=== PATIENT | female | born 1970 | race Caucasian/White ===

== ENCOUNTER → 2017-12-12 14:52 | Outpatient (CLI) | payer OTHER, SELFPAY ==
--- NOTE | 2017-12-12 | CA_ITS ---
PROCEDURE: 2-D M-mode and color Doppler study INDICATIONS FOR THE TEST: Chest pain+ COPD Heart Murmur+ Tobacco Smoking Palpitations+ Fatigue+ Syncope Edema+ Hypertension+Diabetes Mellitus Rheumatic Fever SOB+ALMARAZ Obesity Hyperlipidemia Family History HD+ Additional History PATIENT INFORMATION HEIGHT: 63 WEIGHT: 220 GENDER: Female B/P: 134/81 2-D/M-MODE INTERPRETATION: 2-D MEASUREMENTS OBSERVED VALUES IN CMS Right Ventricular Dimension (RVDd) 2.1 Interventricular Septum (Thickness)(IVsd) 0.8 Left Ventricular Internal Dimensions(LVIDd) 5.0 Left Ventricular Posterior Wall (Thickness)(LVPWd) 0.8 Aortic Root 3.0 Aortic Cusp Separation 2.0 Left Atrial Dimensions (LAD) 2.9 2D 1. Left atrium is mildly enlarged, left ventricle is normal size, there is mild qualitative concentric left ventricular hypertrophy present, visually estimated ejection fraction 55% with no obvious regional wall motion abnormality. 2. The right atrium and right ventricle are normal size and contractility. 3. The aortic valve is minimally thickened and fibrosed. 4. The mitral and tricuspid valvular grossly normal. 5. The pulmonic valve is poorly visualized. 6. No significant pericardial effusion noted. DOPPLER INTERROGATION: Doppler interrogation of the aortic, mitral and tricuspid valvular presence of mild aortic, mild mitral and tricuspid regurgitation, tricuspid and jet velocity insufficient for calculation of the right ventricular systolic pressure, Doppler evidence of impaired LV relaxation seen. CONCLUSION: 1. Mildly enlarged left atrium, normal left ventricular size, mild qualitative concentric left ventricular hypertrophy, visually estimated ejection fraction 55% with no obvious regional wall motion abnormality. Doppler evidence of impaired LV relaxation seen. 2. Mild aortic, mild mitral and tricuspid regurgitation. 3. No significant pericardial effusion noted.
== END ==
PROVIDERS: PCP Nurse Practitioner; Visit Provider Nurse Practitioner
DX: R60.0 Localized edema (principal); R06.02 Shortness of breath
CPT/HCPCS: 93306

== ENCOUNTER 2018-01-04 08:59 | Emergency (ER) | payer OTHER, SELFPAY ==
[2018-01-04 09:03] VITALS: BP 142/83; PULSE 75; RESP 18; TEMP 36.8; O2SAT 98; BMI 38.0
--- NOTE | 2018-01-04 09:09 | HMH.EDGENADL ---
ED Disposition Clinical Impression: Left leg DVT Qualifiers: Affected thrombotic vein of extremity: femoral Chronicity: acute Qualified Code(s): I82.412 - Acute embolism and thrombosis of left femoral vein Acute allergic reaction Qualifiers: Encounter type: initial encounter Qualified Code(s): T78.40XA - Allergy, unspecified, initial encounter Disposition: Home, Self-Care Condition on Discharge: Good Instructions: DI for Deep Vein Thrombosis, DI for General Allergic Reactions Additional Instructions: Go to Dr. Weldon's office now to get prescription and voucher for Xarelto and fill prescription and begin treatment immediately. Follow-up with Dr. Weldon, arrange follow-up appointment when you go to their office today. Additional instructions for ALLERGIC REACTION: See your physician as soon as possible for further evaluation. Return immediately if severe intolerable rash or itching, trouble breathing, or faintness. Prescriptions: Famotidine [Pepcid 20mg Tablet] 20 mg PO BID 5 Days #10 tab hydrOXYzine pamoate [Hydroxyzine Pamoate] 50 mg PO Q6H 5 Days #20 cap predniSONE [Prednisone 20mg Tab] 20 mg PO BID #10 tab Referrals: Mary Merida APRN [Primary Care Provider] - - Critical Care Critical Care Time: No Attestation: On 01/04/18, the high probability of a clinically significant, sudden or life threatening deterioration of the following system(s) required my full and direct attention, intervention and personal management. The time I documented below is in addition to time spent performing reported procedures but includes the following listed in this critical care notation. Medical Decision Making - Loi Inquiry Pt receiving controlled substance: No Vital Signs: 01/04/18 09:03 Temperature 98.3 F Temperature Source Oral Pulse Rate [Right Brachial] 75 Respiratory Rate 18 Blood Pressure [Right Arm] 142/83 Blood Pressure Mean [Right Arm] 102 Blood Pressure Source [Right Arm] Automatic Cuff Blood Pressure Position [Right Arm] Sitting 02 Sat by Pulse Oximetry 98 Oxygen Delivery Method Room Air - Lab Data Lab Results 01/04/18 09:42: WBC 8.3, RBC 4.55, Hgb 12.4, Hct 38.4, MCV 84.5, MCH 27.3, MCHC 32.3, RDW 13.9, Plt Count 411, MPV 7.7, Neut % (Auto) 72.2, Lymph % (Auto) 16.8, [place] % (Auto) 4.6, Eos % (Auto) 5.9, Baso % (Auto) 0.5, Neut # (Auto) 6.0, Lymph # (Auto) 1.4, [place] # (Auto) 0.4, Eos # (Auto) 0.5 H, Baso # (Auto) 0.0 01/04/18 09:42: Sodium 137, Potassium 3.4 L, Chloride 100, Carbon Dioxide 30, Anion Gap 10.4, BUN 13, Creatinine 0.83, Estimated Creat Clear 130, Estimated GFR 74, Est GFR ( Amer) 90, Glucose 105, Calcium 8.8, Total Bilirubin 0.2, AST 19, ALT 29, Alkaline Phosphatase 104, Total Protein 8.0, Albumin 3.2 L, Globulin 4.8 H, Albumin/Globulin Ratio 0.7 L Result diagrams: 01/04/18 09:42 01/04/18 09:42 Orders (Tests/Meds): ED MEDICATIONS Discontinued Medications Generic Name Dose Route Start Last Admin Trade Name Niloq PRN Reason Stop Dose Admin Diphenhydramine HCl 25 mg 01/04/18 09:32 01/04/18 10:01 Benadryl 50mg/1ml Vial IV 01/04/18 09:33 25 mg ONCE ONE Administration Famotidine 20 mg 01/04/18 09:32 01/04/18 10:01 Pepcid 20mg/2ml Vial IV 01/04/18 09:33 20 mg ONCE ONE Administration Methylprednisolone Sodium Succinate 125 mg 01/04/18 09:32 01/04/18 10:01 Solu-Medrol 125mg/2ml Vial IV 01/04/18 09:33 125 mg ONCE ONE Administration - US Data US Images: Lower Extremity Findings Narrative: As per [facility] procedure, ultrasound report received from geology technician: Positive for DVT from superficial femoral down to calf veins, posterior tibial. There is some flow around the clot, appears to be partial obstruction. Medical Decision Narrative: 9:25 AM: Patient now has a similar sensation on the skin of her cheeks bilaterally. Cheeks appear flushed. IV and allergic reaction treatment ordered. 10:40 AM: Discussed with Dr. Wilson
--- NOTE | 2018-01-04 09:29 | NVE_ITS ---
Venous Exam Indications: 729.81 Swelling of limb. IMPRESSIONS 1. There is no evidence of significant Reflux. 2. Deep vein thrombosis involving the left femoral vein, left popliteal vein, Left posterior tib, and Left gastrocnemius Left lower extremity venous duplex evaluation. Doppler flow study including spectral analysis, color and carbajal scale imaging. Location: Emergency department. Patient status: Emergency department. CRITICAL FINDINGS - Reported to: VINCENZO - Read back and verified. - 01/04/18 - 1015 - DVT Tables: Venous flow and imaging: + + + + Location Overall Flow properties + + + + Left common femoral Patent Normal phasicity; spontaneous; normal augmentation; compressible + + + + Left saphenofemoral Patent Compressible junction + + + + Left profunda femoral Patent Compressible + + + + Left femoral Partially occluded Diminished phasicity; diminished spontaneity; diminished augmentation; partially compressible + + + + Left greater saphenous Patent Normal phasicity; spontaneous; normal augmentation; compressible + + + + Left popliteal Partially occluded Diminished phasicity; diminished spontaneity; diminished augmentation; partially compressible + + + + Left posterior tibial Partially occluded Partially compressible + + + + Left peroneal Patent Compressible + + + + Left gastrocnemius Partially occluded Partially compressible + + + + Left soleal Patent Compressible + + + + (Report amended ) Electronically signed by: Luis Antonio Gardner [id number]
[2018-01-04 09:53] LABS: Basophils % 0.5 % (0.1-2.0); Eosinophils # 0.5 K/mm3 (0.0-0.4); Eosinophils % 5.9 % (0.1-12.0); Hematocrit 38.4 % (37.0-47.0); Hemoglobin 12.4 g/dL (12.2-16.2); Lymphocytes # 1.4 K/mm3 (0.7-4.5); Lymphocytes % 16.8 K/mm3 (10-50); Mean Corpuscular HGB Conc 32.3 g/dL (31.8-35.4); Mean Corpuscular Hemoglobin 27.3 pg (27.0-31.2); Mean Corpuscular Volume 84.5 fl (81-99); Mean Platelet Volume 7.7 fl (7.4-10.4); Monocytes # 0.4 K/mm3 (0.1-1.0); Monocytes % 4.6 % (1.7-9.3); Neutrophils % 72.2 % (37.0-80.0); Platelet Count 411 K/mm3 (142-424); Red Blood Count 4.55 M/mm3 (4.20-5.40); Red Cell Distribution Width 13.9 % (11.5-17.5); White Blood Count 8.3 K/mm3 (4.8-10.8)
[2018-01-04 10:05] LABS: Alanine Aminotransferase 29 U/L (12-78); Albumin Level 3.2 gm/dL (3.4-5.0); Anion Gap 10.4 mEq/L (5-15); Aspartate Amino Transferase 19 U/L (15-37); Bilirubin,Total 0.2 mg/dL (0.2-1.0); Blood Urea Nitrogen 13 mg/dL (7-18); Calcium 8.8 mg/dL (8.5-10.1); Carbon Dioxide 30 mmol/L (21.0-32.0); Chloride 100 mmol/L (98-107); Creatinine Clearance Estimated 130 mL/min (0-300); Creatinine,Serum 0.83 mg/dL (0.55-1.02); Estimated Glomerular Filt Rate 74 ml/min (>60); GFR (African American) 90 ML/MIN (>60); Globulin 4.8 gm/dl (1.3-3.2); Glucose 105 mg/dL (74-106); Potassium 3.4 mmoL/L (3.5-5.1); Sodium 137 mmol/L (136-145)
[2018-01-04 10:06] LABS: Albumin/Globulin Ratio 0.7 (1.1-1.8); Alkaline Phosphatase 104 U/L (46-116)
[2018-01-04 11:00] VITALS: BP 142/83; PULSE 75; RESP 16; TEMP 36.8; O2SAT 97
== END 2018-01-04 11:02 | disposition home or self-care (01) ==
PROVIDERS: Emergency Provider Emergency Medicine; PCP Nurse Practitioner
DX: I82.412 Acute embolism and thrombosis of left femoral vein (principal); T78.40XA Allergy, unspecified, initial encounter; Z88.0 Allergy status to penicillin; Z88.2 Allergy status to sulfonamides; Z88.7 Allergy status to serum and vaccine
CPT/HCPCS: 80053; 85025; 93971; 96374; 96375; 99283

== ENCOUNTER → 2018-03-25 14:19 | Outpatient (CLI) | payer OTHER, SELFPAY | PROVIDERS: PCP Nurse Practitioner Family; Visit Provider Nurse Practitioner Family | DX: G47.30 Sleep apnea, unspecified (principal); R06.83 Snoring | CPT/HCPCS: 95806 ==

== ENCOUNTER → 2018-05-21 12:09 | Outpatient (CLI) | payer OTHER, SELFPAY ==
--- NOTE | 2018-05-21 12:10 | XR_ITS ---
XR chest 2V HISTORY: ITS.REASON: SOA ORDERING PHYSICIAN: Jenelle Sue PATIENT AGE: 48 years COMPARISON: None FINDINGS: The cardiomediastinal silhouette and pulmonary vascularity are within normal limits. Patchy density is present in the right perihilar region suspicious for infiltrate in the superior segment of the right lower lobe. The remaining lungs are clear. No acute bony anomalies. IMPRESSION: Right lower lobe pneumonia
== END ==
PROVIDERS: PCP Nurse Practitioner Family; Visit Provider Nurse Practitioner Family
DX: R06.00 Dyspnea, unspecified (principal)
CPT/HCPCS: 71046

== ENCOUNTER 2018-05-22 10:33 | Inpatient (IN) ==
--- NOTE | 2018-05-22 10:54 | Emergency Department Note ---
ED Disposition Clinical Impression: Anemia Qualifiers: Anemia type: unspecified type Qualified Code(s): D64.9 - Anemia, unspecified Disposition: Still a Patient Condition on Discharge: Good Referrals: Jenelle Sue APRN [Primary Care Provider] - - Critical Care Critical Care Time: No Attestation: On , the high probability of a clinically significant, sudden or life threatening deterioration of the following system(s) required my full and direct attention, intervention and personal management. The time I documented below is in addition to time spent performing reported procedures but includes the following listed in this critical care notation. Medical Decision Making - Loi Inquiry Pt receiving controlled substance: No Loi was queried for this patient: Yes Reference #:: [id number] Comment: 8 rxs. last rx gabapentin Vital Signs: 05/22/18 10:33 05/22/18 11:03 05/22/18 11:30 Temperature 98.2 F Temperature Source Oral Pulse Rate [Right Brachial] 69 68 70 Respiratory Rate 18 20 18 Blood Pressure [Right Arm] 111/79 135/69 135/69 Blood Pressure Mean [Right Arm] 89 91 91 Blood Pressure Source [Right Arm] Automatic Cuff Automatic Cuff Automatic Cuff Blood Pressure Position [Right Arm] Supine Sitting Supine 02 Sat by Pulse Oximetry 96 98 100 Oxygen Delivery Method Room Air Room Air Room Air 05/22/18 12:20 Temperature Temperature Source Pulse Rate [Right Brachial] 68 Respiratory Rate 18 Blood Pressure [Right Arm] 136/68 Blood Pressure Mean [Right Arm] 90 Blood Pressure Source [Right Arm] Automatic Cuff Blood Pressure Position [Right Arm] Supine 02 Sat by Pulse Oximetry 100 Oxygen Delivery Method Room Air - Lab Data Lab Results 05/22/18 10:45: WBC 8.8, RBC 3.02 L, Hgb 7.1 L*, Hct 23.5 L*, MCV 77.7 L, MCH 23.3 L, MCHC 30.0 L, RDW 13.9, Plt Count 494 H, MPV 7.4, Neut % (Auto) 61.6, Lymph % (Auto) 30.7, Clark % (Auto) 3.5, Eos % (Auto) 3.4, Baso % (Auto) 0.8, Neut # (Auto) 5.4, Lymph # (Auto) 2.7, Clark # (Auto) 0.3, Eos # (Auto) 0.3, Baso # (Auto) 0.1 05/22/18 10:45: Sodium 138, Potassium 3.3 L, Chloride 102, Carbon Dioxide 29, Anion Gap 10.3, BUN 11, Creatinine 0.96, Estimated Creat Clear 114, Estimated GFR 62, Est GFR ( Amer) 75, Glucose 106, Calcium 8.7, Total Bilirubin 0.2 , AST 18, ALT 38, Alkaline Phosphatase 106, Total Protein 7.7, Albumin 3.5, Globulin 4.2 H, Albumin/Globulin Ratio 0.8 L 05/22/18 10:45: Lactate 0.7 05/22/18 11:35: Stool Occult Blood Negative 05/22/18 11:35: Blood Type A Positive, Antibody Screen Negative Result diagrams: 05/22/18 10:45 05/22/18 10:45 Orders (Tests/Meds): ED MEDICATIONS Discontinued Medications Generic Name Dose Route Start Last Admin Trade Name Freq PRN Reason Stop Dose Admin Iopamidol 75 ml 05/22/18 11:13 05/22/18 11:15 [id number]; 75ml Vial IV 05/22/18 11:14 75 ml ONCE ONE Administration Sodium Chloride 50 ml 05/22/18 11:13 05/22/18 11:15 Rad-Ns 50ml Vial IV 05/22/18 11:14 50 ml ONCE ONE Administration Sodium Chloride 10 ml 05/22/18 11:13 05/22/18 11:15 Rad-Saline Flush 10ml Syringe IV 05/22/18 11:14 10 ml ONCE ONE Administration ORDERS Category Date Time Status Peripheral Smear Review Stat Lab 05/22/18 12:28 Ordered Troponin I Stat Lab 05/22/18 10:45 Received UA [Urinalysis and Microscopic] Stat Lab 05/22/18 12:15 Received Blood Culture Stat Micro 05/22/18 10:45 Received - CT Data CT Scan: Chest Time Received: 11:[address] Reviewed: Yes: I have viewed the radiologist's interpretation Preliminary Findings: Normal/NAD - US Data US Images: Lower Extremity Findings Narrative: As per [facility] procedure, ultrasound report received from preventative maintenance technician: Negative for DVT - ECG Data Tracing #1 EKG interpreted by Freddy Oreilly MD: Rhythm: sinus Rate: [address] [place]: normal Ectopy: none Conduction: normal ST Segment Changes: none T Wave Changes: none Q Waves: none No evidence of acute ischemia or injury Normal electrocardiogram - Physician Consults Physician Consulted: Jenelle Sue NP for Dr. Kruse Time: 12:27 Reason -: Admission Comment/Response: Agrees to admit the patient to the hospital. We discussed the patient's clinical information, including history, exam, laboratory and radiology results and ED course. Per hospital procedure, I will write temporary bridge inpatient orders on the patient. Specific orders requested by the admitting physician: Peripheral blood smear. Transfuse 2 units packed red blood cells. She will order autoimmune testing and anemia testing General Adult HPI - General Chief complaint: Shortness of Breath/Dyspnea Stated complaint: SOA Time Seen by Provider: 05/22/18 11:29 Mode of Arrival: Ambulatory Limitations: No Limitations Description of Symptoms (Recalled from ER Triage Doc. by RN): Pt reports ALMARAZ x3- 4 days. Pt reports if she is sitting still she is not SOA just when up moving around. Pt also reports swelling of LLE x1 week. LLE appears to be larger than RLE in calf area, no pitting edema noted - History of Present Illness HPI narrative: Dyspnea on exertion 3-4 days. Increased left leg swelling for couple of days. History of a DVT in that leg in December. Currently on Xarelto. Saw PCP yesterday for the same and was sent to the emergency room. Left the emergency room without being seen. Had an outpatient chest x-ray yesterday that was read as showing a pneumonia in the left lung. Slight cough due to allergies. No fever. Does not feel like she has a URI. Denies hematemesis, melena, hematochezia. She has had a hysterectomy, does not have menses. - Related Data Home Medications Medication Instructions Recorded Confirmed Esomeprazole Magnesium [Nexium] 40 mg PO DAILY 03/13/18 05/22/18 Gabapentin [Gabapentin 800mg Tab] 800 mg PO HS 03/13/18 05/22/18 Hydrocodone/Acetaminophen [[place] 1 each PO Q8HP PRN 03/13/18 05/22/18 10-325 Tablet] Losartan/Hydrochlorothiazide 1 each PO DAILY 03/13/18 05/22/18 [Hyzaar 100-25 Tablet] PARoxetine HCl [Paxil] 20 mg PO DAILY 03/13/18 05/22/18 Rivaroxaban [Xarelto] 20 mg PO DAILY 03/13/18 05/22/18 Calcium Carbonate/Vitamin D3 1 each PO DAILY 05/22/18 05/22/18 [Calcium 500 + Vit D Caplet] Magnesium Oxide [Magnesium] 400 mg PO DAILY 05/22/18 05/22/18 Allergies Allergy/AdvReac Type Severity Reaction Status Date / Time gum mastic Allergy Unknown Verified 05/21/18 15:43 [From MASTISOL ADHESIVE] measles, mumps, and rubella Allergy Unknown Verified 05/21/18 15:43 vaccine [MEASLES, MUMPS, AND RUBELLA VACCINE] methyl salicylate Allergy Unknown Verified 05/21/18 15:43 [From MASTISOL ADHESIVE] Penicillins [PENICILLINS] Allergy Unknown Verified 05/21/18 15:43 storax Allergy Unknown Verified 05/21/18 15:43 [From MASTISOL ADHESIVE] Sulfa (Sulfonamide Allergy Unknown Verified 05/21/18 15:43 Antibiotics) [SULFA (SULFONAMIDE ANTIBIOTICS)] sumatriptan [From IMITREX] Allergy Unknown Verified 05/21/18 15:43 adhesive AdvReac Mild Rash Verified 05/21/18 15:43 [facility] History I have reviewed the patient's past medical history: Yes Medical History: Reports:: MRSA Denies:: Cancer, Diabetes Mellitus Type 1, Diabetes Mellitus Type 2, Internal Pacemaker Comment: blood clots in L leg Other Surgeries: No: Pacemaker Amputation: No - Social History Smoking Status: Never smoker Alcohol Intake: never Substance Use Type: denies use Occupational Status: employed Housing: house Household Members: spouse - Psychiatric History Expresses thoughts of harming self/others: None Suicide Plan Description: No Plan ROS Obtained: Yes All systems reviewed & no additional complaints - Constitutional Constitutional: Denies fever(s) - ENT Ears, Nose, Mouth, and Throat: Reports nasal discharge - Cardiovascular Cardiovascular: Denies chest pain - Respiratory Respiratory: Yes dyspnea on exertion, No coughing up blood - Gastrointestinal Gastrointestingal: Denies: abdominal pain, vomiting blood, bright red blood in stools, black, tarry stools, vomiting Physical Exam - General General appearance: alert, in no apparent distress - Head Head exam: atraumatic, normocephalic, normal inspection - Eye Eye exam: Present: normal appearance, PERRL, EOMI - ENT ENT exam: Present: mucous membranes moist - Neck Neck exam: Present: normal inspection, full ROM, trachea midline. Absent: meningismus, lymphadenopathy - Chest Chest inspection: Present: normal inspection, symmetric chest wall rise. Absent : tenderness - Respiratory Respiratory exam: Present: normal lung sounds bilaterally. Absent: respiratory distress - Cardiovascular Cardiovascular exam: Present: regular rate, normal rhythm. Absent: JVD - Abdominal Exam Abdominal exam: Present: soft, normal bowel sounds. Absent: distention, tenderness, guarding - Rectal Exam Rectal exam: Present: normal inspection, normal rectal tone. Absent: mass comment: No stool present. Secretions show a slight light brown color, no melena or hematochezia. - Extremities Exam Extremities exam: Present: normal inspection, full ROM, normal capillary refill. Absent: calf tenderness - Neurological Exam Neurological exam: Present: alert, oriented X3 - Psychiatric Psychiatric exam: Present: normal affect, normal mood - Skin Skin exam: Present: warm, dry, intact, pallor
[2018-05-22 11:01] LABS: Basophils # 0.1 K/mm3 (0-0.2); Basophils % 0.8 % (0.1-2.0); Eosinophils # 0.3 K/mm3 (0.0-0.4); Eosinophils % 3.4 % (0.1-12.0); Lymphocytes # 2.7 K/mm3 (0.7-4.5); Lymphocytes % 30.7 K/mm3 (10-50); Mean Corpuscular Hemoglobin 23.3 pg (27.0-31.2); Mean Corpuscular Volume 77.7 fl (81-99); Mean Platelet Volume 7.4 fl (7.4-10.4); Monocytes # 0.3 K/mm3 (0.1-1.0); Monocytes % 3.5 % (1.7-9.3); Neutrophils # 5.4 K/mm3 (1.8-7.8); Neutrophils % 61.6 % (37.0-80.0); Platelet Count 494 K/mm3 (142-424); Red Blood Count 3.02 M/mm3 (4.20-5.40); Red Cell Distribution Width 13.9 % (11.5-17.5); White Blood Count 8.8 K/mm3 (4.8-10.8)
[2018-05-22 11:07] LABS: Hemoglobin 7.1 g/dL (12.2-16.2)
[2018-05-22 11:08] LABS: Hematocrit 23.5 % (37.0-47.0)
[2018-05-22 11:10] LABS: Albumin Level 3.5 gm/dL (3.4-5.0); Albumin/Globulin Ratio 0.8 (1.1-1.8); Anion Gap 10.3 mEq/L (5-15); Bilirubin,Total 0.2 mg/dL (0.2-1.0); Calcium 8.7 mg/dL (8.5-10.1); Globulin 4.2 gm/dl (1.3-3.2); Potassium 3.3 mmoL/L (3.5-5.1); Total Protein,Serum 7.7 gm/dL (6.4-8.2)
--- NOTE | 2018-05-22 12:24 | Non-Invasive Vascular Report ---
"Venous Exam Indications: 729.81 Swelling of limb. Patient has a history of DVT in 02/2018. Patient currently taking Xarelto daily. IMPRESSIONS 1. There is no evidence of significant Reflux. 2. No evidence of deep or superficial vein thrombosis involving the left lower extremity History: Swelling of the left lower extremity. Edema of the left leg. Left lower extremity venous duplex evaluation. Doppler flow study including spectral analysis, color and carbajal scale imaging. Location: Emergency department. Patient status: Emergency department. CRITICAL FINDINGS - Reported to: RUDDY Barker - Read back and verified. - 05/22/18 - 12:15 - LLE negative for DVt or SVT Tables: Venous flow and imaging: + +-------+ + |Location |Overall|Flow properties | + +-------+ + |Left common femoral |Patent |Normal phasicity; spontaneous; | | | |normal augmentation; compressible | + +-------+ + |Left saphenofemoral junction|Patent |Compressible | + +-------+ + |Left profunda femoral |Patent |Compressible | + +-------+ + |Left femoral |Patent |Normal phasicity; spontaneous; | | | |normal augmentation; compressible | + +-------+ + |Left greater saphenous |Patent |Normal phasicity; spontaneous; | | | |normal augmentation; compressible | + +-------+ + |Left popliteal |Patent |Normal phasicity; spontaneous; | | | |normal augmentation; compressible | + +-------+ + |Left posterior tibial |Patent |Compressible | + +-------+ + |Left peroneal |Patent |Compressible | + +-------+ + |Left gastrocnemius |Patent |Compressible | + +-------+ + |Left soleal |Patent |Compressible | + +-------+ + (Report amended ) Electronically signed by: Luis Antonio Gardner [id number]"
[2018-05-22 12:29] LABS: Microscopic, Urine URINE MICROSCOPIC (MICROSCOPIC)
[2018-05-22 12:36] LABS: Appearance,Urine CLEAR (Clear); Bilirubin,Urine Negative (Negative); Blood, Urine Negative (Negative); Color,Urine YELLOW (Yellow); Glucose,Urine (UA) Negative (Negative); Ketones,Urine Negative (Negative); Leukocyte Esterase,Urine Negative (Negative); PH,Urine 7.5 (5.0-8.5); Protein,Urine Negative (Negative); Urobilinogen,Urine 0.2 EU/dl (0.2)
[2018-05-22 12:58] LABS: Bacteria,Urine Trace /lpf
[2018-05-23 02:32] LABS: Hematocrit 25.2 % (37.0-47.0)
[2018-05-23 06:42] LABS: Basophils # 0.1 K/mm3 (0-0.2); Basophils % 0.9 % (0.1-2.0); Eosinophils # 0.3 K/mm3 (0.0-0.4); Eosinophils % 4.3 % (0.1-12.0); Hematocrit 27.7 % (37.0-47.0); Hemoglobin 8.8 g/dL (12.2-16.2); Lymphocytes # 2.5 K/mm3 (0.7-4.5); Lymphocytes % 34.5 K/mm3 (10-50); Mean Corpuscular HGB Conc 31.6 g/dL (31.8-35.4); Mean Corpuscular Hemoglobin 24.5 pg (27.0-31.2); Mean Corpuscular Volume 77.5 fl (81-99); Mean Platelet Volume 7.9 fl (7.4-10.4); Monocytes # 0.3 K/mm3 (0.1-1.0); Monocytes % 4.3 % (1.7-9.3); Neutrophils # 4.1 K/mm3 (1.8-7.8); Neutrophils % 56.1 % (37.0-80.0); Platelet Count 431 K/mm3 (142-424); Red Blood Count 3.57 M/mm3 (4.20-5.40); Red Cell Distribution Width 14.2 % (11.5-17.5); White Blood Count 7.4 K/mm3 (4.8-10.8)
--- NOTE | 2018-05-23 07:38 | Pharmacy Consult Notes ---
[facility] Pharmacy VTE Monitoring - Patient Demographics Admission date: 05/22/18 Report Date: 05/23/18 Time: 07:38 Allergies/Adverse Reactions: Patient Allergies gum mastic [From MASTISOL ADHESIVE] Allergy (Unknown, Verified 05/21/18 15:43) measles, mumps, and rubella vaccine [MEASLES, MUMPS, AND RUBELLA VACCINE] Allergy (Unknown, Verified 05/21/18 15:43) methyl salicylate [From MASTISOL ADHESIVE] Allergy (Unknown, Verified 05/21/18 15:43) Penicillins [PENICILLINS] Allergy (Unknown, Verified 05/21/18 15:43) storax [From MASTISOL ADHESIVE] Allergy (Unknown, Verified 05/21/18 15:43) Sulfa (Sulfonamide Antibiotics) [SULFA (SULFONAMIDE ANTIBIOTICS)] Allergy ( Unknown, Verified 05/21/18 15:43) sumatriptan [From IMITREX] Allergy (Unknown, Verified 05/21/18 15:43) adhesive Adverse Reaction (Mild, Verified 05/21/18 15:43) Rash Height: 1.6 m Weight: 103.901 kg Patient Problems: Current Active Problems Anemia (Acute) - VTE Risk Labs: VTE Related Lab Results Hgb 8.8 g/dL (12.2-16.2) L 05/23/18 06:15 Hct 27.7 % (37.0-47.0) L 05/23/18 06:15 Plt Count 431 K/mm3 (142-424) H 05/23/18 06:15 BUN 11 mg/dL (7-18) 05/22/18 10:45 Creatinine 0.96 mg/dL (0.55-1.02) 05/22/18 10:45 Estimated Creat Clear 114 mL/min (0-300) 05/22/18 10:45 Was VTE Risk Assessment Performed: Yes VTE Score: 2 VTE Risk Level: Low Risk - Prophylaxis VTE Prophylaxis Ordered?: Yes Types of VTE Prophylaxis: TEDS Knee High Location of Applied Device: Bilateral Lower Extremeties Pharmacologic Type: Other (XARELTO ORDERED) - VTE Diagnosis Confirmed Treatment or plan recommended: Continue Current Treatment
--- NOTE | 2018-05-23 13:59 | Consult Report ---
*Admission Date: 05/22/18 *Chief complaint: anemia *History of present illness: 48 yo wf presented to ed yesterday c/o sob for 2-3 days. on admission she was noted to have a hgb of 7.1 with mcv of 77. wbc is normal. plts are slightly elevated. she was admitted and is receiving prbc. she reports she is already feeling better. she has not had iron studies. pt denies si/sx of bleeding, denies melena or brbpr. she is s/p hysterectomy. she has not had issues with anemia in the past. she reports she had a colonoscopy by Dr. Lopez last year showing polyps. she has not had a recent egd. she has an uncle who had colon cancer dx in his 60's. she was dx with unprovoked dvt in her lower ext in december and has been on xarelto. she is tolerating this without problems. I am ask to see regarding anemia. [facility] History Medical History: Reports:: Heart Murmur, Hypertension, MRSA Denies:: Cancer, Diabetes Mellitus Type 1, Diabetes Mellitus Type 2, Internal Pacemaker Other Medical History: Reports: Anemia Other Surgeries: Yes: Appendectomy, Cholecystectomy, , Hysterectomy- Total, Tubal Ligation. No: Pacemaker Amputation: No - *Social History Educational Level: Completed High School Smoking Status: Never smoker Alcohol Intake: current Alcohol Intake Frequency:: a few times a week Substance Use Type: denies use Occupational Status: employed Housing: house Household Members: spouse - Psychiatric History Expresses thoughts of harming self/others: None Suicide Plan Description: No Plan *Family Hx:: No significant family history Review of Systems - Constitutional Reports fatigue, Reports lack of energy - ENT Denies bleeding gums - *Cardiovascular Reports shortness of breath with activity, Denies chest pain, Denies leg swelling - *Respiratory Reports shortness of breath, Denies cough - *Gastrointestinal Denies abdominal pain, Denies change in stools, Denies coffee ground vomit, Denies heartburn, Denies vomiting blood, Denies bright, red blood in stools, Denies black, tarry stools - *Genitourinary Reports absent period - Integumentary/Breasts Denies bleeding lesions - Hematologic/Lymphatic Denies easy bleeding, Denies easy bruising, Denies enlarged lymph nodes Meds Home Medications Medication Instructions Recorded Confirmed Type Esomeprazole Magnesium [Nexium] 40 mg PO DAILY 03/13/18 05/22/18 History Gabapentin [Gabapentin 800mg Tab] 800 mg PO HS 03/13/18 05/22/18 History Hydrocodone/Acetaminophen [[place] 1 each PO Q8HP PRN 03/13/18 05/22/18 History 10-325 Tablet] Losartan/Hydrochlorothiazide 1 each PO DAILY 03/13/18 05/22/18 History [Hyzaar 100-25 Tablet] PARoxetine HCl [Paxil] 20 mg PO DAILY 03/13/18 05/22/18 History Rivaroxaban [Xarelto] 20 mg PO DAILY 03/13/18 05/22/18 History Calcium Carbonate/Vitamin D3 1 each PO DAILY 05/22/18 05/22/18 History [Calcium 500 + Vit D Caplet] Magnesium Oxide [Magnesium] 400 mg PO DAILY 05/22/18 05/22/18 History Furosemide [Furosemide 20mg Tab] 20 mg PO DAILYP PRN 05/23/18 05/23/18 History Ondansetron HCl [Zofran 8mg Tab] 8 mg PO BIDP PRN 05/23/18 05/23/18 History Allergies Allergy/AdvReac Type Severity Reaction Status Date / Time gum mastic Allergy Unknown Verified 05/21/18 15:43 [From MASTISOL ADHESIVE] measles, mumps, and rubella Allergy Unknown Verified 05/21/18 15:43 vaccine [MEASLES, MUMPS, AND RUBELLA VACCINE] methyl salicylate Allergy Unknown Verified 05/21/18 15:43 [From MASTISOL ADHESIVE] Penicillins [PENICILLINS] Allergy Unknown Verified 05/21/18 15:43 storax Allergy Unknown Verified 05/21/18 15:43 [From MASTISOL ADHESIVE] Sulfa (Sulfonamide Allergy Unknown Verified 05/21/18 15:43 Antibiotics) [SULFA (SULFONAMIDE ANTIBIOTICS)] sumatriptan [From IMITREX] Allergy Unknown Verified 05/21/18 15:43 adhesive AdvReac Mild Rash Verified 05/21/18 15:43 Exam Vital signs and Labs for Last 24 Hours: Temp Pulse Resp BP Pulse Ox 98.1 F 71 16 118/66 98 05/23/18 13:45 05/23/18 13:45 05/23/18 13:45 05/23/18 13:45 05/23/18 13:45 Laboratory Results - last 24 hr 05/22/18 11:35: Blood Type A Positive, Antibody Screen Negative, Crossmatch (AHG ) See Detail 05/22/18 15:10: Blood Type Confirm A Positive 05/23/18 02:20: Hgb 8.0 L, Hct 25.2 L 05/23/18 06:15: WBC 7.4, RBC 3.57 L, Hgb 8.8 L, Hct 27.7 L, MCV 77.5 L, MCH 24.5 L, MCHC 31.6 L, RDW 14.2, Plt Count 431 H, MPV 7.9, Neut % (Auto) 56.1, Lymph % (Auto) 34.5, [place] % (Auto) 4.3, Eos % (Auto) 4.3, Baso % (Auto) 0.9, Neut # (Auto) 4.1, Lymph # (Auto) 2.5, [place] # (Auto) 0.3, Eos # (Auto) 0.3, Baso # (Auto) 0.1 I & O for Last 24 hours: Intake & Output 05/21/18 05/22/18 05/23/18 05/24/18 11:59 11:59 11:59 11:59 Intake Total 1741 / 1741 436 / 436 Output Total 450 / 450 Balance 1741 / 1741 -14 / -14 Weight 220 lb 229 lb 1 oz - *Routine HEENT Exam Head: Present: normocephalic, atraumatic ENT: Present: mucous membranes moist - *Routine Neck Exam Present: supple. Absent: lymphadenopathy - Routine Chest/Breast/Axilla Exam Axillae: Absent: lymphadenopathy - *Routine Respiratory Exam Present: CTA bilaterally - *Routine Cardiovascular Exam Present: Normal S1, Normal S2 - *Routine Abdominal Exam Present: soft. Absent: tenderness, distended - *Routine Extremities Exam Absent: edema - *Routine Skin Exam Absent: jaundice - *Routine Neurological Exam Present: alert, oriented X3 - Routine Psychiatric Exam Present: normal affect Internal Medicine - CN: Reslt - Labs CBC & Chem 7: 05/23/18 06:15 05/22/18 10:45 Labs: Short CBC 05/23/18 05/23/18 Range/Units 02:20 06:15 WBC 7.4 (4.8-10.8) K/mm3 Hgb 8.0 L 8.8 L (12.2-16.2) g/dL Hct 25.2 L 27.7 L (37.0-47.0) % Plt Count 431 H (142-424) K/mm3 Assessment and Plan (1) Anemia Current visit: Yes Status: Acute Qualifiers: Anemia type: unspecified type Qualified Code(s): D64.9 - Anemia, unspecified Category: Medical Code(s): D64.9 - Anemia, unspecified - Assessment and plan all Dx Assessment and Plan for all problems:: microcytic anemia with mild thrombocytosis c/w iron deficiency- iron studies have not been drawn and pt is receiving prbc. iron studies at this time would be inaccurate. she will need iron studies in 1-2 weeks for accurate diagnosis. most common reason for iron def is bleeding. she did have colonoscopy last year and denies obvious bleeding however we will ask gi for opinion regarding repeat colonoscopy and egd. she is now on xarelto increasing her risk of occult blood loss. if negative may need to consider capsule endoscopy. less likely but another potential source for microcytic anemia can be hemolysis. we will send screening labs. I will see the pt in the office in 1-2 weeks and check iron studies and if she meets criteria we will plan iron infusions as outpt as she has had a trial of oral iron in the past and did not tolerate. h/o unprovoked dvt- on xarelto +lupus anticoagulant- has f/up scheduled at thank you for referral. please call with questions. Darling Caceres MD
[2018-05-23 15:38] LABS: Hematocrit 33.2 % (37.0-47.0)
[2018-05-23 15:46] LABS: Hemoglobin 10.8 g/dL (12.2-16.2)
--- NOTE | 2018-05-23 17:48 | H&P/Discharge Summary ---
General - General Admission date:: 05/22/18 Discharge date: 05/23/18 *Admission Date: 05/22/18 *History of present illness: 48 yo wf presented to ed yesterday c/o sob for 2-3 days. on admission she was noted to have a hgb of 7.1 with mcv of 77. wbc is normal. plts are slightly elevated. she was admitted and is receiving prbc. she reports she is already feeling better. she has not had iron studies. pt denies si/sx of bleeding, denies melena or brbpr. she is s/p hysterectomy. she has not had issues with anemia in the past. she reports she had a colonoscopy by Dr. Lopez last year showing polyps. she has not had a recent egd. she has an uncle who had colon cancer dx in his 60's. she was dx with unprovoked dvt in her lower ext in december and has been on xarelto. she is tolerating this without problems. I am ask to see regarding anemia. [facility] History I have reviewed the patient's past medical history: Yes Medical History: Reports:: Heart Murmur, Hypertension, MRSA Denies:: Cancer, Diabetes Mellitus Type 1, Diabetes Mellitus Type 2, Internal Pacemaker Other Medical History: Reports: Anemia Other Surgeries: Yes: Appendectomy, Cholecystectomy, , Hysterectomy- Total, Tubal Ligation. No: Pacemaker Amputation: No - *Social History Educational Level: Completed High School Smoking Status: Never smoker Alcohol Intake: current Alcohol Intake Frequency:: a few times a week Substance Use Type: denies use Occupational Status: employed Housing: house Household Members: spouse - Psychiatric History Expresses thoughts of harming self/others: None Suicide Plan Description: No Plan *Family Hx:: No significant family history Review of Systems - Review of Systems Review of systems:: pertinent systems reviewed and negative unless documented below - Constitutional Reports chills, Reports weakness - Eyes Reports blurry vision - ENT Reports dizziness, Denies throat swelling - *Cardiovascular Reports shortness of breath - *Respiratory Reports shortness of breath, Reports shortness of breath with activity - *Gastrointestinal Denies abdominal pain, Denies bright, red blood in stools, Denies black, tarry stools, Denies constant urge to pass stool, Denies vomiting - *Genitourinary Denies urinary incontinence - *Musculoskeletal Denies neck pain - Integumentary/Breasts Denies rash - *Neurologic Reports dizziness, Reports dizziness, Reports weakness - Psychiatric Denies behavioral changes - Endocrine Denies flushing - Hematologic/Lymphatic Denies enlarged lymph nodes Exam Vital signs and Labs for Last 24 Hours: Temp Pulse Resp BP Pulse Ox 98.2 F 69 18 132/63 97 05/23/18 15:26 05/23/18 15:26 05/23/18 15:26 05/23/18 15:26 05/23/18 15:26 Laboratory Results - last 24 hr 05/22/18 11:35: Blood Type A Positive, Antibody Screen Negative, Crossmatch (AHG ) See Detail 05/23/18 02:20: Hgb 8.0 L, Hct 25.2 L 05/23/18 06:14: Lactate Dehydrogenase 204 05/23/18 06:15: WBC 7.4, RBC 3.57 L, Hgb 8.8 L, Hct 27.7 L, MCV 77.5 L, MCH 24.5 L, MCHC 31.6 L, RDW 14.2, Plt Count 431 H, MPV 7.9, Neut % (Auto) 56.1, Lymph % (Auto) 34.5, [place] % (Auto) 4.3, Eos % (Auto) 4.3, Baso % (Auto) 0.9, Neut # (Auto) 4.1, Lymph # (Auto) 2.5, [place] # (Auto) 0.3, Eos # (Auto) 0.3, Baso # (Auto) 0.1 05/23/18 15:31: Hgb 10.8 L D, Hct 33.2 L I & O for Last 24 hours: Intake & Output 05/21/18 05/22/18 05/23/18 05/24/18 11:59 11:59 11:59 11:59 Intake Total 1741 / 1741 942 / 942 Output Total 1250 / 1250 Balance 1741 / 1741 -308 / -308 Weight 220 lb 229 lb 1 oz - Constitutional no acute distress - *Routine HEENT Exam Head: Present: normocephalic Eye: Present: PERRL ENT: Present: mucous membranes moist - *Routine Respiratory Exam Present: CTA bilaterally - *Routine Cardiovascular Exam Present: RRR - *Routine Abdominal Exam Present: soft, normoactive bowel sounds - *Routine Extremities Exam Present: full ROM - *Routine Skin Exam Present: intact - *Routine Neurological Exam Present: alert, oriented X3 - Routine Psychiatric Exam Present: normal affect, normal thought process Hospital Course Hospital Course: Patient received 4 units of packed red cells Consult with hematology see note Today patient states her shortness of breath is better and she feels well and would like to go home. Will follow up with Dr. Caceres as an outpatient for further workup on anemia. Patient is to watch stools for discolorations. Results Labs on day of discharge: Labs from last 24 hours 05/23/18 05/23/18 05/23/18 15:31 06:15 06:14 WBC 7.4 RBC 3.57 L Hgb 10.8 L D 8.8 L Hct 33.2 L 27.7 L MCV 77.5 L MCH 24.5 L MCHC 31.6 L RDW 14.2 Plt Count 431 H MPV 7.9 Neut % (Auto) 56.1 Lymph % (Auto) 34.5 [place] % (Auto) 4.3 Eos % (Auto) 4.3 Baso % (Auto) 0.9 Neut # (Auto) 4.1 Lymph # (Auto) 2.5 [place] # (Auto) 0.3 Eos # (Auto) 0.3 Baso # (Auto) 0.1 Lactate Dehydrogenase 204 Blood Type Antibody Screen Crossmatch ([facility]) 05/23/18 05/22/18 02:20 11:35 WBC RBC Hgb 8.0 L Hct 25.2 L MCV MCH MCHC RDW Plt Count MPV Neut % (Auto) Lymph % (Auto) [place] % (Auto) Eos % (Auto) Baso % (Auto) Neut # (Auto) Lymph # (Auto) [place] # (Auto) Eos # (Auto) Baso # (Auto) Lactate Dehydrogenase Blood Type A Positive Antibody Screen Negative Crossmatch ([facility]) See Detail - Additional Comments Rounded with Dr. Kruse all orders per Uriah DS: Diagnosis - Discharge Diagnosis (1) Anemia Status: Acute Discharge Medications - Medications for Discharge Home Medication List at Discharge: No Action Rivaroxaban [Xarelto] 20 mg PO DAILY Losartan/Hydrochlorothiazide [Hyzaar 100-25 Tablet] 1 each PO DAILY Hydrocodone/Acetaminophen [[place] 10-325 Tablet] 1 each PO Q8HP PRN PRN Reason: pain Gabapentin [Gabapentin 800mg Tab] 800 mg PO HS Esomeprazole Magnesium [Nexium] 40 mg PO DAILY PARoxetine HCl [Paxil] 20 mg PO DAILY Magnesium Oxide [Magnesium] 400 mg PO DAILY Calcium Carbonate/Vitamin D3 [Calcium 500 + Vit D Caplet] 1 each PO DAILY Furosemide [Furosemide 20mg Tab] 20 mg PO DAILYP PRN PRN Reason: SWELLING Ondansetron HCl [Zofran 8mg Tab] 8 mg PO BIDP PRN PRN Reason: Nausea And Vomiting Disposition Disposition: Home, Self-Care
== END 2018-05-23 18:14 | disposition home or self-care (01) ==
LOC: ER 10:33 → 2ND 12:31
PROVIDERS: ADMIT Emergency Medicine; ATTEND Emergency Medicine
DX: D64.9 Anemia, unspecified
CPT/HCPCS: 36415; 71275; 80053; 81001; 82272; 83010; 83605; 83615; 84484; 85014; 85018; 85025; 86850; 87040; 93005; 93971; 99283; G0328; P9016; Q9967

== ENCOUNTER → 2018-05-27 08:10 | Outpatient (CLI) | payer OTHER, SELFPAY ==
[2018-05-27 08:40] LABS: Basophils # 0.1 K/mm3 (0-0.2); Eosinophils # 0.3 K/mm3 (0.0-0.4); Hematocrit 36.9 % (37.0-47.0); Hemoglobin 11.5 g/dL (12.2-16.2); Lymphocytes # 1.6 K/mm3 (0.7-4.5); Lymphocytes % 22.1 K/mm3 (10-50); Mean Corpuscular HGB Conc 31.2 g/dL (31.8-35.4); Mean Corpuscular Hemoglobin 25.2 pg (27.0-31.2); Mean Corpuscular Volume 80.9 fl (81-99); Mean Platelet Volume 7.8 fl (7.4-10.4); Monocytes # 0.3 K/mm3 (0.1-1.0); Monocytes % 4.2 % (1.7-9.3); Neutrophils # 5.1 K/mm3 (1.8-7.8); Neutrophils % 68.7 % (37.0-80.0); Platelet Count 387 K/mm3 (142-424); Red Blood Count 4.56 M/mm3 (4.20-5.40); White Blood Count 7.4 K/mm3 (4.8-10.8)
[2018-05-27 10:18] LABS: Ferritin 10 ng/mL (8-388)
[2018-05-28 08:32] LABS: Iron 54 ug/dL (27-159); UIBC 440 ug/dL (131-425)
[2018-05-28 16:05] LABS: Iron Saturation 11 % (15-55)
== END ==
PROVIDERS: Visit Provider Internal Medicine Medical Oncology
DX: D64.9 Anemia, unspecified (principal)
CPT/HCPCS: 36415; 82728; 83540; 83550; 85025

== ENCOUNTER → 2018-05-31 08:55 | Outpatient (CLI) | payer OTHER, SELFPAY ==
[2018-06-06 11:55] LABS: Occult Blood,Stool Positive (Negative)
== END ==
PROVIDERS: PCP Nurse Practitioner Family; Visit Provider Internal Medicine Gastroenterology
DX: D64.9 Anemia, unspecified (principal)
CPT/HCPCS: 82272; G0328

== ENCOUNTER 2018-06-04 15:32 | Outpatient (CLI) | payer OTHER, SELFPAY ==
[2018-06-04 15:53] VITALS: BP 132/78; PULSE 72; RESP 20; TEMP 36.7; O2SAT 97
[2018-06-04 16:23] VITALS: BP 129/79; PULSE 79; RESP 20; O2SAT 97
[2018-06-04 16:35] VITALS: BP 133/77; PULSE 74; RESP 20; O2SAT 96
== END 2018-06-04 16:40 | disposition home or self-care (01) ==
LOC: INF 15:32
PROVIDERS: PCP Nurse Practitioner Family; Visit Provider Internal Medicine Medical Oncology
DX: D50.9 Iron deficiency anemia, unspecified (principal)
CPT/HCPCS: 96365; J1439

== ENCOUNTER → 2018-06-05 08:52 | Outpatient (CLI) | payer OTHER, SELFPAY ==
[2018-06-06 11:54] LABS: Occult Blood,Stool Positive (Negative)
== END ==
PROVIDERS: PCP Nurse Practitioner Family; Visit Provider Internal Medicine Gastroenterology
DX: D64.9 Anemia, unspecified (principal)
CPT/HCPCS: 82272; G0328

== ENCOUNTER → 2018-06-06 08:41 | Outpatient (CLI) | payer OTHER, SELFPAY ==
[2018-06-06 11:55] LABS: Occult Blood,Stool Positive (Negative)
== END ==
PROVIDERS: PCP Nurse Practitioner Family; Visit Provider Internal Medicine Gastroenterology
DX: D64.9 Anemia, unspecified (principal)
CPT/HCPCS: 82272; G0328

== ENCOUNTER → 2018-06-07 10:21 | Outpatient (CLI) | payer OTHER, SELFPAY ==
[2018-06-07 11:50] LABS: Basophils # 0.1 K/mm3 (0-0.2); Basophils % 1.1 % (0.1-2.0); Eosinophils # 0.2 K/mm3 (0.0-0.4); Eosinophils % 2.5 % (0.1-12.0); Hematocrit 36.6 % (37.0-47.0); Hemoglobin 11.2 g/dL (12.2-16.2); Lymphocytes # 2.4 K/mm3 (0.7-4.5); Lymphocytes % 27.4 K/mm3 (10-50); Mean Corpuscular HGB Conc 30.7 g/dL (31.8-35.4); Mean Corpuscular Hemoglobin 25.4 pg (27.0-31.2); Mean Corpuscular Volume 82.6 fl (81-99); Mean Platelet Volume 7.7 fl (7.4-10.4); Monocytes # 0.4 K/mm3 (0.1-1.0); Monocytes % 4.3 % (1.7-9.3); Neutrophils # 5.7 K/mm3 (1.8-7.8); Neutrophils % 64.7 % (37.0-80.0); Platelet Count 418 K/mm3 (142-424); Red Blood Count 4.43 M/mm3 (4.20-5.40); Red Cell Distribution Width 16.7 % (11.5-17.5); White Blood Count 8.8 K/mm3 (4.8-10.8)
== END ==
PROVIDERS: PCP Emergency Medicine; Visit Provider Nurse Practitioner Family
DX: D64.9 Anemia, unspecified (principal)
CPT/HCPCS: 36415; 85025

== ENCOUNTER 2018-06-12 15:15 | Outpatient (CLI) | payer OTHER, SELFPAY ==
[2018-06-12 16:45] VITALS: BP 121/70; PULSE 67; RESP 20; TEMP 36.6; O2SAT 98
[2018-06-12 17:16] VITALS: BP 137/76; PULSE 69; RESP 20; O2SAT 99
== END 2018-06-12 17:18 | disposition home or self-care (01) ==
LOC: INF 16:53
PROVIDERS: PCP Emergency Medicine; Visit Provider Internal Medicine Medical Oncology
DX: D50.9 Iron deficiency anemia, unspecified (principal)
CPT/HCPCS: 96365; J1439

== ENCOUNTER → 2018-06-14 08:48 | Outpatient (CLI) | payer OTHER, SELFPAY ==
[2018-06-14 09:02] LABS: Hematocrit 39.3 % (37.0-47.0); Hemoglobin 12.2 g/dL (12.2-16.2)
== END ==
PROVIDERS: PCP Emergency Medicine; Visit Provider Internal Medicine Medical Oncology
DX: D50.9 Iron deficiency anemia, unspecified (principal)
CPT/HCPCS: 36415; 85014; 85018

== ENCOUNTER → 2018-06-26 16:16 | Outpatient (CLI) | payer OTHER, SELFPAY ==
[2018-06-26 19:00] LABS: Amphetamine/Metha Screen,Urine Negative ng/mL (<1000); Barbiturates Screen,Urine Negative ng/mL (<200); Benzodiazepines Screen,Urine Negative ng/mL (<200); Cannabinoid Screen,Urine Negative ng/mL (<50); Cocaine Screen,Urine Negative ng/mL (<300); Methadone Screen,Urine Negative ng/mL (<300); Opiate Screen,Urine Positive ng/mL (<300); Phencyclidine Screen,Urine Negative ng/mL (<25)
== END ==
PROVIDERS: Visit Provider Nurse Practitioner Family
DX: Z79.899 Other long term (current) drug therapy (principal)
CPT/HCPCS: 80305

== ENCOUNTER → 2018-07-03 08:17 | Outpatient (CLI) | payer OTHER, SELFPAY ==
[2018-07-03 09:10] LABS: Basophils # 0.1 K/mm3 (0-0.2); Basophils % 1.1 % (0.1-2.0); Eosinophils # 0.2 K/mm3 (0.0-0.4); Hematocrit 40.4 % (37.0-47.0); Hemoglobin 13.1 g/dL (12.2-16.2); Lymphocytes # 2.2 K/mm3 (0.7-4.5); Lymphocytes % 33.4 K/mm3 (10-50); Mean Corpuscular HGB Conc 32.4 g/dL (31.8-35.4); Mean Corpuscular Hemoglobin 27.3 pg (27.0-31.2); Mean Corpuscular Volume 84.3 fl (81-99); Mean Platelet Volume 7.5 fl (7.4-10.4); Monocytes # 0.4 K/mm3 (0.1-1.0); Monocytes % 5.5 % (1.7-9.3); Neutrophils # 3.7 K/mm3 (1.8-7.8); Neutrophils % 56.9 % (37.0-80.0); Platelet Count 301 K/mm3 (142-424); Red Blood Count 4.79 M/mm3 (4.20-5.40); Red Cell Distribution Width 18.1 % (11.5-17.5); White Blood Count 6.4 K/mm3 (4.8-10.8)
[2018-07-03 10:18] LABS: Ferritin 550 ng/mL (8-388)
[2018-07-04 08:31] LABS: Iron 90 ug/dL (27-159); UIBC 200 ug/dL (131-425)
[2018-07-05 18:40] LABS: Iron Saturation 31 % (15-55)
== END ==
PROVIDERS: PCP Nurse Practitioner Family; Visit Provider Internal Medicine Medical Oncology
DX: D50.9 Iron deficiency anemia, unspecified (principal)
CPT/HCPCS: 36415; 82728; 83540; 83550; 85025

== ENCOUNTER → 2018-07-19 15:38 | Outpatient (CLI) | payer OTHER, SELFPAY ==
--- NOTE | 2018-07-19 15:41 | XR_ITS ---
XR wrist LT min 3V HISTORY ITS.REASON: pain ORDERING PHYSICIAN: Genesis Chavez PATIENT AGE: 48 years Comparison: None FINDINGS: No fracture or dislocation. No lytic or blastic change. There is normal mineralization.. The joint spaces are well-preserved. No significant degenerative/arthritic changes. No erosive changes evident.. IMPRESSION: Negative wrist
== END ==
PROVIDERS: PCP Nurse Practitioner Family; Visit Provider Nurse Practitioner Family
DX: M25.532 Pain in left wrist (principal)
CPT/HCPCS: 73110

== ENCOUNTER → 2018-10-21 08:23 | Outpatient (CLI) | payer OTHER, SELFPAY ==
--- NOTE | 2018-10-21 08:25 | XR_ITS ---
XR chest 2V HISTORY: ITS.REASON: cough ORDERING PHYSICIAN: Genesis Chavez PATIENT AGE: 48 years COMPARISON: 05/21/2018 FINDINGS: The cardiomediastinal silhouette and pulmonary vascularity are within normal limits. Increased markings are present in the right lower lung zone suspicious for an area of infiltrate. No effusions. The left lung is clear. No acute bony anomalies. IMPRESSION: Right lower lobe infiltrate
== END ==
PROVIDERS: PCP Nurse Practitioner Family; Visit Provider Nurse Practitioner Family
DX: R05 Cough (principal)
CPT/HCPCS: 71046

== ENCOUNTER → 2018-11-01 11:12 | Outpatient (CLI) | payer OTHER, SELFPAY ==
--- NOTE | 2018-11-01 11:15 | XR_ITS ---
XR chest 2V HISTORY: ITS.REASON: cough ORDERING PHYSICIAN: Jenelle Sue PATIENT AGE: 48 years COMPARISON: PA and lateral chest 10/21/2018 FINDINGS: The cardiomediastinal silhouette and pulmonary vascularity are within normal limits. The subtle ill-defined opacity at the right lung base and infrahilar region is again noted and is basically unchanged. This could represent minimal post inflammatory scarring or atelectasis rather than pneumonic infiltrate. Otherwise the remainder lung landon are clear. Is no pleural fluid. IMPRESSION: Persistent minimal infiltrate right lower lobe versus scarring or atelectasis and I somewhat favor the latter
== END ==
PROVIDERS: PCP Emergency Medicine; Visit Provider Nurse Practitioner Family
DX: R05 Cough (principal)
CPT/HCPCS: 71046

== ENCOUNTER → 2018-11-28 08:20 | Outpatient (CLI) | payer OTHER, SELFPAY ==
[2018-11-28 09:37] LABS: Basophils # 0.1 K/mm3 (0-0.2); Eosinophils # 0.3 K/mm3 (0.0-0.4); Eosinophils % 4.8 % (0.1-12.0); Hematocrit 40.2 % (37.0-47.0); Hemoglobin 13.7 g/dL (12.2-16.2); Lymphocytes # 2.2 K/mm3 (0.7-4.5); Lymphocytes % 30.7 % (10-50); Mean Corpuscular Hemoglobin 30.7 pg (27.0-31.2); Mean Corpuscular Volume 90.1 fl (81-99); Mean Platelet Volume 7.1 fl (7.4-10.4); Monocytes # 0.3 K/mm3 (0.1-1.0); Monocytes % 3.7 % (1.7-9.3); Neutrophils # 4.3 K/mm3 (1.8-7.8); Neutrophils % 59.8 % (37.0-80.0); Platelet Count 373 K/mm3 (142-424); Red Blood Count 4.46 M/mm3 (4.20-5.40); Red Cell Distribution Width 12.7 % (11.5-17.5); White Blood Count 7.3 K/mm3 (4.8-10.8)
[2018-11-28 11:12] LABS: Alanine Aminotransferase 21 U/L (12-78); Albumin Level 3.6 gm/dL (3.4-5.0); Albumin/Globulin Ratio 0.9 (1.1-1.8); Alkaline Phosphatase 86 U/L (46-116); Anion Gap 11.7 mEq/L (5-15); Aspartate Amino Transferase 12 U/L (15-37); Bilirubin,Total 0.3 mg/dL (0.2-1.0); Blood Urea Nitrogen 12 mg/dL (7-18); Calcium 9.1 mg/dL (8.5-10.1); Carbon Dioxide 32 mmol/L (21.0-32.0); Chloride 99 mmol/L (98-107); Creatinine,Serum 0.64 mg/dL (0.55-1.02); Estimated Glomerular Filt Rate 99 ml/min (>60); GFR (African American) 120 ML/MIN (>60); Globulin 3.8 gm/dl (1.3-3.2); Glucose 97 mg/dL (74-106); Potassium 3.7 mmoL/L (3.5-5.1); Sodium 139 mmol/L (136-145); Total Protein,Serum 7.4 gm/dL (6.4-8.2)
== END ==
PROVIDERS: Visit Provider Nurse Practitioner Family
DX: R05 Cough (principal); R25.2 Cramp and spasm
CPT/HCPCS: 36415; 80053; 85025

== ENCOUNTER → 2018-12-17 08:43 | Outpatient (CLI) | payer OTHER, SELFPAY ==
[2018-12-17 08:59] LABS: Basophils # 0.1 K/mm3 (0-0.2); Basophils % 1.1 % (0.1-2.0); Eosinophils # 0.5 K/mm3 (0.0-0.4); Eosinophils % 5.7 % (0.1-12.0); Hematocrit 40.3 % (37.0-47.0); Hemoglobin 13.3 g/dL (12.2-16.2); Lymphocytes # 2.3 K/mm3 (0.7-4.5); Lymphocytes % 26.5 % (10-50); Mean Corpuscular HGB Conc 33.1 g/dL (31.8-35.4); Mean Corpuscular Hemoglobin 29.4 pg (27.0-31.2); Mean Corpuscular Volume 88.7 fl (81-99); Mean Platelet Volume 7.2 fl (7.4-10.4); Monocytes # 0.3 K/mm3 (0.1-1.0); Monocytes % 3.6 % (1.7-9.3); Neutrophils # 5.4 K/mm3 (1.8-7.8); Neutrophils % 63.2 % (37.0-80.0); Platelet Count 364 K/mm3 (142-424); Red Blood Count 4.54 M/mm3 (4.20-5.40); Red Cell Distribution Width 12.9 % (11.5-17.5); White Blood Count 8.6 K/mm3 (4.8-10.8)
[2018-12-17 10:44] LABS: Ferritin 153 ng/mL (8-388)
[2018-12-18 08:28] LABS: Iron 85 ug/dL (27-159); UIBC 202 ug/dL (131-425)
[2018-12-18 14:40] LABS: Iron Saturation 30 % (15-55)
== END ==
PROVIDERS: Visit Provider Internal Medicine Medical Oncology
DX: D64.9 Anemia, unspecified (principal)
CPT/HCPCS: 36415; 82728; 83540; 83550; 85025

== ENCOUNTER → 2019-02-05 15:18 | Outpatient (CLI) | payer OTHER, SELFPAY ==
--- NOTE | 2019-02-05 16:36 | MR_ITS ---
MR head/brain wo con HISTORY: Severe headache with dizziness and blurred vision ITS.REASON: headache ORDERING PHYSICIAN: Rachel Estrada MD PATIENT AGE: 48 years Comparison: None TECHNIQUE: Standard multiplanar multiecho sequences are performed without contrast. FINDINGS: No midline shift, mass effect, intracranial hemorrhage, or hydrocephalus is evident. No evidence of acute infarction. The cerebellopontine angles, cerebellum, and brainstem have an unremarkable appearance. The pituitary, optic chiasm, and craniocervical junction are unremarkable. No large aneurysms are evident. No mastoid effusion or sinus air-fluid level. The temporal gyri are unremarkable in the temporal horns are symmetric. The upper cervical cord is unremarkable. IMPRESSION: Negative MRI of the brain without contrast
--- NOTE | 2019-02-05 16:36 | MR_ITS ---
MR venography head wo con CLINICAL INDICATION: Severe headache ITS.REASON: headache ORDERING PHYSICIAN: Rachel Estrada MD PATIENT AGE: 48 years Comparison: None TECHNIQUE: 2-D [id number] images are obtained with MIP reformats FINDINGS: No evidence of venous sinus thrombosis. The sagittal sinus has an unremarkable appearance. The right transverse sinus is dominant with a flow gap within the medial aspect of the nondominant left transverse sinus and within the torcula heterophile which is felt to be an artifact. This was less apparent on repeat imaging.. IMPRESSION: Probable flow gap artifact in the torcula and nondominant left transverse sinus medially. No definite sinus thrombosis apparent. This could be confirmed with CT angiography/venography if clinically warranted
== END ==
PROVIDERS: PCP Nurse Practitioner Family; Visit Provider Specialist
DX: R51 Headache (principal)
CPT/HCPCS: 70544; 70551

== ENCOUNTER → 2019-02-11 09:44 | Outpatient (POV) | payer OTHER, SELFPAY ==
[2019-02-11 09:51] VITALS: BP 132/78; PULSE 78; RESP 18; O2SAT 98
--- NOTE | 2019-02-11 15:34 | HMH.PMCON ---
Assessment and Plan (1) Degenerative disc disease Current visit: Yes Status: Chronic Qualifiers: Spinal region: lumbar Qualified Code(s): M51.36 - Other intervertebral disc degeneration, lumbar region Category: Medical (2) Lumbar radiculopathy Current visit: Yes Status: Chronic Category: Medical Code(s): M54.16 - Radiculopathy, lumbar region - Assessment and plan all Dx Assessment and Plan for all problems:: We will request notes from Dr. Flanagan's office and pursue a transforaminal epidural injection at the same levels that he performed previously. Patient is gotten up to 80% relief with this injection for several months. Overall has done extremely well with her injections and able to wean herself down to Tylenol. Patient is not on any anticoagulation therapy. She is on anti-inflammatories. I will follow-up with patient after injection reassess her symptoms at that time. Dr. Venegas has reviewed this note and agrees with this plan of care. This note was dictated using voice recognition software and may contain errors or omissions HPI - Data of Consult Consult date: 02/11/19 Requesting Physician: Soheila Blas APRN Primary Care Provider: Jenelle Sue APRN - Consult Narrative Reason for consult: Low back pain History of present illness: Ms. Claudio is a 48 year old female resents today for consultation in regards to her low back pain. Patient has had low back pain for several years. She had his left leg numbness and tingling. She has had multiple epidural injections. Patient is done well with transforaminal injections in the past getting up to 80% relief for several months. Patient has been weaned off of her [place]. Patient overall doing well. She rates her pain a 5 out of 10 today. Patient had a neurostimulator at one time which got infected and was removed. Patient is tried and failed chiropractic therapy, physical therapy. CC: Soheila Blas APRN [facility] History I have reviewed the patient's past medical history: Yes Medical History: Reports:: Deep Vein Thrombosis, Gastroesophageal Reflux Disease(GERD), Gastrointestinal Bleed, Heart Murmur, Hiatal Hernia, Hypertension, Migraine, MRSA Denies:: Cancer, Diabetes Mellitus Type 1, Diabetes Mellitus Type 2, Internal Pacemaker, Lung Disease, Seizures *Have you ever received a pneumonia vaccine?: No *Have you received a flu vaccine this season?: Yes Other Medical History: Reports: Anemia, Other Laterality Cases: Bilateral: Carpal Tunnel Release, Other Other Surgeries: Yes: Appendectomy, Cholecystectomy, , Hysterectomy-Total, Tubal Ligation. No: Pacemaker Amputation: No Fractures: No - *Social History Smoking Status: Never smoker Alcohol Intake: never Alcohol Intake Frequency:: other Substance Use Type: denies use *Occupational Status:: employed Housing: house Household Members: spouse *Travel in the last 8 weeks: None - Psychiatric History Expresses thoughts of harming self/others: None Suicide Plan Description: No Plan Family Hx:: Diabetes, Heart Attack, Hypertension Review of Systems - Review of Systems ROS General: no recent weight change, no fever, no sleep disturbances Respiratory: no cough, no shortness of air, no recurring pulmonary infections Cardiovascular/Peripheral Vascular: No chest pain, No palpitations, no edema, no shortness of breath. Gastrointestinal: no incontinence, normal bowel movements reported Genitourinary: no incontinence Musculoskeletal: Back pain, leg pain Psychiatric: normal mood/ affect Neurological: [denies weakness in extremities], [denies balance issues] Meds Home Medications Medication Instructions Recorded Confirmed Type Esomeprazole Magnesium [Nexium] 40 mg PO DAILY 03/13/18 01/27/19 History Losartan/Hydrochlorothiazide 1 each PO DAILY 03/13/18 01/27/19 History [Hyzaar 100-25 Tablet] Calcium Carbonate/Vitamin D3 1 each PO DAILY 05/22/18 01/27/19 History [Ca
--- NOTE | 2019-02-11 15:37 | P.CONS_ITS ---
Assessment and Plan (1) Degenerative disc disease Current visit: Yes Status: Chronic Qualifiers: Spinal region: lumbar Qualified Code(s): M51.36 - Other intervertebral disc degeneration, lumbar region Category: Medical (2) Lumbar radiculopathy Current visit: Yes Status: Chronic Category: Medical Code(s): M54.16 - Radiculopathy, lumbar region - Assessment and plan all Dx Assessment and Plan for all problems:: We will request notes from Dr. Flanagan's office and pursue a transforaminal epidural injection at the same levels that he performed previously. Patient is gotten up to 80% relief with this injection for several months. Overall has done extremely well with her injections and able to wean herself down to Tylenol. Patient is not on any anticoagulation therapy. She is on anti- inflammatories. I will follow-up with patient after injection reassess her symptoms at that time. Dr. Venegas has reviewed this note and agrees with this plan of care. This note was dictated using voice recognition software and may contain errors or omissions HPI - Data of Consult Consult date: 02/11/19 Requesting Physician: Soheila Blas APRN Primary Care Provider: Jenelle Sue APRN - Consult Narrative Reason for consult: Low back pain History of present illness: Ms. Claudio is a 48 year old female resents today for consultation in regards to her low back pain. Patient has had low back pain for several years. She had his left leg numbness and tingling. She has had multiple epidural injections. Patient is done well with transforaminal injections in the past getting up to 80% relief for several months. Patient has been weaned off of her [place]. Patient overall doing well. She rates her pain a 5 out of 10 today. Patient had a neurostimulator at one time which got infected and was removed. Patient is tried and failed chiropractic therapy, physical therapy. CC: Soheila Blas APRN [facility] History I have reviewed the patient's past medical history: Yes Medical History: Reports:: Deep Vein Thrombosis, Gastroesophageal Reflux Disease(GERD), Gastrointestinal Bleed, Heart Murmur, Hiatal Hernia, Hypertension, Migraine, MRSA Denies:: Cancer, Diabetes Mellitus Type 1, Diabetes Mellitus Type 2, Internal Pacemaker, Lung Disease, Seizures *Have you ever received a pneumonia vaccine?: No *Have you received a flu vaccine this season?: Yes Other Medical History: Reports: Anemia, Other Laterality Cases: Bilateral: Carpal Tunnel Release, Other Other Surgeries: Yes: Appendectomy, Cholecystectomy, , Hysterectomy- Total, Tubal Ligation. No: Pacemaker Amputation: No Fractures: No - *Social History Smoking Status: Never smoker Alcohol Intake: never Alcohol Intake Frequency:: other Substance Use Type: denies use *Occupational Status:: employed Housing: house Household Members: spouse *Travel in the last 8 weeks: None - Psychiatric History Expresses thoughts of harming self/others: None Suicide Plan Description: No Plan Family Hx:: Diabetes, Heart Attack, Hypertension Review of Systems - Review of Systems ROS General: no recent weight change, no fever, no sleep disturbances Respiratory: no cough, no shortness of air, no recurring pulmonary infections Cardiovascular/Peripheral Vascular: No chest pain, No palpitations, no edema, no shortness of breath. Gastrointestinal: no incontinence, normal bowel movements reported Genitourinary: no incontinence Musculoskeletal: Back pain, leg pain Psychiatric: normal mood/ affect
--- NOTE | 2019-03-05 09:18 | PC.NURSE ---
AFTER SPEAKING WITH PT PROVIDER DOMENICO EATON, LETTER FOR APPROVAL TO DISCONTINUE XARELTO 3 DAYS PRIOR TO PROCEDURE WAS FAXED TO [facility] DIANA REGAN APRN. FOLLOWED UP TODAY, ANILA STATED THAT NURSE WILL HAVE PROVIDER SIGN AND FAX TOMORROW WHEN SHE IS BACK IN CLINIC.
== END ==
PROVIDERS: PCP Nurse Practitioner Family; Visit Provider Clinical Nurse Specialist Family Health
DX: M51.16 Intervertebral disc disorders with radiculopathy, lumbar region (principal)
CPT/HCPCS: 99202

== ENCOUNTER → 2019-03-03 11:10 | Outpatient (CLI) | payer OTHER, SELFPAY ==
--- NOTE | 2019-03-03 11:14 | XR_ITS ---
XR chest 2V HISTORY: ITS.REASON: productive cough ORDERING PHYSICIAN: Genesis Chavez APRN PATIENT AGE: 49 years COMPARISON: 11 07 18 FINDINGS: The cardiomediastinal silhouette and pulmonary vascularity are within normal limits. There is chronic increased density in the right lower lung zone which is felt to be due to summation density from overlying vessels not redemonstrated on the lateral view. No lobar consolidation or collapse. Artifact noted over the left hemithorax. No acute bony findings IMPRESSION: No acute finding.
== END ==
PROVIDERS: PCP Nurse Practitioner Family; Visit Provider Nurse Practitioner Family
DX: R05 Cough (principal)
CPT/HCPCS: 71046

== ENCOUNTER → 2019-03-20 09:11 | Outpatient (CLI) | payer OTHER, SELFPAY ==
--- NOTE | 2019-03-20 09:13 | NVE_ITS ---
Venous Exam Indications: 729.5 Pain in limb. 729.81 Swelling of limb. IMPRESSIONS 1. There is no evidence of significant Reflux. 2. No evidence of deep or superficial vein thrombosis involving the left lower extremity History: PMH: Deep vein thrombosis. Pt on Xarelto. Left lower extremity venous duplex evaluation. Doppler flow study including spectral analysis, color and carbajal scale imaging. Location: Vascular laboratory. Patient status: Outpatient. CRITICAL FINDINGS - Reported to: Gwyn Kruse's office - 03/20/2019 - 9:42 am - Neg for DVT Tables: Venous flow and imaging: + +-------+ + Location Overall Flow properties + +-------+ + Left common femoral Patent Normal phasicity; spontaneous; normal augmentation; compressible + +-------+ + Left saphenofemoral junction Patent Compressible + +-------+ + Left profunda femoral Patent Compressible + +-------+ + Left femoral Patent Normal phasicity; spontaneous; normal augmentation; compressible + +-------+ + Left greater saphenous Patent Normal phasicity; spontaneous; normal augmentation; compressible + +-------+ + Left popliteal Patent Normal phasicity; spontaneous; normal augmentation; compressible + +-------+ + Left posterior tibial Patent Compressible + +-------+ + Left peroneal Patent Compressible + +-------+ + Left gastrocnemius Patent Compressible + +-------+ + Left soleal Patent Compressible + +-------+ + (Report amended ) Electronically signed by: Luis Antonio Gardner [id number]
== END ==
PROVIDERS: PCP Emergency Medicine; Visit Provider Nurse Practitioner Family
DX: M79.662 Pain in left lower leg (principal); M79.89 Other specified soft tissue disorders
CPT/HCPCS: 93971

== ENCOUNTER → 2019-04-03 10:49 | Outpatient (CLI) | payer OTHER, SELFPAY ==
[2019-04-08 03:36] LABS: F010-IgE Sesame Seed <0.10 kU/L (Class 0); F017-IgE Hazelnut (Filbert) <0.10 kU/L (Class 0); F018-IgE Brazil Nut <0.10 kU/L (Class 0); F020-IgE Almond <0.10 kU/L (Class 0)
[2019-04-09 17:36] LABS: F202-IgE Cashew Nut 0.13 kU/L (Class 0/I); F256-IgE Walnut <0.10 kU/L (Class 0)
== END ==
PROVIDERS: Visit Provider Nurse Practitioner
DX: T78.1XXA Other adverse food reactions, not elsewhere classified, initial encounter (principal)
CPT/HCPCS: 36415; 86003

== ENCOUNTER → 2019-04-15 11:21 | Outpatient (POV) | payer OTHER, SELFPAY | PROVIDERS: Visit Provider Otolaryngology | DX: Z00.00 Encounter for general adult medical examination without abnormal findings (principal) ==

== ENCOUNTER → 2019-04-21 15:12 | Outpatient (POV) | payer OTHER, SELFPAY ==
[2019-04-21 15:37] VITALS: BP 124/65; PULSE 74; RESP 18; O2SAT 98; BMI 38.9
--- NOTE | 2019-04-22 08:34 | HMH.PAINSOAP ---
[facility] Pain Management SOAP Note Subjective:: Patient is a pleasant 49-year-old white female who presents today for follow-up. Patient has had low back pain for several years. She has left leg numbness and tingling. She has had multiple epidural injections which have been very effective for her. Patient had a neurostimulator at one time however it got infected and was removed. She rates her pain today a 5 out of 10. Patient was up a sheet of Dr. Flanagan that one time where he had her on [place] and gabapentin she was only taking this as needed and completely weaned off recently. However patient is on blood thinners and is unable to come off of it due to a TIA 10 days ago. She would like to move forward with epidurals but at this time we cannot. ROS General: no recent weight change, no fever, no sleep disturbances Respiratory: no cough, no shortness of air, no recurring pulmonary infections Cardiovascular/Peripheral Vascular: No chest pain, No palpitations, no edema, no shortness of breath. Gastrointestinal: no incontinence, normal bowel movements reported Genitourinary: no incontinence Musculoskeletal: Back pain, leg pain Psychiatric: normal mood/ affect Neurological: [denies weakness in extremities], [denies balance issues] Objective:: Physical Exam General: Alert and oriented x3, no acute distress, pleasant and cooperative, [on room air] Lungs: Resps E/U, Symmetrical chest expansion, Eyes: PERRL Musculoskeletal: Flexion and extension of lumbar spine somewhat guarded secondary to pain, deep tendon reflexes normal, strength in upper and lower extremities [5/5], [abnormal gait noted] Neurological: speech clear, grinding wheel inspector equal, no gross sensory deficits Assessment:: Degenerative disc disease lumbar spine with lumbar radiculopathy Plan:: Due to her inability to come off of her anticoagulation therapy and on discussion in regards to her wanting to do interventional treatments. And her continuing to work. After discussion with Dr. Venegas we will give her low-dose [place] 10 mg 1 p.o. 3 times daily as needed. Patient can only take this as needed. We will also refill her gabapentin 400 mg 1 p.o. twice daily. Patient has been prescribed a controlled substance after being counseled on the medication, medication safety, and possible side effects. BEREKET report has been obtained and reviewed prior to prescription and found to be appropriate. Opioid contract was reviewed and signed by the patient, and that they have agreed to all of the terms set forth by our compliance program. Dr. Venegas has reviewed this note and agrees with this plan of care. This note was dictated using voice recognition software and may contain errors or omissions
--- NOTE | 2019-04-22 08:37 | P.CONS_ITS ---
[facility] Pain Management SOAP Note Subjective:: Patient is a pleasant 49-year-old white female who presents today for follow-up. Patient has had low back pain for several years. She has left leg numbness and tingling. She has had multiple epidural injections which have been very effective for her. Patient had a neurostimulator at one time however it got infected and was removed. She rates her pain today a 5 out of 10. Patient was up a sheet of Dr. Flanagan that one time where he had her on [place] and gabapentin she was only taking this as needed and completely weaned off recently. However patient is on blood thinners and is unable to come off of it due to a TIA 10 days ago. She would like to move forward with epidurals but at this time we cannot. ROS General: no recent weight change, no fever, no sleep disturbances Respiratory: no cough, no shortness of air, no recurring pulmonary infections Cardiovascular/Peripheral Vascular: No chest pain, No palpitations, no edema, no shortness of breath. Gastrointestinal: no incontinence, normal bowel movements reported Genitourinary: no incontinence Musculoskeletal: Back pain, leg pain Psychiatric: normal mood/ affect Neurological: [denies weakness in extremities], [denies balance issues] Objective:: Physical Exam General: Alert and oriented x3, no acute distress, pleasant and cooperative, [on room air] Lungs: Resps E/U, Symmetrical chest expansion, Eyes: PERRL Musculoskeletal: Flexion and extension of lumbar spine somewhat guarded second yessi to pain, deep tendon reflexes normal, strength in upper and lower extremities [5/5], [abnormal gait noted] Neurological: speech clear, taker away equal, no gross sensory deficits Assessment:: Degenerative disc disease lumbar spine with lumbar radiculopathy Plan:: Due to her inability to come off of her anticoagulation therapy and on discussio n in regards to her wanting to do interventional treatments. And her continuing to work. After discussion with Dr. Venegas we will give her low-dose [place] 10 mg 1 p.o. 3 times daily as needed. Patient can only take this as needed. We will also refill her gabapentin 400 mg 1 p.o. twice daily. Patient has been prescribed a controlled substance after being counseled on the medication, medication safety, and possible side effects. BEREKET report has been obtained and reviewed prior to prescription and found to be appropriate. Opioid contract was reviewed and signed by the patient, and that they have agreed to all of the terms set forth by our compliance program. Dr. Venegas has reviewed this note and agrees with this plan of care. This note was dictated using voice recognition software and may contain errors or omissions
== END ==
PROVIDERS: PCP Nurse Practitioner Family; Visit Provider Clinical Nurse Specialist Family Health
DX: M51.16 Intervertebral disc disorders with radiculopathy, lumbar region (principal)
CPT/HCPCS: 99212

== ENCOUNTER → 2019-04-23 09:06 | Outpatient (CLI) | payer OTHER, SELFPAY ==
[2019-04-23 10:56] LABS: Amphetamine/Metha Screen,Urine Negative ng/mL (<1000); Barbiturates Screen,Urine Negative ng/mL (<200); Benzodiazepines Screen,Urine Negative ng/mL (<200); Cannabinoid Screen,Urine Negative ng/mL (<50); Cocaine Screen,Urine Negative ng/mL (<300); Methadone Screen,Urine Negative ng/mL (<300); Opiate Screen,Urine Positive ng/mL (<300); Phencyclidine Screen,Urine Negative ng/mL (<25)
[2019-04-28 19:09] LABS: Codeine Negative (Cutoff=100); Hydrocodone Positive (.); Hydromorphone Positive (.); Morphine Negative (Cutoff=100)
[2019-05-02 17:42] LABS: Opiates Positive (.)
== END ==
PROVIDERS: Visit Provider Clinical Nurse Specialist Family Health
DX: Z79.899 Other long term (current) drug therapy (principal)
CPT/HCPCS: 80305; 80361; 80365; G0480

== ENCOUNTER → 2019-04-25 13:32 | Outpatient (CLI) | payer OTHER, SELFPAY ==
--- NOTE | 2019-04-25 13:33 | CI_ITS ---
Cerebrovascular Exam Indications: 435.9 Unspecified transient cerebral ischemia. IMPRESSIONS 1. The bilateral vertebral arteries are patent with normal antegrade flow. 2. Study suggests less than 20% stenosis involving the right internal carotid artery and the left internal carotid artery. History: Risk factors: Hypertension. Carotid duplex study. Complete study and Doppler flow study including spectral analysis, color and carbajal scale imaging. Location: Vascular laboratory. Patient status: Outpatient. Tables: Arterial flow: + +--------+--------+ Location V mike V ed + +--------+--------+ Right CCA - proximal 85.6cm/s 25.9cm/s + +--------+--------+ Right CCA - distal 84.1cm/s 25.1cm/s + +--------+--------+ Right ECA 107cm/s -------- + +--------+--------+ Right ICA - proximal 53.5cm/s 19.9cm/s + +--------+--------+ Right ICA - mid 92.1cm/s 34.2cm/s + +--------+--------+ Right ICA - distal 95.9cm/s 42.5cm/s + +--------+--------+ Right vertebral 45.8cm/s -------- + +--------+--------+ Left CCA - proximal 88.2cm/s 18.7cm/s + +--------+--------+ Left CCA - distal 73.9cm/s 23.7cm/s + +--------+--------+ Left ECA 73.3cm/s -------- + +--------+--------+ Left ICA - proximal 93.7cm/s 27.6cm/s + +--------+--------+ Left ICA - mid 93.3cm/s 32.4cm/s + +--------+--------+ Left ICA - distal 92.9cm/s 33.3cm/s + +--------+--------+ Left vertebral 45.8cm/s -------- + +--------+--------+ Velocity ratios: + + + + + + Right, V sys Right, V ed Left, V sys Left, V ed + + + + + + Max ICA/dist CCA 1.14 1.69 1.27 1.41 + + + + + + (Report amended ) Electronically signed by: Luis Antonio Gardner [id number]
== END ==
PROVIDERS: PCP Emergency Medicine; Visit Provider Nurse Practitioner Family
DX: I99.8 Other disorder of circulatory system (principal)
CPT/HCPCS: 93880

== ENCOUNTER → 2019-05-02 12:53 | Outpatient (CLI) | payer OTHER, SELFPAY ==
--- NOTE | 2019-05-02 13:02 | XR_ITS ---
XR elbow LT min 3V COMPARISON: None HISTORY: Left elbow pain TECHNIQUE: 3 views left elbow FINDINGS: There is no fracture or dislocation of the soft tissues are normal and is no abnormal fat pad sign. IMPRESSION: Negative left elbow
== END ==
PROVIDERS: PCP Nurse Practitioner Family; Visit Provider Nurse Practitioner Family
DX: M25.522 Pain in left elbow (principal)
CPT/HCPCS: 73080

== ENCOUNTER → 2019-05-07 12:06 | Outpatient (CLI) | payer OTHER, SELFPAY ==
[2019-05-07 12:09] LABS: MANUAL DIFFERENTIAL MANUAL DIFFERENTIAL (MANUAL DIFF)
[2019-05-07 12:29] LABS: Basophils # 0.1 K/mm3 (0-0.2); Basophils % 0.9 % (0.1-2.0); Eosinophils # 0.3 K/mm3 (0.0-0.4); Eosinophils % 3.7 % (0.1-12.0); Hematocrit 37.4 % (37.0-47.0); Lymphocytes # 2.7 K/mm3 (0.7-4.5); Lymphocytes % 30.3 % (10-50); Mean Corpuscular HGB Conc 32.2 g/dL (31.8-35.4); Mean Corpuscular Hemoglobin 27.8 pg (27.0-31.2); Mean Corpuscular Volume 86.4 fl (81-99); Monocytes # 0.3 K/mm3 (0.1-1.0); Monocytes % 3.5 % (1.7-9.3); Neutrophils # 5.6 K/mm3 (1.8-7.8); Neutrophils % 61.7 % (37.0-80.0); Platelet Count 382 K/mm3 (142-424); Red Blood Count 4.33 M/mm3 (4.20-5.40); Red Cell Distribution Width 12.7 % (11.5-17.5)
[2019-05-07 15:22] LABS: Eosinophils % 2 % (0-3); Lymphocytes % 27 % (10-50); Monocytes % 3 % (2-9); Neutrophils % 68 % (42-76); Platelet Estimate Normal; RBC Morphology Normal; Total Cells Counted 100
== END ==
PROVIDERS: Visit Provider Emergency Medicine
DX: R58 Hemorrhage, not elsewhere classified (principal); T14.8XXA Other injury of unspecified body region, initial encounter
CPT/HCPCS: 36415; 85007; 85014; 85018; 85048; 85049

== ENCOUNTER → 2019-06-23 13:45 | Outpatient (CLI) | payer OTHER, SELFPAY | PROVIDERS: Visit Provider Nurse Practitioner Family | DX: S61.200A Unspecified open wound of right index finger without damage to nail, initial encounter (principal) | CPT/HCPCS: 87070; 87077; 87186; 87205 ==

== ENCOUNTER → 2019-06-23 15:26 | Outpatient (POV) | payer OTHER, SELFPAY ==
--- NOTE | 2019-06-24 08:31 | HMH.PAINSOAP ---
[facility] Pain Management SOAP Note Subjective:: Patient is a pleasant 49-year-old white female who presents today for follow-up and medication refills. She rates her pain a 7 out of 10 which is increased due to her taking care of her mother at this time. She is currently on a low-dose [place] 10 mg 1 p.o. 3 times daily as needed and gabapentin 400 mg 1 p.o. twice daily. She denies side effects to her medication. Patient's BEREKET #[id number] reviewed and appropriate urine drug screens have been appropriate. Patient would like to move forward with injection therapy however due to recent TIA she is unable to come off of her blood thinners. ROS General: no recent weight change, no fever, no sleep disturbances Respiratory: no cough, no shortness of air, no recurring pulmonary infections Cardiovascular/Peripheral Vascular: No chest pain, No palpitations, no edema, no shortness of breath. Gastrointestinal: no incontinence, normal bowel movements reported Genitourinary: no incontinence Musculoskeletal: Back pain, leg pain Psychiatric: normal mood/ affect Neurological: [denies weakness in extremities], [denies balance issues] Objective:: Physical Exam General: Alert and oriented x3, no acute distress, pleasant and cooperative, [on room air] Lungs: Resps E/U, Symmetrical chest expansion, Eyes: PERRL Musculoskeletal: Flexion and extension of lumbar spine somewhat guarded secondary to pain, deep tendon reflexes normal, strength in upper and lower extremities [5/5], [abnormal gait noted] Neurological: speech clear, ultrasound coordinator equal, no gross sensory deficits Assessment:: Degenerative disc disease lumbar spine with lumbar radiculopathy Plan:: We will continue her [place] 10 mg 1 p.o. 3 times daily and gabapentin she does not need refills at this time she is in contact her office when she does. Bereket and urine drug screens have been appropriate. We will continue to monitor. If it is patient can come off of her anticoagulation therapy she would like to begin injection therapy. Patient has been prescribed a controlled substance after being counseled on the medication, medication safety, and possible side effects. BEREKET report has been obtained and reviewed prior to prescription and found to be appropriate. Opioid contract was reviewed and signed by the patient, and that they have agreed to all of the terms set forth by our compliance program. Dr. Venegas has reviewed this note and agrees with this plan of care. This note was dictated using voice recognition software and may contain errors or omissions Pain Management Hx Components *Have you ever received a pneumonia vaccine?: Yes *Have you received a flu vaccine this season?: No - *Social History *Occupational Status:: employed *Travel in the last 8 weeks: None
--- NOTE | 2019-06-24 08:35 | P.CONS_ITS ---
[facility] Pain Management SOAP Note Subjective:: Patient is a pleasant 49-year-old white female who presents today for follow-up and medication refills. She rates her pain a 7 out of 10 which is increased due to her taking care of her mother at this time. She is currently on a low-dose [place] 10 mg 1 p.o. 3 times daily as needed and gabapentin 400 mg 1 p.o. twice daily. She denies side effects to her medication. Patient's BEREKET #[id number] reviewed and appropriate urine drug screens have been appropriate. Patient would like to move forward with injection therapy however due to recent TIA she is unable to come off of her blood thinners. ROS General: no recent weight change, no fever, no sleep disturbances Respiratory: no cough, no shortness of air, no recurring pulmonary infections Cardiovascular/Peripheral Vascular: No chest pain, No palpitations, no edema, no shortness of breath. Gastrointestinal: no incontinence, normal bowel movements reported Genitourinary: no incontinence Musculoskeletal: Back pain, leg pain Psychiatric: normal mood/ affect Neurological: [denies weakness in extremities], [denies balance issues] Objective:: Physical Exam General: Alert and oriented x3, no acute distress, pleasant and cooperative, [on room air] Lungs: Resps E/U, Symmetrical chest expansion, Eyes: PERRL Musculoskeletal: Flexion and extension of lumbar spine somewhat guarded secondary to pain, deep tendon reflexes normal, strength in upper and lower extremities [5/5], [abnormal gait noted] Neurological: speech clear, sheriff deputy equal, no gross sensory deficits Assessment:: Degenerative disc disease lumbar spine with lumbar radiculopathy Plan:: We will continue her [place] 10 mg 1 p.o. 3 times daily and gabapentin she does not need refills at this time she is in contact her office when she does. Bereket and urine drug screens have been appropriate. We will continue to monitor. If it is patient can come off of her anticoagulation therapy she would like to begin injection therapy. Patient has been prescribed a controlled substance after being counseled on the medication, medication safety, and possible side effects. BEREKET report has been obtained and reviewed prior to prescription and found to be appropriate. Opioid contract was reviewed and signed by the patient, and that they have agreed to all of the terms set forth by our compliance program. Dr. Venegas has reviewed this note and agrees with this plan of care. This note was dictated using voice recognition software and may contain errors or omissions Pain Management Hx Components *Have you ever received a pneumonia vaccine?: Yes *Have you received a flu vaccine this season?: No - *Social History *Occupational Status:: employed *Travel in the last 8 weeks: None
--- NOTE | 2019-07-07 10:40 | PC.NURSE ---
LYRICA 75MG BID WITH 2 REFILLS CALLED INTO CLINIC PHARMACY PER PROVIDER ORDER
== END ==
PROVIDERS: PCP Nurse Practitioner Family; Visit Provider Clinical Nurse Specialist Family Health
DX: M51.16 Intervertebral disc disorders with radiculopathy, lumbar region (principal)
CPT/HCPCS: 99212

== ENCOUNTER → 2019-07-25 14:14 | Outpatient (CLI) | payer OTHER, SELFPAY ==
[2019-07-25 14:18] LABS: Microscopic, Urine URINE MICROSCOPIC (MICROSCOPIC)
[2019-07-25 14:40] LABS: Appearance,Urine CLEAR (Clear); Bilirubin,Urine Negative (Negative); Blood, Urine Negative (Negative); Color,Urine YELLOW (Yellow); Glucose,Urine (UA) Negative (Negative); Ketones,Urine Negative (Negative); Leukocyte Esterase,Urine Negative (Negative); Nitrate,Urine Negative (Negative); PH,Urine 6.5 (5.0-8.5); Protein,Urine Negative (Negative); Specific Gravity, Urine >= 1.030 (1.005-1.030); Urobilinogen,Urine 0.2 EU/dl (0.2)
[2019-07-25 14:46] LABS: Creatinine,Urine Random 144 mg/dL (20-320); Total Protein,Urine Random 30.1 mg/dL (0.0-11.9)
[2019-07-25 15:14] LABS: Bacteria,Urine Trace /lpf
== END ==
PROVIDERS: Visit Provider Nurse Practitioner Family
DX: I73.00 Raynaud's syndrome without gangrene (principal)
CPT/HCPCS: 81001; 82570; 84155

== ENCOUNTER → 2019-08-05 08:35 | Outpatient (POV) | payer OTHER, SELFPAY ==
[2019-08-05 08:36] VITALS: BP 147/82; PULSE 79; RESP 18; O2SAT 98; BMI 40.2
--- NOTE | 2019-08-05 08:58 | HMH.PAINSOAP ---
[facility] Pain Management SOAP Note Subjective:: Patient is a pleasant 49-year-old white female who presents today for follow-up. She is being treated for pain secondary to lupus. Patient says she is having increased pain to her lower extremities. She says this is been ongoing and it has worsened over the last few weeks. Patient is currently managed with [place] 10 mg 1 tablet p.o. 3 times daily and [place] 75 mg 1 tablet p.o. twice daily. She denies any side effects to her medications. Patient says that she is not sure if she is having a lupus flareup or if it is something else going on. She did discuss with Adithya Blas APRN possible spinal cord stimulation, however, the patient is on anticoagulation therapy for TIAs. Patient says that she is unable to come off her anticoagulation therapy at this time. Patient would like to discuss other alternative therapies for control. She is also on Cymbalta 60 mg 1 tablet p.o. really. She does say that Cymbalta has helped her tremendously. She does deny any side effects to her medications. Patient has tried taking diclofenac in the past, but developed a severe GI bleed. As a result, she no longer takes anti-inflammatories orally. Patient also takes tizanidine and says that it does not give her much relief. She is continuing with a home stretching program. Her Loi #[id number] has been reviewed and is appropriate along with previous urine drug screens. Review of Systems General: No recent weight changes, no fever, no sleep disturbances Respiratory: No cough, no shortness of air, no recurring pulmonary infections Cardiovascular/peripheral vascular: No chest pain, no palpitations, no edema, no shortness of breath Gastrointestinal: No new onset incontinence, normal bowel movements reported Genitourinary: No new onset incontinence Musculoskeletal: Back pain, bilateral leg pain Psychiatric: Normal mood/affect Neurological: [Denies weakness in extremities], [denies balance issues] Objective:: Physical exam General: Alert and oriented x3, no acute distress, pleasant and cooperative, [on room air] Lungs: Respirations even and unlabored, symmetrical chest expansion Eyes: PERRL Musculoskeletal: Flexion and extension of lumbar spine somewhat guarded secondary to pain, deep tendon reflexes normal, strength in upper and lower extremities [5/5], normal gait noted Neurological: Speech clear, gravity prospector equal, no gross sensory deficit Assessment:: Pain secondary to lupus, degenerative disc disease lumbar spine with lumbar radiculopathy Plan:: We will increase the patient's [place] 10 mg to 4 times daily. She will continue with her Lyrica 75 mg 1 tablet p.o. twice daily. Patient is also been encouraged to begin taking CBD oil THC free. Patient says that she will discuss this with human resources here at [facility] to see if she is to take the medication. We will see the patient back in the clinic in 2 weeks to reassess her symptoms. She has been instructed to contact the clinic if she has any concerns before next appointment. Dr. Venegas has reviewed this note and agrees with this plan of care. This note was dictated using voice recognition software and make contain errors or omissions. Patient has been prescribed a controlled substance after being counseled on the medication, medication safety, and possible side effects. LOI report has been obtained and reviewed prior to prescription and found to be appropriate. Opioid contract was reviewed and signed by the patient, and that they have agreed to all of the terms set forth by our compliance program. [facility] History Medical History: Reports:: Deep Vein Thrombosis, Diabetes Mellitus Type 1, Diabetes Mellitus Type 2, Gastroesophageal Reflux Disease(GERD), Gastrointestinal Bleed, Heart Murmur, Hiatal Hernia, Hypertension, Lung Disease, Migraine, MRSA, Seizures Denies:: Cancer, Internal Pacemaker *Have you ever received a pneumonia vaccine?: Yes *
--- NOTE | 2019-08-05 09:09 | P.CONS_ITS ---
[facility] Pain Management SOAP Note Subjective:: Patient is a pleasant 49-year-old white female who presents today for follow-up. She is being treated for pain secondary to lupus. Patient says she is having increased pain to her lower extremities. She says this is been ongoing and it has worsened over the last few weeks. Patient is currently managed with [place] 10 mg 1 tablet p.o. 3 times daily and [place] 75 mg 1 tablet p.o. twice daily. She denies any side effects to her medications. Patient says that she is not sure if she is having a lupus flareup or if it is something else going on. She did discuss with Adithya Blas APRN possible spinal cord stimulation, however, the patient is on anticoagulation therapy for TIAs. Patient says that she is unable to come off her anticoagulation therapy at this time. Patient would like to discuss other alternative therapies for control. She is also on Cymbalta 60 mg 1 tablet p.o. really. She does say that Cymbalta has helped her tremendously. She does deny any side effects to her medications. Patient has tried taking diclofenac in the past, but developed a severe GI bleed. As a resu lt, she no longer takes anti-inflammatories orally. Patient also takes tizanidine and says that it does not give her much relief. She is continuing with a home stretching program. Her Loi #[id number] has been reviewed and is appropriate along with previous urine drug screens. Review of Systems General: No recent weight changes, no fever, no sleep disturbances Respiratory: No cough, no shortness of air, no recurring pulmonary infections Cardiovascular/peripheral vascular: No chest pain, no palpitations, no edema, no shortness of breath Gastrointestinal: No new onset incontinence, normal bowel movements reported Genitourinary: No new onset incontinence Musculoskeletal: Back pain, bilateral leg pain Psychiatric: Normal mood/affect Neurological: [Denies weakness in extremities], [denies balance issues] Objective:: Physical exam General: Alert and oriented x3, no acute distress, pleasant and cooperative, [on room air] Lungs: Respirations even and unlabored, symmetrical chest expansion Eyes: PERRL Musculoskeletal: Flexion and extension of lumbar spine somewhat guarded secondary to pain, deep tendon reflexes normal, strength in upper and lower e xtremities [5/5], normal gait noted Neurological: Speech clear, central office installer equal, no gross sensory deficit Assessment:: Pain secondary to lupus, degenerative disc disease lumbar spine with lumbar radiculopathy Plan:: We will increase the patient's [place] 10 mg to 4 times daily. She will continue with her Lyrica 75 mg 1 tablet p.o. twice daily. Patient is also been encouraged to begin taking CBD oil THC free. Patient says that she will discuss this with human resources here at [facility] to see if she is to take the medication. We will see the patient back in the clinic in 2 weeks to reassess her symptoms. She has been instructed to contact the clinic if she has any concerns before next appointment. Dr. Venegas has reviewed this note and agrees with this plan of care. This note was dictated using voice recognition software and make contain errors or omissions. Patient has been prescribed a controlled substance after being counseled on the medication, medication safety, and possible side effects. LOI report has been obtained and reviewed prior to prescription and found to be appropriate. Opioid contract was reviewed and signed by the patient, and that they have agreed to all of the terms set forth by our compliance program. [facility] History Medical History: Reports:: [place]
== END ==
PROVIDERS: PCP Nurse Practitioner Family; Visit Provider Clinical Nurse Specialist Family Health
DX: M32.9 Systemic lupus erythematosus, unspecified (principal); M51.16 Intervertebral disc disorders with radiculopathy, lumbar region; G89.29 Other chronic pain
CPT/HCPCS: 99212

== ENCOUNTER → 2019-08-06 09:53 | Day surgery (SDC) | payer OTHER, SELFPAY ==
--- NOTE | 2019-08-06 12:03 | HMH.TILT ---
Findings:: PROCEDURE: Upright Tilt Table Test REQUESTING PHYSICIAN: Rachel Estrada MD REASON: Recurrent episodes of near syncope/syncope for the past 6 weeks HOME MEDS: Calcium 500 +D daily, Duloxetine 60 mg daily, Estradiol 1 mg daily, Losartan/HCTZ 100-25 mg daily, Nexium 40 mg daily, [place] 10-325 daily, Hydroxychloroquine 200 mg BID, Pregabalin 150 mg QHS, Tizanidine 4 mg QHS, Albuterol MDI Q6H prn, Rivaroxaban 20 mg daily. PRETEST VITAL SIGNS: BP 128/85, HR 67 w/NSR, O2SATS 96% ON RA. PROCEDURE SUMMARY: Patient was tilted upright at 85 degrees for 40 minutes with no syncope or near syncope and no other significant symptoms. She remained in NSR throughout with minimum HR of 70 bpm and maximum of 81 bpm. Minimum blood pressure was 113/88, recorded 30 minutes after being placed upright. Maximum BP was 132/88, recorded after 35 minutes upright. O2SATS remained in the mid to high 90s throughout. COMPLICATIONS: None. CONCLUSION: Unremarkable upright TTT.
== END ==
PROVIDERS: PCP Nurse Practitioner Family; Visit Provider Specialist
DX: R55 Syncope and collapse (principal); G45.1 Carotid artery syndrome (hemispheric); R93.89 Abnormal findings on diagnostic imaging of other specified body structures
CPT/HCPCS: 93660

== ENCOUNTER → 2019-08-07 13:27 | Outpatient (CLI) | payer OTHER, SELFPAY ==
[2019-08-07 15:29] LABS: Anion Gap 11.6 mEq/L (5-15); Blood Urea Nitrogen 13 mg/dL (7-18); Calcium 9.4 mg/dL (8.5-10.1); Carbon Dioxide 32 mmol/L (21.0-32.0); Chloride 99 mmol/L (98-107); Creatinine,Serum 0.77 mg/dL (0.55-1.02); Estimated Glomerular Filt Rate 80 ml/min (>60); GFR (African American) 97 ML/MIN (>60); Glucose 102 mg/dL (74-106); Potassium 3.6 mmoL/L (3.5-5.1); Sodium 139 mmol/L (136-145)
== END ==
PROVIDERS: Visit Provider Specialist
DX: G43.919 Migraine, unspecified, intractable, without status migrainosus (principal); G45.1 Carotid artery syndrome (hemispheric); R55 Syncope and collapse
CPT/HCPCS: 36415; 80048

== ENCOUNTER → 2019-08-08 08:48 | Outpatient (CLI) | payer OTHER, SELFPAY ==
--- NOTE | 2019-08-08 08:50 | CA_ITS ---
[facility] RADIOLOGICAL CONSULTATION Patient Name : Kassi Claudio X-RAY # : [id number] Physician: SAMANTA BENEDICT AGE: 49Y : 1970 00:00:00 ( F ) Exam : CA ECHO DOPPLER COMPLETE ACC # : [id number] Study Date : 08/08/2019 09:14:04 Patient Class : O FINAL REPORT CLINICAL DATA: FINDINGS: TRANSCRIBED REPORT EXAM: Comprehensive 2D, Doppler, and color-flow Echocardiogram Pure Pak Machine Operator: Rhea Farmer CRT Ht: 5 ft 3 in Wt: 222lbs BSA: 2.02 BP: 136/74 mmHg Indications: OSP, LUPUS, GERD, TIA PRESYNCOPE, MIGRAINE 2D Dimensions LVOT 1.80 cm (M/F) 1.5-2.5 M-Mode Dimensions RVDd 1.60 cm (0.9-2.6) LA Diam 3.70 cm (1.9-4.0) LVDd 5.80 cm (3.5-5.7) Ao Diam 3.30 cm (2.0-3.7) LVDs 3.60 cm (3.5-5.7) AV Cusp 2.10 cm (1.5-2.6) IVSd 1.00 cm (0.6-1.1) PWd 0.90 cm (0.6-1.1) EF (Teich) 67.40% FS 37.90% EDV (Teich) 167.00 mL ESV (Teich) 54.40 mL LV Diastology E/A Ratio 0.70 MED E' 6.96 (< 7 cm/sec) E'/MED E' Ratio 10.80 (>14) LAT E' 7.99 (<10 cm/sec) E/LAT E' Ratio 9.40 (>14) Aortic Valve AoV Peak Skyler. 205.00 (50-130 cm/s) AI PHT 422.00 ms AO Peak GR. 17.00 mmHg Mitral Valve MV E Max Skyler. 75.00 (40-130 cm/s) MV A Velocity 106.00 (40-130 cm/s) E/A Ratio 0.70 Pulmonary Valve NV End VMAX 90.30 cm/s PA Accel Time 85.00 (>120 msec) Tricuspid Valve TR P. Velocity 261.00 cm/s RAP Estimate 10.00 mmHg RVSP 37.00 mmHg Electronically signed by : IMPRESSION: Dictated by at Transcribed by at
--- NOTE | 2019-08-08 09:26 | CT_ITS ---
Procedure: CT ANGIO HEAD CLINICAL HISTORY: Severe headache, abnormal M RV nodular fee Abnormal MRV, MRA w/ venography rec by Dr. Gardner COMPARISON: [facility] MR venography head wo con from 02/05/2019 TECHNIQUE: IV Contrast: 100ml Optiray 350 Axial images obtained with sagittal and coronal reformats. All CT scans at the facility use one or more dose reduction, viz: automated exposure control, ma/kV adjustment per patient size (including targeted exams where dose is matched to indication, i.e. head), or iterative reconstruction technique. FINDINGS: No evidence of aneurysm or arteriovenous malformation. No major intracranial occlusive process evident. The [id number] has an unremarkable appearance. No enhancing lesions are evident. There is no evidence of sagittal sinus thrombosis. 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 This however is felt represent an anatomic variant. No definite disruption of the sinus apparent. The cranial venous structures have an unremarkable appearance. IMPRESSION: Negative CT angiography with negative CT venography. No evidence of sinus thrombosis. 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
== END ==
PROVIDERS: PCP Nurse Practitioner Family; Visit Provider Specialist
DX: D68.61 Antiphospholipid syndrome (principal); G43.919 Migraine, unspecified, intractable, without status migrainosus; G45.1 Carotid artery syndrome (hemispheric); R55 Syncope and collapse; R93.89 Abnormal findings on diagnostic imaging of other specified body structures
CPT/HCPCS: 70496; 93306; Q9967

== ENCOUNTER → 2019-08-18 10:16 | Outpatient (CLI) | payer OTHER, SELFPAY | PROVIDERS: Visit Provider Specialist | DX: G43.919 Migraine, unspecified, intractable, without status migrainosus (principal); G47.33 Obstructive sleep apnea (adult) (pediatric); R42 Dizziness and giddiness; R55 Syncope and collapse | CPT/HCPCS: 93225; 93226; 94762 ==

== ENCOUNTER → 2019-08-19 08:31 | Outpatient (POV) | payer OTHER, SELFPAY ==
[2019-08-19 08:33] VITALS: BP 143/84; PULSE 68; RESP 18; O2SAT 98; BMI 38.9
--- NOTE | 2019-08-19 15:45 | HMH.PAINSOAP ---
[facility] Pain Management SOAP Note Subjective:: Patient is a pleasant 49-year-old white female who presents today for follow-up after increase on [place] 10 mg to 4 times a day. She states this is very beneficial. She also states that she is doing well with her current Lyrica dose. 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 Patient's [facility] #[id number] reviewed and appropriate. Patient is on anticoagulation therapy at this time and unable to come off of it. ROS General: no recent weight change, no fever, no sleep disturbances Respiratory: no cough, no shortness of air, no recurring pulmonary infections Cardiovascular/Peripheral Vascular: No chest pain, No palpitations, no edema, no shortness of breath. Gastrointestinal: no new onset incontinence, normal bowel movements reported Genitourinary: no new onset incontinence Musculoskeletal: Back pain Psychiatric: normal mood/ affect Neurological: [denies new onset weakness in extremities], [denies new onset balance issues] Objective:: Physical Exam General: Alert and oriented x3, no acute distress, pleasant and cooperative, [on room air] Lungs: Resps E/U, Symmetrical chest expansion, Eyes: PERRL Musculoskeletal: Flexion and extension of lumbar spine somewhat guarded secondary to pain, deep tendon reflexes normal, strength in upper and lower extremities [5/5], slightly antalgic gait noted Neurological: speech clear, relocation associate equal, no gross sensory deficits Assessment:: 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 4 times a day we will see her back in 3 months reassess her symptoms at that time she is been instructed to call the office if she has any issues prior to her next appointment. Patient has been prescribed a controlled substance after being counseled on the medication, medication safety, and possible side effects. [facility] report has been obtained and reviewed prior to prescription and found to be appropriate. Opioid contract was reviewed and signed by the patient, and that they have agreed to all of the terms set forth by our compliance program. Dr. Venegas has reviewed this note and agrees with this plan of care. This note was dictated using voice recognition software and may contain errors or omissions [facility] History I have reviewed the patient's past medical history: Yes Medical History: Reports:: Deep Vein Thrombosis, Diabetes Mellitus Type 1, Diabetes Mellitus Type 2, Gastroesophageal Reflux Disease(GERD), Gastrointestinal Bleed, Heart Murmur, Hiatal Hernia, Hypertension, Lung Disease, Migraine, MRSA, Seizures Denies:: Cancer, Internal Pacemaker *Have you ever received a pneumonia vaccine?: Yes *Have you received a flu vaccine this season?: Yes Other Medical History: Reports: Anemia, Other Laterality Cases: Other Surgeries: Yes: Appendectomy, Cholecystectomy, , Hysterectomy-Total, Tubal Ligation. No: Pacemaker Amputation: No Fractures: No - *Social History Smoking Status: Never smoker Alcohol Intake: never Alcohol Intake Frequency:: other Substance Use Type: denies use *Occupational Status:: other Housing: house Household Members: spouse *Travel in the last 8 weeks: None Family Hx:: Diabetes, Heart Attack, Hypertension
== END ==
PROVIDERS: PCP Nurse Practitioner Family; Visit Provider Clinical Nurse Specialist Family Health
DX: M51.16 Intervertebral disc disorders with radiculopathy, lumbar region (principal); M32.9 Systemic lupus erythematosus, unspecified
CPT/HCPCS: 99212

== ENCOUNTER → 2019-08-29 10:49 | Outpatient (CLI) | payer OTHER, SELFPAY | PROVIDERS: PCP Nurse Practitioner Family; Visit Provider Urology | DX: R06.02 Shortness of breath (principal); R07.9 Chest pain, unspecified; R42 Dizziness and giddiness | CPT/HCPCS: 93270 ==

== ENCOUNTER → 2019-09-09 12:42 | Outpatient (CLI) | payer OTHER, SELFPAY ==
--- NOTE | 2019-09-09 12:43 | CA_ITS ---
APPROVED REPORT EXAM: Limited 2D Echocardiogram Manager Supply: Gladis Norris RDCS Ht: 5 ft 3 in Wt: 220lbs BSA: 2.01 BP: 123/66 mmHg Indications: BUBBLE STUDY LIMITED EXAM BUBBLE NEGATIVE Left Ventricle Left atrium is mildly enlarged, left ventricle is normal size, visually estimated ejection fraction 55% with no regional wall motion abnormality, diastolic parameters are inconclusive. Right Ventricle Right atrium and right ventricular normal size and contractility. Atria Intra-atrial septum is intact, there is no flow across the atrial septum, agitated saline contrast reveals 25 intracardiac shunt. Aortic Valve Aortic valve is minimally thickened and fibrosed, there is no aortic stenosis, there is mild aortic insufficiency. Mitral Valve Mitral valve is grossly normal, there is mild mitral regurgitation. Tricuspid Valve Tricuspid valve is grossly normal, there is mild tricuspid regurgitation. Pulmonic Valve Pulmonic valve is poorly visualized. Great Vessels Aortic root is normal size. Pericardium No significant pericardial effusion noted. Conclusion 1. Mildly enlarged left atrium, normal left ventricular size, visually estimated ejection fraction 55% with no regional wall motion abnormality, diastolic parameters are inconclusive. 2. Mild mitral and tricuspid regurgitation 3. Agitated saline contrast study fails to identify intracardiac shunt. Electronically signed by : Ted Law, 09/09/2019 22:14:07
--- NOTE | 2019-09-09 12:46 | NM_ITS ---
PROCEDURE: NM PUL VENT AND PERFUSE CLINICAL INDICATION: shortness of breath COMPARISON: CT HEART W CALCIUM SCORE from 09/09/2019 CA ECHO LIMITED from 09/09/2019 TECHNIQUE: 36.1 mCi technetium DTPA inhaled 7.99 mCi technetium MAA IV FINDINGS: There is homogeneous distribution of radiopharmaceutical in both lungs in upper and lower lobes as expected. No segmental defects are evident. Ventilation images are unremarkable. IMPRESSION: Normal pulmonary ventilation perfusion lung scan The Dictated by: Luis Antonio Gardner MD 09/09/2019 20:32 Electronically signed by Luis Antonio Gardner MD in [place] 09/09/2019 20:32
== END ==
PROVIDERS: PCP Nurse Practitioner Family; Visit Provider Urology
DX: R06.02 Shortness of breath (principal); R07.9 Chest pain, unspecified; R42 Dizziness and giddiness
CPT/HCPCS: 78582; 93306; 93308; A9540; A9567

== ENCOUNTER → 2019-09-09 14:41 | Outpatient (CLI) | payer OTHER, SELFPAY ==
--- NOTE | 2019-09-09 14:42 | CT_ITS ---
PROCEDURE: CT HEART W CALCIUM SCORE CLINICAL HISTORY: chest pain COMPARISON: No exams were available for comparison TECHNIQUE: Axial images obtained with sagittal and coronal reformats. All CT scans at the facility use one or more dose reduction, viz: automated exposure control, ma/kV adjustment per patient size (including targeted exams where dose is matched to indication, i.e. head), or iterative reconstruction technique. FINDINGS: The coronary artery calcium score is 7 indicating minimal plaque burden with low cardiovascular disease risk Incidental findings include small hiatal hernia IMPRESSION: Minimal plaque burden with low cardiovascular disease risk Dictated by: Luis Antonio Gardner MD 09/10/2019 13:55 Electronically signed by Luis Antonio Gardner MD in [place] 09/10/2019 13:55
== END ==
PROVIDERS: PCP Nurse Practitioner Family; Visit Provider Urology
DX: Z13.6 Encounter for screening for cardiovascular disorders (principal)
CPT/HCPCS: 75571

== ENCOUNTER → 2019-09-18 08:36 | Outpatient (CLI) | payer OTHER, SELFPAY ==
--- NOTE | 2019-09-18 08:40 | XR_ITS ---
PROCEDURE: XR CHEST 2V CLINICAL HISTORY: SOB, COUGH,LARYNGITIS COMPARISON: [facility]GCHEST CT angio chest from 05/22/2018 CXR2V XR chest 2V from 10/21/2018 CXR2V XR chest 2V from 11/01/2018 CXR2V XR chest 2V from 11/07/2018 FINDINGS: The cardiomediastinal silhouette and pulmonary vascularity are within normal limits. The lungs are clear without infiltrates, suspicious nodules, or pleural effusions. No acute bony abnormalities. IMPRESSION: No acute findings. Dictated by: Luis Antonio Gardner MD 09/18/2019 14:56 Electronically signed by Luis Antonio Gardner MD in [place] 09/18/2019 14:56
== END ==
PROVIDERS: PCP Nurse Practitioner Family; Visit Provider Nurse Practitioner Family
DX: R05 Cough (principal)
CPT/HCPCS: 71046

== ENCOUNTER → 2019-09-29 10:06 | Outpatient (CLI) | payer OTHER, SELFPAY ==
[2019-09-29 10:39] LABS: Amphetamine/Metha Screen,Urine Negative ng/mL (<1000); Barbiturates Screen,Urine Negative ng/mL (<200); Benzodiazepines Screen,Urine Negative ng/mL (<200); Cannabinoid Screen,Urine Negative ng/mL (<50); Cocaine Screen,Urine Negative ng/mL (<300); Methadone Screen,Urine Negative ng/mL (<300); Opiate Screen,Urine Positive ng/mL (<300); Phencyclidine Screen,Urine Negative ng/mL (<25)
[2019-10-04 12:34] LABS: Codeine Negative (Cutoff=100); Hydrocodone Positive (.); Hydromorphone Positive (.); Morphine Negative (Cutoff=100)
[2019-10-04 13:04] LABS: Opiates Positive (.)
== END ==
PROVIDERS: Visit Provider Clinical Nurse Specialist Family Health
DX: Z79.899 Other long term (current) drug therapy (principal)
CPT/HCPCS: 80305; 80361; 80365; G0480

== ENCOUNTER → 2019-10-27 12:44 | Outpatient (POV) | payer OTHER, SELFPAY ==
--- NOTE | 2019-10-27 13:23 | HMH.PAINSOAP ---
[facility] Pain Management SOAP Note Subjective:: Patient is a pleasant 49-year-old white female who presents today to discuss medications. She is currently on [place] and Lyrica. Patient is been unable to tolerate her afternoon Lyrica dose due to sleepiness. Patient is currently on anticoagulation therapy. Patient states that she is hyper sensitive to touch. Patient states she does not know if it is from her fibromyalgia or her lupus. 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 She rates her pain today a 4 out of 10. She denies side effects to her medication. She is currently on [place] 10 mg 1 p.o. 4 times daily and Lyrica 75 mg 1 p.o. twice daily. [facility] #[id number] reviewed patient is also having random times of numbness in her arms. ROS General: no recent weight change, no fever, no sleep disturbances Respiratory: no cough, no shortness of air, no recurring pulmonary infections Cardiovascular/Peripheral Vascular: No chest pain, No palpitations, no edema, no shortness of breath. Gastrointestinal: no new onset incontinence, normal bowel movements reported Genitourinary: no new onset incontinence Musculoskeletal: Back pain, leg pain, arm pain and neck pain Psychiatric: normal mood/ affect Neurological: [denies new onset weakness in extremities], [denies new onset balance issues] Objective:: Physical Exam General: Alert and oriented x3, no acute distress, pleasant and cooperative, [on room air] Lungs: Resps E/U, Symmetrical chest expansion, Eyes: PERRL Musculoskeletal: Flexion and extension of cervical and lumbar spine somewhat guarded secondary to pain, deep tendon reflexes normal, strength in upper and lower extremities [5/5], [abnormal gait noted] Neurological: speech clear, car designer equal, no gross sensory deficits Assessment:: Degenerative disc disease cervical spine with cervical radiculopathy and degenerative disc disease lumbar spine with lumbar radiculopathy postlaminectomy syndrome Plan:: We will refill the patient's [place] 10 mg 1 p.o. 4 times daily and she will take her Lyrica 75 mg 2 p.o. at bedtime I will follow-up with her in 1 week and see if this has improved any. Patient's been instructed call the office if she has any issues prior to her next appointment. Dr. Venegas has reviewed this note and agrees with this plan of care. This note was dictated using voice recognition software and may contain errors or omissions Patient has been prescribed a controlled substance after being counseled on the medication, medication safety, and possible side effects. [facility] report has been obtained and reviewed prior to prescription and found to be appropriate. Opioid contract was reviewed and signed by the patient, and that they have agreed to all of the terms set forth by our compliance program. [facility] History I have reviewed the patient's past medical history: Yes Medical History: Reports:: Asthma, Deep Vein Thrombosis, Diabetes Mellitus Type 1, Diabetes Mellitus Type 2, Gastroesophageal Reflux Disease(GERD), Gastrointestinal Bleed, Heart Murmur, Hiatal Hernia, Hypertension, Lung Disease, Migraine, MRSA, Seizures Denies:: Cancer, Internal Pacemaker *Have you ever received a pneumonia vaccine?: No *Have you received a flu vaccine this season?: Yes Other Medical History: Reports: Anemia, Other Laterality Cases: Bilateral: Carpal Tunnel Release, Other Other Surgeries: Yes: Appendectomy, Cholecystectomy, , Hysterectomy-Total, Tubal Ligation. No: Pacemaker Amputation: No Fractures: No - *Social History Smoking Status: Never smoker Alcohol Intake: never Alcohol Intake Frequency:: other Substance Use Type: denies use *Occupational Status:: other Housing: house Household Members: spouse *Travel in the last 8 weeks: None Family Hx:: Diabetes, Heart Attack, Hypertension
[2019-10-27 13:36] VITALS: BP 123/72; PULSE 75; RESP 18; O2SAT 99; BMI 38.0
== END ==
PROVIDERS: PCP Nurse Practitioner Family; Visit Provider Clinical Nurse Specialist Family Health
DX: M50.10 Cervical disc disorder with radiculopathy, unspecified cervical region (principal); M51.16 Intervertebral disc disorders with radiculopathy, lumbar region; M96.1 Postlaminectomy syndrome, not elsewhere classified; Z79.891 Long term (current) use of opiate analgesic; Z79.899 Other long term (current) drug therapy
CPT/HCPCS: 99212

== ENCOUNTER → 2019-11-03 12:17 | Outpatient (CLI) | payer OTHER, SELFPAY ==
[2019-11-03 12:31] LABS: Basophils # 0.1 K/mm3 (0-0.2); Basophils % 0.9 % (0.1-2.0); Eosinophils # 0.4 K/mm3 (0.0-0.4); Eosinophils % 3.6 % (0.1-12.0); Hematocrit 39.5 % (37.0-47.0); Hemoglobin 12.6 g/dL (12.2-16.2); Lymphocytes # 3.3 K/mm3 (0.7-4.5); Lymphocytes % 29.5 % (10-50); Mean Corpuscular Hemoglobin 27.4 pg (27.0-31.2); Mean Corpuscular Volume 85.5 fl (81-99); Mean Platelet Volume 8.2 fl (7.4-10.4); Monocytes # 0.4 K/mm3 (0.1-1.0); Monocytes % 3.9 % (1.7-9.3); Neutrophils % 62.2 % (37.0-80.0); Platelet Count 399 K/mm3 (142-424); Red Blood Count 4.62 M/mm3 (4.20-5.40); Red Cell Distribution Width 13.6 % (11.5-17.5); White Blood Count 11.2 K/mm3 (4.8-10.8)
[2019-11-03 12:42] LABS: INR 1.27 (0.9-1.1); Prothrombin Time 13.1 seconds (9.4-11.8)
[2019-11-03 12:52] LABS: Alanine Aminotransferase 22 U/L (12-78); Albumin Level 3.6 gm/dL (3.4-5.0); Albumin/Globulin Ratio 0.9 (1.1-1.8); Alkaline Phosphatase 85 U/L (46-116); Anion Gap 12.2 mEq/L (5-15); Aspartate Amino Transferase 17 U/L (15-37); Bilirubin,Total 0.2 mg/dL (0.2-1.0); Blood Urea Nitrogen 13 mg/dL (7-18); Calcium 8.9 mg/dL (8.5-10.1); Carbon Dioxide 29 mmol/L (21.0-32.0); Chloride 98 mmol/L (98-107); Creatinine,Serum 0.78 mg/dL (0.55-1.02); Estimated Glomerular Filt Rate 79 ml/min (>60); GFR (African American) 95 ML/MIN (>60); Globulin 4.2 gm/dl (1.3-3.2); Glucose 100 mg/dL (74-106); Potassium 3.2 mmoL/L (3.5-5.1); Sodium 136 mmol/L (136-145); Total Protein,Serum 7.8 gm/dL (6.4-8.2)
[2019-11-03 14:37] LABS: Alanine Aminotransferase 21 U/L (12-78); Albumin Level 3.7 gm/dL (3.4-5.0); Alkaline Phosphatase 86 U/L (46-116); Aspartate Amino Transferase 13 U/L (15-37); Bilirubin,Direct 0.1 mg/dL (0.0-0.2); Bilirubin,Indirect 0.1 mg/dL (0.0-0.9); Bilirubin,Total 0.2 mg/dL (0.2-1.0); Chol/HDL Ratio 2.9 (1-3.5); Cholesterol 198 mg/dL (140-200); HDL Cholesterol 69 mg/dL (29-89); LDL Cholesterol 100 mg/dL (0-130); Total Protein,Serum 7.4 gm/dL (6.4-8.2); Triglycerides 143 mg/dL (30-200); VLDL Cholesterol 29 mg/dL (0-40)
== END ==
PROVIDERS: Nurse Practitioner Family; Visit Provider Internal Medicine Cardiovascular Disease
DX: D68.61 Antiphospholipid syndrome (principal); E66.9 Obesity, unspecified; I82.402 Acute embolism and thrombosis of unspecified deep veins of left lower extremity; M32.9 Systemic lupus erythematosus, unspecified; M54.16 Radiculopathy, lumbar region; M79.673 Pain in unspecified foot; L84 Corns and callosities
CPT/HCPCS: 80053; 80061; 80076; 85025; 85610

== ENCOUNTER → 2019-11-08 07:52 | Outpatient (CLI) | payer OTHER, SELFPAY ==
[2019-11-08 08:19] LABS: Anion Gap 11.2 mEq/L (5-15); Blood Urea Nitrogen 11 mg/dL (7-18); Calcium 8.9 mg/dL (8.5-10.1); Carbon Dioxide 30 mmol/L (21.0-32.0); Chloride 102 mmol/L (98-107); Creatinine,Serum 0.67 mg/dL (0.55-1.02); Estimated Glomerular Filt Rate 94 ml/min (>60); GFR (African American) 114 ML/MIN (>60); Glucose 114 mg/dL (74-106); Potassium 3.2 mmoL/L (3.5-5.1); Sodium 140 mmol/L (136-145); Strep Scrn Group A (Rapid) Negative (Negative)
[2019-11-08 11:19] LABS: Adenovirus F 40/41, stool Not Detected (NotDetected); Astrovirus Not Detected (NotDetected); Campylobacter Not Detected (NotDetected); Clostridium Difficile A/B, PCR Not Detected (NotDetected); Cryptosporidium Not Detected (NotDetected); Cyclospora Cayetanesis Not Detected (NotDetected); Entamoeba histolytica Not Detected (NotDetected); Enteroaggregative E coli Not Detected (NotDetected); Enteropathogenic E coli Not Detected (NotDetected); Enterotoxigenic E coli Not Detected (NotDetected); Giardia lamblia Not Detected (NotDetected); Norovirus Not Detected (NotDetected); Plesimonas Shigalloides, PCR Not Detected (NotDetected); Rotavirus A Not Detected (NotDetected); Salmonella, PCR Not Detected (NotDetected); Sapovirus Not Detected (NotDetected); Shiga-like toxin E coli Not Detected (NotDetected); Shigella Enterovasive E coli Not Detected (NotDetected); Vibrio Cholerae Not Detected (NotDetected); Vibrio, PCR Not Detected (NotDetected); Yersinia Entercolitica, PCR Not Detected (NotDetected)
== END ==
PROVIDERS: Visit Provider Nurse Practitioner Family
DX: R21 Rash and other nonspecific skin eruption (principal); E87.6 Hypokalemia; R19.7 Diarrhea, unspecified
CPT/HCPCS: 36415; 80048; 87430; 87507

== ENCOUNTER → 2019-11-18 10:24 | Outpatient (POV) | payer OTHER, SELFPAY ==
[2019-11-18 10:59] VITALS: BP 137/46; PULSE 74; RESP 18; O2SAT 98; BMI 38.0
--- NOTE | 2019-11-18 11:30 | PC.NURSE ---
LYRICA 75MG QHS CALLED INTO CLINIC PHARMACY WITH 2 REFILLS PER PROVIDER ORDER
--- NOTE | 2019-11-18 12:06 | HMH.PAINSOAP ---
[facility] Pain Management SOAP Note Subjective:: Patient is a pleasant 49-year-old white female who presents today for follow-up after increasing her Lyrica. Patient was unable to tolerate the increase. She rates her pain a 3 out of 10 right now. She is currently on [place] 10 mg 1 p.o. 4 times daily and Lyrica 75 mg p.o. twice a day. Will just remain at this dose for at this time. Patient is on blood thinners she is to get epidural injections which were beneficial for her we discussed potentially seeing if she can have a Lovenox bridge. ROS General: no recent weight change, no fever, no sleep disturbances Respiratory: no cough, no shortness of air, no recurring pulmonary infections Cardiovascular/Peripheral Vascular: No chest pain, No palpitations, no edema, no shortness of breath. Gastrointestinal: no new onset incontinence, normal bowel movements reported Genitourinary: no new onset incontinence Musculoskeletal: Back pain, leg pain Psychiatric: normal mood/ affect Neurological: [denies new onset weakness in extremities], [denies new onset balance issues] Objective:: Physical Exam General: Alert and oriented x3, no acute distress, pleasant and cooperative, [on room air] Lungs: Resps E/U, Symmetrical chest expansion, Eyes: PERRL Musculoskeletal: Flexion and extension of lumbar spine somewhat guarded secondary to pain, deep tendon reflexes normal, strength in upper and lower extremities [5/5], slightly antalgic gait noted Neurological: speech clear, dog licenser equal, no gross sensory deficits Assessment:: Degenerative disc disease lumbar spine with lumbar radiculopathy postlaminectomy syndrome Plan:: Patient does not need medication today. We will follow-up at her next medication refill. Patient's been instructed to call the office if she has any issues prior to her next appointment. Dr. Venegas has reviewed this note and agrees with this plan of care. This note was dictated using voice recognition software and may contain errors or omissions [facility] History I have reviewed the patient's past medical history: Yes Medical History: Reports:: Asthma, Deep Vein Thrombosis, Diabetes Mellitus Type 1, Diabetes Mellitus Type 2, Gastroesophageal Reflux Disease(GERD), Gastrointestinal Bleed, Heart Murmur, Hiatal Hernia, Hypertension, Lung Disease, Migraine, MRSA, Seizures Denies:: Cancer, Internal Pacemaker *Have you ever received a pneumonia vaccine?: Yes *Have you received a flu vaccine this season?: Yes Other Medical History: Reports: Anemia, Other Laterality Cases: Bilateral: Carpal Tunnel Release, Other Other Surgeries: Yes: Appendectomy, Cholecystectomy, , Hysterectomy-Total, Tubal Ligation. No: Pacemaker Amputation: No Fractures: No - *Social History Smoking Status: Never smoker Alcohol Intake: never Alcohol Intake Frequency:: other Substance Use Type: denies use *Occupational Status:: other Housing: house Household Members: spouse *Travel in the last 8 weeks: None Family Hx:: Diabetes, Heart Attack, Hypertension
== END ==
PROVIDERS: PCP Nurse Practitioner Family; Visit Provider Clinical Nurse Specialist Family Health
DX: M51.16 Intervertebral disc disorders with radiculopathy, lumbar region (principal); M96.1 Postlaminectomy syndrome, not elsewhere classified
CPT/HCPCS: 99212

== ENCOUNTER → 2019-11-25 14:04 | Outpatient (CLI) | payer OTHER, SELFPAY ==
--- NOTE | 2019-11-25 14:05 | CA_ITS ---
APPROVED REPORT Bilateral Lower Extremity Venous Study for Gravel Weigher: YANG Indications Lower Extremity Pain: r/o DVT,PAIN Vein Imaging CFV (L): compressive, spontaneous, phasic, augmentation SFJ (L): compressive, spontaneous, phasic, augmentation FEM (L): compressive, spontaneous, phasic, augmentation POP (L): compressive, spontaneous, phasic, augmentation PTV (L): Compressible GSV (L): Compressible Peroneals (L):Compressible GAS (L): Compressible Findings No evidence of DVT or superficial thrombophlebitis in the veins scanned of the left lower extremity. Dr. Kruse's office notified via Alexandra Conclusion No evidence of DVT or superficial thrombophlebitis in the veins scanned of the left lower extremity. Electronically signed by : Luis Antonio Gardner MD 11/25/2019 17:45:56
== END ==
PROVIDERS: PCP Emergency Medicine; Visit Provider Emergency Medicine
DX: M79.605 Pain in left leg (principal); M79.89 Other specified soft tissue disorders; Z86.718 Personal history of other venous thrombosis and embolism
CPT/HCPCS: 93971

== ENCOUNTER → 2020-02-19 07:40 | Outpatient (CLI) | payer OTHER, SELFPAY ==
[2020-02-19 08:22] LABS: Basophils # 0.1 K/mm3 (0-0.2); Basophils % 1.2 % (0.1-2.0); Eosinophils # 0.2 K/mm3 (0.0-0.4); Eosinophils % 3.2 % (0.1-12.0); Hemoglobin 12.3 g/dL (12.2-16.2); Lymphocytes # 2.8 K/mm3 (0.7-4.5); Lymphocytes % 41.1 % (10-50); Mean Corpuscular HGB Conc 31.6 g/dL (31.8-35.4); Mean Corpuscular Hemoglobin 27.3 pg (27.0-31.2); Mean Corpuscular Volume 86.3 fl (81-99); Mean Platelet Volume 7.9 fl (7.4-10.4); Monocytes # 0.2 K/mm3 (0.1-1.0); Monocytes % 3.4 % (1.7-9.3); Neutrophils # 3.5 K/mm3 (1.8-7.8); Platelet Count 386 K/mm3 (142-424); Red Blood Count 4.52 M/mm3 (4.20-5.40); Red Cell Distribution Width 13.6 % (11.5-17.5); White Blood Count 6.8 K/mm3 (4.8-10.8)
[2020-02-19 09:46] LABS: Alanine Aminotransferase 16 U/L (12-78); Albumin Level 4.5 g/dl (3.5-5.0); Albumin/Globulin Ratio 1.5 (1.1-1.8); Alkaline Phosphatase 79 U/L (38-126); Anion Gap 9.3 mEq/L (5-15); Aspartate Amino Transferase 24 U/L (14-36); Bilirubin,Total 0.1 mg/dl (0.2-1.3); Blood Urea Nitrogen 10 mg/dl (7-17); Calcium 9.1 mg/dl (8.4-10.2); Carbon Dioxide 32 mmol/L (22.0-30.0); Chloride 96 mmol/L (98-107); Chol/HDL Ratio 2.1 (1-3.5); Cholesterol 191 mg/dl (140-200); Estimated Glomerular Filt Rate 132 ml/min (>60); GFR (African American) 159 ML/MIN (>60); Glucose 93 mg/dl (74-100); HDL Cholesterol 91 mg/dl (40-60); Potassium 3.3 mmoL/L (3.5-5.1); Sodium 134 mmol/L (136-145); Total Protein,Serum 7.5 g/dl (6.3-8.2); Triglycerides 142 mg/dl (30-150); VLDL Cholesterol 28 mg/dL (0-40)
[2020-02-19 09:57] LABS: Direct LDL Cholesterol 100.95 mg/dL (100-129)
[2020-02-19 10:02] LABS: T4 (Thyroxine) 9.8 ug/dl (5.53-11.0)
[2020-02-19 10:15] LABS: Thyroid Stimulating Hormone 1.84 uIU/mL (0.465-4.68)
[2020-02-20 11:21] LABS: Vitamin B12 301 pg/mL (232-1245); Vitamin D 25 Hydroxy 36.9 ng/mL (30.0-100.0)
== END ==
PROVIDERS: Visit Provider Nurse Practitioner Family
DX: G61.9 Inflammatory polyneuropathy, unspecified (principal); G62.2 Polyneuropathy due to other toxic agents
CPT/HCPCS: 36415; 80053; 80061; 82607; 82652; 84436; 84443; 85025

== ENCOUNTER → 2020-02-24 08:35 | Outpatient (POV) | payer OTHER, SELFPAY ==
[2020-02-24 08:35] VITALS: BP 157/84; PULSE 74; RESP 20; TEMP 36.8; O2SAT 100; BMI 38.9
--- NOTE | 2020-02-24 09:07 | HMH.PAINSOAP ---
[facility] Pain Management SOAP Note Subjective:: Patient is a pleasant 49-year-old white female who presents today for medication refills. She is rating her pain today a 4 out of 10. 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 Patient currently on [place] 10 mg 1 p.o. 4 times daily. Patient is on Lyrica 75 mg 1 p.o. twice daily. Patient states that this is very beneficial for her. She denies side effects or medication. [facility] #[id number] reviewed and appropriate. Patient is on blood thinners she used to get epidural injections which were beneficial for her so we discussed potential Lovenox bridge in the future. ROS General: no recent weight change, no fever, no sleep disturbances Respiratory: no cough, no shortness of air, no recurring pulmonary infections Cardiovascular/Peripheral Vascular: No chest pain, No palpitations, no edema, no shortness of breath. Gastrointestinal: no new onset incontinence, normal bowel movements reported Genitourinary: no new onset incontinence Musculoskeletal: Back pain, leg pain Psychiatric: normal mood/ affect Neurological: [denies new onset weakness in extremities], [denies new onset balance issues] Objective:: Physical Exam General: Alert and oriented x3, no acute distress, pleasant and cooperative, [on room air] Lungs: Resps E/U, Symmetrical chest expansion, Eyes: PERRL Musculoskeletal: Flexion and extension of lumbar spine somewhat guarded secondary to pain, deep tendon reflexes normal, strength in upper and lower extremities [5/5], slightly antalgic gait noted Neurological: speech clear, wax ball knock out worker equal, no gross sensory deficits Assessment:: Degenerative disc disease lumbar spine with lumbar radiculopathy and postlaminectomy syndrome Plan:: We will continue the patient on her [place] 10 mg 1 p.o. 4 times daily and give her 2 months worth of medication. We will also continue her on her Lyrica 75 mg 1 p.o. twice daily. We will also give her 2 months of this. Patient will be seen in 3 months she can pharmacy picking technician 1 month of her prescriptions in the interim. I will follow-up with her after this reassess her symptoms at that time she has been instructed to call the office if she has any issues prior to her next appointment. Dr. Venegas has reviewed this note and agrees with this plan of care. This note was dictated using voice recognition software and may contain errors or omissions [facility] History I have reviewed the patient's past medical history: Yes Medical History: Reports:: Asthma, Deep Vein Thrombosis, Diabetes Mellitus Type 1, Diabetes Mellitus Type 2, Gastroesophageal Reflux Disease(GERD), Gastrointestinal Bleed, Heart Murmur, Hiatal Hernia, Hypertension, Lung Disease, Migraine, MRSA, Seizures Denies:: Cancer, Internal Pacemaker *Have you ever received a pneumonia vaccine?: No *Have you received a flu vaccine this season?: Yes Other Medical History: Reports: Anemia, Other Laterality Cases: Bilateral: Carpal Tunnel Release, Other Other Surgeries: Yes: Appendectomy, Cholecystectomy, , Hysterectomy-Total, Tubal Ligation. No: Pacemaker Amputation: No Fractures: No - *Social History Smoking Status: Never smoker Alcohol Intake: never Alcohol Intake Frequency:: other Substance Use Type: denies use *Occupational Status:: employed Housing: house Household Members: spouse *Travel in the last 8 weeks: None Family Hx:: Diabetes, Heart Attack, Hypertension
== END ==
PROVIDERS: PCP Nurse Practitioner Family; Visit Provider Clinical Nurse Specialist Family Health
DX: M51.16 Intervertebral disc disorders with radiculopathy, lumbar region (principal); M96.1 Postlaminectomy syndrome, not elsewhere classified
CPT/HCPCS: 99212

== ENCOUNTER → 2020-02-27 10:04 | Outpatient (CLI) | payer OTHER, SELFPAY ==
--- NOTE | 2020-02-27 10:04 | CA_ITS ---
APPROVED REPORT EXAM: Comprehensive 2D, Doppler, and color-flow Echocardiogram Mail Truck Driver: Samreen Medel RT(R) Ht: 5 ft 2 in Wt: 215lbs BSA: 1.97 BP: 122/78 mmHg Indications: Hx of TIA, pulmonary congestion, edema, Hx of DVT, family history of HD 2D Dimensions LVOT 2.10 cm (M/F) 1.5-2.5 M-Mode Dimensions RVDd 2.75 cm (0.9-2.6) LVDd 4.33 cm (3.5-5.7) LVDs 2.83 cm (3.5-5.7) IVSd 0.97 cm (0.6-1.1) PWd 1.00 cm (0.6-1.1) EF (Teich) 64.10% FS 34.60% EDV (Teich) 84.40 mL ESV (Teich) 30.30 mL LV Diastology E/A Ratio 0.87 Mitral Valve MV A Velocity 112.00 (40-130 cm/s) Left Ventricle Left atrium is mildly enlarged, left ventricle is normal size, left ventricle wall thickness is upper limit of the normal, there is preserved left ventricular systolic function, visually estimated ejection fraction 55% with no regional wall motion abnormality, grade 1 diastolic dysfunction seen without tissue Doppler evidence of raise left atrial pressure. Right Ventricle Right atrium and right ventricle are mildly enlarged with normal contractility. Aortic Valve Aortic valve is minimally thickened and fibrosed, there is no aortic stenosis or aortic insufficiency. Mitral Valve Mitral valve is grossly normal, there is mild mitral regurgitation. Tricuspid Valve Tricuspid valve grossly normal, there is mild tricuspid regurgitation, tricuspid regurgitation jet velocity is inadequate for calculation of the right ventricular systolic pressure. Pulmonic Valve Pulmonic valve is poorly visualized. Great Vessels Aortic root is normal size. Pericardium No significant pericardial effusion noted. Conclusion 1. Mild biatrial enlargement, normal left ventricular size, visually estimated ejection fraction 55% with no regional wall motion abnormality, grade 1 diastolic dysfunction seen without tissue Doppler evidence of raise left atrial pressure. 2. Mildly enlarged right ventricle with normal contractility. 3. Mild mitral and tricuspid regurgitation. 4. No significant pericardial effusion noted. Electronically signed by : Ted Law, 02/27/2020 14:10:06
== END ==
PROVIDERS: PCP Nurse Practitioner Family; Visit Provider Nurse Practitioner Family
DX: R60.9 Edema, unspecified (principal)
CPT/HCPCS: 93306

== ENCOUNTER → 2020-03-10 11:46 | Outpatient (CLI) | payer OTHER, SELFPAY ==
[2020-03-10 15:28] LABS: Anion Gap 8.5 mEq/L (5-15); Blood Urea Nitrogen 15 mg/dl (7-17); Calcium 9.4 mg/dl (8.4-10.2); Carbon Dioxide 33 mmol/L (22.0-30.0); Chloride 97 mmol/L (98-107); Estimated Glomerular Filt Rate 106 ml/min (>60); GFR (African American) 129 ML/MIN (>60); Glucose 93 mg/dl (74-100); Potassium 4.5 mmoL/L (3.5-5.1); Sodium 134 mmol/L (136-145)
[2020-03-10 18:03] LABS: Coronavirus 19 IgG Antibody Negative (Negative); Coronavirus 19 IgM Antibody Negative (Negative)
== END ==
PROVIDERS: Visit Provider Nurse Practitioner Family
DX: E87.1 Hypo-osmolality and hyponatremia (principal); E87.6 Hypokalemia; Z03.818 Encounter for observation for suspected exposure to other biological agents ruled out
CPT/HCPCS: 36415; 80048; 86328

== ENCOUNTER 2020-03-15 09:17 | Emergency (ER) | payer OTHER, SELFPAY ==
[2020-03-15 09:25] VITALS: BP 156/78; PULSE 70; RESP 18; TEMP 36.7; O2SAT 99; BMI 38.0
--- NOTE | 2020-03-15 09:39 | XR_ITS ---
PROCEDURE: XR THORACIC SPINE 3V CLINICAL INDICATION: BACK INJURY COMPARISON: No exams were available for comparison FINDINGS: No fracture or dislocation. No lytic or blastic change. There is mild multilevel degenerative disc disease in the midthoracic spine. IMPRESSION: Mild thoracic spondylosis, no acute finding Dictated by: Luis Antonio Gardner MD 03/15/2020 10:36 Electronically signed by Luis Antonio Gardner MD in [place] 03/15/2020 10:36
--- NOTE | 2020-03-15 09:39 | XR_ITS ---
PROCEDURE: XR LUMBAR SPINE MIN 4V CLINICAL INDICATION: BACK INJURY Pain following injury COMPARISON: No exams were available for comparison FINDINGS: There is normal alignment. No fracture or dislocation. No lytic or blastic change. Mild degenerative disc disease is present at L3-L4 and L1-L2 IMPRESSION: Mild degenerative changes, no acute finding Dictated by: Luis Antonio Gardner MD 03/15/2020 15:31 Electronically signed by Luis Antonio Gardner MD in [place] 03/15/2020 15:31
--- NOTE | 2020-03-15 10:10 | HMH.EDBACK ---
ED Disposition Clinical Impression: Lumbar pain Thoracic back pain Qualifiers: Chronicity: acute Back pain laterality: midline Qualified Code(s): M54.6 - Pain in thoracic spine Disposition: Home, Self-Care Condition on Discharge: Good Instructions: DI for Low Back Pain Additional Instructions: ice and see pcp if needed - workman comp completed Referrals: Arley Kruse MD [Primary Care Provider] - - Critical Care Critical Care Time: No Attestation: On 03/15/20, the high probability of a clinically significant, sudden or life threatening deterioration of the following system(s) required my full and direct attention, intervention and personal management. The time I documented below is in addition to time spent performing reported procedures but includes the following listed in this critical care notation. Medical Decision Making - Medical Records Medical records reviewed: Yes: I reviewed the patient's medical records. - Loi Inquiry Pt receiving controlled substance: No Vital Signs: 03/15/20 09:25 Temperature 98.1 F Temperature Source Oral Pulse Rate [Left Radial] 70 Respiratory Rate 18 Blood Pressure [Left Arm] 156/78 H Blood Pressure Mean [Left Arm] 104 Blood Pressure Source [Left Arm] Automatic Cuff Blood Pressure Position [Left Arm] Sitting 02 Sat by Pulse Oximetry 99 Oxygen Delivery Method Room Air Orders (Tests/Meds): ED MEDICATIONS Discontinued Medications Generic Name Dose Route Start Last Admin Trade Name Freq PRN Reason Stop Dose Admin Dexamethasone Sodium Phosphate 8 mg 03/15/20 09:40 03/15/20 09:57 Decadron 4mg/Ml 1ml Vial IM 03/15/20 09:41 8 mg ONCE ONE Administration Ketorolac Tromethamine 60 mg 03/15/20 09:40 03/15/20 09:58 Toradol 60mg/2ml Vial IM 03/15/20 09:41 60 mg ONCE ONE Administration ORDERS Category Date Time Status XR lumbar spine min 4V Stat Exams 03/15/20 09:39 Taken - Radiology Data #1 Image(s): T-Spine, L-Spine Image Reviewed: Yes I reviewed the patient's radiology image Preliminary Findings: No Fracture Seen Back Pain HPI - General Chief Complaint: Back Pain/Injury Stated Complaint: Back Pain Time Seen by Provider: 03/15/20 09:35 Mode of Arrival: Wheelchair Source of Information: Patient, Medical Record Limitations: No Limitations Description of Symptoms (Recalled from ER Triage Doc. by RN): PT BROUGHT TO ED FROM MED/SURG, WHERE SHE WAS WORKING ON SHIFT, VIA W/C C/O BACK PAIN. PT REPORTS THAT WHILE GOING INTO THE SUPPLY ROOM, THE DOOR HIT HER IN THE BACK. PT IS UNSURE IF IT WAS THE CORNER OF THE DOOR OR THE DOOR KNOB. PT REPORTS HX OF MULTIPLE BACK SURGERIES. 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 - has had prev back surg - localized pain MD Complaint: back injury Onset (ago): minute(s) Duration: constant Similar Symptoms Previously: No Location: lumbar spine Severity: moderate Quality: sharp Radiation: none Exacerbating factors: movement Context: other (blunt trauma) Associated symptoms: denies other symptoms Pertinent Issues R/T Back Pain: Back Surgery - Related Data Home Medications Medication Instructions Recorded Confirmed Esomeprazole Magnesium [Nexium] 40 mg PO DAILY 03/13/18 02/24/20 Losartan/Hydrochlorothiazide 1 each PO DAILY 03/13/18 02/24/20 [Hyzaar 100-25 Tablet] Calcium Carbonate/Vitamin D3 1 each PO DAILY 05/22/18 02/24/20 [Calcium 500-Vit D3 125 Caplet] hydroxychloroquine 200 mg tablet 200 mg PO BID tab 07/11/18 02/24/20 duloxetine 60 mg capsule,delayed 60 mg PO DAILY 11/13/18 02/24/20 release tizanidine 4 mg tablet 4 mg PO QHS #90 tab 07/28/19 02/24/20 pregabalin 75 mg capsule 75 mg PO QHS #60 cap 08/29/19 02/24/20 Hydrocodone/Acetaminophen [[place] 1 tab PO QID 02/24/20 02/24/20 10-325 Tablet] Pregabalin [Lyrica 75mg Cap] 75 mg PO DAILY 02/24/20 02/24/20 Previous Rx's Medicatio
--- NOTE | 2020-03-15 10:20 | PC.NURSE ---
Pt with rad.
[2020-03-15 10:46] VITALS: BP 134/87; PULSE 75; RESP 20; TEMP 36.7; O2SAT 98
== END 2020-03-15 10:49 | disposition home or self-care (01) ==
PROVIDERS: Emergency Provider Emergency Medicine; PCP Emergency Medicine
DX: M54.5 Low back pain (principal); M54.6 Pain in thoracic spine; I10 Essential (primary) hypertension; K21.9 Gastro-esophageal reflux disease without esophagitis; Z79.899 Other long term (current) drug therapy; Z88.2 Allergy status to sulfonamides; Z88.7 Allergy status to serum and vaccine; Z90.49 Acquired absence of other specified parts of digestive tract; Z90.79 Acquired absence of other genital organ(s)
CPT/HCPCS: 72072; 72110; 96372; 99282

== ENCOUNTER → 2020-05-07 07:28 | Outpatient (CLI) | payer OTHER, SELFPAY ==
[2020-05-07 07:37] LABS: Microscopic, Urine URINE MICROSCOPIC (MICROSCOPIC)
[2020-05-07 08:23] LABS: Appearance,Urine CLEAR (Clear); Bilirubin,Urine Negative (Negative); Blood, Urine Negative (Negative); Color,Urine YELLOW (Yellow); Glucose,Urine (UA) Negative (Negative); Ketones,Urine Negative (Negative); Leukocyte Esterase,Urine Negative (Negative); Nitrate,Urine Negative (Negative); Protein,Urine Negative (Negative); Specific Gravity, Urine >= 1.030 (1.005-1.030); Urobilinogen,Urine 0.2 EU/dl (0.2)
[2020-05-07 08:26] LABS: Basophils # 0.1 K/mm3 (0-0.2); Basophils % 1.2 % (0.1-2.0); Eosinophils # 0.3 K/mm3 (0.0-0.4); Eosinophils % 3.2 % (0.1-12.0); Hematocrit 35.7 % (37.0-47.0); Hemoglobin 11.9 g/dL (12.2-16.2); Lymphocytes # 4.3 K/mm3 (0.7-4.5); Lymphocytes % 42.9 % (10-50); Mean Corpuscular HGB Conc 33.4 g/dL (31.8-35.4); Mean Corpuscular Hemoglobin 28.6 pg (27.0-31.2); Mean Corpuscular Volume 85.7 fl (81-99); Mean Platelet Volume 7.8 fl (7.4-10.4); Monocytes # 0.4 K/mm3 (0.1-1.0); Monocytes % 4.1 % (1.7-9.3); Neutrophils # 4.9 K/mm3 (1.8-7.8); Neutrophils % 48.6 % (37.0-80.0); Platelet Count 391 K/mm3 (142-424); Red Blood Count 4.17 M/mm3 (4.20-5.40); Red Cell Distribution Width 13.8 % (11.5-17.5)
[2020-05-07 08:36] LABS: Creatinine,Urine Random 221 mg/dL (Not Estab.)
[2020-05-07 08:40] LABS: Bacteria,Urine 1+ /lpf
[2020-05-07 08:52] LABS: Erythrocyte Sedimentation Rate 25 mm/hr (0-20)
[2020-05-07 09:06] LABS: Alanine Aminotransferase 19 U/L (12-78); Albumin Level 4.1 g/dl (3.5-5.0); Albumin/Globulin Ratio 1.2 (1.1-1.8); Alkaline Phosphatase 86 U/L (38-126); Anion Gap 14.2 mEq/L (5-15); Aspartate Amino Transferase 24 U/L (14-36); Bilirubin,Total 0.2 mg/dl (0.2-1.3); Blood Urea Nitrogen 17 mg/dl (7-17); Calcium 9.2 mg/dl (8.4-10.2); Carbon Dioxide 30 mmol/L (22.0-30.0); Chloride 99 mmol/L (98-107); Estimated Glomerular Filt Rate 106 ml/min (>60); GFR (African American) 129 ML/MIN (>60); Globulin 3.3 g/dL (1.3-3.2); Glucose 117 mg/dl (74-100); Potassium 3.2 mmoL/L (3.5-5.1); Sodium 140 mmol/L (136-145); Total Protein,Serum 7.4 g/dl (6.3-8.2); Uric Acid 4.1 mg/dl (2.5-6.2)
[2020-05-07 09:11] LABS: C-Reactive Protein 13.3 mg/L (0-4)
[2020-05-08 12:56] LABS: Complement C3 149 mg/dL (82-167)
[2020-05-11 05:39] LABS: Anti-DNA (DS) Ab Qn <1 IU/mL (0-9)
== END ==
PROVIDERS: Visit Provider Nurse Practitioner Family
DX: I73.00 Raynaud's syndrome without gangrene (principal); Z79.899 Other long term (current) drug therapy
CPT/HCPCS: 36415; 80053; 81001; 82570; 84155; 84550; 85025; 85651; 86140; 86161; 86225

== ENCOUNTER → 2020-05-24 08:06 | Outpatient (POV) | payer OTHER, SELFPAY ==
[2020-05-24 08:32] VITALS: BP 134/76; PULSE 75; RESP 18; O2SAT 98; BMI 38.9
--- NOTE | 2020-05-24 09:04 | P.CONS_ITS ---
[facility] Pain Management SOAP Note Subjective:: Patient is a pleasant 50-year-old white female who presents today for medication refills. She is rating her pain a 5 out of 10. Patient is currently on Lyrica 75 mg 1 p.o. twice daily and [place] 10 mg 1 p.o. 4 times daily. Patient's Bereket #[id number] reviewed and appropriate. Urine drug screens have been appropriate. Patient currently on a blood thinners and unable to do injective therapy. Patient states the medication helps up to 80%. She is continuing to work. ROS General: no recent weight change, no fever, no sleep disturbances Respiratory: no cough, no shortness of air, no recurring pulmonary infections Cardiovascular/Peripheral Vascular: No chest pain, No palpitations, no edema, no shortness of breath. Gastrointestinal: no new onset incontinence, normal bowel movements reported Genitourinary: no new onset incontinence Musculoskeletal: Back pain, leg pain Psychiatric: normal mood/ affect Neurological: [denies new onset weakness in extremities], [denies new onset balance issues] Objective:: Physical Exam General: Alert and oriented x3, no acute distress, pleasant and cooperative, [on room air] Lungs: Resps E/U, Symmetrical chest expansion, Eyes: PERRL Musculoskeletal: Flexion and extension of lumbar spine somewhat guarded seconda ry to pain, deep tendon reflexes normal, strength in upper and lower extremities [5/5], slightly antalgic gait noted Neurological: speech clear, python django developer equal, no gross sensory deficits Assessment:: Degenerative disc disease lumbar spine lumbar radiculopathy with post laminectomy syndrome Plan:: We will continue her [place] 10 mg 1 p.o. 4 times daily and Lyrica 75 mg 1 p.o. twice daily. We will see her back in 3 months reassess her symptoms at that time she has been instructed to call the office if she has any issues prior to her next appointment. Patient has been prescribed a controlled substance after being counseled on the medication, medication safety, and possible side effects. BEREKET report has been obtained and reviewed prior to prescription and found to be appropriate. Opioid contract was reviewed and signed by the patient, and that they have agreed to all of the terms set forth by our compliance program. Dr. Venegas has reviewed this note and agrees with this plan of care. This note was dictated using voice recognition software and may contain errors or omissions [facility] History I have reviewed the patient's past medical history: Yes Medical History: Reports:: Asthma, Deep Vein Thrombosis, Gastroesophageal Reflux Disease(GERD), Gastrointestinal Bleed, Heart Murmur, Hiatal Hernia, Hypertension, Lung Disease, Migraine, MRSA, Seizures Denies:: Cancer, Diabetes Mellitus Type 1, Diabetes Mellitus Type 2, Internal Pacemaker *Have you ever received a pneumonia vaccine?: Yes *Have you received a flu vaccine this season?: Yes Other Medical History: Reports: Anemia, Other Laterality Cases: Bilateral: Carpal Tunnel Release, Other Other Surgeries: Yes: Appendectomy, Cholecystectomy, , Hysterectomy- Total, Tubal Ligation. No: Pacemaker Amputation: No Fractures: No - *Social History Smoking Status: Never smoker Alcohol Intake: never Alcohol Intake Frequency:: other Substance Use Type: denies use *Occupational Status:: other Housing: house Household Members: spouse *Travel in the last 8 weeks: None Family Hx:: Diabetes, Heart Attack, Hypertension
== END ==
PROVIDERS: PCP Nurse Practitioner Family; Visit Provider Clinical Nurse Specialist Family Health
DX: M51.16 Intervertebral disc disorders with radiculopathy, lumbar region (principal); M96.1 Postlaminectomy syndrome, not elsewhere classified
CPT/HCPCS: 99212

== ENCOUNTER → 2020-06-16 14:23 | Outpatient (CLI) | payer OTHER, SELFPAY ==
--- NOTE | 2020-06-16 14:24 | CA_ITS ---
APPROVED REPORT Bilateral Lower Extremity Venous Study for DVT. Car Body Designer: ANETTE ThakkarT Indications Lower Extremity Pain: Left pain and swelling Risk Factors Prior Phlebitis/DVT Pt has a clotting disorder Past History DVT : Medications Pt on Xarelto Vein Imaging CFV (R): compressive, spontaneous, phasic, augmentation FEM (R): compressive, spontaneous, phasic, augmentation POP (R): compressive, spontaneous, phasic, augmentation PTV (R): Compressible GSV (R): Compressible Peroneals (R):Compressible GAS (R): Compressible CFV (L): compressive, spontaneous, phasic, augmentation FEM (L): compressive, spontaneous, phasic, augmentation POP (L): compressive, spontaneous, phasic, augmentation PTV (L): Compressible GSV (L): Compressible Peroneals (L):Compressible GAS (L): Compressible Findings Study suggests no evidence of DVT of the bilateral lower extremities. Study suggests no evidence of SVT of the bilateral lower extremities. Conclusion Study suggests no evidence of DVT of the bilateral lower extremities. Study suggests no evidence of SVT of the bilateral lower extremities. Critical Notification Physician Notified Date: 06/16/2020 Time: 15:27 Physician Name: Luis aDniel Electronically signed by : Luis Antonio Gardner MD 06/17/2020 17:26:47
== END ==
PROVIDERS: PCP Family Medicine; Visit Provider Family Medicine
DX: D68.9 Coagulation defect, unspecified (principal)
CPT/HCPCS: 93970

== ENCOUNTER → 2020-06-23 07:46 | Outpatient (CLI) | payer OTHER, SELFPAY ==
--- NOTE | 2020-06-23 07:46 | CT_ITS ---
Procedure: CT ANGIO NECK CLINICAL HISTORY: vertebrobasilar insufficiency falling alot, hbp, 100ml optiray 350, 40ml saline no prior COMPARISON: No exams were available for comparison TECHNIQUE: IV Contrast: 100ml Optiray 350 Axial images obtained with sagittal and coronal reformats. All CT scans at the facility use one or more dose reduction, viz: automated exposure control, ma/kV adjustment per patient size (including targeted exams where dose is matched to indication, i.e. head), or iterative reconstruction technique. FINDINGS: The aortic arch has an unremarkable appearance. There is some mild tortuosity of the great vessels but no occlusive change evident. Bilateral vertebral arteries are patent. There is some artifact from the thyrocervical trunk on the left obscuring part of the left vertebral artery. The right vertebral artery is dominant. No significant vertebral stenosis or dissection. The basilar artery has an unremarkable appearance. No carotid stenosis evident. There is moderate tortuosity of the internal carotid arteries on both sides but no significant stenosis. There is a nonspecific hypodense nodule in the left lobe of the thyroid gland somewhat obscured by overlying artifact measuring at least 11 mm. IMPRESSION: Negative CTA of the neck. Nonspecific tortuosity of the internal carotid arteries No vertebral stenosis or dissection. Dictated by: Luis Antonio Gardner MD 06/24/2020 11:43 Luis Antonio Gardner MD in [place] 06/24/2020 11:43
== END ==
PROVIDERS: PCP Nurse Practitioner Family; Visit Provider Family Medicine
DX: G45.0 Vertebro-basilar artery syndrome (principal); D68.61 Antiphospholipid syndrome
CPT/HCPCS: 70498; Q9967

== ENCOUNTER → 2020-07-20 11:25 | Outpatient (CLI) | payer OTHER, SELFPAY ==
--- NOTE | 2020-07-20 11:27 | XR_ITS ---
PROCEDURE: XR HIP RT 2-3V W/PELVIS CLINICAL INDICATION: lupus/hip pain COMPARISON: No exams were available for comparison FINDINGS: No fracture or dislocation. No lytic or blastic change. There are minimal osteoarthritic changes of the right hip with slight decrease in the joint space. Small sclerotic foci are present in the ischemia may be due to bone islands or superimposed phleboliths. IMPRESSION: No acute finding. Minimal osteoarthritic change Dictated by: Luis Antonio Gardner MD 07/20/2020 13:01 Luis Antonio Gardner MD in [place] 07/20/2020 13:01
== END ==
PROVIDERS: PCP Family Medicine; Visit Provider Family Medicine
DX: M79.604 Pain in right leg (principal)
CPT/HCPCS: 73502

== ENCOUNTER → 2020-08-23 09:04 | Outpatient (POV) | payer OTHER, SELFPAY ==
--- NOTE | 2020-08-23 09:43 | P.CONS_ITS ---
[facility] Pain Management SOAP Note Subjective:: Patient is a pleasant 50-year-old white female who presents today for medication refills she is rating her pain today a 4 out of 10. Patient is currently on Lyrica 75 mg 1 p.o. twice daily [place] 10 mg 1 p.o. 4 times daily. She states that it helps her pain and makes her able to move forward with work. Patient's Bereket #[id number] reviewed and appropriate. Drug screens have been appropriate. 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 Patient's pain today is mostly in her legs. She is on continual blood thinners and is unable to do injective therapy. ROS General: no recent weight change, no fever, no sleep disturbances Respiratory: no cough, no shortness of air, no recurring pulmonary infections Cardiovascular/Peripheral Vascular: No chest pain, No palpitations, no edema, no shortness of breath. Gastrointestinal: no new onset incontinence, normal bowel movements reported Genitourinary: no new onset incontinence Musculoskeletal: Back pain, leg pain Psychiatric: normal mood/ affect Neurological: [denies new onset weakness in extremities], [denies new onset balance issues] Objective:: Physical Exam General: Alert and oriented x3, no acute distress, pleasant and cooperative, [on room air] Lungs: Resps E/U, Symmetrical chest expansion, Eyes: PERRL Musculoskeletal: Flexion and extension of lumbar spine somewhat guarded secondary to pain, deep tendon reflexes normal, strength in upper and lower extremities [5/5], antalgic gait noted Neurological: speech clear, 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 4 times daily and Lyrica 75 mg 1 p.o. twice daily. We will see her back in 3 months reassess her symptoms at that time. She has been instructed to call the office if she has any issues prior to her next appointment. Patient has been prescribed a controlled substance after being counseled on the medication, medication safety, and possible side effects. BEREKET report has been obtained and reviewed prior to prescription and found to be appropriate. Opioid contract was reviewed and signed by the patient, and that they have agreed to all of the terms set forth by our compliance program. Dr. Venegas has reviewed this note and agrees with this plan of care. This note was dictated using voice recognition software and may contain errors or omissions [facility] History I have reviewed the patient's past medical history: Yes Medical History: Reports:: Asthma, Deep Vein Thrombosis, Gastroesophageal Reflux Disease(GERD), Gastrointestinal Bleed, Heart Murmur, Hiatal Hernia, Hypertension, Lung Disease, Migraine, MRSA, Seizures Denies:: Cancer, Diabetes Mellitus Type 1, Diabetes Mellitus Type 2, Internal Pacemaker *Have you ever received a pneumonia vaccine?: Yes *Have you received a flu vaccine this season?: Yes Other Medical History: Reports: Anemia, Other Laterality Cases: Bilateral: Carpal Tunnel Release, Other Other Surgeries: Yes: Appendectomy, Cholecystectomy, , Hysterectomy- Total, Tubal Ligation. No: Pacemaker Amputation: No Fractures: No - *Social History Smoking Status: Never smoker Alcohol Intake: never Alcohol Intake Frequency:: other Substance Use Type: denies use *Occupational Status:: other Housing: house Household Members: spouse *Travel in the last 8 weeks: None Family Hx:: Diabetes, Heart Attack, Hypertension
[2020-08-23 10:01] VITALS: BP 142/82; PULSE 72; RESP 19; TEMP 36.8; O2SAT 100; BMI 38.9
== END ==
PROVIDERS: PCP Family Medicine; Visit Provider Clinical Nurse Specialist Family Health
DX: M51.16 Intervertebral disc disorders with radiculopathy, lumbar region (principal); M96.1 Postlaminectomy syndrome, not elsewhere classified
CPT/HCPCS: 99212

== ENCOUNTER → 2020-08-31 15:33 | Outpatient (CLI) | payer OTHER, SELFPAY ==
[2020-08-31 16:10] LABS: Basophils # 0.1 K/mm3 (0-0.2); Eosinophils # 0.2 K/mm3 (0.0-0.4); Eosinophils % 2.3 % (0.1-12.0); Hematocrit 37.3 % (37.0-47.0); Hemoglobin 12.7 g/dL (12.2-16.2); Lymphocytes # 2.4 K/mm3 (0.7-4.5); Lymphocytes % 30.6 % (10-50); Mean Corpuscular HGB Conc 34.1 g/dL (31.8-35.4); Mean Corpuscular Hemoglobin 29.3 pg (27.0-31.2); Mean Corpuscular Volume 85.8 fl (81-99); Monocytes # 0.3 K/mm3 (0.1-1.0); Neutrophils # 4.9 K/mm3 (1.8-7.8); Neutrophils % 62.1 % (37.0-80.0); Platelet Count 376 K/mm3 (142-424); Red Blood Count 4.34 M/mm3 (4.20-5.40); Red Cell Distribution Width 13.7 % (11.5-17.5); White Blood Count 7.8 K/mm3 (4.8-10.8)
[2020-08-31 16:38] LABS: Erythrocyte Sedimentation Rate 15 mm/hr (0-20)
[2020-08-31 16:39] LABS: Alanine Aminotransferase 16 U/L (12-78); Albumin Level 4.1 g/dl (3.5-5.0); Albumin/Globulin Ratio 1.2 (1.1-1.8); Alkaline Phosphatase 98 U/L (38-126); Anion Gap 11.1 mEq/L (5-15); Aspartate Amino Transferase 32 U/L (14-36); Bilirubin,Total 0.3 mg/dl (0.2-1.3); Blood Urea Nitrogen 13 mg/dl (7-17); Calcium 9.5 mg/dl (8.4-10.2); Carbon Dioxide 33 mmol/L (22.0-30.0); Chloride 99 mmol/L (98-107); Estimated Glomerular Filt Rate 106 ml/min (>60); GFR (African American) 129 ML/MIN (>60); Globulin 3.4 g/dL (1.3-3.2); Glucose 104 mg/dl (74-100); Potassium 4.1 mmoL/L (3.5-5.1); Sodium 139 mmol/L (136-145); Total Protein,Serum 7.5 g/dl (6.3-8.2)
[2020-08-31 17:11] LABS: Thyroid Stimulating Hormone 1.13 uIU/mL (0.465-4.68)
== END ==
PROVIDERS: Visit Provider Family Medicine
DX: M32.9 Systemic lupus erythematosus, unspecified (principal)
CPT/HCPCS: 80053; 84443; 85025; 85651

== ENCOUNTER → 2020-09-02 09:56 | Outpatient (CLI) | payer OTHER, SELFPAY ==
[2020-09-03 10:47] LABS: Covid-19 Nasal PCR Sendout Lex Not Detected
== END ==
PROVIDERS: PCP Family Medicine; Visit Provider Family Medicine
DX: Z03.818 Encounter for observation for suspected exposure to other biological agents ruled out (principal)
CPT/HCPCS: U0004

== ENCOUNTER → 2020-11-10 10:56 | Outpatient (CLI) | payer OTHER, SELFPAY ==
[2020-11-10 11:00] LABS: MANUAL DIFFERENTIAL MANUAL DIFFERENTIAL (MANUAL DIFF)
[2020-11-10 11:11] LABS: Basophils # 0.1 K/mm3 (0-0.2); Eosinophils # 0.2 K/mm3 (0.0-0.4); Lymphocytes # 2.4 K/mm3 (0.7-4.5); Lymphocytes % 31.3 % (10-50); Mean Corpuscular Volume 82.5 fl (81-99); Monocytes # 0.3 K/mm3 (0.1-1.0); Neutrophils # 4.6 K/mm3 (1.8-7.8); Red Cell Distribution Width 13.8 % (11.5-17.5); White Blood Count 7.5 K/mm3 (4.8-10.8)
[2020-11-10 11:33] LABS: Chloride 97 mmol/L (98-107); Sodium 138 mmol/L (136-145)
[2020-11-10 11:34] LABS: Potassium 3.3 mmoL/L (3.5-5.1)
[2020-11-10 11:36] LABS: Alanine Aminotransferase 22 U/L (12-78); Albumin Level 4.2 g/dl (3.5-5.0); Albumin/Globulin Ratio 1.1 (1.1-1.8); Alkaline Phosphatase 97 U/L (38-126); Anion Gap 11.3 mEq/L (5-15); Aspartate Amino Transferase 23 U/L (14-36); Bilirubin,Total 0.3 mg/dl (0.2-1.3); Blood Urea Nitrogen 9 mg/dl (7-17); Carbon Dioxide 33 mmol/L (22.0-30.0); Estimated Glomerular Filt Rate 106 ml/min (>60); GFR (African American) 129 ML/MIN (>60); Globulin 3.7 g/dL (1.3-3.2); Total Protein,Serum 7.9 g/dl (6.3-8.2)
[2020-11-10 11:37] LABS: Calcium 9.8 mg/dl (8.4-10.2); Glucose 116 mg/dl (74-100)
[2020-11-10 12:44] LABS: Lymphocytes % 38 % (10-50); Monocytes % 2 % (2-9); Neutrophils % 60 % (42-76); Platelet Estimate Normal; RBC Morphology Normal; Total Cells Counted 100
[2020-11-10 12:55] LABS: Eosinophils % 2.8 % (0.1-12.0); Hematocrit 34.9 % (37.0-47.0); Hemoglobin 10.8 g/dL (12.2-16.2); Mean Corpuscular HGB Conc 31.1 g/dL (31.8-35.4); Mean Corpuscular Hemoglobin 25.6 pg (27.0-31.2); Mean Platelet Volume 8.3 fl (7.4-10.4); Platelet Count 396 K/mm3 (142-424); Red Blood Count 4.23 M/mm3 (4.20-5.40)
== END ==
PROVIDERS: Visit Provider Emergency Medicine
DX: R06.02 Shortness of breath (principal); R53.83 Other fatigue
CPT/HCPCS: 36415; 80053; 85007; 85014; 85018; 85048; 85049

== ENCOUNTER 2020-11-21 09:31 | Emergency (ER) | payer OTHER, SELFPAY ==
[2020-11-21 09:35] VITALS: BP 128/63; PULSE 70; RESP 20; TEMP 36.6; O2SAT 100; BMI 38.9
--- NOTE | 2020-11-21 09:52 | HMH.EDUTC ---
[facility] [place] Disposition Clinical Impression: Sinusitis Qualifiers: Sinusitis location: maxillary Chronicity: acute Recurrence: non-recurrent Qualified Code(s): J01.00 - Acute maxillary sinusitis, unspecified Disposition: Home, Self-Care Condition on Discharge: Good Instructions: Sinusitis, Sinus Headache, DI for Sinusitis Additional Instructions: Start antibiotic patient to take as ordered for a full length of time even if you feel better. Sinus infections do not get better overnight. It may take 2-3 days to notice much improvement so be sure to use conservative measures as discussed for symptoms. Flonase 1 spray each nostril daily to help with nasal congestion, sinus and ear pressure/information Increase fluids Humidifier/vaporizer as needed Tylenol and ibuprofen as needed for fever or pain. If symptoms do not improve or get worse return or be seen in the ER Follow-up with primary care this week Prescriptions: Fluticasone Propionate [Flonase 50mcg nasal spray 16gm] 1 spr NS DAILY 14 Days #1 bottle Transmission Status: Pending to [facility] Azithromycin [Zithromax 250mg tab] 250 mg PO DIRECTED #6 tab Transmission Status: Pending to [facility] Referrals: Valentin aDniel MD [Primary Care Provider] - Forms: Work/School Release Time of Disposition: 10:01 Medical Decision Making - Loi Inquiry Pt receiving controlled substance: No Vital Signs: 11/21/20 09:35 Temperature 97.8 F Temperature Source Oral Pulse Rate [Right Brachial] 70 Respiratory Rate 20 Blood Pressure [Right Arm] 128/63 Blood Pressure Mean [Right Arm] 84 Blood Pressure Source [Right Arm] Automatic Cuff Blood Pressure Position [Right Arm] Sitting 02 Sat by Pulse Oximetry 100 Oxygen Delivery Method Room Air [facility] [place] HPI - General Chief complaint: Urgent Treatment Center Stated complaint: possible sinus infection Time Seen by Provider: 11/21/20 09:53 Mode of Arrival: Ambulatory Source of Information: Patient Limitations: No Limitations Description of Symptoms (Recalled from Triage Doc. by RN): PATIENT C/O SINUS CONGESTION AND PRESSURE. SHE ALSO IS REQUESTING A WORK NOTE D/T MISSING WORK AFTER SECOND COVID VACCINE, STATES SHE WAS HAVING BODY ACHES AND FEVER HEENT Symptoms (Recalled from RN notes): Yes Resp Symptoms (Recalled from RN notes): No Skin Symptoms (Recalled from RN notes): No MS Symptoms (Recalled from RN notes): No Functional Status (Recalled from RN notes): WNL - History of Present Illness Provider Complaint: 50 yr old female presents for sinus pressure,and green/yellow thick drainage. pt states symptoms been going on for 2 weeks but over the last 3 days they have gotten worse and color changed. Pt states she received her 2nd covid vaccine and on fri she developed body aches,chills,low grade fever and nausea. pt does have lupus. - Related Data Home Medications Medication Instructions Recorded Confirmed Calcium Carbonate/Vitamin D3 1 each PO DAILY 05/22/18 08/31/20 [Calcium 500-Vit D3 125 Caplet] duloxetine 60 mg capsule,delayed 60 mg PO DAILY 11/13/18 08/31/20 release tizanidine 4 mg tablet 4 mg PO QHS #90 tab 07/28/19 08/31/20 Previous Rx's Medication Instructions Recorded albuterol sulfate 90 mcg/actuation 1 puff INHALATION Q6H PRN #8 g 02/25/19 aerosol inhaler Pregabalin [Lyrica 75mg Cap] 75 mg PO BID #60 cap 07/16/20 hydrochlorothiazide 25 mg tablet 25 mg PO DAILY #90 tab 07/20/20 losartan 50 mg tablet 50 mg PO BID 90 Days #180 tab 08/17/20 Hydrocodone/Acetaminophen [[place] 1 tab PO QID #120 tab 08/20/20 10-325 Tablet] furosemide 20 mg tablet 20 mg PO DAILY PRN #30 tab 08/31/20 levofloxacin 500 mg tablet 500 mg PO DAILY #10 tab 08/31/20 fluconazole 100 mg tablet 100 mg PO ONCE 1 Days #1 tab 09/03/20 Hydrocodone/Acetaminophen [[place] 1 tab PO QID #120 tab 09/16/20 10-325 Tablet] rivaroxaban 20 mg tablet See Rx Instructions .ROUTE 09/20/20 .COMPLEX #90 tab esomeprazole magnesi
[2020-11-21 10:01] VITALS: BP 128/63; PULSE 70; RESP 20; TEMP 36.6; O2SAT 100
== END 2020-11-21 10:06 | disposition home or self-care (01) ==
PROVIDERS: Emergency Provider Nurse Practitioner Family; PCP Family Medicine
DX: J01.00 Acute maxillary sinusitis, unspecified (principal); M32.9 Systemic lupus erythematosus, unspecified; J45.909 Unspecified asthma, uncomplicated; K21.9 Gastro-esophageal reflux disease without esophagitis; Z79.899 Other long term (current) drug therapy; Z88.0 Allergy status to penicillin; Z88.2 Allergy status to sulfonamides; Z88.8 Allergy status to other drugs, medicaments and biological substances
CPT/HCPCS: 99202; G0463

== ENCOUNTER → 2020-12-02 12:39 | Outpatient (POV) | payer OTHER, SELFPAY ==
--- NOTE | 2020-12-02 12:46 | HMH.VVPMSO ---
[facility] PM Virtual Visit SOAP Consent for virtual visit:: With the recent concerns about the COVID-19, we are trying to minimize exposure to you by shifting to telehealth appointments whenever possible. It restricts me from seeing you in person, but the trade off is protecting you during this pandemic. Can you see and hear me okay, and do you consent to this option? If not, I would be happy to see if we can reschedule your appointment in the future, when feasible. Has patient consented to this virtual visit?: Yes Subjective:: Pleasant 50-year-old white female who presents today for medication refills and follow-up. Patient is presenting for via telehealth. She rates her pain a 4 out of 10. Patient's biggest complaint today is bilateral leg pain. Patient has numbness, tingling, burning, and aches and [id number] in her bilateral lower extremities. Patient has had this ever since her back surgery. Patient had an implantable nerve stimulator however it was removed due to infection. At this time she is not a candidate for any additional injective therapies. Patient has tried conservative therapies including medications and physical therapy in the past. Patient and I discussed potentially utilizing IFC device she is interested in pursuing this we will prescribe an IFC device with no replacement. We will also continue her [place] 10 mg 1 p.o. 4 times daily and her Lyrica 75 mg 1 p.o. twice daily. Patient is continuing on her blood thinners. ROS General: no recent weight change, no fever, no sleep disturbances Respiratory: no cough, no shortness of air, no recurring pulmonary infections Cardiovascular/Peripheral Vascular: No chest pain, No palpitations, no edema, no shortness of breath. Gastrointestinal: no new onset incontinence, normal bowel movements reported Genitourinary: no new onset incontinence Musculoskeletal: Back pain, leg pain Psychiatric: normal mood/ affect Neurological: [denies new onset weakness in extremities], [denies new onset balance issues] Objective:: physical exam: Constitutional: Healthy appearing, well-developed, alert, in no acute distress Psychiatric: Judgment and insight intact, Alert and oriented x4 Mood and affect: Mood normal, affect appropriate Head and face: Inspection: Normocephalic atraumatic, extraocular movement intact Respiratory: Breathing nonlabored, nondyspneic Cardiovascular: No cyanosis, clubbing, or edema observed Skin: Head and neck: Skin with no lesions or rash observed Gait: Able to walk without assistive device: Able to heel and toe walk Neurologic: Sensation grossly intact per patient Musculoskeletal: Decreased range of motion noted lumbar spine Assessment:: Degenerative disc disease lumbar spine lumbar radiculopathy, postlaminectomy syndrome, back pain Plan:: We will continue her [place] 10 mg 1 p.o. 4 times daily and Lyrica 75 mg 1 p.o. twice daily. Patient is not due a refill today. We will continue her medications and see her back in 3 months. Patient's been instructed to call the office if she has any issues prior to her next appointment. Loi reviewed through [employer]. This is appropriate as is her drug screens. We will also prescribe an IFC device with no replacement. Dr. Venegas has reviewed this note and agrees with this plan of care. This note was dictated using voice recognition software and may contain errors or omissions this encounter was performed as a telemedicine visit via secure 2 way video and audio to minimize risk and transmission of Covid-19. The patient and we understand the limitations of a telemedicine visit including inability to check reflexes, possibly missing subtle findings on physical exam. Alternative options were presented to the patient and the patient elected to proceed with the visit. We specifically discussed risk factors for Covid-19 including age, heart or lung disease, diabetes, immunosuppression and travel. We also discussed that NSAIDs
== END ==
PROVIDERS: Visit Provider Clinical Nurse Specialist Family Health
DX: M51.16 Intervertebral disc disorders with radiculopathy, lumbar region (principal); M96.1 Postlaminectomy syndrome, not elsewhere classified
CPT/HCPCS: 99212; G0463

== ENCOUNTER → 2020-12-31 11:33 | Outpatient (CLI) | payer OTHER, SELFPAY ==
--- NOTE | 2020-12-31 11:58 | CA_ITS ---
APPROVED REPORT Bilateral Lower Extremity Venous Study for Paid Search Manager: YANG Indications Lower Extremity Pain: Lower Extremity Edema: Left edema PREVIOUS dvt HISTORY Vein Imaging CFV (L): compressive, spontaneous, phasic, augmentation SFJ (L): compressive, spontaneous, phasic, augmentation FEM (L): compressive, spontaneous, phasic, augmentation POP (L): compressive, spontaneous, phasic, augmentation DFV (L): compressive, spontaneous, phasic, augmentation PTV (L): Compressible GSV (L): Compressible Peroneals (L):Compressible GAS (L): Compressible Findings No evidence of DVT or superficial thrombophlebitis in the veins scanned of the left lower extremity. Jenelle Sue notified Conclusion No evidence of DVT or superficial thrombophlebitis in the veins scanned of the left lower extremity. Jenelle Sue notified Electronically signed by : Luis Antonio Gardner MD 12/31/2020 16:43:52
[2020-12-31 12:28] LABS: Basophils # 0.1 K/mm3 (0-0.2); Basophils % 1.9 % (0.1-2.0); Eosinophils # 0.1 K/mm3 (0.0-0.4); Hematocrit 35.6 % (37.0-47.0); Hemoglobin 10.9 g/dL (12.2-16.2); Lymphocytes # 2.1 K/mm3 (0.7-4.5); Lymphocytes % 34.6 % (10-50); Mean Corpuscular HGB Conc 30.6 g/dL (31.8-35.4); Mean Corpuscular Hemoglobin 25.3 pg (27.0-31.2); Mean Corpuscular Volume 82.7 fl (81-99); Mean Platelet Volume 8.3 fl (7.4-10.4); Monocytes # 0.2 K/mm3 (0.1-1.0); Monocytes % 3.8 % (1.7-9.3); Neutrophils # 3.6 K/mm3 (1.8-7.8); Neutrophils % 57.7 % (37.0-80.0); Platelet Count 336 K/mm3 (142-424); Red Blood Count 4.31 M/mm3 (4.20-5.40); Red Cell Distribution Width 14.2 % (11.5-17.5); White Blood Count 6.2 K/mm3 (4.8-10.8)
[2020-12-31 12:42] LABS: Chloride 102 mmol/L (98-107); Sodium 137 mmol/L (136-145)
[2020-12-31 12:45] LABS: Blood Urea Nitrogen 14 mg/dl (7-17); Calcium 9.4 mg/dl (8.4-10.2); Carbon Dioxide 29 mmol/L (22.0-30.0); Chol/HDL Ratio 2.6 (1-3.5); Cholesterol 206 mg/dl (140-200); Estimated Glomerular Filt Rate 131 ml/min (>60); GFR (African American) 159 ML/MIN (>60); Glucose 110 mg/dl (74-100); HDL Cholesterol 80 mg/dl (40-60); Iron 40 ug/dL (37-170); Triglycerides 135 mg/dl (30-150); VLDL Cholesterol 27 mg/dL (0-40)
[2020-12-31 12:55] LABS: Total Iron Binding Capacity 510 ug/dL (265-497)
[2020-12-31 12:56] LABS: Direct LDL Cholesterol 89.16 mg/dL (100-129)
[2020-12-31 13:04] LABS: 25-OH Vitamin D, Total 25.8 ng/mL (30-100)
[2020-12-31 13:17] LABS: Thyroid Stimulating Hormone 1.09 uIU/mL (0.465-4.68)
[2020-12-31 13:21] LABS: Ferritin 5.29 ng/ml (6.24-137)
[2020-12-31 13:27] LABS: Hemoglobin A1C 5.6 % (4.0-6.0)
== END ==
PROVIDERS: PCP Nurse Practitioner Family; Visit Provider Nurse Practitioner Family
DX: D64.9 Anemia, unspecified (principal); E87.6 Hypokalemia; R53.83 Other fatigue; R73.9 Hyperglycemia, unspecified; Z00.00 Encounter for general adult medical examination without abnormal findings; M79.605 Pain in left leg; M79.662 Pain in left lower leg
CPT/HCPCS: 36415; 80048; 80061; 82306; 82728; 83036; 83540; 83550; 84436; 84443; 85025; 93971

== ENCOUNTER → 2021-02-11 11:51 | Outpatient (CLI) | payer BC, OTHER, SELFPAY ==
--- NOTE | 2021-02-11 11:54 | XR_ITS ---
PROCEDURE: XR FOOT WT BEARING LT 3V CLINICAL INDICATION: foot pain COMPARISON: No exams were available for comparison FINDINGS: No fracture or dislocation. No lytic or blastic change. There is normal mineralization. The joint spaces are well-preserved. No significant degenerative/arthritic changes. No erosive changes evident. Other findings:Small calcaneal spur noted IMPRESSION: No acute findings. Dictated by: Luis Antonio Gardner MD 02/11/2021 16:15 Luis Antonio Gardner MD in [place] 02/11/2021 16:15
--- NOTE | 2021-02-11 11:54 | XR_ITS ---
PROCEDURE: XR ANKLE WT BEARING LT MIN 3V CLINICAL INDICATION: ankle pain COMPARISON: No exams were available for comparison FINDINGS: Bones: No fracture or dislocation. No lytic or blastic change. There is normal mineralization. Joints: The joint spaces are well-preserved. No significant degenerative/arthritic changes. No erosive changes evident. Other findings:Small bone island in the medial malleolar region. IMPRESSION: No acute findings. Dictated by: Luis Antonio Gardner MD 02/11/2021 15:23 Luis Antonio Gardner MD in [place] 02/11/2021 15:23
== END ==
PROVIDERS: PCP Family Medicine; Visit Provider Podiatrist
DX: M79.673 Pain in unspecified foot (principal)
CPT/HCPCS: 73610; 73630

== ENCOUNTER → 2021-02-21 11:20 | Outpatient (CLI) | payer BC, OTHER, SELFPAY ==
[2021-02-21 11:41] LABS: Basophils # 0.1 K/mm3 (0-0.2); Basophils % 0.6 % (0.1-2.0); Eosinophils # 0.1 K/mm3 (0.0-0.4); Eosinophils % 0.6 % (0.1-12.0); Hematocrit 32.8 % (37.0-47.0); Hemoglobin 10.5 g/dL (12.2-16.2); Lymphocytes # 1.9 K/mm3 (0.7-4.5); Lymphocytes % 20.7 % (10-50); Mean Corpuscular HGB Conc 31.9 g/dL (31.8-35.4); Mean Corpuscular Hemoglobin 24.8 pg (27.0-31.2); Mean Corpuscular Volume 77.8 fl (81-99); Mean Platelet Volume 8.1 fl (7.4-10.4); Monocytes # 0.3 K/mm3 (0.1-1.0); Monocytes % 3.1 % (1.7-9.3); Neutrophils # 6.8 K/mm3 (1.8-7.8); Neutrophils % 74.9 % (37.0-80.0); Platelet Count 386 K/mm3 (142-424); Red Blood Count 4.22 M/mm3 (4.20-5.40); Red Cell Distribution Width 14.5 % (11.5-17.5); White Blood Count 9.1 K/mm3 (4.8-10.8)
[2021-02-21 12:06] LABS: Iron 31 ug/dL (37-170)
[2021-02-21 12:13] LABS: Total Iron Binding Capacity 553 ug/dL (265-497)
[2021-02-21 12:40] LABS: Ferritin 4.62 ng/ml (6.24-137)
== END ==
PROVIDERS: Visit Provider Family Medicine
DX: D64.9 Anemia, unspecified (principal); R53.83 Other fatigue
CPT/HCPCS: 82728; 83540; 83550; 85025

== ENCOUNTER → 2021-02-28 10:03 | Outpatient (POV) | payer BC, OTHER, SELFPAY ==
[2021-02-28 10:16] VITALS: BP 132/85; PULSE 74; RESP 18; O2SAT 98; BMI 38.9
--- NOTE | 2021-02-28 10:28 | P.CONS_ITS ---
[facility] Pain Management SOAP Note Subjective:: Patient is a pleasant 51-year-old white female who presents today for medication refills and follow-up. Patient's been treated for pain secondary to postlaminectomy syndrome lumbar spine with lumbar radiculopathy. Patient currently rates her pain a 5 out of 10 she is currently managed with [place] 10 mg 1 p.o. 4 times daily and Lyrica 75 mg 1 p.o. twice daily. She is utilizing her IFC device patient is doing well with this stating that it controls her back pain significantly. Patient's not a candidate for additional injective therapies due to anticoagulation therapy. ROS General: no recent weight change, no fever, no sleep disturbances Respiratory: no cough, no shortness of air, no recurring pulmonary infections Cardiovascular/Peripheral Vascular: No chest pain, No palpitations, no edema, no shortness of breath. Gastrointestinal: no new onset incontinence, normal bowel movements reported Genitourinary: no new onset incontinence Musculoskeletal: Back pain Psychiatric: normal mood/ affect Neurological: [denies new onset weakness in extremities], [denies new onset balance issues] Objective:: Physical Exam General: Alert and oriented x3, no acute distress, pleasant and cooperative, [on room air] Lungs: Resps E/U, Symmetrical chest expansion, Eyes: PERRL Musculoskeletal: Flexion and extension of lumbar spine somewhat guarded secondary to pain, deep tendon reflexes normal, strength in upper and lower extremities [5/5], slightly antalgic gait noted Neurological: speech clear, scuba diver equal, no gross sensory deficits Assessment:: Degenerative disc disease lumbar spine lumbar radiculopathy, back pain, postlami nectomy syndrome Plan:: We will continue her Lyrica 75 mg 1 p.o. twice daily and [place] 10 mg 1 p.o. 4 times daily. Her current morphine equivalent is 40. Bereket #[id number] reviewed and appropriate. Patient's been instructed to call the office if she has any issues prior to her next appointment. We will follow up with her in [address] Venegas has reviewed this note and agrees with this plan of care. This note was dictated using voice recognition software and may contain errors or omissions Patient has been prescribed a controlled substance after being counseled on the medication, medication safety, and possible side effects. BEREKET report has been obtained and reviewed prior to prescription and found to be appropriate. Opioid contract was reviewed and signed by the patient, and that they have agreed to all of the terms set forth by our compliance program. [facility] History I have reviewed the patient's past medical history: Yes Medical History: Reports:: Asthma, Deep Vein Thrombosis, Gastroesophageal Reflux Disease(GERD), Gastrointestinal Bleed, Heart Murmur, Hiatal Hernia, Hypertension, Lung Disease, Migraine, MRSA, Seizures Denies:: Cancer, Diabetes Mellitus Type 1, Diabetes Mellitus Type 2, Internal Pacemaker *Have you ever received a pneumonia vaccine?: Yes *Have you received a flu vaccine this season?: Yes Other Medical History: Reports: Anemia, Other Laterality Cases: Bilateral: Carpal Tunnel Release, Other Other Surgeries: Yes: Appendectomy, Cholecystectomy, , Hysterectomy- Total, Tubal Ligation. No: Pacemaker Amputation: No Fractures: No - *Social History Smoking Status: Never smoker Alcohol Intake: never Alcohol Intake Frequency:: other Substance Use Type: denies use *Occupational Status:: other Housing: house Household Members: spouse *Travel in the last 8 weeks: None Family Hx:: Diabetes, Heart Attack,
== END ==
PROVIDERS: Visit Provider Clinical Nurse Specialist Family Health
DX: M51.16 Intervertebral disc disorders with radiculopathy, lumbar region (principal); M96.1 Postlaminectomy syndrome, not elsewhere classified
CPT/HCPCS: 99212; G0463

== ENCOUNTER → 2021-03-01 14:45 | Outpatient (CLI) | payer BC, OTHER, SELFPAY ==
[2021-03-01 14:52] LABS: Basophils # 0.1 K/mm3 (0-0.2); Basophils % 1.2 % (0.1-2.0); Eosinophils # 0.1 K/mm3 (0.0-0.4); Eosinophils % 1.5 % (0.1-12.0); Hemoglobin 10.9 g/dL (12.2-16.2); Lymphocytes # 3.4 K/mm3 (0.7-4.5); Lymphocytes % 34.8 % (10-50); Mean Corpuscular HGB Conc 32.1 g/dL (31.8-35.4); Mean Corpuscular Hemoglobin 24.7 pg (27.0-31.2); Mean Corpuscular Volume 76.7 fl (81-99); Mean Platelet Volume 8.6 fl (7.4-10.4); Monocytes # 0.4 K/mm3 (0.1-1.0); Monocytes % 4.3 % (1.7-9.3); Neutrophils # 5.7 K/mm3 (1.8-7.8); Neutrophils % 58.2 % (37.0-80.0); Platelet Count 456 K/mm3 (142-424); Red Blood Count 4.43 M/mm3 (4.20-5.40); Red Cell Distribution Width 14.5 % (11.5-17.5); White Blood Count 9.9 K/mm3 (4.8-10.8)
[2021-03-01 14:57] LABS: Chloride 97 mmol/L (98-107); Potassium 3.2 mmoL/L (3.5-5.1); Sodium 134 mmol/L (136-145)
[2021-03-01 14:59] LABS: Alanine Aminotransferase 15 U/L (12-78); Blood Urea Nitrogen 15 mg/dl (7-17); Estimated Glomerular Filt Rate 106 ml/min (>60); GFR (African American) 128 ML/MIN (>60)
[2021-03-01 15:00] LABS: Albumin Level 4.2 g/dl (3.5-5.0); Albumin/Globulin Ratio 1.3 (1.1-1.8); Alkaline Phosphatase 91 U/L (38-126); Anion Gap 11.2 mEq/L (5-15); Aspartate Amino Transferase 23 U/L (14-36); Bilirubin,Total 0.3 mg/dl (0.2-1.3); Calcium 9.2 mg/dl (8.4-10.2); Carbon Dioxide 29 mmol/L (22.0-30.0); Globulin 3.3 g/dL (1.3-3.2); Glucose 129 mg/dl (74-100); Total Protein,Serum 7.5 g/dl (6.3-8.2)
[2021-03-01 15:16] LABS: T4 (Thyroxine) 11.9 ug/dl (5.53-11.0)
[2021-03-01 15:29] LABS: Thyroid Stimulating Hormone 3.84 uIU/mL (0.465-4.68)
== END ==
PROVIDERS: Visit Provider Family Medicine
DX: R60.9 Edema, unspecified (principal); Z79.899 Other long term (current) drug therapy
CPT/HCPCS: 80053; 84436; 84443; 85025

== ENCOUNTER 2021-03-03 13:25 | Outpatient (CLI) | payer BC, OTHER, SELFPAY ==
[2021-03-03 13:45] VITALS: BP 137/71; PULSE 75; RESP 18; TEMP 36.8; O2SAT 100
[2021-03-03 14:26] VITALS: BP 148/73; PULSE 71; RESP 18
== END 2021-03-03 14:26 | disposition home or self-care (01) ==
LOC: INF 13:32
PROVIDERS: Visit Provider Internal Medicine Medical Oncology
DX: D50.9 Iron deficiency anemia, unspecified (principal)
CPT/HCPCS: 96365; J1756

== ENCOUNTER 2021-03-09 13:40 | Outpatient (CLI) | payer BC, OTHER, SELFPAY ==
[2021-03-09 14:15] VITALS: BP 148/69; PULSE 78; RESP 18; TEMP 36.8; O2SAT 100
[2021-03-09 14:55] VITALS: BP 127/73; PULSE 76; RESP 16
== END 2021-03-09 15:00 | disposition home or self-care (01) ==
LOC: INF 13:46
PROVIDERS: Visit Provider Internal Medicine Medical Oncology
DX: D50.9 Iron deficiency anemia, unspecified (principal)
CPT/HCPCS: 96365; J1756

== ENCOUNTER → 2021-03-11 15:04 | Outpatient (CLI) | payer BC, OTHER, SELFPAY ==
--- NOTE | 2021-03-11 15:04 | CA_ITS ---
APPROVED REPORT EXAM: Comprehensive 2D, Doppler, and color-flow Echocardiogram Polygraph Technician: Kim Luther RVT Ht: 5 ft 3 in Wt: 230lbs BSA: 2.05 BP: 144/78 mmHg Indications: MURMUR,EDEMA,HX TIA,GERD,LEMUEL,LUPUS 2D Dimensions LVOT 2.13 cm (M/F) 1.5-2.5 M-Mode Dimensions RVDd 2.39 cm (0.9-2.6) LA Diam 3.77 cm (1.9-4.0) LVDd 5.02 cm (3.5-5.7) Ao Diam 3.22 cm (2.0-3.7) LVDs 2.89 cm (3.5-5.7) IVSd 0.99 cm (0.6-1.1) PWd 0.61 cm (0.6-1.1) EF (Teich) 73.30% FS 42.40% EDV (Teich) 119.30 mL TAPSE 2.56 (<1.7) ESV (Teich) 31.90 mL LV Diastology E Decel Time 237.00 (160-240 msec) E/A Ratio 0.9 MED E' 7.70 (< 7 cm/sec) E'/MED E' Ratio 13.83 (>14) LAT E' 11.80 (<10 cm/sec) E/LAT E' Ratio 9.03 (>14) Aortic Valve AO Peak GR. 16.10 mmHg Mitral Valve MV E Max Skyler. 107.00 (40-130 cm/s) MV A Velocity 122.00 (40-130 cm/s) E/A Ratio 0.88 MV Decel. Time 237.00 (160-240 ms) MV PHT 69.00 ms Pulmonary Valve PV Peak Velocity 147.00 (50-150 cm/s) Left Ventricle Left atrium is upper limit of the normal size, left ventricle is normal size, left ventricle wall thickness is normal, there is preserved left ventricular systolic function, visually estimated ejection fraction 55% with no regional wall motion abnormality. Diastolic parameters are inconclusive. Right Ventricle Right atrium and right ventricle are normal size and contractility. Aortic Valve Aortic valve is minimally thickened and fibrosed, there is no aortic stenosis or aortic insufficiency. Mitral Valve Mitral valve is grossly normal, there is trace mitral regurgitation. Tricuspid Valve Tricuspid grossly normal, there is trace tricuspid regurgitation. Pulmonic Valve Pulmonic valve is poorly visualized. Pulmonic outflow velocity is mildly increased does not represent significant pulmonic stenosis Great Vessels Aortic root is normal size. Pericardium No significant pericardial effusion noted. Conclusion 1. Normal left ventricular size, preserved left ventricular systolic function, visually estimated ejection fraction 55% with no regional wall motion abnormality, diastolic parameters are inconclusive. 2. Trace mitral and tricuspid regurgitation. 3. Mildly increased pulmonic outflow velocity does not reveal significant pulmonic stenosis, there is no significant pulmonic insufficiency seen 4. No significant pericardial effusion noted. Electronically signed by : Ted Law, 03/11/2021 19:37:30
--- NOTE | 2021-03-11 15:34 | MM_ITS ---
PROCEDURE INFORMATION: Exam: MG Screening 3D Mammography Exam date and time: 03/11/2021 3:34 PM Age: 51 years old Clinical indication: Encounter for screening mammogram for malignant neoplasm of breast TECHNIQUE: Imaging protocol: Screening tomosynthesis and 2D mammography including computer-aided detection (CAD) when performed. COMPARISON: No relevant prior studies available. FINDINGS: MAMMOGRAPHY: Breast composition: The breast tissue is composed of scattered areas of fibroglandular density. Mass: None. Architectural distortion: None. Calcifications: No suspicious calcifications. Asymmetric density: None. Skin thickening: None. Axillary adenopathy: None. IMPRESSION: No mammographic evidence of malignancy. Annual screening is recommended unless otherwise clinically indicated. ASSESSMENT: BI-RADS Category 1: Negative
== END ==
PROVIDERS: PCP Family Medicine; Visit Provider Family Medicine
DX: R01.1 Cardiac murmur, unspecified (principal); R60.0 Localized edema; Z12.31 Encounter for screening mammogram for malignant neoplasm of breast
CPT/HCPCS: 77063; 77067; 93306

== ENCOUNTER 2021-03-17 10:22 | Outpatient (CLI) | payer BC, OTHER, SELFPAY ==
[2021-03-17 10:53] VITALS: BP 142/77; PULSE 68; RESP 17; TEMP 36.6; O2SAT 98
[2021-03-17 11:51] VITALS: BP 138/83; PULSE 62; RESP 17; TEMP 36.5; O2SAT 97
== END 2021-03-17 11:55 | disposition home or self-care (01) ==
LOC: INF 10:22
PROVIDERS: PCP Family Medicine; Visit Provider Internal Medicine Cardiovascular Disease
DX: D50.9 Iron deficiency anemia, unspecified (principal)
CPT/HCPCS: 96365; J1756

== ENCOUNTER 2021-03-22 11:05 | Outpatient (CLI) | payer BC, OTHER, SELFPAY ==
[2021-03-22 11:50] VITALS: BP 151/83; PULSE 73; RESP 18; TEMP 36.7; O2SAT 100
[2021-03-22 12:50] VITALS: BP 148/81; PULSE 78; RESP 18; O2SAT 99
== END 2021-03-22 12:50 | disposition home or self-care (01) ==
LOC: INF 11:09
PROVIDERS: Visit Provider Internal Medicine Medical Oncology
DX: D64.9 Anemia, unspecified (principal)
CPT/HCPCS: 96374; J1756

== ENCOUNTER 2021-03-23 11:54 | Observation (INO) | payer BC, OTHER, SELFPAY ==
[2021-03-23] VITALS (17 sets, daily range): BP systolic 99–144; BP diastolic 55–80; PULSE 60–87; RESP 16–20; TEMP 36.6–36.9; O2SAT 94–995; BMI 43.9
--- NOTE | 2021-03-23 | IR_ITS ---
APPROVED REPORT Patient Location: Inpatient Program Coordinator: DEEPAK Phillip RT (R) PROCEDURES Left heart catheterization Left ventriculogram Selective coronary angiogram INDICATION Recalcitrant angina pectoris, Unstable angina Informed consent was obtained prior to the procedure. COMPLICATIONS None Estimated Blood Loss: Less than 10 mls TECHNIQUE One percent lidocaine used to anesthetize the right anterior aspect of the wrist. The right radial artery was accessed via the Seldinger technique. A 6 Sinhala sheath was placed in the right radial artery. 2.5 mg of verapamil, 800 mcg of nitroglycerin, 1mg Lidocaine and 5000 U Heparin were given through the arterial sheath. The trap catheter was also used to perform left heart catheterization, left ventriculogram and selective coronary angiogram. At the end of the procedure the sheath was removed good hemostasis was achieved using Traclet band, patient was transferred to the postop holding area in stable condition. ANGIOGRAPHIC RESULTS The left main artery Normal The left anterior descending artery Normal The circumflex artery Normal The right coronary artery Dominant normal The MONGE ventriculogram reveals Hyperdynamic 75% The left ventricular end-diastolic pressure 30 mmHg IMPRESSION Normal coronary arteries Hyperdynamic ventricle consistent with diastolic dysfunction and/or hypertensive heart disease Elevated LVEDP consistent with diastolic dysfunction and/or hypertensive heart disease PLAN 1. Treatment of diastolic dysfunction/hypertensive heart disease Electronically signed by : Angel Vega, 03/23/2021 15:59:39
--- NOTE | 2021-03-23 12:18 | PC.NURSE ---
TO ED FOR DIRECT ADMIT. PT WITH C/O SOB, SWELLING FEET AND ANKLES. PT DENIES FEVER, CHILLS, NAUSEA, VOMITING.
--- NOTE | 2021-03-23 12:54 | ECG_ITS ---
APPROVED REPORT Exam: Resting ECG HR:72 bpm ECG Measurements Heart Rate 72 AXES KS 176 P 46 QRSd 82 QRS 43 QT 424 T 37 QTc 464 Conclusion Normal sinus rhythm Normal ECG Electronically signed by : Genaro Lucia, 03/26/2021 11:07:11
--- NOTE | 2021-03-23 13:08 | XR_ITS ---
PROCEDURE: XR CHEST 2V CLINICAL HISTORY: soa,chf? COMPARISON: CT AGCHEST CT angio chest from 05/22/2018 CR CXR2V XR chest 2V from 11/01/2018 CR CXR2V XR chest 2V from 11/07/2018 CR XR CHEST 2V from 09/18/2019 FINDINGS: The cardiomediastinal silhouette and pulmonary vascularity are within normal limits. No lobar consolidation or collapse is evident. The azygos region is slightly prominent and could be related to prominence of the azygos vein or mildly enlarged azygos lymph node. Consider follow-up confirm stability. The remaining lungs are clear No acute bony abnormalities. IMPRESSION: No acute finding. Mild prominence of the azygos region which could be due to mildly prominent lymph node or enlarged azygos vein from plasma volume overload. Consider follow-up to confirm stability. Dictated by: Luis Antonio Gardner MD 03/23/2021 13:59 Luis Antonio Gardner MD in [place] 03/23/2021 13:59
--- NOTE | 2021-03-23 13:08 | HMH.HP ---
*Admission Date: 03/23/21 *Chief complaint: soa *History of present illness: 51-year-old female who was directly admitted to the hospital from her primary care provider's office for shortness of breath,o2 sat 93% at rest and edema 3+. The patient states that she has been having bilateral lower extremity edema for the last several months and it continues to worsen. Patient states she has gained 9 lbs since sat. She states that her shortness of breath started yesterday, states that it started abruptly and has continued to worsen as the day progressed. She states that she is short of breath at rest and it is worse with exertion. She denies any chest pain or pressure. She states that she does have a significant family history of coronary disease and [place] on both sides of her family. Dr. Vega contacted and Patient admitted to hospital for fluid overload and cardiology consult. [facility] History I have reviewed the patient's past medical history: Yes Medical History: Reports:: Asthma, Deep Vein Thrombosis, Gastroesophageal Reflux Disease(GERD), Gastrointestinal Bleed, Heart Murmur, Hiatal Hernia, Hypertension, Lung Disease, Migraine, MRSA, Seizures Denies:: Cancer, Diabetes Mellitus Type 1, Diabetes Mellitus Type 2, Internal Pacemaker *Have you ever received a pneumonia vaccine?: No *Have you received a flu vaccine this season?: Yes Other Medical History: Reports: Anemia, Arthritis, Fibromyalgia, Other Laterality Cases: Bilateral: Carpal Tunnel Release, Other Other Surgeries: Yes: Appendectomy, Cholecystectomy, , Hysterectomy-Total, Tubal Ligation. No: Pacemaker Amputation: No Fractures: No - *Social History Smoking Status: Never smoker Alcohol Intake: never Alcohol Intake Frequency:: other Substance Use Type: denies use *Occupational Status:: employed Housing: house Household Members: spouse *Travel in the last 8 weeks: None Family Hx:: Diabetes, Heart Attack, Hypertension Review of Systems - Review of Systems Review of systems:: pertinent systems reviewed and negative unless documented below - Constitutional Reports lack of energy, Reports weakness, Reports weight gain, Denies body ache(s), Denies fatigue - Eyes Denies blurry vision - ENT Denies bleeding gums - *Cardiovascular Reports shortness of breath, Reports shortness of breath with activity, Reports generalized swelling, Reports leg swelling, Reports shortness of breath when lying down, Denies chest pain, Denies chest pain with activity - *Respiratory Reports shortness of breath, Reports shortness of breath with activity - *Gastrointestinal Denies belching, Denies nausea, Denies vomiting - *Genitourinary Denies urinary incontinence - *Musculoskeletal Denies decreased muscle mass, Denies limited joint movement - Integumentary/Breasts Denies rash - *Neurologic Denies dizziness - Psychiatric Denies lack of enjoyment - Endocrine Denies excessive sweating - Hematologic/Lymphatic Denies easy bruising - Allergic/Immunologic Denies wheezing Meds Home Medications Medication Instructions Recorded Confirmed Type Calcium Carbonate/Vitamin D3 1 each PO DAILY 05/22/18 03/23/21 History [Calcium 500-Vit D3 125 Caplet] duloxetine 60 mg capsule,delayed 60 mg PO HS 11/13/18 03/23/21 History release tizanidine 4 mg tablet 4 mg PO TIDP PRN #90 tab 07/28/19 03/23/21 History Ergocalciferol (Vitamin D2) 50,000 unit PO WEEKLY 03/09/21 03/23/21 History [Drisdol] Hydrocodone/Acetaminophen 1 each PO QIDP PRN 03/09/21 03/23/21 History [Hydrocodone-Acetamin 10-325 mg] Hydroxychloroquine Sulfate 200 mg PO BID 03/09/21 03/23/21 History [Plaquenil] Potassium Chloride [K-Tab ER 10 10 meq PO DAILY 03/09/21 03/23/21 History mEq] Pregabalin 75 mg PO BID 03/09/21 03/23/21 History Rosuvastatin Calcium 20 mg PO DAILY 03/17/21 03/23/21 History Spironolactone [Spironolactone 25 mg PO DAILY 03/17/21 03/23/21 History 25mg Tablet] esomeprazole m
--- NOTE | 2021-03-23 13:08 | PC.NURSE ---
PT SEEN BY CARDIOLOGY GUILLERMO CHEN APRN
[2021-03-23 13:30] LABS: Basophils # 0.1 K/mm3 (0-0.2); Basophils % 1.2 % (0.1-2.0); Eosinophils # 0.1 K/mm3 (0.0-0.4); Eosinophils % 1.7 % (0.1-12.0); Hematocrit 32.2 % (37.0-47.0); Hemoglobin 10.3 g/dL (12.2-16.2); Lymphocytes # 2.1 K/mm3 (0.7-4.5); Lymphocytes % 31.6 % (10-50); Mean Corpuscular HGB Conc 32.1 g/dL (31.8-35.4); Mean Corpuscular Hemoglobin 25.8 pg (27.0-31.2); Mean Corpuscular Volume 80.4 fl (81-99); Mean Platelet Volume 8.3 fl (7.4-10.4); Monocytes # 0.3 K/mm3 (0.1-1.0); Monocytes % 4.2 % (1.7-9.3); Neutrophils % 61.4 % (37.0-80.0); Platelet Count 356 K/mm3 (142-424); Red Blood Count 4.01 M/mm3 (4.20-5.40); Red Cell Distribution Width 16.8 % (11.5-17.5); White Blood Count 6.6 K/mm3 (4.8-10.8)
[2021-03-23 13:32] LABS: Alanine Aminotransferase 19 U/L (12-78); Albumin Level 3.9 g/dl (3.5-5.0); Albumin/Globulin Ratio 1.2 (1.1-1.8); Alkaline Phosphatase 81 U/L (38-126); Anion Gap 8.6 mEq/L (5-15); Aspartate Amino Transferase 31 U/L (14-36); Bilirubin,Total 0.3 mg/dl (0.2-1.3); Blood Urea Nitrogen 7 mg/dl (7-17); Calcium 8.3 mg/dl (8.4-10.2); Carbon Dioxide 32 mmol/L (22.0-30.0); Chloride 101 mmol/L (98-107); Creatinine Clearance Estimated 89 mL/min (50-200); Estimated Glomerular Filt Rate 106 ml/min (>60); GFR (African American) 128 ML/MIN (>60); Globulin 3.2 g/dL (1.3-3.2); Glucose 98 mg/dl (74-100); Potassium 3.6 mmoL/L (3.5-5.1); Sodium 138 mmol/L (136-145); Total Protein,Serum 7.1 g/dl (6.3-8.2)
--- NOTE | 2021-03-23 13:43 | HMH.CNCARD ---
History of Present Illness Consult date: 03/23/21 Requesting physician: Arley Kruse Consult reason: shortness of breath Chief complaint: SOA History of present illness: This is a 51-year-old white female who was directly admitted to the hospital from her primary care provider's office for shortness of breath and edema. The patient states that she has been having bilateral lower extremity edema for the last several months and it continues to worsen. She states that her shortness of breath started yesterday. She states that it started abruptly and has continued to worsen. She states that she is short of breath at rest and it is worse with exertion. She denies any chest pain or pressure. She denies any fever, chills, nausea, vomiting, diarrhea, PND or orthopnea. The patient has no known history of coronary artery disease or [place]. She states that she does have a significant family history of coronary disease and [place] on both sides of her family. [facility] History I have reviewed the patient's past medical history: Yes Medical History: Reports:: Asthma, Deep Vein Thrombosis, Gastroesophageal Reflux Disease(GERD), Gastrointestinal Bleed, Heart Murmur, Hiatal Hernia, Hypertension, Lung Disease, Migraine, MRSA, Seizures Denies:: Cancer, Diabetes Mellitus Type 1, Diabetes Mellitus Type 2, Internal Pacemaker *Have you ever received a pneumonia vaccine?: No *Have you received a flu vaccine this season?: Yes Other Medical History: Reports: Anemia, Arthritis, Fibromyalgia, Other Laterality Cases: Bilateral: Carpal Tunnel Release, Other Other Surgeries: Yes: Appendectomy, Cholecystectomy, , Hysterectomy-Total, Tubal Ligation. No: Pacemaker Amputation: No Fractures: No - *Social History Smoking Status: Never smoker Alcohol Intake: never Alcohol Intake Frequency:: other Substance Use Type: denies use *Occupational Status:: employed Housing: house Household Members: spouse *Travel in the last 8 weeks: None Family Hx:: Diabetes, Heart Attack, Hypertension Meds Home Medications Medication Instructions Recorded Confirmed Type Calcium Carbonate/Vitamin D3 1 each PO DAILY 05/22/18 03/23/21 History [Calcium 500-Vit D3 125 Caplet] duloxetine 60 mg capsule,delayed 60 mg PO DAILY 11/13/18 03/23/21 History release albuterol sulfate 90 mcg/actuation 1 puff INHALATION Q6H PRN #8 g 02/25/19 03/23/21 Rx aerosol inhaler tizanidine 4 mg tablet 4 mg PO QHS #90 tab 07/28/19 03/23/21 History clobetasol 0.05 % topical cream 1 applic TOPICAL DAILY PRN #45 g 01/20/21 03/23/21 Rx ondansetron HCl 4 mg tablet 4 mg PO Q8H PRN #15 tab 02/03/21 03/23/21 Rx Ergocalciferol (Vitamin D2) 50,000 unit PO QWEEK 03/09/21 03/23/21 History [Drisdol] Hydrocodone/Acetaminophen 1 each PO QID 03/09/21 03/23/21 History [Hydrocodone-Acetamin 10-325 mg] Hydroxychloroquine Sulfate 200 mg PO BID 03/09/21 03/23/21 History [Plaquenil] Potassium Chloride [K-Tab ER 10 10 meq PO DAILY 03/09/21 03/23/21 History mEq] Pregabalin 75 mg PO BID 03/09/21 03/23/21 History Rosuvastatin Calcium 20 mg PO DAILY 03/17/21 03/23/21 History Spironolactone [Spironolactone 25 mg PO DAILY 03/17/21 03/23/21 History 25mg Tablet] esomeprazole magnesium 40 mg 40 mg PO DAILY cap 03/17/21 03/23/21 History capsule,delayed release estradiol 1 mg tablet 1 mg PO DAILY tab 03/17/21 03/23/21 History furosemide 40 mg tablet 40 mg PO DAILY tab 03/17/21 03/23/21 History losartan 50 mg tablet See Rx Instructions .ROUTE 03/18/21 03/23/21 Rx .COMPLEX #180 tablet rivaroxaban 20 mg tablet See Rx Instructions .ROUTE 03/18/21 03/23/21 Rx .COMPLEX #90 tab Allergies Allergy/AdvReac Type Severity Reaction Status Date / Time gum mastic Allergy Unknown Verified 03/23/21 10:20 [From MASTISOL ADHESIVE] measles, mumps, and rubella Allergy Unknown Verified 03/23/21 10:20 vaccine [MEASLES, MUMPS, AND RUBELLA VACCINE] methyl salicylate Allergy Unknown Verified 0
[2021-03-23 13:46] LABS: Troponin I < 0.01 ng/ml (0.00-0.034)
--- NOTE | 2021-03-23 14:16 | HMH.PHAVTE ---
[facility] VTE Monitoring - Patient Demographics Admission date: 03/23/21 Report Date: 03/23/21 Time: 14:16 Allergies/Adverse Reactions: Patient Allergies gum mastic [From MASTISOL ADHESIVE] Allergy (Unknown, Verified 03/23/21 10:20) measles, mumps, and rubella vaccine [MEASLES, MUMPS, AND RUBELLA VACCINE] Allergy (Unknown, Verified 03/23/21 10:20) methyl salicylate [From MASTISOL ADHESIVE] Allergy (Unknown, Verified 03/23/21 10:20) Penicillins [PENICILLINS] Allergy (Unknown, Verified 03/23/21 10:20) storax [From MASTISOL ADHESIVE] Allergy (Unknown, Verified 03/23/21 10:20) Sulfa (Sulfonamide Antibiotics) [SULFA (SULFONAMIDE ANTIBIOTICS)] Allergy (Unknown, Verified 03/23/21 10:20) sumatriptan [From IMITREX] Allergy (Unknown, Verified 03/23/21 10:20) adhesive Adverse Reaction (Mild, Verified 03/23/21 10:20) Rash Height: 1.57 m Weight: 108.862 kg Patient Problems: Current Active Problems SOB (shortness of breath) (Acute) Edema (Acute) Atypical angina (Acute) History of TIA (transient ischemic attack) (Acute) History of DVT (deep vein thrombosis) (Chronic) Obesity (BMI 30-39.9) (Chronic) - VTE Risk Labs: VTE Related Lab Results Hgb 10.3 g/dL (12.2-16.2) L 03/23/21 12:10 Hct 32.2 % (37.0-47.0) L 03/23/21 12:10 Plt Count 356 K/mm3 (142-424) 03/23/21 12:10 BUN 7 mg/dl (7-17) 03/23/21 12:10 Creatinine 0.60 mg/dl (0.52-1.04) 03/23/21 12:10 Estimated Creat Clear 89 mL/min (50-200) 03/23/21 12:10 Clinical Trial Participant: No - Prophylaxis VTE Prophylaxis Ordered?: Yes Types of VTE Prophylaxis: TEDS Knee High
--- NOTE | 2021-03-23 14:27 | HMH.PHAINT ---
home medication list verified with Clinic pharmacy
--- NOTE | 2021-03-23 18:26 | PC.NURSE ---
VSS SINCE ARRIVING TO THE FLOOR, SHE HAS C/O PAINX1 THIS SHIFT, ORDER FOR TYLENOL PRN OBTAINED, TOLERATING RA WELL, NO NEEDS AT THIS TIME.
[2021-03-23 20:18] LABS: Troponin I 0.06 ng/ml (0.00-0.034)
--- NOTE | 2021-03-23 22:00 | PC.NURSE ---
pt arrived to floor via wheelchair at this time, pt is alert and oriented, no complaints of pain or discomfort, no c/o respiratory distress. no needs at this time
--- NOTE | 2021-03-24 04:40 | PC.NURSE ---
pt has rested off and on throughout shift, no complaints of dyspnea or chest pain, lungs remain clear to auscultate, heart rate regular, vss. no needs at this time
[2021-03-24 04:56] VITALS: BP 130/65; PULSE 60; RESP 17; TEMP 36.6; O2SAT 97
[2021-03-24 06:30] VITALS: BP 131/65; PULSE 62; RESP 20; TEMP 36.7; O2SAT 100
[2021-03-24 08:00] VITALS: BP 122/59; PULSE 61; RESP 20; TEMP 36.9; O2SAT 100
--- NOTE | 2021-03-24 09:30 | PC.NURSE ---
pt is up to the shower.
--- NOTE | 2021-03-24 10:14 | HMH.ACPN2 ---
Internal Medicine - PN: Subj *Date: 03/24/21 *Time: 09:00 Interval history: pt laying in bed states she feels about the same. pt states she had lasix but did not get off much fluid. Exam Vital signs and Labs for Last 24 Hours: Temp Pulse Resp BP Pulse Ox 98.4 F 61 20 122/59 L 100 03/24/21 08:00 03/24/21 08:00 03/24/21 08:00 03/24/21 08:00 03/24/21 08:00 Laboratory Results - last 24 hr 03/23/21 12:10: WBC 6.6, RBC 4.01 L, Hgb 10.3 L, Hct 32.2 L, MCV 80.4 L, MCH 25.8 L, MCHC 32.1, RDW 16.8, Plt Count 356, MPV 8.3, Neut % (Auto) 61.4, Lymph % (Auto) 31.6, [place] % (Auto) 4.2, Eos % (Auto) 1.7, Baso % (Auto) 1.2, Neut # (Auto) 4.0, Lymph # (Auto) 2.1, [place] # (Auto) 0.3, Eos # (Auto) 0.1, Baso # (Auto) 0.1 03/23/21 12:10: Sodium 138, Potassium 3.6, Chloride 101, Carbon Dioxide 32 H, Anion Gap 8.6, BUN 7, Creatinine 0.60, Estimated Creat Clear 89, Estimated GFR 106, Est GFR ( Amer) 128, Glucose 98, Calcium 8.3 L, Total Bilirubin 0.3, AST 31, ALT 19, Alkaline Phosphatase 81, Total Protein 7.1, Albumin 3.9, Globulin 3.2, Albumin/Globulin Ratio 1.2 03/23/21 12:10: Troponin I < 0.01 03/23/21 19:43: Troponin I 0.06 H I & O for Last 24 hours: Intake & Output 03/21/21 03/22/21 03/23/21 03/24/21 11:59 11:59 11:59 11:59 Intake Total 480 / 480 Balance 480 / 480 Weight 240 lb Microbiology Reports for the Last 24 Hours: Microbiology 03/23/21 12:10 Nasopharyngeal Coronavirus COVID-19 PCR - Final - Constitutional no acute distress, obese - *Routine HEENT Exam Head: Present: normocephalic Eye: Present: PERRL ENT: Present: mucous membranes moist - *Routine Neck Exam Present: supple. Absent: lymphadenopathy - *Routine Respiratory Exam Present: CTA bilaterally - *Routine Cardiovascular Exam Present: RRR - *Routine Abdominal Exam Present: soft, normoactive bowel sounds. Absent: tenderness - *Routine Extremities Exam Present: edema. Absent: cyanosis, clubbing Comments: 3+ - *Routine Skin Exam Present: warm. Absent: rash - *Routine Neurological Exam Present: alert, oriented X3 - Routine Psychiatric Exam Present: normal affect Assessment and Plan (1) Elevated left ventricular end-diastolic pressure (LVEDP) Status: Acute Category: Medical Code(s): R94.30 - Abnormal result of cardiovascular function study, unspecified (2) Hypertensive heart disease Status: Acute Qualifiers: Heart failure presence: without heart failure Qualified Code(s): I11.9 - Hypertensive heart disease without heart failure Category: Medical Code(s): I11.9 - Hypertensive heart disease without heart failure (3) Atypical angina Status: Acute Category: Medical Code(s): I20.8 - Other forms of angina pectoris (4) Edema Status: Acute Qualifiers: Edema type: localized Qualified Code(s): R60.0 - Localized edema Category: Medical Code(s): R60.9 - Edema, unspecified (5) SOB (shortness of breath) Status: Acute Category: Medical Code(s): R06.02 - Shortness of breath (6) Obesity (BMI 30-39.9) Status: Chronic Category: Medical Code(s): E66.9 - Obesity, unspecified (7) Lupus Status: Chronic Category: Medical Code(s): M32.9 - Systemic lupus erythematosus, unspecified - Assessment and plan all Dx Assessment and Plan for all problems:: rounded with dr noonan all orders per dr shaista proctor follow with cardiology poss dc in am or later today
--- NOTE | 2021-03-24 11:22 | HMH.PNCARD ---
Subjective Date: 03/24/21 Time: 11:22 Principal diagnosis: SOA Interval history: This is a 51-year-old white female who was admitted to the hospital with shortness of breath and edema. The patient underwent left cardiac catheterization and this showed: The left main artery Normal The left anterior descending artery Normal The circumflex artery Normal The right coronary artery Dominant normal The MONGE ventriculogram reveals Hyperdynamic 75% The left ventricular end-diastolic pressure 30 mmHg IMPRESSION Normal coronary arteries Hyperdynamic ventricle consistent with diastolic dysfunction and/or hypertensive heart disease Elevated LVEDP consistent with diastolic dysfunction and/or hypertensive heart disease PLAN 1. Treatment of diastolic dysfunction/hypertensive heart disease Patient has normal coronary arteries and a severely elevated LVEDP. The patient needs diuretics to help lower her LVEDP. She denies any chest pain or pressure. She states that she is still having shortness of breath with exertion. The patient is complaining of lower extremity edema but she has no edema on exam. She denies any fever, chills, nausea, vomiting, diarrhea, PND or orthopnea. Exam Vital signs and Labs for Last 24 Hours: Temp Pulse Resp BP Pulse Ox 98.4 F 61 20 122/59 L 100 03/24/21 08:00 03/24/21 08:00 03/24/21 08:00 03/24/21 08:00 03/24/21 08:00 Laboratory Results - last 24 hr 03/23/21 12:10: WBC 6.6, RBC 4.01 L, Hgb 10.3 L, Hct 32.2 L, MCV 80.4 L, MCH 25.8 L, MCHC 32.1, RDW 16.8, Plt Count 356, MPV 8.3, Neut % (Auto) 61.4, Lymph % (Auto) 31.6, [place] % (Auto) 4.2, Eos % (Auto) 1.7, Baso % (Auto) 1.2, Neut # (Auto) 4.0, Lymph # (Auto) 2.1, [place] # (Auto) 0.3, Eos # (Auto) 0.1, Baso # (Auto) 0.1 03/23/21 12:10: Sodium 138, Potassium 3.6, Chloride 101, Carbon Dioxide 32 H, Anion Gap 8.6, BUN 7, Creatinine 0.60, Estimated Creat Clear 89, Estimated GFR 106, Est GFR ( Amer) 128, Glucose 98, Calcium 8.3 L, Total Bilirubin 0.3, AST 31, ALT 19, Alkaline Phosphatase 81, Total Protein 7.1, Albumin 3.9, Globulin 3.2, Albumin/Globulin Ratio 1.2 03/23/21 12:10: Troponin I < 0.01 03/23/21 19:43: Troponin I 0.06 H I & O for Last 24 hours: Intake & Output 03/21/21 03/22/21 03/23/21 03/24/21 23:59 23:59 23:59 23:59 Intake Total 360 / 480 120 / 120 Balance 360 / 480 120 / 120 Weight 240 lb Microbiology Reports for the Last 24 Hours: Microbiology 03/23/21 12:10 Nasopharyngeal Coronavirus COVID-19 PCR - Final - Constitutional no acute distress, morbidly obese - *Routine HEENT Exam Head: Present: normocephalic, atraumatic Eye: Present: EOMI, PERRL ENT: Present: mucous membranes moist - *Routine Neck Exam Present: supple, full ROM, normal carotid upstroke. Absent: JVD, carotid bruit, lymphadenopathy - *Routine Respiratory Exam Present: CTA bilaterally - *Routine Cardiovascular Exam Present: RRR, Normal S1, Normal S2. Absent: murmur - *Routine Abdominal Exam Present: soft, normoactive bowel sounds. Absent: tenderness, distended - *Routine Extremities Exam Present: full ROM, pulses intact, normal capillary refill. Absent: cyanosis, clubbing, edema - *Routine Skin Exam Present: intact, warm. Absent: erythema, rash - *Routine Neurological Exam Present: alert, oriented X3, CN II-XII intact. Absent: sensory deficit, motor deficit Progress Note: A&P (1) Elevated left ventricular end-diastolic pressure (LVEDP) Status: Acute (2) Hypertensive heart disease Status: Acute (3) SOB (shortness of breath) Status: Acute (4) Obesity (BMI 30-39.9) Status: Chronic (5) Lupus Status: Chronic (6) Normal coronary arteries Status: Acute (7) Diastolic dysfunction Status: Acute Assessment and Plan for All Diagnoses:: Plan: 1. Pt has normal cors. 2. BP is well controlled. 3. LDL goal is < 100. 4. LVEDP is severely elevated. needs diuresis. increase lasix to 80 mg daily and i
[2021-03-24 11:55] LABS: Chloride 97 mmol/L (98-107); Potassium 3.5 mmoL/L (3.5-5.1); Sodium 138 mmol/L (136-145)
[2021-03-24 11:58] LABS: Blood Urea Nitrogen 8 mg/dl (7-17); Creatinine Clearance Estimated 76 mL/min (50-200); Estimated Glomerular Filt Rate 89 ml/min (>60); GFR (African American) 107 ML/MIN (>60)
[2021-03-24 11:59] LABS: Anion Gap 12.5 mEq/L (5-15); Calcium 8.7 mg/dl (8.4-10.2); Carbon Dioxide 32 mmol/L (22.0-30.0); Glucose 100 mg/dl (74-100)
[2021-03-24 12:22] LABS: Microscopic, Urine URINE MICROSCOPIC (MICROSCOPIC)
[2021-03-24 12:23] LABS: Appearance,Urine CLEAR (Clear); Bilirubin,Urine Negative (Negative); Blood, Urine Negative (Negative); Color,Urine YELLOW (Yellow); Glucose,Urine (UA) Negative (Negative); Ketones,Urine TRACE (Negative); Leukocyte Esterase,Urine Negative (Negative); Nitrate,Urine Negative (Negative); Protein,Urine Negative (Negative); Specific Gravity, Urine >= 1.030 (1.005-1.030)
[2021-03-24 15:53] VITALS: BMI 35.7
--- NOTE | 2021-03-24 16:29 | PC.NURSE ---
REASSESSMENT COMPLETED AT THIS TIME. NO CHANGED NOTED. LUNGS REMAIN CTA AND BOWEL SOUNDS ACTIVE X4. PT REPORTS NO PAIN. PT REPORTS THAT HER SOB HAS IMPROVED SINCE LASIX. NO EDEMA NOTED. NO NUMBNESS/TINGLING REPORTED. CAP REFILL <3 SECONDS AND PULSES 2+. NO NEEDS. AWAITING DR. BENOIT TO ROUND AND D/C
--- NOTE | 2021-03-24 19:53 | HMH.DCSUM ---
General - General Admission date:: 03/23/21 Discharge date: 03/24/21 HPI HPI: 51-year-old female who was directly admitted to the hospital from her primary care provider's office for shortness of breath,o2 sat 93% at rest and edema 3+. The patient states that she has been having bilateral lower extremity edema for the last several months and it continues to worsen. Patient states she has gained 9 lbs since sat. She states that her shortness of breath started yesterday, states that it started abruptly and has continued to worsen as the day progressed. She states that she is short of breath at rest and it is worse with exertion. She denies any chest pain or pressure. She states that she does have a significant family history of coronary disease and [place] on both sides of her family. Dr. Vega contacted and Patient admitted to hospital for fluid overload and cardiology consult. Hospital Course Hospital Course: The patient was admitted for increasing edema, volume overload, tightness of breath. He was seen by the cardiology service. She was taken to the [facility] where studies demonstrated normal coronary arteries and severely elevated LVEDP. She was vigorously diuresed with IV Lasix. Good output, good clinical response. She had a resolution of her dyspnea, improvement in her dependent edema. Up titration of her diuretics and sleep study was recommended. Rhogam Administration: Not Indicated Objective Vital signs: Temp Pulse Resp BP Pulse Ox 98.4 F 61 20 122/59 L 100 03/24/21 08:00 03/24/21 08:00 03/24/21 08:00 03/24/21 08:00 03/24/21 08:00 no acute distress, obese - *Routine HEENT Exam Head: Present: normocephalic Eye: Present: EOMI, PERRL ENT: Present: mucous membranes moist - *Routine Neck Exam Present: supple - *Routine Respiratory Exam Present: CTA bilaterally - *Routine Cardiovascular Exam Present: RRR - *Routine Abdominal Exam Present: soft, normoactive bowel sounds. Absent: tenderness - *Routine Extremities Exam Present: edema. Absent: cyanosis, clubbing - *Routine Skin Exam Present: intact, warm. Absent: mottling, jaundice, rash Results Labs on day of discharge: Labs from last 24 hours 03/24/21 03/24/21 03/23/21 11:29 10:00 19:43 Sodium 138 Potassium 3.5 Chloride 97 L Carbon Dioxide 32 H Anion Gap 12.5 BUN 8 Creatinine 0.70 Estimated Creat Clear 76 Estimated GFR 89 Est GFR ( Amer) 107 Glucose 100 Calcium 8.7 Troponin I 0.06 H Urine Color Yellow Urine Appearance Clear Urine pH 6.0 Ur Specific [place] >= 1.030 Urine Protein Negative Urine Glucose (UA) Negative Urine Ketones Trace Urine Blood Negative Urine Nitrate Negative Urine Bilirubin Negative Urine Urobilinogen 1.0 Ur Leukocyte Esterase Negative Urine RBC None Urine WBC 3-5 Ur Squamous Epith Cells 3-5 Urine Bacteria None DS: Diagnosis - Discharge Diagnosis (1) Elevated left ventricular end-diastolic pressure (LVEDP) Status: Acute (2) Hypertensive heart disease Status: Acute (3) SOB (shortness of breath) Status: Acute (4) Obesity (BMI 30-39.9) Status: Chronic (5) Lupus Status: Chronic (6) Normal coronary arteries Status: Acute (7) Diastolic dysfunction Status: Acute Discharge Plan - Patient Discharge Instructions ACTIVITY: Ambulate as tolerated DIET: low salt diet Additional Instructions: INCREASE LASIX TO 80MG DAILY AND ALDACTONE TO 50MG DAILY Patient Instructions: Cardiac Catheterization, DI for Heart Failure, DI for Shortness of Breath - Follow up Plan Follow up with: Ted Law MD [Staff Physician] - 03/31/21 1:30 pm Valentin Daniel MD [Staff Physician] - 03/28/21 Disposition: Home, Self-Care Condition at discharge:: Improved Home Medications: Home Medications Medication Instructions Recorded Confirmed Type Calcium Carbo
== END 2021-03-24 20:15 | disposition home or self-care (01) ==
LOC: 2ND 16:06 → OB 21:47
PROVIDERS: Internal Medicine; Nurse Practitioner Family; Admitting Provider Emergency Medicine; PCP Emergency Medicine; Visit Provider Emergency Medicine
DX: I25.118 Atherosclerotic heart disease of native coronary artery with other forms of angina pectoris (principal); M32.9 Systemic lupus erythematosus, unspecified; I11.9 Hypertensive heart disease without heart failure; Z88.8 Allergy status to other drugs, medicaments and biological substances; Z79.899 Other long term (current) drug therapy
CPT/HCPCS: 36415; 71046; 80048; 80053; 81001; 84484; 85025; 93005; 93458; 99152; C1725; C1769; G0378; J1644; Q9967; U0003

== ENCOUNTER 2021-03-29 11:53 | Outpatient (CLI) | payer BC, OTHER, SELFPAY ==
[2021-03-29 12:05] VITALS: BP 131/88; PULSE 72; RESP 18; TEMP 36.6; O2SAT 98
[2021-03-29 13:05] VITALS: BP 154/79; PULSE 77; RESP 18; O2SAT 98
== END 2021-03-29 13:05 | disposition home or self-care (01) ==
LOC: INF 11:53
PROVIDERS: Visit Provider Internal Medicine Medical Oncology
DX: D50.9 Iron deficiency anemia, unspecified (principal)
CPT/HCPCS: 96365; J1756

== ENCOUNTER → 2021-03-29 13:36 | Outpatient (CLI) | payer BC, OTHER, SELFPAY ==
[2021-03-29 13:51] LABS: Chloride 99 mmol/L (98-107); Sodium 138 mmol/L (136-145)
[2021-03-29 13:53] LABS: Blood Urea Nitrogen 12 mg/dl (7-17); Estimated Glomerular Filt Rate 106 ml/min (>60); GFR (African American) 128 ML/MIN (>60)
[2021-03-29 13:54] LABS: Alanine Aminotransferase 22 U/L (12-78); Albumin Level 4.4 g/dl (3.5-5.0); Albumin/Globulin Ratio 1.3 (1.1-1.8); Alkaline Phosphatase 78 U/L (38-126); Aspartate Amino Transferase 28 U/L (14-36); Bilirubin,Total 0.4 mg/dl (0.2-1.3); Calcium 9.4 mg/dl (8.4-10.2); Carbon Dioxide 28 mmol/L (22.0-30.0); Globulin 3.3 g/dL (1.3-3.2); Glucose 106 mg/dl (74-100); Total Protein,Serum 7.7 g/dl (6.3-8.2)
== END ==
PROVIDERS: Visit Provider Family Medicine
DX: R60.9 Edema, unspecified (principal)
CPT/HCPCS: 80053

== ENCOUNTER → 2021-04-26 13:26 | Outpatient (CLI) | payer BC, SELFPAY ==
[2021-04-26 14:02] LABS: Anion Gap 16.5 mEq/L (5-15); Blood Urea Nitrogen 14 mg/dl (7-17); Calcium 9.4 mg/dl (8.4-10.2); Carbon Dioxide 28 mmol/L (22.0-30.0); Chloride 98 mmol/L (98-107); Estimated Glomerular Filt Rate 106 ml/min (>60); GFR (African American) 128 ML/MIN (>60); Glucose 101 mg/dl (74-100); Potassium 4.5 mmoL/L (3.5-5.1); Sodium 138 mmol/L (136-145)
== END ==
PROVIDERS: Visit Provider Family Medicine
DX: I50.9 Heart failure, unspecified (principal)
CPT/HCPCS: 80048

== ENCOUNTER → 2021-05-03 20:06 | Outpatient (CLI) | payer BC, SELFPAY | PROVIDERS: PCP Family Medicine; Visit Provider Family Medicine | DX: G47.30 Sleep apnea, unspecified (principal); R06.83 Snoring | CPT/HCPCS: 95810 ==

== ENCOUNTER → 2021-05-11 15:26 | Outpatient (CLI) | payer BC, SELFPAY ==
[2021-05-11 16:26] LABS: Basophils # 0.1 K/mm3 (0-0.2); Eosinophils # 0.3 K/mm3 (0.0-0.4); Eosinophils % 2.5 % (0.1-12.0); Hematocrit 39.4 % (37.0-47.0); Hemoglobin 12.7 g/dL (12.2-16.2); Lymphocytes # 3.3 K/mm3 (0.7-4.5); Mean Corpuscular HGB Conc 32.2 g/dL (31.8-35.4); Mean Corpuscular Hemoglobin 26.7 pg (27.0-31.2); Mean Platelet Volume 8.3 fl (7.4-10.4); Monocytes # 0.5 K/mm3 (0.1-1.0); Monocytes % 3.3 % (1.7-9.3); Neutrophils # 9.5 K/mm3 (1.8-7.8); Neutrophils % 69.2 % (37.0-80.0); Platelet Count 424 K/mm3 (142-424); Red Blood Count 4.75 M/mm3 (4.20-5.40); Red Cell Distribution Width 16.6 % (11.5-17.5); White Blood Count 13.7 K/mm3 (4.8-10.8)
[2021-05-11 16:40] LABS: Barbiturates Screen,Urine Negative ng/ml (<200); Benzodiazepines Screen,Urine Negative ng/ml (<200)
[2021-05-11 16:41] LABS: Amphetamine/Metha Screen,Urine Negative ng/ml (<1000)
[2021-05-11 16:42] LABS: Cannabinoid Screen,Urine Negative ng/ml (<50)
[2021-05-11 16:43] LABS: Cocaine Screen,Urine Negative ng/ml (<300); Methadone Screen,Urine Negative ng/ml (<300)
[2021-05-11 16:44] LABS: Opiate Screen,Urine Positive ng/ml (<300); Phencyclidine Screen,Urine Negative ng/ml (<25)
[2021-05-11 17:09] LABS: Alanine Aminotransferase 23 U/L (12-78); Albumin Level 4.5 g/dl (3.5-5.0); Albumin/Globulin Ratio 1.3 (1.1-1.8); Alkaline Phosphatase 79 U/L (38-126); Anion Gap 15.8 mEq/L (5-15); Aspartate Amino Transferase 27 U/L (14-36); Bilirubin,Total 0.4 mg/dl (0.2-1.3); Blood Urea Nitrogen 16 mg/dl (7-17); Calcium 9.1 mg/dl (8.4-10.2); Carbon Dioxide 29 mmol/L (22.0-30.0); Chloride 96 mmol/L (98-107); Estimated Glomerular Filt Rate 89 ml/min (>60); GFR (African American) 107 ML/MIN (>60); Globulin 3.4 g/dL (1.3-3.2); Glucose 99 mg/dl (74-100); Potassium 3.8 mmoL/L (3.5-5.1); Sodium 137 mmol/L (136-145); Total Protein,Serum 7.9 g/dl (6.3-8.2)
[2021-05-11 17:18] LABS: NT Pro Brain Natriuretic Pep. 103 pg/mL (0-125)
[2021-05-11 17:32] LABS: Iron 69 ug/dL (37-170)
[2021-05-11 17:41] LABS: Total Iron Binding Capacity 439 ug/dL (265-497)
[2021-05-11 18:08] LABS: Ferritin 48.4 ng/ml (6.24-137)
[2021-05-19 20:18] LABS: Codeine Negative (Cutoff=100); Hydrocodone Positive (.); Hydromorphone Positive (.); Morphine Negative (Cutoff=100); Opiates Positive (.)
== END ==
PROVIDERS: Internal Medicine Cardiovascular Disease; Visit Provider Internal Medicine Medical Oncology
DX: R42 Dizziness and giddiness (principal); M32.9 Systemic lupus erythematosus, unspecified; M79.605 Pain in left leg; D50.9 Iron deficiency anemia, unspecified
CPT/HCPCS: 36415; 80053; 80305; 80361; 80365; 82728; 83540; 83550; 83880; 85025; G0480

== ENCOUNTER → 2021-05-23 10:56 | Outpatient (POV) | payer BC, SELFPAY ==
--- NOTE | 2021-05-23 11:27 | HMH.PAINSOAP ---
[facility] Pain Management SOAP Note Subjective:: Patient is a 51-year-old white female who presents today for follow-up and for medication refills. She has been treated for degenerative disc disease lumbar spine with lumbar radiculopathy symptoms and postlaminectomy syndrome lumbar spine. Patient is managed in the clinic with [place] 10 mg 1 tablet p.o. 4 times daily and Lyrica 75 mg 1 tablet p.o. twice daily. She denies any side effects to the medication. She does say that she requires a preauthorization of the medication is and has been paying [id number] for the medicine. We will plan to follow-up with her in 3 weeks rather than 4 weeks at her next visit so that we can get a preauthorization of the medication before she runs out of her medicine. Her Bereket #[id number] has been reviewed and is appropriate. Morphine equivalent is 40. She rates her pain a 6 out of 10. She says that she gets about 60% relief with her medication regimen. 6 out of 10 and is her baseline. review of Systems General: No recent weight changes, no fever, no sleep disturbances Respiratory: No cough, no shortness of air, no recurring pulmonary infections Cardiovascular/peripheral vascular: No chest pain, no palpitations, no edema, no shortness of breath Gastrointestinal: No new onset incontinence, normal bowel movements reported Genitourinary: No new onset incontinence Musculoskeletal: chronic low back pain Psychiatric: [Normal mood/affect] Neurological: [Denies weakness in extremities], [denies balance issues] Objective:: Physical exam General: Alert and oriented x3, no acute distress, pleasant and cooperative, [on room air] Lungs: Respirations even and unlabored, symmetrical chest expansion Eyes: PERRL Musculoskeletal: Flexion and extension of lumbar [spine] somewhat guarded secondary to pain, strength in upper and lower extremities [5/5], [antalgic gait noted] Neurological: Speech clear, [reconstructive dentist equal], no gross sensory deficit Assessment:: Degenerative disc disease lumbar spine with lumbar radiculopathy symptoms, postlaminectomy syndrome lumbar spine Plan:: We will refill the patient's [place] 10 mg 1 tablet p.o. 4 times daily and Lyrica 75 mg 1 tablet p.o. twice daily. We will see her back in a month in 3 weeks so that she can undergo preauthorization medication prior to refill of medication. Patient has been instructed to contact the clinic with any concerns before the next appointment. Dr. Venegas has reviewed this note and agrees with this plan of care. This note was dictated using voice recognition software and make contain errors or omissions. Risks and benefits of the medication have been explained in detail to the patient. The patient has been advised to consult with his/her primary care provider and pharmacist regarding drug-drug interaction of medications currently prescribed. Patient has been prescribed a controlled substance after being counseled on the medication, medication safety, and possible side effects. BEREKET report has been obtained and reviewed prior to prescription and found to be appropriate. Opioid contract was reviewed and signed by the patient, and that they have agreed to all of the terms set forth by our compliance program. [facility] History I have reviewed the patient's past medical history: Yes Medical History: Reports:: Asthma, Deep Vein Thrombosis, Gastroesophageal Reflux Disease(GERD), Gastrointestinal Bleed, Heart Murmur, Hiatal Hernia, Hypertension, Internal Pacemaker, Lung Disease, Migraine, MRSA, Seizures Denies:: Cancer, Diabetes Mellitus Type 1, Diabetes Mellitus Type 2 *Have you ever received a pneumonia vaccine?: No *Have you received a flu vaccine this season?: No Other Medical History: Reports: Anemia, Arthritis, Fibromyalgia, Other Laterality Cases: Bilateral: Carpal Tunnel Release, Other Other Surgeries: Yes: Appendectomy, Cholecystectomy, , Hysterectomy-Total, Pacemaker, Tubal Ligation Amputation: No F
== END ==
PROVIDERS: Visit Provider Clinical Nurse Specialist Family Health
DX: M51.16 Intervertebral disc disorders with radiculopathy, lumbar region (principal); M96.1 Postlaminectomy syndrome, not elsewhere classified
CPT/HCPCS: 99212; G0463

== ENCOUNTER → 2021-05-25 14:47 | Outpatient (CLI) | payer BC, SELFPAY ==
--- NOTE | 2021-05-25 15:24 | XR_ITS ---
PROCEDURE: XR CHEST PORTABLE CLINICAL HISTORY: cough Shortness of air COMPARISON: CT AGCHEST CT angio chest from 05/22/2018 CR CXR2V XR chest 2V from 11/07/2018 CR XR CHEST 2V from 09/18/2019 CR XR CHEST 2V from 03/23/2021 FINDINGS: The cardiomediastinal silhouette and pulmonary vascularity are within normal limits. The lungs are clear without infiltrates, suspicious nodules, or pleural effusions. No acute bony abnormalities. IMPRESSION: No acute findings. Dictated by: Luis Antonio Gardner MD 05/25/2021 15:48 Luis Antonio Gardner MD in [place] 05/25/2021 15:48
== END ==
PROVIDERS: PCP Nurse Practitioner Family; Visit Provider Family Medicine
DX: Z20.822 Contact with and (suspected) exposure to COVID-19 (principal)
CPT/HCPCS: 71045; U0003

== ENCOUNTER → 2021-05-30 14:26 | Outpatient (CLI) | payer BC, SELFPAY ==
[2021-05-30 15:46] LABS: Chloride 98 mmol/L (98-107); Sodium 141 mmol/L (136-145)
[2021-05-30 15:47] LABS: Potassium 3.4 mmoL/L (3.5-5.1)
[2021-05-30 15:49] LABS: Alanine Aminotransferase 20 U/L (12-78); Albumin Level 4.5 g/dl (3.5-5.0); Albumin/Globulin Ratio 1.3 (1.1-1.8); Alkaline Phosphatase 84 U/L (38-126); Anion Gap 14.4 mEq/L (5-15); Aspartate Amino Transferase 26 U/L (14-36); Blood Urea Nitrogen 10 mg/dl (7-17); Carbon Dioxide 32 mmol/L (22.0-30.0); Estimated Glomerular Filt Rate 76 ml/min (>60); GFR (African American) 92 ML/MIN (>60); Globulin 3.4 g/dL (1.3-3.2); Total Protein,Serum 7.9 g/dl (6.3-8.2)
[2021-05-30 15:50] LABS: Calcium 9.1 mg/dl (8.4-10.2); Glucose 100 mg/dl (74-100)
[2021-05-30 15:56] LABS: Bilirubin,Total 0.1 mg/dl (0.2-1.3)
== END ==
PROVIDERS: Visit Provider Family Medicine
DX: R42 Dizziness and giddiness (principal)
CPT/HCPCS: 80053

== ENCOUNTER → 2021-06-13 09:00 | Outpatient (POV) | payer BC, SELFPAY ==
[2021-06-13 09:20] VITALS: BP 131/80; PULSE 76; RESP 18; O2SAT 99; BMI 40.7
--- NOTE | 2021-06-13 12:28 | HMH.PAINSOAP ---
[facility] Pain Management SOAP Note Subjective:: Patient is a pleasant 51-year-old white female who presents today for follow-up. She is managed in our clinic with oral medications. Patient is being treated for degenerative disc disease lumbar spine with lumbar radicular symptoms along with postlaminectomy syndrome lumbar spine. She does rate her pain a 4 out of 10. She has managed in the clinic with [place] 10 mg 1 tablet p.o. 4 times daily and Lyrica 75 mg 1 tablet p.o. twice daily. She denies any side effects. Patient says that her pain does go as high as 8 out of 10 and at its lowest is a 2 out of 10. She says that she did undergo physical therapy 5 to 6 years ago which progressively made her pain worse. Patient says that she would like to undergo injective therapy, however, due to her history of strokes and Xarelto use, she is unable to come off her anticoagulation therapy for injective therapy. Review of Systems General: No recent weight changes, no fever, no sleep disturbances Respiratory: No cough, no shortness of air, no recurring pulmonary infections Cardiovascular/peripheral vascular: No chest pain, no palpitations, no edema, no shortness of breath Gastrointestinal: No new onset incontinence, normal bowel movements reported Genitourinary: No new onset incontinence Musculoskeletal: Chronic low back pain Psychiatric: [Normal mood/affect] Neurological: [Denies weakness in extremities], [denies balance issues] Objective:: Physical exam General: Alert and oriented x3, no acute distress, pleasant and cooperative, [on room air] Lungs: Respirations even and unlabored, symmetrical chest expansion Eyes: PERRL Musculoskeletal: Flexion and extension of lumbar [spine] somewhat guarded secondary to pain, strength in upper and lower extremities [5/5], [antalgic gait noted] Neurological: Speech clear, [bag shaker equal], no gross sensory deficit Assessment:: Degenerative disc disease lumbar spine with lumbar radiculopathy symptoms Plan:: We will refill the patient's Lyrica 75 mg 1 tablet p.o. twice daily. We will also refill the patient's [place] 10 mg 1 tablet p.o. 4 times daily. We will see the patient back in a month for reevaluation of symptoms. Patient's Bereket #[id number] has been reviewed and is appropriate. Patient's morphine equivalent is 40. Her drug screen is also appropriate. Risks and benefits of the medication have been explained in detail to the patient. The patient has been advised to consult with his/her primary care provider and pharmacist regarding drug-drug interaction of medications currently prescribed. Patient has been prescribed a controlled substance after being counseled on the medication, medication safety, and possible side effects. BEREKET report has been obtained and reviewed prior to prescription and found to be appropriate. Opioid contract was reviewed and signed by the patient, and that they have agreed to all of the terms set forth by our compliance program. Patient has been instructed to contact the clinic with any concerns before the next appointment. Dr. Venegas has reviewed this note and agrees with this plan of care. This note was dictated using voice recognition software and make contain errors or omissions. [facility] History I have reviewed the patient's past medical history: Yes Medical History: Reports:: Asthma, Deep Vein Thrombosis, Gastroesophageal Reflux Disease(GERD), Gastrointestinal Bleed, Heart Murmur, Hiatal Hernia, Hypertension, Internal Pacemaker, Lung Disease, Migraine, MRSA, Seizures Denies:: Cancer, Diabetes Mellitus Type 1, Diabetes Mellitus Type 2 *Have you ever received a pneumonia vaccine?: Yes *Have you received a flu vaccine this season?: No Other Medical History: Reports: Anemia, Arthritis, Fibromyalgia, Other Laterality Cases: Bilateral: Carpal Tunnel Release, Other Other Surgeries: Yes: Appendectomy, Cholecystectomy, , Hysterectomy-Total, Pacemaker, Tubal Ligation Amputatio
== END ==
PROVIDERS: Visit Provider Clinical Nurse Specialist Family Health
DX: M51.16 Intervertebral disc disorders with radiculopathy, lumbar region (principal)
CPT/HCPCS: 99212; G0463

== ENCOUNTER → 2021-06-24 13:58 | Outpatient (CLI) | payer BC, SELFPAY ==
--- NOTE | 2021-06-24 13:58 | CT_ITS ---
PROCEDURE: CT HEAD/BRAIN WO CON CLINICAL INDICATION: frequent falls The COMPARISON: CT CT ANGIO HEAD from 08/08/2019 TECHNIQUE: Axial images obtained. All CT scans at the facility use one or more dose reduction, viz: automated exposure control, ma/kV adjustment per patient size (including targeted exams where dose is matched to indication, i.e. head), or iterative reconstruction technique. FINDINGS: No midline shift, mass effect, intracranial hemorrhage, hydrocephalus, or extra-axial fluid collection is evident. The calvarium has an unremarkable appearance. No mastoid effusion. No sinus air-fluid level. IMPRESSION: No acute intracranial finding Dictated by: Luis Antonio Gardner MD 06/24/2021 16:58 Luis Antonio Gardner MD in [place] 06/24/2021 16:58
== END ==
PROVIDERS: PCP Family Medicine; Visit Provider Family Medicine
DX: R42 Dizziness and giddiness (principal); R29.6 Repeated falls
CPT/HCPCS: 70450

== ENCOUNTER → 2021-07-05 15:16 | Outpatient (CLI) | payer BC, SELFPAY | PROVIDERS: PCP Family Medicine; Visit Provider Nurse Practitioner | DX: Z20.822 Contact with and (suspected) exposure to COVID-19 (principal) | CPT/HCPCS: C9803; U0003; U0005 ==

== ENCOUNTER → 2021-07-14 08:23 | Outpatient (POV) | payer BC, SELFPAY ==
--- NOTE | 2021-07-14 08:44 | HMH.PAINSOAP ---
[facility] Pain Management SOAP Note Subjective:: Patient is a 51-year-old white female who presents today for medication refills. The patient says that she is having worsening neuropathic pain. She does not want to see a neurologist due to being told in the past that there was nothing that they can do for her neuropathy. She is managed in our clinic with Welch 10 mg 1 tablet p.o. 4 times daily and Lyrica 75 mg 1 tablet p.o. twice daily. Patient does admit that she only takes Lyrica once a day. She and I did discuss increasing this dose to see if it helps with her neuropathic pain. She would like to try this. She is having numbness and tingling in her lower extremities. She does have leg achiness as well. She denies any side effects to the medication. She has had physical therapy and has tried injective therapy with no significant relief. She rates her pain a 6 out of 10. The patient's Loi [id number] has been reviewed and is appropriate. Morphine equivalent is 40. Drug screens have been appropriate. Review of Systems General: No recent weight changes, no fever, no sleep disturbances Respiratory: No cough, no shortness of air, no recurring pulmonary infections Cardiovascular/peripheral vascular: No chest pain, no palpitations, no edema, no shortness of breath Gastrointestinal: No new onset incontinence, normal bowel movements reported Genitourinary: No new onset incontinence Musculoskeletal: Leg pain bilaterally with achiness, numbness and tingling Psychiatric: [Normal mood/affect] Neurological: Weakness in lower extremities Objective:: Physical exam General: Alert and oriented x3, no acute distress, pleasant and cooperative, [on room air] Lungs: Respirations even and unlabored, symmetrical chest expansion Eyes: PERRL Musculoskeletal: Flexion and extension of bilateral lower extremities somewhat guarded secondary to pain, strength in upper and lower extremities [5/5], [antalgic gait noted] Neurological: Speech clear, [advanced practice professional equal], no gross sensory deficit Assessment:: Peripheral neuropathy, degenerative disc disease lumbar spine with lumbar radiculopathy symptoms Plan:: We will refill the patient's Welch 10 mg 1 tablet p.o. 4 times daily. We will change the patient's Lyrica to 100 mg 1 tablet p.o. at bedtime. We will see the patient back in a month for reevaluation of symptoms. She has been instructed to contact clinic if she has any concerns before next appointment. Risks and benefits of the medication have been explained in detail to the patient. If side effects do present with the medication, she has been advised to stop the medication immediately and call the clinic. The patient has been advised to consult with his/her primary care provider and pharmacist regarding drug-drug interaction of medications currently prescribed. [facility] History I have reviewed the patient's past medical history: Yes Medical History: Reports:: Asthma, Deep Vein Thrombosis, Gastroesophageal Reflux Disease(GERD), Gastrointestinal Bleed, Heart Murmur, Hiatal Hernia, Hypertension, Internal Pacemaker, Lung Disease, Migraine, MRSA, Seizures Denies:: Cancer, Diabetes Mellitus Type 1, Diabetes Mellitus Type 2 *Have you ever received a pneumonia vaccine?: No *Have you received a flu vaccine this season?: No Other Medical History: Reports: Anemia, Arthritis, Fibromyalgia, Other Laterality Cases: Bilateral: Carpal Tunnel Release, Other Other Surgeries: Yes: Appendectomy, Cholecystectomy, , Hysterectomy-Total, Pacemaker, Tubal Ligation Amputation: No Fractures: No - *Social History Smoking Status: Never smoker Alcohol Intake: never Alcohol Intake Frequency:: other Substance Use Type: denies use *Occupational Status:: unemployed Housing: house Household Members: spouse *Travel in the last 8 weeks: None Family Hx:: Unable to obtain
[2021-07-14 08:48] VITALS: BP 129/68; PULSE 71; RESP 18; O2SAT 98; BMI 40.7
== END ==
PROVIDERS: Visit Provider Clinical Nurse Specialist Family Health
DX: G62.9 Polyneuropathy, unspecified (principal); M51.16 Intervertebral disc disorders with radiculopathy, lumbar region
CPT/HCPCS: 99212; G0463

== ENCOUNTER → 2021-07-26 14:22 | Outpatient (CLI) | payer BC, SELFPAY ==
[2021-07-26 16:37] LABS: Alanine Aminotransferase 18 U/L (12-78); Albumin Level 4.1 g/dl (3.5-5.0); Albumin/Globulin Ratio 1.1 (1.1-1.8); Alkaline Phosphatase 75 U/L (38-126); Anion Gap 14.3 mEq/L (5-15); Aspartate Amino Transferase 24 U/L (14-36); Bilirubin,Total 0.2 mg/dl (0.2-1.3); Blood Urea Nitrogen 14 mg/dl (7-17); Calcium 9.7 mg/dl (8.4-10.2); Carbon Dioxide 29 mmol/L (22.0-30.0); Chloride 99 mmol/L (98-107); Estimated Glomerular Filt Rate 131 ml/min (>60); GFR (African American) 158 ML/MIN (>60); Globulin 3.6 g/dL (1.3-3.2); Glucose 94 mg/dl (74-100); Potassium 3.3 mmoL/L (3.5-5.1); Sodium 139 mmol/L (136-145); Total Protein,Serum 7.7 g/dl (6.3-8.2)
== END ==
PROVIDERS: Visit Provider Family Medicine
DX: R60.9 Edema, unspecified (principal)
CPT/HCPCS: 80053

== ENCOUNTER → 2021-08-04 18:48 | Outpatient (CLI) | payer BC, SELFPAY ==
[2021-08-04 18:50] LABS: Adenovirus,PCR Not Detected (NotDetected); Bordetella Pertussis Not Detected (NotDetected); Chlamydophila Pneumoniae, PCR Not Detected (NotDetected); Coronavirus 19, PCR Not Detected (NotDetected); Coronavirus 229E Not Detected (NotDetected); Coronavirus NL63 Not Detected (NotDetected); Coronavirus OC43 Not Detected (NotDetected); Coronovirus HKU1,PCR Not Detected (NotDetected); Human Metapneumovirus Not Detected (NotDetected); Influenza A, PCR Not Detected (NotDetected); Influenza AH1, 2009 Not Detected (NotDetected); Influenza AH1, PCR Not Detected (NotDetected); Influenza AH3,PCR Not Detected (NotDetected); Influenza B, PCR Not Detected (NotDetected); Mycoplasma Pneumoniae, PCR Not Detected (NotDetected); Parainfluenza 1, PCR Not Detected (NotDetected); Parainfluenza 2, PCR Not Detected (NotDetected); Parainfluenza 3, PCR Not Detected (NotDetected); Parainfluenza 4, PCR Not Detected (NotDetected); Respiratory Syncytial Virus Not Detected (NotDetected); Rhinovirus/Enterovirus Not Detected (NotDetected)
== END ==
PROVIDERS: Visit Provider Family Medicine
DX: Z20.822 Contact with and (suspected) exposure to COVID-19 (principal)
CPT/HCPCS: 87581; 87632; 87798; C9803; U0003; U0005

== ENCOUNTER → 2021-08-25 09:11 | Outpatient (POV) | payer BC, SELFPAY ==
--- NOTE | 2021-08-25 09:28 | HMH.PAINSOAP ---
[facility] Pain Management SOAP Note Subjective:: Patient is a 51-year-old white female who presents today for medication refills. Patient did have an appointment this previous week, but was unable to make the appointment. She is here today for follow-up. Patient is managed with oral medications. She is here today with complaints of worsening neuropathic pain. She is having weakness and heaviness in her lower extremities as well as difficulty grasping objects with her bilateral upper extremities. Patient says that the neuropathic pain has progressively worsened over the last few months. She is managed with Lyrica 75 mg 1 tablet p.o. twice daily as well as Fairview 10 mg 1 tablet p.o. 4 times daily. She does not take Lyrica twice daily all the time due to side effects. She says it does make her drowsy. She is having numbness and tingling in bilateral upper and lower extremities. She also reports to be having blackout periods . She says that she will develop severe throbbing pain from her neck to her lumbar spine causing her to blackout . She says that this is not a daily occurrence but generally monthly to every 2 months. She is having frequent falls. She says that she now feels as though she is wearing sleeves to her bilateral forearms at all times due to worsening neuropathic pain. We have performed injective therapy to the patient in the past with minimal relief. The patient has had physical therapy for more than 6 weeks and does continue with home stretching. She denies any cardiac history or carotid stenosis in the past. She has seen Dr. Estrada in the past for sleep study. She has established care with her in the past. She has not had any recent imaging. The patient says medications do give her relief, rating her pain a 5 out of 10, however she does report that the medication is not helping with new onset symptoms. Back pain is well controlled with Fairview. Patient does also report that her legs are giving out . She is having balance issues. She also reports to be having dizziness. Review of Systems General: No recent weight changes, no fever, no sleep disturbances Respiratory: No cough, no shortness of air, no recurring pulmonary infections Cardiovascular/peripheral vascular: No chest pain, no palpitations, no edema, no shortness of breath Gastrointestinal: No new onset incontinence, normal bowel movements reported Genitourinary: No new onset incontinence Musculoskeletal: Bilateral upper extremity pain with numbness and tingling, chronic neck pain, chronic low back pain managed with oral medications, bilateral lower extremity pain with numbness and tingling Psychiatric: [Normal mood/affect] Neurological: Weakness bilateral upper and lower extremities Objective:: Physical exam General: Alert and oriented x3, no acute distress, pleasant and cooperative Lungs: Respirations even and unlabored, symmetrical chest expansion Eyes: PERRL Musculoskeletal: Flexion and extension of cervical and lumbar spine somewhat guarded secondary to pain, [antalgic gait noted] Neurological: Speech clear, no gross sensory deficit Assessment:: Degenerative disc disease cervical spine with cervical radiculopathy symptoms, degenerative disc disease lumbar spine with lumbar radiculopathy symptoms, worsening neuropathic pain Plan:: Patient I did discuss seeing Dr. Estrada. She would like to get imaging of her cervical spine for referring to Dr. Estrada neurology. She is having dizziness along with worsening numbness and tingling in upper extremities. She is reporting a sensation of feeling as though she has sleeves attached to her forearms. She is also complaining of frequent falls with balance issues. She does say that she does not feel this is medication related. The symptoms have been ongoing for some time though she is forgotten to tell the clinic. Patient was continued on her medication Fairview 10 mg 1 tablet p.o. 4 times daily and Lyrica 75
[2021-08-25 09:32] VITALS: BP 179/88; PULSE 85; RESP 18; O2SAT 100; BMI 40.7
[2021-08-25 15:01] LABS: Amphetamine/Metha Screen,Urine Negative ng/ml (<1000)
[2021-08-25 15:03] LABS: Barbiturates Screen,Urine Negative ng/ml (<200); Cannabinoid Screen,Urine Negative ng/ml (<50)
[2021-08-25 15:04] LABS: Benzodiazepines Screen,Urine Negative ng/ml (<200)
[2021-08-25 15:05] LABS: Cocaine Screen,Urine Negative ng/ml (<300); Methadone Screen,Urine Negative ng/ml (<300)
[2021-08-25 15:06] LABS: Opiate Screen,Urine Positive ng/ml (<300); Phencyclidine Screen,Urine Negative ng/ml (<25)
== END ==
PROVIDERS: Visit Provider Clinical Nurse Specialist Family Health
DX: M50.10 Cervical disc disorder with radiculopathy, unspecified cervical region (principal); M51.16 Intervertebral disc disorders with radiculopathy, lumbar region; G62.9 Polyneuropathy, unspecified
CPT/HCPCS: 80305; 99212; G0463

== ENCOUNTER → 2021-09-16 13:20 | Outpatient (CLI) | payer BC, SELFPAY | PROVIDERS: Visit Provider Family Medicine | DX: Z20.822 Contact with and (suspected) exposure to COVID-19 (principal) | CPT/HCPCS: C9803; U0003; U0005 ==

== ENCOUNTER → 2021-09-27 13:48 | Outpatient (CLI) | payer BC, SELFPAY ==
--- NOTE | 2021-09-27 14:01 | MR_ITS ---
PROCEDURE: MR CERVICAL SPINE WO CON CLINICAL INDICATION: NECK PAIN COMPARISON: No exams were available for comparison TECHNIQUE: Standard multiplanar multiecho sequences are performed without contrast. 3-D MIP and myelographic images are also rendered and reviewed FINDINGS: There is normal alignment. There is slight reversal of the cervical lordosis. There is congenital fusion of C2-C3/Klippel-Feil deformity as a normal variant. Craniocervical junction has an unremarkable appearance. C3-C4: Mild left-sided uncovertebral hypertrophy with mild left-sided foraminal narrowing. Mild left lateral recess narrowing. C4-C5: Mild right-sided foraminal narrowing from uncovertebral hypertrophy. C5-C6: There is a small left paracentral disc protrusion which abuts the anterior aspect of the cord with minimal contour deformity of the cord anteriorly on the left. Mild bilateral foraminal narrowing. Canal stenosis at 10 mm C6-C7: Degenerative disc disease with small central disc protrusion with canal stenosis at 10 mm. The disc protrusion abuts the anterior aspect of the cord but no contour deformity anteriorly. Left foraminal narrowing. C7-T1: Unremarkable. No fracture or dislocation. No extruded herniated disc. IMPRESSION: 1. C3-C4: Mild left-sided uncovertebral hypertrophy with mild left-sided foraminal narrowing. Mild left lateral recess narrowing. 2. C4-C5: Mild right-sided foraminal narrowing from uncovertebral hypertrophy. 3. C5-C6: There is a small left paracentral disc protrusion which abuts the anterior aspect of the cord with minimal contour deformity of the cord anteriorly on the left. Mild bilateral foraminal narrowing. Canal stenosis at 10 mm 4. C6-C7: Degenerative disc disease with small central disc protrusion with canal stenosis at 10 mm. The disc protrusion abuts the anterior aspect of the cord but no contour deformity anteriorly. Left foraminal narrowing. Dictated by: Luis Antonio Gardner MD 09/28/2021 10:17 Luis Antonio Gardner MD in [place] 09/28/2021 10:17
== END ==
PROVIDERS: PCP Family Medicine; Visit Provider Clinical Nurse Specialist Family Health
DX: M54.2 Cervicalgia (principal)
CPT/HCPCS: 72141; 76376

== ENCOUNTER → 2021-10-04 08:52 | Outpatient (POV) | payer BC, SELFPAY ==
[2021-10-04 09:00] VITALS: BP 151/81; PULSE 84; RESP 18; O2SAT 100; BMI 50.5
--- NOTE | 2021-10-04 10:23 | HMH.PAINSOAP ---
[facility] Pain Management SOAP Note Subjective:: Patient is a pleasant 51-year-old female who comes in here today for follow-up after an MRI. Patient is currently being treated for degenerative disc disease of the cervical and lumbar spine with cervical lumbar radiculopathy symptoms. Patient is currently being managed with Ebro 10 mg 4 times a day, pregabalin 75 mg twice a day. Patient denies any side effects from these medications. When we last saw this patient, patient says that she has been having some balancing issue and has fallen a lot more this year especially during the summer. Patient does not think she was being oversedated. She denies any syncope and dizziness. From her MRI, patient has some disc protrusion, foraminal narrowing, canal stenosis, degenerative disc disease however it does not explicitly explain what is causing her new onset imbalances. Patient does say she has some radiating pain and numbness to bilateral upper extremities but not all the time. We referred the patient to Dr. Estrada and she's going to follow-up with him. She rates her pain today as 4/10. Her Loi is [id number] with a morphine equivalent of 40. Review of Systems General: No recent weight changes, no fever, no sleep disturbances Respiratory: No cough, no shortness of air, no recurring pulmonary infections Cardiovascular/peripheral vascular: No chest pain, no palpitations, no edema, no shortness of breath Gastrointestinal: No new onset incontinence, normal bowel movements reported Genitourinary: No new onset incontinence Musculoskeletal: Low back Psychiatric: [Normal mood/affect] Neurological: [Denies weakness in extremities], imbalance Objective:: Physical exam General: Alert and oriented x3, no acute distress, pleasant and cooperative Lungs: Respirations even and unlabored, symmetrical chest expansion Eyes: PERRL Musculoskeletal: Flexion and extension of lumbar [spine] somewhat guarded secondary to pain, [antalgic gait noted] Neurological: Speech clear, no gross sensory deficit Assessment:: Degenerative disc disease of the cervical lumbar spine with cervical lumbar radiculopathy symptoms Neuropathic pain Plan:: Patient is going to be following up with Dr. Estrada. Patient says that she was tried on pregabalin 100mg QD and said that it worked well for her. She was wondering if she could be adjusted to pregabalin 100mg BID. We will follow up with the patient in 2 weeks for medication refills and will adjust her pregabalin prescription then. Patient has been instructed to contact the clinic with any concerns before the next appointment. Dr. Venegas has reviewed this note and agrees with this plan of care. This note was dictated using voice recognition software and make contain errors or omissions. [facility] History Medical History: Reports:: Asthma, Deep Vein Thrombosis, Gastroesophageal Reflux Disease(GERD), Gastrointestinal Bleed, Heart Murmur, Hiatal Hernia, Hypertension, Internal Pacemaker, Lung Disease, Migraine, MRSA, Seizures Denies:: Cancer, Diabetes Mellitus Type 1, Diabetes Mellitus Type 2 *Have you ever received a pneumonia vaccine?: Yes *Have you received a flu vaccine this season?: Yes Other Medical History: Reports: Anemia, Arthritis, Fibromyalgia, Other Laterality Cases: Bilateral: Carpal Tunnel Release, Other Other Surgeries: Yes: Appendectomy, Cholecystectomy, , Hysterectomy-Total, Pacemaker, Tubal Ligation Amputation: No Fractures: No - *Social History Smoking Status: Never smoker Alcohol Intake: never Alcohol Intake Frequency:: other Substance Use Type: denies use *Occupational Status:: unemployed Housing: house Household Members: spouse *Travel in the last 8 weeks: None Family Hx:: Unable to obtain
== END ==
PROVIDERS: Visit Provider Clinical Nurse Specialist Family Health
DX: M50.10 Cervical disc disorder with radiculopathy, unspecified cervical region (principal)
CPT/HCPCS: 99212; G0463

== ENCOUNTER → 2021-10-10 09:56 | Outpatient (CLI) | payer BC, SELFPAY | PROVIDERS: PCP Family Medicine; Visit Provider Nurse Practitioner | DX: Z20.822 Contact with and (suspected) exposure to COVID-19 (principal) | CPT/HCPCS: C9803; U0003; U0005 ==

== ENCOUNTER 2021-10-11 10:16 | Emergency (ER) | payer BC, SELFPAY ==
[2021-10-11 10:54] VITALS: BP 156/74; PULSE 78; RESP 18; TEMP 36.6; O2SAT 97; BMI 40.7
[2021-10-11 10:59] VITALS: BP 156/74; PULSE 78; RESP 18; TEMP 36.6
[2021-10-11 10:59] LABS: UTC Strep Screen (Rapid) Negative (Negative)
--- NOTE | 2021-10-11 11:14 | HMH.EDUTC ---
[facility] [place] Clinical Impression: Close exposure to COVID-19 virus, Bronchitis, COVID-19 Disposition: Home, Self-Care Condition on Discharge: Good Instructions: DI for Acute Bronchitis, DI for COVID-19 (Suspected or Confirmed ), Preventing the Spread of Coronavirus Discharge Instructions Additional Instructions: Drink plenty of fluids. Take tylenol or ibuprofen for pain or fever. Take the medications as directed. Follow up with your regular doctor. GO TO THE ER FOR ANY WORSENING SYMPTOMS Quarantine until you know the results of your covid-19 test. If it is positive, the health department should call you and give you further instructions about your length of Quarantine and other things. Notify your school or workplace of your results and follow their instructions regarding return to work/school. The cough medication (promethazine dm) will make you drowsy, so don't drive or operate heavy machinery after taking it. Prescriptions: Promethazine/Dextromethorphan [Promethazine-Dm Syrup] 5 ml PO Q6HP PRN #240 ml PRN Reason: Cough Transmission Status: Received by [employer] methylPREDNISolone [Medrol] 4 mg PO DIRECTED 6 Days #21 packet Transmission Status: Received by [employer] guaiFENesin [Mucinex 600mg tablet] 1 - 2 tab PO BIDP PRN #30 tab PRN Reason: Congestion Transmission Status: Received by [employer] Azithromycin [Z-Salazar 250mg Tab*] 250 mg PO UD DOSE PK #6 tab Transmission Status: Received by [employer] Referrals: Valentin Daniel MD [Primary Care Provider] - Forms: Work/School Release Time of Disposition: 12:10 Medical Decision Making - Medical Records Medical records reviewed: No: I reviewed the patient's medical records. - Loi Inquiry Pt receiving controlled substance: No Vital Signs: 10/11/21 10:54 10/11/21 10:59 Temperature 97.9 F 97.9 F Temperature Source Oral Pulse Rate 78 Pulse Rate [Left] 78 Respiratory Rate 18 18 Blood Pressure 156/74 H Blood Pressure [Right Arm] 156/74 H Blood Pressure Mean [Right Arm] 101 02 Sat by Pulse Oximetry 97 - Lab Data Lab results reviewed: Yes: I reviewed the patient's lab results. Lab Results 10/11/21 10:53: Strep Scn Rapid Clinic Negative Orders (Tests/Meds): ORDERS Category Date Time Status Strep Screen Confirmation Routine Micro 10/11/21 10:53 Received - Radiology Data #1 Image(s): Chest Image Reviewed: Yes I reviewed the patient's radiology image, Yes I have reviewed radiologist's interpretation Preliminary Findings: Normal/NAD, No Infiltrates Seen PROCEDURE: XR CHEST 2V CLINICAL HISTORY: cough, congestion COMPARISON: CR XR CHEST 2V from 03/23/2021 CR XR CHEST PORTABLE from 05/25/2021 FINDINGS: The cardiomediastinal silhouette and pulmonary vascularity are within normal limits. The lungs are clear without infiltrates, suspicious nodules, or pleural effusions. Subchondral cystic changes involve the distal clavicle on the left unchanged.. IMPRESSION: No acute findings. Dictated by: Luis Antonio Gardner MD 10/11/2021 11:42 Luis Antonio Gardner MD in [place] 10/11/2021 11:42 [facility] [place] - General Stated complaint: covid exposure/symptoms Time Seen by Provider: 10/11/21 11:14 Mode of Arrival: Ambulatory Source of Information: Patient Limitations: No Limitations Description of Symptoms (Recalled from Triage Doc. by RN): pt c/o a cough, nasal drainage, sore throat, fever and nausea. pts tested positive for covid yesterday, 10/10. HEENT Symptoms (Recalled from RN notes): Yes (sore throat and nasal drainage) Resp Symptoms (Recalled from RN notes): Yes (cough) Skin Symptoms (Recalled from RN notes): No MS Symptoms (Recalled from RN notes): No Functional Status (Recalled from RN notes): wnl - History of Present Illness Provider Complaint: She states that for the past 2 days she has felt bad, had body aches, chilling, fever up to 100.8, sinus conge
--- NOTE | 2021-10-11 11:22 | XR_ITS ---
PROCEDURE: XR CHEST 2V CLINICAL HISTORY: cough, congestion COMPARISON: CR XR CHEST 2V from 03/23/2021 CR XR CHEST PORTABLE from 05/25/2021 FINDINGS: The cardiomediastinal silhouette and pulmonary vascularity are within normal limits. The lungs are clear without infiltrates, suspicious nodules, or pleural effusions. Subchondral cystic changes involve the distal clavicle on the left unchanged.. IMPRESSION: No acute findings. Dictated by: Luis Antonio Gardner MD 10/11/2021 11:42 Luis Antonio Gardner MD in [place] 10/11/2021 11:42
== END 2021-10-11 12:19 | disposition home or self-care (01) ==
PROVIDERS: Emergency Provider Nurse Practitioner Family; PCP Family Medicine
DX: U07.1 COVID-19 (principal); J20.9 Acute bronchitis, unspecified; I10 Essential (primary) hypertension; K21.9 Gastro-esophageal reflux disease without esophagitis; R01.1 Cardiac murmur, unspecified; Z88.0 Allergy status to penicillin; Z88.7 Allergy status to serum and vaccine; Z88.2 Allergy status to sulfonamides
CPT/HCPCS: 71046; 87880; 99202; C9803; G0463; U0003; U0005

== ENCOUNTER → 2021-10-15 09:46 | Outpatient (CLI) | payer BC, SELFPAY ==
[2021-10-15] VITALS (11 sets, daily range): BP systolic 112–128; BP diastolic 57–70; PULSE 67–69; RESP 16–18; TEMP 36.6; O2SAT 98–100; BMI 40.2
== END ==
PROVIDERS: PCP Family Medicine; Visit Provider Family Medicine
DX: U07.1 COVID-19 (principal); Z23 Encounter for immunization
CPT/HCPCS: 96365; J0696

== ENCOUNTER → 2021-10-18 08:45 | Outpatient (POV) | payer BC, SELFPAY ==
--- NOTE | 2021-10-18 09:09 | HMH.PAINSOAP ---
[facility] Pain Management SOAP Note Subjective:: Patient is a pleasant 51-year-old female who presents today as a telehealth visit for follow-up and medication refill. Patient currently has COVID and cannot come to the clinic. Patient is currently being treated for degenerative disease of the cervical and lumbar spine with cervical and lumbar radiculopathy symptoms. Patient is currently being managed with Lincoln 10 mg 4 times a day and Lyrica 75 mg twice a day. She denies any side effects from these medications. Last time we saw this patient, she said that she was tried on Lyrica 100 mg daily which worked a lot better for her than the Lyrica 75 mg. Since she still had a lot of the Lyrica 75 mg when we saw her, we decided to hold off on changing her prescription then. Today, we will change her Lyrica dose to 75mg in the morning and 100mg in the evening. We will continue her Lincoln 10mg 4 times a day. She rates her pain as 5 out of 10. Her Bereket is [id number] with an active morphine equivalent of 40. Review of Systems General: No recent weight changes, no fever, no sleep disturbances Respiratory: No cough, no shortness of air, no recurring pulmonary infections Cardiovascular/peripheral vascular: No chest pain, no palpitations, no edema, no shortness of breath Gastrointestinal: No new onset incontinence, normal bowel movements reported Genitourinary: No new onset incontinence Musculoskeletal: Low back pain Psychiatric: [Normal mood/affect] Neurological: [Denies weakness in extremities], [denies balance issues] Objective:: Physical exam General: Alert and oriented x3, no acute distress, pleasant and cooperative Lungs: Respirations even and unlabored, symmetrical chest expansion Eyes: PERRL Musculoskeletal: Flexion and extension of lumbar cervical [spine] somewhat guarded secondary to pain, [antalgic gait noted] Neurological: Speech clear, no gross sensory deficit Assessment:: Degenerative disease of the cervical and lumbar spine with cervical and lumbar radiculopathy symptoms Neuropathic Pain Plan:: We will continue the patient's Lincoln 10 mg 4 times a day. We will change her Lyrica to 75mg in the morning and 100mg in the evening. We will provide the patient with 1 month of refills. We would like to see the patient back in 1 month for follow-up. Risks and benefits of the medication have been explained in detail to the patient. The patient does understand the risk of dependence on the medication when given over a prolonged period. Patient has been advised of risks of oversedation with the prescribed medication. Narcan has been offered to the paitent in the event of oversedation. Patient has been advised that a family member should also be educated regarding administration of Narcan. The patient has been advised to consult with his/her primary care provider and pharmacist regarding drug-drug interaction of medications currently prescribed. Patient has been prescribed a controlled substance after being counseled on the medication, medication safety, and possible side effects. BEREKET report has been obtained and reviewed prior to prescription and found to be appropriate. Opioid contract was reviewed and signed by the patient, and that they have agreed to all of the terms set forth by our compliance program. Patient has been instructed to contact the clinic with any concerns before the next appointment. Dr. Venegas has reviewed this note and agrees with this plan of care. This note was dictated using voice recognition software and make contain errors or omissions. [facility] History Medical History: Reports:: Asthma, Deep Vein Thrombosis, Gastroesophageal Reflux Disease(GERD), Gastrointestinal Bleed, Heart Murmur, Hiatal Hernia, Hypertension, Internal Pacemaker, Lung Disease, Migraine, MRSA, Seizures Denies:: Cancer, Diabetes Mellitus Type 1, Diabetes Mellitus Type 2 *Have you ever received a pneumonia vaccine?: Yes *Have you re
== END ==
PROVIDERS: Visit Provider Clinical Nurse Specialist Family Health
DX: M50.10 Cervical disc disorder with radiculopathy, unspecified cervical region (principal); M54.16 Radiculopathy, lumbar region
CPT/HCPCS: 99212; G0463

== ENCOUNTER → 2021-11-15 08:23 | Outpatient (CLI) | payer BC, SELFPAY ==
[2021-11-15 18:36] LABS: Basophils # 0.3 K/mm3 (0-0.2); Basophils % 3.2 % (0.1-2.0); Eosinophils # 0.2 K/mm3 (0.0-0.4); Eosinophils % 2.4 % (0.1-12.0); Hematocrit 39.6 % (37.0-47.0); Hemoglobin 12.4 g/dL (12.2-16.2); Lymphocytes # 3.6 K/mm3 (0.7-4.5); Lymphocytes % 39.3 % (10-50); Mean Corpuscular HGB Conc 31.2 g/dL (31.8-35.4); Mean Corpuscular Hemoglobin 27.2 pg (27.0-31.2); Mean Corpuscular Volume 87.2 fl (81-99); Monocytes # 0.4 K/mm3 (0.1-1.0); Monocytes % 4.3 % (1.7-9.3); Neutrophils # 4.7 K/mm3 (1.8-7.8); Neutrophils % 50.8 % (37.0-80.0); Platelet Count 419 K/mm3 (142-424); Red Blood Count 4.54 M/mm3 (4.20-5.40); White Blood Count 9.2 K/mm3 (4.8-10.8)
== END ==
PROVIDERS: PCP Family Medicine; Visit Provider Family Medicine
DX: R06.02 Shortness of breath (principal); R42 Dizziness and giddiness; D64.9 Anemia, unspecified; R53.83 Other fatigue
CPT/HCPCS: 36415; 85025

== ENCOUNTER → 2021-11-15 08:42 | Outpatient (POV) | payer BC, SELFPAY ==
[2021-11-15 08:58] VITALS: BP 158/57; PULSE 84; RESP 18; O2SAT 95; BMI 42.1
--- NOTE | 2021-11-15 09:40 | HMH.PAINSOAP ---
[facility] Pain Management SOAP Note Subjective:: Patient is a 51-year-old white female who presents today for follow-up. She did work last night and is having significant pain today. She works 12-hour shifts at nighttime. She is on Lyrica 75 mg 1 tablet p.o. daily as well as [place] 10 mg 1 tablet p.o. 4 times daily. She is bent forward today with significant pain in her bilateral low back area and into the buttock. She is on Xarelto. The patient's providers will not allow her to hold her Xarelto for interventional injections. She is interested in injections, however. She is tender to palpation bilateral SI joints today. She does get about 60% relief with her oral medications. Today, she rates her pain a 7 out of 10. Review of Systems General: No recent weight changes, no fever, no sleep disturbances Respiratory: No cough, no shortness of air, no recurring pulmonary infections Cardiovascular/peripheral vascular: No chest pain, no palpitations, no edema, no shortness of breath Gastrointestinal: No new onset incontinence, normal bowel movements reported Genitourinary: No new onset incontinence Musculoskeletal: Low back pain with radiation into bilateral buttock and hips Psychiatric: [Normal mood/affect] Neurological: [Denies weakness in extremities], [denies balance issues] Objective:: Physical exam General: Alert and oriented x3, no acute distress, pleasant and cooperative Lungs: Respirations even and unlabored, symmetrical chest expansion Eyes: PERRL Musculoskeletal: Flexion and extension of lumbar [spine] somewhat guarded secondary to pain, [antalgic gait noted], positive Meng's test, positive Jorge Luis's test, positive compression test, positive distraction test, positive Gaenslen test Neurological: Speech clear, no gross sensory deficit Assessment:: Degenerative disc disease lumbar and cervical spine with lumbar and cervical radiculopathy symptoms, neuropathic pain, sacroiliitis bilateral Plan:: We will schedule patient for bilateral SI joint injections. She is positive for Jorge Luis's, Meng's, distraction, Gaenslen's test today. She also has positive compression test. We will increase patient's Lyrica to 100 mg 1 tablet p.o. twice daily. We will give patient [place] 10 mg 1 tablet p.o. 5 times daily. She will get a month medication. We will see her back in clinic in 1 month for medication refills and she will undergo injective therapy bilateral SI joints. Possible side effects of corticosteroids have been discussed with the patient. Risks and benefits of the procedure have been explained to the patient. Patient would like to proceed with the procedure. Patient has been instructed to contact the clinic with any concerns before the next appointment. Risks and benefits of the medication have been explained in detail to the patient. The patient does understand the risk of dependence on the medication when given over a prolonged period. Patient has been advised of risks of oversedation with the prescribed medication. Narcan has been offered to the paitent in the event of oversedation. Patient has been advised that a family member should also be educated regarding administration of Narcan. The patient has been advised to consult with his/her primary care provider and pharmacist regarding drug-drug interaction of medications currently prescribed. Patient has been prescribed a controlled substance after being counseled on the medication, medication safety, and possible side effects. BEREKET report has been obtained and reviewed prior to prescription and found to be appropriate. Opioid contract was reviewed and signed by the patient, and that they have agreed to all of the terms set forth by our compliance program. Patient has been instructed to contact the clinic with any concerns before the next appointment. Dr. Venegas has reviewed this note and agrees with this plan of care. This note was dictated using voice recogn
== END ==
PROVIDERS: Visit Provider Clinical Nurse Specialist Family Health
DX: M50.10 Cervical disc disorder with radiculopathy, unspecified cervical region (principal); G62.9 Polyneuropathy, unspecified; M46.1 Sacroiliitis, not elsewhere classified
CPT/HCPCS: 99212; G0463

== ENCOUNTER 2021-12-09 09:36 | Day surgery (SDC) | payer BC, SELFPAY ==
[2021-12-09 10:12] VITALS: BP 177/92; PULSE 76; RESP 18; TEMP 36.5; O2SAT 99; BMI 40.7
[2021-12-09 10:51] VITALS: BP 165/80; PULSE 79; RESP 18; O2SAT 98
--- NOTE | 2021-12-09 10:52 | P.PCN_ITS ---
- Procedure Date: 12/09/21 Time: 10:52 Anesthesiologist:: Bee Rosales MD Complications:: None Pre-procedure Diagnosis:: Bilateral sacroiliitis, bilateral hip pain, chronic low back pain Post-procedure Diagnosis:: Same Indications for Procedure:: Patient is a very pleasant 51-year-old white female who presents today with chronic low back pain and bilateral hip pain related to the above diagnosis. She has tried and failed conservative treatment getting oral pain medications and home stretching program for greater than 6 weeks. She states that she works 12-hour shifts at nighttime due to her job. She is currently prescribed Lyrica 75 mg 1 tablet p.o. daily as well as [place] 10 mg 1 tablet 4 times a day. She is also on Xarelto and unfortunately she is not able to hold Xarelto for her interventional injections. Today the plan is for the patient to undergo bilateral SI joint injections under fluoroscopy. Procedure Details:: B/L SI joint injection under fluoroscopy Informed consent was obtained and the risks and benefits of the procedure was explained to the patient. The patient was taken to the procedure room and placed prone on the procedure table. The patient was prepped using ChloraPrep. The skin and subcutaneous tissues overlying the SI joints were anesthetized using lidocaine. I placed a 22-gauge needle first in the left SI joint and second in the right SI joint. Needle placement was confirmed with dye. After this we injected 5 mL bupivacaine 0.25% and Depo-Medrol 40 mg into each SI joint. Patient tolerated the procedure well with no complication. Plan and Disposition:: We will follow-up with this patient in 2 weeks. Will reevaluate pain symptoms at that time.
[2021-12-09 10:53] VITALS: BP 160/80; PULSE 78; RESP 20; O2SAT 98
[2021-12-09 11:02] VITALS: BP 151/87; PULSE 76; RESP 20; O2SAT 98
== END 2021-12-09 11:03 | disposition home or self-care (01) ==
LOC: SC.PAINP 09:36
PROVIDERS: PCP Family Medicine; Visit Provider Anesthesiology Pain Medicine
DX: M46.1 Sacroiliitis, not elsewhere classified (principal); M25.551 Pain in right hip; M25.552 Pain in left hip; M54.50 Low back pain, unspecified; G89.29 Other chronic pain; E78.5 Hyperlipidemia, unspecified; I10 Essential (primary) hypertension; E03.9 Hypothyroidism, unspecified; Z72.0 Tobacco use
CPT/HCPCS: 27096; G0260; J1040; Q9966

== ENCOUNTER → 2022-01-02 14:37 | Outpatient (POV) | payer BC, SELFPAY ==
[2022-01-02 15:15] VITALS: BP 149/89; PULSE 86; RESP 18; O2SAT 98
--- NOTE | 2022-01-02 15:44 | P.CONS_ITS ---
[facility] Pain Management SOAP Note Subjective:: Patient is a pleasant 51-year-old female who presents today for follow-up after a bilateral SI injection. Patient is currently being treated for bilateral sacroiliitis, chronic low back pain. Patient had a spinal cord stimulator about 5 years ago that got infected so they had to explant the stimulator. Patient did say that she had significant relief of her symptoms with the stimulator. Currently, we are managing this patient's pain with Lyrica 100 mg daily and [place] 10 mg 5 times a day. Patient denies any side effects from these medications. Patient is wanting refills on these medications. Rates her pain today as 4 out of 10. [facility] #[id number] with an active morphine equivalent of 50 has been reviewed and appropriate. General: No recent weight changes, no fever, no sleep disturbances Respiratory: No cough, no shortness of air, no recurring pulmonary infections Cardiovascular/peripheral vascular: No chest pain, no palpitations, no edema, no shortness of breath Gastrointestinal: No new onset incontinence, normal bowel movements reported Genitourinary: No new onset incontinence Musculoskeletal: Low back pain Psychiatric: [Normal mood/affect] Neurological: [Denies weakness in extremities], [denies balance issues] Objective:: General: Alert and oriented x3, no acute distress, pleasant and cooperative, [on room air] Lungs: Respirations even and unlabored, symmetrical chest expansion Eyes: PERRL Musculoskeletal: Flexion and extension of lumbar [spine] somewhat guarded secondary to pain, bilateral hips have limited range of motion secondary to pain Neurological: Speech clear, no gross sensory deficit Assessment:: Chronic low back pain, bilateral sacroiliitis, bilateral hip pain Plan:: Patient had bilateral SI injection recently that provided 0 relief. She is also taking Xarelto and cannot stop this medication so we are limited on our options for pain management. At the moment, we will continue the patient's [place] 10 mg 5 times a day and Lyrica 100 mg daily. We will provide the patient with 1 month worth of refill. Would like to see the patient back in 1 month. Patient has been instructed to contact the clinic with any concerns before the next appointment. Dr. Venegas has reviewed this note and agrees with this plan of care. This note was dictated using voice recognition software and make contain errors or omissions. [facility] History Medical History: Reports:: Asthma, Congestive Heart Failure, Deep Vein Thrombosis, Gastroesophageal Reflux Disease(GERD), Gastrointestinal Bleed, Heart Murmur, Hiatal Hernia, Hyperlipidemia, Hypertension, Internal Pacemaker, Lung Disease, Migraine, MRSA, Seizures Denies:: Cancer, Diabetes Mellitus Type 1, Diabetes Mellitus Type 2 *Have you ever received a pneumonia vaccine?: Yes *Have you received a flu vaccine this season?: Yes Other Medical History: Reports: Anemia, Arthritis, Fibromyalgia, Other Laterality Cases: Bilateral: Carpal Tunnel Release, Other Other Surgeries: Yes: Appendectomy, Cardiac Catheterization, Cholecystectomy, C- section, Hysterectomy-Total, Pacemaker, Tubal Ligation Amputation: No Fractures: No - *Social History Smoking Status: Never smoker Alcohol Intake: never Alcohol Intake Frequency:: other Substance Use Type: denies use *Occupational Status:: employed Housing: house Household Members: spouse *Travel in the last 8 weeks: None Family Hx:: No significant family history
== END ==
PROVIDERS: Visit Provider Student in an Organized Health Care Education/Training Program
DX: M54.50 Low back pain, unspecified (principal); G89.29 Other chronic pain; M46.1 Sacroiliitis, not elsewhere classified; M25.551 Pain in right hip; M25.552 Pain in left hip
CPT/HCPCS: 99212; G0463

== ENCOUNTER → 2022-01-03 09:54 | Outpatient (CLI) | payer BC, SELFPAY ==
[2022-01-03 12:06] LABS: Barbiturates Screen,Urine Negative ng/ml (<200); Benzodiazepines Screen,Urine Negative ng/ml (<200)
[2022-01-03 12:07] LABS: Amphetamine/Metha Screen,Urine Negative ng/ml (<1000)
[2022-01-03 12:08] LABS: Methadone Screen,Urine Negative ng/ml (<300)
[2022-01-03 12:09] LABS: Cannabinoid Screen,Urine Negative ng/ml (<50); Cocaine Screen,Urine Negative ng/ml (<300)
[2022-01-03 12:10] LABS: Opiate Screen,Urine Positive ng/ml (<300)
[2022-01-03 12:11] LABS: Phencyclidine Screen,Urine Negative ng/ml (<25)
[2022-01-10 22:11] LABS: Codeine Negative (Cutoff=100); Hydrocodone Positive (.); Hydromorphone Positive (.); Morphine Negative (Cutoff=100); Opiates Positive (.)
== END ==
PROVIDERS: Anesthesiology Pain Medicine; Visit Provider Anesthesiology
DX: Z79.891 Long term (current) use of opiate analgesic (principal)
CPT/HCPCS: 80305; 80361; 80365; G0480

== ENCOUNTER → 2022-02-02 12:49 | Outpatient (POV) | payer BC, SELFPAY ==
[2022-02-02 13:02] VITALS: BP 140/80; PULSE 74; RESP 18; TEMP 36.1; O2SAT 95; BMI 41.6
--- NOTE | 2022-02-02 14:35 | P.CONS_ITS ---
[facility] Pain Management SOAP Note Subjective:: Patient is a pleasant 51-year-old female who is here for medication refill and follow-up. Patient is currently being treated for bilateral sacroiliitis, chronic low back pain. Patient had a spinal cord stimulator about 5 years ago that got infected and had to be explanted. She did have significant relief when she had her stimulator. Patient is being managed with Lyrica 100 mg daily and [place] 10 mg 5 times a day. Patient denies any side effects from the medications. Patient denies any changes to the location and type of pain. Patient states that this is adequately helping manage their pain. Rates pain as 3 out of 10. [facility] number [id number] with an active morphine equivalent 50. Drug screens have been reviewed and appropriate. Review of Systems: General: No recent weight changes, no fever, no sleep disturbances Respiratory: No cough, no shortness of air, no recurring pulmonary infections Cardiovascular/peripheral vascular: No chest pain, no palpitations, no edema, no shortness of breath Gastrointestinal: No new onset incontinence, normal bowel movements reported Genitourinary: No new onset incontinence Musculoskeletal: Low back pain Psychiatric: [Normal mood/affect] Neurological: [Denies weakness in extremities], [denies balance issues] Objective:: Physical Exam: General: Alert and oriented x3, no acute distress, pleasant and cooperative, [on room air] Lungs: Respirations even and unlabored, symmetrical chest expansion Eyes: PERRL Musculoskeletal: Flexion and extension of lumbar [spine] somewhat guarded secondary to pain, [antalgic gait noted] Neurological: Speech clear, no gross sensory deficit Assessment:: Degenerative disease of lumbar spine with a medical for the symptoms Bilateral sacroiliitis Plan:: We will continue the patient's [place] 10 mg 5 times a day and Lyrica 100 mg daily. We will provide the patient with 1 month of refills. We would like to see the patient back in 1 month for follow-up and reevaluation of chronic pain syndrome. Patient has been advised of risks of oversedation with the prescribed medication. Narcan has been offered to the patient in the event of oversedation. Patient has been advised that a family member should also be educated regarding administration of Narcan. Patient has been instructed to contact the clinic with any concerns before the next appointment. Dr. Venegas has reviewed this note and agrees with this plan of care. This note was dictated using voice recognition software and make contain errors or omissions. [facility] History Medical History: Reports:: Asthma, Congestive Heart Failure, Deep Vein Thrombosis, Gastroesophageal Reflux Disease(GERD), Gastrointestinal Bleed, Heart Murmur, Hiatal Hernia, Hyperlipidemia, Hypertension, Internal Pacemaker, Lung Disease, Migraine, MRSA, Seizures Denies:: Cancer, Diabetes Mellitus Type 1, Diabetes Mellitus Type 2 *Have you ever received a pneumonia vaccine?: Yes *Have you received a flu vaccine this season?: Yes Other Medical History: Reports: Anemia, Arthritis, Fibromyalgia, Other Laterality Cases: Bilateral: Carpal Tunnel Release, Other Other Surgeries: Yes: Appendectomy, Cardiac Catheterization, Cholecystectomy, C- section, Hysterectomy-Total, Pacemaker, Tubal Ligation Amputation: No Fractures: No - *Social History Smoking Status: Never smoker Alcohol Intake: never Alcohol Intake Frequency:: other Substance Use Type: denies use *Occupational Status:: employed Housing: house Household Members: spouse *Travel in the last 8 weeks: None Family Hx:: No significant fami
== END ==
PROVIDERS: Visit Provider Student in an Organized Health Care Education/Training Program
DX: M51.36 Other intervertebral disc degeneration, lumbar region (principal); M46.1 Sacroiliitis, not elsewhere classified
CPT/HCPCS: 99212; G0463

== ENCOUNTER → 2022-03-02 13:24 | Outpatient (POV) | payer BC, SELFPAY ==
[2022-03-02 13:52] VITALS: BP 148/79; PULSE 83; RESP 18; TEMP 36.2; O2SAT 94; BMI 42.5
--- NOTE | 2022-03-02 15:21 | P.CONS_ITS ---
[facility] Pain Management SOAP Note Subjective:: Patient is a pleasant 52-year-old female who is here for medication refill and follow-up. Patient is currently being treated for chronic low back pain, bilateral sacroiliitis. Patient had a spinal cord stimulator about 5 years ago that got infected and had to be explanted. She was having significant relief with the stimulator. We are now managing this patient with oral medications. Patient is being managed with Lyrica 100 mg daily and [place] 10 mg 5 times a day. Patient denies any side effects from the medications. Patient denies any changes to the location and type of pain. Patient states that this is adequately helping manage their pain. Rates pain as 6 out of 10. [facility] number [phone] with an active morphine equivalent 50. Drug screens have been reviewed and appropriate. Review of Systems: General: No recent weight changes, no fever, no sleep disturbances Respiratory: No cough, no shortness of air, no recurring pulmonary infections Cardiovascular/peripheral vascular: No chest pain, no palpitations, no edema, no shortness of breath Gastrointestinal: No new onset incontinence, normal bowel movements reported Genitourinary: No new onset incontinence Musculoskeletal: Low back pain Psychiatric: [Normal mood/affect] Neurological: [Denies weakness in extremities], [denies balance issues] Objective:: Physical Exam: General: Alert and oriented x3, no acute distress, pleasant and cooperative Lungs: Respirations even and unlabored, symmetrical chest expansion Eyes: PERRL Musculoskeletal: Flexion and extension of lumbar [spine] somewhat guarded secondary to pain, [antalgic gait noted] Neurological: Speech clear, no gross sensory deficit Assessment:: Bilateral sacroiliitis, chronic low back pain Plan:: We will continue the patient's [place] 10 mg 5 times a day and Lyrica 100 mg daily. We will provide the patient with a month of refills. We would like to see the patient back in 1 month for follow-up and reevaluation of chronic pain syndrome. Patient has been advised of risks of oversedation with the prescribed medication. Narcan has been offered to the patient in the event of oversedation. Patient has been advised that a family member should also be educated regarding administration of Narcan. Patient has been instructed to contact the clinic with any concerns before the next appointment. Dr. Venegas has reviewed this note and agrees with this plan of care. This note was dictated using voice recognition software and make contain errors or omissions. [facility] History Medical History: Reports:: Asthma, Congestive Heart Failure, Deep Vein T hrombosis, Gastroesophageal Reflux Disease(GERD), Gastrointestinal Bleed, Heart Murmur, Hiatal Hernia, Hyperlipidemia, Hypertension, Internal Pacemaker, Lung Disease, Migraine, MRSA, Seizures Denies:: Cancer, Diabetes Mellitus Type 1, Diabetes Mellitus Type 2 *Have you ever received a pneumonia vaccine?: Yes *Have you received a flu vaccine this season?: Yes Other Medical History: Reports: Anemia, Arthritis, Fibromyalgia, Other Laterality Cases: Bilateral: Carpal Tunnel Release, Other Other Surgeries: Yes: Appendectomy, Cardiac Catheterization, Cholecystectomy, C- section, Hysterectomy-Total, Pacemaker, Tubal Ligation Amputation: No Fractures: No - *Social History Smoking Status: Never smoker Alcohol Intake: never Alcohol Intake Frequency:: other Substance Use Type: denies use *Occupational Status:: employed Housing: house Household Members: spouse *Travel in the last 8 weeks: None Family Hx:: No significant family history
== END ==
PROVIDERS: Visit Provider Student in an Organized Health Care Education/Training Program
DX: M46.1 Sacroiliitis, not elsewhere classified (principal); M54.50 Low back pain, unspecified; G89.29 Other chronic pain
CPT/HCPCS: 99212; G0463

== ENCOUNTER → 2022-03-20 13:50 | Outpatient (CLI) | payer BC, SELFPAY ==
--- NOTE | 2022-03-20 13:53 | XR_ITS ---
FINAL REPORT CLINICAL HISTORY: cough COMPARISON: October 11, 2021 FINDINGS: Two views of the chest were obtained. The heart size and pulmonary vascularity are within normal limits. The mediastinum is normal. No acute pulmonary abnormality is identified. There is no pneumothorax. The bony thorax is intact. IMPRESSION: No active cardiopulmonary disease. Reviewed, Interpreted and Dictated by Mundo Horowitz III, MD Transcribed by Aruna Bazzi Authenticated and . [facility]
[2022-03-20 16:45] LABS: Adenovirus,PCR Not Detected (NotDetected); Bordetella Pertussis Not Detected (NotDetected); Chlamydophila Pneumoniae, PCR Not Detected (NotDetected); Coronavirus 19, PCR Not Detected (NotDetected); Coronavirus 229E Not Detected (NotDetected); Coronavirus NL63 Not Detected (NotDetected); Coronavirus OC43 Not Detected (NotDetected); Coronovirus HKU1,PCR Not Detected (NotDetected); Human Metapneumovirus Not Detected (NotDetected); Influenza A, PCR Not Detected (NotDetected); Influenza AH1, 2009 Not Detected (NotDetected); Influenza AH1, PCR Not Detected (NotDetected); Influenza AH3,PCR Not Detected (NotDetected); Influenza B, PCR Not Detected (NotDetected); Mycoplasma Pneumoniae, PCR Not Detected (NotDetected); Parainfluenza 1, PCR Not Detected (NotDetected); Parainfluenza 2, PCR Not Detected (NotDetected); Parainfluenza 3, PCR Not Detected (NotDetected); Parainfluenza 4, PCR Not Detected (NotDetected); Respiratory Syncytial Virus Not Detected (NotDetected); Rhinovirus/Enterovirus Not Detected (NotDetected)
== END ==
LOC: LAB 13:50 → LAB.DROPOF 03-21 07:02
PROVIDERS: PCP Nurse Practitioner Family; Visit Provider Nurse Practitioner Family
DX: Z20.822 Contact with and (suspected) exposure to COVID-19 (principal); R05.9 Cough, unspecified; R06.02 Shortness of breath; J02.9 Acute pharyngitis, unspecified
CPT/HCPCS: 71046; 87581; 87632; 87798; C9803; U0003; U0005

== ENCOUNTER → 2022-03-28 13:46 | Outpatient (POV) | payer BC, SELFPAY ==
[2022-03-28 14:02] VITALS: BP 141/77; PULSE 83; RESP 17; TEMP 36.6; O2SAT 98; BMI 41.8
--- NOTE | 2022-03-28 14:10 | P.CONS_ITS ---
[facility] Pain Management SOAP Note Subjective:: This patient is a pleasant 52-year-old female who comes our clinic today for medication refill. Patient is currently being treated for chronic low back pain, bilateral sacroiliitis. Chronic lupus symptoms. We are medically managing her with Lyrica 100 mg 1 p.o. daily. Also [place] 10 mg 5 times daily. I am reviewing her Loi #[id number] and it is appropriate. Patient describes her low back pain as constant, dull, aching. 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 Objective:: Patient is awake alert [place] x3. In no acute distress. Flexion-extension lumbar spine very guarded secondary to pain. Deep tendon reflexes upper and lower extremities normal. Motor strength upper and lower extremities normal. There is no gross sensory deficit. Gait is normal. Assessment:: Degenerative disc disease lumbar spine multilevels. Lumbar back pain. Lumbar radiculopathy symptoms. Plan:: We will refill her medication. [place] 10 mg 1 p.o. 5 times daily. Lyrica 100 mg daily. She will follow-up with us in a month. [facility] History Medical History: Reports:: Asthma, Congestive Heart Failure, Deep Vein Thrombosis, Gastroesophageal Reflux Disease(GERD), Gastrointestinal Bleed, Heart Murmur, Hiatal Hernia, Hyperlipidemia, Hypertension, Internal Pacemaker, Lung Disease, Migraine, MRSA, Seizures Denies:: Cancer, Diabetes Mellitus Type 1, Diabetes Mellitus Type 2 *Have you ever received a pneumonia vaccine?: Yes *Have you received a flu vaccine this season?: Yes Other Medical History: Reports: Anemia, Arthritis, Fibromyalgia, Other Laterality Cases: Bilateral: Carpal Tunnel Release, Other Other Surgeries: Yes: Appendectomy, Cardiac Catheterization, Cholecystectomy, C- section, Hysterectomy-Total, Pacemaker, Tubal Ligation Amputation: No Fractures: No - *Social History Smoking Status: Never smoker Alcohol Intake: never Alcohol Intake Frequency:: other Substance Use Type: denies use *Occupational Status:: other Housing: house Household Members: spouse *Travel in the last 8 weeks: None Family Hx:: No significant family history
== END ==
PROVIDERS: PCP Family Medicine; Visit Provider Nurse Anesthetist, Certified Registered
DX: M51.16 Intervertebral disc disorders with radiculopathy, lumbar region (principal); M46.1 Sacroiliitis, not elsewhere classified
CPT/HCPCS: 99212; G0463

== ENCOUNTER 2022-03-29 14:12 | Emergency (ER) | payer BC, SELFPAY ==
[2022-03-29 14:50] VITALS: BP 141/71; PULSE 73; RESP 19; TEMP 36.9; O2SAT 98; BMI 41.8
[2022-03-29 15:07] LABS: Adenovirus,PCR Not Detected (NotDetected); Bordetella Pertussis Not Detected (NotDetected); Chlamydophila Pneumoniae, PCR Not Detected (NotDetected); Coronavirus 19, PCR Not Detected (NotDetected); Coronavirus 229E Not Detected (NotDetected); Coronavirus NL63 Not Detected (NotDetected); Coronavirus OC43 Not Detected (NotDetected); Coronovirus HKU1,PCR Not Detected (NotDetected); Human Metapneumovirus Not Detected (NotDetected); Influenza A, PCR Not Detected (NotDetected); Influenza AH1, 2009 Not Detected (NotDetected); Influenza AH1, PCR Not Detected (NotDetected); Influenza AH3,PCR Not Detected (NotDetected); Influenza B, PCR Not Detected (NotDetected); Mycoplasma Pneumoniae, PCR Not Detected (NotDetected); Parainfluenza 1, PCR Not Detected (NotDetected); Parainfluenza 2, PCR Not Detected (NotDetected); Parainfluenza 3, PCR Not Detected (NotDetected); Parainfluenza 4, PCR Not Detected (NotDetected); Respiratory Syncytial Virus Not Detected (NotDetected); Rhinovirus/Enterovirus Not Detected (NotDetected)
--- NOTE | 2022-03-29 15:10 | HMH.EDUTC ---
[facility] [place] Clinical Impression: Sinusitis Qualifiers: Sinusitis location: unspecified location Chronicity: unspecified Qualified Code(s): J32.9 - Chronic sinusitis, unspecified Disposition: Home, Self-Care Condition on Discharge: Good Instructions: Vertigo, Sinusitis, DI for Sinusitis, DI for Vertigo, Meclizine Additional Instructions: *Monitor Temp, Over the counter Motrin or Tylenol as directed/as needed Tylenol every 4 hours and Motrin every 6 hours (as long as your family doctor has told you that you can take it) for fever or pain. and straight to ER if unable to lower temp less than 101.0 after medication given *Warm salt water gargles may help to soothe the throat *Throat Lozenges *Warm fluids like tea with honey may help to soothe the throat *Sleep elevated *Humidifier/Vaporizer Follow up IMMEDIATELY for new or worsening symptoms or no Noticeable improvement over the next 48-72 hours. 911 for difficulty breathing or swallowing You were tested for today for COVID19 your test result should be back in the next 24-48 hours, you may check your results on the [facility] [employer] [facility] Portal Make sure to take your Vitamins Vit. C Vit D and Zinc if you can take them Prescriptions: Meclizine HCl 12.5 mg PO Q8HP PRN #10 tab PRN Reason: Dizziness Transmission Status: Pending to [facility] Azithromycin [Z-Salazar 250mg Tab] 250 mg PO DIRECTED #6 tab Transmission Status: Pending to [facility] Referrals: Valentin Daniel MD [Primary Care Provider] - As needed Forms: Work/School Release Medical Decision Making - Loi Inquiry Pt receiving controlled substance: No Loi was queried for this patient: No Vital Signs: 03/29/22 14:50 Temperature 98.4 F Temperature Source Oral Pulse Rate [Right Brachial] 73 Respiratory Rate 19 Blood Pressure [Right Arm] 141/71 H Blood Pressure Mean [Right Arm] 94 Blood Pressure Source [Right Arm] Automatic Cuff Blood Pressure Position [Right Arm] Sitting 02 Sat by Pulse Oximetry 98 Oxygen Delivery Method Room Air Orders (Tests/Meds): ORDERS Category Date Time Status Full Resp Panel w/COVID ([facility]) Routine Lab 03/29/22 14:50 Received Medical Decision Narrative: Medication discussed with pharmacy patient states that she has taken azithromycin in the past without complications or reactions [facility] [place] - General Stated complaint: soa, body aches Time Seen by Provider: 03/29/22 15:10 Mode of Arrival: Ambulatory Source of Information: Patient Limitations: No Limitations Description of Symptoms (Recalled from Triage Doc. by RN): PATIENT C/O BODY ACHES, FATIGUE, SOA AND DIZZINESS SINCE YESTERDAY HEENT Symptoms (Recalled from RN notes): No Resp Symptoms (Recalled from RN notes): Yes Skin Symptoms (Recalled from RN notes): No MS Symptoms (Recalled from RN notes): No Functional Status (Recalled from RN notes): WNL - History of Present Illness Provider Complaint: Patient states that she has been having body aches, chills, sinus congestion, headache and dizzy States that she has continued to feel worse over the last few days and today when she would bend over or move quickly she would feel dizzy States that pressure behind her eyes has continued to feel worse so she came in - Related Data Home Medications Medication Instructions Recorded Confirmed tizanidine 4 mg tablet 4 mg PO TIDP PRN #90 tab 07/28/19 03/28/22 Albuterol Sulfate [Albuterol See Rx Instructions .ROUTE .COMPLEX 12/09/21 03/28/22 Sulfate Hfa] Esomeprazole Magnesium 40 mg PO BID 12/09/21 03/28/22 Losartan Potassium [Cozaar 50mg See Rx Instructions .ROUTE .COMPLEX 12/09/21 03/28/22 Tablets] Rivaroxaban [Xarelto] See Rx Instructions .ROUTE .COMPLEX 12/09/21 03/28/22 Spironolactone See Rx Instructions .ROUTE .COMPLEX 12/09/21 03/28/22 carvediloL [Carvedilol 6.25mg Tab] See Rx Instructions .ROUTE .COMPLEX 12/09/21 03/28/22 estradioL [Estradiol] See Rx Instructions .ROUTE .COMPLEX 12/09/21
[2022-03-29 15:27] VITALS: BP 141/71; PULSE 73; RESP 19; TEMP 36.9; O2SAT 98
== END 2022-03-29 15:30 | disposition home or self-care (01) ==
PROVIDERS: Emergency Provider Nurse Practitioner; PCP Family Medicine
DX: J32.9 Chronic sinusitis, unspecified (principal)
CPT/HCPCS: 87581; 87632; 87798; 99212; C9803; G0463; U0003; U0005

== ENCOUNTER → 2022-04-27 10:02 | Outpatient (POV) | payer SELFPAY ==
[2022-04-27 11:06] VITALS: BP 138/64; PULSE 85; RESP 18; TEMP 36.8; O2SAT 94; BMI 41.6
--- NOTE | 2022-04-27 12:26 | HMH.PAINSOAP ---
[facility] Pain Management SOAP Note Subjective:: Patient is a pleasant 52-year-old female who comes to our clinic today for medication refill. We are currently treating her for chronic low back pain, bilateral sacroiliitis, chronic lupus symptoms, degenerative disc disease of lumbar spine multilevels with lumbar radiculopathy symptoms. We are currently managing her pain with Lyrica 100 mg daily and hydrocodone 10 mg 5 times a day. States these medications are helping manage her pain. Patient denies any change to the location or type of pain she has. She rates her pain a 5 out of 10. She states her pain is in her legs and describes it as a severe aching sensation. She said activity makes her legs better however when she increases her activity her back becomes worse. She has done physical therapy in the past and states it just made her pain worse. She is also had injective therapy with minimal relief. She did also have a spinal cord stimulator in her history that was unfortunately removed due to becoming infected. Patient has not tried topical medication in the past. 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 She would like refills at today's visit. Her Loi is [id number]. It has been reviewed and is appropriate. Review of Systems: General: No recent weight changes, no fever, no sleep disturbances Respiratory: No cough, no shortness of air, no recurring pulmonary infections Cardiovascular/peripheral vascular: No chest pain, no palpitations, no edema, no shortness of breath Gastrointestinal: No new onset incontinence, normal bowel movements reported Genitourinary: No new onset incontinence Musculoskeletal: Low back pain, bilateral leg pain Psychiatric: [Normal mood/affect] Neurological: [Denies weakness in extremities], [denies balance issues] Objective:: Physical Exam: General: Alert and oriented x3, no acute distress, pleasant and cooperative Lungs: Respirations even and unlabored, symmetrical chest expansion Eyes: PERRL Musculoskeletal: Flexion and extension of bilateral legs, lumbar [spine] somewhat guarded secondary to pain, [antalgic gait noted] Neurological: Speech clear, no gross sensory deficit Assessment:: Chronic low back pain, bilateral sacroiliitis, chronic lupus symptoms, bilateral leg pain, degenerative disc disease of lumbar spine multilevel with lumbar radiculopathy Plan:: We will continue the patient's Lyrica and [place]. We will provide the patient with 1 month of refills. I will prescribe the patient compounding cream at today's visit. Patient will return to clinic in 1 month for follow-up and medication refill. Patient has been advised of risks of oversedation with the prescribed medication. Narcan has been offered to the patient in the event of oversedation. Patient has been advised that a family member should also be educated regarding administration of Narcan. Patient has been instructed to contact the clinic with any concerns before the next appointment. Dr. Venegas has reviewed this note and agrees with this plan of care. This note was dictated using voice recognition software and make contain errors or omissions. [facility] History I have reviewed the patient's past medical history: Yes Medical History: Reports:: Asthma, Congestive Heart Failure, Deep Vein Thrombosis, Gastroesophageal Reflux Disease(GERD), Gastrointestinal Bleed, Heart Murmur, Hiatal Hernia, Hyperlipidemia, Hypertension, Internal Pacemaker, Lung Disease, Migraine, MRSA, Seizures Denies:: Cancer, Diabetes Mellitus Type 1, Diabetes Mellitus Type 2 *Have you ever received a pneumonia vaccine?: Yes *Have you received a flu vaccine this season?: Yes Other Medical History: Reports: Anemia, Arthritis, Fibromyalgia, Other Laterality Cases: Bilateral: Carpal Tunnel Release, Other Other Surgeries: Yes: Appendectomy, Cardiac Catheterization, Cholecystectomy, , Hysterectomy-Total, Pacemaker, Tubal Ligation Amputation: No Fractures: No - *Social History S
== END ==
PROVIDERS: Visit Provider Student in an Organized Health Care Education/Training Program
DX: M51.16 Intervertebral disc disorders with radiculopathy, lumbar region (principal); M46.1 Sacroiliitis, not elsewhere classified; M32.9 Systemic lupus erythematosus, unspecified; M19.90 Unspecified osteoarthritis, unspecified site
CPT/HCPCS: 99212; G0463

== ENCOUNTER → 2022-05-22 08:18 | Outpatient (POV) | payer SELFPAY ==
[2022-05-22 08:30] VITALS: BP 156/82; PULSE 71; RESP 20; O2SAT 100; BMI 41.6
--- NOTE | 2022-05-22 08:45 | HMH.PAINSOAP ---
[facility] Pain Management SOAP Note Subjective:: Patient is a pleasant 52-year-old female who is here for medication refill and follow-up. Patient is currently being treated for chronic low back pain, bilateral sacroiliitis, chronic lupus symptoms, degenerative disc disease of lumbar spine with lumbar radiculopathy symptoms. Patient is being managed with Lyrica 100 mg daily and [place] 10 mg 5 times a day. Patient denies any side effects from the medications. Patient denies any changes to the location and type of pain. Patient states that this is adequately helping manage their pain. Rates pain as 5 out of 10. [facility] number [id number] with an active morphine equivalent 50. 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 She states that her insurance is not going to kick in until the beginning of June, we will get her drug screen then. Review of Systems: General: No recent weight changes, no fever, no sleep disturbances Respiratory: No cough, no shortness of air, no recurring pulmonary infections Cardiovascular/peripheral vascular: No chest pain, no palpitations, no edema, no shortness of breath Gastrointestinal: No new onset incontinence, normal bowel movements reported Genitourinary: No new onset incontinence Musculoskeletal: Low back pain Psychiatric: [Normal mood/affect] Neurological: [Denies weakness in extremities], [denies balance issues] Objective:: Physical Exam: General: Alert and oriented x3, no acute distress, pleasant and cooperative Lungs: Respirations even and unlabored, symmetrical chest expansion Eyes: PERRL Musculoskeletal: Flexion and extension of lumbar [spine] somewhat guarded secondary to pain, [antalgic gait noted] Neurological: Speech clear, no gross sensory deficit Assessment:: Degenerative disc disease of the lumbar spine with lumbar radiculopathy symptoms, chronic low back pain, lupus syndrome Plan:: We will continue the patient's Lyrica 100 mg daily and [place] 10 mg 5 times a day. We will provide the patient with 1 month of refills. We would like to see the patient back in 1 month for follow-up and reevaluation of chronic pain syndrome. Patient has been advised of risks of oversedation with the prescribed medication. Narcan has been offered to the patient in the event of oversedation. Patient has been advised that a family member should also be educated regarding administration of Narcan. Patient has been instructed to contact the clinic with any concerns before the next appointment. Dr. Venegas has reviewed this note and agrees with this plan of care. This note was dictated using voice recognition software and make contain errors or omissions. [facility] History Medical History: Reports:: Asthma, Congestive Heart Failure, Deep Vein Thrombosis, Gastroesophageal Reflux Disease(GERD), Gastrointestinal Bleed, Heart Murmur, Hiatal Hernia, Hyperlipidemia, Hypertension, Internal Pacemaker, Lung Disease, Migraine, MRSA, Seizures Denies:: Cancer, Diabetes Mellitus Type 1, Diabetes Mellitus Type 2 *Have you ever received a pneumonia vaccine?: Yes *Have you received a flu vaccine this season?: Yes Other Medical History: Reports: Anemia, Arthritis, Fibromyalgia, Other Laterality Cases: Bilateral: Carpal Tunnel Release, Other Other Surgeries: Yes: Appendectomy, Cardiac Catheterization, Cholecystectomy, , Hysterectomy-Total, Pacemaker, Tubal Ligation Amputation: No Fractures: No - *Social History Smoking Status: Never smoker Alcohol Intake: never Alcohol Intake Frequency:: other Substance Use Type: denies use *Occupational Status:: unemployed Housing: house Household Members: spouse *Travel in the last 8 weeks: None Family Hx:: No significant family history
== END ==
PROVIDERS: Visit Provider Nurse Practitioner Family
DX: M51.16 Intervertebral disc disorders with radiculopathy, lumbar region (principal); M46.1 Sacroiliitis, not elsewhere classified
CPT/HCPCS: 99212; G0463

== ENCOUNTER → 2022-06-22 08:30 | Outpatient (POV) | payer OTHER, SELFPAY ==
--- NOTE | 2022-06-22 08:52 | A.OFFVIS_ITS ---
[facility] Pain Management SOAP Note Subjective:: Patient is a pleasant 52-year-old female who presents today for follow-up and medication refill. We are currently treating the patient for chronic low back pain, bilateral sacroiliitis, chronic lupus syndromes, degenerative disc disease of lumbar spine with lumbar radiculopathy symptoms. Today the patient rates her pain a 4 out of 10 and states it is all in her low back and bilateral legs. She describes this as a achy sensation that is worse at night. She states she often has trouble sleeping and has to get up and move around due to the pain. Patient denies any new trauma or injury to the site. Patient denies any change to the location or type of pain she experiences. She is currently managed with Lyrica 100 mg daily and [place] 10 mg 5 times a day. Patient denies any side effects from these medications. She states these medications are adequately helping manage her pain. Her Loi is [id number] with a morphine equivalent of 50. It has been reviewed and appropriate. Review of Systems: General: No recent weight changes, no fever, no sleep disturbances Respiratory: No cough, no shortness of air, no recurring pulmonary infections Cardiovascular/peripheral vascular: No chest pain, no palpitations, no edema, no shortness of breath Gastrointestinal: No new onset incontinence, normal bowel movements reported Genitourinary: No new onset incontinence Musculoskeletal: Low back pain, bilateral leg pain Psychiatric: [Normal mood/affect] Neurological: [Denies weakness in extremities], [denies balance issues] Objective:: Physical Exam: General: Alert and oriented x3, no acute distress, pleasant and cooperative Lungs: Respirations even and unlabored, symmetrical chest expansion Eyes: PERRL Musculoskeletal: Flexion and extension of lumbar [spine] somewhat guarded secondary to pain, [antalgic gait noted] Neurological: Speech clear, no gross sensory deficit Assessment:: Degenerative disc disease of lumbar spine with lumbar radiculopathy symptoms, chronic low back pain, bilateral sacroiliitis, chronic lupus syndrome Plan:: Patient continues to have significant pain in her low back that radiates into her bilateral lower extremities. I have discussed with the patient regarding starting her on ropinirole 1 mg with a 14-day supply of this medication. I will also refill the patient's Lyrica 100 mg daily and [place] 10 mg 5 times a day and provide a 1 month supply of this medication. Patient will follow-up in 2 weeks. Patient will return to clinic for reevaluation of symptoms and possible medication refill if indicated. Patient has been advised of risks of oversedation with the prescribed medication. Narcan has been offered to the patient in the event of oversedation. Patient has been advised that a family member should also be educated regarding administration of Narcan. Patient has been instructed to contact the clinic with any concerns before the next appointment. Dr. Venegas has reviewed this note and agrees with this plan of care. This note was dictated using voice recognition software and make contain errors or omissions. [facility] Medical History (Updated 03/29/22 @ 15:25 by Edith Guzman APRN) Dizziness Edema History of DVT (deep vein thrombosis) History of TIA (transient ischemic attack) Social History Smoking Status: Never smoker second hand exposure: No alcohol intake: never substance use type: denies use current occupational status: unemployed Travel in the last 8 weeks: None household members: spouse housing: house caffeine: Yes
[2022-06-22 09:01] VITALS: BP 147/62; PULSE 72; RESP 18; TEMP 37.3; O2SAT 99; BMI 41.6
== END | disposition home or self-care (01) ==
PROVIDERS: Visit Provider Nurse Practitioner Family
DX: M51.16 Intervertebral disc disorders with radiculopathy, lumbar region (principal); M46.1 Sacroiliitis, not elsewhere classified
CPT/HCPCS: 99212; G0463

== ENCOUNTER → 2022-07-17 08:19 | Outpatient (POV) | payer OTHER, SELFPAY ==
[2022-07-17 08:54] VITALS: BP 143/66; PULSE 73; RESP 18; TEMP 36.7; O2SAT 98; BMI 42.5
--- NOTE | 2022-07-17 09:12 | EXP.PAIN.SOA ---
[facility] Pain Management SOAP Note Subjective:: Patient is a pleasant 52-year-old female who presents today for medication refill and follow-up. We are currently treating the patient for degenerative disc disease of lumbar spine with lumbar radiculopathy symptoms, chronic low back pain, bilateral sacroiliitis, chronic lupus syndrome. Today she rates her pain a 7 out of 10. She states it is all in her low back and bilateral legs. Patient denies any new trauma or injury. She states that she overdid it yesterday working and feels like she is pain for today. Patient states she has had better pain coverage with the addition of the ropinirole. She is requesting a refill at today's visit. She is also managed with Lyrica 100 mg daily and [place] 10 mg 5 times a day. Patient denies any side effects from this medications. She states she does take medication on a regular basis for constipation. Patient states these medications do adequately help manage her pain. Patient previously had a spinal cord stimulator around 2015 2016 however due to a MRSA infection it had to be removed. Patient states for the 1 month she did have this that it helped her pain symptoms significantly. She still currently uses a TENS unit as needed. Patient also takes tizanidine at night to help relieve some of her symptoms. Her Loi is [phone]. It has been reviewed and appropriate. Review of Systems: General: No recent weight changes, no fever, no sleep disturbances Respiratory: No cough, no shortness of air, no recurring pulmonary infections Cardiovascular/peripheral vascular: No chest pain, no palpitations, no edema, no shortness of breath Gastrointestinal: No new onset incontinence, normal bowel movements reported Genitourinary: No new onset incontinence Musculoskeletal: Low back pain, bilateral leg pain Psychiatric: [Normal mood/affect] Neurological: [Denies weakness in extremities], [denies balance issues] Objective:: Physical Exam: General: Alert and oriented x3, no acute distress, pleasant and cooperative Lungs: Respirations even and unlabored, symmetrical chest expansion Eyes: PERRL Musculoskeletal: Flexion and extension of lumbar [spine] somewhat guarded secondary to pain, [antalgic gait noted] Neurological: Speech clear, no gross sensory deficit Assessment:: Degenerative disc disease of lumbar spine with lumbar radiculopathy symptoms, chronic low back pain, bilateral sacroiliitis, chronic lupus syndrome Plan:: Patient continues to have significant pain in her low back with radicular symptoms. Patient had limited range of motion of her lumbar spine during today's visit. I will refill the patient's [place] 10 mg 5 times a day and pregabalin 100 mg once a day and provide a 1 month supply of this medication. I will also refill the patient's Requip and provide a 3-month supply of this medication. I have discussed with the patient possible pain pump trial and given educational handouts at today's visit. Risk and benefits have been discussed with the patient. Patient will let me know if she would like to proceed forward with this option in the future. Patient will return to clinic in 1 month for reevaluation of symptoms, medication refill and follow-up. Patient has been advised of risks of oversedation with the prescribed medication. Narcan has been offered to the patient in the event of oversedation. Patient has been advised that a family member should also be educated regarding administration of Narcan. Patient has been instructed to contact the clinic with any concerns before the next appointment. Dr. Venegas has reviewed this note and agrees with this plan of care. This note was dictated using voice recognition software and make contain errors or omissions. [facility] Medical History (Updated 03/29/22 @ 15:25 by Edith Guzman APRN) Dizziness Edema History of DVT (deep vein thrombosis) History of TIA (transient ischemic attack) Social History Smoking Status: Never
== END | disposition home or self-care (01) ==
PROVIDERS: PCP Family Medicine; Visit Provider Nurse Practitioner Family
DX: M51.16 Intervertebral disc disorders with radiculopathy, lumbar region (principal); M46.1 Sacroiliitis, not elsewhere classified; Z79.899 Other long term (current) drug therapy
CPT/HCPCS: 99212; G0463

== ENCOUNTER → 2022-07-18 07:40 | Outpatient (CLI) | payer OTHER, SELFPAY ==
[2022-07-18 10:12] LABS: Amphetamine/Metha Screen,Urine Negative ng/ml (<1000)
[2022-07-18 10:13] LABS: Phencyclidine Screen,Urine Negative ng/ml (<25)
[2022-07-18 10:15] LABS: Benzodiazepines Screen,Urine Negative ng/ml (<200)
[2022-07-18 10:16] LABS: Barbiturates Screen,Urine Negative ng/ml (<200)
[2022-07-18 10:18] LABS: Cannabinoid Screen,Urine Negative ng/ml (<50); Cocaine Screen,Urine Negative ng/ml (<300)
[2022-07-18 10:19] LABS: Methadone Screen,Urine Negative ng/ml (<300)
[2022-07-18 10:20] LABS: Opiate Screen,Urine Positive ng/ml (<300)
[2022-07-27 16:12] LABS: Codeine Negative (Cutoff=100); Hydrocodone Positive (.); Hydromorphone Positive (.); Morphine Comment: (.); Opiates Comment: (.)
[2022-08-10 12:35] LABS: Pregabalin, Urine 149.2
== END ==
PROVIDERS: Nurse Practitioner Family; PCP Family Medicine; Visit Provider Orthopaedic Surgery
DX: Z79.891 Long term (current) use of opiate analgesic (principal)
CPT/HCPCS: 80305; 80361; 80365; G0480

== ENCOUNTER → 2022-08-21 08:21 | Outpatient (POV) | payer OTHER, SELFPAY ==
[2022-08-21 08:42] VITALS: BP 133/69; PULSE 71; RESP 18; O2SAT 97; BMI 41.6
--- NOTE | 2022-08-21 09:13 | EXP.PAIN.SOA ---
[facility] Pain Management SOAP Note Subjective:: Patient is a pleasant 52-year-old female who presents today for follow-up and medication refill. We are currently treating the patient for degenerative disc disease of lumbar spine with lumbar radiculopathy symptoms, chronic low back pain, bilateral sacroiliitis, chronic lupus syndrome. Today the patient rates her pain a 3 out of 10. Patient denies any new trauma or injury. Patient denies any change location or type of pain she experiences. Patient does states that she feels that her neuropathy in her bilateral lower extremities has worsened over time. Patient states the numbness and tingling is frequently from her bilateral knees down to her feet. She states the cold makes it worse and often uses a heating blankets at night to help provide temporary relief. Patient previously had a spinal cord stimulator around however due to a MRSA infection and significant complications with that it had to be removed. Patient states that this was very traumatic and that they had actually discussed even a skin graft. Patient is open to the possibility of future implant such as a patient is a pleasant and or stimulator however she states at that time the neurosurgeon who put the original spinal cord stimulator and stated it would have to be done by neurosurgery due to her complex history. Patient is currently managed with ropinirole and tizanidine. She is also managed with Lyrica 100 mg daily and [place] 10 mg 5 times a day. Patient denies any side effects from this medication. Patient does state that she does take medication on a regular basis to help with any constipation issues she may have. Patient did state that she is having to take her pregabalin occasionally twice a day due to her worsening neuropathy symptoms. She is requesting a refill of this medication along with a increase. Patient does continue to use a TENS unit at home as needed. Her Loi is [id number]. It has been reviewed and appropriate. Review of Systems: General: No recent weight changes, no fever, no sleep disturbances Respiratory: No cough, no shortness of air, no recurring pulmonary infections Cardiovascular/peripheral vascular: No chest pain, no palpitations, no edema, no shortness of breath Gastrointestinal: No new onset incontinence, normal bowel movements reported Genitourinary: No new onset incontinence Musculoskeletal: Low back pain, bilateral leg pain Psychiatric: [Normal mood/affect] Neurological: [Denies weakness in extremities], [denies balance issues] Objective:: Physical Exam: General: Alert and oriented x3, no acute distress, pleasant and cooperative Lungs: Respirations even and unlabored, symmetrical chest expansion Eyes: PERRL Musculoskeletal: Flexion and extension of lumbar [spine] somewhat guarded secondary to pain, [antalgic gait noted] Neurological: Speech clear, no gross sensory deficit Assessment:: Degenerative disc disease of lumbar spine with lumbar radiculopathy symptoms, chronic low back pain, bilateral sacroiliitis, chronic lupus syndrome Plan:: Patient is experiencing worsening pain/numbness in her bilateral lower extremities as well as low back pain. Patient did have limited range of motion of the lumbar spine during today's visit. I have discussed with the patient regarding possible implants such as the pain pump or spinal cord stimulator providing better relief of her symptoms. Risk and benefits were discussed with the patient. We will discuss the possibility of proceeding forward with this plan of care in the future at a later date. I will refill the patient's ropinirole and tizanidine as well as her [place] 10 mg 5 times a day and pregabalin 100 mg twice daily and provide a 1 month supply of this medication. I will also order the patient a compounding cream at today's visit. We will follow-up with the patient in 1 month. Patient return to clinic in 1 month for reevaluation of symptoms, medication refill and
[2022-08-21 14:47] LABS: Basophils # 0.1 K/mm3 (0-0.2); Basophils % 1.3 % (0.1-2.0); Eosinophils # 0.2 K/mm3 (0.0-0.4); Eosinophils % 3.4 % (0.1-12.0); Hematocrit 32.8 % (37.0-47.0); Hemoglobin 10.6 g/dL (12.2-16.2); Lymphocytes # 2.6 K/mm3 (0.7-4.5); Lymphocytes % 37.3 % (10-50); Mean Corpuscular HGB Conc 32.2 g/dL (31.8-35.4); Mean Corpuscular Hemoglobin 26.1 pg (27.0-31.2); Mean Corpuscular Volume 81.2 fl (81-99); Mean Platelet Volume 9.1 fl (7.4-10.4); Monocytes # 0.3 K/mm3 (0.1-1.0); Monocytes % 4.6 % (1.7-9.3); Neutrophils # 3.7 K/mm3 (1.8-7.8); Neutrophils % 53.3 % (37.0-80.0); Platelet Count 368 K/mm3 (142-424); Red Blood Count 4.04 M/mm3 (4.20-5.40); White Blood Count 6.9 K/mm3 (4.8-10.8)
[2022-08-21 15:00] LABS: Chloride 97 mmol/L (98-107)
[2022-08-21 15:01] LABS: Potassium 3.5 mmoL/L (3.5-5.1); Sodium 141 mmol/L (136-145)
[2022-08-21 15:03] LABS: Alanine Aminotransferase 18 U/L (12-78); Alkaline Phosphatase 100 U/L (38-126); Anion Gap 13.5 mEq/L (5-15); Aspartate Amino Transferase 27 U/L (14-36); Blood Urea Nitrogen 9 mg/dl (7-17); Carbon Dioxide 34 mmol/L (22.0-30.0); Creatinine Clearance Estimated 61 mL/min (50-200); Estimated Glomerular Filt Rate 66 ml/min (>60); GFR (African American) 80 ML/MIN (>60)
[2022-08-21 15:04] LABS: Albumin Level 3.7 g/dl (3.5-5.0); Albumin/Globulin Ratio 1.2 (1.1-1.8); Calcium 8.7 mg/dl (8.4-10.2); Chol/HDL Ratio 3.1 (1-3.5); Cholesterol 189 mg/dl (140-200); Glucose 106 mg/dl (74-100); HDL Cholesterol 61 mg/dl (40-60); Iron 34 ug/dL (37-170); Total Protein,Serum 6.7 g/dl (6.3-8.2); Triglycerides 116 mg/dl (30-150); VLDL Cholesterol 23 mg/dL (0-40)
[2022-08-21 15:08] LABS: Bilirubin,Total 0.1 mg/dl (0.2-1.3)
[2022-08-21 15:33] LABS: Direct LDL Cholesterol 101.65 mg/dL (100-129)
[2022-08-21 15:35] LABS: Thyroid Stimulating Hormone 2.52 uIU/mL (0.465-4.68)
[2022-08-21 15:38] LABS: Total Iron Binding Capacity 487 ug/dL (265-497)
== END | disposition home or self-care (01) ==
PROVIDERS: PCP Family Medicine; Visit Provider Nurse Practitioner Family
DX: M51.16 Intervertebral disc disorders with radiculopathy, lumbar region (principal); M46.1 Sacroiliitis, not elsewhere classified; G89.29 Other chronic pain; Z79.899 Other long term (current) drug therapy
CPT/HCPCS: 80053; 80061; 83540; 83550; 84443; 85025; 99212; G0463

== ENCOUNTER → 2022-08-21 14:40 | Outpatient (CLI) | payer OTHER, SELFPAY | PROVIDERS: PCP Family Medicine; Visit Provider Family Medicine | DX: R42 Dizziness and giddiness (principal) ==

== ENCOUNTER 2022-09-18 14:00 | Observation (INO) | payer OTHER, SELFPAY ==
[2022-09-18] VITALS (7 sets, daily range): BP systolic 109–156; BP diastolic 59–93; PULSE 61–80; RESP 16–18; TEMP 36.6–36.8; O2SAT 98–100; BMI 37.2; BMI 40.8
--- NOTE | 2022-09-18 13:58 | ECG_ITS ---
APPROVED REPORT Exam: Resting ECG HR:64 bpm ECG Measurements Heart Rate 64 AXES NE 188 P 54 QRSd 97 QRS 46 QT 417 T 54 QTc 426 Conclusion SINUS RHYTHM LOW QRS VOLTAGE IN PRECORDIAL LEADS [QRS DEFLECTION < 1.0 mV IN CHEST LEADS] BORDERLINE ECG UNCONFIRMED REPORT Electronically signed by : Genaro Lucia MD 09/18/2022 19:57:10
--- NOTE | 2022-09-18 14:01 | PC.NURSE ---
DR. MORALES AT BEDSIDE
--- NOTE | 2022-09-18 14:04 | PC.NURSE ---
RADIOLOGY NOTIFIED OF STROKE ALERT FOR CT SCAN
--- NOTE | 2022-09-18 14:04 | CT_ITS ---
FINAL REPORT CLINICAL HISTORY: stroke alert-- stroke protocol - off balance and wobbly when walks COMPARISON: June 2021 FINDINGS: Axial images of the head were obtained without contrast. Coronal reformatted images were also obtained.This study was performed with techniques to keep radiation doses as low as reasonably achievable (ALARA). Individualized dose reduction techniques using automated exposure control or adjustment of mA and/or kV according to the patient''s size were employed. There is no evidence of intracranial hemorrhage or mass. The ventricular size is within normal limits. There is no evidence of shift of the midline structures. No abnormal extra axial fluid collection is identified. No skull abnormality is seen on the bone window images. IMPRESSION: No acute intracranial abnormality. Reviewed, Interpreted and Dictated by Mundo Horowitz III, MD Transcribed by Ron Coats Authenticated and [facility]
--- NOTE | 2022-09-18 14:05 | PC.NURSE ---
FSBS 80
--- NOTE | 2022-09-18 14:05 | PC.NURSE ---
fsbs 80
--- NOTE | 2022-09-18 14:06 | PC.NURSE ---
PT TO CT AT THIS TIME
[2022-09-18 14:14] LABS: Basophils # 0.1 K/mm3 (0-0.2); Basophils % 1.3 % (0.1-2.0); Eosinophils # 0.2 K/mm3 (0.0-0.4); Eosinophils % 2.3 % (0.1-12.0); Hematocrit 38.6 % (37.0-47.0); Hemoglobin 12.4 g/dL (12.2-16.2); Lymphocytes % 31.2 % (10-50); Mean Corpuscular HGB Conc 32.1 g/dL (31.8-35.4); Mean Corpuscular Hemoglobin 26.2 pg (27.0-31.2); Mean Corpuscular Volume 81.7 fl (81-99); Mean Platelet Volume 8.6 fl (7.4-10.4); Monocytes # 0.4 K/mm3 (0.1-1.0); Monocytes % 3.7 % (1.7-9.3); Neutrophils # 5.8 K/mm3 (1.8-7.8); Neutrophils % 61.5 % (37.0-80.0); Platelet Count 456 K/mm3 (142-424); Red Blood Count 4.72 M/mm3 (4.20-5.40); Red Cell Distribution Width 14.9 % (11.5-17.5); White Blood Count 9.5 K/mm3 (4.8-10.8)
[2022-09-18 14:23] LABS: Chloride 98 mmol/L (98-107); Potassium 3.2 mmoL/L (3.5-5.1); Sodium 134 mmol/L (136-145)
[2022-09-18 14:25] LABS: Blood Urea Nitrogen 12 mg/dl (7-17); Creatinine Clearance Estimated 125 mL/min (50-200); Estimated Glomerular Filt Rate 76 ml/min (>60); GFR (African American) 92 ML/MIN (>60)
[2022-09-18 14:26] LABS: Alanine Aminotransferase 26 U/L (12-78); Albumin Level 4.5 g/dl (3.5-5.0); Albumin/Globulin Ratio 1.3 (1.1-1.8); Alkaline Phosphatase 99 U/L (38-126); Anion Gap 8.2 mEq/L (5-15); Aspartate Amino Transferase 29 U/L (14-36); Calcium 9.5 mg/dl (8.4-10.2); Carbon Dioxide 31 mmol/L (22.0-30.0); Globulin 3.5 g/dL (1.3-3.2); Glucose 98 mg/dl (74-100)
[2022-09-18 14:27] LABS: Bilirubin,Total < 0.1 mg/dl (0.2-1.3)
--- NOTE | 2022-09-18 14:39 | CT_ITS ---
FINAL REPORT TECHNIQUE: Multiple axial CT angiography images were performed from the foramen magnum to the vertex before and during IV contrast administration. This study was performed with techniques to keep radiation doses as low as reasonably achievable (ALARA). Individualized dose reduction techniques using automated exposure control or adjustment of mA and/or kV according to the patient's size were employed. CLINICAL HISTORY: facial droop FINDINGS: No acute intracranial hemorrhage or large acute cortical infarct. The brain volume is normal for the patient's age. Ventricles are of bracket normal in size and configuration. No midline shift. The basal cisterns are patent. CTA HEAD: The major intracranial arterial system is patent without hemodynamically significant stenosis or major vessel occlusion.No aneurysm is identified. IMPRESSION: No acute intracranial hemorrhage or large acute cortical infarct. No evidence of vascular injury, aneurysm, hemodynamically significant stenosis or major vessel occlusion of the intracranial arterial system. Reviewed, Interpreted and Dictated by Mundo Horowitz III, MD Transcribed by Ron Coats Authenticated and [facility]
--- NOTE | 2022-09-18 14:39 | CT_ITS ---
FINAL REPORT CLINICAL HISTORY: facial droop FINDINGS: Thin section axial CT with IV contrast supplemented with multiplanar reconstruction under CT angiogram protocol. This study was performed with techniques to keep radiation doses as low as reasonably achievable (ALARA). Individualized dose reduction techniques using automated exposure control or adjustment of mA and/or kV according to the patient''s size were employed. NASCET criteria was utilized during interpretation. Aortic arch: Arch shows no significant narrowing. Great vessel origins are widely patent. Right carotid: No significant stenosis is seen of the cervical common or internal carotid artery. Left carotid: No significant stenosis is seen of the cervical common or internal carotid artery. Vertebral: Right vertebral artery is dominant. No significant stenosis is present. IMPRESSION: No significant stenosis. Reviewed, Interpreted and Dictated by Mundo Horowitz III, MD Transcribed by Ron Coats Authenticated and [facility]
[2022-09-18 14:43] LABS: Troponin I < 0.01 ng/ml (0.00-0.034)
--- NOTE | 2022-09-18 14:45 | PC.NURSE ---
PT TO CT AT THIS TIME
--- NOTE | 2022-09-18 15:07 | PC.NURSE ---
PT REQUESTING SOMETHING FOR HEADACHE, NOTIFIED
--- NOTE | 2022-09-18 15:12 | HMH.EDGENADL ---
Discharge Plan Disposition Patient Disposition: Admitted As Inpatient Clinical Impressions Clinical Impression: Acute CVA (cerebrovascular accident) Discharge ED Provider: Denisa Daniels Adult HPI General Chief complaint: Weakness Stated complaint: STROKE LIKE SYMPTOMS Time Seen by Provider: 09/18/22 14:00 Mode of Arrival: Ambulatory Limitations: No Limitations Description of Symptoms (Recalled from ER Triage Doc. by RN): PT REPORTS STROKE LIKE SYMPTOMS ABOUT 1300 NOTED TO HAVE LEFT SIDED FACIAL NUMBNESS, SLURRED SPEECH WHICH SHE SAYS HAS RESOLVED AND STATES SHE CANT THINK STRAIGHT History of Present Illness HPI narrative: Mrs. Claudio is a 52-year-old female with past medical history for TIAs, HTN, lupus, DVTs on Xarelto presenting to the emergency department with left-sided facial numbness and slurred speech. Last known normal 1:05 PM. On arrival symptoms have improved patient reports she now only feels numb along her mouth. Speech has resolved. NIH scale on arrival 1. Patient denies any headache. No cough, fevers or other infectious symptoms. Denies any other focal neurological deficits. Reports being compliant on her blood thinner. MD complaint: Left facial numbness and slurred speech Onset (ago): hour(s) Location: face Related Data Home Medications Medication Instructions Recorded Confirmed tizanidine 4 mg tablet 4 mg PO TID muscle spasms 08/21/22 09/19/22 baclofen 10 mg tablet 5 mg PO TIDP PRN muscle spasms 09/19/22 09/19/22 carvedilol 6.25 mg tablet 6.25 mg PO BID High blood pressure 09/19/22 09/19/22 estradiol 1 mg tablet 1 mg PO DAILY hormone replacement 09/19/22 09/19/22 therapy losartan 50 mg tablet 50 mg PO BID High blood pressure 09/19/22 09/19/22 pregabalin 100 mg capsule 100 mg PO BID neuropathic pain 09/19/22 09/19/22 rivaroxaban 20 mg tablet 20 mg PO DAILY Blood thinner/HX of 09/19/22 09/19/22 DVT spironolactone 50 mg tablet 50 mg PO DAILY High blood pressure 09/19/22 09/19/22 Previous Rx's Medication Instructions Recorded albuterol sulfate 90 mcg/actuation See Rx Instructions .Route 06/16/22 aerosol inhaler .COMPLEX Asthma #8.5 grams duloxetine 60 mg capsule,delayed 60 mg PO HS dorsalgias #90 caps 10/24/22 release (Cymbalta) esomeprazole magnesium 40 mg 40 mg PO BID GERD #180 caps 08/07/22 capsule,delayed release hydroxychloroquine 200 mg tablet 200 mg PO BID LUPUS #180 tabs 08/14/22 torsemide 20 mg tablet 20 mg PO BID PRN edema #180 tabs 08/14/22 hydrocodone 10 mg-acetaminophen 1 tab PO 5XDAY Pain #150 tabs 08/21/22 325 mg tablet ropinirole 1 mg tablet 1 mg PO HS LEGS #90 tabs 08/21/22 Allergies Allergy/AdvReac Type Severity Reaction Status Date / Time gum mastic Allergy Unknown Verified 08/21/22 10:20 [From MASTISOL ADHESIVE] measles, mumps, and rubella Allergy Unknown Verified 08/21/22 10:20 vaccine [MEASLES, MUMPS, AND RUBELLA VACCINE] methyl salicylate Allergy Unknown Verified 08/21/22 10:20 [From MASTISOL ADHESIVE] Penicillins [PENICILLINS] Allergy Unknown Verified 08/21/22 10:20 storax Allergy Unknown Verified 08/21/22 10:20 [From MASTISOL ADHESIVE] Sulfa (Sulfonamide Allergy Unknown Verified 08/21/22 10:20 Antibiotics) [SULFA (SULFONAMIDE ANTIBIOTICS)] sumatriptan [From IMITREX] Allergy Unknown Verified 08/21/22 10:20 adhesive AdvReac Mild Rash Verified 08/21/22 10:20 [facility] Disclaimer: The information contained in this section may have been updated after the patient was seen, as this information can be updated by other users. Medical History Asthma Dizziness Edema History of DVT (deep vein thrombosis) History of gastroesophageal reflux (GERD) History of TIA (transient ischemic attack) Hypertension Surgical History History of appendectomy History of section History of cholecystectomy
--- NOTE | 2022-09-18 15:34 | PC.NURSE ---
Contacting [facility] regarding possible transfer
--- NOTE | 2022-09-18 15:41 | PC.NURSE ---
ECHO AT BEDSIDE
--- NOTE | 2022-09-18 16:00 | EXP.HP ---
History of Present Illness *Admission Date: 09/18/22 *Reason for visit:: Left-sided facial weakness *History of present illness: Ms. Claudio is a pleasant 52-year-old female with history of antiphospholipid syndrome who presented with onset of left-sided facial weakness and confusion/not being able to think straight that began at approximately 1 PM this afternoon. On arrival to the ER she had persistent left facial weakness and droop. Imaging negative for arterial occlusion or acute stroke on head CT. Consults made to [facility] and , not meeting criteria for transfer or tPA. Patient is on Xarelto and aspirin at baseline, has had previous episodes before. Given TIA/CVA symptoms, medicine consulted for admission and observation. She denies chest pain, shortness of breath, nausea, vomiting, changes in vision. By the time of my evaluation in the ER after decision to admit, patient's deficits more or less resolved. No appreciable left-sided weakness or droop. Speech back to normal. Alert and oriented x3. at bedside states he sees significant improvement as well. Agree with admission overnight for observation, medication adjustment, and speech/PT/OT eval. [facility] Disclaimer: The information contained in this section may have been updated after the patient was seen, as this information can be updated by other users. Medical History Asthma Dizziness Edema History of DVT (deep vein thrombosis) History of gastroesophageal reflux (GERD) History of TIA (transient ischemic attack) Hypertension Surgical History History of appendectomy History of section History of cholecystectomy History of hysterectomy Family History No significant family history Social History Smoking Status: Never smoker second hand exposure: No alcohol intake: never substance use type: denies use current occupational status: employed Travel in the last 8 weeks: None household members: spouse housing: house caffeine: Yes Review of Systems Review of Systems Review of systems (narrative): 14 point review of systems performed, pertinent positives and negatives as per HPI Meds Home Medications and Allergies Home Medications Medication Instructions Recorded Confirmed Type albuterol sulfate 90 mcg/actuation See Rx Instructions .Route 06/16/22 09/18/22 Rx aerosol inhaler .COMPLEX Asthma #8.5 grams carvedilol 6.25 mg tablet See Rx Instructions .Route 08/07/22 09/18/22 Rx .COMPLEX High blood pressure #180 tabs duloxetine 60 mg capsule,delayed 60 mg PO HS dorsalgias #90 caps 08/07/22 09/18/22 Rx release (Cymbalta) esomeprazole magnesium 40 mg 40 mg PO BID GERD #180 caps 08/07/22 09/18/22 Rx capsule,delayed release losartan 50 mg tablet See Rx Instructions .Route 08/07/22 09/18/22 Rx .COMPLEX High blood pressure #180 tabs rivaroxaban 20 mg tablet See Rx Instructions .Route 08/07/22 09/18/22 Rx .COMPLEX Blood thinner #90 tabs spironolactone 50 mg tablet See Rx Instructions .Route 08/07/22 09/18/22 Rx .COMPLEX High blood pressure #90 tabs estradiol 1 mg tablet See Rx Instructions .Route 08/14/22 09/18/22 Rx .COMPLEX Supplement #90 tabs hydroxychloroquine 200 mg tablet 200 mg PO BID LUPUS #180 tabs 08/14/22 09/18/22 Rx torsemide 20 mg tablet 20 mg PO BID PRN edema #180 tabs 08/14/22 09/18/22 Rx hydrocodone 10 mg-acetaminophen 1 tab PO 5XDAY Pain #150 tabs 08/21/22 09/18/22 Rx 325 mg tablet pregabalin 100 mg capsule 100 mg PO BID . #60 caps 08/21/22 09/18/22 Rx ropinirole 1 mg tablet 1 mg PO HS LEGS #90 tabs 08/21/22 09/18/22 Rx tizanidine 4 mg tablet See Rx Instructions .Route 08/21/22 09/18/22 History .COMPLEX MUSCLES New Prescriptions to Start Prescriptions: Allerg
[2022-09-18 16:19] LABS: INR 1.18 (0.9-1.1); Prothrombin Time 12.6 seconds (10.1-12.5)
--- NOTE | 2022-09-18 16:22 | PC.NURSE ---
DR. CABRERA AT BEDSIDE
--- NOTE | 2022-09-18 16:22 | PC.NURSE ---
SPEECH THERAPY AT BEDSIDE
--- NOTE | 2022-09-18 16:23 | PC.NURSE ---
Dr. Crowley at along with the speech therapist
[2022-09-18 16:52] LABS: Hemoglobin A1C 5.8 % (4.0-6.0)
--- NOTE | 2022-09-18 16:55 | HMH.SLDYSPHA ---
Speech & Language Evaluation Speech/Language Dysphagia Evaluation Start: 09/18/22 16:45 Freq: Status: Active Protocol: Document 09/18/22 16:46 SYTHOMAS (Rec: 09/18/22 16:55 CWTHOMAS [id number]) Dysphagia Assess/Goals/Plan Assessment Date of Evaluation: 09/18/22 Evaluation Type Initial Certification Assessment/Problems TIA per MD order Does Patient Qualify for Service No Qualify/Failure Comment Given the results of the clinical swallow evaluation, pt does not require further skilled speech therapy services at this time. Recommendations PHYSICIAN CERTIFICATION: The specified therapy services are required, authorized, and reviewed every 30 days. Diet Recommendations Normal Liquid Type Recommendations Normal/Thin SL Swallow Guidelines Standard Aspiration Prec. Dysphagia Swallow Precautions/Strategies Sitting Upright (90 deg),Small Bites and Sips,Alternate Liquids/Solids Place Food on Either side of Mouth Plan Pt/Guardian verbally ack understanding Yes of dx/prognosis/goals Pt/Guardian verbally ack understanding Yes of/consent to tx prog G -code Required No Education Instructions provided CSE results and recommendations discussed with pt, family, and MD who expressed understanding. Pt/Caregiver able to recall information Able to recall/restate Speech & Language HPI History Present Illness Description of Patient Problem Ms. Claudio is a 52 y.o. female presenting to [facility] ED for stroke-like symptoms. Pt reports she was off-balance with slurred speech and L facial numbness. She reports it is resolving at this time. Head CT is showing no acute infarcts. PMH is significant for antiphospholipid syndrome, DVT, and previous TIA. She reports no difficulty swallowng. Rehab Services Assessed Speech therapy General Information General Current Food Consistancy NPO Dentition Good Dentition Oxygen Status Room Air Facial Symmetry Symmetrical Patient Orientation Person,Place,Time,Situation Ability to Follow Directions Excellent Communication Ability No Impairment Dysphagia:Food Presentation Evaluation Food Type
--- NOTE | 2022-09-18 16:59 | PC.NURSE ---
HOUSE NOTIFIED FOR ADMISSION
[2022-09-18 17:13] LABS: Coronavirus 19, PCR Not Detected (NotDetected); Influenza A, PCR Not Detected (NotDetected); Influenza B, PCR Not Detected (NotDetected)
--- NOTE | 2022-09-18 18:17 | PC.NURSE ---
REPORT GIVEN TO Pablo SONG RN
--- NOTE | 2022-09-18 18:32 | PC.NURSE ---
Patient to floor via wc with ROLANDO Calix
--- NOTE | 2022-09-18 18:34 | PC.NURSE ---
Pt arrived to the floor at this time
[2022-09-19] VITALS: BP 129/66; PULSE 64; RESP 18; TEMP 36.7; O2SAT 98
[2022-09-19 04:00] VITALS: BP 115/56; PULSE 64; RESP 16; TEMP 36.5; O2SAT 95
[2022-09-19 05:02] VITALS: BMI 40.8
--- NOTE | 2022-09-19 06:32 | PC.NURSE ---
Pt slept well during the night. Medicated per DEC for back pain. Pt states she is feeling fine and back to my baseline .
[2022-09-19 07:12] LABS: Chloride 101 mmol/L (98-107)
[2022-09-19 07:13] LABS: Basophils # 0.1 K/mm3 (0-0.2); Eosinophils # 0.2 K/mm3 (0.0-0.4); Lymphocytes # 2.8 K/mm3 (0.7-4.5); Monocytes # 0.3 K/mm3 (0.1-1.0); Monocytes % 4.3 % (1.7-9.3); Sodium 134 mmol/L (136-145)
[2022-09-19 07:15] LABS: Alanine Aminotransferase 21 U/L (12-78); Alkaline Phosphatase 85 U/L (38-126); Aspartate Amino Transferase 22 U/L (14-36); Blood Urea Nitrogen 12 mg/dl (7-17); Carbon Dioxide 31 mmol/L (22.0-30.0); Creatinine Clearance Estimated 88 mL/min (50-200); Estimated Glomerular Filt Rate 105 ml/min (>60); GFR (African American) 128 ML/MIN (>60)
[2022-09-19 07:16] LABS: Albumin Level 3.7 g/dl (3.5-5.0); Albumin/Globulin Ratio 1.2 (1.1-1.8); Calcium 8.9 mg/dl (8.4-10.2); Glucose 92 mg/dl (74-100); Magnesium 2.1 mg/dl (1.6-2.3); Total Protein,Serum 6.7 g/dl (6.3-8.2)
[2022-09-19 07:17] LABS: Bilirubin,Total 0.1 mg/dl (0.2-1.3)
--- NOTE | 2022-09-19 07:18 | PC.NURSE ---
Critical K+ reports to Jayne
[2022-09-19 07:27] LABS: Basophils % 1.5 % (0.1-2.0); Eosinophils % 3.1 % (0.1-12.0); Hematocrit 34.4 % (37.0-47.0); Lymphocytes % 42.5 % (10-50); Mean Corpuscular HGB Conc 31.9 g/dL (31.8-35.4); Mean Corpuscular Hemoglobin 26.1 pg (27.0-31.2); Mean Corpuscular Volume 81.9 fl (81-99); Mean Platelet Volume 8.8 fl (7.4-10.4); Neutrophils # 3.2 K/mm3 (1.8-7.8); Neutrophils % 48.6 % (37.0-80.0); Platelet Count 378 K/mm3 (142-424); Red Blood Count 4.19 M/mm3 (4.20-5.40); Red Cell Distribution Width 14.8 % (11.5-17.5); White Blood Count 6.5 K/mm3 (4.8-10.8)
[2022-09-19 08:00] VITALS: BP 141/80; PULSE 68; RESP 16; TEMP 36.9; O2SAT 100
[2022-09-19 08:19] LABS: Hemoglobin 10.9 g/dL (12.2-16.2)
--- NOTE | 2022-09-19 09:12 | HMH.PTEV ---
Physical Therapy Evaluation Rehab PT IP Evaluation Start: 09/18/22 14:05 Freq: ONCE Status: Active Protocol: Document 09/19/22 09:09 ОЛЬГА (Rec: 09/19/22 09:12 PHOELEAZAR [id number]) Subjective/History History History 52 yowf adm to [facility] with TIA, symptoms all now resolved. She reports hx of TIA in the past . She reports she lives with spouse, 6 steps to enter the home and she is generally independent with all mobility. Subjective Subjective No c/o this am. Rehab PT IP Eval Objective Appearance Patient Behavior Appropriate Patient Orientation Person,Place,Time Difficulty following instructions none Speech Pattern Clear Ambulation Patient Able to Ambulate Yes Ambulation Observation IP General Gait Pattern Observation No Deviations/Normal Ambulation Distance (feet) 100 Ambulation Assistive Device None Ambulation Ability Independent Balance Ability to Arise Able, w/o using arms Sitting Balance Steady, safe Standing Balance Narrow stance w/o support Dynamic Sitting Balance Ability Normal Dynamic Standing Balance Ability Normal Transfers Bed Transfer Ability Independent Chair Transfer Ability Independent Sit to Stand Bed Transfer Ability Independent Sit to Stand Chair Transfer Ability Independent ROM All Extremities PT ROM Status WFL MMT All Extremities PT MMT WFL Rehab PT IP prob,goals,plan Problems Date of Evaluation: 09/19/22 Discharge Plan PT Discharge Plan Pt is presently at baseline for all mobility, no current inpatient therapy needs. She is appropriate to return home once medically stable. G -code Required No Eval Complexity Eval Charge Codes 14977 - Moderate Complexity PHYSICIAN CERTIFICATION: I certify the specified therapy services for Kassi Claudio are required, authorized, and reviewed every 30 days.
--- NOTE | 2022-09-19 12:59 | EXP.DC.SUM ---
General Admission date:: 09/18/22 HPI HPI HPI: Ms. Claudio is a pleasant 52-year-old female with history of antiphospholipid syndrome who presented with onset of left-sided facial weakness and confusion/not being able to think straight that began at approximately 1 PM this afternoon. On arrival to the ER she had persistent left facial weakness and droop. Imaging negative for arterial occlusion or acute stroke on head CT. Consults made to [facility] and , not meeting criteria for transfer or tPA. Patient is on Xarelto and aspirin at baseline, has had previous episodes before. Given TIA/CVA symptoms, medicine consulted for admission and observation. She denies chest pain, shortness of breath, nausea, vomiting, changes in vision. By the time of my evaluation in the ER after decision to admit, patient's deficits more or less resolved. No appreciable left-sided weakness or droop. Speech back to normal. Alert and oriented x3. at bedside states he sees significant improvement as well. Agree with admission overnight for observation, medication adjustment, and speech/PT/OT eval. Hospital Course Hospital Course Hospital Course: Patient was admitted for observation of TIA in the setting of antiphospholipid syndrome. Symptoms have resolved on admission and CT imaging for stroke was negative. PT OT speech eval performed. Patient was started on dual antiplatelet with aspirin and Plavix discussed findings and necessity for follow-up with press cutter for antiphospholipid syndrome. TTE pending. At this point given her new TIA on Xarelto I discussed the potential for this being a Xarelto failure. Discussed she may require Coumadin for her antiphospholipid syndrome. Patient will follow up and discuss with her press cutter. Would also consider termination of her hormone therapy given recurrent thrombosis. Exam Data for Last 24 hours Vital signs and Labs for Last 24 Hours: Temp Pulse Resp BP Pulse Ox 98.5 F 68 16 141/80 H 100 09/19/22 08:00 09/19/22 08:00 09/19/22 08:00 09/19/22 08:00 09/19/22 08:00 Laboratory Results - last 24 hr 09/18/22 14:00: WBC 9.5, RBC 4.72, Hgb 12.4, Hct 38.6, MCV 81.7, MCH 26.2 L, MCHC 32.1, RDW 14.9, Plt Count 456 H, MPV 8.6, Neut % (Auto) 61.5, Lymph % (Auto) 31.2, [place] % (Auto) 3.7, Eos % (Auto) 2.3, Baso % (Auto) 1.3, Neut # (Auto) 5.8, Lymph # (Auto) 3.0, [place] # (Auto) 0.4, Eos # (Auto) 0.2, Baso # (Auto) 0.1 09/18/22 14:00: Sodium 134 L, Potassium 3.2 L, Chloride 98, Carbon Dioxide 31 H, Anion Gap 8.2, BUN 12, Creatinine 0.80, Estimated Creat Clear 125, Estimated GFR 76, Est GFR ( Amer) 92, Glucose 98, Calcium 9.5, Total Bilirubin < 0.1 L, AST 29, ALT 26, Alkaline Phosphatase 99, Troponin I < 0.01, Total Protein 8.0, Albumin 4.5, Globulin 3.5 H, Albumin/Globulin Ratio 1.3 09/18/22 14:00: Hemoglobin A1c 5.8 09/18/22 14:00: PT 12.6 H, INR 1.18 H 09/18/22 16:55: SARS-CoV-2 (PCR) Not detected, Influenza A Untype (PCR) Not detected, Influenza Type B (PCR) Not detected 09/19/22 06:45: WBC 6.5 D, RBC 4.19 L, Hgb 10.9 L D, Hct 34.4 L, MCV 81.9, MCH 26.1 L, MCHC 31.9, RDW 14.8, Plt Count 378, MPV 8.8, Neut % (Auto) 48.6, Lymph % (Auto) 42.5, [place] % (Auto) 4.3, Eos % (Auto) 3.1, Baso % (Auto) 1.5, Neut # (Auto) 3.2, Lymph # (Auto) 2.8, [place] # (Auto) 0.3, Eos # (Auto) 0.2, Baso # (Auto) 0.1 09/19/22 06:45: Sodium 134 L, Potassium 3.0 L, Chloride 101, Carbon Dioxide 31 H, Anion Gap 5.0, BUN 12, Creatinine 0.60 D, Estimated Creat Clear 88, Estimated GFR 105, Est GFR ( Amer) 128 D, Glucose 92, Calcium 8.9, Magnesium 2.1, Total Bilirubin 0.1 L, AST 22, ALT 21, Alkaline Phosphatase 85, Total Protein 6.7, Albumin 3.7 D, Globulin 3.0, Albumin/Globulin Ratio 1.2 I & O for Last 24 hours: Intake & Output 09/16/22 09/17/22 09/18/22 09/19/22 23:59 23:59 23:59 23:59 Intake Total 480 / 480 Balance 480 / 480 Weight 104.553 kg 104.553 kg Constitutional Constitutional: no acute distr
== END 2022-09-19 14:28 | disposition home or self-care (01) ==
LOC: ER 14:34 → 2ND 18:30
PROVIDERS: Admitting Provider Internal Medicine Adolescent Medicine; Emergency Provider Student in an Organized Health Care Education/Training Program; PCP Family Medicine; Visit Provider Student in an Organized Health Care Education/Training Program
DX: I63.9 Cerebral infarction, unspecified (principal); Z86.73 Personal history of transient ischemic attack (TIA), and cerebral infarction without residual deficits; E87.6 Hypokalemia; I10 Essential (primary) hypertension; Z68.41 Body mass index [BMI] 40.0-44.9, adult; Z79.01 Long term (current) use of anticoagulants; Z79.899 Other long term (current) drug therapy; D68.61 Antiphospholipid syndrome; E66.01 Morbid (severe) obesity due to excess calories
CPT/HCPCS: 70450; 70496; 70498; 80053; 83036; 83735; 84484; 85025; 85610; 93005; 93306; 97162; 99285; C9803; G0378; Q9967; U0003; U0005

== ENCOUNTER → 2022-09-26 08:23 | Outpatient (POV) | payer OTHER, SELFPAY ==
[2022-09-26 08:32] VITALS: BMI 40.1
--- NOTE | 2022-09-26 08:47 | EXP.PAIN.SOA ---
[facility] Pain Management SOAP Note Subjective:: Patient is a pleasant 52-year-old female who presents today for follow-up of medication refill. We are currently treating the patient for degenerative disc disease of lumbar spine with lumbar radiculopathy symptoms, chronic low back pain, bilateral sacroiliitis, chronic lupus syndrome. Today she rates her pain a 3 out of 10. Patient states the pain is all in her low back with radiating symptoms into her legs. Patient states that last week she was hospitalized for a TIA. Patient states that she has no residual effects from this event and states that they believe that she just threw clot. Patient does have a history of a clotting disorder and is on blood thinner. Patient states they did add Plavix onto her daily regimen. 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 Patient is currently managed with ropinirole 1 mg at bedtime and baclofen 5 mg 3 times daily as well as Lyrica 100 mg BID and [place] 10 mg 5 times a day. Patient denies any side effects from these medications. Patient does state that occasionally she does have constipation issues however she uses [id number] medication to help with this. Patient does state that these medications help her pain symptoms. She is requesting refills at today's visit. Patient does continue to use a heating pad and TENS unit at home. Her Loi is [phone]. It has been reviewed and appropriate. Review of Systems: General: No recent weight changes, no fever, no sleep disturbances Respiratory: No cough, no shortness of air, no recurring pulmonary infections Cardiovascular/peripheral vascular: No chest pain, no palpitations, no edema, no shortness of breath Gastrointestinal: No new onset incontinence, normal bowel movements reported Genitourinary: No new onset incontinence Musculoskeletal: Low back pain Psychiatric: [Normal mood/affect] Neurological: [Denies weakness in extremities], [denies balance issues] Objective:: Physical Exam: General: Alert and oriented x3, no acute distress, pleasant and cooperative Lungs: Respirations even and unlabored, symmetrical chest expansion Eyes: PERRL Musculoskeletal: Flexion and extension of lumbar [spine] somewhat guarded secondary to pain, [antalgic gait noted] Neurological: Speech clear, no gross sensory deficit Assessment:: Degenerative disc disease of lumbar spine with lumbar radiculopathy symptoms, chronic low back pain, bilateral sacroiliitis, chronic lupus syndrome Plan:: Patient continues to experience significant pain in her low back with radiating symptoms into her legs. I will refill the patient's ropinirole 1 mg at bedtime, baclofen 5 mg 3 times daily, 3 Lyrica 100 mg twice daily, and [place] 10 mg 5 times a day and provide a 1 month supply of these medications. Patient will return to clinic in 1 month for reevaluation, medication refill and follow-up. Patient has been advised of risks of oversedation with the prescribed medication. Narcan has been offered to the patient in the event of oversedation. Patient has been advised that a family member should also be educated regarding administration of Narcan. Patient has been instructed to contact the clinic with any concerns before the next appointment. Dr. Venegas has reviewed this note and agrees with this plan of care. This note was dictated using voice recognition software and make contain errors or omissions. [facility] Disclaimer: The information contained in this section may have been updated after the patient was seen, as this information can be updated by other users. Medical History Asthma Dizziness Edema History of DVT (deep vein thrombosis) History of gastroesophageal reflux (GERD) History of TIA (transient ischemic attack) Hypertension Surgical History H
== END | disposition home or self-care (01) ==
PROVIDERS: PCP Family Medicine; Visit Provider Nurse Practitioner Family
DX: M51.16 Intervertebral disc disorders with radiculopathy, lumbar region (principal); M46.1 Sacroiliitis, not elsewhere classified; G89.29 Other chronic pain
CPT/HCPCS: 99212; G0463

== ENCOUNTER 2022-09-29 07:43 | Outpatient (CLI) | payer OTHER, SELFPAY ==
[2022-09-29 08:54] LABS: INR 2.76 (0.9-1.1); Prothrombin Time 28.1 seconds (10.1-12.5)
[2022-09-29 09:49] LABS: PHA INR Fingerstick 2.8 (0.9-1.1)
== END 2022-09-29 09:50 ==
LOC: ACC 07:44
PROVIDERS: PCP Family Medicine; Visit Provider Family Medicine
DX: Z51.81 Encounter for therapeutic drug level monitoring (principal); Z79.01 Long term (current) use of anticoagulants; G45.8 Other transient cerebral ischemic attacks and related syndromes
CPT/HCPCS: 36415; 85610; G0463

== ENCOUNTER 2022-10-04 08:03 | Outpatient (CLI) | payer OTHER, SELFPAY ==
[2022-10-04 09:46] LABS: Prothrombin Time 83.2 seconds (10.1-12.5)
== END 2022-10-04 16:20 ==
LOC: ACC 08:04
PROVIDERS: PCP Family Medicine; Visit Provider Orthopaedic Surgery
DX: Z51.81 Encounter for therapeutic drug level monitoring (principal); Z79.01 Long term (current) use of anticoagulants; G45.9 Transient cerebral ischemic attack, unspecified
CPT/HCPCS: 36415; 85610; 99211; G0463

== ENCOUNTER 2022-10-09 10:21 | Outpatient (CLI) | payer OTHER, SELFPAY ==
[2022-10-09 10:49] LABS: PHA INR Fingerstick 3.4 (0.9-1.1)
== END 2022-10-09 10:51 ==
LOC: ACC 10:22
PROVIDERS: PCP Family Medicine; Visit Provider Family Medicine
DX: Z51.81 Encounter for therapeutic drug level monitoring (principal); Z79.01 Long term (current) use of anticoagulants; G45.9 Transient cerebral ischemic attack, unspecified
CPT/HCPCS: 85610; 99211; G0463

== ENCOUNTER 2022-10-13 07:52 | Outpatient (CLI) | payer OTHER, SELFPAY ==
[2022-10-13 08:52] LABS: INR 4.07 (0.9-1.1); Prothrombin Time 40.6 seconds (10.1-12.5)
[2022-10-13 16:06] LABS: PHA INR Fingerstick 4.2 (0.9-1.1)
== END 2022-10-13 16:34 ==
PROVIDERS: PCP Family Medicine; Visit Provider Family Medicine
DX: Z51.81 Encounter for therapeutic drug level monitoring (principal); Z79.01 Long term (current) use of anticoagulants; G45.9 Transient cerebral ischemic attack, unspecified
CPT/HCPCS: 36415; 85610; 99211; G0463

== ENCOUNTER → 2022-10-16 12:35 | Outpatient (CLI) | payer OTHER, SELFPAY ==
--- NOTE | 2022-10-16 12:41 | XR_ITS ---
FINAL REPORT CLINICAL HISTORY: cough COMPARISON: 03/20/2022 FINDINGS: Two views of the chest show lungs to be clear. Pulmonary vascularity is normal. Heart and mediastinum are unremarkable. No pleural effusion is present. IMPRESSION: No active disease. Reviewed, Interpreted and Dictated by Mina Wright MD Transcribed by Jenna Hammonds Authenticated and [facility]
== END ==
PROVIDERS: PCP Family Medicine; Visit Provider Family Medicine
DX: R05.9 Cough, unspecified (principal)
CPT/HCPCS: 71046

== ENCOUNTER 2022-10-20 07:54 | Outpatient (CLI) | payer OTHER, SELFPAY ==
[2022-10-20 08:48] LABS: PHA INR Fingerstick 1.9 (0.9-1.1)
== END 2022-10-20 08:49 ==
LOC: ACC 07:55
PROVIDERS: PCP Family Medicine; Visit Provider Family Medicine
DX: Z51.81 Encounter for therapeutic drug level monitoring (principal); Z79.01 Long term (current) use of anticoagulants
CPT/HCPCS: 85610; 99211; G0463

== ENCOUNTER → 2022-10-24 07:42 | Outpatient (POV) | payer OTHER, SELFPAY ==
[2022-10-24 08:22] VITALS: BP 135/44; PULSE 67; RESP 20; TEMP 36.8; O2SAT 100; BMI 42.0
--- NOTE | 2022-10-24 08:47 | A.OFFVIS_ITS ---
[facility] Pain Management SOAP Note Subjective:: Patient is a pleasant 52-year-old female comes our clinic today for medication refills. We have been treating her medically for quite some time. Patient currently being managed with ropinirole 1 mg nightly. Baclofen 5 mg 1 p.o. 3 times daily. Lyrica 100 mg twice daily and [place] 10 mg 5 times daily. Patient states she is not having any issues with the current medical management plan. She reports this medical management allows her to continue working full-time. She does not report any complications. Patient is status post multiple lumbar surgeries. Continues having severe low back pain she describes as constant, dull, aching. Also bilateral hip and leg radicular symptoms. Objective:: Patient is awake alert [place] x3. No acute distress. Flexion-extension lumbar spine somewhat guarded secondary to pain. Deep tendon reflexes upper lower extremities normal. Motor strength upper and lower extremities normal. There is no gross sensory deficit. Gait is normal. Assessment:: Degenerative disc disease lumbar spine multilevels. Lumbar radiculopathy. Lumbar postlaminectomy syndrome. Plan:: We will refill the patient's hydrocodone 10 mg 1 p.o. 5 times daily. Lyrica 100 mg 1 p.o. twice daily. Patient's Loi #[id number] has been reviewed and appropriate. Her UDS is been appropriate in the past. [facility] Disclaimer: The information contained in this section may have been updated after the patient was seen, as this information can be updated by other users. Medical History Asthma Dizziness Edema History of DVT (deep vein thrombosis) History of gastroesophageal reflux (GERD) History of TIA (transient ischemic attack) Hypertension Surgical History History of appendectomy History of section History of cholecystectomy History of hysterectomy Family History Other No significant family history Social History Smoking Status: Never smoker second hand exposure: No alcohol intake: never substance use type: denies use current occupational status: employed Travel in the last 8 weeks: None household members: spouse housing: house caffeine: Yes
== END | disposition home or self-care (01) ==
PROVIDERS: PCP Family Medicine; Visit Provider Nurse Anesthetist, Certified Registered
DX: M51.16 Intervertebral disc disorders with radiculopathy, lumbar region (principal); M96.1 Postlaminectomy syndrome, not elsewhere classified
CPT/HCPCS: 99212; G0463

== ENCOUNTER 2022-10-27 07:40 | Outpatient (CLI) | payer OTHER, SELFPAY ==
[2022-10-27 14:12] LABS: PHA INR Fingerstick 2.3 (0.9-1.1)
== END 2022-10-27 14:45 ==
LOC: ACC 07:40
PROVIDERS: PCP Family Medicine; Visit Provider Family Medicine
DX: Z51.81 Encounter for therapeutic drug level monitoring (principal); Z79.01 Long term (current) use of anticoagulants
CPT/HCPCS: 85610; 99211; G0463

== ENCOUNTER 2022-11-10 07:43 | Outpatient (CLI) | payer OTHER, SELFPAY ==
[2022-11-10 11:44] LABS: PHA INR Fingerstick 2.3 (0.9-1.1)
== END 2022-11-10 15:23 ==
LOC: ACC 07:44
PROVIDERS: PCP Family Medicine; Visit Provider Family Medicine
DX: Z51.81 Encounter for therapeutic drug level monitoring (principal); Z79.01 Long term (current) use of anticoagulants; G45.9 Transient cerebral ischemic attack, unspecified
CPT/HCPCS: 85610; 99211; G0463

== ENCOUNTER → 2022-11-23 08:14 | Outpatient (POV) | payer OTHER, SELFPAY ==
[2022-11-23 08:33] VITALS: BP 139/69; PULSE 75; RESP 18; O2SAT 98; BMI 40.0
--- NOTE | 2022-11-23 08:40 | EXP.PAIN.SOA ---
[facility] Pain Management SOAP Note Subjective:: Patient is a pleasant 52-year-old female who presents today for medication refill and follow-up. We are currently treating the patient for degenerative disc disease of lumbar spine with lumbar radiculopathy symptoms, chronic low back pain, bilateral sacroiliitis, chronic lupus syndrome. Today she rates her pain a 7 out of 10. Patient denies any new injury or trauma. Patient denies any change to location or type of pain she experiences. Patient does states she is having worsening pain in her legs today. Patient states this is a constant achy sensation from her knee down to her feet. Patient has tried her compounding cream however she states it does not provide additional improvement. Patient does state that typically it will get better the more active she becomes. Patient is currently managed with ropinirole 1 mg nightly, baclofen 5 mg 3 times a day, Lyrica 100 mg twice a day and [place] 10 mg 5 times a day. Patient denies any side effects from these medications. She is requesting refills at today's visit. Her Loi has been reviewed and appropriate. It is [id number]. Review of Systems: General: No recent weight changes, no fever, no sleep disturbances Respiratory: No cough, no shortness of air, no recurring pulmonary infections Cardiovascular/peripheral vascular: No chest pain, no palpitations, no edema, no shortness of breath Gastrointestinal: No new onset incontinence, normal bowel movements reported Genitourinary: No new onset incontinence Musculoskeletal: Leg pain Psychiatric: [Normal mood/affect] Neurological: [Denies weakness in extremities], [denies balance issues] Objective:: Physical Exam: General: Alert and oriented x3, no acute distress, pleasant and cooperative Lungs: Respirations even and unlabored, symmetrical chest expansion Eyes: PERRL Musculoskeletal: Flexion and extension of bilateral knees somewhat guarded secondary to pain, [antalgic gait noted] Neurological: Speech clear, no gross sensory deficit ORT score updated with low risk Assessment:: degenerative disc disease of lumbar spine with lumbar radiculopathy symptoms, chronic low back pain, bilateral sacroiliitis, chronic lupus syndrome Plan:: Patient continues to have significant pain in her low back and legs however she does do well with her current medication regimen. I will refill the patient's ropinirole 1 mg nightly, baclofen 5 mg 3 times a day, Lyrica 100 mg twice a day and [place] 10 mg 5 times a day. Patient will be given a 1 month supply of these medications. She will return to clinic in 1 month for reevaluation of symptoms, medication refill and follow-up. Patient has been advised of risks of oversedation with the prescribed medication. Narcan has been offered to the patient in the event of oversedation. Patient has been advised that a family member should also be educated regarding administration of Narcan. Patient has been instructed to contact the clinic with any concerns before the next appointment. Dr. Venegas has reviewed this note and agrees with this plan of care. This note was dictated using voice recognition software and make contain errors or omissions. [facility] Disclaimer: The information contained in this section may have been updated after the patient was seen, as this information can be updated by other users. Medical History Asthma Dizziness Edema History of DVT (deep vein thrombosis) History of gastroesophageal reflux (GERD) History of TIA (transient ischemic attack) Hypertension Surgical History History of appendectomy History of section History of cholecystectomy History of hysterectomy Family History Other No significant family history Social History Smoking Status: Never
== END | disposition home or self-care (01) ==
PROVIDERS: PCP Family Medicine; Visit Provider Nurse Practitioner Family
DX: M51.16 Intervertebral disc disorders with radiculopathy, lumbar region (principal); M46.1 Sacroiliitis, not elsewhere classified; M54.50 Low back pain, unspecified; G89.29 Other chronic pain
CPT/HCPCS: 99212; G0463

== ENCOUNTER → 2022-11-24 10:02 | Outpatient (CLI) | payer OTHER, SELFPAY ==
[2022-11-24 10:51] LABS: Amphetamine/Metha Screen,Urine Negative ng/ml (<1000); Barbiturates Screen,Urine Negative ng/ml (<200); Benzodiazepines Screen,Urine Negative ng/ml (<200); Cannabinoid Screen,Urine Negative ng/ml (<50); Cocaine Screen,Urine Negative ng/ml (<300); Methadone Screen,Urine Negative ng/ml (<300); Opiate Screen,Urine Positive ng/ml (<300); Phencyclidine Screen,Urine Negative ng/ml (<25)
[2022-12-11 17:09] LABS: Codeine Negative (Cutoff=100); Hydrocodone Positive (.); Hydromorphone Positive (.); Morphine Negative (Cutoff=100); Opiates Positive (.)
== END ==
PROVIDERS: PCP Family Medicine; Visit Provider Nurse Practitioner Family
DX: M54.16 Radiculopathy, lumbar region (principal)
CPT/HCPCS: 80305; 80361; 80365; G0480

== ENCOUNTER 2022-12-08 07:42 | Outpatient (CLI) | payer OTHER, SELFPAY ==
[2022-12-08 11:20] LABS: PHA INR Fingerstick 2.1 (0.9-1.1)
== END 2022-12-08 11:26 ==
LOC: ACC 07:42
PROVIDERS: PCP Family Medicine; Visit Provider Family Medicine
DX: Z51.81 Encounter for therapeutic drug level monitoring (principal); Z79.01 Long term (current) use of anticoagulants; G45.9 Transient cerebral ischemic attack, unspecified
CPT/HCPCS: 85610; 99211; G0463

== ENCOUNTER → 2022-12-21 09:07 | Outpatient (POV) | payer OTHER, SELFPAY ==
[2022-12-21 09:17] VITALS: BP 134/68; PULSE 71; RESP 20; BMI 41.5
--- NOTE | 2022-12-21 09:20 | EXP.PAIN.SOA ---
[facility] Pain Management SOAP Note Subjective:: Patient is a pleasant 52-year-old female who presents today for medication refill and follow-up. We are currently treating the patient for degenerative disc disease of lumbar spine with lumbar radiculopathy symptoms, chronic low back pain, bilateral sacroiliitis, chronic lupus. Today she rates her pain a 3 out of 10. Patient denies any new trauma or injury. Patient denies any change location or type of pain she experiences. She is currently managed with ropinirole 1 mg nightly, baclofen 5 mg 3 times a day, Lyrica 100 mg twice a day and [place] 10 mg 5 times a day. Patient denies any side effects from these medications her Loi is [id number]. Its been reviewed and appropriate. Review of Systems: General: No recent weight changes, no fever, no sleep disturbances Respiratory: No cough, no shortness of air, no recurring pulmonary infections Cardiovascular/peripheral vascular: No chest pain, no palpitations, no edema, no shortness of breath Gastrointestinal: No new onset incontinence, normal bowel movements reported Genitourinary: No new onset incontinence Musculoskeletal: Low back pain Psychiatric: [Normal mood/affect] Neurological: [Denies weakness in extremities], [denies balance issues] Objective:: Physical Exam: General: Alert and oriented x3, no acute distress, pleasant and cooperative Lungs: Respirations even and unlabored, symmetrical chest expansion Eyes: PERRL Musculoskeletal: Flexion and extension of lumbar [spine] somewhat guarded secondary to pain, [antalgic gait noted] Neurological: Speech clear, no gross sensory deficit Assessment:: Degenerative disc disease of lumbar spine with lumbar radiculopathy symptoms, chronic low back pain, bilateral sacroiliitis, chronic lupus Plan:: Patient is doing well with her current medication regimen. I will refill her baclofen 5 mg 3 times a day, ropinirole 1 mg nightly, Lyrica 100 mg twice a day and [place] 10 mg 5 times a day and provide a 1 month supply of these medications. Patient will return to clinic in 1 month for reevaluation of symptoms and medication refill. Patient has been advised of risks of oversedation with the prescribed medication. Narcan has been offered to the patient in the event of oversedation. Patient has been advised that a family member should also be educated regarding administration of Narcan. Patient has been instructed to contact the clinic with any concerns before the next appointment. Dr. Venegas has reviewed this note and agrees with this plan of care. This note was dictated using voice recognition software and make contain errors or omissions. [facility] Disclaimer: The information contained in this section may have been updated after the patient was seen, as this information can be updated by other users. Medical History Asthma Dizziness Edema History of DVT (deep vein thrombosis) History of gastroesophageal reflux (GERD) History of TIA (transient ischemic attack) Hypertension Surgical History History of appendectomy History of section History of cholecystectomy History of hysterectomy Family History Other No significant family history Social History Smoking Status: Never smoker second hand exposure: No alcohol intake: never substance use type: denies use current occupational status: employed Travel in the last 8 weeks: None household members: spouse housing: house caffeine: Yes
== END | disposition home or self-care (01) ==
PROVIDERS: Visit Provider Nurse Practitioner Family
DX: M51.16 Intervertebral disc disorders with radiculopathy, lumbar region (principal); M46.1 Sacroiliitis, not elsewhere classified; G89.29 Other chronic pain
CPT/HCPCS: 99212; G0463

== ENCOUNTER 2022-12-24 13:44 | Emergency (ER) | payer OTHER, SELFPAY ==
--- NOTE | 2022-12-24 14:09 | CA_ITS ---
FINAL REPORT TECHNIQUE: Color Doppler, duplex Doppler and compression sonography of the left lower extremity deep venous systems was performed. CLINICAL HISTORY: left leg pain, history of dvt,pt on plavix and coumadin,nki FINDINGS: There is no evidence of deep venous thrombosis from the level of the groin to the calf. The veins are patent and compressible. IMPRESSION: No evidence of deep venous thrombosis left lower extremity. Authenticated and ERN
[2022-12-24 15:10] VITALS: BP 148/72; PULSE 65; RESP 20; TEMP 36.7; O2SAT 100; BMI 43.0
--- NOTE | 2022-12-24 15:39 | EXP.UTC ---
Discharge Plan Disposition Patient Disposition: Home, Self-Care Condition: Good Prescriptions Prescriptions: New cyclobenzaprine 10 mg Tablet 10 mg PO BID PRN (Reason: Muscle Spasm) Qty: 20 0RF methylprednisolone 4 mg Tablets,Dose Pack 4 mg PO DIRECTED Qty: 21 0RF No Action albuterol sulfate 90 mcg/actuation HFA aerosol inhaler See Rx Instructions .Route .COMPLEX Qty: 8.5 12RF Rx Instructions: INHALE 1 PUFF BY MOUTH EVERY 6 HOURS NEEDED FOR SHORTNESS OF BREATH OR WHEEZING duloxetine [Cymbalta] 60 mg capsule,delayed release(DR/EC) 60 mg PO HS Qty: 90 3RF torsemide 20 mg tablet 20 mg PO BID PRN (Reason: edema) Qty: 180 3RF hydroxychloroquine 200 mg tablet 200 mg PO BID Qty: 180 3RF clopidogrel 75 mg tablet 75 mg PO DAILY Qty: 90 3RF carvedilol 6.25 mg tablet 6.25 mg PO BID losartan 50 mg tablet 50 mg PO BID spironolactone 50 mg tablet 50 mg PO DAILY baclofen 5 mg tablet 5 mg PO TID warfarin 5 mg tablet 5 mg PO DAILY ropinirole 1 mg tablet 1 mg PO HS Qty: 30 0RF Rx Instructions: administer 1-3 hours before bedtime hydrocodone-acetaminophen 10-325 mg tablet 1 tab PO 5XDAY Qty: 150 0RF pregabalin 100 mg capsule 100 mg PO BID Qty: 60 0RF Referrals Follow up/Referrals: Valentin Daniel MD [Primary Care Provider] - See instructions Activity Restrictions/Add. Instructions Additional Instructions/Restrictions: Go home and rest. It would be best if you rested tomorrow too. No heavy lifting. No twisting. Take the oral medications as directed. The muscle relaxer (cyclobenzaprine--Flexeril) will make you drowsy, so don't drive or operate heavy machinery after taking it. If you are prescribed other muscle relaxers, please don't take both of them. Don't start the oral steroids (medrol dose pack) until tomorrow, since you had the shots in here today. Follow up with your regular doctor. GO TO THE ER FOR ANY WORSENING SYMPTOMS OR CONCERN, ESPECIALLY BOWEL OR BLADDER ISSUES, SADDLE AREA NUMBNESS, FEVER, ETC Clinical Impressions Clinical Impression: Sciatica Instructions Patient Instructions: DI for Sciatica Discharge ED Provider: Richard Rhodes [facility] General Stated complaint: left leg pain, no known accident Time Seen by Provider: 12/24/22 15:38 History of Present Illness Provider Complaint: She c/o pain in the back of her left thigh that radiates to her calf. She does have a history dvt. She is currently anticoagulated with coumadin Related Data Home Medications Medication Instructions Recorded Confirmed carvedilol 6.25 mg tablet 6.25 mg PO BID High blood pressure 09/19/22 12/24/22 losartan 50 mg tablet 50 mg PO BID High blood pressure 09/19/22 12/24/22 spironolactone 50 mg tablet 50 mg PO DAILY High blood pressure 09/19/22 12/24/22 warfarin 5 mg tablet 5 mg PO DAILY Blood thinner 10/24/22 12/24/22 baclofen 5 mg tablet 5 mg PO TID . 12/24/22 12/24/22 Previous Rx's Medication Instructions Recorded albuterol sulfate 90 mcg/actuation See Rx Instructions .Route 06/16/22 aerosol inhaler .COMPLEX Asthma #8.5 grams duloxetine 60 mg capsule,delayed 60 mg PO HS dorsalgias #90 caps 08/07/22 release (Cymbalta) hydroxychloroquine 200 mg tablet 200 mg PO BID LUPUS #180 tabs 08/14/22 torsemide 20 mg tablet 20 mg PO BID PRN edema #180 tabs 08/14/22 clopidogrel 75 mg tablet 75 mg PO DAILY . #90 tabs 11/27/22 hydrocodone 10 mg-acetaminophen 1 tab PO 5XDAY Pain #150 tabs 12/21/22 325 mg tablet pregabalin 100 mg capsule 100 mg PO BID neuropathic pain #60 12/21/22 caps ropinirole 1 mg tablet 1 mg PO HS LEGS #30 tabs 12/21/22 cyclobenzaprine 10 mg tablet 10 mg PO BID PRN Muscle Spasm #20 12/24/22 tabs methylprednisolone 4 mg tablets in 4 mg PO DIRECTED #21 tabs 12/24/22 a dose pack Allergies Allergy/AdvReac Type Severity Reaction Status Date / Time gum mastic Allergy Unknown Verifie
[2022-12-24 16:38] VITALS: BP 148/72; PULSE 65; RESP 20; TEMP 36.7; O2SAT 100
== END 2022-12-24 16:37 | disposition home or self-care (01) ==
PROVIDERS: Emergency Provider Nurse Practitioner Family; PCP Family Medicine
DX: M54.32 Sciatica, left side (principal); M79.605 Pain in left leg; Z79.01 Long term (current) use of anticoagulants; Z86.718 Personal history of other venous thrombosis and embolism
CPT/HCPCS: 96372; 93971; 99212; 99214; G0463

== ENCOUNTER → 2022-12-26 11:08 | Outpatient (POV) | payer OTHER, SELFPAY ==
[2022-12-26 11:27] VITALS: BP 130/65; PULSE 69; RESP 20; O2SAT 99; BMI 43.0
--- NOTE | 2022-12-26 12:32 | A.OFFVIS_ITS ---
[facility] Pain Management SOAP Note Subjective:: This patient is a pleasant 52-year-old female that comes our clinic today for follow-up visit. Patient states on 12/23/2022 she was caring for her invalid mother. Helping her from the side bed commode to the chair she felt something pop in her low left lumbar area and a shooting pain down the posterior left leg to the ankle. Patient states the pain was excruciating. She rates the pain today 8/10. Patient went to the [facility] the following day. She was administered Toradol injection. Steroid injection. And on 12/25/2022 she began Medrol Dosepak. She presents to the clinic today in a wheelchair. She has difficulty with ambulation. Patient is on chronic blood thinners. We do currently manage her medically with [place] 10 mg 5 times daily. Lyrica 100 mg twice daily. Baclofen 5 mg 3 times daily. However, the [facility] prescribe her Flexeril which she is currently taking in place of baclofen. I discussed in detail with the patient regarding treatment options. She is on an injection candidate. However, I recommended lumbar MRI to help us discern pathology. She agrees with this. Objective:: Patient is awake alert [place] x3. In some distress with low back left hip and leg radicular symptoms. She presents in a wheelchair. Motor strength upper extremities normal. There is no gross sensory deficit. Gait is not evaluated due to patient in wheelchair Assessment:: Degenerative disc disease lumbar spine. Lumbar back pain. Left leg radicular pain. Chronic lupus. Bilateral sacroiliitis. Chronic blood thinner. Plan:: We will schedule patient for lumbar MRI to further discern pathology. We will see her back for follow-up. [facility] Disclaimer: The information contained in this section may have been updated after the patient was seen, as this information can be updated by other users. Medical History Asthma Dizziness Edema History of DVT (deep vein thrombosis) History of gastroesophageal reflux (GERD) History of TIA (transient ischemic attack) Hypertension Surgical History History of appendectomy History of section History of cholecystectomy History of hysterectomy Family History Other No significant family history Social History Smoking Status: Never smoker second hand exposure: No alcohol intake: never substance use type: denies use current occupational status: employed Travel in the last 8 weeks: None household members: spouse housing: house caffeine: Yes
== END | disposition home or self-care (01) ==
PROVIDERS: PCP Family Medicine; Visit Provider Nurse Anesthetist, Certified Registered
DX: M51.36 Other intervertebral disc degeneration, lumbar region (principal); M46.1 Sacroiliitis, not elsewhere classified; M79.605 Pain in left leg
CPT/HCPCS: 99212; G0463

== ENCOUNTER → 2023-01-08 13:56 | Outpatient (CLI) | payer OTHER, SELFPAY ==
[2023-01-08 13:55] LABS: Adenovirus,PCR Not Detected (NotDetected); Bordetella Pertussis Not Detected (NotDetected); Chlamydophila Pneumoniae, PCR Not Detected (NotDetected); Coronavirus 19, PCR Not Detected (NotDetected); Coronavirus 229E Not Detected (NotDetected); Coronavirus NL63 Not Detected (NotDetected); Coronavirus OC43 Not Detected (NotDetected); Coronovirus HKU1,PCR Not Detected (NotDetected); Human Metapneumovirus Not Detected (NotDetected); Influenza A, PCR Not Detected (NotDetected); Influenza AH1, 2009 Not Detected (NotDetected); Influenza AH1, PCR Not Detected (NotDetected); Influenza AH3,PCR Not Detected (NotDetected); Influenza B, PCR Not Detected (NotDetected); Mycoplasma Pneumoniae, PCR Not Detected (NotDetected); Parainfluenza 1, PCR Not Detected (NotDetected); Parainfluenza 2, PCR Not Detected (NotDetected); Parainfluenza 3, PCR Not Detected (NotDetected); Parainfluenza 4, PCR Not Detected (NotDetected); Respiratory Syncytial Virus Not Detected (NotDetected)
[2023-01-08 16:11] LABS: Rhinovirus/Enterovirus Detected (NotDetected)
== END ==
PROVIDERS: PCP Family Medicine; Visit Provider Family Medicine
DX: R50.9 Fever, unspecified (principal); R05.9 Cough, unspecified; B34.1 Enterovirus infection, unspecified
CPT/HCPCS: 87581; 87632; 87798; C9803; U0003; U0005

== ENCOUNTER 2023-01-12 08:01 | Outpatient (CLI) | payer OTHER, SELFPAY ==
[2023-01-12 08:55] LABS: Prothrombin Time 82.9 seconds (10.1-12.5)
[2023-01-12 14:14] LABS: PHA INR Fingerstick 7.1 (0.9-1.1)
== END 2023-01-12 15:37 ==
PROVIDERS: PCP Family Medicine; Visit Provider Family Medicine
DX: G45.9 Transient cerebral ischemic attack, unspecified (principal); Z51.81 Encounter for therapeutic drug level monitoring; Z79.01 Long term (current) use of anticoagulants
CPT/HCPCS: 36415; 85610; 99211; G0463

== ENCOUNTER 2023-01-16 07:55 | Outpatient (CLI) | payer OTHER, SELFPAY ==
[2023-01-16 14:03] LABS: PHA INR Fingerstick 3.9 (0.9-1.1)
== END 2023-01-16 14:40 ==
LOC: ACC 07:56
PROVIDERS: PCP Family Medicine; Visit Provider Family Medicine
DX: Z51.81 Encounter for therapeutic drug level monitoring (principal); Z79.01 Long term (current) use of anticoagulants; G45.9 Transient cerebral ischemic attack, unspecified
CPT/HCPCS: 85610; 99211; G0463

== ENCOUNTER → 2023-01-22 08:16 | Outpatient (POV) | payer OTHER, SELFPAY ==
[2023-01-22 08:27] VITALS: BP 127/48; PULSE 72; RESP 18; O2SAT 97; BMI 43.0
--- NOTE | 2023-01-22 08:58 | EXP.PAIN.SOA ---
[facility] Pain Management SOAP Note Subjective:: Patient is a pleasant 52-year-old female who presents today for medication refill and follow-up. We are currently treating the patient for degenerative disc disease of lumbar spine with lumbar radiculopathy symptoms, chronic low back pain, bilateral sacroiliitis, chronic lupus. Today she rates her pain an 8 out of 10. Patient states that yesterday as she was getting out of her car she felt something in her back give way and ever since she has had increased pain. She does describe this as a constant debilitating pain that is in her low back with radiating symptoms into her left leg. Patient is currently unable to lift her left foot upward due to worsening pain symptoms. She does state it is interfering with her ability to perform any activities of daily living and even walking is difficult. Patient states she has not been able to cook or clean due to her constant pain. Patient is currently managed with ropinirole 1 mg nightly, baclofen 5 mg 3 times a day, Lyrica 100 mg twice a day and [place] 10 mg 5 times a day. Patient denies any side effects from these medications. Her Loi is [id number]. Its been reviewed and appropriate. Review of Systems: General: No recent weight changes, no fever, no sleep disturbances Respiratory: No cough, no shortness of air, no recurring pulmonary infections Cardiovascular/peripheral vascular: No chest pain, no palpitations, no edema, no shortness of breath Gastrointestinal: No new onset incontinence, normal bowel movements reported Genitourinary: No new onset incontinence Musculoskeletal: Low back pain, left leg pain Psychiatric: [Normal mood/affect] Neurological: [Denies weakness in extremities], [denies balance issues] Objective:: Physical Exam: General: Alert and oriented x3, no acute distress, pleasant and cooperative Lungs: Respirations even and unlabored, symmetrical chest expansion Eyes: PERRL Musculoskeletal: Flexion and extension of lumbar [spine] somewhat guarded secondary to pain, [antalgic gait noted] Neurological: Speech clear, no gross sensory deficit Assessment:: Degenerative disc disease of lumbar spine with lumbar radiculopathy symptoms, chronic low back pain, bilateral sacroiliitis, chronic lupus Plan:: Patient is currently experiencing significant pain in her low back along the left side with radiating symptoms into her left leg. Patient had limited range of motion of her lumbar spine during today's visit. I will refill her ropinirole 1 mg nightly, baclofen 5 mg 3 times a day, Lyrica 100 mg twice a day and [place] 10 mg 5 times a day and provide a 1 month supply of this medication. I will also send in a prednisone 20 mg twice daily with a 5-day dose. I will order x-ray imaging of her lumbar spine that she is going to get immediately following this visit. I will also order a CT without contrast of her lumbar spine due to patient being unable to tolerate the prolonged positioning related to a MRI. Patient will return to clinic following this imaging for reevaluation of symptoms and plan of care. Patient has been instructed to contact the clinic with any concerns before the next appointment. Dr. Venegas has reviewed this note and agrees with this plan of care. This note was dictated using voice recognition software and make contain errors or omissions. [facility] Disclaimer: The information contained in this section may have been updated after the patient was seen, as this information can be updated by other users. Medical History Asthma Dizziness Edema History of DVT (deep vein thrombosis) History of gastroesophageal reflux (GERD) History of TIA (transient ischemic attack) Hypertension Surgical History History of appendectomy History of section History of cholecystectomy History of hysterectomy Family History (Reviewed 01/08/23 @ 11:02 by
== END | disposition home or self-care (01) ==
PROVIDERS: Visit Provider Nurse Practitioner Family
DX: M51.16 Intervertebral disc disorders with radiculopathy, lumbar region (principal); M46.1 Sacroiliitis, not elsewhere classified
CPT/HCPCS: 99212; G0463

== ENCOUNTER → 2023-01-22 08:43 | Outpatient (CLI) | payer OTHER, SELFPAY ==
--- NOTE | 2023-01-22 08:55 | XR_ITS ---
FINAL REPORT CLINICAL HISTORY: LOW BACK PAIN, states she hurt it getting out of the car FINDINGS: LUMBAR SPINE 5 views of the lumbar spine were obtained. There is no evidence of fracture or dislocation. The vertebral alignment is normal. Are mild degenerative changes with osteophytes. There is mild facet arthropathy at multiple levels. No paraspinous soft tissue abnormalities identified. IMPRESSION: Mild degenerative changes with mild facet arthropathy at multiple levels. No acute bony abnormality. Reviewed, Interpreted and Dictated by Mundo Horowitz III, MD Transcribed by Federica Tellez Authenticated and . [facility]
== END ==
PROVIDERS: PCP Family Medicine; Visit Provider Nurse Practitioner Family
DX: M54.50 Low back pain, unspecified (principal)
CPT/HCPCS: 72110

== ENCOUNTER 2023-01-24 11:28 | Outpatient (CLI) | payer OTHER, SELFPAY ==
[2023-01-24 15:31] LABS: PHA INR Fingerstick 2.5 (0.9-1.1)
== END 2023-01-24 15:34 ==
LOC: ACC 11:29
PROVIDERS: PCP Family Medicine; Visit Provider Family Medicine
DX: Z51.81 Encounter for therapeutic drug level monitoring (principal); Z79.01 Long term (current) use of anticoagulants; G45.9 Transient cerebral ischemic attack, unspecified
CPT/HCPCS: 85610; 99211; G0463

== ENCOUNTER 2023-02-02 08:02 | Outpatient (CLI) | payer OTHER, SELFPAY | END 2023-02-02 08:39 | LOC: ACC 08:03 | PROVIDERS: PCP Family Medicine; Visit Provider Family Medicine | DX: Z51.81 Encounter for therapeutic drug level monitoring (principal); Z79.01 Long term (current) use of anticoagulants; G45.9 Transient cerebral ischemic attack, unspecified | CPT/HCPCS: 85610; 99211; G0463 ==

== ENCOUNTER → 2023-02-12 12:25 | Outpatient (CLI) | payer OTHER, SELFPAY ==
--- NOTE | 2023-02-12 12:28 | XR_ITS ---
FINAL REPORT CLINICAL HISTORY: Left ankle pain FINDINGS: LEFT ANKLE Three views demonstrate no acute fracture or dislocation. The mortise is intact. No acute soft tissue abnormality is seen. IMPRESSION: No acute process. Reviewed, Interpreted and Dictated by David Bee MD Transcribed by Negra Terrazas Authenticated and [facility]
--- NOTE | 2023-02-12 12:28 | XR_ITS ---
FINAL REPORT CLINICAL HISTORY: Left foot pain FINDINGS: LEFT FOOT Three views demonstrate no acute fracture or dislocation. There is a small plantar spur. The joint spaces appear normal. No acute soft tissue abnormality is seen. IMPRESSION: No acute process. Reviewed, Interpreted and Dictated by David Bee MD Transcribed by Negra Terrazas Authenticated and [facility]
--- NOTE | 2023-02-12 12:28 | XR_ITS ---
FINAL REPORT CLINICAL HISTORY: left calf pain FINDINGS: LEFT TIBIA/FIBULA 2 views were obtained. There is no acute fracture or dislocation. The joint spaces are intact. There is no soft tissue abnormality. IMPRESSION: No acute bony abnormality. Reviewed, Interpreted and Dictated by David Bee MD Transcribed by Negra Terrazas Authenticated and [facility]
== END ==
PROVIDERS: PCP Family Medicine; Visit Provider Podiatrist
DX: M25.572 Pain in left ankle and joints of left foot (principal); M79.662 Pain in left lower leg; M79.672 Pain in left foot
CPT/HCPCS: 73590; 73610; 73630

== ENCOUNTER 2023-02-20 08:10 | Outpatient (CLI) | payer OTHER, SELFPAY | END 2023-02-20 09:26 | PROVIDERS: PCP Family Medicine; Visit Provider Family Medicine | DX: G45.9 Transient cerebral ischemic attack, unspecified (principal); Z51.81 Encounter for therapeutic drug level monitoring; Z79.01 Long term (current) use of anticoagulants | CPT/HCPCS: 85610; 99211; G0463 ==

== ENCOUNTER → 2023-02-22 13:48 | Outpatient (POV) | payer OTHER, SELFPAY ==
[2023-02-22 13:55] VITALS: BP 112/36; PULSE 68; RESP 18; O2SAT 97; BMI 40.7
--- NOTE | 2023-02-22 14:31 | EXP.PAIN.SOA ---
[facility] Pain Management SOAP Note Subjective:: Patient is a pleasant 52-year-old female who presents today for CT denial. We are currently treating the patient for degenerative disc disease of lumbar spine with lumbar radiculopathy symptoms, bilateral sacroiliitis, left leg radicular pains, chronic lupus. Today she rates her pain a 2 out of 10. Patient denies any new trauma or injury from her last visit in December. Patient states that she has had a rough start this year. Back in October she did have a TIA and then later ended up with a total foot drop. Patient is currently seeing Dr. Coreas's office for this and does have a temporary brace and is in the process of getting a customized 1 ordered. Patient states that she has seen rheumatology as of last week and they did order as needed prednisone in times of worsening pain. Patient is currently managed with [place] 10 mg 5 times a day, Lyrica 100 mg twice a day and baclofen 5 mg 3 times daily. Patient denies any side effects from this medication. She states that she does not need any refills on her baclofen at this time. Her Loi is [id number]. Its been reviewed and appropriate. Review of Systems: General: No recent weight changes, no fever, no sleep disturbances Respiratory: No cough, no shortness of air, no recurring pulmonary infections Cardiovascular/peripheral vascular: No chest pain, no palpitations, no edema, no shortness of breath Gastrointestinal: No new onset incontinence, normal bowel movements reported Genitourinary: No new onset incontinence Musculoskeletal: Low back pain, left foot pain Psychiatric: [Normal mood/affect] Neurological: [Denies weakness in extremities], [denies balance issues] Objective:: Physical Exam: General: Alert and oriented x3, no acute distress, pleasant and cooperative Lungs: Respirations even and unlabored, symmetrical chest expansion Eyes: PERRL Musculoskeletal: Flexion and extension of lumbar [spine] somewhat guarded secondary to pain, [antalgic gait noted] Neurological: Speech clear, no gross sensory deficit Assessment:: Degenerative disc disease of lumbar spine with lumbar radiculopathy symptoms, bilateral sacroiliac, left leg radicular pains, chronic lupus, left foot drop Plan:: I will order the patient physical therapy for her low back pain today. I will also refill the patient's pregabalin 100 mg twice a day and [place] 10 mg 5 times a day and provide a 1 month supply of this medication. Patient will return to clinic in 1 month for reevaluation of symptoms, medication refill and follow-up. Patient has been advised of risks of oversedation with the prescribed medication. Narcan has been offered to the patient in the event of oversedation. Patient has been advised that a family member should also be educated regarding administration of Narcan. Patient has been instructed to contact the clinic with any concerns before the next appointment. Dr. Venegas has reviewed this note and agrees with this plan of care. This note was dictated using voice recognition software and make contain errors or omissions. [facility] Disclaimer: The information contained in this section may have been updated after the patient was seen, as this information can be updated by other users. Medical History Asthma Dizziness Edema History of DVT (deep vein thrombosis) History of gastroesophageal reflux (GERD) History of TIA (transient ischemic attack) Hypertension Surgical History History of appendectomy History of section History of cholecystectomy History of hysterectomy Family History Other No significant family history Social History Smoking Status: Never smoker second hand exposure: No alcohol intake: never substance use type: denies use current
== END | disposition home or self-care (01) ==
PROVIDERS: PCP Family Medicine; Visit Provider Nurse Practitioner Family
DX: M51.16 Intervertebral disc disorders with radiculopathy, lumbar region (principal); M46.1 Sacroiliitis, not elsewhere classified
CPT/HCPCS: 99212; G0463

== ENCOUNTER → 2023-02-23 08:04 | Outpatient (CLI) | payer OTHER, SELFPAY ==
[2023-02-23 08:53] LABS: Barbiturates Screen,Urine Negative ng/ml (<200)
[2023-02-23 08:54] LABS: Benzodiazepines Screen,Urine Negative ng/ml (<200)
[2023-02-23 08:55] LABS: Amphetamine/Metha Screen,Urine Negative ng/ml (<1000); Methadone Screen,Urine Negative ng/ml (<300)
[2023-02-23 08:56] LABS: Cannabinoid Screen,Urine Negative ng/ml (<50)
[2023-02-23 08:57] LABS: Cocaine Screen,Urine Negative ng/ml (<300); Opiate Screen,Urine Positive ng/ml (<300)
[2023-02-23 08:58] LABS: Phencyclidine Screen,Urine Negative ng/ml (<25)
[2023-03-02 11:05] LABS: Codeine Negative (Cutoff=100); Hydrocodone Positive (.); Hydromorphone Negative (Cutoff=100); Morphine Negative (Cutoff=100); Opiates Positive (.)
== END ==
PROVIDERS: Nurse Practitioner Family; PCP Family Medicine; Visit Provider Anesthesiology
DX: Z79.891 Long term (current) use of opiate analgesic (principal)
CPT/HCPCS: 80305; 80361; 80365; G0480

== ENCOUNTER 2023-03-08 15:00 | Outpatient (RCR) | payer OTHER, SELFPAY ==
--- NOTE | 2023-03-01 17:05 | HMH.PTOPEV ---
PT Outpatient Evaluation Rehab PT Outpatient Evaluation Start: 03/01/23 16:46 Freq: Status: Active Protocol: Document 03/01/23 16:47 SCARLETT (Rec: 03/01/23 17:04 SCARLETT [id number]) E-signed By Vish Durán, PT Outpatient Therapy Subjective History Subjective History Patient is a 53 year old female presenting to outpatient PT with reports of chronic LBP of insidious onset starting approx 10 years ago. Patient has under went 4 surgical procedures, with the most recent including spinal stimulator placement that ended up having MRSA. Previous procedures include hx of discectomies and laminectomies. Since most recent procedure, patient has been dealing with L foot drop. Comorbidities include hx of fibromyalgia and lupus. Chief Complaint Pain,Spasms,Stiff,Paresthesia Symptom Type Ache,Sharp,Stabbing Symptoms Relieved By Rest/Positioning,Heat, Prescription Meds,Activity Symptoms Aggravated By Sitting,Standing,Bending/ Stooping,Physical Activity, Walking,Lifting Prior Functional Limitations None Current Functional Limitations Lifting,Housework,Standing, Walking,Bending/Stooping Symptom Description Constant but Variable Level of pain today (0-10) 4 Pain scale - at its best (0-10) 2 Pain scale - at its worst (0-10) 9 Lumbopelvic Eval Posture Thoracic Spine Posture Standing Position Increased Kyphosis Lumbar Spine Posture Standing Position Increased Lordosis Palapation tenderness right lumbar spinal tenderness Yes: L3-S1 3/4 paraspinal tenderness Yes Lumbar/Sacral Palpation Findings Tenderness Lumbar/Sacral Palpation Overall Comment PSIS 2/4 Accessory Movement L3 bilateral L4 bilateral L5 bilateral S1 bilateral Range of Motion Lumbar Spine Active Flexion Range of 78 Motion (degrees) Lumbar Spine Active Extension Range of 25 Motion (degrees) Left Lumbar Spine Lateral Flexion Active 26 Range of Motion (degrees) Right Lumbar Spine Lateral Flexion 23 Active Range of Motion (degrees) Lumbar Spine ROM Limitations Soft Tissue Tightness,Bony R
== END 2023-03-08 15:05 | disposition home or self-care (01) ==
LOC: PT 15:00
PROVIDERS: PCP Family Medicine; Visit Provider Nurse Practitioner Family
DX: M54.50 Low back pain, unspecified (principal)
CPT/HCPCS: 97010; 97014; 97110; 97163; G0283

== ENCOUNTER 2023-03-21 07:58 | Outpatient (CLI) | payer OTHER, SELFPAY ==
[2023-03-21 09:47] LABS: PHA INR Fingerstick 2.6 (0.9-1.1)
== END 2023-03-21 09:51 ==
PROVIDERS: PCP Family Medicine; Visit Provider Family Medicine
DX: Z51.81 Encounter for therapeutic drug level monitoring (principal); Z79.01 Long term (current) use of anticoagulants; G45.9 Transient cerebral ischemic attack, unspecified
CPT/HCPCS: 85610; 99211; G0463

== ENCOUNTER → 2023-03-21 08:32 | Outpatient (POV) | payer OTHER, SELFPAY ==
[2023-03-21 08:53] VITALS: BP 153/78; PULSE 72; RESP 18; O2SAT 97; BMI 40.7
--- NOTE | 2023-03-21 09:49 | EXP.PAIN.SOA ---
[facility] Pain Management SOAP Note Subjective:: Patient is a pleasant 53-year-old female who presents today for medication refill and follow-up. We are currently treating the patient for degenerative disc disease of lumbar spine with lumbar radiculopathy symptoms, bilateral sacroiliitis, left leg radicular pains, chronic lupus. Today she rates her pain a 7 out of 10. Patient denies any new trauma or injury. She states that she is having worsening pain in her right hip and does believe it is related to arthritis. She does describe this as an aching, throbbing sensation that is worse with increased activity. She does do dance exercise 3 times a week and states this is when she notices the pain more frequently. She also states that it does interfere with her ability to perform activities of daily living such as cooking and cleaning. Patient is currently managed with [place] 10 mg 5 times a day, Lyrica 100 mg twice a day and baclofen 5 mg 3 times a day. She denies any side effects to these medications. She does state that she still think she has enough on her baclofen and does not need any refills. Her Loi is [phone]. Its been reviewed and appropriate. Review of Systems: General: No recent weight changes, no fever, no sleep disturbances Respiratory: No cough, no shortness of air, no recurring pulmonary infections Cardiovascular/peripheral vascular: No chest pain, no palpitations, no edema, no shortness of breath Gastrointestinal: No new onset incontinence, normal bowel movements reported Genitourinary: No new onset incontinence Musculoskeletal: Right hip pain Psychiatric: [Normal mood/affect] Neurological: [Denies weakness in extremities], [denies balance issues] Objective:: Physical Exam: General: Alert and oriented x3, no acute distress, pleasant and cooperative Lungs: Respirations even and unlabored, symmetrical chest expansion Eyes: PERRL Musculoskeletal: Flexion and extension of right hip somewhat guarded secondary to pain, [antalgic gait noted] Neurological: Speech clear, no gross sensory deficit Assessment:: Degenerative disc disease of lumbar spine with lumbar radiculopathy symptoms, bilateral sacroiliitis, left leg radicular pains, chronic lupus, right hip pain Plan:: Patient is experiencing significant pain in her right hip with limited range of motion. I have discussed with the patient that she may benefit from a right hip intra-articular injection. Risk and benefits were discussed with the patient and she would like to proceed forward with this plan of care. I have also counseled the patient that we can do x-ray imaging if this continues to worsen. At this time the patient would like to wait on imaging and try the injection first. I will refill the patient's [place] 10 mg 5 times a day and pregabalin 100 mg twice a day and provide a 1 month supply of these medications. Patient will return to clinic in 1 month for her medication refill. She will be scheduled for a right intra-articular hip injection. Patient has been advised of risks of oversedation with the prescribed medication. Narcan has been offered to the patient in the event of oversedation. Patient has been advised that a family member should also be educated regarding administration of Narcan. Patient has been instructed to contact the clinic with any concerns before the next appointment. Dr. Venegas has reviewed this note and agrees with this plan of care. This note was dictated using voice recognition software and make contain errors or omissions. [facility] Disclaimer: The information contained in this section may have been updated after the patient was seen, as this information can be updated by other users. Medical History Asthma Dizziness Edema History of DVT (deep vein thrombosis) History of gastroesophageal reflux (GERD) History of TIA (transient ischemic attack) Hypertension Surgical History (Reviewed
== END | disposition home or self-care (01) ==
PROVIDERS: PCP Family Medicine; Visit Provider Nurse Practitioner Family
DX: M51.16 Intervertebral disc disorders with radiculopathy, lumbar region (principal); M46.1 Sacroiliitis, not elsewhere classified; M25.551 Pain in right hip
CPT/HCPCS: 99212; G0463

== ENCOUNTER 2023-03-23 20:48 | Emergency (ER) | payer OTHER, SELFPAY ==
[2023-03-23 20:50] VITALS: BP 141/79; PULSE 72; RESP 16; TEMP 36.8; O2SAT 100; BMI 42.0
--- NOTE | 2023-03-23 21:00 | XR_ITS ---
PROCEDURE INFORMATION: Exam: XR Left Knee Exam date and time: 03/23/2023 9:00 PM Age: 53 years old Clinical indication: Injury or trauma; Fall; Swelling (edema); Knee; Left; Additional info: Fall with disformity TECHNIQUE: Imaging protocol: Radiologic exam of the left knee. Views: 3 views. Total images: 3 COMPARISON: CA VENOUS DOPPLER LE LT 12/24/2022 1:37 PM FINDINGS: Bones/joints: No acute fracture, joint dislocation, or joint effusion. No significant degenerative arthropathy. Joint spaces are appropriate for age. No concerning bone lesions or calcifications. Soft tissues: Unremarkable soft tissues. IMPRESSION: Negative left knee.
--- NOTE | 2023-03-23 21:11 | HMH.EDLOEX ---
Discharge Plan Disposition Patient Disposition: Home, Self-Care Chief Complaint: Extremity Injury, Lower Prescriptions Prescriptions: No Action albuterol sulfate 90 mcg/actuation HFA aerosol inhaler See Rx Instructions .Route .COMPLEX Qty: 8.5 12RF Rx Instructions: INHALE 1 PUFF BY MOUTH EVERY 6 HOURS NEEDED FOR SHORTNESS OF BREATH OR WHEEZING duloxetine [Cymbalta] 60 mg capsule,delayed release(DR/EC) 60 mg PO HS Qty: 90 3RF torsemide 20 mg tablet 20 mg PO BID PRN (Reason: edema) Qty: 180 3RF hydroxychloroquine 200 mg tablet 200 mg PO BID Qty: 180 3RF clopidogrel 75 mg tablet 75 mg PO DAILY Qty: 90 3RF losartan 50 mg tablet 50 mg PO BID Qty: 180 0RF carvedilol 6.25 mg tablet 6.25 mg PO BID spironolactone 50 mg tablet 50 mg PO DAILY ropinirole 1 mg tablet 1 mg PO HS Qty: 30 0RF Rx Instructions: administer 1-3 hours before bedtime baclofen 5 mg tablet 5 mg PO TID Qty: 90 0RF cyclobenzaprine 10 mg Tablet 10 mg PO BID PRN (Reason: Muscle Spasm) Qty: 20 0RF warfarin 5 mg tablet 5 mg PO DAILY prednisone 20 mg tablet 20 mg PO BID hydrocodone-acetaminophen 10-325 mg tablet 1 tab PO 5XDAY Qty: 150 0RF pregabalin 100 mg capsule 100 mg PO BID Qty: 60 0RF Referrals Follow up/Referrals: Valentin Daniel MD [Primary Care Provider] - See instructions German Billingsley DO [Staff Physician] - See instructions Clinical Impressions Clinical Impression: Injury of knee, left Instructions Patient Instructions: DI for Knee Pain Discharge ED Provider: Uriah (ED)Arley Lower Extremity Injury HPI General Chief Complaint: Extremity Injury, Lower Stated Complaint: AO 03/23/23 20:00, injury to left knee Time Seen by Provider: 03/23/23 21:00 Mode of Arrival: Wheelchair Source of Information: Patient, Spouse and Medical Record Limitations: No Limitations Description of Symptoms (Recalled from ER Triage Doc. by RN): pt to ED with left knee pain and disformity after her shoe got caught on the sidewalk and she fell forward. pt denies any hip or other pain and reports she is on coumadin and plavix History of Present Illness HPI Narrative: trip injury and hit lt knee with swelling and dec rom - no hip pain - pt on coumadin complaint: knee injury Onset (ago): hour(s) Injury: Left: knee Type of Injury: blunt Place: street/outdoors Severity: moderate Exacerbating factors: weight bearing and movement Context: fall and walking Associated symptoms: swelling and able to partially bear weight Other symptoms: none Related Data Home Medications Medication Instructions Recorded Confirmed carvedilol 6.25 mg tablet 6.25 mg PO BID High blood pressure 09/19/22 03/21/23 spironolactone 50 mg tablet 50 mg PO DAILY High blood pressure 09/19/22 03/21/23 warfarin 5 mg tablet 5 mg PO DAILY Blood thinner 10/24/22 03/21/23 prednisone 20 mg tablet 20 mg PO BID . 02/22/23 03/21/23 Previous Rx's Medication Instructions Recorded albuterol sulfate 90 mcg/actuation See Rx Instructions .Route 06/16/22 aerosol inhaler .COMPLEX Asthma #8.5 grams duloxetine 60 mg capsule,delayed 60 mg PO HS dorsalgias #90 caps 08/07/22 release (Cymbalta) hydroxychloroquine 200 mg tablet 200 mg PO BID LUPUS #180 tabs 08/14/22 torsemide 20 mg tablet 20 mg PO BID PRN edema #180 tabs 08/14/22 clopidogrel 75 mg tablet 75 mg PO DAILY . #90 tabs 11/27/22 cyclobenzaprine 10 mg tablet 10 mg PO BID PRN Muscle Spasm #20 12/24/22 tabs baclofen 5 mg tablet 5 mg PO TID . #90 tabs 01/22/23 ropinirole 1 mg tablet 1 mg PO HS LEGS #30 tabs 01/22/23 hydrocodone 10 mg-acetaminophen 1 tab PO 5XDAY Pain #150 tabs 03/21/23 325 mg tablet pregabalin 100 mg capsule 100 mg PO BID neuropathic pain #60 03/21/23 caps losartan 50 mg tablet 50 mg PO BID High blood pressure 03/22/23 #180 tabs Allergies Allergy/AdvReac Type Severity Reaction Status Date / Time gum mastic Allergy Unkn
[2023-03-23 21:24] LABS: INR 2.24 (0.9-1.1); Prothrombin Time 23.1 seconds (10.1-12.5)
[2023-03-23 21:54] VITALS: BP 139/81; PULSE 76; RESP 16; TEMP 36.8; O2SAT 98
== END 2023-03-23 21:56 | disposition home or self-care (01) ==
PROVIDERS: Emergency Provider Emergency Medicine; PCP Family Medicine
DX: M25.562 Pain in left knee (principal); R22.42 Localized swelling, mass and lump, left lower limb; W01.0XXA Fall on same level from slipping, tripping and stumbling without subsequent striking against object, initial encounter; Z79.01 Long term (current) use of anticoagulants; J45.909 Unspecified asthma, uncomplicated; I10 Essential (primary) hypertension
CPT/HCPCS: 73562; 85610; 99283

== ENCOUNTER → 2023-04-23 08:30 | Outpatient (POV) | payer OTHER, SELFPAY ==
[2023-04-23 08:47] VITALS: BP 135/63; PULSE 67; RESP 18; O2SAT 98; BMI 40.6
--- NOTE | 2023-04-23 08:57 | EXP.PAIN.SOA ---
[facility] Pain Management SOAP Note Subjective:: Patient is a pleasant 53-year-old female who presents today for medication refill and follow-up. We are currently treating the patient for degenerative disc disease of lumbar spine with lumbar radiculopathy symptoms, bilateral sacroiliitis, left leg radicular pains, chronic lupus. Today she rates her pain a 9 out of 10. She states that previously last week she was on her lunch break and was walking when she felt as if her spine had and her legs gave out and she fell. Patient states that she had difficulty getting back up and that even at home her has had to help get her out of bed due to the worsening pain in her low back and weakness in her legs. Patient denies any previous injury or trauma. She does describe this as a sharp shooting pain that radiates down her bilateral legs. Patient does state it interferes with her ability perform activities of daily living such as cooking and cleaning. She states that the pain is debilitating and has been going nonstop since last week. She does take her [place] 10 mg 5 times a day, Lyrica 100 mg twice a day and baclofen 5 mg 3 times a day and she states that with this combination it does cause her to fall asleep and that is the only time she has gotten relief. Patient denies any side effects from these medications. She is on Coumadin therapy and in the past has wanted a epidural injection however she has been unable to come off of her blood thinner in order to do this. Patient did recently have updated x-ray imaging of her lumbar spine back in February. Her Loi is [phone]. Its been reviewed and appropriate. Review of Systems: General: No recent weight changes, no fever, no sleep disturbances Respiratory: No cough, no shortness of air, no recurring pulmonary infections Cardiovascular/peripheral vascular: No chest pain, no palpitations, no edema, no shortness of breath Gastrointestinal: No new onset incontinence, normal bowel movements reported Genitourinary: No new onset incontinence Musculoskeletal: Low back pain, bilateral leg weakness/ pain Psychiatric: [Normal mood/affect] Neurological: [Denies weakness in extremities], [denies balance issues] Objective:: Physical Exam: General: Alert and oriented x3, no acute distress, pleasant and cooperative Lungs: Respirations even and unlabored, symmetrical chest expansion Eyes: PERRL Musculoskeletal: Flexion and extension of lumbar [spine] somewhat guarded secondary to pain, [antalgic gait noted] Neurological: Speech clear, no gross sensory deficit FINAL REPORT CLINICAL HISTORY: Left ankle pain FINDINGS: LEFT ANKLE Three views demonstrate no acute fracture or dislocation. The mortise is intact. No acute soft tissue abnormality is seen. IMPRESSION: No acute process. Reviewed, Interpreted and Dictated by David Bee MD Transcribed by Negra Terrazas Authenticated and [facility] Assessment:: Degenerative disc disease of lumbar spine with lumbar radiculopathy symptoms, bilateral sacroiliitis, left leg radicular pains, chronic lupus Plan:: Patient is experiencing significant pain in her low back with radiating symptoms to her lower extremities. I have counseled the patient that we do need to order updated imaging. Patient is unable to tolerate MRI imaging due to the prolonged positioning and her worsening pain in her legs and spasms. I will order a CT without contrast of her lumbar spine at today's visit. I will also send in a prescription of prednisone 20 mg twice daily for 5 days along with refills on her [place] 10 mg 5 times a day, pregabalin 100 mg twice a day and baclofen 5 mg 3 times a day and provide a 1 month supply of these medications. We will contact the patient once we have insurance approval of her CT without contrast. Patient will follow-up in 2 weeks for reevaluation of symptoms, CT follow-up and andrew
== END | disposition home or self-care (01) ==
PROVIDERS: Visit Provider Nurse Practitioner Family
DX: M51.16 Intervertebral disc disorders with radiculopathy, lumbar region (principal); M46.1 Sacroiliitis, not elsewhere classified; M32.9 Systemic lupus erythematosus, unspecified
CPT/HCPCS: 99212; G0463

== ENCOUNTER → 2023-05-01 06:46 | Outpatient (CLI) | payer OTHER, SELFPAY ==
--- NOTE | 2023-05-01 06:53 | CT_ITS ---
FINAL REPORT TECHNIQUE: Thin section axial images were obtained through the lumbar spine without contrast. Sagittal and coronal reconstruction images were obtained from the axial data. Exam was performed using dose reduction techniques. CLINICAL HISTORY: WORSENING LBP, pain sometimes radiating down legs COMPARISON: None FINDINGS: There is no acute fracture or acute malalignment of the lumbar spine. Vertebral body height is preserved. There is mild multilevel degenerative disease with disc space narrowing and osteophyte formation. L1-2: Annular bulge is present with no canal or neural foraminal narrowing. L2-3: Annular bulge is present with no canal or neural foraminal narrowing. L3-4: Annular bulge is present with mild canal narrowing and moderate bilateral neural foraminal narrowing. L4-5: Annular bulge is present with mild canal narrowing and mild right, moderate left neural foraminal narrowing. The L5-S1 level is unremarkable. Paraspinal soft tissues are within normal limits. There is no paraspinal mass or fluid collection. IMPRESSION: No acute abnormality of the lumbar spine. Mild multilevel degenerative disease. Reviewed, Interpreted and Dictated by Michaela Carlson MD Transcribed by Kelly Masters Authenticated and [facility]
== END ==
PROVIDERS: PCP Family Medicine; Referring Provider Nurse Practitioner Family; Visit Provider Nurse Practitioner Family
DX: M54.50 Low back pain, unspecified (principal)
CPT/HCPCS: 72131

== ENCOUNTER 2023-05-09 07:54 | Outpatient (CLI) | payer OTHER, SELFPAY ==
[2023-05-09 09:26] LABS: PHA INR Fingerstick 3.1 (0.9-1.1)
== END 2023-05-09 09:30 ==
LOC: ACC 07:55
PROVIDERS: PCP Family Medicine; Visit Provider Family Medicine
DX: Z51.81 Encounter for therapeutic drug level monitoring (principal); Z79.01 Long term (current) use of anticoagulants; G45.8 Other transient cerebral ischemic attacks and related syndromes
CPT/HCPCS: 85610; 99211; G0463

== ENCOUNTER → 2023-05-29 14:28 | Outpatient (CLI) | payer OTHER, SELFPAY ==
[2023-05-29 17:07] LABS: Thyroid Stimulating Hormone 0.21 uIU/mL (0.465-4.68)
== END ==
PROVIDERS: PCP Family Medicine; Visit Provider Family Medicine
DX: E66.01 Morbid (severe) obesity due to excess calories (principal); Z68.41 Body mass index [BMI] 40.0-44.9, adult
CPT/HCPCS: 36415; 84443

== ENCOUNTER → 2023-05-31 08:12 | Outpatient (POV) | payer OTHER, SELFPAY ==
[2023-05-31 08:22] VITALS: BP 133/77; PULSE 70; RESP 18; O2SAT 100; BMI 42.5
--- NOTE | 2023-05-31 08:45 | EXP.PAIN.SOA ---
[facility] Pain Management SOAP Note Subjective:: Patient is a pleasant 53-year-old female who presents today for CT follow-up. We are currently treating the patient for degenerative disc disease of lumbar spine with lumbar radiculopathy symptoms, bilateral sacroiliitis, left leg radicular pains, chronic lupus. Today she rates her pain a 5 out of 10. Patient denies any new trauma or injury. She does state that she is back to her regular baseline pain. Patient has done injections in the past that did provide significant relief however she is now on Coumadin and is unable to come off of this medication for these injections. She does state that at this time nothing is changed and that they are worried if she comes off this medication she is at increased risk for stroke. Patient is currently managed with [place] 10 mg 5 times a day, Lyrica 100 mg twice a day and baclofen 5 mg 3 times a day. Patient denies any side effects from these medications. She does state that she typically only takes the baclofen at bedtime due to increased drowsiness. She does state today that she is planning on proceeding forward with a gastric sleeve coming up in October when she has her PTO built up. Patient does believe that the increased weight loss will help take some strain off her back and provide some improvement of her pain. Her Loi is [phone]. Its been reviewed and appropriate. Review of Systems: General: No recent weight changes, no fever, no sleep disturbances Respiratory: No cough, no shortness of air, no recurring pulmonary infections Cardiovascular/peripheral vascular: No chest pain, no palpitations, no edema, no shortness of breath Gastrointestinal: No new onset incontinence, normal bowel movements reported Genitourinary: No new onset incontinence Musculoskeletal: Low back pain, bilateral leg pain Psychiatric: [Normal mood/affect] Neurological: [Denies weakness in extremities], [denies balance issues] Objective:: Physical Exam: General: Alert and oriented x3, no acute distress, pleasant and cooperative Lungs: Respirations even and unlabored, symmetrical chest expansion Eyes: PERRL Musculoskeletal: Flexion and extension of lumbar [spine] somewhat guarded secondary to pain, [antalgic gait noted] Neurological: Speech clear, no gross sensory deficit TECHNIQUE: Thin section axial images were obtained through the lumbar spine without contrast. Sagittal and coronal reconstruction images were obtained from the axial data. Exam was performed using dose reduction techniques. CLINICAL HISTORY: WORSENING LBP, pain sometimes radiating down legs COMPARISON: None FINDINGS: There is no acute fracture or acute malalignment of the lumbar spine. Vertebral body height is preserved. There is mild multilevel degenerative disease with disc space narrowing and osteophyte formation. L1-2: Annular bulge is present with no canal or neural foraminal narrowing. L2-3: Annular bulge is present with no canal or neural foraminal narrowing. L3-4: Annular bulge is present with mild canal narrowing and moderate bilateral neural foraminal narrowing. L4-5: Annular bulge is present with mild canal narrowing and mild right, moderate left neural foraminal narrowing. The L5-S1 level is unremarkable. Paraspinal soft tissues are within normal limits. There is no paraspinal mass or fluid collection. IMPRESSION: No acute abnormality of the lumbar spine. Mild multilevel degenerative disease. Reviewed, Interpreted and Dictated by Michaela Carlson MD Transcribed by Kelly Masters Authenticated and [facility] Assessment:: Degenerative disc disease of lumbar spine with lumbar radiculopathy symptoms, bilateral sacroiliitis, left leg radicular pains, chronic lupus Plan:: Patient continues to experience significant pain in her low back and legs with limited range of motion. I have discussed with her to let us know if a
== END | disposition home or self-care (01) ==
PROVIDERS: PCP Family Medicine; Visit Provider Nurse Practitioner Family
DX: M51.16 Intervertebral disc disorders with radiculopathy, lumbar region (principal); M46.1 Sacroiliitis, not elsewhere classified; M32.9 Systemic lupus erythematosus, unspecified
CPT/HCPCS: 99212; G0463

== ENCOUNTER 2023-06-20 08:00 | Outpatient (CLI) | payer OTHER, SELFPAY ==
[2023-06-20 09:00] LABS: PHA INR Fingerstick 3.4 (0.9-1.1)
== END 2023-06-20 10:43 ==
LOC: ACC 08:00
PROVIDERS: PCP Family Medicine; Visit Provider Family Medicine
DX: Z51.81 Encounter for therapeutic drug level monitoring (principal); Z79.01 Long term (current) use of anticoagulants; G45.8 Other transient cerebral ischemic attacks and related syndromes
CPT/HCPCS: 85610; 99211; G0463

== ENCOUNTER → 2023-06-25 08:21 | Outpatient (POV) | payer OTHER, SELFPAY ==
--- NOTE | 2023-06-25 08:58 | EXP.PAIN.SOA ---
[facility] Pain Management SOAP Note Subjective:: Patient is a pleasant 53-year-old female who presents today for 1 month follow-up and medication refill. We are currently treating the patient for degenerative disc disease of lumbar spine with lumbar radiculopathy symptoms, bilateral sacroiliitis, left leg radicular pains, chronic lupus, neck pain. Today she rates her pain a 3 out of 10. Patient denies any new trauma or injury. Patient states she continues to have significant neck pain as well as low back. Patient is currently on blood thinners and cannot come off of this medication for injective therapy due to risk of stroke. Patient is currently managed with [place] 10 mg 5 times a day, Lyrica 100 mg three times a day and baclofen 5 mg 3 times a day. Patient denies any side effects from this medication she does state that she is still planning on having gastric bypass surgery come 15 October. Her Loi is [phone]. Its been reviewed and appropriate. Review of Systems: General: No recent weight changes, no fever, no sleep disturbances Respiratory: No cough, no shortness of air, no recurring pulmonary infections Cardiovascular/peripheral vascular: No chest pain, no palpitations, no edema, no shortness of breath Gastrointestinal: No new onset incontinence, normal bowel movements reported Genitourinary: No new onset incontinence Musculoskeletal: Low back pain, neck pain Psychiatric: [Normal mood/affect] Neurological: [Denies weakness in extremities], [denies balance issues] Objective:: Physical Exam: General: Alert and oriented x3, no acute distress, pleasant and cooperative Lungs: Respirations even and unlabored, symmetrical chest expansion Eyes: PERRL Musculoskeletal: Flexion and extension of lumbar [spine] somewhat guarded secondary to pain, [antalgic gait noted] Neurological: Speech clear, no gross sensory deficit Assessment:: Degenerative disc disease of lumbar spine with lumbar radiculopathy symptoms, bilateral sacroiliitis, left leg radicular pains, chronic lupus, neck pain Plan:: I will refill the patient's [place] 10 mg 5 times a day, pregabalin 100 mg three times a day and baclofen 5 mg 3 times a day and provide a 1 month supply of this medication. Patient will return to clinic in 1 month for reevaluation of symptoms and plan of care. Patient has been advised of risks of oversedation with the prescribed medication. Narcan has been offered to the patient in the event of oversedation. Patient has been advised that a family member should also be educated regarding administration of Narcan. Patient has been instructed to contact the clinic with any concerns before the next appointment. Dr. Venegas has reviewed this note and agrees with this plan of care. This note was dictated using voice recognition software and make contain errors or omissions. [facility] Disclaimer: The information contained in this section may have been updated after the patient was seen, as this information can be updated by other users. Medical History Asthma Dizziness Edema History of DVT (deep vein thrombosis) History of gastroesophageal reflux (GERD) History of TIA (transient ischemic attack) Hypertension Surgical History History of appendectomy History of section History of cholecystectomy History of hysterectomy Family History Other No significant family history Social History Smoking Status: Never smoker second hand exposure: No alcohol intake: never substance use type: denies use current occupational status: employed Travel in the last 8 weeks: None household members: spouse housing: house caffeine: Yes
[2023-06-25 09:08] VITALS: BP 164/71; PULSE 63; RESP 18; O2SAT 100; BMI 42.2
== END | disposition home or self-care (01) ==
PROVIDERS: PCP Family Medicine; Visit Provider Nurse Practitioner Family
DX: M51.16 Intervertebral disc disorders with radiculopathy, lumbar region (principal); M46.1 Sacroiliitis, not elsewhere classified; M32.9 Systemic lupus erythematosus, unspecified; M54.2 Cervicalgia
CPT/HCPCS: 99212; G0463

== ENCOUNTER 2023-07-09 10:39 | Emergency (ER) | payer OTHER, SELFPAY ==
[2023-07-09 11:05] VITALS: BP 138/78; PULSE 84; RESP 19; TEMP 37; O2SAT 97; BMI 41.8
[2023-07-09 11:26] VITALS: BP 138/78; PULSE 84; RESP 19; TEMP 37; O2SAT 97
--- NOTE | 2023-07-09 11:37 | EXP.UTC ---
Discharge Plan Disposition Patient Disposition: Home, Self-Care Condition: Good Prescriptions Prescriptions: New azithromycin [Zithromax Z-Salazar] 250 mg tablet See Rx Instructions .ROUTE .COMPLEX 5 Days Qty: 6 0RF Rx Instructions: For 250 mg dose pack: take 500 mg today (day 1), then 250 mg for 4 days (days 2-5) guaifenesin [Mucinex] 600 mg tablet extended release 12hr 600 mg PO BID PRN (Reason: cough) Qty: 20 0RF No Action albuterol sulfate 90 mcg/actuation HFA aerosol inhaler See Rx Instructions .Route .COMPLEX Qty: 8.5 12RF Rx Instructions: INHALE 1 PUFF BY MOUTH EVERY 6 HOURS NEEDED FOR SHORTNESS OF BREATH OR WHEEZING duloxetine [Cymbalta] 60 mg capsule,delayed release(DR/EC) 60 mg PO HS Qty: 90 3RF torsemide 20 mg tablet 20 mg PO BID PRN (Reason: edema) Qty: 180 3RF hydroxychloroquine 200 mg tablet 200 mg PO BID Qty: 180 3RF clopidogrel 75 mg tablet 75 mg PO DAILY Qty: 90 3RF carvedilol 6.25 mg tablet 6.25 mg PO BID spironolactone 50 mg tablet 50 mg PO DAILY ropinirole 1 mg tablet 1 mg PO HS Qty: 30 0RF Rx Instructions: administer 1-3 hours before bedtime cyclobenzaprine 10 mg Tablet 10 mg PO BID PRN (Reason: Muscle Spasm) Qty: 20 0RF losartan 50 mg tablet See Rx Instructions .ROUTE .COMPLEX Rx Instructions: TAKE 1 TABLET TWICE A DAY FOR HIGH BLOOD PRESSURE pregabalin 100 mg capsule 100 mg PO TID Qty: 90 0RF baclofen 5 mg tablet 5 mg PO TID Qty: 90 0RF hydrocodone-acetaminophen 7.5-325 mg tablet 1 tab PO .6x Qty: 180 0RF warfarin 5 mg tablet 5 mg PO DAILY Referrals Follow up/Referrals: Valentin Daniel MD [Primary Care Provider] - See instructions Activity Restrictions/Add. Instructions Additional Instructions/Restrictions: Start antibiotic today. Be sure to complete entire prescription even if feeling better Monitor temp. Tylenol every 4 hours as needed and / or ibuprofen every 6 hours as needed ( As long as your primary care physician has told you that it ok to take both. For fever/aches/pains ER if no less than 101 despite Tylenol or Motrin Humidifier/vaporizer or hot steamy shower Inhaler every 4-6 hours as needed like we discussed. If unsure how to use it, ask pharmacist to demonstrate how. Should help open airways and improve cough, wheezing, and shortness of breath Mucinex during the day for your cough and cough suppressant only at night. Be sure to drink lots of water. Insurance may not cover a prescriptions for mucinex. Might be cheaper to get 400mg tablets and take 2 tablet in the morning, mid-day and evening with lots of water. *Promethazine DM cough syrup will cause drowsiness. Use only at night. No driving, operating machinery or caring for small children after taking it *Tessalon Perles will not cause drowsiness but use at bedtime to help stop cough so that you may get some rest. *Start steroid today. Helps with inflammation therefore, cough and wheezing. Follow directions on the package. Reviewed side effects. Patient reports taking them before. Follow up IMMEDIATELY for new or worsening of symptoms OR no noticeable improvement over the next 48-72 hours. 911 immediately for any life threatening symptoms such as chest pain or difficulty breathing Clinical Impressions Clinical Impression: Bronchitis Stand Alone Forms Stand Alone Forms: Work/School Release Instructions Patient Instructions: Acute Bronchitis, DI for Sinusitis Discharge ED Provider: Edith Guzman [facility] General Stated complaint: lung pain, cough Mode of Arrival: Ambulatory Source of Information: Patient Limitations: No Limitations Time Seen by Provider: 07/09/23 11:43 Description of Symptoms (Recalled from Triage Doc. by RN): PATIENT C/O COUGH, MALAISE, AND BURNING PAIN WITH BREATHING SINCE SUNDAY HERAMOS
== END 2023-07-09 12:15 | disposition home or self-care (01) ==
PROVIDERS: Emergency Provider Nurse Practitioner; PCP Family Medicine
DX: J20.9 Acute bronchitis, unspecified (principal); I10 Essential (primary) hypertension; J45.909 Unspecified asthma, uncomplicated
CPT/HCPCS: 96372; 99212; 99214; G0463

== ENCOUNTER 2023-07-16 11:18 | Outpatient (CLI) | payer OTHER, SELFPAY | END 2023-07-16 16:24 | LOC: ACC 11:18 | PROVIDERS: PCP Family Medicine; Visit Provider Family Medicine | DX: Z51.81 Encounter for therapeutic drug level monitoring (principal); Z79.01 Long term (current) use of anticoagulants; G45.9 Transient cerebral ischemic attack, unspecified | CPT/HCPCS: 85610; 99211; G0463 ==

== ENCOUNTER 2023-07-17 12:59 | Emergency (ER) | payer OTHER, SELFPAY ==
[2023-07-17] VITALS (10 sets, daily range): BP systolic 128–160; BP diastolic 54–100; PULSE 72–721; RESP 14–25; TEMP 37.3; O2SAT 90–100; BMI 41.6
--- NOTE | 2023-07-17 13:41 | CT_ITS ---
FINAL REPORT CLINICAL HISTORY: cape-like numbness and weakness COMPARISON: September 2022 FINDINGS: CT CERVICAL SPINE Axial CT images were performed through the cervical spine. Coronal and sagittal reformats were submitted and reviewed. This study was performed with techniques to keep radiation doses as low as reasonably achievable (ALARA). Individualized dose reduction techniques using automated exposure control or adjustment of mA and/or kV according to the patient's size were employed. 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 There is no acute fracture or subluxation. The vertebral alignment is normal. The prevertebral soft tissues are unremarkable. No significant spinal or neural foraminal canal stenosis is seen. There are moderate degenerative changes with multilevel osteophytes. Facet arthropathy is greatest on the left at C3-C4.. The facets are normally aligned. Limited images of the lung apices are unremarkable. There is stable enlargement of the left lobe of the thyroid. IMPRESSION: No acute fracture. Reviewed, Interpreted and Dictated by Mundo Horowitz III, MD Transcribed by Ron Coats Authenticated and [facility]
--- NOTE | 2023-07-17 13:41 | CT_ITS ---
FINAL REPORT CLINICAL HISTORY: L sided numbness, patchy, on warfarin COMPARISON: September 2022 FINDINGS: Axial images of the head were obtained without contrast. Coronal reformatted images were also obtained.This study was performed with techniques to keep radiation doses as low as reasonably achievable (ALARA). Individualized dose reduction techniques using automated exposure control or adjustment of mA and/or kV according to the patient''s size were employed. There is no evidence of intracranial hemorrhage or mass. The ventricular size is within normal limits. There is no evidence of shift of the midline structures. No abnormal extra axial fluid collection is identified. No skull abnormality is seen on the bone window images. IMPRESSION: No acute intracranial abnormality. Reviewed, Interpreted and Dictated by Mundo Horowitz III, MD Transcribed by Ron Coats Authenticated and [facility]
--- NOTE | 2023-07-17 13:41 | XR_ITS ---
FINAL REPORT CLINICAL HISTORY: cehst pressure FINDINGS: The heart size is normal. The mediastinum is within normal limits. There is no acute cardiopulmonary process. There is no pleural effusion. There is no pneumothorax. The bony thorax is intact. IMPRESSION: No acute cardiopulmonary process. Reviewed, Interpreted and Dictated by Mundo Horowitz III, MD Transcribed by Ron Coats Authenticated and . [facility]
--- NOTE | 2023-07-17 13:45 | HMH.EDGENADL ---
Discharge Plan Disposition Patient Disposition: Home, Self-Care Condition: Good Prescriptions Prescriptions: No Action duloxetine [Cymbalta] 60 mg capsule,delayed release(DR/EC) 60 mg PO HS Qty: 90 3RF carvedilol 6.25 mg tablet 6.25 mg PO BID spironolactone 50 mg tablet 50 mg PO DAILY losartan 50 mg tablet 50 mg PO DAILY Rx Instructions: TAKE 1 TABLET TWICE A DAY FOR HIGH BLOOD PRESSURE albuterol sulfate 90 mcg/actuation HFA aerosol inhaler 1 puff inhalation Q6HP PRN (Reason: Shortness Of Breath) Rx Instructions: INHALE 1 PUFF BY MOUTH EVERY 6 HOURS NEEDED FOR SHORTNESS OF BREATH OR WHEEZING baclofen 5 mg tablet 5 mg PO TID hydrocodone-acetaminophen 7.5-325 mg tablet 1 tab PO Q4HP PRN (Reason: Pain) pregabalin 100 mg capsule 100 mg PO TID guaifenesin [Mucinex] 600 mg tablet extended release 12hr 600 mg PO BIDP PRN (Reason: cough) warfarin 2 mg Tablet 2 mg PO FR torsemide 20 mg tablet 20 mg PO BIDP PRN (Reason: edema) hydroxychloroquine 200 mg tablet 200 mg PO BID clopidogrel 75 mg tablet 75 mg PO DAILY warfarin 5 mg tablet 2.5 mg PO SUMOTUWETHSA Referrals Follow up/Referrals: Rachel Estrada MD [Staff Physician] - See instructions Valentin Daniel MD [Primary Care Provider] - See instructions Activity Restrictions/Add. Instructions Additional Instructions/Restrictions: Please return to the emergency department if you experience any new or worsening symptoms. I have placed a referral for you to follow-up with a neurologist. Please follow-up with your curam developer as well. Clinical Impressions Clinical Impression: Acute hypokalemia, Paresthesias Discharge ED Provider: Francois Hassan General Adult HPI <Pratik Patel MD - Last Filed: 07/17/23 15:51> General Chief complaint: Neuro Symptoms/Deficit Stated complaint: body numbness waist up Time Seen by Provider: 07/17/23 13:09 Mode of Arrival: Ambulatory Source of Information: Patient Limitations: No Limitations Description of Symptoms (Recalled from ER Triage Doc. by RN): Presents to Ed with c/o numbness and tingling from the waist up. Patient reports this began at 1030 that started in her neck and shoulders and progress down her arms to her waist. Denies bowel or bladder incontinence. Denies vision problems. History of Present Illness HPI narrative: 53-year-old female with history of hypertension, SLE, APLS currently on warfarin with goal INR 2.5-3.5 presenting with numbness to her chest and arms. Patient states that earlier this morning, she started having numbness in a collar like distribution around her neck. Has since spread to both arms, down her back, up into her scalp and face. Denies any like this in the past. Denies any head or neck trauma. No lower extremity symptoms. No overt chest pain, but has had chest pressure. Denies shortness of breath, dyspnea, diaphoresis, nausea or vomiting, fevers or chills, or any other concerns. Arms are not weak, just heavy and states that it is taking more effort to do the things she needs to do. Last INR was taken at PCPs office 1 day prior to arrival and was 3.0. Related Data Home Medications Medication Instructions Recorded Confirmed carvedilol 6.25 mg tablet 6.25 mg PO BID High blood pressure 09/19/22 07/16/23 spironolactone 50 mg tablet 50 mg PO DAILY High blood pressure 09/19/22 07/16/23 warfarin 5 mg tablet 2.5 mg PO SUMOTUWETHSA Blood 10/24/22 07/16/23 thinner losartan 50 mg tablet 50 mg PO DAILY Hypertension 05/31/23 07/16/23 albuterol sulfate 90 mcg/actuation 1 puff inhalation Q6HP PRN 07/16/23 07/16/23 aerosol inhaler Shortness Of Breath baclofen 5 mg tablet 5 mg PO TID MUSCLE SPASMS 07/16/23 07/16/23 clopidogrel 75 mg tablet 75 mg PO DAILY Blood Thinner 07/16/23 07/16/23 guaifenesin 600 mg tablet, 600 mg PO BIDP PRN cough 07/16/23 07/16/23 extended release 12 hr (Mucinex) hydrocodone 7.5 mg-ac
--- NOTE | 2023-07-17 13:48 | ECG_ITS ---
APPROVED REPORT Exam: Resting ECG HR:75 bpm ECG Measurements Heart Rate 75 AXES AZ 170 P 43 QRSd 92 QRS 63 QT 397 T 44 QTc 426 Conclusion SINUS RHYTHM NORMAL ECG UNCONFIRMED REPORT Electronically signed by : Genaro Lucia MD 07/18/2023 08:48:30
--- NOTE | 2023-07-17 13:48 | PC.NURSE ---
Pillow provided to patient and lights dimmed.Call light within reach of patient
--- NOTE | 2023-07-17 14:10 | PC.NURSE ---
PT TO CT
[2023-07-17 14:11] LABS: Basophils # 0.1 K/mm3 (0-0.2); Basophils % 0.7 % (0.1-2.0); Eosinophils # 0.2 K/mm3 (0.0-0.4); Eosinophils % 2.2 % (0.1-12.0); Hematocrit 35.7 % (37.0-47.0); Hemoglobin 11.2 g/dL (12.2-16.2); Lymphocytes # 3.1 K/mm3 (0.7-4.5); Lymphocytes % 29.5 % (10-50); Mean Corpuscular HGB Conc 31.3 g/dL (31.8-35.4); Mean Corpuscular Hemoglobin 23.8 pg (27.0-31.2); Mean Platelet Volume 8.7 fl (7.4-10.4); Monocytes # 0.6 K/mm3 (0.1-1.0); Monocytes % 5.2 % (1.7-9.3); Neutrophils # 6.6 K/mm3 (1.8-7.8); Neutrophils % 62.4 % (37.0-80.0); Platelet Count 527 K/mm3 (142-424); Red Cell Distribution Width 15.9 % (11.5-17.5); White Blood Count 10.5 K/mm3 (4.8-10.8)
--- NOTE | 2023-07-17 14:23 | PC.NURSE ---
PT RETURNED FROM XR
[2023-07-17 14:32] LABS: Alanine Aminotransferase 34 U/L (12-78); Albumin Level 4.1 g/dl (3.5-5.0); Albumin/Globulin Ratio 1.2 (1.1-1.8); Alkaline Phosphatase 73 U/L (38-126); Aspartate Amino Transferase 35 U/L (14-36); Bilirubin,Total 0.2 mg/dl (0.2-1.3); Blood Urea Nitrogen 10 mg/dl (7-17); Calcium 8.3 mg/dl (8.4-10.2); Carbon Dioxide 37 mmol/L (22.0-30.0); Chloride 96 mmol/L (98-107); Creatinine Clearance Estimated 78 mL/min (50-200); Estimated Glomerular Filt Rate 88 ml/min (>60); GFR (African American) 106 ML/MIN (>60); Globulin 3.5 g/dL (1.3-3.2); Glucose 102 mg/dl (74-100); INR 3.36 (0.9-1.1); Lipase 89 U/L (23-300); Prothrombin Time 33.5 seconds (10.1-12.5); Sodium 141 mmol/L (136-145); Total Protein,Serum 7.6 g/dl (6.3-8.2)
--- NOTE | 2023-07-17 14:36 | PC.NURSE ---
Zeb from lab called critical on patient. Potassium 3.0, repeated and confirmed
[2023-07-17 14:37] LABS: Erythrocyte Sedimentation Rate 25 mm/hr (0-30)
[2023-07-17 14:47] LABS: Troponin I < 0.01 ng/ml (0.00-0.034)
[2023-07-17 14:49] LABS: Procalcitonin 0.038 ng/mL (0.0-2.0)
--- NOTE | 2023-07-17 14:55 | PC.NURSE ---
Rounded on patient; nothing needed a this time. Call light within reach of patient
--- NOTE | 2023-07-17 16:00 | PC.NURSE ---
PT UPDATED AT THIS TIME AND MEAL PROVIDED PER MD ORDER. CALL LIGHT WITHIN REACH
--- NOTE | 2023-07-17 16:55 | PC.NURSE ---
DR PADILLA AT BEDSIDE
== END 2023-07-17 17:03 | disposition home or self-care (01) ==
PROVIDERS: Emergency Medicine; Emergency Provider Emergency Medicine; PCP Family Medicine
DX: E87.6 Hypokalemia (principal); R20.2 Paresthesia of skin; I10 Essential (primary) hypertension; M32.9 Systemic lupus erythematosus, unspecified; D68.61 Antiphospholipid syndrome; K21.9 Gastro-esophageal reflux disease without esophagitis; Z86.73 Personal history of transient ischemic attack (TIA), and cerebral infarction without residual deficits
CPT/HCPCS: 70450; 71045; 72125; 80053; 83690; 84145; 84484; 85025; 85610; 85651; 93005; 99285

== ENCOUNTER → 2023-07-27 08:09 | Outpatient (POV) | payer OTHER, SELFPAY ==
[2023-07-27 08:19] VITALS: BP 157/68; PULSE 89; RESP 20; BMI 42.5
--- NOTE | 2023-08-24 12:17 | A.OFFVIS_ITS ---
[facility] Pain Management SOAP Note Subjective:: This patient is a very pleasant 53-year-old female comes our clinic today for medication refills and evaluation. Were currently treating the patient for degenerative disc disease lumbar spine multilevels. Lumbar radiculopathy. Bilateral sacroiliitis. Chronic lupus. Cervical neck pain. She rates her pain today 4/10. Patient is currently being managed with [place] 7.5 mg 1 p.o. 5 times daily. Lyrica 100 mg 1 p.o. 3 times daily. Baclofen 5 mg 1 p.o. 3 times daily. Patient reports medication is helping significantly in terms of her overall pain level. Patient reports pain medicine helps with overall activities and completing ADLs. Patient does not report any side effects from the pain medication. Patient's main complaint is low back pain as well as bilateral hip and leg radicular symptoms at times. Chronic lupus pain. Assessment:: Degenerative disc sees lumbar spine multilevels. Lumbar radiculopathy. Chronic cervical neck pain. Bilateral sacroiliitis. Chronic lupus pain. Plan:: I will refill the patient's pain medication [place] 7.5 mg 1 p.o. 5 times daily. Lyrica 100 mg 1 p.o. 3 times daily. Baclofen 5 mg 1 p.o. 3 times daily. Patient will return to see us in 30 days. Patient's Loi and UDS have been appropriate. [facility] Disclaimer: The information contained in this section may have been updated after the patient was seen, as this information can be updated by other users. Medical History (Updated 08/15/23 @ 15:15 by ROLANDO [place]) Asthma Dizziness Edema Encounter for pre-operative cardiovascular clearance History of DVT (deep vein thrombosis) History of gastroesophageal reflux (GERD) History of TIA (transient ischemic attack) Hypertension Lesion of nose Surgical History History of appendectomy History of section History of cholecystectomy History of hysterectomy Family History Other No significant family history Social History Smoking Status: Never smoker second hand exposure: No alcohol intake: never substance use type: denies use current occupational status: employed Travel in the last 8 weeks: None household members: spouse housing: house caffeine: Yes
== END | disposition home or self-care (01) ==
PROVIDERS: PCP Physician Assistant; Visit Provider Nurse Practitioner Family
DX: M51.16 Intervertebral disc disorders with radiculopathy, lumbar region (principal); M54.2 Cervicalgia; G89.29 Other chronic pain; M46.1 Sacroiliitis, not elsewhere classified; M32.9 Systemic lupus erythematosus, unspecified
CPT/HCPCS: 99212; G0463

== ENCOUNTER → 2023-07-27 10:54 | Outpatient (CLI) | payer OTHER, SELFPAY ==
[2023-07-27 12:11] LABS: Amphetamine/Metha Screen,Urine Negative ng/ml (<1000); Barbiturates Screen,Urine Negative ng/ml (<200)
[2023-07-27 12:12] LABS: Benzodiazepines Screen,Urine Negative ng/ml (<200)
[2023-07-27 12:13] LABS: Cannabinoid Screen,Urine Negative ng/ml (<50)
[2023-07-27 12:14] LABS: Cocaine Screen,Urine Negative ng/ml (<300)
[2023-07-27 12:15] LABS: Methadone Screen,Urine Negative ng/ml (<300)
[2023-07-27 12:16] LABS: Opiate Screen,Urine Positive ng/ml (<300); Phencyclidine Screen,Urine Negative ng/ml (<25)
[2023-08-01 15:33] LABS: Codeine Negative (Cutoff=100); Hydrocodone Positive (.); Hydromorphone Positive (.); Morphine Negative (Cutoff=100); Opiates Positive (.)
== END ==
LOC: LAB 10:54
PROVIDERS: PCP Physician Assistant; Visit Provider Nurse Practitioner Family
DX: Z79.891 Long term (current) use of opiate analgesic (principal); Z79.899 Other long term (current) drug therapy
CPT/HCPCS: 80305; 80361; 80365; G0480

== ENCOUNTER → 2023-08-24 08:30 | Outpatient (POV) | payer OTHER, SELFPAY ==
[2023-08-24 09:51] VITALS: BP 147/73; PULSE 76; RESP 18; O2SAT 99
--- NOTE | 2023-08-24 10:26 | A.OFFVIS_ITS ---
[facility] Pain Management SOAP Note Subjective:: This patient is a very pleasant 53-year-old female comes our clinic today for 1 month follow-up regarding medication refills. Patient currently being managed with oral medications for chronic low back pain as well as bilateral hip and leg pain secondary to degenerative disc disease lumbar spine multilevels. Lumbar radiculopathy. Chronic lupus. Chronic cervical neck pain. Patient is on chronic coagulopathy. We currently manage the patient with [place] 10 mg 1 p.o. 5 times daily. Lyrica 100 mg 1 p.o. twice daily. Baclofen 5 mg 1 p.o. 3 times daily. Patient reports the medications decrease her pain by 50 to 75%. She does not report any side effects from the pain medication. Patient's Loi #[id number] has been reviewed and appropriate. Patient reports the majority of her pain is low back hip and leg bilaterally. Objective:: Patient is awake alert [place] x3. In no acute distress. Flexion-extension cervical lumbar spine guarded secondary to pain. Deep tendon reflexes upper and lower extremities normal. Motor strength upper lower extremities normal. There is no gross sensory deficit. Gait is normal. Assessment:: Degenerative disc lumbar spine multilevels. Lumbar radiculopathy. Chronic lupus. Chronic cervical neck pain. Plan:: I will refill the patient's [place] 10 mg 1 p.o. 5 times daily. Lyrica 100 mg 1 p.o. 3 times daily. Baclofen 5 mg 1 p.o. 3 times daily. She will return to see us in [address] [facility] Disclaimer: The information contained in this section may have been updated after the patient was seen, as this information can be updated by other users. Medical History (Updated 08/15/23 @ 15:15 by ROLANDO [place]) Asthma Dizziness Edema Encounter for pre-operative cardiovascular clearance History of DVT (deep vein thrombosis) History of gastroesophageal reflux (GERD) History of TIA (transient ischemic attack) Hypertension Lesion of nose Surgical History History of appendectomy History of section History of cholecystectomy History of hysterectomy Family History Other No significant family history Social History Smoking Status: Never smoker second hand exposure: No alcohol intake: never substance use type: denies use current occupational status: employed Travel in the last 8 weeks: None household members: spouse housing: house caffeine: Yes
== END | disposition home or self-care (01) ==
PROVIDERS: PCP Physician Assistant; Visit Provider Nurse Anesthetist, Certified Registered
DX: M51.16 Intervertebral disc disorders with radiculopathy, lumbar region (principal); M32.9 Systemic lupus erythematosus, unspecified; M54.2 Cervicalgia; G89.29 Other chronic pain
CPT/HCPCS: 99212; G0463

== ENCOUNTER 2023-08-27 08:01 | Outpatient (CLI) | payer OTHER, SELFPAY ==
[2023-08-27 09:06] LABS: PHA INR Fingerstick 2.7 (0.9-1.1)
== END 2023-08-27 09:07 ==
LOC: ACC 08:02
PROVIDERS: PCP Physician Assistant; Visit Provider Family Medicine
DX: Z51.81 Encounter for therapeutic drug level monitoring (principal); Z79.01 Long term (current) use of anticoagulants; G45.8 Other transient cerebral ischemic attacks and related syndromes
CPT/HCPCS: 85610; 99211; G0463

== ENCOUNTER 2023-09-17 08:02 | Outpatient (CLI) | payer OTHER, SELFPAY ==
[2023-09-17 12:18] LABS: PHA INR Fingerstick 1.4 (0.9-1.1)
== END 2023-09-17 12:48 ==
LOC: ACC 08:03
PROVIDERS: PCP Physician Assistant; Visit Provider Family Medicine
DX: Z51.81 Encounter for therapeutic drug level monitoring (principal); Z79.01 Long term (current) use of anticoagulants; G45.9 Transient cerebral ischemic attack, unspecified
CPT/HCPCS: 85610; 99211; G0463

== ENCOUNTER → 2023-09-20 08:03 | Outpatient (CLI) | payer OTHER, SELFPAY ==
--- NOTE | 2023-09-20 08:33 | XR_ITS ---
FINAL REPORT CLINICAL HISTORY: pna right base COMPARISON: 07/17/2023 FINDINGS: Two views of the chest were obtained. The heart size and pulmonary vascularity are within normal limits. The mediastinum is normal. There is a persistent right base opacity, when compared to the prior exam, atelectasis or pneumonia. There is no pneumothorax. The bony thorax is intact. IMPRESSION: Persistent right base opacity, atelectasis or pneumonia. Reviewed, Interpreted and Dictated by Mundo Horowitz III, MD Transcribed by Kelly Masters Authenticated and [facility]
[2023-09-20 08:47] LABS: Basophils # 0.1 K/mm3 (0-0.2); Basophils % 0.8 % (0.1-2.0); Eosinophils # 0.3 K/mm3 (0.0-0.4); Eosinophils % 3.9 % (0.1-12.0); Hematocrit 32.9 % (37.0-47.0); Hemoglobin 10.4 g/dL (12.2-16.2); Lymphocytes # 2.6 K/mm3 (0.7-4.5); Lymphocytes % 36.4 % (10-50); Mean Corpuscular HGB Conc 31.6 g/dL (31.8-35.4); Mean Corpuscular Hemoglobin 24.8 pg (27.0-31.2); Mean Corpuscular Volume 78.6 fl (81-99); Mean Platelet Volume 7.5 fl (7.4-10.4); Monocytes # 0.2 K/mm3 (0.1-1.0); Monocytes % 2.9 % (1.7-9.3); Neutrophils # 4.1 K/mm3 (1.8-7.8); Platelet Count 377 K/mm3 (142-424); Red Blood Count 4.18 M/mm3 (4.20-5.40); Red Cell Distribution Width 15.7 % (11.5-17.5); White Blood Count 7.2 K/mm3 (4.8-10.8)
[2023-09-20 08:56] LABS: Activated Partial Thrombo Time 28.2 seconds (22.8-30.6); Prothrombin Time 23.5 seconds (10.1-12.5)
[2023-09-20 09:28] LABS: Chloride 96 mmol/L (98-107)
[2023-09-20 09:29] LABS: Sodium 137 mmol/L (136-145)
[2023-09-20 09:31] LABS: Alanine Aminotransferase 34 U/L (12-78); Alkaline Phosphatase 91 U/L (38-126); Aspartate Amino Transferase 32 U/L (14-36); Bilirubin,Total 0.3 mg/dl (0.2-1.3); Blood Urea Nitrogen 9 mg/dl (7-17); Estimated Glomerular Filt Rate 105 ml/min (>60); GFR (African American) 127 ML/MIN (>60)
[2023-09-20 09:32] LABS: Albumin Level 4.3 g/dl (3.5-5.0); Albumin/Globulin Ratio 1.5 (1.1-1.8); Calcium 8.6 mg/dl (8.4-10.2); Carbon Dioxide 32 mmol/L (22.0-30.0); Globulin 2.9 g/dL (1.3-3.2); Glucose 94 mg/dl (74-100); Total Protein,Serum 7.2 g/dl (6.3-8.2)
[2023-09-20 09:33] LABS: Iron 34 ug/dL (37-170)
[2023-09-20 10:08] LABS: Ferritin 9.64 ng/ml (11.1-264)
[2023-09-20 11:24] LABS: Total Iron Binding Capacity 508 ug/dL (265-497)
[2023-10-02 23:43] LABS: Nicotine <1.0
[2023-10-02 23:44] LABS: Cotinine <1.0
== END ==
PROVIDERS: Internal Medicine Medical Oncology; PCP Physician Assistant; Visit Provider Surgery
DX: J18.9 Pneumonia, unspecified organism (principal); E66.01 Morbid (severe) obesity due to excess calories; K21.9 Gastro-esophageal reflux disease without esophagitis; K44.9 Diaphragmatic hernia without obstruction or gangrene; Z01.818 Encounter for other preprocedural examination; D50.9 Iron deficiency anemia, unspecified; Z79.899 Other long term (current) drug therapy; Z68.39 Body mass index [BMI] 39.0-39.9, adult
CPT/HCPCS: 36415; 71046; 80053; 80323; 82728; 83540; 83550; 85025; 85610; 85730

== ENCOUNTER → 2023-09-20 08:46 | Outpatient (POV) | payer OTHER, SELFPAY ==
[2023-09-20 09:15] VITALS: BP 135/69; PULSE 69; RESP 18; O2SAT 98; BMI 42.5
--- NOTE | 2023-09-20 09:28 | EXP.PAIN.SOA ---
[facility] Pain Management SOAP Note Subjective:: Patient is a pleasant 53-year-old female who presents today for 1 month follow-up and medication refill. We are currently treating the patient for degenerative disc disease of lumbar spine with lumbar radiculopathy symptoms, bilateral sacroiliitis, chronic lupus, restless leg syndrome. Today she rates her pain a 4 out of 10. Patient denies any new trauma or injury. She does state over the last week or so she has had worse pain and does believe it is possibly related to the cold and damp weather. Patient is currently managed with [place] 7.5 mg 6 times a day, Lyrica 100 mg 3 times a day baclofen 5 mg 3 times a day and ropinirole 1 mg at bedtime. Patient denies any side effects from these medications. She states she does not need any refills on her baclofen. Patient was previously on Dup[place] 10 mg 5 times a day however due to shortages at pharmacies she was unable to get the 10 mg and was changed to the 7.5 mg. patient does state that she has noticed more leg cramps at night. Patient does also have compounding cream that helps some with her pain. Her Loi has been reviewed and is appropriate. Review of Systems: General: No recent weight changes, no fever, no sleep disturbances Respiratory: No cough, no shortness of air, no recurring pulmonary infections Cardiovascular/peripheral vascular: No chest pain, no palpitations, no edema, no shortness of breath Gastrointestinal: No new onset incontinence, normal bowel movements reported Genitourinary: No new onset incontinence Musculoskeletal: Low back pain Psychiatric: [Normal mood/affect] Neurological: [Denies weakness in extremities], [denies balance issues] Objective:: Physical Exam: General: Alert and oriented x3, no acute distress, pleasant and cooperative Lungs: Respirations even and unlabored, symmetrical chest expansion Eyes: PERRL Musculoskeletal: Flexion and extension of lumbar [spine] somewhat guarded secondary to pain, [antalgic gait noted] Neurological: Speech clear, no gross sensory deficit Assessment:: Degenerative disc disease of lumbar spine with lumbar radiculopathy symptoms, bilateral sacroiliitis, chronic lupus, cervical neck pain, restless leg syndrome Plan:: I will refill the patient's [place] 7.5 mg 5 times a day and Lyrica 100 mg 3 times a day and provide a 1 month supply of this medication. I will also increase her ropinirole to 2 mg at bedtime and provide a 1 month supply of this medication. Patient will return to clinic in 1 month for reevaluation of symptoms and plan of care. Patient has been advised of risks of oversedation with the prescribed medication. Narcan has been offered to the patient in the event of oversedation. Patient has been advised that a family member should also be educated regarding administration of Narcan. Patient has been instructed to contact the clinic with any concerns before the next appointment. Dr. Venegas has reviewed this note and agrees with this plan of care. This note was dictated using voice recognition software and make contain errors or omissions. [facility] Disclaimer: The information contained in this section may have been updated after the patient was seen, as this information can be updated by other users. Medical History Asthma Dizziness Edema Encounter for pre-operative cardiovascular clearance History of DVT (deep vein thrombosis) History of gastroesophageal reflux (GERD) History of TIA (transient ischemic attack) Hypertension Lesion of nose Surgical History History of appendectomy History of section History of cholecystectomy History of hysterectomy Family History Other No significant family history Social History Smoking Status: Never smoker [place]
== END ==
LOC: SC.PAIN 08:46
PROVIDERS: PCP Physician Assistant; Visit Provider Nurse Practitioner Family
DX: M51.16 Intervertebral disc disorders with radiculopathy, lumbar region (principal); M46.1 Sacroiliitis, not elsewhere classified; M32.9 Systemic lupus erythematosus, unspecified; M54.2 Cervicalgia; G25.81 Restless legs syndrome
CPT/HCPCS: 99212; G0463

== ENCOUNTER 2023-09-24 13:20 | Outpatient (CLI) | payer OTHER, SELFPAY ==
--- NOTE | 2023-09-24 13:36 | PC.NURSE ---
1336-COLLECTED LABS VIA VENIPUNCTURE STICK WITH BUTTERFLY NEEDLE IN RIGHT AC;PT D/C HOME
== END 2023-09-24 13:36 | disposition home or self-care (01) ==
LOC: INF 13:21
PROVIDERS: PCP Physician Assistant; Visit Provider Internal Medicine Medical Oncology
DX: D50.9 Iron deficiency anemia, unspecified (principal); Z51.81 Encounter for therapeutic drug level monitoring; Z79.01 Long term (current) use of anticoagulants
CPT/HCPCS: 36415

== ENCOUNTER 2023-10-01 15:12 | Outpatient (CLI) | payer OTHER, SELFPAY ==
[2023-10-01 15:34] VITALS: BP 139/70; PULSE 73; RESP 18; O2SAT 100
[2023-10-01 16:12] VITALS: BP 140/59; PULSE 71; RESP 18; O2SAT 100
== END 2023-10-01 16:12 | disposition home or self-care (01) ==
LOC: INF 15:13
PROVIDERS: PCP Physician Assistant; Visit Provider Internal Medicine Medical Oncology
DX: D50.8 Other iron deficiency anemias (principal); T45.4X5A Adverse effect of iron and its compounds, initial encounter
CPT/HCPCS: 96365; J1756

== ENCOUNTER 2023-10-04 15:08 | Outpatient (CLI) | payer OTHER, SELFPAY ==
[2023-10-04] MEDS: SODIUM CHLORIDE 0.9% 50ML BAG 50 ML IV (15:24)
[2023-10-04] MEDS: IRON SUCROSE COMPLEX 200 MG in 0.9 % SODIUM CHLORIDE 100 ML 220 MG IV (15:24)
[2023-10-04 15:25] VITALS: BP 128/73; PULSE 71; RESP 18; TEMP 36.5; O2SAT 100
[2023-10-04] MEDS: SODIUM CHLORIDE 0.9% 10ML FLUSH SYRINGE 10 ML IV (15:25)
--- NOTE | 2023-10-04 15:45 | PC.NURSE ---
Alex Willson-Pharm D with pt performing scheduled coumadin clinic visit and checking pt/inr level.
[2023-10-04 16:16] VITALS: BP 136/69; PULSE 71; RESP 18; O2SAT 100
[2023-10-04 16:27] LABS: PHA INR Fingerstick 3.6 (0.9-1.1)
== END 2023-10-04 16:22 | disposition home or self-care (01) ==
PROVIDERS: PCP Physician Assistant; Visit Provider Internal Medicine Medical Oncology
DX: D50.9 Iron deficiency anemia, unspecified (principal); Z51.81 Encounter for therapeutic drug level monitoring; Z79.01 Long term (current) use of anticoagulants
CPT/HCPCS: 85610; 96365; 99211; G0463; J1756

== ENCOUNTER 2023-10-09 12:15 | Outpatient (CLI) | payer OTHER, SELFPAY ==
--- NOTE | 2023-10-09 12:30 | PC.NURSE ---
1230-collected labs via venipuncture stick with butterfly needle in left hand.took specimens to lab and handed them to garrett ortega.
--- NOTE | 2023-10-09 12:32 | XR_ITS ---
FINAL REPORT TECHNIQUE: Chest PA & Lateral CLINICAL HISTORY: pneumonia COMPARISON: 09/20/2023 FINDINGS: 2 views of the chest were performed. The heart size is normal. The mediastinum is within normal limits. There is no acute cardiopulmonary process. Previously noted right base opacity is likely crowding of vascular markings in the infrahilar regions. There are no pleural effusions. There is no pneumothorax. The bony thorax appears intact. IMPRESSION: No acute cardiopulmonary process. Reviewed, Interpreted and Dictated by David Bee MD Transcribed by Aruna Bazzi Authenticated and [facility]
[2023-10-11 09:50] LABS: Miscellaneous Test SCANNED IMAGE
== END 2023-10-09 12:32 | disposition home or self-care (01) ==
LOC: LAB 12:16 → RAD 12:17
PROVIDERS: Internal Medicine Medical Oncology; PCP Family Medicine; Visit Provider Family Medicine
DX: J18.9 Pneumonia, unspecified organism (principal)
CPT/HCPCS: 36415; 71046

== ENCOUNTER 2023-10-11 14:51 | Outpatient (CLI) | payer OTHER, SELFPAY ==
[2023-10-11] MEDS: IRON SUCROSE COMPLEX 200 MG in 0.9 % SODIUM CHLORIDE 100 ML 220 MG IV (15:07)
[2023-10-11] MEDS: SODIUM CHLORIDE 0.9% 50ML BAG 50 ML IV (15:07)
[2023-10-11 15:13] VITALS: BP 126/66; PULSE 71; RESP 16; O2SAT 98
[2023-10-11 15:45] VITALS: BP 103/52; PULSE 74; RESP 16; O2SAT 97
== END 2023-10-11 15:55 | disposition home or self-care (01) ==
LOC: INF 14:51
PROVIDERS: PCP Physician Assistant; Visit Provider Internal Medicine Medical Oncology
DX: D50.8 Other iron deficiency anemias (principal); T45.4X5A Adverse effect of iron and its compounds, initial encounter; D68.61 Antiphospholipid syndrome
CPT/HCPCS: 96365; J1756

== ENCOUNTER 2023-10-16 15:11 | Outpatient (CLI) | payer OTHER, SELFPAY ==
[2023-10-16 13:35] VITALS: BP 117/62; PULSE 72; RESP 18; O2SAT 98
[2023-10-16] MEDS: 0.9 % SODIUM CHLORIDE 50 ML 100 ML IV (15:35)
[2023-10-16] MEDS: IRON SUCROSE COMPLEX 200 MG in 0.9 % SODIUM CHLORIDE 100 ML 220 MG IV (15:35)
[2023-10-16 16:25] VITALS: BP 133/73; PULSE 73; RESP 18; O2SAT 99
== END 2023-10-16 23:59 | disposition home or self-care (01) ==
PROVIDERS: PCP Physician Assistant; Visit Provider Internal Medicine Medical Oncology
DX: D68.61 Antiphospholipid syndrome (principal); Z51.81 Encounter for therapeutic drug level monitoring; Z79.01 Long term (current) use of anticoagulants; D50.9 Iron deficiency anemia, unspecified
CPT/HCPCS: 96365; J1756

== ENCOUNTER 2023-10-25 10:53 | Outpatient (CLI) | payer OTHER, SELFPAY ==
[2023-10-25 13:48] LABS: PHA INR Fingerstick 1.4 (0.9-1.1)
== END 2023-10-25 14:00 ==
LOC: ACC 10:54
PROVIDERS: PCP Physician Assistant; Visit Provider Family Medicine
DX: Z51.81 Encounter for therapeutic drug level monitoring (principal); Z79.01 Long term (current) use of anticoagulants
CPT/HCPCS: 85610; 99211; G0463

== ENCOUNTER → 2023-10-25 11:29 | Outpatient (POV) | payer OTHER, SELFPAY ==
--- NOTE | 2023-10-25 11:57 | EXP.PAIN.SOA ---
[facility] Pain Management SOAP Note Subjective:: Patient is a pleasant 53-year-old female who presents today for 1 month follow-up. We are currently treating the patient for degenerative disc disease of lumbar spine with lumbar radiculopathy symptoms, bilateral sacroiliitis, chronic lupus, restless leg syndrome. Today she rates her pain a 5 out of 10. Patient does state that she did end up undergoing her bariatric surgery that was done in [place]. Patient states this was on the fourth. She states she is doing well however is having standard aches and pains related to this procedure. She does state that she is already lost 20 pounds and has had to adjust with changing her diet. Patient does state that she frequently gets nauseated easily and has been trying to come off any extra medications that she does not have to take. Patient states that she has dropped down her Cymbalta because it typically cause the worst stomach GI upset. She states that she has gone down to her Lyrica to 100 mg at night and her ropinirole to 1 mg at night. She states that she finished all her surgery postop meds yesterday and that she is back to using her regular pain medication which was [place] 10 mg 5 times a day. Patient states that she does not need refills at this time. Patient does also still use her baclofen 5 mg 3 times a day however she states that she does not need any refills at today's visit. Her Loi has been reviewed and is appropriate. Review of Systems: General: No recent weight changes, no fever, no sleep disturbances Respiratory: No cough, no shortness of air, no recurring pulmonary infections Cardiovascular/peripheral vascular: No chest pain, no palpitations, no edema, no shortness of breath Gastrointestinal: No new onset incontinence, normal bowel movements reported Genitourinary: No new onset incontinence Musculoskeletal: Abdominal pain Psychiatric: [Normal mood/affect] Neurological: [Denies weakness in extremities], [denies balance issues] Objective:: Physical Exam: General: Alert and oriented x3, no acute distress, pleasant and cooperative Lungs: Respirations even and unlabored, symmetrical chest expansion Eyes: PERRL Musculoskeletal: Flexion and extension of lumbar [spine] somewhat guarded secondary to pain, [antalgic gait noted] Neurological: Speech clear, no gross sensory deficit Assessment:: Degenerative disc disease of lumbar spine with lumbar radiculopathy symptoms, bilateral sacroiliitis, chronic lupus, restless leg syndrome, status post bariatric surgery Plan:: Patient is doing well following her bariatric surgery. Patient does not need any medication refills at this time. Patient will return to clinic in 1 month for reevaluation of symptoms and medication refill. Patient has been advised of risks of oversedation with the prescribed medication. Narcan has been offered to the patient in the event of oversedation. Patient has been advised that a family member should also be educated regarding administration of Narcan. Patient has been instructed to contact the clinic with any concerns before the next appointment. Dr. Venegas has reviewed this note and agrees with this plan of care. This note was dictated using voice recognition software and make contain errors or omissions. [facility] Disclaimer: The information contained in this section may have been updated after the patient was seen, as this information can be updated by other users. Medical History Asthma Dizziness Edema Encounter for pre-operative cardiovascular clearance History of DVT (deep vein thrombosis) History of gastroesophageal reflux (GERD) History of TIA (transient ischemic attack) Hypertension Lesion of nose Surgical History History of appendectomy History of section History of cholecystectomy History of hysterectomy Family History Other No significant family history Social History (Updated 10/16/23 @ 16:00 by Talisha Fong RN) Smoking Status: Never smoker second hand exposure: No alcohol intake: never substance use type: denies use current occupational status: employed Travel in the last 8 weeks: None household members: spouse housing: house caffeine: Yes
[2023-10-25 12:09] VITALS: BP 142/81; PULSE 73; RESP 18; O2SAT 94; BMI 39.1
== END ==
LOC: SC.PAIN 11:29
PROVIDERS: PCP Physician Assistant; Visit Provider Nurse Practitioner Family
DX: M51.16 Intervertebral disc disorders with radiculopathy, lumbar region (principal); M46.1 Sacroiliitis, not elsewhere classified; M32.9 Systemic lupus erythematosus, unspecified; G25.81 Restless legs syndrome; Z98.84 Bariatric surgery status
CPT/HCPCS: 99212; G0463

== ENCOUNTER 2023-10-26 14:06 | Outpatient (CLI) | payer OTHER, SELFPAY ==
[2023-10-26 14:11] VITALS: BP 114/69; PULSE 68; RESP 18; TEMP 36.8; O2SAT 96; BMI 38.9
[2023-10-26] MEDS: IRON SUCROSE COMPLEX 200 MG in 0.9 % SODIUM CHLORIDE 100 ML 220 MG IV (14:50)
[2023-10-26] MEDS: SODIUM CHLORIDE 0.9% 50ML BAG 50 ML IV (14:50)
[2023-10-26 14:53] LABS: Activated Partial Thrombo Time 37.3 seconds (22.8-30.6); INR 1.61 (0.9-1.1); Prothrombin Time 16.9 seconds (10.1-12.5)
[2023-10-26 14:54] LABS: Basophils # 0.1 K/mm3 (0-0.2); Eosinophils # 0.6 K/mm3 (0.0-0.4); Eosinophils % 8.6 % (0.1-12.0); Hematocrit 36.5 % (37.0-47.0); Lymphocytes # 2.7 K/mm3 (0.7-4.5); Lymphocytes % 37.2 % (10-50); Mean Corpuscular HGB Conc 32.8 g/dL (31.8-35.4); Mean Corpuscular Hemoglobin 26.6 pg (27.0-31.2); Mean Corpuscular Volume 81.1 fl (81-99); Mean Platelet Volume 9.4 fl (7.4-10.4); Monocytes # 0.3 K/mm3 (0.1-1.0); Monocytes % 4.3 % (1.7-9.3); Neutrophils # 3.5 K/mm3 (1.8-7.8); Neutrophils % 48.8 % (37.0-80.0); Platelet Count 383 K/mm3 (142-424); Red Cell Distribution Width 19.2 % (11.5-17.5); White Blood Count 7.1 K/mm3 (4.8-10.8)
[2023-10-26] MEDS: SODIUM CHLORIDE 0.9% 10ML FLUSH SYRINGE 10 ML IV (15:22)
[2023-10-26 15:27] VITALS: BP 128/70; PULSE 65; RESP 18
== END 2023-10-26 15:28 | disposition home or self-care (01) ==
LOC: INF 14:07
PROVIDERS: PCP Physician Assistant; Referring Provider Surgery; Visit Provider Internal Medicine Medical Oncology
DX: D68.61 Antiphospholipid syndrome (principal); D50.8 Other iron deficiency anemias; Z51.81 Encounter for therapeutic drug level monitoring; Z79.01 Long term (current) use of anticoagulants
CPT/HCPCS: 85025; 85610; 85730; 96365; J1756

== ENCOUNTER 2023-10-30 10:53 | Outpatient (CLI) | payer OTHER, SELFPAY ==
[2023-10-30 11:09] LABS: PHA INR Fingerstick 2.1 (0.9-1.1)
== END 2023-10-30 11:11 ==
LOC: ACC 10:54
PROVIDERS: PCP Physician Assistant; Visit Provider Physician Assistant
DX: Z51.81 Encounter for therapeutic drug level monitoring (principal); Z79.01 Long term (current) use of anticoagulants; G45.8 Other transient cerebral ischemic attacks and related syndromes
CPT/HCPCS: 85610; 99211; G0463

== ENCOUNTER 2023-11-05 10:39 | Outpatient (CLI) | payer OTHER, SELFPAY ==
[2023-11-05 14:06] LABS: PHA INR Fingerstick 2.6 (0.9-1.1)
== END 2023-11-05 14:13 ==
LOC: ACC 10:39
PROVIDERS: PCP Physician Assistant; Visit Provider Physician Assistant
DX: Z51.81 Encounter for therapeutic drug level monitoring (principal); Z79.01 Long term (current) use of anticoagulants; G45.8 Other transient cerebral ischemic attacks and related syndromes
CPT/HCPCS: 85610; 99211; G0463

== ENCOUNTER 2023-11-06 20:29 | Outpatient (CLI) | payer OTHER, SELFPAY ==
[2023-11-06 18:57] LABS: Chloride 106 mmol/L (98-107); Potassium 3.9 mmoL/L (3.5-5.1); Sodium 139 mmol/L (136-145)
[2023-11-06 18:58] LABS: Basophils # 0.1 K/mm3 (0-0.2); Basophils % 0.7 % (0.1-2.0); Eosinophils # 0.4 K/mm3 (0.0-0.4); Hematocrit 37.2 % (37.0-47.0); Hemoglobin 12.9 g/dL (12.2-16.2); Lymphocytes # 3.3 K/mm3 (0.7-4.5); Lymphocytes % 42.8 % (10-50); Mean Corpuscular HGB Conc 34.7 g/dL (31.8-35.4); Mean Corpuscular Hemoglobin 28.9 pg (27.0-31.2); Mean Corpuscular Volume 83.3 fl (81-99); Mean Platelet Volume 10.6 fl (7.4-10.4); Monocytes # 0.4 K/mm3 (0.1-1.0); Monocytes % 4.7 % (1.7-9.3); Neutrophils # 3.6 K/mm3 (1.8-7.8); Neutrophils % 46.7 % (37.0-80.0); Platelet Count 340 K/mm3 (142-424); Red Blood Count 4.47 M/mm3 (4.20-5.40); Red Cell Distribution Width 19.4 % (11.5-17.5); White Blood Count 7.7 K/mm3 (4.8-10.8)
[2023-11-06 19:00] LABS: Alanine Aminotransferase 38 U/L (12-78); Albumin Level 4.1 g/dl (3.5-5.0); Albumin/Globulin Ratio 1.4 (1.1-1.8); Alkaline Phosphatase 122 U/L (38-126); Anion Gap 10.9 mEq/L (5-15); Aspartate Amino Transferase 38 U/L (14-36); Bilirubin,Total 0.5 mg/dl (0.2-1.3); Blood Urea Nitrogen 10 mg/dl (7-17); Carbon Dioxide 26 mmol/L (22.0-30.0); Cholesterol 151 mg/dl (140-200); Estimated Glomerular Filt Rate 130 ml/min (>60); GFR (African American) 157 ML/MIN (>60); Globulin 2.9 g/dL (1.3-3.2); Triglycerides 112 mg/dl (30-150); VLDL Cholesterol 22 mg/dL (0-40)
[2023-11-06 19:01] LABS: Calcium 8.8 mg/dl (8.4-10.2); Chol/HDL Ratio 2.6 (1-3.5); Glucose 92 mg/dl (74-100); HDL Cholesterol 58 mg/dl (40-60)
[2023-11-06 19:13] LABS: Direct LDL Cholesterol 66.17 mg/dL (100-129)
[2023-11-06 19:17] LABS: 25-OH Vitamin D, Total 28.8 ng/mL (30-100)
[2023-11-06 19:37] LABS: Ferritin 110 ng/ml (11.1-264)
[2023-11-06 19:52] LABS: Vitamin B12 649 pg/mL (239-931)
== END 2023-11-06 23:59 ==
LOC: LAB.DROPOF 20:29
PROVIDERS: PCP Internal Medicine; Visit Provider Internal Medicine
DX: Z79.899 Other long term (current) drug therapy (principal); I10 Essential (primary) hypertension; E87.6 Hypokalemia; E55.9 Vitamin D deficiency, unspecified; D68.61 Antiphospholipid syndrome; E66.01 Morbid (severe) obesity due to excess calories; Z68.39 Body mass index [BMI] 39.0-39.9, adult; Z98.84 Bariatric surgery status
CPT/HCPCS: 80053; 80061; 82306; 82607; 82728; 85025

== ENCOUNTER 2023-11-19 07:54 | Outpatient (CLI) | payer OTHER, SELFPAY ==
[2023-11-19 14:12] LABS: PHA INR Fingerstick 1.8 (0.9-1.1)
== END 2023-11-19 14:19 ==
LOC: ACC 07:54
PROVIDERS: PCP Internal Medicine; Visit Provider Physician Assistant
DX: Z51.81 Encounter for therapeutic drug level monitoring (principal); Z79.01 Long term (current) use of anticoagulants
CPT/HCPCS: 85610; 99211; G0463

== ENCOUNTER → 2023-11-26 07:59 | Outpatient (POV) | payer OTHER, SELFPAY ==
[2023-11-26 08:19] VITALS: BP 130/70; PULSE 76; RESP 18; O2SAT 97; BMI 37.9
--- NOTE | 2023-11-26 08:36 | A.OFFVIS_ITS ---
[facility] Pain Management SOAP Note Subjective:: Patient is a pleasant 53-year-old female who presents today for medication refill. We are currently treating the patient for degenerative disc disease of lumbar spine with lumbar radiculopathy symptoms, bilateral sacroiliitis, chronic lupus, restless leg syndrome. Today she rates her pain a 6 out of 10. Patient denies any new trauma or injury. She does state that the weather going back cold has aggravated her overall pain symptoms. Patient did recently have a gastric bypass surgery out of [place] and states she continues to do well with this. Patient states that she has not been released from her overall restrictions but she does have her follow-up tomorrow. Patient is currently on Lyrica 1 to 2 tablets of 100 mg at bedtime, ropinirole 1 mg at bedtime and [place] 10 mg 5 times a day. She denies any side effects from these medications. We do also prescribed baclofen 5 mg 3 times a day however she only uses as needed. She states that she only needs refills on her [place] and that she has not even been having to take this 5 times a day. Her Loi has been reviewed and is appropriate. Review of Systems: General: No recent weight changes, no fever, no sleep disturbances Respiratory: No cough, no shortness of air, no recurring pulmonary infections Cardiovascular/peripheral vascular: No chest pain, no palpitations, no edema, no shortness of breath Gastrointestinal: No new onset incontinence, normal bowel movements reported Genitourinary: No new onset incontinence Musculoskeletal: Low back pain Psychiatric: [Normal mood/affect] Neurological: [Denies weakness in extremities], [denies balance issues] Objective:: Physical Exam: General: Alert and oriented x3, no acute distress, pleasant and cooperative Lungs: Respirations even and unlabored, symmetrical chest expansion Eyes: PERRL Musculoskeletal: Flexion and extension of lumbar [spine] somewhat guarded secondary to pain, [antalgic gait noted] Neurological: Speech clear, no gross sensory deficit Assessment:: Degenerative disc disease of lumbar spine with lumbar radiculopathy symptoms, bilateral sacroiliitis, chronic lupus, restless leg syndrome Plan:: I will refill the patient's [place] 10 mg and decrease it to 4 times a day. Patient will be given a 1 month supply of this medication. Patient will return to clinic in 1 month for reevaluation of symptoms and plan of care. Risks and benefits of the medication have been explained in detail to the patient. The patient does understand the risk of dependence on the medication when given over a prolonged period. Patient has been advised of risks of oversedation with the prescribed medication. Narcan has been offered to the paitent in the event of oversedation. Patient has been advised that a family member should also be educated regarding administration of Narcan. The patient has been advised to consult with his/her primary care provider and pharmacist regarding drug-drug interaction of medications currently prescribed. Patient has been prescribed a controlled substance after being counseled on the medication, medication safety, and possible side effects. Opioid contract was reviewed and signed by the patient, and that they have agreed to all of the terms set forth by our compliance program. Patient has been instructed to contact the clinic with any concerns before the next appointment. Dr. Venegas has reviewed this note and agrees with this plan of care. This note was dictated using voice recognition software and make contain errors or omissions. [facility] Disclaimer: The information contained in this section may have been updated after the patient was seen, as this information can be updated by other users. Medical History Asthma Dizziness Edema Encounter for pre-operative cardiovascular clearance History of DVT (deep vein thrombosis) History of gastroesophageal reflux (GERD) History of TIA (transient ischemic attack) Hypertension Lesion of nose Surgical History History of appendectomy History of section History of cholecystectomy History of hysterectomy Family History Other No significant family history Social History Smoking Status: Never smoker second hand exposure: No alcohol intake: never substance use type: denies use current occupational status: employed Travel in the last 8 weeks: None household members: spouse housing: house caffeine: Yes
== END | disposition home or self-care (01) ==
PROVIDERS: PCP Internal Medicine; Visit Provider Nurse Practitioner Family
DX: M51.16 Intervertebral disc disorders with radiculopathy, lumbar region (principal); M46.1 Sacroiliitis, not elsewhere classified; M32.9 Systemic lupus erythematosus, unspecified; G25.81 Restless legs syndrome
CPT/HCPCS: 99212; G0463

== ENCOUNTER 2023-12-04 12:50 | Outpatient (CLI) | payer OTHER, SELFPAY ==
[2023-12-04 14:18] LABS: Thyroid Stimulating Hormone 1.73 uIU/mL (0.465-4.68)
== END 2023-12-04 23:59 ==
LOC: LAB.DROPOF 12:50
PROVIDERS: PCP Internal Medicine; Visit Provider Internal Medicine
DX: E05.90 Thyrotoxicosis, unspecified without thyrotoxic crisis or storm (principal)
CPT/HCPCS: 84443

== ENCOUNTER 2023-12-05 07:10 | Outpatient (CLI) | payer OTHER, SELFPAY ==
--- NOTE | 2023-12-05 07:12 | XR_ITS ---
FINAL REPORT CLINICAL HISTORY: pain in left shoulder COMPARISON: None FINDINGS: RIGHT SHOULDER: 3 views of the right shoulder were obtained. There is no acute fracture or dislocation. The joint spaces are intact. There is no soft tissue abnormality. IMPRESSION: No acute fracture Reviewed, Interpreted and Dictated by David Bee MD Transcribed by Kelly Masters Authenticated and [facility]
== END 2023-12-05 23:59 ==
LOC: RAD 07:10
PROVIDERS: PCP Internal Medicine; Visit Provider Internal Medicine
DX: M25.512 Pain in left shoulder (principal)
CPT/HCPCS: 73030

== ENCOUNTER 2023-12-10 08:08 | Outpatient (CLI) | payer OTHER, SELFPAY ==
[2023-12-10 11:10] LABS: PHA INR Fingerstick 1.4 (0.9-1.1)
== END 2023-12-10 11:15 ==
LOC: ACC 08:09
PROVIDERS: PCP Internal Medicine; Visit Provider Physician Assistant
DX: Z51.81 Encounter for therapeutic drug level monitoring (principal); Z79.01 Long term (current) use of anticoagulants; G45.8 Other transient cerebral ischemic attacks and related syndromes
CPT/HCPCS: 85610; 99211; G0463

== ENCOUNTER 2023-12-20 15:03 | Outpatient (CLI) | payer OTHER, SELFPAY ==
[2023-12-20 15:40] LABS: Basophils # 0.1 K/mm3 (0-0.2); Basophils % 1.4 % (0.1-2.0); Eosinophils # 0.4 K/mm3 (0.0-0.4); Eosinophils % 4.6 % (0.1-12.0); Hematocrit 43.7 % (37.0-47.0); Lymphocytes # 3.4 K/mm3 (0.7-4.5); Lymphocytes % 39.8 % (10-50); Mean Corpuscular HGB Conc 31.9 g/dL (31.8-35.4); Mean Corpuscular Volume 87.8 fl (81-99); Monocytes # 0.4 K/mm3 (0.1-1.0); Monocytes % 4.8 % (1.7-9.3); Neutrophils # 4.3 K/mm3 (1.8-7.8); Neutrophils % 49.3 % (37.0-80.0); Platelet Count 322 K/mm3 (142-424); Red Blood Count 4.98 M/mm3 (4.20-5.40); Red Cell Distribution Width 17.3 % (11.5-17.5); White Blood Count 8.6 K/mm3 (4.8-10.8)
[2023-12-20 16:08] LABS: Iron 59 ug/dL (37-170)
[2023-12-20 16:18] LABS: Total Iron Binding Capacity 367 ug/dL (265-497)
[2023-12-20 16:44] LABS: Ferritin 36.4 ng/ml (11.1-264)
== END 2023-12-20 23:59 ==
LOC: LAB 15:03
PROVIDERS: PCP Internal Medicine; Visit Provider Internal Medicine Medical Oncology
DX: D64.9 Anemia, unspecified (principal)
CPT/HCPCS: 36415; 82728; 83540; 83550; 85025

== ENCOUNTER 2023-12-24 08:15 | Outpatient (POV) | payer OTHER, SELFPAY ==
--- NOTE | 2023-12-24 08:36 | A.OFFVIS_ITS ---
[facility] Pain Management SOAP Note Subjective:: Patient is a pleasant 53-year-old female who presents today for medication refill. We are currently treating the patient for degenerative disc disease of lumbar spine with lumbar radiculopathy symptoms, bilateral sacroiliitis, chronic lupus, restless leg syndrome. Today she rates her pain a 1 out of 10. Patient does state that last night she had a rough night. She states that she had a lot of muscle tension in her lower legs which did make it harder to sleep. Patient states she is continue to do well following her Loi bypass surgery and has now lost approximately 40 pounds. Patient is stating however that she is experiencing more fatigue and a little bit of hair loss related to these changes. Patient was previously prescribed on Lyrica 1 to 2 tablets at bedtime 100 mg however she states that Dr. Thao recently changed this medication to amitriptyline. Patient was also prescribed from our office ropinirole 1 mg at bedtime and [place] 10 mg 4 times a day. Patient states she is still continuing to decrease her pain medication and has been able to go down to 2 to 3 tablets /day. Patient also states that her baclofen 5 mg 3 times a day that she has still not needed to use this and does not need refills. Her Loi has been reviewed and is appropriate. Review of Systems: General: No recent weight changes, no fever, no sleep disturbances Respiratory: No cough, no shortness of air, no recurring pulmonary infections Cardiovascular/peripheral vascular: No chest pain, no palpitations, no edema, no shortness of breath Gastrointestinal: No new onset incontinence, normal bowel movements reported Genitourinary: No new onset incontinence Musculoskeletal: Low back pain Psychiatric: [Normal mood/affect] Neurological: [Denies weakness in extremities], [denies balance issues] Objective:: Physical Exam: General: Alert and oriented x3, no acute distress, pleasant and cooperative Lungs: Respirations even and unlabored, symmetrical chest expansion Eyes: PERRL Musculoskeletal: Flexion and extension of lumbar [spine] somewhat guarded secondary to pain, [antalgic gait noted] Neurological: Speech clear, no gross sensory deficit Assessment:: Degenerative disc disease of lumbar spine with lumbar radiculopathy symptoms, bilateral sacroiliitis, chronic leukocytosis leg syndrome Plan:: 10 mg 3 times a day and provide a 1 month supply of this medication. Patient will return to clinic in 1 month for reevaluation of symptoms and plan of care. Patient is requesting if she can do her urine drug screen later today or first thing in the morning due to needing to get to work. I have counseled the patient that this is fine. Risks and benefits of the medication have been explained in detail to the patient. The patient does understand the risk of dependence on the medication when given over a prolonged period. Patient has been advised of risks of oversedation with the prescribed medication. Narcan has been offered to the paitent in the event of oversedation. Patient has been advised that a family member should also be educated regarding administration of Narcan. The patient has been advised to consult with his/her primary care provider and pharmacist regarding drug-drug interaction of medications currently prescribed. Patient has been prescribed a controlled substance after being counseled on the medication, medication safety, and possible side effects. Opioid contract was reviewed and signed by the patient, and that they have agreed to all of the terms set forth by our compliance program. Patient has been instructed to contact the clinic with any concerns before the next appointment. Dr. Venegas has reviewed this note and agrees with this plan of care. This note was dictated using voice recognition software and make contain errors or omissions. [facility] Disclaimer: The information contained in this section may have been updated after the patient was seen, as this information can be updated by other users. Medical History Lesion of nose Encounter for pre-operative cardiovascular clearance Asthma History of gastroesophageal reflux (GERD) Hypertension Dizziness Edema History of TIA (transient ischemic attack) History of DVT (deep vein thrombosis) Surgical History History of hysterectomy History of section History of appendectomy History of cholecystectomy Family History Other No significant family history Social History Smoking Status: Never smoker second hand exposure: No alcohol intake: never substance use type: denies use current occupational status: employed Travel in the last 8 weeks: None household members: spouse housing: house caffeine: Yes
[2023-12-24 08:37] VITALS: BP 152/92; PULSE 74; RESP 18; O2SAT 100; BMI 35.7
== END 2023-12-24 23:59 | disposition home or self-care (01) ==
PROVIDERS: PCP Internal Medicine; Visit Provider Nurse Practitioner Family
DX: M51.16 Intervertebral disc disorders with radiculopathy, lumbar region (principal); M46.1 Sacroiliitis, not elsewhere classified; D72.829 Elevated white blood cell count, unspecified
CPT/HCPCS: 99212; G0463

== ENCOUNTER 2023-12-25 07:40 | Outpatient (CLI) | payer OTHER, SELFPAY ==
[2023-12-25 10:37] LABS: Benzodiazepines Screen,Urine Negative ng/ml (<200)
[2023-12-25 10:38] LABS: Amphetamine/Metha Screen,Urine Negative ng/ml (<1000); Barbiturates Screen,Urine Negative ng/ml (<200)
[2023-12-25 10:39] LABS: Cannabinoid Screen,Urine Negative ng/ml (<50); Cocaine Screen,Urine Negative ng/ml (<300)
[2023-12-25 10:40] LABS: Methadone Screen,Urine Negative ng/ml (<300)
[2023-12-25 10:41] LABS: Opiate Screen,Urine Positive ng/ml (<300); Phencyclidine Screen,Urine Negative ng/ml (<25)
[2023-12-30 12:17] LABS: Codeine Negative (Cutoff=100); Hydrocodone Positive (.); Hydromorphone Positive (.); Morphine Negative (Cutoff=100); Opiates Positive (.)
== END 2023-12-25 23:59 ==
LOC: LAB 07:40
PROVIDERS: PCP Internal Medicine; Visit Provider Nurse Practitioner Family
DX: Z79.891 Long term (current) use of opiate analgesic (principal)
CPT/HCPCS: 80307; 80361; 80365; G0480

== ENCOUNTER 2023-12-27 09:21 | Outpatient (CLI) | payer OTHER, SELFPAY ==
--- NOTE | 2023-12-27 09:21 | XR_ITS ---
FINAL REPORT TECHNIQUE: Bone mineral density was calculated of the lumbar spine and hip. CLINICAL HISTORY: osteoporosis COMPARISON: None FINDINGS: Using L1-4, the bone mineral density of the spine is 1.074 g/cm2, corresponding to T-score of 0.2. Using the left hip, the bone mineral density of the femoral neck is 0.914 g/cm2, corresponding to a T-score of -0.2. Using the right hip, the bone mineral density of the femoral neck is 0.7 g/cm?, corresponding to a T-score of -1.3. NOTE: T-score: Standard deviation compared with peak bone mass of young adult mean. *Following the recommendations of the International Society of Bone densitometry, classification of hip BMD is based on the lower of two T-scores; total hip or femoral neck. IMPRESSION: Diminished bone mineral density of the right hip consistent with low bone density. Normal bone mineral density of the left hip and lumbar spine. Reviewed, Interpreted and Dictated by Mundo Horowitz III, MD Transcribed by Kelly Masters Authenticated and . [facility]
== END 2023-12-27 23:59 ==
LOC: RAD 09:21
PROVIDERS: PCP Internal Medicine; Visit Provider Internal Medicine
DX: M81.0 Age-related osteoporosis without current pathological fracture (principal)
CPT/HCPCS: 77080

== ENCOUNTER 2023-12-28 07:42 | Outpatient (CLI) | payer OTHER, SELFPAY ==
[2023-12-28 08:16] LABS: PHA INR Fingerstick 2.9 (0.9-1.1)
== END 2023-12-28 08:17 ==
LOC: ACC 07:42
PROVIDERS: PCP Internal Medicine; Visit Provider Physician Assistant
DX: Z79.01 Long term (current) use of anticoagulants (principal); Z51.81 Encounter for therapeutic drug level monitoring; G45.9 Transient cerebral ischemic attack, unspecified
CPT/HCPCS: 85610; 99211; G0463

== ENCOUNTER 2024-01-11 08:01 | Outpatient (CLI) | payer OTHER, SELFPAY ==
[2024-01-11 09:40] LABS: Prothrombin Time 48.7 seconds (10.1-12.5)
[2024-01-11 09:41] LABS: INR 5.01 (0.9-1.1)
[2024-01-11 10:03] LABS: PHA INR Fingerstick 4.4 (0.9-1.1)
== END 2024-01-11 10:59 ==
PROVIDERS: PCP Internal Medicine; Visit Provider Physician Assistant
DX: Z51.81 Encounter for therapeutic drug level monitoring (principal); Z79.01 Long term (current) use of anticoagulants
CPT/HCPCS: 36415; 85610; 99211; G0463

== ENCOUNTER 2024-01-24 08:11 | Outpatient (POV) | payer OTHER, SELFPAY ==
[2024-01-24 08:13] VITALS: BP 127/79; PULSE 97; RESP 16; O2SAT 100; BMI 35.2
--- NOTE | 2024-01-24 08:47 | A.OFFVIS_ITS ---
[facility] Pain Management SOAP Note Subjective:: Patient is a pleasant 53-year-old female who presents today for medication refill and follow-up. Today she rates her pain a 3 out of 10. She denies any new trauma or injury. She does state that she continues to do well following her gastric surgery. Patient states she is no longer taking the ropinirole at night and is only doing her [place] 10 mg 3 times a day with some days not even needing all 3 tablets. Patient is prescribed amitriptyline from her primary care provider. Her Loi has been reviewed and is appropriate. Review of Systems: General: No recent weight changes, no fever, no sleep disturbances Respiratory: No cough, no shortness of air, no recurring pulmonary infections Cardiovascular/peripheral vascular: No chest pain, no palpitations, no edema, no shortness of breath Gastrointestinal: No new onset incontinence, normal bowel movements reported Genitourinary: No new onset incontinence Musculoskeletal: Low back pain Psychiatric: [Normal mood/affect] Neurological: [Denies weakness in extremities], [denies balance issues] Objective:: Physical Exam: General: Alert and oriented x3, no acute distress, pleasant and cooperative Lungs: Respirations even and unlabored, symmetrical chest expansion Eyes: PERRL Musculoskeletal: Flexion and extension of lumbar [spine] somewhat guarded secondary to pain, [antalgic gait noted] Neurological: Speech clear, no gross sensory deficit Assessment:: Degenerative disc disease of lumbar spine with lumbar radiculopathy symptoms, bilateral sacroiliitis, chronic lupus, RLS Plan:: Will refill the patient's [place] 10 mg 3 times a day and provide a 1 month supply of this medication. Patient will return to clinic in 1 month for reevaluation of symptoms and plan of care. Risks and benefits of the medication have been explained in detail to the patient. The patient does understand the risk of dependence on the medication when given over a prolonged period. Patient has been advised of risks of oversedation with the prescribed medication. Narcan has been offered to the paitent in the event of oversedation. Patient has been advised that a family member should also be ed ucated regarding administration of Narcan. The patient has been advised to consult with his/her primary care provider and pharmacist regarding drug-drug interaction of medications currently prescribed. Patient has been prescribed a controlled substance after being counseled on the medication, medication safety, and possible side effects. Opioid contract was reviewed and signed by the patient, and that they have agreed to all of the terms set forth by our compliance program. Patient has been instructed to contact the clinic with any concerns before the next appointment. Dr. Venegas has reviewed this note and agrees with this plan of care. This note was dictated using voice recognition software and make contain errors or omissions. [facility] Disclaimer: The information contained in this section may have been updated after the patient was seen, as this information can be updated by other users. Medical History Vasomotor symptoms due to menopause Stroke Lupus Asthma History of gastroesophageal reflux (GERD) Hypertension Dizziness Edema History of TIA (transient ischemic attack) History of DVT (deep vein thrombosis) Surgical History History of hysterectomy History of section History of appendectomy History of cholecystectomy Family History Other Coronary artery disease Social History Smoking Status: Never smoker second hand exposure: No alcohol intake: never substance use type: denies use current occupational status: other Travel in the last 8 weeks: None household members: spouse housing: house caffeine: Yes
== END 2024-01-24 23:59 | disposition home or self-care (01) ==
PROVIDERS: PCP Internal Medicine; Visit Provider Nurse Practitioner Family
DX: M51.16 Intervertebral disc disorders with radiculopathy, lumbar region (principal); M46.1 Sacroiliitis, not elsewhere classified; M32.9 Systemic lupus erythematosus, unspecified; G25.81 Restless legs syndrome
CPT/HCPCS: 99212; G0463

== ENCOUNTER 2024-01-25 07:49 | Outpatient (CLI) | payer OTHER, SELFPAY ==
[2024-01-25 09:00] LABS: PHA INR Fingerstick 3.4 (0.9-1.1)
== END 2024-01-25 09:06 ==
LOC: ACC 07:49
PROVIDERS: PCP Physician Assistant; Visit Provider Physician Assistant
DX: Z51.81 Encounter for therapeutic drug level monitoring (principal); Z79.01 Long term (current) use of anticoagulants
CPT/HCPCS: 85610; 99211; G0463

== ENCOUNTER 2024-02-22 08:03 | Outpatient (CLI) | payer OTHER, SELFPAY | END 2024-02-22 13:45 | LOC: ACC 08:04 | PROVIDERS: PCP Physician Assistant; Visit Provider Physician Assistant | DX: Z51.81 Encounter for therapeutic drug level monitoring (principal); Z79.01 Long term (current) use of anticoagulants | CPT/HCPCS: 85610; 99211; G0463 ==

== ENCOUNTER 2024-02-25 08:08 | Outpatient (POV) | payer OTHER, SELFPAY ==
[2024-02-25 08:31] VITALS: BP 137/87; PULSE 74; RESP 18; O2SAT 98; BMI 34.3
--- NOTE | 2024-02-25 08:39 | A.OFFVIS_ITS ---
[facility] Pain Management SOAP Note Subjective:: Patient is a pleasant 54-year-old female who presents today for medication refill and follow-up. Today she rates her pain an 8 out of 10. Patient denies any new falls or injuries however she states that she woke up this morning with intense low back pain that has yet to resolve. She states it is a sharp shooting pain all across her low back around her prior lumbar surgery scar. Patient states that it is constant and does not seem to get better with any certain positioning. Patient has tried [id number] medication along with her pain medicine of [place] 10 mg 3 times a day. Patient states the pain is interfering with her ability perform activities of daily living. Patient is on blood thinner and cannot have any lumbar epidurals due to not being able to come off this therapy. Her Loi has been reviewed and is appropriate. Review of Systems: General: No recent weight changes, no fever, no sleep disturbances Respiratory: No cough, no shortness of air, no recurring pulmonary infections Cardiovascular/peripheral vascular: No chest pain, no palpitations, no edema, no shortness of breath Gastrointestinal: No new onset incontinence, normal bowel movements reported Genitourinary: No new onset incontinence Musculoskeletal: Low back pain Psychiatric: [Normal mood/affect] Neurological: [Denies weakness in extremities], [denies balance issues] Objective:: Physical Exam: General: Alert and oriented x3, no acute distress, pleasant and cooperative Lungs: Respirations even and unlabored, symmetrical chest expansion Eyes: PERRL Musculoskeletal: Flexion and extension of lumbar [spine] somewhat guarded secondary to pain, [antalgic gait noted] point tenderness along bilateral lumbar paraspinous muscles Neurological: Speech clear, no gross sensory deficit Assessment:: Degenerative disc disease of lumbar spine with lumbar radiculopathy symptoms, bilateral sacroiliitis, chronic lupus, restless leg syndrome, myofascial pain Plan:: Patient is experiencing significant sharp shooting pain across her low back with limited range of motion of her lumbar spine and point tenderness at her bilateral lumbar paraspinous muscles. I have discussed with patient that she may benefit from trigger point injections along the sites of tenderness. Risk and benefits were discussed with patient and she would like to proceed forward with this plan of care. I will also send in her refills on her [place] and also send in a 7-day dose of prednisone 20 mg twice daily. Patient will be scheduled for trigger point injections of her bilateral lumbar paraspinous muscles. These injections will be done without ultrasound or fluoroscopy. Risks and benefits of the medication have been explained in detail to the patient. The patient does understand the risk of dependence on the medication when given over a prolonged period. Patient has been advised of risks of oversedation with the prescribed medication. Narcan has been offered to the paitent in the event of oversedation. Patient has been advised that a family member should also be educated regarding administration of Narcan. The patient has been advised to consult with his/her primary care provider and pharmacist regarding drug-drug interaction of medications currently prescribed. Patient has been prescribed a controlled substance after being counseled on the medication, medication safety, and possible side effects. Opioid contract was reviewed and signed by the patient, and that they have agreed to all of the terms set forth by our compliance program. Patient has been instructed to contact the clinic with any concerns before the next appointment. Dr. Venegas has reviewed this note and agrees with this plan of care. This note was dictated using voice recognition software and make contain errors or omissions. [facility] Disclaimer: The information contained in this section may have been updated after the patient was seen, as this information can be updated by other users. Medical History Vasomotor symptoms due to menopause Stroke Lupus Asthma History of gastroesophageal reflux (GERD) Hypertension Dizziness Edema History of TIA (transient ischemic attack) History of DVT (deep vein thrombosis) Surgical History History of hysterectomy History of section History of appendectomy History of cholecystectomy Family History Other Coronary artery disease Social History Smoking Status: Never smoker second hand exposure: No alcohol intake: never substance use type: denies use current occupational status: other Travel in the last 8 weeks: None household members: spouse housing: house caffeine: Yes
== END 2024-02-25 23:59 | disposition home or self-care (01) ==
PROVIDERS: PCP Internal Medicine; Visit Provider Nurse Practitioner Family
DX: M51.16 Intervertebral disc disorders with radiculopathy, lumbar region (principal); M46.1 Sacroiliitis, not elsewhere classified; M32.9 Systemic lupus erythematosus, unspecified; G25.81 Restless legs syndrome; M79.10 Myalgia, unspecified site
CPT/HCPCS: 99212; G0463

== ENCOUNTER 2024-02-26 08:08 | Day surgery (SDC) | payer OTHER, SELFPAY ==
--- NOTE | 2024-02-26 08:15 | XR_ITS ---
FINAL REPORT CLINICAL HISTORY: BILATERAL HIP PAIN COMPARISON: None FINDINGS: RIGHT HIP Two views of the right hip with an AP view of the pelvis demonstrate no acute fracture or dislocation. There is minimal degenerative change. The visualized bony structures are well aligned. No soft tissue abnormality is seen. IMPRESSION: Minimal degenerative change without acute bony abnormality. Reviewed, Interpreted and Dictated by Mundo Horowitz III, MD Transcribed by Aruna Bazzi Authenticated and [facility]
--- NOTE | 2024-02-26 08:15 | XR_ITS ---
FINAL REPORT CLINICAL HISTORY: BILATERAL HIP PAIN COMPARISON: None FINDINGS: LEFT HIP: Two views of the left hip demonstrate no acute fracture or dislocation. There is minimal degenerative change. The visualized bony structures are well aligned. No soft tissue abnormality is seen. IMPRESSION: Minimal degenerative change without acute bony abnormality. Reviewed, Interpreted and Dictated by Mundo Horowitz III, MD Transcribed by Aruna Bazzi Authenticated and [facility]
--- NOTE | 2024-02-26 08:16 | XR_ITS ---
FINAL REPORT CLINICAL HISTORY: EVALUATION OF IMFALMMATORY CHANGES, left elbow COMPARISON: None FINDINGS: LEFT ELBOW 3 views were obtained. There is no acute fracture or dislocation. There is no joint effusion. Mild degenerative change is noted. There is a chronic calcification adjacent to the lateral humeral epicondyle. There is no soft tissue abnormality. IMPRESSION: Chronic changes without acute bony abnormality. Reviewed, Interpreted and Dictated by Mundo Horowitz III, MD Transcribed by Aruna Bazzi Authenticated and [facility]
--- NOTE | 2024-02-26 08:16 | XR_ITS ---
FINAL REPORT CLINICAL HISTORY: Right elbow pain COMPARISON: None FINDINGS: RIGHT ELBOW 3 views were obtained. There is no acute fracture or dislocation. There is no joint effusion. The joint spaces are intact. There is no soft tissue abnormality. IMPRESSION: No acute bony abnormality. Reviewed, Interpreted and Dictated by Mundo Horowitz III, MD Transcribed by Aruna Bazzi Authenticated and [facility]
--- NOTE | 2024-02-26 08:19 | XR_ITS ---
FINAL REPORT CLINICAL HISTORY: EVALUATION OF IMMFLAMMATORY CHANGES COMPARISON: None FINDINGS: SACROILIAC JOINTS SERIES Three views were obtained. There is no acute fracture or dislocation. Mild degenerative changes noted, left greater than right. The visualized bony structures are well aligned. No soft tissue abnormality is seen. IMPRESSION: Mild degenerative changes without acute bony abnormality. Reviewed, Interpreted and Dictated by Mundo Horowitz III, MD Transcribed by Aruna Bazzi Authenticated and [facility]
[2024-02-26 09:16] VITALS: BP 155/91; PULSE 76; RESP 18; O2SAT 100; BMI 34.3
[2024-02-26] MEDS: LIDOCAINE 1% 5ML PF VIAL 5 ML (09:28)
[2024-02-26] MEDS: methylPREDNISolone ACETATE 80MG/ML VIAL 80 MG (09:28)
[2024-02-26] MEDS: BUPIVACAINE 0.25% 10ML INJ 25 MG IJ (09:28)
[2024-02-26 09:29] VITALS: BP 167/85; PULSE 71; RESP 18; O2SAT 97
[2024-02-26 09:30] VITALS: BP 167/85; PULSE 71; RESP 18; O2SAT 97
[2024-02-26 09:31] VITALS: BP 163/82; PULSE 64; RESP 18; O2SAT 100
--- NOTE | 2024-02-26 09:36 | EXP.PAIN.PRO ---
Procedure Date: 02/26/24 Time: 09:30 Anesthesiologist:: Anand Pedro CRNA Complications:: None Pre-procedure Diagnosis:: Myofascial pain right lumbar paraspinous muscle. Post-procedure Diagnosis:: Same. Indications for Procedure:: Patient is a very pleasant 54-year-old female comes our clinic today for trigger point injections of lidocaine/Marcaine and cortisone into the right lumbar paraspinous muscle. She reports tightness and pain on the right side only. She rates her pain 8/10. Patient is having difficulty with flexion, extension, left and right rotation due to the pain in the right lumbar spine. Procedure Details:: Details of the procedure explained to the patient. The patient taken procedure room placed in sitting position. The area over the right lumbar spine was cleaned using chlorhexidine's cleansing solution. Multiple injections with a 25-gauge inch and half needle in the right lumbar spine from L1 to the sacrum. Each injection was 3 cc of 1% lidocaine and 20 mg of Depo-Medrol. Patient tolerated procedure without difficulty. No complications. Plan and Disposition:: Patient was discharged without incident.
== END 2024-02-26 09:31 | disposition home or self-care (01) ==
PROVIDERS: PCP Internal Medicine; Visit Provider Nurse Anesthetist, Certified Registered
DX: M79.18 Myalgia, other site (principal); R76.8 Other specified abnormal immunological findings in serum; M25.551 Pain in right hip; M25.552 Pain in left hip; M25.521 Pain in right elbow; M25.522 Pain in left elbow; M53.3 Sacrococcygeal disorders, not elsewhere classified
CPT/HCPCS: 20552; 72202; 73080; 73502; J1010

== ENCOUNTER 2024-03-11 08:04 | Emergency (ER) | payer OTHER, SELFPAY ==
[2024-03-11 08:10] VITALS: PULSE 76; RESP 18; TEMP 36.7; O2SAT 100; BMI 34.5
[2024-03-11 08:29] LABS: UTC Strep Screen (Rapid) Negative (Negative)
--- NOTE | 2024-03-11 08:48 | ED_ITS ---
Discharge Plan Disposition Patient Disposition: Home, Self-Care Condition: Good Prescriptions Prescriptions: New azithromycin [Zithromax] 250 mg tablet 250 mg PO UD DOSE PK Qty: 6 0RF Rx Instructions: Take two (2) tablets today, then one (1) tablet days #2 thru #5 benzonatate 100 mg capsule 100 mg PO TIDP PRN (Reason: Cough) Qty: 30 0RF methylprednisolone 4 mg Tablets,Dose Pack 4 mg PO DIRECTED 6 Days Qty: 21 0RF Rx Instructions: Take 1 pack as directed for 6 days No Action omeprazole 20 mg capsule,delayed release(DR/EC) 20 mg PO DAILY Patient Comments: TAKE 1 CAPSULE BY MOUTH EVERY DAY aspirin 81 mg tablet,delayed release (DR/EC) 81 mg PO DAILY cyanocobalamin (vitamin B-12) 1,000 mcg/mL solution 1,000 mcg SQ WEEKLY Patient Comments: INJECT 1 ML SUBCUTANEOUSLY ONCE A WEEK ondansetron 4 mg tablet,disintegrating 4 mg PO DAILY PRN (Reason: .) Patient Comments: TAKE 1 TABLET BY MOUTH TWICE A DAY NEEDED Veozah 45 mg tablet 45 mg PO DAILY Qty: 90 3RF promethazine 12.5 mg tablet 12.5 mg PO TID PRN (Reason: nausea and vomiting) Qty: 20 0RF hydroxychloroquine 200 mg tablet 200 mg PO BID 90 Days Qty: 180 0RF nystatin 100,000 unit/gram powder 1 applic topical BID Qty: 30 0RF alendronate 10 mg tablet 10 mg PO DAILY 90 Days Qty: 90 2RF amitriptyline 25 mg tablet See Rx Instructions .ROUTE .COMPLEX Qty: 60 0RF Dose Instruction: TAKE 1 TO 2 TABLETS BY MOUTH AT BEDTIME Rx Instructions: TAKE 1 TO 2 TABLETS BY MOUTH AT BEDTIME albuterol sulfate 90 mcg/actuation HFA aerosol inhaler 1 puff inhalation Q6HP PRN (Reason: Shortness Of Breath) Rx Instructions: INHALE 1 PUFF BY MOUTH EVERY 6 HOURS NEEDED FOR SHORTNESS OF BREATH OR WHEEZING warfarin 2 mg Tablet 2 mg PO FR baclofen 5 mg tablet 5 mg PO TID Qty: 90 0RF warfarin 5 mg tablet 2.5 mg PO SUMOTUWETHSA prednisone 20 mg tablet 20 mg PO BID Qty: 14 0RF hydrocodone-acetaminophen 10-325 mg tablet 1 tab PO TID PRN (Reason: pain given by Pain Management) Qty: 90 0RF Referrals Follow up/Referrals: Vern Abreu DO [Primary Care Provider] - See instructions Activity Restrictions/Add. Instructions Additional Instructions/Restrictions: Drink plenty of fluids. Take tylenol or ibuprofen for pain or fever. Take the medications as directed. Follow up with your regular doctor. GO TO THE ER FOR ANY WORSENING SYMPTOMS Clinical Impressions Clinical Impression: Viral syndrome Sinusitis Qualifiers: Sinusitis location: unspecified location Chronicity: unspecified Qualified Code(s): J32.9 - Chronic sinusitis, unspecified Stand Alone Forms Stand Alone Forms: Work/School Release Instructions Patient Instructions: DI for Sinusitis, DI for Viral Syndrome Discharge ED Provider: Richard Rhodes [facility] General Stated complaint: congestion, sore throat, bodyaches Mode of Arrival: Ambulatory Source of Information: Patient Limitations: No Limitations Time Seen by Provider: 03/11/24 08:43 Description of Symptoms (Recalled from Triage Doc. by RN): Pt's symptoms are sore throat, cough, body aches, and fever. HEENT Symptoms (Recalled from RN notes): Yes Resp Symptoms (Recalled from RN notes): No Skin Symptoms (Recalled from RN notes): No MS Symptoms (Recalled from RN notes): No Functional Status (Recalled from RN notes): n/a Related Data Home Medications Medication Instructions Recorded Confirmed warfarin 5 mg tablet 2.5 mg PO SUMOTUWETHSA Blood 10/24/22 03/11/24 thinner albuterol sulfate 90 mcg/actuation 1 puff inhalation Q6HP PRN 07/16/23 03/11/24 aerosol inhaler Shortness Of Breath warfarin 2 mg tablet 2 mg PO FR Blood Thinner 07/16/23 03/11/24 omeprazole 20 mg capsule,delayed 20 mg PO DAILY GERD 11/06/23 03/11/24 release aspirin 81 mg tablet,delayed 81 mg PO DAILY 12/04/23 03/11/24 release cyanocobalamin (vitamin B-12) 1,000 mcg SQ WEEKLY 01/01/24 03/11/24 1,000 mcg/mL injection solution ondansetron 4 mg disintegrating 4 mg PO DAILY PRN . 01/01/24 03/11/24 tablet Previous Rx's Medication Instructions Recorded baclofen 5 mg tablet 5 mg PO TID MUSCLE SPASMS #90 tabs 11/10/23 promethazine 12.5 mg tablet 12.5 mg PO TID PRN nausea and 11/15/23 vomiting #20 tabs fezolinetant 45 mg tablet (Veozah) 45 mg PO DAILY #90 tabs 01/01/24 hydroxychloroquine 200 mg tablet 200 mg PO BID Lupus 90 days #180 01/18/24 tabs nystatin 100,000 unit/gram topical 1 applic topical BID yeast rash 02/01/24 powder #30 grams alendronate 10 mg tablet 10 mg PO DAILY 90 days #90 tabs 02/05/24 amitriptyline 25 mg tablet See Rx Instructions .Route 02/21/24 .COMPLEX #60 tabs hydrocodone 10 mg-acetaminophen 1 tab PO TID PRN pain given by 02/25/24 325 mg tablet Pain Management #90 tabs prednisone 20 mg tablet 20 mg PO BID #14 tabs 02/25/24 azithromycin 250 mg tablet 250 mg PO UD DOSE PK #6 tabs 03/11/24 (Zithromax) benzonatate 100 mg capsule 100 mg PO TIDP PRN Cough #30 caps 03/11/24 methylprednisolone 4 mg tablets in 4 mg PO DIRECTED 6 days #21 tabs 03/11/24 a dose pack Allergies Allergy/AdvReac Type Severity Reaction Status Date / Time gum mastic Allergy Unknown Verified 03/11/24 08:27 [From MASTISOL ADHESIVE] measles, mumps, and rubella Allergy Unknown Verified 03/11/24 08:27 vaccine [MEASLES, MUMPS, AND RUBELLA VACCINE] methyl salicylate Allergy Unknown Verified 03/11/24 08:27 [From MASTISOL ADHESIVE] Penicillins [PENICILLINS] Allergy Unknown Verified 03/11/24 08:27 storax Allergy Unknown Verified 03/11/24 08:27 [From MASTISOL ADHESIVE] Sulfa (Sulfonamide Allergy Unknown Verified 03/11/24 08:27 Antibiotics) [SULFA (SULFONAMIDE ANTIBIOTICS)] sumatriptan [From IMITREX] Allergy Unknown Verified 03/11/24 08:27 adhesive AdvReac Mild Rash Verified 03/11/24 08:27 Worker's Comp Is this a Worker's Comp case?: No [facility] Disclaimer: The information contained in this section may have been updated after the patient was seen, as this information can be updated by other users. Medical History Vasomotor symptoms due to menopause Stroke Lupus Asthma History of gastroesophageal reflux (GERD) Hypertension Dizziness Edema History of TIA (transient ischemic attack) History of DVT (deep vein thrombosis) Surgical History History of hysterectomy History of section History of appendectomy History of cholecystectomy Family History Other Coronary artery disease Social History Smoking Status: Never smoker second hand exposure: No alcohol intake: never substance use type: denies use current occupational status: other Travel in the last 8 weeks: None household members: spouse housing: house caffeine: Yes ROS Obtained: Yes All systems reviewed & no additional complaints except as documented Constitutional Constitutional: Reports chills and Reports fever(s) Eyes Eyes: Denies eye discharge ENT Ears, Nose, Mouth, and Throat: Reports as per HPI Cardiovascular Cardiovascular: Denies chest pain Respiratory Respiratory: Denies chest congestion and Reports cough Gastrointestinal Gastrointestingal: Reports nausea; Denies abdominal pain, constipation, cramping, diarrhea or vomiting Musculoskeletal Musculoskeletal: Denies arthralgias Integumentary/Breasts Skin/Breast: Denies rash Neurologic Neurologic: Denies paresthesias Physical Exam General General appearance: alert and in no apparent distress Head Head exam: atraumatic, normocephalic and normal inspection Eye Eye exam: Present normal appearance, PERRL and EOMI ENT ENT exam: Present mucous membranes moist and normal external ear exam Expanded ENT Exam TM/Canal exam: Bilateral TM: erythema and bulging Nose exam: Absent sinus tenderness Mouth exam: Present normal external inspection; Absent drooling Teeth exam: Present normal inspection Throat exam: Present tonsillar erythema, tonsillomegaly and tonsillar exudate Neck Neck exam: Present normal inspection, full ROM and trachea midline; Absent tenderness, meningismus or lymphadenopathy Chest Chest inspection: Present normal inspection and symmetric chest wall rise; Absent tenderness Respiratory Respiratory exam: Present normal lung sounds bilaterally; Absent respiratory distress, wheezes or stridor Cardiovascular Cardiovascular exam: Present regular rate and normal rhythm; Absent systolic murmur or diastolic murmur Abdominal Exam Abdominal exam: Present soft and normal bowel sounds; Absent distention, tenderness, guarding, rebound or rigidity Extremities Exam Extremities exam: Present normal inspection and normal capillary refill; Absent calf tenderness Back Exam Back exam: Present normal inspection and full ROM; Absent tenderness, CVA tenderness (R) or CVA tenderness (L) Neurological Exam Neurological exam: Present alert, oriented X3 and CN II-XII intact Psychiatric Psychiatric exam: Present normal affect and normal mood Skin Skin exam: Present warm, dry, intact and normal color Medical Decision Making Medical Records Medical records reviewed: No I reviewed the patient's medical records. Loi Inquiry Pt receiving controlled substance: No Vital Signs: 03/11/24 08:10 Temperature 98.0 F Temperature Source Oral Pulse Rate [Right Radial] 76 Respiratory Rate 18 02 Sat by Pulse Oximetry 100 Oxygen Delivery Method Room Air Lab Data Lab results reviewed: Yes I reviewed the patient's lab results. Lab Results 03/11/24 08:21: Strep Scn Rapid Clinic Negative Orders (Tests/Meds): ORDERS Category Date Time Status Strep Screen Confirmation Stat Micro 03/11/24 08:21 Received
--- NOTE | 2024-03-11 09:16 | PC.NURSE ---
Sent a rapid to lab via tube system
[2024-03-11 09:18] VITALS: BP 0/0; PULSE 76; RESP 18; TEMP 36.7; O2SAT 100
[2024-03-11 09:21] LABS: Influenza A, PCR Not Detected (NotDetected); Influenza B, PCR Not Detected (NotDetected)
[2024-03-11 10:15] LABS: Coronavirus 19, PCR Detected (NotDetected)
== END 2024-03-11 09:18 | disposition home or self-care (01) ==
PROVIDERS: Emergency Provider Nurse Practitioner Family; PCP Internal Medicine
DX: U07.1 COVID-19 (principal); J01.90 Acute sinusitis, unspecified; R07.0 Pain in throat; R05.9 Cough, unspecified; R50.9 Fever, unspecified
CPT/HCPCS: 87636; 87880; 99212; 99214; G0463

== ENCOUNTER 2024-03-14 08:57 | Outpatient (POV) | payer OTHER, SELFPAY ==
--- NOTE | 2024-03-14 09:11 | EXP.PAIN.SOA ---
[facility] Pain Management SOAP Note Subjective:: Patient is a pleasant 54-year-old female that comes our clinic today for follow-up visit after receiving low lumbar trigger point injections of the right paraspinous muscle. Patient reports 80% improvement terms of her overall low lumbar right-sided pain. Patient rates her pain today 3/10. Patient also receives [place] 10 mg 1 p.o. 3 times daily from our office. However, she is not due any medication refills today. Objective:: Patient is awake alert [place] x 3. No acute distress. Flexion-extension lumbar spine normal. Deep tendon reflexes upper lower extremities normal. There is no gross sensory deficit. Gait is normal. Assessment:: Myofascial pain lumbar back. Plan:: Patient will return to the clinic next month for medication refills. Otherwise, regarding any further injections she will let us know. [facility] Disclaimer: The information contained in this section may have been updated after the patient was seen, as this information can be updated by other users. Medical History Vasomotor symptoms due to menopause Stroke Lupus Asthma History of gastroesophageal reflux (GERD) Hypertension Dizziness Edema History of TIA (transient ischemic attack) History of DVT (deep vein thrombosis) Surgical History History of hysterectomy History of section History of appendectomy History of cholecystectomy Family History Other Coronary artery disease Social History Smoking Status: Never smoker second hand exposure: No alcohol intake: never substance use type: denies use current occupational status: other Travel in the last 8 weeks: None household members: spouse housing: house caffeine: Yes
[2024-03-14 10:14] VITALS: BP 156/78; PULSE 71; RESP 18; O2SAT 100; BMI 35.5
== END 2024-03-14 23:59 | disposition home or self-care (01) ==
LOC: SC.PAIN 08:57
PROVIDERS: PCP Internal Medicine; Visit Provider Nurse Anesthetist, Certified Registered
DX: M79.18 Myalgia, other site (principal); M54.50 Low back pain, unspecified
CPT/HCPCS: 99212; G0463

== ENCOUNTER 2024-03-26 13:21 | Outpatient (CLI) | payer OTHER, SELFPAY ==
[2024-03-26 14:22] LABS: PHA INR Fingerstick 4.1 (0.9-1.1)
== END 2024-03-26 14:26 ==
PROVIDERS: PCP Internal Medicine; Visit Provider Physician Assistant
DX: G45.9 Transient cerebral ischemic attack, unspecified (principal); Z79.01 Long term (current) use of anticoagulants
CPT/HCPCS: 85610; 99211; G0463

== ENCOUNTER 2024-03-26 13:42 | Emergency (ER) | payer OTHER, SELFPAY ==
[2024-03-26 13:43] VITALS: BP 130/92; PULSE 73; RESP 16; TEMP 36.6; O2SAT 99; BMI 33.6
[2024-03-26 13:44] VITALS: BMI 33.6
--- NOTE | 2024-03-26 13:44 | CT_ITS ---
FINAL REPORT CLINICAL HISTORY: stroke like symptoms COMPARISON: 07/17/2023 FINDINGS: CT HEAD Axial images of the head were obtained without contrast. Coronal reformatted images were also obtained. This study was performed with techniques to keep radiation doses as low as reasonably achievable (ALARA). Individualized dose reduction techniques using automated exposure control or adjustment of mA and/or kV according to the patient's size were employed. There is generalized age appropriate atrophy. There is no evidence of intracranial hemorrhage or mass. The ventricular size is within normal limits. There is no evidence of shift of the midline structures. No skull abnormality is seen on the bone window images. IMPRESSION: No acute intracranial abnormality. CTA HEAD Thin section axial CT with IV contrast supplemented with multiplanar reconstruction under CT angiogram protocol. 3-D reconstructions were performed. This study was performed with techniques to keep radiation doses as low as reasonably achievable (ALARA). Individualized dose reduction techniques using automated exposure control or adjustment of mA and/or kV according to the patient's size were employed. The distal vertebral, basilar and distal internal carotid arteries have an unremarkable appearance. No aneurysm is seen. Major intracranial vessels are patent without significant stenosis. IMPRESSION: There is no evidence of major branch occlusion or significant stenosis. Reviewed, Interpreted and Dictated by Mundo Horowitz III, MD Transcribed by Aruna Bazzi Authenticated and [facility]
--- NOTE | 2024-03-26 13:46 | XR_ITS ---
FINAL REPORT CLINICAL HISTORY: Stroke work up COMPARISON: 10/09/2023 FINDINGS: Two views of the chest were obtained. The heart size and pulmonary vascularity are within normal limits. The mediastinum is normal. No acute pulmonary abnormality is identified. There is no pneumothorax. The bony thorax is intact. IMPRESSION: No active cardiopulmonary disease. Reviewed, Interpreted and Dictated by Mundo Horowitz III, MD Transcribed by Aruna Bazzi Authenticated and . [facility]
--- NOTE | 2024-03-26 13:50 | CT_ITS ---
FINAL REPORT TECHNIQUE: Thin section axial CT with IV contrast supplemented with multiplanar reconstruction under CT angiogram protocol. This study was performed with techniques to keep radiation doses as low as reasonably achievable (ALARA). Individualized dose reduction techniques using automated exposure control or adjustment of mA and/or kV according to the patient''s size were employed. NASCET criteria was utilized during interpretation. CLINICAL HISTORY: Stroke like symptoms COMPARISON: 09/18/2022 FINDINGS: Aortic arch: Arch shows no significant narrowing. Great vessel origins are widely patent. Right carotid: No significant stenosis is seen of the cervical common or internal carotid artery. Left carotid: No significant stenosis is seen of the cervical common or internal carotid artery. Vertebral: The vertebral arteries are codominant. No significant stenosis is present. Left thyroid lobe nodule is stable from 09/2022. IMPRESSION: No evidence of major branch occlusion or significant stenosis. Reviewed, Interpreted and Dictated by Mundo Horowitz III, MD Transcribed by Aruna Bazzi Authenticated and [facility]
--- NOTE | 2024-03-26 13:51 | ED_ITS ---
Discharge Plan Disposition Patient Disposition: Home, Self-Care Prescriptions Prescriptions: No Action omeprazole 20 mg capsule,delayed release(DR/EC) 20 mg PO DAILY Patient Comments: TAKE 1 CAPSULE BY MOUTH EVERY DAY aspirin 81 mg tablet,delayed release (DR/EC) 81 mg PO DAILY cyanocobalamin (vitamin B-12) 1,000 mcg/mL solution 1,000 mcg SQ WEEKLY Patient Comments: INJECT 1 ML SUBCUTANEOUSLY ONCE A WEEK ondansetron 4 mg tablet,disintegrating 4 mg PO DAILY PRN (Reason: .) Patient Comments: TAKE 1 TABLET BY MOUTH TWICE A DAY NEEDED [place] 45 mg tablet 45 mg PO DAILY Qty: 90 3RF promethazine 12.5 mg tablet 12.5 mg PO TID PRN (Reason: nausea and vomiting) Qty: 20 0RF hydroxychloroquine 200 mg tablet 200 mg PO BID 90 Days Qty: 180 0RF nystatin 100,000 unit/gram powder 1 applic topical BID Qty: 30 0RF alendronate 10 mg tablet 10 mg PO DAILY 90 Days Qty: 90 2RF amitriptyline 25 mg tablet See Rx Instructions .ROUTE .COMPLEX Qty: 60 0RF Dose Instruction: TAKE 1 TO 2 TABLETS BY MOUTH AT BEDTIME Rx Instructions: TAKE 1 TO 2 TABLETS BY MOUTH AT BEDTIME albuterol sulfate 90 mcg/actuation HFA aerosol inhaler 1 puff inhalation Q6HP PRN (Reason: Shortness Of Breath) Rx Instructions: INHALE 1 PUFF BY MOUTH EVERY 6 HOURS NEEDED FOR SHORTNESS OF BREATH OR WHEEZING warfarin 2 mg Tablet 2 mg PO FR baclofen 5 mg tablet 5 mg PO TID Qty: 90 0RF azithromycin [Zithromax] 250 mg tablet 250 mg PO UD DOSE PK Qty: 6 0RF Rx Instructions: Take two (2) tablets today, then one (1) tablet days #2 thru #5 benzonatate 100 mg capsule 100 mg PO TIDP PRN (Reason: Cough) Qty: 30 0RF methylprednisolone 4 mg Tablets,Dose Pack 4 mg PO DIRECTED 6 Days Qty: 21 0RF Rx Instructions: Take 1 pack as directed for 6 days warfarin 5 mg tablet 2.5 mg PO SUMOTUWETHSA prednisone 20 mg tablet 20 mg PO BID Qty: 14 0RF hydrocodone-acetaminophen 10-325 mg tablet 1 tab PO TID PRN (Reason: pain given by Pain Management) Qty: 90 0RF Referrals Follow up/Referrals: Provider,Referral, MD [Referring] - See instructions Activity Restrictions/Add. Instructions Additional Instructions/Restrictions: No definitive evidence of a stroke or TIA. You do have a supratherapeutic INR please hold your Coumadin 1 dose as discussed and reinitiate as discussed. Come back with any worsening neurologic symptoms. Clinical Impressions Clinical Impression: Antiphospholipid antibody syndrome, Facial paresthesia, Supratherapeutic INR Discharge ED Provider: Marla Qureshi General Adult HPI General Chief complaint: Neuro Symptoms/Deficit Stated complaint: Stroke symptoms Time Seen by Provider: 03/26/24 13:45 History of Present Illness HPI narrative: Patient is a 54-year-old with a history of antiphospholipid syndrome chronically on Coumadin most recent with an INR 4.1 today presents today with concerns for strokelike symptoms. States about 35 minutes prior to arrival she started feeling like she was being pulled to the left and had some facial paresthesias. The pulling sensation has since resolved and her facial paresthesias persist. No weakness in her face no changes in coordination or vision no numbness weakness tingling in the arms or legs. She actually went to her pharmacist to monitor Coumadin clinic and he asked her to come to the emergency department. Related Data Home Medications Medication Instructions Recorded Confirmed warfarin 5 mg tablet 2.5 mg PO SUMOTUWETHSA Blood 10/24/22 03/14/24 thinner albuterol sulfate 90 mcg/actuation 1 puff inhalation Q6HP PRN 07/16/23 03/14/24 aerosol inhaler Shortness Of Breath warfarin 2 mg tablet 2 mg PO FR Blood Thinner 07/16/23 03/14/24 omeprazole 20 mg capsule,delayed 20 mg PO DAILY GERD 11/06/23 03/14/24 release aspirin 81 mg tablet,delayed 81 mg PO DAILY 12/04/23 03/14/24 release cyanocobalamin (vitamin B-12) 1,000 mcg SQ WEEKLY 01/01/24 03/14/24 1,000 mcg/mL injection solution ondansetron 4 mg disintegrating 4 mg PO DAILY PRN . 01/01/24 03/14/24 tablet Previous Rx's Medication Instructions Recorded baclofen 5 mg tablet 5 mg PO TID MUSCLE SPASMS #90 tabs 08/24/23 promethazine 12.5 mg tablet 12.5 mg PO TID PRN nausea and 11/15/23 vomiting #20 tabs fezolinetant 45 mg tablet ([place]) 45 mg PO DAILY #90 tabs 01/01/24 hydroxychloroquine 200 mg tablet 200 mg PO BID Lupus 90 days #180 01/18/24 tabs nystatin 100,000 unit/gram topical 1 applic topical BID yeast rash 02/01/24 powder #30 grams alendronate 10 mg tablet 10 mg PO DAILY 90 days #90 tabs 02/05/24 amitriptyline 25 mg tablet See Rx Instructions .Route 02/21/24 .COMPLEX #60 tabs hydrocodone 10 mg-acetaminophen 1 tab PO TID PRN pain given by 02/25/24 325 mg tablet Pain Management #90 tabs prednisone 20 mg tablet 20 mg PO BID #14 tabs 02/25/24 azithromycin 250 mg tablet 250 mg PO UD DOSE PK #6 tabs 03/11/24 (Zithromax) benzonatate 100 mg capsule 100 mg PO TIDP PRN Cough #30 caps 03/11/24 methylprednisolone 4 mg tablets in 4 mg PO DIRECTED 6 days #21 tabs 03/11/24 a dose pack Allergies Allergy/AdvReac Type Severity Reaction Status Date / Time gum mastic Allergy Unknown Verified 03/11/24 08:27 [From MASTISOL ADHESIVE] measles, mumps, and rubella Allergy Unknown Verified 03/11/24 08:27 vaccine [MEASLES, MUMPS, AND RUBELLA VACCINE] methyl salicylate Allergy Unknown Verified 03/11/24 08:27 [From MASTISOL ADHESIVE] Penicillins [PENICILLINS] Allergy Unknown Verified 03/11/24 08:27 storax Allergy Unknown Verified 03/11/24 08:27 [From MASTISOL ADHESIVE] Sulfa (Sulfonamide Allergy Unknown Verified 03/11/24 08:27 Antibiotics) [SULFA (SULFONAMIDE ANTIBIOTICS)] sumatriptan [From IMITREX] Allergy Unknown Verified 03/11/24 08:27 adhesive AdvReac Mild Rash Verified 03/11/24 08:27 [facility] Disclaimer: The information contained in this section may have been updated after the patient was seen, as this information can be updated by other users. Medical History Vasomotor symptoms due to menopause Stroke Lupus Asthma History of gastroesophageal reflux (GERD) Hypertension Dizziness Edema History of TIA (transient ischemic attack) History of DVT (deep vein thrombosis) Surgical History History of hysterectomy History of section History of appendectomy History of cholecystectomy Family History Other Coronary artery disease Social History Smoking Status: Unknown if ever smoked second hand exposure: No alcohol intake: never substance use type: denies use current occupational status: employed Travel in the last 8 weeks: None household members: spouse housing: house caffeine: Yes ROS Obtained: Yes All systems reviewed & no additional complaints except as documented Physical Exam General General appearance: alert Respiratory Respiratory exam: Present normal lung sounds bilaterally Cardiovascular Cardiovascular exam: Present regular rate Neurological Exam Neurological exam: Present alert, oriented X3, CN II-XII intact (Aside from left-sided facial paresthesias and diminished sensation to light touch) and normal gait; Absent motor sensory deficit Medical Decision Making Loi Inquiry Pt receiving controlled substance: No Vital Signs: 03/26/24 13:43 03/26/24 14:30 Temperature 97.9 F Temperature Source Oral Pulse Rate 70 Pulse Rate [Right Radial] 73 Respiratory Rate 16 Blood Pressure 151/87 H Blood Pressure [Right Arm] 130/92 H Blood Pressure Mean [Right Arm] 104 Blood Pressure Source [Right Arm] Automatic Cuff Blood Pressure Position [Right Arm] Sitting 02 Sat by Pulse Oximetry 99 100 Oxygen Delivery Method Room Air Lab Data Lab results reviewed: Yes I reviewed the patient's lab results. Lab Results 03/26/24 13:50: WBC 7.9, RBC 4.77, Hgb 13.8, Hct 43.2, MCV 90.6, MCH 29.0, MCHC 32.0, RDW 14.4, Plt Count 342, MPV 8.1, Neut % (Auto) 55.5, Lymph % (Auto) 33.1, Schuyler % (Auto) 5.8, Eos % (Auto) 4.3, Baso % (Auto) 1.2, Neut # (Auto) 4.4, Lymph # (Auto) 2.6, Schuyler # (Auto) 0.5, Eos # (Auto) 0.3, Baso # (Auto) 0.1, PT 42.3 H, INR 4.31 H, Sodium 141, Potassium 3.2 L, Chloride 101, Carbon Dioxide 30, Anion Gap 13.2, BUN 8, Creatinine 0.60, Estimated Creat Clear 148, Estimated GFR 105, Est GFR ( Amer) 127, Glucose 99, Calcium 9.1, Total Bilirubin 0.4, AST 45 H, ALT 49, Alkaline Phosphatase 96, Troponin I < 0.01, Total Protein 8.0, Albumin 4.3, Globulin 3.7 H, Albumin/Globulin Ratio 1.2 03/26/24 13:50 03/26/24 13:50 Orders (Tests/Meds): ED MEDICATIONS Discontinued Medications Generic Name Dose Route Start Last Admin Trade Name Freq PRN Reason Stop Dose Admin Iopamidol 100 ml 03/26/24 14:02 03/26/24 14:04 Iopamidol-370 (76%);100ml Bottle IV 03/26/24 14:03 100 ml ONCE ONE Administration Sodium Chloride 50 ml 03/26/24 14:02 03/26/24 14:04 0.9 % Sodium Chloride 50 Ml Vial IV 03/26/24 14:03 50 ml ONCE ONE Administration Sodium Chloride 10 ml 03/26/24 14:02 03/26/24 14:04 Sodium Chloride 0.9% 10ml Syr (Rad Only) IV 03/26/24 14:03 10 ml ONCE ONE Administration ORDERS Category Date Time Status CT angio neck Stat Cat Scan 03/26/24 13:[address] angio head with & w/o Stat Exams 03/26/24 13:44 Completed Chest XR 2 view (NOT portable) [XR chest 2V] Stat Exams 03/26/24 13:46 Completed Complete Blood Count Auto Diff Stat Lab 03/26/24 13:50 Completed Comprehensive Metabolic Panel Stat Lab 03/26/24 13:50 Completed Prothrombin Time INR Stat Lab 03/26/24 13:50 Completed Troponin I Q3H Lab 03/26/24 17:00 Ordered Troponin I Q3H Lab 03/26/24 20:00 Ordered Troponin I Stat Lab 03/26/24 13:50 Completed Medical Decision Narrative: 54-year-old presents today with left-sided facial paresthesias and concern for possible stroke. She is on Coumadin and has an INR of 4.1 possible she has an intracranial hemorrhage ischemic stroke would be less likely even in the setting of a hypercoagulable state. Her exam is objectively normal to me aside from some subjective facial paresthesias. Will get CT head noncontrasted and CTA head and neck and will reassess. CTAs performed to person interpreted shows no focal stenosis or hemorrhaging. Noncontrast is still pending. Serial neurologic exams patient is normal objectively she is already medically optimized she has been on statins in the past she is on Coumadin has failed Xarelto in the past also takes antiplatelet agents is very aware of restratification associated with TIAs/strokes. I am not objectively diagnosing her with a TIA right now her symptoms have been nonspecific. She is supratherapeutic on her INR we will hold a single dose and reinitiate after that. She will return to the emergency department with any further worsening of her symptoms. She is agreeable that there is no further benefit of coming in the hospital and I will closely follow the primary care doctor. Critical Care Critical Care Time Critical Care Time: No
[2024-03-26 14:03] LABS: Basophils # 0.1 K/mm3 (0-0.2); Basophils % 1.2 % (0.1-2.0); Eosinophils # 0.3 K/mm3 (0.0-0.4); Eosinophils % 4.3 % (0.1-12.0); Hematocrit 43.2 % (37.0-47.0); Hemoglobin 13.8 g/dL (12.2-16.2); Lymphocytes # 2.6 K/mm3 (0.7-4.5); Lymphocytes % 33.1 % (10-50); Mean Corpuscular Volume 90.6 fl (81-99); Mean Platelet Volume 8.1 fl (7.4-10.4); Monocytes # 0.5 K/mm3 (0.1-1.0); Monocytes % 5.8 % (1.7-9.3); Neutrophils # 4.4 K/mm3 (1.8-7.8); Neutrophils % 55.5 % (37.0-80.0); Platelet Count 342 K/mm3 (142-424); Red Blood Count 4.77 M/mm3 (4.20-5.40); Red Cell Distribution Width 14.4 % (11.5-17.5); White Blood Count 7.9 K/mm3 (4.8-10.8)
[2024-03-26] MEDS: 0.9 % SODIUM CHLORIDE 50 ML VIAL IV (14:04)
[2024-03-26] MEDS: IOPAMIDOL-370 (76%);100ML BOTTLE 100 ML IV (14:04)
[2024-03-26] MEDS: SODIUM CHLORIDE 0.9% 10ML SYR (RAD ONLY) 10 ML IV (14:04)
[2024-03-26 14:12] LABS: Alanine Aminotransferase 49 U/L (12-78); Albumin Level 4.3 g/dl (3.5-5.0); Albumin/Globulin Ratio 1.2 (1.1-1.8); Alkaline Phosphatase 96 U/L (38-126); Anion Gap 13.2 mEq/L (5-15); Aspartate Amino Transferase 45 U/L (14-36); Bilirubin,Total 0.4 mg/dl (0.2-1.3); Blood Urea Nitrogen 8 mg/dl (7-17); Calcium 9.1 mg/dl (8.4-10.2); Carbon Dioxide 30 mmol/L (22.0-30.0); Chloride 101 mmol/L (98-107); Creatinine Clearance Estimated 148 mL/min (50-200); Estimated Glomerular Filt Rate 105 ml/min (>60); GFR (African American) 127 ML/MIN (>60); Globulin 3.7 g/dL (1.3-3.2); Glucose 99 mg/dl (74-100); Potassium 3.2 mmoL/L (3.5-5.1); Sodium 141 mmol/L (136-145)
[2024-03-26 14:13] LABS: INR 4.31 (0.9-1.1); Prothrombin Time 42.3 seconds (10.1-12.5)
[2024-03-26 14:29] LABS: Troponin I < 0.01 ng/ml (0.00-0.034)
[2024-03-26 14:30] VITALS: BP 151/87; PULSE 70; O2SAT 100
[2024-03-26 15:35] VITALS: BP 139/83; PULSE 67; RESP 18; TEMP 36.6; O2SAT 98
== END 2024-03-26 15:38 | disposition home or self-care (01) ==
PROVIDERS: Emergency Provider Student in an Organized Health Care Education/Training Program; PCP Internal Medicine
DX: R20.2 Paresthesia of skin; D68.61 Antiphospholipid syndrome; E87.6 Hypokalemia; M32.9 Systemic lupus erythematosus, unspecified; I10 Essential (primary) hypertension; K21.9 Gastro-esophageal reflux disease without esophagitis; Z86.73 Personal history of transient ischemic attack (TIA), and cerebral infarction without residual deficits; Z86.718 Personal history of other venous thrombosis and embolism; Z79.01 Long term (current) use of anticoagulants
CPT/HCPCS: 70496; 70498; 71046; 80053; 84484; 85025; 85610; 99285; Q9967

== ENCOUNTER 2024-04-02 08:04 | Outpatient (POV) | payer OTHER, SELFPAY ==
[2024-04-02 08:43] VITALS: BP 135/75; PULSE 67; RESP 18; O2SAT 100; BMI 73.7
--- NOTE | 2024-04-02 08:53 | EXP.PAIN.SOA ---
[facility] Pain Management SOAP Note Subjective:: Patient is a pleasant 54-year-old female who presents today for medication refill and follow-up. Today she rates her pain a 6 out of 10. Patient does state that she is little bit more sore in her back and legs because she has been painting spindles at her home. Patient is currently managed with [place] 10 mg 3 times a day. Patient was previously on pregabalin however switched over to the amitriptyline and feels like that this just is not doing as well. Patient is requesting if we can go back to the [facility]. Her Loi has been reviewed and is appropriate. Review of Systems: General: No recent weight changes, no fever, no sleep disturbances Respiratory: No cough, no shortness of air, no recurring pulmonary infections Cardiovascular/peripheral vascular: No chest pain, no palpitations, no edema, no shortness of breath Gastrointestinal: No new onset incontinence, normal bowel movements reported Genitourinary: No new onset incontinence Musculoskeletal: Low back pain Psychiatric: [Normal mood/affect] Neurological: [Denies weakness in extremities], [denies balance issues] Objective:: Physical Exam: General: Alert and oriented x3, no acute distress, pleasant and cooperative Lungs: Respirations even and unlabored, symmetrical chest expansion Eyes: PERRL Musculoskeletal: Flexion and extension of lumbar [spine] somewhat guarded secondary to pain, [antalgic gait noted] Neurological: Speech clear, no gross sensory deficit Assessment:: Degenerative disc disease of lumbar spine with lumbar radiculopathy symptoms, myofascial pain Plan:: I will refill the patient's [place] and provide a 1 month supply of this medication as well as send in a prescription for 100 mg at bedtime. Patient will return to clinic in 1 month for reevaluation of symptoms and plan of care. Patient was discussed if she feels like her back pain continues to worsen we can look at doing an epidural. We will follow-up with this at her next visit. Risks and benefits of the medication have been explained in detail to the patient. The patient does understand the risk of dependence on the medication when given over a prolonged period. Patient has been advised of risks of oversedation with the prescribed medication. Narcan has been offered to the paitent in the event of oversedation. Patient has been advised that a family member should also be educated regarding administration of Narcan. The patient has been advised to consult with his/her primary care provider and pharmacist regarding drug-drug interaction of medications currently prescribed. Patient has been prescribed a controlled substance after being counseled on the medication, medication safety, and possible side effects. Opioid contract was reviewed and signed by the patient, and that they have agreed to all of the terms set forth by our compliance program. Patient has been instructed to contact the clinic with any concerns before the next appointment. Dr. Venegas has reviewed this note and agrees with this plan of care. This note was dictated using voice recognition software and make contain errors or omissions. [facility] Disclaimer: The information contained in this section may have been updated after the patient was seen, as this information can be updated by other users. Medical History Vasomotor symptoms due to menopause Stroke Lupus Asthma History of gastroesophageal reflux (GERD) Hypertension Dizziness Edema History of TIA (transient ischemic attack) History of DVT (deep vein thrombosis) Surgical History History of hysterectomy History of section History of appendectomy History of cholecystectomy Family History Other Coronary artery disease Social History Smoking Status: Unknown if ever smoked second hand exposure: No alcohol intake: never substance use type: denies use current occupational status: employed Travel in the last 8 weeks: None household members: spouse housing: house caffeine: Yes
== END 2024-04-02 23:59 | disposition home or self-care (01) ==
PROVIDERS: PCP Internal Medicine; Visit Provider Nurse Practitioner Family
DX: M51.16 Intervertebral disc disorders with radiculopathy, lumbar region (principal); M79.10 Myalgia, unspecified site
CPT/HCPCS: 99212; G0463

== ENCOUNTER 2024-04-04 07:59 | Outpatient (CLI) | payer OTHER, SELFPAY ==
[2024-04-04 11:42] LABS: PHA INR Fingerstick 2.4 (0.9-1.1)
== END 2024-04-04 11:48 ==
LOC: ACC 08:00
PROVIDERS: PCP Internal Medicine; Visit Provider Physician Assistant
DX: G45.8 Other transient cerebral ischemic attacks and related syndromes (principal); Z79.01 Long term (current) use of anticoagulants
CPT/HCPCS: 85610; 99211; G0463

== ENCOUNTER 2024-04-23 07:41 | Outpatient (CLI) | payer OTHER, SELFPAY ==
[2024-04-23 08:13] LABS: Basophils # 0.2 K/mm3 (0-0.2); Basophils % 2.2 % (0.1-2.0); Eosinophils # 0.3 K/mm3 (0.0-0.4); Eosinophils % 4.8 % (0.1-12.0); Hematocrit 41.1 % (37.0-47.0); Hemoglobin 13.6 g/dL (12.2-16.2); Lymphocytes # 2.5 K/mm3 (0.7-4.5); Lymphocytes % 36.9 % (10-50); Mean Corpuscular HGB Conc 33.1 g/dL (31.8-35.4); Mean Corpuscular Hemoglobin 29.9 pg (27.0-31.2); Mean Corpuscular Volume 90.1 fl (81-99); Mean Platelet Volume 8.4 fl (7.4-10.4); Monocytes # 0.3 K/mm3 (0.1-1.0); Monocytes % 4.1 % (1.7-9.3); Neutrophils # 3.6 K/mm3 (1.8-7.8); Platelet Count 332 K/mm3 (142-424); Red Blood Count 4.56 M/mm3 (4.20-5.40); Red Cell Distribution Width 14.4 % (11.5-17.5); White Blood Count 6.9 K/mm3 (4.8-10.8)
[2024-04-23 09:34] LABS: Alanine Aminotransferase 27 U/L (12-78); Albumin Level 3.8 g/dl (3.5-5.0); Alkaline Phosphatase 87 U/L (38-126); Aspartate Amino Transferase 32 U/L (14-36); Bilirubin,Indirect 0.4 mg/dL (0.0-0.9); Bilirubin,Total 0.4 mg/dl (0.2-1.3); Bilirubin,Unconjugated 0.5 mg/dL (0.0-1.1); Estimated Glomerular Filt Rate 129 ml/min (>60); GFR (African American) 156 ML/MIN (>60); Total Protein,Serum 6.6 g/dl (6.3-8.2)
[2024-04-23 09:39] LABS: C-Reactive Protein 5.5 mg/L (0-4)
[2024-04-23 09:47] LABS: Creatinine,Urine Random 155 mg/dL (Not Estab.)
[2024-04-23 12:50] LABS: Erythrocyte Sedimentation Rate 39 mm/hr (0-30)
[2024-04-24 08:19] LABS: Complement C3 158 mg/dL (82-167)
[2024-04-24 10:33] LABS: Anti-DNA (DS) Ab Qn <1 IU/mL (0-9)
[2024-04-24 19:15] LABS: Anti-Cardio Antibody IgM 36 MPL U/mL (0-12); Anti-Cardiolipin Antibody IgG <9 GPL U/mL (0-14); Anticardiolipin Ab,IgA,Qn <9 APL U/mL (0-11)
[2024-04-28 16:12] LABS: Beta-2 Glycoprotein I Ab, IgA <9 (0-25); Beta-2 Glycoprotein I Ab, IgG <9 (0-20); Beta-2 Glycoprotein I Ab, IgM <9 (0-32)
[2024-05-03 15:10] LABS: APTT 44.9 sec (.); Anti-Cardiolipin Antibody IgG <10 GPL (.); Anti-Cardiolipin Antibody IgM 32 MPL (.); Beta-2 Glycoprotein I Ab, IgA <10 SAU (.); Beta-2 Glycoprotein I Ab, IgG <10 SGU (.); Beta-2 Glycoprotein I Ab, IgM <10 SMU (.); Hexagonal Phase Phospholipid 8 sec (.); INR 3.6 ratio (.); Prothrombin Time 33.8 sec (.); Thrombin Time 17.6 sec (.)
== END 2024-04-23 23:59 | disposition home or self-care (01) ==
LOC: LAB 07:42
PROVIDERS: PCP Internal Medicine; Visit Provider Nurse Practitioner
DX: R76.8 Other specified abnormal immunological findings in serum (principal)
CPT/HCPCS: 36415; 80076; 82565; 82570; 84156; 85025; 85597; 85598; 85610; 85613; 85651; 85670; 85730; 86140; 86146; 86147; 86161; 86225

== ENCOUNTER 2024-04-30 08:25 | Outpatient (POV) | payer OTHER, SELFPAY ==
--- NOTE | 2024-04-30 08:45 | A.OFFVIS_ITS ---
[facility] Disclaimer: The information contained in this section may have been updated after the patient was seen, as this information can be updated by other users. Medical History Vasomotor symptoms due to menopause Stroke Lupus Asthma History of gastroesophageal reflux (GERD) Hypertension Dizziness Edema History of TIA (transient ischemic attack) History of DVT (deep vein thrombosis) Surgical History History of hysterectomy History of section History of appendectomy History of cholecystectomy Family History Other Coronary artery disease Social History Smoking Status: Unknown if ever smoked second hand exposure: No alcohol intake: never substance use type: denies use current occupational status: employed Travel in the last 8 weeks: None household members: spouse housing: house caffeine: Yes PM Subjective & Objective Subjective Subjective:: Patient is a pleasant 54-year-old female who presents today for medication refill and follow-up. Today she rates her pain an 8 out of 10. She denies any new trauma or injury however states that she has been having severe pain in her low back that does shoot sharp pains down her left leg. Patient states that sometimes it goes to her knee and then other times it goes all the way down to her foot. Patient states she has not had any falls. Patient is currently managed with [place] 10 mg 3 times a day and pregabalin 100 mg at bedtime. Patient states due to the worsening pain she has had to take a little bit more of her medication and is requesting if we can increase her pregabalin. Patient is also requesting if we can start her back on her prior muscle relaxer of baclofen . Her Loi has been reviewed and is appropriate. Review of Systems: General: No recent weight changes, no fever, no sleep disturbances Respiratory: No cough, no shortness of air, no recurring pulmonary infections Cardiovascular/peripheral vascular: No chest pain, no palpitations, no edema, no shortness of breath Gastrointestinal: No new onset incontinence, normal bowel movements reported Genitourinary: No new onset incontinence Musculoskeletal: Low back pain, left leg pain Psychiatric: [Normal mood/affect] Neurological: [Denies weakness in extremities], [denies balance issues] Pain at rest (0-10 scale): 8 Objective Objective:: Physical Exam: General: Alert and oriented x3, no acute distress, pleasant and cooperative Lungs: Respirations even and unlabored, symmetrical chest expansion Eyes: PERRL Musculoskeletal: Flexion and extension of lumbar [spine] somewhat guarded secondary to pain, [antalgic gait noted] extreme point tenderness along left mid lumbar area Neurological: Speech clear, no gross sensory deficit Has patient had previous pain injection?: No Conservative treatment options previously tried: Home exercise plan Length of treatment: Longer than 6 weeks and Prescription medications Length of treatment: Longer than 6 weeks Meds Home Medications and Allergies Home Medications Medication Instructions Recorded Confirmed Type warfarin 5 mg tablet 2.5 mg PO SUMOTUWETHSA Blood 10/24/22 04/22/24 History thinner albuterol sulfate 90 mcg/actuation 1 puff inhalation Q6HP PRN 07/16/23 04/22/24 History aerosol inhaler Shortness Of Breath warfarin 2 mg tablet 2 mg PO FR Blood Thinner 07/16/23 04/22/24 History baclofen 5 mg tablet 5 mg PO TID MUSCLE SPASMS #90 tabs 08/24/23 04/22/24 Rx aspirin 81 mg tablet,delayed 81 mg PO DAILY 12/04/23 04/22/24 History release cyanocobalamin (vitamin B-12) 1,000 mcg SQ WEEKLY 01/01/24 04/22/24 History 1,000 mcg/mL injection solution hydroxychloroquine 200 mg tablet 200 mg PO BID Lupus 90 days #180 01/18/24 04/22/24 Rx tabs alendronate 10 mg tablet 10 mg PO DAILY 90 days #90 tabs 02/05/24 04/22/24 Rx fezolinetant 45 mg tablet (Veozah) 45 mg PO DAILY #90 tabs 04/02/24 04/22/24 Rx hydrocodone 10 mg-acetaminophen 1 tab PO TID PRN pain given by 04/02/24 04/22/24 Rx 325 mg tablet Pain Management #90 tabs pregabalin 100 mg capsule 100 mg PO HS #30 caps 04/02/24 04/22/24 Rx New Prescriptions to Start Prescriptions: Allergies Allergy/AdvReac Type Severity Reaction Status Date / Time gum mastic Allergy Unknown Verified 04/22/24 09:14 [From MASTISOL ADHESIVE] measles, mumps, and rubella Allergy Unknown Verified 04/22/24 09:14 vaccine [MEASLES, MUMPS, AND RUBELLA VACCINE] methyl salicylate Allergy Unknown Verified 04/22/24 09:14 [From MASTISOL ADHESIVE] Penicillins [PENICILLINS] Allergy Unknown Verified 04/22/24 09:14 storax Allergy Unknown Verified 04/22/24 09:14 [From MASTISOL ADHESIVE] Sulfa (Sulfonamide Allergy Unknown Verified 04/22/24 09:14 Antibiotics) [SULFA (SULFONAMIDE ANTIBIOTICS)] sumatriptan [From IMITREX] Allergy Unknown Verified 04/22/24 09:14 adhesive AdvReac Mild Rash Verified 04/22/24 09:14 Assessment and Plan *Assessment and plan (1) Lumbar radiculopathy: Status: Chronic Category: Medical Code(s): M54.16 - Radiculopathy, lumbar region (2) Degenerative disc disease: Status: Chronic Qualifiers: Spinal region: lumbar Qualified Code(s): M51.36 - Other intervertebral disc degeneration, lumbar region Category: Medical Plan Due to the patient's worsening pain with increased spasms I have counseled the patient I would like to order updated imaging. I will order x-ray and CT without contrast of her lumbar spine. I will refill the patient's [place] and send also in prescriptions on her baclofen 5 mg 3 times daily and pregabalin 100 mg twice a day and provide a 1 month supply of this medication. I will also send in a 5 day dose of prednisone 20 mg twice daily. Patient will return to clinic in 2 weeks for reevaluation of symptoms and plan of care. Risks and benefits of the medication have been explained in detail to the patient. The patient does understand the risk of dependence on the medication when given over a prolonged period. Patient has been advised of risks of oversedation with the prescribed medication. Narcan has been offered to the paitent in the event of oversedation. Patient has been advised that a family member should also be educated regarding administration of Narcan. The patient has been advised to consult with his/her primary care provider and pharmacist regarding drug-drug interaction of medications currently prescribed. Patient has been prescribed a controlled substance after being counseled on the medication, medication safety, and possible side effects. Opioid contract was reviewed and signed by the patient, and that they have agreed to all of the terms set forth by our compliance program. Patient has been instructed to contact the clinic with any concerns before the next appointment. Dr. Venegas has reviewed this note and agrees with this plan of care. This note was dictated using voice recognition software and make contain errors or omissions.
[2024-04-30 08:50] VITALS: BP 154/85; PULSE 66; RESP 18; O2SAT 99; BMI 33.5
== END 2024-04-30 23:59 | disposition home or self-care (01) ==
PROVIDERS: Visit Provider Nurse Practitioner Family
DX: M51.16 Intervertebral disc disorders with radiculopathy, lumbar region (principal); Z79.899 Other long term (current) drug therapy
CPT/HCPCS: 99212; G0463

== ENCOUNTER 2024-04-30 08:50 | Outpatient (CLI) | payer OTHER, SELFPAY ==
--- NOTE | 2024-04-30 09:05 | XR_ITS ---
FINAL REPORT CLINICAL HISTORY: LBP..no trauma COMPARISON: 01/22/2023 FINDINGS: AP, lateral, and oblique views of the lumbar spine were obtained. There is no acute fracture or acute malalignment. Vertebral body height is preserved. . No acute paraspinal abnormality is identified. Mild degenerative change is present, stable since the prior films of January 2023. IMPRESSION: No acute osseous abnormalities lumbar spine. Mild degenerative change. Reviewed, Interpreted and Dictated by Michaela Carlson MD Transcribed by Kelly Masters Authenticated and [facility]
== END 2024-04-30 23:59 | disposition home or self-care (01) ==
LOC: RAD 08:51
PROVIDERS: PCP Internal Medicine; Visit Provider Nurse Practitioner Family
DX: M54.50 Low back pain, unspecified (principal)
CPT/HCPCS: 72110

== ENCOUNTER 2024-05-02 07:54 | Outpatient (CLI) | payer OTHER, SELFPAY ==
[2024-05-02 08:11] LABS: PHA INR Fingerstick 3.3 (0.9-1.1)
== END 2024-05-02 08:13 ==
LOC: ACC 07:55
PROVIDERS: PCP Physician Assistant; Visit Provider Physician Assistant
DX: G45.9 Transient cerebral ischemic attack, unspecified (principal); Z79.01 Long term (current) use of anticoagulants
CPT/HCPCS: 85610; 99211; G0463

== ENCOUNTER 2024-05-06 12:20 | Outpatient (CLI) | payer OTHER, SELFPAY | END 2024-05-06 23:59 | disposition home or self-care (01) | LOC: LAB.DROPOF 05-07 12:21 | PROVIDERS: PCP Nurse Practitioner Family; Visit Provider Nurse Practitioner Family | DX: N39.0 Urinary tract infection, site not specified (principal) | CPT/HCPCS: 87086 ==

== ENCOUNTER 2024-05-07 07:08 | Outpatient (CLI) | payer OTHER, SELFPAY ==
--- NOTE | 2024-05-07 07:37 | CT_ITS ---
FINAL REPORT TECHNIQUE: Thin section noncontrast axial CT with sagittal reconstructions. CLINICAL HISTORY: LOW BACK PAIN COMPARISON: 05/01/2023 FINDINGS: CT LUMBAR SPINE No fracture is present. Alignment is normal. T12-L1: No significant disc disease is present. There is no canal stenosis. L1-L2: Minimal annular disc bulge. L2-L3: Mild annular disc bulge. L3-L4: [id number] bulge asymmetric to the left. Left lateral recess stenosis with probable mass effect on the left L4 nerve root. L4-L5: Mild annular disc bulge, asymmetric to the left. L5-S1: No significant disc disease is present. There is no canal stenosis. IMPRESSION: Disc abnormalities, most pronounced at L3-4 and L4-5. Consider MR follow-up. This study was performed using automated techniques to achieve radiation exposure as low as reasonably achievable Reviewed, Interpreted and Dictated by Mina Wright MD Transcribed by Jenna Hammonds Authenticated and [facility]
== END 2024-05-07 23:59 | disposition home or self-care (01) ==
LOC: RAD 07:09
PROVIDERS: Visit Provider Nurse Practitioner Family
DX: M54.50 Low back pain, unspecified (principal)
CPT/HCPCS: 72131

== ENCOUNTER 2024-05-14 08:02 | Outpatient (POV) | payer OTHER, SELFPAY ==
[2024-05-14 09:00] VITALS: BP 149/88; PULSE 67; RESP 18; O2SAT 99; BMI 33.2
--- NOTE | 2024-05-14 09:00 | EXP.PAIN.SOA ---
[facility] Disclaimer: The information contained in this section may have been updated after the patient was seen, as this information can be updated by other users. Medical History Vasomotor symptoms due to menopause Stroke Lupus Asthma History of gastroesophageal reflux (GERD) Hypertension Dizziness Edema History of TIA (transient ischemic attack) History of DVT (deep vein thrombosis) Surgical History History of hysterectomy History of section History of appendectomy History of cholecystectomy Family History Other Coronary artery disease Social History Smoking Status: Unknown if ever smoked second hand exposure: No alcohol intake: never substance use type: denies use current occupational status: employed Travel in the last 8 weeks: None household members: spouse housing: house caffeine: Yes PM Subjective & Objective Subjective Subjective:: Patient is a pleasant 54-year-old female who presents today for follow-up of lumbar CT. Today she rates her pain a 8 out of 10. Patient does state that she did have a bad fall last week due to her left leg giving out. She states that she continues to have this severe pain that is all in her low back and radiates down the left extremity. She states the pain does interfere with her ability perform activities of daily living such as cooking or cleaning or even simple ambulation. She states she has continued weakness and feels like she drags her leg a lot. Patient was given oral steroids from our office and then ended up getting a second dose of oral steroids from her primary care after her fall and still none of that was making any difference. Patient is currently managed with [place] 10 mg 3 times a day, pregabalin 100 mg at bedtime and baclofen 5 mg 3 times daily. Patient does state due to the worsening pain she has been having to take her medicines a little bit more frequently and is asking if we can go up on these. She does state that our referral to neurosurgery has her going in next week on the seventh. Her Loi has been reviewed and is appropriate. Review of Systems: General: No recent weight changes, no fever, no sleep disturbances Respiratory: No cough, no shortness of air, no recurring pulmonary infections Cardiovascular/peripheral vascular: No chest pain, no palpitations, no edema, no shortness of breath Gastrointestinal: No new onset incontinence, normal bowel movements reported Genitourinary: No new onset incontinence Musculoskeletal: Low back pain, left leg pain Psychiatric: [Normal mood/affect] Neurological: [Denies weakness in extremities], [denies balance issues] Pain at rest (0-10 scale): 8 Objective Objective:: Physical Exam: General: Alert and oriented x3, no acute distress, pleasant and cooperative Lungs: Respirations even and unlabored, symmetrical chest expansion Eyes: PERRL Musculoskeletal: Flexion and extension of lumbar [spine] somewhat guarded secondary to pain, [antalgic gait noted] positive left leg raise with decreased sensation to light touch and decreased reflexes Neurological: Speech clear, no gross sensory deficit FINDINGS: CT LUMBAR SPINE No fracture is present. Alignment is normal. T12-L1: No significant disc disease is present. There is no canal stenosis. L1-L2: Minimal annular disc bulge. L2-L3: Mild annular disc bulge. L3-L4: Wrbg-sg-sdodoxwl bulge asymmetric to the left. Left lateral recess stenosis with probable mass effect on the left L4 nerve root. L4-L5: Mild annular disc bulge, asymmetric to the left. L5-S1: No significant disc disease is present. There is no canal stenosis. IMPRESSION: Disc abnormalities, most pronounced at L3-4 and L4-5. Consider MR follow-up. This study was performed using automated techniques to achieve radiation exposure as low as reasonably achievable Reviewed, Interpreted and Dictated by Mina Wright MD Transcribed by Jenna Hammonds Authenticated and [facility] Has patient had previous pain injection?: No Conservative treatment options previously tried: Home exercise plan Length of treatment: Longer than 6 weeks and Prescription medications Length of treatment: Longer than 6 weeks Meds Home Medications and Allergies Home Medications ?Medication ?Instructions ?Recorded ?Confirmed ?Type warfarin 5 mg tablet 2.5 mg PO SUMOTUWETHSA Blood 10/24/22 05/06/24 History thinner albuterol sulfate 90 mcg/actuation 1 puff inhalation Q6HP PRN 07/16/23 05/06/24 History aerosol inhaler Shortness Of Breath warfarin 2 mg tablet 2 mg PO FR Blood Thinner 07/16/23 05/06/24 History aspirin 81 mg tablet,delayed 81 mg PO DAILY 12/04/23 05/06/24 History release cyanocobalamin (vitamin B-12) 1,000 mcg SQ WEEKLY 01/01/24 05/06/24 History 1,000 mcg/mL injection solution hydroxychloroquine 200 mg tablet 200 mg PO BID Lupus 90 days #180 01/18/24 05/06/24 Rx tabs alendronate 10 mg tablet 10 mg PO DAILY 90 days #90 tabs 02/05/24 05/06/24 Rx fezolinetant 45 mg tablet (Veozah) 45 mg PO DAILY #90 tabs 04/02/24 05/06/24 Rx baclofen 5 mg tablet 5 mg PO TID MUSCLE SPASMS #90 tabs 04/30/24 05/06/24 Rx hydrocodone 10 mg-acetaminophen 1 tab PO TID PRN pain given by 04/30/24 05/06/24 Rx 325 mg tablet Pain Management #90 tabs pregabalin 100 mg capsule 100 mg PO BID #60 caps 04/30/24 05/06/24 Rx prednisone 20 mg tablet 20 mg PO BID 5 days #10 tabs 05/06/24 05/06/24 Rx New Prescriptions to Start Prescriptions: Allergies Allergy/AdvReac Type Severity Reaction Status Date / Time gum mastic Allergy Unknown Verified 05/06/24 11:01 [From MASTISOL ADHESIVE] measles, mumps, and rubella Allergy Unknown Verified 05/06/24 11:01 vaccine [MEASLES, MUMPS, AND RUBELLA VACCINE] methyl salicylate Allergy Unknown Verified 05/06/24 11:01 [From MASTISOL ADHESIVE] Penicillins [PENICILLINS] Allergy Unknown Verified 05/06/24 11:01 storax Allergy Unknown Verified 05/06/24 11:01 [From MASTISOL ADHESIVE] Sulfa (Sulfonamide Allergy Unknown Verified 05/06/24 11:01 Antibiotics) [SULFA (SULFONAMIDE ANTIBIOTICS)] sumatriptan [From IMITREX] Allergy Unknown Verified 05/06/24 11:01 adhesive AdvReac Mild Rash Verified 05/06/24 11:01 Assessment and Plan *Assessment and plan (1) Lumbar nerve root impingement: Status: Acute Category: Medical Code(s): M54.16 - Radiculopathy, lumbar region (2) Degenerative disc disease: Status: Chronic Qualifiers: Spinal region: lumbar Qualified Code(s): M51.36 - Other intervertebral disc degeneration, lumbar region Category: Medical (3) Lumbar radiculopathy: Status: Chronic Category: Medical Code(s): M54.16 - Radiculopathy, lumbar region Plan Patient is experiencing significant pain throughout her low back with radiating symptoms down her entire left extremity. Patient did have limited range of motion of her lumbar spine with a positive left leg raise and decreased sensation light touch. I did discuss with the patient that I do believe she would benefit from a lumbar epidural steroid injection. Risk and benefits were discussed with patient and she would like to proceed forward with this plan of care. Patient is currently on blood thinner that is written by Dr. Thao's office however it was originally started by Dr. Dyer. I have discussed with the patient that we will reach out to their offices to confirm she can stop this medication. I did also discuss with the patient that with her neurosurgery consult next week to call us and let us know if they would like us to proceed forward with this injection or if they want to hold off on any additional steroids in order to do surgery. Patient acknowledges understanding. Patient will be sent refills on her medications with changes to some. I will refill her [place] 10 mg and make it 4 times a day, pregabalin 100 mg to 3 times a day and baclofen 10 mg to 4 times a day. Patient will be scheduled for a lumbar epidural steroid injection L3-L4 under fluoroscopy Risks and benefits of the medication have been explained in detail to the patient. The patient does understand the risk of dependence on the medication when given over a prolonged period. Patient has been advised of risks of oversedation with the prescribed medication. Narcan has been offered to the paitent in the event of oversedation. Patient has been advised that a family member should also be educated regarding administration of Narcan. The patient has been advised to consult with his/her primary care provider and pharmacist regarding drug-drug interaction of medications currently prescribed. Patient has been prescribed a controlled substance after being counseled on the medication, medication safety, and possible side effects. Opioid contract was reviewed and signed by the patient, and that they have agreed to all of the terms set forth by our compliance program. Patient has been instructed to contact the clinic with any concerns before the next appointment. Dr. Venegas has reviewed this note and agrees with this plan of care. This note was dictated using voice recognition software and make contain errors or omissions.
--- NOTE | 2024-05-22 10:06 | PC.NURSE ---
Pt called asking about dosing of Lovenox for bridge dose r/t her PM procedure next week. Pt reports when on Lovenox previously she did not tolerate a normal dosage of lovenox and had to be decreased. Pt stated to review Dr. Dyer's notes it should be in there. Looked at Dr. Dyer's notes, it was charted that pt dose had to be decreased from 1mg/kg to 60 mg r/t bruising, bleeding at inj site. contacted Dr. Dyer's off spoke with his nurse Ivonne. Ivonne then called back at [address] Dyer who states to decrease previous order dosage given to Lovenox 60mg BID. RUDDY Boogie had contacted [facility] to change prescription order and contacted the pt to update her on change in dosing.
== END 2024-05-14 23:59 | disposition home or self-care (01) ==
PROVIDERS: PCP Internal Medicine; Visit Provider Nurse Practitioner Family
DX: M51.16 Intervertebral disc disorders with radiculopathy, lumbar region (principal); Z73.89 Other problems related to life management difficulty; Z79.01 Long term (current) use of anticoagulants
CPT/HCPCS: 99212; G0463

== ENCOUNTER 2024-05-20 07:52 | Outpatient (CLI) | payer OTHER, SELFPAY ==
[2024-05-20 08:39] LABS: Basophils # 0.1 K/mm3 (0-0.2); Basophils % 1.4 % (0.1-2.0); Eosinophils # 0.3 K/mm3 (0.0-0.4); Hemoglobin 13.4 g/dL (12.2-16.2); Lymphocytes # 2.8 K/mm3 (0.7-4.5); Lymphocytes % 44.5 % (10-50); Mean Corpuscular HGB Conc 31.9 g/dL (31.8-35.4); Mean Corpuscular Hemoglobin 29.6 pg (27.0-31.2); Mean Corpuscular Volume 92.5 fl (81-99); Mean Platelet Volume 8.6 fl (7.4-10.4); Monocytes # 0.4 K/mm3 (0.1-1.0); Monocytes % 5.8 % (1.7-9.3); Neutrophils # 2.8 K/mm3 (1.8-7.8); Neutrophils % 44.3 % (37.0-80.0); Platelet Count 286 K/mm3 (142-424); Red Blood Count 4.54 M/mm3 (4.20-5.40); Red Cell Distribution Width 13.8 % (11.5-17.5); White Blood Count 6.3 K/mm3 (4.8-10.8)
[2024-05-20 08:55] LABS: Albumin Level 3.7 g/dl (3.5-5.0); Chloride 108 mmol/L (98-107); Potassium 4.2 mmoL/L (3.5-5.1); Sodium 141 mmol/L (136-145)
[2024-05-20 08:58] LABS: Alanine Aminotransferase 41 U/L (12-78); Albumin/Globulin Ratio 1.4 (1.1-1.8); Alkaline Phosphatase 78 U/L (38-126); Anion Gap 6.2 mEq/L (5-15); Aspartate Amino Transferase 58 U/L (14-36); Bilirubin,Total 0.5 mg/dl (0.2-1.3); Blood Urea Nitrogen 9 mg/dl (7-17); Calcium 8.4 mg/dl (8.4-10.2); Carbon Dioxide 31 mmol/L (22.0-30.0); Estimated Glomerular Filt Rate 129 ml/min (>60); GFR (African American) 156 ML/MIN (>60); Globulin 2.6 g/dL (1.3-3.2); Glucose 92 mg/dl (74-100); Iron 66 ug/dL (37-170); Total Protein,Serum 6.3 g/dl (6.3-8.2)
[2024-05-20 09:07] LABS: Total Iron Binding Capacity 356 ug/dL (265-497)
[2024-05-20 09:16] LABS: 25-OH Vitamin D, Total 33.6 ng/mL (30-100)
[2024-05-20 09:33] LABS: Ferritin 19.6 ng/ml (11.1-264)
[2024-05-20 12:48] LABS: Intact Parathyroid Hormone 90.1 pg/mL (7.5-53.5)
[2024-05-20 13:29] LABS: Vitamin B12 > 1000 pg/mL (239-931)
[2024-05-23 17:43] LABS: Vitamin B1 157.4 nmol/L (66.5-200.0)
== END 2024-05-20 23:59 | disposition home or self-care (01) ==
LOC: LAB 07:53
PROVIDERS: PCP Internal Medicine; Visit Provider Surgery
DX: K91.2 Postsurgical malabsorption, not elsewhere classified (principal)
CPT/HCPCS: 36415; 80053; 82306; 82607; 82728; 83540; 83550; 83970; 84425; 85025

== ENCOUNTER 2024-05-27 08:43 | Day surgery (SDC) | payer OTHER, SELFPAY ==
[2024-05-27 08:58] VITALS: BP 159/71; PULSE 58; RESP 18; TEMP 36.4; O2SAT 100; BMI 33.6
[2024-05-27] MEDS: methylPREDNISolone ACETATE 80MG/ML VIAL 80 MG (09:17)
[2024-05-27 09:18] VITALS: BP 138/67; PULSE 62; RESP 18; O2SAT 97
--- NOTE | 2024-05-27 09:23 | P.PCN_ITS ---
Procedure Date: 05/27/24 Time: 09:15 Anesthesiologist:: Anand Pedro CRNA Complications:: None Pre-procedure Diagnosis:: Degenerative disc lumbar spine multilevels. Lumbar radiculopathy. Lumbar postlaminectomy syndrome. Post-procedure Diagnosis:: Same. Indications for Procedure:: Patient is a pleasant 54-year-old female comes our clinic today for a lumbar epidural steroid injection at L3-4 level. Patient describes low back pain as constant, dull, aching. Patient also reports bilateral hip and leg radicular symptoms. She rates her pain 7/10. Procedure Details:: Procedure: Lumbar epidural steroid injection under fluoroscopy Informed consent was obtained and the risks and benefits of the procedure were explained to the patient. The patient was taken to the procedure room and noninvasive monitors placed, including noninvasive blood pressure cuff and pulse oximeter. The back was viewed using C-arm Fluoroscopy and prepped using Chloraprep as a cleansing solution and the L3-4 interspace was palpated. Skin and subcutaneous tissues were anesthetized using lidocaine 1.5% and a 25-gauge needle. After this, an 18-gauge Touhy epidural needle was placed into the L3-4 interspace and advanced using fluoroscopic guidance and loss of resistance to air until the epidural space was encountered. After confirmation of needle placement in the epidural space, with dye, a solution containing normal saline, 3 mL and Depo-Medrol 80 mg were incrementally injected into the lumbar epidural space. The patient tolerated the procedure well with no complications. The patient was observed in the Pain Clinic and then discharged home neurologic ally intact. Plan and Disposition:: Patient was discharged without incident.
[2024-05-27 09:25] VITALS: BP 139/68; PULSE 56; RESP 18; O2SAT 100
[2024-05-27 09:41] VITALS: BP 138/67; PULSE 62; RESP 18; O2SAT 96
== END 2024-05-27 09:25 | disposition home or self-care (01) ==
PROVIDERS: PCP Internal Medicine; Visit Provider Nurse Anesthetist, Certified Registered
DX: M51.16 Intervertebral disc disorders with radiculopathy, lumbar region (principal); M96.1 Postlaminectomy syndrome, not elsewhere classified
CPT/HCPCS: 62323; J1010

== ENCOUNTER 2024-05-30 07:28 | Outpatient (CLI) | payer OTHER, SELFPAY ==
[2024-05-30 13:48] LABS: PHA INR Fingerstick 1.1 (0.9-1.1)
== END 2024-05-30 14:00 ==
LOC: LAB 07:29 → ACC 11:59
PROVIDERS: PCP Family Medicine; Visit Provider Family Medicine
DX: R79.89 Other specified abnormal findings of blood chemistry (principal); Z79.01 Long term (current) use of anticoagulants
CPT/HCPCS: 36415; 82330; 85610; 99211; G0463

== ENCOUNTER 2024-06-02 07:43 | Outpatient (CLI) | payer OTHER, SELFPAY ==
[2024-06-02 09:34] LABS: PHA INR Fingerstick 1.7 (0.9-1.1)
== END 2024-06-02 09:35 ==
LOC: ACC 07:44
PROVIDERS: PCP Internal Medicine; Visit Provider Physician Assistant
DX: Z79.01 Long term (current) use of anticoagulants (principal); G45.9 Transient cerebral ischemic attack, unspecified
CPT/HCPCS: 85610; 99211; G0463

== ENCOUNTER 2024-06-02 11:39 | Emergency (ER) | payer OTHER, SELFPAY ==
[2024-06-02 11:39] VITALS: BP 168/88; PULSE 71; RESP 22; TEMP 36.7; O2SAT 100; BMI 33.6
--- NOTE | 2024-06-02 11:53 | CT_ITS ---
FINAL REPORT TECHNIQUE: Axial images through the abdomen and pelvis were performed without contrast. This study was performed with techniques to keep radiation doses as low as reasonably achievable, (ALARA). Individualized dose reduction techniques using automated exposure control or adjustment of mA and/or kV according to the patient's size were employed. CLINICAL HISTORY: right flank pain rad right groin COMPARISON: None FINDINGS: Abdomen: The lung bases are clear. The liver parenchyma is homogeneous. The gallbladder is absent. and kidneys are unremarkable. There is a 2 mm obstructing stone in the distal right ureter adjacent to the right UVJ best seen on image 4 of series 3. There is mild right hydronephrosis and hydroureter. Pelvis: The urinary bladder is decompressed. Surgical clips are noted in the right lower quadrant and the appendix is not visualized. There is no pelvic mass or inflammation. IMPRESSION: 2 mm obstructing stone distal right ureter with mild right hydronephrosis and hydroureter. Reviewed, Interpreted and Dictated by David Bee MD Transcribed by Aruna Bazzi Authenticated and [facility]
--- NOTE | 2024-06-02 11:55 | ED_ITS ---
Discharge Plan Disposition Patient Disposition: Home, Self-Care Prescriptions Prescriptions: New hydrocodone-acetaminophen 5-325 mg tablet 1 tab PO Q6H PRN (Reason: pain) 3 Days Qty: 12 0RF tamsulosin [Flomax] 0.4 mg capsule 0.4 mg PO DAILY 7 Days Qty: 7 0RF ondansetron 4 mg tablet,disintegrating 4 mg PO Q6H PRN (Reason: nausea and vomiting) 5 Days Qty: 20 0RF No Action aspirin 81 mg tablet,delayed release (DR/EC) 81 mg PO DAILY cyanocobalamin (vitamin B-12) 1,000 mcg/mL solution 1,000 mcg SQ WEEKLY Patient Comments: INJECT 1 ML SUBCUTANEOUSLY ONCE A WEEK prednisone 20 mg tablet 20 mg PO BID 5 Days Qty: 10 0RF cyclobenzaprine 10 mg tablet PO enoxaparin 60 mg/0.6 mL syringe SQ hydroxychloroquine 200 mg tablet 200 mg PO BID 90 Days Qty: 180 0RF alendronate 10 mg tablet 10 mg PO DAILY 90 Days Qty: 90 2RF Veozah 45 mg tablet 45 mg PO DAILY Qty: 90 3RF albuterol sulfate 90 mcg/actuation HFA aerosol inhaler 1 puff inhalation Q6HP PRN (Reason: Shortness Of Breath) Rx Instructions: INHALE 1 PUFF BY MOUTH EVERY 6 HOURS NEEDED FOR SHORTNESS OF BREATH OR WHEEZING warfarin 2 mg Tablet 2 mg PO FR baclofen 5 mg tablet 5 mg PO TID Qty: 90 0RF warfarin 5 mg tablet 2.5 mg PO SUMOTUWETHSA baclofen 10 mg tablet 10 mg PO QID Qty: 120 0RF hydrocodone-acetaminophen 10-325 mg tablet 1 tab PO QID Qty: 120 0RF pregabalin 100 mg capsule 100 mg PO TID Qty: 90 0RF Referrals Follow up/Referrals: Vern Ortiz MD [Staff Physician] - See instructions Valentin Daniel MD [Primary Care Provider] - See instructions Activity Restrictions/Add. Instructions Additional Instructions/Restrictions: You have a 2 mm distal ureteral obstructing kidney stone with associated hydronephrosis. As discussed this almost certainly will pass on its own. You been given symptomatic medications please follow-up with urology if not improving. Return with any refractory pain nausea and vomiting high fevers or other concerns. Clinical Impressions Clinical Impression: Hydronephrosis concurrent with and due to calculi of kidney and ureter Print Language Print Language: Sinhala Discharge ED Provider: Marla Qureshi General Adult HPI General Chief complaint: PAIN Stated complaint: pain in lower right side and back Time Seen by Provider: 06/02/24 11:46 History of Present Illness HPI narrative: Patient is a 54-year-old female presents today with right flank pain intermittently radiating into her right groin. Pain has been colicky in nature. Not constant severe at times. Has had some urinary symptoms associate with this such as frequency urgency. Denies any fevers or chills. Has had a kidney stone years past. Denies any significant anterior abdominal discomfort. Also has nausea associated with the pain. No definitive hematuria that she has noticed. She does have a history of antiphospholipid syndrome and is on chronic anticoagulation with Coumadin. Related Data Home Medications ?Medication ?Instructions ?Recorded ?Confirmed warfarin 5 mg tablet 2.5 mg PO SUMOTUWETHSA Blood 10/24/22 05/28/24 thinner albuterol sulfate 90 mcg/actuation 1 puff inhalation Q6HP PRN 07/16/23 05/28/24 aerosol inhaler Shortness Of Breath warfarin 2 mg tablet 2 mg PO FR Blood Thinner 07/16/23 05/28/24 aspirin 81 mg tablet,delayed 81 mg PO DAILY 12/04/23 05/28/24 release cyanocobalamin (vitamin B-12) 1,000 mcg SQ WEEKLY 01/01/24 05/28/24 1,000 mcg/mL injection solution cyclobenzaprine 10 mg tablet mg PO 05/28/24 05/28/24 enoxaparin 60 mg/0.6 mL mg SQ 05/28/24 05/28/24 subcutaneous syringe Previous Rx's ?Medication ?Instructions ?Recorded hydroxychloroquine 200 mg tablet 200 mg PO BID Lupus 90 days #180 01/18/24 tabs alendronate 10 mg tablet 10 mg PO DAILY 90 days #90 tabs 02/05/24 fezolinetant 45 mg tablet (Veozah) 45 mg PO DAILY #90 tabs 04/02/24 baclofen 5 mg tablet 5 mg PO TID MUSCLE SPASMS #90 tabs 04/30/24 prednisone 20 mg tablet 20 mg PO BID 5 days #10 tabs 05/06/24 baclofen 10 mg tablet 10 mg PO QID #120 tabs 05/14/24 hydrocodone 10 mg-acetaminophen 1 tab PO QID #120 tabs 05/14/24 325 mg tablet pregabalin 100 mg capsule 100 mg PO TID #90 caps 05/14/24 hydrocodone 5 mg-acetaminophen 325 1 tab PO Q6H PRN pain 3 days #12 06/02/24 mg tablet tabs ondansetron 4 mg disintegrating 4 mg PO Q6H PRN nausea and 06/02/24 tablet vomiting 5 days #20 tabs tamsulosin 0.4 mg capsule (Flomax) 0.4 mg PO DAILY 7 days #7 caps 06/02/24 Allergies Allergy/AdvReac Type Severity Reaction Status Date / Time gum mastic Allergy Unknown Verified 05/28/24 14:09 [From MASTISOL ADHESIVE] measles, mumps, and rubella Allergy Unknown Verified 05/28/24 14:09 vaccine [MEASLES, MUMPS, AND RUBELLA VACCINE] methyl salicylate Allergy Unknown Verified 05/28/24 14:09 [From MASTISOL ADHESIVE] Penicillins [PENICILLINS] Allergy Unknown Verified 05/28/24 14:09 storax Allergy Unknown Verified 05/28/24 14:09 [From MASTISOL ADHESIVE] Sulfa (Sulfonamide Allergy Unknown Verified 05/28/24 14:09 Antibiotics) [SULFA (SULFONAMIDE ANTIBIOTICS)] sumatriptan [From IMITREX] Allergy Unknown Verified 05/28/24 14:09 adhesive AdvReac Mild Rash Verified 05/28/24 14:09 PFSH PFSH Disclaimer: The information contained in this section may have been updated after the patient was seen, as this information can be updated by other users. Medical History (Updated 06/02/24 @ 13:19 by Marla Qureshi MD) Vasomotor symptoms due to menopause Stroke Lupus Asthma History of gastroesophageal reflux (GERD) Hypertension Dizziness Edema History of TIA (transient ischemic attack) History of DVT (deep vein thrombosis) Surgical History (Updated 05/28/24 @ 14:56 by Valentin Daniel MD) H/O gastric bypass History of hysterectomy History of section History of appendectomy History of cholecystectomy Family History (Updated 05/28/24 @ 14:16 by Lata Huang MA) Other Coronary artery disease Diabetes Social History Smoking Status: Never smoker second hand exposure: No alcohol intake: never substance use type: denies use current occupational status: employed Travel in the last 8 weeks: None household members: spouse housing: house caffeine: Yes ROS Obtained: Yes All systems reviewed & no additional complaints except as documented Physical Exam General General appearance: alert and in no apparent distress Respiratory Respiratory exam: Present normal lung sounds bilaterally Cardiovascular Cardiovascular exam: Present regular rate and normal rhythm Abdominal Exam Abdominal exam: Present soft and distention; Absent tenderness Back Exam Back exam: Absent CVA tenderness (R) or CVA tenderness (L) Neurological Exam Neurological exam: Present alert and oriented X3 Medical Decision Making Loi Inquiry Pt receiving controlled substance: No Vital Signs: 06/02/24 11:39 06/02/24 12:30 06/02/24 13:00 Temperature 98.0 F Temperature Source Oral Pulse Rate 63 63 Pulse Rate [Right] 71 Respiratory Rate 22 Blood Pressure 175/90 H 168/88 H Blood Pressure [Right Arm] 168/88 H Blood Pressure Mean [Right Arm] 114 02 Sat by Pulse Oximetry 100 100 100 Oxygen Delivery Method Room Air Room Air Room Air Lab Data Lab results reviewed: Yes I reviewed the patient's lab results. Lab Results 06/02/24 11:47: WBC 8.6, RBC 4.63, Hgb 13.3, Hct 43.6, MCV 94.2, MCH 28.7, MCHC 30.5 L, RDW 13.8, Plt Count 352, MPV 9.0, Neut % (Auto) 54.2, Lymph % (Auto) 35.7, [place] % (Auto) 5.5, Eos % (Auto) 2.9, Baso % (Auto) 1.7, Neut # (Auto) 4.6, Lymph # (Auto) 3.1, [place] # (Auto) 0.5, Eos # (Auto) 0.3, Baso # (Auto) 0.2, Sodium 140, Potassium 4.0, Chloride 105, Carbon Dioxide 32 H, Anion Gap 7.0, BUN 9, Creatinine 0.50 L, Estimated Creat Clear 177, Estimated GFR 129, Est GFR ( Amer) 156, Glucose 85, Calcium 8.9, Total Bilirubin 0.3, AST 42 H, ALT 40, Alkaline Phosphatase 88, Total Protein 7.4, Albumin 4.1, Globulin 3.3 H, Albumin/Globulin Ratio 1.2, Lipase 113 06/02/24 12:15: Urine Color Yellow, Urine Appearance Sl cloudy, Urine pH 6.0, Ur Specific Perkins >= 1.030, Urine Protein Trace, Urine Glucose (UA) Negative, Urine Ketones Negative, Urine Blood 3+, Urine Nitrate Negative, Urine Bilirubin Negative, Urine Urobilinogen 1.0, Ur Leukocyte Esterase Negative, Urine RBC 10- 20, Urine WBC None, Ur Squamous Epith Cells Occasional, Calcium Oxalate Crystal Trace, Urine Bacteria Trace 06/02/24 11:47 06/02/24 11:47 Orders (Tests/Meds): ED MEDICATIONS Discontinued Medications Generic Name Dose Route Start Last Admin Trade Name Freq PRN Reason Stop Dose Admin Acetaminophen 1,000 mg 06/02/24 11:53 06/02/24 12:05 Acetaminophen 1,000mg/100ml Vial IV 06/02/24 11:54 1,000 mg ONCE ONE Administration Hydromorphone HCl 0.5 mg 06/02/24 13:01 06/02/24 13:07 Hydromorphone 2mg/Ml Syringe IV 06/02/24 13:02 0.5 mg ONCE ONE Administration Lactated Ringer's 1,000 mls @ 999 mls/hr 06/02/24 12:00 06/02/24 12:05 Lactated Ringer's 1000 Ml Bag IV 06/02/24 13:00 999 mls/hr .Q1H1M JOAN Administration Morphine Sulfate 4 mg 06/02/24 11:53 06/02/24 12:05 Morphine 4mg/Ml Syringe IV 06/02/24 11:54 4 mg ONCE ONE Administration Ondansetron HCl 4 mg 06/02/24 11:53 06/02/24 12:05 Ondansetron 4mg/2ml Vial IV 06/02/24 11:54 4 mg ONCE ONE Administration ORDERS Category Date Time Status CT abdomen pelvis wo con Stat Cat Scan 06/02/24 11:53 Taken CBC w/Auto Diff [Complete Blood Count Auto Diff] Stat Lab 06/02/24 11:47 Completed CMP [Comprehensive Metabolic Panel] Stat Lab 06/02/24 11:47 Completed Lipase Stat Lab 06/02/24 11:47 Completed UA [Urinalysis and Microscopic] Stat Lab 06/02/24 12:15 Completed Medical Decision Narrative: 54-year-old female presents today with right flank pain intermittent that has been radiating to the right groin most consistent with a kidney stone. Will get a noncontrasted CT scan for further evaluation and management. Also could be pyelonephritis other causes of colicky pain such as gas etc. Unlikely to be vascular in nature. She is on chronic anticoagulation NSAIDs were not administered Tylenol Zofran and morphine have been administered will reassess. Reassessment 120 patient feeling somewhat better still having some pain. CT scan performed I personally interpreted which shows hydronephrosis and an associated 2 mm distal ureteral stone that is obstructing. No alternative diagnoses found on radiology read as well. Labs unremarkable specifically no evidence of urinary tract infection or renal insufficiency. This is almost certain to pass on its own I discussed with the patient she is on Coumadin and cannot use NSAIDs but she has been prescribed Flomax Castaner and Zofran. She is also been given referral to Dr. Ortiz and given return precautions were guarding refractory pain refractory nausea vomiting or high fevers. She was discharged in stable condition. Critical Care Critical Care Time Critical Care Time: No
[2024-06-02] MEDS: ONDANSETRON 4MG/2ML VIAL 4 MG IV (12:05)
[2024-06-02] MEDS: MORPHINE 4MG/ML SYRINGE 4 MG IV (12:05)
[2024-06-02] MEDS: LACTATED RINGERS 1000ML 1,000 ML 999 ML IV (12:05)
[2024-06-02] MEDS: ACETAMINOPHEN 1,000MG/100ML VIAL 1000 MG IV (12:05)
[2024-06-02 12:07] LABS: Alanine Aminotransferase 40 U/L (12-78); Albumin Level 4.1 g/dl (3.5-5.0); Albumin/Globulin Ratio 1.2 (1.1-1.8); Alkaline Phosphatase 88 U/L (38-126); Aspartate Amino Transferase 42 U/L (14-36); Basophils # 0.2 K/mm3 (0-0.2); Basophils % 1.7 % (0.1-2.0); Bilirubin,Total 0.3 mg/dl (0.2-1.3); Blood Urea Nitrogen 9 mg/dl (7-17); Calcium 8.9 mg/dl (8.4-10.2); Carbon Dioxide 32 mmol/L (22.0-30.0); Chloride 105 mmol/L (98-107); Creatinine Clearance Estimated 177 mL/min (50-200); Eosinophils # 0.3 K/mm3 (0.0-0.4); Eosinophils % 2.9 % (0.1-12.0); Estimated Glomerular Filt Rate 129 ml/min (>60); GFR (African American) 156 ML/MIN (>60); Globulin 3.3 g/dL (1.3-3.2); Glucose 85 mg/dl (74-100); Hematocrit 43.6 % (37.0-47.0); Hemoglobin 13.3 g/dL (12.2-16.2); Lipase 113 U/L (23-300); Lymphocytes # 3.1 K/mm3 (0.7-4.5); Lymphocytes % 35.7 % (10-50); Mean Corpuscular HGB Conc 30.5 g/dL (31.8-35.4); Mean Corpuscular Hemoglobin 28.7 pg (27.0-31.2); Mean Corpuscular Volume 94.2 fl (81-99); Monocytes # 0.5 K/mm3 (0.1-1.0); Monocytes % 5.5 % (1.7-9.3); Neutrophils # 4.6 K/mm3 (1.8-7.8); Neutrophils % 54.2 % (37.0-80.0); Platelet Count 352 K/mm3 (142-424); Red Blood Count 4.63 M/mm3 (4.20-5.40); Red Cell Distribution Width 13.8 % (11.5-17.5); Sodium 140 mmol/L (136-145); Total Protein,Serum 7.4 g/dl (6.3-8.2); White Blood Count 8.6 K/mm3 (4.8-10.8)
--- NOTE | 2024-06-02 12:07 | PC.NURSE ---
pt to ct scan via wheelchair
--- NOTE | 2024-06-02 12:14 | PC.NURSE ---
pt back from ct scan. She will attempt to provide urine sample
[2024-06-02 12:19] LABS: Microscopic, Urine URINE MICROSCOPIC (MICROSCOPIC)
--- NOTE | 2024-06-02 12:22 | PC.NURSE ---
urine sample collected and submitted to lab. Pt provided with a warm blanket for comfort
[2024-06-02 12:24] LABS: Appearance,Urine SL CLOUDY (Clear); Bilirubin,Urine Negative (Negative); Blood, Urine 3+ (Negative); Color,Urine YELLOW (Yellow); Glucose,Urine (UA) Negative (Negative); Ketones,Urine Negative (Negative); Leukocyte Esterase,Urine Negative (Negative); Nitrate,Urine Negative (Negative); Protein,Urine TRACE (Negative); Specific Gravity, Urine >= 1.030 (1.005-1.030)
[2024-06-02 12:30] VITALS: BP 175/90; PULSE 63; O2SAT 100
[2024-06-02 12:34] LABS: Bacteria,Urine Trace /lpf; Calcium Oxalate Crystals,Urine Trace /lpf; Squamous Epithelial Cell,Urine Occasional #/hpf (0-5)
[2024-06-02 13:00] VITALS: BP 168/88; PULSE 63; O2SAT 100
[2024-06-02] MEDS: HYDROMORPHONE 2MG/ML SYRINGE 0.5 MG IV (13:07)
[2024-06-02 13:23] VITALS: BP 197/98; PULSE 64; RESP 20; TEMP 36.7; O2SAT 97
== END 2024-06-02 13:29 | disposition home or self-care (01) ==
PROVIDERS: Emergency Provider Student in an Organized Health Care Education/Training Program; PCP Family Medicine
DX: N13.2 Hydronephrosis with renal and ureteral calculous obstruction (principal); R10.31 Right lower quadrant pain; M54.59 Other low back pain; R11.0 Nausea; R35.0 Frequency of micturition
CPT/HCPCS: 74176; 80053; 81001; 83690; 85025; 96361; 96374; 96375; 99285; J0131; J1170; J2270; J2405; J7120

== ENCOUNTER 2024-06-05 01:53 | Emergency (ER) | payer OTHER, SELFPAY ==
[2024-06-05 02:02] VITALS: BP 193/80; PULSE 78; RESP 16; TEMP 36.5; O2SAT 98; BMI 33.6
[2024-06-05 02:22] LABS: Basophils # 0.1 K/mm3 (0-0.2); Basophils % 0.8 % (0.1-2.0); Eosinophils # 0.2 K/mm3 (0.0-0.4); Eosinophils % 3.1 % (0.1-12.0); Hematocrit 41.7 % (37.0-47.0); Hemoglobin 12.9 g/dL (12.2-16.2); Lymphocytes # 1.8 K/mm3 (0.7-4.5); Lymphocytes % 23.1 % (10-50); Mean Corpuscular Volume 93.5 fl (81-99); Mean Platelet Volume 8.7 fl (7.4-10.4); Monocytes # 0.5 K/mm3 (0.1-1.0); Monocytes % 6.1 % (1.7-9.3); Neutrophils # 5.3 K/mm3 (1.8-7.8); Platelet Count 350 K/mm3 (142-424); Red Blood Count 4.45 M/mm3 (4.20-5.40); Red Cell Distribution Width 13.7 % (11.5-17.5); White Blood Count 7.9 K/mm3 (4.8-10.8)
[2024-06-05] MEDS: HYDROMORPHONE 2MG/ML SYRINGE 1 MG IV (02:22)
[2024-06-05] MEDS: ONDANSETRON 4MG/2ML VIAL 4 MG IV (02:23)
[2024-06-05] MEDS: KETOROLAC 30MG/ML VIAL 30 MG IV (02:25)
[2024-06-05] MEDS: ACETAMINOPHEN 500MG TAB 500 MG PO (02:25)
--- NOTE | 2024-06-05 02:34 | HMH.EDGENADL ---
Discharge Plan Disposition Patient Disposition: Home, Self-Care Condition: Good Prescriptions Prescriptions: New cefdinir 300 mg capsule 300 mg PO BID 10 Days Qty: 20 0RF ketorolac 10 mg tablet 10 mg PO .every 12 PRN (Reason: breakthrough pain, severe) 5 Days Qty: 10 0RF tamsulosin 0.4 mg capsule 0.4 mg PO HS Qty: 20 0RF Discontinued tamsulosin [Flomax] 0.4 mg capsule 0.4 mg PO DAILY 7 Days Qty: 7 0RF No Action aspirin 81 mg tablet,delayed release (DR/EC) 81 mg PO DAILY cyanocobalamin (vitamin B-12) 1,000 mcg/mL solution 1,000 mcg SQ WEEKLY Patient Comments: INJECT 1 ML SUBCUTANEOUSLY ONCE A WEEK prednisone 20 mg tablet 20 mg PO BID 5 Days Qty: 10 0RF cyclobenzaprine 10 mg tablet PO enoxaparin 60 mg/0.6 mL syringe SQ hydroxychloroquine 200 mg tablet 200 mg PO BID 90 Days Qty: 180 0RF alendronate 10 mg tablet 10 mg PO DAILY 90 Days Qty: 90 2RF Veozah 45 mg tablet 45 mg PO DAILY Qty: 90 3RF albuterol sulfate 90 mcg/actuation HFA aerosol inhaler 1 puff inhalation Q6HP PRN (Reason: Shortness Of Breath) Rx Instructions: INHALE 1 PUFF BY MOUTH EVERY 6 HOURS NEEDED FOR SHORTNESS OF BREATH OR WHEEZING warfarin 2 mg Tablet 2 mg PO FR baclofen 5 mg tablet 5 mg PO TID Qty: 90 0RF hydrocodone-acetaminophen 5-325 mg tablet 1 tab PO Q6H PRN (Reason: pain) 3 Days Qty: 12 0RF ondansetron 4 mg tablet,disintegrating 4 mg PO Q6H PRN (Reason: nausea and vomiting) 5 Days Qty: 20 0RF warfarin 5 mg tablet 2.5 mg PO SUMOTUWETHSA baclofen 10 mg tablet 10 mg PO QID Qty: 120 0RF hydrocodone-acetaminophen 10-325 mg tablet 1 tab PO QID Qty: 120 0RF pregabalin 100 mg capsule 100 mg PO TID Qty: 90 0RF Referrals Follow up/Referrals: Valentin Daniel MD [Primary Care Provider] - See instructions Activity Restrictions/Add. Instructions Additional Instructions/Restrictions: As we discussed, your catheterized urine specimen shows significantly less concern for infection, with occasional white blood cells per our power field as well as trace bacteria per high-powered field. This, in combination with no fevers, no elevated white blood cell count, and creatinine within normal limits points to a lower likelihood of infection of your urine. After our discussion, including risks versus benefits of discharge with antibiotics and return precautions versus pursuing transfer to a different medical facility with urology, he will be discharged from the emergency department at this time. I have prescribed a course of antibiotics in the same class of antibiotics as the ceftriaxone you received in the emergency department. You are listed as having an allergy to penicillins, this medication you received was a cephalosporin which you tolerated well in the emergency department, and the prescription I have written is for another cephalosporin. Additionally, as we discussed, I have prescribed 10 tablets of ketorolac to use as needed for breakthrough pain. We discussed that you use other blood thinning medications including aspirin 81 mg daily, after discussion of the risks and benefits of using as needed for a very short course of time and additional NSAID, I believe the benefits at this time outweigh the risks. Please return with any new or worsening symptoms. Clinical Impressions Clinical Impression: Calculus of ureterovesical junction (UVJ), COVID, COVID-19 Stand Alone Forms Stand Alone Forms: Work/School Release Instructions Patient Instructions: DI for Acute Abdominal Pain Print Language Print Language: Kosovan Discharge ED Provider: Ric Willis General Adult HPI <Ric Willis MD - Last Filed: 06/05/24 07:14> General Chief complaint: Abdominal Pain Stated complaint: back pain, congestion, cough, sore throat Time Seen by Provider: 06/05/24 01:55 Mode of Arrival: Family Vehicle Source of Information: Patient Limitations: No Limitations Description of Symptoms (Recalled from ER Triage Doc. by RN): 54 yo female presents 6 hours post onset of right flank pain with radiation to groin/right labia ; recent ct showed obstructive renal calculi that she thought she had passed but identifies this pain as similar to before. nauseated. additionally presents with sinus congestion, nausea from what she believes to be is contraction of covid at a high school reunion this past week. has taken dayquil otc x 2 doses and azo as well. History of Present Illness HPI narrative: 54-year-old female with extensive past medical history presents for worsening right flank pain. She was seen here a few days ago and was diagnosed with a kidney stone and discharged with medication for her symptoms. No evidence of infection at that time. She returns tonight because her pain has gotten severe and worse. Radiating down to the groin. Continues to deny fever at home. She reports that she thinks she got COVID because she has been having some nasal congestion and upper respiratory symptoms as well. Related Data Home Medications ?Medication ?Instructions ?Recorded ?Confirmed warfarin 5 mg tablet 2.5 mg PO SUMOTUWETHSA Blood 10/24/22 05/28/24 thinner albuterol sulfate 90 mcg/actuation 1 puff inhalation Q6HP PRN 07/16/23 05/28/24 aerosol inhaler Shortness Of Breath warfarin 2 mg tablet 2 mg PO FR Blood Thinner 07/16/23 05/28/24 aspirin 81 mg tablet,delayed 81 mg PO DAILY 12/04/23 05/28/24 release cyanocobalamin (vitamin B-12) 1,000 mcg SQ WEEKLY 01/01/24 05/28/24 1,000 mcg/mL injection solution cyclobenzaprine 10 mg tablet mg PO 05/28/24 05/28/24 enoxaparin 60 mg/0.6 mL mg SQ 05/28/24 05/28/24 subcutaneous syringe Previous Rx's ?Medication ?Instructions ?Recorded hydroxychloroquine 200 mg tablet 200 mg PO BID Lupus 90 days #180 01/18/24 tabs alendronate 10 mg tablet 10 mg PO DAILY 90 days #90 tabs 02/05/24 fezolinetant 45 mg tablet (Veozah) 45 mg PO DAILY #90 tabs 04/02/24 baclofen 5 mg tablet 5 mg PO TID MUSCLE SPASMS #90 tabs 04/30/24 prednisone 20 mg tablet 20 mg PO BID 5 days #10 tabs 05/06/24 baclofen 10 mg tablet 10 mg PO QID #120 tabs 05/14/24 hydrocodone 10 mg-acetaminophen 1 tab PO QID #120 tabs 05/14/24 325 mg tablet pregabalin 100 mg capsule 100 mg PO TID #90 caps 05/14/24 hydrocodone 5 mg-acetaminophen 325 1 tab PO Q6H PRN pain 3 days #12 06/02/24 mg tablet tabs ondansetron 4 mg disintegrating 4 mg PO Q6H PRN nausea and 06/02/24 tablet vomiting 5 days #20 tabs cefdinir 300 mg capsule 300 mg PO BID 10 days #20 caps 06/05/24 ketorolac 10 mg tablet 10 mg PO .every 12 PRN 06/05/24 breakthrough pain, severe 5 days #10 tabs tamsulosin 0.4 mg capsule 0.4 mg PO HS #20 caps 06/05/24 Allergies Allergy/AdvReac Type Severity Reaction Status Date / Time gum mastic Allergy Unknown Verified 05/28/24 14:09 [From MASTISOL ADHESIVE] measles, mumps, and rubella Allergy Unknown Verified 05/28/24 14:09 vaccine [MEASLES, MUMPS, AND RUBELLA VACCINE] methyl salicylate Allergy Unknown Verified 05/28/24 14:09 [From MASTISOL ADHESIVE] Penicillins [PENICILLINS] Allergy Unknown Verified 05/28/24 14:09 storax Allergy Unknown Verified 05/28/24 14:09 [From MASTISOL ADHESIVE] Sulfa (Sulfonamide Allergy Unknown Verified 05/28/24 14:09 Antibiotics) [SULFA (SULFONAMIDE ANTIBIOTICS)] sumatriptan [From IMITREX] Allergy Unknown Verified 05/28/24 14:09 adhesive AdvReac Mild Rash Verified 05/28/24 14:09 REPLACED BY [facility] <Ric Willis MD - Last Filed: 06/05/24 07:14> REPLACED BY [facility] Disclaimer: The information contained in this section may have been updated after the patient was seen, as this information can be updated by other users. Medical History (Updated 06/05/24 @ 06:47 by Ric Willis MD) Vasomotor symptoms due to menopause Stroke Lupus Asthma History of gastroesophageal reflux (GERD) Hypertension Dizziness Edema History of TIA (transient ischemic attack) History of DVT (deep vein thrombosis) Surgical History (Updated 05/28/24 @ 14:56 by Valentin Daniel MD) H/O gastric bypass History of hysterectomy History of section History of appendectomy History of cholecystectomy Family History (Updated 05/28/24 @ 14:16 by Lata Huang MA) Other Coronary artery disease Diabetes Social History Smoking Status: Unknown if ever smoked second hand exposure: No alcohol intake: never substance use type: denies use current occupational status: employed Travel in the last 8 weeks: None household members: spouse housing: house caffeine: Yes <Ric Willis MD - Last Filed: 06/05/24 07:14> ROS Obtained: Yes All systems reviewed & no additional complaints except as documented Physical Exam <Ric Willis MD - Last Filed: 06/05/24 07:14> General General appearance: alert Comment: Uncomfortable appearing Head Head exam: atraumatic and normocephalic Eye Eye exam: Present normal appearance, PERRL and EOMI ENT ENT exam: Present normal oropharynx and normal external ear exam Neck Neck exam: Present normal inspection and full ROM Chest Chest inspection: Present normal inspection and symmetric chest wall rise; Absent tenderness Respiratory Respiratory exam: Present normal lung sounds bilaterally; Absent respiratory distress Cardiovascular Cardiovascular exam: Present regular rate and normal rhythm Abdominal Exam Abdominal exam: Present soft; Absent distention, tenderness or guarding Extremities Exam Extremities exam: Present normal inspection; Absent edema or joint swelling Back Exam Back exam: Present normal inspection, tenderness and CVA tenderness (R) Neurological Exam Neurological exam: Present alert and oriented X3; Absent motor sensory deficit Psychiatric Psychiatric exam: Present normal affect and normal mood Skin Skin exam: Present warm, dry and normal color Lymphatic Lymphatic Findings: no adenopathy Medical Decision Making <Ric Willis MD - Last Filed: 06/05/24 07:14> Medical Records Medical records reviewed: Yes I reviewed the patient's medical records. Loi Inquiry Pt receiving controlled substance: No Loi was queried for this patient: No Vital Signs: 06/05/24 02:02 06/05/24 07:30 06/05/24 08:01 Temperature 97.7 F Temperature Source Oral Pulse Rate 67 64 Pulse Rate [Right Brachial] 78 Respiratory Rate 16 Blood Pressure 130/76 162/88 H Blood Pressure [Right Arm] 193/80 H Blood Pressure Mean [Right Arm] 117 Blood Pressure Source [Right Arm] Automatic Cuff Blood Pressure Position [Right Arm] Sitting 02 Sat by Pulse Oximetry 98 96 99 Oxygen Delivery Method Room Air Room Air Room Air 06/05/24 08:25 Temperature 97.9 F Temperature Source Pulse Rate 63 Pulse Rate [Right Brachial] Respiratory Rate 16 Blood Pressure 162/88 H Blood Pressure [Right Arm] Blood Pressure Mean [Right Arm] Blood Pressure Source [Right Arm] Blood Pressure Position [Right Arm] 02 Sat by Pulse Oximetry Oxygen Delivery Method Lab Data Lab results reviewed: Yes I reviewed the patient's lab results. Lab Results 06/05/24 02:07: WBC 7.9, RBC 4.45, Hgb 12.9, Hct 41.7, MCV 93.5, MCH 29.0, MCHC 31.0 L, RDW 13.7, Plt Count 350, MPV 8.7, Neut % (Auto) 67.0, Lymph % (Auto) 23.1, [place] % (Auto) 6.1, Eos % (Auto) 3.1, Baso % (Auto) 0.8, Neut # (Auto) 5.3, Lymph # (Auto) 1.8, [place] # (Auto) 0.5, Eos # (Auto) 0.2, Baso # (Auto) 0.1, Sodium 141, Potassium 3.6, Chloride 106, Carbon Dioxide 30, Anion Gap 8.6, BUN 10, Creatinine 0.70 D, Estimated Creat Clear 126, Estimated GFR 88, Est GFR ( Amer) 106 D, Glucose 101 H, Calcium 8.9, Total Bilirubin 0.4, AST 35, ALT 36, Alkaline Phosphatase 80, Total Protein 6.9, Albumin 3.8, Globulin 3.1, Albumin/Globulin Ratio 1.2, SARS-CoV-2 (PCR) Detected A, Influenza A Untype (PCR) Not detected, Influenza Type B (PCR) Not detected 06/05/24 02:18: Urine Color [place], Urine Appearance Cloudy, Urine pH 5.0, Ur Specific [place] >= 1.030, Urine Protein 2+, Urine Glucose (UA) Trace, Urine Ketones Trace, Urine Blood 3+, Urine Nitrate Positive, Urine Bilirubin Negative, Urine Urobilinogen 4.0, Ur Leukocyte Esterase Trace, Urine RBC 50-100, Urine WBC 5-10, Ur Squamous Epith Cells 10-20, Calcium Oxalate Crystal 3+, Urine Bacteria 2+ 06/05/24 04:51: Urine Color [place], Urine Appearance Clear, Urine pH 5.0, Ur Specific [place] >= 1.030, Urine Protein 2+, Urine Glucose (UA) 1+, Urine Ketones 1+, Urine Blood 2+, Urine Nitrate Positive, Urine Bilirubin Negative, Urine Urobilinogen >=8.0, Ur Leukocyte Esterase 1+ A, Urine RBC 50-100, Urine WBC 5-10, Ur Squamous Epith Cells 3-5, Urine Bacteria 1+ 06/05/24 06:30: Urine Color [place], Urine Appearance Clear, Urine pH 5.0, Ur Specific [place] >= 1.030, Urine Protein 2+, Urine Glucose (UA) 2+, Urine Ketones Trace, Urine Blood 2+, Urine Nitrate Positive, Urine Bilirubin Negative, Urine Urobilinogen >=8.0, Ur Leukocyte Esterase Trace, Urine RBC 10-20, Urine WBC Occasional, Ur Squamous Epith Cells Occasional, Urine Bacteria Trace 06/05/24 02:07 06/05/24 02:07 Orders (Tests/Meds): ED MEDICATIONS Discontinued Medications Generic Name Dose Route Start Last Admin Trade Name Niloq PRN Reason Stop Dose Admin Acetaminophen 500 mg 06/05/24 02:09 06/05/24 02:25 Acetaminophen 500mg Tab PO 06/05/24 02:10 500 mg ONCE ONE Administration Hydromorphone HCl 1 mg 06/05/24 02:09 06/05/24 02:22 Hydromorphone 2mg/Ml Syringe IV 06/05/24 02:10 1 mg ONCE ONE Administration Hydromorphone HCl 0.5 mg 06/05/24 05:41 06/05/24 05:56 Hydromorphone 2mg/Ml Syringe IV 06/05/24 05:42 0.5 mg ONCE ONE Administration Ceftriaxone Sodium 1 gm/ 50 mls @ 100 mls/hr 06/05/24 05:41 06/05/24 05:56 Sodium Chloride IV 06/05/24 06:10 100 mls/hr ONCE ONE Administration Sodium Chloride 1,000 mls @ 999 mls/hr 06/05/24 06:00 06/05/24 05:56 Sod Chlor 0.9% 1000ml Bag IV 06/05/24 07:00 999 mls/hr .Q1H1M JOAN Administration Ketorolac Tromethamine 30 mg 06/05/24 02:09 06/05/24 02:25 Ketorolac 30mg/Ml Vial IV 06/05/24 02:10 30 mg ONCE ONE Administration Ondansetron HCl 4 mg 06/05/24 02:09 06/05/24 02:23 Ondansetron 4mg/2ml Vial IV 06/05/24 02:10 4 mg ONCE ONE Administration ORDERS Category Date Time Status CT abdomen pelvis wo con Stat Cat Scan 06/05/24 03:11 Completed CBC [Complete Blood Count Auto Diff] Stat Lab 06/05/24 02:07 Completed CMP [Comprehensive Metabolic Panel] Stat Lab 06/05/24 02:07 Completed Rapid PCR Covid and Flu A/B Stat Lab 06/05/24 02:07 Completed UA [Urinalysis and Microscopic] Stat Lab 06/05/24 02:18 Completed UA [Urinalysis and Microscopic] Stat Lab 06/05/24 04:51 Completed UA [Urinalysis and Microscopic] Stat Lab 06/05/24 06:30 Completed Urine Culture Stat Micro 06/05/24 02:18 Received Medical Decision Narrative: 54-year-old female with extensive past medical history presents for recurrent right flank pain, seen here a couple days ago and diagnosed with obstructing kidney stone.. History was obtained via interactive discussion with patient, chart review. On arrival, patient is [afebrile, hemodynamically stable, satting appropriately, alert, oriented x4, GCS 15], moving all extremities spontaneously. Full physical exam performed and significant for right flank pain, patient uncomfortable secondary to pain. Differential includes but is not limited to obstructing kidney stone, kidney stone in transit, pyelonephritis concurrent with stone, COVID. Patient was given 1 mg of Dilaudid, 30 mg Toradol, 1 g p.o. Tylenol, 4 of Zofran, for symptomatic management and correction of underlying abnormalities. Workup initiated including CBC CMP urinalysis.. On re-evaluation, patient [remains afebrile, HD stable.] Reports symptomatic improvement. Laboratory workup independently interpreted by me and significant for no worsening of renal function. Urinalysis however is difficult to interpret. Has 10-20 squames which suggest contamination. However, it is positive for nitrates (may be confounded by presence of blood in the urine), 50-100 RBCs, 5-10 WBCs, 2+ bacteria. Given the possibility of a urinary infection, we will repeat the CT scan to see if the stone remains in the same position and is obstructing. Imaging independently interpreted by me and significant for CT abdomen pelvis without contrast shows persistent hydronephrosis and hydroureter with obstructing 2 mm stone at the UVJ. See radiology read for full review of final results. The urinalysis was repeated given 10-20 squames on the initial specimen. On repeat it has 3-5 squames, continues to have 5-10 WBCs and 1+ bacteria. Given this, patient was initiated on ceftriaxone for treatment of possible septic stone. I called the transfer center and spoke with Dr. Nair regarding transfer. He reports that the urologists there will not accept a noncath specimen that has any squamous cells. Given this, a cath specimen was ordered. At this time care handed off to oncoming physician pending repeat cath specimen and potential transfer for urologic intervention. <Francois Hassan MD - Last Filed: 06/05/24 11:02> Vital Signs: 06/05/24 02:02 06/05/24 07:30 06/05/24 08:01 Temperature 97.7 F Temperature Source Oral Pulse Rate 67 64 Pulse Rate [Right Brachial] 78 Respiratory Rate 16 Blood Pressure 130/76 162/88 H Blood Pressure [Right Arm] 193/80 H Blood Pressure Mean [Right Arm] 117 Blood Pressure Source [Right Arm] Automatic Cuff Blood Pressure Position [Right Arm] Sitting 02 Sat by Pulse Oximetry 98 96 99 Oxygen Delivery Method Room Air Room Air Room Air 06/05/24 08:25 Temperature 97.9 F Temperature Source Pulse Rate 63 Pulse Rate [Right Brachial] Respiratory Rate 16 Blood Pressure 162/88 H Blood Pressure [Right Arm] Blood Pressure Mean [Right Arm] Blood Pressure Source [Right Arm] Blood Pressure Position [Right Arm] 02 Sat by Pulse Oximetry Oxygen Delivery Method Lab Data Lab Results 06/05/24 02:07: WBC 7.9, RBC 4.45, Hgb 12.9, Hct 41.7, MCV 93.5, MCH 29.0, MCHC 31.0 L, RDW 13.7, Plt Count 350, MPV 8.7, Neut % (Auto) 67.0, Lymph % (Auto) 23.1, [place] % (Auto) 6.1, Eos % (Auto) 3.1, Baso % (Auto) 0.8, Neut # (Auto) 5.3, Lymph # (Auto) 1.8, [place] # (Auto) 0.5, Eos # (Auto) 0.2, Baso # (Auto) 0.1, Sodium 141, Potassium 3.6, Chloride 106, Carbon Dioxide 30, Anion Gap 8.6, BUN 10, Creatinine 0.70 D, Estimated Creat Clear 126, Estimated GFR 88, Est GFR ( Amer) 106 D, Glucose 101 H, Calcium 8.9, Total Bilirubin 0.4, AST 35, ALT 36, Alkaline Phosphatase 80, Total Protein 6.9, Albumin 3.8, Globulin 3.1, Albumin/Globulin Ratio 1.2, SARS-CoV-2 (PCR) Detected A, Influenza A Untype (PCR) Not detected, Influenza Type B (PCR) Not detected 06/05/24 02:18: Urine Color [place], Urine Appearance Cloudy, Urine pH 5.0, Ur Specific [place] >= 1.030, Urine Protein 2+, Urine Glucose (UA) Trace, Urine Ketones Trace, Urine Blood 3+, Urine Nitrate Positive, Urine Bilirubin Negative, Urine Urobilinogen 4.0, Ur Leukocyte Esterase Trace, Urine RBC 50-100, Urine WBC 5-10, Ur Squamous Epith Cells 10-20, Calcium Oxalate Crystal 3+, Urine Bacteria 2+ 06/05/24 04:51: Urine Color [place], Urine Appearance Clear, Urine pH 5.0, Ur Specific [place] >= 1.030, Urine Protein 2+, Urine Glucose (UA) 1+, Urine Ketones 1+, Urine Blood 2+, Urine Nitrate Positive, Urine Bilirubin Negative, Urine Urobilinogen >=8.0, Ur Leukocyte Esterase 1+ A, Urine RBC 50-100, Urine WBC 5-10, Ur Squamous Epith Cells 3-5, Urine Bacteria 1+ 06/05/24 06:30: Urine Color [place], Urine Appearance Clear, Urine pH 5.0, Ur Specific [place] >= 1.030, Urine Protein 2+, Urine Glucose (UA) 2+, Urine Ketones Trace, Urine Blood 2+, Urine Nitrate Positive, Urine Bilirubin Negative, Urine Urobilinogen >=8.0, Ur Leukocyte Esterase Trace, Urine RBC 10-20, Urine WBC Occasional, Ur Squamous Epith Cells Occasional, Urine Bacteria Trace Orders (Tests/Meds): ED MEDICATIONS Discontinued Medications Generic Name Dose Route Start Last Admin Trade Name Freq PRN Reason Stop Dose Admin Acetaminophen 500 mg 06/05/24 02:09 06/05/24 02:25 Acetaminophen 500mg Tab PO 06/05/24 02:10 500 mg ONCE ONE Administration Hydromorphone HCl 1 mg 06/05/24 02:09 06/05/24 02:22 Hydromorphone 2mg/Ml Syringe IV 06/05/24 02:10 1 mg ONCE ONE Administration Hydromorphone HCl 0.5 mg 06/05/24 05:41 06/05/24 05:56 Hydromorphone 2mg/Ml Syringe IV 06/05/24 05:42 0.5 mg ONCE ONE Administration Ceftriaxone Sodium 1 gm/ 50 mls @ 100 mls/hr 06/05/24 05:41 06/05/24 05:56 Sodium Chloride IV 06/05/24 06:10 100 mls/hr ONCE ONE Administration Sodium Chloride 1,000 mls @ 999 mls/hr 06/05/24 06:00 06/05/24 05:56 Sod Chlor 0.9% 1000ml Bag IV 06/05/24 07:00 999 mls/hr .Q1H1M JOAN Administration Ketorolac Tromethamine 30 mg 06/05/24 02:09 06/05/24 02:25 Ketorolac 30mg/Ml Vial IV 06/05/24 02:10 30 mg ONCE ONE Administration Ondansetron HCl 4 mg 06/05/24 02:09 06/05/24 02:23 Ondansetron 4mg/2ml Vial IV 06/05/24 02:10 4 mg ONCE ONE Administration ORDERS Category Date Time Status CT abdomen pelvis wo con Stat Cat Scan 06/05/24 03:11 Completed CBC [Complete Blood Count Auto Diff] Stat Lab 06/05/24 02:07 Completed CMP [Comprehensive Metabolic Panel] Stat Lab 06/05/24 02:07 Completed Rapid PCR Covid and Flu A/B Stat Lab 06/05/24 02:07 Completed UA [Urinalysis and Microscopic] Stat Lab 06/05/24 02:18 Completed UA [Urinalysis and Microscopic] Stat Lab 06/05/24 04:51 Completed UA [Urinalysis and Microscopic] Stat Lab 06/05/24 06:30 Completed Urine Culture Stat Micro 06/05/24 02:18 Received Medical Decision Narrative: 54-year-old female with extensive past medical history presents for recurrent right flank pain, seen here a couple days ago and diagnosed with obstructing kidney stone.. History was obtained via interactive discussion with patient, chart review. On arrival, patient is [afebrile, hemodynamically stable, satting appropriately, alert, oriented x4, GCS 15], moving all extremities spontaneously. Full physical exam performed and significant for right flank pain, patient uncomfortable secondary to pain. Differential includes but is not limited to obstructing kidney stone, kidney stone in transit, pyelonephritis concurrent with stone, COVID. Patient was given 1 mg of Dilaudid, 30 mg Toradol, 1 g p.o. Tylenol, 4 of Zofran, for symptomatic management and correction of underlying abnormalities. Workup initiated including CBC CMP urinalysis.. On re-evaluation, patient [remains afebrile, HD stable.] Reports symptomatic improvement. Laboratory workup independently interpreted by me and significant for no worsening of renal function. Urinalysis however is difficult to interpret. Has 10-20 squames which suggest contamination. However, it is positive for nitrates (may be confounded by presence of blood in the urine), 50-100 RBCs, 5-10 WBCs, 2+ bacteria. Given the possibility of a urinary infection, we will repeat the CT scan to see if the stone remains in the same position and is obstructing. Imaging independently interpreted by me and significant for CT abdomen pelvis without contrast shows persistent hydronephrosis and hydroureter with obstructing 2 mm stone at the UVJ. See radiology read for full review of final results. The urinalysis was repeated given 10-20 squames on the initial specimen. On repeat it has 3-5 squames, continues to have 5-10 WBCs and 1+ bacteria. Given this, patient was initiated on ceftriaxone for treatment of possible septic stone. I called the transfer center and spoke with Dr. Nair regarding transfer. He reports that the urologists there will not accept a noncath specimen that has any squamous cells. Given this, a cath specimen was ordered. At this time care handed off to oncoming physician pending repeat cath specimen and potential transfer for urologic intervention. Francois Hassan MD: I assumed care of this patient from the previous emergency medicine physician. Urinalysis recollected from catheterized specimen reveals redemonstrated nitrate positive, 2+ blood, occasional white blood cells per high-power field, occasional squamous cells per high-power field, trace bacteria per high-power field. Per my review of previous labs, this is home office representative of significantly diminished evidence of urinary tract infection in the setting of urolithiasis and hydronephrosis. I reassessed the patient and discussed these findings with her as well as the entirety of her workup thus far. She reports improvement of symptoms upon repeat evaluation. Overall, laboratory analysis reveals no leukocytosis, creatinine within normal limits, in addition to no reported fevers, chills, hypotension, or other overt systemic symptoms. I offered the patient further consultation with outside hospital for evaluation for transfer and urology consultation. Alternatives discussed included discharge with course of by mouth antibiotics and strict return precautions. She additionally, was given one-time dose of ketorolac IV in the emergency department. She does take blood thinning agent as well as antiplatelet of aspirin 81 mg daily. 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 After shared decision making, she elects to be discharged from the emergency department at this time. We will continue course of cephalosporin in addition to the one-time dose of ceftriaxone she received today. After discussion of risks and benefits, I believe that it is reasonable to prescribe short course of as needed ketorolac to aid in multimodal pain control for urolithiasis. She will return with any new or worsening symptoms. Procedures <Ric Willis MD - Last Filed: 06/05/24 07:14> Risk/Benefits of Procedure(s) Were Explained: Yes Critical Care <Ric Willis MD - Last Filed: 06/05/24 07:14> Critical Care Time Critical Care Time: No
[2024-06-05 02:43] LABS: Alanine Aminotransferase 36 U/L (12-78); Albumin Level 3.8 g/dl (3.5-5.0); Albumin/Globulin Ratio 1.2 (1.1-1.8); Alkaline Phosphatase 80 U/L (38-126); Anion Gap 8.6 mEq/L (5-15); Aspartate Amino Transferase 35 U/L (14-36); Bilirubin,Total 0.4 mg/dl (0.2-1.3); Blood Urea Nitrogen 10 mg/dl (7-17); Calcium 8.9 mg/dl (8.4-10.2); Carbon Dioxide 30 mmol/L (22.0-30.0); Chloride 106 mmol/L (98-107); Creatinine Clearance Estimated 126 mL/min (50-200); Estimated Glomerular Filt Rate 88 ml/min (>60); GFR (African American) 106 ML/MIN (>60); Globulin 3.1 g/dL (1.3-3.2); Glucose 101 mg/dl (74-100); Potassium 3.6 mmoL/L (3.5-5.1); Sodium 141 mmol/L (136-145); Total Protein,Serum 6.9 g/dl (6.3-8.2)
[2024-06-05 02:44] LABS: Microscopic, Urine URINE MICROSCOPIC (MICROSCOPIC)
[2024-06-05 02:45] LABS: Blood, Urine 3+ (Negative); Glucose,Urine (UA) TRACE (Negative); Ketones,Urine TRACE (Negative); Leukocyte Esterase,Urine TRACE (Negative); Nitrate,Urine POSITIVE (Negative); Protein,Urine 2+ (Negative); Specific Gravity, Urine >= 1.030 (1.005-1.030)
[2024-06-05 02:48] LABS: Appearance,Urine Cloudy (Clear); Bilirubin,Urine Negative (Negative); Color,Urine Orange (Yellow)
[2024-06-05 03:00] LABS: RBC,Urine 50-100 #/hpf (0-3)
[2024-06-05 03:01] LABS: Bacteria,Urine 2+ /lpf; Calcium Oxalate Crystals,Urine 3+ /lpf
[2024-06-05 03:04] LABS: Influenza A, PCR Not Detected (NotDetected); Influenza B, PCR Not Detected (NotDetected)
--- NOTE | 2024-06-05 03:11 | CT_ITS ---
PROCEDURE INFORMATION: Exam: CT Abdomen And Pelvis Without Contrast Exam date and time: 06/05/2024 3:24 AM Age: 54 years old Clinical indication: Abdominal pain; Flank; Right; Additional info: Right flank pain TECHNIQUE: Imaging protocol: Computed tomography of the abdomen and pelvis without contrast. Radiation optimization: All CT scans at this facility use at least one of these dose optimization techniques: automated exposure control; mA and/or kV adjustment per patient size (includes targeted exams where dose is matched to clinical indication); or iterative reconstruction. COMPARISON: CT ABDOMEN PELVIS WO CON 06/02/2024 12:08 PM FINDINGS: Liver: Normal. No mass. Gallbladder and biliary ducts: Cholecystectomy. Pancreas: Normal. No ductal dilation. Spleen: Normal. No splenomegaly. Adrenal glands: Normal. No mass. Kidneys and ureters: There is a 2 mm stone at the right UVJ with moderate right-sided hydronephrosis and hydroureter. Stomach and bowel: Unremarkable. No obstruction. No mucosal thickening. Appendix: No evidence of appendicitis. Intraperitoneal space: Unremarkable. No free air. No significant fluid collection. Vasculature: Unremarkable. No abdominal aortic aneurysm. Lymph nodes: Unremarkable. No enlarged lymph nodes. Urinary bladder: Unremarkable as visualized. Reproductive: Unremarkable as visualized. Bones/joints: Unremarkable. No acute fracture. Soft tissues: Unremarkable. IMPRESSION: 1. 2 mm stone at the right UVJ with moderate right-sided hydronephrosis and hydroureter. 2. Cholecystectomy.
[2024-06-05 03:52] LABS: Coronavirus 19, PCR Detected (NotDetected)
[2024-06-05 05:06] LABS: Microscopic, Urine URINE MICROSCOPIC (MICROSCOPIC)
[2024-06-05 05:07] LABS: Appearance,Urine CLEAR (Clear); Bilirubin,Urine Negative (Negative); Blood, Urine 2+ (Negative); Color,Urine AMBER (Yellow); Glucose,Urine (UA) 1+ (Negative); Ketones,Urine 1+ (Negative); Leukocyte Esterase,Urine 1+ (Negative); Nitrate,Urine POSITIVE (Negative); Protein,Urine 2+ (Negative); Specific Gravity, Urine >= 1.030 (1.005-1.030); Urobilinogen,Urine >=8.0 EU/dl (0.2)
[2024-06-05 05:19] LABS: RBC,Urine 50-100 #/hpf (0-3)
[2024-06-05 05:20] LABS: Bacteria,Urine 1+ /lpf
--- NOTE | 2024-06-05 05:44 | PC.NURSE ---
CALL PLACED TO [facility] FOR POSSIBLE TRANSFER FOR UROLOGY SECONDARY TO SEPTIC RENAL CALCULI. IMAGES SENT OVER BY RAD, CALL MADE BY MARY BETH
--- NOTE | 2024-06-05 05:53 | PC.NURSE ---
SPOKE WITH [facility], WHO STATED TO OBTAIN A STRAIGHT CATH URINE. PATIENT JUST VOIDED AGAIN IN BATHROOM, SO PLAN IS TO ADMINISTER 0.9% NS X 1L AND CATH HER AT THAT POINT
[2024-06-05] MEDS: CEFTRIAXONE 1 GM 1 GM in 0.9 % SODIUM CHLORIDE 50 ML IV (05:56)
[2024-06-05] MEDS: 0.9 % SODIUM CHLORIDE 1000ML 1,000 ML 999 ML IV (05:56)
[2024-06-05] MEDS: HYDROMORPHONE 2MG/ML SYRINGE 0.5 MG IV (05:56)
--- NOTE | 2024-06-05 06:03 | PC.NURSE ---
Patient asked about breakfast, explained that I would ask the MD.MD reports that she cannot have breakfast. Reported to the patient that she is not able to eat at this time.
--- NOTE | 2024-06-05 06:37 | PC.NURSE ---
straight cath collected with sterile technique and send to lab
[2024-06-05 06:40] LABS: Microscopic, Urine URINE MICROSCOPIC (MICROSCOPIC)
[2024-06-05 06:49] LABS: Appearance,Urine CLEAR (Clear); Bilirubin,Urine Negative (Negative); Blood, Urine 2+ (Negative); Color,Urine ORANGE (Yellow); Glucose,Urine (UA) 2+ (Negative); Ketones,Urine TRACE (Negative); Leukocyte Esterase,Urine TRACE (Negative); Nitrate,Urine POSITIVE (Negative); Protein,Urine 2+ (Negative); Specific Gravity, Urine >= 1.030 (1.005-1.030); Urobilinogen,Urine >=8.0 EU/dl (0.2)
[2024-06-05 07:12] LABS: WBC,Urine Occasional #/hpf (0-3)
[2024-06-05 07:13] LABS: Bacteria,Urine Trace /lpf; Squamous Epithelial Cell,Urine Occasional #/hpf (0-5)
[2024-06-05 07:30] VITALS: BP 130/76; PULSE 67; O2SAT 96
--- NOTE | 2024-06-05 07:50 | PC.NURSE ---
at bs speaking with pt
[2024-06-05 08:01] VITALS: BP 162/88; PULSE 64; O2SAT 99
[2024-06-05 08:25] VITALS: BP 162/88; PULSE 63; RESP 16; TEMP 36.6; O2SAT 99
== END 2024-06-05 08:26 | disposition home or self-care (01) ==
PROVIDERS: Emergency Provider Emergency Medicine; PCP Family Medicine
DX: U07.1 COVID-19 (principal); N13.0 Hydronephrosis with ureteropelvic junction obstruction; N13.4 Hydroureter; B96.89 Other specified bacterial agents as the cause of diseases classified elsewhere
CPT/HCPCS: 74176; 80053; 81001; 85025; 87086; 87636; 96361; 96365; 96375; 96376; 99285; J0696; J1170; J1885; J2405; J7030

== ENCOUNTER 2024-06-11 16:16 | Outpatient (CLI) | payer OTHER, SELFPAY ==
--- NOTE | 2024-06-11 | MR_ITS ---
PROCEDURE INFORMATION: Exam: MR Lumbar Spine Without and With Contrast Exam date and time: 06/11/2024 4:52 PM Age: 54 years old Clinical indication: Low back pain; Additional info: Lbp TECHNIQUE: Imaging protocol: Magnetic resonance imaging of the lumbar spine without and with contrast. Contrast material: PROHANCE; Contrast volume: 17 ml; Contrast route: IV; COMPARISON: CT LUMBAR SPINE WO CON 05/07/2024 7:29 AM FINDINGS: Bones/joints: Modic 2 changes involving the anterior inferior endplate of L1. Moderate loss of T2 disc signal and height from L2 through L5. Spinal cord: Visualized cord, conus medullaris and cauda equina are unremarkable without compression. L1-L2: L1-L2 small disc protrusion results in mild bilateral neural foraminal stenosis. L2-L3: No significant disc bulge or herniation. No severe spinal canal stenosis. No significant neural foraminal narrowing. L3-L4: L3-L4 small broad-based posterior disc protrusion results in mild bilateral neural foraminal stenosis. L4-L5: L4-L5 moderate broad-base posterior disc protrusion results in mild bilateral neural foraminal stenosis. L5-S1: No significant disc bulge or herniation. No severe spinal canal stenosis. No significant neural foraminal narrowing. Soft tissues: Unremarkable. IMPRESSION: Mild multilevel discogenic degenerative changes greatest from L3 through L5 with neural foraminal stenosis as discussed above.
[2024-06-11] MEDS: GADOTERIDOL INJ 20ML SYRINGE 17 ML IV (17:23)
[2024-06-11] MEDS: SODIUM CHLORIDE 0.9% 10ML SYR (RAD ONLY) 10 ML IV (17:23)
== END 2024-06-11 23:59 | disposition home or self-care (01) ==
LOC: RAD 16:17
PROVIDERS: PCP Family Medicine; Visit Provider Neurological Surgery
DX: M54.50 Low back pain, unspecified (principal)
CPT/HCPCS: 72158; A9576

== ENCOUNTER 2024-06-12 08:11 | Outpatient (POV) | payer OTHER, SELFPAY ==
[2024-06-12 08:31] VITALS: BP 144/78; PULSE 70; RESP 16; O2SAT 99; BMI 33.1
--- NOTE | 2024-06-12 08:51 | EXP.PAIN.SOA ---
[facility] Disclaimer: The information contained in this section may have been updated after the patient was seen, as this information can be updated by other users. Medical History (Updated 06/05/24 @ 06:47 by Ric Willis MD) Vasomotor symptoms due to menopause Stroke Lupus Asthma History of gastroesophageal reflux (GERD) Hypertension Dizziness Edema History of TIA (transient ischemic attack) History of DVT (deep vein thrombosis) Surgical History (Updated 05/28/24 @ 14:56 by Valentin Daniel MD) H/O gastric bypass History of hysterectomy History of section History of appendectomy History of cholecystectomy Family History (Updated 05/28/24 @ 14:16 by Lata Huang MA) Other Coronary artery disease Diabetes Social History Smoking Status: Unknown if ever smoked second hand exposure: No alcohol intake: never substance use type: denies use current occupational status: employed Travel in the last 8 weeks: None household members: spouse housing: house caffeine: Yes PM Subjective & Objective Subjective Subjective:: Patient is a pleasant 54-year-old female who presents today for follow-up of lumbar epidural steroid injection L3-L4 on 05/27/2024. Today she rates her pain a 3 out of 10. Patient states that she had at least 75% improvement following this injection. Patient states that her pain has been much more manageable since. Patient states she has been able to increase her activity with decreased pain and improved function. Patient does state that it did take a few days to really kick in. Patient does states she has an appointment with neurosurgeon Dr. Walker on 02 July. Patient is currently managed with [place] 10 mg 4 times a day, pregabalin 100 mg 3 times a day and baclofen 10 mg 4 times a day. She denies any side effects from this medication. Her Loi has been reviewed and is appropriate. Review of Systems: General: No recent weight changes, no fever, no sleep disturbances Respiratory: No cough, no shortness of air, no recurring pulmonary infections Cardiovascular/peripheral vascular: No chest pain, no palpitations, no edema, no shortness of breath Gastrointestinal: No new onset incontinence, normal bowel movements reported Genitourinary: No new onset incontinence Musculoskeletal: Low back pain Psychiatric: [Normal mood/affect] Neurological: [Denies weakness in extremities], [denies balance issues] Pain at rest (0-10 scale): 3 Objective Objective:: Physical Exam: General: Alert and oriented x3, no acute distress, pleasant and cooperative Lungs: Respirations even and unlabored, symmetrical chest expansion Eyes: PERRL Musculoskeletal: Flexion and extension of lumbar [spine] somewhat guarded secondary to pain, [antalgic gait noted] Neurological: Speech clear, no gross sensory deficit Has patient had previous pain injection?: Yes Percent improvement in pain since last injection: 75% Conservative treatment options previously tried: Home exercise plan Length of treatment: Longer than 6 weeks Meds Home Medications and Allergies Home Medications ?Medication ?Instructions ?Recorded ?Confirmed ?Type warfarin 5 mg tablet 2.5 mg PO SUMOTUWETHSA Blood 10/24/22 06/12/24 History thinner albuterol sulfate 90 mcg/actuation 1 puff inhalation Q6HP PRN 07/16/23 06/12/24 History aerosol inhaler Shortness Of Breath warfarin 2 mg tablet 2 mg PO FR Blood Thinner 07/16/23 06/12/24 History aspirin 81 mg tablet,delayed 81 mg PO DAILY 12/04/23 06/12/24 History release cyanocobalamin (vitamin B-12) 1,000 mcg SQ WEEKLY 01/01/24 06/12/24 History 1,000 mcg/mL injection solution hydroxychloroquine 200 mg tablet 200 mg PO BID Lupus 90 days #180 01/18/24 06/12/24 Rx tabs alendronate 10 mg tablet 10 mg PO DAILY 90 days #90 tabs 02/05/24 06/12/24 Rx fezolinetant 45 mg tablet (Veozah) 45 mg PO DAILY #90 tabs 04/02/24 06/12/24 Rx baclofen 5 mg tablet 5 mg PO TID MUSCLE SPASMS #90 tabs 04/30/24 06/12/24 Rx prednisone 20 mg tablet 20 mg PO BID 5 days #10 tabs 05/06/24 06/12/24 Rx baclofen 10 mg tablet 10 mg PO QID #120 tabs 05/14/24 06/12/24 Rx hydrocodone 10 mg-acetaminophen 1 tab PO QID #120 tabs 05/14/24 06/12/24 Rx 325 mg tablet pregabalin 100 mg capsule 100 mg PO TID #90 caps 05/14/24 06/12/24 Rx cyclobenzaprine 10 mg tablet 10 mg PO DIRECTED 05/28/24 06/12/24 History enoxaparin 60 mg/0.6 mL 60 mg SQ DIRECTED 05/28/24 06/12/24 History subcutaneous syringe hydrocodone 5 mg-acetaminophen 325 1 tab PO Q6H PRN pain 3 days #12 06/02/24 06/12/24 Rx mg tablet tabs ondansetron 4 mg disintegrating 4 mg PO Q6H PRN nausea and 06/02/24 06/12/24 Rx tablet vomiting 5 days #20 tabs cefdinir 300 mg capsule 300 mg PO BID 10 days #20 caps 06/05/24 06/12/24 Rx ketorolac 10 mg tablet 10 mg PO .every 12 PRN 06/05/24 06/12/24 Rx breakthrough pain, severe 5 days #10 tabs tamsulosin 0.4 mg capsule 0.4 mg PO HS #20 caps 06/05/24 06/12/24 Rx New Prescriptions to Start Prescriptions: Allergies Allergy/AdvReac Type Severity Reaction Status Date / Time gum mastic Allergy Unknown Verified 05/28/24 14:09 [From MASTISOL ADHESIVE] measles, mumps, and rubella Allergy Unknown Verified 05/28/24 14:09 vaccine [MEASLES, MUMPS, AND RUBELLA VACCINE] methyl salicylate Allergy Unknown Verified 05/28/24 14:09 [From MASTISOL ADHESIVE] Penicillins [PENICILLINS] Allergy Unknown Verified 05/28/24 14:09 storax Allergy Unknown Verified 05/28/24 14:09 [From MASTISOL ADHESIVE] Sulfa (Sulfonamide Allergy Unknown Verified 05/28/24 14:09 Antibiotics) [SULFA (SULFONAMIDE ANTIBIOTICS)] sumatriptan [From IMITREX] Allergy Unknown Verified 05/28/24 14:09 adhesive AdvReac Mild Rash Verified 05/28/24 14:09 Assessment and Plan *Assessment and plan (1) Lumbar radiculopathy: Status: Chronic Category: Medical Code(s): M54.16 - Radiculopathy, lumbar region (2) Degenerative disc disease: Status: Chronic Qualifiers: Spinal region: lumbar Qualified Code(s): M51.36 - Other intervertebral disc degeneration, lumbar region Category: Medical Plan Patient has had significant improvement following her lumbar epidural and does not require any additional injection therapy at this time. Patient will be refilled on her [place], pregabalin and baclofen. Patient will return to clinic in 1 month for reevaluation of symptoms and plan of care. Risks and benefits of the medication have been explained in detail to the patient. The patient does understand the risk of dependence on the medication when given over a prolonged period. Patient has been advised of risks of oversedation with the prescribed medication. Narcan has been offered to the paitent in the event of oversedation. Patient has been advised that a family member should also be educated regarding administration of Narcan. The patient has been advised to consult with his/her primary care provider and pharmacist regarding drug-drug interaction of medications currently prescribed. Patient has been prescribed a controlled substance after being counseled on the medication, medication safety, and possible side effects. Opioid contract was reviewed and signed by the patient, and that they have agreed to all of the terms set forth by our compliance program. Patient has been instructed to contact the clinic with any concerns before the next appointment. Dr. Venegas has reviewed this note and agrees with this plan of care. This note was dictated using voice recognition software and make contain errors or omissions.
== END 2024-06-12 23:59 | disposition home or self-care (01) ==
PROVIDERS: PCP Family Medicine; Visit Provider Nurse Practitioner Family
DX: M51.16 Intervertebral disc disorders with radiculopathy, lumbar region (principal); Z86.73 Personal history of transient ischemic attack (TIA), and cerebral infarction without residual deficits; Z79.01 Long term (current) use of anticoagulants; Z79.899 Other long term (current) drug therapy
CPT/HCPCS: 99212; G0463

== ENCOUNTER 2024-06-13 07:55 | Outpatient (CLI) | payer OTHER, SELFPAY ==
[2024-06-13 10:18] LABS: PHA INR Fingerstick 2.1 (0.9-1.1)
== END 2024-06-13 10:19 ==
LOC: ACC 07:55
PROVIDERS: PCP Family Medicine; Visit Provider Physician Assistant
DX: Z79.01 Long term (current) use of anticoagulants (principal); G45.9 Transient cerebral ischemic attack, unspecified
CPT/HCPCS: 85610; 99211; G0463

== ENCOUNTER 2024-06-25 10:57 | Emergency (ER) | payer OTHER, SELFPAY ==
[2024-06-25 11:30] VITALS: BP 142/77; PULSE 66; RESP 16; TEMP 36.8; O2SAT 99; BMI 32.8
[2024-06-25 11:34] LABS: Apearance,Urine Clear (Clear); Bilirubin,Urine Negative (Negative); Blood, Urine Negative (Negative); Color,Urine Dark Yellow (Yellow); Glucose,Urine (UA) Negative (Negative); Ketones,Urine Negative (Negative); PH,Urine 5.5 (5.0-8.5); Protein,Urine Trace (Negative); Specific Gravity, Urine >= 1.030 (1.005-1.030); UTC Leukocyte Esterase,Urine Negative (Negative); UTC Nitrate,Urine Negative (Negative); Urobilinogen,Urine 0.2 EU/dl (0.2)
--- NOTE | 2024-06-25 11:46 | ED_ITS ---
Discharge Plan Disposition Patient Disposition: Home, Self-Care Condition: Good Prescriptions Prescriptions: No Action aspirin 81 mg tablet,delayed release (DR/EC) 81 mg PO DAILY cyanocobalamin (vitamin B-12) 1,000 mcg/mL solution 1,000 mcg SQ WEEKLY Patient Comments: INJECT 1 ML SUBCUTANEOUSLY ONCE A WEEK alendronate 10 mg tablet 10 mg PO DAILY 90 Days Qty: 90 2RF Veoz[place] 45 mg tablet 45 mg PO DAILY Qty: 90 3RF albuterol sulfate 90 mcg/actuation HFA aerosol inhaler 1 puff inhalation Q6HP PRN (Reason: Shortness Of Breath) Rx Instructions: INHALE 1 PUFF BY MOUTH EVERY 6 HOURS NEEDED FOR SHORTNESS OF BREATH OR WHEEZING oxycodone 5 mg tablet 5 mg PO Q6H PRN (Reason: pain) Qty: 60 0RF hydrocodone-acetaminophen 10-325 mg tablet 1 tab PO Q6HP PRN (Reason: MILD TO MODERATE PAIN) baclofen 10 mg tablet 10 mg PO QID pregabalin 100 mg capsule 200 mg PO HS Patient Comments: 100 mg orally three times a day hydroxychloroquine 200 mg tablet 200 mg PO BID warfarin 5 mg tablet 2.5 mg PO SUTUTHSA oxycodone 5 mg Tablet 10 mg PO Q6HP PRN (Reason: Severe Pain (7-10)) 3 Days Qty: 12 0RF pantoprazole 40 mg tablet,delayed release (DR/EC) 40 mg PO DAILY Qty: 30 0RF cefdinir 300 mg capsule 300 mg PO Q12H 5 Days Qty: 10 0RF warfarin 5 mg tablet 5 mg PO MOWEFR Referrals Follow up/Referrals: Valentin Daniel MD [Primary Care Provider] - See instructions Activity Restrictions/Add. Instructions Additional Instructions/Restrictions: Drink plenty of fluids. Take tylenol or ibuprofen for pain or fever. Take the medications as directed. Follow up with your regular doctor. GO TO THE ER FOR ANY WORSENING SYMPTOMS The pyridium will make your urine turn orange, this is an expected side effect. It will stain your clothes if it comes into contact with them. We will culture the urine. That will tell what bacteria is causing your infection and which antibiotics will treat it best. Clinical Impressions Clinical Impression: Dysuria Instructions Patient Instructions: Urine Culture, DI for Urinary Tract Infection (UTI), Phenazopyridine Print Language Print Language: Samoan Discharge ED Provider: Richard Rhodes [facility] [place], [place] HPI General Stated complaint: Pain and frequent urination Mode of Arrival: Ambulatory Source of Information: Patient Time Seen by Provider: 06/25/24 11:45 Description of Symptoms (Recalled from Triage Doc. by RN): URETHRAL DISCOMFORT WITH FREQ. HEENT Symptoms (Recalled from RN notes): No Resp Symptoms (Recalled from RN notes): No Skin Symptoms (Recalled from RN notes): No MS Symptoms (Recalled from RN notes): No Functional Status (Recalled from RN notes): WLN Related Data Home Medications ?Medication ?Instructions ?Recorded ?Confirmed warfarin 5 mg tablet 5 mg PO MOWEFR 10/24/22 06/30/24 albuterol sulfate 90 mcg/actuation 1 puff inhalation Q6HP PRN 07/16/23 07/01/24 aerosol inhaler Shortness Of Breath aspirin 81 mg tablet,delayed 81 mg PO DAILY 12/04/23 06/30/24 release cyanocobalamin (vitamin B-12) 1,000 mcg SQ WEEKLY 01/01/24 06/30/24 1,000 mcg/mL injection solution baclofen 10 mg tablet 10 mg PO QID 06/30/24 06/30/24 hydrocodone 10 mg-acetaminophen 1 tab PO Q6HP PRN MILD TO MODERATE 06/30/24 06/30/24 325 mg tablet PAIN hydroxychloroquine 200 mg tablet 200 mg PO BID 06/30/24 06/30/24 pregabalin 100 mg capsule 200 mg PO HS 06/30/24 06/30/24 warfarin 5 mg tablet 2.5 mg PO SUTUTHSA 06/30/24 06/30/24 Previous Rx's ?Medication ?Instructions ?Recorded alendronate 10 mg tablet 10 mg PO DAILY 90 days #90 tabs 02/05/24 fezolinetant 45 mg tablet (Veozah) 45 mg PO DAILY #90 tabs 04/02/24 cefdinir 300 mg capsule 300 mg PO Q12H 5 days #10 caps 07/01/24 oxycodone 5 mg tablet 10 mg (2 x 5 mg) PO Q6HP PRN 07/01/24 Severe Pain (7-10) 3 days #12 tabs pantoprazole 40 mg tablet,delayed 40 mg PO DAILY #30 tabs 09/17/24 release oxycodone 5 mg tablet 5 mg PO Q6H PRN pain #60 tabs 07/02/24 Allergies Allergy/AdvReac Type Severity Reaction Status Date / Time gum mastic Allergy Unknown Verified 05/28/24 14:09 [From MASTISOL ADHESIVE] measles, mumps, and rubella Allergy Unknown Verified 05/28/24 14:09 vaccine [MEASLES, MUMPS, AND RUBELLA VACCINE] methyl salicylate Allergy Unknown Verified 05/28/24 14:09 [From MASTISOL ADHESIVE] Penicillins [PENICILLINS] Allergy Unknown Verified 05/28/24 14:09 storax Allergy Unknown Verified 05/28/24 14:09 [From MASTISOL ADHESIVE] Sulfa (Sulfonamide Allergy Unknown Verified 05/28/24 14:09 Antibiotics) [SULFA (SULFONAMIDE ANTIBIOTICS)] sumatriptan [From IMITREX] Allergy Unknown Verified 05/28/24 14:09 adhesive AdvReac Mild Rash Verified 05/28/24 14:09 Worker's Comp Is this a Worker's Comp case?: No [facility] Disclaimer: The information contained in this section may have been updated after the patient was seen, as this information can be updated by other users. Medical History Vasomotor symptoms due to menopause Stroke Lupus Asthma History of gastroesophageal reflux (GERD) Hypertension Dizziness Edema History of TIA (transient ischemic attack) History of DVT (deep vein thrombosis) Surgical History H/O gastric bypass History of hysterectomy History of section History of appendectomy History of cholecystectomy Family History Other Coronary artery disease Diabetes Social History Smoking Status: Unknown if ever smoked second hand exposure: No alcohol intake: never substance use type: denies use current occupational status: employed Travel in the last 8 weeks: None household members: spouse housing: house caffeine: Yes ROS Obtained: Yes All systems reviewed & no additional complaints except as documented Constitutional Constitutional: Denies chills and Denies fever(s) Eyes Eyes: Denies eye discharge ENT Ears, Nose, Mouth, and Throat: Denies dizziness, Denies otalgia and Denies sore throat Cardiovascular Cardiovascular: Denies chest pain Respiratory Respiratory: Denies shortness of breath, Denies chest congestion, Denies cough, Denies stridor and Denies wheezing Gastrointestinal Gastrointestingal: Denies nausea or vomiting Musculoskeletal Musculoskeletal: Reports system reviewed and no additional complaints, except as documented and Denies arthralgias Integumentary/Breasts Skin/Breast: Denies rash Neurologic Neurologic: Denies dizziness and Denies paresthesias Allergic/Immunologic Allergic/Immunologic: Denies wheezing Physical Exam General General appearance: alert and in no apparent distress Head Head exam: atraumatic, normocephalic and normal inspection Eye Eye exam: Present normal appearance, PERRL and EOMI ENT ENT exam: Present normal exam, normal oropharynx, mucous membranes moist, TM's normal bilaterally and normal external ear exam Neck Neck exam: Present normal inspection, full ROM and trachea midline; Absent meningismus or lymphadenopathy Chest Chest inspection: Present normal inspection and symmetric chest wall rise; Absent tenderness Respiratory Respiratory exam: Present normal lung sounds bilaterally; Absent respiratory distress Cardiovascular Cardiovascular exam: Present regular rate and normal rhythm; Absent JVD Abdominal Exam Abdominal exam: Present soft and normal bowel sounds; Absent distention, tenderness or guarding Extremities Exam Extremities exam: Present normal inspection, full ROM and normal capillary refill; Absent calf tenderness Back Exam Back exam: Present normal inspection; Absent tenderness Neurological Exam Neurological exam: Present alert and oriented X3 Psychiatric Psychiatric exam: Present normal affect and normal mood Skin Skin exam: Present warm, dry, intact and normal color Lymphatic Lymphatic Findings: no adenopathy Medical Decision Making Medical Records Medical records reviewed: No I reviewed the patient's medical records. Loi Inquiry Pt receiving controlled substance: No Vital Signs: 06/25/24 11:30 Temperature 98.3 F Temperature Source Oral Pulse Rate [Left Brachial] 66 Respiratory Rate 16 Blood Pressure [Left Arm] 142/77 H Blood Pressure Mean [Left Arm] 98 02 Sat by Pulse Oximetry 99 Lab Data Lab results reviewed: Yes I reviewed the patient's lab results. Lab Results 06/25/24 11:33: Urine Color Dark yellow, Urine Appearance Clear, Urine pH 5.5, Ur Specific [place] >= 1.030, Urine Protein Trace, Urine Glucose (UA) Negative, Urine Ketones Negative, Urine Blood Negative, Urine Nitrate Negative, Urine Bilirubin Negative, Urine Urobilinogen 0.2, Ur Leukocyte Esterase Negative Orders (Tests/Meds): ORDERS Category Date Time Status Urine Culture Stat Micro 06/25/24 11:26 Received
[2024-06-25 12:25] VITALS: BP 142/77; PULSE 66; RESP 16; TEMP 36.8; O2SAT 99
== END 2024-06-25 12:27 | disposition home or self-care (01) ==
PROVIDERS: Emergency Provider Nurse Practitioner Family; PCP Family Medicine
DX: R30.0 Dysuria (principal); R35.0 Frequency of micturition; B96.89 Other specified bacterial agents as the cause of diseases classified elsewhere
CPT/HCPCS: 81003; 87086; 99212; 99214; G0463

== ENCOUNTER 2024-06-25 17:00 | Outpatient (RCR) | payer OTHER, SELFPAY | END 2024-06-25 17:05 | disposition home or self-care (01) | LOC: PT 17:00 | PROVIDERS: Visit Provider Neurological Surgery | DX: M54.50 Low back pain, unspecified (principal) | CPT/HCPCS: 97110; 97140; 97163; 97164; 97530 ==

== ENCOUNTER 2024-06-30 09:50 | Observation (INO) | payer OTHER, SELFPAY ==
[2024-06-30] VITALS (15 sets, daily range): BP systolic 106–178; BP diastolic 55–100; PULSE 61–88; RESP 16–20; TEMP 36.6–36.8; O2SAT 93–99; BMI 32.8
--- NOTE | 2024-06-30 10:27 | HMH.EDGENADL ---
Discharge Plan Disposition Patient Disposition: Admitted Condition: Good Clinical Impressions Clinical Impression: Back pain, Tylenol ingestion, Lupus, UTI (urinary tract infection) Discharge ED Provider: Zoë Ruelas General Adult HPI General Chief complaint: Back Pain/Injury Stated complaint: Lower back pain, lupus Time Seen by Provider: 06/30/24 09:57 Mode of Arrival: Ambulatory Source of Information: Patient Limitations: No Limitations Description of Symptoms (Recalled from ER Triage Doc. by RN): Patient reports lower back pain, Lupus flare up, joint pain, and rash to bilateral lower extremities. History of Present Illness HPI narrative: This patient is a 54-year-old female with a history of lupus on Plaquenil, GERD, hypertension, antiphospholipid antibody syndrome on Coumadin, prior CVA, and asthma presenting to the emergency department for evaluation with concern for low back pain and lupus flareup. Patient states that she is currently being worked up for degenerative disc disease and low back pain on an outpatient basis and is awaiting an appointment with a surgeon this coming week. She states that her pain had initially been well managed, however starting Sunday it started to become unbearable and she is taken multiple medications at home without good improvement. She denies any saddle anesthesia, incontinence, or sensations of urinary retention but she states that she has had urinary urgency and has dribbled a little bit on her way to the bathroom, though not fully incontinent. She also states that she feels very weak, hot, and is having joint aches all over. She states she developed a lupus rash on her lower extremities over the weekend as well and is concerned that she is in a full-fledged lupus flare. No fevers noted at home. Related Data Home Medications ?Medication ?Instructions ?Recorded ?Confirmed warfarin 5 mg tablet 5 mg PO MOWEFR 10/24/22 06/30/24 albuterol sulfate 90 mcg/actuation 1 puff inhalation Q6HP PRN 07/16/23 06/25/24 aerosol inhaler Shortness Of Breath aspirin 81 mg tablet,delayed 81 mg PO DAILY 12/04/23 06/25/24 release cyanocobalamin (vitamin B-12) 1,000 mcg SQ WEEKLY 01/01/24 06/30/24 1,000 mcg/mL injection solution baclofen 10 mg tablet 10 mg PO QID 06/30/24 06/30/24 hydrocodone 10 mg-acetaminophen 1 tab PO Q6HP PRN MILD TO MODERATE 06/30/24 06/30/24 325 mg tablet PAIN hydroxychloroquine 200 mg tablet 200 mg PO BID 06/30/24 06/30/24 pregabalin 100 mg capsule 100 mg PO TID 06/30/24 warfarin 5 mg tablet 2.5 mg PO SUTUTHSA 06/30/24 06/30/24 Previous Rx's ?Medication ?Instructions ?Recorded alendronate 10 mg tablet 10 mg PO DAILY 90 days #90 tabs 02/05/24 fezolinetant 45 mg tablet ([place]) 45 mg PO DAILY #90 tabs 04/02/24 Allergies Allergy/AdvReac Type Severity Reaction Status Date / Time gum mastic Allergy Unknown Verified 05/28/24 14:09 [From MASTISOL ADHESIVE] measles, mumps, and rubella Allergy Unknown Verified 05/28/24 14:09 vaccine [MEASLES, MUMPS, AND RUBELLA VACCINE] methyl salicylate Allergy Unknown Verified 05/28/24 14:09 [From MASTISOL ADHESIVE] Penicillins [PENICILLINS] Allergy Unknown Verified 05/28/24 14:09 storax Allergy Unknown Verified 05/28/24 14:09 [From MASTISOL ADHESIVE] Sulfa (Sulfonamide Allergy Unknown Verified 05/28/24 14:09 Antibiotics) [SULFA (SULFONAMIDE ANTIBIOTICS)] sumatriptan [From IMITREX] Allergy Unknown Verified 05/28/24 14:09 adhesive AdvReac Mild Rash Verified 05/28/24 14:09 [facility] Disclaimer: The information contained in this section may have been updated after the patient was seen, as this information can be updated by other users. Medical History Vasomotor symptoms due to menopause Stroke Lupus Asthma History of gastroesophageal reflux (GERD) Hypertension Dizziness Edema History of TIA (transient ischemic attack) History of DVT (deep vein thrombosis) Surgical History H/O gastric bypass History of hysterectomy History of section History of appendectomy History of cholecystectomy Family History Other Coronary artery disease Diabetes Social History (Reviewed 06/30/24 @ 10:29 by VICKY Fields Smoking Status: Unknown if ever smoked second hand exposure: No alcohol intake: never substance use type: denies use current occupational status: employed Travel in the last 8 weeks: None household members: spouse housing: house caffeine: Yes ROS Obtained: Yes All systems reviewed & no additional complaints except as documented Physical Exam General General appearance: alert and in no apparent distress Head Head exam: atraumatic and normocephalic Eye Eye exam: Present normal appearance, PERRL and EOMI ENT ENT exam: Present normal exam, normal oropharynx, mucous membranes moist and normal external ear exam Neck Neck exam: Present normal inspection, full ROM and trachea midline; Absent tenderness Chest Chest inspection: Present normal inspection and symmetric chest wall rise; Absent tenderness Respiratory Respiratory exam: Present normal lung sounds bilaterally; Absent respiratory distress, wheezes, stridor or accessory muscle use Cardiovascular Cardiovascular exam: Present regular rate and normal rhythm Abdominal Exam Abdominal exam: Present soft; Absent distention, tenderness or guarding Extremities Exam Extremities exam: Present normal inspection, full ROM and normal capillary refill; Absent tenderness or edema Back Exam Back exam: Present full ROM and tenderness Neurological Exam Neurological exam: Present alert, oriented X3, CN II-XII intact and normal gait; Absent motor sensory deficit Psychiatric Psychiatric exam: Present normal affect and normal mood Skin Skin exam: Present warm, dry and rash (Erythematous blanching maculopapular rash to the bilateral lower extremities with no sloughing, bullae, negative Nikolsky sign) Medical Decision Making Medical Records Medical records reviewed: Yes I reviewed the patient's medical records. Loi Inquiry Pt receiving controlled substance: No Vital Signs: 06/30/24 09:50 06/30/24 10:00 06/30/24 10:30 Temperature 98.3 F Temperature Source Oral Pulse Rate 84 76 Pulse Rate [Radial] 80 Respiratory Rate 16 Blood Pressure 133/85 147/85 H Blood Pressure [Right Arm] 138/80 Blood Pressure Mean 91 Blood Pressure Mean [Right Arm] 99 Blood Pressure Source [Right Arm] Automatic Cuff Blood Pressure Position [Right Arm] Sitting 02 Sat by Pulse Oximetry 97 95 95 Oxygen Delivery Method Room Air Room Air 06/30/24 10:46 06/30/24 11:00 06/30/24 11:50 Temperature Temperature Source Pulse Rate 68 67 67 Pulse Rate [Radial] Respiratory Rate Blood Pressure 125/90 144/92 H 112/73 Blood Pressure [Right Arm] Blood Pressure Mean 99 109 86 Blood Pressure Mean [Right Arm] Blood Pressure Source [Right Arm] Blood Pressure Position [Right Arm] 02 Sat by Pulse Oximetry 94 L 93 L 93 L Oxygen Delivery Method Room Air Room Air Room Air 06/30/24 12:00 06/30/24 12:31 06/30/24 13:00 Temperature Temperature Source Pulse Rate 65 71 65 Pulse Rate [Radial] Respiratory Rate Blood Pressure 115/77 126/87 135/85 Blood Pressure [Right Arm] Blood Pressure Mean 87 100 98 Blood Pressure Mean [Right Arm] Blood Pressure Source [Right Arm] Blood Pressure Position [Right Arm] 02 Sat by Pulse Oximetry 95 97 96 Oxygen Delivery Method Room Air Room Air Room Air 06/30/24 13:32 06/30/24 14:30 06/30/24 15:00 Temperature Temperature Source Pulse Rate 64 88 76 Pulse Rate [Radial] Respiratory Rate Blood Pressure 168/99 H 130/88 178/100 H Blood Pressure [Right Arm] Blood Pressure Mean 120 97 Blood Pressure Mean [Right Arm] Blood Pressure Source [Right Arm] Blood Pressure Position [Right Arm] 02 Sat by Pulse Oximetry 94 L 94 L 94 L Oxygen Delivery Method Room Air Room Air Room Air 06/30/24 15:50 Temperature 98.0 F Temperature Source Pulse Rate 67 Pulse Rate [Radial] Respiratory Rate 20 Blood Pressure 130/88 Blood Pressure [Right Arm] Blood Pressure Mean Blood Pressure Mean [Right Arm] Blood Pressure Source [Right Arm] Blood Pressure Position [Right Arm] 02 Sat by Pulse Oximetry Oxygen Delivery Method Room Air Lab Data Lab results reviewed: Yes I reviewed the patient's lab results. Lab Results 06/30/24 10:27: WBC 6.8, RBC 4.63, Hgb 13.3, Hct 42.2, MCV 91.0, MCH 28.7, MCHC 31.5 L, RDW 13.9, Plt Count 279, MPV 8.9, Neut % (Auto) 66.2, Lymph % (Auto) 16.9, [place] % (Auto) 7.2, Eos % (Auto) 9.0, Baso % (Auto) 0.7, Neut # (Auto) 4.5, Lymph # (Auto) 1.1, [place] # (Auto) 0.5, Eos # (Auto) 0.6 H, Baso # (Auto) 0.0, PT 18.2 H, INR 1.71 H, Sodium 134 L, Potassium 3.3 L, Chloride 101, Carbon Dioxide 30, Anion Gap 6.3, BUN 7, Creatinine 0.50 L, Estimated Creat Clear 172, Estimated GFR 129, Est GFR ( Amer) 156, Glucose 121 H, Calcium 8.5, Total Bilirubin 1.0, AST 115 H, ALT 159 H, Alkaline Phosphatase 427 H, Total Protein 6.8, Albumin 3.6, Globulin 3.2, Albumin/Globulin Ratio 1.1, Acetaminophen < 10 L 06/30/24 10:29: Urine Color [place], Urine Appearance Clear, Urine pH 6.0, Ur Specific [place] >= 1.030, Urine Protein 1+ A, Urine Glucose (UA) Negative, Urine Ketones Trace, Urine Blood Negative, Urine Nitrate Positive, Urine Bilirubin 2+ A, Urine Urobilinogen 4.0, Ur Leukocyte Esterase Trace, Urine RBC Occasional, Urine WBC Occasional, Ur Squamous Epith Cells 3-5, Urine Bacteria 2+ 06/30/24 10:27 06/30/24 10:27 Orders (Tests/Meds): ED MEDICATIONS Generic Name Dose Route Start Last Admin Trade Name Freq PRN Reason Stop Dose Admin Acetylcysteine 6,000 mg 06/30/24 16:00 06/30/24 16:01 Acetylcysteine 20% 30ml Bottle PO 07/03/24 08:01 6,000 mg Q4H JOAN Administration Ceftriaxone Sodium 2 gm/ 100 mls @ 200 mls/hr 06/30/24 12:45 06/30/24 12:47 Sodium Chloride IV 07/10/24 12:44 200 mls/hr Q24H JOAN Administration Oxycodone HCl 10 mg 06/30/24 13:25 Oxycodone 5mg Immediate Release Tablet PO 07/30/24 13:24 Q6HP PRN Severe Pain (7-10) Discontinued Medications Generic Name Dose Route Start Last Admin Trade Name Freq PRN Reason Stop Dose Admin Acetylcysteine 12,000 mg 06/30/24 12:00 06/30/24 12:01 Acetylcysteine 20% 30ml Bottle PO 06/30/24 12:01 12,000 mg ONCE ONE Administration Belladonna Alkaloids 60 ml 06/30/24 10:18 06/30/24 10:36 Belladonna Alkaloids 60 Ml Ml PO 06/30/24 10:19 60 ml ONCE ONE Administration Ketorolac Tromethamine 15 mg 06/30/24 11:12 06/30/24 12:02 Ketorolac 30mg/Ml Vial IV 06/30/24 11:13 15 mg ONCE ONE Administration Lidocaine 1 each 06/30/24 10:18 06/30/24 10:36 Lidocaine 5% Transdermal Patch TP 06/30/24 10:19 1 each ONCE ONE Administration Ondansetron HCl 4 mg 06/30/24 14:36 06/30/24 14:41 Ondansetron 4mg/2ml Vial IV 06/30/24 14:37 4 mg ONCE ONE Administration Oxycodone HCl 10 mg 06/30/24 12:56 06/30/24 13:00 Oxycodone 5mg Immediate Release Tablet PO 06/30/24 12:57 10 mg ONCE ONE Administration ORDERS Category Date Time Status CT abdomen pelvis wo con Stat Cat Scan 06/30/24 11:01 Completed US RUQ [US abdomen limited] Stat Exams 06/30/24 11:01 Completed Acetaminophen Stat Lab 06/30/24 10:27 Completed CBC w/Auto Diff [Complete Blood Count Auto Diff] Stat Lab 06/30/24 10:27 Completed CMP [Comprehensive Metabolic Panel] Stat Lab 06/30/24 10:27 Completed Complete Blood Count Auto Diff AMLAB Lab 07/01/24 06:00 Ordered Comprehensive Metabolic Panel AMLAB Lab 07/01/24 06:00 Ordered INR [Prothrombin Time INR] Stat Lab 06/30/24 10:27 Completed Magnesium AML[facility] Lab 07/01/24 06:00 Ordered Prothrombin Time INR AMLAB Lab 07/01/24 06:00 Ordered UA [Urinalysis and Microscopic] Stat Lab 06/30/24 10:29 Completed Urine Culture Stat Micro 06/30/24 10:29 Received Medical Decision Narrative: In summary, this patient is a 54-year-old female presenting to the Emergency Department for evaluation of flare of low back pain as well as concerns for lupus flare with rash and bodyaches. Differential diagnoses considered include but are not limited to lupus flare, acute on chronic back pain, cauda equina syndrome, spinal cord compression, urinary tract infection. Ruling out the most morbid conditions drove assessment. It should be noted patient's history includes obesity, lupus, antiphospholipid antibody syndrome which may or may not be at goal therapy. This complicates all aspects of care by increasing patient's risk for morbidity. I reviewed patient's past medical records and noted recent MRI 06/11/2024 which showed degenerative changes without spinal cord compression. On exam, the patient is sitting upright in bed in no acute distress. She has had complaints of some urinary dribbling but no true incontinence, saddle anesthesia, or other concerns that suggest spinal cord compression/cauda equina syndrome. No fevers noted. She does have an erythematous blanching maculopapular rash to the bilateral lower extremities which she states is lupus rash. Workup included CBC, CMP, urinalysis. Postvoid bladder scan was obtained to ensure that the patient does not have any significant urinary retention that would point towards spinal cord compression/cauda equina syndrome. She was given a GI cocktail for GERD as well as a topical Lidoderm patch for symptomatic improvement of back pain. Please see their read for final interpretation. Labs were obtained that demonstrated elevated INR in the setting of Coumadin use. Patient was found to have mild hyponatremia with a sodium of 134 as well as mild hypokalemia with potassium of 3.3. She also has transaminitis. I had further discussion with the patient and she noted that she is been taking [place] in addition to maximum extra strength Tylenol [id number] over the weekend and into today, so I was concerned for possible subacute ingestion causing Tylenol toxicity. Acetaminophen level was obtained and was negative. Urine was also concerning for infection, so I gave the patient IV Rocephin. Given her urinary symptoms, back pain, and her transaminitis, right upper quadrant ultrasound and CT abdomen pelvis without IV contrast were obtained. Patient has no retention on postvoid residual and is neurologically intact on exam so I do not feel that cauda equina syndrome or spinal cord pathology is likely. On reassessment, patient had some improvement after administration of Toradol and Lidoderm patch. She still has continued pain so she was given oral oxycodone. I had an interactive discussion with poison control who advised that given that her Tylenol level is negative, she would benefit from 21-hour NAC therapy given her transaminitis in the setting of excessive acetaminophen use over the last several days. CT and ultrasound are reassuring not demonstrate any acute pathology at this time I had an interactive discussion with the hospitalist who then admitted the patient for further evaluation and management. Critical Care Critical Care Time Critical Care Time: No
[2024-06-30 10:33] LABS: Microscopic, Urine URINE MICROSCOPIC (MICROSCOPIC)
[2024-06-30] MEDS: LIDOCAINE 5% TRANSDERMAL PATCH 1 EACH TP (10:36)
[2024-06-30] MEDS: BELLADONNA ALKALOIDS 60 ML ML PO (10:36)
[2024-06-30 10:37] LABS: Basophils % 0.7 % (0.1-2.0); Eosinophils # 0.6 K/mm3 (0.0-0.4); Hematocrit 42.2 % (37.0-47.0); Hemoglobin 13.3 g/dL (12.2-16.2); Lymphocytes # 1.1 K/mm3 (0.7-4.5); Lymphocytes % 16.9 % (10-50); Mean Corpuscular HGB Conc 31.5 g/dL (31.8-35.4); Mean Corpuscular Hemoglobin 28.7 pg (27.0-31.2); Mean Platelet Volume 8.9 fl (7.4-10.4); Monocytes # 0.5 K/mm3 (0.1-1.0); Monocytes % 7.2 % (1.7-9.3); Neutrophils # 4.5 K/mm3 (1.8-7.8); Neutrophils % 66.2 % (37.0-80.0); Platelet Count 279 K/mm3 (142-424); Red Blood Count 4.63 M/mm3 (4.20-5.40); Red Cell Distribution Width 13.9 % (11.5-17.5); White Blood Count 6.8 K/mm3 (4.8-10.8)
[2024-06-30 10:43] LABS: Appearance,Urine CLEAR (Clear); Blood, Urine Negative (Negative); Color,Urine ORANGE (Yellow); Glucose,Urine (UA) Negative (Negative); Ketones,Urine TRACE (Negative); Leukocyte Esterase,Urine TRACE (Negative); Nitrate,Urine POSITIVE (Negative); Protein,Urine 1+ (Negative); Specific Gravity, Urine >= 1.030 (1.005-1.030)
[2024-06-30 10:44] LABS: INR 1.71 (0.9-1.1); Prothrombin Time 18.2 seconds (10.1-12.5)
[2024-06-30 10:47] LABS: Albumin Level 3.6 g/dl (3.5-5.0); Chloride 101 mmol/L (98-107); Potassium 3.3 mmoL/L (3.5-5.1); Sodium 134 mmol/L (136-145)
[2024-06-30 10:50] LABS: Alanine Aminotransferase 159 U/L (12-78); Albumin/Globulin Ratio 1.1 (1.1-1.8); Alkaline Phosphatase 427 U/L (38-126); Anion Gap 6.3 mEq/L (5-15); Aspartate Amino Transferase 115 U/L (14-36); Blood Urea Nitrogen 7 mg/dl (7-17); Carbon Dioxide 30 mmol/L (22.0-30.0); Creatinine Clearance Estimated 172 mL/min (50-200); Estimated Glomerular Filt Rate 129 ml/min (>60); GFR (African American) 156 ML/MIN (>60); Globulin 3.2 g/dL (1.3-3.2); Total Protein,Serum 6.8 g/dl (6.3-8.2)
[2024-06-30 10:51] LABS: Calcium 8.5 mg/dl (8.4-10.2); Glucose 121 mg/dl (74-100)
[2024-06-30 10:55] LABS: Bilirubin,Urine 2+ (Negative)
--- NOTE | 2024-06-30 11:01 | US_ITS ---
FINAL REPORT CLINICAL HISTORY: transaminits, R sided pain FINDINGS: Sonographic images of the right upper quadrant were obtained. The pancreas is partially obscured. Head of the pancreas is normal. Liver is homogeneous. Portal vein is patent with normal directional flow. Gallbladder is absent. The common duct measures 4mm. Right kidney measures 12.1 cm and is unremarkable. IMPRESSION: Postoperative change of cholecystectomy. Otherwise, unremarkable exam. Reviewed, Interpreted and Dictated by Michaela Carlson MD Transcribed by Nicole Petty Authenticated and . [facility]
--- NOTE | 2024-06-30 11:01 | CT_ITS ---
FINAL REPORT TECHNIQUE: Thin section axial images were obtained from the lung bases to the pubic symphysis without IV contrast. Coronal reconstruction images were obtained from the axial data. Exam was performed using dose reduction technique. CLINICAL HISTORY: R flank pain COMPARISON: 06/05/2024 FINDINGS: Lung bases demonstrate a 5 mm left lower lobe nodule which is unchanged from prior exam. There is a questionable, tiny nonobstructing left renal stone. No obstructing renal or ureteral stones are identified. There is no hydronephrosis. Previously seen obstructing the right UVJ stone is no longer present. The gallbladder is absent. The remaining unenhanced solid abdominal organs are unremarkable. There are changes of gastric bypass. There is no evidence of small bowel obstruction. The appendix and uterus are absent. GI tract is without acute abnormality. There is no lymphadenopathy or ascites. No acute osseous abnormality is identified. IMPRESSION: No obstructing renal or ureteral stones. No hydronephrosis. Reviewed, Interpreted and Dictated by Michaela Carlson MD Transcribed by Nicole Petty Authenticated and [facility]
[2024-06-30 11:17] LABS: Bacteria,Urine 2+ /lpf; RBC,Urine Occasional #/hpf (0-3); WBC,Urine Occasional #/hpf (0-3)
[2024-06-30 11:33] LABS: Acetaminophen < 10 ug/ml (10-30)
[2024-06-30] MEDS: ACETYLCYSTEINE 20% 30ML BOTTLE 12000 MG PO (12:01)
[2024-06-30] MEDS: KETOROLAC 30MG/ML VIAL 15 MG IV (12:02)
[2024-06-30] MEDS: CEFTRIAXONE SODIUM 2 GM in 0.9 % SODIUM CHLORIDE 100 ML IV (12:47)
[2024-06-30] MEDS: OXYCODONE 5MG IMMEDIATE RELEASE TABLET 10 MG PO ×2 (13:00→19:08)
[2024-06-30] MEDS: ONDANSETRON 4MG/2ML VIAL 4 MG IV (14:41)
--- NOTE | 2024-06-30 15:38 | PC.NURSE ---
Report called to Laith Zhu RN on Med Surg.
[2024-06-30] MEDS: ACETYLCYSTEINE 20% 30ML BOTTLE 6000 MG PO ×2 (16:01→20:36)
--- NOTE | 2024-06-30 17:16 | P.HP_ITS ---
History of Present Illness *Admission Date: 06/30/24 *Reason for visit:: Back pain, nausea and vomiting *History of present illness: Ms. Claudio is a 54-year-old female with history of lupus, iron anemia, gastric past surgery, CHF, class I obese, antiphospholipid syndrome, CAD are with compl aint of worsening back pain, joint pains, rash on her legs along with nausea. She has a history of lupus for which she takes Plaquenil and Coumadin for antiphospholipid syndrome. She has been having worsening back pain for which she is supposed to see a neurosurgeon later this week. Due to severity of her pain, she has been taking doses of [place] along with extra Tylenol for the past several days to week. Taking 6+ grams a day. She denies any cauda equina syndromes or incontinence. States that she feels very weak, feverish, and is having joint aches all over. On workup in the ER, found to have elevated liver enzymes. Concern for chronic versus acute Tylenol toxicity. Tylenol level undetectable. Poison control contacted however and recommended admission for NAC therapy. Medicine consulted for further management. On arrival to the floor, patient's back pain is little better after receiving oxycodone. Tolerating NAC however she complains of it tasting poorly. Rash showing improvement on her legs. Denies any chest pain or shortness of breath. [facility] Disclaimer: The information contained in this section may have been updated after the patient was seen, as this information can be updated by other users. Medical History Vasomotor symptoms due to menopause Stroke Lupus Asthma History of gastroesophageal reflux (GERD) Hypertension Dizziness Edema History of TIA (transient ischemic attack) History of DVT (deep vein thrombosis) Surgical History H/O gastric bypass History of hysterectomy History of section History of appendectomy History of cholecystectomy Family History Other Coronary artery disease Diabetes Social History Smoking Status: Unknown if ever smoked second hand exposure: No alcohol intake: never substance use type: denies use current occupational status: employed Travel in the last 8 weeks: None household members: spouse housing: house caffeine: Yes Review of Systems Review of Systems Review of systems (narrative): 14 point review of systems performed, pertinent positives and negatives as per HPI Meds Home Medications and Allergies Home Medications ?Medication ?Instructions ?Recorded ?Confirmed ?Type warfarin 5 mg tablet 5 mg PO MOWEFR 10/24/22 06/30/24 History albuterol sulfate 90 mcg/actuation 1 puff inhalation NEEDED PRN 07/16/23 06/30/24 History aerosol inhaler Shortness Of Breath aspirin 81 mg tablet,delayed 81 mg PO DAILY 12/04/23 06/30/24 History release cyanocobalamin (vitamin B-12) 1,000 mcg SQ WEEKLY 01/01/24 06/30/24 History 1,000 mcg/mL injection solution alendronate 10 mg tablet 10 mg PO DAILY 90 days #90 tabs 02/05/24 06/30/24 Rx fezolinetant 45 mg tablet ([place]oz[place]) 45 mg PO DAILY #90 tabs 04/02/24 06/30/24 Rx baclofen 10 mg tablet 10 mg PO QID 06/30/24 06/30/24 History hydrocodone 10 mg-acetaminophen 1 tab PO Q6HP PRN MILD TO MODERATE 06/30/24 06/30/24 History 325 mg tablet PAIN hydroxychloroquine 200 mg tablet 200 mg PO BID 06/30/24 06/30/24 History pregabalin 100 mg capsule 200 mg PO HS 06/30/24 06/30/24 History warfarin 5 mg tablet 2.5 mg PO SUTUTHSA 06/30/24 06/30/24 History New Prescriptions to Start Prescriptions: Allergies Allergy/AdvReac Type Severity Reaction Status Date / Time gum mastic Allergy Unknown Verified 05/28/24 14:09 [From MASTISOL ADHESIVE] measles, mumps, and rubella Allergy Unknown Verified 05/28/24 14:09 vaccine [MEASLES, MUMPS, AND RUBELLA VACCINE] methyl salicylate Allergy Unknown Verified 05/28/24 14:09 [From MASTISOL ADHESIVE] Penicillins [PENICILLINS] Allergy Unknown Verified 05/28/24 14:09 storax Allergy Unknown Verified 05/28/24 14:09 [From MASTISOL ADHESIVE] Sulfa (Sulfonamide Allergy Unknown Verified 05/28/24 14:09 Antibiotics) [SULFA (SULFONAMIDE ANTIBIOTICS)] sumatriptan [From IMITREX] Allergy Unknown Verified 05/28/24 14:09 adhesive AdvReac Mild Rash Verified 05/28/24 14:09 Exam Data for Last 24 hours Vital signs and Labs for Last 24 Hours: Temp Pulse Resp BP Pulse Ox O2 Del Method 98.0 F 67 20 130/88 94 L Room Air 06/30/24 15:50 06/30/24 15:50 06/30/24 15:50 06/30/24 15:50 06/30/24 15:00 06/30/24 15:50 Laboratory Results - last 24 hr 06/30/24 10:27: WBC 6.8, RBC 4.63, Hgb 13.3, Hct 42.2, MCV 91.0, MCH 28.7, MCHC 31.5 L, RDW 13.9, Plt Count 279, MPV 8.9, Neut % (Auto) 66.2, Lymph % (Auto) 16.9, [place] % (Auto) 7.2, Eos % (Auto) 9.0, Baso % (Auto) 0.7, Neut # (Auto) 4.5, Lymph # (Auto) 1.1, [place] # (Auto) 0.5, Eos # (Auto) 0.6 H, Baso # (Auto) 0.0, PT 18.2 H, INR 1.71 H, Sodium 134 L, Potassium 3.3 L, Chloride 101, Carbon Dioxide 30, Anion Gap 6.3, BUN 7, Creatinine 0.50 L, Estimated Creat Clear 172, Estimated GFR 129, Est GFR ( Amer) 156, Glucose 121 H, Calcium 8.5, Total Bilirubin 1.0, AST 115 H, ALT 159 H, Alkaline Phosphatase 427 H, Total Protein 6.8, Albumin 3.6, Globulin 3.2, Albumin/Globulin Ratio 1.1, Acetaminophen < 10 L 06/30/24 10:29: Urine Color [place], Urine Appearance Clear, Urine pH 6.0, Ur Specific [place] >= 1.030, Urine Protein 1+ A, Urine Glucose (UA) Negative, Urine Ketones Trace, Urine Blood Negative, Urine Nitrate Positive, Urine Bilirubin 2+ A, Urine Urobilinogen 4.0, Ur Leukocyte Esterase Trace, Urine RBC Occasional, Urine WBC Occasional, Ur Squamous Epith Cells 3-5, Urine Bacteria 2+ I & O for Last 24 hours: Intake & Output 06/27/24 06/28/24 06/29/24 06/30/24 23:59 23:59 23:59 23:59 Intake Total 120 / 120 Balance 120 / 120 Weight 83.915 kg Constitutional Constitutional: no acute distress, obese, chronically ill appearing and cooperative *Routine HEENT Exam Head: Present normocephalic and atraumatic Eye: Present EOMI and PERRL ENT: Present mucous membranes moist *Routine Neck Exam Neck: Present supple; Absent lymphadenopathy *Routine Respiratory Exam Respiratory: Present CTA bilaterally; Absent accessory muscle use, rhonchi, wheezes or crackles *Routine Cardiovascular Exam Cardiovascular: Present RRR *Routine Abdominal Exam Abdominal: Present soft and normoactive bowel sounds; Absent tenderness *Routine Rectal Exam Rectal:: deferred *Routine Genitalia Exam Genitalia:: deferred *Routine Extremities Exam Extremities: Absent cyanosis, clubbing or edema Routine Back/Spine/Pelvis Exam Comments: Mild tenderness over lower back *Routine Skin Exam Skin: Present intact, warm and rash (Bilateral lower extremities from knees down); Absent cyanosis *Routine Neurological Exam Neurological: Present alert, oriented X3, CN II-XII intact and normal speech; Absent altered mental status Assessment and Plan *Assessment and plan (1) Tylenol ingestion: Status: Acute Category: Medical Code(s): T39.1X1A - Poisoning by 4-Aminophenol derivatives, accidental (unintentional), initial encounter (2) UTI (urinary tract infection): Status: Acute Category: Medical Code(s): N39.0 - Urinary tract infection, site not specified (3) Antiphospholipid antibody syndrome: Status: Chronic Category: Medical Code(s): D68.61 - Antiphospholipid syndrome (4) History of TIA (transient ischemic attack): Status: Acute Category: Medical Code(s): Z86.73 - Personal history of transient ischemic attack (TIA), and cerebral infarction without residual deficits (5) Hypokalemia: Problem Comment: This has been repleted and was a postsurgical issue. Status: Acute Category: Medical Code(s): E87.6 - Hypokalemia (6) Essential hypertension: Status: Chronic Category: Medical Code(s): I10 - Essential (primary) hypertension (7) Lupus: Status: Acute Category: Medical Code(s): M32.9 - Systemic lupus erythematosus, unspecified (8) Class 1 obesity: Status: Chronic Category: Medical Code(s): E66.9 - Obesity, unspecified Plan Ms. Claudio is a 54-year-old female with history of antiphospholipid syndrome, lupus, TIA, worsening back pain. Presented with worsening pain and rash. Found to have elevated Tylenol ingestion causing liver injury. ER consulted medicine for admission. Discussed case and request admission for treatment with NAC as far as further pain management. Acted UTI on workup in the ER as well. Medicine agreed to admit for further management. Will monitor overnight. Repeat labs ordered for this evening. Problems addressed as follows: UTI - concern for UTI with abnormal urine. Has positive nitrate, leuk esterase, 2+ bacteria -Continue ceftriaxone 2 g daily. Urine culture pending Tylenol ingestion Transaminitis -Tylenol level less than 10. Poison control recommends treatment with N- acetylcysteine. Started on 21-hour regimen. Monitor liver enzymes. AST, ALT and alkaline phosphatase elevated in the 1-200 range. Repeat levels every 12 hours monitoring improvement. -INR subtherapeutic 1.7 based on patient's warfarin dose. Will monitor for changes. Bilirubin 1.0, normal. -Repeat CBC, CMP, magnesium ordered for the morning, CMP ordered for this evening. Antiphospholipid syndrome Lupus -Resume hydroxychloroquine 200 mg 2xdaily -Continue warfarin per home regimen. INR ordered for the morning. Hypertension -Resume home meds for blood pressure Chronic pain Restless leg -Resume home pain regimen and muscle relaxers. -Will administer oxycodone 15 mg as needed every 4-6 hours. DNR Regular diet
[2024-06-30] MEDS: WARFARIN 5MG TABLET 5 MG PO (18:19)
[2024-06-30 20:19] LABS: Albumin Level 3.3 g/dl (3.5-5.0); Chloride 101 mmol/L (98-107); Potassium 3.5 mmoL/L (3.5-5.1); Sodium 136 mmol/L (136-145)
[2024-06-30 20:22] LABS: Alanine Aminotransferase 133 U/L (12-78); Albumin/Globulin Ratio 1.1 (1.1-1.8); Alkaline Phosphatase 344 U/L (38-126); Anion Gap 7.5 mEq/L (5-15); Aspartate Amino Transferase 65 U/L (14-36); Bilirubin,Total 0.4 mg/dl (0.2-1.3); Blood Urea Nitrogen 13 mg/dl (7-17); Calcium 8.3 mg/dl (8.4-10.2); Carbon Dioxide 31 mmol/L (22.0-30.0); Creatinine Clearance Estimated 144 mL/min (50-200); Estimated Glomerular Filt Rate 105 ml/min (>60); GFR (African American) 127 ML/MIN (>60); Glucose 111 mg/dl (74-100); Total Protein,Serum 6.3 g/dl (6.3-8.2)
[2024-06-30] MEDS: BACLOFEN 10MG TABLET 10 MG PO (20:36)
[2024-06-30] MEDS: PREGABALIN 100MG CAPSULE 200 MG PO (20:37)
--- NOTE | 2024-07-01 00:50 | PC.NURSE ---
Pt c/o heart burn, ANGELITO Fernandez notified, new orders obtained.
[2024-07-01] MEDS: ACETYLCYSTEINE 20% 30ML BOTTLE 6000 MG PO ×3 (00:53→08:39)
[2024-07-01] MEDS: CALCIUM CARBONATE 500MG CHEWTAB 500 MG PO (01:09)
[2024-07-01] MEDS: FAMOTIDINE 20MG TABLET 40 MG PO (01:09)
[2024-07-01] MEDS: OXYCODONE 5MG IMMEDIATE RELEASE TABLET 10 MG PO ×2 (01:48→07:44)
[2024-07-01 04:00] VITALS: BP 113/72; PULSE 70; RESP 16; TEMP 37.1; O2SAT 99; BMI 32.6
--- NOTE | 2024-07-01 05:39 | PC.NURSE ---
Pt is A&Ox4, and currently tolerating RA well. Pt has c/o pain and heart burn this shift and has been treated per MAR. Pt has tolerated Acetylcysteine doses well this shift. Pt has had no other acute changes to note. Pt denies pain and needs at this time.
[2024-07-01 07:17] LABS: Basophils # 0.1 K/mm3 (0-0.2); Basophils % 0.8 % (0.1-2.0); Eosinophils # 0.6 K/mm3 (0.0-0.4); Eosinophils % 8.6 % (0.1-12.0); Hematocrit 36.3 % (37.0-47.0); Lymphocytes # 1.9 K/mm3 (0.7-4.5); Lymphocytes % 26.9 % (10-50); Mean Corpuscular HGB Conc 32.9 g/dL (31.8-35.4); Mean Corpuscular Volume 91.2 fl (81-99); Mean Platelet Volume 8.3 fl (7.4-10.4); Monocytes # 0.4 K/mm3 (0.1-1.0); Neutrophils # 4.2 K/mm3 (1.8-7.8); Neutrophils % 58.7 % (37.0-80.0); Platelet Count 219 K/mm3 (142-424); Red Blood Count 3.98 M/mm3 (4.20-5.40); Red Cell Distribution Width 13.6 % (11.5-17.5); White Blood Count 7.2 K/mm3 (4.8-10.8)
--- NOTE | 2024-07-01 07:35 | P.DS_ITS ---
General Admission date:: 06/30/24 Discharge date: 07/01/24 HPI HPI HPI: Ms. Claudio is a 54-year-old female with history of lupus, iron anemia, gastric past surgery, CHF, class I obese, antiphospholipid syndrome, CAD are with complaint of worsening back pain, joint pains, rash on her legs along with nausea. She has a history of lupus for which she takes Plaquenil and Coumadin for antiphospholipid syndrome. She has been having worsening back pain for which she is supposed to see a neurosurgeon later this week. Due to severity of her pain, she has been taking doses of [place] along with extra Tylenol for the past several days to week. Taking 6+ grams a day. She denies any cauda equina syndromes or incontinence. States that she feels very weak, feverish, and is having joint aches all over. On workup in the ER, found to have elevated liver enzymes. Concern for chronic versus acute Tylenol toxicity. Tylenol level undetectable. Poison control contacted however and recommended admission for NAC therapy. Medicine consulted for further management. On arrival to the floor, patient's back pain is little better after receiving oxycodone. Tolerating NAC however she complains of it tasting poorly. Rash showing improvement on her legs. Denies any chest pain or shortness of breath. Hospital Course Hospital Course Hospital Course: Ms. Claudio is a 54-year-old female with history of antiphospholipid syndrome, lupus, TIA, worsening back pain. Presented with worsening pain and rash. Found to have elevated Tylenol ingestion causing liver injury. ER consulted medicine for admission. Discussed case and request admission for treatment with NAC as far as further pain management. UTI on workup in the ER as well. Medicine agreed to admit for further management. Responded well to neck therapy. No fevers overnight. No abdominal pain. Nausea and vomiting resolved. Improvement in liver enzymes by morning. Stable to discharge home. Close follow-up as an outpatient. Problems addressed as follows: UTI - concern for UTI with abnormal urine. Has positive nitrate, leuk esterase, 2+ bacteria. Culture still pending. Treated with ceftriaxone during admission. De-escalate to cefdinir to complete empiric course of therapy. Tylenol ingestion Transaminitis -Tylenol level less than 10. Poison control recommends treatment with N- acetylcysteine. Treated with 21-hour regimen. Liver enzymes showed improvement. BUN 0.8, AST 50, ALT 102, alk phos 269 on day of discharge. Significant improvement from admission. Decreased by at least half. INR improving at 1.8, is on Coumadin for antiphospholipid syndrome. Pharmacy assisting with adjustment as she follows with Coumadin clinic. Recommend close follow-up as an outpatient Antiphospholipid syndrome Lupus -Resume hydroxychloroquine 200 mg 2xdaily -Continue warfarin per home regimen. INR 1.8 5 in the morning. Pharmacy to follow-up closely with Coumadin clinic for further adjustment Hypertension: Continue home regimen Chronic pain Restless leg -Resume home pain regimen and muscle relaxers. Initiated on oxycodone. Will be discharged with 3-day course of opiates without Tylenol. Encouraged to keep appointment with spine surgeon. Exam Data for Last 24 hours Vital signs and Labs for Last 24 Hours: Temp Pulse Resp BP Pulse Ox O2 Del Method 98.7 F 70 16 113/72 99 Room Air 07/01/24 04:00 07/01/24 04:00 07/01/24 04:00 07/01/24 04:00 07/01/24 04:00 07/01/24 06:31 Laboratory Results - last 24 hr 06/30/24 10:27: WBC 6.8, RBC 4.63, Hgb 13.3, Hct 42.2, MCV 91.0, MCH 28.7, MCHC 31.5 L, RDW 13.9, Plt Count 279, MPV 8.9, Neut % (Auto) 66.2, Lymph % (Auto) 16.9, [place] % (Auto) 7.2, Eos % (Auto) 9.0, Baso % (Auto) 0.7, Neut # (Auto) 4.5, Lymph # (Auto) 1.1, [place] # (Auto) 0.5, Eos # (Auto) 0.6 H, Baso # (Auto) 0.0, PT 18.2 H, INR 1.71 H, Sodium 134 L, Potassium 3.3 L, Chloride 101, Carbon Dioxide 30, Anion Gap 6.3, BUN 7, Creatinine 0.50 L, Estimated Creat Clear 172, Estimated GFR 129, Est GFR ( Amer) 156, Glucose 121 H, Calcium 8.5, Total Bilirubin 1.0, AST 115 H, ALT 159 H, Alkaline Phosphatase 427 H, Total Protein 6.8, Albumin 3.6, Globulin 3.2, Albumin/Globulin Ratio 1.1, Acetaminophen < 10 L 06/30/24 10:29: Urine Color [place], Urine Appearance Clear, Urine pH 6.0, Ur Specific [place] >= 1.030, Urine Protein 1+ A, Urine Glucose (UA) Negative, Urine Ketones Trace, Urine Blood Negative, Urine Nitrate Positive, Urine Bilirubin 2+ A, Urine Urobilinogen 4.0, Ur Leukocyte Esterase Trace, Urine RBC Occasional, Urine WBC Occasional, Ur Squamous Epith Cells 3-5, Urine Bacteria 2+ 06/30/24 19:59: Sodium 136, Potassium 3.5, Chloride 101, Carbon Dioxide 31 H, Anion Gap 7.5, BUN 13 D, Creatinine 0.60, Estimated Creat Clear 144, Estimated GFR 105, Est GFR ( Amer) 127, Glucose 111 H, Calcium 8.3 L, Total Bilirubin 0.4, AST 65 H D, ALT 133 H, Alkaline Phosphatase 344 H, Total Protein 6.3, Albumin 3.3 L, Globulin 3.0, Albumin/Globulin Ratio 1.1 07/01/24 06:19: WBC 7.2, RBC 3.98 L, Hct 36.3 L, MCV 91.2, MCH 30.0, MCHC 32.9, RDW 13.6, Plt Count 219, MPV 8.3, Neut % (Auto) 58.7, Lymph % (Auto) 26.9, [place] % (Auto) 5.0, Eos % (Auto) 8.6, Baso % (Auto) 0.8, Neut # (Auto) 4.2, Lymph # (Auto) 1.9, [place] # (Auto) 0.4, Eos # (Auto) 0.6 H, Baso # (Auto) 0.1 I & O for Last 24 hours: Intake & Output 06/28/24 06/29/24 06/30/24 07/01/24 23:59 23:59 23:59 23:59 Intake Total 120 / 480 360 / 360 Output Total 0 / 0 Balance 120 / 480 360 / 360 Weight 83.915 kg 83.546 kg Constitutional Constitutional: no acute distress, obese, chronically ill appearing and cooperative *Routine HEENT Exam Head: Present normocephalic Eye: Present EOMI and PERRL ENT: Present mucous membranes moist *Routine Neck Exam Neck: Present supple; Absent lymphadenopathy *Routine Respiratory Exam Respiratory: Present CTA bilaterally *Routine Cardiovascular Exam Cardiovascular: Present RRR *Routine Abdominal Exam Abdominal: Present soft and normoactive bowel sounds; Absent tenderness *Routine Rectal Exam Patient deferred: visual exam *Routine Exam Patient deferred: external exam *Routine Extremities Exam Extremities: Absent cyanosis, clubbing or edema *Routine Skin Exam Skin: Present intact, warm and rash (Bilateral lower extremities, maculopapular) *Routine Neurological Exam Neurological: Present alert, oriented X3 and moving all extremities; Absent altered mental status Results Data Completed and Pending Labs on day of discharge: Labs from last 24 hours 07/01/24 06/30/24 06/30/24 06:19 19:59 10:29 WBC 7.2 RBC 3.98 L Hgb Hct 36.3 L MCV 91.2 MCH 30.0 MCHC 32.9 RDW 13.6 Plt Count 219 MPV 8.3 Neut % (Auto) 58.7 Lymph % (Auto) 26.9 [place] % (Auto) 5.0 Eos % (Auto) 8.6 Baso % (Auto) 0.8 Neut # (Auto) 4.2 Lymph # (Auto) 1.9 [place] # (Auto) 0.4 Eos # (Auto) 0.6 H Baso # (Auto) 0.1 PT INR Sodium 136 Potassium 3.5 Chloride 101 Carbon Dioxide 31 H Anion Gap 7.5 BUN 13 D Creatinine 0.60 Estimated Creat Clear 144 Estimated GFR 105 Est GFR ( Amer) 127 Glucose 111 H Calcium 8.3 L Total Bilirubin 0.4 AST 65 H D ALT 133 H Alkaline Phosphatase 344 H Total Protein 6.3 Albumin 3.3 L Globulin 3.0 Albumin/Globulin Ratio 1.1 Urine Color [place] Urine Appearance Clear Urine pH 6.0 Ur Specific [place] >= 1.030 Urine Protein 1+ A Urine Glucose (UA) Negative Urine Ketones Trace Urine Blood Negative Urine Nitrate Positive Urine Bilirubin 2+ A Urine Urobilinogen 4.0 Ur Leukocyte Esterase Trace Urine RBC Occasional Urine WBC Occasional Ur Squamous Epith Cells 3-5 Urine Bacteria 2+ Acetaminophen 06/30/24 10:27 WBC 6.8 RBC 4.63 Hgb 13.3 Hct 42.2 MCV 91.0 MCH 28.7 MCHC 31.5 L RDW 13.9 Plt Count 279 MPV 8.9 Neut % (Auto) 66.2 Lymph % (Auto) 16.9 [place] % (Auto) 7.2 Eos % (Auto) 9.0 Baso % (Auto) 0.7 Neut # (Auto) 4.5 Lymph # (Auto) 1.1 [place] # (Auto) 0.5 Eos # (Auto) 0.6 H Baso # (Auto) 0.0 PT 18.2 H INR 1.71 H Sodium 134 L Potassium 3.3 L Chloride 101 Carbon Dioxide 30 Anion Gap 6.3 BUN 7 Creatinine 0.50 L Estimated Creat Clear 172 Estimated GFR 129 Est GFR ( Amer) 156 Glucose 121 H Calcium 8.5 Total Bilirubin 1.0 AST 115 H ALT 159 H Alkaline Phosphatase 427 H Total Protein 6.8 Albumin 3.6 Globulin 3.2 Albumin/Globulin Ratio 1.1 Urine Color Urine Appearance Urine pH Ur Specific [place] Urine Protein Urine Glucose (UA) Urine Ketones Urine Blood Urine Nitrate Urine Bilirubin Urine Urobilinogen Ur Leukocyte Esterase Urine RBC Urine WBC Ur Squamous Epith Cells Urine Bacteria Acetaminophen < 10 L DS: Diagnosis Discharge Diagnosis (1) Tylenol ingestion: Status: Acute Code(s): T39.1X1A - Poisoning by 4-Aminophenol derivatives, accidental (unintentional), initial encounter (2) UTI (urinary tract infection): Status: Acute Code(s): N39.0 - Urinary tract infection, site not specified (3) Antiphospholipid antibody syndrome: Status: Chronic Code(s): D68.61 - Antiphospholipid syndrome (4) History of TIA (transient ischemic attack): Status: Acute Code(s): Z86.73 - Personal history of transient ischemic attack (TIA), and cerebral infarction without residual deficits (5) Hypokalemia: Status: Acute Code(s): E87.6 - Hypokalemia Problem details: This has been repleted and was a postsurgical issue. (6) Essential hypertension: Status: Chronic Code(s): I10 - Essential (primary) hypertension (7) Lupus: Status: Acute Code(s): M32.9 - Systemic lupus erythematosus, unspecified (8) Class 1 obesity: Status: Chronic Code(s): E66.9 - Obesity, unspecified Meds Home Medications and Allergies Home Medications ?Medication ?Instructions ?Recorded ?Confirmed ?Type warfarin 5 mg tablet 5 mg PO MOWEFR 10/24/22 06/30/24 History albuterol sulfate 90 mcg/actuation 1 puff inhalation Q6HP PRN 07/16/23 07/01/24 History aerosol inhaler Shortness Of Breath aspirin 81 mg tablet,delayed 81 mg PO DAILY 12/04/23 06/30/24 History release cyanocobalamin (vitamin B-12) 1,000 mcg SQ WEEKLY 01/01/24 06/30/24 History 1,000 mcg/mL injection solution alendronate 10 mg tablet 10 mg PO DAILY 90 days #90 tabs 02/05/24 06/30/24 Rx fezolinetant 45 mg tablet ([place]) 45 mg PO DAILY #90 tabs 04/02/24 06/30/24 Rx baclofen 10 mg tablet 10 mg PO QID 06/30/24 06/30/24 History hydrocodone 10 mg-acetaminophen 1 tab PO Q6HP PRN MILD TO MODERATE 06/30/24 06/30/24 History 325 mg tablet PAIN hydroxychloroquine 200 mg tablet 200 mg PO BID 06/30/24 06/30/24 History pregabalin 100 mg capsule 200 mg PO HS 06/30/24 06/30/24 History warfarin 5 mg tablet 2.5 mg PO SUTUTHSA 06/30/24 06/30/24 History cefdinir 300 mg capsule 300 mg PO Q12H 5 days #10 caps 07/01/24 Rx oxycodone 5 mg tablet 10 mg (2 x 5 mg) PO Q6HP PRN 07/01/24 Rx Severe Pain (7-10) 3 days #12 tabs pantoprazole 40 mg tablet,delayed 40 mg PO DAILY #30 tabs 07/01/24 Rx release New Prescriptions to Start Prescriptions: cefdinir Richard Crowley oxycodone Richard Crowley pantoprazole Richard Crowley Allergies Allergy/AdvReac Type Severity Reaction Status Date / Time gum mastic Allergy Unknown Verified 05/28/24 14:09 [From MASTISOL ADHESIVE] measles, mumps, and rubella Allergy Unknown Verified 05/28/24 14:09 vaccine [MEASLES, MUMPS, AND RUBELLA VACCINE] methyl salicylate Allergy Unknown Verified 05/28/24 14:09 [From MASTISOL ADHESIVE] Penicillins [PENICILLINS] Allergy Unknown Verified 05/28/24 14:09 storax Allergy Unknown Verified 05/28/24 14:09 [From MASTISOL ADHESIVE] Sulfa (Sulfonamide Allergy Unknown Verified 05/28/24 14:09 Antibiotics) [SULFA (SULFONAMIDE ANTIBIOTICS)] sumatriptan [From IMITREX] Allergy Unknown Verified 05/28/24 14:09 adhesive AdvReac Mild Rash Verified 05/28/24 14:09 Discharge Plan Disposition Patient Disposition: Home, Self-Care Condition: Good Follow up Plan Follow up with: Valentin Daniel MD [Primary Care Provider] - 07/10/24 8:30 am Prescriptions/Medication Reconciliation: New oxycodone 5 mg Tablet 10 mg PO Q6HP PRN (Reason: Severe Pain (7-10)) 3 Days Qty: 12 0RF pantoprazole 40 mg tablet,delayed release (DR/EC) 40 mg PO DAILY Qty: 30 0RF cefdinir 300 mg capsule 300 mg PO Q12H 5 Days Qty: 10 0RF Continued aspirin 81 mg tablet,delayed release (DR/EC) 81 mg PO DAILY cyanocobalamin (vitamin B-12) 1,000 mcg/mL solution 1,000 mcg SQ WEEKLY Patient Comments: INJECT 1 ML SUBCUTANEOUSLY ONCE A WEEK alendronate 10 mg tablet 10 mg PO DAILY 90 Days Qty: 90 2RF [place] 45 mg tablet 45 mg PO DAILY Qty: 90 3RF albuterol sulfate 90 mcg/actuation HFA aerosol inhaler 1 puff inhalation Q6HP PRN (Reason: Shortness Of Breath) Rx Instructions: INHALE 1 PUFF BY MOUTH EVERY 6 HOURS NEEDED FOR SHORTNESS OF BREATH OR WHEEZING baclofen 10 mg tablet 10 mg PO QID pregabalin 100 mg capsule 200 mg PO HS Patient Comments: 100 mg orally three times a day hydroxychloroquine 200 mg tablet 200 mg PO BID warfarin 5 mg tablet 2.5 mg PO SUTUTHSA warfarin 5 mg tablet 5 mg PO MOWEFR [place] hydrocodone-acetaminophen 10-325 mg tablet 1 tab PO Q6HP PRN (Reason: MILD TO MODERATE PAIN) Hold Instructions: pending normalization of liver function Problem Reconciliation Problems Reviewed?: Yes Patient Discharge Instructions ACTIVITY: Continue current activity DIET: continue same diet Patient Instructions: Acetaminophen Poisoning Print Language: [place] Providers Primary Care Provider: Valentin Daniel Admit Provider: Richard Crowley Attending Provider: Richard Crowley
[2024-07-01 07:41] LABS: Potassium 3.1 mmoL/L (3.5-5.1)
[2024-07-01 07:42] LABS: INR 1.85 (0.9-1.1); Prothrombin Time 19.5 seconds (10.1-12.5)
[2024-07-01 07:43] LABS: Alanine Aminotransferase 102 U/L (12-78); Albumin/Globulin Ratio 1.1 (1.1-1.8); Alkaline Phosphatase 269 U/L (38-126); Anion Gap 8.1 mEq/L (5-15); Aspartate Amino Transferase 50 U/L (14-36); Bilirubin,Total 0.4 mg/dl (0.2-1.3); Blood Urea Nitrogen 10 mg/dl (7-17); Carbon Dioxide 28 mmol/L (22.0-30.0); Chloride 103 mmol/L (98-107); Creatinine Clearance Estimated 143 mL/min (50-200); Estimated Glomerular Filt Rate 105 ml/min (>60); GFR (African American) 127 ML/MIN (>60); Globulin 2.7 g/dL (1.3-3.2); Glucose 89 mg/dl (74-100); Magnesium 1.8 mg/dl (1.6-2.3); Sodium 136 mmol/L (136-145); Total Protein,Serum 5.7 g/dl (6.3-8.2)
[2024-07-01 08:00] VITALS: BP 130/72; PULSE 85; RESP 18; TEMP 36.8; O2SAT 98
[2024-07-01 08:21] LABS: Hemoglobin 12.5 g/dL (12.2-16.2)
[2024-07-01] MEDS: POTASSIUM CHLORIDE 20MEQ TAB 40 MEQ PO (08:37)
[2024-07-01] MEDS: HYDROXYCHLOROQUINE SULFATE 200MG TABLET 200 MG PO (08:38)
[2024-07-01] MEDS: BACLOFEN 10MG TABLET 10 MG PO (08:38)
[2024-07-01] MEDS: ASPIRIN EC 81MG TABLET 81 MG PO (08:38)
[2024-07-01] MEDS: MAGNESIUM SULFATE IN WATER 2 GM/50 ML PIGGYBACK IV (08:38)
[2024-07-01] MEDS: HYDROCORTISONE 1% CREAM 30GM TUBE TP ×2 (08:38→08:40)
--- NOTE | 2024-07-02 15:15 | CARE MANAGER ---
Contacted patient related to hospital discharge. Patient states she does not feel well. She is aware of follow up appointment, but is trying to reach pain management as she wanted to talk to them about her pain medication. I was unable to reach anyone either, but they may be out of the office. I emailed the nurse in pain management to let them know the patient would like to talk to them. RUDDY Martin
== END 2024-07-01 10:30 | disposition home or self-care (01) ==
LOC: ER 13:12 → 2ND 13:37
PROVIDERS: Admitting Provider Internal Medicine Adolescent Medicine; Emergency Provider Emergency Medicine; PCP Family Medicine; Visit Provider Internal Medicine Adolescent Medicine
DX: T39.1X1A Poisoning by 4-Aminophenol derivatives, accidental (unintentional), initial encounter (principal); M32.9 Systemic lupus erythematosus, unspecified; D68.61 Antiphospholipid syndrome; K21.9 Gastro-esophageal reflux disease without esophagitis; Z86.73 Personal history of transient ischemic attack (TIA), and cerebral infarction without residual deficits; J45.909 Unspecified asthma, uncomplicated; E87.1 Hypo-osmolality and hyponatremia; E87.6 Hypokalemia; R74.01 Elevation of levels of liver transaminase levels; N39.0 Urinary tract infection, site not specified; D50.9 Iron deficiency anemia, unspecified; I25.10 Atherosclerotic heart disease of native coronary artery without angina pectoris; I11.0 Hypertensive heart disease with heart failure; I50.9 Heart failure, unspecified; Z79.899 Other long term (current) drug therapy; E66.9 Obesity, unspecified; Z68.32 Body mass index [BMI] 32.0-32.9, adult
CPT/HCPCS: 36415; 74176; 76705; 80053; 80329; 81001; 83735; 85025; 85610; 87086; 99285; G0378; J0696; J1885; J2405; J3475

== ENCOUNTER 2024-07-02 13:52 | Outpatient (CLI) | payer OTHER, SELFPAY ==
--- NOTE | 2024-07-02 13:56 | XR_ITS ---
FINAL REPORT CLINICAL HISTORY: LOWER BACK PAIN COMPARISON: 04/30/2024 FINDINGS: LUMBOSACRAL SPINE SERIES Five views of the lumbosacral spine were obtained. There is no fracture present. There is no malalignment. There are no significant degenerative changes. IMPRESSION: No acute process. Reviewed, Interpreted and Dictated by David Bee MD Transcribed by Ludy Mejias Authenticated and [facility]
== END 2024-07-02 23:59 | disposition home or self-care (01) ==
LOC: RAD 13:53
PROVIDERS: PCP Family Medicine; Visit Provider Family Medicine
DX: M54.50 Low back pain, unspecified (principal)
CPT/HCPCS: 72110

== ENCOUNTER 2024-07-08 07:57 | Outpatient (CLI) | payer OTHER, SELFPAY ==
[2024-07-08 11:07] LABS: PHA INR Fingerstick 2.7 (0.9-1.1)
== END 2024-07-08 11:10 ==
LOC: ACC 07:58
PROVIDERS: PCP Family Medicine; Visit Provider Physician Assistant
DX: Z79.01 Long term (current) use of anticoagulants (principal); G45.9 Transient cerebral ischemic attack, unspecified
CPT/HCPCS: 85610; 99211; G0463

== ENCOUNTER 2024-07-10 10:04 | Outpatient (CLI) | payer OTHER, SELFPAY ==
[2024-07-10 19:12] LABS: Erythrocyte Sedimentation Rate 48 mm/hr (0-30)
[2024-07-10 19:35] LABS: Alanine Aminotransferase 37 U/L (12-78); Alkaline Phosphatase 180 U/L (38-126); Aspartate Amino Transferase 45 U/L (14-36); Bilirubin,Total 0.4 mg/dl (0.2-1.3); Blood Urea Nitrogen 9 mg/dl (7-17); Calcium 8.9 mg/dl (8.4-10.2); Chloride 103 mmol/L (98-107); Estimated Glomerular Filt Rate 129 ml/min (>60); GFR (African American) 156 ML/MIN (>60); Glucose 63 mg/dl (74-100); Sodium 139 mmol/L (136-145); Total Protein,Serum 6.4 g/dl (6.3-8.2)
[2024-07-10 19:38] LABS: Albumin Level 3.6 g/dl (3.5-5.0); Albumin/Globulin Ratio 1.3 (1.1-1.8); Anion Gap 5.5 mEq/L (5-15); Carbon Dioxide 35 mmol/L (22.0-30.0); Globulin 2.8 g/dL (1.3-3.2); Potassium 4.5 mmoL/L (3.5-5.1)
[2024-07-10 19:42] LABS: C-Reactive Protein 4.2 mg/L (0-4)
== END 2024-07-10 23:59 | disposition home or self-care (01) ==
LOC: LAB.DROPOF 07-11 14:59
PROVIDERS: PCP Family Medicine; Visit Provider Family Medicine
DX: M32.9 Systemic lupus erythematosus, unspecified (principal)
CPT/HCPCS: 80053; 85651; 86140

== ENCOUNTER 2024-07-17 08:30 | Outpatient (POV) | payer OTHER, SELFPAY ==
[2024-07-17 08:45] VITALS: BP 113/71; PULSE 80; RESP 16; O2SAT 97; BMI 31.8
--- NOTE | 2024-07-17 08:53 | A.OFFVIS_ITS ---
[facility] Disclaimer: The information contained in this section may have been updated after the patient was seen, as this information can be updated by other users. Medical History Calculus of ureterovesical junction (UVJ) Facial paresthesia Morbid obesity with body mass index (BMI) of 40.0 to 49.9 TIA (transient ischemic attack) Acute CVA (cerebrovascular accident) Left leg DVT Vasomotor symptoms due to menopause Stroke Lupus Asthma History of gastroesophageal reflux (GERD) Hypertension Dizziness Edema History of TIA (transient ischemic attack) History of DVT (deep vein thrombosis) Surgical History H/O gastric bypass History of hysterectomy History of section History of appendectomy History of cholecystectomy Family History Other Coronary artery disease Diabetes Social History Smoking Status: Unknown if ever smoked second hand exposure: No alcohol intake: never substance use type: denies use current occupational status: other Travel in the last 8 weeks: None household members: spouse housing: house caffeine: Yes PM Subjective & Objective Subjective Subjective:: Patient is a pleasant 54-year-old female who presents today for medication refill and follow-up. Today she rates her pain a 4 out of 10. Patient denies any new issues. Patient did recently contact our office between visits due to having to be hospitalized due to acetaminophen toxicity. Patient states that she had only taken 6 tablets of acetaminophen within 2 days however it ended up causing elevated liver enzymes. She states she has recently had updated labs and 1 is still elevated but it is trending downward. Patient does state that she saw a rheumatology yesterday and they are also doing additional labs in general for her lupus. Patient does also state that she is scheduled to see neurology due to frequent falls. Patient did end up meeting with the neurosurgeon who wanted additional x-rays and she is scheduled to follow-up with them at the end of July. Patient is currently managed with oxycodone 5 mg 2 times a day, pregabalin 100 mg 3 times a day and baclofen 10 mg 4 times a day. She does state that since her pain has decreased she is now just doing the pregabalin 200 mg at night and the baclofen about twice a day. She denies any side effects from this medication. Patient did have to be switched from her [place] 10 mg 4 times a day due to the elevated liver enzymes. Her Loi has been reviewed and is appropriate. Review of Systems: General: No recent weight changes, no fever, no sleep disturbances Respiratory: No cough, no shortness of air, no recurring pulmonary infections Cardiovascular/peripheral vascular: No chest pain, no palpitations, no edema, no shortness of breath Gastrointestinal: No new onset incontinence, normal bowel movements reported Genitourinary: No new onset incontinence Musculoskeletal: Low back pain Psychiatric: [Normal mood/affect] Neurological: [Denies weakness in extremities], [denies balance issues] Pain at rest (0-10 scale): 4 Objective Objective:: Physical Exam: General: Alert and oriented x3, no acute distress, pleasant and cooperative Lungs: Respirations even and unlabored, symmetrical chest expansion Eyes: PERRL Musculoskeletal: Flexion and extension of lumbar [spine] somewhat guarded secondary to pain, [antalgic gait noted] Neurological: Speech clear, no gross sensory deficit Has patient had previous pain injection?: No Conservative treatment options previously tried: Home exercise plan Length of treatment: Longer than 12 weeks Meds Home Medications and Allergies Home Medications ?Medication ?Instructions ?Recorded ?Confirmed ?Type warfarin 5 mg tablet 5 mg PO MOWEFR 10/24/22 07/17/24 History albuterol sulfate 90 mcg/actuation 1 puff inhalation Q6HP PRN 07/16/23 07/17/24 History aerosol inhaler Shortness Of Breath aspirin 81 mg tablet,delayed 81 mg PO DAILY 12/04/23 07/17/24 History release cyanocobalamin (vitamin B-12) 1,000 mcg SQ WEEKLY 01/01/24 07/17/24 History 1,000 mcg/mL injection solution alendronate 10 mg tablet 10 mg PO DAILY 90 days #90 tabs 02/05/24 07/17/24 Rx fezolinetant 45 mg tablet (Veozah) 45 mg PO DAILY #90 tabs 04/02/24 07/17/24 Rx baclofen 10 mg tablet 10 mg PO QID 06/30/24 07/17/24 History hydrocodone 10 mg-acetaminophen 1 tab PO Q6HP PRN MILD TO MODERATE 06/30/24 07/17/24 History 325 mg tablet PAIN hydroxychloroquine 200 mg tablet 200 mg PO BID 06/30/24 07/17/24 History pregabalin 100 mg capsule 200 mg PO HS 06/30/24 07/17/24 History warfarin 5 mg tablet 2.5 mg PO SUTUTHSA 06/30/24 07/17/24 History oxycodone 5 mg tablet 10 mg (2 x 5 mg) PO Q6HP PRN 07/01/24 07/17/24 Rx Severe Pain (7-10) 3 days #12 tabs pantoprazole 40 mg tablet,delayed 40 mg PO DAILY #30 tabs 07/01/24 07/17/24 Rx release oxycodone 5 mg tablet 5 mg PO Q6H PRN pain #60 tabs 07/02/24 07/17/24 Rx bupropion HCl 150 mg 24 hr tablet, 150 mg PO DAILY #90 tabs 07/10/24 07/17/24 Rx extended release (Wellbutrin XL) furosemide 20 mg tablet (Lasix) 20 mg PO DAILY #90 tabs 07/10/24 07/17/24 Rx New Prescriptions to Start Prescriptions: Allergies Allergy/AdvReac Type Severity Reaction Status Date / Time gum mastic Allergy Unknown Verified 07/10/24 08:56 [From MASTISOL ADHESIVE] measles, mumps, and rubella Allergy Unknown Verified 07/10/24 08:56 vaccine [MEASLES, MUMPS, AND RUBELLA VACCINE] methyl salicylate Allergy Unknown Verified 07/10/24 08:56 [From MASTISOL ADHESIVE] Penicillins [PENICILLINS] Allergy Unknown Verified 07/10/24 08:56 storax Allergy Unknown Verified 07/10/24 08:56 [From MASTISOL ADHESIVE] Sulfa (Sulfonamide Allergy Unknown Verified 07/10/24 08:56 Antibiotics) [SULFA (SULFONAMIDE ANTIBIOTICS)] sumatriptan [From IMITREX] Allergy Unknown Verified 07/10/24 08:56 adhesive AdvReac Mild Rash Verified 07/10/24 08:56 Assessment and Plan *Assessment and plan (1) Lumbar nerve root impingement: Status: Acute Category: Medical Code(s): M54.16 - Radiculopathy, lumbar region (2) Degenerative disc disease: Status: Chronic Qualifiers: Spinal region: lumbar Qualified Code(s): M51.36 - Other intervertebral disc degeneration, lumbar region Category: Medical Plan I will refill the patient's oxycodone, pregabalin and baclofen and provide a 1 month supply of these medications. Patient will return to clinic in 1 month for reevaluation of symptoms and plan of care. Patient did mention that she has been experiencing worsening headaches due to not being able to take acetaminophen. Patient is also on blood thinners and cannot do NSAIDs. I did discuss with the patient that she could try more conservative options such as peppermint oil to her temples, ice packs or low lighting. Patient acknowledges understanding agrees with plan of care. Risks and benefits of the medication have been explained in detail to the patient. The patient does understand the risk of dependence on the medication when given over a prolonged period. Patient has been advised of risks of oversedation with the prescribed medication. Narcan has been offered to the paitent in the event of oversedation. Patient has been advised that a family member should also be educated regarding administration of Narcan. The patient has been advised to consult with his/her primary care provider and pharmacist regarding drug-drug interaction of medications currently prescribed. Patient has been prescribed a controlled substance after being counseled on the medication, medication safety, and possible side effects. Opioid contract was reviewed and signed by the patient, and that they have agreed to all of the terms set forth by our compliance program. Patient has been instructed to contact the clinic with any concerns before the next appointment. Dr. Venegas has reviewed this note and agrees with this plan of care. This note was dictated using voice recognition software and make contain errors or omissions.
== END 2024-07-17 23:59 | disposition home or self-care (01) ==
PROVIDERS: PCP Family Medicine; Visit Provider Nurse Practitioner Family
DX: M51.16 Intervertebral disc disorders with radiculopathy, lumbar region (principal); Z79.01 Long term (current) use of anticoagulants
CPT/HCPCS: 99212; G0463

== ENCOUNTER 2024-07-18 07:25 | Outpatient (CLI) | payer OTHER, SELFPAY ==
[2024-07-18 08:26] LABS: Iron 70 ug/dL (37-170)
[2024-07-18 08:35] LABS: Total Iron Binding Capacity 363 ug/dL (265-497)
[2024-07-18 09:03] LABS: Ferritin 19.4 ng/ml (11.1-264)
== END 2024-07-18 23:59 | disposition home or self-care (01) ==
LOC: LAB 07:28
PROVIDERS: PCP Family Medicine; Visit Provider Internal Medicine Medical Oncology
DX: D50.9 Iron deficiency anemia, unspecified (principal)
CPT/HCPCS: 36415; 82728; 83540; 83550

== ENCOUNTER 2024-08-08 07:24 | Outpatient (CLI) | payer OTHER, SELFPAY ==
[2024-08-08 08:13] LABS: PHA INR Fingerstick 1.6 (0.9-1.1)
[2024-08-08 10:54] LABS: Alanine Aminotransferase 25 U/L (12-78); Albumin Level 3.7 g/dl (3.5-5.0); Alkaline Phosphatase 79 U/L (38-126); Aspartate Amino Transferase 34 U/L (14-36); Bilirubin,Direct 0.3 mg/dl (0.0-0.4); Bilirubin,Indirect 0.1 mg/dL (0.0-0.9); Bilirubin,Total 0.4 mg/dl (0.2-1.3); Bilirubin,Unconjugated 0.1 mg/dL (0.0-1.1); Total Protein,Serum 6.1 g/dl (6.3-8.2)
== END 2024-08-08 08:16 ==
LOC: ACC 07:25 → LAB 07:27 → ACC 07:33
PROVIDERS: Nurse Practitioner Family; PCP Family Medicine; Visit Provider Family Medicine
DX: G45.9 Transient cerebral ischemic attack, unspecified (principal); Z79.01 Long term (current) use of anticoagulants
CPT/HCPCS: 36415; 80076; 85610; 99211; G0463

== ENCOUNTER 2024-08-11 08:19 | Outpatient (POV) | payer OTHER, SELFPAY ==
--- NOTE | 2024-08-11 08:45 | EXP.PAIN.SOA ---
[facility] Disclaimer: The information contained in this section may have been updated after the patient was seen, as this information can be updated by other users. Medical History Calculus of ureterovesical junction (UVJ) Facial paresthesia Morbid obesity with body mass index (BMI) of 40.0 to 49.9 TIA (transient ischemic attack) Acute CVA (cerebrovascular accident) Left leg DVT Vasomotor symptoms due to menopause Stroke Lupus Asthma History of gastroesophageal reflux (GERD) Hypertension Dizziness Edema History of TIA (transient ischemic attack) History of DVT (deep vein thrombosis) Surgical History H/O gastric bypass History of hysterectomy History of section History of appendectomy History of cholecystectomy Family History Other Coronary artery disease Diabetes Social History Smoking Status: Unknown if ever smoked second hand exposure: No alcohol intake: never substance use type: denies use current occupational status: other Travel in the last 8 weeks: None household members: spouse housing: house caffeine: Yes PM Subjective & Objective Subjective Subjective:: Patient is a pleasant 54-year-old female who presents today for medication refill and follow-up. Today she rates her pain a 7 out of 10. Patient states that she had been doing better but then on Sunday she was at [employer] and went to lift something out of her buggy and felt something move in her back causing severe pain. Patient denies any other changes. Patient does state that the oxycodone just does not work as well as what her prior medication was. Patient is currently on oxycodone 5 mg twice a day, pregabalin 100 mg 3 times a day and baclofen 10 mg 4 times a day. She denies any side effects from this medication. Patient did have to be switched from her [place] 10 mg 4 times a day due to elevated liver enzymes. Her Loi has been reviewed and is appropriate. Review of Systems: General: No recent weight changes, no fever, no sleep disturbances Respiratory: No cough, no shortness of air, no recurring pulmonary infections Cardiovascular/peripheral vascular: No chest pain, no palpitations, no edema, no shortness of breath Gastrointestinal: No new onset incontinence, normal bowel movements reported Genitourinary: No new onset incontinence Musculoskeletal: Low back pain Psychiatric: [Normal mood/affect] Neurological: [Denies weakness in extremities], [denies balance issues] Pain at rest (0-10 scale): 7 Objective Objective:: Physical Exam: General: Alert and oriented x3, no acute distress, pleasant and cooperative Lungs: Respirations even and unlabored, symmetrical chest expansion Eyes: PERRL Musculoskeletal: Flexion and extension of lumbar [spine] somewhat guarded secondary to pain, [antalgic gait noted] Neurological: Speech clear, no gross sensory deficit Has patient had previous pain injection?: No Conservative treatment options previously tried: Home exercise plan Length of treatment: Longer than 6 weeks Meds Home Medications and Allergies Home Medications ?Medication ?Instructions ?Recorded ?Confirmed ?Type warfarin 5 mg tablet 5 mg PO MOWEFR 10/24/22 07/30/24 History albuterol sulfate 90 mcg/actuation 1 puff inhalation Q6HP PRN 07/16/23 07/30/24 History aerosol inhaler Shortness Of Breath aspirin 81 mg tablet,delayed 81 mg PO DAILY 12/04/23 07/30/24 History release cyanocobalamin (vitamin B-12) 1,000 mcg SQ WEEKLY 01/01/24 07/30/24 History 1,000 mcg/mL injection solution alendronate 10 mg tablet 10 mg PO DAILY 90 days #90 tabs 02/05/24 07/30/24 Rx fezolinetant 45 mg tablet (Veozah) 45 mg PO DAILY #90 tabs 04/02/24 07/30/24 Rx hydrocodone 10 mg-acetaminophen 1 tab PO Q6HP PRN MILD TO MODERATE 06/30/24 07/30/24 History 325 mg tablet PAIN hydroxychloroquine 200 mg tablet 200 mg PO BID 06/30/24 07/30/24 History warfarin 5 mg tablet 2.5 mg PO SUTUTHSA 06/30/24 07/30/24 History oxycodone 5 mg tablet 10 mg (2 x 5 mg) PO Q6HP PRN 07/01/24 07/30/24 Rx Severe Pain (7-10) 3 days #12 tabs pantoprazole 40 mg tablet,delayed 40 mg PO DAILY #30 tabs 07/01/24 07/30/24 Rx release furosemide 20 mg tablet (Lasix) 20 mg PO DAILY #90 tabs 07/10/24 07/30/24 Rx baclofen 10 mg tablet 10 mg PO TID #90 tabs 07/17/24 07/30/24 Rx oxycodone 5 mg tablet 5 mg PO BID #60 tabs 07/17/24 07/30/24 Rx pregabalin 100 mg capsule 100 mg PO TID #90 caps 07/17/24 07/30/24 Rx clobetasol 0.05 % topical cream 1 applic topical BID #60 grams 07/30/24 07/30/24 Rx desvenlafaxine succinate 50 mg 50 mg PO DAILY #90 tabs 07/30/24 07/30/24 Rx tablet,extended release 24 hr (Pristiq) New Prescriptions to Start Prescriptions: Allergies Allergy/AdvReac Type Severity Reaction Status Date / Time gum mastic Allergy Unknown Verified 07/30/24 13:18 [From MASTISOL ADHESIVE] measles, mumps, and rubella Allergy Unknown Verified 07/30/24 13:18 vaccine [MEASLES, MUMPS, AND RUBELLA VACCINE] methyl salicylate Allergy Unknown Verified 07/30/24 13:18 [From MASTISOL ADHESIVE] Penicillins [PENICILLINS] Allergy Unknown Verified 07/30/24 13:18 storax Allergy Unknown Verified 07/30/24 13:18 [From MASTISOL ADHESIVE] Sulfa (Sulfonamide Allergy Unknown Verified 07/30/24 13:18 Antibiotics) [SULFA (SULFONAMIDE ANTIBIOTICS)] sumatriptan [From IMITREX] Allergy Unknown Verified 07/30/24 13:18 adhesive AdvReac Mild Rash Verified 07/30/24 13:18 Assessment and Plan *Assessment and plan (1) Lumbar nerve root impingement: Status: Acute Category: Medical Code(s): M54.16 - Radiculopathy, lumbar region (2) Lumbar radiculopathy: Status: Chronic Category: Medical Code(s): M54.16 - Radiculopathy, lumbar region (3) Degenerative disc disease: Status: Chronic Qualifiers: Spinal region: lumbar Qualified Code(s): M51.36 - Other intervertebral disc degeneration, lumbar region Category: Medical Plan I did order the patient updated labs to check her liver enzymes and they are all within normal limits. I did personal counselor the patient that we can switch her back to the [place] 10 mg if she would prefer. Patient states yes she would like this prescription over the oxycodone. Will also send in a refill of pregabalin and baclofen. Patient is scheduled to see her neurosurgeon on September 02. We will follow-up with her after this visit on what the recommendations are for possible surgical intervention. Patient will return to clinic in 1 month for reevaluation of symptoms and plan of care. Patient has been instructed to contact the clinic with any concerns before the next appointment. Dr. Venegas has reviewed this note and agrees with this plan of care. This note was dictated using voice recognition software and make contain errors or omissions. All injections are used with Lidocaine or Bupivacaine and Depo Medrol.
[2024-08-11 09:23] VITALS: BP 130/69; PULSE 65; RESP 16; O2SAT 97; BMI 31.8
== END 2024-08-11 23:59 | disposition home or self-care (01) ==
PROVIDERS: PCP Family Medicine; Visit Provider Nurse Practitioner Family
DX: M51.16 Intervertebral disc disorders with radiculopathy, lumbar region (principal); Z79.01 Long term (current) use of anticoagulants
CPT/HCPCS: 99212; G0463

== ENCOUNTER 2024-08-13 07:40 | Outpatient (CLI) | payer OTHER, SELFPAY ==
[2024-08-13 08:01] LABS: PHA INR Fingerstick 3.4 (0.9-1.1)
== END 2024-08-13 08:03 ==
LOC: ACC 07:40
PROVIDERS: PCP Family Medicine; Visit Provider Family Medicine
DX: G45.9 Transient cerebral ischemic attack, unspecified (principal); Z79.01 Long term (current) use of anticoagulants
CPT/HCPCS: 85610; 99211; G0463

== ENCOUNTER 2024-08-15 15:52 | Outpatient (CLI) | payer OTHER, SELFPAY ==
[2024-08-15 16:18] LABS: PHA INR Fingerstick 1.9 (0.9-1.1)
== END 2024-08-15 16:19 ==
PROVIDERS: PCP Family Medicine; Visit Provider Family Medicine
DX: Z79.01 Long term (current) use of anticoagulants (principal)
CPT/HCPCS: 85610; 99211; G0463

== ENCOUNTER 2024-08-17 15:09 | Emergency (ER) | payer OTHER, SELFPAY ==
[2024-08-17 15:20] VITALS: BP 136/78; PULSE 65; RESP 18; TEMP 36.9; O2SAT 97; BMI 31.8
[2024-08-17 15:26] LABS: Apearance,Urine Clear (Clear); Color,Urine Yellow (Yellow)
[2024-08-17 15:27] LABS: Bilirubin,Urine Negative (Negative); Blood, Urine 3+ (Negative); Glucose,Urine (UA) Negative (Negative); Ketones,Urine TRACE (Negative); PH,Urine 5.5 (5.0-8.5); Protein,Urine 3+ (Negative); UTC Leukocyte Esterase,Urine Negative (Negative); UTC Nitrate,Urine Negative (Negative); Urobilinogen,Urine 1 EU/dl (0.2)
--- NOTE | 2024-08-17 15:42 | ED_ITS ---
Discharge Plan Disposition Patient Disposition: Home, Self-Care Condition: Good Prescriptions Prescriptions: New levofloxacin 500 mg tablet 500 mg PO DAILY 3 Days Qty: 3 0RF No Action aspirin 81 mg tablet,delayed release (DR/EC) 81 mg PO DAILY cyanocobalamin (vitamin B-12) 1,000 mcg/mL solution 1,000 mcg SQ WEEKLY Patient Comments: INJECT 1 ML SUBCUTANEOUSLY ONCE A WEEK clobetasol 0.05 % cream 1 applic topical BID Qty: 60 5RF desvenlafaxine succinate [Pristiq] 50 mg tablet extended release 24 hr 50 mg PO DAILY Qty: 90 3RF alendronate 10 mg tablet 10 mg PO DAILY 90 Days Qty: 90 2RF Veozah 45 mg tablet 45 mg PO DAILY Qty: 90 3RF albuterol sulfate 90 mcg/actuation HFA aerosol inhaler 1 puff inhalation Q6HP PRN (Reason: Shortness Of Breath) Rx Instructions: INHALE 1 PUFF BY MOUTH EVERY 6 HOURS NEEDED FOR SHORTNESS OF BREATH OR WHEEZING hydroxychloroquine 200 mg tablet 200 mg PO BID warfarin 5 mg tablet 2.5 mg PO SUTUTHSA warfarin 5 mg tablet 5 mg PO MOWEFR hydrocodone-acetaminophen 10-325 mg tablet 1 tab PO Q6HP PRN (Reason: MILD TO MODERATE PAIN) Qty: 120 0RF baclofen 10 mg tablet 10 mg PO TID Qty: 90 0RF pregabalin 100 mg capsule 100 mg PO TID Qty: 90 0RF Referrals Follow up/Referrals: Valentin Daniel MD [Primary Care Provider] - See instructions Activity Restrictions/Add. Instructions Additional Instructions/Restrictions: Drink plenty of fluids. Take tylenol or ibuprofen for pain or fever. Take the medications as directed. Follow up with your regular doctor. GO TO THE ER FOR ANY WORSENING SYMPTOMS The pyridium will make your urine turn orange, this is an expected side effect. It will stain your clothes if it comes into contact with them. We will culture the urine. That will tell what bacteria is causing your infection and which antibiotics will treat it best.This test takes 3 days to complete. Clinical Impressions Clinical Impression: UTI (urinary tract infection), Hematuria Instructions Patient Instructions: Urinary Tract Infection, Urine Culture, DI for Urinary Tract Infection (UTI) Print Language Print Language: Urdu Discharge ED Provider: Richard Rhodes [facility] HPI General Stated complaint: possible UTI Mode of Arrival: Ambulatory Source of Information: Patient Time Seen by Provider: 08/17/24 15:42 Description of Symptoms (Recalled from Triage Doc. by RN): UTI S/S BURNING AND FREQUENCY WANTS MEDS TO GO TO [place] HEENT Symptoms (Recalled from RN notes): No Resp Symptoms (Recalled from RN notes): No Skin Symptoms (Recalled from RN notes): No MS Symptoms (Recalled from RN notes): No Functional Status (Recalled from RN notes): WNL History of Present Illness Provider Complaint: She states that for the past 2 days she has had urinary frequency, dysuria, and hematuria. Related Data Home Medications ?Medication ?Instructions ?Recorded ?Confirmed warfarin 5 mg tablet 5 mg PO MOWEFR 10/24/22 08/17/24 albuterol sulfate 90 mcg/actuation 1 puff inhalation Q6HP PRN 07/16/23 08/11/24 aerosol inhaler Shortness Of Breath aspirin 81 mg tablet,delayed 81 mg PO DAILY 12/04/23 08/17/24 release cyanocobalamin (vitamin B-12) 1,000 mcg SQ WEEKLY 01/01/24 08/17/24 1,000 mcg/mL injection solution hydroxychloroquine 200 mg tablet 200 mg PO BID 06/30/24 08/17/24 warfarin 5 mg tablet 2.5 mg PO SUTUTHSA 06/30/24 08/11/24 Previous Rx's ?Medication ?Instructions ?Recorded alendronate 10 mg tablet 10 mg PO DAILY 90 days #90 tabs 02/05/24 fezolinetant 45 mg tablet (Veozah) 45 mg PO DAILY #90 tabs 04/02/24 clobetasol 0.05 % topical cream 1 applic topical BID #60 grams 07/30/24 desvenlafaxine succinate 50 mg 50 mg PO DAILY #90 tabs 07/30/24 tablet,extended release 24 hr (Pristiq) baclofen 10 mg tablet 10 mg PO TID #90 tabs 08/11/24 hydrocodone 10 mg-acetaminophen 1 tab PO Q6HP PRN MILD TO MODERATE 08/11/24 325 mg tablet PAIN #120 tabs pregabalin 100 mg capsule 100 mg PO TID #90 caps 08/11/24 levofloxacin 500 mg tablet 500 mg PO DAILY 3 days #3 tabs 08/17/24 Allergies Allergy/AdvReac Type Severity Reaction Status Date / Time gum mastic Allergy Unknown Verified 07/30/24 13:18 [From MASTISOL ADHESIVE] measles, mumps, and rubella Allergy Unknown Verified 07/30/24 13:18 vaccine [MEASLES, MUMPS, AND RUBELLA VACCINE] methyl salicylate Allergy Unknown Verified 07/30/24 13:18 [From MASTISOL ADHESIVE] Penicillins [PENICILLINS] Allergy Unknown Verified 07/30/24 13:18 storax Allergy Unknown Verified 07/30/24 13:18 [From MASTISOL ADHESIVE] Sulfa (Sulfonamide Allergy Unknown Verified 07/30/24 13:18 Antibiotics) [SULFA (SULFONAMIDE ANTIBIOTICS)] sumatriptan [From IMITREX] Allergy Unknown Verified 07/30/24 13:18 adhesive AdvReac Mild Rash Verified 07/30/24 13:18 Worker's Comp Is this a Worker's Comp case?: No [facility] Disclaimer: The information contained in this section may have been updated after the patient was seen, as this information can be updated by other users. Medical History Calculus of ureterovesical junction (UVJ) Facial paresthesia Morbid obesity with body mass index (BMI) of 40.0 to 49.9 TIA (transient ischemic attack) Acute CVA (cerebrovascular accident) Left leg DVT Vasomotor symptoms due to menopause Stroke Lupus Asthma History of gastroesophageal reflux (GERD) Hypertension Dizziness Edema History of TIA (transient ischemic attack) History of DVT (deep vein thrombosis) Surgical History H/O gastric bypass History of hysterectomy History of section History of appendectomy History of cholecystectomy Family History Other Coronary artery disease Diabetes Social History Smoking Status: Unknown if ever smoked second hand exposure: No alcohol intake: never substance use type: denies use current occupational status: other Travel in the last 8 weeks: None household members: spouse housing: house caffeine: Yes ROS Obtained: Yes All systems reviewed & no additional complaints except as documented Constitutional Constitutional: Reports system reviewed and no additional complaints, except as documented, Denies chills and Denies fever(s) Eyes Eyes: Denies eye discharge ENT Ears, Nose, Mouth, and Throat: Denies dysphagia, Denies sore throat and Denies throat swelling Cardiovascular Cardiovascular: Denies chest pain and Denies dyspnea Respiratory Respiratory: Denies chest congestion, Denies cough and Denies dyspnea Gastrointestinal Gastrointestingal: Denies abdominal pain, constipation, diarrhea, dysphagia, nausea or vomiting Genitourinary Female Genitourinary: Reports as per HPI, Reports dysuria, Reports urinary frequency, Denies urinary incontinence, Reports urinary hesitancy and Reports urinary urgency Musculoskeletal Musculoskeletal: Denies arthralgias and Reports back pain Integumentary/Breasts Skin/Breast: Denies rash Neurologic Neurologic: Denies paresthesias Allergic/Immunologic Allergic/Immunologic: Denies throat swelling Physical Exam General General appearance: alert and in no apparent distress Head Head exam: atraumatic and normocephalic Eye Eye exam: Present normal appearance, PERRL and EOMI ENT ENT exam: Present normal exam, mucous membranes moist, TM's normal bilaterally and normal external ear exam Neck Neck exam: Present normal inspection, full ROM and trachea midline; Absent tenderness, meningismus or lymphadenopathy Chest Chest inspection: Present normal inspection and symmetric chest wall rise; Absent tenderness Respiratory Respiratory exam: Present normal lung sounds bilaterally; Absent respiratory distress, wheezes or stridor Cardiovascular Cardiovascular exam: Present regular rate, normal rhythm and normal heart sounds Abdominal Exam Abdominal exam: Present soft and normal bowel sounds; Absent distention, tenderness, guarding, rebound, rigidity, incision, psoas sign, obturator sign, heel tap sign, Miles's sign, Rovsing's sign or tenderness at McBurney's Point Extremities Exam Extremities exam: Present normal inspection, full ROM and normal capillary refill; Absent tenderness, edema, joint swelling, calf tenderness or cyanosis Back Exam Back exam: Present normal inspection and full ROM; Absent tenderness, CVA tenderness (R) or CVA tenderness (L) Neurological Exam Neurological exam: Present alert, oriented X3 and normal gait Psychiatric Psychiatric exam: Present normal affect and normal mood Skin Skin exam: Present warm, dry, intact and normal color Lymphatic Lymphatic Findings: no adenopathy Medical Decision Making Medical Records Medical records reviewed: No I reviewed the patient's medical records. Screening: Per USPSTF and CDC recommendations, given the prevalence of disease in our region, it is our hospital?s policy to screen for HIV and viral Hepatitis for all patients aged 18 and over and those with ongoing risk factors. Loi Inquiry Pt receiving controlled substance: No Vital Signs: 08/17/24 15:20 Temperature 98.4 F Temperature Source Oral Pulse Rate [Left Radial] 65 Respiratory Rate 18 Blood Pressure [Left Arm] 136/78 Blood Pressure Mean [Left Arm] 97 02 Sat by Pulse Oximetry 97 Lab Data Lab results reviewed: Yes I reviewed the patient's lab results. Lab Results 08/17/24 15:26: Urine Color Yellow, Urine Appearance Clear, Urine pH 5.5, Ur Specific [place] 1.030, Urine Protein 3+, Urine Glucose (UA) Negative, Urine Ketones Trace, Urine Blood 3+, Urine Nitrate Negative, Urine Bilirubin Negative, Urine Urobilinogen 1, Ur Leukocyte Esterase Negative Orders (Tests/Meds): ORDERS Category Date Time Status Urine Culture Stat Micro 08/17/24 15:17 Received
[2024-08-17] MEDS: levoFLOXacin 500MG TAB 500 MG PO (16:19)
[2024-08-17 16:23] VITALS: BP 136/78; PULSE 65; RESP 18; TEMP 36.9
== END 2024-08-17 16:26 | disposition home or self-care (01) ==
PROVIDERS: Emergency Provider Nurse Practitioner Family; PCP Family Medicine
DX: N39.0 Urinary tract infection, site not specified (principal); R31.9 Hematuria, unspecified; R30.0 Dysuria; R35.0 Frequency of micturition
CPT/HCPCS: 81003; 87086; 99212; G0381

== ENCOUNTER 2024-08-19 12:34 | Outpatient (CLI) | payer OTHER, SELFPAY ==
--- NOTE | 2024-08-19 12:35 | MR_ITS ---
PROCEDURE INFORMATION: Exam: MR Head Without and With Contrast Exam date and time: 08/19/2024 1:04 PM Age: 54 years old Clinical indication: Other: Dizziness; Additional info: Evaluate for multiple sclerosis, frequent falls TECHNIQUE: Imaging protocol: Magnetic resonance imaging of the head without and with contrast. Contrast material: PROHANCE; Contrast volume: 17 ml; Contrast route: IV; COMPARISON: No relevant prior studies available. FINDINGS: Brain: Brain parenchyma demonstrates normal signal intensity and enhancement without an intra- or extra-axial mass or abnormality. No mass effect or midline shift. No evidence of restricted diffusion in the supra-or infratentorial brain. Cerebral ventricles: Ventricles and sulci are normal without evidence of hydrocephalus. Bones: Unremarkable. Paranasal sinuses: No significant mucoperiosteal thickening in the visualized paranasal sinuses. Mastoid air cells: No mastoid effusion. Orbital cavities: NA Soft tissues: Midline brain structures including the corpus callosum, pituitary gland, pineal region, and craniovertebral junction are unremarkable. Intracranial vessels demonstrate a normal flow-void. IMPRESSION: 1. Normal study without acute hemorrhagic or ischemic infarct. 2. No evidence of supra-, infratentorial mass or abnormality.
--- NOTE | 2024-08-19 12:35 | MR_ITS ---
PROCEDURE INFORMATION: Exam: MR Cervical Spine Without and With Contrast Exam date and time: 08/19/2024 1:04 PM Age: 54 years old Clinical indication: Other: Dizziness; Additional info: Evaluate for multiple sclerosis, frequent falls TECHNIQUE: Imaging protocol: Magnetic resonance imaging of the cervical spine without and with contrast. Contrast material: PROHANCE; Contrast volume: 17 ml; Contrast route: IV; COMPARISON: CT CERVICAL SPINE WO CON 07/17/2023 2:17 PM FINDINGS: Bones/joints: The vertebral body heights are maintained. There is grade 1 anterolisthesis of C5 on C6. Otherwise alignment is maintained. There is mild multilevel degenerative disc disease. Spinal cord: Normal signal. No cord compression. C2-C3: There is mild diffuse disc bulging without significant spinal canal stenosis. The right neural foramen appears patent. There is mild to moderate left neural foraminal stenosis. C3-C4: There is mild diffuse disc bulging without significant spinal canal or neural foraminal stenosis. C4-C5: There is a moderate-sized central disc protrusion with inferior migration which effaces the anterior thecal sac and causes minimal anterior cord impingement. There is no significant spinal canal stenosis. The neural foramina appear patent. C5-C6: There is a small broad-based central disc protrusion which effaces the anterior thecal sac. There is no significant spinal canal stenosis. The left neural foramen appears patent. There is mild right neural foraminal stenosis secondary to foraminal disc bulging. C6-C7: No significant disc bulge or herniation. No severe spinal canal stenosis. No significant neural foraminal narrowing. C7-T1: No significant disc bulge or herniation. No severe spinal canal stenosis. No significant neural foraminal narrowing. Soft tissues: Unremarkable. Vasculature: Expected flow voids in the vertebral arteries. IMPRESSION: 1. No evidence of demyelinating disease in the cervical cord. 2. Degenerative changes as described. Moderate-sized disc protrusion at C4-C5 which causes minimal anterior cord impingement. Please see above for specific findings at each level.
[2024-08-19] MEDS: GADOTERIDOL INJ 20ML SYRINGE 17 ML IV (14:29)
[2024-08-19] MEDS: SODIUM CHLORIDE 0.9% 10ML SYR (RAD ONLY) 10 ML IV (14:29)
== END 2024-08-19 23:59 | disposition home or self-care (01) ==
LOC: RAD 12:35
PROVIDERS: PCP Family Medicine; Visit Provider Family Medicine
DX: R29.6 Repeated falls (principal)
CPT/HCPCS: 70553; 72156; A9576

== ENCOUNTER 2024-08-27 07:59 | Outpatient (CLI) | payer OTHER, SELFPAY ==
[2024-08-27 12:12] LABS: PHA INR Fingerstick 2.7 (0.9-1.1)
== END 2024-08-27 12:14 ==
LOC: ACC 07:59
PROVIDERS: PCP Family Medicine; Visit Provider Family Medicine
DX: Z79.01 Long term (current) use of anticoagulants (principal)
CPT/HCPCS: 85610; 99211; G0463

== ENCOUNTER 2024-09-15 08:24 | Outpatient (POV) | payer OTHER, SELFPAY ==
--- NOTE | 2024-09-15 09:03 | EXP.PAIN.SOA ---
[facility] Disclaimer: The information contained in this section may have been updated after the patient was seen, as this information can be updated by other users. Medical History Calculus of ureterovesical junction (UVJ) Facial paresthesia Morbid obesity with body mass index (BMI) of 40.0 to 49.9 TIA (transient ischemic attack) Acute CVA (cerebrovascular accident) Left leg DVT Vasomotor symptoms due to menopause Stroke Lupus Asthma History of gastroesophageal reflux (GERD) Hypertension Dizziness Edema History of TIA (transient ischemic attack) History of DVT (deep vein thrombosis) Surgical History H/O gastric bypass History of hysterectomy History of section History of appendectomy History of cholecystectomy Family History Other Coronary artery disease Diabetes Social History Smoking Status: Unknown if ever smoked second hand exposure: No alcohol intake: never substance use type: denies use current occupational status: other household members: spouse housing: house caffeine: Yes PM Subjective & Objective Subjective Subjective:: Patient is a pleasant 54-year-old female who presents today for medication refill and follow-up. She does rate her pain today a 4 out of 10. She denies any new trauma or injury. Patient does state that overall her low back has been much better than what it had been. She does state that she has been still experiencing worsening neck pain with radicular symptoms into her left upper extremity primarily. Patient does state that her primary care did order imaging. Patient states that she frequently drops things in her hands and that she does states she does continually have issues with falling. She states that randomly her legs will give out. Patient was scheduled to see the neurosurgeon last month however states that it got rescheduled to October. Patient is currently managed with [place] 10 mg 4 times a day, pregabalin 100 mg 3 times a day and baclofen 10 mg 4 times a day. She denies any side effects from this. She denies any changes with her liver enzyme labs and states overall it is doing well. 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 Patient is asking whether or not in future if this is something we can go back to to see if it does help additionally in her radicular symptoms. Patient does also make mention that she did get a $600 bill from a urine drug screen. Her Loi has been reviewed and is appropriate. Review of Systems: General: No recent weight changes, no fever, no sleep disturbances Respiratory: No cough, no shortness of air, no recurring pulmonary infections Cardiovascular/peripheral vascular: No chest pain, no palpitations, no edema, no shortness of breath Gastrointestinal: No new onset incontinence, normal bowel movements reported Genitourinary: No new onset incontinence Musculoskeletal: Low back pain, neck pain Psychiatric: [Normal mood/affect] Neurological: [Denies weakness in extremities], [denies balance issues] Pain at rest (0-10 scale): 4 Objective Objective:: Physical Exam: General: Alert and oriented x3, no acute distress, pleasant and cooperative Lungs: Respirations even and unlabored, symmetrical chest expansion Eyes: PERRL Musculoskeletal: Flexion and extension of cervical [spine] somewhat guarded secondary to pain, [antalgic gait noted] Neurological: Speech clear, no gross sensory deficit Has patient had previous pain injection?: No Conservative treatment options previously tried: Home exercise plan Length of treatment: Longer than 12 weeks Meds Home Medications and Allergies Home Medications ?Medication ?Instructions ?Recorded ?Confirmed ?Type warfarin 5 mg tablet 5 mg PO MOWEFR 10/24/22 08/17/24 History albuterol sulfate 90 mcg/actuation 1 puff inhalation Q6HP PRN 07/16/23 08/11/24 History aerosol inhaler Shortness Of Breath aspirin 81 mg tablet,delayed 81 mg PO DAILY 12/04/23 08/17/24 History release cyanocobalamin (vitamin B-12) 1,000 mcg SQ WEEKLY 01/01/24 08/17/24 History 1,000 mcg/mL injection solution alendronate 10 mg tablet 10 mg PO DAILY 90 days #90 tabs 02/05/24 08/11/24 Rx fezolinetant 45 mg tablet (Veozah) 45 mg PO DAILY #90 tabs 04/02/24 08/17/24 Rx hydroxychloroquine 200 mg tablet 200 mg PO BID 06/30/24 08/17/24 History warfarin 5 mg tablet 2.5 mg PO SUTUTHSA 06/30/24 08/11/24 History clobetasol 0.05 % topical cream 1 applic topical BID #60 grams 07/30/24 08/11/24 Rx desvenlafaxine succinate 50 mg 50 mg PO DAILY #90 tabs 07/30/24 08/17/24 Rx tablet,extended release 24 hr (Pristiq) baclofen 10 mg tablet 10 mg PO TID #90 tabs 08/11/24 08/17/24 Rx hydrocodone 10 mg-acetaminophen 1 tab PO Q6HP PRN MILD TO MODERATE 08/11/24 08/17/24 Rx 325 mg tablet PAIN #120 tabs pregabalin 100 mg capsule 100 mg PO TID #90 caps 08/11/24 08/17/24 Rx levofloxacin 500 mg tablet 500 mg PO DAILY 3 days #3 tabs 08/17/24 Rx New Prescriptions to Start Prescriptions: Allergies Allergy/AdvReac Type Severity Reaction Status Date / Time gum mastic (From MASTISOL Allergy Unknown Verified 07/30/24 13:18 ADHESIVE) measles, mumps, and rubella Allergy Unknown Verified 07/30/24 13:18 vaccine (MEASLES, MUMPS, AND RUBELLA VACCINE) methyl salicylate (From Allergy Unknown Verified 07/30/24 13:18 MASTISOL ADHESIVE) Penicillins (PENICILLINS) Allergy Unknown Verified 07/30/24 13:18 storax (From MASTISOL Allergy Unknown Verified 07/30/24 13:18 ADHESIVE) Sulfa (Sulfonamide Allergy Unknown Verified 07/30/24 13:18 Antibiotics) (SULFA (SULFONAMIDE ANTIBIOTICS)) sumatriptan (From IMITREX) Allergy Unknown Verified 07/30/24 13:18 adhesive AdvReac Mild Rash Verified 07/30/24 13:18 Assessment and Plan *Assessment and plan (1) Degenerative disc disease, cervical: Status: Acute Category: Medical Code(s): M50.30 - Other cervical disc degeneration, unspecified cervical region (2) Cervical radiculopathy: Status: Acute Category: Medical Code(s): M54.12 - Radiculopathy, cervical region (3) Degenerative disc disease: Status: Chronic Qualifiers: Spinal region: lumbar Qualified Code(s): M51.36 - Other intervertebral disc degeneration, lumbar region Category: Medical (4) Lumbar radiculopathy: Status: Chronic Category: Medical Code(s): M54.16 - Radiculopathy, lumbar region Plan I will refill the patient's [place], pregabalin and baclofen and provide a 1 month supply of this medication. Patient will return to clinic in 1 month for reevaluation of symptoms and plan of care. I did also discuss with the patient that we will look into the lab bill and she was given the [email or web address] work number for additional questions. Patient was counseled that in future we can try cervical epidurals and that we can always discuss trying a stimulator again in future. We will follow-up with this in future visits. Risks and benefits of the medication have been explained in detail to the patient. The patient does understand the risk of dependence on the medication when given over a prolonged period. Patient has been advised of risks of oversedation with the prescribed medication. Narcan has been offered to the paitent in the event of oversedation. Patient has been advised that a family member should also be educated regarding administration of Narcan. The patient has been advised to consult with his/her primary care provider and pharmacist regarding drug-drug interaction of medications currently prescribed. Patient has been prescribed a controlled substance after being counseled on the medication, medication safety, and possible side effects. Opioid contract was reviewed and signed by the patient, and that they have agreed to all of the terms set forth by our compliance program. Patient has been instructed to contact the clinic with any concerns before the next appointment. Dr. Venegas has reviewed this note and agrees with this plan of care. This note was dictated using voice recognition software and make contain errors or omissions.
[2024-09-15 09:48] VITALS: BP 133/78; PULSE 77; RESP 16; O2SAT 100; BMI 31.8
== END 2024-09-15 23:59 | disposition home or self-care (01) ==
PROVIDERS: PCP Family Medicine; Visit Provider Nurse Practitioner Family
DX: M50.10 Cervical disc disorder with radiculopathy, unspecified cervical region (principal); M51.16 Intervertebral disc disorders with radiculopathy, lumbar region; Z86.73 Personal history of transient ischemic attack (TIA), and cerebral infarction without residual deficits; Z79.01 Long term (current) use of anticoagulants
CPT/HCPCS: 99212; G0463

== ENCOUNTER 2024-09-17 07:51 | Outpatient (CLI) | payer OTHER, SELFPAY ==
[2024-09-17 08:49] LABS: INR 4.82 (0.9-1.1)
[2024-09-17 08:52] LABS: Prothrombin Time 46.2 seconds (10.1-12.5)
[2024-09-17 10:48] LABS: PHA INR Fingerstick 4.6 (0.9-1.1)
== END 2024-09-17 11:29 ==
PROVIDERS: PCP Family Medicine; Visit Provider Family Medicine
DX: Z79.01 Long term (current) use of anticoagulants (principal)
CPT/HCPCS: 36415; 85610; 99211; G0463

== ENCOUNTER 2024-10-02 08:02 | Outpatient (CLI) | payer OTHER, SELFPAY ==
[2024-10-02 11:22] LABS: PHA INR Fingerstick 2.3 (0.9-1.1)
== END 2024-10-02 11:50 ==
LOC: ACC 08:03
PROVIDERS: PCP Family Medicine; Visit Provider Family Medicine
DX: G45.9 Transient cerebral ischemic attack, unspecified (principal); Z79.01 Long term (current) use of anticoagulants
CPT/HCPCS: 85610; 99211; G0463

== ENCOUNTER 2024-10-16 09:27 | Outpatient (POV) | payer OTHER, SELFPAY ==
[2024-10-16 09:45] VITALS: BP 141/82; PULSE 74; RESP 16; O2SAT 96; BMI 31.8
--- NOTE | 2024-10-16 09:52 | EXP.PAIN.SOA ---
[facility] Disclaimer: The information contained in this section may have been updated after the patient was seen, as this information can be updated by other users. Medical History Calculus of ureterovesical junction (UVJ) Facial paresthesia Morbid obesity with body mass index (BMI) of 40.0 to 49.9 TIA (transient ischemic attack) Acute CVA (cerebrovascular accident) Left leg DVT Vasomotor symptoms due to menopause Stroke Lupus Asthma History of gastroesophageal reflux (GERD) Hypertension Dizziness Edema History of TIA (transient ischemic attack) History of DVT (deep vein thrombosis) Surgical History H/O gastric bypass History of hysterectomy History of section History of appendectomy History of cholecystectomy Family History Other Coronary artery disease Diabetes Social History Smoking Status: Unknown if ever smoked second hand exposure: No alcohol intake: never substance use type: denies use current occupational status: other Travel in the last 8 weeks: None household members: spouse housing: house caffeine: Yes PM Subjective & Objective Subjective Subjective:: Patient is a pleasant 54-year-old female who presents today for medication refill and follow-up. Today she rates her pain at 3 out of 10. She denies any new trauma or injury. She does state that overall she has not had any additional flareups of her back pain and is doing well with her medications. Patient does still have her neurosurgery appointment coming up later this month. She is managed with [place] 10 mg 4 times a day, pregabalin 100 mg 3 times a day and baclofen 10 mg 4 times a day. She denies any side effects from this medication. She states she does not need refills on her baclofen and that she has been only taking her pregabalin about 2 times per day. Her Loi has been reviewed and is appropriate. Review of Systems: General: No recent weight changes, no fever, no sleep disturbances Respiratory: No cough, no shortness of air, no recurring pulmonary infections Cardiovascular/peripheral vascular: No chest pain, no palpitations, no edema, no shortness of breath Gastrointestinal: No new onset incontinence, normal bowel movements reported Genitourinary: No new onset incontinence Musculoskeletal: Low back pain Psychiatric: [Normal mood/affect] Neurological: [Denies weakness in extremities], [denies balance issues] Pain at rest (0-10 scale): 3 Objective Objective:: Physical Exam: General: Alert and oriented x3, no acute distress, pleasant and cooperative Lungs: Respirations even and unlabored, symmetrical chest expansion Eyes: PERRL Musculoskeletal: Flexion and extension of lumbar [spine] somewhat guarded secondary to pain, [antalgic gait noted] Neurological: Speech clear, no gross sensory deficit Has patient had previous pain injection?: No Conservative treatment options previously tried: Home exercise plan Length of treatment: Longer than 12 weeks Meds Home Medications and Allergies Home Medications ?Medication ?Instructions ?Recorded ?Confirmed ?Type warfarin 5 mg tablet 5 mg PO MOWEFR 10/24/22 10/16/24 History albuterol sulfate 90 mcg/actuation 1 puff inhalation Q6HP PRN 07/16/23 10/16/24 History aerosol inhaler Shortness Of Breath aspirin 81 mg tablet,delayed 81 mg PO DAILY 12/04/23 10/16/24 History release cyanocobalamin (vitamin B-12) 1,000 mcg SQ WEEKLY 01/01/24 10/16/24 History 1,000 mcg/mL injection solution alendronate 10 mg tablet 10 mg PO DAILY 90 days #90 tabs 02/05/24 10/16/24 Rx fezolinetant 45 mg tablet (Veozah) 45 mg PO DAILY #90 tabs 04/02/24 10/16/24 Rx hydroxychloroquine 200 mg tablet 200 mg PO BID 06/30/24 10/16/24 History warfarin 5 mg tablet 2.5 mg PO SUTUTHSA 06/30/24 10/16/24 History clobetasol 0.05 % topical cream 1 applic topical BID #60 grams 07/30/24 10/16/24 Rx levofloxacin 500 mg tablet 500 mg PO DAILY 3 days #3 tabs 08/17/24 10/16/24 Rx baclofen 10 mg tablet 10 mg PO TID #90 tabs 09/15/24 10/16/24 Rx hydrocodone 10 mg-acetaminophen 1 tab PO Q6HP PRN MILD TO MODERATE 09/15/24 10/16/24 Rx 325 mg tablet PAIN #120 tabs pregabalin 100 mg capsule 100 mg PO TID #90 caps 09/15/24 10/16/24 Rx prochlorperazine maleate 10 mg 10 mg PO Q8H PRN nausea and 09/18/24 10/16/24 Rx tablet (Compazine) vomiting #30 tabs desvenlafaxine succinate 50 mg 50 mg PO DAILY #90 tabs 09/19/24 10/16/24 Rx tablet,extended release 24 hr (Pristiq) gabapentin 400 mg capsule 400 mg PO BID 10/16/24 10/16/24 History ondansetron 4 mg disintegrating 4 mg PO BID PRN nausea and vomiting 10/16/24 10/16/24 History tablet New Prescriptions to Start Prescriptions: Allergies Allergy/AdvReac Type Severity Reaction Status Date / Time gum mastic (From MASTISOL Allergy Unknown Verified 10/16/24 08:56 ADHESIVE) measles, mumps, and rubella Allergy Unknown Verified 10/16/24 08:56 vaccine (MEASLES, MUMPS, AND RUBELLA VACCINE) methyl salicylate (From Allergy Unknown Verified 10/16/24 08:56 MASTISOL ADHESIVE) Penicillins (PENICILLINS) Allergy Unknown Verified 10/16/24 08:56 storax (From MASTISOL Allergy Unknown Verified 10/16/24 08:56 ADHESIVE) Sulfa (Sulfonamide Allergy Unknown Verified 10/16/24 08:56 Antibiotics) (SULFA (SULFONAMIDE ANTIBIOTICS)) sumatriptan (From IMITREX) Allergy Unknown Verified 10/16/24 08:56 adhesive AdvReac Mild Rash Verified 10/16/24 08:56 Assessment and Plan *Assessment and plan (1) Degenerative disc disease, cervical: Status: Acute Category: Medical Code(s): M50.30 - Other cervical disc degeneration, unspecified cervical region (2) Cervical radiculopathy: Status: Acute Category: Medical Code(s): M54.12 - Radiculopathy, cervical region (3) Lumbar nerve root impingement: Status: Acute Category: Medical Code(s): M54.16 - Radiculopathy, lumbar region (4) Back pain: Status: Acute Category: Medical Code(s): M54.9 - Dorsalgia, unspecified Plan We will refill the patient's U[place] and pregabalin and provide a 1 month supply of this medication. I did discuss with her if she is still only using her pregabalin twice a day next month and we will decrease that dosage down. Patient agrees with this plan of care. Patient will return to clinic in 1 month. Risks and benefits of the medication have been explained in detail to the patient. The patient does understand the risk of dependence on the medication when given over a prolonged period. Patient has been advised of risks of oversedation with the prescribed medication. Narcan has been offered to the paitent in the event of oversedation. Patient has been advised that a family member should also be educated regarding administration of Narcan. The patient has been advised to consult with his/her primary care provider and pharmacist regarding drug-drug interaction of medications currently prescribed. Patient has been prescribed a controlled substance after being counseled on the medication, medication safety, and possible side effects. Opioid contract was reviewed and signed by the patient, and that they have agreed to all of the terms set forth by our compliance program. A UDS is needed to verify patient's compliance with our office pain contract. This is ordered based off specific treatments related to chronic pain with the potential to abuse certain medications. Patient has been instructed to contact the clinic with any concerns before the next appointment. Dr. Venegas has reviewed this note and agrees with this plan of care. This note was dictated using voice recognition software and make contain errors or omissions.
== END 2024-10-16 23:59 | disposition home or self-care (01) ==
PROVIDERS: PCP Family Medicine; Visit Provider Nurse Practitioner Family
DX: M50.10 Cervical disc disorder with radiculopathy, unspecified cervical region (principal); M54.16 Radiculopathy, lumbar region; M54.9 Dorsalgia, unspecified
CPT/HCPCS: 99212; G0463

== ENCOUNTER 2024-10-16 17:06 | Outpatient (CLI) | payer OTHER, SELFPAY ==
[2024-10-16 17:24] LABS: Basophils # 0.1 K/mm3 (0-0.2); Basophils % 1.4 % (0.1-2.0); Eosinophils # 0.3 K/mm3 (0.0-0.4); Eosinophils % 3.7 % (0.1-12.0); Hematocrit 40.9 % (37.0-47.0); Hemoglobin 13.3 g/dL (12.2-16.2); Lymphocytes # 3.4 K/mm3 (0.7-4.5); Lymphocytes % 42.2 % (10-50); Mean Corpuscular HGB Conc 32.5 g/dL (31.8-35.4); Mean Corpuscular Hemoglobin 28.1 pg (27.0-31.2); Mean Corpuscular Volume 86.3 fl (81-99); Mean Platelet Volume 10.7 fl (7.4-10.4); Monocytes # 0.5 K/mm3 (0.1-1.0); Monocytes % 5.6 % (1.7-9.3); Neutrophils # 3.8 K/mm3 (1.8-7.8); Platelet Count 370 K/mm3 (142-424); Red Blood Count 4.74 M/mm3 (4.20-5.40)
[2024-10-16 17:53] LABS: Iron 55 ug/dL (37-170)
[2024-10-16 18:05] LABS: Total Iron Binding Capacity 417 ug/dL (265-497)
[2024-10-16 18:30] LABS: Ferritin 8.66 ng/ml (11.1-264)
[2024-10-17 12:41] LABS: Calcium, Ionized 4.8 mg/dL (4.5-5.6)
== END 2024-10-16 23:59 | disposition home or self-care (01) ==
LOC: LAB 17:06
PROVIDERS: PCP Family Medicine; Visit Provider Internal Medicine Medical Oncology
DX: D64.9 Anemia, unspecified (principal); R20.2 Paresthesia of skin
CPT/HCPCS: 82330; 82728; 83540; 83550; 85025

== ENCOUNTER 2024-10-29 07:48 | Outpatient (CLI) | payer OTHER, SELFPAY ==
[2024-10-29 10:08] LABS: PHA INR Fingerstick 2.5 (0.9-1.1)
== END 2024-10-29 10:19 ==
LOC: ACC 07:49
PROVIDERS: PCP Family Medicine; Visit Provider Family Medicine
DX: G45.9 Transient cerebral ischemic attack, unspecified (principal); Z79.01 Long term (current) use of anticoagulants
CPT/HCPCS: 85610; 99211; G0463

== ENCOUNTER 2024-11-12 07:50 | Outpatient (CLI) | payer OTHER, SELFPAY ==
[2024-11-12 09:26] LABS: Iron 32 ug/dL (37-170)
[2024-11-12 09:38] LABS: Total Iron Binding Capacity 391 ug/dL (265-497)
[2024-11-12 09:54] LABS: Basophils # 0.1 K/mm3 (0-0.2); Basophils % 1.5 % (0.1-2.0); Eosinophils # 0.3 K/mm3 (0.0-0.4); Eosinophils % 4.5 % (0.1-12.0); Hematocrit 37.4 % (37.0-47.0); Hemoglobin 12.3 g/dL (12.2-16.2); Lymphocytes # 3.3 K/mm3 (0.7-4.5); Lymphocytes % 44.9 % (10-50); Mean Corpuscular HGB Conc 32.9 g/dL (31.8-35.4); Mean Corpuscular Hemoglobin 28.7 pg (27.0-31.2); Mean Corpuscular Volume 87.2 fl (81-99); Mean Platelet Volume 11.5 fl (7.4-10.4); Monocytes # 0.4 K/mm3 (0.1-1.0); Monocytes % 5.3 % (1.7-9.3); Neutrophils # 3.2 K/mm3 (1.8-7.8); Neutrophils % 43.5 % (37.0-80.0); Platelet Count 321 K/mm3 (142-424); Red Blood Count 4.29 M/mm3 (4.20-5.40); Red Cell Distribution Width 13.7 % (11.5-17.5); White Blood Count 7.3 K/mm3 (4.8-10.8)
[2024-11-12 10:01] LABS: Ferritin 7.61 ng/ml (11.1-264)
== END 2024-11-12 23:59 | disposition home or self-care (01) ==
LOC: LAB 07:51
PROVIDERS: Internal Medicine Medical Oncology; PCP Family Medicine; Visit Provider Surgery
DX: D64.9 Anemia, unspecified (principal); D50.0 Iron deficiency anemia secondary to blood loss (chronic)
CPT/HCPCS: 36415; 82728; 83540; 83550; 85025

== ENCOUNTER 2024-11-17 07:52 | Outpatient (POV) | payer OTHER, SELFPAY ==
[2024-11-17 08:56] LABS: Alanine Aminotransferase 30 U/L (12-78); Albumin Level 3.9 g/dl (3.5-5.0); Albumin/Globulin Ratio 1.6 (1.1-1.8); Alkaline Phosphatase 93 U/L (38-126); Anion Gap 11.8 mEq/L (5-15); Aspartate Amino Transferase 37 U/L (14-36); Blood Urea Nitrogen 9 mg/dl (7-17); Calcium 8.7 mg/dl (8.4-10.2); Carbon Dioxide 31 mmol/L (22.0-30.0); Chloride 102 mmol/L (98-107); Estimated Glomerular Filt Rate 105 ml/min (>60); GFR (African American) 127 ML/MIN (>60); Globulin 2.4 g/dL (1.3-3.2); Glucose 105 mg/dl (74-100); Potassium 3.8 mmoL/L (3.5-5.1); Sodium 141 mmol/L (136-145); Total Protein,Serum 6.3 g/dl (6.3-8.2)
[2024-11-17 08:57] LABS: Bilirubin,Total 0.1 mg/dl (0.2-1.3)
[2024-11-17 09:09] VITALS: BP 147/75; PULSE 61; RESP 14; O2SAT 98; BMI 31.8
[2024-11-17 09:13] LABS: 25-OH Vitamin D, Total 69.1 ng/mL (30-100)
--- NOTE | 2024-11-17 09:18 | EXP.PAIN.SOA ---
[facility] Disclaimer: The information contained in this section may have been updated after the patient was seen, as this information can be updated by other users. Medical History Calculus of ureterovesical junction (UVJ) Facial paresthesia Morbid obesity with body mass index (BMI) of 40.0 to 49.9 TIA (transient ischemic attack) Acute CVA (cerebrovascular accident) Left leg DVT Vasomotor symptoms due to menopause Stroke Lupus Asthma History of gastroesophageal reflux (GERD) Hypertension Dizziness Edema History of TIA (transient ischemic attack) History of DVT (deep vein thrombosis) Surgical History H/O gastric bypass History of hysterectomy History of section History of appendectomy History of cholecystectomy Family History Other Coronary artery disease Diabetes Social History Smoking Status: Unknown if ever smoked second hand exposure: No alcohol intake: never substance use type: denies use current occupational status: other Travel in the last 8 weeks: None household members: spouse housing: house caffeine: Yes PM Subjective & Objective Subjective Subjective:: She states the pain is interfering with her ability perform activities of daily living such as cooking and cleaning. Patient is a pleasant 54-year-old female who presents today for medication refill and follow-up. Today she rates her pain a 7 out of 10. She denies any new trauma or injury. She does state that she is having a lot more leg pain that is constant and even is affecting her sleep. Patient states that it wakes her up. She states that it is a severe achy sensation with tingling into both legs. She does state that prolonged sitting or laying does seem to really aggravate her leg symptoms. She states that when she gets up and walks it does help ease them down some. Patient did previously have a lumbar epidural back in May that did provide 75% relief. Patient is currently managed with Toluca 10 mg 4 times a day, pregabalin 100 mg 3 times a day and baclofen 10 mg 4 times a day. She denies any side effects from this medication. She states that she does not need refills on the baclofen. Her Loi has been reviewed and is appropriate. Review of Systems: General: No recent weight changes, no fever, no sleep disturbances Respiratory: No cough, no shortness of air, no recurring pulmonary infections Cardiovascular/peripheral vascular: No chest pain, no palpitations, no edema, no shortness of breath Gastrointestinal: No new onset incontinence, normal bowel movements reported Genitourinary: No new onset incontinence Musculoskeletal: Chronic low back pain, bilateral leg pain Psychiatric: [Normal mood/affect] Neurological: [Denies weakness in extremities], [denies balance issues] Pain at rest (0-10 scale): 7 Objective Objective:: Physical Exam: General: Alert and oriented x3, no acute distress, pleasant and cooperative Lungs: Respirations even and unlabored, symmetrical chest expansion Eyes: PERRL Musculoskeletal: Flexion and extension of lumbar [spine] somewhat guarded secondary to pain, [antalgic gait noted] positive leg raise Neurological: Speech clear, no gross sensory deficit Has patient had previous pain injection?: No Conservative treatment options previously tried: Home exercise plan Length of treatment: Longer than 12 weeks and Prescription medications Length of treatment: Longer than 12 weeks Meds Home Medications and Allergies Home Medications ?Medication ?Instructions ?Recorded ?Confirmed ?Type warfarin 5 mg tablet 5 mg PO MOWEFR 10/24/22 11/17/24 History cyanocobalamin (vitamin B-12) 1,000 mcg SQ WEEKLY 01/01/24 11/17/24 History 1,000 mcg/mL injection solution alendronate 10 mg tablet 10 mg PO DAILY 90 days #90 tabs 02/05/24 11/17/24 Rx fezolinetant 45 mg tablet ([place]) 45 mg PO DAILY #90 tabs 04/02/24 11/17/24 Rx hydroxychloroquine 200 mg tablet 200 mg PO BID 06/30/24 11/17/24 History warfarin 5 mg tablet 2.5 mg PO SUTUTHSA 06/30/24 11/17/24 History clobetasol 0.05 % topical cream 1 applic topical BID #60 grams 07/30/24 11/17/24 Rx baclofen 10 mg tablet 10 mg PO TID #90 tabs 09/15/24 11/17/24 Rx prochlorperazine maleate 10 mg 10 mg PO Q8H PRN nausea and 09/18/24 11/17/24 Rx tablet (Compazine) vomiting #30 tabs desvenlafaxine succinate 50 mg 50 mg PO DAILY #90 tabs 09/19/24 11/17/24 Rx tablet,extended release 24 hr (Pristiq) hydrocodone 10 mg-acetaminophen 1 tab PO Q6HP PRN MILD TO MODERATE 10/16/24 11/17/24 Rx 325 mg tablet PAIN #120 tabs ondansetron 4 mg disintegrating 4 mg PO BID PRN nausea and vomiting 10/16/24 11/17/24 History tablet pregabalin 100 mg capsule 100 mg PO TID #90 caps 10/16/24 11/17/24 Rx albuterol sulfate 90 mcg/actuation 1 puff inhalation Q6HP PRN 11/10/24 11/17/24 Rx aerosol inhaler Shortness Of Breath #8.5 grams albuterol sulfate 90 mcg/actuation 2 puff inhalation QID PRN 11/10/24 11/17/24 Rx aerosol inhaler shortness of breath or wheezing #8.5 grams aspirin 81 mg tablet,delayed 162 mg PO DAILY 11/10/24 11/17/24 History release azithromycin 500 mg tablet 500 mg PO DAILY 3 days #3 tabs 11/10/24 11/17/24 Rx dapagliflozin propanediol 10 mg 10 mg PO DAILY #90 tabs 11/10/24 11/17/24 Rx tablet (Farxiga) New Prescriptions to Start Prescriptions: Allergies Allergy/AdvReac Type Severity Reaction Status Date / Time gum mastic (From MASTISOL Allergy Unknown Verified 11/10/24 08:26 ADHESIVE) measles, mumps, and rubella Allergy Unknown Verified 11/10/24 08:26 vaccine (MEASLES, MUMPS, AND RUBELLA VACCINE) methyl salicylate (From Allergy Unknown Verified 11/10/24 08:26 MASTISOL ADHESIVE) Penicillins (PENICILLINS) Allergy Unknown Verified 11/10/24 08:26 storax (From MASTISOL Allergy Unknown Verified 11/10/24 08:26 ADHESIVE) Sulfa (Sulfonamide Allergy Unknown Verified 11/10/24 08:26 Antibiotics) (SULFA (SULFONAMIDE ANTIBIOTICS)) sumatriptan (From IMITREX) Allergy Unknown Verified 11/10/24 08:26 adhesive AdvReac Mild Rash Verified 11/10/24 08:26 Assessment and Plan *Assessment and plan (1) Degenerative disc disease: Status: Chronic Qualifiers: Spinal region: lumbar Qualified Code(s): M51.36 - Other intervertebral disc degeneration, lumbar region Category: Medical (2) Lumbar radiculopathy: Status: Chronic Category: Medical Code(s): M54.16 - Radiculopathy, lumbar region Plan Patient is experiencing worsening pain in her low back that does radiate down into her bilateral lower extremities with aching, tingling sensations. Patient did have limited range of motion of her lumbar spine with a positive leg raise. I did discuss with the patient that I do believe she would benefit from a repeat lumbar epidural. Risk and benefits were discussed with patient and she would like to proceed forward with this plan of care. Patient had 1 back in May of L3-L4 that did provide 75% improvement and lasted longer than 3 months. Patient is currently on blood thinner that is written by Dr. Dyer. We will reach out to his office to confirm she can stop this medication prior to this injection. Patient has continued to do conservative treatment including at home stretching exercise for longer than 12 weeks in between injections with no additional changes. I will also refill her Toluca and pregabalin. Patient will be scheduled for a LESI L3-L4 under fluoroscopy. Risks and benefits of the medication have been explained in detail to the patient. The patient does understand the risk of dependence on the medication when given over a prolonged period. Patient has been advised of risks of oversedation with the prescribed medication. Narcan has been offered to the paitent in the event of oversedation. Patient has been advised that a family member should also be educated regarding administration of Narcan. The patient has been advised to consult with his/her primary care provider and pharmacist regarding drug-drug interaction of medications currently prescribed. Patient has been prescribed a controlled substance after being counseled on the medication, medication safety, and possible side effects. Opioid contract was reviewed and signed by the patient, and that they have agreed to all of the terms set forth by our compliance program. A UDS is needed to verify patient's compliance with our office pain contract. This is ordered based off specific treatments related to chronic pain with the potential to abuse certain medications. Patient has been instructed to contact the clinic with any concerns before the next appointment. Dr. Venegas has reviewed this note and agrees with this plan of care. This note was dictated using voice recognition software and make contain errors or omissions.
[2024-11-17 09:46] LABS: Vitamin B12 > 1000 pg/mL (239-931)
[2024-11-17 09:50] LABS: Intact Parathyroid Hormone 70.8 pg/mL (7.5-53.5)
== END 2024-11-17 23:59 | disposition home or self-care (01) ==
PROVIDERS: Surgery; PCP Family Medicine; Visit Provider Nurse Practitioner Family
DX: M51.16 Intervertebral disc disorders with radiculopathy, lumbar region (principal); Z73.89 Other problems related to life management difficulty; Z79.899 Other long term (current) drug therapy; K91.2 Postsurgical malabsorption, not elsewhere classified
CPT/HCPCS: 36415; 80053; 82306; 82607; 83970; 84425; 99212; G0463

== ENCOUNTER 2024-12-09 10:05 | Emergency (ER) | payer OTHER, SELFPAY ==
[2024-12-09] VITALS (7 sets, daily range): BP systolic 113–170; BP diastolic 73–96; PULSE 69–77; RESP 12–17; TEMP 36.4–36.6; O2SAT 96–100; BMI 31.3
--- NOTE | 2024-12-09 10:07 | ECG_ITS ---
APPROVED REPORT Exam: Resting ECG HR:73 bpm ECG Measurements Heart Rate 73 AXES HI 138 P 66 QRSd 88 QRS 82 QT 367 T 51 QTc 393 Conclusion SINUS RHYTHM LOW QRS VOLTAGE IN PRECORDIAL LEADS [QRS DEFLECTION < 1.0 mV IN CHEST LEADS] BORDERLINE ECG No STEMI Electronically signed by : BLANCA SAGASTUME, 12/10/2024 06:32:31
--- NOTE | 2024-12-09 10:24 | HMH.EDGENADL ---
Discharge Plan Disposition Chief Complaint: Chest Pain Prescriptions Prescriptions: New promethazine 12.5 mg tablet 12.5 mg PO TID PRN (Reason: nausea and vomiting) Qty: 12 0RF Rx Instructions: 3 doses during day; last dose no later than 4 hr before bedtime No Action aspirin 81 mg tablet,delayed release (DR/EC) 162 mg PO DAILY cyanocobalamin (vitamin B-12) 1,000 mcg/mL solution 1,000 mcg SQ WEEKLY Patient Comments: INJECT 1 ML SUBCUTANEOUSLY ONCE A WEEK ondansetron 4 mg tablet,disintegrating 4 mg PO BID PRN (Reason: nausea and vomiting) Patient Comments: TAKE 1 TABLET BY MOUTH TWICE A DAY NEEDED clobetasol 0.05 % cream 1 applic topical BID Qty: 60 5RF dapagliflozin propanediol [Farxiga] 10 mg tablet 10 mg PO DAILY Qty: 90 3RF azithromycin 500 mg tablet 500 mg PO DAILY 3 Days Qty: 3 0RF albuterol sulfate 90 mcg/actuation HFA aerosol inhaler 1 puff inhalation Q6HP PRN (Reason: Shortness Of Breath) Qty: 8.5 10RF Rx Instructions: INHALE 1 PUFF BY MOUTH EVERY 6 HOURS NEEDED FOR SHORTNESS OF BREATH OR WHEEZING Veozah 45 mg tablet 45 mg PO DAILY Qty: 90 3RF prochlorperazine maleate [Compazine] 10 mg tablet 10 mg PO Q8H PRN (Reason: nausea and vomiting) Qty: 30 0RF desvenlafaxine succinate [Pristiq] 50 mg tablet extended release 24 hr 50 mg PO DAILY Qty: 90 3RF albuterol sulfate 90 mcg/actuation HFA aerosol inhaler 2 puff inhalation QID PRN (Reason: shortness of breath or wheezing) Qty: 8.5 10RF alendronate 10 mg tablet 10 mg PO DAILY 90 Days Qty: 90 2RF hydroxychloroquine 200 mg tablet 200 mg PO BID warfarin 5 mg tablet 2.5 mg PO SUTUTHSA warfarin 5 mg tablet 5 mg PO MOWEFR baclofen 10 mg tablet 10 mg PO TID Qty: 90 0RF hydrocodone-acetaminophen 10-325 mg tablet 1 tab PO Q6HP PRN (Reason: MILD TO MODERATE PAIN) Qty: 120 0RF pregabalin 100 mg capsule 100 mg PO TID Qty: 90 0RF Referrals Follow up/Referrals: Neus,Valentin, MD [Primary Care Provider] - See instructions Activity Restrictions/Add. Instructions Additional Instructions/Restrictions: Follow-up with your primary care physician if symptoms do not improve. You are being prescribed Phenergan to take at home for nausea and vomiting. Take this as prescribed. Phenergan will make you drowsy, so avoid driving or operating heavy machinery or swimming if taking. If you develop any new or worsening symptoms, or if you become concerned for your health for any reason, return to the emergency department for evaluation Clinical Impressions Clinical Impression: Nausea & vomiting, Thyroid nodule, Shortness of breath Print Language Print Language: Nigerian Discharge ED Provider: Farrukh Delgado Adult HPI General Chief complaint: Chest Pain Stated complaint: CP Time Seen by Provider: 12/09/24 10:24 Mode of Arrival: Ambulatory Source of Information: Patient Limitations: No Limitations Description of Symptoms (Recalled from ER Triage Doc. by RN): pt states she started having L sided chest pain about an hour [employer]. pt reports the pain has since radiated to her mid chest as well. pt states the pain is 4/10 and feels like pressure. pt reports SOA but states she is getting over a viral infection and that her SOA and cough have improved. History of Present Illness HPI narrative: Kassi Claudio is a 54F with a past medical history of lupus, DVT, antiphospholipid syndrome, TIA, asthma, hypertension, cholecystectomy, appendectomy, total abdominal hysterectomy and oophorectomies who presents to the emergency department for complaints of nausea and vomiting as well as shortness of breath. Patient states that she is recovering from what she thought was a viral illness that has been present for about a week with associated cough. Starting yesterday, she had worsening cough and shortness of breath and then began to have 3 episodes of none bloody vomiting today. She reports taking Zofran prior to arrival and that seemed to help some, however her nausea has returned. She denies any abdominal pain or fever. She denies any diarrhea or dysuria. She denies any chest pain but does report some shortness of breath worsened with exertion. She notes that she is on warfarin for her antiphospholipid syndrome. Related Data Home Medications ?Medication ?Instructions ?Recorded ?Confirmed warfarin 5 mg tablet 5 mg PO MOWEFR 10/24/22 12/09/24 cyanocobalamin (vitamin B-12) 1,000 mcg SQ WEEKLY 01/01/24 12/09/24 1,000 mcg/mL injection solution hydroxychloroquine 200 mg tablet 200 mg PO BID 06/30/24 12/09/24 warfarin 5 mg tablet 2.5 mg PO SUTUTHSA 06/30/24 12/09/24 ondansetron 4 mg disintegrating 4 mg PO BID PRN nausea and vomiting 10/16/24 12/09/24 tablet aspirin 81 mg tablet,delayed 162 mg PO DAILY 11/10/24 12/09/24 release Previous Rx's ?Medication ?Instructions ?Recorded fezolinetant 45 mg tablet (Veozah) 45 mg PO DAILY #90 tabs 04/02/24 clobetasol 0.05 % topical cream 1 applic topical BID #60 grams 07/30/24 baclofen 10 mg tablet 10 mg PO TID #90 tabs 09/15/24 prochlorperazine maleate 10 mg 10 mg PO Q8H PRN nausea and 09/18/24 tablet (Compazine) vomiting #30 tabs desvenlafaxine succinate 50 mg 50 mg PO DAILY #90 tabs 09/19/24 tablet,extended release 24 hr (Pristiq) albuterol sulfate 90 mcg/actuation 1 puff inhalation Q6HP PRN 11/10/24 aerosol inhaler Shortness Of Breath #8.5 grams albuterol sulfate 90 mcg/actuation 2 puff inhalation QID PRN 11/10/24 aerosol inhaler shortness of breath or wheezing #8.5 grams azithromycin 500 mg tablet 500 mg PO DAILY 3 days #3 tabs 11/10/24 dapagliflozin propanediol 10 mg 10 mg PO DAILY #90 tabs 11/10/24 tablet (Farxiga) hydrocodone 10 mg-acetaminophen 1 tab PO Q6HP PRN MILD TO MODERATE 11/17/24 325 mg tablet PAIN #120 tabs pregabalin 100 mg capsule 100 mg PO TID #90 caps 11/17/24 alendronate 10 mg tablet 10 mg PO DAILY 90 days #90 tabs 11/26/24 promethazine 12.5 mg tablet 12.5 mg PO TID PRN nausea and 12/09/24 vomiting #12 tabs Allergies Allergy/AdvReac Type Severity Reaction Status Date / Time gum mastic (From MASTISOL Allergy Unknown Unknown Verified 12/09/24 10:19 ADHESIVE) allergy reaction measles, mumps, and rubella Allergy Unknown Unknown Verified 12/09/24 10:19 vaccine (MEASLES, MUMPS, AND allergy RUBELLA VACCINE) reaction methyl salicylate (From Allergy Unknown Unknown Verified 12/09/24 10:19 MASTISOL ADHESIVE) allergy reaction Penicillins (PENICILLINS) Allergy Unknown Hives Verified 12/09/24 10:19 storax (From MASTISOL Allergy Unknown Unknown Verified 12/09/24 10:19 ADHESIVE) allergy reaction Sulfa (Sulfonamide Allergy Unknown Hives Verified 12/09/24 10:19 Antibiotics) (SULFA (SULFONAMIDE ANTIBIOTICS)) sumatriptan (From IMITREX) Allergy Unknown Anaphylaxis Verified 12/09/24 10:19 adhesive AdvReac Mild Rash Verified 11/10/24 08:26 [facility] Disclaimer: The information contained in this section may have been updated after the patient was seen, as this information can be updated by other users. Medical History Calculus of ureterovesical junction (UVJ) Facial paresthesia Morbid obesity with body mass index (BMI) of 40.0 to 49.9 TIA (transient ischemic attack) Acute CVA (cerebrovascular accident) Left leg DVT Vasomotor symptoms due to menopause Stroke Lupus Asthma History of gastroesophageal reflux (GERD) Hypertension Dizziness Edema History of TIA (transient ischemic attack) History of DVT (deep vein thrombosis) Surgical History H/O gastric bypass History of hysterectomy History of section History of appendectomy History of cholecystectomy Family History Other Coronary artery disease Diabetes Social History Smoking Status: Never smoker second hand exposure: No alcohol intake: never substance use type: denies use current occupational status: other Travel in the last 8 weeks: None household members: spouse housing: house caffeine: Yes Have you lived/traveled outside [place] in past 30 days?: No Contact w/someone who lives/traveled outside US past 30 days?: No Exposure to someone with infectious disease in past 14 days?: No Do you have a fever (greater than 100.4 F or 38 C)?: No Have you tested positive for COVID-19: No Exposed to someone with COVID-19 in past 14 days?: No Do you have a sore throat?: No Do you have a cough?: No Do you have any weakness?: No Do you have any diarrhea?: No Are you experiencing any unusual bleeding?: No Do you have any muscle aches/pain?: No Do you have any abdominal pain?: No Are you experiencing loss of taste or smell?: No Other Medical History Have you received the Flu Vaccine for this season: Yes Have you received the Pneumonia Vaccine: Yes ROS Obtained: Yes Systems reviewed as appropriate & no additional complaints except as documented Physical Exam General General appearance: alert and in no apparent distress Head Head exam: atraumatic Eye Eye exam: Present normal appearance ENT ENT exam: Present normal external ear exam Neck Neck exam: Present full ROM Chest Chest inspection: Present symmetric chest wall rise Respiratory Respiratory exam: Present normal lung sounds bilaterally; Absent respiratory distress Cardiovascular Cardiovascular exam: Present regular rate and normal rhythm Abdominal Exam Abdominal exam: Present soft; Absent tenderness or guarding Extremities Exam Extremities exam: Present normal inspection Back Exam Back exam: Present normal inspection Neurological Exam Neurological exam: Present alert and oriented X3 Psychiatric Psychiatric exam: Present normal affect Skin Skin exam: Present warm and dry Medical Decision Making Medical Records Screening: Per USPSTF and CDC recommendations, given the prevalence of disease in our region, it is our hospital?s policy to screen for HIV and viral Hepatitis for all patients aged 18 and over and those with ongoing risk factors. Loi Inquiry Pt receiving controlled substance: No Vital Signs: 12/09/24 10:14 12/09/24 10:23 12/09/24 10:30 Temperature 97.6 F Temperature Source Oral Pulse Rate 73 74 Pulse Rate [Left] 76 Respiratory Rate 17 14 17 Blood Pressure 140/83 117/89 Blood Pressure [Right Arm] 170/96 H Blood Pressure Mean Blood Pressure Mean [Right Arm] 120 Blood Pressure Source [Right Arm] Automatic Cuff Blood Pressure Position [Right Arm] Sitting 02 Sat by Pulse Oximetry 100 96 98 Oxygen Delivery Method Room Air Room Air Room Air 12/09/24 11:30 12/09/24 12:00 12/09/24 12:30 Temperature Temperature Source Pulse Rate 69 77 75 Pulse Rate [Left] Respiratory Rate 14 17 16 Blood Pressure 135/78 123/73 113/83 Blood Pressure [Right Arm] Blood Pressure Mean 91 Blood Pressure Mean [Right Arm] Blood Pressure Source [Right Arm] Blood Pressure Position [Right Arm] 02 Sat by Pulse Oximetry 100 96 100 Oxygen Delivery Method Room Air Room Air Room Air Lab Data Lab Results 12/09/24 10:15: WBC 7.8, RBC 5.09, Hgb 14.3, Hct 44.4, MCV 87.2, MCH 28.1, MCHC 32.2, RDW 13.6, Plt Count 436 H, MPV 10.6 H, Neut % (Auto) 53.8, Lymph % (Auto) 33.1, [place] % (Auto) 6.9, Eos % (Auto) 4.3, Baso % (Auto) 1.8, Neut # (Auto) 4.2, Lymph # (Auto) 2.6, [place] # (Auto) 0.5, Eos # (Auto) 0.3, Baso # (Auto) 0.1, PT 26.0 H, INR 2.59 H, Sodium 142, Potassium 3.5, Chloride 103, Carbon Dioxide 32 H, Anion Gap 10.5, BUN 11, Creatinine 0.70, Estimated Creat Clear 118, Estimated GFR 88, Est GFR ( Amer) 106, Glucose 52 L, Calcium 9.2, Total Bilirubin 0.3, AST 66 H, ALT 62, Alkaline Phosphatase 108, Troponin I < 0.01, NT-Pro-B Natriuret Pep 49.5, Total Protein 7.9 D, Albumin 4.5, Globulin 3.4 H, Albumin/Globulin Ratio 1.3, Lipase 96, HCV Ab JUVENCIO w/Rflx PCR Qn Negative, HIV Ag/Ab Combo Qual Negative 12/09/24 10:15 12/09/24 10:15 Orders (Tests/Meds): ED MEDICATIONS Discontinued Medications Generic Name Dose Route Start Last Admin Trade Name Freq PRN Reason Stop Dose Admin Lactated Ringer's 1,000 mls @ 999 mls/hr 12/09/24 10:31 12/09/24 10:50 Lactated Ringer's 1000 Ml Bag IV 12/09/24 11:31 999 mls/hr .Q1H1M ONE Administration Iopamidol 70 ml 12/09/24 10:54 12/09/24 10:55 Iopamidol-370 (76%);100ml Bottle IV 12/09/24 10:55 70 ml ONCE ONE Administration Promethazine HCl 25 mg 12/09/24 10:31 12/09/24 10:50 Promethazine Hcl 25mg/Ml 1ml Vial IV 12/09/24 10:32 25 mg ONCE ONE Administration Sodium Chloride 25 ml 12/09/24 10:31 12/09/24 10:50 Sodium Chloride 0.9% 25ml Bag IV 12/09/24 10:32 25 ml ONCE ONE Administration Sodium Chloride 50 ml 12/09/24 10:54 12/09/24 10:55 0.9 % Sodium Chloride 50 Ml Vial IV 12/09/24 10:55 50 ml ONCE ONE Administration Sodium Chloride 10 ml 12/09/24 10:54 12/09/24 10:55 Sodium Chloride 0.9% 10ml Syr (Rad Only) IV 12/09/24 10:55 10 ml ONCE ONE Administration ORDERS Category Date Time Status CT angio chest PE protocol Stat Cat Scan 12/09/24 10:31 Completed BNP [NT Pro Brain Natriuretic Pep.] Stat Lab 12/09/24 10:15 Completed CBC w/Auto Diff [Complete Blood Count Auto Diff] Stat Lab 12/09/24 10:15 Completed CMP [Comprehensive Metabolic Panel] Stat Lab 12/09/24 10:15 Completed HIV Combo Stat Lab 12/09/24 10:15 Completed Hepatitis C Ab Qual. W/ RFX Stat Lab 12/09/24 10:15 Completed Lipase Stat Lab 12/09/24 10:15 Completed PT INR [Prothrombin Time INR] Stat Lab 12/09/24 10:15 Completed Troponin I Q3H Lab 12/09/24 13:45 Ordered Troponin I Q3H Lab 12/09/24 16:45 Ordered Troponin I Stat Lab 12/09/24 10:15 Completed ECG Data Tracing #1: I reviewed this ECG and interpreted as documented below: Normal sinus rhythm. No ST elevation or depression. No T wave inversions. QTc normal at 393, ID interval normal at 138 Medical Decision Narrative: Kassi Claudio is a 54F with a past medical history of lupus, DVT, antiphospholipid syndrome, TIA, asthma, hypertension, cholecystectomy, appendectomy, total abdominal hysterectomy and oophorectomies who presents to the emergency department for complaints of nausea and vomiting as well as shortness of breath. Patient states that she is recovering from what she thought was a viral illness that has been present for about a week with associated cough. Starting yesterday, she had worsening cough and shortness of breath and then began to have 3 episodes of none bloody vomiting today. She reports taking Zofran prior to arrival and that seemed to help some, however her nausea has returned. She denies any abdominal pain or fever. She denies any diarrhea or dysuria. She denies any chest pain but does report some shortness of breath worsened with exertion. She notes that she is on warfarin for her antiphospholipid syndrome. On arrival, patient is initially hypertensive but has improved without intervention. Heart rate within normal limits, breathing comfortably on room air with appropriate oxygen saturation. Physical exam, as stated above, revealed an ill but nontoxic appearing female in no acute respiratory distress. She is holding an emesis bag but is not actively vomiting or dry heaving. Abdomen is soft, nontender nondistended. Cardiopulmonary exam without murmurs, wheezing rales or rhonchi. Mucous membranes are slightly dry. Differential diagnosis includes, but is not limited to: Viral gastritis, pulmonary embolism, ACS, pneumonia, peptic ulcer disease, acute pancreatitis, electrolyte derangement, dehydration, among others. Patient's workup in the emergency department included: CT PE, CMP, CBC, troponin, BNP, lipase. Will give 25 mg of Phenergan for nausea and vomiting IV and 1L of LR. Patient's labs and imaging interpreted by me personally. No leukocytosis, no anemia, INR elevated 2.59 but seems to be at therapeutic levels with patient is on Coumadin. CMP without electrolyte derangement except for mildly low glucose of 52. Patient amenable to eating and drinking at this time. Mildly elevated AST of 66 but otherwise liver enzymes unremarkable nonactionable. Initial troponin of 0.01, BNP normal at 49.5. Lipase normal at 96. CT imaging interpreted by me personally. No pulmonary embolism. No pneumonias. There is an incidental left thyroid mass of 10 mm and is recommended that she have outpatient thyroid ultrasound follow-up. Patient did not have any recurrence of her vomiting here in the emergency department. There is no acute pathology found on her workup today. She was encouraged to follow-up with her primary care physician for the incidental left thyroid nodule. She is being sent home with a prescription for Phenergan and was instructed to avoid taking Zofran while taking this and to avoid driving cars or heavy machinery or swimming due to it causing significant drowsiness. Return precautions were given. All questions were answered. She was then discharged from the emergency department in stable condition and was amenable to this plan Critical Care Critical Care Time Critical Care Time: No
--- NOTE | 2024-12-09 10:31 | CT_ITS ---
FINAL REPORT TECHNIQUE: Thin section axial CT with contrast with multiplanar reconstruction This study was performed with techniques to keep radiation doses as low as reasonably achievable, (ALARA). Individualized dose reduction techniques using automated exposure control or adjustment of mA and/or kV according to the patient's size were employed. CLINICAL HISTORY: Chest pain, shortness of breath COMPARISON: None FINDINGS: Pulmonary vessels enhance in normal fashion without evidence of embolism. Thoracic aorta shows no dissection or aneurysm. No pulmonary mass or infiltrate is present. There is no significant pleural effusion. There is no significant pericardial effusion. No mediastinal or hilar adenopathy is present. There is a left thyroid mass, measuring 10 mm in size. Postoperative changes of a gastric bypass are present as well. IMPRESSION: No evidence of pulmonary embolism, thoracic aortic aneurysm or thoracic aortic dissection. Incidental left thyroid mass 10 mm in size, recommend outpatient thyroid ultrasound follow-up for further evaluation. Reviewed, Interpreted and Dictated by Mina Wright MD Transcribed by Kelly Masters Authenticated and [facility]
[2024-12-09 10:38] LABS: Basophils # 0.1 K/mm3 (0-0.2); Basophils % 1.8 % (0.1-2.0); Eosinophils # 0.3 K/mm3 (0.0-0.4); Eosinophils % 4.3 % (0.1-12.0); Hematocrit 44.4 % (37.0-47.0); Hemoglobin 14.3 g/dL (12.2-16.2); Lymphocytes # 2.6 K/mm3 (0.7-4.5); Lymphocytes % 33.1 % (10-50); Mean Corpuscular HGB Conc 32.2 g/dL (31.8-35.4); Mean Corpuscular Hemoglobin 28.1 pg (27.0-31.2); Mean Corpuscular Volume 87.2 fl (81-99); Mean Platelet Volume 10.6 fl (7.4-10.4); Monocytes # 0.5 K/mm3 (0.1-1.0); Monocytes % 6.9 % (1.7-9.3); Neutrophils # 4.2 K/mm3 (1.8-7.8); Neutrophils % 53.8 % (37.0-80.0); Platelet Count 436 K/mm3 (142-424); Red Blood Count 5.09 M/mm3 (4.20-5.40); Red Cell Distribution Width 13.6 % (11.5-17.5); White Blood Count 7.8 K/mm3 (4.8-10.8)
[2024-12-09 10:42] LABS: Albumin Level 4.5 g/dl (3.5-5.0); Chloride 103 mmol/L (98-107); Sodium 142 mmol/L (136-145)
[2024-12-09 10:43] LABS: Potassium 3.5 mmoL/L (3.5-5.1)
[2024-12-09 10:44] LABS: INR 2.59 (0.9-1.1)
[2024-12-09 10:45] LABS: Alanine Aminotransferase 62 U/L (12-78); Albumin/Globulin Ratio 1.3 (1.1-1.8); Alkaline Phosphatase 108 U/L (38-126); Anion Gap 10.5 mEq/L (5-15); Aspartate Amino Transferase 66 U/L (14-36); Bilirubin,Total 0.3 mg/dl (0.2-1.3); Blood Urea Nitrogen 11 mg/dl (7-17); Carbon Dioxide 32 mmol/L (22.0-30.0); Creatinine Clearance Estimated 118 mL/min (50-200); Estimated Glomerular Filt Rate 88 ml/min (>60); GFR (African American) 106 ML/MIN (>60); Globulin 3.4 g/dL (1.3-3.2); Lipase 96 U/L (23-300); Total Protein,Serum 7.9 g/dl (6.3-8.2)
[2024-12-09 10:46] LABS: Calcium 9.2 mg/dl (8.4-10.2); Glucose 52 mg/dl (74-100)
[2024-12-09] MEDS: PROMETHAZINE HCL 25MG/ML 1ML VIAL 25 MG IV (10:50)
[2024-12-09] MEDS: LACTATED RINGERS 1000ML 1,000 ML 999 ML IV (10:50)
[2024-12-09] MEDS: SODIUM CHLORIDE 0.9% 25ML BAG 25 ML IV (10:50)
[2024-12-09 10:55] LABS: NT Pro Brain Natriuretic Pep. 49.5 pg/mL (0-125)
[2024-12-09] MEDS: IOPAMIDOL-370 (76%);100ML BOTTLE 70 ML IV (10:55)
[2024-12-09] MEDS: 0.9 % SODIUM CHLORIDE 50 ML VIAL IV (10:55)
[2024-12-09] MEDS: SODIUM CHLORIDE 0.9% 10ML SYR (RAD ONLY) 10 ML IV (10:55)
[2024-12-09 10:59] LABS: Troponin I < 0.01 ng/ml (0.00-0.034)
--- NOTE | 2024-12-09 11:10 | PC.NURSE ---
I rounded on the pt. I brought her a grain bar, bag of chips and pepsi. I also took the pts a snack and drink. I told her that her BSFS was 52. pt has no new complaints. no needs voiced. call cao in reach.
[2024-12-09 11:27] LABS: HIV Combo NEGATIVE (Negative)
[2024-12-09 11:35] LABS: Hepatitis C Ab Qual. W/ RFX NEGATIVE (Negative)
--- NOTE | 2024-12-09 11:42 | PC.NURSE ---
repeat blood glucose was 146; aware.
--- NOTE | 2024-12-09 12:35 | PC.NURSE ---
MD at BS for update on POC; spouse at BS
--- NOTE | 2024-12-09 13:49 | HMH.PHAINT1 ---
Pharmacy Intervention Comments: 12/09/24--PATIENT SEEN IN ER TODAY WITH CP. INR WAS 2.59 IN ER. CALLED PATIENT AND RESCHEDULED HER ACC FOLLOW UP FOR 6 WEEKS OUT. CONTINUE WITH WARFAIRN 2.5 MG ON SUN/SUN/SUN; 5 MG ON SUN/SUN/SUN/SUN.
== END 2024-12-09 12:48 | disposition home or self-care (01) ==
PROVIDERS: Emergency Provider Student in an Organized Health Care Education/Training Program; PCP Family Medicine
DX: R07.9 Chest pain, unspecified (principal); R06.02 Shortness of breath; R05.9 Cough, unspecified; R11.2 Nausea with vomiting, unspecified; E04.1 Nontoxic single thyroid nodule; Z79.01 Long term (current) use of anticoagulants
CPT/HCPCS: 71275; 80053; 83690; 83880; 84484; 85025; 85610; 86803; 87389; 93005; 96361; 96374; 99285; J2550; J7120; Q9967

== ENCOUNTER 2024-12-15 08:08 | Outpatient (POV) | payer OTHER, SELFPAY ==
[2024-12-15 08:39] VITALS: BP 123/64; PULSE 72; RESP 18; O2SAT 100; BMI 31.3
--- NOTE | 2024-12-15 09:09 | A.OFFVIS_ITS ---
[facility] Disclaimer: The information contained in this section may have been updated after the patient was seen, as this information can be updated by other users. Medical History Calculus of ureterovesical junction (UVJ) Facial paresthesia Morbid obesity with body mass index (BMI) of 40.0 to 49.9 TIA (transient ischemic attack) Acute CVA (cerebrovascular accident) Left leg DVT Vasomotor symptoms due to menopause Stroke Lupus Asthma History of gastroesophageal reflux (GERD) Hypertension Dizziness Edema History of TIA (transient ischemic attack) History of DVT (deep vein thrombosis) Surgical History H/O gastric bypass History of hysterectomy History of section History of appendectomy History of cholecystectomy Family History Other Coronary artery disease Diabetes Social History Smoking Status: Never smoker second hand exposure: No alcohol intake: never substance use type: denies use current occupational status: employed Travel in the last 8 weeks: None household members: spouse housing: house caffeine: Yes PM Subjective & Objective Subjective Subjective:: Patient is a pleasant 54-year-old female who presents today for medication refill. Today she rates her pain a 6 out of 10. Patient denies any new falls or injuries however does states that overall her pain is just more bothersome with pain from her low back radiating down her legs. Patient was at her last visit trying to get scheduled for an epidural of L3-L4 however her insurance is still pending on this injection. Patient states that she feels like the cold weather is definitely aggravating her symptoms. She states the pain has just been much worse over the last couple of months and does affect her ability perform activities of daily living such as cooking and cleaning. Patient does have numbness into her lower extremities. Patient is currently managed with [facility] 10 mg 4 times a day, pregabalin 100 mg 3 times a day and baclofen 10 mg 4 times a day. She denies any side effects. Her Loi has been reviewed and is appropriate. Review of Systems: General: No recent weight changes, no fever, no sleep disturbances Respiratory: No cough, no shortness of air, no recurring pulmonary infections Cardiovascular/peripheral vascular: No chest pain, no palpitations, no edema, no shortness of breath Gastrointestinal: No new onset incontinence, normal bowel movements reported Genitourinary: No new onset incontinence Musculoskeletal: Low back pain, leg pain Psychiatric: [Normal mood/affect] Neurological: [Denies weakness in extremities], [denies balance issues] Pain at rest (0-10 scale): 6 Objective Objective:: Physical Exam: General: Alert and oriented x3, no acute distress, pleasant and cooperative Lungs: Respirations even and unlabored, symmetrical chest expansion Eyes: PERRL Musculoskeletal: Flexion and extension of lumbar [spine] somewhat guarded secondary to pain, [antalgic gait noted] positive leg raise Neurological: Speech clear, no gross sensory deficit Has patient had previous pain injection?: No Conservative treatment options previously tried: Home exercise plan Length of treatment: Longer than 12 weeks Meds Home Medications and Allergies Home Medications ?Medication ?Instructions ?Recorded ?Confirmed ?Type warfarin 5 mg tablet 5 mg PO MOWEFR 10/24/22 12/15/24 History cyanocobalamin (vitamin B-12) 1,000 mcg SQ WEEKLY 01/01/24 12/15/24 History 1,000 mcg/mL injection solution fezolinetant 45 mg tablet ([place]) 45 mg PO DAILY #90 tabs 04/02/24 12/15/24 Rx hydroxychloroquine 200 mg tablet 200 mg PO BID 06/30/24 12/15/24 History warfarin 5 mg tablet 2.5 mg PO SUTUTHSA 06/30/24 12/15/24 History clobetasol 0.05 % topical cream 1 applic topical BID #60 grams 07/30/24 12/15/24 Rx baclofen 10 mg tablet 10 mg PO TID #90 tabs 09/15/24 12/15/24 Rx prochlorperazine maleate 10 mg 10 mg PO Q8H PRN nausea and 09/18/24 12/15/24 Rx tablet (Compazine) vomiting #30 tabs desvenlafaxine succinate 50 mg 50 mg PO DAILY #90 tabs 09/19/24 12/15/24 Rx tablet,extended release 24 hr (Pristiq) ondansetron 4 mg disintegrating 4 mg PO BID PRN nausea and vomiting 10/16/24 12/15/24 History tablet albuterol sulfate 90 mcg/actuation 1 puff inhalation Q6HP PRN 11/10/24 12/15/24 Rx aerosol inhaler Shortness Of Breath #8.5 grams albuterol sulfate 90 mcg/actuation 2 puff inhalation QID PRN 11/10/24 12/15/24 Rx aerosol inhaler shortness of breath or wheezing #8.5 grams aspirin 81 mg tablet,delayed 162 mg PO DAILY 11/10/24 12/15/24 History release azithromycin 500 mg tablet 500 mg PO DAILY 3 days #3 tabs 11/10/24 12/15/24 Rx dapagliflozin propanediol 10 mg 10 mg PO DAILY #90 tabs 11/10/24 12/15/24 Rx tablet (Farxiga) hydrocodone 10 mg-acetaminophen 1 tab PO Q6HP PRN MILD TO MODERATE 11/17/24 12/15/24 Rx 325 mg tablet PAIN #120 tabs pregabalin 100 mg capsule 100 mg PO TID #90 caps 11/17/24 12/15/24 Rx alendronate 10 mg tablet 10 mg PO DAILY 90 days #90 tabs 11/26/24 12/15/24 Rx promethazine 12.5 mg tablet 12.5 mg PO TID PRN nausea and 12/09/24 12/15/24 Rx vomiting #12 tabs New Prescriptions to Start Prescriptions: Allergies Allergy/AdvReac Type Severity Reaction Status Date / Time gum mastic (From MASTISOL Allergy Unknown Unknown Verified 12/09/24 10:19 ADHESIVE) allergy reaction measles, mumps, and rubella Allergy Unknown Unknown Verified 12/09/24 10:19 vaccine (MEASLES, MUMPS, AND allergy RUBELLA VACCINE) reaction methyl salicylate (From Allergy Unknown Unknown Verified 12/09/24 10:19 MASTISOL ADHESIVE) allergy reaction Penicillins (PENICILLINS) Allergy Unknown Hives Verified 12/09/24 10:19 storax (From MASTISOL Allergy Unknown Unknown Verified 12/09/24 10:19 ADHESIVE) allergy reaction Sulfa (Sulfonamide Allergy Unknown Hives Verified 12/09/24 10:19 Antibiotics) (SULFA (SULFONAMIDE ANTIBIOTICS)) sumatriptan (From IMITREX) Allergy Unknown Anaphylaxis Verified 12/09/24 10:19 adhesive AdvReac Mild Rash Verified 11/10/24 08:26 Assessment and Plan *Assessment and plan (1) Lumbar nerve root impingement: Status: Acute Category: Medical Code(s): M54.16 - Radiculopathy, lumbar region (2) Lumbar radiculopathy: Status: Chronic Category: Medical Code(s): M54.16 - Radiculopathy, lumbar region (3) Degenerative disc disease: Status: Chronic Qualifiers: Spinal region: lumbar Qualified Code(s): M51.36 - Other intervertebral disc degeneration, lumbar region Category: Medical Plan I will refill her [facility], pregabalin and provide a 1 month supply of this medication. Patient will return to clinic in 1 month. We will contact her once we hear more on the epidural approval. Patient did have her last lumbar epidural in May of L3-L4 that did provide 75% improvement and did last over 3 months. Patient has been seen by neurosurgery and was recommended to do conservative treatment such as the injections. Patient did have improved function with overall decreased pain following that epidural injection. We will make sure that we resubmit to insurance if there is an issue. Patient has tried and failed conservative therapy including oral medications, heat and ice, topicals, at home stretching exercise for longer than 12 weeks in between injections. Patient has been consistently on her medication for longer than a year and is maintaining however will have worsening symptoms from time to time. Patient will be scheduled for an LESI L3-L4 under fluoroscopy. Risks and benefits of the medication have been explained in detail to the patient. The patient does understand the risk of dependence on the medication when given over a prolonged period. Patient has been advised of risks of oversedation with the prescribed medication. Narcan has been offered to the paitent in the event of oversedation. Patient has been advised that a family member should also be educated regarding administration of Narcan. The patient has been advised to consult with his/her primary care provider and pharmacist regarding drug-drug interaction of medications currently prescribed. Patient has been prescribed a controlled substance after being counseled on the medication, medication safety, and possible side effects. Opioid contract was reviewed and signed by the patient, and that they have agreed to all of the terms set forth by our compliance program. A UDS is needed to verify patient's compliance with our office pain contract. This is ordered based off specific treatments related to chronic pain with the potential to abuse certain medications. Patient has been instructed to contact the clinic with any concerns before the next appointment. Dr. Venegas has reviewed this note and agrees with this plan of care. This note was dictated using voice recognition software and make contain errors or omissions.
== END 2024-12-15 23:59 | disposition home or self-care (01) ==
PROVIDERS: PCP Family Medicine; Visit Provider Nurse Practitioner Family
DX: M51.16 Intervertebral disc disorders with radiculopathy, lumbar region (principal); Z73.89 Other problems related to life management difficulty; Z79.899 Other long term (current) drug therapy
CPT/HCPCS: 99212; G0463

== ENCOUNTER 2024-12-19 09:47 | Emergency (ER) | payer OTHER, SELFPAY ==
[2024-12-19 09:54] VITALS: PULSE 74; O2SAT 98
[2024-12-19 09:58] VITALS: BP 163/106; PULSE 74; RESP 18; TEMP 36.6; O2SAT 98; BMI 31.5
[2024-12-19 10:00] VITALS: BP 177/103; PULSE 70; O2SAT 100
--- NOTE | 2024-12-19 10:08 | PC.NURSE ---
er at bedside
--- NOTE | 2024-12-19 10:12 | CT_ITS ---
FINAL REPORT TECHNIQUE: Thin section axial CT with sagittal reconstruction without contrast This study was performed with techniques to keep radiation doses as low as reasonably achievable, (ALARA). Individualized dose reduction techniques using automated exposure control or adjustment of mA and/or kV according to the patient's size were employed. CLINICAL HISTORY: fall, pain COMPARISON: 07/17/2023 FINDINGS: CT CERVICAL SPINE: No fracture is seen. Alignment is normal. No obvious bony spinal canal stenosis is present. Degenerative changes are noted in the mid and lower cervical spine. IMPRESSION: No fracture or malalignment Reviewed, Interpreted and Dictated by Mina Wright MD Transcribed by Kelly Masters Authenticated and [facility]
--- NOTE | 2024-12-19 10:12 | CT_ITS ---
FINAL REPORT TECHNIQUE: Noncontrast exam This study was performed with techniques to keep radiation doses as low as reasonably achievable, (ALARA). Individualized dose reduction techniques using automated exposure control or adjustment of mA and/or kV according to the patient's size were employed. CLINICAL HISTORY: fall, BT hit head COMPARISON: CTA head 03/26/2024 FINDINGS: CT HEAD: No abnormal density is seen. Ventricles are normal. There is no hemorrhage. No mass effect is seen. Bone windows show no evidence of fracture. IMPRESSION: No acute findings Reviewed, Interpreted and Dictated by Mina Wright MD Transcribed by Kelly Masters Authenticated and [facility]
--- NOTE | 2024-12-19 10:12 | CT_ITS ---
FINAL REPORT CLINICAL HISTORY: fall, pain COMPARISON: None FINDINGS: CT THORACIC SPINE TECHNIQUE: Thin section axial CT with sagittal and coronal reconstructions This study was performed with techniques to keep radiation doses as low as reasonably achievable, (ALARA). Individualized dose reduction techniques using automated exposure control or adjustment of mA and/or kV according to the patient's size were employed. FINDINGS: No fracture is present. Alignment is normal. No bony canal stenosis is seen. Mild diffuse degenerative disc disease is noted. IMPRESSION: Negative CT evaluation of the thoracic spine for acute bony injury. Reviewed, Interpreted and Dictated by Mina Wright MD Transcribed by Kelly Masters Authenticated and [facility]
--- NOTE | 2024-12-19 10:12 | XR_ITS ---
FINAL REPORT CLINICAL HISTORY: fall, pain COMPARISON: None FINDINGS: Three views of the left foot show a transverse fracture of the base of the 5th metatarsal with minimal displacement. There are mild scattered degenerative changes. There is no evidence of dislocation or subluxation. IMPRESSION: 5th metatarsal base fracture. Reviewed, Interpreted and Dictated by Mina Wright MD Transcribed by Aruna Bazzi Authenticated and [facility]
--- NOTE | 2024-12-19 10:12 | XR_ITS ---
FINAL REPORT CLINICAL HISTORY: fall, pain COMPARISON: None FINDINGS: Three views of the left ankle show no evidence of acute displaced fracture or dislocation of the visualized bony architecture. The joint spaces appear normal. IMPRESSION: Unremarkable exam. Reviewed, Interpreted and Dictated by Mina Wright MD Transcribed by Aruna Bazzi Authenticated and [facility]
--- NOTE | 2024-12-19 10:12 | CT_ITS ---
FINAL REPORT CLINICAL HISTORY: fall, pain COMPARISON: 05/02/2023 FINDINGS: CT LUMBAR SPINE TECHNIQUE: Thin section axial CT with sagittal and coronal reconstructions This study was performed with techniques to keep radiation doses as low as reasonably achievable, (ALARA). Individualized dose reduction techniques using automated exposure control or adjustment of mA and/or kV according to the patient's size were employed. FINDINGS: No fracture is present. Alignment is normal. No bony canal stenosis is seen. Mild diffuse degenerative changes are identified. IMPRESSION: Negative CT evaluation of the lumbar spine for acute bony injury. This study was performed using automated techniques to achieve radiation exposure as low as reasonably achievable Reviewed, Interpreted and Dictated by Mina Wright MD Transcribed by Kelly Masters Authenticated and [facility]
--- NOTE | 2024-12-19 10:14 | ED_ITS ---
Discharge Plan Disposition Patient Disposition: Home, Self-Care Condition: Good Prescriptions Prescriptions: No Action aspirin 81 mg tablet,delayed release (DR/EC) 162 mg PO DAILY cyanocobalamin (vitamin B-12) 1,000 mcg/mL solution 1,000 mcg SQ WEEKLY Patient Comments: INJECT 1 ML SUBCUTANEOUSLY ONCE A WEEK ondansetron 4 mg tablet,disintegrating 4 mg PO BID PRN (Reason: nausea and vomiting) Patient Comments: TAKE 1 TABLET BY MOUTH TWICE A DAY NEEDED clobetasol 0.05 % cream 1 applic topical BID Qty: 60 5RF dapagliflozin propanediol [Farxiga] 10 mg tablet 10 mg PO DAILY Qty: 90 3RF azithromycin 500 mg tablet 500 mg PO DAILY 3 Days Qty: 3 0RF albuterol sulfate 90 mcg/actuation HFA aerosol inhaler 1 puff inhalation Q6HP PRN (Reason: Shortness Of Breath) Qty: 8.5 10RF Rx Instructions: INHALE 1 PUFF BY MOUTH EVERY 6 HOURS NEEDED FOR SHORTNESS OF BREATH OR WHEEZING Veozah 45 mg tablet 45 mg PO DAILY Qty: 90 3RF prochlorperazine maleate [Compazine] 10 mg tablet 10 mg PO Q8H PRN (Reason: nausea and vomiting) Qty: 30 0RF desvenlafaxine succinate [Pristiq] 50 mg tablet extended release 24 hr 50 mg PO DAILY Qty: 90 3RF albuterol sulfate 90 mcg/actuation HFA aerosol inhaler 2 puff inhalation QID PRN (Reason: shortness of breath or wheezing) Qty: 8.5 10RF alendronate 10 mg tablet 10 mg PO DAILY 90 Days Qty: 90 2RF hydroxychloroquine 200 mg tablet 200 mg PO BID warfarin 5 mg tablet 2.5 mg PO SUTUTHSA warfarin 5 mg tablet 5 mg PO MOWEFR baclofen 10 mg tablet 10 mg PO TID Qty: 90 0RF hydrocodone-acetaminophen 10-325 mg tablet 1 tab PO Q6HP PRN (Reason: MILD TO MODERATE PAIN) Qty: 120 0RF pregabalin 100 mg capsule 100 mg PO TID Qty: 90 0RF promethazine 12.5 mg tablet 12.5 mg PO TID PRN (Reason: nausea and vomiting) Qty: 12 0RF Rx Instructions: 3 doses during day; last dose no later than 4 hr before bedtime Referrals Follow up/Referrals: Valentin Daniel MD [Primary Care Provider] - See instructions Raina Coreas DPM [Staff Physician] - See instructions Activity Restrictions/Add. Instructions Additional Instructions/Restrictions: Wear orthopedic shoe when ambulating. Follow-up with podiatry. Return to the emergency department for new or worsening symptoms. Clinical Impressions Clinical Impression: Metatarsal fracture Print Language Print Language: Croatian Discharge ED Provider: Emilia Underwood General Adult HPI General Chief complaint: Fall Stated complaint: AO-12/20-1700hrs- fall, pain and swelling L foot Time Seen by Provider: 12/19/24 10:07 Mode of Arrival: Ambulatory Source of Information: Patient Description of Symptoms (Recalled from ER Triage Doc. by RN): pt presents to the er for a fall that occurred last night, states she has drop foot from a stroke she had 2 years ago, she didn't have her brace on, states sometimes she has to pick her foot up and last night she got tripped up on her foot falling down 4 steps, didn't hit her head, denies loc, states she fell backwards anbd landed on her back, reports pain in top of l foot radiaiting down pinky toe rating it 7/10 when she applies pressure to her foot, states it is sharp and shooting, with no movement or weight on foot pain is tolerable, took prescribed loratab prior to arrival with no relief in pain History of Present Illness HPI narrative: Patient is a 54-year-old past medical history for antiphospholipid syndrome on Coumadin and aspirin presents to the emergency department with foot pain and back pain after a fall. Patient has a history of prior CVA secondary to her hypercoagulable state and has residual deficits of left foot drop. She believes her left foot missed the step when she was walking upstairs and fell down 4 stairs landing on her back. This happened yesterday however today she noted worsening pain of her left foot. Patient has chronic back pain and did not think much of her back pain. Pain is 4 out of 10 without improvement of home dose of Lortab. Patient did not lose consciousness after fall Related Data Home Medications ?Medication ?Instructions ?Recorded ?Confirmed warfarin 5 mg tablet 5 mg PO MOWEFR 10/24/22 12/19/24 cyanocobalamin (vitamin B-12) 1,000 mcg SQ WEEKLY 01/01/24 12/19/24 1,000 mcg/mL injection solution hydroxychloroquine 200 mg tablet 200 mg PO BID 06/30/24 12/19/24 warfarin 5 mg tablet 2.5 mg PO SUTUTHSA 06/30/24 12/19/24 ondansetron 4 mg disintegrating 4 mg PO BID PRN nausea and vomiting 10/16/24 12/19/24 tablet aspirin 81 mg tablet,delayed 162 mg PO DAILY 11/10/24 12/19/24 release Previous Rx's ?Medication ?Instructions ?Recorded fezolinetant 45 mg tablet (Veozah) 45 mg PO DAILY #90 tabs 04/02/24 clobetasol 0.05 % topical cream 1 applic topical BID #60 grams 07/30/24 baclofen 10 mg tablet 10 mg PO TID #90 tabs 09/15/24 prochlorperazine maleate 10 mg 10 mg PO Q8H PRN nausea and 09/18/24 tablet (Compazine) vomiting #30 tabs desvenlafaxine succinate 50 mg 50 mg PO DAILY #90 tabs 09/19/24 tablet,extended release 24 hr (Pristiq) albuterol sulfate 90 mcg/actuation 1 puff inhalation Q6HP PRN 11/10/24 aerosol inhaler Shortness Of Breath #8.5 grams albuterol sulfate 90 mcg/actuation 2 puff inhalation QID PRN 11/10/24 aerosol inhaler shortness of breath or wheezing #8.5 grams azithromycin 500 mg tablet 500 mg PO DAILY 3 days #3 tabs 11/10/24 dapagliflozin propanediol 10 mg 10 mg PO DAILY #90 tabs 11/10/24 tablet (Farxiga) alendronate 10 mg tablet 10 mg PO DAILY 90 days #90 tabs 11/26/24 promethazine 12.5 mg tablet 12.5 mg PO TID PRN nausea and 12/09/24 vomiting #12 tabs hydrocodone 10 mg-acetaminophen 1 tab PO Q6HP PRN MILD TO MODERATE 12/15/24 325 mg tablet PAIN #120 tabs pregabalin 100 mg capsule 100 mg PO TID #90 caps 12/15/24 Allergies Allergy/AdvReac Type Severity Reaction Status Date / Time gum mastic (From MASTISOL Allergy Unknown Unknown Verified 12/09/24 10:19 ADHESIVE) allergy reaction measles, mumps, and rubella Allergy Unknown Unknown Verified 12/09/24 10:19 vaccine (MEASLES, MUMPS, AND allergy RUBELLA VACCINE) reaction methyl salicylate (From Allergy Unknown Unknown Verified 12/09/24 10:19 MASTISOL ADHESIVE) allergy reaction Penicillins (PENICILLINS) Allergy Unknown Hives Verified 12/09/24 10:19 storax (From MASTISOL Allergy Unknown Unknown Verified 12/09/24 10:19 ADHESIVE) allergy reaction Sulfa (Sulfonamide Allergy Unknown Hives Verified 12/09/24 10:19 Antibiotics) (SULFA (SULFONAMIDE ANTIBIOTICS)) sumatriptan (From IMITREX) Allergy Unknown Anaphylaxis Verified 12/09/24 10:19 sulfamethoxazole (From Allergy Unknown Verified 12/19/24 10:06 Bactrim) allergy reaction trimethoprim (From Bactrim) Allergy Unknown Verified 12/19/24 10:06 allergy reaction adhesive AdvReac Mild Rash Verified 11/10/24 08:26 [facility] Disclaimer: The information contained in this section may have been updated after the patient was seen, as this information can be updated by other users. Medical History Calculus of ureterovesical junction (UVJ) Facial paresthesia Morbid obesity with body mass index (BMI) of 40.0 to 49.9 TIA (transient ischemic attack) Acute CVA (cerebrovascular accident) Left leg DVT Vasomotor symptoms due to menopause Stroke Lupus Asthma History of gastroesophageal reflux (GERD) Hypertension Dizziness Edema History of TIA (transient ischemic attack) History of DVT (deep vein thrombosis) Surgical History H/O gastric bypass History of hysterectomy History of section History of appendectomy History of cholecystectomy Family History Other Coronary artery disease Diabetes Social History Smoking Status: Never smoker second hand exposure: No alcohol intake: never substance use type: denies use current occupational status: employed Travel in the last 8 weeks: None household members: spouse housing: house caffeine: Yes Have you lived/traveled outside US in past 30 days?: No Contact w/someone who lives/traveled outside US past 30 days?: No Exposure to someone with infectious disease in past 14 days?: No Do you have a fever (greater than 100.4 F or 38 C)?: No Have you tested positive for COVID-19: No Exposed to someone with COVID-19 in past 14 days?: No Do you have a sore throat?: No Do you have a cough?: No Do you have any weakness?: No Do you have any diarrhea?: No Are you experiencing any unusual bleeding?: No Do you have any muscle aches/pain?: No Do you have any abdominal pain?: No Are you experiencing loss of taste or smell?: No Other Medical History Have you received the Flu Vaccine for this season: Yes Have you received the Pneumonia Vaccine: Yes ROS Obtained: Yes All systems reviewed & no additional complaints except as documented Physical Exam General General appearance: alert and in no apparent distress Head Head exam: atraumatic and normocephalic Eye Eye exam: Present PERRL and EOMI ENT ENT exam: Present normal exam and normal oropharynx Neck Neck exam: Present normal inspection; Absent tenderness Chest Chest inspection: Present normal inspection; Absent tenderness Respiratory Respiratory exam: Absent respiratory distress Cardiovascular Cardiovascular exam: Present regular rate and normal rhythm Abdominal Exam Abdominal exam: Present soft; Absent distention or tenderness Extremities Exam Extremities exam: Present tenderness (Base of fifth left metatarsal) and normal capillary refill Back Exam Back exam: Present tenderness (T and L-spine midline tenderness) Neurological Exam Neurological exam: Present alert and other (Left foot drop, intact sensation distal to left foot injury) Medical Decision Making Medical Records Screening: Per USPSTF and CDC recommendations, given the prevalence of disease in our region, it is our hospital?s policy to screen for HIV and viral Hepatitis for all patients aged 18 and over and those with ongoing risk factors. Loi Inquiry Pt receiving controlled substance: No Vital Signs: 12/19/24 09:54 12/19/24 09:58 12/19/24 10:00 Temperature 97.9 F Temperature Source Oral Pulse Rate 74 70 Pulse Rate [Left Radial] 74 Respiratory Rate 18 Blood Pressure 177/103 H Blood Pressure [Right Arm] 163/106 H Blood Pressure Mean Blood Pressure Mean [Right Arm] 125 Blood Pressure Source Blood Pressure Source [Right Arm] Automatic Cuff Blood Pressure Position Blood Pressure Position [Right Arm] Sitting 02 Sat by Pulse Oximetry 98 98 100 Oxygen Delivery Method Room Air 12/19/24 11:00 12/19/24 11:30 12/19/24 11:41 Temperature 97.8 F Temperature Source Oral Pulse Rate 64 69 70 Pulse Rate [Left Radial] Respiratory Rate 18 18 18 Blood Pressure 181/96 H 170/102 H 167/85 H Blood Pressure [Right Arm] Blood Pressure Mean 124 124 Blood Pressure Mean [Right Arm] Blood Pressure Source Automatic Cuff Blood Pressure Source [Right Arm] Blood Pressure Position Sitting Blood Pressure Position [Right Arm] 02 Sat by Pulse Oximetry 96 98 Oxygen Delivery Method Room Air Orders (Tests/Meds): ED MEDICATIONS Discontinued Medications Generic Name Dose Route Start Last Admin Trade Name Freq PRN Reason Stop Dose Admin Morphine Sulfate 4 mg 12/19/24 10:12 12/19/24 10:16 Morphine 2mg/Ml Syringe IM 12/19/24 10:13 4 mg ONCE ONE Administration Morphine Sulfate 4 mg 12/19/24 10:30 12/19/24 10:19 Morphine 4mg/Ml Syringe IM 12/19/24 10:31 Not Given ONCE ONE ORDERS Category Date Time Status CT cervical spine wo con Stat Cat Scan 12/19/24 10:[address] head/brain wo con Stat Cat Scan 12/19/24 10:[address] lumbar spine wo con Stat Cat Scan 12/19/24 10:[address] thoracic spine wo con Stat Cat Scan 12/19/24 10:12 Completed XR ankle LT min 3V Stat Exams 12/19/24 10:12 Completed XR foot LT min 3V Stat Exams 12/19/24 10:12 Completed Medical Decision Narrative: In summary, this is a 54-year-old female presents to the emergency department today with back and foot pain after a fall. On initial evaluation patient is hemodynamically stable saturating properly on room air afebrile no acute. Differential diagnosis includes but is not limited to compression fracture, ligamentous or tendon injury, extremity fracture intracranial hemorrhage. Based on these concerns, I ordered CT head and CT L-spine left ankle and left foot radiographs. Patient received IM morphine for treatment. XR personally interpreted demonstrates fracture of the base of fifth metatarsal. Patient placed in a orthopedic shoe and instructed WBAT with outpt follow up with podiatry. CT imaging personally interpreted demonstrate no intracranial hemorrhage and no acute spine fracture On repeat evaluation patient ambulatory with orthopedic shoe with improvement of symptoms. Critical Care Critical Care Time Critical Care Time: No
[2024-12-19] MEDS: MORPHINE 2MG/ML SYRINGE 4 MG IM (10:16)
[2024-12-19 11:00] VITALS: BP 181/96; PULSE 64; RESP 18; O2SAT 96
--- NOTE | 2024-12-19 11:23 | PC.NURSE ---
er at bedside
--- NOTE | 2024-12-19 11:25 | PC.NURSE ---
DR CH AT BEDSIDE TO UPDATE PT
--- NOTE | 2024-12-19 11:29 | PC.NURSE ---
ortho shoe applied to pt per er md request. provided pt with pepsi after ok from er md
[2024-12-19 11:30] VITALS: BP 170/102; PULSE 69; RESP 18; O2SAT 98
[2024-12-19 11:41] VITALS: BP 167/85; PULSE 70; RESP 18; TEMP 36.6; O2SAT 99
== END 2024-12-19 11:42 | disposition home or self-care (01) ==
PROVIDERS: Emergency Provider Student in an Organized Health Care Education/Training Program; PCP Family Medicine
DX: S92.302A Fracture of unspecified metatarsal bone(s), left foot, initial encounter for closed fracture (principal); W19.XXXA Unspecified fall, initial encounter
CPT/HCPCS: 70450; 72125; 72128; 72131; 73610; 73630; 96372; 99285; J2270

== ENCOUNTER 2024-12-22 15:00 | Outpatient (CLI) | payer OTHER, SELFPAY | END 2024-12-22 23:59 | disposition home or self-care (01) | LOC: LAB.DROPOF 12-23 12:19 | PROVIDERS: PCP Family Medicine; Visit Provider Family Medicine | DX: R31.9 Hematuria, unspecified (principal) | CPT/HCPCS: 87086 ==

== ENCOUNTER 2024-12-29 07:52 | Outpatient (CLI) | payer OTHER, SELFPAY ==
[2024-12-29 10:14] LABS: PHA INR Fingerstick 2.2 (0.9-1.1)
== END 2024-12-29 10:22 ==
LOC: ACC 07:53
PROVIDERS: PCP Family Medicine; Visit Provider Family Medicine
DX: G45.9 Transient cerebral ischemic attack, unspecified (principal); Z79.01 Long term (current) use of anticoagulants
CPT/HCPCS: 85610; 99211; G0463

== ENCOUNTER 2025-01-01 09:50 | Outpatient (CLI) | payer OTHER, SELFPAY ==
--- NOTE | 2025-01-01 09:54 | CT_ITS ---
FINAL REPORT TECHNIQUE: Axial CT of the abdomen and pelvis, without and with IV contrast. Oral contrast was also administered. This study was performed with techniques to keep radiation doses as low as reasonably achievable, (ALARA). Individualized dose reduction techniques using automated exposure control or adjustment of mA and/or kV according to the patient''s size were employed. CLINICAL HISTORY: HEMATURIA, STONE PROTOCOL COMPARISON: 06/30/2024 FINDINGS: Abdomen: Lung bases are clear. Liver has an unremarkable CT appearance. The spleen, pancreas and adrenal glands are unremarkable. Precontrast imaging shows new tiny 1-2 mm nonobstructing left renal stones within the calyceal. There is no right renal stone disease. No hydronephrosis or ureteral stone. Postcontrast imaging of the kidneys shows no mass or obstruction. No bowel obstruction or fluid collection is seen. There are postoperative changes from gastric bypass. Pelvis: There are presumed surgical changes from appendectomy. Status post hysterectomy. No distal ureteral stone identified. Pelvic bowel loops are unremarkable. No fluid collection or adenopathy is seen. IMPRESSION: Interval development of tiny nonobstructing left calyceal stones. No active obstructive stone disease. Reviewed, Interpreted and Dictated by Mina Wright MD Transcribed by Aruna Bazzi Authenticated and [facility]
== END 2025-01-01 23:59 | disposition home or self-care (01) ==
LOC: RAD 09:51
PROVIDERS: PCP Family Medicine; Visit Provider Family Medicine
DX: R31.9 Hematuria, unspecified (principal)
CPT/HCPCS: 74176

== ENCOUNTER 2025-01-09 13:24 | Outpatient (CLI) | payer OTHER, SELFPAY ==
[2025-01-09 13:36] LABS: Basophils # 0.2 K/mm3 (0-0.2); Basophils % 1.7 % (0.1-2.0); Eosinophils # 0.6 K/mm3 (0.0-0.4); Eosinophils % 6.7 % (0.1-12.0); Hematocrit 41.7 % (37.0-47.0); Hemoglobin 13.7 g/dL (12.2-16.2); Lymphocytes # 3.2 K/mm3 (0.7-4.5); Lymphocytes % 34.7 % (10-50); Mean Corpuscular HGB Conc 32.9 g/dL (31.8-35.4); Mean Corpuscular Hemoglobin 28.7 pg (27.0-31.2); Mean Corpuscular Volume 87.4 fl (81-99); Mean Platelet Volume 10.5 fl (7.4-10.4); Monocytes # 0.5 K/mm3 (0.1-1.0); Monocytes % 5.4 % (1.7-9.3); Neutrophils # 4.8 K/mm3 (1.8-7.8); Neutrophils % 51.3 % (37.0-80.0); Platelet Count 339 K/mm3 (142-424); Red Blood Count 4.77 M/mm3 (4.20-5.40); Red Cell Distribution Width 13.2 % (11.5-17.5); White Blood Count 9.3 K/mm3 (4.8-10.8)
[2025-01-09 14:10] LABS: Iron 73 ug/dL (37-170)
[2025-01-09 14:19] LABS: Total Iron Binding Capacity 446 ug/dL (265-497)
[2025-01-09 14:47] LABS: Ferritin 8.96 ng/ml (11.1-264)
== END 2025-01-09 23:59 | disposition home or self-care (01) ==
LOC: LAB 13:24
PROVIDERS: PCP Family Medicine; Visit Provider Internal Medicine Medical Oncology
DX: D64.9 Anemia, unspecified (principal)
CPT/HCPCS: 36415; 82728; 83540; 83550; 85025

== ENCOUNTER 2025-01-12 07:51 | Outpatient (CLI) | payer OTHER, SELFPAY | END 2025-01-12 23:59 | disposition home or self-care (01) | LOC: ACC 07:51 | PROVIDERS: PCP Family Medicine; Visit Provider Family Medicine | DX: Z79.01 Long term (current) use of anticoagulants (principal); G45.9 Transient cerebral ischemic attack, unspecified | CPT/HCPCS: 85610; 99211; G0463 ==

== ENCOUNTER 2025-01-19 07:47 | Outpatient (POV) | payer OTHER, SELFPAY ==
--- NOTE | 2025-01-19 07:52 | XR_ITS ---
FINAL REPORT TECHNIQUE: Left foot 3 views CLINICAL HISTORY: 5th Met FX x few weeks ago COMPARISON: 12/19/2024 FINDINGS: LEFT FOOT: 3 images of the left foot were obtained. There is a fracture fragment at the posterior base of the fifth metatarsal measuring 5 mm in size, stable in appearance since the prior exam of 12/19/2024. The fracture line is still visualized, and no definite callus formation is identified. The joint spaces are intact. There is no soft tissue abnormality identified. IMPRESSION: Fracture fragment posterior base of the fifth metatarsal is stable in appearance, without definite callus formation identified. Reviewed, Interpreted and Dictated by David Bee MD Transcribed by Kelly Masters Authenticated and [facility]
--- NOTE | 2025-01-19 08:58 | A.OFFVIS_ITS ---
[facility] Disclaimer: The information contained in this section may have been updated after the patient was seen, as this information can be updated by other users. Medical History Chronic anticoagulation Calculus of ureterovesical junction (UVJ) Facial paresthesia Morbid obesity with body mass index (BMI) of 40.0 to 49.9 TIA (transient ischemic attack) Acute CVA (cerebrovascular accident) Left leg DVT Vasomotor symptoms due to menopause Stroke Lupus Asthma History of gastroesophageal reflux (GERD) Hypertension Dizziness Edema History of TIA (transient ischemic attack) History of DVT (deep vein thrombosis) Surgical History H/O gastric bypass History of hysterectomy History of section History of appendectomy History of cholecystectomy Family History Other Coronary artery disease Diabetes Social History Smoking Status: Never smoker second hand exposure: No alcohol intake: never substance use type: denies use current occupational status: employed Travel in the last 8 weeks: None household members: spouse housing: house caffeine: Yes Have you lived/traveled outside US in past 30 days?: No Contact w/someone who lives/traveled outside US past 30 days?: No Exposure to someone with infectious disease in past 14 days?: No Do you have a fever (greater than 100.4 F or 38 C)?: No Have you tested positive for COVID-19: No Exposed to someone with COVID-19 in past 14 days?: No Do you have a sore throat?: No Do you have a cough?: No Do you have any weakness?: No Do you have any diarrhea?: No Are you experiencing any unusual bleeding?: No Do you have any muscle aches/pain?: No Do you have any abdominal pain?: No Are you experiencing loss of taste or smell?: No PM Subjective & Objective Subjective Subjective:: Patient is a pleasant 54-year-old female who presents today for medication refill and follow-up. Today she rates her pain a 5 out of 10. Patient does state that she had a pretty significant fall yesterday where she ended up landing on her left shoulder. Patient states the pain has been severe stance and that she can barely move this joint. She states that she did have to get her to help her get dressed. Patient is asking whether we can do some additional imaging. Patient is currently managed with [place] 10 mg 4 times a day, pregabalin 100 mg 3 times a day and baclofen 10 mg 4 times a day. She denies any side effects. Patient does state that she did finally get approval for her lumbar epidural of L3-L4 and does have that scheduled coming up with our office. Her Loi has been reviewed and is appropriate. Review of Systems: General: No recent weight changes, no fever, no sleep disturbances Respiratory: No cough, no shortness of air, no recurring pulmonary infections Cardiovascular/peripheral vascular: No chest pain, no palpitations, no edema, no shortness of breath Gastrointestinal: No new onset incontinence, normal bowel movements reported Genitourinary: No new onset incontinence Musculoskeletal: Low back pain, leg pain, left shoulder pain Psychiatric: [Normal mood/affect] Neurological: [Denies weakness in extremities], [denies balance issues] Pain at rest (0-10 scale): 5 Objective Objective:: Physical Exam: General: Alert and oriented x3, no acute distress, pleasant and cooperative Lungs: Respirations even and unlabored, symmetrical chest expansion Eyes: PERRL Musculoskeletal: Flexion and extension of lumbar [spine] somewhat guarded secondary to pain, [antalgic gait noted] Neurological: Speech clear, no gross sensory deficit Has patient had previous pain injection?: No Conservative treatment options previously tried: Home exercise plan Length of treatment: Longer than 12 weeks and Prescription medications Length of treatment: Longer than 12-week Meds Home Medications and Allergies Home Medications ?Medication ?Instructions ?Recorded ?Confirmed ?Type cyanocobalamin (vitamin B-12) 1,000 mcg SQ WEEKLY 01/01/24 12/24/24 History 1,000 mcg/mL injection solution fezolinetant 45 mg tablet (Veozah) 45 mg PO DAILY #90 tabs 04/02/24 12/24/24 Rx hydroxychloroquine 200 mg tablet 200 mg PO BID 06/30/24 12/24/24 History clobetasol 0.05 % topical cream 1 applic topical BID #60 grams 07/30/24 12/24/24 Rx prochlorperazine maleate 10 mg 10 mg PO Q8H PRN nausea and 09/18/24 12/24/24 Rx tablet (Compazine) vomiting #30 tabs ondansetron 4 mg disintegrating 4 mg PO BID PRN nausea and vomiting 10/16/24 12/24/24 History tablet albuterol sulfate 90 mcg/actuation 2 puff inhalation QID PRN 11/10/24 12/24/24 Rx aerosol inhaler shortness of breath or wheezing #8.5 grams aspirin 81 mg tablet,delayed 162 mg PO DAILY 11/10/24 12/24/24 History release dapagliflozin propanediol 10 mg 10 mg PO DAILY #90 tabs 11/10/24 12/24/24 Rx tablet (Farxiga) alendronate 10 mg tablet 10 mg PO DAILY 90 days #90 tabs 11/26/24 12/24/24 Rx promethazine 12.5 mg tablet 12.5 mg PO TID PRN nausea and 12/09/24 12/24/24 Rx vomiting #12 tabs warfarin 5 mg tablet 2.5 mg PO MOWEFR 12/22/24 12/24/24 History warfarin 5 mg tablet 5 mg PO SUTUTHSA 12/22/24 12/24/24 History levofloxacin 500 mg tablet 500 mg PO DAILY #10 tabs 12/25/24 Rx desvenlafaxine succinate 50 mg 50 mg PO DAILY #90 tabs 12/29/24 Rx tablet,extended release 24 hr (Pristiq) promethazine 25 mg tablet 25 mg PO Q6H PRN nausea and 01/07/25 Rx vomiting #90 tabs baclofen 10 mg tablet 10 mg PO TID #90 tabs 01/19/25 Rx hydrocodone 10 mg-acetaminophen 1 tab PO Q6HP PRN MILD TO MODERATE 01/19/25 Rx 325 mg tablet PAIN #120 tabs pregabalin 100 mg capsule 100 mg PO TID #90 caps 01/19/25 Rx New Prescriptions to Start Prescriptions: hydrocodone-acetaminophen Jose Cruz,Zoë A baclofen Billingsley,Zoë A pregabalin Billingsley,Zoë A Allergies Allergy/AdvReac Type Severity Reaction Status Date / Time gum mastic (From MASTISOL Allergy Unknown Unknown Verified 12/24/24 11:09 ADHESIVE) allergy reaction measles, mumps, and rubella Allergy Unknown Unknown Verified 12/24/24 11:09 vaccine (MEASLES, MUMPS, AND allergy RUBELLA VACCINE) reaction methyl salicylate (From Allergy Unknown Unknown Verified 12/24/24 11:09 MASTISOL ADHESIVE) allergy reaction Penicillins (PENICILLINS) Allergy Unknown Hives Verified 12/24/24 11:09 storax (From MASTISOL Allergy Unknown Unknown Verified 12/24/24 11:09 ADHESIVE) allergy reaction Sulfa (Sulfonamide Allergy Unknown Hives Verified 12/24/24 11:09 Antibiotics) (SULFA (SULFONAMIDE ANTIBIOTICS)) sumatriptan (From IMITREX) Allergy Unknown Anaphylaxis Verified 12/24/24 11:09 sulfamethoxazole (From Allergy Unknown Verified 12/24/24 11:09 Bactrim) allergy reaction trimethoprim (From Bactrim) Allergy Unknown Verified 12/24/24 11:09 allergy reaction adhesive AdvReac Mild Rash Verified 12/24/24 11:09 Assessment and Plan *Assessment and plan (1) Left shoulder pain: Status: Acute Category: Medical Code(s): M25.512 - Pain in left shoulder (2) Degenerative disc disease: Status: Chronic Qualifiers: Spinal region: lumbar Qualified Code(s): M51.36 - Other intervertebral disc degeneration, lumbar region Category: Medical (3) Lumbar radiculopathy: Status: Chronic Category: Medical Code(s): M54.16 - Radiculopathy, lumbar region Plan I will order x-ray imaging of her left shoulder and we did discuss if the pain continues to be bothersome that we will reevaluate and order advanced imaging. Patient was counseled that the hope is that she is just very sore since the fall was yesterday. I will refill the patient's [place], pregabalin and baclofen. Patient will be in the clinic for an upcoming lumbar epidural so I will not give her at an additional appointment today. Patient will follow-up in clinic at her lumbar epidural appointment. Risks and benefits of the medication have been explained in detail to the patient. The patient does understand the risk of dependence on the medication when given over a prolonged period. Patient has been advised of risks of oversedation with the prescribed medication. Narcan has been offered to the paitent in the event of oversedation. Patient has been advised that a family member should also be educated regarding administration of Narcan. The patient has been advised to consult with his/her primary care provider and pharmacist regarding drug-drug interaction of medications currently prescribed. Patient has been prescribed a controlled substance after being counseled on the medication, medication safety, and possible side effects. Opioid contract was reviewed and signed by the patient, and that they have agreed to all of the terms set forth by our compliance program. A UDS is needed to verify patient's compliance with our office pain contract. This is ordered based off specific treatments related to chronic pain with the potential to abuse certain medications. Patient has been instructed to contact the clinic with any concerns before the next appointment. Dr. Venegas has reviewed this note and agrees with this plan of care. This note was dictated using voice recognition software and make contain errors or omissions.
--- NOTE | 2025-01-19 09:03 | XR_ITS ---
FINAL REPORT CLINICAL HISTORY: Lt anterior shoulder pain post fall yesterday FINDINGS: LEFT SHOULDER 3 views of the left shoulder were obtained. There is no acute fracture or dislocation. Visualized joint spaces are normally aligned. Soft tissues are unremarkable. IMPRESSION: No acute bony abnormality. Reviewed, Interpreted and Dictated by David Bee MD Transcribed by Negra Terrazas Authenticated and [facility]
[2025-01-19 09:20] VITALS: BP 116/80; PULSE 66; RESP 18; O2SAT 100; BMI 31.8
--- OUTSIDE RECORDS SUMMARY | 2025-01-22 20:04 | XMS_ITS | Data Portability ---
Author Organization [facility] SHASHI Rossi [place] [employer] Address [address] [place] [address] Care Team Providers Care Frame Feeder Name Role Phone SANGEETA BENOIT Primary Care Provider Assessment Encounter Date Assessment Date Assessment LastModified by Organization Details LastModified Time 05/21/2024 05/21/2024 Kassi Claudio is a 54-year-old female presenting to the clinic with complaints of chronic back pain that has gotten worse over the past 2.[address] images reviewed by myself and the radiologist report was read. This reveals no central canal stenosis. There are disc abnormalities at L3-4 and L4-5. Examination with the CT is quite limited. I have placed orders for a lumbar MRI with and without contrast, lumbar AP/lateral/flexion /extension x-rays. I have also referred the patient to physical therapy. She states that she often experiences lower extremity cramping when attempting to have an MRI performed. I will send her Flexeril to take prior to her MRI. She should follow-up in the clinic in 6 weeks once imaging has been completed. [email or web address] Not available 05/21/2024 11:00:40 07/02/2024 07/02/2024 Kassi Claudio is a 54-year-old female presenting to the clinic for a follow-up regarding her chronic back pain that has gotten worse over the past 3-4 months. The patient failed to obtain a disc with her lumbar MRI images for today's appointment. I instructed that further steps could not be discussed until MRI images could be reviewed. I instructed the patient to obtain a disc from [facility] and bring the disc to us. Once we have the disc, I will have Dr. Walker review the imaging and contact the patient. I have scheduled her for a follow-up appointment in 6 weeks as well. 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 Venegas at who presents with several months of headaches. I studied her MRI brain and C-spine from 08/19/2024. There is no significant spinal cord compression. The brain appears largely normal. I thoroughly discussed her image findings with her. Given the lack of a surgical target or radiographic etiology, no surgery is indicated. I explained this to her and answered all of her questions. If she continues to have debilitating headaches, consider further evaluation by headache specialist. [email or web address] Not available 10/17/2024 12:21:54 Plan of Treatment Reminders Order Date Submit Date Provider Last Modified By Organization Details Last Modified Time Details Appointments None recorded. Lab None recorded. Referral None recorded. Procedures None recorded. Surgeries None recorded. Imaging None recorded. Medication Orders cyclobenzap rine 10 mg tablet 2023 024 [facility], [address] [place] [address], [id number], 11:01:23 Patient TargetsNo targets recorded. Patient InstructionsNo instructions recorded. Reason for Referral None Reported. Results Created Date Observation Date Name Description Value Unit Range Abnormal Flag Note LastModifiedBy Organization Detail LastModifiedTime 06/12/2006/11/2024 MRI, lumba r spine , w/wo contr ast No observ ation record ed. [email or web address] Not Available 2023 11:20:48 08/22/20 24 08/19/2024 MRI, cervi claribel spine , w/wo contr ast No observ ation record ed. [email or web address] Not Available 09/12 14:51:14 Result Notes None recorded. Procedures Surgical History Date Name Laterality Status Provider Name and Address Organization Details Recorded Time Back Surgery completed [facility] 05/21/2024 10:17:19 section completed [facility] 05/21/2024 10:17:33 Appendectomy completed [facility] 05/21/2024 10:17:40 Cholecystectomy completed [facility] 05/21/2024 10:17:48 hysterectomy completed [facility] 05/21/2024 10:17:58 Gastric bypass for obesity completed [facility] 05/21/2024 10:18:08 Imaging Results Imaging Date Name Status LastModified by Organiz ation Details LastModified Time 06/11/2024 MRI, lumbar spine, w/wo contrast completed [email or web address] Information not available 06/12/2024 11:20:48 08/19/2024 MRI, cervical spine, w/wo contrast active [email or web address] Information not available 09/12/2024 14:51:14 Procedure Notes None recorded. Medical Equipment None Reported. Medications Name Sig Start Date Stop Date Status Note LastModified by Organization Details LastModified Time losartan 50 mg tablet 05/21 completed Not Available Not Available Not Available celecoxib 200 mg capsule TAKE 1 CAPSULE BY MOUTH TWICE A DAY NEEDED FOR PAIN active Not Available Not Available No t Available cyclobenzap rine 10 mg tablet Take 1 tablet 3 times a day by oral route. active Not Available Not Available No t Available alendronate 10 mg tablet TAKE 1 TABLET BY MOUTH EVERY DAY active Not Available Not Available No t Available carvedilol 6.25 mg tablet active Not Available Not Available Not Available ropinirole 1 mg tablet TAKE TWO TABLETS BY MOUTH EVERY DAY 1 TO 3 hours BEFORE bedtime 05/21 completed Not Available Not Available Not Available torsemide 20 mg tablet TAKE 1 TABLET BY MOUTH TWICE A DAY NEEDED FOR EDEMA 05/21 completed Not Available Not Available Not Available azithromyci n 250 mg tablet TAKE 2 TABLETS BY MOUTH ON DAY 1, THEN TAKE 1 TABLET DAILY ON DAYS 2-5 05/21 completed Not Available Not Available Not Available fluconazole 150 mg tablet TAKE ONE TABLET BY MOUTH ONCE DAILY FOR 7 DAYS -- FINISH ALL MEDICINE -- active Not Available Not Available No t Available hydrocodone 5 mg-acetamin ophen 325 mg tablet TAKE ONE TABLET BY MOUTH SIX TIMES DAILY MAY CAUSE DROWSINES S 05/21 completed Not Available Not Available Not Available Nystop 100,000 unit/gram topical powder active Not Available Not Available Not Available promethazin e 12.5 mg tablet 05/21 completed Not Available Not Available Not Available phenazopyri dine 200 mg tablet active Not Available Not Available Not Available prednisone 20 mg tablet active Not Available Not Available Not Available gabapentin 400 mg capsule active Not Available Not Available Not Available clobetasol 0.05 % topical cream active Not Available Not Available Not Available clopidogrel 75 mg tablet active Not Available Not Available Not Available prochlorper azine maleate 10 mg tablet active Not Available Not Available No t Available hydrocodone 10 mg-acetamin ophen 325 mg tablet TAKE ONE TABLET BY MOUTH FOUR TIMES DAILY MAY CAUSE DROWSINES S active Not Available Not Available No t Available ketorolac 10 mg tablet active Not Available Not Available Not Available nystatin-tr iamcinolone 100,000 unit/gram-0 .1 % topical ointment APPLY TOPICALLY TO THE AFFECTED AREA(S) TWICE DAILY FOR 5 DAYS -- FOR EXTERNAL USE ONLY-- active Not Available Not Available No t Available hydromorpho ne 2 mg tablet TAKE 1 TABLET BY MOUTH EVERY 4 HOURS NEEDED FOR PAIN active Not Available Not Available No t Available potassium chloride ER 20 mEq tablet,exte nded release(par t/cryst) TAKE ONE TABLET BY MOUTH EVERY DAY FOR low potassium active Not Available Not Available No t Available amitriptyli ne 25 mg tablet active Not Available Not Available Not Available tamsulosin 0.4 mg capsule active Not Available Not Available Not Available baclofen 10 mg tablet active Not Available Not Available No t Available benzonatate 100 mg capsule active Not Available Not Available Not Available hydrocodone 7.5 mg-acetamin ophen 325 mg tablet TAKE ONE TABLET BY MOUTH EVERY 4 HOURS NEEDED FOR PAIN MAY CAUSE DROWSINES S 05/21 completed Not Available Not Available Not Available pantoprazol e 40 mg tablet,patricia yed release active Not Available Not Available Not Available cyanocobala min (vit B-12) 1,000 mcg/mL injection solution INJECT 1 ML SUBCUTANE OUSLY ONCE A WEEK active Not Available Not Available No t Available ferrous sulfate 325 mg (65 mg iron) tablet PLEASE SEE ATTACHED FOR DETAILED DIRECTION S active Not Available Not Available No t Available esomeprazol e magnesium 40 mg capsule,del ayed release TAKE 1 CAPSULE BY MOUTH EVERY DAY FOR GERD active Not Available Not Available No t Available warfarin 2 mg tablet TAKE ONE TABLET BY MOUTH EVERY DAY OR DIRECTED active Not Available Not Available No t Available promethazin e 25 mg tablet TAKE 1 TABLET BY MOUTH EVERY 4 HOURS NEEDED FOR NAUSEA AND VOMITING 05/21 completed Not Available Not Available Not Available warfarin 5 mg tablet TAKE ONE TABLET BY MOUTH EVERY DAY OR as otherwise directed active Not Available Not Available No t Available omeprazole 20 mg capsule,del ayed release TAKE 1 CAPSULE BY MOUTH EVERY DAY active Not Available Not Available No t Available furosemide 20 mg tablet active Not Available Not Available Not Available hydroxychlo roquine 200 mg tablet TAKE 1 TABLET BY MOUTH 2 TIMES A DAY active Not Available Not Available No t Available levofloxaci n 500 mg tablet TAKE ONE TABLET BY MOUTH ONCE DAILY FOR 10 DAYS -- FINISH ALL MEDICINE -- active Not Available Not Available No t Available methylpredn isolone 4 mg tablets in a dose pack active Not Available Not Available Not Available ondansetron 4 mg disintegrat ing tablet TAKE 1 TABLET BY MOUTH TWICE A DAY NEEDED active Not Available Not Available No t Available cefdinir 300 mg capsule active Not Available Not Available Not Available spironolact one 50 mg tablet 05/21 completed Not Available Not Available Not Available oxycodone 5 mg tablet active Not Available Not Available No t Available enoxaparin 60 mg/0.6 mL subcutaneou s syringe INJECT 60 MG (0.6 ML) SUBCUTANE OUSLY EVERY 12 HOURS FOR HYPERCOAG ULOPATHY active Not Available Not Available No t Available enoxaparin 120 mg/0.8 mL subcutaneou s syringe INJECT 108 MG (0.72 ML) SUBCUTANE OUSLY EVERY TWELVE HOURS FOR FOURTEEN DAYS STARTING DAY 5 prior TO surgery no injection 12 hours prior TO surgery active Not Available Not Available No t Available bupropion HCl XL 150 mg 24 hr tablet, extended release active Not Available Not Available Not Available nitrofurant oin monohydrate /macrocryst als 100 mg capsule active Not Available Not Available Not Available duloxetine 60 mg capsule,del ayed release TAKE 1 CAPSULE BY MOUTH AT BEDTIME NIGHTLY FOR DORSALGIA S 05/21 completed Not Available Not Available Not Available pregabalin 100 mg capsule TAKE ONE CAPSULE BY MOUTH THREE TIMES DAILY FOR neuropath y MAY CAUSE DROWSINES S active Not Available Not Available No t Available desvenlafax ine succinate ER 50 mg tablet,exte nded release 24 hr TAKE 1 TABLET BY MOUTH EVERY DAY active Not Available Not Available No t Available guaifenesin ER 600 mg tablet, extended release 12 hr TAKE ONE TABLET BY MOUTH TWICE DAILY NEEDED FOR cough 05/21 completed Not Available Not Available Not Available baclofen 5 mg tablet TAKE ONE TABLET BY MOUTH THREE TIMES DAILY FOR MUSCLE SPASMS active Not Available Not Available No t Available Veozah 45 mg tablet TAKE 1 TABLET BY MOUTH EVERY DAY active Not Available Not Available No t Available Vitals Date Recorded Body height Body mass index (BMI) Body weight Systolic blood pressure Diastolic blood pressure Provider Name and Address Organization Details Last Updated DateTime 05/21/2024 160.02 cm 33.7 kg/m2 07113.55 g 130 mm[Hg] 82 mm[Hg] [facility] 4 10:25:23 Date Recorded Body height Body mass index (BMI) Body weight Systolic blood pressure Diastolic blood pressure Provider Name and Address Organization Details Last Updated DateTime 07/02/2024 160.02 cm 33.7 kg/m2 35440.55 g 126 mm[Hg] 82 mm[Hg] [facility] 4 11:21:39 Date Recorded Body height Body mass index (BMI) Body weight Systolic blood pressure Diastolic blood pressure Provider Name and Address Organization Details Last Updated DateTime 10/17/2024 160.02 cm 33.7 kg/m2 32851.55 g 122 mm[Hg] 82 mm[Hg] [facility] 5 09:17:07 Social History None recorded. Functional Status None recorded. Mental Status None recorded. Family History Relationship Description Onset Age of this Age Resolved Age Notes LastModified by Organization Details LastModified Time Unspecified Relation Diabetes mellitus [email or web address] Not available 05/21 10:16:42 Unspecified Relation Hypertensive disorder [email or web address] Not available 05/21 10:16:53 Medical History No medical history recorded. Gynecological HistoryNo gynecological history recorded. Obstetrics History GPAL:G 0 P 0 0 0 0 Past Encounters Encounter ID Performer Location Encounter Start Date Encounter Closed Date Diagnosis/Indication Diagnosis SNOMED-CT Code Diagnosis ICD10 Code Diagnosis Note [id number] SKIP KAUFMAN PA-C [facility] [address] [place] [address] 05/21/2024 09:59:46 05/23/2024 14:19:21 Lumbar radiculopathy 140912818 M54.16 [id number] SKIP KAUFMAN PA-C [facility] [address] [place] [address] 07/02/2024 10:12:30 07/07/2024 10:32:51 Lumbar radiculopathy 497937096 M54.16 Low back pain [id number] M54.50 [id number] VÍCTOR WALKER MD NEUROSURG [facility] [address] [place] [address] 10/17/2024 09:09:50 10/18/2024 05:47:25 Headache 88625395 R51.9 Health Concerns Section Related Observation LastModified by Organization Detai ls LastModified Time None Recorded Concern Status LastModified by Organization Details LastModified Time None Recorded Advance Directives Directive None Recorded Payers Encounter Date Sequence Insurance Name Policy Number Policy Junior Covered Member ID Junior Member ID Guarantor Name 05/21/2024 1 [employer] (EPO) [id number] Kassi Claudio [id number] Kassi Claudio 07/02/2024 1 [employer] (E[employer]) [id number] Kassi Claudio [id number] Kassi White 10/17/2024 1 [employer] (EPO) [id number] Kassi Claudio [id number] Kassi Claudio Notes Date Note Type Note Provider Name and Address Organization Details Recorded Time text/html Kassi Claudio is a 54-year-old female presenting to the clinic with complaints of chronic back pain that has gotten worse over the past 2.5 months. She states that over the past 2.5 months, the pain became diffuse in her lower back. Most of her pain is isolated to the left side of her lower back. She also complains of pain in her left leg extending from the knee down she complains of a deep aching pain in her posterior calf on the left side. She also complains of numbness from the knee down, in a nondermatomal pattern. She does not have any symptoms in her right lower extremity. She has had previous laminectomies, discectomies, and foraminotomies in 2012 at . She advises that she has had left lower extremity weakness prior to her surgery in 2011 which never resolved. 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 She states that she has had left foot drop since having a stroke in 2021 as well. She wears a brace for her foot drop. She has not had any physical therapy for her back pain. She does see pain management but has not had any injections due to being on warfarin. SKIP KAUFMAN PA-C [address] [place], [address], [facility] 05/21/2024 11:01:32 4 text/html Kassi Claudio is a 54-year-old female presenting to the clinic for a follow-up regarding her chronic back pain that has gotten worse over the past 3-4 months. She reports previously having surgery [place] [address] Venegas at . She is unsure what kind of spine surgery she had but advises that it was L3-5. She advises that she has had baseline left lower extremity since 2012 as well. At her last visit, she was complaining of pain in the posterior aspect of her left lower extremity extending from the knee down that she described as a deep ache. She was referred for physical therapy and an MRI was ordered. She went to physical therapy and states that she has not had any relief of her lower back pain. She also received an AMIRAH which provided relief for 2-3 weeks. She does advise that the pain in her left lower extremity has resolved. She had her MRI completed at [facility] on 06/11/2024 but did not obtain a disc with the MRI images to bring to her appointment today. 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 Venegas at who presents with several months of headaches. She has daily occipital headaches that radiate down her entire spine. The pain does not appear to radiate up her occiput but predominantly travels down the center of her back. No myelopathic or radicular symptoms. No nausea, photophobia, or phonophobia associated with the headaches. For the last several minutes to hours. No vision changes. Excedrin helps some. Neck massager seems to help. VÍCTOR WALKER MD [address] [place] [address], [phone], [facility] 10/17/2024 12:23:13 OBGyn Episode No OBEpisode recorded.
--- OUTSIDE RECORDS SUMMARY | 2025-01-22 20:04 | XMS_ITS ---
Author Organization Unknown Medications Medication Instructions Effective Dates (start - stop) Status estradiol 1 MG Oral Tablet 06-16T00:00:00.000+00 :00 - Completed estradiol 1 MG Oral Tablet 07-14T:00:00.000+00 :00 - Completed estradiol 1 MG Oral Tablet :00:00.000+00 :00 - Completed estradiol 1 MG Oral Tablet :00:00.000+00 :00 - Completed pregabalin 100 MG Oral Capsule 2 921-34-51P15:00:00.000+00 :00 - Completed pregabalin 100 MG Oral Capsule 2 778-28-84Z33:00:00.000+00 :00 - Completed pregabalin 100 MG Oral Capsule 2 841-27-77F22:00:00.000+00 :00 - Completed baclofen 5 MG Oral Tablet 3-0 3-T:00:00.000+00 :00 - Completed baclofen 5 MG Oral Tablet 3-0 -T00:00:00.000+00 :00 - Completed pregabalin 100 MG Oral Capsule 2 315-43-80I84:00:00.000+00 :00 - Completed baclofen 5 MG Oral Tablet 3-0 -T:00:00.000+00 :00 - Completed baclofen 10 MG Oral Tablet 11-14T:00:00.000+00 :00 - Completed pregabalin 100 MG Oral Capsule 2 629-99-57W95:00:00.000+00 :00 - Completed baclofen 10 MG Oral Tablet 09-26T00:00:00.000+00 :00 - Completed pregabalin 100 MG Oral Capsule 2 596-38-20A94:00:00.000+00 :00 - Completed pregabalin 100 MG Oral Capsule 2 713-28-30C44:00:00.000+00 :00 - Completed pregabalin 100 MG Oral Capsule 2 679-32-52Q57:00:00.000+00 :00 - Completed baclofen 5 MG Oral Tablet :00:00.000+00 :00 - Completed pregabalin 100 MG Oral Capsule 2 863-95-17I53:00:00.000+00 :00 - Completed pregabalin 100 MG Oral Capsule 2 841-94-47P03:00:00.000+00 :00 - Completed carvedilol 6.25 MG Oral Tablet 2 153-23-24F07:00:00.000+00 :00 - Completed baclofen 10 MG Oral Tablet :00:00.000+00 :00 - Completed pregabalin 100 MG Oral Capsule 2 952-63-39N64:00:00.000+00 :00 - Completed tizanidine 4 MG Oral Tablet 2021:00:00.000+00 :00 - Completed carvedilol 6.25 MG Oral Tablet 2 515-05-34Q94:00:00.000+00 :00 - Completed ropinirole 1 MG Oral Tablet 2022:00:00.000+00 :00 - Completed ropinirole 1 MG Oral Tablet 2021:00:00.000+00 :00 - Completed fluconazole 100 MG Oral Tablet 086-13-80S76:00:00.000+00 :00 - Completed warfarin sodium 5 MG Oral Tablet 2928-43-57O11:00:00.000+00 :00 - Completed warfarin sodium 5 MG Oral Tablet 5251-01-35S16:00:00.000+00 :00 - Completed clopidogrel 75 MG Oral Tablet 05-10-06:00:00.000+00 :00 - Completed fluconazole 200 MG Oral Tablet 310-93-66X74:00:00.000+00 :00 - Completed ropinirole 1 MG Oral Tablet 2022:00:00.000+00 :00 - Completed warfarin sodium 2 MG Oral Tablet 6905-90-74Q85:00:00.000+00 :00 - Completed losartan potassium 50 MG Oral Tablet 5240-11-37D44:00:00.000+00 :00 - Completed duloxetine 60 MG Delayed Rel ease Oral Capsule 4490-36-14F36:00:00.000+00 :00 - Completed carvedilol 6.25 MG Oral Tablet 2 833-53-34E72:00:00.000+00 :00 - Completed prednisone 20 MG Oral Tablet 12-19-22:00:00.000+00 :00 - Completed clopidogrel 75 MG Oral Tablet 07-12-12:00:00.000+00 :00 - Completed esomeprazole 40 MG Delayed R elease Oral Capsule 4644-87-27E21:00:00.000+00 :00 - Completed warfarin sodium 2 MG Oral Tablet 1086-82-17E06:00:00.000+00 :00 - Completed warfarin sodium 5 MG Oral Tablet 0574-45-37D47:00:00.000+00 :00 - Completed clopidogrel 75 MG Oral Tablet 06-03-01:00:00.000+00 :00 - Completed carvedilol 6.25 MG Oral Tablet 2 841-33-07X96:00:00.000+00 :00 - Completed warfarin sodium 5 MG Oral Tablet 7473-61-11T07:00:00.000+00 :00 - Completed {6 (azithromycin 250 MG Oral Tablet) } Pack 4621-19-41A60:00:00.000+00 :00 - Completed cefdinir 300 MG Oral Capsule 12-15-26:00:00.000+00 :00 - Completed tizanidine 4 MG Oral Tablet 2021:00:00.000+00 :00 - Completed prednisone 5 MG Oral Tablet 2022:00:00.000+00 :00 - Completed fluconazole 200 MG Oral Tablet 2 001-99-58S21:00:00.000+00 :00 - Completed prednisone 5 MG Oral Tablet 2022:00:00.000+00 :00 - Completed prednisone 20 MG Oral Tablet 12-15-16:00:00.000+00 :00 - Completed rivaroxaban 20 MG Oral Table t [Xarelto] 5164-55-09A90:00:00.000+00 :00 - Completed {21 (methylprednisolone 4 MG Oral Tablet) } Pack 7810-43-81R19:00:00.000+00 :00 - Completed spironolactone 50 MG Oral Tablet 6969-53-59Z31:00:00.000+00 :00 - Completed spironolactone 50 MG Oral Tablet 5893-30-63R83:00:00.000+00 :00 - Completed spironolactone 50 MG Oral Tablet 1056-42-64T84:00:00.000+00 :00 - Completed duloxetine 60 MG Delayed Rel ease Oral Capsule 5802-78-02W92:00:00.000+00 :00 - Completed prednisone 20 MG Oral Tablet 12-19-18:00:00.000+00 :00 - Completed azithromycin 500 MG Oral Tablet 9512-81-68S97:00:00.000+00 :00 - Completed spironolactone 50 MG Oral Tablet 1340-30-25D43:00:00.000+00 :00 - Completed prednisone 20 MG Oral Tablet 202 12-16-09:00:00.000+00 :00 - Completed prednisone 20 MG Oral Tablet 12-19-10:00:00.000+00 :00 - Completed clopidogrel 75 MG Oral Tablet 06-11-09:00:00.000+00 :00 - Completed duloxetine 60 MG Delayed Rel ease Oral Capsule 8138-27-81G76:00:00.000+00 :00 - Completed tizanidine 4 MG Oral Tablet 2021:00:00.000+00 :00 - Completed duloxetine 60 MG Delayed Rel ease Oral Capsule 1897-64-57M92:00:00.000+00 :00 - Completed rivaroxaban 20 MG Oral Table t [Xarelto] 3261-36-02T27:00:00.000+00 :00 - Completed hydroxychloroquine sulfate 2 00 MG Oral Tablet 3004-51-73W96:00:00.000+00 :00 - Completed ropinirole 1 MG Oral Tablet 2021:00:00.000+00 :00 - Completed esomeprazole 40 MG Delayed R elease Oral Capsule 0961-75-08O57:00:00.000+00 :00 - Completed torsemide 20 MG Oral Tablet 2022:00:00.000+00 :00 - Completed cyclobenzaprine hydrochlorid e 10 MG Oral Tablet 1008-32-29N17:00:00.000+00 :00 - Completed torsemide 20 MG Oral Tablet 2022:00:00.000+00 :00 - Completed gabapentin 400 MG Oral Capsule 2 459-73-66N26:00:00.000+00 :00 - Completed hydroxychloroquine sulfate 2 00 MG Oral Tablet 2568-68-09N38:00:00.000+00 :00 - Completed losartan potassium 50 MG Oral Tablet 7048-78-94A12:00:00.000+00 :00 - Completed torsemide 20 MG Oral Tablet 2021:00:00.000+00 :00 - Completed torsemide 20 MG Oral Tablet 2021:00:00.000+00 :00 - Completed hydroxychloroquine sulfate 2 00 MG Oral Tablet 1946-05-39F56:00:00.000+00 :00 - Completed esomeprazole 40 MG Delayed R elease Oral Capsule 8113-44-55Y90:00:00.000+00 :00 - Completed rivaroxaban 20 MG Oral Table t [Xarelto] 9921-08-01S52:00:00.000+00 :00 - Completed gabapentin 400 MG Oral Capsule 2 376-05-43O67:00:00.000+00 :00 - Completed rivaroxaban 20 MG Oral Table t [Xarelto] 6887-63-11Z30:00:00.000+00 :00 - Completed losartan potassium 50 MG Oral Tablet 6001-58-54R16:00:00.000+00 :00 - Completed hydroxychloroquine sulfate 2 00 MG Oral Tablet 9345-21-13A01:00:00.000+00 :00 - Completed esomeprazole 40 MG Delayed R elease Oral Capsule 7513-24-12Y58:00:00.000+00 :00 - Completed hydroxychloroquine sulfate 2 00 MG Oral Tablet 9559-25-72S72:00:00.000+00 :00 - Completed ropinirole 1 MG Oral Tablet 2021:00:00.000+00 :00 - Completed ropinirole 1 MG Oral Tablet 2021:00:00.000+00 :00 - Completed losartan potassium 50 MG Oral Tablet 0487-44-74I91:00:00.000+00 :00 - Completed acetaminophen 325 MG / hydro codone bitartrate 10 MG Oral Tablet 5879-65-28S87:00:00.000+0 0 :00 - Completed acetaminophen 325 MG / hydro codone bitartrate 10 MG Oral Tablet 1412-07-95Z27:00:00.000+0 0 :00 - Completed acetaminophen 325 MG / hydro codone bitartrate 10 MG Oral Tablet 0671-52-87J70:00:00.000+0 0 :00 - Completed acetaminophen 325 MG / hydro codone bitartrate 10 MG Oral Tablet 5374-78-00V71:00:00.000+0 0 :00 - Completed acetaminophen 325 MG / hydro codone bitartrate 10 MG Oral Tablet 7405-54-79Y50:00:00.000+0 0 :00 - Completed acetaminophen 325 MG / hydro codone bitartrate 10 MG Oral Tablet 0576-30-06B80:00:00.000+0 0 :00 - Completed acetaminophen 325 MG / hydro codone bitartrate 10 MG Oral Tablet 2053-63-80E95:00:00.000+0 0 :00 - Completed acetaminophen 325 MG / hydro codone bitartrate 10 MG Oral Tablet 1468-16-51Q81:00:00.000+0 0 :00 - Completed acetaminophen 325 MG / hydro codone bitartrate 10 MG Oral Tablet 2530-12-90X59:00:00.000+0 0 :00 - Completed acetaminophen 325 MG / hydro codone bitartrate 10 MG Oral Tablet 6296-84-83N51:00:00.000+0 0 :00 - Completed Patient Care team information Name Category Status Period Participants - - Proposed period not known -
== END 2025-01-19 23:59 | disposition home or self-care (01) ==
PROVIDERS: PCP Family Medicine; Visit Provider Nurse Practitioner Family
DX: M79.672 Pain in left foot (principal); M25.512 Pain in left shoulder; M54.16 Radiculopathy, lumbar region; M51.361 Other intervertebral disc degeneration, lumbar region with lower extremity pain only; Z86.718 Personal history of other venous thrombosis and embolism; Z79.01 Long term (current) use of anticoagulants
CPT/HCPCS: 73030; 73630; 99212; G0463

== ENCOUNTER 2025-01-27 07:55 | Day surgery (SDC) | payer OTHER, SELFPAY ==
[2025-01-27 08:34] LABS: INR 0.91 (0.9-1.1); Prothrombin Time 10.3 seconds (10.1-12.5)
[2025-01-27 09:13] VITALS: BP 111/82; PULSE 75; RESP 16; TEMP 36.4; O2SAT 97; BMI 31.8
[2025-01-27 09:28] VITALS: BP 129/77; PULSE 72; RESP 16; O2SAT 98
--- NOTE | 2025-01-27 09:33 | EXP.PAIN.PRO ---
Procedure Date: 01/27/25 Time: 09:00 Anesthesiologist:: Anand Pedro CRNA Complications:: None Pre-procedure Diagnosis:: Degenerative disc lumbar spine multilevels. Lumbar radiculopathy. Lumbar spondylosis Post-procedure Diagnosis:: Same. Indications for Procedure:: Patient is a very pleasant 54-year-old female who comes our clinic today for lumbar epidural steroid injection at L3-4 level. Patient describes low lumbar back pain as constant, dull, aching. Patient also reports bilateral hip and leg radicular symptoms at times. She rates her pain 7/10. Procedure Details:: Procedure: Lumbar epidural steroid injection under fluoroscopy Informed consent was obtained and the risks and benefits of the procedure were explained to the patient. The patient was taken to the procedure room and noninvasive monitors placed, including noninvasive blood pressure cuff and pulse oximeter. The back was viewed using C-arm Fluoroscopy and prepped using Chloraprep as a cleansing solution and the L3-4 interspace was palpated. Skin and subcutaneous tissues were anesthetized using lidocaine 1.5% and a 25-gauge needle. After this, an 18-gauge Touhy epidural needle was placed into the L3-4 interspace and advanced using fluoroscopic guidance and loss of resistance to air until the epidural space was encountered. After confirmation of needle placement in the epidural space, with dye, a solution containing normal saline, 3 mL and Depo-Medrol 80 mg were incrementally injected into the lumbar epidural space. The patient tolerated the procedure well with no complications. The patient was observed in the Pain Clinic and then discharged home neurologically intact. Plan and Disposition:: Patient was discharged without incident.
[2025-01-27] MEDS: methylPREDNISolone ACETATE 80MG/ML VIAL 80 MG (09:38)
[2025-01-27 09:39] VITALS: BP 111/82; PULSE 75; RESP 18; O2SAT 97
[2025-01-27 09:47] VITALS: BP 111/82; PULSE 75; RESP 18; O2SAT 97
== END 2025-01-27 09:28 | disposition home or self-care (01) ==
PROVIDERS: PCP Family Medicine; Visit Provider Nurse Anesthetist, Certified Registered
DX: M51.16 Intervertebral disc disorders with radiculopathy, lumbar region (principal); M47.26 Other spondylosis with radiculopathy, lumbar region; Z01.812 Encounter for preprocedural laboratory examination
CPT/HCPCS: 36415; 62323; 85610; J1010

== ENCOUNTER 2025-02-03 07:20 | Outpatient (CLI) | payer OTHER, SELFPAY ==
--- OUTSIDE RECORDS SUMMARY | 2025-02-03 07:22 | XMS_ITS ---
Author Organization Unknown Medications Medication Instructions Effective Dates (start - stop) Status estradiol 1 MG Oral Tablet 06-16T00:00:00.000+00 :00 - Completed estradiol 1 MG Oral Tablet 07-14T:00:00.000+00 :00 - Completed estradiol 1 MG Oral Tablet :00:00.000+00 :00 - Completed estradiol 1 MG Oral Tablet :00:00.000+00 :00 - Completed pregabalin 100 MG Oral Capsule 2 724-82-02D30:00:00.000+00 :00 - Completed pregabalin 100 MG Oral Capsule 2 974-77-31P80:00:00.000+00 :00 - Completed pregabalin 100 MG Oral Capsule 2 750-32-65W56:00:00.000+00 :00 - Completed baclofen 5 MG Oral Tablet 3-0 3-T:00:00.000+00 :00 - Completed baclofen 5 MG Oral Tablet 3-0 -T00:00:00.000+00 :00 - Completed pregabalin 100 MG Oral Capsule 2 170-22-77A97:00:00.000+00 :00 - Completed baclofen 5 MG Oral Tablet 3-0 -T:00:00.000+00 :00 - Completed baclofen 10 MG Oral Tablet 11-14T:00:00.000+00 :00 - Completed pregabalin 100 MG Oral Capsule 2 239-59-35N15:00:00.000+00 :00 - Completed baclofen 10 MG Oral Tablet 09-26T00:00:00.000+00 :00 - Completed pregabalin 100 MG Oral Capsule 2 007-28-51I41:00:00.000+00 :00 - Completed pregabalin 100 MG Oral Capsule 2 493-77-62O88:00:00.000+00 :00 - Completed pregabalin 100 MG Oral Capsule 2 820-00-53P91:00:00.000+00 :00 - Completed baclofen 5 MG Oral Tablet :00:00.000+00 :00 - Completed pregabalin 100 MG Oral Capsule 2 691-03-76W18:00:00.000+00 :00 - Completed pregabalin 100 MG Oral Capsule 2 924-10-81O80:00:00.000+00 :00 - Completed carvedilol 6.25 MG Oral Tablet 2 307-61-40U12:00:00.000+00 :00 - Completed baclofen 10 MG Oral Tablet :00:00.000+00 :00 - Completed pregabalin 100 MG Oral Capsule 2 986-48-56H72:00:00.000+00 :00 - Completed tizanidine 4 MG Oral Tablet 2021:00:00.000+00 :00 - Completed carvedilol 6.25 MG Oral Tablet 2 854-69-40O06:00:00.000+00 :00 - Completed ropinirole 1 MG Oral Tablet 2022:00:00.000+00 :00 - Completed ropinirole 1 MG Oral Tablet 2021:00:00.000+00 :00 - Completed fluconazole 100 MG Oral Tablet 508-86-71B13:00:00.000+00 :00 - Completed warfarin sodium 5 MG Oral Tablet 0997-12-70V10:00:00.000+00 :00 - Completed warfarin sodium 5 MG Oral Tablet 3086-59-49I97:00:00.000+00 :00 - Completed clopidogrel 75 MG Oral Tablet 05-10-06:00:00.000+00 :00 - Completed fluconazole 200 MG Oral Tablet 596-14-02F47:00:00.000+00 :00 - Completed ropinirole 1 MG Oral Tablet 2022:00:00.000+00 :00 - Completed warfarin sodium 2 MG Oral Tablet 8492-65-98L28:00:00.000+00 :00 - Completed losartan potassium 50 MG Oral Tablet 5675-99-73X03:00:00.000+00 :00 - Completed duloxetine 60 MG Delayed Rel ease Oral Capsule 3668-87-74E48:00:00.000+00 :00 - Completed carvedilol 6.25 MG Oral Tablet 2 038-72-71I22:00:00.000+00 :00 - Completed prednisone 20 MG Oral Tablet 12-19-22:00:00.000+00 :00 - Completed clopidogrel 75 MG Oral Tablet 07-12-12:00:00.000+00 :00 - Completed esomeprazole 40 MG Delayed R elease Oral Capsule 4009-86-18N21:00:00.000+00 :00 - Completed warfarin sodium 2 MG Oral Tablet 3178-35-09G61:00:00.000+00 :00 - Completed warfarin sodium 5 MG Oral Tablet 4658-69-55E69:00:00.000+00 :00 - Completed clopidogrel 75 MG Oral Tablet 06-03-01:00:00.000+00 :00 - Completed carvedilol 6.25 MG Oral Tablet 2 686-99-33O08:00:00.000+00 :00 - Completed warfarin sodium 5 MG Oral Tablet 9085-06-27V75:00:00.000+00 :00 - Completed {6 (azithromycin 250 MG Oral Tablet) } Pack 1631-93-80L92:00:00.000+00 :00 - Completed cefdinir 300 MG Oral Capsule 12-15-26:00:00.000+00 :00 - Completed tizanidine 4 MG Oral Tablet 2021:00:00.000+00 :00 - Completed prednisone 5 MG Oral Tablet 2022:00:00.000+00 :00 - Completed fluconazole 200 MG Oral Tablet 2 860-02-14D88:00:00.000+00 :00 - Completed prednisone 5 MG Oral Tablet 2022:00:00.000+00 :00 - Completed prednisone 20 MG Oral Tablet 12-15-16:00:00.000+00 :00 - Completed rivaroxaban 20 MG Oral Table t [Xarelto] 1632-85-53B86:00:00.000+00 :00 - Completed {21 (methylprednisolone 4 MG Oral Tablet) } Pack 7371-88-91O20:00:00.000+00 :00 - Completed spironolactone 50 MG Oral Tablet 9640-15-53T54:00:00.000+00 :00 - Completed spironolactone 50 MG Oral Tablet 1460-29-40E05:00:00.000+00 :00 - Completed spironolactone 50 MG Oral Tablet 7610-84-57T48:00:00.000+00 :00 - Completed duloxetine 60 MG Delayed Rel ease Oral Capsule 4275-76-22U39:00:00.000+00 :00 - Completed prednisone 20 MG Oral Tablet 12-19-18:00:00.000+00 :00 - Completed azithromycin 500 MG Oral Tablet 9502-64-08B33:00:00.000+00 :00 - Completed spironolactone 50 MG Oral Tablet 2784-83-42X61:00:00.000+00 :00 - Completed prednisone 20 MG Oral Tablet 202 12-16-09:00:00.000+00 :00 - Completed prednisone 20 MG Oral Tablet 12-19-10:00:00.000+00 :00 - Completed clopidogrel 75 MG Oral Tablet 06-11-09:00:00.000+00 :00 - Completed duloxetine 60 MG Delayed Rel ease Oral Capsule 2952-98-03P57:00:00.000+00 :00 - Completed tizanidine 4 MG Oral Tablet 2021:00:00.000+00 :00 - Completed duloxetine 60 MG Delayed Rel ease Oral Capsule 3920-48-77Y12:00:00.000+00 :00 - Completed rivaroxaban 20 MG Oral Table t [Xarelto] 5141-93-61N48:00:00.000+00 :00 - Completed hydroxychloroquine sulfate 2 00 MG Oral Tablet 1262-63-18O41:00:00.000+00 :00 - Completed ropinirole 1 MG Oral Tablet 2021:00:00.000+00 :00 - Completed esomeprazole 40 MG Delayed R elease Oral Capsule 4942-34-32D05:00:00.000+00 :00 - Completed torsemide 20 MG Oral Tablet 2022:00:00.000+00 :00 - Completed cyclobenzaprine hydrochlorid e 10 MG Oral Tablet 2902-64-54P76:00:00.000+00 :00 - Completed torsemide 20 MG Oral Tablet 2022:00:00.000+00 :00 - Completed gabapentin 400 MG Oral Capsule 2 728-14-33R23:00:00.000+00 :00 - Completed hydroxychloroquine sulfate 2 00 MG Oral Tablet 2143-68-47X46:00:00.000+00 :00 - Completed losartan potassium 50 MG Oral Tablet 9712-44-18O63:00:00.000+00 :00 - Completed torsemide 20 MG Oral Tablet 2021:00:00.000+00 :00 - Completed torsemide 20 MG Oral Tablet 2021:00:00.000+00 :00 - Completed hydroxychloroquine sulfate 2 00 MG Oral Tablet 9731-75-85H00:00:00.000+00 :00 - Completed esomeprazole 40 MG Delayed R elease Oral Capsule 1833-91-43A24:00:00.000+00 :00 - Completed rivaroxaban 20 MG Oral Table t [Xarelto] 2160-66-92H60:00:00.000+00 :00 - Completed gabapentin 400 MG Oral Capsule 2 311-12-76Z71:00:00.000+00 :00 - Completed rivaroxaban 20 MG Oral Table t [Xarelto] 4674-83-98H12:00:00.000+00 :00 - Completed losartan potassium 50 MG Oral Tablet 7166-60-87H87:00:00.000+00 :00 - Completed hydroxychloroquine sulfate 2 00 MG Oral Tablet 7851-48-04U49:00:00.000+00 :00 - Completed esomeprazole 40 MG Delayed R elease Oral Capsule 5917-58-36G13:00:00.000+00 :00 - Completed hydroxychloroquine sulfate 2 00 MG Oral Tablet 5119-27-60L28:00:00.000+00 :00 - Completed ropinirole 1 MG Oral Tablet 2021:00:00.000+00 :00 - Completed ropinirole 1 MG Oral Tablet 2021:00:00.000+00 :00 - Completed losartan potassium 50 MG Oral Tablet 6099-46-56N93:00:00.000+00 :00 - Completed acetaminophen 325 MG / hydro codone bitartrate 10 MG Oral Tablet 2481-32-23D70:00:00.000+0 0 :00 - Completed acetaminophen 325 MG / hydro codone bitartrate 10 MG Oral Tablet 8892-35-62W80:00:00.000+0 0 :00 - Completed acetaminophen 325 MG / hydro codone bitartrate 10 MG Oral Tablet 1892-42-56K02:00:00.000+0 0 :00 - Completed acetaminophen 325 MG / hydro codone bitartrate 10 MG Oral Tablet 0262-21-29F20:00:00.000+0 0 :00 - Completed acetaminophen 325 MG / hydro codone bitartrate 10 MG Oral Tablet 7457-89-71Q30:00:00.000+0 0 :00 - Completed acetaminophen 325 MG / hydro codone bitartrate 10 MG Oral Tablet 2790-99-04G96:00:00.000+0 0 :00 - Completed acetaminophen 325 MG / hydro codone bitartrate 10 MG Oral Tablet 3925-91-53K17:00:00.000+0 0 :00 - Completed acetaminophen 325 MG / hydro codone bitartrate 10 MG Oral Tablet 1140-84-57J52:00:00.000+0 0 :00 - Completed acetaminophen 325 MG / hydro codone bitartrate 10 MG Oral Tablet 3646-83-03T13:00:00.000+0 0 :00 - Completed acetaminophen 325 MG / hydro codone bitartrate 10 MG Oral Tablet 7834-75-84I37:00:00.000+0 0 :00 - Completed Patient Care team information Name Category Status Period Participants - - Proposed period not known -
--- NOTE | 2025-02-03 07:30 | MR_ITS ---
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 FELL 8 WEEKS AGO. LATERAL SIDED FOOT PAIN. COMPARISON: None FINDINGS: Multiplanar MR imaging of the left foot was performed without contrast. The bony structures are intact without evidence of fracture, bone bruise or marrow edema. There is a tiny focus of increased signal involving the insertion of the distal peroneus brevis tendon. The remainder of the flexor and extensor tendons are unremarkable. The musculature is intact. The plantar aponeurosis is intact. No soft tissue mass or cyst is identified. IMPRESSION: Tiny focus of increased signal involving the insertion of the distal peroneus brevis tendon that may represent a small partial tear. Reviewed, Interpreted and Dictated by David Bee MD Transcribed by Kelly Masters Authenticated and [facility]
[2025-02-03 08:55] LABS: Basophils # 0.1 K/mm3 (0-0.2); Basophils % 1.4 % (0.1-2.0); Eosinophils # 0.6 Kmm3 (0.0-0.4); Eosinophils % 7.5 % (0.1-12.0); Hematocrit 39.7 % (37.0-47.0); Hemoglobin 12.8 g/dL (12.2-16.2); Lymphocytes # 2.4 K/mm3 (0.7-4.5); Mean Corpuscular HGB Conc 32.2 g/dL (31.8-35.4); Mean Corpuscular Hemoglobin 28.8 pg (27.0-31.2); Mean Corpuscular Volume 89.2 fl (81-99); Mean Platelet Volume 10.8 fl (7.4-10.4); Monocytes # 0.5 K/mm3 (0.1-1.0); Monocytes % 6.6 % (1.7-9.3); Neutrophils # 4.1 K/mm3 (1.8-7.8); Neutrophils % 53.2 % (37.0-80.0); Nucleated Red Blood Cells # 0 10^3/uL; Nucleated Red Blood Cells % 0 %; Platelet Count 315 K/mm3 (142-424); Red Blood Count 4.45 M/mm3 (4.20-5.40); Red Cell Distribution Width 13.1 % (11.5-17.5); Red Cell Distribution Width-SD 42.9 fL; White Blood Count 7.8 K/mm3 (4.8-10.8)
[2025-02-03 09:10] LABS: INR 1.67 (0.9-1.1); Prothrombin Time 17.8 seconds (10.1-12.5)
[2025-02-03 09:15] LABS: Chloride 104 mmol/L (98-107); Potassium 4.1 mmoL/L (3.5-5.1); Sodium 140 mmol/L (136-145)
[2025-02-03 09:18] LABS: Alanine Aminotransferase 51 U/L (12-78); Albumin/Globulin Ratio 1.3 (1.1-1.8); Alkaline Phosphatase 98 U/L (38-126); Anion Gap 8.1 mEq/L (5-15); Aspartate Amino Transferase 55 U/L (14-36); Bilirubin,Total 0.3 mg/dl (0.2-1.3); Blood Urea Nitrogen 9 mg/dl (7-17); Calcium 8.6 mg/dl (8.4-10.2); Carbon Dioxide 32 mmol/L (22.0-30.0); Estimated Glomerular Filt Rate 129 ml/min (>60); GFR (African American) 156 ML/MIN (>60); Globulin 3.1 g/dL (1.3-3.2); Glucose 91 mg/dl (74-100); Total Protein,Serum 7.1 g/dl (6.3-8.2)
== END 2025-02-03 23:59 | disposition home or self-care (01) ==
LOC: RAD 07:21
PROVIDERS: Obstetrics & Gynecology; PCP Family Medicine; Visit Provider Podiatrist
DX: M79.672 Pain in left foot (principal); S86.312A Strain of muscle(s) and tendon(s) of peroneal muscle group at lower leg level, left leg, initial encounter; S92.302G Fracture of unspecified metatarsal bone(s), left foot, subsequent encounter for fracture with delayed healing; N95.1 Menopausal and female climacteric states; Z79.890 Hormone replacement therapy
CPT/HCPCS: 36415; 73718; 80053; 85025; 85610

== ENCOUNTER 2025-02-09 09:45 | Outpatient (POV) | payer OTHER, SELFPAY ==
[2025-02-09 10:07] VITALS: BP 115/71; PULSE 71; RESP 18; O2SAT 100; BMI 31.8
--- NOTE | 2025-02-09 10:09 | A.OFFVIS_ITS ---
[facility] Disclaimer: The information contained in this section may have been updated after the patient was seen, as this information can be updated by other users. Medical History Chronic anticoagulation Calculus of ureterovesical junction (UVJ) Facial paresthesia Morbid obesity with body mass index (BMI) of 40.0 to 49.9 TIA (transient ischemic attack) Acute CVA (cerebrovascular accident) Left leg DVT Vasomotor symptoms due to menopause Stroke Lupus Asthma History of gastroesophageal reflux (GERD) Hypertension Dizziness Edema History of TIA (transient ischemic attack) History of DVT (deep vein thrombosis) Surgical History H/O gastric bypass History of hysterectomy History of section History of appendectomy History of cholecystectomy Family History Other Coronary artery disease Diabetes Social History Smoking Status: Never smoker second hand exposure: No alcohol intake: never substance use type: denies use current occupational status: employed Travel in the last 8 weeks: None household members: spouse housing: house caffeine: Yes PM Subjective & Objective Subjective Subjective:: Patient is a pleasant 54-year-old female who presents today for medication refill and follow-up. Today she rates her pain a 7 out of 10. Patient did just recently had the lumbar epidural steroid injection L3-L4 on 415 however felt like it really did not seem to make much difference. Patient states from her last appointment that she is still having falls that she just feels like on random occasions that her legs go to [employer] . Patient states she notices that it is worse going up stairs but that she is continuing to feel like her overall legs are progressively worsening. Patient does state that she ended up seeing orthopedics and that they do have concerns for a torn rotator cuff. Patient states that she failed all of her range of motion movements during that visit and that she is scheduled for a MRI of that shoulder on the sixth. She does present today with the sling on that arm. Patient does also state that she ended up continuing to have a worsening limp and feels like she is causing pain in other areas but ended up having some imaging of that foot and it did show a tear. Patient states that she is scheduled to see podiatry back on the fifth to see if there is anything that can be done for the tear. Patient does state that her primary care is trying to get her into see neurosurgery at . Patient is currently managed with [place] 10 mg 4 times a day, pregabalin 100 mg 3 times a day and baclofen 10 mg 4 times a day from our office. She denies any side effects but does state that the pain currently is just so much worse that she does not have enough medicine to give improvement throughout the day. Her Loi has been reviewed and is appropriate. Review of Systems: General: No recent weight changes, no fever, no sleep disturbances Respiratory: No cough, no shortness of air, no recurring pulmonary infections Cardiovascular/peripheral vascular: No chest pain, no palpitations, no edema, no shortness of breath Gastrointestinal: No new onset incontinence, normal bowel movements reported Genitourinary: No new onset incontinence Musculoskeletal: Left shoulder pain, chronic low back and leg pain, foot pain Psychiatric: [Normal mood/affect] Neurological: [Denies weakness in extremities], [denies balance issues] Pain at rest (0-10 scale): 7 Objective Objective:: Physical Exam: General: Alert and oriented x3, no acute distress, pleasant and cooperative Lungs: Respirations even and unlabored, symmetrical chest expansion Eyes: PERRL Musculoskeletal: Flexion and extension of lumbar [spine] somewhat guarded secondary to pain, [antalgic gait noted] Neurological: Speech clear, no gross sensory deficit Has patient had previous pain injection?: Yes Percent improvement in pain since last injection: Minimal Conservative treatment options previously tried: Home exercise plan Length of treatment: Longer than 12 weeks Meds Home Medications and Allergies Home Medications ?Medication ?Instructions ?Recorded ?Confirmed ?Type cyanocobalamin (vitamin B-12) 1,000 mcg SQ WEEKLY 01/01/24 02/04/25 History 1,000 mcg/mL injection solution hydroxychloroquine 200 mg tablet 200 mg PO BID 06/30/24 02/04/25 History clobetasol 0.05 % topical cream 1 applic topical BID #60 grams 07/30/24 02/04/25 Rx prochlorperazine maleate 10 mg 10 mg PO Q8H PRN nausea and 09/18/24 02/04/25 Rx tablet (Compazine) vomiting #30 tabs ondansetron 4 mg disintegrating 4 mg PO BID PRN nausea and vomiting 10/16/24 02/04/25 History tablet albuterol sulfate 90 mcg/actuation 2 puff inhalation QID PRN 11/10/24 02/04/25 Rx aerosol inhaler shortness of breath or wheezing #8.5 grams aspirin 81 mg tablet,delayed 162 mg PO DAILY 11/10/24 02/04/25 History release dapagliflozin propanediol 10 mg 10 mg PO DAILY #90 tabs 11/10/24 02/04/25 Rx tablet (Farxiga) alendronate 10 mg tablet 10 mg PO DAILY 90 days #90 tabs 11/26/24 02/04/25 Rx promethazine 12.5 mg tablet 12.5 mg PO TID PRN nausea and 12/09/24 02/04/25 Rx vomiting #12 tabs warfarin 5 mg tablet 2.5 mg PO MOWEFR 12/22/24 02/04/25 History warfarin 5 mg tablet 5 mg PO SUTUTHSA 12/22/24 02/04/25 History levofloxacin 500 mg tablet 500 mg PO DAILY #10 tabs 12/25/24 02/04/25 Rx desvenlafaxine succinate 50 mg 50 mg PO DAILY #90 tabs 12/29/24 02/04/25 Rx tablet,extended release 24 hr (Pristiq) promethazine 25 mg tablet 25 mg PO Q6H PRN nausea and 01/07/25 02/04/25 Rx vomiting #90 tabs baclofen 10 mg tablet 10 mg PO TID #90 tabs 01/19/25 02/04/25 Rx hydrocodone 10 mg-acetaminophen 1 tab PO Q6HP PRN MILD TO MODERATE 01/19/25 02/04/25 Rx 325 mg tablet PAIN #120 tabs pregabalin 100 mg capsule 100 mg PO TID #90 caps 01/19/25 02/04/25 Rx estradiol 0.01% (0.1 mg/gram) 1 appful vaginal DAILY 30 days 01/26/25 02/04/25 Rx vaginal cream (Estrace) #42.5 grams fezolinetant 45 mg tablet (Veozah) 45 mg PO DAILY #30 tabs 02/02/25 02/04/25 Rx promethazine 25 mg tablet 25 mg PO Q6H PRN nausea and 02/04/25 02/04/25 Rx vomiting #60 tabs New Prescriptions to Start Prescriptions: Allergies Allergy/AdvReac Type Severity Reaction Status Date / Time gum mastic (From MASTISOL Allergy Unknown Unknown Verified 02/04/25 14:58 ADHESIVE) allergy reaction measles, mumps, and rubella Allergy Unknown Unknown Verified 02/04/25 14:58 vaccine (MEASLES, MUMPS, AND allergy RUBELLA VACCINE) reaction methyl salicylate (From Allergy Unknown Unknown Verified 02/04/25 14:58 MASTISOL ADHESIVE) allergy reaction Penicillins (PENICILLINS) Allergy Unknown Hives Verified 02/04/25 14:58 storax (From MASTISOL Allergy Unknown Unknown Verified 02/04/25 14:58 ADHESIVE) allergy reaction Sulfa (Sulfonamide Allergy Unknown Hives Verified 02/04/25 14:58 Antibiotics) (SULFA (SULFONAMIDE ANTIBIOTICS)) sumatriptan (From IMITREX) Allergy Unknown Anaphylaxis Verified 02/04/25 14:58 sulfamethoxazole (From Allergy Unknown Verified 02/04/25 14:58 Bactrim) allergy reaction trimethoprim (From Bactrim) Allergy Unknown Verified 02/04/25 14:58 allergy reaction adhesive AdvReac Mild Rash Verified 02/04/25 14:58 Assessment and Plan *Assessment and plan (1) Left foot pain: Status: Acute Category: Medical Code(s): M79.672 - Pain in left foot (2) Left shoulder pain: Status: Acute Category: Medical Code(s): M25.512 - Pain in left shoulder (3) Degenerative disc disease: Status: Chronic Qualifiers: Spinal region: lumbar Qualified Code(s): M51.36 - Other intervertebral disc degeneration, lumbar region Category: Medical (4) Lumbar radiculopathy: Status: Chronic Category: Medical Code(s): M54.16 - Radiculopathy, lumbar region Plan I did discuss with the patient due to her worsening symptoms and multiple areas of tears including her left shoulder and left foot that I will increase her Nor co to 5 times a day and pregabalin to 4 times a day and provide a 1 month supply of this medication. I will make sure she has refills on her baclofen. I did discuss with patient if she is unable to get in for referral to [facility] that she is more than welcome to call our office and we will try and send a referral to another neurosurgeon. Patient has seen neurosurgery at [place] and was told she was not a surgical candidate. Patient will return to clinic in 1 month for reevaluation of symptoms and plan of care. Risks and benefits of the medication have been explained in detail to the patient. The patient does understand the risk of dependence on the medication when given over a prolonged period. Patient has been advised of risks of oversedation with the prescribed medica tion. Narcan has been offered to the paitent in the event of oversedation. Patient has been advised that a family member should also be educated regarding administration of Narcan. The patient has been advised to consult with his/her primary care provider and pharmacist regarding drug-drug interaction of medications currently prescribed. Patient has been prescribed a controlled substance after being counseled on the medication, medication safety, and possible side effects. Opioid contract was reviewed and signed by the patient, and that they have agreed to all of the terms set forth by our compliance program. A UDS is needed to verify patient's compliance with our office pain contract. This is ordered based off specific treatments related to chronic pain with the potential to abuse certain medications. Patient has been instructed to contact the clinic with any concerns before the next appointment. Dr. Venegas has reviewed this note and agrees with this plan of care. This note was dictated using voice recognition software and make contain errors or omissions.
== END 2025-02-09 23:59 | disposition home or self-care (01) ==
PROVIDERS: PCP Family Medicine; Visit Provider Nurse Practitioner Family
DX: M79.672 Pain in left foot (principal); M25.512 Pain in left shoulder; M51.16 Intervertebral disc disorders with radiculopathy, lumbar region; Z79.899 Other long term (current) drug therapy
CPT/HCPCS: 36415; 99212; G0463

== ENCOUNTER 2025-02-11 07:39 | Outpatient (CLI) | payer OTHER, SELFPAY ==
--- OUTSIDE RECORDS SUMMARY | 2025-02-11 07:41 | XMS_ITS | Data Portability ---
Author Organization [facility] SHASHI Rossi [place] Address [address] [place] [address] Care Team Providers Care Irrigation Service Technician Name Role Phone SANGEETA BENOIT Primary Care [...] 6 weeks once imaging has been completed. [email or web address] Not available 05/21/2024 11:00:40 07/02/2024 07/02/2024 Kassi [...] the patient to obtain a disc from [facility] and bring the disc to us. Once we have the disc, I will have Dr. Walker review the imaging and contact the patient. I have scheduled her for a follow-up appointment in 6 weeks as well. [email or web address] Not available 07/02/2024 11:48:35 10/17/2024 10/17/2024 Kassi [...] headaches, consider further evaluation by headache specialist. Not available 10/17/2024 12:21:54 Plan of Treatment Reminders Order Date Submit Date Provider Last Modified By Organization Details Last Modified Time Details Appointments None recorded. Lab None recorded. Referral None recorded. Procedures None recorded. Surgeries None recorded. Imaging None recorded. Medication Orders cyclobenzap rine 10 mg tablet 2023 024 [facility], [address] [place] [address], [phone], 11:01:23 Patient TargetsNo targets recorded. Patient InstructionsNo instructions recorded. Reason for Referral None Reported. Results Created Date Observation Date Name Description Value Unit Range Abnormal Flag Note LastModifiedBy Organization Detail LastModifiedTime 06/12/2006/11/2024 MRI, lumba r spine , w/wo contr ast No observ ation record ed. [email or web address] Not Available 2023 11:20:48 08/22/20 24 08/19/2024 MRI, cervi claribel spine , w/wo contr ast No observ ation record ed. Not Available 2024 16:06:42 Result Notes None recorded. Procedures Surgical History Date Name Laterality Status Provider Name and Address Organization Details Recorded Time Back Surgery completed [facility] 05/21/2024 10:17:19 section completed [facility] 05/21/2024 10:17:33 Appendectomy completed [facility] 05/21/2024 10:17:40 Cholecystectomy completed [facility] 05/21/2024 10:17:48 hysterectomy completed [facility] 05/21/2024 10:17:58 Gastric bypass for obesity completed [facility] 05/21/2024 10:18:08 Imaging Results Imaging Date Name Status LastModified by Organiz ation Details LastModified Time 06/11/2024 MRI, lumbar spine, w/wo contrast completed [email or web address] Information not available 06/12/2024 11:20:48 08/19/2024 MRI, cervical spine, w/wo contrast completed [email or web address] Information not available 01/27/2025 16:06:42 Procedure Notes None recorded. Medical Equipment None [...] Updated DateTime 05/21/2024 160.02 cm 33.7 kg/m2 23048.55 g 130 mm[Hg] 82 mm[Hg] [facility] 4 10:25:23 Date Recorded Body height Body mass index (BMI) Body weight Systolic blood pressure Diastolic blood pressure Provider Name and Address Organization Details Last Updated DateTime 07/02/2024 160.02 cm 33.7 kg/m2 97856.55 g 126 mm[Hg] 82 mm[Hg] [facility] 4 11:21:39 Date Recorded Body height Body mass index (BMI) Body weight Systolic blood pressure Diastolic blood pressure Provider Name and Address Organization Details Last Updated DateTime 10/17/2024 160.02 cm 33.7 kg/m2 75784.55 g 122 mm[Hg] 82 mm[Hg] [facility] 5 09:17:07 Social History None recorded. Functional [...] SNOMED-CT Code Diagnosis ICD10 Code Diagnosis Note [id number] SKIP KAUFMAN PA-C NEUROSURG [facility] [address] [place] [address] 05/21/2024 09:59:46 05/23/2024 14:19:21 Lumbar radiculopathy [id number] M54.16 [id number] SKIP KAUFMAN PA-C NEUROSURG [facility] [address] [place] [address] 07/02/2024 10:12:30 07/07/2024 10:32:51 Lumbar radiculopathy [id number] M54.16 Low back pain [id number] M54.50 [id number] VÍCTOR WALKER MD NEUROSURG [facility] [address] [place] [address] 10/17/2024 09:09:50 10/18/2024 05:47:25 Headache [id number] R51.9 Health Concerns Section Related Observation LastModified by Organization Detai ls LastModified Time None Recorded Concern Status LastModified by Organization Details LastModified Time None Recorded Advance Directives Directive None Recorded Payers Encounter Date Sequence Insurance Name Policy Number Policy Junior Covered Member ID Junior Member ID Guarantor Name 05/21/2024 1 [employer] (EPO) [id number] Kassi Claudio [id number] Kassi Claudio 07/02/2024 1 [employer] (EPO) [id number] Kassi Claudio [id number] Kassi White 10/17/2024 1 [employer] (EPO) [id number] Kassi Claudio [id number] Kassi Claudio Notes Date Note Type [...] on warfarin. SKIP KAUFMAN PA-C [address] [place], [address], [facility] 05/21/2024 11:01:32 4 text/html Kassi Claudio [...] resolved. She had her MRI completed at [facility] on 06/11/2024 but did not obtain a disc with the MRI images to bring to her appointment today. SKIP KAUFMAN PA-C [address] [place], [address], [facility] 07/02/2024 11:49:01 5 text/html Kassi Claudio [...] massager seems to help. VÍCTOR WALKER MD [address] [place] [address], [phone], [facility] 10/17/2024 12:23:13 OBGyn Episode No OBEpisode recorded.
--- OUTSIDE RECORDS SUMMARY | 2025-02-11 07:41 | XMS_ITS ---
Author Organization Unknown Medications Medication Instructions Effective Dates (start - stop) Status estradiol 1 MG Oral Tablet 06-16T00:00:00.000+00 :00 - Completed estradiol 1 MG Oral Tablet 07-14T:00:00.000+00 :00 - Completed estradiol 1 MG Oral Tablet 08-07T:00:00.000+00 :00 - Completed estradiol 1 MG Oral Tablet :00:00.000+00 :00 - Completed pregabalin 100 MG Oral Capsule 2 962-81-94E85:00:00.000+00 :00 - Completed pregabalin 100 MG Oral Capsule 2 185-36-31X25:00:00.000+00 :00 - Completed pregabalin 100 MG Oral Capsule 2 286-37-76O69:00:00.000+00 :00 - Completed baclofen 5 MG Oral Tablet 3-0 3-T:00:00.000+00 :00 - Completed baclofen 5 MG Oral Tablet 3-0 -T00:00:00.000+00 :00 - Completed pregabalin 100 MG Oral Capsule 2 368-80-52J55:00:00.000+00 :00 - Completed baclofen 5 MG Oral Tablet 3-0 -T:00:00.000+00 :00 - Completed baclofen 10 MG Oral Tablet 11-14T:00:00.000+00 :00 - Completed pregabalin 100 MG Oral Capsule 2 217-53-52C90:00:00.000+00 :00 - Completed baclofen 10 MG Oral Tablet 09-26T00:00:00.000+00 :00 - Completed pregabalin 100 MG Oral Capsule 2 076-38-79K72:00:00.000+00 :00 - Completed pregabalin 100 MG Oral Capsule 2 590-21-27Z96:00:00.000+00 :00 - Completed pregabalin 100 MG Oral Capsule 2 752-78-81R83:00:00.000+00 :00 - Completed baclofen 5 MG Oral Tablet :00:00.000+00 :00 - Completed pregabalin 100 MG Oral Capsule 2 928-92-51J81:00:00.000+00 :00 - Completed pregabalin 100 MG Oral Capsule 2 040-36-75K26:00:00.000+00 :00 - Completed carvedilol 6.25 MG Oral Tablet 2 936-88-97V72:00:00.000+00 :00 - Completed baclofen 10 MG Oral Tablet :00:00.000+00 :00 - Completed pregabalin 100 MG Oral Capsule 2 167-74-57I32:00:00.000+00 :00 - Completed tizanidine 4 MG Oral Tablet 2021:00:00.000+00 :00 - Completed carvedilol 6.25 MG Oral Tablet 2 805-46-44V48:00:00.000+00 :00 - Completed ropinirole 1 MG Oral Tablet 2022:00:00.000+00 :00 - Completed ropinirole 1 MG Oral Tablet 2021:00:00.000+00 :00 - Completed fluconazole 100 MG Oral Tablet 416-14-58E13:00:00.000+00 :00 - Completed warfarin sodium 5 MG Oral Tablet 8705-82-75Q83:00:00.000+00 :00 - Completed warfarin sodium 5 MG Oral Tablet 9536-10-98T85:00:00.000+00 :00 - Completed clopidogrel 75 MG Oral Tablet 05-10-06:00:00.000+00 :00 - Completed fluconazole 200 MG Oral Tablet 383-51-46G29:00:00.000+00 :00 - Completed ropinirole 1 MG Oral Tablet 2022:00:00.000+00 :00 - Completed warfarin sodium 2 MG Oral Tablet 8597-55-91K73:00:00.000+00 :00 - Completed losartan potassium 50 MG Oral Tablet 7704-38-36B09:00:00.000+00 :00 - Completed duloxetine 60 MG Delayed Rel ease Oral Capsule 1617-42-07O18:00:00.000+00 :00 - Completed carvedilol 6.25 MG Oral Tablet 2 633-36-54U05:00:00.000+00 :00 - Completed prednisone 20 MG Oral Tablet 12-19-22:00:00.000+00 :00 - Completed clopidogrel 75 MG Oral Tablet 07-12-12:00:00.000+00 :00 - Completed esomeprazole 40 MG Delayed R elease Oral Capsule 1749-93-64M08:00:00.000+00 :00 - Completed warfarin sodium 2 MG Oral Tablet 6812-89-51V48:00:00.000+00 :00 - Completed warfarin sodium 5 MG Oral Tablet 7489-19-47Q17:00:00.000+00 :00 - Completed clopidogrel 75 MG Oral Tablet 06-03-01:00:00.000+00 :00 - Completed carvedilol 6.25 MG Oral Tablet 2 798-68-62Z86:00:00.000+00 :00 - Completed warfarin sodium 5 MG Oral Tablet 0665-94-16H85:00:00.000+00 :00 - Completed {6 (azithromycin 250 MG Oral Tablet) } Pack 1783-97-80R22:00:00.000+00 :00 - Completed cefdinir 300 MG Oral Capsule 12-15-26:00:00.000+00 :00 - Completed tizanidine 4 MG Oral Tablet 2021:00:00.000+00 :00 - Completed prednisone 5 MG Oral Tablet 2022:00:00.000+00 :00 - Completed fluconazole 200 MG Oral Tablet 2 529-42-22L63:00:00.000+00 :00 - Completed prednisone 5 MG Oral Tablet 2022:00:00.000+00 :00 - Completed prednisone 20 MG Oral Tablet 12-15-16:00:00.000+00 :00 - Completed rivaroxaban 20 MG Oral Table t [Xarelto] 0013-35-11E34:00:00.000+00 :00 - Completed {21 (methylprednisolone 4 MG Oral Tablet) } Pack 6187-61-36Z66:00:00.000+00 :00 - Completed spironolactone 50 MG Oral Tablet 7164-78-42E42:00:00.000+00 :00 - Completed spironolactone 50 MG Oral Tablet 2495-88-91I36:00:00.000+00 :00 - Completed spironolactone 50 MG Oral Tablet 9995-93-86K38:00:00.000+00 :00 - Completed duloxetine 60 MG Delayed Rel ease Oral Capsule 9682-82-56L02:00:00.000+00 :00 - Completed prednisone 20 MG Oral Tablet 12-19-18:00:00.000+00 :00 - Completed azithromycin 500 MG Oral Tablet 8452-54-70X72:00:00.000+00 :00 - Completed spironolactone 50 MG Oral Tablet 5707-20-98N76:00:00.000+00 :00 - Completed prednisone 20 MG Oral Tablet 202 12-16-09:00:00.000+00 :00 - Completed prednisone 20 MG Oral Tablet 12-19-10:00:00.000+00 :00 - Completed clopidogrel 75 MG Oral Tablet 06-11-09:00:00.000+00 :00 - Completed duloxetine 60 MG Delayed Rel ease Oral Capsule 0860-56-24D06:00:00.000+00 :00 - Completed tizanidine 4 MG Oral Tablet 2021:00:00.000+00 :00 - Completed duloxetine 60 MG Delayed Rel ease Oral Capsule 6168-79-83N58:00:00.000+00 :00 - Completed rivaroxaban 20 MG Oral Table t [Xarelto] 5948-56-48F29:00:00.000+00 :00 - Completed hydroxychloroquine sulfate 2 00 MG Oral Tablet 8608-61-41R28:00:00.000+00 :00 - Completed ropinirole 1 MG Oral Tablet 2021:00:00.000+00 :00 - Completed esomeprazole 40 MG Delayed R elease Oral Capsule 8459-38-92W85:00:00.000+00 :00 - Completed torsemide 20 MG Oral Tablet 2022:00:00.000+00 :00 - Completed cyclobenzaprine hydrochlorid e 10 MG Oral Tablet 2183-49-28G77:00:00.000+00 :00 - Completed torsemide 20 MG Oral Tablet 2022:00:00.000+00 :00 - Completed gabapentin 400 MG Oral Capsule 2 892-45-31O80:00:00.000+00 :00 - Completed hydroxychloroquine sulfate 2 00 MG Oral Tablet 9401-40-68R71:00:00.000+00 :00 - Completed losartan potassium 50 MG Oral Tablet 9508-02-28O78:00:00.000+00 :00 - Completed torsemide 20 MG Oral Tablet 2021:00:00.000+00 :00 - Completed torsemide 20 MG Oral Tablet 2021:00:00.000+00 :00 - Completed hydroxychloroquine sulfate 2 00 MG Oral Tablet 6996-28-03L42:00:00.000+00 :00 - Completed esomeprazole 40 MG Delayed R elease Oral Capsule 5779-08-41E37:00:00.000+00 :00 - Completed rivaroxaban 20 MG Oral Table t [Xarelto] 7749-43-00J47:00:00.000+00 :00 - Completed gabapentin 400 MG Oral Capsule 2 695-63-01B18:00:00.000+00 :00 - Completed rivaroxaban 20 MG Oral Table t [Xarelto] 9066-67-91V59:00:00.000+00 :00 - Completed losartan potassium 50 MG Oral Tablet 1887-56-07L75:00:00.000+00 :00 - Completed hydroxychloroquine sulfate 2 00 MG Oral Tablet 0006-84-12S82:00:00.000+00 :00 - Completed esomeprazole 40 MG Delayed R elease Oral Capsule 3400-43-36G08:00:00.000+00 :00 - Completed hydroxychloroquine sulfate 2 00 MG Oral Tablet 8680-23-85A88:00:00.000+00 :00 - Completed ropinirole 1 MG Oral Tablet 2021:00:00.000+00 :00 - Completed ropinirole 1 MG Oral Tablet 2021:00:00.000+00 :00 - Completed losartan potassium 50 MG Oral Tablet 1466-01-23J58:00:00.000+00 :00 - Completed acetaminophen 325 MG / hydro codone bitartrate 10 MG Oral Tablet 6609-19-62P81:00:00.000+0 0 :00 - Completed acetaminophen 325 MG / hydro codone bitartrate 10 MG Oral Tablet 8730-85-26W22:00:00.000+0 0 :00 - Completed acetaminophen 325 MG / hydro codone bitartrate 10 MG Oral Tablet 3610-35-08K64:00:00.000+0 0 :00 - Completed acetaminophen 325 MG / hydro codone bitartrate 10 MG Oral Tablet 3905-70-79S31:00:00.000+0 0 :00 - Completed acetaminophen 325 MG / hydro codone bitartrate 10 MG Oral Tablet 2479-07-70F15:00:00.000+0 0 :00 - Completed acetaminophen 325 MG / hydro codone bitartrate 10 MG Oral Tablet 3506-08-04R99:00:00.000+0 0 :00 - Completed acetaminophen 325 MG / hydro codone bitartrate 10 MG Oral Tablet 3677-43-17Q77:00:00.000+0 0 :00 - Completed acetaminophen 325 MG / hydro codone bitartrate 10 MG Oral Tablet 6908-61-06C42:00:00.000+0 0 :00 - Completed acetaminophen 325 MG / hydro codone bitartrate 10 MG Oral Tablet 4675-83-91K93:00:00.000+0 0 :00 - Completed acetaminophen 325 MG / hydro codone bitartrate 10 MG Oral Tablet 7590-60-07Y70:00:00.000+0 0 :00 - Completed Patient Care team information Name Category Status Period Participants - - Proposed period not known -
--- NOTE | 2025-02-11 08:00 | CT_ITS ---
FINAL REPORT CLINICAL HISTORY: Hemturia COMPARISON: 01/01/2025 FINDINGS: On the preinfusion images, there are tiny nonobstructing stones in the renal collecting systems bilaterally measuring about 2 mm. Postoperative changes are noted in the stomach and proximal small bowel. The liver is unremarkable. The gallbladder is absent. The spleen, pancreas, adrenal glands, and kidneys are unremarkable. There are are multiple subcutaneous nodules in the anterior pelvic wall measuring up to 1.6 cm which are new since the previous study and may be injection sites. The appendix is not seen. The uterus is absent. IMPRESSION: Tiny nonobstructing stones. Prior gastric bypass. New nodules in subcutaneous soft tissues may be due to injection sites. Reviewed, Interpreted and Dictated by David Bee MD Transcribed by Aruna Bazzi Authenticated and . [facility]
[2025-02-11] MEDS: SODIUM CHLORIDE 0.9% 10ML SYR (RAD ONLY) 10 ML IV (08:23)
[2025-02-11] MEDS: IOPAMIDOL-370 (76%);100ML BOTTLE 75 ML IV (08:23)
== END 2025-02-11 09:00 ==
LOC: RAD 07:40
PROVIDERS: PCP Family Medicine; Visit Provider Urology
DX: R31.9 Hematuria, unspecified (principal); G45.9 Transient cerebral ischemic attack, unspecified; Z79.01 Long term (current) use of anticoagulants
CPT/HCPCS: 74178; 85610; 99211; G0463; Q9967

== ENCOUNTER 2025-02-17 07:12 | Outpatient (CLI) | payer OTHER, SELFPAY ==
--- OUTSIDE RECORDS SUMMARY | 2025-02-17 07:13 | XMS_ITS ---
Author Organization Unknown Medications Medication Instructions Effective Dates (start - stop) Status estradiol 1 MG Oral Tablet 06-16T00:00:00.000+00 :00 - Completed estradiol 1 MG Oral Tablet 07-14T:00:00.000+00 :00 - Completed estradiol 1 MG Oral Tablet :00:00.000+00 :00 - Completed estradiol 1 MG Oral Tablet :00:00.000+00 :00 - Completed pregabalin 100 MG Oral Capsule 2 204-96-35Q87:00:00.000+00 :00 - Completed pregabalin 100 MG Oral Capsule 2 997-68-82T18:00:00.000+00 :00 - Completed pregabalin 100 MG Oral Capsule 2 046-82-43J27:00:00.000+00 :00 - Completed baclofen 5 MG Oral Tablet 3-0 3-T:00:00.000+00 :00 - Completed baclofen 5 MG Oral Tablet 3-0 -T00:00:00.000+00 :00 - Completed pregabalin 100 MG Oral Capsule 2 812-11-96X20:00:00.000+00 :00 - Completed baclofen 5 MG Oral Tablet 3-0 -T:00:00.000+00 :00 - Completed baclofen 10 MG Oral Tablet 11-14T:00:00.000+00 :00 - Completed pregabalin 100 MG Oral Capsule 2 740-94-32G19:00:00.000+00 :00 - Completed baclofen 10 MG Oral Tablet 09-26T00:00:00.000+00 :00 - Completed pregabalin 100 MG Oral Capsule 2 650-05-95M20:00:00.000+00 :00 - Completed pregabalin 100 MG Oral Capsule 2 282-46-75C23:00:00.000+00 :00 - Completed pregabalin 100 MG Oral Capsule 2 880-73-98K31:00:00.000+00 :00 - Completed baclofen 5 MG Oral Tablet :00:00.000+00 :00 - Completed pregabalin 100 MG Oral Capsule 2 622-11-57R15:00:00.000+00 :00 - Completed pregabalin 100 MG Oral Capsule 2 530-30-07H15:00:00.000+00 :00 - Completed carvedilol 6.25 MG Oral Tablet 2 480-35-55Q47:00:00.000+00 :00 - Completed baclofen 10 MG Oral Tablet :00:00.000+00 :00 - Completed pregabalin 100 MG Oral Capsule 2 844-62-15M40:00:00.000+00 :00 - Completed tizanidine 4 MG Oral Tablet 2021:00:00.000+00 :00 - Completed carvedilol 6.25 MG Oral Tablet 2 142-87-69V34:00:00.000+00 :00 - Completed ropinirole 1 MG Oral Tablet 2022:00:00.000+00 :00 - Completed ropinirole 1 MG Oral Tablet 2021:00:00.000+00 :00 - Completed fluconazole 100 MG Oral Tablet 428-34-59Q37:00:00.000+00 :00 - Completed warfarin sodium 5 MG Oral Tablet 9475-22-32P55:00:00.000+00 :00 - Completed warfarin sodium 5 MG Oral Tablet 7201-18-72E84:00:00.000+00 :00 - Completed clopidogrel 75 MG Oral Tablet 05-10-06:00:00.000+00 :00 - Completed fluconazole 200 MG Oral Tablet 005-66-85Q77:00:00.000+00 :00 - Completed ropinirole 1 MG Oral Tablet 2022:00:00.000+00 :00 - Completed warfarin sodium 2 MG Oral Tablet 4698-95-57N28:00:00.000+00 :00 - Completed losartan potassium 50 MG Oral Tablet 2817-04-34Z36:00:00.000+00 :00 - Completed duloxetine 60 MG Delayed Rel ease Oral Capsule 0660-53-45V57:00:00.000+00 :00 - Completed carvedilol 6.25 MG Oral Tablet 2 905-65-82E46:00:00.000+00 :00 - Completed prednisone 20 MG Oral Tablet 12-19-22:00:00.000+00 :00 - Completed clopidogrel 75 MG Oral Tablet 07-12-12:00:00.000+00 :00 - Completed esomeprazole 40 MG Delayed R elease Oral Capsule 8384-70-35Y88:00:00.000+00 :00 - Completed warfarin sodium 2 MG Oral Tablet 2101-40-44P14:00:00.000+00 :00 - Completed warfarin sodium 5 MG Oral Tablet 2590-76-68W22:00:00.000+00 :00 - Completed clopidogrel 75 MG Oral Tablet 06-03-01:00:00.000+00 :00 - Completed carvedilol 6.25 MG Oral Tablet 2 573-12-78A95:00:00.000+00 :00 - Completed warfarin sodium 5 MG Oral Tablet 4372-76-66M48:00:00.000+00 :00 - Completed {6 (azithromycin 250 MG Oral Tablet) } Pack 7326-18-13G32:00:00.000+00 :00 - Completed cefdinir 300 MG Oral Capsule 12-15-26:00:00.000+00 :00 - Completed tizanidine 4 MG Oral Tablet 2021:00:00.000+00 :00 - Completed prednisone 5 MG Oral Tablet 2022:00:00.000+00 :00 - Completed fluconazole 200 MG Oral Tablet 2 667-81-20H73:00:00.000+00 :00 - Completed prednisone 5 MG Oral Tablet 2022:00:00.000+00 :00 - Completed prednisone 20 MG Oral Tablet 12-15-16:00:00.000+00 :00 - Completed rivaroxaban 20 MG Oral Table t [Xarelto] 3138-62-04W59:00:00.000+00 :00 - Completed {21 (methylprednisolone 4 MG Oral Tablet) } Pack 6786-00-93U38:00:00.000+00 :00 - Completed spironolactone 50 MG Oral Tablet 5826-65-30L09:00:00.000+00 :00 - Completed spironolactone 50 MG Oral Tablet 9508-54-62K33:00:00.000+00 :00 - Completed spironolactone 50 MG Oral Tablet 6285-16-98X69:00:00.000+00 :00 - Completed duloxetine 60 MG Delayed Rel ease Oral Capsule 3932-93-20N81:00:00.000+00 :00 - Completed prednisone 20 MG Oral Tablet 12-19-18:00:00.000+00 :00 - Completed azithromycin 500 MG Oral Tablet 7846-30-84S72:00:00.000+00 :00 - Completed spironolactone 50 MG Oral Tablet 4845-22-32H69:00:00.000+00 :00 - Completed prednisone 20 MG Oral Tablet 202 12-16-09:00:00.000+00 :00 - Completed prednisone 20 MG Oral Tablet 12-19-10:00:00.000+00 :00 - Completed clopidogrel 75 MG Oral Tablet 06-11-09:00:00.000+00 :00 - Completed duloxetine 60 MG Delayed Rel ease Oral Capsule 0972-69-20E76:00:00.000+00 :00 - Completed tizanidine 4 MG Oral Tablet 2021:00:00.000+00 :00 - Completed duloxetine 60 MG Delayed Rel ease Oral Capsule 9263-12-98J79:00:00.000+00 :00 - Completed rivaroxaban 20 MG Oral Table t [Xarelto] 2037-21-63M30:00:00.000+00 :00 - Completed hydroxychloroquine sulfate 2 00 MG Oral Tablet 8089-33-43G77:00:00.000+00 :00 - Completed ropinirole 1 MG Oral Tablet 2021:00:00.000+00 :00 - Completed esomeprazole 40 MG Delayed R elease Oral Capsule 4678-27-92C48:00:00.000+00 :00 - Completed torsemide 20 MG Oral Tablet 2022:00:00.000+00 :00 - Completed cyclobenzaprine hydrochlorid e 10 MG Oral Tablet 3977-20-88S59:00:00.000+00 :00 - Completed torsemide 20 MG Oral Tablet 2022:00:00.000+00 :00 - Completed gabapentin 400 MG Oral Capsule 2 952-10-25T08:00:00.000+00 :00 - Completed hydroxychloroquine sulfate 2 00 MG Oral Tablet 2464-37-06N89:00:00.000+00 :00 - Completed losartan potassium 50 MG Oral Tablet 8021-33-72X39:00:00.000+00 :00 - Completed torsemide 20 MG Oral Tablet 2021:00:00.000+00 :00 - Completed torsemide 20 MG Oral Tablet 2021:00:00.000+00 :00 - Completed hydroxychloroquine sulfate 2 00 MG Oral Tablet 0860-79-97K93:00:00.000+00 :00 - Completed esomeprazole 40 MG Delayed R elease Oral Capsule 7137-71-71V27:00:00.000+00 :00 - Completed rivaroxaban 20 MG Oral Table t [Xarelto] 8345-36-09I17:00:00.000+00 :00 - Completed gabapentin 400 MG Oral Capsule 2 368-32-31U22:00:00.000+00 :00 - Completed rivaroxaban 20 MG Oral Table t [Xarelto] 7765-88-21T18:00:00.000+00 :00 - Completed losartan potassium 50 MG Oral Tablet 8756-92-73T09:00:00.000+00 :00 - Completed hydroxychloroquine sulfate 2 00 MG Oral Tablet 0669-71-37I19:00:00.000+00 :00 - Completed esomeprazole 40 MG Delayed R elease Oral Capsule 5548-79-07O44:00:00.000+00 :00 - Completed hydroxychloroquine sulfate 2 00 MG Oral Tablet 7624-20-22B05:00:00.000+00 :00 - Completed ropinirole 1 MG Oral Tablet 2021:00:00.000+00 :00 - Completed ropinirole 1 MG Oral Tablet 2021:00:00.000+00 :00 - Completed losartan potassium 50 MG Oral Tablet 6737-30-85K62:00:00.000+00 :00 - Completed acetaminophen 325 MG / hydro codone bitartrate 10 MG Oral Tablet 1073-15-21R72:00:00.000+0 0 :00 - Completed acetaminophen 325 MG / hydro codone bitartrate 10 MG Oral Tablet 7721-78-20J61:00:00.000+0 0 :00 - Completed acetaminophen 325 MG / hydro codone bitartrate 10 MG Oral Tablet 0661-62-88M63:00:00.000+0 0 :00 - Completed acetaminophen 325 MG / hydro codone bitartrate 10 MG Oral Tablet 9015-53-46L01:00:00.000+0 0 :00 - Completed acetaminophen 325 MG / hydro codone bitartrate 10 MG Oral Tablet 5541-87-32Y17:00:00.000+0 0 :00 - Completed acetaminophen 325 MG / hydro codone bitartrate 10 MG Oral Tablet 5731-06-84C28:00:00.000+0 0 :00 - Completed acetaminophen 325 MG / hydro codone bitartrate 10 MG Oral Tablet 1575-93-52C83:00:00.000+0 0 :00 - Completed acetaminophen 325 MG / hydro codone bitartrate 10 MG Oral Tablet 7117-93-79D17:00:00.000+0 0 :00 - Completed acetaminophen 325 MG / hydro codone bitartrate 10 MG Oral Tablet 9197-40-13Q08:00:00.000+0 0 :00 - Completed acetaminophen 325 MG / hydro codone bitartrate 10 MG Oral Tablet 9228-81-18S89:00:00.000+0 0 :00 - Completed Patient Care team information Name Category Status Period Participants - - Proposed period not known -
--- OUTSIDE RECORDS SUMMARY | 2025-02-17 07:13 | XMS_ITS | Data Portability ---
Author Organization [facility] SHASHI Rossi [place] [facility] Address [address] [place] [address] Care Team Providers Care Veterans Employment Representative Name Role Phone SANGEETA BENOIT Primary Care [...] 6 weeks once imaging has been completed. [email or web address] Not available 05/21/2024 11:00:40 07/02/2024 07/02/2024 Kassi [...] the patient to obtain a disc from [facility] and bring the disc to us. Once we have the disc, I will have Dr. Walker review the imaging and contact the patient. I have scheduled her for a follow-up appointment in 6 weeks as well. [email or web address] Not available 07/02/2024 11:48:35 10/17/2024 10/17/2024 Kassi [...] headaches, consider further evaluation by headache specialist. [email or web address] Not available 10/17/2024 12:21:54 Plan of Treatment Reminders Order Date Submit Date Provider Last Modified By Organization Details Last Modified Time Details Appointments None recorded. Lab None recorded. Referral None recorded. Procedures None recorded. Surgeries None recorded. Imaging None recorded. Medication Orders cyclobenzap rine 10 mg tablet 2023 024 [facility], [address] [place] [address], [phone], 11:01:23 Patient TargetsNo targets recorded. Patient InstructionsNo instructions recorded. Reason for Referral None Reported. Results Created Date Observation Date Name Description Value Unit Range Abnormal Flag Note LastModifiedBy Organization Detail LastModifiedTime 06/12/2006/11/2024 MRI, lumba r spine , w/wo contr ast No observ ation record ed. [email or web address] Not Available 2023 11:20:48 08/22/20 24 08/19/2024 MRI, cervi claribel spine , w/wo contr ast No observ ation record ed. [email or web address] Not Available 2024 16:06:42 Result Notes None recorded. Procedures Surgical History Date Name Laterality Status Provider Name and Address Organization Details Recorded Time Back Surgery completed [facility] 05/21/2024 10:17:19 section completed [facility] 05/21/2024 10:17:33 Appendectomy completed [facility] 05/21/2024 10:17:40 Cholecystectomy completed [facility] 05/21/2024 10:17:48 hysterectomy completed [facility] 05/21/2024 10:17:58 Gastric bypass for obesity completed [facility] 05/21/2024 10:18:08 Imaging Results Imaging Date Name Status LastModified by Organiz ation Details LastModified Time 06/11/2024 MRI, lumbar spine, w/wo contrast completed [email or web address] Information not available 06/12/2024 11:20:48 08/19/2024 MRI, cervical spine, w/wo contrast completed Information not available 01/27/2025 16:06:42 Procedure Notes [...] Updated DateTime 05/21/2024 160.02 cm 33.7 kg/m2 89717.55 g 130 mm[Hg] 82 mm[Hg] [facility] 4 10:25:23 Date Recorded Body height Body mass index (BMI) Body weight Systolic blood pressure Diastolic blood pressure Provider Name and Address Organization Details Last Updated DateTime 07/02/2024 160.02 cm 33.7 kg/m2 00660.55 g 126 mm[Hg] 82 mm[Hg] [facility] 4 11:21:39 Date Recorded Body height Body mass index (BMI) Body weight Systolic blood pressure Diastolic blood pressure Provider Name and Address Organization Details Last Updated DateTime 10/17/2024 160.02 cm 33.7 kg/m2 68411.55 g 122 mm[Hg] 82 mm[Hg] [facility] 5 09:17:07 Social History None recorded. [...] SNOMED-CT Code Diagnosis ICD10 Code Diagnosis Note [id number] SKIP KAUFMAN PA-C NEUROSURG [facility] [address] [place] [address] 05/21/2024 09:59:46 05/23/2024 14:19:21 Lumbar radiculopathy 243699126 M54.16 [id number] SKIP KAUFMAN PA-C [facility]OS[facility] [address] [place] [address] 07/02/2024 10:12:30 07/07/2024 10:32:51 Lumbar radiculopathy 141083290 M54.16 Low back pain 084914083 M54.50 [id number] VÍCTOR WALKER MD NE[facility]OSURG [facility] [address] [place] [address] 10/17/2024 09:09:50 10/18/2024 05:47:25 Headache [id number] R51.9 Health Concerns Section Related Observation LastModified by Organization Detai ls LastModified Time None Recorded Concern Status LastModified by Organization Details LastModified Time None Recorded Advance Directives Directive None Recorded Payers Encounter Date Sequence Insurance Name Policy Number Policy Junior Covered Member ID Junior Member ID Guarantor Name 05/21/2024 1 [employer] (EPO) [id number] Kassi Claudio [id number] Kassi Claudio 07/02/2024 1 [employer] (EPO) [id number] Kassi Claudio [id number] Kassi White 10/17/2024 1 [employer] (EPO) [id number] Kassi Claudio [id number] Kassi Claudio Notes Date Note Type [...] on warfarin. SKIP KAUFMAN PA-C [address] [place], [address], [facility] 05/21/2024 11:01:32 4 text/html Kassi Claudio is [...] resolved. She had her MRI completed at [facility] on 06/11/2024 but did not obtain a disc with the MRI images to bring to her appointment today. SKIP KAUFMAN PA-C [address] [place], [address], [facility] 07/02/2024 11:49:01 5 text/html Kassi Claudio is [...] massager seems to help. VÍCTOR WALKER MD [address] [place] [address], [phone], [facility] 10/17/2024 12:23:13 OBGyn Episode No OBEpisode recorded.
--- NOTE | 2025-02-17 07:30 | MR_ITS ---
FINAL REPORT TECHNIQUE: Multiplanar and multisequence imaging of the shoulder was obtained without contrast. CLINICAL HISTORY: lt shoulder pain after a fall 1 month ago COMPARISON: None FINDINGS: There is degradation of overall image quality secondary to motion artifact. Bones/Joint: Bone marrow signal intensity is normal. There is no fracture, edema, or pathologic marrow replacement. The AC joint is intact. Rotator Cuff: No full-thickness rotator cuff tear is seen. There is tendinopathy present in the rotator cuff tendons. There is no fatty atrophy of the rotator cuff musculature. Labrum: No labral tear is identified. The biceps labral complex is intact. The glenohumeral ligaments are intact. Other: The more distal biceps tendon is located within the bicipital groove. There is a small joint effusion. A small amount of fluid is present in the subdeltoid bursa. Remaining soft tissues are within normal limits. IMPRESSION: Tendinopathy of the rotator cuff tendons without full-thickness tear. Small joint effusion and small amount of fluid in the subdeltoid bursa. Reviewed, Interpreted and Dictated by Michaela Carlson MD Transcribed by Kelly Masters Authenticated and [facility]
== END 2025-02-17 23:59 | disposition home or self-care (01) ==
LOC: RAD 07:12
PROVIDERS: Visit Provider Physician Assistant
DX: M25.512 Pain in left shoulder (principal); M67.912 Unspecified disorder of synovium and tendon, left shoulder
CPT/HCPCS: 73221

== ENCOUNTER 2025-02-24 07:40 | Outpatient (CLI) | payer OTHER, SELFPAY ==
--- OUTSIDE RECORDS SUMMARY | 2025-02-24 07:42 | XMS_ITS | Data Portability ---
Author Organization [facility] SHASHI Rossi [place] [facility] Address [address] [place] [address] Care Team Providers Care Watch Train Assembler Name Role Phone SANGEETA BENOIT Primary Care Provider [phone] Assessment Encounter Date Assessment Date Assessment LastModified [...] 6 weeks once imaging has been completed. [email or web address] Not available 05/21/2024 11:00:40 07/02/2024 07/02/2024 Kassi [...] follow-up appointment in 6 weeks as well. [email or web address] Not available 07/02/2024 11:48:35 10/17/2024 10/17/2024 Kassi [...] headaches, consider further evaluation by headache specialist. [email or web address] Not available 10/17/2024 12:21:54 Plan of Treatment Reminders Order Date Submit Date Provider Last Modified By Organization Details Last Modified Time Details Appointments None recorded. Lab None recorded. Referral None recorded. Procedures None recorded. Surgeries None recorded. Imaging None recorded. Medication Orders cyclobenzap rine 10 mg tablet 2023 024 [facility], [address] [place] [address], [id number], 11:01:23 Patient TargetsNo targets recorded. Patient InstructionsNo instructions recorded. Reason for Referral None Reported. Results Created Date Observation Date Name Description Value Unit Range Abnormal Flag Note LastModifiedBy Organization Detail LastModifiedTime 06/12/2006/11/2024 MRI, lumba r spine , w/wo contr ast No observ ation record ed. [email or web address] Not Available 2023 11:20:48 08/22/20 24 08/19/2024 MRI, cervi claribel spine , w/wo contr ast No observ ation record ed. [email or web address] Not Available 2024 16:06:42 Result Notes None recorded. Procedures Surgical History Date Name Laterality Status Provider Name and Address Organization Details Recorded Time Back Surgery completed [facility] 05/21/2024 10:17:19 section completed [facility] 05/21/2024 10:17:33 Appendectomy completed [facility] 05/21/2024 10:17:40 Cholecystectomy completed [facility] 05/21/2024 10:17:48 hysterectomy completed [facility] 05/21/2024 10:17:58 Gastric bypass for obesity completed [facility] 05/21/2024 10:18:08 Imaging Results Imaging Date Name Status LastModified by Organiz ation Details LastModified Time 06/11/2024 MRI, lumbar spine, w/wo contrast completed [email or web address] Information not available 06/12/2024 11:20:48 08/19/2024 MRI, cervical spine, w/wo contrast completed [email or web address] Information not available 01/27/2025 16:06:42 Procedure Notes [...] Updated DateTime 05/21/2024 160.02 cm 33.7 kg/m2 30234.55 g 130 mm[Hg] 82 mm[Hg] [facility] 4 10:25:23 Date Recorded Body height Body mass index (BMI) Body weight Systolic blood pressure Diastolic blood pressure Provider Name and Address Organization Details Last Updated DateTime 07/02/2024 160.02 cm 33.7 kg/m2 46613.55 g 126 mm[Hg] 82 mm[Hg] [facility] 4 11:21:39 Date Recorded Body height Body mass index (BMI) Body weight Systolic blood pressure Diastolic blood pressure Provider Name and Address Organization Details Last Updated DateTime 10/17/2024 160.02 cm 33.7 kg/m2 20112.55 g 122 mm[Hg] 82 mm[Hg] [facility] 5 09:17:07 Social History None recorded. Functional [...] SNOMED-CT Code Diagnosis ICD10 Code Diagnosis Note [id number] SKIP KAUFMAN PA-C NEUROSURG [facility] [address] [place] [address] 05/21/2024 09:59:46 05/23/2024 14:19:21 Lumbar radiculopathy 119040857 M54.16 [id number] SKIP KAUFMAN [facility] [address] [place] [address] 07/02/2024 10:12:30 07/07/2024 10:32:51 Lumbar radiculopathy [id number] M54.16 Low back pain 630176776 M54.50 [id number] VÍCTOR WALKER MD NEUROSURG [facility] [address] [place] [address] 10/17/2024 09:09:50 10/18/2024 05:47:25 Headache [id number] R51.9 Health Concerns Section Related Observation LastModified by Organization Detai ls LastModified Time None Recorded Concern Status LastModified by Organization Details LastModified Time None Recorded Advance Directives Directive None Recorded Payers Insurance Date Sequence Insurance Name Policy Number Policy Junior Covered Member ID Junior Member ID Guarantor Name 10/15/2024 1 [employer] (EPO) [id number] Kassi Claudio [id number] Kassi Claudio Notes Date Note Type Note Provider Name and Address Organization Details Recorded Time 4 text/html Kassi Claudio is a 54-year-old [...] on warfarin. SKIP KAUFMAN PA-C [address] [place], [address], [facility] 05/21/2024 11:01:32 4 text/html Kassi Claudio is [...] has had baseline left lower extremity since 2011 as well. At her last visit, she [...] to her appointment today. SKIP KAUFMAN PA-C [address] [place], [address], [facility] 07/02/2024 11:49:01 5 text/html Kassi Claudio is [...] massager seems to help. VÍCTOR WALKER MD [address] [place] [address], [phone], [facility] 10/17/2024 12:23:13 OBGyn Episode No OBEpisode recorded.
--- OUTSIDE RECORDS SUMMARY | 2025-02-24 07:42 | XMS_ITS ---
Author Organization Unknown Medications Medication Instructions Effective Dates (start - stop) Status estradiol 1 MG Oral Tablet 06-16T00:00:00.000+00 :00 - Completed estradiol 1 MG Oral Tablet 07-14T:00:00.000+00 :00 - Completed estradiol 1 MG Oral Tablet :00:00.000+00 :00 - Completed estradiol 1 MG Oral Tablet :00:00.000+00 :00 - Completed pregabalin 100 MG Oral Capsule 2 158-50-44C38:00:00.000+00 :00 - Completed pregabalin 100 MG Oral Capsule 2 128-14-01E99:00:00.000+00 :00 - Completed pregabalin 100 MG Oral Capsule 2 336-85-30Z16:00:00.000+00 :00 - Completed baclofen 5 MG Oral Tablet 3-0 3-T:00:00.000+00 :00 - Completed baclofen 5 MG Oral Tablet 3-0 -T00:00:00.000+00 :00 - Completed pregabalin 100 MG Oral Capsule 2 046-25-62C15:00:00.000+00 :00 - Completed baclofen 5 MG Oral Tablet 3-0 -T:00:00.000+00 :00 - Completed baclofen 10 MG Oral Tablet 11-14T:00:00.000+00 :00 - Completed pregabalin 100 MG Oral Capsule 2 541-68-76M76:00:00.000+00 :00 - Completed baclofen 10 MG Oral Tablet 09-26T00:00:00.000+00 :00 - Completed pregabalin 100 MG Oral Capsule 2 211-08-37L43:00:00.000+00 :00 - Completed pregabalin 100 MG Oral Capsule 2 196-48-26T51:00:00.000+00 :00 - Completed pregabalin 100 MG Oral Capsule 2 644-40-93H58:00:00.000+00 :00 - Completed baclofen 5 MG Oral Tablet :00:00.000+00 :00 - Completed pregabalin 100 MG Oral Capsule 2 634-36-75H65:00:00.000+00 :00 - Completed pregabalin 100 MG Oral Capsule 2 623-35-03J29:00:00.000+00 :00 - Completed carvedilol 6.25 MG Oral Tablet 2 610-50-97C83:00:00.000+00 :00 - Completed baclofen 10 MG Oral Tablet :00:00.000+00 :00 - Completed pregabalin 100 MG Oral Capsule 2 812-33-56U28:00:00.000+00 :00 - Completed tizanidine 4 MG Oral Tablet 2021:00:00.000+00 :00 - Completed carvedilol 6.25 MG Oral Tablet 2 347-66-82N77:00:00.000+00 :00 - Completed ropinirole 1 MG Oral Tablet 2022:00:00.000+00 :00 - Completed ropinirole 1 MG Oral Tablet 2021:00:00.000+00 :00 - Completed fluconazole 100 MG Oral Tablet 710-91-15O61:00:00.000+00 :00 - Completed warfarin sodium 5 MG Oral Tablet 1621-56-72P09:00:00.000+00 :00 - Completed warfarin sodium 5 MG Oral Tablet 1760-02-03J30:00:00.000+00 :00 - Completed clopidogrel 75 MG Oral Tablet 05-10-06:00:00.000+00 :00 - Completed fluconazole 200 MG Oral Tablet 906-34-53H09:00:00.000+00 :00 - Completed ropinirole 1 MG Oral Tablet 2022:00:00.000+00 :00 - Completed warfarin sodium 2 MG Oral Tablet 2432-86-74C67:00:00.000+00 :00 - Completed losartan potassium 50 MG Oral Tablet 1260-63-06Z29:00:00.000+00 :00 - Completed duloxetine 60 MG Delayed Rel ease Oral Capsule 2258-31-43Z51:00:00.000+00 :00 - Completed carvedilol 6.25 MG Oral Tablet 2 389-61-98Z37:00:00.000+00 :00 - Completed prednisone 20 MG Oral Tablet 12-19-22:00:00.000+00 :00 - Completed clopidogrel 75 MG Oral Tablet 07-12-12:00:00.000+00 :00 - Completed esomeprazole 40 MG Delayed R elease Oral Capsule 3048-19-96B86:00:00.000+00 :00 - Completed warfarin sodium 2 MG Oral Tablet 0971-85-62D13:00:00.000+00 :00 - Completed warfarin sodium 5 MG Oral Tablet 1190-09-90J37:00:00.000+00 :00 - Completed clopidogrel 75 MG Oral Tablet 06-03-01:00:00.000+00 :00 - Completed carvedilol 6.25 MG Oral Tablet 2 820-48-89M77:00:00.000+00 :00 - Completed warfarin sodium 5 MG Oral Tablet 0312-86-38B58:00:00.000+00 :00 - Completed {6 (azithromycin 250 MG Oral Tablet) } Pack 3142-58-07F86:00:00.000+00 :00 - Completed cefdinir 300 MG Oral Capsule 12-15-26:00:00.000+00 :00 - Completed tizanidine 4 MG Oral Tablet 2021:00:00.000+00 :00 - Completed prednisone 5 MG Oral Tablet 2022:00:00.000+00 :00 - Completed fluconazole 200 MG Oral Tablet 2 052-29-13E53:00:00.000+00 :00 - Completed prednisone 5 MG Oral Tablet 2022:00:00.000+00 :00 - Completed prednisone 20 MG Oral Tablet 12-15-16:00:00.000+00 :00 - Completed rivaroxaban 20 MG Oral Table t [Xarelto] 2381-75-71I69:00:00.000+00 :00 - Completed {21 (methylprednisolone 4 MG Oral Tablet) } Pack 7577-73-96X41:00:00.000+00 :00 - Completed spironolactone 50 MG Oral Tablet 2319-07-98I47:00:00.000+00 :00 - Completed spironolactone 50 MG Oral Tablet 9230-24-12O52:00:00.000+00 :00 - Completed spironolactone 50 MG Oral Tablet 7203-05-76T50:00:00.000+00 :00 - Completed duloxetine 60 MG Delayed Rel ease Oral Capsule 4990-42-62I99:00:00.000+00 :00 - Completed prednisone 20 MG Oral Tablet 12-19-18:00:00.000+00 :00 - Completed azithromycin 500 MG Oral Tablet 6952-78-62I08:00:00.000+00 :00 - Completed spironolactone 50 MG Oral Tablet 5088-12-34U99:00:00.000+00 :00 - Completed prednisone 20 MG Oral Tablet 202 12-16-09:00:00.000+00 :00 - Completed prednisone 20 MG Oral Tablet 12-19-10:00:00.000+00 :00 - Completed clopidogrel 75 MG Oral Tablet 06-11-09:00:00.000+00 :00 - Completed duloxetine 60 MG Delayed Rel ease Oral Capsule 3558-45-54M08:00:00.000+00 :00 - Completed tizanidine 4 MG Oral Tablet 2021:00:00.000+00 :00 - Completed duloxetine 60 MG Delayed Rel ease Oral Capsule 2915-84-73D74:00:00.000+00 :00 - Completed rivaroxaban 20 MG Oral Table t [Xarelto] 4973-97-89P35:00:00.000+00 :00 - Completed hydroxychloroquine sulfate 2 00 MG Oral Tablet 3038-67-47J52:00:00.000+00 :00 - Completed ropinirole 1 MG Oral Tablet 2021:00:00.000+00 :00 - Completed esomeprazole 40 MG Delayed R elease Oral Capsule 0734-07-65O19:00:00.000+00 :00 - Completed torsemide 20 MG Oral Tablet 2022:00:00.000+00 :00 - Completed cyclobenzaprine hydrochlorid e 10 MG Oral Tablet 1648-38-97P90:00:00.000+00 :00 - Completed torsemide 20 MG Oral Tablet 2022:00:00.000+00 :00 - Completed gabapentin 400 MG Oral Capsule 2 808-83-63V41:00:00.000+00 :00 - Completed hydroxychloroquine sulfate 2 00 MG Oral Tablet 1260-01-58K29:00:00.000+00 :00 - Completed losartan potassium 50 MG Oral Tablet 7485-52-94P56:00:00.000+00 :00 - Completed torsemide 20 MG Oral Tablet 2021:00:00.000+00 :00 - Completed torsemide 20 MG Oral Tablet 2021:00:00.000+00 :00 - Completed hydroxychloroquine sulfate 2 00 MG Oral Tablet 9218-76-86W38:00:00.000+00 :00 - Completed esomeprazole 40 MG Delayed R elease Oral Capsule 3847-81-24E87:00:00.000+00 :00 - Completed rivaroxaban 20 MG Oral Table t [Xarelto] 0965-31-31B90:00:00.000+00 :00 - Completed gabapentin 400 MG Oral Capsule 2 554-28-56S08:00:00.000+00 :00 - Completed rivaroxaban 20 MG Oral Table t [Xarelto] 8561-61-58W38:00:00.000+00 :00 - Completed losartan potassium 50 MG Oral Tablet 7604-98-22D04:00:00.000+00 :00 - Completed hydroxychloroquine sulfate 2 00 MG Oral Tablet 0580-05-32G97:00:00.000+00 :00 - Completed esomeprazole 40 MG Delayed R elease Oral Capsule 3557-40-53W02:00:00.000+00 :00 - Completed hydroxychloroquine sulfate 2 00 MG Oral Tablet 1117-01-16I08:00:00.000+00 :00 - Completed ropinirole 1 MG Oral Tablet 2021:00:00.000+00 :00 - Completed ropinirole 1 MG Oral Tablet 2021:00:00.000+00 :00 - Completed losartan potassium 50 MG Oral Tablet 2237-69-47Z28:00:00.000+00 :00 - Completed acetaminophen 325 MG / hydro codone bitartrate 10 MG Oral Tablet 1261-57-94U85:00:00.000+0 0 :00 - Completed acetaminophen 325 MG / hydro codone bitartrate 10 MG Oral Tablet 9781-21-05F65:00:00.000+0 0 :00 - Completed acetaminophen 325 MG / hydro codone bitartrate 10 MG Oral Tablet 1990-59-58J22:00:00.000+0 0 :00 - Completed acetaminophen 325 MG / hydro codone bitartrate 10 MG Oral Tablet 1772-85-68T82:00:00.000+0 0 :00 - Completed acetaminophen 325 MG / hydro codone bitartrate 10 MG Oral Tablet 5052-79-09Q31:00:00.000+0 0 :00 - Completed acetaminophen 325 MG / hydro codone bitartrate 10 MG Oral Tablet 9917-85-44N77:00:00.000+0 0 :00 - Completed acetaminophen 325 MG / hydro codone bitartrate 10 MG Oral Tablet 4740-66-03E63:00:00.000+0 0 :00 - Completed acetaminophen 325 MG / hydro codone bitartrate 10 MG Oral Tablet 8242-13-49Y85:00:00.000+0 0 :00 - Completed acetaminophen 325 MG / hydro codone bitartrate 10 MG Oral Tablet 2907-37-66E58:00:00.000+0 0 :00 - Completed acetaminophen 325 MG / hydro codone bitartrate 10 MG Oral Tablet 4691-12-74A90:00:00.000+0 0 :00 - Completed Patient Care team information Name Category Status Period Participants - - Proposed period not known -
--- NOTE | 2025-02-24 08:00 | MM_ITS ---
PROCEDURE INFORMATION: Exam: MG Bilateral Screening 3D Mammography Exam date and time: 02/24/2025 7:44 AM Age: 55 years old Clinical indication: Screening exam. TECHNIQUE: Imaging protocol: Bilateral Screening tomosynthesis and 2D mammography including computer-aided detection (CAD) when performed. COMPARISON: MG MM DIG SCREENING MAMM BI W/CAD 03/11/2021 3:33 PM FINDINGS: MAMMOGRAPHY: Breast composition: There are scattered areas of fibroglandular density. Mass: No suspicious masses. Architectural distortion: None. Calcifications: No suspicious calcifications. Asymmetric density: None. Skin thickening: None. Axillary adenopathy: None. IMPRESSION: No mammographic evidence of malignancy. Annual screening is recommended unless otherwise clinically indicated. ASSESSMENT: BI-RADS Category 1: Negative.
== END 2025-02-24 23:59 | disposition home or self-care (01) ==
LOC: RAD 07:40
PROVIDERS: PCP Family Medicine; Visit Provider Family Medicine
DX: Z12.31 Encounter for screening mammogram for malignant neoplasm of breast (principal); R92.313 Mammographic fatty tissue density, bilateral breasts
CPT/HCPCS: 77063; 77067

== ENCOUNTER 2025-02-27 07:47 | Day surgery (SDC) | payer OTHER, SELFPAY ==
[2025-02-24 17:27] VITALS: BMI 32.2
[2025-02-27 08:00] VITALS: BP 148/79; PULSE 59; RESP 16; TEMP 36.4; O2SAT 100
[2025-02-27] MEDS: 0.9 % SODIUM CHLORIDE 500 ML 25 ML IV (08:37)
[2025-02-27 08:40] VITALS: BP 143/88; PULSE 63; RESP 16; TEMP 36.1; O2SAT 100
--- NOTE | 2025-02-27 08:42 | P.PCN_ITS ---
[facility] Procedure Note Date: 02/27/25 Time: 08:43 Procedure Note:: Chart review: Patient has intermittent bouts of gross hematuria for the past 6 months. She has been using Estrace vaginal cream. Her CT scan with and without infusion on 02/06 shows bilateral 2 mm stones. The patient is on Coumadin. Pre-Op diagnosis: Hematuria Postop diagnosis: Hematuria; ureteritis Operative note: The patient was brought to the cystoscopy suite. She is prepped and draped in the sterile fashion and underwent catheterization for culture and sensitivity. The patient then underwent flexible cystoscopy. She has moderate ureteritis and this may account for some of the hematuria. She is also on COVID and so wants to bleeding began as it could be made worse due to the Coumadin. The patient's bladder is [place] pink in color throughout without evidence of bladder stone tumor hemorrhage or infection. Her ureteral orifice ease bilaterally are normal with clear E flux of urine. The patient tolerated the procedure well.
[2025-02-27 12:26] LABS: Microscopic,Cath URINE MICROSCOPIC (MICROSCOPIC)
[2025-02-27 12:49] LABS: Appearance,Urine/Cath SL CLOUDY (Clear); Bilirubin,Cath Negative (Negative); Blood, Urine/Cath 3+ (Negative); Color,Urine/Cath YELLOW (Yellow); Glucose,Urine/Cath (UA) 1+ (Negative); Ketones,Urine/Cath TRACE (Negative); Leukocyte Esterase,Cath Negative (Negative); Nitrate,Cath Negative (Negative); Protein,Urine/Cath 1+ (Negative); Specific Gravity, Urine/Cath >= 1.030 (1.005-1.030); Urobilinogen,Cath 0.2 EU/dl (0.2)
[2025-02-27 13:08] LABS: Amorphous Sediment,Ur/Cath 2+ /lpf; Bacteria,Urine/Cath TRACE /lpf; Squamous Epithelial Ur./Cath Occasional #/hpf (0-5); WBC,Urine/Cath Occasional #/hpf (0-3)
[2025-02-27 13:09] LABS: CA Oxalate Crystals,Ur/Cath Trace /lpf
== END 2025-02-27 08:49 | disposition home or self-care (01) ==
PROVIDERS: PCP Family Medicine; Visit Provider Urology
PROC: 0TJB8ZZ Inspection of Bladder, Via Natural or Artificial Opening Endoscopic (ICD-10-PCS; CPT 52000; principal; 2025-02-27 09:00)
DX: R31.9 Hematuria, unspecified (principal); N28.89 Other specified disorders of kidney and ureter
CPT/HCPCS: 52000; 81001

== ENCOUNTER 2025-03-02 09:50 | Outpatient (CLI) | payer OTHER, SELFPAY ==
[2025-03-02 20:35] LABS: Cholesterol 192 mg/dl (140-200); Iron 71 ug/dL (37-170); Triglycerides 108 mg/dl (30-150); VLDL Cholesterol 22 mg/dL (0-40)
[2025-03-02 20:36] LABS: Chol/HDL Ratio 2.5 (1-3.5); HDL Cholesterol 76 mg/dl (40-60)
[2025-03-02 20:46] LABS: Direct LDL Cholesterol 89.17 mg/dL (100-129)
--- OUTSIDE RECORDS SUMMARY | 2025-03-02 20:47 | XMS_ITS ---
Author Organization Unknown Medications Medication Instructions Effective Dates (start - stop) Status estradiol 1 MG Oral Tablet 06-16T00:00:00.000+00 :00 - Completed estradiol 1 MG Oral Tablet 07-14T:00:00.000+00 :00 - Completed estradiol 1 MG Oral Tablet :00:00.000+00 :00 - Completed estradiol 1 MG Oral Tablet :00:00.000+00 :00 - Completed pregabalin 100 MG Oral Capsule 2 467-59-27Z92:00:00.000+00 :00 - Completed pregabalin 100 MG Oral Capsule 2 912-70-69U54:00:00.000+00 :00 - Completed pregabalin 100 MG Oral Capsule 2 357-32-48C11:00:00.000+00 :00 - Completed baclofen 5 MG Oral Tablet 3-0 3-T:00:00.000+00 :00 - Completed baclofen 5 MG Oral Tablet 3-0 -T00:00:00.000+00 :00 - Completed pregabalin 100 MG Oral Capsule 2 405-40-66G49:00:00.000+00 :00 - Completed baclofen 5 MG Oral Tablet 3-0 -T:00:00.000+00 :00 - Completed baclofen 10 MG Oral Tablet 11-14T:00:00.000+00 :00 - Completed pregabalin 100 MG Oral Capsule 2 178-45-42S15:00:00.000+00 :00 - Completed baclofen 10 MG Oral Tablet 09-26T00:00:00.000+00 :00 - Completed pregabalin 100 MG Oral Capsule 2 739-76-30N50:00:00.000+00 :00 - Completed pregabalin 100 MG Oral Capsule 2 516-71-75L44:00:00.000+00 :00 - Completed pregabalin 100 MG Oral Capsule 2 721-75-10M53:00:00.000+00 :00 - Completed baclofen 5 MG Oral Tablet :00:00.000+00 :00 - Completed pregabalin 100 MG Oral Capsule 2 444-77-69D26:00:00.000+00 :00 - Completed pregabalin 100 MG Oral Capsule 2 566-69-20T05:00:00.000+00 :00 - Completed carvedilol 6.25 MG Oral Tablet 2 388-96-67D29:00:00.000+00 :00 - Completed baclofen 10 MG Oral Tablet :00:00.000+00 :00 - Completed pregabalin 100 MG Oral Capsule 2 506-59-48I11:00:00.000+00 :00 - Completed tizanidine 4 MG Oral Tablet 2021:00:00.000+00 :00 - Completed carvedilol 6.25 MG Oral Tablet 2 728-03-94D91:00:00.000+00 :00 - Completed ropinirole 1 MG Oral Tablet 2022:00:00.000+00 :00 - Completed ropinirole 1 MG Oral Tablet 2021:00:00.000+00 :00 - Completed fluconazole 100 MG Oral Tablet 751-18-78K98:00:00.000+00 :00 - Completed warfarin sodium 5 MG Oral Tablet 4857-35-18Y49:00:00.000+00 :00 - Completed warfarin sodium 5 MG Oral Tablet 8352-44-61S30:00:00.000+00 :00 - Completed clopidogrel 75 MG Oral Tablet 05-10-06:00:00.000+00 :00 - Completed fluconazole 200 MG Oral Tablet 825-92-75G93:00:00.000+00 :00 - Completed ropinirole 1 MG Oral Tablet 2022:00:00.000+00 :00 - Completed warfarin sodium 2 MG Oral Tablet 4828-57-19L53:00:00.000+00 :00 - Completed losartan potassium 50 MG Oral Tablet 8605-29-34Z78:00:00.000+00 :00 - Completed duloxetine 60 MG Delayed Rel ease Oral Capsule 0961-89-13T09:00:00.000+00 :00 - Completed carvedilol 6.25 MG Oral Tablet 2 468-35-61S46:00:00.000+00 :00 - Completed prednisone 20 MG Oral Tablet 12-19-22:00:00.000+00 :00 - Completed clopidogrel 75 MG Oral Tablet 07-12-12:00:00.000+00 :00 - Completed esomeprazole 40 MG Delayed R elease Oral Capsule 0639-72-57H03:00:00.000+00 :00 - Completed warfarin sodium 2 MG Oral Tablet 6601-36-85F96:00:00.000+00 :00 - Completed warfarin sodium 5 MG Oral Tablet 7914-19-08Z10:00:00.000+00 :00 - Completed clopidogrel 75 MG Oral Tablet 06-03-01:00:00.000+00 :00 - Completed carvedilol 6.25 MG Oral Tablet 2 831-32-61F52:00:00.000+00 :00 - Completed warfarin sodium 5 MG Oral Tablet 3868-44-90P91:00:00.000+00 :00 - Completed {6 (azithromycin 250 MG Oral Tablet) } Pack 2431-53-84X02:00:00.000+00 :00 - Completed cefdinir 300 MG Oral Capsule 12-15-26:00:00.000+00 :00 - Completed tizanidine 4 MG Oral Tablet 2021:00:00.000+00 :00 - Completed prednisone 5 MG Oral Tablet 2022:00:00.000+00 :00 - Completed fluconazole 200 MG Oral Tablet 2 344-31-00Q08:00:00.000+00 :00 - Completed prednisone 5 MG Oral Tablet 2022:00:00.000+00 :00 - Completed prednisone 20 MG Oral Tablet 12-15-16:00:00.000+00 :00 - Completed rivaroxaban 20 MG Oral Table t [Xarelto] 7445-22-38Z32:00:00.000+00 :00 - Completed {21 (methylprednisolone 4 MG Oral Tablet) } Pack 1880-61-66D16:00:00.000+00 :00 - Completed spironolactone 50 MG Oral Tablet 8578-83-35J29:00:00.000+00 :00 - Completed spironolactone 50 MG Oral Tablet 7623-47-69G55:00:00.000+00 :00 - Completed spironolactone 50 MG Oral Tablet 8737-18-34X56:00:00.000+00 :00 - Completed duloxetine 60 MG Delayed Rel ease Oral Capsule 3235-20-83G83:00:00.000+00 :00 - Completed prednisone 20 MG Oral Tablet 12-19-18:00:00.000+00 :00 - Completed azithromycin 500 MG Oral Tablet 8273-41-46Y60:00:00.000+00 :00 - Completed spironolactone 50 MG Oral Tablet 9729-70-30U84:00:00.000+00 :00 - Completed prednisone 20 MG Oral Tablet 202 12-16-09:00:00.000+00 :00 - Completed prednisone 20 MG Oral Tablet 12-19-10:00:00.000+00 :00 - Completed clopidogrel 75 MG Oral Tablet 06-11-09:00:00.000+00 :00 - Completed duloxetine 60 MG Delayed Rel ease Oral Capsule 2510-59-35B02:00:00.000+00 :00 - Completed tizanidine 4 MG Oral Tablet 2021:00:00.000+00 :00 - Completed duloxetine 60 MG Delayed Rel ease Oral Capsule 2578-73-84S39:00:00.000+00 :00 - Completed rivaroxaban 20 MG Oral Table t [Xarelto] 0456-24-97L52:00:00.000+00 :00 - Completed hydroxychloroquine sulfate 2 00 MG Oral Tablet 0256-70-96F16:00:00.000+00 :00 - Completed ropinirole 1 MG Oral Tablet 2021:00:00.000+00 :00 - Completed esomeprazole 40 MG Delayed R elease Oral Capsule 6376-44-40H08:00:00.000+00 :00 - Completed torsemide 20 MG Oral Tablet 2022:00:00.000+00 :00 - Completed cyclobenzaprine hydrochlorid e 10 MG Oral Tablet 9974-41-37O43:00:00.000+00 :00 - Completed torsemide 20 MG Oral Tablet 2022:00:00.000+00 :00 - Completed gabapentin 400 MG Oral Capsule 2 452-53-05F90:00:00.000+00 :00 - Completed hydroxychloroquine sulfate 2 00 MG Oral Tablet 3431-97-60A00:00:00.000+00 :00 - Completed losartan potassium 50 MG Oral Tablet 1354-65-41J02:00:00.000+00 :00 - Completed torsemide 20 MG Oral Tablet 2021:00:00.000+00 :00 - Completed torsemide 20 MG Oral Tablet 2021:00:00.000+00 :00 - Completed hydroxychloroquine sulfate 2 00 MG Oral Tablet 7224-24-39C96:00:00.000+00 :00 - Completed esomeprazole 40 MG Delayed R elease Oral Capsule 5265-76-50D30:00:00.000+00 :00 - Completed rivaroxaban 20 MG Oral Table t [Xarelto] 7629-03-75G11:00:00.000+00 :00 - Completed gabapentin 400 MG Oral Capsule 2 278-85-23S92:00:00.000+00 :00 - Completed rivaroxaban 20 MG Oral Table t [Xarelto] 7964-71-28V71:00:00.000+00 :00 - Completed losartan potassium 50 MG Oral Tablet 8774-73-49P38:00:00.000+00 :00 - Completed hydroxychloroquine sulfate 2 00 MG Oral Tablet 2209-48-47Y09:00:00.000+00 :00 - Completed esomeprazole 40 MG Delayed R elease Oral Capsule 5618-38-88S22:00:00.000+00 :00 - Completed hydroxychloroquine sulfate 2 00 MG Oral Tablet 9448-53-78X71:00:00.000+00 :00 - Completed ropinirole 1 MG Oral Tablet 2021:00:00.000+00 :00 - Completed ropinirole 1 MG Oral Tablet 2021:00:00.000+00 :00 - Completed losartan potassium 50 MG Oral Tablet 9745-72-80Z27:00:00.000+00 :00 - Completed acetaminophen 325 MG / hydro codone bitartrate 10 MG Oral Tablet 3069-62-51E15:00:00.000+0 0 :00 - Completed acetaminophen 325 MG / hydro codone bitartrate 10 MG Oral Tablet 0591-39-92S72:00:00.000+0 0 :00 - Completed acetaminophen 325 MG / hydro codone bitartrate 10 MG Oral Tablet 8109-79-50H85:00:00.000+0 0 :00 - Completed acetaminophen 325 MG / hydro codone bitartrate 10 MG Oral Tablet 8715-77-02Y83:00:00.000+0 0 :00 - Completed acetaminophen 325 MG / hydro codone bitartrate 10 MG Oral Tablet 7261-82-66Z48:00:00.000+0 0 :00 - Completed acetaminophen 325 MG / hydro codone bitartrate 10 MG Oral Tablet 8876-81-88H12:00:00.000+0 0 :00 - Completed acetaminophen 325 MG / hydro codone bitartrate 10 MG Oral Tablet 9438-68-66B98:00:00.000+0 0 :00 - Completed acetaminophen 325 MG / hydro codone bitartrate 10 MG Oral Tablet 7897-64-62Z48:00:00.000+0 0 :00 - Completed acetaminophen 325 MG / hydro codone bitartrate 10 MG Oral Tablet 8920-72-28B52:00:00.000+0 0 :00 - Completed acetaminophen 325 MG / hydro codone bitartrate 10 MG Oral Tablet 1124-78-70R94:00:00.000+0 0 :00 - Completed Patient Care team information Name Category Status Period Participants - - Proposed period not known -
--- OUTSIDE RECORDS SUMMARY | 2025-03-02 20:47 | XMS_ITS | Data Portability ---
Author Organization [facility] SHASHI Rossi RUMNEY CLOSED Address [address] [place] [address] Care Team Providers Care Supervisor Telephone Answering Service Name Role Phone SANGEETA BENOIT Primary Care [...] 6 weeks once imaging has been completed. Not available 05/21/2024 11:00:40 07/02/2024 07/02/2024 Kassi [...] the patient to obtain a disc from [facility] and bring the disc to us. Once we have the disc, I will have Dr. Walker review the imaging and contact the patient. I have scheduled her for a follow-up appointment in 6 weeks as well. [email or web address] Not available 07/02/2024 11:48:35 10/17/2024 10/17/2024 Kassi [...] headaches, consider further evaluation by headache specialist. [email or web address] Not available 10/17/2024 12:21:54 Plan of Treatment Reminders Order Date Submit Date Provider Last Modified By Organization Details Last Modified Time Details Appointments None recorded. Lab None recorded. Referral None recorded. Procedures None recorded. Surgeries None recorded. Imaging None recorded. Medication Orders cyclobenzap rine 10 mg tablet 2023 024 [facility], [address] [place] [address], [id number], 11:01:23 Patient TargetsNo targets recorded. Patient InstructionsNo instructions recorded. Reason for Referral None Reported. Results Created Date Observation Date Name Description Value Unit Range Abnormal Flag Note LastModifiedBy Organization Detail LastModifiedTime 06/12/2006/11/2024 MRI, lumba r spine , w/wo contr ast No observ ation record ed. Not Available 2023 11:20:48 08/22/20 24 08/19/2024 MRI, cervi claribel spine , w/wo contr ast No observ ation record ed. [email or web address] Not Available 2024 16:06:42 Result Notes None recorded. Procedures Surgical History Date Name Laterality Status Provider Name and Address Organization Details Recorded Time Back Surgery completed [facility] 05/21/2024 10:17:19 section completed [facility] 05/21/2024 10:17:33 Appendectomy completed [facility] 05/21/2024 10:17:40 Cholecystectomy completed [facility] 05/21/2024 10:17:48 hysterectomy completed [facility] 05/21/2024 10:17:58 Gastric bypass for obesity completed [facility] 05/21/2024 10:18:08 Imaging Results Imaging Date Name Status LastModified by Organiz ation Details LastModified Time 06/11/2024 MRI, lumbar spine, w/wo contrast completed [email or web address] Information not available 06/12/2024 11:20:48 08/19/2024 MRI, cervical spine, w/wo contrast completed [email or web address] Information not available 01/27/2025 16:06:42 Procedure Notes [...] Updated DateTime 05/21/2024 160.02 cm 33.7 kg/m2 96305.55 g 130 mm[Hg] 82 mm[Hg] [facility] 4 10:25:23 Date Recorded Body height Body mass index (BMI) Body weight Systolic blood pressure Diastolic blood pressure Provider Name and Address Organization Details Last Updated DateTime 07/02/2024 160.02 cm 33.7 kg/m2 60814.55 g 126 mm[Hg] 82 mm[Hg] [facility] 4 11:21:39 Date Recorded Body height Body mass index (BMI) Body weight Systolic blood pressure Diastolic blood pressure Provider Name and Address Organization Details Last Updated DateTime 10/17/2024 160.02 cm 33.7 kg/m2 23413.55 g 122 mm[Hg] 82 mm[Hg] [facility] 5 09:17:07 Social History None recorded. [...] SNOMED-CT Code Diagnosis ICD10 Code Diagnosis Note [id number] SKIP KAUFMAN PA-C NEUROSURG [facility] [address] [place] [address] 05/21/2024 09:59:46 05/23/2024 14:19:21 Lumbar radiculopathy [id number] M54.16 [id number] SKIP KAUFMAN [facility] [address] [place] [address] 07/02/2024 10:12:30 07/07/2024 10:32:51 Lumbar radiculopathy [id number] M54.16 Low back pain [id number] M54.50 [id number] VÍCTOR WALKER MD NEUROSURG [facility] [address] [place] [address] 10/17/2024 09:09:50 10/18/2024 05:47:25 Headache [id number] R51.9 Health Concerns Section Related Observation LastModified by Organization Detai ls LastModified Time None Recorded Concern Status LastModified by Organization Details LastModified Time None Recorded Advance Directives Directive None Recorded Payers Insurance Date Sequence Insurance Name Policy Number Policy Junior Covered Member ID Junior Member ID Guarantor Name 10/15/2024 1 [employer] (EPO) [id number] Kassi Claudio [id number] Kassi Claudio Notes Date Note Type [...] on warfarin. SKIP KAUFMAN PA-C [address] [place], [address], [facility] 05/21/2024 11:01:32 4 text/html Kassi Claudio [...] resolved. She had her MRI completed at [facility] on 06/11/2024 but did not obtain a disc with the MRI images to bring to her appointment today. SKIP KAUFMAN PA-C [address] [place], [address], [facility] 07/02/2024 11:49:01 5 text/html Kassi Claudio [...] massager seems to help. VÍCTOR WALKER MD [address] [place] [address], [id number], [facility] 10/17/2024 12:23:13 OBGyn Episode No OBEpisode recorded.
[2025-03-02 20:57] LABS: Total Iron Binding Capacity 452 ug/dL (265-497)
[2025-03-02 22:25] LABS: Vitamin B12 > 1000 pg/mL (239-931)
== END 2025-03-02 23:59 | disposition home or self-care (01) ==
LOC: LAB.DROPOF 20:45
PROVIDERS: PCP Family Medicine; Visit Provider Family Medicine
DX: K21.00 Gastro-esophageal reflux disease with esophagitis, without bleeding (principal); I10 Essential (primary) hypertension; Z68.32 Body mass index [BMI] 32.0-32.9, adult; E66.9 Obesity, unspecified
CPT/HCPCS: 80061; 82607; 83540; 83550

== ENCOUNTER 2025-03-13 17:45 | Outpatient (CLI) | payer OTHER, SELFPAY ==
--- NOTE | 2025-03-13 17:48 | XR_ITS ---
PROCEDURE INFORMATION: Exam: XR Thoracic Spine Exam date and time: 03/13/2025 5:55 PM Age: 55 years old Clinical indication: Pain in thoracic spine; Additional info: Back pain TECHNIQUE: Imaging protocol: Radiologic exam of the thoracic spine. Views: 3 views. Total images: 4 COMPARISON: CT THORACIC SPINE WO CON 12/19/2024 10:30 AM FINDINGS: Bones/joints: The thoracic spine demonstrates mild degenerative changes at multiple levels. Disc space narrowing noted at multiple levels. No evidence of acute fracture. Soft tissues: Unremarkable. IMPRESSION: 1. The thoracic spine demonstrates mild degenerative changes at multiple levels. 2. Disc space narrowing noted at multiple levels. 3. No evidence of acute fracture.
--- NOTE | 2025-03-13 17:48 | XR_ITS ---
PROCEDURE INFORMATION: Exam: XR Left Shoulder Exam date and time: 03/13/2025 5:55 PM Age: 55 years old Clinical indication: Other: Pain under left clavicle; Additional info: L upper back pain TECHNIQUE: Imaging protocol: Radiologic exam of the left shoulder. Views: 2 or more views. Total images: 3 COMPARISON: MR SHOULDER LT WO CON 02/17/2025 7:20 AM FINDINGS: Bones/joints: No evidence of acute fracture or dislocation. Soft tissues: Soft tissues are within normal limits. IMPRESSION: No evidence of acute fracture or dislocation.
--- OUTSIDE RECORDS SUMMARY | 2025-03-13 17:49 | XMS_ITS ---
Author Organization Unknown Medications Medication Instructions Effective Dates (start - stop) Status estradiol 1 MG Oral Tablet 06-16T00:00:00.000+00 :00 - Completed estradiol 1 MG Oral Tablet 07-14T:00:00.000+00 :00 - Completed estradiol 1 MG Oral Tablet 08-07T:00:00.000+00 :00 - Completed estradiol 1 MG Oral Tablet :00:00.000+00 :00 - Completed pregabalin 100 MG Oral Capsule 2 755-67-76D84:00:00.000+00 :00 - Completed pregabalin 100 MG Oral Capsule 2 545-85-93X72:00:00.000+00 :00 - Completed pregabalin 100 MG Oral Capsule 2 500-57-71G14:00:00.000+00 :00 - Completed baclofen 5 MG Oral Tablet 3-0 3-T:00:00.000+00 :00 - Completed baclofen 5 MG Oral Tablet 3-0 -T00:00:00.000+00 :00 - Completed pregabalin 100 MG Oral Capsule 2 111-76-16X61:00:00.000+00 :00 - Completed baclofen 5 MG Oral Tablet 3-0 -T:00:00.000+00 :00 - Completed baclofen 10 MG Oral Tablet 11-14T:00:00.000+00 :00 - Completed pregabalin 100 MG Oral Capsule 2 110-54-30S63:00:00.000+00 :00 - Completed baclofen 10 MG Oral Tablet 09-26T00:00:00.000+00 :00 - Completed pregabalin 100 MG Oral Capsule 2 825-50-59Q48:00:00.000+00 :00 - Completed pregabalin 100 MG Oral Capsule 2 160-99-40R07:00:00.000+00 :00 - Completed pregabalin 100 MG Oral Capsule 2 844-39-93Y27:00:00.000+00 :00 - Completed baclofen 5 MG Oral Tablet :00:00.000+00 :00 - Completed pregabalin 100 MG Oral Capsule 2 187-58-30D15:00:00.000+00 :00 - Completed pregabalin 100 MG Oral Capsule 2 163-09-75C83:00:00.000+00 :00 - Completed carvedilol 6.25 MG Oral Tablet 2 712-50-26M46:00:00.000+00 :00 - Completed baclofen 10 MG Oral Tablet :00:00.000+00 :00 - Completed pregabalin 100 MG Oral Capsule 2 131-81-50B45:00:00.000+00 :00 - Completed tizanidine 4 MG Oral Tablet 2021:00:00.000+00 :00 - Completed carvedilol 6.25 MG Oral Tablet 2 084-39-01O73:00:00.000+00 :00 - Completed ropinirole 1 MG Oral Tablet 2022:00:00.000+00 :00 - Completed ropinirole 1 MG Oral Tablet 2021:00:00.000+00 :00 - Completed fluconazole 100 MG Oral Tablet 424-16-01O41:00:00.000+00 :00 - Completed warfarin sodium 5 MG Oral Tablet 6386-23-87Q78:00:00.000+00 :00 - Completed warfarin sodium 5 MG Oral Tablet 9715-68-65B64:00:00.000+00 :00 - Completed clopidogrel 75 MG Oral Tablet 05-10-06:00:00.000+00 :00 - Completed fluconazole 200 MG Oral Tablet 690-49-76R24:00:00.000+00 :00 - Completed ropinirole 1 MG Oral Tablet 2022:00:00.000+00 :00 - Completed warfarin sodium 2 MG Oral Tablet 3387-99-52B62:00:00.000+00 :00 - Completed losartan potassium 50 MG Oral Tablet 4491-27-96P35:00:00.000+00 :00 - Completed duloxetine 60 MG Delayed Rel ease Oral Capsule 7049-98-73V85:00:00.000+00 :00 - Completed carvedilol 6.25 MG Oral Tablet 2 895-79-63N01:00:00.000+00 :00 - Completed prednisone 20 MG Oral Tablet 12-19-22:00:00.000+00 :00 - Completed clopidogrel 75 MG Oral Tablet 07-12-12:00:00.000+00 :00 - Completed esomeprazole 40 MG Delayed R elease Oral Capsule 0320-57-32S36:00:00.000+00 :00 - Completed warfarin sodium 2 MG Oral Tablet 8447-98-68G76:00:00.000+00 :00 - Completed warfarin sodium 5 MG Oral Tablet 1793-98-84E50:00:00.000+00 :00 - Completed clopidogrel 75 MG Oral Tablet 06-03-01:00:00.000+00 :00 - Completed carvedilol 6.25 MG Oral Tablet 2 471-81-78V68:00:00.000+00 :00 - Completed warfarin sodium 5 MG Oral Tablet 0019-97-57X03:00:00.000+00 :00 - Completed {6 (azithromycin 250 MG Oral Tablet) } Pack 4825-56-02F60:00:00.000+00 :00 - Completed cefdinir 300 MG Oral Capsule 12-15-26:00:00.000+00 :00 - Completed tizanidine 4 MG Oral Tablet 2021:00:00.000+00 :00 - Completed prednisone 5 MG Oral Tablet 2022:00:00.000+00 :00 - Completed fluconazole 200 MG Oral Tablet 2 121-64-12W49:00:00.000+00 :00 - Completed prednisone 5 MG Oral Tablet 2022:00:00.000+00 :00 - Completed prednisone 20 MG Oral Tablet 12-15-16:00:00.000+00 :00 - Completed rivaroxaban 20 MG Oral Table t [Xarelto] 2336-10-39L22:00:00.000+00 :00 - Completed {21 (methylprednisolone 4 MG Oral Tablet) } Pack 0500-20-35W41:00:00.000+00 :00 - Completed spironolactone 50 MG Oral Tablet 8184-04-54K38:00:00.000+00 :00 - Completed spironolactone 50 MG Oral Tablet 2007-45-52U21:00:00.000+00 :00 - Completed spironolactone 50 MG Oral Tablet 2732-15-17H84:00:00.000+00 :00 - Completed duloxetine 60 MG Delayed Rel ease Oral Capsule 3875-43-49Q02:00:00.000+00 :00 - Completed prednisone 20 MG Oral Tablet 12-19-18:00:00.000+00 :00 - Completed azithromycin 500 MG Oral Tablet 1148-69-59D03:00:00.000+00 :00 - Completed spironolactone 50 MG Oral Tablet 4353-91-30H01:00:00.000+00 :00 - Completed prednisone 20 MG Oral Tablet 202 12-16-09:00:00.000+00 :00 - Completed prednisone 20 MG Oral Tablet 12-19-10:00:00.000+00 :00 - Completed clopidogrel 75 MG Oral Tablet 06-11-09:00:00.000+00 :00 - Completed duloxetine 60 MG Delayed Rel ease Oral Capsule 0163-48-24Z13:00:00.000+00 :00 - Completed tizanidine 4 MG Oral Tablet 2021:00:00.000+00 :00 - Completed duloxetine 60 MG Delayed Rel ease Oral Capsule 3660-96-20H36:00:00.000+00 :00 - Completed rivaroxaban 20 MG Oral Table t [Xarelto] 4186-24-01H88:00:00.000+00 :00 - Completed hydroxychloroquine sulfate 2 00 MG Oral Tablet 1951-25-90P10:00:00.000+00 :00 - Completed ropinirole 1 MG Oral Tablet 2021:00:00.000+00 :00 - Completed esomeprazole 40 MG Delayed R elease Oral Capsule 4785-52-78H83:00:00.000+00 :00 - Completed torsemide 20 MG Oral Tablet 2022:00:00.000+00 :00 - Completed cyclobenzaprine hydrochlorid e 10 MG Oral Tablet 3837-57-88Q28:00:00.000+00 :00 - Completed torsemide 20 MG Oral Tablet 2022:00:00.000+00 :00 - Completed gabapentin 400 MG Oral Capsule 2 588-63-20C72:00:00.000+00 :00 - Completed hydroxychloroquine sulfate 2 00 MG Oral Tablet 7458-20-46V51:00:00.000+00 :00 - Completed losartan potassium 50 MG Oral Tablet 7974-59-40S56:00:00.000+00 :00 - Completed torsemide 20 MG Oral Tablet 2021:00:00.000+00 :00 - Completed torsemide 20 MG Oral Tablet 2021:00:00.000+00 :00 - Completed hydroxychloroquine sulfate 2 00 MG Oral Tablet 2411-55-56W58:00:00.000+00 :00 - Completed esomeprazole 40 MG Delayed R elease Oral Capsule 2076-16-24B76:00:00.000+00 :00 - Completed rivaroxaban 20 MG Oral Table t [Xarelto] 9916-35-77I57:00:00.000+00 :00 - Completed gabapentin 400 MG Oral Capsule 2 880-95-05O36:00:00.000+00 :00 - Completed rivaroxaban 20 MG Oral Table t [Xarelto] 2688-53-44S22:00:00.000+00 :00 - Completed losartan potassium 50 MG Oral Tablet 4745-57-42J65:00:00.000+00 :00 - Completed hydroxychloroquine sulfate 2 00 MG Oral Tablet 5191-25-82O31:00:00.000+00 :00 - Completed esomeprazole 40 MG Delayed R elease Oral Capsule 5615-61-00X59:00:00.000+00 :00 - Completed hydroxychloroquine sulfate 2 00 MG Oral Tablet 6538-93-23I16:00:00.000+00 :00 - Completed ropinirole 1 MG Oral Tablet 2021:00:00.000+00 :00 - Completed ropinirole 1 MG Oral Tablet 2021:00:00.000+00 :00 - Completed losartan potassium 50 MG Oral Tablet 8765-89-09V32:00:00.000+00 :00 - Completed acetaminophen 325 MG / hydro codone bitartrate 10 MG Oral Tablet 3047-79-78H91:00:00.000+0 0 :00 - Completed acetaminophen 325 MG / hydro codone bitartrate 10 MG Oral Tablet 5762-39-57S41:00:00.000+0 0 :00 - Completed acetaminophen 325 MG / hydro codone bitartrate 10 MG Oral Tablet 3322-54-98L37:00:00.000+0 0 :00 - Completed acetaminophen 325 MG / hydro codone bitartrate 10 MG Oral Tablet 6011-98-21Z90:00:00.000+0 0 :00 - Completed acetaminophen 325 MG / hydro codone bitartrate 10 MG Oral Tablet 2614-98-69L75:00:00.000+0 0 :00 - Completed acetaminophen 325 MG / hydro codone bitartrate 10 MG Oral Tablet 0243-81-74P72:00:00.000+0 0 :00 - Completed acetaminophen 325 MG / hydro codone bitartrate 10 MG Oral Tablet 3657-05-60U76:00:00.000+0 0 :00 - Completed acetaminophen 325 MG / hydro codone bitartrate 10 MG Oral Tablet 2934-31-36C58:00:00.000+0 0 :00 - Completed acetaminophen 325 MG / hydro codone bitartrate 10 MG Oral Tablet 0432-77-70C53:00:00.000+0 0 :00 - Completed acetaminophen 325 MG / hydro codone bitartrate 10 MG Oral Tablet 6299-81-76Y07:00:00.000+0 0 :00 - Completed Patient Care team information Name Category Status Period Participants - - Proposed period not known -
== END 2025-03-13 23:59 | disposition home or self-care (01) ==
LOC: RAD 17:48
PROVIDERS: PCP Family Medicine; Visit Provider Student in an Organized Health Care Education/Training Program
DX: M47.814 Spondylosis without myelopathy or radiculopathy, thoracic region (principal); M48.04 Spinal stenosis, thoracic region
CPT/HCPCS: 72072; 73030

== ENCOUNTER 2025-03-16 10:28 | Outpatient (POV) | payer OTHER, SELFPAY ==
--- OUTSIDE RECORDS SUMMARY | 2025-03-16 10:30 | XMS_ITS | Data Portability ---
Author Organization [facility] SH[facility] Ross[facility] [place] [facility] Address [address] [place] [address] Care Team Providers Care District Court Administrator Name Role Phone SANGEETA BENOIT Primary Care Provider [phone] Assessment Encounter Date Assessment Date Assessment LastModified [...] 6 weeks once imaging has been completed. [email or web address] Not available 05/21/2024 11:00:40 07/02/2024 07/02/2024 Kassi [...] follow-up appointment in 6 weeks as well. [email or web address] Not available 07/02/2024 11:48:35 10/17/2024 10/17/2024 Kassi [...] headaches, consider further evaluation by headache specialist. [email or web address] Not available 10/17/2024 12:21:54 Plan of Treatment Reminders Order Date Submit Date Provider Last Modified By Organization Details Last Modified Time Details Appointments None recorded. Lab None recorded. Referral None recorded. Procedures None recorded. Surgeries None recorded. Imaging None recorded. Medication Orders cyclobenzap rine 10 mg tablet 2023 024 [facility], [address] [place] [address], [id number], 11:01:23 Patient TargetsNo targets recorded. Patient InstructionsNo instructions recorded. Reason for Referral None Reported. Results Created Date Observation Date Name Description Value Unit Range Abnormal Flag Note LastModifiedBy Organization Detail LastModifiedTime 06/12/2006/11/2024 MRI, lumba r spine , w/wo contr ast No observ ation record ed. [email or web address] Not Available 2023 11:20:48 08/22/20 24 08/19/2024 MRI, cervi claribel spine , w/wo contr ast No observ ation record ed. [email or web address] Not Available 2024 16:06:42 Result Notes None recorded. Procedures Surgical History Date Name Laterality Status Provider Name and Address Organization Details Recorded Time Back Surgery completed [facility] 05/21/2024 10:17:19 section completed [facility] 05/21/2024 10:17:33 Appendectomy completed [facility] 05/21/2024 10:17:40 Cholecystectomy completed [facility] 05/21/2024 10:17:48 hysterectomy completed [facility] 05/21/2024 10:17:58 Gastric bypass for obesity completed [facility] 05/21/2024 10:18:08 Imaging Results None recorded. Procedure Notes None recorded. Medical Equipment None [...] Updated DateTime 10/17/2024 160.02 cm 33.7 kg/m2 17235.55 g 122 mm[Hg] 82 mm[Hg] [facility] 5 09:17:07 Date Recorded Body height Body mass index (BMI) Body weight Systolic blood pressure Diastolic blood pressure Provider Name and Address Organization Details Last Updated DateTime 05/21/2024 160.02 cm 33.7 kg/m2 73796.55 g 130 mm[Hg] 82 mm[Hg] [facility] 4 10:25:23 Date Recorded Body height Body mass index (BMI) Body weight Systolic blood pressure Diastolic blood pressure Provider Name and Address Organization Details Last Updated DateTime 07/02/2024 160.02 cm 33.7 kg/m2 83661.55 g 126 mm[Hg] 82 mm[Hg] [facility] 4 11:21:39 Social History None recorded. Functional Status None [...] SNOMED-CT Code Diagnosis ICD10 Code Diagnosis Note [id number] SKIP KAUFMAN PA-C [facility] [address] [place] [address] 05/21/2024 09:59:46 05/23/2024 14:19:21 Lumbar radiculopathy [id number] M54.16 [id number] SKIP KAUFMAN PA-C [facility] [address] [place] [address] 07/02/2024 10:12:30 07/07/2024 10:32:51 Lumbar radiculopathy [id number] M54.16 Low back pain [id number] M54.50 [id number] VÍCTOR WALKER MD NEUROSURG [facility] [address] [place] [address] 10/17/2024 09:09:50 10/18/2024 05:47:25 Headache [id number] R51.9 Health Concerns Section Related Observation LastModified by Organization Detai ls LastModified Time None Recorded Concern Status LastModified by Organization Details LastModified Time None Recorded Advance Directives Directive None Recorded Payers Insurance Date Sequence Insurance Name Policy Number Policy Junior Covered Member ID Junior Member ID Guarantor Name 10/15/2024 1 [employer] (EPO) [id number] Kassi Claudio [id number] Kassi Claudio Notes Date Note Type [...] being on warfarin. SKIP KAUFMAN PA-C [address] [place], [address], [facility] 05/21/2024 11:01:32 4 text/html Kassi Claudio is [...] her appointment today. SKIP KAUFMAN PA-C [address] [place], [address], [facility] 07/02/2024 11:49:01 5 text/html Kassi Claudio is [...] massager seems to help. VÍCTOR WALKER MD [address] [place], [address], [facility] 10/17/2024 12:23:13 OBGyn Episode No OBEpisode recorded.
--- NOTE | 2025-03-16 11:01 | EXP.PAIN.SOA ---
[facility] Disclaimer: The information contained in this section may have been updated after the patient was seen, as this information can be updated by other users. Medical History (Updated 03/16/25 @ 11:05 by Zoë Billingsley APRN) Upper back pain Epidermal inclusion cyst Chronic anticoagulation Calculus of ureterovesical junction (UVJ) Facial paresthesia Morbid obesity with body mass index (BMI) of 40.0 to 49.9 TIA (transient ischemic attack) Acute CVA (cerebrovascular accident) Left leg DVT Vasomotor symptoms due to menopause Stroke Lupus Asthma History of gastroesophageal reflux (GERD) Hypertension Dizziness Edema History of TIA (transient ischemic attack) History of DVT (deep vein thrombosis) Surgical History H/O gastric bypass History of hysterectomy History of section History of appendectomy History of cholecystectomy Family History Other Coronary artery disease Diabetes Social History Smoking Status: Never smoker second hand exposure: No alcohol intake: never substance use type: denies use current occupational status: employed Travel in the last 8 weeks?: None household members: spouse housing: house caffeine: Yes PM Subjective & Objective Subjective Subjective:: Patient is a pleasant 55-year-old female who presents today for worsening left scapular pain. Today she rates her pain a 7 out of 10. Patient from our last visit had seen orthopedics for her left shoulder however they have decided that it is not a rotator cuff tear and that our thinking time it should improve. Patient states that she is still having the chronic pain in this joint however on Sunday it just went to much more severe and is in the left scapular area to her mid back. Patient states it is constant and is interfering with everything including activities of daily living such as cooking and cleaning and even laying down. Patient is currently managed with Mason 10 mg 4 times a day, pregabalin 100 mg 3 times a day and baclofen 10 mg 4 times a day from our office along with compounded cream. She does state that she needs refills including the cream. Her Loi has been reviewed and is appropriate. Review of Systems: General: No recent weight changes, no fever, no sleep disturbances Respiratory: No cough, no shortness of air, no recurring pulmonary infections Cardiovascular/peripheral vascular: No chest pain, no palpitations, no edema, no shortness of breath Gastrointestinal: No new onset incontinence, normal bowel movements reported Genitourinary: No new onset incontinence Musculoskeletal: Left scapular/mid back pain Psychiatric: [Normal mood/affect] Neurological: [Denies weakness in extremities], [denies balance issues] Pain at rest (0-10 scale): 7 Objective Objective:: Physical Exam: General: Alert and oriented x3, no acute distress, pleasant and cooperative Lungs: Respirations even and unlabored, symmetrical chest expansion Eyes: PERRL Musculoskeletal: Flexion and extension of thoracic [spine] somewhat guarded secondary to pain, [antalgic gait noted] extreme point tenderness along left rhomboid and left thoracic latissimus/paraspinous muscles Neurological: Speech clear, no gross sensory deficit Has patient had previous pain injection?: No Conservative treatment options previously tried: Home exercise plan Length of treatment: Longer than 12 weeks and Prescription medications Length of treatment: Longer than 12 weeks Meds Home Medications and Allergies Home Medications ?Medication ?Instructions ?Recorded ?Confirmed ?Type cyanocobalamin (vitamin B-12) 1,000 mcg SQ WEEKLY 01/01/24 03/13/25 History 1,000 mcg/mL injection solution hydroxychloroquine 200 mg tablet 200 mg PO BID 06/30/24 03/13/25 History ondansetron 4 mg disintegrating 4 mg PO BID PRN nausea and vomiting 10/16/24 03/13/25 History tablet albuterol sulfate 90 mcg/actuation 2 puff inhalation QID PRN 11/10/24 03/13/25 Rx aerosol inhaler shortness of breath or wheezing #8.5 grams aspirin 81 mg tablet,delayed 162 mg PO DAILY 11/10/24 03/13/25 History release dapagliflozin propanediol 10 mg 10 mg PO DAILY #90 tabs 11/10/24 03/13/25 Rx tablet (Farxiga) alendronate 10 mg tablet 10 mg PO DAILY 90 days #90 tabs 11/26/24 03/13/25 Rx warfarin 5 mg tablet 5 mg PO SUTUTHSA 12/22/24 03/13/25 History desvenlafaxine succinate 50 mg 50 mg PO DAILY #90 tabs 12/29/24 03/13/25 Rx tablet,extended release 24 hr (Pristiq) estradiol 0.01% (0.1 mg/gram) 1 appful vaginal DAILY 30 days 01/26/25 03/13/25 Rx vaginal cream (Estrace) #42.5 grams fezolinetant 45 mg tablet (Veozah) 45 mg PO DAILY #30 tabs 02/02/25 03/13/25 Rx promethazine 25 mg tablet 25 mg PO Q6H PRN nausea and 02/04/25 03/13/25 Rx vomiting #60 tabs baclofen 10 mg tablet 10 mg PO TID #90 tabs 02/09/25 03/13/25 Rx hydrocodone 10 mg-acetaminophen 1 tab PO 5XDAY #150 tabs 02/09/25 03/13/25 Rx 325 mg tablet pregabalin 100 mg capsule 100 mg PO QID #120 caps 02/09/25 03/13/25 Rx furosemide 20 mg tablet 20 mg PO DAILY 02/16/25 03/13/25 History omeprazole 20 mg capsule,delayed 20 mg PO DAILY 02/16/25 03/13/25 History release trazodone 100 mg tablet 100 mg PO DAILY PRN sleep #90 tabs 03/02/25 03/13/25 Rx methylprednisolone 4 mg tablets in See Rx Instructions PO PER PKG DIR 03/13/25 03/13/25 Rx a dose pack #21 tabs New Prescriptions to Start Prescriptions: Allergies Allergy/AdvReac Type Severity Reaction Status Date / Time gum mastic (From MASTISOL Allergy Unknown Unknown Verified 03/13/25 17:15 ADHESIVE) allergy reaction measles, mumps, and rubella Allergy Unknown Unknown Verified 03/13/25 17:15 vaccine (MEASLES, MUMPS, AND allergy RUBELLA VACCINE) reaction methyl salicylate (From Allergy Unknown Unknown Verified 03/13/25 17:15 MASTISOL ADHESIVE) allergy reaction Penicillins (PENICILLINS) Allergy Unknown Hives Verified 03/13/25 17:15 storax (From MASTISOL Allergy Unknown Unknown Verified 03/13/25 17:15 ADHESIVE) allergy reaction Sulfa (Sulfonamide Allergy Unknown Hives Verified 03/13/25 17:15 Antibiotics) (SULFA (SULFONAMIDE ANTIBIOTICS)) sumatriptan (From IMITREX) Allergy Unknown Anaphylaxis Verified 03/13/25 17:15 sulfamethoxazole (From Allergy Unknown Verified 03/13/25 17:15 Bactrim) allergy reaction trimethoprim (From Bactrim) Allergy Unknown Verified 03/13/25 17:15 allergy reaction adhesive AdvReac Mild Rash Verified 03/13/25 17:15 Assessment and Plan *Assessment and plan (1) Left shoulder pain: Status: Acute Category: Medical Code(s): M25.512 - Pain in left shoulder (2) Myofascial pain on left side: Status: Acute Category: Medical Code(s): M79.18 - Myalgia, other site Plan Patient is experiencing extreme pain in and around her left shoulder with point tenderness at the left rhomboid, left thoracic latissimus/paraspinous muscles. I did discuss with the patient that I do believe she would benefit from trigger point injections at this location. Patient has had shoulder pain for longer than 3 months. Patient has also tried oral medications, heat and ice, topicals, at home stretching exercise for longer than 12 weeks. Patient has even been seen by the [facility] for this pain and had imaging with no acute findings. I will refill the patient's Mason, pregabalin and baclofen and provide a 1 month supply of this medication. Patient will be scheduled for trigger point injections of her left rhomboid, left thoracic latissimus/paraspinous muscles. These will be done without fluoroscopic guidance or ultrasound. Risks and benefits of the medication have been explained in detail to the patient. The patient does understand the risk of dependence on the medication when given over a prolonged period. Patient has been advised of risks of oversedation with the prescribed medication. Narcan has been offered to the paitent in the event of oversedation. Patient has been advised that a family member should also be educated regarding administration of Narcan. The patient has been advised to consult with his/her primary care provider and pharmacist regarding drug-drug interaction of medications currently prescribed. Patient has been prescribed a controlled substance after being counseled on the medication, medication safety, and possible side effects. Opioid contract was reviewed and signed by the patient, and that they have agreed to all of the terms set forth by our compliance program. A UDS is needed to verify patient's compliance with our office pain contract. This is ordered based off specific treatments related to chronic pain with the potential to abuse certain medications. Patient has been instructed to contact the clinic with any concerns before the next appointment. Dr. Venegas has reviewed this note and agrees with this plan of care. This note was dictated using voice recognition software and make contain errors or omissions.
[2025-03-16 11:26] VITALS: BP 137/77; PULSE 57; RESP 14; O2SAT 100; BMI 10.1
== END 2025-03-16 23:59 | disposition home or self-care (01) ==
PROVIDERS: PCP Family Medicine; Visit Provider Nurse Practitioner Family
DX: M25.512 Pain in left shoulder (principal); M79.18 Myalgia, other site
CPT/HCPCS: 99212; G0463

== ENCOUNTER 2025-03-17 07:26 | Outpatient (CLI) | payer OTHER, SELFPAY ==
--- NOTE | 2025-03-17 07:29 | XR_ITS ---
FINAL REPORT CLINICAL HISTORY: left 5th met fracture in December 2024 COMPARISON: 12/19/2024, 01/19/2025 FINDINGS: AP, oblique and lateral views of the left foot were obtained. There is no change in appearance of the fracture at the base of the fifth metatarsal, and no evidence of union. There is a small calcification adjacent to the head of the fifth metatarsal which is also unchanged, and may represent a small avulsion fracture. Mild degenerative changes are noted in the left foot. Soft tissues are otherwise unremarkable. IMPRESSION: No change in the appearance of the fracture of the base of the fifth metatarsal, with no definite callus formation identified. Reviewed, Interpreted and Dictated by Michaela Carlson MD Transcribed by Kelly Masters Authenticated and [facility]
--- OUTSIDE RECORDS SUMMARY | 2025-03-17 07:29 | XMS_ITS ---
Author Organization Unknown Medications Medication Instructions Effective Dates (start - stop) Status estradiol 1 MG Oral Tablet 06-16T00:00:00.000+00 :00 - Completed estradiol 1 MG Oral Tablet 07-14T:00:00.000+00 :00 - Completed estradiol 1 MG Oral Tablet :00:00.000+00 :00 - Completed estradiol 1 MG Oral Tablet :00:00.000+00 :00 - Completed pregabalin 100 MG Oral Capsule 2 918-06-13V06:00:00.000+00 :00 - Completed pregabalin 100 MG Oral Capsule 2 289-79-30G97:00:00.000+00 :00 - Completed pregabalin 100 MG Oral Capsule 2 828-35-47X86:00:00.000+00 :00 - Completed baclofen 5 MG Oral Tablet 3-0 3-T:00:00.000+00 :00 - Completed baclofen 5 MG Oral Tablet 3-0 -T00:00:00.000+00 :00 - Completed pregabalin 100 MG Oral Capsule 2 970-33-26B72:00:00.000+00 :00 - Completed baclofen 5 MG Oral Tablet 3-0 -T:00:00.000+00 :00 - Completed baclofen 10 MG Oral Tablet 11-14T:00:00.000+00 :00 - Completed pregabalin 100 MG Oral Capsule 2 941-23-84B92:00:00.000+00 :00 - Completed baclofen 10 MG Oral Tablet 09-26T00:00:00.000+00 :00 - Completed pregabalin 100 MG Oral Capsule 2 650-57-82N03:00:00.000+00 :00 - Completed pregabalin 100 MG Oral Capsule 2 463-09-05H69:00:00.000+00 :00 - Completed pregabalin 100 MG Oral Capsule 2 117-42-54R67:00:00.000+00 :00 - Completed baclofen 5 MG Oral Tablet :00:00.000+00 :00 - Completed pregabalin 100 MG Oral Capsule 2 422-12-36D71:00:00.000+00 :00 - Completed pregabalin 100 MG Oral Capsule 2 030-03-67W69:00:00.000+00 :00 - Completed carvedilol 6.25 MG Oral Tablet 2 071-99-14L41:00:00.000+00 :00 - Completed baclofen 10 MG Oral Tablet :00:00.000+00 :00 - Completed pregabalin 100 MG Oral Capsule 2 102-49-37P31:00:00.000+00 :00 - Completed tizanidine 4 MG Oral Tablet 2021:00:00.000+00 :00 - Completed carvedilol 6.25 MG Oral Tablet 2 643-13-58K42:00:00.000+00 :00 - Completed ropinirole 1 MG Oral Tablet 2022:00:00.000+00 :00 - Completed ropinirole 1 MG Oral Tablet 2021:00:00.000+00 :00 - Completed fluconazole 100 MG Oral Tablet 458-00-81Y08:00:00.000+00 :00 - Completed warfarin sodium 5 MG Oral Tablet 6341-10-08X61:00:00.000+00 :00 - Completed warfarin sodium 5 MG Oral Tablet 8704-74-00D60:00:00.000+00 :00 - Completed clopidogrel 75 MG Oral Tablet 05-10-06:00:00.000+00 :00 - Completed fluconazole 200 MG Oral Tablet 851-01-56R75:00:00.000+00 :00 - Completed ropinirole 1 MG Oral Tablet 2022:00:00.000+00 :00 - Completed warfarin sodium 2 MG Oral Tablet 3650-18-03Y54:00:00.000+00 :00 - Completed losartan potassium 50 MG Oral Tablet 9208-26-99X22:00:00.000+00 :00 - Completed duloxetine 60 MG Delayed Rel ease Oral Capsule 6829-17-36C36:00:00.000+00 :00 - Completed carvedilol 6.25 MG Oral Tablet 2 241-56-06T80:00:00.000+00 :00 - Completed prednisone 20 MG Oral Tablet 12-19-22:00:00.000+00 :00 - Completed clopidogrel 75 MG Oral Tablet 07-12-12:00:00.000+00 :00 - Completed esomeprazole 40 MG Delayed R elease Oral Capsule 8602-27-53N20:00:00.000+00 :00 - Completed warfarin sodium 2 MG Oral Tablet 2280-58-64N07:00:00.000+00 :00 - Completed warfarin sodium 5 MG Oral Tablet 8584-64-07S68:00:00.000+00 :00 - Completed clopidogrel 75 MG Oral Tablet 06-03-01:00:00.000+00 :00 - Completed carvedilol 6.25 MG Oral Tablet 2 084-75-84T09:00:00.000+00 :00 - Completed warfarin sodium 5 MG Oral Tablet 4639-80-83S42:00:00.000+00 :00 - Completed {6 (azithromycin 250 MG Oral Tablet) } Pack 8515-58-54Q33:00:00.000+00 :00 - Completed cefdinir 300 MG Oral Capsule 12-15-26:00:00.000+00 :00 - Completed tizanidine 4 MG Oral Tablet 2021:00:00.000+00 :00 - Completed prednisone 5 MG Oral Tablet 2022:00:00.000+00 :00 - Completed fluconazole 200 MG Oral Tablet 2 301-88-97H33:00:00.000+00 :00 - Completed prednisone 5 MG Oral Tablet 2022:00:00.000+00 :00 - Completed prednisone 20 MG Oral Tablet 12-15-16:00:00.000+00 :00 - Completed rivaroxaban 20 MG Oral Table t [Xarelto] 2272-42-07S06:00:00.000+00 :00 - Completed {21 (methylprednisolone 4 MG Oral Tablet) } Pack 6810-60-22P19:00:00.000+00 :00 - Completed spironolactone 50 MG Oral Tablet 3995-90-19R82:00:00.000+00 :00 - Completed spironolactone 50 MG Oral Tablet 6974-48-60S03:00:00.000+00 :00 - Completed spironolactone 50 MG Oral Tablet 3964-32-19T96:00:00.000+00 :00 - Completed duloxetine 60 MG Delayed Rel ease Oral Capsule 6306-11-25N32:00:00.000+00 :00 - Completed prednisone 20 MG Oral Tablet 12-19-18:00:00.000+00 :00 - Completed azithromycin 500 MG Oral Tablet 7580-45-18I44:00:00.000+00 :00 - Completed spironolactone 50 MG Oral Tablet 4672-25-46B06:00:00.000+00 :00 - Completed prednisone 20 MG Oral Tablet 202 12-16-09:00:00.000+00 :00 - Completed prednisone 20 MG Oral Tablet 12-19-10:00:00.000+00 :00 - Completed clopidogrel 75 MG Oral Tablet 06-11-09:00:00.000+00 :00 - Completed duloxetine 60 MG Delayed Rel ease Oral Capsule 9418-74-34G26:00:00.000+00 :00 - Completed tizanidine 4 MG Oral Tablet 2021:00:00.000+00 :00 - Completed duloxetine 60 MG Delayed Rel ease Oral Capsule 9111-26-19S80:00:00.000+00 :00 - Completed rivaroxaban 20 MG Oral Table t [Xarelto] 1950-37-01M27:00:00.000+00 :00 - Completed hydroxychloroquine sulfate 2 00 MG Oral Tablet 9213-02-05S39:00:00.000+00 :00 - Completed ropinirole 1 MG Oral Tablet 2021:00:00.000+00 :00 - Completed esomeprazole 40 MG Delayed R elease Oral Capsule 0568-83-64K91:00:00.000+00 :00 - Completed torsemide 20 MG Oral Tablet 2022:00:00.000+00 :00 - Completed cyclobenzaprine hydrochlorid e 10 MG Oral Tablet 0268-96-10C68:00:00.000+00 :00 - Completed torsemide 20 MG Oral Tablet 2022:00:00.000+00 :00 - Completed gabapentin 400 MG Oral Capsule 2 932-95-79J49:00:00.000+00 :00 - Completed hydroxychloroquine sulfate 2 00 MG Oral Tablet 4234-04-06W81:00:00.000+00 :00 - Completed losartan potassium 50 MG Oral Tablet 4471-31-47G91:00:00.000+00 :00 - Completed torsemide 20 MG Oral Tablet 2021:00:00.000+00 :00 - Completed torsemide 20 MG Oral Tablet 2021:00:00.000+00 :00 - Completed hydroxychloroquine sulfate 2 00 MG Oral Tablet 4500-61-50U00:00:00.000+00 :00 - Completed esomeprazole 40 MG Delayed R elease Oral Capsule 7426-93-61J96:00:00.000+00 :00 - Completed rivaroxaban 20 MG Oral Table t [Xarelto] 9448-20-94T62:00:00.000+00 :00 - Completed gabapentin 400 MG Oral Capsule 2 767-97-33P34:00:00.000+00 :00 - Completed rivaroxaban 20 MG Oral Table t [Xarelto] 1488-71-84O26:00:00.000+00 :00 - Completed losartan potassium 50 MG Oral Tablet 2485-03-99H90:00:00.000+00 :00 - Completed hydroxychloroquine sulfate 2 00 MG Oral Tablet 0579-16-39P29:00:00.000+00 :00 - Completed esomeprazole 40 MG Delayed R elease Oral Capsule 7491-90-61N19:00:00.000+00 :00 - Completed hydroxychloroquine sulfate 2 00 MG Oral Tablet 4892-09-42D52:00:00.000+00 :00 - Completed ropinirole 1 MG Oral Tablet 2021:00:00.000+00 :00 - Completed ropinirole 1 MG Oral Tablet 2021:00:00.000+00 :00 - Completed losartan potassium 50 MG Oral Tablet 0237-42-62G96:00:00.000+00 :00 - Completed acetaminophen 325 MG / hydro codone bitartrate 10 MG Oral Tablet 2113-91-00X09:00:00.000+0 0 :00 - Completed acetaminophen 325 MG / hydro codone bitartrate 10 MG Oral Tablet 2298-28-36W55:00:00.000+0 0 :00 - Completed acetaminophen 325 MG / hydro codone bitartrate 10 MG Oral Tablet 9083-90-11I33:00:00.000+0 0 :00 - Completed acetaminophen 325 MG / hydro codone bitartrate 10 MG Oral Tablet 3287-30-29B74:00:00.000+0 0 :00 - Completed acetaminophen 325 MG / hydro codone bitartrate 10 MG Oral Tablet 4136-47-11Q59:00:00.000+0 0 :00 - Completed acetaminophen 325 MG / hydro codone bitartrate 10 MG Oral Tablet 0032-14-88K35:00:00.000+0 0 :00 - Completed acetaminophen 325 MG / hydro codone bitartrate 10 MG Oral Tablet 5505-26-76N10:00:00.000+0 0 :00 - Completed acetaminophen 325 MG / hydro codone bitartrate 10 MG Oral Tablet 7050-13-64X40:00:00.000+0 0 :00 - Completed acetaminophen 325 MG / hydro codone bitartrate 10 MG Oral Tablet 4733-28-85G06:00:00.000+0 0 :00 - Completed acetaminophen 325 MG / hydro codone bitartrate 10 MG Oral Tablet 6465-84-75M20:00:00.000+0 0 :00 - Completed Patient Care team information Name Category Status Period Participants - - Proposed period not known -
== END 2025-03-17 23:59 | disposition home or self-care (01) ==
LOC: RAD 07:27
PROVIDERS: PCP Family Medicine; Visit Provider Podiatrist
DX: S92.352A Displaced fracture of fifth metatarsal bone, left foot, initial encounter for closed fracture
CPT/HCPCS: 73630

== ENCOUNTER 2025-03-25 07:23 | Outpatient (CLI) | payer OTHER, SELFPAY ==
--- OUTSIDE RECORDS SUMMARY | 2025-03-25 07:27 | XMS_ITS | Encounter Summary ---
Author Organization [employer] [facility] Address [address] [place] [address] Care Team Providers Care Spool Carrier Name Role Phone Unavailable Primary Care Provider Unavailabl e Encounter Details Date Type Department Care Team (Late st Contact Info) Description 06/21/2021 Transcribed Document [facility] [place] [address] [place] [address] ProviderRikki MD [address] [place], [place] [id number] Social History Tobacco Use Types Packs/Day Years Used Date Smoking Tobacco: Never Assessed Comments Unknown Sex and Gender Information Value Date Recorded Sex Assigned at Female 04/11/2022 6:48 PM CDT Legal Sex Female 6:48 PM CDT Gender Identity Female 04/11/2022 6:48 PM CDT Sexual Orientation Not on file documented as of this encounter Miscellaneous Notes * Cerner Conversion Note - Historical ProviderMD - 06/21/2021 9:55 PM CDT Broset Violence Assessment Entered On: 06/21/2021 22:29 EDT Performed On: 06/21/2021 22:27 EDT by Aruna Garcia Broset Violence Assessment Broset Violence Checklist of Symptoms : None Broset Violence Symptoms Subtotal : 0 Broset Violence Symptoms Indicator : Low risk (0) Aruna Garcia - 06/21/2021 22:27 EDT Electronically signed by Giacomo Azar Conversion Woodworking Machine Operator Cerrandi at 01/28/2023 11:14 PM CDT documented in this encounter Plan of Treatment Not on file documented as of this encounter Visit Diagnoses Not on filedocumented in this encounter
--- OUTSIDE RECORDS SUMMARY | 2025-03-25 07:27 | XMS_ITS | Encounter Summary ---
Author Organization [employer] [facility] Address [address] [place] [address] Care Team Providers Care Square Cutter Name Role Phone Unavailable Primary Care Provider Unavailabl e Encounter Details Date Type Department Care Team (Late st Contact Info) Description 06/03/2019 Transcribed Document [facility] [place] [address] [place] [address] ProviderRikki MD [address] [place], [place] [id number] Social History Tobacco Use Types Packs/Day Years Used Date Smoking Tobacco: Never Assessed Comments Unknown Sex and Gender Information Value Date Recorded Sex Assigned at Female 04/11/2022 6:48 PM CDT Legal Sex Female 6:48 PM CDT Gender Identity Female 04/11/2022 6:48 PM CDT Sexual Orientation Not on file documented as of this encounter Miscellaneous Notes * Cerner Conversion Note - Rikki ProviderMD - 06/03/2019 10:46 AM CDT ED Triage Entered On: 06/03/2019 10:56 EDT Performed On: 06/03/2019 10:53 EDT by MARC GREENWOOD RN ED Triage Across the Room Triage Date/Time : 06/03/2019 10:53 EDT Chief Complaint : pt has knot on top of hand , noticed it last night, + PMS + ROM CR < 3 sec MARC GREENWOOD RN - 06/03/2019 10:53 EDT MARC GREENWOOD RN - 06/03/2019 10:53 EDT DCP GENERIC CODE Tracking Group : [facility] ED MARC GREENWOOD RN - 06/03/2019 10:53 EDT Tracking Acuity : 3 - Urgent MARC GREENWOOD RN - 06/03/2019 12:13 EDT Mode of Arrival : Ambulatory Transported to ED by : Private vehicle To Room Via : Ambulate Accompanied By : Unaccompanied ED Vital Signs : Document Height & Weight : Document ED Allergies : Document ED Reason for Visit : Document Tried to Harm Yourself in the Past? : No Thoughts of Harming/Killing Yourself : No Recent Thoughts of Harming/Killing Others : No Offline Editor Needed : No MARC GREENWOOD RN - 06/03/2019 10:53 EDT Infectious Disease History Infectious Disease History : None Fever/Chills Last 48 Hours : No Travel To Regions with Travel Advisories : No Travel Outside [place] Within Last 30 Days : No Contact With Traveler to Advisory Region : No Tuberculosis Symptoms : None MARC GREENWOOD RN - 06/03/2019 10:53 EDT Vital Signs ED Temperature Source : Oral Temperature Mode : Fahrenheit Temperature, Fahrenheit : 98.2 Deg F ED Pain : Yes Clinical Temperature, C : 36.8 Deg C Oxygen Therapy Mode : Room air Peripheral Pulse Rate : 82 bpm Respiratory Rate : 16 Breaths/Min Systolic Blood Pressure : 128 mmHg Diastolic Blood Pressure : 80 mmHg Oxygen Saturation : 98 % MARC GREENWOOD RN - 06/03/2019 10:53 EDT Allergy (As Of: 06/03/2019 10:56:21 EDT) Allergies (Active) penicillin Estimated Onset Date: Unspecified ; Reactions: hives, hives ; Created By: KAVEH POLO; Reaction Status: Active ; Category: Drug ; Substance: penicillin ; Type: Allergy ; Updated By: KAVEH POLO; Reviewed Date: 06/03/2019 10:55 EDT sulfamethoxazole-trimethoprim Estimated Onset Date: Unspecified ; Reactions: hives, hives ; Created By: KAVEH POLO; Reaction Status: Active ; Category: Drug ; Substance: sulfamethoxazole-trimethoprim ; Type: Allergy ; Updated By: KAVEH POLO; Reviewed Date: 06/03/2019 10:55 EDT SUMAtriptan Estimated Onset Date: Unspecified ; Reactions: Other Anaphylactic Shock, Other Anaphylactic Shock ; Created By: KAVEH POLO; Reaction Status: Active ; Category: Drug ; Substance: SUMAtriptan ; Type: Allergy ; Updated By: CONTRIBUTOR_SYSTEM, HIST_KEAGAN; Reviewed Date: 06/03/2019 10:55 EDT Diagnosis Control ED (As Of: 06/03/2019 10:56:21 EDT) Diagnoses(Active) Hand pain-swelling Date: 06/03/2019 ; Diagnosis Type: Reason For Visit ; Confirmation: Complaint of ; Clinical Dx: Hand pain-swelling ; Classification: Medical ; Clinical Service: Emergency medicine ; Code: PNED ; Probability: 0 ; Diagnosis Code: [id number] ED Height and Weight Height Source : Stated Height Entry Format : [place] Height, Feet : 5 ft(Converted to: 152 cm, 60 Inch) Height, Inches : 3 Inch(Converted to: 0 ft 3 Inch, 7.62 cm) Clinical Height : 160.02 cm Weight Source, ED : Critical estimated dosing weight Weight Entry Format : [place] Weight, Pounds : 220 lb Clinical Dosing Weight : 100 kg Body Surface Area (BSA) : 2.02 m2 Body Mass Index : 39.1 kg/m2 (HI) [place] Body Weight (IBW) : 52.02 kg MARC GREENWOOD RN - 06/03/2019 10:53 EDT Pain Assessment Pain Assessment : Initial assessment Pain Scale Used : 0-10 Scale Location : Hand, right MARC GREENWOOD RN - 06/03/2019 10:53 EDT Pain Scale Intensity : 5 MARC GREENWOOD RN - 06/03/2019 10:53 EDT Image 4 - Images currently included in the form version of this document have not been included in the text rendition version of the form. documented in this encounter Plan of Treatment Not on file documented as of this encounter Visit Diagnoses Not on filedocumented in this encounter
--- OUTSIDE RECORDS SUMMARY | 2025-03-25 07:27 | XMS_ITS | Referral Summary ---
Author Organization [employer] Address [address] [place] [address] Care Team Providers Care Spring Coiler Name Role Phone Unavailable Primary Care Provider Unavailabl e Social History Tobacco Use Types Packs/Day Years Used Date Smoking Tobacco: Never Assessed Comments Unknown Sex and Gender Information Value Date Recorded Sex Assigned at Female 04/11/2022 6:48 PM CDT Legal Sex Female 6:48 PM CDT Gender Identity Female 04/11/2022 6:48 PM CDT Sexual Orientation Not on file Plan of Treatment Not on file
--- OUTSIDE RECORDS SUMMARY | 2025-03-25 07:27 | XMS_ITS | Encounter Summary ---
Author Organization [employer] Address [address] [place] [address] Care Team Providers Care Process Tank Tender Name Role Phone Unavailable Primary Care Provider Unavailabl e Encounter Details Date Type Department Care Team (Late st Contact Info) Description 06/03/2019 Transcribed Document [facility] [place] [address] [place] [address] ProviderRikki MD [address], [place] [id number] Social History Tobacco Use Types Packs/Day Years Used Date Smoking Tobacco: Never Assessed Comments Unknown Sex and Gender Information Value Date Recorded Sex Assigned at Female 04/11/2022 6:48 PM CDT Legal Sex Female 6:48 PM CDT Gender Identity Female 04/11/2022 6:48 PM CDT Sexual Orientation Not on file documented as of this encounter Miscellaneous Notes * Cerner Conversion Note - Historical ProviderMD - 06/03/2019 6:37 PM CDT CR Hand Min 3 Vws RT Ordered: 06/03/2019 Auth (Verified) Reason for Exam: pain 06/03/2019 12:01 06/03/2019 18:37 (CHRISTEL CASILLAS, APR) Reviewed by Provider, No further action required x1 documented in this encounter Plan of Treatment Not on file documented as of this encounter Visit Diagnoses Not on filedocumented in this encounter
--- OUTSIDE RECORDS SUMMARY | 2025-03-25 07:27 | XMS_ITS | Encounter Summary ---
Author Organization [employer] [facility] Address [address] [place] [address] Care Team Providers Care Real Estate Agent Name Role Phone Unavailable Primary Care Provider Unavailabl e Encounter Details Date Type Department Care Team (Late st Contact Info) Description 06/03/2019 Transcribed Document [facility] [place] [facility] [address] ProviderRikki MD [facility] [place] [id number] Social History Tobacco Use Types Packs/Day Years Used Date Smoking Tobacco: Never Assessed Comments Unknown Sex and Gender Information Value Date Recorded Sex Assigned at Female 04/11/2022 6:48 PM CDT Legal Sex Female 6:48 PM CDT Gender Identity Female 04/11/2022 6:48 PM CDT Sexual Orientation Not on file documented as of this encounter Miscellaneous Notes * Cerner Conversion Note - Rikki Montoya MD - 06/03/2019 3:02 PM CDT ED Discharge Entered On: 06/03/2019 15:02 EDT Performed On: 06/03/2019 15:02 EDT by NEVILLE CHOE RN Discharge Process Patient Disposition : Discharge Personal Belongings With Patient : Yes Patient Education Completed : Yes Teaching Evaluation : Verbalizes understanding IV Discontinued : Yes Nursing Documentation Completed : Yes NEVILLE CHOE RN - 06/03/2019 15:02 EDT ED Discharge Discharge To : Home with ambulatory/outpatient follow-up Mode Of Departure : Private vehicle Accompanied By : Significant other Discharge Instructions Reviewed With, Opportunity For Questions Given : Patient Prescriptions Given to Patient : No NEVILLE CHOE RN - 06/03/2019 15:02 EDT documented in this encounter Plan of Treatment Not on file documented as of this encounter Visit Diagnoses Not on filedocumented in this encounter
--- OUTSIDE RECORDS SUMMARY | 2025-03-25 07:27 | XMS_ITS | Data Portability ---
Author Organization [facility] SHASHI Rossi [employer] Address [address] [place] [address] Care Team Providers Care Keyboard Action Assembler Name Role Phone SANGEETA BENOIT Primary [...] 6 weeks once imaging has been completed. [email or web address] Not available 05/21/2024 11:00:40 07/02/2024 07/02/2024 Kassi [...] the patient to obtain a disc from [facility] and bring the disc to us. Once we have the disc, I will have Dr. Walker review the imaging and contact the patient. I have scheduled her for a follow-up appointment in 6 weeks as well. [email or web address] Not available 07/02/2024 11:48:35 10/17/2024 10/17/2024 Kassi [...] headaches, consider further evaluation by headache specialist. [email or web address] Not available 10/17/2024 12:21:54 Plan of Treatment Reminders Order Date Submit Date Provider Last Modified By Organization Details Last Modified Time Details Appointments None recorded. Lab None recorded. Referral None recorded. Procedures None recorded. Surgeries None recorded. Imaging None recorded. Medication Orders cyclobenzap rine 10 mg tablet 2023 024 [facility], [address] [place] [address], [id number], 11:01:23 Patient TargetsNo targets recorded. Patient InstructionsNo [...] contr ast No observ ation record ed. [email or web address] Not Available 2024 16:06:42 Result Notes None [...] Updated DateTime 10/17/2024 160.02 cm 33.7 kg/m2 88380.55 g 122 mm[Hg] 82 mm[Hg] [facility] 5 09:17:07 Date Recorded Body height Body mass index (BMI) Body weight Systolic blood pressure Diastolic blood pressure Provider Name and Address Organization Details Last Updated DateTime 05/21/2024 160.02 cm 33.7 kg/m2 17454.55 g 130 mm[Hg] 82 mm[Hg] [facility] 4 10:25:23 Date Recorded Body height Body mass index (BMI) Body weight Systolic blood pressure Diastolic blood pressure Provider Name and Address Organization Details Last Updated DateTime 07/02/2024 160.02 cm 33.7 kg/m2 11064.55 g 126 mm[Hg] 82 mm[Hg] [facility] [...] SNOMED-CT Code Diagnosis ICD10 Code Diagnosis Note [id number] SKIP KAUFMAN PA-C [facility] [address] [place] [address] 05/21/2024 09:59:46 05/23/2024 14:19:21 Lumbar radiculopathy [id number] M54.16 [id number] SKIP KAUFMAN PA-C [facility] [address] [place] [address] 07/02/2024 10:12:30 07/07/2024 10:32:51 Lumbar radiculopathy [id number] M54.16 Low back pain [id number] M54.50 [id number] VÍCTOR WALKER MD [facility] [address] [place] [address] 10/17/2024 09:09:50 10/18/2024 05:47:25 Headache [id number] R51.9 Health Concerns Section Related Observation LastModified by Organization Detai ls LastModified Time None Recorded Concern Status LastModified by Organization Details LastModified Time None Recorded Advance Directives Directive None Recorded Payers Insurance Date Sequence Insurance Name Policy Number Policy Junior Covered Member ID Junior Member ID Guarantor Name 10/15/2024 1 [employer] (EPO) [id number] Kassi Claudio [id number] Kassi Claudio Notes Date Note Type [...] being on warfarin. SKIP KAUFMAN PA-C [address] [place], [address], [facility] 05/21/2024 11:01:32 4 text/html Kassi Claudio is [...] resolved. She had her MRI completed at [facility] on 06/11/2024 but did not obtain a disc with the MRI images to bring to her appointment today. SKIP KAUFMAN PA-C [address] [place], [address], [facility] 07/02/2024 11:49:01 5 text/html Kassi Claudio is [...] seems to help. VÍCTOR WALKER MD [address] [place], [address], [facility] 10/17/2024 12:23:13 OBGyn Episode No OBEpisode recorded.
--- OUTSIDE RECORDS SUMMARY | 2025-03-25 07:27 | XMS_ITS | Encounter Summary ---
Author Organization [employer] Address [address] [place] [address] Care Team Providers Care Tank Processor Name Role Phone Unavailable Primary Care Provider Unavailabl e Encounter Details Date Type Department Care Team (Late st Contact Info) Description 06/21/2021 Transcribed Document [facility] [place] Family Medicine [facility] [place] [address] ProviderRikki MD [address] [place] [phone] Social History Tobacco Use Types Packs/Day Years Used Date Smoking Tobacco: Never Assessed Comments Unknown Sex and Gender Information Value Date Recorded Sex Assigned at Female 04/11/2022 6:48 PM CDT Legal Sex Female 6:48 PM CDT Gender Identity Female 04/11/2022 6:48 PM CDT Sexual Orientation Not on file documented as of this encounter Miscellaneous Notes * Cerner Conversion Note - Rikki ProviderMD - 06/21/2021 9:55 PM CDT ED Triage Entered On: 06/21/2021 22:12 EDT Performed On: 06/21/2021 22:09 EDT by Jasmina Rao RN ED Triage Across the Room Chief Complaint : pt c/o chest pain X 15 minutes. pt states standing up makes pain worse. pt had heart cath done in February and has hx of heart failure. Triage Date/Time : 06/21/2021 22:09 EDT Jasmina Rao RN - 06/21/2021 22:09 EDT DCP GENERIC CODE Tracking Acuity : 2 - Emergent Tracking Group : [facility] ED Jasmina Rao RN - 06/21/2021 22:09 EDT Mode of Arrival : Ambulatory Transported to ED by : Private vehicle To Room Via : Wheelchair Accompanied By : Unaccompanied Height & Weight : Document ED Allergies : Document ED Reason for Visit : Document Jasmina Rao RN - 06/21/2021 22:09 EDT Infectious Disease History Does patient have symptoms of COVID-19? : No Has the Patient Been Tested for COVID-19 in the last 14 days? : No, Patient stated Does the Patient state known exposure to a COVID-19 positive case in the last 14 days? : No Patient Vaccinated for COVID-19 : Fully vaccinated Jasmina Rao RN - 06/21/2021 22:09 EDT Infectious Disease Risk Screening Grid Cough < 2 wks of unknown origin : NO Cough > 2 weeks : NO Blood in Sputum : NO Fever or self-reported Fever : NO Rash of unknown origin : NO Headache : NO Stiff neck : NO Night Sweats : NO Unexplained Weight Loss : NO Diarrhea (3 episode per day) : NO Jasmina Rao RN - 06/21/2021 22:09 EDT Physical contact outside [place] in the last 30 days : No Hospitalized in Foreign Country : No Infectious Disease History : None INF Disease TB Screening Calc : 0 INF Disease Recent Travel Calc : 0 Jasmina Rao RN - 06/21/2021 22:09 EDT Allergy (As Of: 06/21/2021 22:12:36 EDT) Allergies (Active) penicillin Estimated Onset Date: Unspecified ; Reactions: hives, hives ; Created By: KAVEH Tirado; Reaction Status: Active ; Category: Drug ; Substance: penicillin ; Type: Allergy ; Updated By: KAVEH Tirado; Reviewed Date: 06/21/2021 22:11 EDT sulfamethoxazole-trimethoprim Estimated Onset Date: Unspecified ; Reactions: hives, hives ; Created By: KAVEH Tirado; Reaction Status: Active ; Category: Drug ; Substance: sulfamethoxazole-trimethoprim ; Type: Allergy ; Updated By: KAVEH Tirado; Reviewed Date: 06/21/2021 22:11 EDT SUMAtriptan Estimated Onset Date: Unspecified ; Reactions: Other Anaphylactic Shock, Other Anaphylactic Shock ; Created By: Contributor_system, HIST_CERNER; Reaction Status: Active ; Category: Drug ; Substance: SUMAtriptan ; Type: Allergy ; Updated By: Contributor_system, HIST_CERPETE; Reviewed Date: 06/21/2021 22:11 EDT Diagnosis Control ED (As Of: 06/21/2021 22:12:36 EDT) Diagnoses(Active) Chest pain Date: 06/21/2021 ; Diagnosis Type: Reason For Visit ; Confirmation: Complaint of ; Clinical Dx: Chest pain ; Classification: Medical ; Clinical Service: Non-Specified ; Code: PNED ; Probability: 0 ; Diagnosis Code: [id number] ED Height and Weight Height Source : Stated Height Entry Format : [place] Height, Feet : 5 ft(Converted to: 152 cm, 60 Inch) Height, Inches : 3 Inch(Converted to: 0 ft 3 Inch, 7.62 cm) Clinical Height : 160.02 cm Weight Source, ED : Critical estimated dosing weight Weight Entry Format : [place] Weight, Pounds : 220 lb Clinical Dosing Weight : 100 kg Body Surface Area (BSA) : 2.02 m2 Body Mass Index : 39.1 kg/m2 (HI) [place] Body Weight (IBW) : 52.02 kg Jasmina Rao RN - 06/21/2021 22:09 EDT documented in this encounter Plan of Treatment Not on file documented as of this encounter Visit Diagnoses Not on filedocumented in this encounter
--- OUTSIDE RECORDS SUMMARY | 2025-03-25 07:27 | XMS_ITS ---
Author Organization Unknown Medications Medication Instructions Effective Dates (start - stop) Status estradiol 1 MG Oral Tablet 06-16T00:00:00.000+00 :00 - Completed estradiol 1 MG Oral Tablet 07-14T:00:00.000+00 :00 - Completed estradiol 1 MG Oral Tablet :00:00.000+00 :00 - Completed estradiol 1 MG Oral Tablet :00:00.000+00 :00 - Completed pregabalin 100 MG Oral Capsule 2 998-40-51A93:00:00.000+00 :00 - Completed pregabalin 100 MG Oral Capsule 2 918-80-43I19:00:00.000+00 :00 - Completed pregabalin 100 MG Oral Capsule 2 814-80-95S82:00:00.000+00 :00 - Completed baclofen 5 MG Oral Tablet 3-0 3-T:00:00.000+00 :00 - Completed baclofen 5 MG Oral Tablet 3-0 -T00:00:00.000+00 :00 - Completed pregabalin 100 MG Oral Capsule 2 258-96-21W12:00:00.000+00 :00 - Completed baclofen 5 MG Oral Tablet 3-0 -T:00:00.000+00 :00 - Completed baclofen 10 MG Oral Tablet 11-14T:00:00.000+00 :00 - Completed pregabalin 100 MG Oral Capsule 2 208-65-52D75:00:00.000+00 :00 - Completed baclofen 10 MG Oral Tablet 09-26T00:00:00.000+00 :00 - Completed pregabalin 100 MG Oral Capsule 2 934-28-48F13:00:00.000+00 :00 - Completed pregabalin 100 MG Oral Capsule 2 564-94-40C75:00:00.000+00 :00 - Completed pregabalin 100 MG Oral Capsule 2 577-76-26G06:00:00.000+00 :00 - Completed baclofen 5 MG Oral Tablet :00:00.000+00 :00 - Completed pregabalin 100 MG Oral Capsule 2 699-55-19T32:00:00.000+00 :00 - Completed pregabalin 100 MG Oral Capsule 2 774-15-18G49:00:00.000+00 :00 - Completed carvedilol 6.25 MG Oral Tablet 2 996-23-77D15:00:00.000+00 :00 - Completed baclofen 10 MG Oral Tablet :00:00.000+00 :00 - Completed pregabalin 100 MG Oral Capsule 2 673-57-12P95:00:00.000+00 :00 - Completed tizanidine 4 MG Oral Tablet 2021:00:00.000+00 :00 - Completed carvedilol 6.25 MG Oral Tablet 2 437-58-67H04:00:00.000+00 :00 - Completed ropinirole 1 MG Oral Tablet 2022:00:00.000+00 :00 - Completed ropinirole 1 MG Oral Tablet 2021:00:00.000+00 :00 - Completed fluconazole 100 MG Oral Tablet 472-72-55N14:00:00.000+00 :00 - Completed warfarin sodium 5 MG Oral Tablet 9912-49-04D86:00:00.000+00 :00 - Completed warfarin sodium 5 MG Oral Tablet 7111-62-80U06:00:00.000+00 :00 - Completed clopidogrel 75 MG Oral Tablet 05-10-06:00:00.000+00 :00 - Completed fluconazole 200 MG Oral Tablet 639-03-16U89:00:00.000+00 :00 - Completed ropinirole 1 MG Oral Tablet 2022:00:00.000+00 :00 - Completed warfarin sodium 2 MG Oral Tablet 0335-74-75H11:00:00.000+00 :00 - Completed losartan potassium 50 MG Oral Tablet 8177-71-13D14:00:00.000+00 :00 - Completed duloxetine 60 MG Delayed Rel ease Oral Capsule 0937-03-69Z89:00:00.000+00 :00 - Completed carvedilol 6.25 MG Oral Tablet 2 104-19-68J23:00:00.000+00 :00 - Completed prednisone 20 MG Oral Tablet 12-19-22:00:00.000+00 :00 - Completed clopidogrel 75 MG Oral Tablet 07-12-12:00:00.000+00 :00 - Completed esomeprazole 40 MG Delayed R elease Oral Capsule 2830-77-88P33:00:00.000+00 :00 - Completed warfarin sodium 2 MG Oral Tablet 8147-82-86U84:00:00.000+00 :00 - Completed warfarin sodium 5 MG Oral Tablet 7621-40-60W93:00:00.000+00 :00 - Completed clopidogrel 75 MG Oral Tablet 06-03-01:00:00.000+00 :00 - Completed carvedilol 6.25 MG Oral Tablet 2 129-35-77K26:00:00.000+00 :00 - Completed warfarin sodium 5 MG Oral Tablet 6682-16-21Q20:00:00.000+00 :00 - Completed {6 (azithromycin 250 MG Oral Tablet) } Pack 4311-94-73P14:00:00.000+00 :00 - Completed cefdinir 300 MG Oral Capsule 12-15-26:00:00.000+00 :00 - Completed tizanidine 4 MG Oral Tablet 2021:00:00.000+00 :00 - Completed prednisone 5 MG Oral Tablet 2022:00:00.000+00 :00 - Completed fluconazole 200 MG Oral Tablet 2 736-18-04K63:00:00.000+00 :00 - Completed prednisone 5 MG Oral Tablet 2022:00:00.000+00 :00 - Completed prednisone 20 MG Oral Tablet 12-15-16:00:00.000+00 :00 - Completed rivaroxaban 20 MG Oral Table t [Xarelto] 8416-79-00U62:00:00.000+00 :00 - Completed {21 (methylprednisolone 4 MG Oral Tablet) } Pack 5509-68-40U46:00:00.000+00 :00 - Completed spironolactone 50 MG Oral Tablet 3638-29-54D91:00:00.000+00 :00 - Completed spironolactone 50 MG Oral Tablet 5336-24-12F88:00:00.000+00 :00 - Completed spironolactone 50 MG Oral Tablet 1371-11-22D58:00:00.000+00 :00 - Completed duloxetine 60 MG Delayed Rel ease Oral Capsule 2498-50-10L63:00:00.000+00 :00 - Completed prednisone 20 MG Oral Tablet 12-19-18:00:00.000+00 :00 - Completed azithromycin 500 MG Oral Tablet 8547-80-34P53:00:00.000+00 :00 - Completed spironolactone 50 MG Oral Tablet 5070-58-80P87:00:00.000+00 :00 - Completed prednisone 20 MG Oral Tablet 202 12-16-09:00:00.000+00 :00 - Completed prednisone 20 MG Oral Tablet 12-19-10:00:00.000+00 :00 - Completed clopidogrel 75 MG Oral Tablet 06-11-09:00:00.000+00 :00 - Completed duloxetine 60 MG Delayed Rel ease Oral Capsule 3869-75-90M42:00:00.000+00 :00 - Completed tizanidine 4 MG Oral Tablet 2021:00:00.000+00 :00 - Completed duloxetine 60 MG Delayed Rel ease Oral Capsule 5558-61-99U69:00:00.000+00 :00 - Completed rivaroxaban 20 MG Oral Table t [Xarelto] 7805-14-05L91:00:00.000+00 :00 - Completed hydroxychloroquine sulfate 2 00 MG Oral Tablet 9355-80-29G51:00:00.000+00 :00 - Completed ropinirole 1 MG Oral Tablet 2021:00:00.000+00 :00 - Completed esomeprazole 40 MG Delayed R elease Oral Capsule 8309-86-95X34:00:00.000+00 :00 - Completed torsemide 20 MG Oral Tablet 2022:00:00.000+00 :00 - Completed cyclobenzaprine hydrochlorid e 10 MG Oral Tablet 8489-83-96O84:00:00.000+00 :00 - Completed torsemide 20 MG Oral Tablet 2022:00:00.000+00 :00 - Completed gabapentin 400 MG Oral Capsule 2 718-71-89U90:00:00.000+00 :00 - Completed hydroxychloroquine sulfate 2 00 MG Oral Tablet 1166-22-15Z92:00:00.000+00 :00 - Completed losartan potassium 50 MG Oral Tablet 7473-71-18H84:00:00.000+00 :00 - Completed torsemide 20 MG Oral Tablet 2021:00:00.000+00 :00 - Completed torsemide 20 MG Oral Tablet 2021:00:00.000+00 :00 - Completed hydroxychloroquine sulfate 2 00 MG Oral Tablet 4051-40-45A19:00:00.000+00 :00 - Completed esomeprazole 40 MG Delayed R elease Oral Capsule 0766-93-89S24:00:00.000+00 :00 - Completed rivaroxaban 20 MG Oral Table t [Xarelto] 3568-39-63D36:00:00.000+00 :00 - Completed gabapentin 400 MG Oral Capsule 2 232-54-78N09:00:00.000+00 :00 - Completed rivaroxaban 20 MG Oral Table t [Xarelto] 6605-34-11E14:00:00.000+00 :00 - Completed losartan potassium 50 MG Oral Tablet 4350-85-68Z92:00:00.000+00 :00 - Completed hydroxychloroquine sulfate 2 00 MG Oral Tablet 7575-15-83Y15:00:00.000+00 :00 - Completed esomeprazole 40 MG Delayed R elease Oral Capsule 2107-85-79L89:00:00.000+00 :00 - Completed hydroxychloroquine sulfate 2 00 MG Oral Tablet 0013-68-11S05:00:00.000+00 :00 - Completed ropinirole 1 MG Oral Tablet 2021:00:00.000+00 :00 - Completed ropinirole 1 MG Oral Tablet 2021:00:00.000+00 :00 - Completed losartan potassium 50 MG Oral Tablet 2106-33-03X03:00:00.000+00 :00 - Completed acetaminophen 325 MG / hydro codone bitartrate 10 MG Oral Tablet 7498-55-65L23:00:00.000+0 0 :00 - Completed acetaminophen 325 MG / hydro codone bitartrate 10 MG Oral Tablet 9169-71-44Q88:00:00.000+0 0 :00 - Completed acetaminophen 325 MG / hydro codone bitartrate 10 MG Oral Tablet 4737-85-55L26:00:00.000+0 0 :00 - Completed acetaminophen 325 MG / hydro codone bitartrate 10 MG Oral Tablet 6280-10-71S43:00:00.000+0 0 :00 - Completed acetaminophen 325 MG / hydro codone bitartrate 10 MG Oral Tablet 7393-35-13S84:00:00.000+0 0 :00 - Completed acetaminophen 325 MG / hydro codone bitartrate 10 MG Oral Tablet 3303-61-94Y10:00:00.000+0 0 :00 - Completed acetaminophen 325 MG / hydro codone bitartrate 10 MG Oral Tablet 9039-03-36N08:00:00.000+0 0 :00 - Completed acetaminophen 325 MG / hydro codone bitartrate 10 MG Oral Tablet 1604-35-89M53:00:00.000+0 0 :00 - Completed acetaminophen 325 MG / hydro codone bitartrate 10 MG Oral Tablet 3646-43-58Q21:00:00.000+0 0 :00 - Completed acetaminophen 325 MG / hydro codone bitartrate 10 MG Oral Tablet 5090-71-96U14:00:00.000+0 0 :00 - Completed Patient Care team information Name Category Status Period Participants - - Proposed period not known -
--- OUTSIDE RECORDS SUMMARY | 2025-03-25 07:27 | XMS_ITS | Encounter Summary ---
Author Organization [employer] Address [address] [place] [address] Care Team Providers Care Plastic Surgery Assistant Name Role Phone Unavailable Primary Care Provider Unavailabl e Encounter Details Date Type Department Care Team (Late st Contact Info) Description 06/22/2021 Transcribed Document [facility] [place] Medicine Replaced by [facility] [place] [address] ProviderRikki MD [facility] [place] [facility] [place], [place] [id number] Social History Tobacco Use Types Packs/Day Years Used Date Smoking Tobacco: Never Assessed Comments Unknown Sex and Gender Information Value Date Recorded Sex Assigned at Female 04/11/2022 6:48 PM CDT Legal Sex Female 6:48 PM CDT Gender Identity Female 04/11/2022 6:48 PM CDT Sexual Orientation Not on file documented as of this encounter Miscellaneous Notes * Cerner Conversion Note - Historical ProviderMD - 06/22/2021 2:09 AM CDT ED Discharge Entered On: 06/22/2021 2:09 EDT Performed On: 06/22/2021 2:09 EDT by Aruna Garcia Discharge Process Patient Disposition : Discharge Teaching Evaluation : Verbalizes understanding IV Discontinued : Yes Nursing Documentation Completed : Yes Aruna Garcia - 06/22/2021 2:09 EDT ED Discharge Discharge To : Home with ambulatory/outpatient follow-up Mode Of Departure : Ambulatory Accompanied By : Unaccompanied Discharge Instructions Reviewed With, Opportunity For Questions Given : Patient Prescriptions Given to Patient : No Aruna Garcia - 06/22/2021 2:09 EDT Electronically signed by Giacomo Azar Conversion Photographic Laboratory Supervisor Cerner at 01/28/2023 11:09 PM CDT documented in this encounter Plan of Treatment Not on file documented as of this encounter Visit Diagnoses Not on filedocumented in this encounter
--- OUTSIDE RECORDS SUMMARY | 2025-03-25 07:27 | XMS_ITS | Encounter Summary ---
Author Organization [email or web address] Address [address] [place] [address] Care Team Providers Care Composite Science Teacher Name Role Phone Unavailable Primary Care Provider Unavailabl e Encounter Details Date Type Department Care Team (Late st Contact Info) Description 06/22/2021 Transcribed Document [facility] [place] Family Medicine [facility] [place] [address] ProviderRikki MD [facility] [place] [id number] Social History Tobacco Use Types Packs/Day Years [...] Conversion Note - Historical ProviderMD - 06/22/2021 9:24 AM CDT CR Chest 1 Vw Portable Ordered: 06/21/2021 Modified Reason for Exam: Chest Pain 06/22/2021 01:41 06/22/2021 09:24 (CHRISTEL CASILLAS APRN) Reviewed by Provider, No further action required x1 documented in this encounter Plan of Treatment Not on file documented as of this encounter Visit Diagnoses Not on filedocumented in this encounter
--- OUTSIDE RECORDS SUMMARY | 2025-03-25 07:27 | XMS_ITS | Encounter Summary ---
Author Organization [employer] Address [address] [place] [address] Care Team Providers Care Local Government Legislator Name Role Phone Unavailable Primary Care Provider Unavailabl e Encounter Details Date Type Department Care Team (Late st Contact Info) Description 06/22/2021 Transcribed Document [facility] [place] Family Medicine [place] [address] ProviderRikki MD [facility] [place], [place] [id number] Social History Tobacco Use Types Packs/Day Years [...] Conversion Note - Historical ProviderMD - 06/22/2021 2:00 AM CDT documented in this encounter Plan of Treatment Not on file documented as of this encounter Visit Diagnoses Not on filedocumented in this encounter
--- OUTSIDE RECORDS SUMMARY | 2025-03-25 07:27 | XMS_ITS | Encounter Summary ---
Author Organization [employer] Address [address] [place] [address] Care Team Providers Care Eddy Current Inspector Name Role Phone Unavailable Primary Care Provider Unavailabl e Encounter Details Date Type Department Care Team (Late st Contact Info) Description 06/03/2019 Transcribed Document [facility] [address] [place] [address] ProviderRikki MD [facility] [place] [address] Social History Tobacco Use Types Packs/Day Years [...] Note - Rikki Montoya MD - 06/03/2019 2:51 PM CDT [facility] [address] KASSI KONG :1970 Visit Time:06/03/2019 Your Visit Summary Your Care Team Admitting Physician - DRE POWER MARK, MD Attending Physician - MARIEL MCCRAY MD Primary Care Physician - ALVARADO STILES (REF), -[facility] Referring Physician - MARIEL MCCRAY MD Your Diagnosis Hand contusion Hand pain-swelling Head injury Medical Information You may obtain a copy of your Emergency Department visit from Medical Records by calling the hospital phone number listed above and asking to be directed to the Medical Records Department. If you had special tests, such as EKG???s or X-rays, the interpretation of your tests given to you by the Emergency Department Physician is a preliminary report. Some fractures and illnesses fail to show up on preliminary tests. These will be reviewed again and we will call you if there are any new suggestions. If your symptoms continue notify your physician. After you leave, you should follow the instructions provided. What to do next Follow-Up Appointments Follow Up with Return to Emergency Department When Within As needed Follow Up with Follow up with primary care provider When Within 1 to 2 days Follow Up with ALVARADO STILES (REF)MD-[facility] When Within 2 to 3 days Comments Patient states Dr. Stiles is their Primary Care Provider. Please contact the Patient Resource Center at if you need assistance scheduling a Specialist or Primary Care Provider in the future. Where: [place] [place] [address]- Allergies SUMAtriptan (Other Anaphylactic Shock, Other Anaphylactic Shock) penicillin (hives, hives) sulfamethoxazole-trimethoprim (hives, hives) Immunizations This Visit No Immunizations Found Medications The home medications listed are only as accurate as the information you provided. Please continue taking all of your medications prescribed by your Primary Care Provider unless specifically told to change or discontinue the medication. Please direct any questions regarding your home medications to your Primary Care Provider. Take your medications faithfully. Do NOT skip medication. Do NOT stop taking medications without the direction of a physician. Carry a list of your medications with you at all times, and take this medication list with you to your first follow up visit. Report any side effects. Avoid herbal remedies unless discussed with your physician. As part of your treatment plan, your physician may have prescribed a limited course of a controlled substance. This medication may be given to help people with moderate or severe pain or for other medical conditions, but there are risks involved with treatment. Common side effects may include nausea, constipation, drowsiness, sweating, itching, dry mouth, and rash. More serious side effects may include cognitive and motor impairment, like problems with thinking, concentrating, alertness, and movement (e.g. slowed reflexes), and driving and operating heavy machinery can be dangerous. It is important for you to talk to your physician if you have these side effects or questions. These controlled substances can produce physical dependence and be habit-forming if taken for an extended period of time, which means that the body has gotten used to them and may experience withdrawal symptoms if they are abruptly stopped. Withdrawal symptoms can include runny nose, sweating, goose bumps, diarrhea, abdominal cramping, rapid heartbeat, difficulty sleeping, and nervousness. Please dispose of unused and medications per pharmacy guidance. Test Results Laboratory or Other Results This Visit (last charted value for your 06/03/2019 visit) Hematology 06/03/19 12:09:00 WBC: 8.4 K/uL -- Normal range between ( 4.5 and 10.5 ) RBC: 4.28 Million/uL -- Normal range between ( 3.93 and 5.22 ) Hct: 37.9 % -- Normal range between ( 34.1 and 44.9 ) Hgb: 12.5 g/dL -- Normal range between ( 11.2 and 15.7 ) Platelet Count: 392 K/uL -- Normal range between ( 163 and 369 ) MCH: 29.2 pg -- Normal range between ( 25.6 and 32.2 ) MCHC: 33.0 Gram/dL -- Normal range between ( 32.2 and 36.5 ) MCV: 88.6 fL -- Normal range between ( 79.0 and 94.8 ) Slide Review: No Eos %: 3.3 % -- Normal range between ( 0.0 and 7.0 ) [place] #: 0.44 K/uL -- Normal range between ( 0.16 and 1.00 ) Eos #: 0.28 x10(3)/uL -- Normal range between ( 0.00 and 0.80 ) [place] %: 5.2 % -- Normal range between ( 3.0 and 9.0 ) Baso %: 1.0 % -- Normal range between ( 0.0 and 1.5 ) Baso #: 0.08 x10(3)/uL -- Normal range between ( 0.00 and 0.20 ) RDW: 12.2 % -- Normal range between ( 11.7 and 14.9 ) Neut %: 59.9 % -- Normal range between ( 34.0 and 71.0 ) Neut #: 5.03 K/uL -- Normal range between ( 1.56 and 6.13 ) Lymph %: 30.2 % -- Normal range between ( 19.3 and 53.1 ) Lymph #: 2.54 x10(3)/uL -- Normal range between ( 1.00 and 3.90 ) MPV: 10.9 fL -- Normal range between ( 9.4 and 12.4 ) IG#: 0.03 x10(3)/uL -- Normal range between ( 0.00 and 0.05 ) IG%: 0.40 % -- Normal range between ( 0.00 and 0.60 ) Urinalysis 06/03/19 12:53:00 Ur RBC: 0-2 /HPF Urine Nitrite: Negative Urine Leukocyte Esterase: Negative Urine Appearance: Clear Urine Glucose Dipstick: Negative Urine Blood Dipstick: Negative Urine Type: U CleanCatch Urine Urobilinogen Dipstick: 1.0 EU/dL Urine Protein Dipstick: Negative Ur Bacteria: Trace Ur Squamous Epithelial Cells: 5-10 /HPF Urine Color: Yellow Ur WBC: 0-2 /HPF Urine Ketones Dipstick: Negative Urine pH Dipstick: 7.5 -- Normal range between ( 6.0 and 8.0 ) Urine Bilirubin Dipstick: Negative Urine Specific [place]: 1.021 -- Normal range between ( 1.005 and 1.030 ) General Chemistry 06/03/19 12:09:00 Creatinine Level: 0.60 mg/dL -- Normal range between ( 0.55 and 1.02 ) Sodium Level: 135 mmol/L -- Normal range between ( 136 and 146 ) Potassium Level: 3.3 mmol/L -- Normal range between ( 3.5 and 5.1 ) Chloride Level: 98 mmol/L -- Normal range between ( 102 and 112 ) Carbon Dioxide Level: 30 mmol/L -- Normal range between ( 21 and 32 ) Anion Gap: 10 -- Normal range between ( 9 and 20 ) Bilirubin Total: 0.3 mg/dL -- Normal range between ( 0.2 and 1.2 ) A/G Ratio: 0.8 -- Normal range between ( 1.1 and 2.5 ) ALT: 22 Units/Liter -- Normal range between ( 13 and 56 ) AST: 17 Units/Liter -- Normal range between ( 5 and 37 ) Globulin: 4.3 Gram/dL -- Normal range between ( 1.5 and 4.5 ) Alk Phos: 93 Units/Liter -- Normal range between ( 27 and 136 ) Bun/Creatinine: 15.0 -- Normal range between ( 8.0 and 20.0 ) Calcium Level: 8.9 mg/dL -- Normal range between ( 8.4 and 10.1 ) eGFR : >60 mL/min/1.73m2 eGFR NonAfrican: >60 mL/min/1.73m2 Glucose Level: 110 mg/dL -- Normal range between ( 74 and 106 ) Blood Urea Nitrogen: 9 mg/dL -- Normal range between ( 7 and 22 ) Protein Total: 7.9 Gram/dL -- Normal range between ( 6.4 and 8.2 ) Albumin Level: 3.6 Gram/dL -- Normal range between ( 3.4 and 5.0 ) Cardiac Specific Markers 06/03/19 12:09:00 Troponin I Ultra: <0.015 ng/mL -- Normal range between ( 0.015 and 0.045 ) Computed Tomography 06/03/19 12:36:05 CT Head WO: CT Head WO Diagnostic Radiology 06/03/19 11:13:00 CR Hand Min 3 Vws RT: CR Hand Min 3 Vws RT Education Materials Syncope Syncope is when you temporarily lose consciousness. Syncope may also be called fainting or passing out. It is caused by a sudden decrease in blood flow to the brain. Even though most causes of syncope are not dangerous, syncope can be a sign of a serious medical problem. Signs that you may be about to faint include: ??? Feeling dizzy or light-headed. ??? Feeling nauseous. ??? Seeing all white or all black in your field of vision. ??? Having cold, clammy skin. If you fainted, get medical help right away.Call your local emergency services (911 in the [place] Do not drive yourself to the hospital. Follow these instructions at home: Pay attention to any changes in your symptoms. Take these actions to help with your condition: ??? Have someone stay with you until you feel stable. ??? Do not drive, use machinery, or play sports until your health care provider says it is okay. ??? Keep all follow-up visits as told by your health care provider. This is important. ??? If you start to feel like you might faint, lie down right away and raise (elevate) your feet above the level of your heart. Breathe deeply and steadily. Wait until all of the symptoms have passed. ??? Drink enough fluid to keep your urine clear or pale yellow. ??? If you are taking blood pressure or heart medicine, get up slowly and take several minutes to sit and then stand. This can reduce dizziness. ??? Take xrle-gky-dwgudrj and prescription medicines only as told by your health care provider. Get help right away if: ??? You have a severe headache. ??? You have unusual pain in your chest, abdomen, or back. ??? You are bleeding from your mouth or rectum, or you have black or tarry stool. ??? You have a very fast or irregular heartbeat (palpitations). ??? You have pain with breathing. ??? You faint once or repeatedly. ??? You have a seizure. ??? You are confused. ??? You have trouble walking. ??? You have severe weakness. ??? You have vision problems. These symptoms may represent a serious problem that is an emergency. Do not wait to see if your symptoms will go away. Get medical help right away. Call your local emergency services (911 in the [place] Do not drive yourself to the hospital. This information is not intended to replace advice given to you by your health care provider. Make sure you discuss any questions you have with your health care provider. Document Released: 10/01/2006 Document Revised: 03/08/2017 Document Reviewed: 06/14/2016 [employer] Patient Education ?? 2018 [employer] Head Injury, Adult There are many types of head injuries. Head injuries can be as minor as a bump, or they can be more severe. More severe head injuries include: ??? A jarring injury to the brain (concussion). ??? A bruise of the brain (contusion). This means there is bleeding in the brain that can cause swelling. ??? A cracked skull (skull fracture). ??? Bleeding in the brain that collects, clots, and forms a bump (hematoma). After a head injury, you may need to be observed for a while in the emergency department or urgent care. Sometimes admission to the hospital is needed. After a head injury has happened, most problems occur within the first 24 hours, but side effects may occur up to 7???10 days after the injury. It is important to watch your condition for any changes. What are the causes? There are many possible causes of a head injury. A serious head injury may happen to someone who is in a car accident (motor vehicle collision). Other causes of major head injuries include bicycle or motorcycle accidents, sports injuries, and falls. Risk factors This condition is more likely to occur in people who: ??? Drink a lot of alcohol or use drugs. ??? Are over the age of 65. ??? Are at risk for falls. What are the symptoms? There are many possible symptoms of a head injury. Visible symptoms of a head injury include a bruise, bump, or bleeding at the site of the injury. Other non-visible symptoms include: ??? Feeling sleepy or not being able to stay awake. ??? Passing out. ??? Headache. ??? Seizures. ??? Dizziness. ??? Confusion. ??? Memory problems. ??? Nausea or vomiting. Other possible symptoms that may develop after the head injury include: ??? Poor attention and concentration. ??? Fatigue or tiring easily. ??? Irritability. ??? Being uncomfortable around bright lights or loud noises. ??? Anxiety or depression. ??? Disturbed sleep. How is this diagnosed? This condition can usually be diagnosed based on your symptoms, a description of the injury, and a physical exam. You may also have imaging tests done, such as a CT scan or MRI. You will also be closely watched. How is this treated? Treatment for this condition depends on the severity and type of injury you have. The main goal of treatment is to prevent complications and allow the brain time to heal. For mild head injury, you may be sent home and treatment may include: ??? Observation. A responsible adult should stay with you for 24 hours after your injury and check on you often. ??? Physical rest. ??? Brain rest. ??? Pain medicines. For severe brain injury, treatment may include: ??? Close observation. This includes hospitalization with frequent physical exams. You may need to go to a hospital that specializes in head injury. ??? Pain medicines. ??? Breathing support. This may include using a ventilator. ??? Managing the pressure inside the brain (intracranial pressure, or ICP). This may include: ? Monitoring the ICP. ? Giving medicines to decrease the ICP. ? Positioning you to decrease the ICP. ??? Medicine to prevent seizures. ??? Surgery to stop bleeding or to remove blood clots (craniotomy). ??? Surgery to remove part of the skull (decompressive craniectomy). This allows room for the brain to swell. Follow these instructions at home: Activity ??? Rest as much as possible and avoid activities that are physically hard or tiring. ??? Make sure you get enough sleep. ??? Limit activities that require a lot of thought or attention, such as: ? Watching TV. ? Playing memory games and puzzles. ? Job-related work or homework. ? Working on the computer, social media, and texting. ??? Avoid activities that could cause another head injury, such as playing sports, until your health care provider approves. Having another head injury, especially before the first one has healed, can be dangerous. ??? Ask your health care provider when it is safe for you to return to your regular activities, including work or school. Ask your health care provider for a pfqt-fs-hpwt plan for gradually returning to activities. ??? Ask your health care provider when you can drive, ride a bicycle, or use heavy machinery. Your ability to react may be slower after a brain injury. Never do these activities if you are dizzy. Lifestyle ??? Do not drink alcohol until your health care provider approves, and avoid drug use. Alcohol and certain drugs may slow your recovery and can put you at risk of further injury. ??? If it is harder than usual to remember things, write them down. ??? If you are easily distracted, try to do one thing at a time. ??? Talk with family members or close friends when making important decisions. ??? Tell your friends, family, a trusted colleague, and woodworking machine offbearer about your injury, symptoms, and restrictions. Have them watch for any new or worsening problems. General instructions ??? Take zilv-tmk-tmvlapn and prescription medicines only as told by your health care provider. ??? Have someone stay with you for 24 hours after your head injury. This person should watch you for any changes in your symptoms and be ready to seek medical help, as needed. ??? Keep all follow-up visits as told by your health care provider. This is important. How is this prevented? Work on improving your balance and strength to avoid falls. ??? Wear a seatbelt when you are in a moving vehicle. ??? Wear a helmet when riding a bicycle, skiing, or doing any other sport or activity that has a risk of injury. ??? Drink alcohol only in moderation. ??? Take safety measures in your home, such as: ? Removing clutter and tripping hazards from floors and stairways. ? Using grab bars in bathrooms and handrails by stairs. ? Placing non-slip mats on floors and in bathtubs. ? Improving lighting in dim areas. Get help right away if: ??? You have: ? A severe headache that is not helped by medicine. ? Trouble walking, have weakness in your arms and legs, or lose your balance. ? Clear or bloody fluid coming from your nose or ears. ? Changes in your vision. ? A seizure. ??? You vomit. ??? Your symptoms get worse. ??? Your speech is slurred. ??? You pass out. ??? You are sleepier and have trouble staying awake. ??? Your pupils change size. These symptoms may represent a serious problem that is an emergency. Do not wait to see if the symptoms will go away. Get medical help right away. Call your local emergency services (911 in the [place] Do not drive yourself to the hospital. This information is not intended to replace advice given to you by your health care provider. Make sure you discuss any questions you have with your health care provider. Document Released: 10/01/2006 Document Revised: 01/25/2018 Document Reviewed: 04/10/2017 [employer] Interactive Patient Education ?? 2019 [employer] Contusion A contusion is a deep bruise. Contusions are the result of a blunt injury to tissues and muscle fibers under the skin. The injury causes bleeding under the skin. The skin overlying the contusion may turn blue, purple, or yellow. Minor injuries will give you a painless contusion, but more severe contusions may stay painful and swollen for a few weeks. What are the causes? This condition is usually caused by a blow, trauma, or direct force to an area of the body. What are the signs or symptoms? Symptoms of this condition include: ??? Swelling of the injured area. ??? Pain and tenderness in the injured area. ??? Discoloration. The area may have redness and then turn blue, purple, or yellow. How is this diagnosed? This condition is diagnosed based on a physical exam and medical history. An X-ray, CT scan, or MRI may be needed to determine if there are any associated injuries, such as broken bones (fractures). How is this treated? Specific treatment for this condition depends on what area of the body was injured. In general, the best treatment for a contusion is resting, icing, applying pressure to (compression), and elevating the injured area. This is often called the RICE strategy. Fbto-bhu-xxwzraj anti-inflammatory medicines may also be recommended for pain control. Follow these instructions at home: ??? Rest the injured area. ??? If directed, apply ice to the injured area: ? Put ice in a plastic bag. ? Place a towel between your skin and the bag. ? Leave the ice on for 20 minutes, 2???3 times per day. ??? If directed, apply light compression to the injured area using an elastic bandage. Make sure the bandage is not wrapped too tightly. Remove and reapply the bandage as directed by your health care provider. ??? If possible, raise (elevate) the injured area above the level of your heart while you are sitting or lying down. ??? Take uuox-agm-kycrcid and prescription medicines only as told by your health care provider. Contact a health care provider if: ??? Your symptoms do not improve after several days of treatment. ??? Your symptoms get worse. ??? You have difficulty moving the injured area. Get help right away if: ??? You have severe pain. ??? You have numbness in a hand or foot. ??? Your hand or foot turns pale or cold. This information is not intended to replace advice given to you by your health care provider. Make sure you discuss any questions you have with your health care provider. Document Released: 07/11/2006 Document Revised: 02/08/2017 Document Reviewed: 02/16/2016 [employer] Patient Education ?? 2019 [employer] Concussion, Adult A concussion is a brain injury from a direct hit (blow) to the head or body. This blow causes the brain to shake quickly back and forth inside the skull. This can damage brain cells and cause chemical changes in the brain. A concussion may also be known as a mild traumatic brain injury (TBI). Concussions are usually not life-threatening, but the effects of a concussion can be serious. If you have a concussion, you are more likely to experience concussion-like symptoms after a direct blow to the head in the future. What are the causes? This condition is caused by: ??? A direct blow to the head, such as from running into another player during a game, being hit in a fight, or hitting your head on a hard surface. ??? A jolt of the head or neck that causes the brain to move back and forth inside the skull, such as in a car crash. What are the signs or symptoms? The signs of a concussion can be hard to notice. Early on, they may be missed by you, family members, and health care providers. You may look fine but act or feel differently. Symptoms are usually temporary, but they may last for days, weeks, or even longer. Some symptoms may appear right away but other symptoms may not show up for hours or days. Every head injury is different. Symptoms may include: ??? Headaches. This can include a feeling of pressure in the head. ??? Memory problems. ??? Trouble concentrating, organizing, or making decisions. ??? Slowness in thinking, acting or reacting, speaking, or reading. ??? Confusion. ??? Fatigue. ??? Changes in eating or sleeping patterns. ??? Problems with coordination or balance. ??? Nausea or vomiting. ??? Numbness or tingling. ??? Sensitivity to light or noise. ??? Vision or hearing problems. ??? Reduced sense of smell. ??? Irritability or mood changes. ??? Dizziness. ??? Lack of motivation. ??? Seeing or hearing things that other people do not see or hear (hallucinations). How is this diagnosed? This condition is diagnosed based on: ??? Your symptoms. ??? A description of your injury. You may also have tests, including: ??? Imaging tests, such as a CT scan or MRI. These are done to look for signs of brain injury. ??? Neuropsychological tests. These measure your thinking, understanding, learning, and remembering abilities. How is this treated? This condition is treated with physical and mental rest and careful observation, usually at home. If the concussion is severe, you may need to stay home from work for a while. You may be referred to a concussion clinic or to other health care providers for management. It is important that you tell your health care provider if: ??? You are taking any medicines, including prescription medicines, hgjd-zga-dflvqgp medicines, and natural remedies. Some medicines, such as blood thinners (anticoagulants) and aspirin, may increase the chance of complications, such as bleeding. ??? You are taking or have taken alcohol or illegal drugs. Alcohol and certain other drugs may slow your recovery and can put you at risk of further injury. How fast you will recover from a concussion depends on many factors, such as how severe your concussion is, what part of your brain was injured, how old you are, and how healthy you were before the concussion. Recovery can take time. It is important to wait to return to activity until a health care provider says it is safe to do that and your symptoms are completely gone. Follow these instructions at home: Activity ??? Limit activities that require a lot of thought or concentration. These may include: ? Doing homework or job-related work. ? Watching TV. ? Working on the computer. ? Playing memory games and puzzles. ??? Rest. Rest helps the brain to heal. Make sure you: ? Get plenty of sleep at night. Avoid staying up late at night. ? Keep the same bedtime hours on weekends and weekdays. ? Rest during the day. Take naps or rest breaks when you feel tired. ??? Having another concussion before the first one has healed can be dangerous. Do not do high-risk activities that could cause a second concussion, such as riding a bicycle or playing sports. ??? Ask your health care provider when you can return to your normal activities, such as school, work, athletics, driving, riding a bicycle, or using heavy machinery. Your ability to react may be slower after a brain injury. Never do these activities if you are dizzy. Your health care provider will likely give you a plan for gradually returning to activities. General instructions ??? Take rjam-dpa-lujacon and prescription medicines only as told by your health care provider. ??? Do not drink alcohol until your health care provider says you can. ??? If it is harder than usual to remember things, write them down. ??? If you are easily distracted, try to do one thing at a time. For example, do not try to watch TV while fixing dinner. ??? Talk with family members or close friends when making important decisions. ??? Watch your symptoms and tell others to do the same. Complications sometimes occur after a concussion. Older adults with a brain injury may have a higher risk of serious complications, such as a blood clot in the brain. ??? Tell your teachers, school nurse, school counselor, riding coach, clinical trainer, or woodworking machine offbearer about your injury, symptoms, and restrictions. Tell them about what you can or cannot do. They should watch for: ? Increased problems with attention or concentration. ? Increased difficulty remembering or learning new information. ? Increased time needed to complete tasks or assignments. ? Increased irritability or decreased ability to cope with stress. ? Increased symptoms. ??? Keep all follow-up visits as told by your health care provider. This is important. How is this prevented? It is very important to avoid another brain injury, especially as you recover. In rare cases, another injury can lead to permanent brain damage, brain swelling, or . The risk of this is greatest during the first 7???10 days after a head injury. Avoid injuries by: ??? Wearing a seat belt when riding in a car. ??? Wearing a helmet when biking, skiing, skateboarding, skating, or doing similar activities. ??? Avoiding activities that could lead to a second concussion, such as contact or recreational sports, until your health care provider says it is okay. ??? Taking safety measures in your home, such as: ? Removing clutter and tripping hazards from floors and stairways. ? Using grab bars in bathrooms and handrails by stairs. ? Placing non-slip mats on floors and in bathtubs. ? Improving lighting in dim areas. Contact a health care provider if: ??? Your symptoms get worse. ??? You have new symptoms. ??? You continue to have symptoms for more than 2 weeks. Get help right away if: ??? You have severe or worsening headaches. ??? You have weakness or numbness in any part of your body. ??? Your coordination gets worse. ??? You vomit repeatedly. ??? You are sleepier. ??? The pupil of one eye is larger than the other. ??? You have convulsions or a seizure. ??? Your speech is slurred. ??? Your fatigue, confusion, or irritability gets worse. ??? You cannot recognize people or places. ??? You have neck pain. ??? It is difficult to wake you up. ??? You have unusual behavior changes. ??? You lose consciousness. Summary ??? A concussion is a brain injury from a direct hit (blow) to the head or body. ??? A concussion may also be called a mild traumatic brain injury (TBI). ??? You may have imaging tests and neuropsychological tests to diagnose a concussion. ??? This condition is treated with physical and mental rest and careful observation. ??? Ask your health care provider when you can return to your normal activities, such as school, work, athletics, driving, riding a bicycle, or using heavy machinery. Follow safety instructions as told by your health care provider. This information is not intended to replace advice given to you by your health care provider. Make sure you discuss any questions you have with your health care provider. Document Released: 12/21/2004 Document Revised: 09/11/2017 Document Reviewed: 09/11/2017 [employer] Patient Education ?? 2019 [employer] Emergency Awareness and Preventative Care STROKE is an EMERGENCY Every Minute Counts Act FAST and Check for these signs: FACE Does the face look uneven? ARM Does one arm drift down? SPEECH Does their speech sound strange? TIME Call at any sign of stroke Stroke Risk Factors Atrial Fibrillation (irregular heartbeat) Diabetes Family history of stroke Heart Disease Heavy alcohol use High Blood Pressure High Cholesterol Physical inactivity and obesity Smoking Cigarette Smoking The facts are clear, cigarette smoking will shorten your life. Smoking can cause many illnesses along the way. As a healthcare provider, we recommend that you stop smoking. Assistance with quitting is available by contacting 1-817-LQAH-NOW. This is a free resource providing counseling, support, and referral. Or you may contact your personal physician. National Suicide Prevention Lifeline: The National Suicide Prevention Lifeline is a national network of local crisis centers that provides free and confidential emotional support to people in suicidal crisis or emotional distress 24 hours a day, 7 days a week. Don't Wait! Stop a Heart Attack Before it Starts What is a heart attack? A heart attack is damage or to a part of the heart from severely decreased or lack of blood flow to the heart. Over time, arteries can become narrow from the buildup of fat and cholesterol, which is called plaque. The plaque can rupture causing a blood clot to form. When the blood clot forms, the artery can become severely narrowed or completely blocked, causing a heart attack. Heart attack is the leading cause of in the [place]. 85% of muscle damage occurs within the first 2 hours. Delay in the recognition of heart attack symptoms increases the chances of . Know the early symptoms of a heart attack: Nausea Feeling of fullness in chest Jaw Pain Pain that travels down one or both arms Fatigue/being tired Anxiety Back Pain Chest pressure, squeezing, or discomfort Shortness of breath Sweating, or a cold sweat Feeling of impending doom There are unusual signs of a heart attack, too! Women, the elderly, and diabetics may present with atypical symptoms: Fainting/dizziness Weakness Confusion Risk Factors for a Heart Attack Some heart disease risk factors, such as age and family history, cannot be changed. Others, like smoking and lack of exercise, can be changed. Smoking High Cholesterol High Blood Pressure Family History Obesity Age Gender (Males are at higher risk) Lack of Exercise Diabetes Diet Stress Excessive Alcohol Intake If you or someone you know is experiencing the signs and symptoms of a heart attack, DON???T DELAY. Call immediately and seek help. If someone collapses, perform CPR! Do not attempt to drive if you are having symptoms of heart attack. Hands-Only CPR Why Hands-Only CPR? Hands-Only CPR has been shown to be as effective as conventional CPR for cardiac arrests that occur outside of a hospital. Survival depends on immediately receiving CPR from someone nearby. How do you perform Hands-Only CPR? There are two easy steps: Call if you see a teen or adult collapse Push hard and fast in the center of the chest at a beat of 100 beats per minute. Save a life! 4 WAYS TO GET AHEAD OF SEPSIS SEPSIS is a MEDICAL EMERGENCY. Time matters! Infections put you and your family at risk for a life-threatening condition called sepsis. Sepsis is the body's extreme response to an infection. It is life-threatening, and without timely treatment, sepsis can rapidly lead to tissue damage, organ failure, and . Sepsis happens when an infection you already have-in your skin, lungs, urinary tract or somewhere else-triggers a chain reaction throughout your body. 1 PREVENT INFECTIONS Take good care of chronic conditions. Talk to your doctor about getting the recommended vaccines. 2 PRACTICE GOOD HYGIENE Wash your hands frequently. Keep cuts or open sores clean and covered until they are healed. 3 KNOW THE SYMPTOMS Confusion or disorientation Shortness of breath High heart rate Fever, shivering, or feeling very cold Extreme pain or discomfort Clammy or sweaty skin 4 ACT FAST Get medical care IMMEDIATELY if you suspect sepsis or if you have an infection that is not getting better or is getting worse. To learn more about sepsis and how to prevent infections, visit www.cdc.gov/sepsis. The examination and treatment you have received in the Emergency Department has been done to provide an appropriate evaluation and stabilizing treatment on an emergency basis only. Given the limited resources, it is not meant to be a substitute for complete medical care. The follow-up doctor you named will receive a copy of your records and all test reports. IT IS IMPORTANT THAT YOU SCHEDULE A FOLLOW-UP APPOINTMENT AND ARE RE-EVALUATED. You should report any new complaints, symptoms, or remaining problems at that time. IT IS IMPOSSIBLE FOR THE EMERGENCY DEPARTMENT TO RECOGNIZE AND TREAT ALL ELEMENTS OF INJURY OR ILLNESS IN A SINGLE VISIT. If you have been referred to a specialist physician, it means that we believe you may have a condition that requires the expertise of a specialist. These physicians work in partnership with the hospital and have agreed to see referred patients in their office for further evaluation. KEEP IN MIND THAT THE SPECIALIST HAS HIS/HER OWN OFFICE POLICIES WHICH MAY REQUIRE PROPER INSURANCE OR PAYMENT UP FRONT BEFORE THE SPECIALIST WILL SEE YOU. It is your responsibility to call the specialist physician to make an appointment. We do not have the ability to refer patients to specialists/physicians that work with specific insurance companies. Please be advised that all financial charges or billing practices are determined by that practice, not the hospital. If your insurance company requires that you see a specialist from their approved list, it is your responsibility to contact your insurance company to make those arrangements. It is also your responsibility to follow any other requirements of your insurance company necessary to obtain coverage for claims submitted. We will bill your insurance; however, you are responsible today for any co-pay amounts. You will receive a separate bill for any services you may have received including: emergency, radiology, or pathology physicians. Patient Name:KASSI KONG I have received this information and was given the opportunity to ask questions. Patient/Drilling Foreman Name: Patient/Drilling Foreman Signature: Relationship to Patient: Clinician/Hospital Drilling Foreman Signature: Please Provide a Telephone Number Where You Can Be Reached: Is it Permissible To Leave a Message? Date: documented in this encounter Plan of Treatment Not on file documented as of this encounter Visit Diagnoses Not on filedocumented in this encounter
--- OUTSIDE RECORDS SUMMARY | 2025-03-25 07:27 | XMS_ITS | Encounter Summary ---
Author Organization [employer] Address [address] [place] [address] Care Team Providers Care Legal Director Name Role Phone Unavailable Primary Care Provider Unavailabl e Encounter Details Date Type Department Care Team (Late st Contact Info) Description 06/21/2021 Transcribed Document [facility] [place] Family [place] [facility] [place] [address] ProviderRikki MD [facility] [place] [id number] Social History Tobacco Use Types Packs/Day Years [...] ProviderMD - 06/21/2021 9:55 PM CDT ED Assessment Entered On: 06/21/2021 22:29 EDT Performed On: 06/21/2021 22:27 EDT by rAuna Garcia ED Quick Look Assessment Level of Consciousness : Alert, Awake Affect/Behavior : Appropriate, Cooperative Orientation : Oriented x 4 Skin Temperature : Warm Skin Description : Normal for ethnicity Aruna Garcia - 06/21/2021 22:27 EDT ED General-Functional Assess Information Obtained From : Patient Preferred Communication Mode : Verbal Communication Barrier : None Primary Language : Moldovan Any Spiritual/Cultural Needs or Requests : No Currently in Unsafe Situation : No Aruna Garcia 06/21/2021 22:27 EDT Social Habits Smoking Status : Never (less than 100 in lifetime; none in last 30 days) Smokeless Tobacco Status : Never Desires Tobacco Cessation Calc : 0 Aruna Garcia 06/21/2021 22:27 EDT Social History (As Of: 06/21/2021 22:29:30 EDT) Cardiovascular ASMT, ED Cardiovascular Assessment WDL : REID with exceptions Cardiovascular Symptoms : Chest pain with activity Heart Rhythm : Regular Chest Pain : Yes Aruna Garcia 06/21/2021 22:27 EDT Respiratory Respiratory Assessment WDL : Aruna Fleming 06/21/2021 22:27 EDT Gastrointestinal ED Gastrointestinal Assessment WDL : Aruna Fleming 06/21/2021 22:27 EDT Genitourinary Assessment, ED Genitourinary Assessment WDL : Aruna Fleming 06/21/2021 22:27 EDT Musculoskeletal Musculoskeletal Assessment WDL : Aruna Fleming 06/21/2021 22:27 EDT Integumentary Assessment Integumentary Assessment WDL : Aruna Fleming 06/21/2021 22:27 EDT Electronically signed by Giacomo Azar [employer] [facility] Risk Control Consultant Cerner at 01/28/2023 10:52 PM CDT documented in this encounter Plan of Treatment Not on file documented as of this encounter Visit Diagnoses Not on filedocumented in this encounter
--- OUTSIDE RECORDS SUMMARY | 2025-03-25 07:27 | XMS_ITS | Encounter Summary ---
Author Organization [employer] Address [address] [place] [address] Care Team Providers Care Wind Farm Operations Manager Name Role Phone Unavailable Primary Care Provider Unavailabl e Encounter Details Date Type Department Care Team (Late st Contact Info) Description 06/22/2021 Transcribed Document [facility] [place] Family [place] [facility] [place] [address] ProviderRikki MD [address] [place] [id number] Social History Tobacco Use Types Packs/Day Years Used Date Smoking Tobacco: Never Assessed Comments Unknown Sex and Gender Information Value Date Recorded Sex Assigned at Female 04/11/2022 6:48 PM CDT Legal Sex Female 6:48 PM CDT Gender Identity Female 04/11/2022 6:48 PM CDT Sexual Orientation Not on file documented as of this encounter Miscellaneous Notes * Cerner Conversion Note - Rikki ProviderMD - 06/22/2021 12:18 AM CDT Patient: KASSI KONG Age: 51 years Sex: Female : 1970 Associated Diagnoses: Chest wall pain Author: COBY ALVARENGA PA-C Basic Information Additional information: Chief Complaint from Nursing Triage Note : Chief Complaint 06/21/2021 22:09 EDT Chief Complaint pt c/o chest pain X 15 minutes. pt states standing up makes pain worse. pt had heart cath done in February and has hx of heart failure. . 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 Patient states that she had some shortness of breath with standing but otherwise no shortness of breath nausea diaphoresis. Patient states she had a heart cath done by her vocational training director in [place] in February, she did not have any coronary artery disease but was advised that she had heart failure. She denies fever chills headache dizziness blurred vision cough congestion abdominal pain nausea vomiting diarrhea dysuria hematuria numbness increased lower extremity edema rash. Review of Systems Additional review of systems information: All other systems reviewed and otherwise negative. Health Status Allergies: Allergic Reactions (Selected) Severity Not Documented Penicillin- Hives and hives. Sulfamethoxazole-trimethoprim- Hives and hives. SUMAtriptan- Other anaphylactic shock and other anaphylactic shock.. Medications: (Selected) . Immunizations: Per nurse's notes. Past Medical/ Family/ Social History Medical history Reviewed as documented in chart. Surgical history: No active procedure history items have been selected or recorded., Reviewed as documented in chart. Family history: No family history items have been selected or recorded., Reviewed as documented in chart. Social history: Social & Psychosocial Habits No Data Available . Problem list: No qualifying data available , per nurse's notes. Physical Examination Vital Signs Vital Signs/Vital Measures 06/21/2021 22:27 EDT Systolic Blood Pressure 137 mmHg Diastolic Blood Pressure 76 mmHg Temperature Source Oral Temperature Mode Fahrenheit Temperature, Fahrenheit 97.9 Deg F Heart Rate, Apical 71 bpm Respiratory Rate 18 Breaths/Min Oxygen Saturation 100 % Oxygen Therapy Mode Room air . Measurements 06/21/2021 22:09 EDT Height Source Stated Height Entry Format [place] Height/Length, TAJIK (ft) 5 ft Height/Length TAJIK 3 Inch CLINICALHEIGHT 160.02 cm [place] Body Weight 52.02 kg Weight Source, ED Critical estimated dosing weight Weight Entry Format [place] Weight [place] lb 220 lb CLINICALWEIGHT 100 kg Body Surface Area (BSA) 2.02 m2 Body Mass Index 39.1 kg/m2 HI . Oxygen Saturation 06/21/2021 22:27 EDT Oxygen Saturation 100 % . General: Alert, no acute distress. Skin: Warm, dry, pink, intact. Head: Normocephalic, atraumatic. Neck: Supple, trachea midline. Eye: Normal conjunctiva. Ears, nose, mouth and throat: Oral mucosa moist. Cardiovascular: Regular rate and rhythm, Normal peripheral perfusion, Mild lower extremity edema bilaterally minimal pitting. Respiratory: Lungs are clear to auscultation, respirations are non-labored. Gastrointestinal: Soft, Nontender, Non distended, Normal bowel sounds. Back: Nontender, Normal range of motion. Musculoskeletal: Normal ROM, normal strength. Neurological: Alert and oriented to person, place, time, and situation, No focal neurological deficit observed. Psychiatric: Cooperative, appropriate mood & affect. Medical Decision Making Differential Diagnosis: Unstable angina, angina, anxiety, atypical chest pain, pneumonia, gastroesophageal reflux disease, costochondritis, pleurisy, chest wall pain, congestive heart failure. Documents reviewed: Emergency department nurses' notes. 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 Electrocardiogram: Initial EKG shows normal sinus rhythm at a rate of 69 bpm reviewed by EDMD. Results review: Lab results : Lab Results 06/22/2021 1:17 EDT Troponin I Ultra <0.015 ng/mL 06/21/2021 22:26 EDT Sodium Level 138 mmol/L Potassium Level 3.5 mmol/L Chloride Level 103 mmol/L Carbon Dioxide Level 31 mmol/L Anion Gap 8 LOW Glucose Level 118 mg/dL HI Blood Urea Nitrogen 8 mg/dL Creatinine Level 0.70 mg/dL eGFR >60 mL/min/1.73m2 eGFR NonAfrican >60 mL/min/1.73m2 Bun/Creatinine 11.4 Calcium Level 8.6 mg/dL Protein Total 7.8 Gram/dL Albumin Level 3.4 Gram/dL Globulin 4.4 Gram/dL A/G Ratio 0.8 LOW Bilirubin Total 0.2 mg/dL Alk Phos 75 Units/Liter AST 26 Units/Liter ALT 26 Units/Liter Troponin I Ultra <0.015 ng/mL ProBNP 132 pg/mL HI WBC 9.8 K/uL RBC 4.35 Million/uL Hgb 11.8 g/dL Hct 36.9 % MCV 84.8 fL MCH 27.1 pg MCHC 32.0 Gram/dL LOW Platelet Count 357 K/uL MPV 10.5 fL RDW 14.4 % Neut % 60.2 % Neut # 5.91 K/uL Lymph % 30.8 % Lymph # 3.02 x10(3)/uL Perry % 5.3 % Perry # 0.52 K/uL Eos % 2.4 % Eos # 0.24 x10(3)/uL Baso % 0.9 % Baso # 0.09 x10(3)/uL Slide Review No IG# 0.04 x10(3)/uL IG% 0.40 % Radiology results: Chest x-ray shows no acute cardiopulmonary disease reviewed by EDMD. Reexamination/ Reevaluation Time: 06/22/2021 01:59:00 . Notes: On reevaluation, patient is feeling much better. Pain-free. Troponins are negative. No significant EKG changes. Patient is to follow-up with PCP in 48 hours. Given strict return precautions. Verbalized understanding.. Impression and Plan Diagnosis Chest wall pain - Discharge, Medical Plan Condition: Improved. Disposition: Discharged Admit/Transfer/Discharge: Discharge (Order): Start: 06/22/2021 1:59 EDT, Discharge to: Home , Patient care transitioned to: Time: 06/22/2021 01:00:00, TAMEKA QUIROGA MD. Patient was given the following educational materials: Nonspecific Chest Pain, Adult. Follow up with: ALVARADO STILES Within 2 to 3 days. Counseled: Patient, Regarding diagnosis, Regarding diagnostic results, Regarding treatment plan, Patient indicated understanding of instructions. documented in this encounter Plan of Treatment Not on file documented as of this encounter Visit Diagnoses Not on filedocumented in this encounter
--- OUTSIDE RECORDS SUMMARY | 2025-03-25 07:27 | XMS_ITS | Encounter Summary ---
Author Organization [employer] Address [address] [place] [address] Care Team Providers Care Drafter Civil Name Role Phone Unavailable Primary Care Provider Unavailabl e Encounter Details Date Type Department Care Team (Late st Contact Info) Description 06/03/2019 Transcribed Document [facility] [place] Family Medicine [address] [place] [address] ProviderRikki MD [facility] [place] [address] Social History Tobacco Use Types [...] Montoya MD - 06/03/2019 2:51 PM CDT [facility] [place] [address] KASSI KONG :1970 Visit Time:06/03/2019 Your Visit Summary Your Care Team Admitting Physician - DRE POWER MARK, MD Attending Physician - MARIEL MCCRAY MD Primary Care Physician - ALVARADO STILES (REF), -[facility] Referring Physician - MARIEL MCCRAY MD Your [...] 2 days Follow Up with ALVARADO STILES (REF)MD-[facility] When Within 2 to 3 [address] Stiles is their Primary Care Provider. Please contact the Patient Resource Center at if you need assistance scheduling a Specialist or Primary Care Provider in the future. Where: [place] [address] [place] [address]- Allergies SUMAtriptan (Other Anaphylactic Shock, Other Anaphylactic [...] range between ( 0.0 and 7.0 ) [place] #: 0.44 K/uL -- Normal range between ( 0.16 and 1.00 ) Eos #: 0.28 x10(3)/uL -- Normal range between ( 0.00 and 0.80 ) [place] %: 5.2 % -- Normal range between [...] ) Urine Bilirubin Dipstick: Negative Urine Specific [place]: 1.021 -- Normal range between ( 1.005 [...] stand. This can reduce dizziness. ??? Take uckc-gvx-lwhtdst and prescription medicines only as told by [...] 10/01/2006 Document Revised: 03/08/2017 Document Reviewed: 06/14/2016 [email or web address] Interactive Patient Education ?? 2018 [employer] Head Injury, Adult There are many [...] Ask your health care provider for a xokj-uz-ehmj plan for gradually returning to activities. ??? [...] your friends, family, a trusted colleague, and woodworker helper about your injury, symptoms, and restrictions. Have them watch for any new or worsening problems. General instructions ??? Take lrzx-tbu-tbyyzfp and prescription medicines only as told by [...] This is often called the RICE strategy. Jtfp-zmw-rbzobke anti-inflammatory medicines may also be recommended for [...] are sitting or lying down. ??? Take gkqe-dvj-rhhjuws and prescription medicines only as told by [...] 07/11/2006 Document Revised: 02/08/2017 Document Reviewed: 02/16/2016 [employer] Interactive Patient Education ?? 2019 [employer] Concussion, Adult A concussion is a [...] are taking any medicines, including prescription medicines, pddr-bdm-flhlnoq medicines, and natural remedies. Some medicines, such [...] returning to activities. General instructions ??? Take hekt-kkj-enbcyqx and prescription medicines only as told by [...] Tell your teachers, school nurse, school counselor, project coach, strainer mill operator, or woodworker helper about your injury, symptoms, and restrictions. Tell [...] 12/21/2004 Document Revised: 09/11/2017 Document Reviewed: 09/11/2017 [employer] Interactive Patient Education ?? 2019 [employer] Emergency Awareness and Preventative Care STROKE [...] Assistance with quitting is available by contacting 4-644-LSZW-NOW. This is a free resource providing counseling, [...] was given the opportunity to ask questions. Patient/Physiologist Name: Patient/Physiologist Signature: Relationship to Patient: Clinician/Hospital Physiologist Signature: Please Provide a Telephone Number Where You Can Be Reached: Is it Permissible To Leave a Message? Date: Electronically signed by Doe, [facility] Conversion Washtub Worker Helper Cerner at 01/28/2023 11:08 PM CDT documented in this encounter Plan of Treatment Not on file documented as of this encounter Visit Diagnoses Not on filedocumented in this encounter
--- OUTSIDE RECORDS SUMMARY | 2025-03-25 07:27 | XMS_ITS | Encounter Summary ---
Author Organization [employer] Address [address] [place] [address] Care Team Providers Care Heating Systems Installer Name Role Phone Unavailable Primary Care Provider Unavailabl e Encounter Details Date Type Department Care Team (Late st Contact Info) Description 06/22/2021 Transcribed Document [facility] [place] Family Medicine [facility] [place] [address] ProviderRikki MD [address] [place] [id number] Social History Tobacco Use Types Packs/Day [...] Conversion Note - Rikki Montoya MD - 06/22/2021 2:03 AM CDT [facility] [address] KASSI KONG :1970 Visit Time:06/21/2021 Your Visit Summary Your Care Team Primary Provider: TAMEKA QUIROGA Secondary Provider: Your Diagnosis Chest pain, Chest pain Chest wall pain Medical Information You may obtain a copy [...] do next Follow-Up Appointments Follow Up with ALVARADO STILES When Within 2 to 3 days Where: [place] [address]- [facility] (1) Allergies SUMAtriptan (Other Anaphylactic Shock, Other Anaphylactic [...] This Visit (last charted value for your 06/21/2021 visit) Hematology 06/21/2021 10:26 PM WBC: 9.8 K/uL -- Normal range between ( 4.5 and 10.5 ) RBC: 4.35 Million/uL -- Normal range between ( 3.93 and 5.22 ) Hct: 36.9 % -- Normal range between ( 34.1 and 44.9 ) Hgb: 11.8 g/dL -- Normal range between ( 11.2 and 15.7 ) Platelet Count: 357 K/uL -- Normal range between ( 163 and 369 ) MCH: 27.1 pg -- Normal range between ( 25.6 and 32.2 ) MCHC: 32.0 Gram/dL -- Normal range between ( 32.2 and 36.5 ) MCV: 84.8 fL -- Normal range between ( 79.0 and 94.8 ) Slide Review: No Eos %: 2.4 % -- Normal range between ( 0.0 and 7.0 ) [place] #: 0.52 K/uL -- Normal range between ( 0.16 and 1.00 ) Eos #: 0.24 x10(3)/uL -- Normal range between ( 0.00 and 0.80 ) [place] %: 5.3 % -- Normal range between ( 3.0 and 9.0 ) Baso %: 0.9 % -- Normal range between ( 0.0 and 1.5 ) Baso #: 0.09 x10(3)/uL -- Normal range between ( 0.00 and 0.20 ) RDW: 14.4 % -- Normal range between ( 11.7 and 14.9 ) Neut %: 60.2 % -- Normal range between ( 34.0 and 71.0 ) Neut #: 5.91 K/uL -- Normal range between ( 1.56 and 6.13 ) Lymph %: 30.8 % -- Normal range between ( 19.3 and 53.1 ) Lymph #: 3.02 x10(3)/uL -- Normal range between ( 1.00 and 3.90 ) MPV: 10.5 fL -- Normal range between ( 9.4 and 12.4 ) IG#: 0.04 x10(3)/uL -- Normal range between ( 0.00 and 0.05 ) IG%: 0.40 % -- Normal range between ( 0.00 and 0.60 ) General Chemistry 06/21/2021 10:26 PM Creatinine Level: 0.70 mg/dL -- Normal range between ( 0.55 and 1.02 ) Sodium Level: 138 mmol/L -- Normal range between ( 136 and 146 ) Potassium Level: 3.5 mmol/L -- Normal range between ( 3.5 and 5.1 ) Chloride Level: 103 mmol/L -- Normal range between ( 102 and 112 ) Carbon Dioxide Level: 31 mmol/L -- Normal range between ( 21 and 32 ) Anion Gap: 8 -- Normal range between ( 9 and 20 ) Bilirubin Total: 0.2 mg/dL -- Normal range between ( 0.2 and 1.2 ) A/G Ratio: 0.8 -- Normal range between ( 1.1 and 2.5 ) ALT: 26 Units/Liter -- Normal range between ( 13 and 56 ) AST: 26 Units/Liter -- Normal range between ( 5 and 37 ) Globulin: 4.4 Gram/dL -- Normal range between ( 1.5 and 4.5 ) Alk Phos: 75 Units/Liter -- Normal range between ( 27 and 136 ) Bun/Creatinine: 11.4 -- Normal range between ( 8.0 and 20.0 ) Calcium Level: 8.6 mg/dL -- Normal range between ( 8.4 and 10.1 ) eGFR : >60 mL/min/1.73m2 eGFR NonAfrican: >60 mL/min/1.73m2 Glucose Level: 118 mg/dL -- Normal range between ( 74 and 106 ) Blood Urea Nitrogen: 8 mg/dL -- Normal range between ( 7 and 22 ) Protein Total: 7.8 Gram/dL -- Normal range between ( 6.4 and 8.2 ) Albumin Level: 3.4 Gram/dL -- Normal range between ( 3.4 and 5.0 ) Cardiac Specific Markers 06/22/2021 1:17 AM Troponin I Ultra: <0.015 ng/mL -- Normal range between ( 0.015 and 0.045 ) 06/21/2021 10:26 PM ProBNP: 132 pg/mL -- Normal range between ( 0 and 125 ) Diagnostic Radiology 06/21/2021 10:18 PM CR Chest 1 Vw Portable: CR Chest 1 Vw Portable Education [employer] Nonspecific Chest Pain, Adult Chest pain can be caused by many different conditions. It can be caused by a condition that is life-threatening and requires treatment right away. It can also be caused by something that is not life-threatening. If you have chest pain, it can be hard to know the difference, so it is important to get help right away to make sure that you do not have a serious condition. Some life-threatening causes of chest pain include: ??? Heart attack. ??? A tear in the body's main blood vessel (aortic dissection). ??? Inflammation around your heart (pericarditis). ??? A problem in the lungs, such as a blood clot (pulmonary embolism) or a collapsed lung (pneumothorax). Some non life-threatening causes of chest pain include: ??? Heartburn. ??? Anxiety or stress. ??? Damage to the bones, muscles, and cartilage that make up your chest wall. ??? Pneumonia or bronchitis. ??? Shingles infection (varicella-zoster virus). Chest pain can feel like: ??? Pain or discomfort on the surface of your chest or deep in your chest. ??? Crushing, pressure, aching, or squeezing pain. ??? Burning or tingling. ??? Dull or sharp pain that is worse when you move, cough, or take a deep breath. ??? Pain or discomfort that is also felt in your back, neck, jaw, shoulder, or arm, or pain that spreads to any of these areas. Your chest pain may come and go. It may also be constant. Your health care provider will do lab tests and other studies to find the cause of your pain. Treatment will depend on the cause of your chest pain. Follow these instructions at home: Medicines ??? Take jwgf-qux-zotpawr and prescription medicines only as told by your health care provider. ??? If you were prescribed an antibiotic, take it as told by your health care provider. Do not stop taking the antibiotic even if you start to feel better. Lifestyle ??? Rest as directed by your health care provider. ??? Do not use any products that contain nicotine or tobacco, such as cigarettes and e-cigarettes. If you need help quitting, ask your health care provider. ??? Do not drink alcohol. ??? Make healthy lifestyle choices as recommended. These may include: ? Getting regular exercise. Ask your health care provider to suggest some activities that are safe for you. ? Eating a heart-healthy diet. This includes plenty of fresh fruits and vegetables, whole grains, low-fat (lean) protein, and low-fat dairy products. A dietitian can help you find healthy eating options. ? Maintaining a healthy weight. ? Managing any other health conditions you have, such as high blood pressure (hypertension) or diabetes. ? Reducing stress, such as with yoga or relaxation techniques. General instructions ??? Pay attention to any changes in your symptoms. Tell your health care provider about them or any new symptoms. ??? Avoid any activities that cause chest pain. ??? Keep all follow-up visits as told by your health care provider. This is important. This includes visits for any further testing if your chest pain does not go away. Contact a health care provider if: ??? Your chest pain does not go away. ??? You feel depressed. ??? You have a fever. Get help right away if: ??? Your chest pain gets worse. ??? You have a cough that gets worse, or you cough up blood. ??? You have severe pain in your abdomen. ??? You faint. ??? You have sudden, unexplained chest discomfort. ??? You have sudden, unexplained discomfort in your arms, back, neck, or jaw. ??? You have shortness of breath at any time. ??? You suddenly start to sweat, or your skin gets clammy. ??? You feel nausea or you vomit. ??? You suddenly feel lightheaded or dizzy. ??? You have severe weakness, or unexplained weakness or fatigue. ??? Your heart begins to beat quickly, or it feels like it is skipping beats. These symptoms may represent a serious problem that is an emergency. Do not wait to see if the symptoms will go away. Get medical help right away. Call your local emergency services (911 in the [place] Do not drive yourself to the hospital. Summary ??? Chest pain can be caused by a condition that is serious and requires urgent treatment. It may also be caused by something that is not life-threatening. ??? If you have chest pain, it is very important to see your health care provider. Your health care provider may do lab tests and other studies to find the cause of your pain. ??? Follow your health care provider's instructions on taking medicines, making lifestyle changes, and getting emergency treatment if symptoms become worse. ??? Keep all follow-up visits as told by your health care provider. This includes visits for any further testing if your chest pain does not go away. This information is not intended to replace advice given to you by your health care provider. Make sure you discuss any questions you have with your health care provider. Document Revised: 04/03/2019 Document Reviewed: 04/03/2019 [employer] Patient Education ?? 2020 [employer] ([employer] Emergency Awareness and Preventative Care STROKE is [...] Assistance with quitting is available by contacting 4-728-RZBG-NOW. This is a free resource providing counseling, [...] was given the opportunity to ask questions. Patient/Public Works Inspector Name: Patient/Public Works Inspector Signature: Relationship to Patient: Clinician/Hospital Public Works Inspector Signature: Please Provide a Telephone Number Where You Can Be Reached: Is it Permissible To Leave a Message? Date: documented in this encounter Plan of Treatment Not on file documented as of this encounter Visit Diagnoses Not on filedocumented in this encounter
--- OUTSIDE RECORDS SUMMARY | 2025-03-25 07:27 | XMS_ITS | Encounter Summary ---
Author Organization [employer] Address [address] [place] [address] Care Team Providers Care Umbrella Finisher Name Role Phone Unavailable Primary Care Provider Unavailabl e Encounter Details Date Type Department Care Team (Late st Contact Info) Description 06/11/2019 Transcribed Document [facility] [place] [address] [place] [address] ProviderRikki MD [address], [place] [id number] Social History Tobacco Use Types Packs/Day Years Used Date Smoking Tobacco: Never Assessed Comments Unknown Sex and Gender Information Value Date Recorded Sex Assigned at Female 04/11/2022 6:48 PM CDT Legal Sex Female 6:48 PM CDT Gender Identity Female 04/11/2022 6:48 PM CDT Sexual Orientation Not on file documented as of this encounter Miscellaneous Notes * Cerner Conversion Note - Historical MD Lindsay - 06/11/2019 9:55 AM CDT Event Note Entered On: 06/11/2019 9:56 EDT Performed On: 06/11/2019 9:55 EDT by Lucero Torrez RN Event Note Description of Event : Chart review s/p fall. Lucero Torrez RN - 06/11/2019 9:55 EDT documented in this encounter Plan of Treatment Not on file documented as of this encounter Visit Diagnoses Not on filedocumented in this encounter
--- OUTSIDE RECORDS SUMMARY | 2025-03-25 07:27 | XMS_ITS | Encounter Summary ---
Author Organization [facility] Address [address] [place] [address] Care Team Providers Care Implant Polisher Name Role Phone Unavailable Primary Care Provider Unavailabl e Encounter Details Date Type Department Care Team (Late st Contact Info) Description 06/03/2019 Transcribed Document [facility] [place] [address] ProviderRikki MD [facility], [place] [id number] Social History Tobacco Use Types Packs/Day Years [...] Conversion Note - Historical ProviderMD - 06/03/2019 2:43 PM CDT Patient: KASSI CLAUDIO Age: 49 years Sex: Female : 1970 Associated Diagnoses: Hand contusion; Head injury Author: CHRISTEL CASILLAS, GAGANDEEP Basic Information Time seen: Immediately upon arrival. History source: Patient. Arrival mode: Private vehicle. History limitation: None. Additional information: Chief Complaint from Nursing Triage Note : Chief Complaint 06/03/2019 10:53 EDT Chief Complaint pt has knot on top of hand , noticed it last night, + PMS + ROM CR < 3 sec . History of Present Illness Patient states that she noticed a bruise to the top of her right hand this morning. She states that it happened sometime last night. Patient has recently started taking Xarelto. End of motion. There is mild swelling and bruising to the top of the hand. There is palpable pulses. Patient is alert and in no acute distress. Review of Systems Constitutional symptoms: Negative except as documented in HPI. Respiratory symptoms: Negative except as documented in HPI. Cardiovascular symptoms: Negative except as documented in HPI. Musculoskeletal symptoms: Reports: Right, neck, pain, swelling, no decreased range of motion, no trauma. Neurologic symptoms: Negative except as documented in HPI. Hematologic/Lymphatic symptoms: Bleeding tendency, bruising tendency. Health Status Allergies: Allergic Reactions (Selected) Severity Not Documented Penicillin- Hives and hives. Sulfamethoxazole-trimethoprim- Hives and hives. SUMAtriptan- Other anaphylactic shock and other anaphylactic shock.. Medications: Per nurse's notes. Immunizations: Up to date. Past Medical/ Family/ Social History Surgical history: No active procedure history items have been selected or recorded., Reviewed as documented in chart. Family history: No family history items have been selected or recorded., Reviewed as documented in chart. Social history: Social & Psychosocial Habits No Data Available , Reviewed as documented in chart. Problem list: No qualifying data available , per nurse's notes. Physical Examination Vital Signs Vital Signs/Vital Measures 06/03/2019 13:00 EDT Systolic Blood Pressure 118 mmHg Diastolic Blood Pressure 65 mmHg Mean Arterial Pressure (MAP)-BMDI 87 Heart Rate Monitored 74 bpm Respiratory Rate 15 Breaths/Min Oxygen Saturation 98 % Oxygen Therapy Mode Room air 06/03/2019 12:30 EDT Systolic Blood Pressure 113 mmHg Diastolic Blood Pressure 65 mmHg Mean Arterial Pressure (MAP)-BMDI 84 Heart Rate Monitored 74 bpm Respiratory Rate 21 Breaths/Min HI Oxygen Saturation 97 % 06/03/2019 10:53 EDT Systolic Blood Pressure 128 mmHg Diastolic Blood Pressure 80 mmHg Temperature Source Oral Temperature Mode Fahrenheit Temperature, Fahrenheit 98.2 Deg F Clinical Temperature, C 36.8 Deg C Peripheral Pulse Rate 82 bpm Respiratory Rate 16 Breaths/Min Oxygen Saturation 98 % Oxygen Therapy Mode Room air . Measurements 06/03/2019 10:53 EDT Height Source Stated Height Entry Format [place] Height/Length, BOTSWANAN (ft) 5 ft Height/Length B[place] 3 Inch CLINICALHEIGHT 160.02 cm [place] Body Weight 52.02 kg Weight Source, ED Critical estimated dosing weight Weight Entry Format [place] Weight [place] lb 220 lb CLINICALWEIGHT 100 kg Body Surface Area (BSA) 2.02 m2 Body Mass Index 39.1 kg/m2 HI . Oxygen Saturation 06/03/2019 13:00 EDT Oxygen Saturation 98 % 06/03/2019 12:30 EDT Oxygen Saturation 97 % 06/03/2019 10:53 EDT Oxygen Saturation 98 % . General: Alert, no acute distress. Skin: Warm, pink, intact. Cardiovascular: Regular rate and rhythm. Respiratory: Lungs are clear to auscultation, respirations are non-labored, breath sounds are equal. Musculoskeletal: Hand: Right, tenderness, swelling, ecchymosis, range of motion normal, no deformity. Neurological: Alert and oriented to person, place, time, and situation. Lymphatics: No lymphadenopathy. Psychiatric: Cooperative. Medical Decision Making Differential Diagnosis: Hand pain, wrist pain, fracture, sprain, contusion, ID, head injury, concussion,. Orders Include Previous Orders (Selected) Inpatient Orders Ordered EKG: Completed .Automated Differential: .Urinalysis Microscopic: CBC w/ Auto Diff: CMP Comprehensive Metabolic Panel: CR Hand Min 3 Vws RT: CT Head WO: Cardiac Monitoring: ED Adult Fall Risk Assessment: ED Adult Triage: ED Clinical Reconciliation: ED school occupational therapist: Normal Saline Flush: 10 mL, IV Push, 1-Time Saline Lock Insert: Troponin I Ultra: Urinalysis w Microscopic: . Results review: All Results 06/03/2019 12:[address] Head WO REPORT 06/03/2019 11:13 EDT CR Hand Min 3 Vws RT REPORT 06/03/2019 11:10 EDT ED Nursing Record 06/03/2019 10:53 EDT ED Nursing Record (Modified) 06/03/2019 10:46 EDT Consent Forms Consent Forms 06/03/2019 13:08 EDT EKG Completed by NEVILLE CHOE, RUDDY EKG Time Completed 06/03/2019 12:15 EKG Communicated to Provider MARIEL MCCRAY MD EKG Time Communicated to Provider 06/03/2019 12:17 06/03/2019 13:06 EDT Telemetry Status Applied 06/03/2019 13:00 EDT Systolic Blood Pressure 118 mmHg Diastolic Blood Pressure 65 mmHg Mean Arterial Pressure (MAP)-BMDI 87 Heart Rate Monitored 74 bpm Respiratory Rate 15 Breaths/Min Oxygen Saturation 98 % Oxygen Therapy Mode Room air 06/03/2019 13:06 Over the needle Forearm Right 18 gauge Peripheral Catheter/Needle Length: 1 ?? Inch Peripheral IV Activity: Blood drawn with insertion, Start Peripheral IV Inserted by: NEVILLE CHOE RN Peripheral IV Number of Attempts: 1 Peripheral IV Skin Preparation: Chlorhexadine Peripheral IV Site Assessment: IV site WDL Peripheral IV Infiltration Score: 0 Peripheral IV Phlebitis Score: 0 IV Site/Line Care: Secured with tape IV Dressing Activity: Applied Peripheral IV Dressing: Occlusive Peripheral IV Dressing Condition: Dry, Intact 06/03/2019 12:53 EDT Urine Type U CleanCatch Urine Color Yellow Urine Appearance Clear Urine Specific [place] 1.021 Urine pH Dipstick 7.5 Urine Leukocyte Esterase Negative Urine Nitrite Negative Urine Protein Dipstick Negative Urine Glucose Dipstick Negative Urine Ketones Dipstick Negative Urine Urobilinogen Dipstick 1.0 EU/dL Urine Bilirubin Dipstick Negative Urine Blood Dipstick Negative Ur RBC 0-2 /HPF Ur WBC 0-2 /HPF Ur Bacteria Trace Ur Squamous Epithelial Cells 5-10 /HPF 06/03/2019 12:30 EDT Systolic Blood Pressure 113 mmHg Diastolic Blood Pressure 65 mmHg Mean Arterial Pressure (MAP)-BMDI 84 Heart Rate Monitored 74 bpm Respiratory Rate 21 Breaths/Min HI Oxygen Saturation 97 % 06/03/2019 12:09 EDT Sodium Level 135 mmol/L LOW Potassium Level 3.3 mmol/L LOW Chloride Level 98 mmol/L LOW Carbon Dioxide Level 30 mmol/L Anion Gap 10 Glucose Level 110 mg/dL HI Blood Urea Nitrogen 9 mg/dL Creatinine Level 0.60 mg/dL eGFR >60 mL/min/1.73m2 eGFR NonAfrican >60 mL/min/1.73m2 Bun/Creatinine 15.0 Calcium Level 8.9 mg/dL Protein Total 7.9 Gram/dL Albumin Level 3.6 Gram/dL Globulin 4.3 Gram/dL A/G Ratio 0.8 LOW Bilirubin Total 0.3 mg/dL Alk Phos 93 Units/Liter AST 17 Units/Liter ALT 22 Units/Liter Troponin I Ultra <0.015 ng/mL WBC 8.4 K/uL RBC 4.28 Million/uL Hgb 12.5 g/dL Hct 37.9 % MCV 88.6 fL MCH 29.2 pg MCHC 33.0 Gram/dL Platelet Count 392 K/uL HI MPV 10.9 fL RDW 12.2 % Neut % 59.9 % Neut # 5.03 K/uL Lymph % 30.2 % Lymph # 2.54 x10(3)/uL [place] % 5.2 % [place] # 0.44 K/uL Eos % 3.3 % Eos # 0.28 x10(3)/uL Baso % 1.0 % Baso # 0.08 x10(3)/uL Slide Review No IG# 0.03 x10(3)/uL IG% 0.40 % 06/03/2019 12:08 EDT sodium chloride Not Done: Not Appropriate at this Time (Not Done) 06/03/2019 11:38 EDT Nurse Collect Order Detail 3.00 06/03/2019 11:38 EDT Nurse Collect Order Detail 3.00 06/03/2019 11:28 EDT Nurse Collect Order Detail 3.00 06/03/2019 11:28 EDT Nurse Collect Order Detail 3.00 06/03/2019 11:10 EDT Level of Consciousness Alert, Awake Orientation Oriented x 4 Affect/Behavior Appropriate, Calm, Cooperative Musculoskeletal Assessment WDL WDL with patient specific variances Musculoskeletal Assessment Comment knot on R hand Skin Description Dry Skin Temperature Warm ABCs Fall Injury Risk Identification None JAMES Hx Falls Immediate/Within 3 Months No James Secondary Diagnosis No JAMES Ambulatory Aid None James IV Therapy or IV Access No James Gait/Transferring Normal, bedrest, immobile JAMES Mental Status Oriented to own ability James Fall Risk Score 0 James Fall Scale Risk Level 0-24 Low Risk [place] Fall Interventions Adequate lighting, Bed in low position, Call device within reach, Hourly comfort/safety rounds, Non-Slip footwear, Personal items within reach, Reinforced to call for assistance before getting out of bed, Room free of clutter/spills, Upper side-rails up, Wheels locked, Wires/Cords secured Fall Moderate to High Risk Interventions Patient room close to nurses station Communication Barrier None Primary Language [place] Information Obtained From Patient Smoking Status Refused tobacco status screen Smokeless Tobacco Status Never Any Spiritual/Cultural Needs or Requests No Currently in Unsafe Situation No 06/03/2019 10:56 EDT Estimated Creatinine Clearance 94.85 mL/Min 06/03/2019 10:53 EDT Systolic Blood Pressure 128 mmHg Diastolic Blood Pressure 80 mmHg Temperature Source Oral Temperature Mode Fahrenheit Temperature, Fahrenheit 98.2 Deg F Clinical Temperature, C 36.8 Deg C Peripheral Pulse Rate 82 bpm Respiratory Rate 16 Breaths/Min Oxygen Saturation 98 % Oxygen Therapy Mode Room air Height Source Stated Height Entry Format [place] Height/Length, B[place] (ft) 5 ft Height/Length [place] 3 Inch CLINICALHEIGHT 160.02 cm [place] Body Weight 52.02 kg Weight Source, ED Critical estimated dosing weight Weight Entry Format [place] Weight [place] lb 220 lb CLINICALWEIGHT 100 kg Body Surface Area (BSA) 2.02 m2 Body Mass Index 39.1 kg/m2 HI Pain Assessment Initial assessment Pain Scale Used 0-10 Scale Pain Intensity 5 Pain Location Hand, right Tried to Harm Yourself in the Past? No Thoughts of Harming/Killing Yourself No Tuberculosis Symptoms None Infectious Disease History None Fever/Chills Last 48 Hours No Travel To Regions with Travel Advisories No Travel Outside [place] Within Last 30 Days No Contact With Traveler to Advisory Region No Chief Complaint pt has knot on top of hand , noticed it last night, + PMS + ROM CR < 3 sec Transported to ED by Private vehicle To Room Via Ambulate Tracking Acuity 3 - Urgent (Modified) Instrumentation And Controls Designer Needed No Accompanied by Unaccompanied Mode of Arrival Ambulatory 06/03/2019 10:46 EDT Nurse Collect Order Detail 3.00 Nurse Collect Order Detail 3.00 . Radiology results: Radiology Results (Last 48 hours) [id number] -- 06/03/2019 10:45 CR Hand Min 3 Vws RT (06/03/2019 11:13) Result: RIGHT HAND SERIESHISTORY: Palpable knot.COMPARISON: None.FINDINGS: A three view exam demonstrates no acute fracture ordislocation. The joint spaces appear unremarkable. No soft tissueabnormality is seen. IMPRESSION: No acute process. Images reviewed, interpreted, and dictated by Dr. Ranjit Anne.Transcribed by Monse Addison (R).I have personally viewed, interpreted and dictated the examination. Ihave read and agree with the above final transcribed report. CT Head WO (06/03/2019 12:36) Result: HEAD CT 06/03/2019 12:08 PM HISTORY: Headache.COMPARISON: None.TECHNIQUE: Multiple axial CT images were performed from the foramenmagnum to the vertex. This study was performed with techniques to keepradiation doses as low as reasonably achievable, (ALARA). Individualizeddose reduction techniques using automated exposure control or adjustmentof mA and/or kV according to the patient size were employed.FINDINGS: The ventricles are normal in size. There is no evidence ofhemorrhage. No masses are identified. No extra-axial fluid is seen. Thesinuses are normal. IMPRESSION: No acute intracranial process. . Reexamination/ Reevaluation Time: 06/03/2019 12:00:00 . Assessment: Patient states that she went to stand up to use her phone when she had a syncopal episode. She states that she had the same symptoms last week. There is no head injury. There is no neck injury or tenderness. There is been no chest pain or shortness of breath. Patient is alert and in no acute distress. Patient did have labs drawn after this event. Troponin is reported as negative. EKG is normal sinus with no ST changes. CT head was reported as negative. Patient will be discharged and instructed to follow-up with her primary care.. 1215- EKG is normal sinus rhythm. Rate of 69. No abnormalities noted. No ST elevation. Impression and Plan Diagnosis Hand contusion - Discharge, Emergency medicine, Medical Head injury - Discharge, Emergency medicine, Medical Plan Condition: Stable. Disposition: Discharged Admit/Transfer/Discharge: Discharge (Order): Start: 06/03/2019 14:48 EDT, Discharge to: Home. Patient was given the following educational materials: Concussion, Adult, Contusion, Head Injury, Adult, Syncope. Follow up with: ALVARADO STILES (REF)[facility] Within 2 to 3 days Patient states??Dr. Stiles??is their Primary Care Provider. Please contact the Patient Resource Center at if you need assistance scheduling a Specialist or Primary Care Provider in the future.; Follow up with primary care provider Within 1 to 2 days; Return to Emergency Department Within As needed. Counseled: Patient, Regarding diagnosis, Regarding diagnostic results, Regarding treatment plan, Regarding prescription, Patient indicated understanding of instructions. documented in this encounter Plan of Treatment Not on file documented as of this encounter Visit Diagnoses Not on filedocumented in this encounter
--- OUTSIDE RECORDS SUMMARY | 2025-03-25 07:27 | XMS_ITS | Clinical Summary ---
Author Organization [employer] Address [address] [place] [address] Care Team Providers Care Climate Change Analyst Name Role Phone Unavailable Primary Care Provider [...]
--- OUTSIDE RECORDS SUMMARY | 2025-03-25 07:27 | XMS_ITS | Encounter Summary ---
Author Organization [employer] Address [address] [place] [address] Care Team Providers Care Chief Inspector Name Role Phone Unavailable Primary Care Provider Unavailabl e Encounter Details Date Type Department Care Team (Late st Contact Info) Description 06/21/2021 Transcribed Document [facility] [place] [address] [place] [address] ProviderRikki MD [address], [place] [address] Social History Tobacco Use Types Packs/Day Years [...] Historical ProviderMD - 06/21/2021 9:55 PM CDT [place] Suicide Severity Rating Scale (C-SSRS) Entered On: 06/21/2021 22:29 EDT Performed On: 06/21/2021 22:27 EDT by Aruna Garcia [place] Suicide Severity Rating Scale (C-SSRS) CSSRS Past Month Wish to be : No CSSRS Past Month Suicidal Thoughts : No CSSRS Lifetime Suicide Behavior : No Suicide Severity Rating Score : 0 Suicide Severity Rating : No Additional Care Required at this time Aruna Garcia - 06/21/2021 22:27 EDT Electronically signed by Giacomo Azar Conversion Application Security Consultant Cerner at 01/28/2023 10:57 PM CDT documented in this encounter Plan of Treatment Not on file documented as of this encounter Visit Diagnoses Not on filedocumented in this encounter
--- OUTSIDE RECORDS SUMMARY | 2025-03-25 07:27 | XMS_ITS | Encounter Summary ---
Author Organization [employer] Address [address] [place] [address] Care Team Providers Care Warehouse Production Worker Name Role Phone Unavailable Primary Care Provider Unavailabl e Encounter Details Date Type Department Care Team (Late st Contact Info) Description 06/03/2019 Transcribed Document [facility] [place] [facility] [place] [address] ProviderRikki MD [address], [place] [id number] Social History Tobacco Use Types Packs/Day Years [...] Conversion Note - Historical ProviderMD - 06/03/2019 2:48 PM CDT documented in this encounter Plan of Treatment Not on file documented as of this encounter Visit Diagnoses Not on filedocumented in this encounter
--- OUTSIDE RECORDS SUMMARY | 2025-03-25 07:28 | XMS_ITS | Encounter Summary ---
Author Organization [facility] Address [address] [place] [address] Care Team Providers Care Avionics Installer Name Role Phone Valentin Daniel MD Primary Care Provider [phone] Reason for Referral * Consultation (Routine) - Authorized Specialty Diagnoses / Procedures Referred By Giovani rose Referred To Contact Neurology Diagnoses Left foot drop Mechanical problems with limbs Polyneuropathy Valentin Daniel MD [address] [place] [address] Phone: tel: fax: Referral ID Status Reason Start Date Expiration Date Visits Requested Visits Authorized [id number] Authorized Specialty Services Required 02/16/2025 08/18/2026 1 1 Encounter Details Date Type Department Care Team (Late st Contact Info) Description 02/16/2025 [facility] [address] [place] [address] Valentin Daniel MD [address] [place] [address] Left foot drop (Primary Dx); Mechanical problems with limbs; Polyneuropathy Social History Tobacco Use Types Packs/Day Years Used Date Smoking Tobacco: Never Smokeless Tobacco: Never Alcohol Use Standard Drinks/Week Comments No 0 (1 standard drink = 0.6 oz pure alcohol) Alcoholic Drinks/day: Never Drank Alcohol PHQ-2 Answer Date Recorded Patient Health Questionnaire-2 Score 2 07/16/2024 PHQ-2A Answer Date Recorded Patient Health Questionnaire-2 Score 0 02/13/2023 Comments Unknown Sex and Gender Information Value Date Recorded Sex Assigned at Not on file Legal Sex Female 8:26 PM EDT Gender Identity Not on file Sexual Orientation Not on file documented as of this encounter Plan of Treatment Upcoming Encounters Date Type Department Care Team (Late st Contact Info) Description 05/06/2025 1:20 PM EDT Office Visit [facility] Medicine Specialties [address] [place] [address] Angela Todd APRN [address] [place] [address] 10/30/2025 8:00 AM EST Consult [facility] [address] [place] [address] Sim Tillman MD [address] [place] [address] Scheduled Referrals Name Type Priority Associated Diagnoses Order Schedule Ambulatory referral to Neurology Outpatient Referral Routine Left foot drop Mechanical problems with limbs Polyneuropathy Expected: 02/16/2025 (Approximate), Expires: 08/19/2026 documented as of this encounter Visit Diagnoses Diagnosis Left foot drop- Primary Other acquired deformity of ankle and foot Mechanical problems with limbs Polyneuropathy Unspecified hereditary and idiopathic peripheral neuropathy documented in this encounter Additional Health Concerns Infection Onset Date Last Indicated Resolved Time 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
--- OUTSIDE RECORDS SUMMARY | 2025-03-25 07:28 | XMS_ITS | Encounter Summary ---
Author Organization [employer] Address [address] [place] [address] Care Team Providers Care Condenser Cleaner Name Role Phone Unavailable Primary Care Provider Unavailabl e Encounter Details Date Type Department Care Team (Late st Contact Info) Description 06/03/2019 Transcribed Document [facility] [place] Family Medicine [address] [place] [address] ProviderRikki MD [address] [id number] Social History Tobacco Use Types Packs/Day Years [...] ProviderMD - 06/03/2019 10:46 AM CDT ED Assessment Entered On: 06/03/2019 11:11 EDT Performed On: 06/03/2019 11:10 EDT by NEVILLE CHOE RN ED Quick Look Assessment Level of Consciousness : Alert, Awake Affect/Behavior : Appropriate, Calm, Cooperative Orientation : Oriented x 4 Skin Temperature : Warm Skin Description : Dry NEVILLE CHOE RN - 06/03/2019 11:10 EDT ED General-Functional Assess Information Obtained From : Patient Preferred Communication Mode : Verbal Communication Barrier : None Primary Language : Eritrean Any Spiritual/Cultural Needs or Requests : No Currently in Unsafe Situation : No NEVILLE CHOE RN - 06/03/2019 11:10 EDT Social Habits Smoking Status : Refused tobacco status screen Smokeless Tobacco Status : Never Desires Tobacco Cessation Calc : 0 NEVILLE CHOE RN - 06/03/2019 11:20 EDT Social History (As Of: 06/03/2019 11:20:31 EDT) Musculoskeletal Musculoskeletal Assessment WDL : WDL with patient specific variances Musculoskeletal Assessment Comment : knot on R hand NEVILLE CHOE RN - 06/03/2019 11:10 EDT Electronically signed by [facility] Conversion Deck Cadet Cerner at 01/28/2023 10:51 PM CDT documented in this encounter Plan of Treatment Not on file documented as of this encounter Visit Diagnoses Not on filedocumented in this encounter
--- OUTSIDE RECORDS SUMMARY | 2025-03-25 07:28 | XMS_ITS | Encounter Summary ---
Author Organization [facility] Address [address] [place] [address] Care Team Providers Care Hull And Deck Remover Name Role Phone Valentin Daniel MD Primary Care Provider Encounter Details Date Type Department Care Team (Latest Contact Info) Description 02/05/2025 [facility] [address] [place] [address] Valentin Daniel MD [address] [place] [address] Polyneuropathy (Primary Dx); Foot drop, left foot Social History Tobacco Use Types Packs/Day Years [...] Upcoming Encounters Date Type Department Care Team ( st Contact Info) Description 05/06/2025 1:20 PM EDT Office Visit [facility] [address] [place] [address] Angela Todd, ASPHALT SMOOTHER [address] [place] [address] 10/30/2025 8:00 AM EST Consult [facility] [address] [place] [address] Sim Tillman MD [address] [place] [address] documented as of this encounter Visit Diagnoses Diagnosis Polyneuropathy- Primary Unspecified hereditary and idiopathic peripheral neuropathy Foot drop, left foot documented in this encounter Additional Health Concerns Infection Onset Date Last Indicated Resolved Time 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
--- OUTSIDE RECORDS SUMMARY | 2025-03-25 07:28 | XMS_ITS | Clinical Summary ---
Author Organization [facility] Address [address] [place] [address] Care Team Providers Care Sharepoint Designer Developer Name Role Phone Valentin Daniel MD Primary Care Provider [phone] Allergies Active Allergy Reactions Criticality Noted Date Comments Methyl Salicylate Other - please document in the comment field Low 05/28/2024 Other Unknown - Patient states they do not know rxn details Low 09/30/2012 Penicillins Hives Medium 10/24/2011 Protective Adhesive Powder Itching,Rash Medium 02/13/2023 Storax Other - please document in the comment field Low 05/28/2024 steri-strips Sulfacetamide Hives Medium 10/24/2011 Sumatriptan Anaphylaxis High 10/24/2011 Medications * This document contains information received from the source organization and may not represent a complete record from that organization. clobetasol (Temovate) 0.05 % cream 01/21/20 21 Active ergocalciferol 1.25 MG (68362 UT) capsule TAKE ONE CAPSULE BY MOUTH EVERY WEEK DIRECTED 03/01/20 21 Active HYDROcodone-acetam inophen ([place]) 10-325 MG tablet TAKE ONE TABLET BY MOUTH FOUR TIMES DAILY MAY CAUSE DROWSINESS 07/20/20 21 Active spironolactone (Aldactone) 50 MG tablet Take 50 mg by mouth 1 (one) time each day. 07/04/20 21 Active tiZANidine (Zanaflex) 4 MG tablet TAKE ONE TABLET BY MOUTH THREE TIMES DAILY NEEDED MAY CAUSE DROWSINESS 03/18/20 21 Active torsemide (Demadex) 20 MG tablet TAKE ONE TABLET BY MOUTH TWICE DAILY NEEDED FOR EDEMA 06/28/20 21 Active warfarin (Coumadin) 5 MG tablet TAKE ONE TABLET BY MOUTH EVERY DAY OR as otherwise directed 02/03/20 23 Active Ca Phosphate-Cholecal ciferol (Calcium/Vitamin D3 Gummies) 200-5 MG-MCG chewable tablet 2 tab(s) orally once a day Active albuterol 108 (90 Base) MCG/ACT inhaler 1 puff. 07/16/20 23 Active alendronate (Fosamax) 10 MG tablet 01/21/20 24 Active amitriptyline (Elavil) 25 MG tablet 02/01/20 24 Active cyanocobalamin (Vitamin B-12) 1000 MCG/ML injection INJECT 1 ML SUBCUTANEOUSLY ONCE A WEEK 01/21/20 24 Active ferrous sulfate 325 (65 Fe) MG tablet PLEASE SEE ATTACHED FOR DETAILED DIRECTIONS 11/15/19 24 Active Veozah 45 MG tablet 01/28/20 24 Active nystatin (Mycostatin) 711909 UNIT/GM powder 02/01/20 24 Active omeprazole (PriLOSEC) [address] capsule Take by mouth 1 (one) time each day. 12/19/19 24 Active ondansetron ODT (Zofran ODT) 8 MG disintegrating tablet Take 1 tablet (8 mg) by mouth 2 (two) times a day. 05/01/20 18 Active aspirin 81 MG EC tablet Take 1 tablet (81 mg) by mouth 1 (one) time each day. Active baclofen (Lioresal) 10 MG tablet 06/12/20 24 Active furosemide (Lasix) 20 MG tablet if needed. 07/10/20 24 Active pregabalin (Lyrica) 100 MG capsule 06/12/20 24 Active Multiple Vitamin (multivitamin) tablet Take 1 tablet by mouth 1 (one) time each day. Active hydroxychloroquine (Plaquenil) 200 MG tablet TAKE 1 TABLET BY MOUTH 2 TIMES A DAY 180 tablet 1 01/16/20 25 Active Resolved Problems Problem Noted Date Diagnosed Date Resolved Date Abnormal chest xray 07/16/2024 07/16/20 24 Acromioclavicular arthrosis 07/16/2024 07/16/2024 Overview (07/16/2024): Procedure note: Left acromioclavicular joint injection Potential complications of procedure were discussed with the patient. These include bleeding, and joint infection. The patient is on anticoagulation so I stressed the fact that bleeding could be a possibility. The patient understands the potential complications and agreed to the procedure. The area over the left AC joint was localized. The point of maximal tenderness was localized. This area was cleansed using Betadine solution. Using a sterile technique a 5 cc syringe containing 3 cc of 0.5% bupivacaine preservative-free and 0.5 cc of dexamethasone was mixed. Using a 27-gauge needle on the syringe the needle was advanced into the AC joint. Approximately 1/2 to 1 cc of solution was injected. Upon beginning injection the patient indicated that this was indeed the area of maximal tenderness. The needle was withdrawn, good hemostasis was obtained, the area was cleansed. The patient tolerated procedure well a Band-Aid was placed and the patient was discharged home. Acute allergic reaction 07/16/202411/2023 Acute hypokalemia 07/16/2024 07/16/2024 Overview (07/16/2024): This has been repleted and was a postsurgical issue. Anemia 07/16/2024 07/16/2024 Atypical angina 07/16/2024 07/16/2024 Bronchitis 07/16/2024 07/16/2024 CAD (coronary artery disease) 07/16/2024 07/16/2024 Calcaneal spur, left 07/16/2024 024 Calculus of ureterovesical junction (UVJ) 07/16/2024 07/16/2024 Callus of foot 07/16/2024 07/16/2024 Cardiac murmur 07/16/2024 07/16/2024 CHF (congestive heart failure) 07/16/2024 07/16/2024 Morbid obesity with body mas s index (BMI) of 40.0 to 49.9 07/16/2024 07/16/2024 Close exposure to COVID-19 virus 07/16/2024 07/16/2024 Cough 07/16/2024 07/16/2024 COVID-19 07/16/2024 07/16/2024 Dizziness 07/16/2024 07/16/2024 Diastolic dysfunction 07/16/20242023 Dropfoot 07/16/2024 07/16/2024 Dysuria 07/16/2024 07/16/2024 Edema 07/16/2024 07/16/2024 Environmental and seasonal allergies 07/16/2024 07/16/2024 Facial paresthesia 07/16/2024 Fall 07/16/2024 07/16/2024 Falling 07/16/2024 07/16/2024 GERD with esophagitis 07/16/20242023 Hyperparathyroidism 07/16/2024 07/16/20 24 Hypertensive heart disease 07/16/2024 1 Injury of knee, left 07/16/2024 024 Insomnia 07/16/2024 07/16/2024 Overview (07/16/2024): Will start amitriptyline 50 mg at at bedtime. Patient asked about whether or not this medication would help with her postmenopausal vasomotor symptomatology. Looking at the literature this is not included is a medication that has significant support however it may be of some benefit and I told her this. EKG was last done in July, and I reviewed this, and was normal. Iron deficiency anemia due t o chronic blood loss 07/16/2024 07/16/2024 Keratosis 07/16/2024 07/16/2024 Left ankle instability 07/16/202407/16 Left leg weakness 07/16/2024 07/16/2024 Lesion of nose 07/16/2024 07/16/2024 Migraine 07/16/2024 07/16/2024 Pain of left calf 07/16/2024 07/16/2024 Left leg DVT 07/16/2024 07/16/2024 Pneumonia 07/16/2024 07/16/2024 Post menopausal problems 07/16/202411/2023 Overview (07/16/2024): Did not want to add a lot more medications. She states she will try and see what the amitriptyline does if it helps with her sleep and possibly with her postmenopausal symptoms. However if not we can consider SSRIs, complementary therapies could be another option. Sinusitis 07/16/2024 07/16/2024 SOB (shortness of breath) 07/16/2024 Supratherapeutic INR 07/16/2024 024 Thrombophilia 07/16/2024 07/16/2024 Acute CVA (cerebrovascular accident) 07/16/2024 07/16/2024 Tylenol ingestion 07/16/2024 07/16/2024 Uncontrolled pain 07/16/2024 07/16/2024 Unsteady gait 07/16/2024 07/16/2024 UTI (urinary tract infection) 07/16/2024 07/16/2024 Vasomotor symptoms due to menopause 07/16/2024 07/16/2024 Yeast infection of the skin 07/16/2024 07/16/2024 Fibromyalgia 11/08/2019 07/16/2024 Antiphospholipid antibody syndrome 10/28/2018 07/16/2024 Anti-cardiolipin antibody positive 07/25/2018 07/16/2024 Myalgia 06/27/2018 07/16/2024 Raynaud disease 06/27/2018 07/16/2024 Postmenopausal atrophic vaginitis 11/23/2016 07/16/2024 Urinary incontinence, mixed 11/23/2016 07/16/2024 Urinary dribbling 09/28/2016 07/16/2024 Retrocalcaneal bursitis (back of heel), right 04/28/20 16 07/16/2024 DVT (deep venous thrombosis) 04/04/2016 07/16/2024 Soft tissue infection 03/01/20162023 Surgical wound infection 03/01/201611/2023 Suspected soft tissue infection 02/15/2016 07/16/2024 Essential hypertension 11/03/201507/16 Anxiety 08/18/2015 07/16/2024 Lumbosacral neuritis 04/28/2015 024 Lumbar nerve root impingement 06/30/2014 07/16/2024 Sciatica 07/14/2013 07/16/2024 Back pain 06/25/2013 07/16/2024 Gastro-esophageal reflux dis ease without esophagitis 06/25/2013 07/16/2024 Encounters Date Type Department Care Team Description 02/16/2025 [facility] [address] [place] [address] Valentin Daniel MD Left foot drop (Primary Dx); Mechanical problems with limbs; Polyneuropathy 02/05/2025 [facility] [address] [place] [address] Valentin Daniel MD Polyneuropathy (Primary Dx); Foot drop, left foot 01/15/2025 Refill [facility] [address] [place] [address] Angela Todd APRN from Last 3 Months Immunizations Immunization Administration Dates Next Due Influenza, Unspecified 08/01/2016,2014,07/28/2014,2012,07/30/2012,08/04/2011 Influenza, injectable, MDCK, preservative free, quadrivalent 07/07/2021 Influenza, injectable, quadr ivalent, preservative free 08/06/2023,08/10/2022 Influenza, seasonal, injectable 07/15/2018 PPD Skin Test (TB Skin Test) 2014,03/19/20 12 Pneumococcal Conjugate PCV 13 07/29/2019 Tdap 06/20/2011 Zoster, Recombinant 01/16/2022,07/27/2021 Family History Medical History Relation Name Comments Stroke Brother Conversions - Other Daughter Other Sp ecified Family Circumstances Lupus Father's Sister Diabetes Other 1 Hyperlipidemia Other 2 Hypertension Other 3 Relation Name Status Comments Brother Daughter Father's Sister Other 1 Other 2 Other 3 Social History Tobacco Use Types Packs/Day Years [...] on file Sexual Orientation Not on file Last Filed Vital Signs Vital Sign Reading Time Taken Comments Blood Pressure 130/83 07/16/2024 2:03 PM EDT Pulse 65 07/16/2024 2:03 PM EDT Temperature 36.8 C (98.2 F) 07/16/2024 2:03 PM EDT Respiratory Rate 16 02/14/2024 1:39 PM EDT Oxygen Saturation 98% 07/16/2024 2:03 PM EDT Inhaled Oxygen Concentration - - Weight 85.1 kg (187 lb 9.8 oz) 07/16/2024 2:03 P M EDT Height 160 cm (5' 3 ) 07/16/2024 2:03 PM EDT Body Mass Index 33.23 07/16/2024 2:03 PM EDT Plan of Treatment Upcoming Encounters Date Type Department Care Team (Late st Contact Info) Description 05/06/2025 1:20 PM EDT Office Visit [facility] [address] [place] [address] Angela Todd APRN [address] [place] [address] 10/30/2025 8:00 AM EST Consult [facility] [address] [place] [address] Sim Tillman MD [address] [place] [address] Health Maintenance Due Date Last Done Comments Dental Oral Exam 1971 Dental Prophylaxis 1971 Dental X-Ray: Bitewings 1971 Dental X-Ray: Full Mouth 1971 [facility]-HIV Screening 1971 [facility]-Hepatitis C Screening 1971 [facility]-/Child/Adol SDOH Screenings 1971 [facility]- SDOH Screenings 1989 [facility]-Adult SDOH Screenings 1989 [facility]-Hepatitis B Vaccines (1 of 3 - 19+ 3-dose series) 1990 CT Colonography 02/25/2016 Colonoscopy 02/25/2016 FIT-DNA 02/25/2016 FIT 02/25/2016 FOBT 02/25/2016 Sigmoidoscopy 02/25/2016 [facility]-Colorectal Cancer Screening 02/25/2016 [facility]-Breast Cancer Screening 2021 [facility]-Pneumococcal Vaccine: 50+ Years (2 of 2 - PPSV23) 2021 07/29/2019 [facility]-DTaP,Tdap,and Td Vaccines (2 - Td or Tdap) 06/20/2021 06/20/2011 [id number] Vaccine (4 - season) 2024 07/14/2021, 11/17/2020, 10/28/2020 [facility]-Depression Screening 07/16/2025 07/16/2024, 01/13 [facility]-Zoster Vaccines Completed 01/16/2022, [facility]-Obesity Intervention Completed 024, 02/14/2024, 02/13/2023 [facility]-Influenza Vaccine Completed 08/25/2024 , 08/06/2023, 08/10/2022, Additional history exists HPV Vaccines Aged Out No longer eligi ble based on patient's age to complete this topic [facility]-HIB Vaccines Aged Out No longer e ligible based on patient's age to complete this topic [facility]-Hepatitis A Vaccines Aged Out No longer eligible based on patient's age to complete this topic [facility]-IPV Vaccines Aged Out No longer e ligible based on patient's age to complete this topic [facility]-Rotavirus Vaccines Aged Out No lo nger eligible based on patient's age to complete this topic Additional Health Concerns Infection Onset Date Last Indicated MRSA 04/20/2021 04/20/2021 Insurance [employer] Care Teams Sharepoint Designer Developer Relationship Specialty Start Date End Date Valentin Daniel MD PCP - General 09/18/22
--- NOTE | 2025-03-25 07:50 | XR_ITS ---
FINAL REPORT CLINICAL HISTORY: left fifth met fracture healing COMPARISON: 03/17/2025 FINDINGS: LEFT FOOT Three views of the left foot demonstrate a well corticated ossific density adjacent to the base of the 5th metatarsal. There is no evidence of bony union. Findings are probably related to ununited fracture fragment, unchanged in appearance from the prior exam. There is a small plantar spur. The visualized joint spaces are normally aligned. The soft tissues are unremarkable. IMPRESSION: Stable appearance of ununited fracture fragment 5th metatarsal. Reviewed, Interpreted and Dictated by David Bee MD Transcribed by Aruna Bazzi Authenticated and [facility]
[2025-03-25 11:02] LABS: PHA INR Fingerstick 2.7 (0.9-1.1)
== END 2025-03-25 11:16 ==
LOC: RAD 07:25
PROVIDERS: PCP Family Medicine; Visit Provider Podiatrist
DX: S92.352K Displaced fracture of fifth metatarsal bone, left foot, subsequent encounter for fracture with nonunion (principal); G45.9 Transient cerebral ischemic attack, unspecified
CPT/HCPCS: 73630; 85610; 99211; G0463

== ENCOUNTER 2025-04-02 14:57 | Outpatient (RCR) | payer OTHER, SELFPAY ==
--- NOTE | 2025-04-03 10:31 | HMH.PTOPEV ---
PT Outpatient Evaluation Rehab PT Outpatient Evaluation Start: 04/02/25 15:05 Freq: Status: Active Protocol: Document 04/02/25 15:05 AYO (Rec: 04/03/25 08:19 AYO [id number]) E-signed By Juana Ferraro, PT Outpatient Therapy Subjective History Subjective History This is an initial PT evaluation for 55 y/o female, Kassi White, who presents with PT referral for falls and LLE weakness. Pt with hx of stroke and LB surgeries that left her with LLE weakness. Pt with foot drop and impaired LLE sensation. Pt reports she has had LE weakness since 2011 but has not had issues with bearing weight and LE buckling until about a year ago. Pt reports progressive LLE weakness. Pt reports frequent falls (at least 6 in past 2 months). Pt reports mechanism of falling is balance issues when ambulating, stepping over objects, or just when standing on uneven surface on LLE. Pt reports she loves to walk but with difficulty navigating uneven surfaces. Pt reports she falls often in the grass. Pt?s goal is to be steadier on her LLE. PMH: stroke, back surgeries, lupus, TIA, antiphospholipid syndrome. Chief Complaint Gives out/Unstable,Weakness Symptoms Aggravated Standing,Physical Activity,Walking By Symptom Description Constant and Continuous Hip/Knee Eval Gait Observation General Gait Pattern Wide Based Gait Observation Assistive Device Assistive Devices None / NA MMT left Hip Flexion Strength 2+ Poor+ Grade Hip Abduction 3 Fair Strength Grade Hip Adduction 3 Fair Strength Grade Hip Extension 3 Fair Strength Grade Knee Extension 3 Fair Strength Grade Knee Flexion 3 Fair Strength Grade Sensation LE Dermatome Level L2,L5,S1 Comment Diminished to light touch Balance Eval Hx of Falls Hx Falls Yes Timed Up and Go Test 1. Is the Timed Up no and Go test result > or = to 12 seconds? 3. Is the Timed Up yes and Go Test result < 12 seconds? [place] Feet Together/Eyes pass open/Stable Surface Feet Together/Eyes pass Closed/Stable Surface Feet Together/Eyes pass open/Unstable Surface Feet Together/Eyes fail Closed/Unstable Surface Dynamic Gait Index Test Protocol Gait Level Surface Mild Impairment Query Text: Instructions: Walk at your normal speed from here to the next stacia (20'). Grading: Stacia the lowest category that applies. Change in Gait Speed Mild Impairment Query Text: Instructions: Begin walking at your normal pace (for 5') , when I tell you go , walk as fast as you can (for 5'). When I tell you slow , walk as slowly as you can ( for 5'). Grading: Stacia the lowest category that applies. Gait with Horizontal Mild Impairment Head Turns Query Text: Instructions: Begin walking at your normal pace. When I tell you to look right , keep walking straight, but turn you head to the right. Keep looking to the right unit I tell you look left , then keep walking straight and turn your head to the left. Keep your head to the left until I tell you look straight , then keep walking straight, but return you head to the center. Grading: Stacia the lowest category that applies. Gait with Vertical Moderate Impairment Head Turns Query Text: Instructions: Begin walking at your normal pace. When I tell you to look up , keep walking staight, but tip your head up. Keep looking up until I tell you to look down , then keep walking straight and tip your head down. Keep your head down until I tell you look straight , then keep walking straight, but return your head to the center. Grading: Stacia the lowest category that applies. Gait and Pivot Turn Mild Impairment Query Text: Instructions: Begin walking at your normal pace. When I tell you turn and stop , turn as quickly as you can to face the opposite direction and stop. Grading: Stacia the lowest category that applies. Step Over Obstacle Mild Impairment Query Text: Instructions: Begin walking at your normal speed. When you come to the shoebox, step over it, not around it and keep walking. Grading: Stacia the lowest category that applies. Step Around Mild Impairment Obstacles Query Text: Instructions: Begin walking at normal speed. When you come to the first cone (about 6' away) , walk around the right side of it. When you come to the second cone (6' past first cone), walk around it to the left. Grading: Stacia the lowest category that applies. Steps Moderate Impairment Query Text: Instructions: Walk up these stairs as you would at home. At the top, turn around and walk down . Grading: Stacia the lowest category that applies. Scoring Dynamic Gait Index 14 Score Lower Extremity Functional Index Activities Today, do you or would you have any difficulty at all with: a.Any of your usual A little bit of difficulty work, housework or school activities b. Your usual Moderate difficulty hobbies, recreational or sporting activities c. Getting into or A little bit of difficulty out of the bath d. Walking between A little bit of difficulty rooms e. Putting on your No difficulty shoes or socks f. Squatting No difficulty g. Lifting an object No difficulty , like a bag of groceries from the floor h. Performing light No difficulty activities around your home i. Performing heavy A little bit of difficulty activities around your home j. Getting into or No difficulty out of a car k. Walking 2 blocks Quite a bit of difficulty l. Walking a mile Quite a bit of difficulty m. Going up or down Moderate difficulty 10 stairs (about 1 flight of stairs) n. Standing for 1 No difficulty hour o. Sitting for 1 No difficulty hour p. Running on even Extreme difficulty or unable to perform activity ground q. Running on uneven Extreme difficulty or unable to perform activity ground r. Making sharp Extreme difficulty or unable to perform activity turns while running fast s. Hopping Extreme difficulty or unable to perform activity t. Rolling over in No difficulty bed LEFI Score Lower Extremity 50 Functional Index Score Miscellaneous Dx PT Eval Objective Objective TU seconds DGI: 14 (high fall risk) Miscellaneous Goals Short Term Goals In 4 weeks, pt will: 1) Improve LEFS to 55/80 to improve LE functioning. 2) Step over 6 floor object when walking without LOB 5 /6 trials to improve DGI score by 1 point. 3) Ambulate 10' on uneven surface without LOB 3/4 trials 4) Stand tandem stance for 20 seconds bilaterally without UE use 5) Verbalize IND with HEP 6) Report feeling at least 40% improved since IE 7) Improve LLE hip flexion strength to 3+/5 [facility] Goals In 8 weeks, pt will: 1) Improve LEFS to 60/80 to improve LE functioning. 2) Improve DGI to score of 18 to improve safety with ambulation. 3) Improve LLE strength to at least 4/5 globally ( except DF) 4) Stand tandem stance on uneven surface for 20 seconds bilaterally without UE use 5) Verbalize IND with HEP 6) Report feeling at least 80% improved since IE Outpatient Therapy Assessment Impairments Problems/ Impaired Strength,Impaired Transfers,Impaired Gait Impairmments Pattern,Impaired Walking,Impaired Standing,Impaired Stepping on Uneven Surface,Impaired Recreational Activities,Impaired Balance,Impaired DGI Score Prognosis Rehab Potential Good Comment Pt presents with LLE weakness, impaired gait, and impaired balance. Pt with multiple LOB during session when weight was placed onto LLE during functional gait assessment and balance tests. Pt would benefit from skilled OP PT to address deficits and improve safety. Clinical Impression Consistent with Yes Diagnosis Outpatient Therapy Plan of Care Treatment Plan May Include Therapeutic Exercise Yes Including Home Exercise Program Manual Therapy Yes Techniques Neuromuscular Re- Yes education Therapeutic Yes Activities to Return to Previous Functional/Work Level Gait Training Yes ADL/Self Care Yes Education Eval/Re-Eval Yes Aquatic Therapy Yes Frequency Times per week 2-3 times Duration Number of Weeks 8-10 weeks Addendums This patient is a No candidate for social or vocational rehab ? Patient/Guardian Yes verbally acknowledges understanding of treatment program and consents to further treatment? Patient/Guardian Yes verbally acknowledges understanding of diagnosis, prognosis and goals for treatment? Eval Complexity PT Charges 47330 - Moderate Complexity Shoulder/Elbow Eval Shoulder Objective Measurements Elbow Objective Measurements PHYSICIAN CERTIFICATION: I certify the specified therapy services for Kassi Claudio are required, authorized, and reviewed every 30 days.
== END 2025-04-02 23:59 | disposition home or self-care (01) ==
LOC: PT 14:57
PROVIDERS: PCP Family Medicine; Visit Provider Family Medicine
DX: R29.898 Other symptoms and signs involving the musculoskeletal system (principal); R29.6 Repeated falls
CPT/HCPCS: 97110; 97162

== ENCOUNTER 2025-04-03 08:35 | Day surgery (SDC) | payer OTHER, SELFPAY ==
[2025-04-03 08:40] VITALS: BP 128/71; PULSE 64; RESP 16; TEMP 36.6; O2SAT 100; BMI 31.8
--- NOTE | 2025-04-03 08:42 | EXP.PM.HP ---
History of Present Illness *Admission Date: 04/03/25 *Reason for visit:: Trigger points; myofascial pain *History of present illness: Same [facility] Disclaimer: The information contained in this section may have been updated after the patient was seen, as this information can be updated by other users. Medical History Upper back pain Epidermal inclusion cyst vulva Chronic anticoagulation Calculus of ureterovesical junction (UVJ) Facial paresthesia Morbid obesity with body mass index (BMI) of 40.0 to 49.9 TIA (transient ischemic attack) Acute CVA (cerebrovascular accident) Left leg DVT Vasomotor symptoms due to menopause Stroke Lupus Asthma History of gastroesophageal reflux (GERD) Hypertension Dizziness Edema History of TIA (transient ischemic attack) History of DVT (deep vein thrombosis) Surgical History H/O gastric bypass History of hysterectomy History of section History of appendectomy History of cholecystectomy Family History Other Coronary artery disease Diabetes Social History Smoking Status: Never smoker second hand exposure: No alcohol intake: never substance use type: denies use current occupational status: other Travel in the last 8 weeks?: None household members: spouse housing: house caffeine: Yes Have you lived/traveled outside US in past 30 days?: No Contact w/someone who lives/traveled outside US past 30 days?: No Exposure to someone with infectious disease in past 14 days?: No Do you have a fever (greater than 100.4 F or 38 C)?: No Have you tested positive for COVID-19?: No Exposed to someone with COVID-19 in past 14 days?: No Do you have a sore throat?: No Do you have a cough?: No Do you have any weakness?: No Do you have any diarrhea?: No Are you experiencing any unusual bleeding?: No Do you have any muscle aches/pain?: No Do you have any abdominal pain?: No Are you experiencing loss of taste or smell?: No Other Medical History Have you received the Flu Vaccine for this season: Yes Have you received the Pneumonia Vaccine: Yes Review of Systems Review of Systems Review of systems:: pertinent systems reviewed and negative unless documented below Review of systems (narrative): Review of Systems: General: No recent weight changes, no fever, no sleep disturbances Respiratory: No cough, no shortness of air, no recurring pulmonary infections Cardiovascular/peripheral vascular: No chest pain, no palpitations, no edema, no shortness of breath Gastrointestinal: No new onset incontinence, normal bowel movements reported Genitourinary: No new onset incontinence Musculoskeletal: Left shoulder pain, muscle pain Psychiatric: [Normal mood/affect] Neurological: [Denies weakness in extremities], [denies balance issues] Meds Home Medications and Allergies Home Medications ?Medication ?Instructions ?Recorded ?Confirmed ?Type cyanocobalamin (vitamin B-12) 1,000 mcg SQ WEEKLY 01/01/24 03/17/25 History 1,000 mcg/mL injection solution hydroxychloroquine 200 mg tablet 200 mg PO BID 06/30/24 03/17/25 History ondansetron 4 mg disintegrating 4 mg PO BID PRN nausea and vomiting 10/16/24 03/17/25 History tablet albuterol sulfate 90 mcg/actuation 2 puff inhalation QID PRN 11/10/24 03/17/25 Rx aerosol inhaler shortness of breath or wheezing #8.5 grams aspirin 81 mg tablet,delayed 162 mg PO DAILY 11/10/24 03/17/25 History release dapagliflozin propanediol 10 mg 10 mg PO DAILY #90 tabs 11/10/24 03/17/25 Rx tablet (Farxiga) alendronate 10 mg tablet 10 mg PO DAILY 90 days #90 tabs 11/26/24 03/17/25 Rx warfarin 5 mg tablet 5 mg PO SUTUTHSA 12/22/24 03/17/25 History desvenlafaxine succinate 50 mg 50 mg PO DAILY #90 tabs 12/29/24 03/17/25 Rx tablet,extended release 24 hr (Pristiq) estradiol 0.01% (0.1 mg/gram) 1 appful vaginal DAILY 30 days 01/26/25 03/17/25 Rx vaginal cream (Estrace) #42.5 grams fezolinetant 45 mg tablet (Veozah) 45 mg PO DAILY #30 tabs 02/02/25 03/17/25 Rx furosemide 20 mg tablet 20 mg PO DAILY 02/16/25 03/17/25 History omeprazole 20 mg capsule,delayed 20 mg PO DAILY 02/16/25 03/17/25 History release trazodone 100 mg tablet 100 mg PO DAILY PRN sleep #90 tabs 03/02/25 03/17/25 Rx methylprednisolone 4 mg tablets in See Rx Instructions PO PER PKG DIR 03/13/25 03/17/25 Rx a dose pack #21 tabs baclofen 10 mg tablet 10 mg PO TID #90 tabs 03/16/25 03/17/25 Rx hydrocodone 10 mg-acetaminophen 1 tab PO 5XDAY #150 tabs 03/16/25 03/17/25 Rx 325 mg tablet pregabalin 100 mg capsule 100 mg PO QID #120 caps 03/16/25 03/17/25 Rx promethazine 25 mg tablet 25 mg PO Q6H PRN nausea and 03/30/25 Rx vomiting #60 tabs New Prescriptions to Start Prescriptions: Allergies Allergy/AdvReac Type Severity Reaction Status Date / Time gum mastic (From MASTISOL Allergy Unknown Unknown Verified 03/17/25 08:32 ADHESIVE) allergy reaction measles, mumps, and rubella Allergy Unknown Unknown Verified 03/17/25 08:32 vaccine (MEASLES, MUMPS, AND allergy RUBELLA VACCINE) reaction methyl salicylate (From Allergy Unknown Unknown Verified 03/17/25 08:32 MASTISOL ADHESIVE) allergy reaction Penicillins (PENICILLINS) Allergy Unknown Hives Verified 03/17/25 08:32 storax (From MASTISOL Allergy Unknown Unknown Verified 03/17/25 08:32 ADHESIVE) allergy reaction Sulfa (Sulfonamide Allergy Unknown Hives Verified 03/17/25 08:32 Antibiotics) (SULFA (SULFONAMIDE ANTIBIOTICS)) sumatriptan (From IMITREX) Allergy Unknown Anaphylaxis Verified 03/17/25 08:32 sulfamethoxazole (From Allergy Unknown Verified 03/17/25 08:32 Bactrim) allergy reaction trimethoprim (From Bactrim) Allergy Unknown Verified 03/17/25 08:32 allergy reaction adhesive AdvReac Mild Rash Verified 03/17/25 08:32 Exam Constitutional Constitutional: no acute distress *Routine HEENT Exam Head: Present normocephalic and atraumatic Eye: Present PERRL ENT: Present mucous membranes moist *Routine Neck Exam Neck: Present supple *Routine Respiratory Exam Respiratory: Present CTA bilaterally *Routine Cardiovascular Exam Cardiovascular: Present RRR *Routine Abdominal Exam Abdominal: Present soft *Routine Rectal Exam Rectal:: deferred *Routine Genitalia Exam Genitalia:: deferred Routine Back/Spine/Pelvis Exam Back/Spine: Present pain with flexion *Routine Skin Exam Skin: Present intact, dry and warm *Routine Neurological Exam Neurological: Present alert and oriented X3 Routine Psychiatric Exam Psychiatric: Present normal affect and normal thought process Assessment and Plan *Assessment and plan (1) Myofascial pain on left side: Status: Acute Category: Medical Code(s): M79.18 - Myalgia, other site (2) Upper back pain: Status: Acute Category: Medical Code(s): M54.9 - Dorsalgia, unspecified Plan Patient has been instructed to contact the clinic with any concerns before the next appointment. Dr. Venegas has reviewed this note and agrees with this plan of care. This note was dictated using voice recognition software and make contain errors or omissions. All injections are used with Lidocaine, Bupivacaine and dexamethasone. Occasionally urine drug screen is needed to verify patient's compliance with our office pain contract. This is ordered based off specific treatments related to chronic pain with the potential to abuse certain medications.
--- NOTE | 2025-04-03 08:44 | EXP.PAIN.PRO ---
Procedure Date: 04/03/25 Time: 08:58 Anesthesiologist:: Zoë Billingsley APRN Complications:: None Pre-procedure Diagnosis:: Myofascial pain, upper back/shoulder pain, degenerative disc disease of lumbar spine with lumbar radiculopathy symptoms Post-procedure Diagnosis:: Same Indications for Procedure:: Patient is a pleasant 55-year-old female who presents today for trigger point injections of her left trapezius and rhomboid muscles. Today she rates her pain a 6 out of 10. She denies any new trauma or injury. She does state that she still continues to have severe pain in and around her left shoulder to mid back. Patient states the only real improvement she gets is when she lies flat with pressure against this location. Patient is currently managed with [place] 10 mg 4 times a day, pregabalin 100 mg 3 times a day baclofen 10 mg 4 times a day and compounded cream. She denies any side effects. Her Loi has been reviewed and is appropriate. Physical Exam: General: Alert and oriented x3, no acute distress, pleasant and cooperative Lungs: Respirations even and unlabored, symmetrical chest expansion Eyes: PERRL Musculoskeletal: Flexion and extension of cervical [spine] somewhat guarded secondary to pain, [antalgic gait noted] Neurological: Speech clear, no gross sensory deficit Procedure Details:: Patient did have noninvasive blood pressure cuff applied and pulse oximeter. Patient was placed in a sitting position and palpated along her left trapezius and rhomboid and thoracic latissimus muscles. Areas of point tenderness were marked and using a sterile 25-gauge needle approximately 10 mL of 0.25% bupivacaine, 1% lidocaine and 10 mg dexamethasone were incrementally injected into her left trapezius and rhomboid and thoracic latissimus muscles. Needle was removed and sterile bandages applied. Patient tolerated the procedure well with no complications and was discharged neurologically intact. Plan and Disposition:: Patient tolerated the procedure well with no complications and was discharged neurologically intact. Patient will return to clinic in 2 weeks for reevaluation of symptoms and plan of care. Patient has been instructed to contact the clinic with any concerns before the next appointment. Dr. Venegas has reviewed this note and agrees with this plan of care. This note was dictated using voice recognition software and make contain errors or omissions. All injections are used with Lidocaine, Bupivacaine and dexamethasone. Occasionally urine drug screen is needed to verify patient's compliance with our office pain contract. This is ordered based off specific treatments related to chronic pain with the potential to abuse certain medications.
[2025-04-03 08:49] VITALS: BP 115/78; PULSE 61; RESP 18; O2SAT 99
[2025-04-03] MEDS: BUPIVACAINE 0.25% 10ML INJ 25 MG IJ (08:51)
[2025-04-03] MEDS: DEXAMETHASONE 10MG/ML 1ML VIAL 10 MG (08:51)
[2025-04-03] MEDS: LIDOCAINE 1% 5ML PF VIAL 5 ML (08:51)
[2025-04-03 08:59] VITALS: BP 140/72; PULSE 59; RESP 18; O2SAT 99
== END 2025-04-03 08:59 | disposition home or self-care (01) ==
PROVIDERS: PCP Family Medicine; Visit Provider Nurse Practitioner Family
DX: M51.16 Intervertebral disc disorders with radiculopathy, lumbar region (principal); M79.18 Myalgia, other site; M54.89 Other dorsalgia; M25.519 Pain in unspecified shoulder; J45.909 Unspecified asthma, uncomplicated; Z86.73 Personal history of transient ischemic attack (TIA), and cerebral infarction without residual deficits; I10 Essential (primary) hypertension; E66.01 Morbid (severe) obesity due to excess calories; Z68.31 Body mass index [BMI] 31.0-31.9, adult; Z88.0 Allergy status to penicillin; Z88.2 Allergy status to sulfonamides; Z88.8 Allergy status to other drugs, medicaments and biological substances; Z79.899 Other long term (current) drug therapy
CPT/HCPCS: 20553; J0665; J1100; J2003

== ENCOUNTER 2025-04-05 10:09 | Emergency (ER) | payer OTHER, SELFPAY ==
--- NOTE | 2025-04-05 10:16 | HMH.EDGENADL ---
Discharge Plan Disposition Patient Disposition: Home, Self-Care Condition: Good Prescriptions Prescriptions: New oxycodone 5 mg tablet 5 mg PO Q8H PRN (Reason: pain) Qty: 10 0RF No Action aspirin 81 mg tablet,delayed release (DR/EC) 162 mg PO DAILY estradiol [Estrace] 0.01 % (0.1 mg/gram) cream 1 appful vaginal DAILY 30 Days Qty: 42.5 2RF Rx Instructions: Daily x 2 weeks and 3 x weekly thereafter methylprednisolone 4 mg tablets,dose pack See Rx Instructions PO PER PKG DIR Qty: 21 0RF Rx Instructions: PO PER PKG DIR cyanocobalamin (vitamin B-12) 1,000 mcg/mL solution 1,000 mcg SQ WEEKLY Patient Comments: INJECT 1 ML SUBCUTANEOUSLY ONCE A WEEK ondansetron 4 mg tablet,disintegrating 4 mg PO BID PRN (Reason: nausea and vomiting) Patient Comments: TAKE 1 TABLET BY MOUTH TWICE A DAY NEEDED dapagliflozin propanediol [Farxiga] 10 mg tablet 10 mg PO DAILY Qty: 90 3RF omeprazole 20 mg capsule,delayed release(DR/EC) 20 mg PO DAILY furosemide 20 mg tablet 20 mg PO DAILY Patient Comments: TAKE ONE TABLET BY MOUTH ONCE A DAY trazodone 100 mg tablet 100 mg PO DAILY PRN (Reason: sleep) Qty: 90 3RF albuterol sulfate 90 mcg/actuation HFA aerosol inhaler 2 puff inhalation QID PRN (Reason: shortness of breath or wheezing) Qty: 8.5 10RF alendronate 10 mg tablet 10 mg PO DAILY 90 Days Qty: 90 2RF desvenlafaxine succinate [Pristiq] 50 mg tablet extended release 24 hr 50 mg PO DAILY Qty: 90 3RF Veozah 45 mg tablet 45 mg PO DAILY Qty: 30 1RF promethazine 25 mg tablet 25 mg PO Q6H PRN (Reason: nausea and vomiting) Qty: 60 1RF hydroxychloroquine 200 mg tablet 200 mg PO BID warfarin 5 mg tablet 5 mg PO SUTUTHSA hydrocodone-acetaminophen 10-325 mg tablet 1 tab PO 5XDAY Qty: 150 0RF baclofen 10 mg tablet 10 mg PO TID Qty: 90 0RF pregabalin 100 mg capsule 100 mg PO QID Qty: 120 0RF Referrals Follow up/Referrals: German Billingsley DO [Staff Physician, Orthopedics] - See instructions Valentin Daniel MD [Primary Care Provider, Family Practice] - See instructions Activity Restrictions/Add. Instructions Additional Instructions/Restrictions: Do not bear weight on your left foot. If splint gets wet return to the emergency department. Return to the emergency department if you lose all feeling or you have severe pain of your left foot. Call Dr. Billingsley's office on Sunday to schedule an appointment as soon as possible. Have INR checked tomorrow and hold dose of Coumadin as you are INR is supratherapeutic. Clinical Impressions Clinical Impression: Ankle fracture Print Language Print Language: Cymraes Discharge ED Provider: Emilia Underwood General Adult HPI General Chief complaint: Extremity Injury, Lower Stated complaint: AO 04/05/25. L ankle pain Time Seen by Provider: 04/05/25 10:16 History of Present Illness HPI narrative: Patient is a 55-year-old with past medical history significant for antiphospholipid syndrome lupus on Coumadin history of multiple blood clots with prior CVA with residual left foot drop and decreased sensation of the left foot presents to the emergency department after a fall. Patient was doing yard work outside when she's took a step off 1 step and her left ankle twisted. Did not hit head did not lose consciousness. Patient is complaining of severe left ankle pain. Related Data Home Medications ?Medication ?Instructions ?Recorded ?Confirmed cyanocobalamin (vitamin B-12) 1,000 mcg SQ WEEKLY 01/01/24 04/03/25 1,000 mcg/mL injection solution hydroxychloroquine 200 mg tablet 200 mg PO BID 06/30/24 04/03/25 ondansetron 4 mg disintegrating 4 mg PO BID PRN nausea and vomiting 10/16/24 04/03/25 tablet aspirin 81 mg tablet,delayed 162 mg PO DAILY 11/10/24 04/03/25 release warfarin 5 mg tablet 5 mg PO SUTUTHSA 12/22/24 04/03/25 furosemide 20 mg tablet 20 mg PO DAILY 02/16/25 04/03/25 omeprazole 20 mg capsule,delayed 20 mg PO DAILY 02/16/25 04/03/25 release Previous Rx's ?Medication ?Instructions ?Recorded albuterol sulfate 90 mcg/actuation 2 puff inhalation QID PRN 11/10/24 aerosol inhaler shortness of breath or wheezing #8.5 grams dapagliflozin propanediol 10 mg 10 mg PO DAILY #90 tabs 11/10/24 tablet (Farxiga) alendronate 10 mg tablet 10 mg PO DAILY 90 days #90 tabs 11/26/24 desvenlafaxine succinate 50 mg 50 mg PO DAILY #90 tabs 12/29/24 tablet,extended release 24 hr (Pristiq) estradiol 0.01% (0.1 mg/gram) 1 appful vaginal DAILY 30 days 01/26/25 vaginal cream (Estrace) #42.5 grams fezolinetant 45 mg tablet (Veozah) 45 mg PO DAILY #30 tabs 02/02/25 trazodone 100 mg tablet 100 mg PO DAILY PRN sleep #90 tabs 03/02/25 methylprednisolone 4 mg tablets in See Rx Instructions PO PER PKG DIR 03/13/25 a dose pack #21 tabs baclofen 10 mg tablet 10 mg PO TID #90 tabs 03/16/25 hydrocodone 10 mg-acetaminophen 1 tab PO 5XDAY #150 tabs 03/16/25 325 mg tablet pregabalin 100 mg capsule 100 mg PO QID #120 caps 03/16/25 promethazine 25 mg tablet 25 mg PO Q6H PRN nausea and 03/30/25 vomiting #60 tabs oxycodone 5 mg tablet 5 mg PO Q8H PRN pain #10 tabs 04/05/25 Allergies Allergy/AdvReac Type Severity Reaction Status Date / Time gum mastic (From MASTISOL Allergy Unknown Unknown Verified 03/17/25 08:32 ADHESIVE) allergy reaction measles, mumps, and rubella Allergy Unknown Unknown Verified 03/17/25 08:32 vaccine (MEASLES, MUMPS, AND allergy RUBELLA VACCINE) reaction methyl salicylate (From Allergy Unknown Unknown Verified 03/17/25 08:32 MASTISOL ADHESIVE) allergy reaction Penicillins (PENICILLINS) Allergy Unknown Hives Verified 03/17/25 08:32 storax (From MASTISOL Allergy Unknown Unknown Verified 03/17/25 08:32 ADHESIVE) allergy reaction Sulfa (Sulfonamide Allergy Unknown Hives Verified 03/17/25 08:32 Antibiotics) (SULFA (SULFONAMIDE ANTIBIOTICS)) sumatriptan (From IMITREX) Allergy Unknown Anaphylaxis Verified 03/17/25 08:32 sulfamethoxazole (From Allergy Unknown Verified 03/17/25 08:32 Bactrim) allergy reaction trimethoprim (From Bactrim) Allergy Unknown Verified 03/17/25 08:32 allergy reaction adhesive AdvReac Mild Rash Verified 03/17/25 08:32 [facility] Disclaimer: The information contained in this section may have been updated after the patient was seen, as this information can be updated by other users. Medical History Upper back pain Epidermal inclusion cyst vulva Chronic anticoagulation Calculus of ureterovesical junction (UVJ) Facial paresthesia Morbid obesity with body mass index (BMI) of 40.0 to 49.9 TIA (transient ischemic attack) Acute CVA (cerebrovascular accident) Left leg DVT Vasomotor symptoms due to menopause Stroke Lupus Asthma History of gastroesophageal reflux (GERD) Hypertension Dizziness Edema History of TIA (transient ischemic attack) History of DVT (deep vein thrombosis) Surgical History H/O gastric bypass History of hysterectomy History of section History of appendectomy History of cholecystectomy Family History Other Coronary artery disease Diabetes Social History Smoking Status: Never smoker second hand exposure: No alcohol intake: never substance use type: denies use current occupational status: other Travel in the last 8 weeks?: None household members: spouse housing: house caffeine: Yes Have you lived/traveled outside [place] in past 30 days?: No Contact w/someone who lives/traveled outside US past 30 days?: No Exposure to someone with infectious disease in past 14 days?: No Do you have a fever (greater than 100.4 F or 38 C)?: No Have you tested positive for COVID-19?: No Exposed to someone with COVID-19 in past 14 days?: No Do you have a sore throat?: No Do you have a cough?: No Do you have any weakness?: No Do you have any diarrhea?: No Are you experiencing any unusual bleeding?: No Do you have any muscle aches/pain?: No Do you have any abdominal pain?: No Are you experiencing loss of taste or smell?: No Other Medical History Have you received the Flu Vaccine for this season: Yes Have you received the Pneumonia Vaccine: Yes ROS Obtained: Yes All systems reviewed & no additional complaints except as documented Physical Exam General General appearance: alert and in no apparent distress Head Head exam: atraumatic and normocephalic Eye Eye exam: Present PERRL Neck Neck exam: Present normal inspection; Absent tenderness Respiratory Respiratory exam: Present normal lung sounds bilaterally; Absent respiratory distress Cardiovascular Cardiovascular exam: Present regular rate and normal rhythm Abdominal Exam Abdominal exam: Present soft; Absent tenderness Extremities Exam Extremities exam: Present tenderness (Left ankle), joint swelling (Left ankle) and other (Neurovascularly intact distal to left lower extremity injury, injury closed) Back Exam Back exam: Present normal inspection; Absent tenderness Neurological Exam Neurological exam: Present alert and oriented X3; Absent motor sensory deficit Skin Skin exam: Present warm, dry and intact Medical Decision Making Medical Records Screening: Per USPSTF and CDC recommendations, given the prevalence of disease in our region, it is our hospital?s policy to screen for HIV and viral Hepatitis for all patients aged 18 and over and those with ongoing risk factors. Loi Inquiry Pt receiving controlled substance: No Vital Signs: 04/05/25 10:29 04/05/25 10:37 04/05/25 11:07 Temperature 98.5 F 98.5 F Temperature Source Oral Oral Pulse Rate 62 60 Pulse Rate [Right] 62 Respiratory Rate 20 20 18 Blood Pressure 133/78 181/90 H Blood Pressure [Right Arm] 133/78 Blood Pressure Mean 120 Blood Pressure Mean [Right Arm] 96 Blood Pressure Source Automatic Cuff Blood Pressure Source [Right Arm] Automatic Cuff Blood Pressure Position Supine Blood Pressure Position [Right Arm] Supine 02 Sat by Pulse Oximetry 99 99 99 Oxygen Delivery Method Room Air Room Air 04/05/25 12:00 04/05/25 12:34 04/05/25 12:54 Temperature 98.4 F Temperature Source Pulse Rate 64 60 Pulse Rate [Right] Respiratory Rate 18 Blood Pressure 108/66 L 108/66 L Blood Pressure [Right Arm] Blood Pressure Mean Blood Pressure Mean [Right Arm] Blood Pressure Source Blood Pressure Source [Right Arm] Blood Pressure Position Blood Pressure Position [Right Arm] 02 Sat by Pulse Oximetry 94 L 94 L Oxygen Delivery Method Lab Data Lab Results 04/05/25 10:33: WBC 7.8, RBC 4.71, Hgb 13.2, Hct 40.8, MCV 86.6, MCH 28.0, MCHC 32.4, RDW 13.2, Plt Count 371, MPV 10.1, Neut % (Auto) 38.0, Lymph % (Auto) 51.9 H, Wood % (Auto) 6.5, Eos % (Auto) 2.2, Baso % (Auto) 1.3, Neut # (Auto) 3.0, Lymph # (Auto) 4.1, Wood # (Auto) 0.5, Eos # (Auto) 0.2, Baso # (Auto) 0.1, PT 46.5 H, INR 4.70 H, Sodium 139, Potassium 3.7, Chloride 101, Carbon Dioxide 29, Anion Gap 12.7, BUN 9, Creatinine 0.70, Estimated Creat Clear 118, Estimated GFR 87, Est GFR ( Amer) 106, Glucose 89, Calcium 8.8, Total Bilirubin 0.3, AST 57 H, ALT 60, Alkaline Phosphatase 83, Total Protein 7.5, Albumin 4.1, Globulin 3.4 H, Albumin/Globulin Ratio 1.2 04/05/25 10:33 04/05/25 10:33 Orders (Tests/Meds): ED MEDICATIONS Discontinued Medications Generic Name Dose Route Start Last Admin Trade Name Niloq PRN Reason Stop Dose Admin Hydromorphone HCl 1 mg 04/05/25 11:42 04/05/25 11:44 Hydromorphone 2mg/Ml Syringe IV 04/05/25 11:43 1 mg ONCE ONE Administration Morphine Sulfate 8 mg 04/05/25 10:45 04/05/25 10:51 Morphine 8mg/Ml Syringe IV 04/05/25 10:46 8 mg ONCE ONE Administration Ondansetron HCl 4 mg 04/05/25 10:22 04/05/25 10:50 Ondansetron 4mg/2ml Vial IV 04/05/25 10:23 4 mg ONCE ONE Administration ORDERS Category Date Time Status Ankle XR - Left minimum 3 Views [XR ankle LT min 3V] Exams 04/05/25 10:22 Completed Stat Fibula/tibia XR left 2 views [XR tibia fibula LT 2V] Exams 04/05/25 10:22 Completed Stat Foot XR left minimum 3 views [XR foot LT min 3V] Stat Exams 04/05/25 10:22 Completed Knee XR left 3 views [XR knee LT 3V] Stat Exams 04/05/25 10:22 Completed CMP [Comprehensive Metabolic Panel] Stat Lab 04/05/25 10:33 Completed Complete Blood Count Auto Diff Stat Lab 04/05/25 10:33 Completed Prothrombin Time INR Stat Lab 04/05/25 10:33 Completed Medical Decision Narrative: In summary, this 55-year-old female presents to the emergency department today with ankle pain. On initial evaluation patient is hemodynamically stable saturating appropriately on room air afebrile no acute distress. Differential diagnosis includes but is not limited to acute fracture dislocation ligamentous injury hemarthrosis with supratherapeutic INR. Based on these concerns, I ordered CBC CMP PT/INR radiographs left lower extremity from knee tib-fib ankle and foot. Patient received morphine and Dilaudid for treatment. Labs personally reviewed demonstrate supratherapeutic INR XR personally interpreted demonstrates left lateral malleolus fracture I did interactive conversation with Dr. Billingsley on orthopedic surgery with recommendations to place patient in posterior slab splint with nonweightbearing left lower extremity and follow up outpatient. Splint placed per procedure note. Patient given pain control prescription and crutches for follow-up with Dr. Billingsley. Procedures Orthopedic Splinting/Casting Injury #1: Side: left Lower Extremity Injury Location: lower leg Lower Extremity Immobilizer: posterior splint Other Orthopedic Equipment: crutches Post Cast/Splinting Neuro Status: intact Post Cast/Splinting Vasc Status: intact Critical Care Critical Care Time Critical Care Time: No
--- NOTE | 2025-04-05 10:22 | XR_ITS ---
PROCEDURE INFORMATION: Exam: XR Left Ankle Exam date and time: 04/05/2025 10:36 AM Age: 55 years old Clinical indication: Injury or trauma; Fall; Blunt trauma; Ankle; Left; Additional info: Fall, pain TECHNIQUE: Imaging protocol: Radiologic exam of the left ankle. Views: 3 or more views. COMPARISON: CR XR ANKLE LT MIN 3V 12/19/2024 10:35 AM FINDINGS: Bones/joints: Comminuted and minimally displaced fracture lateral malleolus. Soft tissues: Prominent lateral soft tissue edema. IMPRESSION: 1. Comminuted and minimally displaced fracture lateral malleolus. 2. Prominent lateral soft tissue edema.
--- NOTE | 2025-04-05 10:22 | XR_ITS ---
PROCEDURE INFORMATION: Exam: XR Left Tibia and Fibula Exam date and time: 04/05/2025 10:36 AM Age: 55 years old Clinical indication: Injury or trauma; Fall; Blunt trauma; Lower leg; Left; Additional info: Fall, pain TECHNIQUE: Imaging protocol: Radiologic exam of the left tibia and fibula. Views: 2 views. COMPARISON: CR XR FOOT WT BEARING LT 3V 03/25/2025 7:51 AM FINDINGS: Bones/joints: Fracture lateral malleolus again noted. No additional proximal fracture. Soft tissues: Soft tissue edema adjacent to the lateral malleolus. IMPRESSION: Fracture lateral malleolus again noted. No additional proximal fracture.
--- NOTE | 2025-04-05 10:22 | XR_ITS ---
PROCEDURE INFORMATION: Exam: XR Left Foot Exam date and time: 04/05/2025 10:36 AM Age: 55 years old Clinical indication: Injury or trauma; Fall; Blunt trauma; Foot; Left; Additional info: Fall, pain TECHNIQUE: Imaging protocol: Radiologic exam of the left foot. Views: 3 or more views. COMPARISON: CR XR FOOT WT BEARING LT 3V 03/25/2025 7:51 AM FINDINGS: Bones/joints: Fifth metatarsal base fracture again noted, without significant callus formation or interval healing. Punctate calcification stable along the 5th metatarsal head. Soft tissues: Normal. IMPRESSION: Fifth metatarsal base fracture again noted, without significant callus formation or interval healing.
--- NOTE | 2025-04-05 10:22 | XR_ITS ---
PROCEDURE INFORMATION: Exam: XR Left Knee Exam date and time: 04/05/2025 10:36 AM Age: 55 years old Clinical indication: Injury or trauma; Fall; Blunt trauma; Knee; Left; Additional info: Fall, pain TECHNIQUE: Imaging protocol: Radiologic exam of the left knee. Views: 3 views. COMPARISON: CR XR FOOT WT BEARING LT 3V 03/25/2025 7:51 AM FINDINGS: Bones/joints: Normal. Soft tissues: Normal. IMPRESSION: No acute findings.
[2025-04-05 10:29] VITALS: BP 133/78; PULSE 62; RESP 20; TEMP 36.9; O2SAT 99; BMI 31.6
--- OUTSIDE RECORDS SUMMARY | 2025-04-05 10:29 | XMS_ITS | Encounter Summary ---
Author Organization [employer] Address [address] [place] [address] Care Team Providers Care Forging Roll Operator Name Role Phone Unavailable Primary Care Provider Unavailabl e Encounter Details Date Type Department Care Team (Late st Contact Info) Description 06/03/2019 Transcribed Document [facility] [place] [facility] [place] [address] ProviderRikki MD [facility] [place], [place] [id number] Social History Tobacco Use Types Packs/Day Years [...] EDT Height Source Stated Height Entry Format [facility] Height/Length, ITALIAN (ft) 5 ft Height/Length ITALIAN 3 Inch CLINICALHEIGHT 160.02 cm [place] Body Weight 52.02 kg Weight Source, ED Critical estimated dosing weight Weight Entry Format [facility] Weight Bhutanese lb 220 lb CLINICALWEIGHT 100 kg Body [...] Hand pain, wrist pain, fracture, sprain, contusion, CA, head injury, concussion,. Orders Include Previous Orders (Selected) Inpatient Orders Ordered EKG: Completed .Automated Differential: .Urinalysis Microscopic: CBC w/ Auto Diff: CMP Comprehensive Metabolic Panel: CR Hand Min 3 Vws RT: CT Head WO: Cardiac Monitoring: ED Adult Fall Risk Assessment: ED Adult Triage: ED Clinical Reconciliation: ED charcoal unloader: Normal Saline Flush: 10 mL, IV Push, [...] Color Yellow Urine Appearance Clear Urine Specific [place] 1.021 Urine pH Dipstick 7.5 Urine Leukocyte [...] % 30.2 % Lymph # 2.54 x10(3)/uL [place] % 5.2 % [place] # 0.44 K/uL Eos % 3.3 % [...] Fall Scale Risk Level 0-24 Low Risk [place] Fall Interventions Adequate lighting, Bed in low position, Call device within reach, Hourly comfort/safety rounds, Non-Slip footwear, Personal items within reach, Reinforced to call for assistance before getting out of bed, Room free of clutter/spills, Upper side-rails up, Wheels locked, Wires/Cords secured Fall Moderate to High Risk Interventions Patient room close to nurses station Communication Barrier None Primary Language Bhutanese Information Obtained From Patient Smoking Status Refused [...] air Height Source Stated Height Entry Format [facility] Height/Length, ITALIAN (ft) 5 ft Height/Length ITALIAN 3 Inch CLINICALHEIGHT 160.02 cm [place] Body Weight 52.02 kg Weight Source, ED Critical estimated dosing weight Weight Entry Format [facility] Weight [place] lb 220 lb CLINICALWEIGHT 100 kg Body [...] Ambulate Tracking Acuity 3 - Urgent (Modified) Food Prep Worker Needed No Accompanied by Unaccompanied Mode of Arrival Ambulatory 06/03/2019 10:46 EDT Nurse Collect Order Detail 3.00 Nurse Collect Order Detail 3.00 . Radiology results: Radiology Results (Last 48 hours) [id number] -- 06/03/2019 10:45 CR Hand Min 3 [...] Adult, Syncope. Follow up with: ALVARADO STILES (REF)[facility] Within 2 to 3 days Patient states??Dr. [...]
--- OUTSIDE RECORDS SUMMARY | 2025-04-05 10:29 | XMS_ITS | Encounter Summary ---
Author Organization [employer] Address [address] [place] [address] Care Team Providers Care Rigging Up Worker Name Role Phone Unavailable Primary Care Provider Unavailabl e Encounter Details Date Type Department Care Team (Late st Contact Info) Description 06/03/2019 Transcribed Document [facility] [place] [address] [place] [address] ProviderRikki MD [address], [place] [id number] Social History Tobacco Use Types Packs/Day Years [...]
--- OUTSIDE RECORDS SUMMARY | 2025-04-05 10:29 | XMS_ITS | Data Portability ---
Author Organization [facility] SHASHI Rossi MABIE CLOSED Address [address] [facility] [facility] [address] [place] [address] Care Team Providers Care Corporate Real Estate Specialist Name Role Phone SANGEETA BENOIT Primary Care [...] the patient to obtain a disc from [facility] and bring the disc to us. Once we have the disc, I will have Dr. Walker review the imaging and contact the patient. I have scheduled her for a follow-up appointment in 6 weeks as well. [email or web address] Not available 07/02/2024 11:48:35 10/17/2024 10/17/2024 Kassi [...] headaches, consider further evaluation by headache specialist. [email or web address] Not available 10/17/2024 12:21:54 Plan of Treatment Reminders Order Date Submit Date Provider Last Modified By Organization Details Last Modified Time Details Appointments None recorded. Lab None recorded. Referral None recorded. Procedures None recorded. Surgeries None recorded. Imaging None recorded. Medication Orders cyclobenzap rine 10 mg tablet 2023 024 [facility], [address] [place] [address], [id number], 11:01:23 Patient TargetsNo targets recorded. Patient InstructionsNo instructions recorded. Reason for Referral None Reported. Results Created Date Observation Date Name Description Value Unit Range Abnormal Flag Note LastModifiedBy Organization Detail LastModifiedTime 06/12/2006/11/2024 MRI, lumba r spine , w/wo contr ast No observ ation record ed. [email or web address] Not Available 2023 11:20:48 08/22/20 24 08/19/2024 MRI, cervi claribel spine , w/wo contr ast No observ ation record ed. Not Available 2024 16:06:42 Result Notes None recorded. Procedures Surgical History Date Name Laterality Status Provider Name and Address Organization Details Recorded Time Back Surgery completed [facility] 05/21/2024 10:17:19 section completed [facility] 05/21/2024 10:17:33 Appendectomy completed [facility] 05/21/2024 10:17:40 Cholecystectomy completed [facility] 05/21/2024 10:17:48 hysterectomy completed [facility] 05/21/2024 10:17:58 Gastric bypass for obesity completed [facility] 05/21/2024 10:18:08 Imaging Results None recorded. Procedure [...] Updated DateTime 10/17/2024 160.02 cm 33.7 kg/m2 10513.55 g 122 mm[Hg] 82 mm[Hg] [facility] 5 09:17:07 Date Recorded Body height Body mass index (BMI) Body weight Systolic blood pressure Diastolic blood pressure Provider Name and Address Organization Details Last Updated DateTime 05/21/2024 160.02 cm 33.7 kg/m2 22013.55 g 130 mm[Hg] 82 mm[Hg] [facility] 4 10:25:23 Date Recorded Body height Body mass index (BMI) Body weight Systolic blood pressure Diastolic blood pressure Provider Name and Address Organization Details Last Updated DateTime 07/02/2024 160.02 cm 33.7 kg/m2 58948.55 g 126 mm[Hg] 82 mm[Hg] [facility] 4 11:21:39 Social History None recorded. Functional [...] SNOMED-CT Code Diagnosis ICD10 Code Diagnosis Note [id number] SKIP KAUFMAN PA-C [facility] [address] [place] [address] 05/21/2024 09:59:46 05/23/2024 14:19:21 Lumbar radiculopathy [id number] M54.16 [id number] SKIP KAUFMAN PA-C [facility] [address] [place] [address] 07/02/2024 10:12:30 07/07/2024 10:32:51 Lumbar radiculopathy [id number] M54.16 Low back pain [id number] M54.50 [id number] VÍCTOR WALKER MD [facility] [address] [place] [address] 10/17/2024 09:09:50 10/18/2024 05:47:25 Headache [id number] R51.9 Health Concerns Section Related Observation LastModified by Organization Detai ls LastModified Time None Recorded Concern Status LastModified by Organization Details LastModified Time None Recorded Advance Directives Directive None Recorded Payers Insurance Date Sequence Insurance Name Policy Number Policy Junior Covered Member ID Junior Member ID Guarantor Name 10/15/2024 1 [employer] (EPO) [id number] Kassi Claudio [id number] Kassi Claudio Notes Date Note Type [...] being on warfarin. SKIP KAUFMAN PA-C [address] [place], [address], [facility] 05/21/2024 11:01:32 4 text/html Kassi [...] resolved. She had her MRI completed at [facility] on 06/11/2024 but did not obtain a disc with the MRI images to bring to her appointment today. SKIP KAUFMAN PA-C [address] [place], [address], [facility] 07/02/2024 11:49:01 5 text/html Kassi [...] seems to help. VÍCTOR WALKER MD [address] [place], [address], [facility] 10/17/2024 12:23:13 OBGyn Episode No OBEpisode recorded.
--- OUTSIDE RECORDS SUMMARY | 2025-04-05 10:29 | XMS_ITS | Encounter Summary ---
Author Organization [employer] Address [address] [place] [address] Care Team Providers Care Line Runner Name Role Phone Unavailable Primary Care Provider Unavailabl e Encounter Details Date Type Department Care Team (Late st Contact Info) Description 06/03/2019 Transcribed Document [facility] [place] Family Medicine [address] [place] [address] ProviderRikki MD [facility] [place] [address] Social History Tobacco Use Types [...] Montoya MD - 06/03/2019 2:51 PM CDT [facility] [place] [address] KASSI KONG :1970 Visit Time:06/03/2019 Your Visit Summary Your Care Team Admitting Physician - DRE POWER MARK, MD Attending Physician - MARIEL MCCRAY MD Primary Care Physician - ALVARADO STILES (REF), -[facility] Referring Physician - MARIEL MCCRAY MD [...] 2 days Follow Up with ALVARADO STILES (REF)[facility] When Within 2 to [address] Stiles is their Primary Care Provider. Please contact the Patient Resource Center at if you need assistance scheduling a Specialist or Primary Care Provider in the future. Where: [place] [place] [address]- Allergies SUMAtriptan (Other Anaphylactic Shock, Other Anaphylactic [...] range between ( 0.0 and 7.0 ) [place] #: 0.44 K/uL -- Normal range between ( 0.16 and 1.00 ) Eos #: 0.28 x10(3)/uL -- Normal range between ( 0.00 and 0.80 ) [place] %: 5.2 % -- Normal range between [...] ) Urine Bilirubin Dipstick: Negative Urine Specific [place]: 1.021 -- Normal range between ( 1.005 [...] stand. This can reduce dizziness. ??? Take gcok-dzt-bytxius and prescription medicines only as told by [...] 10/01/2006 Document Revised: 03/08/2017 Document Reviewed: 06/14/2016 [employer] Interactive Patient Education ?? 2018 [employer] Head Injury, Adult There are many [...] Ask your health care provider for a nhhq-am-jlrr plan for gradually returning to activities. ??? [...] your friends, family, a trusted colleague, and material requirements worker about your injury, symptoms, and restrictions. Have them watch for any new or worsening problems. General instructions ??? Take bwtz-lsd-axsnyjl and prescription medicines only as told by [...] This is often called the RICE strategy. Cuuc-xsw-evjnhrc anti-inflammatory medicines may also be recommended for [...] are sitting or lying down. ??? Take twou-ygx-zjbisnr and prescription medicines only as told by [...] 07/11/2006 Document Revised: 02/08/2017 Document Reviewed: 02/16/2016 [employer] Interactive Patient Education ?? 2019 [employer] Concussion, Adult A concussion is a [...] are taking any medicines, including prescription medicines, glen-seu-lrhyvyu medicines, and natural remedies. Some medicines, such [...] returning to activities. General instructions ??? Take ilyc-wsk-pmxsvhy and prescription medicines only as told by [...] Tell your teachers, school nurse, school counselor, public speaking coach, director of athletics, or material requirements worker about your injury, symptoms, and restrictions. Tell [...] 12/21/2004 Document Revised: 09/11/2017 Document Reviewed: 09/11/2017 [employer] Interactive Patient Education ?? 2019 [employer] Emergency Awareness and Preventative Care STROKE [...] Assistance with quitting is available by contacting 5-258-KOQV-NOW. This is a free resource providing counseling, [...] was given the opportunity to ask questions. Patient/Mine Geologist Name: Patient/Mine Geologist Signature: Relationship to Patient: Clinician/Hospital Mine Geologist Signature: Please Provide a Telephone Number Where You Can Be Reached: Is it Permissible To Leave a Message? Date: Electronically signed by Doe, [facility] Conversion Assembler Fitter Cerner at 01/28/2023 11:06 PM CDT documented in this encounter Plan of Treatment Not on file documented as of this encounter Visit Diagnoses Not on filedocumented in this encounter
--- OUTSIDE RECORDS SUMMARY | 2025-04-05 10:29 | XMS_ITS | Encounter Summary ---
Author Organization [facility] Address [address] [place] [address] Care Team Providers Care Horticultural Worker Name Role Phone Valentin Daniel MD Primary Care Provider [phone] Reason for Referral * Consultation (Routine) - Authorized Specialty Diagnoses / Procedures Referred By Giovani rose Referred To Contact Neurology Diagnoses Left foot drop Mechanical problems with limbs Polyneuropathy Valentin Daniel MD [address] [place] [address] Phone: tel: fax: Referral ID Status Reason Start Date Expiration Date Visits Requested Visits Authorized [id number] Authorized Specialty Services Required 02/16/2025 08/18/2026 1 1 Encounter Details Date Type Department Care Team (Late st Contact Info) Description 02/16/2025 Community [facility] Community Practice [address] [place] [address] Valentin Daniel MD [address] [place] [address] Left foot drop (Primary Dx); Mechanical problems [...] Description 05/06/2025 1:20 PM EDT Office Visit [facility] Medicine Specialties [address] [place] [address] Angela Todd APRN [address] [place] [address] 10/30/2025 8:00 AM EST Consult [facility] [address] [place] [address] Sim Tillman MD [address] [place] [address] Scheduled Referrals Name Type Priority [...] documented as of this encounter Care Teams Horticultural Worker Relationship Specialty Start Date End Date Valentin Daniel MD PCP - General 09/18/22 documented as of this encounter
--- OUTSIDE RECORDS SUMMARY | 2025-04-05 10:29 | XMS_ITS ---
Author Organization Unknown Medications Medication Instructions Effective Dates (start - stop) Status estradiol 1 MG Oral Tablet 06-16T00:00:00.000+00 :00 - Completed estradiol 1 MG Oral Tablet 07-14T:00:00.000+00 :00 - Completed estradiol 1 MG Oral Tablet :00:00.000+00 :00 - Completed estradiol 1 MG Oral Tablet :00:00.000+00 :00 - Completed pregabalin 100 MG Oral Capsule 2 044-73-10W59:00:00.000+00 :00 - Completed pregabalin 100 MG Oral Capsule 2 033-12-40D32:00:00.000+00 :00 - Completed pregabalin 100 MG Oral Capsule 2 189-80-73U41:00:00.000+00 :00 - Completed baclofen 5 MG Oral Tablet 3-0 3-T:00:00.000+00 :00 - Completed baclofen 5 MG Oral Tablet 3-0 -T00:00:00.000+00 :00 - Completed pregabalin 100 MG Oral Capsule 2 221-26-28O88:00:00.000+00 :00 - Completed baclofen 5 MG Oral Tablet 3-0 -T:00:00.000+00 :00 - Completed baclofen 10 MG Oral Tablet 11-14T:00:00.000+00 :00 - Completed pregabalin 100 MG Oral Capsule 2 770-21-26A24:00:00.000+00 :00 - Completed baclofen 10 MG Oral Tablet 09-26T00:00:00.000+00 :00 - Completed pregabalin 100 MG Oral Capsule 2 158-13-66G50:00:00.000+00 :00 - Completed pregabalin 100 MG Oral Capsule 2 938-30-33U32:00:00.000+00 :00 - Completed pregabalin 100 MG Oral Capsule 2 777-31-06M17:00:00.000+00 :00 - Completed baclofen 5 MG Oral Tablet :00:00.000+00 :00 - Completed pregabalin 100 MG Oral Capsule 2 669-87-66Z15:00:00.000+00 :00 - Completed pregabalin 100 MG Oral Capsule 2 357-50-72O62:00:00.000+00 :00 - Completed carvedilol 6.25 MG Oral Tablet 2 759-29-24H89:00:00.000+00 :00 - Completed baclofen 10 MG Oral Tablet :00:00.000+00 :00 - Completed pregabalin 100 MG Oral Capsule 2 501-07-07N44:00:00.000+00 :00 - Completed tizanidine 4 MG Oral Tablet 2021:00:00.000+00 :00 - Completed carvedilol 6.25 MG Oral Tablet 2 257-24-97T93:00:00.000+00 :00 - Completed ropinirole 1 MG Oral Tablet 2022:00:00.000+00 :00 - Completed ropinirole 1 MG Oral Tablet 2021:00:00.000+00 :00 - Completed fluconazole 100 MG Oral Tablet 635-95-54Q27:00:00.000+00 :00 - Completed warfarin sodium 5 MG Oral Tablet 3171-54-97Y21:00:00.000+00 :00 - Completed warfarin sodium 5 MG Oral Tablet 1696-90-82T84:00:00.000+00 :00 - Completed clopidogrel 75 MG Oral Tablet 05-10-06:00:00.000+00 :00 - Completed fluconazole 200 MG Oral Tablet 810-11-93T93:00:00.000+00 :00 - Completed ropinirole 1 MG Oral Tablet 2022:00:00.000+00 :00 - Completed warfarin sodium 2 MG Oral Tablet 8169-39-11F60:00:00.000+00 :00 - Completed losartan potassium 50 MG Oral Tablet 5064-97-16E88:00:00.000+00 :00 - Completed duloxetine 60 MG Delayed Rel ease Oral Capsule 1671-73-70X99:00:00.000+00 :00 - Completed carvedilol 6.25 MG Oral Tablet 2 414-36-44G17:00:00.000+00 :00 - Completed prednisone 20 MG Oral Tablet 12-19-22:00:00.000+00 :00 - Completed clopidogrel 75 MG Oral Tablet 07-12-12:00:00.000+00 :00 - Completed esomeprazole 40 MG Delayed R elease Oral Capsule 9668-42-77S66:00:00.000+00 :00 - Completed warfarin sodium 2 MG Oral Tablet 8824-66-29V03:00:00.000+00 :00 - Completed warfarin sodium 5 MG Oral Tablet 0355-04-37P82:00:00.000+00 :00 - Completed clopidogrel 75 MG Oral Tablet 06-03-01:00:00.000+00 :00 - Completed carvedilol 6.25 MG Oral Tablet 2 441-07-25N07:00:00.000+00 :00 - Completed warfarin sodium 5 MG Oral Tablet 0864-90-45F99:00:00.000+00 :00 - Completed {6 (azithromycin 250 MG Oral Tablet) } Pack 4193-54-22E60:00:00.000+00 :00 - Completed cefdinir 300 MG Oral Capsule 12-15-26:00:00.000+00 :00 - Completed tizanidine 4 MG Oral Tablet 2021:00:00.000+00 :00 - Completed prednisone 5 MG Oral Tablet 2022:00:00.000+00 :00 - Completed fluconazole 200 MG Oral Tablet 2 836-73-73Q92:00:00.000+00 :00 - Completed prednisone 5 MG Oral Tablet 2022:00:00.000+00 :00 - Completed prednisone 20 MG Oral Tablet 12-15-16:00:00.000+00 :00 - Completed rivaroxaban 20 MG Oral Table t [Xarelto] 3097-62-76M91:00:00.000+00 :00 - Completed {21 (methylprednisolone 4 MG Oral Tablet) } Pack 9556-57-20F28:00:00.000+00 :00 - Completed spironolactone 50 MG Oral Tablet 1105-33-82M25:00:00.000+00 :00 - Completed spironolactone 50 MG Oral Tablet 1038-87-56W92:00:00.000+00 :00 - Completed spironolactone 50 MG Oral Tablet 4582-11-02X16:00:00.000+00 :00 - Completed duloxetine 60 MG Delayed Rel ease Oral Capsule 5076-43-14I72:00:00.000+00 :00 - Completed prednisone 20 MG Oral Tablet 12-19-18:00:00.000+00 :00 - Completed azithromycin 500 MG Oral Tablet 3942-12-52W35:00:00.000+00 :00 - Completed spironolactone 50 MG Oral Tablet 0962-39-20U93:00:00.000+00 :00 - Completed prednisone 20 MG Oral Tablet 202 12-16-09:00:00.000+00 :00 - Completed prednisone 20 MG Oral Tablet 12-19-10:00:00.000+00 :00 - Completed clopidogrel 75 MG Oral Tablet 06-11-09:00:00.000+00 :00 - Completed duloxetine 60 MG Delayed Rel ease Oral Capsule 4690-91-00X93:00:00.000+00 :00 - Completed tizanidine 4 MG Oral Tablet 2021:00:00.000+00 :00 - Completed duloxetine 60 MG Delayed Rel ease Oral Capsule 1858-88-21D22:00:00.000+00 :00 - Completed rivaroxaban 20 MG Oral Table t [Xarelto] 2791-74-30B39:00:00.000+00 :00 - Completed hydroxychloroquine sulfate 2 00 MG Oral Tablet 9903-26-39F84:00:00.000+00 :00 - Completed ropinirole 1 MG Oral Tablet 2021:00:00.000+00 :00 - Completed esomeprazole 40 MG Delayed R elease Oral Capsule 1069-97-32V03:00:00.000+00 :00 - Completed torsemide 20 MG Oral Tablet 2022:00:00.000+00 :00 - Completed cyclobenzaprine hydrochlorid e 10 MG Oral Tablet 9694-13-14X67:00:00.000+00 :00 - Completed torsemide 20 MG Oral Tablet 2022:00:00.000+00 :00 - Completed gabapentin 400 MG Oral Capsule 2 783-37-52E08:00:00.000+00 :00 - Completed hydroxychloroquine sulfate 2 00 MG Oral Tablet 3020-54-35J38:00:00.000+00 :00 - Completed losartan potassium 50 MG Oral Tablet 6421-33-31T15:00:00.000+00 :00 - Completed torsemide 20 MG Oral Tablet 2021:00:00.000+00 :00 - Completed torsemide 20 MG Oral Tablet 2021:00:00.000+00 :00 - Completed hydroxychloroquine sulfate 2 00 MG Oral Tablet 2115-22-67W75:00:00.000+00 :00 - Completed esomeprazole 40 MG Delayed R elease Oral Capsule 8209-36-81V56:00:00.000+00 :00 - Completed rivaroxaban 20 MG Oral Table t [Xarelto] 1535-57-73R71:00:00.000+00 :00 - Completed gabapentin 400 MG Oral Capsule 2 061-29-82J71:00:00.000+00 :00 - Completed rivaroxaban 20 MG Oral Table t [Xarelto] 7110-37-87I10:00:00.000+00 :00 - Completed losartan potassium 50 MG Oral Tablet 9538-76-11D58:00:00.000+00 :00 - Completed hydroxychloroquine sulfate 2 00 MG Oral Tablet 2618-25-77Z09:00:00.000+00 :00 - Completed esomeprazole 40 MG Delayed R elease Oral Capsule 1036-05-15P22:00:00.000+00 :00 - Completed hydroxychloroquine sulfate 2 00 MG Oral Tablet 3253-24-26N66:00:00.000+00 :00 - Completed ropinirole 1 MG Oral Tablet 2021:00:00.000+00 :00 - Completed ropinirole 1 MG Oral Tablet 2021:00:00.000+00 :00 - Completed losartan potassium 50 MG Oral Tablet 0732-61-20M27:00:00.000+00 :00 - Completed acetaminophen 325 MG / hydro codone bitartrate 10 MG Oral Tablet 3582-74-81E98:00:00.000+0 0 :00 - Completed acetaminophen 325 MG / hydro codone bitartrate 10 MG Oral Tablet 4940-62-60W37:00:00.000+0 0 :00 - Completed acetaminophen 325 MG / hydro codone bitartrate 10 MG Oral Tablet 2832-94-08W84:00:00.000+0 0 :00 - Completed acetaminophen 325 MG / hydro codone bitartrate 10 MG Oral Tablet 7348-08-40H99:00:00.000+0 0 :00 - Completed acetaminophen 325 MG / hydro codone bitartrate 10 MG Oral Tablet 2180-19-12W43:00:00.000+0 0 :00 - Completed acetaminophen 325 MG / hydro codone bitartrate 10 MG Oral Tablet 6154-10-84J03:00:00.000+0 0 :00 - Completed acetaminophen 325 MG / hydro codone bitartrate 10 MG Oral Tablet 4754-43-39K36:00:00.000+0 0 :00 - Completed acetaminophen 325 MG / hydro codone bitartrate 10 MG Oral Tablet 4488-57-65K37:00:00.000+0 0 :00 - Completed acetaminophen 325 MG / hydro codone bitartrate 10 MG Oral Tablet 0345-45-35K28:00:00.000+0 0 :00 - Completed acetaminophen 325 MG / hydro codone bitartrate 10 MG Oral Tablet 6697-16-27N84:00:00.000+0 0 :00 - Completed Patient Care team information Name Category Status Period Participants - - Proposed period not known -
--- OUTSIDE RECORDS SUMMARY | 2025-04-05 10:29 | XMS_ITS | Encounter Summary ---
Author Organization [employer] Address [address] [place] [address] Care Team Providers Care Warehouser Name Role Phone Unavailable Primary Care Provider Unavailabl e Encounter Details Date Type Department Care Team (Late st Contact Info) Description 06/03/2019 Transcribed Document [facility] [place] Family Medicine [address] [place] [address] ProviderRikki MD [address], [place] [id number] Social History Tobacco Use Types Packs/Day Years [...] Communication Barrier : None Primary Language : Ugandan Any Spiritual/Cultural Needs or Requests : No [...] - 06/03/2019 11:10 EDT Electronically signed by [facility], [facility] Conversion Vmware Systems Administrator Cerner at 01/28/2023 10:51 PM CDT documented in this encounter Plan of Treatment Not on file documented as of this encounter Visit Diagnoses Not on filedocumented in this encounter
--- OUTSIDE RECORDS SUMMARY | 2025-04-05 10:29 | XMS_ITS | Encounter Summary ---
Author Organization [employer] Address [address] [place] [address] Care Team Providers Care Instructional Design Specialist Name Role Phone Unavailable Primary Care Provider Unavailabl e Encounter Details Date Type Department Care Team (Late st Contact Info) Description 06/22/2021 Transcribed Document [facility] [place] Family Medicine [facility] [place] [address] ProviderRikki MD [facility] [place], [place] [id number] Social History Tobacco Use Types Packs/Day Years [...] No Aruna Garcia - 06/22/2021 2:09 EDT documented in this encounter Plan of Treatment Not on file documented as of this encounter Visit Diagnoses Not on filedocumented in this encounter
--- OUTSIDE RECORDS SUMMARY | 2025-04-05 10:29 | XMS_ITS | Encounter Summary ---
Author Organization [employer] Address [address] [place] [address] Care Team Providers Care Controller Coal Or Ore Name Role Phone Unavailable Primary Care Provider Unavailabl e Encounter Details Date Type Department Care Team (Late st Contact Info) Description 06/22/2021 Transcribed Document [facility] [place] [facility] [place] [address] ProviderRikki MD [address] [place] [address] Social History Tobacco Use Types Packs/Day [...] Montoya MD - 06/22/2021 2:03 AM CDT [facility] [place] [address] KASSI KONG :1970 Visit Time:06/21/2021 Your [...] Within 2 to 3 days Where: [place] [address]- [facility] (1) Allergies SUMAtriptan (Other Anaphylactic Shock, Other [...] range between ( 0.0 and 7.0 ) [place] #: 0.52 K/uL -- Normal range between ( 0.16 and 1.00 ) Eos #: 0.24 x10(3)/uL -- Normal range between ( 0.00 and 0.80 ) [place] %: 5.3 % -- Normal range between [...] these instructions at home: Medicines ??? Take fnyc-bhg-zshrtoo and prescription medicines only as told by [...] provider. Document Revised: 04/03/2019 Document Reviewed: 04/03/2019 [employer] Patient Education ?? 2020 [employer]. Emergency Awareness and Preventative Care STROKE is [...] Assistance with quitting is available by contacting 1-193-JOOI-NOW. This is a free resource providing counseling, [...] was given the opportunity to ask questions. Patient/Mail Order Biller Name: Patient/Mail Order Biller Signature: Relationship to Patient: Clinician/Hospital Mail Order Biller Signature: Please Provide a Telephone Number Where You Can Be Reached: Is it Permissible To Leave a Message? Date: documented in this encounter Plan of Treatment Not on file documented as of this encounter Visit Diagnoses Not on filedocumented in this encounter
--- OUTSIDE RECORDS SUMMARY | 2025-04-05 10:29 | XMS_ITS | Encounter Summary ---
Author Organization [employer] Address [address] [place] [address] Care Team Providers Care Line Therapist Name Role Phone Unavailable Primary Care Provider Unavailabl e Encounter Details Date Type Department Care Team (Late st Contact Info) Description 06/21/2021 Transcribed Document [facility] Family Medicine [address] [place] [address] ProviderRikki MD [address] [place], [place] [id number] Social History Tobacco Use Types Packs/Day Years [...] Historical ProviderMD - 06/21/2021 9:55 PM CDT [place] Suicide Severity Rating Scale (C-SSRS) Entered On: 06/21/2021 22:29 EDT Performed On: 06/21/2021 22:27 EDT by Aruna Garcia [place] Suicide Severity Rating Scale (C-SSRS) CSSRS Past Month Wish to be : No CSSRS Past Month Suicidal Thoughts : No CSSRS Lifetime Suicide Behavior : No Suicide Severity Rating Score : 0 Suicide Severity Rating : No Additional Care Required at this time Aruna Garcia - 06/21/2021 22:27 EDT documented in this encounter Plan of Treatment Not on file documented as of this encounter Visit Diagnoses Not on filedocumented in this encounter
--- OUTSIDE RECORDS SUMMARY | 2025-04-05 10:29 | XMS_ITS | Encounter Summary ---
Author Organization [employer] Address [address] [place] [address] Care Team Providers Care Php Mysql Developer Name Role Phone Unavailable Primary Care Provider Unavailabl e Encounter Details Date Type Department Care Team (Late st Contact Info) Description 06/22/2021 Transcribed Document [place] [facility] [place] [address] ProviderRikki MD [facility] [place], [place] [id number] Social History Tobacco Use Types Packs/Day Years [...]
--- OUTSIDE RECORDS SUMMARY | 2025-04-05 10:29 | XMS_ITS | Encounter Summary ---
Author Organization [employer] Address [address] [place] [address] Care Team Providers Care Video Editing Intern Name Role Phone Unavailable Primary Care Provider Unavailabl e Encounter Details Date Type Department Care Team (Late st Contact Info) Description 06/11/2019 Transcribed Document [facility] Family Medicine [address] [place] [address] ProviderRikki MD [address] [place], [place] [id number] Social History Tobacco Use Types Packs/Day Years [...] Lucero Torrez RN - 06/11/2019 9:55 EDT Electronically signed by Giacomo Azar Conversion Commercial Property Administrator Cerner at 01/28/2023 10:55 PM CDT documented in this encounter Plan of Treatment Not on file documented as of this encounter Visit Diagnoses Not on filedocumented in this encounter
--- OUTSIDE RECORDS SUMMARY | 2025-04-05 10:29 | XMS_ITS | Encounter Summary ---
Author Organization [employer] Address [address] [place] [address] Care Team Providers Care Charter Bus Driver Name Role Phone Unavailable Primary Care Provider Unavailabl e Encounter Details Date Type Department Care Team (Late st Contact Info) Description 06/21/2021 Transcribed Document [facility] [place] Medicine [address] [place] [address] ProviderRikki MD [address] [place], [place] [id number] Social History Tobacco Use Types Packs/Day Years [...] (0) Aruna Garcia - 06/21/2021 22:27 EDT documented in this encounter Plan of Treatment Not on file documented as of this encounter Visit Diagnoses Not on filedocumented in this encounter
--- OUTSIDE RECORDS SUMMARY | 2025-04-05 10:29 | XMS_ITS | Encounter Summary ---
Author Organization [employer] Address [address] [place] [address] Care Team Providers Care Data Deliverables Manager Name Role Phone Unavailable Primary Care Provider Unavailabl e Encounter Details Date Type Department Care Team (Late st Contact Info) Description 06/21/2021 Transcribed Document [facility] [place] Counts include 234 beds at the [facility] [place] [address] ProviderRikki MD [address] [place] [id number] Social History Tobacco Use Types Packs/Day Years [...] : 2 - Emergent Tracking Group : [facility] ED Jasmina Rao RN - 06/21/2021 [...] PNED ; Probability: 0 ; Diagnosis Code: [id number] ED Height and Weight Height Source : Stated Height Entry Format : [place] Height, Feet : 5 ft(Converted to: 152 cm, 60 Inch) Height, Inches : 3 Inch(Converted to: 0 ft 3 Inch, 7.62 cm) Clinical Height : 160.02 cm Weight Source, ED : Critical estimated dosing weight Weight Entry Format : [place] Weight, Pounds : 220 lb Clinical Dosing Weight : 100 kg Body Surface Area (BSA) : 2.02 m2 Body Mass Index : 39.1 kg/m2 (HI) [place] Body Weight (IBW) : 52.02 kg Jasmina Rao RN - 06/21/2021 22:09 EDT Electronically signed by Giacomo Azar Conversion Industrial Maintenance Repairer Cerner at 01/28/2023 10:48 PM CDT documented in this encounter Plan of Treatment Not on file documented as of this encounter Visit Diagnoses Not on filedocumented in this encounter
--- OUTSIDE RECORDS SUMMARY | 2025-04-05 10:29 | XMS_ITS | Encounter Summary ---
Author Organization [employer] Address [address] [place] [address] Care Team Providers Care Information Coder Name Role Phone Unavailable Primary Care Provider Unavailabl e Encounter Details Date Type Department Care Team (Late st Contact Info) Description 06/03/[address] [facility] [place] Family Medicine [address] [place] [address] ProviderRikki MD [facility] [place] [address] Social History Tobacco Use Types [...] Montoya MD - 06/03/2019 2:51 PM CDT [facility] [place] [address] KASSI KONG :1970 Visit Time:06/03/2019 Your Visit Summary Your Care Team Admitting Physician - DRE POWER MARK, MD Attending Physician - MARIEL MCCRAY MD Primary Care Physician - ALVARADO STILES (REF), -[facility] Referring Physician - MARIEL MCCRAY MD [...] 2 days Follow Up with ALVARADO STILES (REF)MD-[facility] When Within 2 to [address] Stiles is their Primary Care Provider. Please contact the Patient Resource Center at if you need assistance scheduling a Specialist or Primary Care Provider in the future. Where: [place] [address] [place] [address]- Allergies SUMAtriptan (Other Anaphylactic Shock, Other Anaphylactic [...] range between ( 0.0 and 7.0 ) [place] #: 0.44 K/uL -- Normal range between ( 0.16 and 1.00 ) Eos #: 0.28 x10(3)/uL -- Normal range between ( 0.00 and 0.80 ) [place] %: 5.2 % -- Normal range between [...] ) Urine Bilirubin Dipstick: Negative Urine Specific [place]: 1.021 -- Normal range between ( 1.005 [...] stand. This can reduce dizziness. ??? Take ejfd-giq-zbdgyqg and prescription medicines only as told by [...] 10/01/2006 Document Revised: 03/08/2017 Document Reviewed: 06/14/2016 [employer] Patient Education ?? 2018 [employer] Head Injury, Adult There are many [...] Ask your health care provider for a aafd-ef-wgdc plan for gradually returning to activities. ??? [...] your friends, family, a trusted colleague, and computer networker about your injury, symptoms, and restrictions. Have them watch for any new or worsening problems. General instructions ??? Take lnqt-aor-bpdkats and prescription medicines only as told by [...] This is often called the RICE strategy. Sxrp-wql-lgmfowl anti-inflammatory medicines may also be recommended for [...] are sitting or lying down. ??? Take gjvf-xey-rbzjoar and prescription medicines only as told by [...] 07/11/2006 Document Revised: 02/08/2017 Document Reviewed: 02/16/2016 [employer] Patient Education ?? 2019 [employer] Concussion, Adult A concussion is a [...] are taking any medicines, including prescription medicines, dzzj-xed-jnjlcna medicines, and natural remedies. Some medicines, such [...] returning to activities. General instructions ??? Take xlga-ftb-yixnsuv and prescription medicines only as told by [...] Tell your teachers, school nurse, school counselor, baseball coach, clinical provider trainer, or computer networker about your injury, symptoms, and restrictions. Tell [...] 12/21/2004 Document Revised: 09/11/2017 Document Reviewed: 09/11/2017 [employer] Patient Education ?? 2019 [employer] Emergency Awareness and Preventative Care STROKE [...] Assistance with quitting is available by contacting 7-501-APXE-NOW. This is a free resource providing counseling, [...] was given the opportunity to ask questions. Patient/Drum Sander Name: Patient/Drum Sander Signature: Relationship to Patient: Clinician/Hospital Drum Sander Signature: Please Provide a Telephone Number Where You Can Be Reached: Is it Permissible To Leave a Message? Date: Electronically signed by Doe, [facility] Conversion Secondary School Teacher Cerner at 01/28/2023 11:08 PM CDT documented in this encounter Plan of Treatment Not on file documented as of this encounter Visit Diagnoses Not on filedocumented in this encounter
--- OUTSIDE RECORDS SUMMARY | 2025-04-05 10:29 | XMS_ITS | Referral Summary ---
Author Organization [employer] Address [address] [place] [address] Care Team Providers Care Barn Boss Name Role Phone Unavailable Primary Care Provider [...]
--- OUTSIDE RECORDS SUMMARY | 2025-04-05 10:29 | XMS_ITS | Encounter Summary ---
Author Organization [employer] Address [address] [place] [address] Care Team Providers Care Data Management Consultant Name Role Phone Unavailable Primary Care Provider Unavailabl e Encounter Details Date Type Department Care Team (Late st Contact Info) Description 06/22/2021 Transcribed Document [facility] [place] [facility] [place] [address] ProviderRikki MD [address] [place] [phone] Social History Tobacco Use Types Packs/Day Years [...] had a heart cath done by her weigh machine operator in [place] in February, she did not have any [...] EDT Height Source Stated Height Entry Format [place] Height/Length, YORUBA (ft) 5 ft Height/Length YORUBA 3 Inch CLINICALHEIGHT 160.02 cm [place] Body Weight 52.02 kg Weight Source, ED Critical estimated dosing weight Weight Entry Format [place] Weight Salvadorean lb 220 lb CLINICALWEIGHT 100 kg Body [...] Triage: ED C-SSRS: ED Clinical Reconciliation: ED configuration manager: EKG: Normal Saline Flush: 10 mL, IV [...] % 30.8 % Lymph # 3.02 x10(3)/uL [place] % 5.3 % [place] # 0.52 K/uL Eos % 2.4 % [...]
--- OUTSIDE RECORDS SUMMARY | 2025-04-05 10:29 | XMS_ITS | Clinical Summary ---
Author Organization [employer] Address [address] [place] [address] Care Team Providers Care Product Tester Name Role Phone Unavailable Primary Care Provider [...]
--- OUTSIDE RECORDS SUMMARY | 2025-04-05 10:29 | XMS_ITS | Encounter Summary ---
Author Organization [employer] Address [address] [place] [address] Care Team Providers Care Resource Conservationist Name Role Phone Unavailable Primary Care Provider Unavailabl e Encounter Details Date Type Department Care Team (Late st Contact Info) Description 06/22/2021 Transcribed Document [facility] [place] [facility] [place] [address] ProviderRikki MD [facility] [place], [place] [phone] Social History Tobacco Use Types Packs/Day Years [...]
--- OUTSIDE RECORDS SUMMARY | 2025-04-05 10:29 | XMS_ITS | Encounter Summary ---
Author Organization [employer] Address [address] [place] [address] Care Team Providers Care Health Information Tech Name Role Phone Unavailable Primary Care Provider Unavailabl e Encounter Details Date Type Department Care Team (Late st Contact Info) Description 06/03/2019 Transcribed Document [facility] [place] [facility] [place] [address] ProviderRikki MD [address] [place], [place] [address] Social History Tobacco Use Types Packs/Day Years [...]
--- OUTSIDE RECORDS SUMMARY | 2025-04-05 10:29 | XMS_ITS | Encounter Summary ---
Author Organization [facility] Address [address] [place] [address] Care Team Providers Care Truck Shop Mechanic Name Role Phone Valentin Daniel MD Primary Care Provider [phone] Encounter Details Date Type Department Care Team (Latest Contact Info) Description 02/05/2025 [facility] [address] [place] [address] Valentin Daniel MD [address] [place] [address] Polyneuropathy (Primary Dx); Foot drop, left foot [...] Description 05/06/2025 1:20 PM EDT Office Visit [facility] [address] [place] [address] Angela Todd, ELECTRONIC BENCH TECHNICIAN [address] [place] [address] 10/30/2025 8:00 AM EST Consult [facility] [address] [place] [address] Sim Tillman MD [address] [place] [address] documented as of this encounter [...] documented as of this encounter Care Teams Truck Shop Mechanic Relationship Specialty Start Date End Date Valentin Daniel MD PCP - General 09/18/22 documented as of this encounter
--- OUTSIDE RECORDS SUMMARY | 2025-04-05 10:29 | XMS_ITS | Encounter Summary ---
Author Organization [employer] Address [address] [place] [address] Care Team Providers Care Transformer Inspector Name Role Phone Unavailable Primary Care Provider Unavailabl e Encounter Details Date Type Department Care Team (Late st Contact Info) Description 06/03/2019 Transcribed Document [facility] [place] Medicine [address] [place] [address] ProviderRikki MD [address] [place], [place] [id number] Social History Tobacco Use Types Packs/Day Years [...] EDT DCP GENERIC CODE Tracking Group : [facility] ED MARC GREENWOOD RN - 06/03/2019 [...] Recent Thoughts of Harming/Killing Others : No Organic Chemistry Professor Needed : No MARC GREENWOOD RN - [...] PNED ; Probability: 0 ; Diagnosis Code: [id number] ED Height and Weight Height Source : Stated Height Entry Format : [place] Height, Feet : 5 ft(Converted to: 152 cm, 60 Inch) Height, Inches : 3 Inch(Converted to: 0 ft 3 Inch, 7.62 cm) Clinical Height : 160.02 cm Weight Source, ED : Critical estimated dosing weight Weight Entry Format : [place] Weight, Pounds : 220 lb Clinical Dosing Weight : 100 kg Body Surface Area (BSA) : 2.02 m2 Body Mass Index : 39.1 kg/m2 (HI) [place] Body Weight (IBW) : 52.02 kg MARC [...]
--- OUTSIDE RECORDS SUMMARY | 2025-04-05 10:29 | XMS_ITS | Encounter Summary ---
Author Organization [employer] Address [address] [place] [address] Care Team Providers Care Medical/Surgery Registered Nurse Name Role Phone Unavailable Primary Care Provider Unavailabl e Encounter Details Date Type Department Care Team (Late st Contact Info) Description 06/03/2019 Transcribed Document [facility] [place] [facility] [place] [address] ProviderRikki MD [facility] [place], [place] [phone] Social History Tobacco Use Types Packs/Day Years [...]
--- OUTSIDE RECORDS SUMMARY | 2025-04-05 10:29 | XMS_ITS | Encounter Summary ---
Author Organization [employer] Address [address] [place] [address] Care Team Providers Care Wood Boat Builder Supervisor Name Role Phone Unavailable Primary Care Provider Unavailabl e Encounter Details Date Type Department Care Team (Late st Contact Info) Description 06/21/2021 Transcribed Document [facility] [place] [facility] [place] [address] ProviderRikki MD [facility] [place], [place] [phone] Social History Tobacco Use Types Packs/Day Years [...] On: 06/21/2021 22:27 EDT by Aruna Garcia ED Quick Look Assessment Level of Consciousness : Alert, Awake Affect/Behavior : Appropriate, Cooperative Orientation : Oriented x 4 Skin Temperature : Warm Skin Description : Normal for ethnicity Aruna Garcia - 06/21/2021 22:27 EDT ED General-Functional Assess Information Obtained From : Patient Preferred Communication Mode : Verbal Communication Barrier : None Primary Language : Haitian Any Spiritual/Cultural Needs or Requests : No [...] WDL : Aruna Fleming 06/21/2021 22:27 EDT documented in this encounter Plan of Treatment Not on file documented as of this encounter Visit Diagnoses Not on filedocumented in this encounter
--- OUTSIDE RECORDS SUMMARY | 2025-04-05 10:30 | XMS_ITS | Clinical Summary ---
Author Organization [facility] Address [address] [place] [address] Care Team Providers Care Lock Corner Machine Operator Name Role Phone Valentin Daniel MD Primary Care Provider [phone] Allergies Active Allergy Reactions Criticality Noted Date [...] cream 01/21/20 21 Active ergocalciferol 1.25 MG (47220 UT) capsule TAKE ONE CAPSULE BY MOUTH EVERY WEEK DIRECTED 03/01/20 21 Active HYDROcodone-acetam inophen (Phillips) 10-325 MG tablet TAKE ONE TABLET BY [...] MG tablet 01/28/20 24 Active nystatin (Mycostatin) 129247 UNIT/GM powder 02/01/20 24 Active omeprazole (PriLOSEC) [...] Date Type Department Care Team Description 02/16/2025 [facility] [address] [place] [address] Valentin Daniel MD Left foot drop (Primary Dx); Mechanical problems with limbs; Polyneuropathy 02/05/2025 [facility] [address] [place] [address] Valentin aDniel MD Polyneuropathy (Primary Dx); Foot drop, left foot 01/15/2025 Refill [facility] Specialties [address] [place] [address] Angela Todd APRN from Last [...] [facility] [place] [facility] [address] [place] [address] Angela Todd APRN [address] [place] [address] 10/30/2025 8:00 AM EST Consult [facility] [address] [place] [address] Sim Tillman MD [address] [place] [address] Health Maintenance Due Date Last Done Comments [...] (2 - Td or Tdap) 06/20/2021 06/20/2011 [id number] Vaccine (4 - season) 2024 07/14/2021, 11/17/2020, [...] MRSA 04/20/2021 04/20/2021 Insurance [employer] Care Teams Lock Corner Machine Operator Relationship Specialty Start Date End Date Valentin Daniel MD PCP - General 09/18/22
[2025-04-05 10:37] VITALS: BP 133/78; PULSE 62; RESP 20; TEMP 36.9; O2SAT 99
[2025-04-05 10:42] LABS: Basophils # 0.1 K/mm3 (0-0.2); Basophils % 1.3 % (0.1-2.0); Eosinophils # 0.2 Kmm3 (0.0-0.4); Eosinophils % 2.2 % (0.1-12.0); Hematocrit 40.8 % (37.0-47.0); Hemoglobin 13.2 g/dL (12.2-16.2); Immature Granulocytes # 0.01 10^3uL; Immature Granulocytes % 0.1 %; Lymphocytes # 4.1 K/mm3 (0.7-4.5); Lymphocytes % 51.9 % (10-50); Mean Corpuscular HGB Conc 32.4 g/dL (31.8-35.4); Mean Corpuscular Volume 86.6 fl (81-99); Mean Platelet Volume 10.1 fl (7.4-10.4); Monocytes # 0.5 K/mm3 (0.1-1.0); Monocytes % 6.5 % (1.7-9.3); Nucleated Red Blood Cells # 0 10^3/uL; Nucleated Red Blood Cells % 0 %; Platelet Count 371 K/mm3 (142-424); Red Blood Count 4.71 M/mm3 (4.20-5.40); Red Cell Distribution Width 13.2 % (11.5-17.5); Red Cell Distribution Width-SD 41.2 fL; White Blood Count 7.8 K/mm3 (4.8-10.8)
[2025-04-05 10:48] LABS: Albumin Level 4.1 g/dl (3.5-5.0); Chloride 101 mmol/L (98-107); Potassium 3.7 mmoL/L (3.5-5.1); Sodium 139 mmol/L (136-145)
[2025-04-05 10:50] LABS: Blood Urea Nitrogen 9 mg/dl (7-17); Creatinine Clearance Estimated 118 mL/min (50-200); Estimated Glomerular Filt Rate 87 ml/min (>60); GFR (African American) 106 ML/MIN (>60)
[2025-04-05] MEDS: ONDANSETRON 4MG/2ML VIAL 4 MG IV (10:50)
[2025-04-05 10:51] LABS: Alanine Aminotransferase 60 U/L (12-78); Albumin/Globulin Ratio 1.2 (1.1-1.8); Alkaline Phosphatase 83 U/L (38-126); Anion Gap 12.7 mEq/L (5-15); Aspartate Amino Transferase 57 U/L (14-36); Bilirubin,Total 0.3 mg/dl (0.2-1.3); Calcium 8.8 mg/dl (8.4-10.2); Carbon Dioxide 29 mmol/L (22.0-30.0); Globulin 3.4 g/dL (1.3-3.2); Glucose 89 mg/dl (74-100); Total Protein,Serum 7.5 g/dl (6.3-8.2)
[2025-04-05] MEDS: MORPHINE 8MG/ML SYRINGE 8 MG IV (10:51)
[2025-04-05 11:07] VITALS: BP 181/90; PULSE 60; RESP 18; O2SAT 99
[2025-04-05 11:15] LABS: Prothrombin Time 46.5 seconds (10.1-12.5)
[2025-04-05] MEDS: HYDROMORPHONE 2MG/ML SYRINGE 1 MG IV (11:44)
[2025-04-05 12:00] VITALS: PULSE 64; O2SAT 94
[2025-04-05 12:34] VITALS: BP 108/66; O2SAT 94
[2025-04-05 12:54] VITALS: BP 108/66; PULSE 60; RESP 18; TEMP 36.9; O2SAT 96
== END 2025-04-05 12:55 | disposition home or self-care (01) ==
PROVIDERS: Emergency Provider Student in an Organized Health Care Education/Training Program; PCP Family Medicine
DX: S82.62XA Displaced fracture of lateral malleolus of left fibula, initial encounter for closed fracture (principal); X50.1XXA Overexertion from prolonged static or awkward postures, initial encounter
CPT/HCPCS: 29515; 73562; 73590; 73610; 73630; 80053; 85025; 85610; 96374; 96375; 99285; J1171; J2270; J2405

== ENCOUNTER 2025-04-14 11:17 | Outpatient (CLI) | payer OTHER, SELFPAY ==
--- OUTSIDE RECORDS SUMMARY | 2025-04-14 11:20 | XMS_ITS | Encounter Summary ---
Author Organization [employer] ([place], [place], [place] Address [address] [place] [address] Care Team Providers Care Php Wordpress Developer Name Role Phone Unavailable Primary Care Provider Unavailabl e Encounter Details Date Type Department Care Team (Late st Contact Info) Description 06/03/2019 Transcribed Document [facility] [place] [facility] [place] [address] ProviderRikki MD [address] [place] [id number] Social History Tobacco Use Types Packs/Day Years [...]
--- OUTSIDE RECORDS SUMMARY | 2025-04-14 11:20 | XMS_ITS | Encounter Summary ---
Author Organization [employer] ([place], [place], [place], [place]) Address [address] [place] [address] Care Team Providers Care Curriculum Developer Name Role Phone Unavailable Primary Care Provider Unavailabl e Encounter Details Date Type Department Care Team (Late st Contact Info) Description 06/22/2021 Transcribed Document [facility] [place] [place] [facility] [place] [address] ProviderRikki MD [address] [place] [id number] Social History Tobacco Use Types Packs/Day Years [...]
--- OUTSIDE RECORDS SUMMARY | 2025-04-14 11:20 | XMS_ITS | Encounter Summary ---
Author Organization [employer] ([place], [place], [place], [place]) Address [address] [place] [address] Care Team Providers Care Shearing Shed Worker Name Role Phone Unavailable Primary Care Provider Unavailabl e Encounter Details Date Type Department Care Team (Late st Contact Info) Description 06/03/2019 Transcribed Document [facility] [place] [facility] [place] [address] ProviderRikki MD [address] [place] [address] Social History Tobacco Use Types Packs/Day [...] Montoya MD - 06/03/2019 2:51 [place] [address] KASSI KONG :1970 Visit Time:06/03/2019 Your Visit Summary Your Care Team Admitting Physician - DRE POWER MARK, MD Attending Physician - MARIEL MCCRAY MD Primary Care Physician - ALVARADO STILES (REF), -[facility] Referring Physician - MARIEL MCCRAY MD [...] 2 days Follow Up with ALVARADO STILES (REF)ADA When Within 2 to 3 [address] Stiles is their Primary Care Provider. Please contact the Patient Resource Center at if you need assistance scheduling a Specialist or Primary Care Provider in the future. Where: [place] [address] [place] [address]- Allergies SUMAtriptan (Other Anaphylactic Shock, Other Anaphylactic [...] range between ( 0.0 and 7.0 ) [place] #: 0.44 K/uL -- Normal range between ( 0.16 and 1.00 ) Eos #: 0.28 x10(3)/uL -- Normal range between ( 0.00 and 0.80 ) [place] %: 5.2 % -- Normal range between [...] ) Urine Bilirubin Dipstick: Negative Urine Specific [place]: 1.021 -- Normal range between ( 1.005 [...] stand. This can reduce dizziness. ??? Take wicj-avr-fdcwmwr and prescription medicines only as told by [...] 10/01/2006 Document Revised: 03/08/2017 Document Reviewed: 06/14/2016 Neovacs Interactive Patient Education ?? 2018 Neovacs Inc. Head Injury, Adult There are many [...] Ask your health care provider for a vcdl-fo-rcnw plan for gradually returning to activities. ??? [...] your friends, family, a trusted colleague, and test worker about your injury, symptoms, and restrictions. Have them watch for any new or worsening problems. General instructions ??? Take yzkz-lch-dcstekd and prescription medicines only as told by [...] 04/10/2017 Elsevier Interactive Patient Education ?? 2019 [employer] Contusion A contusion is a deep [...] This is often called the RICE strategy. Knsj-dfl-lvuzhej anti-inflammatory medicines may also be recommended for [...] are sitting or lying down. ??? Take kzob-zdk-yoiycti and prescription medicines only as told by [...] 07/11/2006 Document Revised: 02/08/2017 Document Reviewed: 02/16/2016 Neovacs Interactive Patient Education ?? 2019 Ne[employer] Inc. Concussion, Adult A concussion is a [...] are taking any medicines, including prescription medicines, qebb-uem-dggnskd medicines, and natural remedies. Some medicines, such [...] returning to activities. General instructions ??? Take oxfd-lky-vlmusvs and prescription medicines only as told by [...] Tell your teachers, school nurse, school counselor, health coach, diabetes trainer, or test worker about your injury, symptoms, and restrictions. [...] 12/21/2004 Document Revised: 09/11/2017 Document Reviewed: 09/11/2017 Neovacs Interactive Patient Education ?? 2019 Neovacs Inc. Emergency Awareness and Preventative Care STROKE [...] Assistance with quitting is available by contacting 7-205-WKMZ-NOW. This is a free resource providing counseling, [...] was given the opportunity to ask questions. Patient/Washtub Worker Name: Patient/Washtub Worker Signature: Relationship to Patient: Clinician/Hospital Washtub Worker Signature: Please Provide a Telephone Number Where You Can Be Reached: Is it Permissible To Leave a Message? Date: documented in this encounter Plan of Treatment Not on file documented as of this encounter Visit Diagnoses Not on filedocumented in this encounter
--- OUTSIDE RECORDS SUMMARY | 2025-04-14 11:20 | XMS_ITS | Encounter Summary ---
Author Organization [employer] ([place], [place], [place], [place]) Address [address] [place] [address] Care Team Providers Care Triage Rn Name Role Phone Unavailable Primary Care Provider Unavailabl e Encounter Details Date Type Department Care Team (Late st Contact Info) Description 06/03/2019 Transcribed Document [facility] [place] Family Medicine [address] [place] [address] ProviderRikki MD [address] [place], [place] [id number] Social History Tobacco Use Types Packs/Day Years [...] Conversion Note - Historical ProviderMD - 06/03/2019 10:46 AM CDT ED [...] EDT DCP GENERIC CODE Tracking Group : [facility] ED MARC GREENWOOD RN - 06/03/2019 [...] Recent Thoughts of Harming/Killing Others : No Transportation Manager Needed : No MARC GREENWOOD RN - [...] PNED ; Probability: 0 ; Diagnosis Code: [id number] ED Height and Weight Height Source : Stated Height Entry Format : [place] Height, Feet : 5 ft(Converted to: 152 cm, 60 Inch) Height, Inches : 3 Inch(Converted to: 0 ft 3 Inch, 7.62 cm) Clinical Height : 160.02 cm Weight Source, ED : Critical estimated dosing weight Weight Entry Format : [place] Weight, Pounds : 220 lb Clinical Dosing Weight : 100 kg Body Surface Area (BSA) : 2.02 m2 Body Mass Index : 39.1 kg/m2 (HI) Emma Body Weight (IBW) : 52.02 kg MARC [...]
--- OUTSIDE RECORDS SUMMARY | 2025-04-14 11:20 | XMS_ITS | Encounter Summary ---
Author Organization [employer] ([place], [place], [place], [place]) Address [address] [place] [address] Care Team Providers Care Automation Driver Name Role Phone Unavailable Primary Care Provider Unavailabl e Encounter Details Date Type Department Care Team (Late st Contact Info) Description 06/03/2019 Transcribed Document [facility] [place] [address] [place] [address] ProviderRikki MD [address] [place] [id number] Social History Tobacco Use Types Packs/Day Years [...] Communication Barrier : None Primary Language : Bahamian Any Spiritual/Cultural Needs or Requests : No [...] - 06/03/2019 11:10 EDT Electronically signed by [facility] Conversion Missile Pad Mechanic Cerner at 01/28/2023 10:51 PM CDT documented in this encounter Plan of Treatment Not on file documented as of this encounter Visit Diagnoses Not on filedocumented in this encounter
--- OUTSIDE RECORDS SUMMARY | 2025-04-14 11:20 | XMS_ITS | Encounter Summary ---
Author Organization [employer] ([place], [place], [place], [place]) Address [address] [place] [address] Care Team Providers Care Odd Shoe Examiner Name Role Phone Unavailable Primary Care Provider Unavailabl e Encounter Details Date Type Department Care Team (Late st Contact Info) Description 06/11/2019 Transcribed Document [facility] [place] [address] [place] [address] ProviderRikki MD [address] [place], [place] [address] Social History Tobacco Use Types Packs/Day Years Used Date Smoking Tobacco: Never Assessed Comments Unknown Sex and Gender Information Value Date Recorded Sex Assigned at Female 04/11/2022 6:48 PM CDT Legal Sex Female 6:48 PM CDT Gender Identity Female 04/11/2022 6:48 PM CDT Sexual Orientation Not on file documented as of this encounter Miscellaneous Notes * Cerner Conversion Note - Historical ProviderMD - 06/11/2019 9:55 AM CDT Event Note [...]
--- OUTSIDE RECORDS SUMMARY | 2025-04-14 11:20 | XMS_ITS | Encounter Summary ---
Author Organization [facility] Address [address] [place] [address] Care Team Providers Care Aluminum Molding Machine Operator Name Role Phone Valentin Danile MD Primary Care Provider [phone] Reason for Referral * Consultation (Routine) - Authorized Specialty Diagnoses / Procedures Referred By Giovani rose Referred To Contact Neurology Diagnoses Left foot drop Mechanical problems with limbs Polyneuropathy Valentin Daniel MD [address] [place] [address] Phone: tel: fax: Referral ID Status Reason Start Date Expiration Date Visits Requested Visits Authorized [id number] Authorized Specialty Services Required 02/16/2025 08/18/2026 1 1 Encounter Details Date Type Department Care Team (Late st Contact Info) Description 02/16/2025 [facility] [address] [place] [address] Valentin Daniel MD [address] [place] [address] Left foot drop (Primary Dx); Mechanical problems [...] Description 05/06/2025 1:20 PM EDT Office Visit [facility] Medicine Specialties [address] [place] [address] Angela Todd APRN [address] [place] [address] 10/30/2025 8:00 AM EST Consult [facility] [address] [place] [address] Sim Tillman MD [address] [place] [address] Scheduled Referrals Name Type Priority [...] documented as of this encounter Care Teams Aluminum Molding Machine Operator Relationship Specialty Start Date End Date Valentin Daniel MD PCP - General 09/18/22 documented as of this encounter
--- OUTSIDE RECORDS SUMMARY | 2025-04-14 11:20 | XMS_ITS | Encounter Summary ---
Author Organization [employer] ([place], [place], [place], [place]) Address [address] [place] [address] Care Team Providers Care Internal Control Consultant Name Role Phone Unavailable Primary Care Provider Unavailabl e Encounter Details Date Type Department Care Team (Late st Contact Info) Description 06/22/2021 Transcribed Document [facility] [place] [facility] [place] [address] ProviderRikki MD [address] [place] [address] Social History Tobacco Use Types Packs/Day [...] Montoya MD - 06/22/2021 2:03 AM CDT [facility] [place] [address] KASSI KONG :1970 Visit Time:06/21/2021 Your [...] Within 2 to 3 days Where: [place] [address]- [facility] (1) Allergies SUMAtriptan (Other Anaphylactic Shock, Other [...] range between ( 0.0 and 7.0 ) [place] #: 0.52 K/uL -- Normal range between ( 0.16 and 1.00 ) Eos #: 0.24 x10(3)/uL -- Normal range between ( 0.00 and 0.80 ) [place] %: 5.3 % -- Normal range between [...] these instructions at home: Medicines ??? Take bbjb-qfm-azzraft and prescription medicines only as told by [...] provider. Document Revised: 04/03/2019 Document Reviewed: 04/03/2019 Glowbl Patient Education ?? 2020 [employer]. Emergency Awareness and Preventative Care STROKE is [...] Assistance with quitting is available by contacting 5-198-OGCC-NOW. This is a free resource providing counseling, [...] was given the opportunity to ask questions. Patient/Manager Medical Writing Name: Patient/Manager Medical Writing Signature: Relationship to Patient: Clinician/Hospital Manager Medical Writing Signature: Please Provide a Telephone Number Where You Can Be Reached: Is it Permissible To Leave a Message? Date: documented in this encounter Plan of Treatment Not on file documented as of this encounter Visit Diagnoses Not on filedocumented in this encounter
--- OUTSIDE RECORDS SUMMARY | 2025-04-14 11:20 | XMS_ITS | Encounter Summary ---
Author Organization [employer] ([place], [place], [place], [place]) Address [address] [place] [address] Care Team Providers Care Requirements Analyst Name Role Phone Unavailable Primary Care Provider Unavailabl e Encounter Details Date Type Department Care Team (Late st Contact Info) Description 06/21/2021 Transcribed Document [facility] [place] [address] ProviderRikki MD [address] [place] [phone] Social History Tobacco Use Types Packs/Day Years [...] Historical ProviderMD - 06/21/2021 9:55 PM CDT ED [...] : 2 - Emergent Tracking Group : [facility] ED Jasmina Rao RN - 06/21/2021 22:09 [...] PNED ; Probability: 0 ; Diagnosis Code: [id number] ED Height and Weight Height Source : Stated Height Entry Format : [place] Height, Feet : 5 ft(Converted to: 152 cm, 60 Inch) Height, Inches : 3 Inch(Converted to: 0 ft 3 Inch, 7.62 cm) Clinical Height : 160.02 cm Weight Source, ED : Critical estimated dosing weight Weight Entry Format : [place] Weight, Pounds : 220 lb Clinical Dosing Weight : 100 kg Body Surface Area (BSA) : 2.02 m2 Body Mass Index : 39.1 kg/m2 (HI) [place] Body Weight (IBW) : 52.02 kg Jasmina Rao RN - 06/21/2021 22:09 EDT documented in this encounter Plan of Treatment Not on file documented as of this encounter Visit Diagnoses Not on filedocumented in this encounter
--- OUTSIDE RECORDS SUMMARY | 2025-04-14 11:20 | XMS_ITS | Clinical Summary ---
Author Organization [employer] ([place], [place], [place], [place]) Address [address] [place] [address] Care Team Providers Care Linter Operator Name Role Phone Unavailable Primary Care [...]
--- OUTSIDE RECORDS SUMMARY | 2025-04-14 11:20 | XMS_ITS | Encounter Summary ---
Author Organization [employer] ([place], [place], [place], [place]) Address [address] [place] [address] Care Team Providers Care Singe Machine Operator Name Role Phone Unavailable Primary Care Provider Unavailabl e Encounter Details Date Type Department Care Team (Late st Contact Info) Description 06/21/2021 Transcribed Document [facility] [place] [address] [place] [address] ProviderRikki MD [address] [place], [place] [id number] Social History Tobacco Use Types Packs/Day Years [...]
--- OUTSIDE RECORDS SUMMARY | 2025-04-14 11:20 | XMS_ITS | Encounter Summary ---
Author Organization [employer] ([place], [place], [place], [place]) Address [address] [place] [address] Care Team Providers Care Welt Treater Name Role Phone Unavailable Primary Care Provider Unavailabl e Encounter Details Date Type Department Care Team (Late st Contact Info) Description 06/03/2019 Transcribed Document [facility] [place] [facility] [place] [address] ProviderRikki MD [address] [place] [address] Social History Tobacco Use Types Packs/Day [...] Montoya MD - 06/03/2019 2:51 PM CDT [facility] [address] KASSI KONG :1970 Visit Time:06/03/2019 Your Visit Summary Your Care Team Admitting Physician - DRE POWER MARK, MD Attending Physician - MARIEL MCCRAY MD Primary Care Physician - ALVARADO STILES (REF), -[facility] Referring Physician - MARIEL MCCRAY MD [...] in the future. Where: [place] [address] [place] [address]- Allergies SUMAtriptan (Other Anaphylactic Shock, Other Anaphylactic [...] range between ( 0.0 and 7.0 ) [place] #: 0.44 K/uL -- Normal range between ( 0.16 and 1.00 ) Eos #: 0.28 x10(3)/uL -- Normal range between ( 0.00 and 0.80 ) [place] %: 5.2 % -- Normal range between [...] ) Urine Bilirubin Dipstick: Negative Urine Specific [place]: 1.021 -- Normal range between ( 1.005 [...] stand. This can reduce dizziness. ??? Take ytrr-svb-qxaoomi and prescription medicines only as told by [...] 10/01/2006 Document Revised: 03/08/2017 Document Reviewed: 06/14/2016 Wanamaker Interactive Patient Education ?? 2018 [employer] Inc. Head Injury, Adult There are many [...] Ask your health care provider for a shvw-vs-vhdr plan for gradually returning to activities. ??? [...] your friends, family, a trusted colleague, and voice network administrator about your injury, symptoms, and restrictions. Have them watch for any new or worsening problems. General instructions ??? Take zgod-yqo-cdwdulj and prescription medicines only as told by [...] 04/10/2017 Elsevier Interactive Patient Education ?? 2019 ElseNano [employer]ision [employer] Inc. Contusion A contusion is a deep [...] This is often called the RICE strategy. Fzjk-sof-wypudlu anti-inflammatory medicines may also be recommended for [...] are sitting or lying down. ??? Take xmld-slg-iodsmer and prescription medicines only as told by [...] 07/11/2006 Document Revised: 02/08/2017 Document Reviewed: 02/16/2016 Wanamaker Interactive Patient Education ?? 2019 [employer] Inc. Concussion, Adult A concussion is a [...] are taking any medicines, including prescription medicines, hwgl-ine-xlljhgm medicines, and natural remedies. Some medicines, such [...] returning to activities. General instructions ??? Take vnyt-kcu-rohjcdf and prescription medicines only as told by [...] Tell your teachers, school nurse, school counselor, instructional coach, head athletic trainer, or voice network administrator about your injury, symptoms, and restrictions. Tell [...] 12/21/2004 Document Revised: 09/11/2017 Document Reviewed: 09/11/2017 Wanamaker Interactive Patient Education ?? 2019 [employer] Inc. Emergency Awareness and Preventative Care STROKE [...] Assistance with quitting is available by contacting 6-285-CCOU-NOW. This is a free resource providing counseling, [...] was given the opportunity to ask questions. Patient/Supervisor Plating And Point Assembly Name: Patient/Supervisor Plating And Point Assembly Signature: Relationship to Patient: Clinician/Hospital Supervisor Plating And Point Assembly Signature: Please Provide a Telephone Number Where You Can Be Reached: Is it Permissible To Leave a Message? Date: documented in this encounter Plan of Treatment Not on file documented as of this encounter Visit Diagnoses Not on filedocumented in this encounter
--- OUTSIDE RECORDS SUMMARY | 2025-04-14 11:20 | XMS_ITS | Encounter Summary ---
Author Organization [employer] ([place], [place], [place], [place]) Address [address] [place] [address] Care Team Providers Care Floor Waxer Name Role Phone Unavailable Primary Care Provider Unavailabl e Encounter Details Date Type Department Care Team (Late st Contact Info) Description 06/22/2021 Transcribed Document [facility] [place] [facility] [place] [address] ProviderRikki MD [address] [place] [address] Social History Tobacco Use Types Packs/Day Years [...] Historical ProviderMD - 06/22/2021 2:00 AM CDT Electronically signed by Giacomo Azar Conversion Pin Ticket Machine Operator Rajwinder at 01/28/2023 10:48 PM CDT documented in this encounter Plan of Treatment Not on file documented as of this encounter Visit Diagnoses Not on filedocumented in this encounter
--- OUTSIDE RECORDS SUMMARY | 2025-04-14 11:20 | XMS_ITS | Encounter Summary ---
Author Organization [employer] ([place], [place], [place], [place]) Address [address] [place] [address] Care Team Providers Care Sleeve Sewer Name Role Phone Unavailable Primary Care Provider Unavailabl e Encounter Details Date Type Department Care Team (Late st Contact Info) Description 06/22/2021 Transcribed Document [facility] [place] [facility] [place] [address] ProviderRikki MD [address] [place] [phone] Social History Tobacco Use Types Packs/Day Years [...] Conversion Note - Historical ProviderMD - 06/22/2021 12:18 AM CDT Patient: [...] had a heart cath done by her mixer operator raw salt in [place] in February, she did not have any [...] EDT Height Source Stated Height Entry Format [place] Height/Length, EGYPTIAN (ft) 5 ft Height/Length EGYPTIAN 3 Inch CLINICALHEIGHT 160.02 cm [place] Body Weight 52.02 kg Weight Source, ED Critical estimated dosing weight Weight Entry Format [place] Weight Burundian lb 220 lb CLINICALWEIGHT 100 kg Body [...] Triage: ED C-SSRS: ED Clinical Reconciliation: ED sap hana architect: EKG: Normal Saline Flush: 10 mL, IV [...] % 30.8 % Lymph # 3.02 x10(3)/uL Daniels % 5.3 % Daniels # 0.52 K/uL Eos % 2.4 % [...]
--- OUTSIDE RECORDS SUMMARY | 2025-04-14 11:20 | XMS_ITS | Encounter Summary ---
Author Organization [employer] ([place], [place], [place], [place]) Address [address] [place] [address] Care Team Providers Care Grants And Contracts Assistant Name Role Phone Unavailable Primary Care Provider Unavailabl e Encounter Details Date Type Department Care Team (Late st Contact Info) Description 06/03/2019 Transcribed Document [facility] [place] [address] ProviderRikki MD [address] [place] [phone] Social History Tobacco Use Types Packs/Day Years [...] EDT Height Source Stated Height Entry Format [place] Height/Length, AFGHAN (ft) 5 ft Height/Length AFGHAN 3 Inch CLINICALHEIGHT 160.02 cm [place] Body Weight 52.02 kg Weight Source, ED Critical estimated dosing weight Weight Entry Format [place] Weight Central African lb 220 lb CLINICALWEIGHT 100 kg Body [...] Hand pain, wrist pain, fracture, sprain, contusion, [place], head injury, concussion,. Orders Include Previous Orders (Selected) Inpatient Orders Ordered EKG: Completed .Automated Differential: .Urinalysis Microscopic: CBC w/ Auto Diff: CMP Comprehensive Metabolic Panel: CR Hand Min 3 Vws RT: CT Head WO: Cardiac Monitoring: ED Adult Fall Risk Assessment: ED Adult Triage: ED Clinical Reconciliation: ED electroencephalographic technician: Normal Saline Flush: 10 mL, IV Push, [...] Color Yellow Urine Appearance Clear Urine Specific [place] 1.021 Urine pH Dipstick 7.5 Urine Leukocyte [...] % 30.2 % Lymph # 2.54 x10(3)/uL [place] % 5.2 % [place] # 0.44 K/uL Eos % 3.3 % [...] Fall Scale Risk Level 0-24 Low Risk [place] Fall Interventions Adequate lighting, Bed in low position, Call device within reach, Hourly comfort/safety rounds, Non-Slip footwear, Personal items within reach, Reinforced to call for assistance before getting out of bed, Room free of clutter/spills, Upper side-rails up, Wheels locked, Wires/Cords secured Fall Moderate to High Risk Interventions Patient room close to nurses station Communication Barrier None Primary Language [place] African Information Obtained From Patient Smoking Status Refused [...] air Height Source Stated Height Entry Format [place] Height/Length, AFGHAN (ft) 5 ft Height/Length AFGHAN 3 Inch CLINICALHEIGHT 160.02 cm [place] Body Weight 52.02 kg Weight Source, ED Critical estimated dosing weight Weight Entry Format [place] Weight [place] lb 220 lb CLINICALWEIGHT 100 kg Body [...] Ambulate Tracking Acuity 3 - Urgent (Modified) Prototype Engineer Manager Needed No Accompanied by Unaccompanied Mode of Arrival Ambulatory 06/03/2019 10:46 EDT Nurse Collect Order Detail 3.00 Nurse Collect Order Detail 3.00 . Radiology results: Radiology Results (Last 48 hours) [id number] -- 06/03/2019 10:45 CR Hand Min 3 [...] Adult, Syncope. Follow up with: ALVARADO STILES (REF)[facility] Within 2 to 3 days Patient [...]
--- OUTSIDE RECORDS SUMMARY | 2025-04-14 11:20 | XMS_ITS | Encounter Summary ---
Author Organization [employer] ([place], [place], [place], [place]) Address [address] [place] [address] Care Team Providers Care Financial Services Director Name Role Phone Unavailable Primary Care Provider Unavailabl e Encounter Details Date Type Department Care Team (Late st Contact Info) Description 06/03/2019 Transcribed Document [facility] [place] [address] ProviderRikki MD [address] [place], [place] [id number] Social History Tobacco Use Types Packs/Day Years [...]
--- OUTSIDE RECORDS SUMMARY | 2025-04-14 11:20 | XMS_ITS | Encounter Summary ---
Author Organization [employer] ([place], [place], [place], [place]) Address [address] [place] [address] Care Team Providers Care Sky Cap Name Role Phone Unavailable Primary Care Provider Unavailabl e Encounter Details Date Type Department Care Team (Late st Contact Info) Description 06/21/2021 Transcribed Document [place] Family Medicine [address] [place] [address] ProviderRikki MD [address] [place], [place] [id number] Social History Tobacco Use Types Packs/Day Years [...] Historical ProviderMD - 06/21/2021 9:55 PM CDT [place] Suicide Severity Rating Scale (C-SSRS) Entered On: 06/21/2021 22:29 EDT Performed On: 06/21/2021 22:27 EDT by Aruna Garcia [place] Suicide Severity Rating Scale (C-SSRS) CSSRS Past [...]
--- OUTSIDE RECORDS SUMMARY | 2025-04-14 11:20 | XMS_ITS | Clinical Summary ---
Author Organization [facility] Address [address] [place] [address] Care Team Providers Care Brick Extruder Operator Name Role Phone Valentin Daniel MD Primary Care Provider [phone] Allergies Active Allergy Reactions Criticality Noted Date [...] cream 01/21/20 21 Active ergocalciferol 1.25 MG (52421 UT) capsule TAKE ONE CAPSULE BY MOUTH EVERY WEEK DIRECTED 03/01/20 21 Active HYDROcodone-acetam inophen ([place]) 10-325 MG tablet TAKE ONE TABLET BY [...] MG tablet 01/28/20 24 Active nystatin (Mycostatin) 488496 UNIT/GM powder 02/01/20 24 Active omeprazole (PriLOSEC) [...] Date Type Department Care Team Description 02/16/2025 [facility] [address] [place] [address] Valentin Daniel MD Left foot drop (Primary Dx); Mechanical problems with limbs; Polyneuropathy 02/05/2025 [facility] [address] [place] [address] Valentin Daniel MD Polyneuropathy (Primary Dx); Foot drop, left foot 01/15/2025 Refill [facility] [address] [place] [address] Angela Todd APRN from Last [...] 1:20 PM EDT Office Visit [facility] [address], [address] [place] [address] Angela Todd, ANGELITO [address] [place] [address] 10/30/2025 8:00 AM EST Consult [facility] [address], [address] [place] [address] Sim Tillman MD [address] [place] [address] Health Maintenance Due Date Last Done Comments [facility]-HIV Screening 1970 [facility]-Hepatitis C Screening 1970 [facility]-Infant/Child/Adol SDOH Screenings 1970 [facility]- SDOH Screenings 1989 [...] (2 - Td or Tdap) 06/20/2021 06/20/2011 [id number] Vaccine (4 - season) 2024 07/14/2021, 11/17/2020, [...] MRSA 04/20/2021 04/20/2021 Insurance AETNA Care Teams Brick Extruder Operator Relationship Specialty Start Date End Date Valentin Daniel MD PCP - General 09/18/22
--- OUTSIDE RECORDS SUMMARY | 2025-04-14 11:20 | XMS_ITS | Referral Summary ---
Author Organization [employer] ([place], [place], [place], [place]) Address [address] [place] [address] Care Team Providers Care Educational Audiologist Name Role Phone Unavailable Primary Care Provider [...]
--- OUTSIDE RECORDS SUMMARY | 2025-04-14 11:20 | XMS_ITS | Encounter Summary ---
Author Organization [employer] ([place], [place], [place]) Address [address] [place] [address] Care Team Providers Care Sales And In Home Delivery Specialist Name Role Phone Unavailable Primary Care Provider Unavailabl e Encounter Details Date Type Department Care Team (Late st Contact Info) Description 06/22/2021 Transcribed Document [facility] [place] [address] ProviderRikki MD [address] [place] [address] [phone] Social History Tobacco Use Types Packs/Day Years [...]
--- OUTSIDE RECORDS SUMMARY | 2025-04-14 11:20 | XMS_ITS | Encounter Summary ---
Author Organization [employer] ([place] Address [address] [place] [address] Care Team Providers Care Contracting Officer Name Role Phone Unavailable Primary Care Provider Unavailabl e Encounter Details Date Type Department Care Team (Late st Contact Info) Description 06/03/2019 Transcribed Document [facility] [place] [address] ProviderRikki MD [address] [place] [address] [phone] Social History Tobacco Use Types Packs/Day Years [...] Conversion Note - Historical ProviderMD - 06/03/2019 3:02 PM CDT ED Discharge [...] NEVILLE CHOE RN - 06/03/2019 15:02 EDT Electronically signed by Doe [facility] Conversion Health And Wellness Instructor Cerner at 01/28/2023 11:05 PM CDT documented in this encounter Plan of Treatment Not on file documented as of this encounter Visit Diagnoses Not on filedocumented in this encounter
--- OUTSIDE RECORDS SUMMARY | 2025-04-14 11:20 | XMS_ITS | Encounter Summary ---
Author Organization [employer] ([place]) Address [address] [place] [address] Care Team Providers Care School Coordinator Name Role Phone Unavailable Primary Care Provider Unavailabl e Encounter Details Date Type Department Care Team (Late st Contact Info) Description 06/21/2021 Transcribed Document [facility] [place] [address] ProviderRikki MD [address] [place] [phone] Social History Tobacco Use Types Packs/Day Years [...] Communication Barrier : None Primary Language : Armenian Any Spiritual/Cultural Needs or Requests : No [...] EDT Electronically signed by Giacomo Azar Conversion Multiple Spindle Screw Machine Operator Cerner at 01/28/2023 10:52 PM CDT documented in this encounter Plan of Treatment Not on file documented as of this encounter Visit Diagnoses Not on filedocumented in this encounter
--- OUTSIDE RECORDS SUMMARY | 2025-04-14 11:20 | XMS_ITS | Encounter Summary ---
Author Organization [facility] Address [address] [place] [address] Care Team Providers Care Watch Repairer Name Role Phone Valentin Daniel MD Primary Care Provider [phone] Encounter Details Date Type Department Care Team (Latest Contact Info) Description 02/05/2025 Community [facility] [address] [place] [address] Valentin Daniel MD [address] [place] [address] Polyneuropathy (Primary Dx); Foot drop, left foot [...] Description 05/06/2025 1:20 PM EDT [facility] [address], [address] [place] [address] Angela Todd, ASSISTANT FITNESS MANAGER [address] [place] [address] 10/30/2025 8:00 AM EST Consult [facility] [address], [address] [place] [address] Sim Tillman MD [address] [place] [address] documented as of this encounter [...] documented as of this encounter Care Teams Watch Repairer Relationship Specialty Start Date End Date Valentin Daniel MD PCP - General 09/18/22 documented as of this encounter
--- NOTE | 2025-04-14 11:44 | XR_ITS ---
FINAL REPORT CLINICAL HISTORY: ankle fracture, fu x 10 days COMPARISON: 04/05/2025 FINDINGS: LEFT ANKLE Three views demonstrate that in the interval since the prior exam a cast has been placed overlying the left foot and ankle, which slightly obscures bony detail. There is a nondisplaced transverse fracture of the inferior aspect of the lateral malleolus, stable since the prior exam. The visualized joint spaces are normally aligned. The soft tissues are unremarkable. IMPRESSION: No significant change in the transverse fracture of the lateral malleolus as described. Reviewed, Interpreted and Dictated by David Bee MD Transcribed by Kelly Masters Authenticated and . [facility]
[2025-04-14 12:33] LABS: PHA INR Fingerstick 2.5 (0.9-1.1)
== END 2025-04-14 12:34 ==
LOC: ACC 11:18
PROVIDERS: PCP Family Medicine; Visit Provider Family Medicine
DX: S82.62XA Displaced fracture of lateral malleolus of left fibula, initial encounter for closed fracture (principal); G45.9 Transient cerebral ischemic attack, unspecified
CPT/HCPCS: 73610; 85610; 99211; G0463

== ENCOUNTER 2025-04-15 11:10 | Outpatient (POV) | payer OTHER, SELFPAY ==
--- OUTSIDE RECORDS SUMMARY | 2025-04-15 11:17 | XMS_ITS | Encounter Summary ---
Author Organization [employer] ([place]) Address [address] [place] [address] Care Team Providers Care Design Lead Name Role Phone Unavailable Primary Care Provider Unavailabl e Encounter Details Date Type Department Care Team (Late st Contact Info) Description 06/21/2021 Transcribed Document [facility] [address] [place] [address] ProviderRikki MD [address] [place], [place] [phone] Social History Tobacco Use Types Packs/Day Years [...] Historical ProviderMD - 06/21/2021 9:55 PM CDT [place] Suicide Severity Rating Scale (C-SSRS) Entered On: 06/21/2021 22:29 EDT Performed On: 06/21/2021 22:27 EDT by Aruna Garcia [place] Suicide Severity Rating Scale (C-SSRS) CSSRS Past Month Wish to be : No CSSRS Past Month Suicidal Thoughts : No CSSRS Lifetime Suicide Behavior : No Suicide Severity Rating Score : 0 Suicide Severity Rating : No Additional Care Required at this time Aruna Garcia - 06/21/2021 22:27 EDT Electronically signed by Giacomo Azar Conversion Otr Owner Operator Truck Driver Cerner at 01/28/2023 10:57 PM CDT documented in this encounter Plan of Treatment Not on file documented as of this encounter Visit Diagnoses Not on filedocumented in this encounter
--- OUTSIDE RECORDS SUMMARY | 2025-04-15 11:17 | XMS_ITS | Clinical Summary ---
Author Organization [employer] ([place]) Address [address] [place] [address] Care Team Providers Care Corporate Treasury Analyst Name Role Phone Unavailable Primary Care [...]
--- OUTSIDE RECORDS SUMMARY | 2025-04-15 11:17 | XMS_ITS | Encounter Summary ---
Author Organization [employer] ([place]) Address [address] [place] [address] Care Team Providers Care Hosted Services Analyst Name Role Phone Unavailable Primary Care Provider Unavailabl e Encounter Details Date Type Department Care Team (Late st Contact Info) Description 06/22/2021 Transcribed Document [facility] [address] ProviderRikki MD [address] [place] [address] [phone] Social History Tobacco Use Types Packs/Day Years [...]
--- OUTSIDE RECORDS SUMMARY | 2025-04-15 11:17 | XMS_ITS | Encounter Summary ---
Author Organization [employer] ([place] Address [address] [place] [address] Care Team Providers Care Entry Level Account Representative Name Role Phone Unavailable Primary Care Provider Unavailabl e Encounter Details Date Type Department Care Team (Late st Contact Info) Description 06/11/2019 Transcribed Document [facility] Family Medicine [address] [place] [address] ProviderRikki MD [address] [place], [place] [address]001 Social History Tobacco Use Types Packs/Day Years [...]
--- OUTSIDE RECORDS SUMMARY | 2025-04-15 11:17 | XMS_ITS | Encounter Summary ---
Author Organization [employer] ([place] Address [address] [place] [address] Care Team Providers Care Print Washer Name Role Phone Unavailable Primary Care Provider Unavailabl e Encounter Details Date Type Department Care Team (Late st Contact Info) Description 06/22/2021 Transcribed Document [facility] [place] [address] ProviderRikki MD [address] [place] [address] [phone] Social History Tobacco Use Types Packs/Day Years [...]
--- OUTSIDE RECORDS SUMMARY | 2025-04-15 11:17 | XMS_ITS | Encounter Summary ---
Author Organization [employer] ([place]) Address [address] [place] [address] Care Team Providers Care Sheetmetal Patternmaker Name Role Phone Unavailable Primary Care Provider Unavailabl e Encounter Details Date Type Department Care Team (Late st Contact Info) Description 06/22/2021 Transcribed Document [facility] [place] [facility] [place] [address] ProviderRikki MD [address] [place] [address] [phone] Social History Tobacco Use Types Packs/Day Years [...]
--- OUTSIDE RECORDS SUMMARY | 2025-04-15 11:17 | XMS_ITS | Encounter Summary ---
Author Organization [employer] ([place], [place], [place], [place]) Address [address] [place] [address] Care Team Providers Care Search Engine Marketing Strategist Name Role Phone Unavailable Primary Care Provider Unavailabl e Encounter Details Date Type Department Care Team (Late st Contact Info) Description 06/03/2019 Transcribed Document [facility] [place] [facility] [place] [address] ProviderRikki MD [address] [place] [address] Social History Tobacco Use Types Packs/Day [...] Montoya MD - 06/03/2019 2:51 PM CDT [facility] [address] KASSI KONG :1970 Visit Time:06/03/2019 Your Visit Summary Your Care Team Admitting Physician - DRE POWER MARK, MD Attending Physician - MARIEL MCCRAY MD Primary Care Physician - ALVARADO STILES (REF), -[facility] Referring Physician - MARIEL MCCRAY MD [...] in the future. Where: [place] [place] [address]- Allergies SUMAtriptan (Other Anaphylactic Shock, Other Anaphylactic [...] range between ( 0.0 and 7.0 ) [place] #: 0.44 K/uL -- Normal range between ( 0.16 and 1.00 ) Eos #: 0.28 x10(3)/uL -- Normal range between ( 0.00 and 0.80 ) [place] %: 5.2 % -- Normal range between [...] ) Urine Bilirubin Dipstick: Negative Urine Specific Bode: 1.021 -- Normal range between ( 1.005 [...] stand. This can reduce dizziness. ??? Take uqle-yud-wxqaumj and prescription medicines only as told by [...] 10/01/2006 Document Revised: 03/08/2017 Document Reviewed: 06/14/2016 [employer] Interactive Patient Education ?? 2018 [employer] Head Injury, Adult There are many [...] Ask your health care provider for a axek-ni-wkky plan for gradually returning to activities. ??? [...] your friends, family, a trusted colleague, and matrix worker about your injury, symptoms, and restrictions. Have them watch for any new or worsening problems. General instructions ??? Take ybyo-hox-gsvgsoj and prescription medicines only as told by [...] 04/10/2017 Else[employer] Interactive Patient Education ?? 2019 [employer] Contusion A contusion is a deep [...] This is often called the RICE strategy. Owbt-niu-pyjeymd anti-inflammatory medicines may also be recommended for [...] are sitting or lying down. ??? Take qwjl-vqt-ckghcmq and prescription medicines only as told by [...] 07/11/2006 Document Revised: 02/08/2017 Document Reviewed: 02/16/2016 [employer] Interactive Patient Education ?? 2019 [employer] Concussion, Adult A concussion is a [...] are taking any medicines, including prescription medicines, twfm-hnu-ohddnjl medicines, and natural remedies. Some medicines, such [...] returning to activities. General instructions ??? Take zvnd-ddr-ottyrrt and prescription medicines only as told by [...] Tell your teachers, school nurse, school counselor, kids activities coach, strainer cleaner, or matrix worker about your injury, symptoms, and restrictions. [...] 12/21/2004 Document Revised: 09/11/2017 Document Reviewed: 09/11/2017 [employer] Interactive Patient Education ?? 2019 [employer] Emergency Awareness and Preventative Care STROKE [...] Assistance with quitting is available by contacting 6-317-KVCM-NOW. This is a free resource providing counseling, [...] was given the opportunity to ask questions. Patient/Electrical And Radio Aircraft Mechanic Name: Patient/Electrical And Radio Aircraft Mechanic Signature: Relationship to Patient: Clinician/Hospital Electrical And Radio Aircraft Mechanic Signature: Please Provide a Telephone Number Where You Can Be Reached: Is it Permissible To Leave a Message? Date: documented in this encounter Plan of Treatment Not on file documented as of this encounter Visit Diagnoses Not on filedocumented in this encounter
--- OUTSIDE RECORDS SUMMARY | 2025-04-15 11:17 | XMS_ITS | Encounter Summary ---
Author Organization [facility] ([place], [place], [place] Address [address] [place] [address] Care Team Providers Care Linseed Cake Trimmer Name Role Phone Unavailable Primary Care Provider Unavailabl e Encounter Details Date Type Department Care Team (Late st Contact Info) Description 06/21/2021 Transcribed Document [facility] [place] [facility] [address] ProviderRikki MD [address] [place] [address] [phone] Social History Tobacco Use Types Packs/Day Years [...] : 2 - Emergent Tracking Group : [facility] ED Jasmina Rao RN - 06/21/2021 [...] PNED ; Probability: 0 ; Diagnosis Code: [id number] ED Height and Weight Height Source : Stated Height Entry Format : [place] Height, Feet : 5 ft(Converted to: 152 cm, 60 Inch) Height, Inches : 3 Inch(Converted to: 0 ft 3 Inch, 7.62 cm) Clinical Height : 160.02 cm Weight Source, ED : Critical estimated dosing weight Weight Entry Format : [place] Weight, Pounds : 220 lb Clinical Dosing Weight : 100 kg Body Surface Area (BSA) : 2.02 m2 Body Mass Index : 39.1 kg/m2 (HI) [place] Body Weight (IBW) : 52.02 kg Jasmina Rao RN - 06/21/2021 22:09 EDT documented in this encounter Plan of Treatment Not on file documented as of this encounter Visit Diagnoses Not on filedocumented in this encounter
--- OUTSIDE RECORDS SUMMARY | 2025-04-15 11:17 | XMS_ITS | Referral Summary ---
Author Organization [employer] ([place], [place], [place]) Address [address] [place] [address] Care Team Providers Care Sugar Refiner Name Role Phone Unavailable Primary Care Provider [...]
--- OUTSIDE RECORDS SUMMARY | 2025-04-15 11:17 | XMS_ITS | Encounter Summary ---
Author Organization [employer] ([place], [place]) Address [address] [place] [address] Care Team Providers Care Site Technician Name Role Phone Unavailable Primary Care Provider Unavailabl e Encounter Details Date Type Department Care Team (Late st Contact Info) Description 06/21/2021 Transcribed Document [facility] [place] [address] [place] [address] ProviderRikki MD [address] [place], [place] [address]191 Social History Tobacco Use Types Packs/Day Years [...]
--- OUTSIDE RECORDS SUMMARY | 2025-04-15 11:17 | XMS_ITS | Encounter Summary ---
Author Organization [employer] ([place], [place], [place]) Address [address] [place] [address] Care Team Providers Care Container Crane Operator Name Role Phone Unavailable Primary Care Provider Unavailabl e Encounter Details Date Type Department Care Team (Late st Contact Info) Description 06/03/2019 Transcribed Document [facility] [place] [address] [place] [address] ProviderRikki MD [address] [place], [place] [phone] Social History Tobacco Use Types Packs/Day Years [...] EDT DCP GENERIC CODE Tracking Group : [facility] ED MARC GREENWOOD RN - 06/03/2019 [...] Recent Thoughts of Harming/Killing Others : No Astronomy Instructor Needed : No MARC GREENWOOD RN - [...] PNED ; Probability: 0 ; Diagnosis Code: [id number] ED Height and Weight Height Source : Stated Height Entry Format : [place] Height, Feet : 5 ft(Converted to: 152 cm, 60 Inch) Height, Inches : 3 Inch(Converted to: 0 ft 3 Inch, 7.62 cm) Clinical Height : 160.02 cm Weight Source, ED : Critical estimated dosing weight Weight Entry Format : [place] Weight, Pounds : 220 lb Clinical Dosing Weight : 100 kg Body Surface Area (BSA) : 2.02 m2 Body Mass Index : 39.1 kg/m2 (HI) [place] Body Weight (IBW) : 52.02 kg MARC [...] the text rendition version of the form. Electronically signed by Giacomo Azar Conversion Carbon Capture Power Plant Operator Cerner at 01/28/2023 10:51 PM CDT documented in this encounter Plan of Treatment Not on file documented as of this encounter Visit Diagnoses Not on filedocumented in this encounter
--- OUTSIDE RECORDS SUMMARY | 2025-04-15 11:17 | XMS_ITS | Clinical Summary ---
Author Organization [facility] Address [address] [place] [address] Care Team Providers Care Film Processing Utility Worker Name Role Phone Valentin Daniel MD Primary Care Provider [phone] Allergies Active Allergy Reactions Criticality Noted Date [...] cream 01/21/20 21 Active ergocalciferol 1.25 MG (47085 UT) capsule TAKE ONE CAPSULE BY MOUTH EVERY WEEK DIRECTED 03/01/20 21 Active HYDROcodone-acetam inophen ([place]) 10-325 MG tablet TAKE ONE TABLET BY [...] MG tablet 01/28/20 24 Active nystatin (Mycostatin) 078356 UNIT/GM powder 02/01/20 24 Active omeprazole (PriLOSEC) [...] Type Department Care Team Description 02/16/2025 [facility] [address] [place] [address] Valentin Daniel MD Left foot drop (Primary Dx); Mechanical problems with limbs; Polyneuropathy 02/05/2025 [facility] [address] [place] [address] Valentin Daniel MD Polyneuropathy (Primary Dx); Foot drop, left foot 01/15/2025 Refill [facility] Medicine Specialties [address] [place] [address] Angela Todd APRN from Last [...] Description 05/06/2025 1:20 PM EDT Office Visit [facility] Specialties [address], [address] [place] [address] Angela Todd, ANGELITO [address] [place] [address] 10/30/2025 8:00 AM EST Consult [facility] [address], [address] [place] [address] Sim Tillman MD [address] [place] [address] Health Maintenance Due Date Last Done Comments [...] (2 - Td or Tdap) 06/20/2021 06/20/2011 [id number] Vaccine (4 - season) 2024 07/14/2021, 11/17/2020, [...] MRSA 04/20/2021 04/20/2021 Insurance AETNA Care Teams Film Processing Utility Worker Relationship Specialty Start Date End Date Valentin Daniel MD PCP - General 09/18/22
--- OUTSIDE RECORDS SUMMARY | 2025-04-15 11:17 | XMS_ITS | Encounter Summary ---
Author Organization [facility] Address [address] [place] [address] Care Team Providers Care Chandelier Maker Name Role Phone Valentin Daniel MD Primary Care Provider [phone] Encounter Details Date Type Department Care Team (Latest Contact Info) Description 02/05/2025 Community [facility] Community Practice [address] [place] [address] Valentin Daniel MD [address] [place] [address] Polyneuropathy (Primary Dx); Foot drop, left foot [...] Description 05/06/2025 1:20 PM EDT Office Visit [facility] [address], [address] [place] [address] Angela Todd, HIGH SCHOOL INDUSTRIAL ARTS TEACHER [address] [place] [address] 10/30/2025 8:00 AM EST Consult [facility] [address] [place] [address] Sim Tillman MD [address] [place] [address] documented as of this encounter [...] documented as of this encounter Care Teams Chandelier Maker Relationship Specialty Start Date End Date Valentin Daniel MD PCP - General 09/18/22 documented as of this encounter
--- OUTSIDE RECORDS SUMMARY | 2025-04-15 11:17 | XMS_ITS | Encounter Summary ---
Author Organization [employer] ([place], [place], [place], [place]) Address [address] [place] [address] Care Team Providers Care Activity Assistant Name Role Phone Unavailable Primary Care Provider Unavailabl e Encounter Details Date Type Department Care Team (Late st Contact Info) Description 06/22/2021 Transcribed Document [facility] [place] Medicine [facility] [place] [address] ProviderRikki MD [address] [place] [address] Social History Tobacco Use Types Packs/Day [...] Montoya MD - 06/22/2021 2:03 AM CDT [facility] [place] [address] KASSI KONG :1970 Visit Time:06/21/2021 Your [...] 2 to 3 days Where: [place] [address]- [facility] (1) Allergies SUMAtriptan (Other Anaphylactic [...] range between ( 0.0 and 7.0 ) [place] #: 0.52 K/uL -- Normal range between ( 0.16 and 1.00 ) [place]os #: 0.24 x10(3)/uL -- Normal range between ( 0.00 and 0.80 ) [place] %: 5.3 % -- Normal range between [...] these instructions at home: Medicines ??? Take jxgk-ulz-xvottgt and prescription medicines only as told by [...] provider. Document Revised: 04/03/2019 Document Reviewed: 04/03/2019 [employer] Patient Education ?? 2020 [employer]. Emergency Awareness and Preventative Care STROKE is [...] Assistance with quitting is available by contacting 6-275-TDWY-NOW. This is a free resource providing counseling, [...] was given the opportunity to ask questions. Patient/Food Service Hotel Runner Name: Patient/Food Service Hotel Runner Signature: Relationship to Patient: Clinician/Hospital Food Service Hotel Runner Signature: Please Provide a Telephone Number Where You Can Be Reached: Is it Permissible To Leave a Message? Date: documented in this encounter Plan of Treatment Not on file documented as of this encounter Visit Diagnoses Not on filedocumented in this encounter
--- OUTSIDE RECORDS SUMMARY | 2025-04-15 11:17 | XMS_ITS | Encounter Summary ---
Author Organization [employer] ([place], [place], [place], [place]) Address [address] [place] [address] Care Team Providers Care Country Printer Apprentice Name Role Phone Unavailable Primary Care Provider Unavailabl e Encounter Details Date Type Department Care Team (Late st Contact Info) Description 06/03/2019 Transcribed Document [facility] [place] [place] [address] ProviderRikki MD [address] [place] [address] [id number] Social History Tobacco Use Types Packs/Day Years [...]
--- OUTSIDE RECORDS SUMMARY | 2025-04-15 11:17 | XMS_ITS | Encounter Summary ---
Author Organization [employer] ([place], [place], [place], [place]) Address [address] [place] [address] Care Team Providers Care Biochemical Development Engineer Name Role Phone Unavailable Primary Care Provider Unavailabl e Encounter Details Date Type Department Care Team (Late st Contact Info) Description 06/03/2019 Transcribed Document [facility] [place] Family Medicine [facility] [place] [address] ProviderRikki MD [address] [place] [address] [phone] Social History Tobacco Use Types Packs/Day Years [...] 06/03/2019 15:02 EDT Electronically signed by [facility] Conversion Certified First Assistant Cerner at 01/28/2023 11:05 PM CDT documented in this encounter Plan of Treatment Not on file documented as of this encounter Visit Diagnoses Not on filedocumented in this encounter
--- OUTSIDE RECORDS SUMMARY | 2025-04-15 11:17 | XMS_ITS | Encounter Summary ---
Author Organization [employer] ([place], [place], [place], [place]) Address [address] [place] [address] Care Team Providers Care Buckle Gluer Name Role Phone Unavailable Primary Care Provider Unavailabl e Encounter Details Date Type Department Care Team (Late st Contact Info) Description 06/03/2019 Transcribed Document [facility] [place] Family Medicine [facility] [place] [address] ProviderRikki MD [address] [place] [address] [phone] Social History Tobacco Use Types Packs/Day Years [...] EDT Height Source Stated Height Entry Format Jasper Height/Length, TOGOLESE (ft) 5 ft Height/Length TOGOLESE 3 Inch CLINICALHEIGHT 160.02 cm [place] Body Weight 52.02 kg Weight Source, ED Critical estimated dosing weight Weight Entry Format [place] Weight Latvian lb 220 lb CLINICALWEIGHT 100 kg Body [...] Hand pain, wrist pain, fracture, sprain, contusion, PA, head injury, concussion,. Orders Include Previous Orders (Selected) Inpatient Orders Ordered EKG: Completed .Automated Differential: .Urinalysis Microscopic: CBC w/ Auto Diff: CMP Comprehensive Metabolic Panel: CR Hand Min 3 Vws RT: CT Head WO: Cardiac Monitoring: ED Adult Fall Risk Assessment: ED Adult Triage: ED Clinical Reconciliation: ED director broadcast: Normal Saline Flush: 10 mL, IV Push, [...] Color Yellow Urine Appearance Clear Urine Specific [place] 1.021 Urine pH Dipstick 7.5 Urine Leukocyte [...] % 30.2 % Lymph # 2.54 x10(3)/uL [place] % 5.2 % [place] # 0.44 K/uL Eos % 3.3 % [...] Fall Scale Risk Level 0-24 Low Risk [place] Fall Interventions Adequate lighting, Bed in low position, Call device within reach, Hourly comfort/safety rounds, Non-Slip footwear, Personal items within reach, Reinforced to call for assistance before getting out of bed, Room free of clutter/spills, Upper side-rails up, Wheels locked, Wires/Cords secured Fall Moderate to High Risk Interventions Patient room close to nurses station Communication Barrier None Primary Language Latvian Information Obtained From Patient Smoking Status Refused [...] air Height Source Stated Height Entry Format [place] Height/Length, TOGOLESE (ft) 5 ft Height/Length TOGOLESE 3 Inch CLINICALHEIGHT 160.02 cm [place] Body Weight 52.02 kg Weight Source, ED Critical estimated dosing weight Weight Entry Format [place] Weight Latvian lb 220 lb CLINICALWEIGHT 100 kg Body [...] Ambulate Tracking Acuity 3 - Urgent (Modified) Metal Alloy Scientist Needed No Accompanied by Unaccompanied Mode of Arrival Ambulatory 06/03/2019 10:46 EDT Nurse Collect Order Detail 3.00 Nurse Collect Order Detail 3.00 . Radiology results: Radiology Results (Last 48 hours) [id number] -- 06/03/2019 10:45 CR Hand Min 3 [...] Adult, Syncope. Follow up with: ALVARADO STILES (REF)[facility] Within 2 to 3 days Patient [...]
--- OUTSIDE RECORDS SUMMARY | 2025-04-15 11:17 | XMS_ITS | Encounter Summary ---
Author Organization [facility] Address [address] [place] [address] Care Team Providers Care Learn To Swim Instructor Name Role Phone Valentin Daniel MD Primary Care Provider [phone] Reason for Referral * Consultation (Routine) - Authorized Specialty Diagnoses / Procedures Referred By Giovani rose Referred To Contact Neurology Diagnoses Left foot drop Mechanical problems with limbs Polyneuropathy Valentin Daniel MD [address] [place] [id number] Phone: tel: fax: Referral ID Status Reason Start Date Expiration Date Visits Requested Visits Authorized [id number] Authorized Specialty Services Required 02/16/2025 08/18/2026 1 1 Encounter Details Date Type Department Care Team (Late st Contact Info) Description 02/16/2025 Community [facility] [address] [place] [address] Valentin Daniel MD [address] [place] [address] Left foot drop (Primary Dx); Mechanical problems [...] Description 05/06/2025 1:20 PM EDT Office Visit [facility] Medicine Specialties [address] [place] [address] Angela Todd APRN [address] [place] [address] 10/30/2025 8:00 AM EST Consult [facility] [address] [place] [address] Sim Tillman MD [address] [place] [address] Scheduled Referrals Name Type Priority [...] documented as of this encounter Care Teams Learn To Swim Instructor Relationship Specialty Start Date End Date Valentin Daniel MD PCP - General 09/18/22 documented as of this encounter
--- OUTSIDE RECORDS SUMMARY | 2025-04-15 11:17 | XMS_ITS | Encounter Summary ---
Author Organization [employer] ([place], [place], [place], [place]) Address [address] [place] [address] Care Team Providers Care Account Liaison Name Role Phone Unavailable Primary Care Provider Unavailabl e Encounter Details Date Type Department Care Team (Late st Contact Info) Description 06/21/2021 Transcribed Document [facility] [place] Family Medicine [facility] [place] [address] ProviderRikki MD [address] [place] [address] [phone] Social History Tobacco Use Types Packs/Day Years [...] Communication Barrier : None Primary Language : Spanish Any Spiritual/Cultural Needs or Requests : No [...]
--- OUTSIDE RECORDS SUMMARY | 2025-04-15 11:17 | XMS_ITS | Encounter Summary ---
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 Name Role Phone Unavailable Primary Care Provider Unavailabl e Encounter Details Date Type Department Care Team (Late st Contact Info) Description 06/22/2021 Transcribed Document [facility] [place] [facility] [place] [address] ProviderRikki MD [address] [place] [address] [phone] Social History Tobacco Use Types Packs/Day Years [...] had a heart cath done by her double needle operator lockstitch in [place] in February, she did not have any [...] EDT Height Source Stated Height Entry Format [place] Height/Length, DJIBOUTIAN (ft) 5 ft Height/Length DJIBOUTIAN 3 Inch CLINICALHEIGHT 160.02 cm [place] Body Weight 52.02 kg Weight Source, ED Critical estimated dosing weight Weight Entry Format [place] Weight [place] lb 220 lb CLINICALWEIGHT 100 kg Body [...] Triage: ED C-SSRS: ED Clinical Reconciliation: ED car 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
--- OUTSIDE RECORDS SUMMARY | 2025-04-15 11:17 | XMS_ITS | Encounter Summary ---
Author Organization [employer] ([place], [place], [place], [place]) Address [address] [place] [address] Care Team Providers Care Practice Physician Name Role Phone Unavailable Primary Care Provider Unavailabl e Encounter Details Date Type Department Care Team (Late st Contact Info) Description 06/03/2019 Transcribed Document [facility] [place] Family Medicine [facility] [place] [address] ProviderRikki MD [address] [place] [id number] Social History Tobacco Use Types Packs/Day [...] Montoya MD - 06/03/2019 2:51 PM CDT [facility] [place] [address] KASSI KONG :1970 Visit Time:06/03/2019 Your Visit Summary Your Care Team Admitting Physician - DRE POWER MARK, MD Attending Physician - MARIEL MCCRAY MD Primary Care Physician - ALVARADO STILES (REF), -[facility] Referring Physician - MARIEL MCCRAY MD [...] in the future. Where: [place] [place] [address]- Allergies SUMAtriptan (Other Anaphylactic Shock, Other Anaphylactic [...] range between ( 0.0 and 7.0 ) Cloud #: 0.44 K/uL -- Normal range between ( 0.16 and 1.00 ) Eos #: 0.28 x10(3)/uL -- Normal range between ( 0.00 and 0.80 ) Cloud %: 5.2 % -- Normal range between [...] ) Urine Bilirubin Dipstick: Negative Urine Specific [place]: 1.021 -- Normal range between ( 1.005 [...] stand. This can reduce dizziness. ??? Take obqy-rod-wwgjmlo and prescription medicines only as told by [...] 10/01/2006 Document Revised: 03/08/2017 Document Reviewed: 06/14/2016 [employer] Interactive Patient Education ?? 2018 [employer] Head Injury, Adult There are many [...] Ask your health care provider for a smya-ap-alrn plan for gradually returning to activities. ??? [...] your friends, family, a trusted colleague, and community development worker about your injury, symptoms, and restrictions. Have them watch for any new or worsening problems. General instructions ??? Take gvgi-lci-embvqqa and prescription medicines only as told by [...] 04/10/2017 Elsevier Interactive Patient Education ?? 2019 [employer] Contusion A contusion is a deep [...] This is often called the RICE strategy. Iugo-oqw-uwxgobj anti-inflammatory medicines may also be recommended for [...] are sitting or lying down. ??? Take jhfn-kno-wijwidl and prescription medicines only as told by [...] 07/11/2006 Document Revised: 02/08/2017 Document Reviewed: 02/16/2016 [employer] Patient Education ?? 2019 [employer] Concussion, Adult A concussion is a [...] are taking any medicines, including prescription medicines, paik-qth-hhvcfpd medicines, and natural remedies. Some medicines, such [...] returning to activities. General instructions ??? Take mtqo-gjw-uebfdhp and prescription medicines only as told by [...] Tell your teachers, school nurse, school counselor, nutritional health coach, care trainer, or community development worker about your injury, symptoms, and restrictions. [...] 12/21/2004 Document Revised: 09/11/2017 Document Reviewed: 09/11/2017 [employer] Interactive Patient Education ?? 2019 [employer] Emergency Awareness and Preventative Care STROKE [...] Assistance with quitting is available by contacting 7-255-VDCL-NOW. This is a free resource providing counseling, [...] was given the opportunity to ask questions. Patient/Account Development Representative Name: Patient/Account Development Representative Signature: Relationship to Patient: Clinician/Hospital Account Development Representative Signature: Please Provide a Telephone Number Where You Can Be Reached: Is it Permissible To Leave a Message? Date: documented in this encounter Plan of Treatment Not on file documented as of this encounter Visit Diagnoses Not on filedocumented in this encounter
--- OUTSIDE RECORDS SUMMARY | 2025-04-15 11:17 | XMS_ITS | Encounter Summary ---
Author Organization [employer] ([place], [place], [place], [place]) Address [address] [place] [address] Care Team Providers Care Devil Dog Name Role Phone Unavailable Primary Care Provider Unavailabl e Encounter Details Date Type Department Care Team (Late st Contact Info) Description 06/03/2019 Transcribed Document [facility] [place] Family Medicine [address] [place] [address] ProviderRikki MD [address] [place], [place] [phone] Social History Tobacco Use Types Packs/Day Years [...] Communication Barrier : None Primary Language : South African Any Spiritual/Cultural Needs or Requests : No [...] - 06/03/2019 11:10 EDT Electronically signed by [facility] Conversion Synthetic Department Supervisor Cerner at 01/28/2023 10:51 PM CDT documented in this encounter Plan of Treatment Not on file documented as of this encounter Visit Diagnoses Not on filedocumented in this encounter
--- OUTSIDE RECORDS SUMMARY | 2025-04-15 11:17 | XMS_ITS | Encounter Summary ---
Author Organization [employer] ([place], [place], [place], [place]) Address [address] [place] [address] Care Team Providers Care Scientific Publications Editor Name Role Phone Unavailable Primary Care Provider Unavailabl e Encounter Details Date Type Department Care Team (Late st Contact Info) Description 06/03/2019 Transcribed Document [facility] [place] [facility] [place] [address] ProviderRikki MD [address] [place], [place] [id number] Social History Tobacco Use Types Packs/Day Years [...]
--- OUTSIDE RECORDS SUMMARY | 2025-04-15 11:17 | XMS_ITS ---
Author Organization Unknown Medications Medication Instructions Effective Dates (start - stop) Status estradiol 1 MG Oral Tablet 06-16T00:00:00.000+00 :00 - Completed estradiol 1 MG Oral Tablet 07-14T:00:00.000+00 :00 - Completed estradiol 1 MG Oral Tablet :00:00.000+00 :00 - Completed estradiol 1 MG Oral Tablet :00:00.000+00 :00 - Completed pregabalin 100 MG Oral Capsule 2 566-11-91C99:00:00.000+00 :00 - Completed pregabalin 100 MG Oral Capsule 2 071-45-07Z38:00:00.000+00 :00 - Completed pregabalin 100 MG Oral Capsule 2 810-12-57H79:00:00.000+00 :00 - Completed baclofen 5 MG Oral Tablet 3-0 3-T:00:00.000+00 :00 - Completed baclofen 5 MG Oral Tablet 3-0 -T00:00:00.000+00 :00 - Completed pregabalin 100 MG Oral Capsule 2 413-35-28O22:00:00.000+00 :00 - Completed baclofen 5 MG Oral Tablet 3-0 -T:00:00.000+00 :00 - Completed baclofen 10 MG Oral Tablet 11-14T:00:00.000+00 :00 - Completed pregabalin 100 MG Oral Capsule 2 370-18-92T59:00:00.000+00 :00 - Completed baclofen 10 MG Oral Tablet 09-26T00:00:00.000+00 :00 - Completed pregabalin 100 MG Oral Capsule 2 377-32-71C95:00:00.000+00 :00 - Completed pregabalin 100 MG Oral Capsule 2 025-13-87L97:00:00.000+00 :00 - Completed pregabalin 100 MG Oral Capsule 2 139-25-09B51:00:00.000+00 :00 - Completed baclofen 5 MG Oral Tablet :00:00.000+00 :00 - Completed pregabalin 100 MG Oral Capsule 2 309-87-03X16:00:00.000+00 :00 - Completed pregabalin 100 MG Oral Capsule 2 277-97-08J55:00:00.000+00 :00 - Completed carvedilol 6.25 MG Oral Tablet 2 063-03-30S75:00:00.000+00 :00 - Completed baclofen 10 MG Oral Tablet :00:00.000+00 :00 - Completed pregabalin 100 MG Oral Capsule 2 180-58-50F49:00:00.000+00 :00 - Completed tizanidine 4 MG Oral Tablet 2021:00:00.000+00 :00 - Completed carvedilol 6.25 MG Oral Tablet 2 625-28-05N62:00:00.000+00 :00 - Completed ropinirole 1 MG Oral Tablet 2022:00:00.000+00 :00 - Completed ropinirole 1 MG Oral Tablet 2021:00:00.000+00 :00 - Completed fluconazole 100 MG Oral Tablet 561-36-94H27:00:00.000+00 :00 - Completed warfarin sodium 5 MG Oral Tablet 6658-99-87E14:00:00.000+00 :00 - Completed warfarin sodium 5 MG Oral Tablet 5155-67-06Y31:00:00.000+00 :00 - Completed clopidogrel 75 MG Oral Tablet 05-10-06:00:00.000+00 :00 - Completed fluconazole 200 MG Oral Tablet 107-74-79F59:00:00.000+00 :00 - Completed ropinirole 1 MG Oral Tablet 2022:00:00.000+00 :00 - Completed warfarin sodium 2 MG Oral Tablet 1085-68-07H81:00:00.000+00 :00 - Completed losartan potassium 50 MG Oral Tablet 1243-05-81O11:00:00.000+00 :00 - Completed duloxetine 60 MG Delayed Rel ease Oral Capsule 7180-02-64Z63:00:00.000+00 :00 - Completed carvedilol 6.25 MG Oral Tablet 2 262-34-11G52:00:00.000+00 :00 - Completed prednisone 20 MG Oral Tablet 12-19-22:00:00.000+00 :00 - Completed clopidogrel 75 MG Oral Tablet 07-12-12:00:00.000+00 :00 - Completed esomeprazole 40 MG Delayed R elease Oral Capsule 8567-06-27Z14:00:00.000+00 :00 - Completed warfarin sodium 2 MG Oral Tablet 9993-91-53R76:00:00.000+00 :00 - Completed warfarin sodium 5 MG Oral Tablet 2611-38-66L54:00:00.000+00 :00 - Completed clopidogrel 75 MG Oral Tablet 06-03-01:00:00.000+00 :00 - Completed carvedilol 6.25 MG Oral Tablet 2 177-00-78V34:00:00.000+00 :00 - Completed warfarin sodium 5 MG Oral Tablet 4145-95-92L35:00:00.000+00 :00 - Completed {6 (azithromycin 250 MG Oral Tablet) } Pack 9745-29-96Q03:00:00.000+00 :00 - Completed cefdinir 300 MG Oral Capsule 12-15-26:00:00.000+00 :00 - Completed tizanidine 4 MG Oral Tablet 2021:00:00.000+00 :00 - Completed prednisone 5 MG Oral Tablet 2022:00:00.000+00 :00 - Completed fluconazole 200 MG Oral Tablet 2 357-45-74W65:00:00.000+00 :00 - Completed prednisone 5 MG Oral Tablet 2022:00:00.000+00 :00 - Completed prednisone 20 MG Oral Tablet 12-15-16:00:00.000+00 :00 - Completed rivaroxaban 20 MG Oral Table t [Xarelto] 9857-22-50P49:00:00.000+00 :00 - Completed {21 (methylprednisolone 4 MG Oral Tablet) } Pack 3477-94-63H90:00:00.000+00 :00 - Completed spironolactone 50 MG Oral Tablet 0528-98-32A44:00:00.000+00 :00 - Completed spironolactone 50 MG Oral Tablet 2631-18-92T77:00:00.000+00 :00 - Completed spironolactone 50 MG Oral Tablet 9524-31-91V60:00:00.000+00 :00 - Completed duloxetine 60 MG Delayed Rel ease Oral Capsule 3902-80-96Z03:00:00.000+00 :00 - Completed prednisone 20 MG Oral Tablet 12-19-18:00:00.000+00 :00 - Completed azithromycin 500 MG Oral Tablet 4564-70-23J84:00:00.000+00 :00 - Completed spironolactone 50 MG Oral Tablet 4316-07-38J29:00:00.000+00 :00 - Completed prednisone 20 MG Oral Tablet 202 12-16-09:00:00.000+00 :00 - Completed prednisone 20 MG Oral Tablet 12-19-10:00:00.000+00 :00 - Completed clopidogrel 75 MG Oral Tablet 06-11-09:00:00.000+00 :00 - Completed duloxetine 60 MG Delayed Rel ease Oral Capsule 0121-80-92T57:00:00.000+00 :00 - Completed tizanidine 4 MG Oral Tablet 2021:00:00.000+00 :00 - Completed duloxetine 60 MG Delayed Rel ease Oral Capsule 0666-25-31P27:00:00.000+00 :00 - Completed rivaroxaban 20 MG Oral Table t [Xarelto] 2106-77-29T63:00:00.000+00 :00 - Completed hydroxychloroquine sulfate 2 00 MG Oral Tablet 6116-62-29P45:00:00.000+00 :00 - Completed ropinirole 1 MG Oral Tablet 2021:00:00.000+00 :00 - Completed esomeprazole 40 MG Delayed R elease Oral Capsule 5921-75-52W42:00:00.000+00 :00 - Completed torsemide 20 MG Oral Tablet 2022:00:00.000+00 :00 - Completed cyclobenzaprine hydrochlorid e 10 MG Oral Tablet 3322-54-79D87:00:00.000+00 :00 - Completed torsemide 20 MG Oral Tablet 2022:00:00.000+00 :00 - Completed gabapentin 400 MG Oral Capsule 2 697-24-66G26:00:00.000+00 :00 - Completed hydroxychloroquine sulfate 2 00 MG Oral Tablet 0104-86-49H21:00:00.000+00 :00 - Completed losartan potassium 50 MG Oral Tablet 7210-45-48J46:00:00.000+00 :00 - Completed torsemide 20 MG Oral Tablet 2021:00:00.000+00 :00 - Completed torsemide 20 MG Oral Tablet 2021:00:00.000+00 :00 - Completed hydroxychloroquine sulfate 2 00 MG Oral Tablet 7833-93-03F51:00:00.000+00 :00 - Completed esomeprazole 40 MG Delayed R elease Oral Capsule 2566-76-33S11:00:00.000+00 :00 - Completed rivaroxaban 20 MG Oral Table t [Xarelto] 8853-24-19Y81:00:00.000+00 :00 - Completed gabapentin 400 MG Oral Capsule 2 921-61-12F42:00:00.000+00 :00 - Completed rivaroxaban 20 MG Oral Table t [Xarelto] 8427-21-33Q20:00:00.000+00 :00 - Completed losartan potassium 50 MG Oral Tablet 4099-18-13C92:00:00.000+00 :00 - Completed hydroxychloroquine sulfate 2 00 MG Oral Tablet 4008-23-34I07:00:00.000+00 :00 - Completed esomeprazole 40 MG Delayed R elease Oral Capsule 2063-51-66A65:00:00.000+00 :00 - Completed hydroxychloroquine sulfate 2 00 MG Oral Tablet 3004-10-43E43:00:00.000+00 :00 - Completed ropinirole 1 MG Oral Tablet 2021:00:00.000+00 :00 - Completed ropinirole 1 MG Oral Tablet 2021:00:00.000+00 :00 - Completed losartan potassium 50 MG Oral Tablet 3588-08-93Y82:00:00.000+00 :00 - Completed acetaminophen 325 MG / hydro codone bitartrate 10 MG Oral Tablet 7617-19-75S09:00:00.000+0 0 :00 - Completed acetaminophen 325 MG / hydro codone bitartrate 10 MG Oral Tablet 7712-72-79A14:00:00.000+0 0 :00 - Completed acetaminophen 325 MG / hydro codone bitartrate 10 MG Oral Tablet 7560-98-31U60:00:00.000+0 0 :00 - Completed acetaminophen 325 MG / hydro codone bitartrate 10 MG Oral Tablet 1021-79-10H81:00:00.000+0 0 :00 - Completed acetaminophen 325 MG / hydro codone bitartrate 10 MG Oral Tablet 6261-25-18R15:00:00.000+0 0 :00 - Completed acetaminophen 325 MG / hydro codone bitartrate 10 MG Oral Tablet 7047-00-58O13:00:00.000+0 0 :00 - Completed acetaminophen 325 MG / hydro codone bitartrate 10 MG Oral Tablet 9090-53-98B61:00:00.000+0 0 :00 - Completed acetaminophen 325 MG / hydro codone bitartrate 10 MG Oral Tablet 1730-70-87Y95:00:00.000+0 0 :00 - Completed acetaminophen 325 MG / hydro codone bitartrate 10 MG Oral Tablet 0575-87-21P08:00:00.000+0 0 :00 - Completed acetaminophen 325 MG / hydro codone bitartrate 10 MG Oral Tablet 0794-10-72W48:00:00.000+0 0 :00 - Completed Patient Care team information Name Category Status Period Participants - - Proposed period not known -
--- NOTE | 2025-04-15 12:12 | EXP.PAIN.SOA ---
[facility] Disclaimer: The information contained in this section may have been updated after the patient was seen, as this information can be updated by other users. Medical History Upper back pain Epidermal inclusion cyst vulva Chronic anticoagulation Calculus of ureterovesical junction (UVJ) Facial paresthesia Morbid obesity with body mass index (BMI) of 40.0 to 49.9 TIA (transient ischemic attack) Acute CVA (cerebrovascular accident) Left leg DVT Vasomotor symptoms due to menopause Stroke Lupus Asthma History of gastroesophageal reflux (GERD) Hypertension Dizziness Edema History of TIA (transient ischemic attack) History of DVT (deep vein thrombosis) Surgical History H/O gastric bypass History of hysterectomy History of section History of appendectomy History of cholecystectomy Family History Other Coronary artery disease Diabetes Social History Smoking Status: Never smoker second hand exposure: No alcohol intake: never substance use type: denies use current occupational status: other Travel in the last 8 weeks?: None household members: spouse housing: house caffeine: Yes PM Subjective & Objective Subjective Subjective:: Patient is a pleasant 55-year-old female who presents today for medication refill as well as injection follow-up from her shoulder. Patient rates her pain today a 0 out of 10 for the shoulder however a 10 out of 10 on her left foot. Patient did have a fall in her yard where she fell and ended up breaking her left foot. Patient presents today in a boot and is seeing Dr. Billingsley here at [facility] for this injury. Patient states that it was nondisplaced and they are making her nonweightbearing for 6 weeks. She states she is scheduled for her follow-up with him on the . She states that she did just see him yesterday and due to the swelling and shocklike sensations that he did have some concern for the compartment syndrome and is monitoring this. Patient is currently managed with Fancy Farm 10 mg 4 times a day, pregabalin 100 mg 3 times a day and baclofen 10 mg 4 times a day. She denies any side effects. She is asking if we can make some adjustment with the pregabalin due to the worsening nerve pain. Patient is also prescribed compounded cream. Her Loi has been reviewed and is appropriate. Review of Systems: General: No recent weight changes, no fever, no sleep disturbances Respiratory: No cough, no shortness of air, no recurring pulmonary infections Cardiovascular/peripheral vascular: No chest pain, no palpitations, no edema, no shortness of breath Gastrointestinal: No new onset incontinence, normal bowel movements reported Genitourinary: No new onset incontinence Musculoskeletal: Left calf pain, left foot pain Psychiatric: [Normal mood/affect] Neurological: [Denies weakness in extremities], [denies balance issues] Pain at rest (0-10 scale): 10 Objective Objective:: Physical Exam: General: Alert and oriented x3, no acute distress, pleasant and cooperative Lungs: Respirations even and unlabored, symmetrical chest expansion Eyes: PERRL Musculoskeletal: Flexion and extension of lumbar [spine] somewhat guarded secondary to pain, [antalgic gait noted] Neurological: Speech clear, no gross sensory deficit Has patient had previous pain injection?: Yes Percent improvement in pain since last injection: 85% Conservative treatment options previously tried: Home exercise plan Length of treatment: Longer than 12 weeks Meds Home Medications and Allergies Home Medications ?Medication ?Instructions ?Recorded ?Confirmed ?Type cyanocobalamin (vitamin B-12) 1,000 mcg SQ WEEKLY 01/01/24 04/14/25 History 1,000 mcg/mL injection solution hydroxychloroquine 200 mg tablet 200 mg PO BID 06/30/24 04/14/25 History ondansetron 4 mg disintegrating 4 mg PO BID PRN nausea and vomiting 10/16/24 04/14/25 History tablet albuterol sulfate 90 mcg/actuation 2 puff inhalation QID PRN 11/10/24 04/14/25 Rx aerosol inhaler shortness of breath or wheezing #8.5 grams aspirin 81 mg tablet,delayed 162 mg PO DAILY 11/10/24 04/14/25 History release dapagliflozin propanediol 10 mg 10 mg PO DAILY #90 tabs 11/10/24 04/14/25 Rx tablet (Farxiga) alendronate 10 mg tablet 10 mg PO DAILY 90 days #90 tabs 11/26/24 04/14/25 Rx warfarin 5 mg tablet 5 mg PO SUTUTHSA 12/22/24 04/14/25 History desvenlafaxine succinate 50 mg 50 mg PO DAILY #90 tabs 12/29/24 04/14/25 Rx tablet,extended release 24 hr (Pristiq) estradiol 0.01% (0.1 mg/gram) 1 appful vaginal DAILY 30 days 01/26/25 04/14/25 Rx vaginal cream (Estrace) #42.5 grams fezolinetant 45 mg tablet (Veozah) 45 mg PO DAILY #30 tabs 02/02/25 04/14/25 Rx furosemide 20 mg tablet 20 mg PO DAILY 02/16/25 04/14/25 History omeprazole 20 mg capsule,delayed 20 mg PO DAILY 02/16/25 04/14/25 History release trazodone 100 mg tablet 100 mg PO DAILY PRN sleep #90 tabs 03/02/25 04/14/25 Rx methylprednisolone 4 mg tablets in See Rx Instructions PO PER PKG DIR 03/13/25 04/14/25 Rx a dose pack #21 tabs baclofen 10 mg tablet 10 mg PO TID #90 tabs 03/16/25 04/14/25 Rx hydrocodone 10 mg-acetaminophen 1 tab PO 5XDAY #150 tabs 03/16/25 04/14/25 Rx 325 mg tablet pregabalin 100 mg capsule 100 mg PO QID #120 caps 03/16/25 04/14/25 Rx promethazine 25 mg tablet 25 mg PO Q6H PRN nausea and 03/30/25 04/14/25 Rx vomiting #60 tabs oxycodone 5 mg tablet 5 mg PO Q8H PRN pain #10 tabs 04/05/25 04/14/25 Rx New Prescriptions to Start Prescriptions: Allergies Allergy/AdvReac Type Severity Reaction Status Date / Time gum mastic (From MASTISOL Allergy Unknown Unknown Verified 04/14/25 13:09 ADHESIVE) allergy reaction measles, mumps, and rubella Allergy Unknown Unknown Verified 04/14/25 13:09 vaccine (MEASLES, MUMPS, AND allergy RUBELLA VACCINE) reaction methyl salicylate (From Allergy Unknown Unknown Verified 04/14/25 13:09 MASTISOL ADHESIVE) allergy reaction Penicillins (PENICILLINS) Allergy Unknown Hives Verified 04/14/25 13:09 storax (From MASTISOL Allergy Unknown Unknown Verified 04/14/25 13:09 ADHESIVE) allergy reaction Sulfa (Sulfonamide Allergy Unknown Hives Verified 04/14/25 13:09 Antibiotics) (SULFA (SULFONAMIDE ANTIBIOTICS)) sumatriptan (From IMITREX) Allergy Unknown Anaphylaxis Verified 04/14/25 13:09 sulfamethoxazole (From Allergy Unknown Verified 04/14/25 13:09 Bactrim) allergy reaction trimethoprim (From Bactrim) Allergy Unknown Verified 04/14/25 13:09 allergy reaction adhesive AdvReac Mild Rash Verified 04/14/25 13:09 Assessment and Plan *Assessment and plan (1) Ankle fracture: Status: Acute Category: Medical Code(s): S82.899A - Other fracture of unspecified lower leg, initial encounter for closed fracture (2) Closed fracture of left distal fibula: Status: Acute Qualifiers: Encounter type: initial encounter Fracture morphology: other fracture Qualified Code(s): S82.832A - Other fracture of upper and lower end of left fibula, initial encounter for closed fracture Category: Medical Code(s): S82.832A - Other fracture of upper and lower end of left fibula, initial encounter for closed fracture (3) Left shoulder pain: Status: Acute Category: Medical Code(s): M25.512 - Pain in left shoulder (4) Lumbar radiculopathy: Status: Chronic Category: Medical Code(s): M54.16 - Radiculopathy, lumbar region (5) Degenerative disc disease: Status: Chronic Qualifiers: Spinal region: lumbar Qualified Code(s): M51.36 - Other intervertebral disc degeneration, lumbar region Category: Medical Plan I did discuss with the patient that I do not have any issues if Dr. Billingsley ends up writing some additional pain medication for her recent injury as a temporary basis. Patient was not evaluated around her lower calf and foot today due to wearing the boot and having more sensitivity due to this injury. I will refill her medications of the Fancy Farm and increase her pregabalin 250 mg 3 times a day. Patient will return to clinic in 1 month for reevaluation of symptoms and plan of care. I did also discuss with patient that I will reach out to the pharmacy who does her compounded cream and make sure she has a higher concentration. Patient was counseled that if she does get Dr. Billingsley's consent that she could apply that topical to her lower leg as long as there is no broken skin. She acknowledges understanding agrees with this plan of care. Risks and benefits of the medication have been explained in detail to the patient. The patient does understand the risk of dependence on the medication when given over a prolonged period. Patient has been advised of risks of oversedation with the prescribed medication. Narcan has been offered to the paitent in the event of oversedation. Patient has been advised that a family member should also be educated regarding administration of Narcan. The patient has been advised to consult with his/her primary care provider and pharmacist regarding drug-drug interaction of medications currently prescribed. Patient has been prescribed a controlled substance after being counseled on the medication, medication safety, and possible side effects. Opioid contract was reviewed and signed by the patient, and that they have agreed to all of the terms set forth by our compliance program. A UDS is needed to verify patient's compliance with our office pain contract. This is ordered based off specific treatments related to chronic pain with the potential to abuse certain medications. Patient has been instructed to contact the clinic with any concerns before the next appointment. Dr. Venegas has reviewed this note and agrees with this plan of care. This note was dictated using voice recognition software and make contain errors or omissions.
== END 2025-04-15 23:59 | disposition home or self-care (01) ==
PROVIDERS: PCP Family Medicine; Visit Provider Nurse Practitioner Family
DX: S82.832A Other fracture of upper and lower end of left fibula, initial encounter for closed fracture (principal); M25.512 Pain in left shoulder; M51.16 Intervertebral disc disorders with radiculopathy, lumbar region; Z79.899 Other long term (current) drug therapy; X58.XXXA Exposure to other specified factors, initial encounter; Y93.9 Activity, unspecified; Y92.9 Unspecified place or not applicable

== ENCOUNTER 2025-04-28 10:51 | Outpatient (CLI) | payer OTHER, SELFPAY ==
--- NOTE | 2025-04-28 10:57 | XR_ITS ---
FINAL REPORT CLINICAL HISTORY: lt ankle lateral malleolar fracture COMPARISON: 04/14/2025 FINDINGS: Three views of the left ankle show a transverse fracture of the lateral malleolus without displacement. No fracture healing is evident at this time. The ankle mortise is intact. The joint spaces appear normal. IMPRESSION: Nondisplaced transverse lateral malleolar fracture without fracture healing at this time. Reviewed, Interpreted and Dictated by Mina Wright MD Transcribed by Aruna Bazzi Authenticated and [facility]
--- OUTSIDE RECORDS SUMMARY | 2025-04-28 11:01 | XMS_ITS | Encounter Summary ---
Author Organization [employer] ([place], [place], [place], [place]) Address [address] [place] [address] Care Team Providers Care Sole Molder Name Role Phone Unavailable Primary Care Provider Unavailabl e Encounter Details Date Type Department Care Team (Late st Contact Info) Description 06/03/2019 Transcribed Document [facility] [place] Family Medicine [facility] [place] [address] ProviderRikki MD [address] [place] [address] Social History Tobacco Use Types Packs/Day [...] Montoya MD - 06/03/2019 2:51 PM CDT [facility] [place] [address] KASSI KONG :1970 Visit Time:06/03/2019 Your Visit Summary Your Care Team Admitting Physician - DRE POWER MARK, MD Attending Physician - MARIEL MCCRAY MD Primary Care Physician - ALVARADO STILES (REF), -[facility] Referring Physician - MARIEL MCCRAY MD [...] in the future. Where: [place] [address] [place] [address]- Allergies SUMAtriptan (Other Anaphylactic Shock, Other Anaphylactic [...] range between ( 0.0 and 7.0 ) [place] #: 0.44 K/uL -- Normal range between ( 0.16 and 1.00 ) Eos #: 0.28 x10(3)/uL -- Normal range between ( 0.00 and 0.80 ) [place] %: 5.2 % -- Normal range between [...] ) Urine Bilirubin Dipstick: Negative Urine Specific [facility]: 1.021 -- Normal range between ( 1.005 [...] stand. This can reduce dizziness. ??? Take ysom-pjs-tcatqem and prescription medicines only as told by [...] 10/01/2006 Document Revised: 03/08/2017 Document Reviewed: 06/14/2016 [employer] Interactive Patient Education ?? 2018 [employer] Head Injury, Adult There are many [...] Ask your health care provider for a rdgi-fw-sieq plan for gradually returning to activities. ??? [...] your friends, family, a trusted colleague, and submarine worker about your injury, symptoms, and restrictions. Have them watch for any new or worsening problems. General instructions ??? Take wruh-svp-bmdfgjb and prescription medicines only as told by [...] 04/10/2017 [employer] Interactive Patient Education ?? 2019 [employer] Contusion A contusion is a deep [...] This is often called the RICE strategy. Shli-lwj-rmgwcqb anti-inflammatory medicines may also be recommended for [...] are sitting or lying down. ??? Take vvbb-coy-hmxfaoe and prescription medicines only as told by [...] 07/11/2006 Document Revised: 02/08/2017 Document Reviewed: 02/16/2016 [employer] Interactive Patient Education ?? 2019 [employer] Concussion, Adult A concussion is a [...] are taking any medicines, including prescription medicines, gjxw-yqe-filzyqq medicines, and natural remedies. Some medicines, such [...] returning to activities. General instructions ??? Take uqvu-orw-ulafuex and prescription medicines only as told by [...] Tell your teachers, school nurse, school counselor, track and field coach, driver trainer, or submarine worker about your injury, symptoms, and restrictions. [...] 12/21/2004 Document Revised: 09/11/2017 Document Reviewed: 09/11/2017 [employer] Interactive Patient Education ?? 2019 [employer] Emergency Awareness and Preventative Care STROKE [...] Assistance with quitting is available by contacting 5-834-CSYI-NOW. This is a free resource providing counseling, [...] was given the opportunity to ask questions. Patient/Assembly Department Supervisor Name: Patient/Assembly Department Supervisor Signature: Relationship to Patient: Clinician/Hospital Assembly Department Supervisor Signature: Please Provide a Telephone Number Where You Can Be Reached: Is it Permissible To Leave a Message? Date: documented in this encounter Plan of Treatment Not on file documented as of this encounter Visit Diagnoses Not on filedocumented in this encounter
--- OUTSIDE RECORDS SUMMARY | 2025-04-28 11:01 | XMS_ITS ---
Author Organization Unknown Medications Medication Instructions Effective Dates (start - stop) Status estradiol 1 MG Oral Tablet 06-16T00:00:00.000+00 :00 - Completed estradiol 1 MG Oral Tablet 07-14T:00:00.000+00 :00 - Completed estradiol 1 MG Oral Tablet :00:00.000+00 :00 - Completed estradiol 1 MG Oral Tablet :00:00.000+00 :00 - Completed pregabalin 100 MG Oral Capsule 2 259-04-73H33:00:00.000+00 :00 - Completed pregabalin 100 MG Oral Capsule 2 778-22-32B33:00:00.000+00 :00 - Completed pregabalin 100 MG Oral Capsule 2 404-23-64E79:00:00.000+00 :00 - Completed baclofen 5 MG Oral Tablet 3-0 3-T:00:00.000+00 :00 - Completed baclofen 5 MG Oral Tablet 3-0 -T00:00:00.000+00 :00 - Completed pregabalin 100 MG Oral Capsule 2 103-42-52A69:00:00.000+00 :00 - Completed baclofen 5 MG Oral Tablet 3-0 -T:00:00.000+00 :00 - Completed baclofen 10 MG Oral Tablet 11-14T:00:00.000+00 :00 - Completed pregabalin 100 MG Oral Capsule 2 657-79-19J54:00:00.000+00 :00 - Completed baclofen 10 MG Oral Tablet 09-26T00:00:00.000+00 :00 - Completed pregabalin 100 MG Oral Capsule 2 405-29-71A98:00:00.000+00 :00 - Completed pregabalin 100 MG Oral Capsule 2 530-35-24T68:00:00.000+00 :00 - Completed pregabalin 100 MG Oral Capsule 2 186-98-79G63:00:00.000+00 :00 - Completed baclofen 5 MG Oral Tablet :00:00.000+00 :00 - Completed pregabalin 100 MG Oral Capsule 2 822-71-72H36:00:00.000+00 :00 - Completed pregabalin 100 MG Oral Capsule 2 857-65-93J21:00:00.000+00 :00 - Completed carvedilol 6.25 MG Oral Tablet 2 329-99-27J24:00:00.000+00 :00 - Completed baclofen 10 MG Oral Tablet :00:00.000+00 :00 - Completed pregabalin 100 MG Oral Capsule 2 799-88-29Q05:00:00.000+00 :00 - Completed tizanidine 4 MG Oral Tablet 2021:00:00.000+00 :00 - Completed carvedilol 6.25 MG Oral Tablet 2 612-68-30P35:00:00.000+00 :00 - Completed ropinirole 1 MG Oral Tablet 2022:00:00.000+00 :00 - Completed ropinirole 1 MG Oral Tablet 2021:00:00.000+00 :00 - Completed fluconazole 100 MG Oral Tablet 928-83-14K15:00:00.000+00 :00 - Completed warfarin sodium 5 MG Oral Tablet 7425-87-52O15:00:00.000+00 :00 - Completed warfarin sodium 5 MG Oral Tablet 3405-45-91A77:00:00.000+00 :00 - Completed clopidogrel 75 MG Oral Tablet 05-10-06:00:00.000+00 :00 - Completed fluconazole 200 MG Oral Tablet 081-68-73P94:00:00.000+00 :00 - Completed ropinirole 1 MG Oral Tablet 2022:00:00.000+00 :00 - Completed warfarin sodium 2 MG Oral Tablet 1452-08-35Y39:00:00.000+00 :00 - Completed losartan potassium 50 MG Oral Tablet 5599-02-85E66:00:00.000+00 :00 - Completed duloxetine 60 MG Delayed Rel ease Oral Capsule 9069-04-85Y41:00:00.000+00 :00 - Completed carvedilol 6.25 MG Oral Tablet 2 037-88-30G58:00:00.000+00 :00 - Completed prednisone 20 MG Oral Tablet 12-19-22:00:00.000+00 :00 - Completed clopidogrel 75 MG Oral Tablet 07-12-12:00:00.000+00 :00 - Completed esomeprazole 40 MG Delayed R elease Oral Capsule 7571-73-26K82:00:00.000+00 :00 - Completed warfarin sodium 2 MG Oral Tablet 4468-52-49N91:00:00.000+00 :00 - Completed warfarin sodium 5 MG Oral Tablet 6701-47-86F01:00:00.000+00 :00 - Completed clopidogrel 75 MG Oral Tablet 06-03-01:00:00.000+00 :00 - Completed carvedilol 6.25 MG Oral Tablet 2 905-01-29P08:00:00.000+00 :00 - Completed warfarin sodium 5 MG Oral Tablet 8157-58-71S86:00:00.000+00 :00 - Completed {6 (azithromycin 250 MG Oral Tablet) } Pack 0875-67-67D33:00:00.000+00 :00 - Completed cefdinir 300 MG Oral Capsule 12-15-26:00:00.000+00 :00 - Completed tizanidine 4 MG Oral Tablet 2021:00:00.000+00 :00 - Completed prednisone 5 MG Oral Tablet 2022:00:00.000+00 :00 - Completed fluconazole 200 MG Oral Tablet 2 952-34-20W21:00:00.000+00 :00 - Completed prednisone 5 MG Oral Tablet 2022:00:00.000+00 :00 - Completed prednisone 20 MG Oral Tablet 12-15-16:00:00.000+00 :00 - Completed rivaroxaban 20 MG Oral Table t [Xarelto] 1139-75-54T07:00:00.000+00 :00 - Completed {21 (methylprednisolone 4 MG Oral Tablet) } Pack 4659-26-92P65:00:00.000+00 :00 - Completed spironolactone 50 MG Oral Tablet 5054-21-08A95:00:00.000+00 :00 - Completed spironolactone 50 MG Oral Tablet 2740-48-95X37:00:00.000+00 :00 - Completed spironolactone 50 MG Oral Tablet 1650-75-13R89:00:00.000+00 :00 - Completed duloxetine 60 MG Delayed Rel ease Oral Capsule 3462-04-32M05:00:00.000+00 :00 - Completed prednisone 20 MG Oral Tablet 12-19-18:00:00.000+00 :00 - Completed azithromycin 500 MG Oral Tablet 2660-36-26E75:00:00.000+00 :00 - Completed spironolactone 50 MG Oral Tablet 0191-16-00Q10:00:00.000+00 :00 - Completed prednisone 20 MG Oral Tablet 202 12-16-09:00:00.000+00 :00 - Completed prednisone 20 MG Oral Tablet 12-19-10:00:00.000+00 :00 - Completed clopidogrel 75 MG Oral Tablet 06-11-09:00:00.000+00 :00 - Completed duloxetine 60 MG Delayed Rel ease Oral Capsule 7753-44-12O85:00:00.000+00 :00 - Completed tizanidine 4 MG Oral Tablet 2021:00:00.000+00 :00 - Completed duloxetine 60 MG Delayed Rel ease Oral Capsule 7034-81-65Q57:00:00.000+00 :00 - Completed rivaroxaban 20 MG Oral Table t [Xarelto] 4880-29-30T93:00:00.000+00 :00 - Completed hydroxychloroquine sulfate 2 00 MG Oral Tablet 4283-67-68R59:00:00.000+00 :00 - Completed ropinirole 1 MG Oral Tablet 2021:00:00.000+00 :00 - Completed esomeprazole 40 MG Delayed R elease Oral Capsule 6087-80-28N91:00:00.000+00 :00 - Completed torsemide 20 MG Oral Tablet 2022:00:00.000+00 :00 - Completed cyclobenzaprine hydrochlorid e 10 MG Oral Tablet 6371-08-77W58:00:00.000+00 :00 - Completed torsemide 20 MG Oral Tablet 2022:00:00.000+00 :00 - Completed gabapentin 400 MG Oral Capsule 2 290-72-37W49:00:00.000+00 :00 - Completed hydroxychloroquine sulfate 2 00 MG Oral Tablet 2862-39-74N95:00:00.000+00 :00 - Completed losartan potassium 50 MG Oral Tablet 5572-33-83B64:00:00.000+00 :00 - Completed torsemide 20 MG Oral Tablet 2021:00:00.000+00 :00 - Completed torsemide 20 MG Oral Tablet 2021:00:00.000+00 :00 - Completed hydroxychloroquine sulfate 2 00 MG Oral Tablet 0813-44-31O73:00:00.000+00 :00 - Completed esomeprazole 40 MG Delayed R elease Oral Capsule 8747-44-02G42:00:00.000+00 :00 - Completed rivaroxaban 20 MG Oral Table t [Xarelto] 0808-88-26U69:00:00.000+00 :00 - Completed gabapentin 400 MG Oral Capsule 2 837-09-78U91:00:00.000+00 :00 - Completed rivaroxaban 20 MG Oral Table t [Xarelto] 9361-02-77K37:00:00.000+00 :00 - Completed losartan potassium 50 MG Oral Tablet 7442-10-78M37:00:00.000+00 :00 - Completed hydroxychloroquine sulfate 2 00 MG Oral Tablet 9710-73-25H89:00:00.000+00 :00 - Completed esomeprazole 40 MG Delayed R elease Oral Capsule 0539-34-89M21:00:00.000+00 :00 - Completed hydroxychloroquine sulfate 2 00 MG Oral Tablet 4668-49-74S26:00:00.000+00 :00 - Completed ropinirole 1 MG Oral Tablet 2021:00:00.000+00 :00 - Completed ropinirole 1 MG Oral Tablet 2021:00:00.000+00 :00 - Completed losartan potassium 50 MG Oral Tablet 2915-24-87O25:00:00.000+00 :00 - Completed acetaminophen 325 MG / hydro codone bitartrate 10 MG Oral Tablet 3440-74-98P16:00:00.000+0 0 :00 - Completed acetaminophen 325 MG / hydro codone bitartrate 10 MG Oral Tablet 9606-01-25V84:00:00.000+0 0 :00 - Completed acetaminophen 325 MG / hydro codone bitartrate 10 MG Oral Tablet 7861-16-60N43:00:00.000+0 0 :00 - Completed acetaminophen 325 MG / hydro codone bitartrate 10 MG Oral Tablet 3960-77-79A85:00:00.000+0 0 :00 - Completed acetaminophen 325 MG / hydro codone bitartrate 10 MG Oral Tablet 2760-56-40G53:00:00.000+0 0 :00 - Completed acetaminophen 325 MG / hydro codone bitartrate 10 MG Oral Tablet 4338-16-60Q20:00:00.000+0 0 :00 - Completed acetaminophen 325 MG / hydro codone bitartrate 10 MG Oral Tablet 3112-87-25Y47:00:00.000+0 0 :00 - Completed acetaminophen 325 MG / hydro codone bitartrate 10 MG Oral Tablet 3160-21-71Q01:00:00.000+0 0 :00 - Completed acetaminophen 325 MG / hydro codone bitartrate 10 MG Oral Tablet 0138-53-40W41:00:00.000+0 0 :00 - Completed acetaminophen 325 MG / hydro codone bitartrate 10 MG Oral Tablet 1071-94-80D22:00:00.000+0 0 :00 - Completed Patient Care team information Name Category Status Period Participants - - Proposed period not known -
--- OUTSIDE RECORDS SUMMARY | 2025-04-28 11:01 | XMS_ITS | Encounter Summary ---
Author Organization [employer] ([place], [place], [place], [place]) Address [address] [place] [address] Care Team Providers Care Hat Blocking Machine Operator Name Role Phone Unavailable Primary Care Provider Unavailabl e Encounter Details Date Type Department Care Team (Late st Contact Info) Description 06/22/2021 Transcribed Document [facility] [place] [facility] [place] [address] ProviderRikki MD [address] [place] [address] Social History Tobacco Use Types Packs/Day [...] Montoya MD - 06/22/2021 2:03 AM CDT [facility] [place] [address] KASSI KONG :1970 Visit Time:06/21/2021 Your [...] 2 to 3 days Where: [place] [address]- [facility] (1) Allergies SUMAtriptan (Other Anaphylactic [...] range between ( 0.0 and 7.0 ) [place] #: 0.52 K/uL -- Normal range between ( 0.16 and 1.00 ) Eos #: 0.24 x10(3)/uL -- Normal range between ( 0.00 and 0.80 ) [place] %: 5.3 % -- Normal range between [...] these instructions at home: Medicines ??? Take bifr-bif-wfevrbg and prescription medicines only as told by [...] provider. Document Revised: 04/03/2019 Document Reviewed: 04/03/2019 [employer] Patient Education ?? 2020 [employer]. Emergency Awareness and Preventative Care STROKE is [...] Assistance with quitting is available by contacting 0-431-BIAZ-NOW. This is a free resource providing counseling, [...] was given the opportunity to ask questions. Patient/Social Media Analyst Name: Patient/Social Media Analyst Signature: Relationship to Patient: Clinician/Hospital Social Media Analyst Signature: Please Provide a Telephone Number Where You Can Be Reached: Is it Permissible To Leave a Message? Date: documented in this encounter Plan of Treatment Not on file documented as of this encounter Visit Diagnoses Not on filedocumented in this encounter
--- OUTSIDE RECORDS SUMMARY | 2025-04-28 11:01 | XMS_ITS | Encounter Summary ---
Author Organization [employer] ([place], [place], [place]) Address [address] [place] [address] Care Team Providers Care Cnc Machinist Name Role Phone Unavailable Primary Care Provider Unavailabl e Encounter Details Date Type Department Care Team (Late st Contact Info) Description 06/03/2019 Transcribed Document [facility] [place] [facility] [place] [address] ProviderRikki MD [address] [place] [address] [phone] Social History Tobacco Use Types Packs/Day Years [...] EDT Height Source Stated Height Entry Format Parmer Height/Length, DJIBOUTIAN (ft) 5 ft Height/Length DJIBOUTIAN 3 Inch CLINICALHEIGHT 160.02 cm Carrier Body Weight 52.02 kg Weight Source, ED Critical estimated dosing weight Weight Entry Format Parmer Weight Beninese lb 220 lb CLINICALWEIGHT 100 kg Body [...] Hand pain, wrist pain, fracture, sprain, contusion, [place], head injury, concussion,. Orders Include Previous Orders (Selected) Inpatient Orders Ordered EKG: Completed .Automated Differential: .Urinalysis Microscopic: CBC w/ Auto Diff: CMP Comprehensive Metabolic Panel: CR Hand Min 3 Vws RT: CT Head WO: Cardiac Monitoring: ED Adult Fall Risk Assessment: ED Adult Triage: ED Clinical Reconciliation: ED support team member: Normal Saline Flush: 10 mL, IV Push, [...] Color Yellow Urine Appearance Clear Urine Specific Colony 1.021 Urine pH Dipstick 7.5 Urine Leukocyte [...] % 30.2 % Lymph # 2.54 x10(3)/uL [place] % 5.2 % [place] # 0.44 K/uL Eos % 3.3 % [...] Fall Scale Risk Level 0-24 Low Risk [place] Fall Interventions Adequate lighting, Bed in low position, Call device within reach, Hourly comfort/safety rounds, Non-Slip footwear, Personal items within reach, Reinforced to call for assistance before getting out of bed, Room free of clutter/spills, Upper side-rails up, Wheels locked, Wires/Cords secured Fall Moderate to High Risk Interventions Patient room close to nurses station Communication Barrier None Primary Language Beninese Information Obtained From Patient Smoking Status Refused [...] air Height Source Stated Height Entry Format Parmer Height/Length, DJIBOUTIAN (ft) 5 ft Height/Length DJIBOUTIAN 3 Inch CLINICALHEIGHT 160.02 cm Carrier Body Weight 52.02 kg Weight Source, ED Critical estimated dosing weight Weight Entry Format Parmer Weight Beninese lb 220 lb CLINICALWEIGHT 100 kg Body [...] Ambulate Tracking Acuity 3 - Urgent (Modified) Director Of Teenage Activities Needed No Accompanied by Unaccompanied Mode of Arrival Ambulatory 06/03/2019 10:46 EDT Nurse Collect Order Detail 3.00 Nurse Collect Order Detail 3.00 . Radiology results: Radiology Results (Last 48 hours) [id number] -- 06/03/2019 10:45 CR Hand Min 3 [...] Adult, Syncope. Follow up with: ALVARADO STILES (REF)[facility] Within 2 to 3 days Patient states??Dr. [...]
--- OUTSIDE RECORDS SUMMARY | 2025-04-28 11:01 | XMS_ITS | Data Portability ---
Author Organization [employer] JOHNSON CLOSED Address [address] [facility] [address] [place] [address] Care Team Providers Care Jet Pilot Name Role Phone SANGEETA BENOIT Primary Care [...] 6 weeks once imaging has been completed. [email or web address] Not available 05/21/2024 11:00:40 07/02/2024 07/02/2024 Kassi [...] the patient to obtain a disc from [facility] and bring the disc to us. Once we have the disc, I will have Dr. Walker review the imaging and contact the patient. I have scheduled her for a follow-up appointment in 6 weeks as well. [email or web address] Not available 07/02/2024 11:48:35 10/17/2024 10/17/2024 Kassi [...] headaches, consider further evaluation by headache specialist. [email or web address] Not available 10/17/2024 12:21:54 Plan of Treatment Reminders Order Date Submit Date Provider Last Modified By Organization Details Last Modified Time Details Appointments None recorded. Lab None recorded. Referral None recorded. Procedures None recorded. Surgeries None recorded. Imaging None recorded. Medication Orders cyclobenzap rine 10 mg tablet 2023 024 [facility] [address] [place] [address], [phone], 11:01:23 Patient TargetsNo targets recorded. Patient InstructionsNo instructions recorded. Reason for Referral None Reported. Results Created Date Observation Date Name Description Value Unit Range Abnormal Flag Note LastModifiedBy Organization Detail LastModifiedTime 06/12/2006/11/2024 MRI, lumba r spine , w/wo contr ast No observ ation record ed. [email or web address] Not Available 2023 11:20:48 08/22/2008/19/2024 MRI, cervi claribel spine , w/wo contr ast No observ ation record ed. Not Available 2024 16:06:42 Result Notes None recorded. Procedures Surgical History Date Name Laterality Status Provider Name and Address Organization Details Recorded Time Back Surgery completed [facility] 05/21/2024 10:17:19 section completed [facility] 05/21/2024 10:17:33 Appendectomy completed [facility] 05/21/2024 10:17:40 Cholecystectomy completed [facility] 05/21/2024 10:17:48 hysterectomy completed [facility] 05/21/2024 10:17:58 Gastric bypass for obesity completed [facility] 05/21/2024 10:18:08 Imaging Results None recorded. Procedure [...] Body mass index (BMI) Body weight Systolic And Diastolic Provider Name and Address Organization Details Last Updated DateTime 10/17/2024 160.02 cm 33.7 kg/m2 69282.55 g 122/82 mm[Hg] [facility] 10/17/2024 09:17:07 Date Recorded Body height Body mass index (BMI) Body weight Systolic And Diastolic Provider Name and Address Organization Details Last Updated DateTime 05/21/2024 160.02 cm 33.7 kg/m2 37059.55 g 130/82 mm[Hg] [facility] 05/21/2024 10:25:23 Date Recorded Body height Body mass index (BMI) Body weight Systolic And Diastolic Provider Name and Address Organization Details Last Updated DateTime 07/02/2024 160.02 cm 33.7 kg/m2 65613.55 g 126/82 mm[Hg] [facility] 07/02/2024 11:21:39 Social History None recorded. Functional Status [...] SNOMED-CT Code Diagnosis ICD10 Code Diagnosis Note [id number] SKIP KAUFMAN PA-C [facility] [address] [place] [address] 05/21/2024 09:59:46 05/23/2024 14:19:21 Lumbar radiculopathy [id number] M54.16 [id number] SKIP KAUFMAN PA-C [facility] [address] [place] [address] 07/02/2024 10:12:30 07/07/2024 10:32:51 Lumbar radiculopathy [id number] M54.16 Low back pain [id number] M54.50 [id number] VÍCTOR WALKER MD [facility] [address] [place] [address] 10/17/2024 09:09:50 10/18/2024 05:47:25 Headache 11106429 R51.9 Health Concerns Section Related Observation LastModified by Organization Detai ls LastModified Time None Recorded Concern Status LastModified by Organization Details LastModified Time None Recorded Advance Directives Directive None Recorded Payers Insurance Date Sequence Insurance Name Policy Number Policy Junior Covered Member ID Junior Member ID Guarantor Name 10/15/2024 1 [employer] (EPO) [id number] Kassi Claudio [id number] Kassi Claudio Notes Date Note Type [...] being on warfarin. SKIP KAUFMAN PA-C [address] [place], [address], [facility] 05/21/2024 11:01:32 4 text/html Kassi [...] resolved. She had her MRI completed at [facility] on 06/11/2024 but did not obtain a disc with the MRI images to bring to her appointment today. SKIP KAUFMAN PA-C [address] [place], [address], [facility] 07/02/2024 11:49:01 5 text/html Kassi [...] seems to help. VÍCTOR WALKER MD [address] [place], [address], [facility] 10/17/2024 12:23:13 OBGyn Episode No OBEpisode recorded.
--- OUTSIDE RECORDS SUMMARY | 2025-04-28 11:01 | XMS_ITS | Encounter Summary ---
Author Organization [employer] ([place], [place], [place]) Address [address] [place] [address] Care Team Providers Care Restoration Ecologist Name Role Phone Unavailable Primary Care Provider Unavailabl e Encounter Details Date Type Department Care Team (Late st Contact Info) Description 06/22/2021 Transcribed Document [facility] [place] [facility] [place] [address] ProviderRikki MD [address] [place] [address] [phone] Social History Tobacco Use Types Packs/Day Years [...] had a heart cath done by her manufacturing engineering manager in [place] in February, she did not have any [...] EDT Height Source Stated Height Entry Format Hartley Height/Length, TELUGU (ft) 5 ft Height/Length TELUGU 3 Inch CLINICALHEIGHT 160.02 cm [place] Body Weight 52.02 kg Weight Source, ED Critical estimated dosing weight Weight Entry Format Hartley Weight Kuwaiti lb 220 lb CLINICALWEIGHT 100 kg Body [...] Triage: ED C-SSRS: ED Clinical Reconciliation: ED actuarial technician: EKG: Normal Saline Flush: 10 mL, IV [...] % 30.8 % Lymph # 3.02 x10(3)/uL [place] % 5.3 % [place] # 0.52 K/uL Eos % 2.4 % [...]
--- OUTSIDE RECORDS SUMMARY | 2025-04-28 11:01 | XMS_ITS | Encounter Summary ---
Author Organization [employer] ([place], [place], [place]) Address [address] [place] [address] Care Team Providers Care Try On Baster Name Role Phone Unavailable Primary Care Provider Unavailabl e Encounter Details Date Type Department Care Team (Late st Contact Info) Description 06/22/2021 Transcribed Document [facility] [place] [address] ProviderRikki MD [address] [place] [phone] Social History Tobacco Use Types Packs/Day Years [...]
--- OUTSIDE RECORDS SUMMARY | 2025-04-28 11:01 | XMS_ITS | Encounter Summary ---
Author Organization [employer] ([place], [place], [place]) Address [address] [place] [address] Care Team Providers Care Loan Associate Name Role Phone Unavailable Primary Care Provider Unavailabl e Encounter Details Date Type Department Care Team (Late st Contact Info) Description 06/21/2021 Transcribed Document [facility] [place] [facility] [place] [address] ProviderRikki MD [address] [place] [phone] Social History Tobacco Use Types Packs/Day Years [...] Communication Barrier : None Primary Language : German Any Spiritual/Cultural Needs or Requests : No [...] EDT Electronically signed by Giacomo Azar Conversion Client Application Support Engineer Cerner at 01/28/2023 10:52 PM CDT documented in this encounter Plan of Treatment Not on file documented as of this encounter Visit Diagnoses Not on filedocumented in this encounter
--- OUTSIDE RECORDS SUMMARY | 2025-04-28 11:01 | XMS_ITS | Encounter Summary ---
Author Organization [employer] ([place], [place], [place]) Address [address] [place] [address] Care Team Providers Care Real Estate Legal Assistant Name Role Phone Unavailable Primary Care Provider Unavailabl e Encounter Details Date Type Department Care Team (Late st Contact Info) Description 06/11/2019 Transcribed Document [facility] [place] [address] [place] [address] ProviderRikki MD [address] [place], [place] [id number] Social History Tobacco Use Types Packs/Day Years [...]
--- OUTSIDE RECORDS SUMMARY | 2025-04-28 11:01 | XMS_ITS | Encounter Summary ---
Author Organization [facility] Address [address] [place] [address] Care Team Providers Care Global Marketing Specialist Name Role Phone Valentin Daniel MD Primary Care Provider [phone] Encounter Details Date Type Department Care Team (Latest Contact Info) Description 02/05/2025 [facility] [address] [place] [address] Valentin Daniel MD [address] [place] [address] Polyneuropathy (Primary Dx); Foot drop, left foot [...] Visit [facility]ties [address] [place] [address] Angela Todd, CERTIFIED SURGICAL TECHNICIAN [address] [place] [address] 10/30/2025 8:00 AM EST Consult [facility] [address] [place] [address] Sim Tillman MD [address] [place] [address] documented as of this encounter [...] documented as of this encounter Care Teams Global Marketing Specialist Relationship Specialty Start Date End Date Valentin Daniel MD PCP - General 09/18/22 documented as of this encounter
--- OUTSIDE RECORDS SUMMARY | 2025-04-28 11:01 | XMS_ITS | Clinical Summary ---
Author Organization [employer] ([place], [place], [place], [place]) Address [address] [place] [address] Care Team Providers Care Printing Film Stripper Name Role Phone Unavailable Primary Care Provider [...]
--- OUTSIDE RECORDS SUMMARY | 2025-04-28 11:01 | XMS_ITS | Encounter Summary ---
Author Organization [employer] ([place], [place], [place], [place]) Address [address] [place] [address] Care Team Providers Care Warehouse Supervisor 3Rd Shift Name Role Phone Unavailable Primary Care Provider Unavailabl e Encounter Details Date Type Department Care Team (Late st Contact Info) Description 06/21/2021 Transcribed Document [facility] [place] [address] [place] [address] ProviderRikki MD [address] [place], [place] 139[address] Social History Tobacco Use Types Packs/Day Years [...] Historical ProviderMD - 06/21/2021 9:55 PM CDT [place] Suicide Severity Rating Scale (C-SSRS) Entered On: 06/21/2021 22:29 EDT Performed On: 06/21/2021 22:27 EDT by Aruna Garcia [place] Suicide Severity Rating Scale (C-SSRS) CSSRS Past [...]
--- OUTSIDE RECORDS SUMMARY | 2025-04-28 11:01 | XMS_ITS | Encounter Summary ---
Author Organization [employer] ([place], [place], [place], [place]) Address [address] [place] [address] Care Team Providers Care Upper And Bottom Lacer Hand Name Role Phone Unavailable Primary Care Provider Unavailabl e Encounter Details Date Type Department Care Team (Late st Contact Info) Description 06/22/2021 Transcribed Document [facility] [place] [facility] [place] [address] ProviderRikki MD [address] [place] [id number] Social History Tobacco Use Types Packs/Day Years [...]
--- OUTSIDE RECORDS SUMMARY | 2025-04-28 11:01 | XMS_ITS | Encounter Summary ---
Author Organization [facility] Address [address] [place] [address] Care Team Providers Care Upholsterer Assembly Line Name Role Phone Valentin Daniel MD Primary Care Provider [phone] Reason for Referral * Consultation (Routine) - Authorized Specialty Diagnoses / Procedures Referred By Giovani rose Referred To Contact Neurology Diagnoses Left foot drop Mechanical problems with limbs Polyneuropathy Valentin Daniel MD [address] [place] [phone] Phone: tel: fax: Referral ID Status Reason Start Date Expiration Date Visits Requested Visits Authorized [id number] Authorized Specialty Services Required 02/16/2025 08/18/2026 1 1 Encounter Details Date Type Department Care Team (Late st Contact Info) Description 02/16/2025 [facility] [address] [place] [address] Valentin Daniel MD [address] [place] [address] Left foot drop (Primary Dx); Mechanical problems [...] Description 05/06/2025 1:20 PM EDT Office Visit [facility] Medicine Specialties [address] [place] [address] Angela Todd APRN [address] [place] [address] 10/30/2025 8:00 AM EST Consult [facility] [address] [place] [address] Sim Tillman MD [address] [place] [address] Scheduled Referrals Name Type Priority [...] documented as of this encounter Care Teams Upholsterer Assembly Line Relationship Specialty Start Date End Date Valentin Daniel MD PCP - General 09/18/22 documented as of this encounter
--- OUTSIDE RECORDS SUMMARY | 2025-04-28 11:01 | XMS_ITS | Encounter Summary ---
Author Organization [employer] ([place], [place], [place]) Address [address] [place] [address] Care Team Providers Care Sweater Designer Name Role Phone Unavailable Primary Care Provider Unavailabl e Encounter Details Date Type Department Care Team (Late st Contact Info) Description 06/22/2021 Transcribed Document [facility] [place] [facility] [place] [address] ProviderRikki MD [address] [place] [phone] Social History Tobacco Use Types Packs/Day Years [...] CDT Electronically signed by Giacomo Azar Conversion Plasma Cutting Machine Operator Rajwinder at 01/28/2023 10:48 PM CDT documented in this encounter Plan of Treatment Not on file documented as of this encounter Visit Diagnoses Not on filedocumented in this encounter
--- OUTSIDE RECORDS SUMMARY | 2025-04-28 11:01 | XMS_ITS | Referral Summary ---
Author Organization [employer] ([place], [place], [place], [place]) Address [address] [place] [address] Care Team Providers Care Pharmaceutical Laboratory Technician Name Role Phone Unavailable Primary Care [...]
--- OUTSIDE RECORDS SUMMARY | 2025-04-28 11:01 | XMS_ITS | Encounter Summary ---
Author Organization [employer] ([place], [place], [place], [place]) Address [address] [place] [address] Care Team Providers Care Bank Boss Name Role Phone Unavailable Primary Care Provider Unavailabl e Encounter Details Date Type Department Care Team (Late st Contact Info) Description 06/21/2021 Transcribed Document [facility] [place] Medicine [address] [place] [address] ProviderRikki MD [address] [place], [place] [id number] Social History Tobacco Use Types Packs/Day Years [...]
--- OUTSIDE RECORDS SUMMARY | 2025-04-28 11:01 | XMS_ITS | Encounter Summary ---
Author Organization [employer] ([place], [place], [place], [place]) Address [address] [place] [address] Care Team Providers Care Tag Stringer Name Role Phone Unavailable Primary Care Provider Unavailabl e Encounter Details Date Type Department Care Team (Late st Contact Info) Description 06/21/2021 Transcribed Document [facility] [place] [facility] [place] [address] ProviderRikki MD [address] [place] [address] [phone] Social History Tobacco Use Types Packs/Day Years [...] 2 - Emergent Tracking Group : [facility] ED Jasmina Rao RN - 06/21/2021 [...] PNED ; Probability: 0 ; Diagnosis Code: [id number] ED Height and Weight Height Source : Stated Height Entry Format : [place] Height, Feet : 5 ft(Converted to: 152 cm, 60 Inch) Height, Inches : 3 Inch(Converted to: 0 ft 3 Inch, 7.62 cm) Clinical Height : 160.02 cm Weight Source, ED : Critical estimated dosing weight Weight Entry Format : [place] Weight, Pounds : 220 lb Clinical Dosing Weight : 100 kg Body Surface Area (BSA) : 2.02 m2 Body Mass Index : 39.1 kg/m2 (HI) [employer] Body Weight (IBW) : 52.02 kg Jasmina Rao RN - 06/21/2021 22:09 EDT documented in this encounter Plan of Treatment Not on file documented as of this encounter Visit Diagnoses Not on filedocumented in this encounter
--- OUTSIDE RECORDS SUMMARY | 2025-04-28 11:01 | XMS_ITS | Encounter Summary ---
Author Organization [employer] ([place], [place], [place], [place]) Address [address] [place] [address] Care Team Providers Care Inspector Materials And Processes Name Role Phone Unavailable Primary Care Provider Unavailabl e Encounter Details Date Type Department Care Team (Late st Contact Info) Description 06/03/2019 Transcribed Document [facility] [facility] [address] ProviderRikki MD [address] [place] [address] [phone] Social History Tobacco Use Types Packs/Day Years [...] 06/03/2019 15:02 EDT Electronically signed by [facility] Conversion Brick Paving Checker Cerner at 01/28/2023 11:05 PM CDT documented in this encounter Plan of Treatment Not on file documented as of this encounter Visit Diagnoses Not on filedocumented in this encounter
--- OUTSIDE RECORDS SUMMARY | 2025-04-28 11:01 | XMS_ITS | Encounter Summary ---
Author Organization [employer] ([place], [place], [place]) Address [address] [place] [address] Care Team Providers Care Client Relationship Executive Name Role Phone Unavailable Primary Care Provider Unavailabl e Encounter Details Date Type Department Care Team (Late st Contact Info) Description 06/03/2019 Transcribed Document [facility] [place] [facility] [place] [address] ProviderRikki MD [address] [place], [place] [address] Social History Tobacco Use Types Packs/Day Years [...]
--- OUTSIDE RECORDS SUMMARY | 2025-04-28 11:01 | XMS_ITS | Encounter Summary ---
Author Organization [employer] ([place], [place], [place], [place]) Address [address] [place] [address] Care Team Providers Care Manufacturing Industrial Engineer Name Role Phone Unavailable Primary Care Provider Unavailabl e Encounter Details Date Type Department Care Team (Late st Contact Info) Description 06/03/2019 Transcribed Document [facility] [place] [address] [place] [address] ProviderRikki MD [address] [place], [place] [phone] Social History Tobacco Use Types Packs/Day Years [...] EDT DCP GENERIC CODE Tracking Group : [facility] ED MARC GREENWOOD RN - 06/03/2019 [...] Recent Thoughts of Harming/Killing Others : No Oil Pipe Inspector Needed : No MARC GREENWOOD RN - [...] PNED ; Probability: 0 ; Diagnosis Code: [id number] ED Height and Weight Height Source : Stated Height Entry Format : [place] Height, Feet : 5 ft(Converted to: 152 cm, 60 Inch) Height, Inches : 3 Inch(Converted to: 0 ft 3 Inch, 7.62 cm) Clinical Height : 160.02 cm Weight Source, ED : Critical estimated dosing weight Weight Entry Format : [place] Weight, Pounds : 220 lb Clinical Dosing Weight : 100 kg Body Surface Area (BSA) : 2.02 m2 Body Mass Index : 39.1 kg/m2 (HI) [place] Body Weight (IBW) : 52.02 kg MARC [...]
--- OUTSIDE RECORDS SUMMARY | 2025-04-28 11:01 | XMS_ITS | Encounter Summary ---
Author Organization [employer] ([place], [place], [place], [place]) Address [address] [place] [address] Care Team Providers Care Cylindrical Mixer Name Role Phone Unavailable Primary Care Provider Unavailabl e Encounter Details Date Type Department Care Team (Late st Contact Info) Description 06/03/2019 Transcribed Document [facility] [place] [address] [place] [address] ProviderRikki MD [address] [place], [place] [phone] Social History Tobacco Use Types Packs/Day Years [...] Communication Barrier : None Primary Language : Chilean Any Spiritual/Cultural Needs or Requests : No [...] - 06/03/2019 11:10 EDT Electronically signed by [facility] Conversion Teacher Dancing Cerner at 01/28/2023 10:51 PM CDT documented in this encounter Plan of Treatment Not on file documented as of this encounter Visit Diagnoses Not on filedocumented in this encounter
--- OUTSIDE RECORDS SUMMARY | 2025-04-28 11:01 | XMS_ITS | Encounter Summary ---
Author Organization [employer] ([place], [place], [place], [place]) Address [address] [place] [address] Care Team Providers Care Portfolio Strategist Name Role Phone Unavailable Primary Care Provider Unavailabl e Encounter Details Date Type Department Care Team (Late st Contact Info) Description 06/03/2019 Transcribed Document [facility] Family Medicine [facility] [place] [address] ProviderRikki MD [address] [place] [id number] Social History Tobacco Use Types Packs/Day [...] Montoya MD - 06/03/2019 2:51 PM CDT [facility] [place] [address] KASSI KONG :1970 Visit Time:06/03/2019 Your Visit Summary Your Care Team Admitting Physician - DRE POWER MARK, MD Attending Physician - MARIEL MCCRAY MD Primary Care Physician - ALVARADO STILES (REF), -[facility] Referring Physician - MARIEL MCCRAY MD [...] in the future. Where: [place] [address] [place] [address]- Allergies SUMAtriptan (Other Anaphylactic Shock, Other Anaphylactic [...] range between ( 0.0 and 7.0 ) [place]ana #: 0.44 K/uL -- Normal range between ( 0.16 and 1.00 ) Eos #: 0.28 x10(3)/uL -- Normal range between ( 0.00 and 0.80 ) [place] %: 5.2 % -- Normal range between [...] ) Urine Bilirubin Dipstick: Negative Urine Specific [place]: 1.021 -- Normal range between ( 1.005 [...] stand. This can reduce dizziness. ??? Take wptf-xhq-zlsxxwn and prescription medicines only as told by [...] 10/01/2006 Document Revised: 03/08/2017 Document Reviewed: 06/14/2016 [employer] Interactive Patient Education ?? 2018 [employer] Head Injury, Adult There are many [...] Ask your health care provider for a aqqm-fl-twfl plan for gradually returning to activities. ??? [...] your friends, family, a trusted colleague, and aquacultural worker supervisor about your injury, symptoms, and restrictions. Have them watch for any new or worsening problems. General instructions ??? Take taqo-aqi-faltyxh and prescription medicines only as told by [...] 04/10/2017 [employer] Interactive Patient Education ?? 2019 [employer] Contusion A contusion is a deep [...] This is often called the RICE strategy. Hpsr-uuj-upgmjsl anti-inflammatory medicines may also be recommended for [...] are sitting or lying down. ??? Take bxin-biv-bwdxaqs and prescription medicines only as told by [...] 07/11/2006 Document Revised: 02/08/2017 Document Reviewed: 02/16/2016 [employer] Interactive Patient Education ?? 2019 [employer] Concussion, Adult A concussion is a [...] are taking any medicines, including prescription medicines, foaq-oif-egbsxnz medicines, and natural remedies. Some medicines, such [...] returning to activities. General instructions ??? Take xpgy-idp-ueckwob and prescription medicines only as told by [...] Tell your teachers, school nurse, school counselor, assistant field hockey coach, sports athletic trainer, or aquacultural worker supervisor about your injury, symptoms, and restrictions. Tell [...] 12/21/2004 Document Revised: 09/11/2017 Document Reviewed: 09/11/2017 [employer] Interactive Patient Education ?? 2019 [employer] Emergency Awareness and Preventative Care STROKE [...] Assistance with quitting is available by contacting 6-473-XABT-NOW. This is a free resource providing counseling, [...] was given the opportunity to ask questions. Patient/Environmental Aid Name: Patient/Environmental Aid Signature: Relationship to Patient: Clinician/Hospital Environmental Aid Signature: Please Provide a Telephone Number Where You Can Be Reached: Is it Permissible To Leave a Message? Date: documented in this encounter Plan of Treatment Not on file documented as of this encounter Visit Diagnoses Not on filedocumented in this encounter
--- OUTSIDE RECORDS SUMMARY | 2025-04-28 11:01 | XMS_ITS | Encounter Summary ---
Author Organization [employer] ([place], [place], [place], [place]) Address [address] [place] [address] Care Team Providers Care Wardrobe Mistress Name Role Phone Unavailable Primary Care Provider Unavailabl e Encounter Details Date Type Department Care Team (Late st Contact Info) Description 06/03/2019 Transcribed Document [facility] Family Medicine [facility] [place] [address] ProviderRikki MD [address] [place] [id number] Social History Tobacco Use Types Packs/Day Years [...] Historical ProviderMD - 06/03/2019 2:48 PM CDT Electronically signed by Giacomo Azar [employer] Rampman Rajwinder at 01/28/2023 11:12 PM CDT documented in this encounter Plan of Treatment Not on file documented as of this encounter Visit Diagnoses Not on filedocumented in this encounter
--- OUTSIDE RECORDS SUMMARY | 2025-04-28 11:02 | XMS_ITS | Clinical Summary ---
Author Organization [facility] [place] Address [address] [place] [address] Care Team Providers Care Engineering Operator Name Role Phone Valentin Daniel MD Primary Care Provider [phone] Allergies Active Allergy Reactions Criticality Noted Date [...] cream 01/21/20 21 Active ergocalciferol 1.25 MG (78560 UT) capsule TAKE ONE CAPSULE BY MOUTH EVERY WEEK DIRECTED 03/01/20 21 Active HYDROcodone-acetam inophen ([place]) 10-325 MG tablet TAKE ONE TABLET BY [...] MG tablet 01/28/20 24 Active nystatin (Mycostatin) 264353 UNIT/GM powder 02/01/20 24 Active omeprazole (PriLOSEC) [...] Type Department Care Team Description 02/16/2025 [facility] [address] [place] [address] Valentin Daniel MD Left foot drop (Primary Dx); Mechanical problems with limbs; Polyneuropathy 02/05/2025 [facility] [address] [place] [address] Valentin Daniel MD Polyneuropathy (Primary Dx); Foot drop, left foot from Last 3 Months Immunizations Immunization Administration [...] Description 05/06/2025 1:20 PM EDT Office Visit [facility] [address] [place] [phone] Angela Todd APRN [address] [place] [address] 10/30/2025 8:00 AM EST Consult [facility] [address] [place] [address] Sim Tillman MD [address] [place] [phone] Health Maintenance Due Date Last Done Comments [...] (2 - Td or Tdap) 06/20/2021 06/20/2011 [id number] Vaccine (4 - season) 2024 07/14/2021, 11/17/2020, 10/28/2020 [facility]-Influenza Vaccine (#1) 06/15/202508/25, 08/06/2023, 08/10/2022, Additional history exists [facility]-Depression Screening 07/16/2025 07/16/2024, 01/13 [facility]-Zoster Vaccines Completed 01/16/2022, [facility]-Obesity Intervention Completed 024, 02/14/2024, 02/13/2023 HPV Vaccines Aged Out No longer eligi [...] MRSA 04/20/2021 04/20/2021 Insurance [employer] Care Teams Engineering Operator Relationship Specialty Start Date End Date Valentin Daniel MD PCP - General 09/18/22
[2025-04-28 14:28] LABS: PHA INR Fingerstick 2.0 (0.9-1.1)
== END 2025-04-28 14:51 ==
LOC: RAD 10:53
PROVIDERS: PCP Family Medicine; Visit Provider Physician Assistant
DX: S82.65XA Nondisplaced fracture of lateral malleolus of left fibula, initial encounter for closed fracture (principal)
CPT/HCPCS: 73610; 85610; 99211; G0463

== ENCOUNTER 2025-05-07 15:09 | Outpatient (CLI) | payer OTHER, SELFPAY ==
--- OUTSIDE RECORDS SUMMARY | 2025-05-06 13:20 | XMS_ITS | Encounter Summary ---
Author Organization [facility] Address [address] [place] [address] Care Team Providers Care Laboratory Aide Name Role Phone Valentin Daniel MD Primary Care Provider [phone] Reason for Visit * Reason Comments Follow-up Mental status, decre ased Encounter Details Date Type Department Care Team (Latest Contact Info) Description 05/06/2025 1:20 PM EDT Office Visit [facility] [address] [place] [address] Angela Todd L, ORTHOTIST [address] [place] [address] Positive RENETTA (antinuclear antibody) (Primary [...] not drink 05/06/2025 1:22 PM EDT Krissy uGzman Q3: How often do you have six [...] encounter Miscellaneous Notes * Progress Notes - Angela Todd Josie, ORTHOTIST - 05/06/2025 1:20 PM EDT Kassi Claduio is a 55 y.o. female Chief complaint: [...] - SSA. - SSB. - Daniels. - [employer]. 10 year history of Raynaud's. Describes blanching. No digit ulcerations. History of multiple blood clots. + LAC x 2. - B2 glycoprotein. - cardiolipin. Rash on chest that is now resolved with use of HCQ. 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 Med hx: Hydroxychloriquine (2018-current) Interim history: Last [...] Pt still struggles with fibromyalgia. Currently takes Deerfield and Lyrica. Denies any blood clots. Continues on hydroxychloriquine. Pt has upcoming eye exam in June. She has had several UTI's and kidney stones since the last visit. She follows with pain management for CBP. She endorses morning stiffness, around 30 minutes. She had XR completed at [facility]. She is following with Dr. Billingsley, orthopedics at [facility]. She denies any SOB, CP Review [...] allergic reaction 07/16/2024 Acute CVA (cerebrovascular accident) ([facility]) 07/16/2024 Acute hypokalemia 07/16/2024 This has been repleted and was a postsurgical issue. 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 Antiphospholipid antibody syndrome ([facility]) 10/28/2018 Anxiety 08/18/2015 Atypical angina 07/16/2024 Back pain 06/25/2013 Brown's esophagus without dysplasia Brown's esophagus without dysplasia Bronchitis 07/16/2024 CAD (coronary artery disease) 07/16/2024 Calcaneal spur, left 07/16/2024 Calculus of ureterovesical junction (UVJ) 07/16/2024 Callus of foot 07/16/2024 Cardiac murmur 07/16/2024 CHF (congestive heart failure) ([facility]) 07/16/2024 Close exposure to COVID-19 virus 07/16/2024 Conversions - Other Depression Conversions - Other Hiatal Hernia Conversions - Other Leiomyoma Of The Uterus Conversions - Other Lyme Disease Cough 07/16/2024 COVID-19 07/16/2024 Diastolic dysfunction 07/16/2024 Dizziness 07/16/2024 Dropfoot 07/16/2024 DVT (deep venous thrombosis) ([facility]) 04/04/2016 Dysuria 07/16/2024 Edema 07/16/2024 Enterocolitis due to Clostridium difficile, not specified as recurrent Clostridium difficile diarrhea Environmental and seasonal allergies 07/16/2024 Essential hypertension 11/03/2015 Facial paresthesia 07/16/2024 Fall 07/16/2024 Falling 07/16/2024 Fibromyalgia 11/08/2019 Ganglion, unspecified site Ganglion Gastro-esophageal reflux disease without esophagitis 06/25/2013 GERD with esophagitis 07/16/2024 Heart failure Hyperparathyroidism ([facility]) 07/16/2024 Hypertensive heart disease 07/16/2024 Injury of [...] Left ankle instability 07/16/2024 Left leg DVT ([facility]) 07/16/2024 Left leg weakness 07/16/2024 Lesion of nose 07/16/2024 Lumbar nerve root impingement 06/30/2014 Lumbosacral neuritis 04/28/2015 Menopausal and female climacteric states Menopausal syndrome (hot flashes) Methicillin resistant Staphylococcus aureus infection, unspecified site MRSA (methicillin resistant Staphylococcus aureus) Migraine 07/16/2024 Morbid obesity with body mass index (BMI) of 40.0 to 49.9 ([facility]) 07/16/2024 Myalgia 06/27/2018 Other intervertebral disc displacement, [...] Procedure Laterality Date APPENDECTOMY N/A Appendectomy from [facility] BACK SURGERY N/A Back Surgery from [facility] CARPAL TUNNEL RELEASE N/A Neuroplasty Decompression Median Nerve At Carpal Tunnel from [facility] SECTION, LOW TRANSVERSE N/A Section from [facility] CHOLECYSTECTOMY N/A Cholecystectomy Laparoscopic from [facility] GASTRIC BYPASS HYSTERECTOMY N/A Hysterectomy from [facility] LAPAROSCOPIC ANDRES FUNDOPLICATION N/A Esophagogastric Fundoplasty Andres Fundoplication from [facility] OTHER SURGICAL HISTORY N/A Knee Arthroscopy from [facility] Social History Socioeconomic History Marital status: Spouse [...] Not on file 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 Marital History - Currently Social Drivers of Health Financial Resource Strain: Not on file Food Insecurity: Not on file Transportation Needs: Not on file Physical Activity: Not on file Stress: Not on file Social Connections: Unknown (07/23/2023) [facility] Family and Community Support Help with Day-to-Day Activities: Not on file Lonely or Isolated: Not on file Intimate Partner Violence: Unknown (07/23/2023) [facility] Abuse Screen Unsafe at Home or Work/School: Not on file Feels Threatened by Someone?: Not on file Does Anyone Keep You from Contacting Others or Doint Things Outside the Home?: Not on file Physical Sign of Abuse Present: Not on file Housing Stability: Unknown (07/23/2023) [facility] Housing Stability Current Living Arrangements: Not on [...] Take 1 tablet by mouth daily. HYDROcodone-acetaminophen (Deerfield) 10-325 MG tablet TAKE ONE TABLET BY [...] (Temovate) 0.05 % cream ergocalciferol 1.25 MG (09416 UT) capsule TAKE ONE CAPSULE BY MOUTH EVERY WEEK DIRECTED ferrous sulfate 325 (65 Fe) MG tablet PLEASE SEE ATTACHED FOR DETAILED DIRECTIONS (Patient not taking: Reported on 07/16/2024) furosemide (Lasix) 20 MG tablet if needed. nystatin (Mycostatin) 552263 UNIT/GM powder omeprazole (PriLOSEC) [address] [...] consider testing for antibodies against cardiolipin and [id number] I. Final aPTT Lupus Anticoagulant Sensitive 07/16/2024 [...] Glycoprotein IgM Inter* 07/16/2024 Negative Negative Final [id number] 1, IgA Antibody 07/16/2024 <10 <=20 ALDEN [...] assessment: Patient Global: --/10 Rapid 3 score: 14 CDAI: 14 Assessment/Plan Diagnosis Plan 1. Positive [...] by another provider. Currently taking Lyrica and Deerfield - Continue with pain management. 4. Bilateral hip pain Imaging from 03/07 with mild degenerative changes 5. [facility] use of hydroxychloriquine 6. High risk medication use -routine labs today -pt is due for eye exam in June [facility] 6 months The patient was counseled about [...] Info) Description 10/30/2025 8:00 AM EST Consult [facility] [address] [place] [address] Sim Tillman MD [address] [place] [address] 11/11/2025 12:50 PM EST Office Visit [facility] Medicine Specialties [address] [place] [address] Angela Todd, ANGELITO [address] [facility] [address] [place] [address] Pending Results Name Type Priority Associated Diagnoses Date /Time Double-Stranded DNA (dsDNA) Antibody, IgG by IFA Lab Routine Positive RENETTA (antinuclear antibody) High risk medication use Long-term use of hydroxychloroquine 05/06/2025 2:08 PM EDT Scheduled Orders Name Type Priority Associated Diagnoses Orde r Schedule Double-Stranded DNA (dsDNA) Antibody, IgG by IFA Lab Routine Positive RENETTA (antinuclear antibody) High risk medication use Long-term use of hydroxychloroquine Expected: 05/06/2025 (Approximate), Expires: 11/06/2026 documented as of this encounter Results * (ABNORMAL) Urinalysis with reflex microscopic (Culture NOT Included) (05/06/2025 2:30 PM EDT) Color, Urine Dark Yellow LAB URINALYSIS - AUTOMATED METHOD 05/06/2025 4:28 PM EDT [facility] Clarity, Urine Cloudy LAB URINALYSIS - AUTOMATED METHOD 05/06/2025 4:28 PM EDT [facility] Spec Odon, Urine 1.026 1.005 - 1.030 LAB URINALYSIS - AUTOMATED METHOD 05/06/2025 4:28 PM EDT [facility] pH, Urine 5.5 5.0 - 8.0 LAB URINALYSIS - AUTOMATED METHOD 05/06/2025 4:28 PM EDT [facility] Protein, Urine 30(A) Negative mg/dL LAB URINALYSIS - AUTOMATED METHOD 05/06/2025 4:28 PM EDT [facility] Glucose, Urine >=1000(A) Negative mg/dL LAB URINALYSIS - AUTOMATED METHOD 05/06/2025 4:28 PM EDT [facility] Ketones, Urine Trace(A) Negative mg/dL LAB URINALYSIS - AUTOMATED METHOD 05/06/2025 4:28 PM EDT [facility] Blood, Urine Large(A) Negative LAB URINALYSIS - AUTOMATED METHOD 05/06/2025 4:28 PM EDT [facility] Bilirubin, Urine Small(A) Negative LAB URINALYSIS - AUTOMATED METHOD 05/06/2025 4:28 PM EDT [facility] Urobilinogen, Urine 0.2 0.2 to 1.0 mg/dL LAB URINALYSIS - AUTOMATED METHOD 05/06/2025 4:28 PM EDT [facility] Leukocytes, Urine Negative Negative LAB URINALYSIS - AUTOMATED METHOD 05/06/2025 4:28 PM EDT [facility] Nitrite, Urine Negative Negative LAB URINALYSIS - AUTOMATED METHOD 05/06/2025 4:28 PM EDT [facility] RBC, Urine >50(A) 0 to 3 /HPF LAB URINALYSIS - AUTOMATED METHOD 05/06/2025 4:28 PM EDT [facility] WBC, Urine 6 - 10(A) 0 to 5 /HPF LAB URINALYSIS - AUTOMATED METHOD 05/06/2025 4:28 PM EDT [facility] Squamous Epithelial Cells 0 - 2 0 to 5 /HPF LAB URINALYSIS - AUTOMATED METHOD 05/06/2025 4:28 PM EDT [facility] Hyaline Casts 0 - 2 0 to 5 /LPF LAB URINALYSIS - AUTOMATED METHOD 05/06/2025 4:28 PM EDT [facility] Bacteria, Urine Negative Negative LAB URINALYSIS - AUTOMATED METHOD 05/06/2025 4:28 PM EDT [facility] Renal Tubular Cells Present Absent 05/06/2025 4:28 PM EDT [facility] Transitional Epithelial Cells Present Absent 05/06/2025 4:28 PM EDT [facility] Calcium Oxalate Crystals Present Absent 05/06/2025 4:28 PM EDT [facility] Urine Urine specimen obtained by clean catch procedure / Unknown Non-blood Collection / Unknown 05/06/2025 2:30 PM EDT 05/06/2025 2:30 PM EDT Narrative [facility] - 05/06/2025 4:28 PM EDT Performed by manual method us Angela L Peyton ORTHOTIST LAB URINE ORDERABLES Veronica l Result Performing Organization Address [facility] Co de Phone Number [facility] [address] [place] [address] * Protein, Random, Urine with Creatinine (05/06/2025 2:30 PM EDT) Protein, Urine 20 mg/dL 05/06/2025 4:34 PM EDT [facility] Creatinine, Urine 141 mg/dL 05/06/2025 4:34 PM EDT [facility] Protein/Creatin ine Ratio 0.1 mg/mg Creat 05/06/2025 4:34 PM EDT [facility] Urine Urine specimen obtained by clean catch procedure / Unknown Non-blood Collection / Unknown 05/06/2025 2:30 PM EDT 05/06/2025 2:30 PM EDT us Angela Becerraly ORTHOTIST LAB URINE ORDERABLES Veronica l Result Performing Organization Address [facility] Co de Phone Number [facility] [address] [place] [address] * (ABNORMAL) CBC and Differential (05/06/2025 2:08 PM EDT) WBC Count 9.44 3.70 - 10.30 10*3/uL LAB HEMATOLOGY METHOD 05/06/2025 3:39 PM EDT [facility] RBC Count 5.15 3.90 - 5.20 10*6/uL LAB HEMATOLOGY METHOD 05/06/2025 3:39 PM EDT [facility] HGB 14.4 11.2 - 15.7 g/dL LAB HEMATOLOGY METHOD 05/06/2025 3:39 PM EDT [facility] HCT 44.7 34.0 - 45.0 % LAB HEMATOLOGY METHOD 05/06/2025 3:39 PM EDT [facility] Platelet Count 337 155 - 369 10*3/uL LAB HEMATOLOGY METHOD 05/06/2025 3:39 PM EDT [facility] MCV 87 79 - 98 fL LAB HEMATOLOGY METHOD 05/06/2025 3:39 PM EDT [facility] MCH 28.0 26.0 - 32.0 pg LAB HEMATOLOGY METHOD 05/06/2025 3:39 PM EDT [facility] MCHC 32.2 30.7 - 35.5 g/dL LAB HEMATOLOGY METHOD 05/06/2025 3:39 PM EDT [facility] RDW 13.9 11.5 - 14.5 % LAB HEMATOLOGY METHOD 05/06/2025 3:39 PM EDT [facility] MPV 11.9 8.8 - 12.5 fL LAB HEMATOLOGY METHOD 05/06/2025 3:39 PM EDT [facility] nRBC 0.0 <=0.0 per 100 WBCs LAB HEMATOLOGY METHOD 05/06/2025 3:39 PM EDT [facility] Differential Type Automated LAB HEMATOLOGY METHOD 05/06/2025 3:39 PM EDT [facility] Neutrophils % 56 % LAB HEMATOLOGY METHOD 05/06/2025 3:39 PM EDT [facility] Lymphocytes % 32 % LAB HEMATOLOGY METHOD 05/06/2025 3:39 PM EDT [facility] Monocytes % 6 % LAB HEMATOLOGY METHOD 05/06/2025 3:39 PM EDT [facility] Eosinophils % 5 % LAB HEMATOLOGY METHOD 05/06/2025 3:39 PM EDT [facility] Basophils % 1 % LAB HEMATOLOGY METHOD 05/06/2025 3:39 PM EDT [facility] Immature Granulocytes % 0 % LAB HEMATOLOGY METHOD 05/06/2025 3:39 PM EDT [facility] Neutrophils Absolute 5.32 1.60 - 6.10 10*3/uL LAB HEMATOLOGY METHOD 05/06/2025 3:39 PM EDT [facility] Lymphocytes Absolute 3.00 1.20 - 3.90 10*3/uL LAB HEMATOLOGY METHOD 05/06/2025 3:39 PM EDT [facility] Monocytes Absolute 0.56 0.30 - 0.90 10*3/uL LAB HEMATOLOGY METHOD 05/06/2025 3:39 PM EDT [facility] Eosinophils Absolute 0.43 0.00 - 0.50 10*3/uL LAB HEMATOLOGY METHOD 05/06/2025 3:39 PM EDT [facility] Basophils Absolute 0.11(H) 0.00 - 0.10 10*3/uL LAB HEMATOLOGY METHOD 05/06/2025 3:39 PM EDT [facility] Immature Granulocytes Absolute 0.02 0.00 - 0.06 10*3/uL LAB HEMATOLOGY METHOD 05/06/2025 3:39 PM EDT [facility] Blood Venous blood specimen / Unknown Venipuncture / Unknown 05/06/2025 2:08 PM EDT 05/06/2025 2:09 PM EDT Narrative [facility] - 05/06/2025 3:39 PM EDT Therapeutic decision making should be based on absolute values, rather than percentages. us Angela Todd APRN LAB BLOOD ORDERABLES Veronica syed Result [facility] [address] [place] [address] * (ABNORMAL) Hepatic Function Panel (05/06/2025 2:08 PM EDT) Conjugated Bilirubin, Plasma <0.2 <=0.3 mg/dL 05/06/2025 3:35 PM EDT [facility] Alkaline Phosphatase, Plasma 107(H) 35 - 104 U/L 05/06/2025 3:35 PM EDT [facility] Total Bilirubin, Plasma 0.2 0.2 - 1.1 mg/dL 05/06/2025 3:35 PM EDT [facility] Albumin, Plasma 3.9 3.5 - 5.2 g/dL 05/06/2025 3:35 PM EDT [facility] Total Protein 7.2 6.3 - 7.9 g/dL 05/06/2025 3:35 PM EDT [facility] ALT, Plasma 43(H) 10 - 35 U/L 05/06/2025 3:35 PM EDT [facility] AST, Plasma 35 10 - 35 U/L 05/06/2025 3:35 PM EDT [facility] Blood Venous blood specimen / Unknown Venipuncture / Unknown 05/06/2025 2:08 PM EDT 05/06/2025 2:09 PM EDT us Angela Becerraly ORTHOTIST LAB BLOOD ORDERABLES Veronica l Result Performing Organization Address City/[facility]/ZIP Co de Phone Number [facility] [address] [place] [address] * Creatinine, Plasma (05/06/2025 2:08 PM EDT) Creatinine, Plasma 0.62 0.60 - 1.10 mg/dL 05/06/2025 3:35 PM EDT [facility] eGFRcr 106.0 mL/min/1.7 3m*2 05/06/2025 3:35 PM EDT [facility] Comment:Reported eGFRcr in m L/min/1.73m2 is based the CKD-EPI 2020 equation that does not use a race coefficient. Blood Venous blood specimen / Unknown Venipuncture / Unknown 05/06/2025 2:08 PM EDT 05/06/2025 2:09 PM EDT us Angela Todd ORTHOTIST LAB BLOOD ORDERABLES Veronica l Result Performing Organization Address City/[facility]/ZIP Co de Phone Number [facility] [address] [place] [address] * C3 Complement (05/06/2025 2:08 PM EDT) C3 Complement 149 84 - 166 mg/dL 05/06/2025 3:30 PM EDT [facility] Blood Venous blood specimen / Unknown Venipuncture / Unknown 05/06/2025 2:08 PM EDT 05/06/2025 2:09 PM EDT us Angela Becerraly ORTHOTIST LAB BLOOD ORDERABLES Veronica l Result Performing Organization Address City/[facility]/ZIP Co de Phone Number [facility] [address] [place] [address] * C4 Complement (05/06/2025 2:08 PM EDT) C4 Complement 25 13 - 36 mg/dL 05/06/2025 3:30 PM EDT [facility] Blood Venous blood specimen / Unknown Venipuncture / Unknown 05/06/2025 2:08 PM EDT 05/06/2025 2:09 PM EDT Angela Todd APRN LAB BLOOD ORDERABLES Veronica l Result Performing Organization Address [facility] Co de Phone Number [facility] [address] [place] [address] * C-Reactive Protein, Plasma (05/06/2025 2:08 PM EDT) CRP, Plasma <3.0 <=8.0 mg/L 05/06/2025 3:35 PM EDT [facility] Blood Venous blood specimen / Unknown Venipuncture / Unknown 05/06/2025 2:08 PM EDT 05/06/2025 2:09 PM EDT Narrative [facility] - 05/06/2025 3:35 PM EDT This CRP test is appropriate for assessment of infection, systemic inflammation and/or tissue injury. To assess cardiovascular disease risk order high sensitivity CRP (CRPH). Angela Todd APRN LAB BLOOD ORDERABLES Veronica l Result Performing Organization Address City/[facility] Co de Phone Number [facility] [address] [place] [address] * (ABNORMAL) Sedimentation Rate, Automated (05/06/2025 2:08 PM EDT) Sedimentation Rate 38(H) <30 mm/hr 2024 4:06 PM EDT [facility] Blood Venous blood specimen / Unknown Venipuncture / Unknown 05/06/2025 2:08 PM EDT 05/06/2025 2:09 PM EDT Anegla Todd ORTHOTIST LAB BLOOD ORDERABLES Veronica syed Result [facility] [address] [place] [address] documented in this encounter Visit Diagnoses Diagnosis [...] documented as of this encounter Care Teams Laboratory Aide Relationship Specialty Start Date End Date Valentin Daniel MD PCP - General 09/18/22 documented as of this encounter
--- OUTSIDE RECORDS SUMMARY | 2025-05-07 15:13 | XMS_ITS | Encounter Summary ---
Author Organization [employer] ([place], [place], [place], [place]) Address [address] [place] [address] Care Team Providers Care Financial Aid Manager Name Role Phone Unavailable Primary Care Provider Unavailabl e Encounter Details Date Type Department Care Team (Late st Contact Info) Description 06/03/2019 Transcribed Document [facility] [place] [address] ProviderRikki MD [address] [place] [address] Social History Tobacco Use Types Packs/Day [...] Montoya MD - 06/03/2019 2:51 PM CD[place] [address] KASSI KONG :1970 Visit Time:06/03/2019 Your Visit Summary Your Care Team Admitting Physician - DRE POWER MARK, MD Attending Physician - MARIEL MCCRAY MD Primary Care Physician - ALVARADO STILES (REF), -[facility] Referring Physician - MARIEL MCCRAY MD [...] in the future. Where: [place] [place] [address]- Allergies SUMAtriptan (Other Anaphylactic Shock, Other Anaphylactic [...] range between ( 0.0 and 7.0 ) Stoddard #: 0.44 K/uL -- Normal range between ( 0.16 and 1.00 ) Eos #: 0.28 x10(3)/uL -- Normal range between ( 0.00 and 0.80 ) Stoddard %: 5.2 % -- Normal range between [...] ) Urine Bilirubin Dipstick: Negative Urine Specific [place]: 1.021 -- Normal range between ( 1.005 [...] stand. This can reduce dizziness. ??? Take npss-hcx-kowiclz and prescription medicines only as told by [...] 10/01/2006 Document Revised: 03/08/2017 Document Reviewed: 06/14/2016 [employer] Interactive Patient Education ?? 2018 [employer] Head Injury, Adult There are many [...] Ask your health care provider for a fnys-vr-lvgw plan for gradually returning to activities. ??? [...] your friends, family, a trusted colleague, and frog or oyster farmworker about your injury, symptoms, and restrictions. Have them watch for any new or worsening problems. General instructions ??? Take fjzu-qgw-chqtryp and prescription medicines only as told by [...] 04/10/2017 Elsevier Interactive Patient Education ?? 2019 [employer] Contusion A contusion is a deep [...] This is often called the RICE strategy. Ynpy-ztg-kuaqwkn anti-inflammatory medicines may also be recommended for [...] are sitting or lying down. ??? Take jscs-rbf-kxgjgzu and prescription medicines only as told by [...] 07/11/2006 Document Revised: 02/08/2017 Document Reviewed: 02/16/2016 [employer] Interactive Patient Education ?? 2019 [employer] Concussion, Adult A concussion is a [...] are taking any medicines, including prescription medicines, tbvj-bup-ealmihe medicines, and natural remedies. Some medicines, such [...] returning to activities. General instructions ??? Take wses-ybx-csubxtq and prescription medicines only as told by [...] Tell your teachers, school nurse, school counselor, women's soccer coach, employment trainer, or frog or oyster farmworker about your injury, symptoms, and restrictions. Tell [...] 12/21/2004 Document Revised: 09/11/2017 Document Reviewed: 09/11/2017 [employer] Interactive Patient Education ?? 2019 [employer] Emergency Awareness and Preventative Care STROKE [...] Assistance with quitting is available by contacting 8-959-LKPB-NOW. This is a free resource providing counseling, [...] was given the opportunity to ask questions. Patient/Rn Coronary Care Unit Name: Patient/Rn Coronary Care Unit Signature: Relationship to Patient: Clinician/Hospital Rn Coronary Care Unit Signature: Please Provide a Telephone Number Where You Can Be Reached: Is it Permissible To Leave a Message? Date: documented in this encounter Plan of Treatment Not on file documented as of this encounter Visit Diagnoses Not on filedocumented in this encounter
--- OUTSIDE RECORDS SUMMARY | 2025-05-07 15:13 | XMS_ITS | Encounter Summary ---
Author Organization [employer] ([place], [place], [place], [place]) Address [address] [place] [address] Care Team Providers Care Project Coordinator Rn Name Role Phone Unavailable Primary Care Provider Unavailabl e Encounter Details Date Type Department Care Team (Late st Contact Info) Description 06/03/2019 Transcribed Document [facility] [place] [address] ProviderRikki MD [address] [place], [place] [address] Social History Tobacco Use Types Packs/Day Years [...]
--- OUTSIDE RECORDS SUMMARY | 2025-05-07 15:13 | XMS_ITS | Encounter Summary ---
Author Organization [employer] ([place], [place], [place], [place]) Address [address] [place] [address] Care Team Providers Care Machine Operator Farmworker Name Role Phone Unavailable Primary Care Provider Unavailabl e Encounter Details Date Type Department Care Team (Late st Contact Info) Description 06/21/2021 Transcribed Document [facility] Medicine [address] [place] [address] ProviderRikki MD [address] [place], [place] [id number] Social History Tobacco Use Types Packs/Day Years [...] Historical ProviderMD - 06/21/2021 9:55 PM CDT [place] Suicide Severity Rating Scale (C-SSRS) Entered On: 06/21/2021 22:29 EDT Performed On: 06/21/2021 22:27 EDT by Aruna Garcia [place] Suicide Severity Rating Scale (C-SSRS) CSSRS Past [...]
--- OUTSIDE RECORDS SUMMARY | 2025-05-07 15:13 | XMS_ITS | Referral Summary ---
Author Organization [employer] ([place], [place], [place], [place]) Address [address] [place] [address] Care Team Providers Care Christian Education Director Name Role Phone Unavailable Primary Care [...]
--- OUTSIDE RECORDS SUMMARY | 2025-05-07 15:13 | XMS_ITS | Encounter Summary ---
Author Organization [employer] ([place], [place], [place], [place]) Address [address] [place] [address] Care Team Providers Care Tobacco Grader Name Role Phone Unavailable Primary Care Provider Unavailabl e Encounter Details Date Type Department Care Team (Late st Contact Info) Description 06/22/2021 Transcribed Document [facility] [place] Family Medicine [facility] [place] [address] ProviderRikki MD [address] [place] [address] [phone] Social History Tobacco Use Types Packs/Day Years [...]
--- OUTSIDE RECORDS SUMMARY | 2025-05-07 15:13 | XMS_ITS | Encounter Summary ---
Author Organization [employer] ([place], [place], [place], [place]) Address [address] [place] [address] Care Team Providers Care Locomotive Mechanic Name Role Phone Unavailable Primary Care Provider Unavailabl e Encounter Details Date Type Department Care Team (Late st Contact Info) Description 06/03/2019 Transcribed Document [facility] [place] Family Medicine [address] [place] [address] ProviderRikki MD [address] [place], [place] [phone] Social History Tobacco Use Types Packs/Day Years [...] On: 06/03/2019 10:53 EDT by MARC GREENWOOD EKG MONITOR Triage Across the Room Triage Date/Time : 06/03/2019 10:53 EDT Chief Complaint : pt has knot on top of hand , noticed it last night, + PMS + ROM CR < 3 sec MARC GREENWOOD RN - 06/03/2019 10:53 EDT MARC GREENWOOD RN - 06/03/2019 10:53 EDT DCP GENERIC CODE Tracking Group : [facility] ED MARC GREENWOOD RN - 06/03/2019 [...] Recent Thoughts of Harming/Killing Others : No Securities Trader Needed : No MARC GREENWOOD RN - [...] PNED ; Probability: 0 ; Diagnosis Code: [id number] ED Height and Weight Height Source : Stated Height Entry Format : [place] Height, Feet : 5 ft(Converted to: 152 cm, 60 Inch) Height, Inches : 3 Inch(Converted to: 0 ft 3 Inch, 7.62 cm) Clinical Height : 160.02 cm Weight Source, ED : Critical estimated dosing weight Weight Entry Format : [place] Weight, Pounds : 220 lb Clinical Dosing Weight : 100 kg Body Surface Area (BSA) : 2.02 m2 Body Mass Index : 39.1 kg/m2 (HI) [place] Body Weight (IBW) : 52.02 kg MARC [...]
--- OUTSIDE RECORDS SUMMARY | 2025-05-07 15:13 | XMS_ITS | Encounter Summary ---
Author Organization [employer] ([place], [place], [place], [place]) Address [address] [place] [address] Care Team Providers Care Turning Lathe Tender Name Role Phone Unavailable Primary Care Provider Unavailabl e Encounter Details Date Type Department Care Team (Late st Contact Info) Description 06/22/2021 Transcribed Document [facility] [place] [address] ProviderRikki MD [address] [place] [address] [phone] Social History Tobacco Use Types Packs/Day Years [...]
--- OUTSIDE RECORDS SUMMARY | 2025-05-07 15:13 | XMS_ITS | Encounter Summary ---
Author Organization [employer] ([place], [place], [place], [place]) Address [address] [place] [address] Care Team Providers Care Cigar Packer And Picker Name Role Phone Unavailable Primary Care Provider Unavailabl e Encounter Details Date Type Department Care Team (Late st Contact Info) Description 06/22/2021 Transcribed Document [facility] [place] [facility] [place] [address] ProviderRikki MD [address] [place], [place] [phone] Social History Tobacco Use Types Packs/Day Years [...]
--- OUTSIDE RECORDS SUMMARY | 2025-05-07 15:13 | XMS_ITS | Encounter Summary ---
Author Organization [employer] ([place], [place], [place], [place]) Address [address] [place] [address] Care Team Providers Care Monument Setter Name Role Phone Unavailable Primary Care Provider Unavailabl e Encounter Details Date Type Department Care Team (Late st Contact Info) Description 06/21/2021 Transcribed Document [facility] [place] [facility] [place] [address] ProviderRikki MD [address] [place] [address] [phone] Social History Tobacco Use Types Packs/Day Years [...] Communication Barrier : None Primary Language : Latvian Any Spiritual/Cultural Needs or Requests : No [...] EDT Electronically signed by Giacomo Azar Conversion Developmental Education Instructor Cerner at 01/28/2023 10:52 PM CDT documented in this encounter Plan of Treatment Not on file documented as of this encounter Visit Diagnoses Not on filedocumented in this encounter
--- OUTSIDE RECORDS SUMMARY | 2025-05-07 15:13 | XMS_ITS | Encounter Summary ---
Author Organization [facility] Address [address] [place] [address] Care Team Providers Care Glass Block Installer Name Role Phone Valentin Daniel MD Primary Care Provider [phone] Encounter Details Date Type Department Care Team (Latest Contact Info) Description 05/06/2025 Travel Social History Tobacco Use Types Packs/Day Years [...] on file documented as of this encounter Functional Status * AUDIT-C Score [...] Krissy Guzman documented as of this encounter Plan of Treatment Upcoming Encounters Date Type Department Care Team (Late st Contact Info) Description 10/30/2025 8:00 AM EST Consult [facility] [address] [place] [address] Sim Tillman MD [address] [place] [phone] 11/11/2025 12:50 PM EST Office Visit [facility] Medicine Specialties [address] [place] [phone] Angela Todd APRN [address] [place] [phone] documented as of this encounter Visit Diagnoses Not on filedocumented in this encounter Additional Health Concerns Infection Onset Date Last Indicated Resolved 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
--- OUTSIDE RECORDS SUMMARY | 2025-05-07 15:13 | XMS_ITS | Encounter Summary ---
Author Organization [employer] ([place], [place], [place], [place]) Address [address] [place] [address] Care Team Providers Care Plant Technician/Control Room Operator Name Role Phone Unavailable Primary Care Provider Unavailabl e Encounter Details Date Type Department Care Team (Late st Contact Info) Description 06/11/2019 Transcribed Document [facility] [place] Family Medicine [address] [place] [address] ProviderRikki MD [address] [place], [place] [phone] Social History Tobacco Use Types Packs/Day Years [...]
--- OUTSIDE RECORDS SUMMARY | 2025-05-07 15:13 | XMS_ITS | Encounter Summary ---
Author Organization [employer] ([place], [place], [place], [place]) Address [address] [place] [address] Care Team Providers Care Middle School Music Teacher Name Role Phone Unavailable Primary Care Provider Unavailabl e Encounter Details Date Type Department Care Team (Late st Contact Info) Description 06/03/2019 Transcribed Document [facility] [place] [facility] [place] [address] ProviderRikki MD [address] [place] [address] [phone] Social History Tobacco Use Types Packs/Day Years [...] 06/03/2019 15:02 EDT Electronically signed by Doe [facility] Conversion Safety Patrol Officer Cerner at 01/28/2023 11:05 PM CDT documented in this encounter Plan of Treatment Not on file documented as of this encounter Visit Diagnoses Not on filedocumented in this encounter
--- OUTSIDE RECORDS SUMMARY | 2025-05-07 15:13 | XMS_ITS | Encounter Summary ---
Author Organization [employer] ([place], [place], [place], [place]) Address [address] [place] [address] Care Team Providers Care Flotation Operator Name Role Phone Unavailable Primary Care Provider Unavailabl e Encounter Details Date Type Department Care Team (Late st Contact Info) Description 06/21/2021 Transcribed Document [facility] [place] [facility] [place] [address] ProviderRikki MD [address] [place] [phone] Social History Tobacco Use Types Packs/Day Years [...] Performed On: 06/21/2021 22:09 EDT by Jasmina Roa RN ED Triage Across the Room Chief Complaint : pt c/o chest pain X 15 minutes. pt states standing up makes pain worse. pt had heart cath done in February and has hx of heart failure. Triage Date/Time : 06/21/2021 22:09 EDT Jamsina Rao RN - 06/21/2021 22:09 EDT DCP GENERIC CODE Tracking Acuity : 2 - Emergent Tracking Group : [facility] ED Jasmina Rao RN - 06/21/2021 22:09 [...] PNED ; Probability: 0 ; Diagnosis Code: [id number] ED Height and Weight Height Source : Stated Height Entry Format : [place] Height, Feet : 5 ft(Converted to: 152 cm, 60 Inch) Height, Inches : 3 Inch(Converted to: 0 ft 3 Inch, 7.62 cm) Clinical Height : 160.02 cm Weight Source, ED : Critical estimated dosing weight Weight Entry Format : [place] Weight, Pounds : 220 lb Clinical Dosing Weight : 100 kg Body Surface Area (BSA) : 2.02 m2 Body Mass Index : 39.1 kg/m2 (HI) [place] Body Weight (IBW) : 52.02 kg Jasmina Rao RN - 06/21/2021 22:09 EDT Electronically signed by Giacomo Azar Conversion Veterinary Assistant Technician Cerner at 01/28/2023 10:48 PM CDT documented in this encounter Plan of Treatment Not on file documented as of this encounter Visit Diagnoses Not on filedocumented in this encounter
--- OUTSIDE RECORDS SUMMARY | 2025-05-07 15:13 | XMS_ITS | Encounter Summary ---
Author Organization [employer] ([place], [place], [place], [place]) Address [address] [place] [address] Care Team Providers Care Ready Mix Truck Driver Name Role Phone Unavailable Primary Care Provider Unavailabl e Encounter Details Date Type Department Care Team (Late st Contact Info) Description 06/03/2019 Transcribed Document [facility] [place] [facility] [place] [address] ProviderRikki MD [address] [place] [phone] Social History Tobacco Use Types Packs/Day [...] Montoya MD - 06/03/2019 2:51 PM CDT [place] [address] KASSI KONG :1970 Visit Time:06/03/2019 Your Visit Summary Your Care Team Admitting Physician - DRE POWER MARK, MD Attending Physician - MARIEL MCCRAY MD Primary Care Physician - ALVARADO STILES (REF), -[facility] Referring Physician - MARIEL MCCRAY MD Your [...] in the future. Where: [place] [address] [place] [address]- Allergies SUMAtriptan (Other Anaphylactic Shock, Other Anaphylactic [...] range between ( 0.0 and 7.0 ) [place] #: 0.44 K/uL -- Normal range between ( 0.16 and 1.00 ) Eos #: 0.28 x10(3)/uL -- Normal range between ( 0.00 and 0.80 ) [place] %: 5.2 % -- Normal range between [...] ) Urine Bilirubin Dipstick: Negative Urine Specific [place]: 1.021 -- Normal range between ( 1.005 [...] stand. This can reduce dizziness. ??? Take gtay-jqs-rymrgxo and prescription medicines only as told by [...] 10/01/2006 Document Revised: 03/08/2017 Document Reviewed: 06/14/2016 Immediately Interactive Patient Education ?? 2018 Immediately Inc. Head Injury, Adult There are many [...] Ask your health care provider for a sqni-cl-rzca plan for gradually returning to activities. ??? [...] your friends, family, a trusted colleague, and probation worker about your injury, symptoms, and restrictions. Have them watch for any new or worsening problems. General instructions ??? Take sohk-gbl-zqvhfjx and prescription medicines only as told by [...] 04/10/2017 Elsevier Interactive Patient Education ?? 2019 [employer] Inc. Contusion A contusion is a deep [...] This is often called the RICE strategy. Hiys-poy-dkqyaer anti-inflammatory medicines may also be recommended for [...] are sitting or lying down. ??? Take lbdw-rhz-olosppy and prescription medicines only as told by [...] 07/11/2006 Document Revised: 02/08/2017 Document Reviewed: 02/16/2016 Immediately Interactive Patient Education ?? 2019 Immediately Inc. Concussion, Adult A concussion is a [...] are taking any medicines, including prescription medicines, zwpz-fiw-znsnfje medicines, and natural remedies. Some medicines, such [...] returning to activities. General instructions ??? Take lume-kvk-opxbbvo and prescription medicines only as told by [...] Tell your teachers, school nurse, school counselor, diving coach, care trainer, or probation worker about your injury, symptoms, and restrictions. [...] 12/21/2004 Document Revised: 09/11/2017 Document Reviewed: 09/11/2017 Immediately Interactive Patient Education ?? 2019 Immediately Inc. Emergency Awareness and Preventative Care STROKE [...] Assistance with quitting is available by contacting 7-933-WYEL-NOW. This is a free resource providing counseling, [...] was given the opportunity to ask questions. Patient/Obstetric Assistant Name: Patient/Obstetric Assistant Signature: Relationship to Patient: Clinician/Hospital Obstetric Assistant Signature: Please Provide a Telephone Number Where You Can Be Reached: Is it Permissible To Leave a Message? Date: Electronically signed by Doe, Giacomo Conversion Grinder Set Up Operator Internal Cerner at 01/28/2023 11:06 PM CDT documented in this encounter Plan of Treatment Not on file documented as of this encounter Visit Diagnoses Not on filedocumented in this encounter
--- OUTSIDE RECORDS SUMMARY | 2025-05-07 15:13 | XMS_ITS | Encounter Summary ---
Author Organization [employer] ([place], [place], [place], [place]) Address [address] [place] [address] Care Team Providers Care Waitress Name Role Phone Unavailable Primary Care Provider Unavailabl e Encounter Details Date Type Department Care Team (Late st Contact Info) Description 06/22/2021 Transcribed Document [facility] [place] [facility] [place] [address] ProviderRikki MD [address] [place] [phone] Social History Tobacco Use Types Packs/Day [...] Montoya MD - 06/22/2021 2:03 AM CDT [facility] [place] [address] KASSI KONG :1970 Visit Time:06/21/2021 Your [...] 2 to 3 days Where: [place] [address]- [facility] (1) Allergies SUMAtriptan (Other Anaphylactic Shock, Other [...] range between ( 0.0 and 7.0 ) [place] #: 0.52 K/uL -- Normal range between ( 0.16 and 1.00 ) Eos #: 0.24 x10(3)/uL -- Normal range between ( 0.00 and 0.80 ) [place] %: 5.3 % -- Normal range between [...] these instructions at home: Medicines ??? Take wedk-qxi-zinfwzz and prescription medicines only as told by [...] provider. Document Revised: 04/03/2019 Document Reviewed: 04/03/2019 [employer] Patient Education ?? 2020 [employer]. Emergency Awareness and Preventative Care STROKE is [...] Assistance with quitting is available by contacting 6-031-VWDH-NOW. This is a free resource providing counseling, [...] was given the opportunity to ask questions. Patient/Route Agent Name: Patient/Route Agent Signature: Relationship to Patient: Clinician/Hospital Route Agent Signature: Please Provide a Telephone Number Where You Can Be Reached: Is it Permissible To Leave a Message? Date: documented in this encounter Plan of Treatment Not on file documented as of this encounter Visit Diagnoses Not on filedocumented in this encounter
--- OUTSIDE RECORDS SUMMARY | 2025-05-07 15:13 | XMS_ITS | Encounter Summary ---
Author Organization [employer] ([place], [place], [place], [place]) Address [address] [place] [address] Care Team Providers Care Body Cleaner Name Role Phone Unavailable Primary Care Provider Unavailabl e Encounter Details Date Type Department Care Team (Late st Contact Info) Description 06/03/2019 Transcribed Document [place] [address] ProviderRikki MD [address] [place] [address] [phone] Social History Tobacco Use Types Packs/Day Years [...]
--- OUTSIDE RECORDS SUMMARY | 2025-05-07 15:13 | XMS_ITS | Encounter Summary ---
Author Organization [employer] ([place], [place]) Address [address] [place] [address] Care Team Providers Care Machine Staker Name Role Phone Unavailable Primary Care Provider Unavailabl e Encounter Details Date Type Department Care Team (Late st Contact Info) Description 06/21/[address] [facility] [place] Family Medicine [address] [place] [address] ProviderRikki MD [address] [place], [place] [address] Social History Tobacco Use Types Packs/Day Years [...] EDT Electronically signed by Giacomo Azar Conversion Melt House Centrifugal Operator Rajwinder at 01/28/2023 11:14 PM CDT documented in this encounter Plan of Treatment Not on file documented as of this encounter Visit Diagnoses Not on filedocumented in this encounter
--- OUTSIDE RECORDS SUMMARY | 2025-05-07 15:13 | XMS_ITS | Encounter Summary ---
Author Organization [employer] ([place], [place], [place], [place]) Address [address] [place] [address] Care Team Providers Care Distribution Center Manager Name Role Phone Unavailable Primary Care Provider Unavailabl e Encounter Details Date Type Department Care Team (Late st Contact Info) Description 06/22/2021 Transcribed Document [facility] [place] [facility] [place] [address] ProviderRikki MD [address] [place] [address] [phone] Social History Tobacco Use Types Packs/Day Years [...] had a heart cath done by her poison information specialist in [place] in February, she did not have any [...] EDT Height Source Stated Height Entry Format [place] Height/Length, HUNGARIAN (ft) 5 ft Height/Length HUNGAR[place] 3 Inch CLINICALHEIGHT 160.02 cm [place] Body Weight 52.02 kg Weight Source, ED Critical estimated dosing weight Weight Entry Format [place] Weight [place] lb 220 lb CLINICALWEIGHT 100 kg Body [...] Triage: ED C-SSRS: ED Clinical Reconciliation: ED lace roller: EKG: Normal Saline Flush: 10 mL, IV [...] % 30.8 % Lymph # 3.02 x10(3)/uL [place] % 5.3 % [place] # 0.52 K/uL Eos % 2.4 % [...]
--- OUTSIDE RECORDS SUMMARY | 2025-05-07 15:13 | XMS_ITS | Clinical Summary ---
Author Organization [employer] ([place], [place], [place], [place]) Address [address] [place] [address] Care Team Providers Care Brain Surgeon Name Role Phone Unavailable Primary Care Provider [...]
--- OUTSIDE RECORDS SUMMARY | 2025-05-07 15:14 | XMS_ITS | Encounter Summary ---
Author Organization [employer] ([place], [place], [place], [place]) Address [address] [place] [address] Care Team Providers Care Food Safety Technician Name Role Phone Unavailable Primary Care Provider Unavailabl e Encounter Details Date Type Department Care Team (Late st Contact Info) Description 06/03/2019 Transcribed Document [facility] [place] [address] [place] [address] ProviderRikki MD [address] [place], [place] [phone] Social History Tobacco Use Types Packs/Day Years [...] Communication Barrier : None Primary Language : Micronesian Any Spiritual/Cultural Needs or Requests : No [...] - 06/03/2019 11:10 EDT Electronically signed by [facility] Conversion Orbitread Operator Cerner at 01/28/2023 10:51 PM CDT documented in this encounter Plan of Treatment Not on file documented as of this encounter Visit Diagnoses Not on filedocumented in this encounter
--- OUTSIDE RECORDS SUMMARY | 2025-05-07 15:14 | XMS_ITS | Clinical Summary ---
Author Organization [facility] Address [address] [id number] Care Team Providers Care Motor Racer Name Role Phone Valentin Daniel MD Primary Care Provider Allergies Active Allergy Reactions Criticality Noted Date [...] cream 01/21/20 21 Active ergocalciferol 1.25 MG (94831 UT) capsule TAKE ONE CAPSULE BY MOUTH EVERY WEEK DIRECTED 03/01/20 21 Active HYDROcodone-aceta minophen ([place]) 10-325 MG tablet TAKE ONE TABLET BY [...] as otherwise directed 02/03/20 23 Active Ca Phosphate-Choleca lciferol (Calcium/Vitamin D3 Gummies) 200-5 MG-MCG chewable tablet [...] MG tablet 01/28/20 24 Active nystatin (Mycostatin) 024254 UNIT/GM powder 02/01/20 24 Active omeprazole (PriLOSEC) [...] mouth 1 (one) time each day. Active Farxiga 10 MG tablet Take 1 tablet by mouth daily. 02/03/20 25 Active desvenlafaxine (Pristiq) 50 MG 24 hr tablet Take 1 tablet by mouth daily. 03/20/20 25 Active estradiol (Estrace) 0.1 MG/GM vaginal cream USING FINGER TECHNIQUE APPLY VAGINALLY ONCE A DAY FOR 2 WEEKS THEN DECREASE TO 3 TIMES a WEEK 01/27/20 25 Active promethazine (Phenergan) 25 MG tablet Take 1 tablet by mouth every 6 hours as needed for nausea or vomiting. 04/08/20 25 Active traZODone (Desyrel) 100 MG tablet Take 1 tablet by mouth at night as needed for sleep. 04/22/20 25 Active hydroxychloroquin e (Plaquenil) 200 MG tablet Take 1 tablet by mouth 2 times a day. 180 tablet 5 05/06/20 25 Active hydroxychloroquin e (Plaquenil) 200 MG tablet TAKE 1 TABLET BY MOUTH 2 TIMES A DAY 180 tablet 1 01/16/20 25 025 Disconti nued(Reo rder) Resolved Problems Problem Noted Date Diagnosed Date [...] 07/16/2024 Retrocalcaneal bursitis (back of heel), right 04/28/2007/16/2024 DVT (deep venous thrombosis) 04/04/2016 07/16/2024 Soft tissue infection 03/01/20162023 Surgical wound infection 03/01/201611/2023 Suspected soft tissue infection 02/15/2016 07/16/2024 Essential hypertension 11/03/201507/16 Anxiety 08/18/2015 07/16/2024 Lumbosacral neuritis 04/28/2015 024 Lumbar nerve root impingement 06/30/2014 07/16/2024 Sciatica 07/14/2013 07/16/2024 Back pain 06/25/2013 07/16/2024 Gastro-esophageal reflux dis ease without esophagitis 06/25/2013 07/16/2024 Encounters Date Type Department Care Team Description 05/06/2025 1:20 PM EDT Office Visit [facility] [address] [place] [address] Angela Todd, FORGING PRESS SETTER UP Positive RENETTA (antinuclear antibody) (Primary Dx); High risk medication use; Long-term use of hydroxychloroquine 05/06/2025 Travel 02/16/2025 [facility] [address] [place] [address] Valentin Daniel MD Left foot drop (Primary Dx); Mechanical problems with limbs; Polyneuropathy 02/05/2025 [facility] [address] [place] [address] Valentin Daniel MD Polyneuropathy (Primary Dx); Foot drop, left foot from Last 3 Months Immunizations Immunization Administration Dates Next Due Influenza, Injectable, MDCK, trivalent, PF 08/25/2024 Influenza, Unspecified 08/01/2016,2014,07/28/2014,2012,07/30/2012,08/04/2011 Influenza, injectable, MDCK, preservative [...] Mass Index 31.89 05/06/2025 1:17 PM EDT Plan of Treatment Upcoming Encounters Date Type Department Care Team (Late st Contact Info) Description 10/30/2025 8:00 AM EST Consult [place] [facility] [address], [address] [place] [address] Sim Tillman MD [address] [place] [address] 11/11/2025 12:50 PM EST Office Visit [facility] [address], [address] [place] [address] Angela Todd, ANGELITO [address] [place] [address] Health Maintenance Due Date Last Done Comments [...] (2 - Td or Tdap) 06/20/2021 06/20/2011 [id number] Vaccine (4 - season) 2024 07/14/2021, 11/17/2020, 10/28/2020 [facility]-Influenza Vaccine (#1) 06/15/202508/25, 08/06/2023, 08/10/2022, Additional history exists [facility]-Depression Screening 05/06/2026 05/06/2025, 01/13 [facility]-Zoster Vaccines Completed 01/16/2022, [facility]-Obesity Intervention Completed 025, 07/16/2024, 02/14/2024, Additional history exists HPV Vaccines Aged Out [...] on patient's age to complete this topic Procedures Procedure Name Priority Date/Time Associated Diagnosis Comments URINALYSIS MICROSCOPIC FOR UA REFLEX Routine 05/06/2025 2:30 PM EDT Positive RENETTA (antinuclear antibody) High risk medication use Long-term use of hydroxychloroquine PROTEIN, URINE, RANDOM WITH CREATININE Routine 05/06/2025 2:30 PM EDT Positive RENETTA (antinuclear antibody) High risk medication use Long-term use of hydroxychloroquine URINALYSIS WITH REFLEX MICROSCOPIC Routine 05/06/2025 2:30 PM EDT Positive RENETTA (antinuclear antibody) High risk medication use Long-term use of hydroxychloroquine SEDIMENTATION RATE, AUTOMATED Routine 05/06/2025 2:08 PM EDT Positive RENETTA (antinuclear antibody) High risk medication use Long-term use of hydroxychloroquine C-REACTIVE PROTEIN, PLASMA Routine 05/06/2025 2:08 PM EDT Positive RENETTA (antinuclear antibody) High risk medication use Long-term use of hydroxychloroquine C4 COMPLEMENT Routine 05/06/2025 2:08 PM EDT Positive RENETTA (antinuclear antibody) High risk medication use Long-term use of hydroxychloroquine C3 COMPLEMENT Routine 05/06/2025 2:08 PM EDT Positive RENETTA (antinuclear antibody) High risk medication use Long-term use of hydroxychloroquine CREATININE, PLASMA Routine 05/06/2025 2: 08 PM EDT Positive RENETTA (antinuclear antibody) High risk medication use Long-term use of hydroxychloroquine HEPATIC FUNCTION PANEL Routine 05/06/2025 2:08 PM EDT Positive RENETTA (antinuclear antibody) High risk medication use Long-term use of hydroxychloroquine CBC WITH AUTO DIFFERENTIAL Routine 05/06/2025 2:08 PM EDT Positive RENETTA (antinuclear antibody) High risk medication use Long-term use of hydroxychloroquine from Last 3 Months Results * Urinalysis Microscopic Examination (05/06/2025 2:30 PM EDT) Urine Urine specimen obtained by clean catch procedure / Unknown Non-blood Collection / Unknown 05/06/2025 2:30 PM EDT 05/06/2025 2:30 PM EDT Angela Todd APRN LAB URINE ORDERABLES Veronica syed Result [facility] [address] [place] [address] * Protein, Random, Urine with Creatinine (05/06/2025 2:30 PM EDT) Protein, Urine 20 mg/dL 05/06/2025 4:34 PM EDT [facility] Creatinine, Urine 141 mg/dL 05/06/2025 4:34 PM EDT [facility] Protein/Creatin ine Ratio 0.1 mg/mg Creat 05/06/2025 4:34 PM EDT [facility] Urine Urine specimen obtained by clean catch procedure / Unknown Non-blood Collection / Unknown 05/06/2025 2:30 PM EDT 05/06/2025 2:30 PM EDT us Angela Syed Peyton EATON LAB URINE ORDERABLES Veronica kunal Result [facility] [address] [place] [address] * (ABNORMAL) Urinalysis with reflex microscopic (Culture NOT Included) (05/06/2025 2:30 PM EDT) Color, Urine Dark Yellow LAB URINALYSIS - AUTOMATED METHOD 05/06/2025 4:28 PM EDT [facility] Clarity, Urine Cloudy LAB URINALYSIS - AUTOMATED METHOD 05/06/2025 4:28 PM EDT [facility] Spec [place], Urine 1.026 1.005 - 1.030 LAB URINALYSIS - AUTOMATED METHOD 05/06/2025 4:28 PM EDT [facility] pH, Urine 5.5 5.0 - 8.0 LAB URINALYSIS - AUTOMATED METHOD 05/06/2025 4:28 PM EDT [facility] Protein, Urine 30(A) Negative mg/dL LAB URINALYSIS - AUTOMATED METHOD 05/06/2025 4:28 PM EDT [facility] Glucose, Urine >=1000(A) Negative mg/dL LAB URINALYSIS - AUTOMATED METHOD 05/06/2025 4:28 PM EDT [facility] Ketones, Urine Trace(A) Negative mg/dL LAB URINALYSIS - AUTOMATED METHOD 05/06/2025 4:28 PM EDT [facility] Blood, Urine Large(A) Negative LAB URINALYSIS - AUTOMATED METHOD 05/06/2025 4:28 PM EDT [facility] Bilirubin, Urine Small(A) Negative LAB URINALYSIS - AUTOMATED METHOD 05/06/2025 4:28 PM EDT [facility] Urobilinogen, Urine 0.2 0.2 to 1.0 mg/dL LAB URINALYSIS - AUTOMATED METHOD 05/06/2025 4:28 PM EDT [facility] Leukocytes, Urine Negative Negative LAB URINALYSIS - AUTOMATED METHOD 05/06/2025 4:28 PM EDT [facility] Nitrite, Urine Negative Negative LAB URINALYSIS - AUTOMATED METHOD 05/06/2025 4:28 PM EDT [facility] RBC, Urine >50(A) 0 to 3 /HPF LAB URINALYSIS - AUTOMATED METHOD 05/06/2025 4:28 PM EDT [facility] WBC, Urine 6 - 10(A) 0 to 5 /HPF LAB URINALYSIS - AUTOMATED METHOD 05/06/2025 4:28 PM EDT [facility] Squamous Epithelial Cells 0 - 2 0 to 5 /HPF LAB URINALYSIS - AUTOMATED METHOD 05/06/2025 4:28 PM EDT [facility] Hyaline Casts 0 - 2 0 to 5 /LPF LAB URINALYSIS - AUTOMATED METHOD 05/06/2025 4:28 PM EDT [facility] Bacteria, Urine Negative Negative LAB URINALYSIS - AUTOMATED METHOD 05/06/2025 4:28 PM EDT [facility] Renal Tubular Cells Present Absent 05/06/2025 4:28 PM EDT [facility] Transitional Epithelial Cells Present Absent 05/06/2025 4:28 PM EDT [facility] Calcium Oxalate Crystals Present Absent 05/06/2025 4:28 PM EDT [facility] Urine Urine specimen obtained by clean catch procedure / Unknown Non-blood Collection / Unknown 05/06/2025 2:30 PM EDT 05/06/2025 2:30 PM EDT Narrative [facility] - 05/06/2025 4:28 PM EDT Performed by manual method us Angela Todd APRN LAB URINE ORDERABLES Veronica syed Result [facility] [address] [place] [address] * Creatinine, Plasma (05/06/2025 2:08 PM EDT) Creatinine, Plasma 0.62 0.60 - 1.10 mg/dL 05/06/2025 3:35 PM EDT [facility] eGFRcr 106.0 mL/min/1.7 3m*2 05/06/2025 3:35 PM EDT [facility] Comment:Reported eGFRcr in m L/min/1.73m2 is based the CKD-EPI 2020 equation that does not use a race coefficient. Blood Venous blood specimen / Unknown Venipuncture / Unknown 05/06/2025 2:08 PM EDT 05/06/2025 2:09 PM EDT Angela Todd APRN LAB BLOOD ORDERABLES Veronica l Result Performing Organization Address City/[facility]/ZIP Co de Phone Number [facility] [address] [place] [address] * (ABNORMAL) Sedimentation Rate, Automated (05/06/2025 2:08 PM EDT) Sedimentation Rate 38(H) <30 mm/hr 2024 4:06 PM EDT [facility] Blood Venous blood specimen / Unknown Venipuncture / Unknown 05/06/2025 2:08 PM EDT 05/06/2025 2:09 PM EDT Angela Todd APRN LAB BLOOD ORDERABLES Veronica l Result Performing Organization Address City/[facility]/ZIP Co de Phone Number [facility] [address] [place] [address] * (ABNORMAL) CBC and Differential (05/06/2025 2:08 PM EDT) WBC Count 9.44 3.70 - 10.30 10*3/uL LAB HEMATOLOGY METHOD 05/06/2025 3:39 PM EDT [facility] RBC Count 5.15 3.90 - 5.20 10*6/uL LAB HEMATOLOGY METHOD 05/06/2025 3:39 PM EDT [facility] HGB 14.4 11.2 - 15.7 g/dL LAB HEMATOLOGY METHOD 05/06/2025 3:39 PM EDT [facility] HCT 44.7 34.0 - 45.0 % LAB HEMATOLOGY METHOD 05/06/2025 3:39 PM EDT [facility] Platelet Count 337 155 - 369 10*3/uL LAB HEMATOLOGY METHOD 05/06/2025 3:39 PM EDT [facility] MCV 87 79 - 98 fL LAB HEMATOLOGY METHOD 05/06/2025 3:39 PM EDT [facility] MCH 28.0 26.0 - 32.0 pg LAB HEMATOLOGY METHOD 05/06/2025 3:39 PM EDT [facility] MCHC 32.2 30.7 - 35.5 g/dL LAB HEMATOLOGY METHOD 05/06/2025 3:39 PM EDT [facility] RDW 13.9 11.5 - 14.5 % LAB HEMATOLOGY METHOD 05/06/2025 3:39 PM EDT [facility] MPV 11.9 8.8 - 12.5 fL LAB HEMATOLOGY METHOD 05/06/2025 3:39 PM EDT [facility] nRBC 0.0 <=0.0 per 100 WBCs LAB HEMATOLOGY METHOD 05/06/2025 3:39 PM EDT [facility] Differential Type Automated LAB HEMATOLOGY METHOD 05/06/2025 3:39 PM EDT [facility] Neutrophils % 56 % LAB HEMATOLOGY METHOD 05/06/2025 3:39 PM EDT [facility] Lymphocytes % 32 % LAB HEMATOLOGY METHOD 05/06/2025 3:39 PM EDT [facility] Monocytes % 6 % LAB HEMATOLOGY METHOD 05/06/2025 3:39 PM EDT [facility] Eosinophils % 5 % LAB HEMATOLOGY METHOD 05/06/2025 3:39 PM EDT [facility] Basophils % 1 % LAB HEMATOLOGY METHOD 05/06/2025 3:39 PM EDT [facility] Immature Granulocytes % 0 % LAB HEMATOLOGY METHOD 05/06/2025 3:39 PM EDT [facility] Neutrophils Absolute 5.32 1.60 - 6.10 10*3/uL LAB HEMATOLOGY METHOD 05/06/2025 3:39 PM EDT [facility] Lymphocytes Absolute 3.00 1.20 - 3.90 10*3/uL LAB HEMATOLOGY METHOD 05/06/2025 3:39 PM EDT [facility] Monocytes Absolute 0.56 0.30 - 0.90 10*3/uL LAB HEMATOLOGY METHOD 05/06/2025 3:39 PM EDT [facility] Eosinophils Absolute 0.43 0.00 - 0.50 10*3/uL LAB HEMATOLOGY METHOD 05/06/2025 3:39 PM EDT [facility] Basophils Absolute 0.11(H) 0.00 - 0.10 10*3/uL LAB HEMATOLOGY METHOD 05/06/2025 3:39 PM EDT [facility] Immature Granulocytes Absolute 0.02 0.00 - 0.06 10*3/uL LAB HEMATOLOGY METHOD 05/06/2025 3:39 PM EDT [facility] Blood Venous blood specimen / Unknown Venipuncture / Unknown 05/06/2025 2:08 PM EDT 05/06/2025 2:09 PM EDT Narrative [facility] - 05/06/2025 3:39 PM EDT Therapeutic decision making should be based on absolute values, rather than percentages. Angela Todd FORGING PRESS SETTER UP LAB BLOOD ORDERABLES Veronica l Result Performing Organization Address City/[facility] Co de Phone Number [facility] [address] [place] [address] * C3 Complement (05/06/2025 2:08 PM EDT) C3 Complement 149 84 - 166 mg/dL 05/06/2025 3:[address] [facility] Blood Venous blood specimen / Unknown Venipuncture / Unknown 05/06/2025 2:08 PM EDT 05/06/2025 2:09 PM EDT Angela Todd FORGING PRESS SETTER UP LAB BLOOD ORDERABLES Veronica l Result Performing Organization Address City/[facility]/ZIP Co de Phone Number [facility] [address] [place] [address] * C4 Complement (05/06/2025 2:08 PM EDT) C4 Complement 25 13 - 36 mg/dL 05/06/2025 3:30 PM EDT [facility] Blood Venous blood specimen / Unknown Venipuncture / Unknown 05/06/2025 2:08 PM EDT 05/06/2025 2:09 PM EDT Angela Todd FORGING PRESS SETTER UP LAB BLOOD ORDERABLES Veronica l Result Performing Organization Address City/[facility]/ZIP Co de Phone Number [facility] [address] [place] [address] * C-Reactive Protein, Plasma (05/06/2025 2:08 PM EDT) CRP, Plasma <3.0 <=8.0 mg/L 05/06/2025 3:35 PM EDT [facility] Blood Venous blood specimen / Unknown Venipuncture / Unknown 05/06/2025 2:08 PM EDT 05/06/2025 2:09 PM EDT Narrative [facility] - 05/06/2025 3:35 PM EDT This CRP test is appropriate for assessment of infection, systemic inflammation and/or tissue injury. To assess cardiovascular disease risk order high sensitivity CRP (CRPH). us Angela Todd APRN LAB BLOOD ORDERABLES Veronica syed Result [facility] [address] [place] [address] * (ABNORMAL) Hepatic Function Panel (05/06/2025 2:08 PM EDT) Conjugated Bilirubin, Plasma <0.2 <=0.3 mg/dL 05/06/2025 3:35 PM EDT [facility] Alkaline Phosphatase, Plasma 107(H) 35 - 104 U/L 05/06/2025 3:35 PM EDT [facility] Total Bilirubin, Plasma 0.2 0.2 - 1.1 mg/dL 05/06/2025 3:35 PM EDT [facility] Albumin, Plasma 3.9 3.5 - 5.2 g/dL 05/06/2025 3:35 PM EDT [facility] Total Protein 7.2 6.3 - 7.9 g/dL 05/06/2025 3:35 PM EDT [facility] ALT, Plasma 43(H) 10 - 35 U/L 05/06/2025 3:35 PM EDT [facility] AST, Plasma 35 10 - 35 U/L 05/06/2025 3:35 PM EDT [facility] Blood Venous blood specimen / Unknown Venipuncture / Unknown 05/06/2025 2:08 PM EDT 05/06/2025 2:09 PM EDT us Angela Todd APRN LAB BLOOD ORDERABLES Veronica syed Result [facility] [address] [place] [address] from Last 3 Months Additional Health Concerns Infection Onset Date 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
--- OUTSIDE RECORDS SUMMARY | 2025-05-07 15:14 | XMS_ITS | Encounter Summary ---
Author Organization [facility] Address [address] [place] [address] Care Team Providers Care Bank Vault Custodian Name Role Phone Valentin Daniel MD Primary Care Provider [phone] Encounter Details Date Type Department Care Team (Latest Contact Info) Description 02/05/2025 [facility] [address] [place] [address] Valentin Daniel MD [address] [place] [address] Polyneuropathy (Primary Dx); Foot drop, left foot [...] Info) Description 10/30/2025 8:00 AM EST Consult [place] [facility] [address], [address]st [place] [address] Sim Tillman MD [address] [place] [address] 11/11/2025 12:50 PM EST Office Visit [facility] [address] [place] [address] Angela Todd, PHYSICAL GEOGRAPHER [address] [place] [address] documented as of this encounter [...] documented as of this encounter Care Teams Bank Vault Custodian Relationship Specialty Start Date End Date Valentin Daniel MD PCP - General 09/18/22 documented as of this encounter
--- OUTSIDE RECORDS SUMMARY | 2025-05-07 15:14 | XMS_ITS | Encounter Summary ---
Author Organization [facility] Address [address] [place] [address] Care Team Providers Care Industrial Cleaning Technician Name Role Phone Valentin Daniel MD Primary Care Provider [phone] Reason for Referral * Consultation (Routine) - Authorized Specialty Diagnoses / Procedures Referred By Contac t Referred To Contact Neurology Diagnoses Left foot drop Mechanical problems with limbs Polyneuropathy Valentin Daniel MD [address] [place] [address] Phone: tel: fax: Referral ID Status Reason Start Date Expiration Date Visits Requested Visits Authorized [id number] Authorized Specialty Services Required 02/16/2025 08/18/2026 1 1 Encounter Details Date Type Department Care Team (Late st Contact Info) Description 02/16/2025 [facility] [address] [place] [address] Valentin Daniel MD [address] [place] [id number] Left foot drop (Primary Dx); Mechanical problems [...] Info) Description 10/30/2025 8:00 AM EST Consult [facility] [address], [address] [place] [address] Sim Tillman MD [address] [place] [address] 11/11/2025 12:50 PM EST Office Visit [facility] [address] [place] [address] Angela Todd APRN [address] [place] [address] Scheduled Referrals Name Type Priority [...] documented as of this encounter Care Teams Industrial Cleaning Technician Relationship Specialty Start Date End Date Valentin Daniel MD PCP - General 09/18/22 documented as of this encounter
--- OUTSIDE RECORDS SUMMARY | 2025-05-07 15:14 | XMS_ITS | Clinical Summary ---
[facility] Address [address] [place] [address] Care Team Providers Care Wheelchair Van Operator First Responder Name Role Phone Provider, No Known Primary Care Provider Unavail able Social History Tobacco Use Types Packs/Day Years Used Date Smoking Tobacco: Never Assessed Abuse Screen Answer Date Recorded Unsafe at Home or Work/School Not on file Feels Threatened by Someone? Not on file 06/2023 Does Anyone Keep You from Co ntacting Others or Doint Things Outside the Home? Not on file 07/23/2023 Physical Sign of Abuse Present Not on file 1 Housing Stability Answer Date Recorded Current Living Arrangements Not on file 06/2023 Potentially Unsafe Housing Conditions Not on yareli e 07/23/2023 Family and Community Support Answer Zak e Recorded Help with Day-to-Day Activities Not on file 07/23/2023 Lonely or Isolated Not on file 07/23/2023 Employment Answer Date Recorded Do you want help finding or keeping work or a pop b? Not on file 07/23/2023 Disabilities Answer Date Recorded Concentrating, Remembering, or Making Decisions Difficulty Not on file 07/23/2023 Doing Errands Independently Difficulty Not on fi le 07/23/2023 Education Answer Date Recorded Help with school or training? Not on file Preferred Language Not on file 07/23/2023 Comments Unknown Sex and Gender Information Value Date Recorded Sex Assigned at Not on file Legal Sex Female 10:21 AM EDT Gender Identity Not on file Sexual Orientation Not on file Plan of Treatment Health Maintenance Due Date Last Done Comments ANNUAL PHYSICAL 1971 Annual Gynecologic Pelvic an d Breast Exam 1971 HEPATITIS C SCREENING 1971 MAMMOGRAM 2011 COLOGUARD 02/25/2016 COLON CANCER SCREENING 5 YEA R SIGMOIDOSCOPY 02/25/2016 COLONOSCOPY 02/25/2016 COLORECTAL CANCER SCREENING 02/25/2016 CT COLONOGRAPHY 02/25/2016 FECAL OCCULT BLOOD TEST 02/25/2016 FIT Testing (1 year) 02/25/2016 Pneumococcal Vaccine 50+ (2 of 2 - PPSV23) 2021 07/29/2019 TDAP/TD VACCINES (2 - Td or Tdap) 06/20/2021 011 COVID-19 Vaccine (1 - 2023-2 5 season) 2024 INFLUENZA VACCINE 07/15/2025 08/06/2023, , 07/07/2021, Additional history exists ZOSTER VACCINE Completed 01/16/2022, 07/27/2021 Insurance [employer] Care Teams Wheelchair Van Operator First Responder Relationship Specialty Start Date End Date Provider, [place] [address] PCP - General 08/09/23
--- OUTSIDE RECORDS SUMMARY | 2025-05-07 15:14 | XMS_ITS | Encounter Summary ---
Author Organization [employer] ([place], [place], [place], [place]) Address [address] [place] [address] Care Team Providers Care Chair Mender Name Role Phone Unavailable Primary Care Provider Unavailabl e Encounter Details Date Type Department Care Team (Late st Contact Info) Description 06/03/2019 Transcribed Document [facility] [place] Medicine [facility] [place] [address] ProviderRikki MD [address] [place] [address] [phone] Social History Tobacco Use Types Packs/Day Years [...] EDT Height Source Stated Height Entry Format Baca Height/Length, NIUEAN (ft) 5 ft Height/Length NIUEAN 3 Inch CLINICALHEIGHT 160.02 cm [place] Body Weight 52.02 kg Weight Source, ED Critical estimated dosing weight Weight Entry Format Baca Weight South Korean lb 220 lb CLINICALWEIGHT 100 kg Body [...] Hand pain, wrist pain, fracture, sprain, contusion, [place], head injury, concussion,. Orders Include Previous Orders (Selected) Inpatient Orders Ordered EKG: Completed .Automated Differential: .Urinalysis Microscopic: CBC w/ Auto Diff: CMP Comprehensive Metabolic Panel: CR Hand Min 3 Vws RT: CT Head WO: Cardiac Monitoring: ED Adult Fall Risk Assessment: ED Adult Triage: ED Clinical Reconciliation: ED manufacture specialist: Normal Saline Flush: 10 mL, IV Push, [...] Color Yellow Urine Appearance Clear Urine Specific Harbert 1.021 Urine pH Dipstick 7.5 Urine Leukocyte [...] % 30.2 % Lymph # 2.54 x10(3)/uL Prentiss % 5.2 % Prentiss # 0.44 K/uL Eos % 3.3 % [...] Fall Scale Risk Level 0-24 Low Risk [place] Fall Interventions Adequate lighting, Bed in low position, Call device within reach, Hourly comfort/safety rounds, Non-Slip footwear, Personal items within reach, Reinforced to call for assistance before getting out of bed, Room free of clutter/spills, Upper side-rails up, Wheels locked, Wires/Cords secured Fall Moderate to High Risk Interventions Patient room close to nurses station Communication Barrier None Primary Language South Korean Information Obtained From Patient Smoking Status Refused [...] air Height Source Stated Height Entry Format Baca Height/Length, NIUEAN (ft) 5 ft Height/Length NIUEAN 3 Inch CLINICALHEIGHT 160.02 cm [place] Body Weight 52.02 kg Weight Source, ED Critical estimated dosing weight Weight Entry Format Baca Weight [place] lb 220 lb CLINICALWEIGHT 100 kg Body [...] Ambulate Tracking Acuity 3 - Urgent (Modified) Lead Machinist Needed No Accompanied by Unaccompanied Mode of Arrival Ambulatory 06/03/2019 10:46 EDT Nurse Collect Order Detail 3.00 Nurse Collect Order Detail 3.00 . Radiology results: Radiology Results (Last 48 hours) [id number] -- 06/03/2019 10:45 CR Hand Min 3 [...] Adult, Syncope. Follow up with: ALVARADO STILES (REF)[facility] Within 2 to 3 days [...]
--- NOTE | 2025-05-07 15:30 | CA_ITS ---
FINAL REPORT TECHNIQUE: Compression carbajal scale and Doppler evaluation CLINICAL HISTORY: LT CALF PAIN,PT FX LEFT ANKLE IN MARCH HAS BEEN IN BOOT HAD KNOT COME UP IN CALF NOW HAS BRUISING IN THE AREA,PT ON ASA AND COUMADIN,HX DVT FINDINGS: Femoral and popliteal veins show normal compressibility and flow. Visualized portion of the calf veins are patent by Doppler exam. IMPRESSION: No evidence of left lower extremity deep venous thrombosis Reviewed, Interpreted and Dictated by Mina Wright MD Transcribed by Jenna Hammonds Authenticated and [facility]
== END 2025-05-07 23:59 | disposition home or self-care (01) ==
LOC: RT 15:10
PROVIDERS: PCP Family Medicine; Visit Provider Physician Assistant
DX: S82.832A Other fracture of upper and lower end of left fibula, initial encounter for closed fracture (principal); Z86.718 Personal history of other venous thrombosis and embolism; Z79.01 Long term (current) use of anticoagulants
CPT/HCPCS: 93971

== ENCOUNTER 2025-05-13 10:39 | Outpatient (CLI) | payer OTHER, SELFPAY ==
--- OUTSIDE RECORDS SUMMARY | 2025-05-06 13:20 | XMS_ITS | Encounter Summary ---
Author Organization [facility] Address [address] [place] [address] Care Team Providers Care Track Machine Operator Repairer Name Role Phone Valentin Daniel MD Primary Care Provider [phone] Reason for Visit * Reason Comments Follow-up Mental status, decre ased Encounter Details Date Type Department Care Team (Latest Contact Info) Description 05/06/2025 1:20 PM EDT Office Visit MD Clinic Medicine Specialties [address] [place] [address] Angela Todd L, MANAGER ENVIRONMENTAL AFFAIRS [address] [place] [address] Positive RENETTA (antinuclear antibody) (Primary [...] * Progress Notes - Peyton, Angela Josie, MANAGER ENVIRONMENTAL AFFAIRS - 05/06/2025 1:20 PM EDT Kassi Claudio [...] - SSA. - SSB. - Daniels. - REGIONAL LIAISON. 10 year history of Raynaud's. Describes blanching. No digit ulcerations. History of multiple blood clots. + LAC x 2. - B2 glycoprotein. - cardiolipin. Rash on chest that is now resolved with use of HCQ. 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 Med hx: Hydroxychloriquine (2018-current) Interim history: Last [...] Pt still struggles with fibromyalgia. Currently takes Bismarck and Lyrica. Denies any blood clots. Continues on hydroxychloriquine. Pt has upcoming eye exam in June. She has had several UTI's and kidney stones since the last visit. She follows with pain management for CBP. She endorses morning stiffness, around 30 minutes. She had XR completed at [facility]. She is following with Dr. Billingsley, orthopedics at [facility]. She denies any SOB, CP Review [...] allergic reaction 07/16/2024 Acute CVA (cerebrovascular accident) ([facility]) 07/16/2024 Acute hypokalemia 07/16/2024 This has been repleted and was a postsurgical issue. 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 Antiphospholipid antibody syndrome ([facility]) 10/28/2018 Anxiety 08/18/2015 Atypical angina 07/16/2024 Back pain 06/25/2013 Brown's esophagus without dysplasia Brown's esophagus without dysplasia Bronchitis 07/16/2024 CAD (coronary artery disease) 07/16/2024 Calcaneal spur, left 07/16/2024 Calculus of ureterovesical junction (UVJ) 07/16/2024 Callus of foot 07/16/2024 Cardiac murmur 07/16/2024 CHF (congestive heart failure) ([facility]) 07/16/2024 Close exposure to COVID-19 virus 07/16/2024 Conversions - Other Depression Conversions - Other Hiatal Hernia Conversions - Other Leiomyoma Of The Uterus Conversions - Other Lyme Disease Cough 07/16/2024 COVID-19 07/16/2024 Diastolic dysfunction 07/16/2024 Dizziness 07/16/2024 Dropfoot 07/16/2024 DVT (deep venous thrombosis) ([facility]) 04/04/2016 Dysuria 07/16/2024 Edema 07/16/2024 Enterocolitis due to Clostridium difficile, not specified as recurrent Clostridium difficile diarrhea Environmental and seasonal allergies 07/16/2024 Essential hypertension 11/03/2015 Facial paresthesia 07/16/2024 Fall 07/16/2024 Falling 07/16/2024 Fibromyalgia 11/08/2019 Ganglion, unspecified site Ganglion Gastro-esophageal reflux disease without esophagitis 06/25/2013 GERD with esophagitis 07/16/2024 Heart failure Hyperparathyroidism ([facility]) 07/16/2024 Hypertensive heart disease 07/16/2024 [...] Left ankle instability 07/16/2024 Left leg DVT ([facility]) 07/16/2024 Left leg weakness 07/16/2024 Lesion of nose 07/16/2024 Lumbar nerve root impingement 06/30/2014 Lumbosacral neuritis 04/28/2015 Menopausal and female climacteric states Menopausal syndrome (hot flashes) Methicillin resistant Staphylococcus aureus infection, unspecified site MRSA (methicillin resistant Staphylococcus aureus) Migraine 07/16/2024 Morbid obesity with body mass index (BMI) of 40.0 to 49.9 ([facility]) 07/16/2024 Myalgia 06/27/2018 Other intervertebral [...] Procedure Laterality Date APPENDECTOMY N/A Appendectomy from [facility] BACK SURGERY N/A Back Surgery from [facility] CARPAL TUNNEL RELEASE N/A Neuroplasty Decompression Median Nerve At Carpal Tunnel from [facility] SECTION, LOW TRANSVERSE N/A Section from [facility] CHOLECYSTECTOMY N/A Cholecystectomy Laparoscopic from [facility] GASTRIC BYPASS HYSTERECTOMY N/A Hysterectomy from [facility] LAPAROSCOPIC DIANELYS FUNDOPLICATION N/A Esophagogastric Fundoplasty Dianelys Fundoplication from [facility] OTHER SURGICAL HISTORY N/A Knee Arthroscopy from [facility] Social History Socioeconomic History Marital status: Spouse [...] Not on file 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 Marital History - Currently Social Drivers of Health Financial Resource Strain: Not on file Food Insecurity: Not on file Transportation Needs: Not on file Physical Activity: Not on file Stress: Not on file Social Connections: Unknown (07/23/2023) Received from [facility] Family and Community Support Help with Day-to-Day Activities: Not on file Lonely or Isolated: Not on file Intimate Partner Violence: Unknown (07/23/2023) Received from [facility] Abuse Screen Unsafe at Home or Work/School: Not on file Feels Threatened by Someone?: Not on file Does Anyone Keep You from Contacting Others or Doint Things Outside the Home?: Not on file Physical Sign of Abuse Present: Not on file Housing Stability: Unknown (07/23/2023) Received from [facility] Housing Stability Current Living Arrangements: Not [...] Take 1 tablet by mouth daily. HYDROcodone-acetaminophen (Bismarck) 10-325 MG tablet TAKE ONE TABLET BY [...] (Temovate) 0.05 % cream ergocalciferol 1.25 MG (86019 UT) capsule TAKE ONE CAPSULE BY MOUTH EVERY WEEK DIRECTED ferrous sulfate 325 (65 Fe) MG tablet PLEASE SEE ATTACHED FOR DETAILED DIRECTIONS (Patient not taking: Reported on 07/16/2024) furosemide (Lasix) 20 MG tablet if needed. nystatin (Mycostatin) 161928 UNIT/GM powder omeprazole (PriLOSEC) [address] [...] consider testing for antibodies against cardiolipin and dmwj-9-oawccmwaarxm I. Final aPTT Lupus Anticoagulant Sensitive 07/16/2024 [...] Glycoprotein IgM Inter* 07/16/2024 Negative Negative Final Y5Ugdaevajfquq 1, IgA Antibody 07/16/2024 <10 <=20 ALDEN [...] by another provider. Currently taking Lyrica and Bismarck - Continue with pain management. 4. 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 High risk medication use -routine labs today -pt is due for eye exam in June [facility] 6 months The patient was counseled [...] Info) Description 10/30/2025 8:00 AM EST Consult [facility] [address] [place] [address] Sim Tillman MD [address] [place] [address] 11/11/2025 12:50 PM EST Office Visit [facility] Medicine Specialties [address] [place] [address] Angela Todd, ANGELITO [address] [place] [address] documented as of this encounter Results * (ABNORMAL) Urinalysis with reflex microscopic (Culture NOT Included) (05/06/2025 2:30 PM EDT) Color, Urine Dark Yellow LAB URINALYSIS - AUTOMATED METHOD 05/06/2025 4:28 PM EDT [facility] Clarity, Urine Cloudy LAB URINALYSIS - AUTOMATED METHOD 05/06/2025 4:28 PM EDT [facility] Spec Kingsley, Urine 1.026 1.005 - 1.030 LAB URINALYSIS - AUTOMATED METHOD 05/06/2025 4:28 PM EDT [facility] pH, Urine 5.5 5.0 - 8.0 LAB URINALYSIS - AUTOMATED METHOD 05/06/2025 4:28 PM EDT [facility] Protein, Urine 30(A) Negative mg/dL LAB URINALYSIS - AUTOMATED METHOD 05/06/2025 4:28 PM EDT [facility] Glucose, Urine >=1000(A) Negative mg/dL LAB URINALYSIS - AUTOMATED METHOD 05/06/2025 4:28 PM EDT [facility] Ketones, Urine Trace(A) Negative mg/dL LAB URINALYSIS - AUTOMATED METHOD 05/06/2025 4:28 PM EDT [facility] Blood, Urine Large(A) Negative LAB URINALYSIS - AUTOMATED METHOD 05/06/2025 4:28 PM EDT [facility] Bilirubin, Urine Small(A) Negative LAB URINALYSIS - AUTOMATED METHOD 05/06/2025 4:28 PM EDT [facility] Urobilinogen, Urine 0.2 0.2 to 1.0 mg/dL LAB URINALYSIS - AUTOMATED METHOD 05/06/2025 4:28 PM EDT [facility] Leukocytes, Urine Negative Negative LAB URINALYSIS - AUTOMATED METHOD 05/06/2025 4:28 PM EDT [facility] Nitrite, Urine Negative Negative LAB URINALYSIS - AUTOMATED METHOD 05/06/2025 4:28 PM EDT [facility] RBC, Urine >50(A) 0 to 3 /HPF LAB URINALYSIS - AUTOMATED METHOD 05/06/2025 4:28 PM EDT [facility] WBC, Urine 6 - 10(A) 0 to 5 /HPF LAB URINALYSIS - AUTOMATED METHOD 05/06/2025 4:28 PM EDT [facility] Squamous Epithelial Cells 0 - 2 0 to 5 /HPF LAB URINALYSIS - AUTOMATED METHOD 05/06/2025 4:28 PM EDT [facility] Hyaline Casts 0 - 2 0 to 5 /LPF LAB URINALYSIS - AUTOMATED METHOD 05/06/2025 4:28 PM EDT [facility] Bacteria, Urine Negative Negative LAB URINALYSIS - AUTOMATED METHOD 05/06/2025 4:28 PM EDT [facility] Renal Tubular Cells Present Absent 05/06/2025 4:28 PM EDT [facility] Transitional Epithelial Cells Present Absent 05/06/2025 4:28 PM EDT [facility] Calcium Oxalate Crystals Present Absent 05/06/2025 4:28 PM EDT [facility] Urine Urine specimen obtained by clean catch procedure / Unknown Non-blood Collection / Unknown 05/06/2025 2:30 PM EDT 05/06/2025 2:30 PM EDT [facility] - 05/06/2025 4:28 PM EDT Performed by manual method us Angela Todd APRN LAB URINE ORDERABLES Veronica syed Result [facility] [address] [place] [address] * Protein, Random, Urine with Creatinine (05/06/2025 2:30 PM EDT) Protein, Urine 20 mg/dL 05/06/2025 4:34 PM EDT [facility] Creatinine, Urine 141 mg/dL 05/06/2025 4:34 PM EDT [facility] Protein/Creatin ine Ratio 0.1 mg/mg Creat 05/06/2025 4:34 PM EDT [facility] Urine Urine specimen obtained by clean catch procedure / Unknown Non-blood Collection / Unknown 05/06/2025 2:30 PM EDT 05/06/2025 2:30 PM EDT Angela Todd APRN LAB URINE ORDERABLES Veronica syed Result [facility] [address] [place] [address] * (ABNORMAL) CBC and Differential (05/06/2025 2:08 PM EDT) Pathologist [facility] WBC Count 9.44 3.70 - 10.30 10*3/uL LAB HEMATOLOGY METHOD 05/06/2025 3:39 PM EDT [facility] RBC Count 5.15 3.90 - 5.20 10*6/uL LAB HEMATOLOGY METHOD 05/06/2025 3:39 PM EDT [facility] HGB 14.4 11.2 - 15.7 g/dL LAB HEMATOLOGY METHOD 05/06/2025 3:39 PM EDT [facility] HCT 44.7 34.0 - 45.0 % LAB HEMATOLOGY METHOD 05/06/2025 3:39 PM EDT [facility] Platelet Count 337 155 - 369 10*3/uL LAB HEMATOLOGY METHOD 05/06/2025 3:39 PM EDT [facility] MCV 87 79 - 98 fL LAB HEMATOLOGY METHOD 05/06/2025 3:39 PM EDT [facility] MCH 28.0 26.0 - 32.0 pg LAB HEMATOLOGY METHOD 05/06/2025 3:39 PM EDT [facility] MCHC 32.2 30.7 - 35.5 g/dL LAB HEMATOLOGY METHOD 05/06/2025 3:39 PM EDT [facility] RDW 13.9 11.5 - 14.5 % LAB HEMATOLOGY METHOD 05/06/2025 3:39 PM EDT [facility] MPV 11.9 8.8 - 12.5 fL LAB HEMATOLOGY METHOD 05/06/2025 3:39 PM EDT [facility] nRBC 0.0 <=0.0 per 100 WBCs LAB HEMATOLOGY METHOD 05/06/2025 3:39 PM EDT [facility] Differential Type Automated LAB HEMATOLOGY METHOD 05/06/2025 3:39 PM EDT [facility] Neutrophils % 56 % LAB HEMATOLOGY METHOD 05/06/2025 3:39 PM EDT [facility] Lymphocytes % 32 % LAB HEMATOLOGY METHOD 05/06/2025 3:39 PM EDT [facility] Monocytes % 6 % LAB HEMATOLOGY METHOD 05/06/2025 3:39 PM EDT [facility] Eosinophils % 5 % LAB HEMATOLOGY METHOD 05/06/2025 3:39 PM EDT [facility] Basophils % 1 % LAB HEMATOLOGY METHOD 05/06/2025 3:39 PM EDT [facility] Immature Granulocytes % 0 % LAB HEMATOLOGY METHOD 05/06/2025 3:39 PM EDT [facility] Neutrophils Absolute 5.32 1.60 - 6.10 10*3/uL LAB HEMATOLOGY METHOD 05/06/2025 3:39 PM EDT [facility] Lymphocytes Absolute 3.00 1.20 - 3.90 10*3/uL LAB HEMATOLOGY METHOD 05/06/2025 3:39 PM EDT [facility] Monocytes Absolute 0.56 0.30 - 0.90 10*3/uL LAB HEMATOLOGY METHOD 05/06/2025 3:39 PM EDT [facility] Eosinophils Absolute 0.43 0.00 - 0.50 10*3/uL LAB HEMATOLOGY METHOD 05/06/2025 3:39 PM EDT [facility] Basophils Absolute 0.11(H) 0.00 - 0.10 10*3/uL LAB HEMATOLOGY METHOD 05/06/2025 3:39 PM EDT [facility] Immature Granulocytes Absolute 0.02 0.00 - 0.06 10*3/uL LAB HEMATOLOGY METHOD 05/06/2025 3:39 PM EDT [facility] Blood Venous blood specimen / Unknown Venipuncture / Unknown 05/06/2025 2:08 PM EDT 05/06/2025 2:09 PM EDT Narrative [facility] - 05/06/2025 3:39 PM EDT Therapeutic decision making should be based on absolute values, rather than percentages. us Angelabird Todd MANAGER ENVIRONMENTAL AFFAIRS LAB BLOOD ORDERABLES Veronica l Result [facility] [address] [place] [address] * (ABNORMAL) Hepatic Function Panel (05/06/2025 2:08 PM EDT) Conjugated Bilirubin, Plasma <0.2 <=0.3 mg/dL 05/06/2025 3:35 PM EDT [facility] Alkaline Phosphatase, Plasma 107(H) 35 - 104 U/L 05/06/2025 3:35 PM EDT [facility] Total Bilirubin, Plasma 0.2 0.2 - 1.1 mg/dL 05/06/2025 3:35 PM EDT [facility] Albumin, Plasma 3.9 3.5 - 5.2 g/dL 05/06/2025 3:35 PM EDT [facility] Total Protein 7.2 6.3 - 7.9 g/dL 05/06/2025 3:35 PM EDT [facility] ALT, Plasma 43(H) 10 - 35 U/L 05/06/2025 3:35 PM EDT [facility] AST, Plasma 35 10 - 35 U/L 05/06/2025 3:35 PM EDT [facility] Blood Venous blood specimen / Unknown Venipuncture / Unknown 05/06/2025 2:08 PM EDT 05/06/2025 2:09 PM EDT us Angelabird Todd APRN LAB BLOOD ORDERABLES Veronica l Result [facility] [address] [place] [address] * Creatinine, Plasma (05/06/2025 2:08 PM EDT) Creatinine, Plasma 0.62 0.60 - 1.10 mg/dL 05/06/2025 3:35 PM EDT [facility] eGFRcr 106.0 mL/min/1.7 3m*2 05/06/2025 3:35 PM EDT [facility] Comment:Reported eGFRcr in m L/min/1.73m2 is based the CKD-EPI 2020 equation that does not use a race coefficient. Blood Venous blood specimen / Unknown Venipuncture / Unknown 05/06/2025 2:08 PM EDT 05/06/2025 2:09 PM EDT Angela Landaverdetingly MANAGER ENVIRONMENTAL AFFAIRS LAB BLOOD ORDERABLES Veronica l Result [facility] [address] [place] [address] * C3 Complement (05/06/2025 2:08 PM EDT) C3 Complement 149 84 - 166 mg/dL 05/06/2025 3:30 PM EDT [facility] Blood Venous blood specimen / Unknown Venipuncture / Unknown 05/06/2025 2:08 PM EDT 05/06/2025 2:09 PM EDT Angela Syed Peyton MANAGER ENVIRONMENTAL AFFAIRS LAB BLOOD ORDERABLES Veroncia l Result [facility] [address] [place] [address] * C4 Complement (05/06/2025 2:08 PM EDT) C4 Complement 25 13 - 36 mg/dL 05/06/2025 3:30 PM EDT [facility] Blood Venous blood specimen / Unknown Venipuncture / Unknown 05/06/2025 2:08 PM EDT 05/06/2025 2:09 PM EDT Angela Todd APRN LAB BLOOD ORDERABLES Veronica l Result Performing Organization Address [facility]/ZIP Co de Phone Number [facility] [address] [place] [address] * C-Reactive Protein, Plasma (05/06/2025 2:08 PM EDT) [facility] CRP, Plasma <3.0 <=8.0 mg/L 05/06/2025 3:35 PM EDT [facility] Blood Venous blood specimen / Unknown Venipuncture / Unknown 05/06/2025 2:08 PM EDT 05/06/2025 2:09 PM EDT Narrative [facility] - 05/06/2025 3:35 PM EDT This CRP test is appropriate for assessment of infection, systemic inflammation and/or tissue injury. To assess cardiovascular disease risk order high sensitivity CRP (CRPH). Angela Todd APRN LAB BLOOD ORDERABLES Veronica l Result Performing Organization Address [facility] Co de Phone Number [facility] [address] [place] [address] * (ABNORMAL) Sedimentation Rate, Automated (05/06/2025 2:08 PM EDT) [facility] Sedimentation Rate 38(H) <30 mm/hr 2024 4:06 PM EDT [facility] Blood Venous blood specimen / Unknown Venipuncture / Unknown 05/06/2025 2:08 PM EDT 05/06/2025 2:09 PM EDT Angela Becerraly MANAGER ENVIRONMENTAL AFFAIRS LAB BLOOD ORDERABLES Veronica l Result Performing Organization Address [facility]/[place] [address] * Double-Stranded DNA (dsDNA) Antibody, IgG by IFA (05/06/2025 2:08 PM EDT) [facility] Double-Strande d DNA (dsDNA) Ab IgG IFA <1:10 <1:10 05/08/2025 11:43 PM EDT [facility] DONNA MELENDEZ) Blood Venous blood specimen / [...] recommendations for testing may be found at https://[employer]/content/kcmvtvfkax-gdyizp-dmprfpem. Performed By: [employer] [address] [place] [address] Retail Zone Specialist: Abundio Urias MD, PhD CLIA Number: [id number] Angela Todd APRN LAB BLOOD ORDERABLES Veronica syed Result [facility] DONNA MELENDEZ) [address] [place] [address] documented in this encounter Visit Diagnoses Diagnosis [...] documented as of this encounter Care Teams Track Machine Operator Repairer Relationship Specialty Start Date End Date Valentin Daniel MD PCP - General 09/18/22 documented as of this encounter
--- OUTSIDE RECORDS SUMMARY | 2025-05-13 10:41 | XMS_ITS | Encounter Summary ---
Author Organization [employer] ([place], [place], [place], [place]) Address [address] [place] [address] Care Team Providers Care Gang Rider Name Role Phone Unavailable Primary Care Provider Unavailabl e Encounter Details Date Type Department Care Team (Late st Contact Info) Description 06/22/2021 Transcribed Document [facility] [place] [address] ProviderRikki MD [address] [place] [address] [phone] Social History Tobacco Use Types Packs/Day Years [...]
--- OUTSIDE RECORDS SUMMARY | 2025-05-13 10:41 | XMS_ITS | Encounter Summary ---
Author Organization [facility] Address [address] [place] [address] Care Team Providers Care Youth Development Professional Name Role Phone Valentin Daniel MD Primary Care Provider [phone] Reason for Visit * Reason Comments Med Refill Encounter Details Date Type Department Care Team (Late st Contact Info) Description 05/13/2025 Refill [place] [facility] Specialties [address] [place] [address] Angela Todd L, HOT PIPE GAUGER [address] [place] [address] Social History Tobacco Use Types Packs/Day Years [...] encounter Miscellaneous Notes * Progress Notes - Jordana Wren, PharmD - 05/13/2025 7:32 AM EDT 1 medication(s) has been denied per protocol due to: Duplicate request documented in this encounter Plan of Treatment Upcoming Encounters Date Type Department Care Team (Late st Contact Info) Description 10/30/2025 8:00 AM EST Consult [place] [facility] [address] [place] [address] Sim Tillman MD [address] [place] [address] 11/11/2025 12:50 PM EST Office Visit [facility] Medicine Specialties [address] [place] [address] Angela Todd APRN [address] [place] [address] documented as of this encounter [...] documented as of this encounter Care Teams Youth Development Professional Relationship Specialty Start Date End Date Valentin Daniel MD PCP - General 09/18/22 documented as of this encounter
--- OUTSIDE RECORDS SUMMARY | 2025-05-13 10:41 | XMS_ITS | Encounter Summary ---
Author Organization [employer] ([place], [place], [place], [place]) Address [address] [place] [address] Care Team Providers Care Fur Stretcher Name Role Phone Unavailable Primary Care Provider Unavailabl e Encounter Details Date Type Department Care Team (Late st Contact Info) Description 06/11/2019 Transcribed Document [facility] [place] Family Medicine [address] [place] [address] ProviderRikki MD [address] [place], [place] [id number] Social History Tobacco Use Types Packs/Day Years [...]
--- OUTSIDE RECORDS SUMMARY | 2025-05-13 10:41 | XMS_ITS | Clinical Summary ---
Author Organization [employer] ([place], [place], [place], [place]) Address [address] [place] [address] Care Team Providers Care Director Of Education And Training Name Role Phone Unavailable Primary Care Provider [...]
--- OUTSIDE RECORDS SUMMARY | 2025-05-13 10:41 | XMS_ITS | Encounter Summary ---
Author Organization [employer] ([place], [place], [place], [place]) Address [address] [place] [address] Care Team Providers Care Dicer Operator Name Role Phone Unavailable Primary Care Provider Unavailabl e Encounter Details Date Type Department Care Team (Late st Contact Info) Description 06/21/2021 Transcribed Document [facility] [place] [address] [place] [address] ProviderRikki MD [address] [place], [place] 199231 Social History Tobacco Use Types Packs/Day Years [...]
--- OUTSIDE RECORDS SUMMARY | 2025-05-13 10:41 | XMS_ITS | Encounter Summary ---
Author Organization [employer] ([place], [place], [place], [place]) Address [address] [place] [address] Care Team Providers Care Final Expense Agent Name Role Phone Unavailable Primary Care Provider Unavailabl e Encounter Details Date Type Department Care Team (Late st Contact Info) Description 06/21/2021 Transcribed Document [facility] [place] Family Medicine [facility] [place] [address] ProviderRikki MD [address] [place] [address] [phone] Social History Tobacco Use Types Packs/Day Years [...] Communication Barrier : None Primary Language : Sao Tomean Any Spiritual/Cultural Needs or Requests : No [...]
--- OUTSIDE RECORDS SUMMARY | 2025-05-13 10:41 | XMS_ITS | Encounter Summary ---
Author Organization [employer] ([place], [place], [place], [place]) Address [address] [place] [address] Care Team Providers Care Research Program Intern Name Role Phone Unavailable Primary Care Provider Unavailabl e Encounter Details Date Type Department Care Team (Late st Contact Info) Description 06/22/2021 Transcribed Document [facility] [place] [facility] [place] [address] ProviderRikki MD [address] [place] [address] [phone] Social History Tobacco Use Types Packs/Day Years [...] had a heart cath done by her realty loan specialist in [place] in February, she did not have any [...] EDT Height Source Stated Height Entry Format Donley Height/Length, SAMI (ft) 5 ft Height/Length SAMI 3 Inch CLINICALHEIGHT 160.02 cm [place] Body Weight 52.02 kg Weight Source, ED Critical estimated dosing weight Weight Entry Format Donley Weight Palau[place] lb 220 lb CLINICALWEIGHT 100 kg Body [...] Triage: ED C-SSRS: ED Clinical Reconciliation: ED manager policy: EKG: Normal Saline Flush: 10 mL, IV [...] % 30.8 % Lymph # 3.02 x10(3)/uL Titus % 5.3 % Titus # 0.52 K/uL Eos % 2.4 % [...]
--- OUTSIDE RECORDS SUMMARY | 2025-05-13 10:41 | XMS_ITS | Referral Summary ---
Author Organization [employer] ([place], [place], [place], [place]) Address [address] [place] [address] Care Team Providers Care Carpenter Maintenance Name Role Phone Unavailable Primary Care Provider [...]
--- OUTSIDE RECORDS SUMMARY | 2025-05-13 10:41 | XMS_ITS | Encounter Summary ---
Author Organization [employer] ([place], [place], [place], [place]) Address [address] [place] [address] Care Team Providers Care Thermostat Mechanic Name Role Phone Unavailable Primary Care Provider Unavailabl e Encounter Details Date Type Department Care Team (Late st Contact Info) Description 06/22/2021 Transcribed Document [facility] [place] [facility] [place] [address] ProviderRikki MD [address] [place] [address] [phone] Social History Tobacco Use Types Packs/Day Years [...]
--- OUTSIDE RECORDS SUMMARY | 2025-05-13 10:41 | XMS_ITS | Encounter Summary ---
Author Organization [employer] ([place], [place], [place], [place]) Address [address] [place] [address] Care Team Providers Care Bungy Jump Master Name Role Phone Unavailable Primary Care Provider Unavailabl e Encounter Details Date Type Department Care Team (Late st Contact Info) Description 06/22/2021 Transcribed Document [facility] [place] [facility] [place] [address] ProviderRikki MD [address] [place] [id number] Social History Tobacco Use Types Packs/Day [...] Montoya MD - 06/22/2021 2:03 AM CDT [facility] [place] [address] KASSI KONG :1970 Visit Time:06/21/2021 Your [...] 2 to 3 days Where: [place] [address]- [facility] (1) Allergies SUMAtriptan (Other Anaphylactic [...] range between ( 0.0 and 7.0 ) Jeff Davis #: 0.52 K/uL -- Normal range between ( 0.16 and 1.00 ) Eos #: 0.24 x10(3)/uL -- Normal range between ( 0.00 and 0.80 ) [place] %: 5.3 % -- Normal range between [...] these instructions at home: Medicines ??? Take brgw-vzu-pvyzbez and prescription medicines only as told by [...] provider. Document Revised: 04/03/2019 Document Reviewed: 04/03/2019 [employer] Patient Education ?? 2020 [employer]. Emergency Awareness and Preventative Care STROKE is [...] Assistance with quitting is available by contacting 5-307-XJKA-NOW. This is a free resource providing counseling, [...] was given the opportunity to ask questions. Patient/Warehouse Shipping Associate Name: Patient/Warehouse Shipping Associate Signature: Relationship to Patient: Clinician/Hospital Warehouse Shipping Associate Signature: Please Provide a Telephone Number Where You Can Be Reached: Is it Permissible To Leave a Message? Date: documented in this encounter Plan of Treatment Not on file documented as of this encounter Visit Diagnoses Not on filedocumented in this encounter
--- OUTSIDE RECORDS SUMMARY | 2025-05-13 10:41 | XMS_ITS | Encounter Summary ---
Author Organization [employer] ([place], [place], [place], [place]) Address [address] [place] [address] Care Team Providers Care Nursery Teacher Name Role Phone Unavailable Primary Care Provider Unavailabl e Encounter Details Date Type Department Care Team (Late st Contact Info) Description 06/22/2021 Transcribed Document [facility] [place] [facility] [place] [address] ProviderRikki MD [address] [place] [address] [phone] Social History Tobacco Use Types Packs/Day Years [...]
--- OUTSIDE RECORDS SUMMARY | 2025-05-13 10:41 | XMS_ITS | Encounter Summary ---
Author Organization [employer] ([place], [place], [place], [place]) Address [address] [place] [address] Care Team Providers Care Electrical Maintenance Supervisor Name Role Phone Unavailable Primary Care Provider Unavailabl e Encounter Details Date Type Department Care Team (Late st Contact Info) Description 06/21/2021 Transcribed Document [facility] [place] Medicine [facility] [place] [address] ProviderRikki MD [address] [place] [address] [phone] Social History Tobacco Use Types Packs/Day Years [...] : 2 - Emergent Tracking Group : [facility] ED Jasmina Rao RN - 06/21/2021 [...] PNED ; Probability: 0 ; Diagnosis Code: [id number] ED Height and Weight Height Source : Stated Height Entry Format : [place] Height, Feet : 5 ft(Converted to: 152 cm, 60 Inch) Height, Inches : 3 Inch(Converted to: 0 ft 3 Inch, 7.62 cm) Clinical Height : 160.02 cm Weight Source, ED : Critical estimated dosing weight Weight Entry Format : [place] Weight, Pounds : 220 lb Clinical Dosing Weight : 100 kg Body Surface Area (BSA) : 2.02 m2 Body Mass Index : 39.1 kg/m2 (HI) [place] Body Weight (IBW) : 52.02 kg Jasmina Rao RN - 06/21/2021 22:09 EDT documented in this encounter Plan of Treatment Not on file documented as of this encounter Visit Diagnoses Not on filedocumented in this encounter
--- OUTSIDE RECORDS SUMMARY | 2025-05-13 10:41 | XMS_ITS | Encounter Summary ---
Author Organization [employer] ([place], [place], [place], [place]) Address [address] [place] [address] Care Team Providers Care Gravel Roofer Name Role Phone Unavailable Primary Care Provider Unavailabl e Encounter Details Date Type Department Care Team (Late st Contact Info) Description 06/03/2019 Transcribed Document [facility] [place] [facility] [place] [address] ProviderRikki MD [address] [place], [place] [phone] Social History Tobacco Use Types Packs/Day Years [...]
--- OUTSIDE RECORDS SUMMARY | 2025-05-13 10:41 | XMS_ITS | Encounter Summary ---
Author Organization [facility] Address [address] [place] [address] Care Team Providers Care Last Dipper Name Role Phone Valentin Daniel MD Primary Care Provider Encounter Details Date Type Department Care Team (Late st Contact Info) Description 05/11/2025 Results Follow-Up [facility] Medicine Specialties [address] [place] [address] Angela Todd, ECONOMETRICIAN [address] [place] [address] Social History Tobacco Use Types [...] Info) Description 10/30/2025 8:00 AM EST Consult [facility] [address] [place] [address] Sim Tillman MD [address] [place] [address] 11/11/2025 12:50 PM EST Office Visit [facility] Medicine Specialties [address] [place] [address] Angela Todd APRN [address] [place] [address] documented as of this encounter [...] documented as of this encounter Care Teams Last Dipper Relationship Specialty Start Date End Date Valentin Daniel MD PCP - General 09/18/22 documented as of this encounter
--- OUTSIDE RECORDS SUMMARY | 2025-05-13 10:41 | XMS_ITS | Encounter Summary ---
Author Organization [facility] Address [address] [place] [address] Care Team Providers Care Printed Circuit Board Panels Plater Name Role Phone Valentin Daniel MD Primary Care Provider [phone] Encounter Details Date Type Department Care Team [...] Info) Description 10/30/2025 8:[address] [facility] [address] [place] [address] Sim Tillman MD [address] [place] [phone] 11/11/2025 12:50 PM EST Office [facility] Medicine Specialties [address] [place] [address] Angela Todd APRN [address] [place] [address] documented as of this encounter Visit Diagnoses [...] documented as of this encounter Care Teams Printed Circuit Board Panels Plater Relationship Specialty Start Date End Date Valentin Daniel MD PCP - General 09/18/22 documented as of this encounter
--- OUTSIDE RECORDS SUMMARY | 2025-05-13 10:42 | XMS_ITS | Encounter Summary ---
Author Organization [employer] ([place], [place], [place], [place]) Address [address] [place] [address] Care Team Providers Care Marine Chronometer Assembler Name Role Phone Unavailable Primary Care Provider Unavailabl e Encounter Details Date Type Department Care Team (Late st Contact Info) Description 06/03/2019 Transcribed Document [facility] [place] [facility] [place] [address] ProviderRikki MD [address] [place] [address] [phone] Social History Tobacco Use Types Packs/Day Years [...]
--- OUTSIDE RECORDS SUMMARY | 2025-05-13 10:42 | XMS_ITS | Encounter Summary ---
Author Organization [employer] ([place], [place], [place], [place]) Address [address] [place] [address] Care Team Providers Care Foundry Equipment Mechanic Name Role Phone Unavailable Primary Care Provider Unavailabl e Encounter Details Date Type Department Care Team (Late st Contact Info) Description 06/03/2019 Transcribed Document [facility] [place] [facility] [place] [address] ProviderRikki MD [address] [place] [phone] Social History Tobacco Use Types Packs/Day [...] Montoya MD - 06/03/2019 2:51 PM CDT [facility] [place] [address] KASSI KONG :1970 Visit Time:06/03/2019 Your Visit Summary Your Care Team Admitting Physician - DRE POWER MARK, MD Attending Physician - MARIEL MCCRAY MD Primary Care Physician - ALVARADO STILES (REF), [facility] Referring Physician - MARIEL MCCRAY MD [...] in the future. Where: [place] [address] [place] [address]- Allergies SUMAtriptan (Other Anaphylactic Shock, Other Anaphylactic [...] ( 0.0 and 7.0 ) [place] #: 0.44 K/uL -- Normal range between ( 0.16 and 1.00 ) Eos #: 0.28 x10(3)/uL -- Normal range between ( 0.00 and 0.80 ) [place] %: 5.2 % -- Normal range between [...] ) Urine Bilirubin Dipstick: Negative Urine Specific [place]: 1.021 -- Normal range between ( 1.005 [...] stand. This can reduce dizziness. ??? Take zwqm-rck-lirzwrw and prescription medicines only as told by [...] 10/01/2006 Document Revised: 03/08/2017 Document Reviewed: 06/14/2016 [employer] Patient Education ?? 2018 [employer] Head Injury, Adult There are many [...] Ask your health care provider for a mqyl-yl-wlmx plan for gradually returning to activities. ??? [...] your friends, family, a trusted colleague, and factory worker about your injury, symptoms, and restrictions. Have them watch for any new or worsening problems. General instructions ??? Take ubdy-qpn-oydhxep and prescription medicines only as told by [...] 04/10/2017 [employer] Interactive Patient Education ?? 2019 [employer] Contusion A contusion is a deep [...] This is often called the RICE strategy. Pcje-wdh-czfhbzu anti-inflammatory medicines may also be recommended for [...] are sitting or lying down. ??? Take dnmr-wsp-gfvbram and prescription medicines only as told by [...] 07/11/2006 Document Revised: 02/08/2017 Document Reviewed: 02/16/2016 [employer] Patient Education ?? 2019 [employer] Concussion, Adult A concussion is a [...] are taking any medicines, including prescription medicines, jxcd-jom-wgnxkrh medicines, and natural remedies. Some medicines, such [...] returning to activities. General instructions ??? Take kyow-yvr-axqpvpr and prescription medicines only as told by [...] Tell your teachers, school nurse, school counselor, girls swimming coach, ultimate hoops trainer, or factory worker about your injury, symptoms, and restrictions. [...] 12/21/2004 Document Revised: 09/11/2017 Document Reviewed: 09/11/2017 [employer] Patient Education ?? 2019 [employer] Emergency Awareness and Preventative Care STROKE [...] Assistance with quitting is available by contacting 7-610-QQSR-NOW. This is a free resource providing counseling, [...] was given the opportunity to ask questions. Patient/Real Estate Transaction Manager Name: Patient/Real Estate Transaction Manager Signature: Relationship to Patient: Clinician/Hospital Real Estate Transaction Manager Signature: Please Provide a Telephone Number Where You Can Be Reached: Is it Permissible To Leave a Message? Date: documented in this encounter Plan of Treatment Not on file documented as of this encounter Visit Diagnoses Not on filedocumented in this encounter
--- OUTSIDE RECORDS SUMMARY | 2025-05-13 10:42 | XMS_ITS | Encounter Summary ---
Author Organization [employer] ([place], [place], [place], [place]) Address [address] [place] [address] Care Team Providers Care Beverage Host Name Role Phone Unavailable Primary Care Provider Unavailabl e Encounter Details Date Type Department Care Team (Late st Contact Info) Description 06/03/2019 Transcribed Document [facility] Family Medicine [facility] [place] [address] ProviderRikki MD [address] [place] [address] Social History Tobacco Use Types Packs/Day [...] Montoya MD - 06/03/2019 2:51 PM CDT [facility] [place] [address] KASSI KONG :1970 Visit Time:06/03/2019 Your Visit Summary Your Care Team Admitting Physician - DRE POWER MARK, MD Attending Physician - MARIEL MCCRAY MD Primary Care Physician - ALVARADO STILES (REF), -[facility] Referring Physician - MARIEL MCCRAY MD [...] in the future. Where: [place] [address]- Allergies SUMAtriptan (Other Anaphylactic Shock, Other Anaphylactic [...] range between ( 0.0 and 7.0 ) Codington #: 0.44 K/uL -- Normal range between ( 0.16 and 1.00 ) Eos #: 0.28 x10(3)/uL -- Normal range between ( 0.00 and 0.80 ) Codington %: 5.2 % -- Normal range between [...] ) Urine Bilirubin Dipstick: Negative Urine Specific Cantil: 1.021 -- Normal range between ( 1.005 [...] stand. This can reduce dizziness. ??? Take npdp-yzg-ormnqzz and prescription medicines only as told by [...] 10/01/2006 Document Revised: 03/08/2017 Document Reviewed: 06/14/2016 [employer] Interactive Patient Education ?? 2018 [employer] Head Injury, Adult There are many [...] Ask your health care provider for a yfkg-wv-dgtb plan for gradually returning to activities. ??? [...] your friends, family, a trusted colleague, and ornamental ironworking supervisor about your injury, symptoms, and restrictions. Have them watch for any new or worsening problems. General instructions ??? Take uioc-jjc-rrmjzec and prescription medicines only as told by [...] 04/10/2017 Elsevier Interactive Patient Education ?? 2019 [employer] Contusion A contusion is a deep [...] This is often called the RICE strategy. Ikgl-csu-eqeccoc anti-inflammatory medicines may also be recommended for [...] are sitting or lying down. ??? Take itoy-jtc-sxetwfw and prescription medicines only as told by [...] 07/11/2006 Document Revised: 02/08/2017 Document Reviewed: 02/16/2016 [employer] Interactive Patient Education ?? 2019 [employer] Concussion, Adult A concussion is a [...] are taking any medicines, including prescription medicines, hafo-srk-zhkhyrm medicines, and natural remedies. Some medicines, such [...] returning to activities. General instructions ??? Take jety-zyn-mddnybs and prescription medicines only as told by [...] Tell your teachers, school nurse, school counselor, agile coach, sports athletic trainer, or ornamental ironworking supervisor about your injury, symptoms, and restrictions. [...] 12/21/2004 Document Revised: 09/11/2017 Document Reviewed: 09/11/2017 [employer] Interactive Patient Education ?? 2019 [employer] Emergency Awareness and Preventative Care STROKE [...] Assistance with quitting is available by contacting 8-442-BAMM-NOW. This is a free resource providing counseling, [...] was given the opportunity to ask questions. Patient/Peanut Vendor Name: Patient/Peanut Vendor Signature: Relationship to Patient: Clinician/Hospital Peanut Vendor Signature: Please Provide a Telephone Number Where You Can Be Reached: Is it Permissible To Leave a Message? Date: documented in this encounter Plan of Treatment Not on file documented as of this encounter Visit Diagnoses Not on filedocumented in this encounter
--- OUTSIDE RECORDS SUMMARY | 2025-05-13 10:42 | XMS_ITS | Encounter Summary ---
Author Organization [employer] ([place], [place], [place], [place]) Address [address] [place] [address] Care Team Providers Care Children'S Attendant Name Role Phone Unavailable Primary Care Provider Unavailabl e Encounter Details Date Type Department Care Team (Late st Contact Info) Description 06/03/2019 Transcribed Document [facility] Family Medicine [address] [place] [address] ProviderRikki MD [address] [place], [place] [id number] Social History Tobacco Use Types Packs/Day Years [...] Communication Barrier : None Primary Language : Hong Konger Any Spiritual/Cultural Needs or Requests : No [...] - 06/03/2019 11:10 EDT Electronically signed by [facility] Conversion Dredge Operator Cerner at 01/28/2023 10:51 PM CDT documented in this encounter Plan of Treatment Not on file documented as of this encounter Visit Diagnoses Not on filedocumented in this encounter
--- OUTSIDE RECORDS SUMMARY | 2025-05-13 10:42 | XMS_ITS | Clinical Summary ---
[facility] Address [address] [place] [address] Care Team Providers Care Softball Core Molder Name Role Phone Provider, No Known Primary [...] 01/16/2022, 07/27/2021 Insurance [employer] Care Teams Softball Core Molder Relationship Specialty Start Date End Date Provider, [place] [address] PCP - General 08/09/23
--- OUTSIDE RECORDS SUMMARY | 2025-05-13 10:42 | XMS_ITS | Encounter Summary ---
Author Organization [employer] ([place], [place], [place], [place]) Address [address] [place] [address] Care Team Providers Care Sales Account Executive Name Role Phone Unavailable Primary Care Provider Unavailabl e Encounter Details Date Type Department Care Team (Late st Contact Info) Description 06/03/2019 Transcribed Document [facility] [place] [facility] [place] [address] ProviderRikki MD [address] [place] [id number] Social History Tobacco Use Types Packs/Day Years [...] CDT Electronically signed by Giacomo Azar Conversion Caustic Cresylate Shift Superintendent Rajwinder at 01/28/2023 11:12 PM CDT documented in this encounter Plan of Treatment Not on file documented as of this encounter Visit Diagnoses Not on filedocumented in this encounter
--- OUTSIDE RECORDS SUMMARY | 2025-05-13 10:42 | XMS_ITS | Encounter Summary ---
Author Organization [facility] Address [address] [place] [address] Care Team Providers Care College Intern Name Role Phone Valentin Daniel MD Primary Care Provider Reason for Referral * Consultation (Routine) - Authorized Specialty Diagnoses / Procedures Referred By Contac t Referred To Contact Neurology Diagnoses Left foot drop Mechanical problems with limbs Polyneuropathy Valentin Daniel MD [address] [place] [address] Phone: tel: fax: Referral ID Status Reason Start Date Expiration Date Visits Requested Visits Authorized [id number] Authorized Specialty Services Required 02/16/2025 08/18/2026 1 1 Encounter Details Date Type Department Care Team (Late st Contact Info) Description 02/16/2025 Community [facility] Community Practice [address] [place] [address] Valentin Daniel MD [address] [place] [address] Left foot drop (Primary Dx); Mechanical [...] Description 10/30/2025 8:[address] [facility] [address] [place] [address] Sim Tillman MD [address] [place] [address] 11/11/2025 12:50 PM EST Office Visit [facility] Medicine Specialties [address] [place] [address] Angela Todd APRN [address] [place] [address] Scheduled Referrals Name Type Priority [...] documented as of this encounter Care Teams College Intern Relationship Specialty Start Date End Date Valentin Daniel MD PCP - General 09/18/22 documented as of this encounter
--- OUTSIDE RECORDS SUMMARY | 2025-05-13 10:42 | XMS_ITS | Encounter Summary ---
Author Organization [employer] ([place], [place], [place], [place]) Address [address] [place] [address] Care Team Providers Care Rolls Mill Operator Name Role Phone Unavailable Primary Care Provider Unavailabl e Encounter Details Date Type Department Care Team (Late st Contact Info) Description 06/21/2021 Transcribed Document [facility] Family Medicine [address] [place] [address] ProviderRikki MD [address] [place], [place] [phone] Social History Tobacco Use Types Packs/Day Years [...] Historical ProviderMD - 06/21/2021 9:55 PM CDT [place] Suicide Severity Rating Scale (C-SSRS) Entered On: 06/21/2021 22:29 EDT Performed On: 06/21/2021 22:27 EDT by Aruna Garcia [place] Suicide Severity Rating Scale (C-SSRS) CSSRS Past Month Wish to be : No CSSRS Past Month Suicidal Thoughts : No CSSRS Lifetime Suicide Behavior : No Suicide Severity Rating Score : 0 Suicide Severity Rating : No Additional Care Required at this time Aruna Garcia - 06/21/2021 22:27 EDT Electronically signed by Giacomo Azar Conversion Aerospace Engineer Officer Armament Cerner at 01/28/2023 10:57 PM CDT documented in this encounter Plan of Treatment Not on file documented as of this encounter Visit Diagnoses Not on filedocumented in this encounter
--- OUTSIDE RECORDS SUMMARY | 2025-05-13 10:42 | XMS_ITS | Encounter Summary ---
Author Organization [facility] Address [address] [place] [address] Care Team Providers Care Clinic Physician Name Role Phone Valentin Daniel MD Primary Care Provider [phone] Encounter Details Date Type Department Care Team (Latest Contact Info) Description 02/05/2025 Community [facility] Community Practice [address] [place] [address] Valetnin Daniel MD [address] [place] [address] Polyneuropathy (Primary Dx); Foot drop, left foot [...] Consult [place] [facility] [address] [place] [address] Sim Tillman MD [address] [place] [address] 11/11/2025 12:50 PM EST Office Visit [facility]ties [address] [place] [address] Angela Todd, CLINICAL APPLICATION SPECIALIST [address] [facility] [address] [place] [address] documented as of this encounter [...] documented as of this encounter Care Teams Clinic Physician Relationship Specialty Start Date End Date Valentin Daniel MD PCP - General 09/18/22 documented as of this encounter
--- OUTSIDE RECORDS SUMMARY | 2025-05-13 10:42 | XMS_ITS | Encounter Summary ---
Author Organization [employer] ([place], [place], [place], [place]) Address [address] [place] [address] Care Team Providers Care Freight Loading Supervisor Name Role Phone Unavailable Primary Care Provider Unavailabl e Encounter Details Date Type Department Care Team (Late st Contact Info) Description 06/03/2019 Transcribed Document [facility] Family Medicine [address] [place] [address] ProviderRikki MD [address] [place] [id number] Social History Tobacco Use Types Packs/Day Years [...] EDT DCP GENERIC CODE Tracking Group : [facility] ED MARC GREENWOOD RN - 06/03/2019 [...] Recent Thoughts of Harming/Killing Others : No Porcelain Slusher Needed : No MARC GREENWOOD RN - [...] PNED ; Probability: 0 ; Diagnosis Code: [id number] ED Height and Weight Height Source : Stated Height Entry Format : [place] Height, Feet : 5 ft(Converted to: 152 cm, 60 Inch) Height, Inches : 3 Inch(Converted to: 0 ft 3 Inch, 7.62 cm) Clinical Height : 160.02 cm Weight Source, ED : Critical estimated dosing weight Weight Entry Format : [place] Weight, Pounds : 220 lb Clinical Dosing Weight : 100 kg Body Surface Area (BSA) : 2.02 m2 Body Mass Index : 39.1 kg/m2 (HI) [place] Body Weight (IBW) : 52.02 kg MARC [...]
--- OUTSIDE RECORDS SUMMARY | 2025-05-13 10:42 | XMS_ITS | Clinical Summary ---
Author Organization [facility] Address [address] [place] [address] Care Team Providers Care Television Parts Tester Name Role Phone Valentin Daniel MD Primary Care Provider [phone] Allergies Active Allergy Reactions Criticality Noted Date [...] cream 01/21/20 21 Active ergocalciferol 1.25 MG (25430 UT) capsule TAKE ONE CAPSULE BY MOUTH EVERY WEEK DIRECTED 03/01/20 21 Active HYDROcodone-aceta minophen ([place]amon) 10-325 MG tablet TAKE ONE TABLET BY [...] MG tablet 01/28/20 24 Active nystatin (Mycostatin) 831346 UNIT/GM powder 02/01/20 24 Active omeprazole (PriLOSEC) [...] patient was discharged home. Acute allergic reaction 07/16/2024 1011/2023 Acute hypokalemia 07/16/2024 07/16/2024 Overview (07/16/2024): This [...] Encounters Date Type Department Care Team Description 05/13/[address] [facility] [address] [place] [address] Angela Todd APRN 05/11/2025 Results Follow-Up [facility] [address], [address] [place] [address] Angela Todd APRN 05/06/2025 1:20 PM EDT Office Visit [facility] [address], [address] [place] [address] Angela Todd, PRESIDING STEWARD Positive RENETTA (antinuclear antibody) (Primary Dx); High risk medication use; Long-term use of hydroxychloroquine 05/06/2025 Travel 02/16/2025 Community [facility] [address] [place] [address] Valentin Daniel MD Left foot drop (Primary Dx); Mechanical problems with limbs; Polyneuropathy from Last 3 Months Immunizations Immunization Administration [...] Info) Description 10/30/2025 8:00 AM EST Consult [facility] [address], [address] [place] [address] Sim Tillman MD [address] [place] [address] 11/11/2025 12:50 PM EST Office Visit [facility] [address], [address] [place] [address] Angela Todd, PRESIDING STEWARD [address] [place] [address] Health Maintenance Due Date Last [...] (2 - Td or Tdap) 06/20/2021 06/20/2011 [id number] Vaccine ( season) 2024 07/14/2021, 11/17/2020, 10/28/2020 UKY-Influenza Vaccine [...] risk medication use Long-term use of hydroxychloroquine DOUBLE-STRANDED DNA (DSDNA) ANTIBODY, IGG BY IFA (SO) Routine 05/06/2025 2:08 PM EDT Positive RENETTA [...] EDT 05/06/2025 2:30 PM EDT us Angela Todd APRN LAB URINE ORDERABLES Veronica syed Result [facility] [address] [place] [address] * Protein, Random, Urine with Creatinine (05/06/2025 2:30 PM EDT) Pathologist [facility] Protein, Urine 20 mg/dL 05/06/2025 4:34 PM EDT [facility] Creatinine, Urine 141 mg/dL 05/06/2025 4:34 PM EDT [facility] Protein/Creatin ine Ratio 0.1 mg/mg Creat 05/06/2025 4:34 PM EDT [facility] Urine Urine specimen obtained by clean catch procedure / Unknown Non-blood Collection / Unknown 05/06/2025 2:30 PM EDT 05/06/2025 2:30 PM EDT us Angela Todd APRN LAB URINE ORDERABLES Veronica syed Result [facility] [address] [place] [address] * (ABNORMAL) Urinalysis with reflex microscopic (Culture NOT Included) (05/06/2025 2:30 PM EDT) Color, Urine Dark Yellow LAB URINALYSIS - AUTOMATED METHOD 05/06/2025 4:28 PM EDT [facility] Clarity, Urine Cloudy LAB URINALYSIS - AUTOMATED METHOD 05/06/2025 4:28 PM EDT [facility] Spec [place], Urine 1.026 1.005 - 1.030 LAB URINALYSIS - AUTOMATED METHOD 05/06/2025 4:28 PM EDT [facility] pH, Urine 5.5 5.0 - 8.0 LAB URINALYSIS - AUTOMATED METHOD 05/06/2025 4:28 PM EDT [facility] Protein, Urine 30(A) Negative mg/dL LAB URINALYSIS - AUTOMATED METHOD 05/06/2025 4:28 PM EDT [facility] Glucose, Urine >=1000(A) Negative mg/dL LAB URINALYSIS - AUTOMATED METHOD 05/06/2025 4:28 PM EDT [facility] Ketones, Urine Trace(A) Negative mg/dL LAB URINALYSIS - AUTOMATED METHOD 05/06/2025 4:28 PM EDT [facility] Blood, Urine Large(A) Negative LAB URINALYSIS - AUTOMATED METHOD 05/06/2025 4:28 PM EDT [facility] Bilirubin, Urine Small(A) Negative LAB URINALYSIS - AUTOMATED METHOD 05/06/2025 4:28 PM EDT [facility] Urobilinogen, Urine 0.2 0.2 to 1.0 mg/dL LAB URINALYSIS - AUTOMATED METHOD 05/06/2025 4:28 PM EDT [facility] Leukocytes, Urine Negative Negative LAB URINALYSIS - AUTOMATED METHOD 05/06/2025 4:28 PM EDT [facility] Nitrite, Urine Negative Negative LAB URINALYSIS - AUTOMATED METHOD 05/06/2025 4:28 PM EDT [facility] RBC, Urine >50(A) 0 to 3 /HPF LAB URINALYSIS - AUTOMATED METHOD 05/06/2025 4:28 PM EDT [facility] WBC, Urine 6 - 10(A) 0 to 5 /HPF LAB URINALYSIS - AUTOMATED METHOD 05/06/2025 4:28 PM EDT [facility] Squamous Epithelial Cells 0 - 2 0 to 5 /HPF LAB URINALYSIS - AUTOMATED METHOD 05/06/2025 4:28 PM EDT [facility] Hyaline Casts 0 - 2 0 to 5 /LPF LAB URINALYSIS - AUTOMATED METHOD 05/06/2025 4:28 PM EDT [facility] Bacteria, Urine Negative Negative LAB URINALYSIS - AUTOMATED METHOD 05/06/2025 4:28 PM EDT [facility] Renal Tubular Cells Present Absent 05/06/2025 4:28 PM EDT [facility] Transitional Epithelial Cells Present Absent 05/06/2025 4:28 PM EDT [facility] Calcium Oxalate Crystals Present Absent 05/06/2025 4:28 PM EDT [facility] Urine Urine specimen obtained by clean catch procedure / Unknown Non-blood Collection / Unknown 05/06/2025 2:30 PM EDT 05/06/2025 2:30 PM EDT Narrative [facility] - 05/06/2025 4:28 PM EDT Performed by manual method us Angela Todd APRN LAB URINE ORDERABLES Veronica syed Result [facility] [address] [place] [address] * Double-Stranded DNA (dsDNA) Antibody, IgG by IFA (05/06/2025 2:08 PM EDT) Pathologist [facility] Double-Strande d DNA (dsDNA) Ab IgG IFA <1:10 <1:10 05/08/2025 11:43 PM EDT [facility]) Blood Venous blood specimen / Unknown Venipuncture / Unknown 05/06/2025 2:08 PM EDT 05/06/2025 2:09 PM EDT Narrative [facility]) - 05/08/2025 11:43 PM EDT INTERPRETIVE INFORMATION: [...] recommendations for testing may be found at https://SocialCrunch/content/vkcsubgdin-jgpylm-[email or web address]. Performed By: [facility] [address] [place] [address] Nitroglycerin Neutralizer: Abundio Urias MD, PhD CLIA Number: [id number] Angela Todd APRN LAB BLOOD ORDERABLES Veronica syed Result [facility]) [address] [place] [address] * Creatinine, Plasma (05/06/2025 2:08 PM EDT) Pathologist [facility] Creatinine, Plasma 0.62 0.60 - 1.10 mg/dL 05/06/2025 3:35 PM EDT [facility] eGFRcr 106.0 mL/min/1.7 3m*2 05/06/2025 3:35 PM EDT [facility] Comment:Reported eGFRcr in m L/min/1.73m2 is based the CKD-EPI 2020 equation that does not use a race coefficient. Blood Venous blood specimen / Unknown Venipuncture / Unknown 05/06/2025 2:08 PM EDT 05/06/2025 2:09 PM EDT Angela Todd APRN LAB BLOOD ORDERABLES Veronica l Result Performing Organization Address City/[facility] Co de Phone Number [facility] [address] [place] [address] * (ABNORMAL) Sedimentation Rate, Automated (05/06/2025 2:08 PM EDT) Sedimentation Rate 38(H) <30 mm/hr 2024 4:06 PM EDT [facility] Blood Venous blood specimen / Unknown Venipuncture / Unknown 05/06/2025 2:08 PM EDT 05/06/2025 2:09 PM EDT Angela Todd APRN LAB BLOOD ORDERABLES Veronica l Result Performing Organization Address [facility] Co de Phone Number [facility] [address] [place] [address] * (ABNORMAL) CBC and Differential (05/06/2025 2:08 PM EDT) WBC Count 9.44 3.70 - 10.30 10*3/uL LAB HEMATOLOGY METHOD 05/06/2025 3:39 PM EDT [facility] RBC Count 5.15 3.90 - 5.20 10*6/uL LAB HEMATOLOGY METHOD 05/06/2025 3:39 PM EDT [facility] HGB 14.4 11.2 - 15.7 g/dL LAB HEMATOLOGY METHOD 05/06/2025 3:39 PM EDT [facility] HCT 44.7 34.0 - 45.0 % LAB HEMATOLOGY METHOD 05/06/2025 3:39 PM EDT [facility] Platelet Count 337 155 - 369 10*3/uL LAB HEMATOLOGY METHOD 05/06/2025 3:39 PM EDT [facility] MCV 87 79 - 98 fL LAB HEMATOLOGY METHOD 05/06/2025 3:39 PM EDT [facility] MCH 28.0 26.0 - 32.0 pg LAB HEMATOLOGY METHOD 05/06/2025 3:39 PM EDT [facility] MCHC 32.2 30.7 - 35.5 g/dL LAB HEMATOLOGY METHOD 05/06/2025 3:39 PM EDT [facility] RDW 13.9 11.5 - 14.5 % LAB HEMATOLOGY METHOD 05/06/2025 3:39 PM EDT [facility] MPV 11.9 8.8 - 12.5 fL LAB HEMATOLOGY METHOD 05/06/2025 3:39 PM EDT [facility] nRBC 0.0 <=0.0 per 100 WBCs LAB HEMATOLOGY METHOD 05/06/2025 3:39 PM EDT [facility] Differential Type Automated LAB HEMATOLOGY METHOD 05/06/2025 3:39 PM EDT [facility] Neutrophils % 56 % LAB HEMATOLOGY METHOD 05/06/2025 3:39 PM EDT [facility] Lymphocytes % 32 % LAB HEMATOLOGY METHOD 05/06/2025 3:39 PM EDT [facility] Monocytes % 6 % LAB HEMATOLOGY METHOD 05/06/2025 3:39 PM EDT [facility] Eosinophils % 5 % LAB HEMATOLOGY METHOD 05/06/2025 3:39 PM EDT [facility] Basophils % 1 % LAB HEMATOLOGY METHOD 05/06/2025 3:39 PM EDT [facility] Immature Granulocytes % 0 % LAB HEMATOLOGY METHOD 05/06/2025 3:39 PM EDT [facility] Neutrophils Absolute 5.32 1.60 - 6.10 10*3/uL LAB HEMATOLOGY METHOD 05/06/2025 3:39 PM EDT [facility] Lymphocytes Absolute 3.00 1.20 - 3.90 10*3/uL LAB HEMATOLOGY METHOD 05/06/2025 3:39 PM EDT [facility] Monocytes Absolute 0.56 0.30 - 0.90 10*3/uL LAB HEMATOLOGY METHOD 05/06/2025 3:39 PM EDT [facility] Eosinophils Absolute 0.43 0.00 - 0.50 10*3/uL LAB HEMATOLOGY METHOD 05/06/2025 3:39 PM EDT [facility] Basophils Absolute 0.11(H) 0.00 - 0.10 10*3/uL LAB HEMATOLOGY METHOD 05/06/2025 3:39 PM EDT [facility] Immature Granulocytes Absolute 0.02 0.00 - 0.06 10*3/uL LAB HEMATOLOGY METHOD 05/06/2025 3:39 PM EDT [facility] Blood Venous blood specimen / Unknown Venipuncture / Unknown 05/06/2025 2:08 PM EDT 05/06/2025 2:09 PM EDT Narrative [facility] - 05/06/2025 3:39 PM EDT Therapeutic decision making should be based on absolute values, rather than percentages. Angela Todd APRN LAB BLOOD ORDERABLES Veronica l Result Performing Organization Address City/[facility]/ZIP Co de Phone Number [facility] [address] [place] [address] * C3 Complement (05/06/2025 2:08 PM EDT) C3 Complement 149 84 - 166 mg/dL 05/06/2025 3:30 PM EDT [facility] Blood Venous blood specimen / Unknown Venipuncture / Unknown 05/06/2025 2:08 PM EDT 05/06/2025 2:09 PM EDT us Angela Todd APRN LAB BLOOD ORDERABLES Veronica l Result [facility] [address] [place] [address] * C4 Complement (05/06/2025 2:08 PM EDT) C4 Complement 25 13 - 36 mg/dL 05/06/2025 3:30 PM EDT [facility] Blood Venous blood specimen / Unknown Venipuncture / Unknown 05/06/2025 2:08 PM EDT 05/06/2025 2:09 PM EDT Angela Todd APRN LAB BLOOD ORDERABLES Veronica l Result [facility] [address] [place] [address] * C-Reactive Protein, Plasma (05/06/2025 2:08 PM EDT) CRP, Plasma <3.0 <=8.0 mg/L 05/06/2025 3:35 PM EDT [facility] Blood Venous blood specimen / Unknown Venipuncture / Unknown 05/06/2025 2:08 PM EDT 05/06/2025 2:09 PM EDT Narrative [facility] - 05/06/2025 3:35 PM EDT This CRP test is appropriate for assessment of infection, systemic inflammation and/or tissue injury. To assess cardiovascular disease risk order high sensitivity CRP (CRPH). Angela Todd APRN LAB BLOOD ORDERABLES Veronica syed Result Performing Organization Address [facility] Co de Phone Number [facility] [address] [place] [address] * (ABNORMAL) Hepatic Function Panel (05/06/2025 2:08 PM EDT) Pathologist [facility] Conjugated Bilirubin, Plasma <0.2 <=0.3 mg/dL 05/06/2025 3:35 PM EDT [facility] Alkaline Phosphatase, Plasma 107(H) 35 - 104 U/L 05/06/2025 3:35 PM EDT [facility] Total Bilirubin, Plasma 0.2 0.2 - 1.1 mg/dL 05/06/2025 3:35 PM EDT [facility] Albumin, Plasma 3.9 3.5 - 5.2 g/dL 05/06/2025 3:35 PM EDT [facility] Total Protein 7.2 6.3 - 7.9 g/dL 05/06/2025 3:35 PM EDT [facility] ALT, Plasma 43(H) 10 - 35 U/L 05/06/2025 3:35 PM EDT [facility] AST, Plasma 35 10 - 35 U/L 05/06/2025 3:35 PM EDT [facility] Blood Venous blood specimen / Unknown Venipuncture / Unknown 05/06/2025 2:08 PM EDT 05/06/2025 2:09 PM EDT us Angela Todd PRESIDING STEWARD LAB BLOOD ORDERABLES Veronica syed Result 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
--- OUTSIDE RECORDS SUMMARY | 2025-05-13 10:42 | XMS_ITS | Encounter Summary ---
Author Organization [facility] ([place], [place], [place], [place]) Address [address] [place] [address] Care Team Providers Care Personal Trainer Name Role Phone Unavailable Primary Care Provider Unavailabl e Encounter Details Date Type Department Care Team (Late st Contact Info) Description 06/03/2019 Transcribed Document [facility] [place] [address] ProviderRikki MD [address] [place] [id number] Social History Tobacco Use Types Packs/Day Years [...] EDT Height Source Stated Height Entry Format [place] Height/Length, TOGOLESE (ft) 5 ft Height/Length TOGOLESE 3 Inch CLINICALHEIGHT 160.02 cm Bunn Body Weight 52.02 kg Weight Source, ED Critical estimated dosing weight Weight Entry Format [place] Weight Gu[place]ese lb 220 lb CLINICALWEIGHT 100 kg Body [...] Hand pain, wrist pain, fracture, sprain, contusion, [place], head injury, concussion,. Orders Include Previous Orders (Selected) Inpatient Orders Ordered EKG: Completed .Automated Differential: .Urinalysis Microscopic: CBC w/ Auto Diff: CMP Comprehensive Metabolic Panel: CR Hand Min 3 Vws RT: CT Head WO: Cardiac Monitoring: ED Adult Fall Risk Assessment: ED Adult Triage: ED Clinical Reconciliation: ED customer complaint service supervisor: Normal Saline Flush: 10 mL, IV Push, [...] Color Yellow Urine Appearance Clear Urine Specific [place] 1.021 Urine pH Dipstick 7.5 Urine Leukocyte [...] % 30.2 % Lymph # 2.54 x10(3)/uL [place] % 5.2 % [place] # 0.44 K/uL Eos % 3.3 % [...] Fall Scale Risk Level 0-24 Low Risk [place] Fall Interventions Adequate lighting, Bed in low position, Call device within reach, Hourly comfort/safety rounds, Non-Slip footwear, Personal items within reach, Reinforced to call for assistance before getting out of bed, Room free of clutter/spills, Upper side-rails up, Wheels locked, Wires/Cords secured Fall Moderate to High Risk Interventions Patient room close to nurses station Communication Barrier None Primary Language Gu[place]ese Information Obtained From Patient Smoking Status Refused [...] air Height Source Stated Height Entry Format [place] Height/Length, TOGOLESE (ft) 5 ft Height/Length TOGOLESE 3 Inch CLINICALHEIGHT 160.02 cm Bunn Body Weight 52.02 kg Weight Source, ED Critical estimated dosing weight Weight Entry Format [place] Weight Gu[place]ese lb 220 lb CLINICALWEIGHT 100 kg Body [...] Ambulate Tracking Acuity 3 - Urgent (Modified) Progressive Care Unit Registered Nurse Needed No Accompanied by Unaccompanied Mode of Arrival Ambulatory 06/03/2019 10:46 EDT Nurse Collect Order Detail 3.00 Nurse Collect Order Detail 3.00 . Radiology results: Radiology Results (Last 48 hours) [id number] -- 06/03/2019 10:45 CR Hand Min 3 [...] Syncope. Follow up with: ALVARADO STILES (REF)[facility] Within 2 to 3 days [...]
[2025-05-13 11:20] LABS: PHA INR Fingerstick 2.4 (0.9-1.1)
== END 2025-05-13 11:21 ==
LOC: ACC 10:40
PROVIDERS: PCP Family Medicine; Visit Provider Family Medicine
DX: G45.9 Transient cerebral ischemic attack, unspecified (principal)
CPT/HCPCS: 85610; 99211; G0463

== ENCOUNTER 2025-05-18 08:33 | Outpatient (POV) | payer OTHER, SELFPAY ==
--- OUTSIDE RECORDS SUMMARY | 2025-05-06 13:20 | XMS_ITS | Encounter Summary ---
Author Organization [facility] Address [address] [place] [address] Care Team Providers Care Forensic Manager Name Role Phone Valentin Daniel MD Primary Care Provider [phone] Reason for Visit * Reason Comments Follow-up Mental status, decre ased Encounter Details Date Type Department Care Team (Latest Contact Info) Description 05/06/2025 1:20 PM EDT Office Visit [facility] [address] [place] [address] Angela Todd, BUTTON TUFTER [address] [place] [address] Positive RENETTA (antinuclear antibody) (Primary [...] * Progress Notes - Peyton, Angela Josie, BUTTON TUFTER - 05/06/2025 1:20 PM EDT Kassi Claudio [...] - SSA. - SSB. - Daniels. 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 10 year history of Raynaud's. Describes blanching. No digit ulcerations. History of multiple blood clots. + LAC x 2. - B2 glycoprotein. - cardiolipin. Rash on chest that is now resolved with use of HCQ. 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 Med hx: Hydroxychloriquine (2018-current) Interim history: Last [...] Pt still struggles with fibromyalgia. Currently takes [place] and Lyrica. Denies any blood clots. Continues on hydroxychloriquine. Pt has upcoming eye exam in June. She has had several UTI's and kidney stones since the last visit. She follows with pain management for CBP. She endorses morning stiffness, around 30 minutes. She had XR completed at [facility]. She is following with Dr. Billingsley, orthopedics at [facility]. She denies any SOB, CP Review [...] allergic reaction 07/16/2024 Acute CVA (cerebrovascular accident) ([facility]) 07/16/2024 Acute hypokalemia 07/16/2024 This has been repleted and was a postsurgical issue. 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 Antiphospholipid antibody syndrome ([facility]) 10/28/2018 Anxiety 08/18/2015 Atypical angina 07/16/2024 Back pain 06/25/2013 Brown's esophagus without dysplasia Brown's esophagus without dysplasia Bronchitis 07/16/2024 CAD (coronary artery disease) 07/16/2024 Calcaneal spur, left 07/16/2024 Calculus of ureterovesical junction (UVJ) 07/16/2024 Callus of foot 07/16/2024 Cardiac murmur 07/16/2024 CHF (congestive heart failure) ([facility]) 07/16/2024 Close exposure to COVID-19 virus 07/16/2024 Conversions - Other Depression Conversions - Other Hiatal Hernia Conversions - Other Leiomyoma Of The Uterus Conversions - Other Lyme Disease Cough 07/16/2024 COVID-19 07/16/2024 Diastolic dysfunction 07/16/2024 Dizziness 07/16/2024 Dropfoot 07/16/2024 DVT (deep venous thrombosis) ([facility]) 04/04/2016 Dysuria 07/16/2024 Edema 07/16/2024 Enterocolitis due to Clostridium difficile, not specified as recurrent Clostridium difficile diarrhea Environmental and seasonal allergies 07/16/2024 Essential hypertension 11/03/2015 Facial paresthesia 07/16/2024 Fall 07/16/2024 Falling 07/16/2024 Fibromyalgia 11/08/2019 Ganglion, unspecified site Ganglion Gastro-esophageal reflux disease without esophagitis 06/25/2013 GERD with esophagitis 07/16/2024 Heart failure Hyperparathyroidism ([facility]) 07/16/2024 Hypertensive heart disease 07/16/2024 Injury of [...] Left ankle instability 07/16/2024 Left leg DVT ([facility]) 07/16/2024 Left leg weakness 07/16/2024 Lesion of nose 07/16/2024 Lumbar nerve root impingement 06/30/2014 Lumbosacral neuritis 04/28/2015 Menopausal and female climacteric states Menopausal syndrome (hot flashes) Methicillin resistant Staphylococcus aureus infection, unspecified site MRSA (methicillin resistant Staphylococcus aureus) Migraine 07/16/2024 Morbid obesity with body mass index (BMI) of 40.0 to 49.9 ([facility]) 07/16/2024 Myalgia 06/27/2018 Other intervertebral disc displacement, [...] Procedure Laterality Date APPENDECTOMY N/A Appendectomy from [email or web address] BACK SURGERY N/A Back Surgery from [email or web address] CARPAL TUNNEL RELEASE N/A Neuroplasty Decompression Median Nerve At Carpal Tunnel from [email or web address] SECTION, LOW TRANSVERSE N/A Section from [email or web address] CHOLECYSTECTOMY N/A Cholecystectomy Laparoscopic from [email or web address] GASTRIC BYPASS HYSTERECTOMY N/A Hysterectomy from [email or web address] LAPAROSCOPIC DIANELYS FUNDOPLICATION N/A Esophagogastric Fundoplasty Dianelys Fundoplication from [email or web address] OTHER SURGICAL HISTORY N/A Knee Arthroscopy from [email or web address] Social History Socioeconomic History Marital status: Spouse [...] Not on file Social History Narrative Working [employer] Marital History - Currently Social Drivers of Health Financial Resource Strain: Not on file Food Insecurity: Not on file Transportation Needs: Not on file Physical Activity: Not on file Stress: Not on file Social Connections: Unknown (07/23/2023) Received from [facility] Family and Community Support Help with Day-to-Day Activities: Not on file Lonely or Isolated: Not on file Intimate Partner Violence: Unknown (07/23/2023) Received from [facility] Abuse Screen Unsafe at Home or Work/School: Not on file Feels Threatened by Someone?: Not on file Does Anyone Keep You from Contacting Others or Doint Things Outside the Home?: Not on file Physical Sign of Abuse Present: Not on file Housing Stability: Unknown (07/23/2023) Received from [facility] Housing Stability Current Living Arrangements: Not on [...] Take 1 tablet by mouth daily. HYDROcodone-acetaminophen ([place]) 10-325 MG tablet TAKE ONE TABLET BY [...] (Temovate) 0.05 % cream ergocalciferol 1.25 MG (20356 UT) capsule TAKE ONE CAPSULE BY MOUTH EVERY WEEK DIRECTED ferrous sulfate 325 (65 Fe) MG tablet PLEASE SEE ATTACHED FOR DETAILED DIRECTIONS (Patient not taking: Reported on 07/16/2024) furosemide (Lasix) 20 MG tablet if needed. nystatin (Mycostatin) 310384 UNIT/GM powder omeprazole (PriLOSEC) [address] [...] consider testing for antibodies against cardiolipin and [id number] I. Final aPTT Lupus Anticoagulant Sensitive 07/16/2024 [...] Glycoprotein IgM Inter* 07/16/2024 Negative Negative Final [id number] 1, IgA Antibody 07/16/2024 <10 <=20 ALDEN [...] by another provider. Currently taking Lyrica and [place] - Continue with pain management. 4. Bilateral hip pain Imaging from 03/07 with mild degenerative changes 5. longterm use of hydroxychloriquine 6. High risk medication use -routine labs today -pt is due for eye exam in June [facility] 6 months The patient was counseled [...] Info) Description 10/30/2025 8:00 AM EST Consult [facility] [address] [place] [address] Sim Tillman MD [address] [place] [address] 11/11/2025 12:50 PM EST Office Visit [facility] [address] [place] [address] Angela Todd, ANGELITO [address] [place] [address] documented as of this encounter Results * (ABNORMAL) Urinalysis with reflex microscopic (Culture NOT Included) (05/06/2025 2:30 PM EDT) Color, Urine Dark Yellow LAB URINALYSIS - AUTOMATED METHOD 05/06/2025 4:28 PM EDT [facility] Clarity, Urine Cloudy LAB URINALYSIS - AUTOMATED METHOD 05/06/2025 4:28 PM EDT [facility] Spec [place], Urine 1.026 1.005 - 1.030 LAB URINALYSIS - AUTOMATED METHOD 05/06/2025 4:28 PM EDT [facility] pH, Urine 5.5 5.0 - 8.0 LAB URINALYSIS - AUTOMATED METHOD 05/06/2025 4:28 PM EDT [facility] Protein, Urine 30(A) Negative mg/dL LAB URINALYSIS - AUTOMATED METHOD 05/06/2025 4:28 PM EDT [facility] Glucose, Urine >=1000(A) Negative mg/dL LAB URINALYSIS - AUTOMATED METHOD 05/06/2025 4:28 PM EDT [facility] Ketones, Urine Trace(A) Negative mg/dL LAB URINALYSIS - AUTOMATED METHOD 05/06/2025 4:28 PM EDT [facility] Blood, Urine Large(A) Negative LAB URINALYSIS - AUTOMATED METHOD 05/06/2025 4:28 PM EDT [facility] Bilirubin, Urine Small(A) Negative LAB URINALYSIS - AUTOMATED METHOD 05/06/2025 4:28 PM EDT [facility] Urobilinogen, Urine 0.2 0.2 to 1.0 mg/dL LAB URINALYSIS - AUTOMATED METHOD 05/06/2025 4:28 PM EDT [facility] Leukocytes, Urine Negative Negative LAB URINALYSIS - AUTOMATED METHOD 05/06/2025 4:28 PM EDT [facility] Nitrite, Urine Negative Negative LAB URINALYSIS - AUTOMATED METHOD 05/06/2025 4:28 PM EDT [facility] RBC, Urine >50(A) 0 to 3 /HPF LAB URINALYSIS - AUTOMATED METHOD 05/06/2025 4:28 PM EDT [facility] WBC, Urine 6 - 10(A) 0 to 5 /HPF LAB URINALYSIS - AUTOMATED METHOD 05/06/2025 4:28 PM EDT [facility] Squamous Epithelial Cells 0 - 2 0 to 5 /HPF LAB URINALYSIS - AUTOMATED METHOD 05/06/2025 4:28 PM EDT [facility] Hyaline Casts 0 - 2 0 to 5 /LPF LAB URINALYSIS - AUTOMATED METHOD 05/06/2025 4:28 PM EDT [facility] Bacteria, Urine Negative Negative LAB URINALYSIS - AUTOMATED METHOD 05/06/2025 4:28 PM EDT [facility] Renal Tubular Cells Present Absent 05/06/2025 4:28 PM EDT [facility] Transitional Epithelial Cells Present Absent 05/06/2025 4:28 PM EDT [facility] Calcium Oxalate Crystals Present Absent 05/06/2025 4:28 PM EDT [facility] Urine Urine specimen obtained by clean catch procedure / Unknown Non-blood Collection / Unknown 05/06/2025 2:30 PM EDT 05/06/2025 2:30 PM EDT [facility] - 05/06/2025 4:28 PM EDT Performed by manual method us Angela Todd APRN LAB URINE ORDERABLES Veronica syed Result [facility] [address] [place] [address] * Protein, Random, Urine with Creatinine (05/06/2025 2:30 PM EDT) Protein, Urine 20 mg/dL 05/06/2025 4:34 PM EDT [facility] Creatinine, Urine 141 mg/dL 05/06/2025 4:34 PM EDT [facility] Protein/Creatin ine Ratio 0.1 mg/mg Creat 05/06/2025 4:34 PM EDT [facility] Urine Urine specimen obtained by clean catch procedure / Unknown Non-blood Collection / Unknown 05/06/2025 2:30 PM EDT 05/06/2025 2:30 PM EDT Angela Todd APRN LAB URINE ORDERABLES Veronica syed Result [facility] [address] [place] [address] * (ABNORMAL) CBC and Differential (05/06/2025 2:08 PM EDT) Pathologist [facility] WBC Count 9.44 3.70 - 10.30 10*3/uL LAB HEMATOLOGY METHOD 05/06/2025 3:39 PM EDT [facility] RBC Count 5.15 3.90 - 5.20 10*6/uL LAB HEMATOLOGY METHOD 05/06/2025 3:39 PM EDT [facility] HGB 14.4 11.2 - 15.7 g/dL LAB HEMATOLOGY METHOD 05/06/2025 3:39 PM EDT [facility] HCT 44.7 34.0 - 45.0 % LAB HEMATOLOGY METHOD 05/06/2025 3:39 PM EDT [facility] Platelet Count 337 155 - 369 10*3/uL LAB HEMATOLOGY METHOD 05/06/2025 3:39 PM EDT [facility] MCV 87 79 - 98 fL LAB HEMATOLOGY METHOD 05/06/2025 3:39 PM EDT [facility] MCH 28.0 26.0 - 32.0 pg LAB HEMATOLOGY METHOD 05/06/2025 3:39 PM EDT [facility] MCHC 32.2 30.7 - 35.5 g/dL LAB HEMATOLOGY METHOD 05/06/2025 3:39 PM EDT [facility] RDW 13.9 11.5 - 14.5 % LAB HEMATOLOGY METHOD 05/06/2025 3:39 PM EDT [facility] MPV 11.9 8.8 - 12.5 fL LAB HEMATOLOGY METHOD 05/06/2025 3:39 PM EDT [facility] nRBC 0.0 <=0.0 per 100 WBCs LAB HEMATOLOGY METHOD 05/06/2025 3:39 PM EDT [facility] Differential Type Automated LAB HEMATOLOGY METHOD 05/06/2025 3:39 PM EDT [facility] Neutrophils % 56 % LAB HEMATOLOGY METHOD 05/06/2025 3:39 PM EDT [facility] Lymphocytes % 32 % LAB HEMATOLOGY METHOD 05/06/2025 3:39 PM EDT [facility] Monocytes % 6 % LAB HEMATOLOGY METHOD 05/06/2025 3:39 PM EDT [facility] Eosinophils % 5 % LAB HEMATOLOGY METHOD 05/06/2025 3:39 PM EDT [facility] Basophils % 1 % LAB HEMATOLOGY METHOD 05/06/2025 3:39 PM EDT [facility] Immature Granulocytes % 0 % LAB HEMATOLOGY METHOD 05/06/2025 3:39 PM EDT [facility] Neutrophils Absolute 5.32 1.60 - 6.10 10*3/uL LAB HEMATOLOGY METHOD 05/06/2025 3:39 PM EDT [facility] Lymphocytes Absolute 3.00 1.20 - 3.90 10*3/uL LAB HEMATOLOGY METHOD 05/06/2025 3:39 PM EDT [facility] Monocytes Absolute 0.56 0.30 - 0.90 10*3/uL LAB HEMATOLOGY METHOD 05/06/2025 3:39 PM EDT [facility] Eosinophils Absolute 0.43 0.00 - 0.50 10*3/uL LAB HEMATOLOGY METHOD 05/06/2025 3:39 PM EDT [facility] Basophils Absolute 0.11(H) 0.00 - 0.10 10*3/uL LAB HEMATOLOGY METHOD 05/06/2025 3:39 PM EDT [facility] Immature Granulocytes Absolute 0.02 0.00 - 0.06 10*3/uL LAB HEMATOLOGY METHOD 05/06/2025 3:39 PM EDT [facility] Blood Venous blood specimen / Unknown Venipuncture / Unknown 05/06/2025 2:08 PM EDT 05/06/2025 2:09 PM EDT Narrative [facility] - 05/06/2025 3:39 PM EDT Therapeutic decision making should be based on absolute values, rather than percentages. us Angelabird Todd BUTTON TUFTER LAB BLOOD ORDERABLES Veronica l Result [facility] [address] [place] [address] * (ABNORMAL) Hepatic Function Panel (05/06/2025 2:08 PM EDT) Conjugated Bilirubin, Plasma <0.2 <=0.3 mg/dL 05/06/2025 3:35 PM EDT [facility] Alkaline Phosphatase, Plasma 107(H) 35 - 104 U/L 05/06/2025 3:35 PM EDT [facility] Total Bilirubin, Plasma 0.2 0.2 - 1.1 mg/dL 05/06/2025 3:35 PM EDT [facility] Albumin, Plasma 3.9 3.5 - 5.2 g/dL 05/06/2025 3:35 PM EDT [facility] Total Protein 7.2 6.3 - 7.9 g/dL 05/06/2025 3:35 PM EDT [facility] ALT, Plasma 43(H) 10 - 35 U/L 05/06/2025 3:35 PM EDT [facility] AST, Plasma 35 10 - 35 U/L 05/06/2025 3:35 PM EDT [facility] Blood Venous blood specimen / Unknown Venipuncture / Unknown 05/06/2025 2:08 PM EDT 05/06/2025 2:09 PM EDT us Angelabird Todd APRN LAB BLOOD ORDERABLES Veronica l Result [facility] [address] [place] [address] * Creatinine, Plasma (05/06/2025 2:08 PM EDT) Creatinine, Plasma 0.62 0.60 - 1.10 mg/dL 05/06/2025 3:35 PM EDT [facility] eGFRcr 106.0 mL/min/1.7 3m*2 05/06/2025 3:35 PM EDT [facility] Comment:Reported eGFRcr in m L/min/1.73m2 is based the CKD-EPI 2020 equation that does not use a race coefficient. Blood Venous blood specimen / Unknown Venipuncture / Unknown 05/06/2025 2:08 PM EDT 05/06/2025 2:09 PM EDT Angela Landaverdetingly BUTTON TUFTER LAB BLOOD ORDERABLES Veronica l Result [facility] [address] [place] [address] * C3 Complement (05/06/2025 2:08 PM EDT) C3 Complement 149 84 - 166 mg/dL 05/06/2025 3:30 PM EDT [facility] Blood Venous blood specimen / Unknown Venipuncture / Unknown 05/06/2025 2:08 PM EDT 05/06/2025 2:09 PM EDT Angela Syed Peyton BUTTON TUFTER LAB BLOOD ORDERABLES Veronica l Result [facility] [address] [place] [address] * C4 Complement (05/06/2025 2:08 PM EDT) C4 Complement 25 13 - 36 mg/dL 05/06/2025 3:30 PM EDT [facility] Blood Venous blood specimen / Unknown Venipuncture / Unknown 05/06/2025 2:08 PM EDT 05/06/2025 2:09 PM EDT Angela Todd APRN LAB BLOOD ORDERABLES Veronica l Result Performing Organization Address [facility]/ZIP Co de Phone Number [facility] [address] [place] [address] * C-Reactive Protein, Plasma (05/06/2025 2:08 PM EDT) [facility] CRP, Plasma <3.0 <=8.0 mg/L 05/06/2025 3:35 PM EDT [facility] Blood Venous blood specimen / Unknown Venipuncture / Unknown 05/06/2025 2:08 PM EDT 05/06/2025 2:09 PM EDT Narrative [facility] - 05/06/2025 3:35 PM EDT This CRP test is appropriate for assessment of infection, systemic inflammation and/or tissue injury. To assess cardiovascular disease risk order high sensitivity CRP (CRPH). Angela Todd APRN LAB BLOOD ORDERABLES Veronica l Result Performing Organization Address [facility] Co de Phone Number [facility] [address] [place] [address] * (ABNORMAL) Sedimentation Rate, Automated (05/06/2025 2:08 PM EDT) [facility] Sedimentation Rate 38(H) <30 mm/hr 2024 4:06 PM EDT [facility] Blood Venous blood specimen / Unknown Venipuncture / Unknown 05/06/2025 2:08 PM EDT 05/06/2025 2:09 PM EDT Angela Becerraly BUTTON TUFTER LAB BLOOD ORDERABLES Veronica l Result Performing Organization Address [facility]/[place] [address] * Double-Stranded DNA (dsDNA) Antibody, IgG by IFA (05/06/2025 2:08 PM EDT) [facility] Double-Strande d DNA (dsDNA) Ab IgG IFA <1:10 <1:10 05/08/2025 11:43 PM EDT [facility]ELEN[facility]) Blood Venous blood specimen / [...] recommendations for testing may be found at [email or web address]. Performed By: [employer] [address] [place] [address] Generator Assembler: Abundio Urias MD, PhD CLIA Number: [id number] Angela Todd APRN LAB BLOOD ORDERABLES Veronica syed Result [facility]ELENDE[facility]) [address] [place] [address] documented in this encounter Visit Diagnoses Diagnosis [...] documented as of this encounter Care Teams Forensic Manager Relationship Specialty Start Date End Date Valentin Daniel MD PCP - General 09/18/22 documented as of this encounter
[2025-05-18 08:39] VITALS: BP 115/72; PULSE 65; RESP 14; O2SAT 100; BMI 31.8
--- OUTSIDE RECORDS SUMMARY | 2025-05-18 08:40 | XMS_ITS | Encounter Summary ---
Author Organization [facility] Address [address] [place] [address] Care Team Providers Care Non Categorical Preschool Teacher Name Role Phone Valentin Daniel MD Primary Care Provider [phone] Reason for Referral * Consultation (Routine) - Authorized Specialty Diagnoses / Procedures Referred By Contac t Referred To Contact Neurology Diagnoses Left foot drop Mechanical problems with limbs Polyneuropathy Valentin Daniel MD [address] [place] [address] Phone: tel: fax: Referral ID Status Reason Start Date Expiration Date Visits Requested Visits Authorized [id number] Authorized Specialty Services Required 02/16/2025 08/18/2026 1 1 Encounter Details Date Type Department Care Team (Late st Contact Info) Description 02/16/2025 Community [facility] [address] [place] [address] Valentin Daniel MD [address] [place] [id number] Left foot drop (Primary Dx); Mechanical [...] Info) Description 10/30/2025 8:00 AM EST Consult [facility] [address], [address] [place] [address] Sim Tillman MD [address] [place] [address] 11/11/2025 12:50 PM EST Office Visit [facility] Medicine Specialties [address], [address] [place] [address] Angela Todd APRN [address] [place] [address] Scheduled Referrals Name Type Priority [...] documented as of this encounter Care Teams Non Categorical Preschool Teacher Relationship Specialty Start Date End Date Valentin Daniel MD PCP - General 09/18/22 documented as of this encounter
--- OUTSIDE RECORDS SUMMARY | 2025-05-18 08:40 | XMS_ITS | Encounter Summary ---
Author Organization [facility] Address [address] [place] [address] Care Team Providers Care Resume Writer Name Role Phone Valentin Daniel MD Primary Care Provider [phone] Encounter Details Date Type Department Care Team [...] Info) Description 10/30/2025 8:00 AM EST Consult [facility] [address], [address] [place] [address] Sim Tillman MD [address] [place] [address] 11/11/2025 12:50 PM EST Office Visit [facility] Medicine Specialties [address], [address] [place] [address] Angela Todd APRN [address] [place] [address] documented as of this encounter Visit Diagnoses [...] documented as of this encounter Care Teams Resume Writer Relationship Specialty Start Date End Date Valentin Daniel MD PCP - General 09/18/22 documented as of this encounter
--- OUTSIDE RECORDS SUMMARY | 2025-05-18 08:40 | XMS_ITS | Clinical Summary ---
[facility] Address [address] [place] [address] Care Team Providers Care Site Safety Representative Name Role Phone Provider, No Known Primary [...] 01/16/2022, 07/27/2021 Insurance COMM[employer]CIAL [employer] Care Teams Site Safety Representative Relationship Specialty Start Date End Date [place], [place] [address] PCP - General 08/09/23
--- OUTSIDE RECORDS SUMMARY | 2025-05-18 08:40 | XMS_ITS | Encounter Summary ---
Author Organization [facility] Address [address] [place] [address] Care Team Providers Care Area Operations Manager Name Role Phone Valentin Daniel MD Primary Care Provider [phone] Encounter Details Date Type Department Care Team (Late st Contact Info) Description 05/11/2025 Results Follow-Up [facility] Medicine Specialties [address], [address] [place] [address] Angela Todd, MANAGER ORANGE [address] [place] [address] Social History Tobacco Use Types [...] Description 10/30/2025 8:[address] [facility] [address], [address] [place] [address] Sim Tillman MD [address] [place] [address] 11/11/2025 12:50 PM EST Office Visit [facility] Medicine Specialties [address], [address] [place] [address] Angela Todd APRN [address] [place] [address] documented as of this encounter [...] documented as of this encounter Care Teams Area Operations Manager Relationship Specialty Start Date End Date Valentin Daniel MD PCP - General 09/18/22 documented as of this encounter
--- OUTSIDE RECORDS SUMMARY | 2025-05-18 08:40 | XMS_ITS | Encounter Summary ---
Author Organization [facility] Address [address] [place] [address] Care Team Providers Care Warehouse Order Puller Name Role Phone Valentin Daniel MD Primary Care Provider [phone] Reason for Visit * Reason Comments Med Refill Encounter Details Date Type Department Care Team (Late st Contact Info) Description 05/13/2025 Refill [facility] [address], [address] [place] [address] Angela Todd L, LAP RUNNER [address] [place] [address] Social History Tobacco Use Types [...] Info) Description 10/30/2025 8:00 AM EST Consult [facility] [address], [address] [place] [address] Sim Tillman MD [address] [place] [address] 11/11/2025 12:50 PM EST Office Visit [facility] Medicine Specialties [address], [address] [place] [address] Angela Todd APRN [address] [place] [address] documented as of this encounter [...] documented as of this encounter Care Teams Warehouse Order Puller Relationship Specialty Start Date End Date Valentin Daniel MD PCP - General 09/18/22 documented as of this encounter
--- OUTSIDE RECORDS SUMMARY | 2025-05-18 08:41 | XMS_ITS | Clinical Summary ---
Author Organization [facility] Address [address] [place] [address] Care Team Providers Care Fuel House Attendant Name Role Phone Valentin Daniel MD Primary Care Provider [phone] Allergies Active Allergy Reactions Criticality Noted Date [...] cream 01/21/20 21 Active ergocalciferol 1.25 MG (66216 UT) capsule TAKE ONE CAPSULE BY MOUTH EVERY WEEK DIRECTED 03/01/20 21 Active HYDROcodone-aceta minophen ([place]) 10-325 MG tablet TAKE ONE TABLET BY [...] MG tablet 01/28/20 24 Active nystatin (Mycostatin) 951807 UNIT/GM powder 02/01/20 24 Active omeprazole (PriLOSEC) [...] Type Department Care Team Description 05/13/2025 Refill [facility] [address], [address] [place] [address] Angela Todd APRN 05/11/2025 Results Follow-Up [facility] [address], [address] [place] [address] Angela Todd APRN 05/06/2025 1:20 PM EDT Office Visit [facility] [address], [address] [place] [address] Angela Todd, COOLER SUPERVISOR Positive RENETTA (antinuclear antibody) (Primary Dx); High risk medication use; Long-term use of hydroxychloroquine 05/06/2025 Travel 02/16/2025 [facility] [address] [place] [address] Valentin Daniel MD Left foot drop (Primary [...] Info) Description 10/30/2025 8:00 AM EST Consult [facility] [address], [address] [place] [id number] Sim Tillman MD [address] [place] [address] 11/11/2025 12:50 PM EST Office Visit [facility] Medicine Specialties [address], [address] [place] [address] Angela Todd, COOLER SUPERVISOR [address] [place] [address] Health Maintenance Due Date Last [...] (2 - Td or Tdap) 06/20/2021 06/20/2011 [id number] Vaccine ( season) 2024 07/14/2021, 11/17/2020, 10/28/2020 [...] APRN LAB URINE ORDERABLES Veronica syed Result [facility] [address] [place] [address] * Protein, Random, Urine with Creatinine (05/06/2025 2:30 PM EDT) Pathologist [facility] Protein, Urine 20 mg/dL 05/06/2025 4:34 PM EDT [facility] Creatinine, Urine 141 mg/dL 05/06/2025 4:34 PM EDT [facility] Protein/Creatin ine Ratio 0.1 mg/mg Creat 05/06/2025 4:34 PM EDT [facility] Urine Urine specimen obtained by clean catch procedure / Unknown Non-blood Collection / Unknown 05/06/2025 2:30 PM EDT 05/06/2025 2:30 PM EDT us Angela Todd APRN LAB URINE ORDERABLES Veronica syed Result [facility] [address] [place] [address] * (ABNORMAL) Urinalysis with reflex microscopic (Culture NOT Included) (05/06/2025 2:30 PM EDT) Color, Urine Dark Yellow LAB URINALYSIS - AUTOMATED METHOD 05/06/2025 4:28 PM EDT [facility] Clarity, Urine Cloudy LAB URINALYSIS - AUTOMATED METHOD 05/06/2025 4:28 PM EDT [facility] Spec [place], Urine 1.026 1.005 - 1.030 LAB URINALYSIS - AUTOMATED METHOD 05/06/2025 4:28 PM EDT [facility] pH, Urine 5.5 5.0 - 8.0 LAB URINALYSIS - AUTOMATED METHOD 05/06/2025 4:28 PM EDT [facility] Protein, Urine 30(A) Negative mg/dL LAB URINALYSIS - AUTOMATED METHOD 05/06/2025 4:28 PM EDT [facility] Glucose, Urine >=1000(A) Negative mg/dL LAB URINALYSIS - AUTOMATED METHOD 05/06/2025 4:28 PM EDT [facility] Ketones, Urine Trace(A) Negative mg/dL LAB URINALYSIS - AUTOMATED METHOD 05/06/2025 4:28 PM EDT [facility] Blood, Urine Large(A) Negative LAB URINALYSIS - AUTOMATED METHOD 05/06/2025 4:28 PM EDT [facility] Bilirubin, Urine Small(A) Negative LAB URINALYSIS - AUTOMATED METHOD 05/06/2025 4:28 PM EDT [facility] Urobilinogen, Urine 0.2 0.2 to 1.0 mg/dL LAB URINALYSIS - AUTOMATED METHOD 05/06/2025 4:28 PM EDT [facility] Leukocytes, Urine Negative Negative LAB URINALYSIS - AUTOMATED METHOD 05/06/2025 4:28 PM EDT [facility] Nitrite, Urine Negative Negative LAB URINALYSIS - AUTOMATED METHOD 05/06/2025 4:28 PM EDT [facility] RBC, Urine >50(A) 0 to 3 /HPF LAB URINALYSIS - AUTOMATED METHOD 05/06/2025 4:28 PM EDT [facility] WBC, Urine 6 - 10(A) 0 to 5 /HPF LAB URINALYSIS - AUTOMATED METHOD 05/06/2025 4:28 PM EDT [facility] Squamous Epithelial Cells 0 - 2 0 to 5 /HPF LAB URINALYSIS - AUTOMATED METHOD 05/06/2025 4:28 PM EDT [facility] Hyaline Casts 0 - 2 0 to 5 /LPF LAB URINALYSIS - AUTOMATED METHOD 05/06/2025 4:28 PM EDT [facility] Bacteria, Urine Negative Negative LAB URINALYSIS - AUTOMATED METHOD 05/06/2025 4:28 PM EDT [facility] Renal Tubular Cells Present Absent 05/06/2025 4:28 PM EDT [facility] Transitional Epithelial Cells Present Absent 05/06/2025 4:28 PM EDT [facility] Calcium Oxalate Crystals Present Absent 05/06/2025 4:28 PM EDT [facility] Urine Urine specimen obtained by clean catch procedure / Unknown Non-blood Collection / Unknown 05/06/2025 2:30 PM EDT 05/06/2025 2:30 PM EDT Narrative [facility] - 05/06/2025 4:28 PM EDT Performed by manual method us Angela Todd APRN LAB URINE ORDERABLES Veronica syed Result [facility] [address] [place] [address] * Double-Stranded DNA (dsDNA) Antibody, IgG by IFA (05/06/2025 2:08 PM EDT) Pathologist [facility] Double-Strande d DNA (dsDNA) Ab IgG IFA <1:10 <1:10 05/08/2025 11:43 PM EDT [facility]) Blood Venous blood specimen / Unknown Venipuncture / Unknown 05/06/2025 2:08 PM EDT 05/06/2025 2:09 PM EDT Narrative [facility]) - 05/08/2025 11:43 PM EDT INTERPRETIVE [...] recommendations for testing may be found at [email or web address]. Performed By: [employer] [address] [place] [address] Feeder Switchboard Operator: Abundio Urias MD, PhD CLIA Number: [id number] Angela Todd APRN LAB BLOOD ORDERABLES Veronica syed Result [facility]) [address] [place] [address] * Creatinine, Plasma (05/06/2025 2:08 PM EDT) Pathologist [facility] Creatinine, Plasma 0.62 0.60 - 1.10 mg/dL 05/06/2025 3:35 PM EDT [facility] eGFRcr 106.0 mL/min/1.7 3m*2 05/06/2025 3:35 PM EDT [facility] Comment:Reported eGFRcr in m L/min/1.73m2 is based the CKD-EPI 2020 equation that does not use a race coefficient. Blood Venous blood specimen / Unknown Venipuncture / Unknown 05/06/2025 2:08 PM EDT 05/06/2025 2:09 PM EDT Angela Todd APRN LAB BLOOD ORDERABLES Veronica l Result Performing Organization Address City/[facility] Co de Phone Number [facility] [address] [place] [address] * (ABNORMAL) Sedimentation Rate, Automated (05/06/2025 2:08 PM EDT) Sedimentation Rate 38(H) <30 mm/hr 2024 4:06 PM EDT [facility] Blood Venous blood specimen / Unknown Venipuncture / Unknown 05/06/2025 2:08 PM EDT 05/06/2025 2:09 PM EDT Angela Todd APRN LAB BLOOD ORDERABLES Veronica l Result Performing Organization Address [facility] Co de Phone Number [facility] [address] [place] [address] * (ABNORMAL) CBC and Differential (05/06/2025 2:08 PM EDT) WBC Count 9.44 3.70 - 10.30 10*3/uL LAB HEMATOLOGY METHOD 05/06/2025 3:39 PM EDT [facility] RBC Count 5.15 3.90 - 5.20 10*6/uL LAB HEMATOLOGY METHOD 05/06/2025 3:39 PM EDT [facility] HGB 14.4 11.2 - 15.7 g/dL LAB HEMATOLOGY METHOD 05/06/2025 3:39 PM EDT [facility] HCT 44.7 34.0 - 45.0 % LAB HEMATOLOGY METHOD 05/06/2025 3:39 PM EDT [facility] Platelet Count 337 155 - 369 10*3/uL LAB HEMATOLOGY METHOD 05/06/2025 3:39 PM EDT [facility] MCV 87 79 - 98 fL LAB HEMATOLOGY METHOD 05/06/2025 3:39 PM EDT [facility] MCH 28.0 26.0 - 32.0 pg LAB HEMATOLOGY METHOD 05/06/2025 3:39 PM EDT [facility] MCHC 32.2 30.7 - 35.5 g/dL LAB HEMATOLOGY METHOD 05/06/2025 3:39 PM EDT [facility] RDW 13.9 11.5 - 14.5 % LAB HEMATOLOGY METHOD 05/06/2025 3:39 PM EDT [facility] MPV 11.9 8.8 - 12.5 fL LAB HEMATOLOGY METHOD 05/06/2025 3:39 PM EDT [facility] nRBC 0.0 <=0.0 per 100 WBCs LAB HEMATOLOGY METHOD 05/06/2025 3:39 PM EDT [facility] Differential Type Automated LAB HEMATOLOGY METHOD 05/06/2025 3:39 PM EDT [facility] Neutrophils % 56 % LAB HEMATOLOGY METHOD 05/06/2025 3:39 PM EDT [facility] Lymphocytes % 32 % LAB HEMATOLOGY METHOD 05/06/2025 3:39 PM EDT [facility] Monocytes % 6 % LAB HEMATOLOGY METHOD 05/06/2025 3:39 PM EDT [facility] Eosinophils % 5 % LAB HEMATOLOGY METHOD 05/06/2025 3:39 PM EDT [facility] Basophils % 1 % LAB HEMATOLOGY METHOD 05/06/2025 3:39 PM EDT [facility] Immature Granulocytes % 0 % LAB HEMATOLOGY METHOD 05/06/2025 3:39 PM EDT [facility] Neutrophils Absolute 5.32 1.60 - 6.10 10*3/uL LAB HEMATOLOGY METHOD 05/06/2025 3:39 PM EDT [facility] Lymphocytes Absolute 3.00 1.20 - 3.90 10*3/uL LAB HEMATOLOGY METHOD 05/06/2025 3:39 PM EDT [facility] Monocytes Absolute 0.56 0.30 - 0.90 10*3/uL LAB HEMATOLOGY METHOD 05/06/2025 3:39 PM EDT [facility] Eosinophils Absolute 0.43 0.00 - 0.50 10*3/uL LAB HEMATOLOGY METHOD 05/06/2025 3:39 PM EDT [facility] Basophils Absolute 0.11(H) 0.00 - 0.10 10*3/uL LAB HEMATOLOGY METHOD 05/06/2025 3:39 PM EDT [facility] Immature Granulocytes Absolute 0.02 0.00 - 0.06 10*3/uL LAB HEMATOLOGY METHOD 05/06/2025 3:39 PM EDT [facility] Blood Venous blood specimen / Unknown Venipuncture / Unknown 05/06/2025 2:08 PM EDT 05/06/2025 2:09 PM EDT Narrative [facility] - 05/06/2025 3:39 PM EDT Therapeutic decision making should be based on absolute values, rather than percentages. Angela Todd APRN LAB BLOOD ORDERABLES Veronica l Result Performing Organization Address City/[facility]/ZIP Co de Phone Number [facility] [address] [place] [address] * C3 Complement (05/06/2025 2:08 PM EDT) C3 Complement 149 84 - 166 mg/dL 05/06/2025 3:30 PM EDT [facility] Blood Venous blood specimen / Unknown Venipuncture / Unknown 05/06/2025 2:08 PM EDT 05/06/2025 2:09 PM EDT us Angela Todd APRN LAB BLOOD ORDERABLES Veronica l Result [facility] [address] [place] [address] * C4 Complement (05/06/2025 2:08 PM EDT) C4 Complement 25 13 - 36 mg/dL 05/06/2025 3:30 PM EDT [facility] Blood Venous blood specimen / Unknown Venipuncture / Unknown 05/06/2025 2:08 PM EDT 05/06/2025 2:09 PM EDT Angela Todd APRN LAB BLOOD ORDERABLES Veronica l Result [facility] [address] [place] [address] * C-Reactive Protein, Plasma (05/06/2025 2:08 PM EDT) CRP, Plasma <3.0 <=8.0 mg/L 05/06/2025 3:35 PM EDT [facility] Blood Venous blood specimen / Unknown Venipuncture / Unknown 05/06/2025 2:08 PM EDT 05/06/2025 2:09 PM EDT Narrative [facility] - 05/06/2025 3:35 PM EDT This CRP test is appropriate for assessment of infection, systemic inflammation and/or tissue injury. To assess cardiovascular disease risk order high sensitivity CRP (CRPH). Angela Todd APRN LAB BLOOD ORDERABLES Veronica syed Result Performing Organization Address [facility] Co de Phone Number [facility] [address] [place] [address] * (ABNORMAL) Hepatic Function Panel (05/06/2025 2:08 PM EDT) Pathologist [facility] Conjugated Bilirubin, Plasma <0.2 <=0.3 mg/dL 05/06/2025 3:35 PM EDT [facility] Alkaline Phosphatase, Plasma 107(H) 35 - 104 U/L 05/06/2025 3:35 PM EDT [facility] Total Bilirubin, Plasma 0.2 0.2 - 1.1 mg/dL 05/06/2025 3:35 PM EDT [facility] Albumin, Plasma 3.9 3.5 - 5.2 g/dL 05/06/2025 3:35 PM EDT [facility] Total Protein 7.2 6.3 - 7.9 g/dL 05/06/2025 3:35 PM EDT [facility] ALT, Plasma 43(H) 10 - 35 U/L 05/06/2025 3:35 PM EDT [facility] AST, Plasma 35 10 - 35 U/L 05/06/2025 3:35 PM EDT [facility] Blood Venous blood specimen / Unknown Venipuncture / Unknown 05/06/2025 2:08 PM EDT 05/06/2025 2:09 PM EDT us Angela Todd COOLER SUPERVISOR LAB BLOOD ORDERABLES Veronica syed Result [facility] [address] [place] [address] from Last 3 Months Additional Health Concerns Infection Onset Date Last 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
--- OUTSIDE RECORDS SUMMARY | 2025-05-18 08:41 | XMS_ITS | Encounter Summary ---
Author Organization [facility] Address [address] [place] [address] Care Team Providers Care Bottom Stainer Name Role Phone Valentin Daniel MD Primary Care Provider [phone] Encounter Details Date Type Department Care Team (Latest Contact Info) Description 02/05/2025 [facility] [address] [place] [address] Valentin Daniel MD [address] [place] [address] Polyneuropathy (Primary Dx); Foot drop, left foot [...] Consult [place] [facility] [address], 1st [place] [address] Sim Tillman MD [address] [place] [address] 11/11/2025 12:50 PM EST Office Visit [facility] [address] [place] [address] Angela Todd, TANKER DRIVER [address] [facility] [address] [place] [address] documented as of this encounter [...] documented as of this encounter Care Teams Bottom Stainer Relationship Specialty Start Date End Date Valentin Daniel MD PCP - General 09/18/22 documented as of this encounter
--- NOTE | 2025-05-18 09:01 | EXP.PAIN.SOA ---
[facility] Disclaimer: The information contained in this section may have been updated after the patient was seen, as this information can be updated by other users. Medical History Upper back pain Epidermal inclusion cyst vulva Chronic anticoagulation Calculus of ureterovesical junction (UVJ) Facial paresthesia Morbid obesity with body mass index (BMI) of 40.0 to 49.9 TIA (transient ischemic attack) Acute CVA (cerebrovascular accident) Left leg DVT Vasomotor symptoms due to menopause Stroke Lupus Asthma History of gastroesophageal reflux (GERD) Hypertension Dizziness Edema History of TIA (transient ischemic attack) History of DVT (deep vein thrombosis) Surgical History H/O gastric bypass History of hysterectomy History of section History of appendectomy History of cholecystectomy Family History Other Coronary artery disease Diabetes Social History Smoking Status: Never smoker second hand exposure: No alcohol intake: never substance use type: denies use current occupational status: other Travel in the last 8 weeks?: None household members: spouse housing: house caffeine: Yes PM Subjective & Objective Subjective Subjective:: Patient is a pleasant 55-year-old female who presents today for 1 month follow-up and medication refill. Today she rates her pain at 3 out of 10. Patient denies any new falls or injuries. She does state that she is overall doing much better from our last visit and that the pain related to her fracture of her left foot is easing up. She does state that she has a follow-up with orthopedics coming up. Patient is currently managed with [place] 10 mg 4 times a day, pregabalin 150 mg 3 times a day, baclofen 10 mg 4 times a day and compounded cream. She denies any side effects. She does state that she has plenty of the baclofen and does not need refills on this. Her Loi has been reviewed and is appropriate. Review of Systems: General: No recent weight changes, no fever, no sleep disturbances Respiratory: No cough, no shortness of air, no recurring pulmonary infections Cardiovascular/peripheral vascular: No chest pain, no palpitations, no edema, no shortness of breath Gastrointestinal: No new onset incontinence, normal bowel movements reported Genitourinary: No new onset incontinence Musculoskeletal: Low back pain, left foot pain Psychiatric: [Normal mood/affect] Neurological: [Denies weakness in extremities], [denies balance issues] Pain at rest (0-10 scale): 3 Objective Objective:: Physical Exam: General: Alert and oriented x3, no acute distress, pleasant and cooperative Lungs: Respirations even and unlabored, symmetrical chest expansion Eyes: PERRL Musculoskeletal: Flexion and extension of lumbar [spine] somewhat guarded secondary to pain, [antalgic gait noted] Neurological: Speech clear, no gross sensory deficit Has patient had previous pain injection?: No Conservative treatment options previously tried: Home exercise plan Length of treatment: Longer than 12 weeks Meds Home Medications and Allergies Home Medications ?Medication ?Instructions ?Recorded ?Confirmed ?Type cyanocobalamin (vitamin B-12) 1,000 mcg SQ WEEKLY 01/01/24 05/18/25 History 1,000 mcg/mL injection solution hydroxychloroquine 200 mg tablet 200 mg PO BID 06/30/24 05/18/25 History ondansetron 4 mg disintegrating 4 mg PO BID PRN nausea and vomiting 10/16/24 05/18/25 History tablet albuterol sulfate 90 mcg/actuation 2 puff inhalation QID PRN 11/10/24 05/18/25 Rx aerosol inhaler shortness of breath or wheezing #8.5 grams dapagliflozin propanediol 10 mg 10 mg PO DAILY #90 tabs 11/10/24 05/18/25 Rx tablet (Farxiga) alendronate 10 mg tablet 10 mg PO DAILY 90 days #90 tabs 11/26/24 05/18/25 Rx warfarin 5 mg tablet 5 mg PO SUTUTHSA 12/22/24 05/18/25 History desvenlafaxine succinate 50 mg 50 mg PO DAILY #90 tabs 12/29/24 05/18/25 Rx tablet,extended release 24 hr (Pristiq) estradiol 0.01% (0.1 mg/gram) 1 appful vaginal DAILY 30 days 01/26/25 05/18/25 Rx vaginal cream (Estrace) #42.5 grams fezolinetant 45 mg tablet (Veozah) 45 mg PO DAILY #30 tabs 02/02/25 05/18/25 Rx furosemide 20 mg tablet 20 mg PO DAILY 02/16/25 05/18/25 History omeprazole 20 mg capsule,delayed 20 mg PO DAILY 02/16/25 05/18/25 History release methylprednisolone 4 mg tablets in See Rx Instructions PO PER PKG DIR 03/13/25 05/18/25 Rx a dose pack #21 tabs pregabalin 100 mg capsule 100 mg PO QID #120 caps 03/16/25 05/18/25 Rx promethazine 25 mg tablet 25 mg PO Q6H PRN nausea and 03/30/25 05/18/25 Rx vomiting #60 tabs oxycodone 5 mg tablet 5 mg PO Q8H PRN pain #10 tabs 04/05/25 05/18/25 Rx baclofen 10 mg tablet 10 mg PO TID #90 tabs 04/15/25 05/18/25 Rx hydrocodone 10 mg-acetaminophen 1 tab PO 5XDAY #150 tabs 04/15/25 05/18/25 Rx 325 mg tablet pregabalin 150 mg capsule (Lyrica) 150 mg PO QID #120 caps 04/15/25 05/18/25 Rx trazodone 100 mg tablet 100 mg PO DAILY PRN sleep #90 tabs 04/20/25 05/18/25 Rx aspirin 81 mg tablet,delayed 162 mg PO BID 05/07/25 05/18/25 History release New Prescriptions to Start Prescriptions: Allergies Allergy/AdvReac Type Severity Reaction Status Date / Time gum mastic (From MASTISOL Allergy Unknown Unknown Verified 05/07/25 14:30 ADHESIVE) allergy reaction measles, mumps, and rubella Allergy Unknown Unknown Verified 05/07/25 14:30 vaccine (MEASLES, MUMPS, AND allergy RUBELLA VACCINE) reaction methyl salicylate (From Allergy Unknown Unknown Verified 05/07/25 14:30 MASTISOL ADHESIVE) allergy reaction Penicillins (PENICILLINS) Allergy Unknown Hives Verified 05/07/25 14:30 storax (From MASTISOL Allergy Unknown Unknown Verified 05/07/25 14:30 ADHESIVE) allergy reaction Sulfa (Sulfonamide Allergy Unknown Hives Verified 05/07/25 14:30 Antibiotics) (SULFA (SULFONAMIDE ANTIBIOTICS)) sumatriptan (From IMITREX) Allergy Unknown Anaphylaxis Verified 07/24/25 14:30 sulfamethoxazole (From Allergy Unknown Verified 05/07/25 14:30 Bactrim) allergy reaction trimethoprim (From Bactrim) Allergy Unknown Verified 05/07/25 14:30 allergy reaction adhesive AdvReac Mild Rash Verified 05/07/25 14:30 Assessment and Plan *Assessment and plan (1) Ankle fracture: Status: Acute Category: Medical Code(s): S82.899A - Other fracture of unspecified lower leg, initial encounter for closed fracture (2) Lumbar radiculopathy: Status: Chronic Category: Medical Code(s): M54.16 - Radiculopathy, lumbar region (3) Degenerative disc disease: Status: Chronic Qualifiers: Spinal region: lumbar Qualified Code(s): M51.36 - Other intervertebral disc degeneration, lumbar region Category: Medical Plan I will refill the patient's [place] and pregabalin and provide a 1 month supply of this medication. Patient will return to clinic in 1 month. Risks and benefits of the medication have been explained in detail to the patient. The patient does understand the risk of dependence on the medication when given over a prolonged period. Patient has been advised of risks of oversedation with the prescribed medication. Narcan has been offered to the paitent in the event of oversedation. Patient has been advised that a family member should also be educated regarding administration of Narcan. The patient has been advised to consult with his/her primary care provider and pharmacist regarding drug-drug interaction of medications currently prescribed. Patient has been prescribed a controlled substance after being counseled on the medication, medication safety, and possible side effects. Opioid contract was reviewed and signed by the patient, and that they have agreed to all of the terms set forth by our compliance program. A UDS is needed to verify patient's compliance with our office pain contract. This is ordered based off specific treatments related to chronic pain with the potential to abuse certain medications. Patient has been instructed to contact the clinic with any concerns before the next appointment. Dr. Venegas has reviewed this note and agrees with this plan of care. This note was dictated using voice recognition software and make contain errors or omissions.
[2025-05-18 09:30] LABS: Hematocrit 42.5 % (37.0-47.0); Hemoglobin 13.7 g/dL (12.2-16.2); Immature Granulocytes % 0.3 %; Mean Corpuscular HGB Conc 32.2 g/dL (31.8-35.4); Mean Corpuscular Hemoglobin 27.8 pg (27.0-31.2); Mean Corpuscular Volume 86.4 fl (81-99); Nucleated Red Blood Cells % 0 %; Platelet Count 335 K/mm3 (142-424); Red Blood Count 4.92 M/mm3 (4.20-5.40); Red Cell Distribution Width-SD 44.3 fL; White Blood Count 7.1 K/mm3 (4.8-10.8)
[2025-05-18 09:42] LABS: Albumin Level 3.2 g/dl (3.5-5.0); Chloride 102 mmol/L (98-107); Sodium 136 mmol/L (136-145)
[2025-05-18 09:43] LABS: Potassium 4.0 mmoL/L (3.5-5.1)
[2025-05-18 09:45] LABS: Alanine Aminotransferase 31 U/L (12-78); Albumin/Globulin Ratio 0.9 (1.1-1.8); Alkaline Phosphatase 102 U/L (38-126); Anion Gap 7.0 mEq/L (5-15); Aspartate Amino Transferase 33 U/L (14-36); Bilirubin,Total 0.2 mg/dl (0.2-1.3); Blood Urea Nitrogen 9 mg/dl (7-17); Calcium 9.0 mg/dl (8.4-10.2); Carbon Dioxide 31 mmol/L (22.0-30.0); Creatinine Clearance Estimated 166 mL/min (50-200); Creatinine,Serum 0.50 mg/dl (0.52-1.04); Estimated Glomerular Filt Rate 129 ml/min (>60); GFR (African American) 156 ML/MIN (>60); Globulin 3.5 g/dL (1.3-3.2); Glucose 98 mg/dl (74-100); Iron 81 ug/dL (37-170); Total Protein,Serum 6.7 g/dl (6.3-8.2)
[2025-05-18 09:55] LABS: Total Iron Binding Capacity 388 ug/dL (265-497)
[2025-05-18 10:22] LABS: Ferritin 10.3 ng/ml (11.1-264)
[2025-05-18 14:26] LABS: 25-OH Vitamin D, Total 57.3 ng/mL (30-100)
[2025-05-18 14:58] LABS: Vitamin B12 > 1000 pg/mL (239-931)
== END 2025-05-18 23:59 | disposition home or self-care (01) ==
PROVIDERS: PCP Family Medicine; Visit Provider Nurse Practitioner Family
DX: M51.16 Intervertebral disc disorders with radiculopathy, lumbar region (principal); S82.892A Other fracture of left lower leg, initial encounter for closed fracture; X58.XXXA Exposure to other specified factors, initial encounter; Y93.9 Activity, unspecified; Y92.9 Unspecified place or not applicable; Z79.891 Long term (current) use of opiate analgesic; Z79.899 Other long term (current) drug therapy
CPT/HCPCS: 36415; 80053; 82306; 82607; 82728; 83540; 83550; 83970; 84425; 85025; 99212; G0463

== ENCOUNTER 2025-05-26 10:53 | Outpatient (CLI) | payer OTHER, SELFPAY ==
--- OUTSIDE RECORDS SUMMARY | 2025-05-06 13:20 | XMS_ITS | Encounter Summary ---
Author Organization [facility] Address [address] [place] [address] Care Team Providers Care Insurance Administrator Name Role Phone Valentin Daniel MD Primary Care Provider [phone] Reason for Visit * Reason Comments Follow-up Mental status, decre ased Encounter Details Date Type Department Care Team (Latest Contact Info) Description 05/06/2025 1:20 PM EDT Office Visit [facility] [address] [place] [address] Angela Todd, STREET LIGHT CLEANER [address] [place] [address] Positive RENETTA (antinuclear antibody) (Primary [...] * Progress Notes - Peyton, Angela Josie, STREET LIGHT CLEANER - 05/06/2025 1:20 PM EDT Kassi Claudio [...] - SSA. - SSB. - Daniels. 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 10 year history of Raynaud's. Describes blanching. No digit ulcerations. History of multiple blood clots. + LAC x 2. - B2 glycoprotein. - cardiolipin. Rash on chest that is now resolved with use of HCQ. 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 Med hx: Hydroxychloriquine (2018-current) Interim history: Last [...] Pt still struggles with fibromyalgia. Currently takes Lakeside and Lyrica. Denies any blood clots. Continues on hydroxychloriquine. Pt has upcoming eye exam in June. She has had several UTI's and kidney stones since the last visit. She follows with pain management for CBP. She endorses morning stiffness, around 30 minutes. She had XR completed at [facility]. She is following with Dr. Billingsley, orthopedics at [facility]. She denies any SOB, CP Review [...] allergic reaction 07/16/2024 Acute CVA (cerebrovascular accident) ([facility]) 07/16/2024 Acute hypokalemia 07/16/2024 This has been repleted and was a postsurgical issue. 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 Antiphospholipid antibody syndrome ([facility]/HCC) 10/28/2018 Anxiety 08/18/2015 Atypical angina 07/16/2024 Back pain 06/25/2013 Brown's esophagus without dysplasia Brown's esophagus without dysplasia Bronchitis 07/16/2024 CAD (coronary artery disease) 07/16/2024 Calcaneal spur, left 07/16/2024 Calculus of ureterovesical junction (UVJ) 07/16/2024 Callus of foot 07/16/2024 Cardiac murmur 07/16/2024 CHF (congestive heart failure) ([facility]) 07/16/2024 Close exposure to COVID-19 virus 07/16/2024 Conversions - Other Depression Conversions - Other Hiatal Hernia Conversions - Other Leiomyoma Of The Uterus Conversions - Other Lyme Disease Cough 07/16/2024 COVID-19 07/16/2024 Diastolic dysfunction 07/16/2024 Dizziness 07/16/2024 Dropfoot 07/16/2024 DVT (deep venous thrombosis) ([facility]) 04/04/2016 Dysuria 07/16/2024 Edema 07/16/2024 Enterocolitis due to Clostridium difficile, not specified as recurrent Clostridium difficile diarrhea Environmental and seasonal allergies 07/16/2024 Essential hypertension 11/03/2015 Facial paresthesia 07/16/2024 Fall 07/16/2024 Falling 07/16/2024 Fibromyalgia 11/08/2019 Ganglion, unspecified site Ganglion Gastro-esophageal reflux disease without esophagitis 06/25/2013 GERD with esophagitis 07/16/2024 Heart failure Hyperparathyroidism ([facility]) 07/16/2024 Hypertensive heart disease 07/16/2024 [...] Left ankle instability 07/16/2024 Left leg DVT ([facility]) 07/16/2024 Left leg weakness 07/16/2024 Lesion of nose 07/16/2024 Lumbar nerve root impingement 06/30/2014 Lumbosacral neuritis 04/28/2015 Menopausal and female climacteric states Menopausal syndrome (hot flashes) Methicillin resistant Staphylococcus aureus infection, unspecified site MRSA (methicillin resistant Staphylococcus aureus) Migraine 07/16/2024 Morbid obesity with body mass index (BMI) of 40.0 to 49.9 ([facility]) 07/16/2024 Myalgia 06/27/2018 Other intervertebral [...] Procedure Laterality Date APPENDECTOMY N/A Appendectomy from [facility] BACK SURGERY N/A Back Surgery from [facility] CARPAL TUNNEL RELEASE N/A Neuroplasty Decompression Median Nerve At Carpal Tunnel from [facility] SECTION, LOW TRANSVERSE N/A Section from [facility] CHOLECYSTECTOMY N/A Cholecystectomy Laparoscopic from [facility] GASTRIC BYPASS HYSTERECTOMY N/A Hysterectomy from [facility] LAPAROSCOPIC DIANELYS FUNDOPLICATION N/A Esophagogastric Fundoplasty Dianelys Fundoplication from [facility] OTHER SURGICAL HISTORY N/A Knee Arthroscopy from [facility] Social History Socioeconomic History Marital status: Spouse [...] Not on file Social History Narrative Working [employer] Marital History - Currently Social Drivers of Health Financial Resource Strain: Not on file Food Insecurity: Not on file Transportation Needs: Not on file Physical Activity: Not on file Stress: Not on file Social Connections: Unknown (07/23/2023) Received from [facility] Family and Community Support Help with Day-to-Day Activities: Not on file Lonely or Isolated: Not on file Intimate Partner Violence: Unknown (07/23/2023) Received from [facility] Abuse Screen Unsafe at Home or Work/School: Not on file Feels Threatened by Someone?: Not on file Does Anyone Keep You from Contacting Others or Doint Things Outside the Home?: Not on file Physical Sign of Abuse Present: Not on file Housing Stability: Unknown (07/23/2023) Received from [facility] Housing Stability Current Living Arrangements: Not [...] Take 1 tablet by mouth daily. HYDROcodone-acetaminophen (Lakeside) 10-325 MG tablet TAKE ONE TABLET BY [...] (Temovate) 0.05 % cream ergocalciferol 1.25 MG (04338 UT) capsule TAKE ONE CAPSULE BY MOUTH EVERY WEEK DIRECTED ferrous sulfate 325 (65 Fe) MG tablet PLEASE SEE ATTACHED FOR DETAILED DIRECTIONS (Patient not taking: Reported on 07/16/2024) furosemide (Lasix) 20 MG tablet if needed. nystatin (Mycostatin) 012739 UNIT/GM powder omeprazole (PriLOSEC) [address] [...] consider testing for antibodies against cardiolipin and [id number] I. Final aPTT Lupus Anticoagulant Sensitive 07/16/2024 [...] Glycoprotein IgM Inter* 07/16/2024 Negative Negative Final [id number] 1, IgA Antibody 07/16/2024 <10 <=20 ALDEN [...] by another provider. Currently taking Lyrica and Lakeside - Continue with pain management. 4. 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 High risk medication use -routine labs today -pt is due for eye exam in June RUST 6 months The patient was counseled about [...] Info) Description 10/30/2025 8:00 AM EST Consult [facility] [address] [place] [address] Sim Tillman MD [address] [place] [address] 11/11/2025 12:50 PM EST Office Visit [facility] Medicine Specialties [address] [place] [address] Angela Todd, ANGELITO [address] [place] [address] documented as of this encounter Results * (ABNORMAL) Urinalysis with reflex microscopic (Culture NOT Included) (05/06/2025 2:30 PM EDT) Color, Urine Dark Yellow LAB URINALYSIS - AUTOMATED METHOD 05/06/2025 4:28 PM EDT [facility] Clarity, Urine Cloudy LAB URINALYSIS - AUTOMATED METHOD 05/06/2025 4:28 PM EDT [facility] Spec [place], Urine 1.026 1.005 - 1.030 LAB URINALYSIS - AUTOMATED METHOD 05/06/2025 4:28 PM EDT [facility] pH, Urine 5.5 5.0 - 8.0 LAB URINALYSIS - AUTOMATED METHOD 05/06/2025 4:28 PM EDT [facility] Protein, Urine 30(A) Negative mg/dL LAB URINALYSIS - AUTOMATED METHOD 05/06/2025 4:28 PM EDT [facility] Glucose, Urine >=1000(A) Negative mg/dL LAB URINALYSIS - AUTOMATED METHOD 05/06/2025 4:28 PM EDT [facility] Ketones, Urine Trace(A) Negative mg/dL LAB URINALYSIS - AUTOMATED METHOD 05/06/2025 4:28 PM EDT [facility] Blood, Urine Large(A) Negative LAB URINALYSIS - AUTOMATED METHOD 05/06/2025 4:28 PM EDT [facility] Bilirubin, Urine Small(A) Negative LAB URINALYSIS - AUTOMATED METHOD 05/06/2025 4:28 PM EDT [facility] Urobilinogen, Urine 0.2 0.2 to 1.0 mg/dL LAB URINALYSIS - AUTOMATED METHOD 05/06/2025 4:28 PM EDT [facility] Leukocytes, Urine Negative Negative LAB URINALYSIS - AUTOMATED METHOD 05/06/2025 4:28 PM EDT [facility] Nitrite, Urine Negative Negative LAB URINALYSIS - AUTOMATED METHOD 05/06/2025 4:28 PM EDT [facility] RBC, Urine >50(A) 0 to 3 /HPF LAB URINALYSIS - AUTOMATED METHOD 05/06/2025 4:28 PM EDT [facility] WBC, Urine 6 - 10(A) 0 to 5 /HPF LAB URINALYSIS - AUTOMATED METHOD 05/06/2025 4:28 PM EDT [facility] Squamous Epithelial Cells 0 - 2 0 to 5 /HPF LAB URINALYSIS - AUTOMATED METHOD 05/06/2025 4:28 PM EDT [facility] Hyaline Casts 0 - 2 0 to 5 /LPF LAB URINALYSIS - AUTOMATED METHOD 05/06/2025 4:28 PM EDT [facility] Bacteria, Urine Negative Negative LAB URINALYSIS - AUTOMATED METHOD 05/06/2025 4:28 PM EDT [facility] Renal Tubular Cells Present Absent 05/06/2025 4:28 PM EDT [facility] Transitional Epithelial Cells Present Absent 05/06/2025 4:28 PM EDT [facility] Calcium Oxalate Crystals Present Absent 05/06/2025 4:28 PM EDT [facility] Urine Urine specimen obtained by clean catch procedure / Unknown Non-blood Collection / Unknown 05/06/2025 2:30 PM EDT 05/06/2025 2:30 PM EDT [facility] - 05/06/2025 4:28 PM EDT Performed by manual method us Angela Todd APRN LAB URINE ORDERABLES Veronica syed Result [facility] [address] [place] [address] * Protein, Random, Urine with Creatinine (05/06/2025 2:30 PM EDT) Protein, Urine 20 mg/dL 05/06/2025 4:34 PM EDT [facility] Creatinine, Urine 141 mg/dL 05/06/2025 4:34 PM EDT [facility] Protein/Creatin ine Ratio 0.1 mg/mg Creat 05/06/2025 4:34 PM EDT [facility] Urine Urine specimen obtained by clean catch procedure / Unknown Non-blood Collection / Unknown 05/06/2025 2:30 PM EDT 05/06/2025 2:30 PM EDT Angela Todd APRN LAB URINE ORDERABLES Veronica syed Result [facility] [address] [place] [address] * (ABNORMAL) CBC and Differential (05/06/2025 2:08 PM EDT) Pathologist [facility] WBC Count 9.44 3.70 - 10.30 10*3/uL LAB HEMATOLOGY METHOD 05/06/2025 3:39 PM EDT [facility] RBC Count 5.15 3.90 - 5.20 10*6/uL LAB HEMATOLOGY METHOD 05/06/2025 3:39 PM EDT [facility] HGB 14.4 11.2 - 15.7 g/dL LAB HEMATOLOGY METHOD 05/06/2025 3:39 PM EDT [facility] HCT 44.7 34.0 - 45.0 % LAB HEMATOLOGY METHOD 05/06/2025 3:39 PM EDT [facility] Platelet Count 337 155 - 369 10*3/uL LAB HEMATOLOGY METHOD 05/06/2025 3:39 PM EDT [facility] MCV 87 79 - 98 fL LAB HEMATOLOGY METHOD 05/06/2025 3:39 PM EDT [facility] MCH 28.0 26.0 - 32.0 pg LAB HEMATOLOGY METHOD 05/06/2025 3:39 PM EDT [facility] MCHC 32.2 30.7 - 35.5 g/dL LAB HEMATOLOGY METHOD 05/06/2025 3:39 PM EDT [facility] RDW 13.9 11.5 - 14.5 % LAB HEMATOLOGY METHOD 05/06/2025 3:39 PM EDT [facility] MPV 11.9 8.8 - 12.5 fL LAB HEMATOLOGY METHOD 05/06/2025 3:39 PM EDT [facility] nRBC 0.0 <=0.0 per 100 WBCs LAB HEMATOLOGY METHOD 05/06/2025 3:39 PM EDT [facility] Differential Type Automated LAB HEMATOLOGY METHOD 05/06/2025 3:39 PM EDT [facility] Neutrophils % 56 % LAB HEMATOLOGY METHOD 05/06/2025 3:39 PM EDT [facility] Lymphocytes % 32 % LAB HEMATOLOGY METHOD 05/06/2025 3:39 PM EDT [facility] Monocytes % 6 % LAB HEMATOLOGY METHOD 05/06/2025 3:39 PM EDT [facility] Eosinophils % 5 % LAB HEMATOLOGY METHOD 05/06/2025 3:39 PM EDT [facility] Basophils % 1 % LAB HEMATOLOGY METHOD 05/06/2025 3:39 PM EDT [facility] Immature Granulocytes % 0 % LAB HEMATOLOGY METHOD 05/06/2025 3:39 PM EDT [facility] Neutrophils Absolute 5.32 1.60 - 6.10 10*3/uL LAB HEMATOLOGY METHOD 05/06/2025 3:39 PM EDT [facility] Lymphocytes Absolute 3.00 1.20 - 3.90 10*3/uL LAB HEMATOLOGY METHOD 05/06/2025 3:39 PM EDT [facility] Monocytes Absolute 0.56 0.30 - 0.90 10*3/uL LAB HEMATOLOGY METHOD 05/06/2025 3:39 PM EDT [facility] Eosinophils Absolute 0.43 0.00 - 0.50 10*3/uL LAB HEMATOLOGY METHOD 05/06/2025 3:39 PM EDT [facility] Basophils Absolute 0.11(H) 0.00 - 0.10 10*3/uL LAB HEMATOLOGY METHOD 05/06/2025 3:39 PM EDT [facility] Immature Granulocytes Absolute 0.02 0.00 - 0.06 10*3/uL LAB HEMATOLOGY METHOD 05/06/2025 3:39 PM EDT [facility] Blood Venous blood specimen / Unknown Venipuncture / Unknown 05/06/2025 2:08 PM EDT 05/06/2025 2:09 PM EDT Narrative [facility] - 05/06/2025 3:39 PM EDT Therapeutic decision making should be based on absolute values, rather than percentages. us Angelabird Todd [employer]RE[address] [employer]ER LAB BLOOD ORDERABLES Veronica l Result [facility] [address] [place] [address] * (ABNORMAL) Hepatic Function Panel (05/06/2025 2:08 PM EDT) Conjugated Bilirubin, Plasma <0.2 <=0.3 mg/dL 05/06/2025 3:35 PM EDT [facility] Alkaline Phosphatase, Plasma 107(H) 35 - 104 U/L 05/06/2025 3:35 PM EDT [facility] Total Bilirubin, Plasma 0.2 0.2 - 1.1 mg/dL 05/06/2025 3:35 PM EDT [facility] Albumin, Plasma 3.9 3.5 - 5.2 g/dL 05/06/2025 3:35 PM EDT [facility] Total Protein 7.2 6.3 - 7.9 g/dL 05/06/2025 3:35 PM EDT [facility] ALT, Plasma 43(H) 10 - 35 U/L 05/06/2025 3:35 PM EDT [facility] AST, Plasma 35 10 - 35 U/L 05/06/2025 3:35 PM EDT [facility] Blood Venous blood specimen / Unknown Venipuncture / Unknown 05/06/2025 2:08 PM EDT 05/06/2025 2:09 PM EDT us Angelabird Todd APRN LAB BLOOD ORDERABLES Veronica l Result [facility] [address] [place] [address] * Creatinine, Plasma (05/06/2025 2:08 PM EDT) Creatinine, Plasma 0.62 0.60 - 1.10 mg/dL 05/06/2025 3:35 PM EDT [facility] eGFRcr 106.0 mL/min/1.7 3m*2 05/06/2025 3:35 PM EDT [facility] Comment:Reported eGFRcr in m L/min/1.73m2 is based the CKD-EPI 2020 equation that does not use a race coefficient. Blood Venous blood specimen / Unknown Venipuncture / Unknown 05/06/2025 2:08 PM EDT 05/06/2025 2:09 PM EDT Angela Landaverdetingly [address] LIGHT CLEANER LAB BLOOD ORDERABLES Veronica l Result [facility] [address] [place] [address] * C3 Complement (05/06/2025 2:08 PM EDT) C3 Complement 149 84 - 166 mg/dL 05/06/2025 3:30 PM EDT [facility] Blood Venous blood specimen / Unknown Venipuncture / Unknown 05/06/2025 2:08 PM EDT 05/06/2025 2:09 PM EDT Angela Syed Peyton [address] LIGHT CLEANER LAB BLOOD ORDERABLES Veronica l Result [facility] [address] [place] [address] * C4 Complement (05/06/2025 2:08 PM EDT) C4 Complement 25 13 - 36 mg/dL 05/06/2025 3:30 PM EDT [facility] Blood Venous blood specimen / Unknown Venipuncture / Unknown 05/06/2025 2:08 PM EDT 05/06/2025 2:09 PM EDT Angela Todd APRN LAB BLOOD ORDERABLES Veronica l Result Performing Organization Address [facility]/ZIP Co de Phone Number [facility] [address] [place] [address] * C-Reactive Protein, Plasma (05/06/2025 2:08 PM EDT) [facility] CRP, Plasma <3.0 <=8.0 mg/L 05/06/2025 3:35 PM EDT [facility] Blood Venous blood specimen / Unknown Venipuncture / Unknown 05/06/2025 2:08 PM EDT 05/06/2025 2:09 PM EDT Narrative [facility] - 05/06/2025 3:35 PM EDT This CRP test is appropriate for assessment of infection, systemic inflammation and/or tissue injury. To assess cardiovascular disease risk order high sensitivity CRP (CRPH). Angela Todd APRN LAB BLOOD ORDERABLES Veronica l Result Performing Organization Address [facility] Co de Phone Number [facility] [address] [place] [address] * (ABNORMAL) Sedimentation Rate, Automated (05/06/2025 2:08 PM EDT) [facility] Sedimentation Rate 38(H) <30 mm/hr 2024 4:06 PM EDT [facility] Blood Venous blood specimen / Unknown Venipuncture / Unknown 05/06/2025 2:08 PM EDT 05/06/2025 2:09 PM EDT [address]aly [address] LIGHT CLE[employer]ER LAB BLOOD ORDERABLES Veronica l Result Performing Organization Address [facility]/[place] [address] * Double-Stranded DNA (dsDNA) Antibody, IgG by IFA (05/06/2025 2:08 PM EDT) [facility] Double-Strande d DNA (dsDNA) Ab IgG IFA <1:10 <1:10 05/08/2025 11:43 PM EDT [facility] DONNA MELENDEZ) Blood Venous blood specimen / [...] recommendations for testing may be found at [email or web address]://[email or web address].Luminetx/content/[email or web address]. Performed By: [employer] [address] [place] [address] [employer] Operator: Abundio Urias MD, PhD CLIA Number: [id number] Angela Todd APRN LAB BLOOD ORDERABLES Veronica syed Result [facility] DONNA MELENDEZ) [address] [place] [address] documented in this encounter Visit Diagnoses Diagnosis [...] documented as of this encounter Care Teams Insurance Administrator Relationship Specialty Start Date End Date aVlentin Daniel MD PCP - General 09/18/22 documented as of this encounter
--- NOTE | 2025-05-26 10:59 | XR_ITS ---
FINAL REPORT CLINICAL HISTORY: f/u left ankle fx COMPARISON: 04/28/2025 FINDINGS: LEFT ANKLE: Three views of the left ankle demonstrate the previously noted transverse fracture of the tip of the lateral malleolus. Some interval healing is present along the inner aspect of the fracture. The amount of displacement is stable, and the ankle mortise is intact. IMPRESSION: Partial healing of the lateral malleolar fracture as described. Continued follow-up is suggested. Reviewed, Interpreted and Dictated by Mina Wright MD Transcribed by Kelly Masters Authenticated and [facility]
--- OUTSIDE RECORDS SUMMARY | 2025-05-26 11:02 | XMS_ITS | Encounter Summary ---
Author Organization [facility] Address [address] [place] [address] Care Team Providers Care Business Services Coordinator Name Role Phone Valentin Daniel MD Primary Care Provider [phone] Reason for Visit * Reason Comments Med Refill Encounter Details Date Type Department Care Team (Late st Contact Info) Description 05/13/2025 Refill [place] [facility] [address] [place] [address] Angela Todd L, DENTAL ASSOCIATE [address] [place] [address] Social History Tobacco Use Types [...] Info) Description 10/30/2025 8:00 AM EST Consult [facility] [address], [address]st [place] [address] Sim Tillman MD [address] [place] [address] 11/11/2025 12:50 PM EST Office Visit [facility] Medicine Specialties [address] [place] [address] Angela Todd APRN [address] [place] [address] documented as of this encounter [...] documented as of this encounter Care Teams Business Services Coordinator Relationship Specialty Start Date End Date Valentin Daniel MD PCP - General 09/18/22 documented as of this encounter
--- OUTSIDE RECORDS SUMMARY | 2025-05-26 11:03 | XMS_ITS | Encounter Summary ---
Author Organization [employer] ([place], [place], [place], [place]) Address [address] [place] [address] Care Team Providers Care Stock Crane Operator Name Role Phone Unavailable Primary Care Provider Unavailabl e Encounter Details Date Type Department Care Team (Late st Contact Info) Description 06/22/2021 Transcribed Document [facility] [place] [facility] [place] [address] ProviderRikki MD [address] [place] [phone] Social History Tobacco Use Types Packs/Day Years [...] had a heart cath done by her hospital administrative assistant in [place] in February, she did not have any [...] EDT Height Source Stated Height Entry Format [place] Height/Length, ALGERIAN (ft) 5 ft Height/Length ALGERIAN 3 Inch CLINICALHEIGHT 160.02 cm [place] Body Weight 52.02 kg Weight Source, ED Critical estimated dosing weight Weight Entry Format [place] Weight [place] lb 220 lb CLINICALWEIGHT 100 kg Body [...] Triage: ED C-SSRS: ED Clinical Reconciliation: ED preanalytics team lead: EKG: Normal Saline Flush: 10 mL, IV [...] % 30.8 % Lymph # 3.02 x10(3)/uL [place] % 5.3 % [place] # 0.52 K/uL Eos % 2.4 % [...]
--- OUTSIDE RECORDS SUMMARY | 2025-05-26 11:03 | XMS_ITS | Encounter Summary ---
Author Organization [employer] ([place], [place], [place]) Address [address] [place] [address] Care Team Providers Care Lithographic Plate Maker Apprentice Name Role Phone Unavailable Primary Care Provider Unavailabl e Encounter Details Date Type Department Care Team (Late st Contact Info) Description 06/03/[address] [facility] [place] [address] [place] [address] ProviderRikki MD [address] [place], [place] [phone] Social History Tobacco Use Types Packs/Day Years [...] DCP GENERIC CODE Tracking Group : [facility] ED MARC GREENWOOD RN - 06/03/2019 [...] Recent Thoughts of Harming/Killing Others : No Patient Registration Specialist Needed : No MARC GREENWOOD RN - [...] PNED ; Probability: 0 ; Diagnosis Code: [id number] ED Height and Weight Height Source : Stated Height Entry Format : [place] Height, Feet : 5 ft(Converted to: 152 cm, 60 Inch) Height, Inches : 3 Inch(Converted to: 0 ft 3 Inch, 7.62 cm) Clinical Height : 160.02 cm Weight Source, ED : Critical estimated dosing weight Weight Entry Format : [place] Weight, Pounds : 220 lb Clinical Dosing Weight : 100 kg Body Surface Area (BSA) : 2.02 m2 Body Mass Index : 39.1 kg/m2 (HI) [place] Body Weight (IBW) : 52.02 kg MARC [...]
--- OUTSIDE RECORDS SUMMARY | 2025-05-26 11:03 | XMS_ITS | Encounter Summary ---
Author Organization [employer] ([place], [place], [place]) Address [address] [place] [address] Care Team Providers Care Payroll Auditor Name Role Phone Unavailable Primary Care Provider Unavailabl e Encounter Details Date Type Department Care Team (Late st Contact Info) Description 06/21/2021 Transcribed Document [facility] [place] [address] [place] [address] ProviderRikki MD [address] [place] [place], [place] [id number] Social History Tobacco Use Types Packs/Day Years [...]
--- OUTSIDE RECORDS SUMMARY | 2025-05-26 11:03 | XMS_ITS | Encounter Summary ---
Author Organization [employer] ([place], [place]) Address [address] [place] [address] Care Team Providers Care Sole Layer Hand Name Role Phone Unavailable Primary Care Provider Unavailabl e Encounter Details Date Type Department Care Team (Late st Contact Info) Description 06/11/2019 Transcribed Document [facility] [place] [address] [place] [address] ProviderRikki MD [address] [place], [place] [address] Social History Tobacco Use Types Packs/Day Years [...]
--- OUTSIDE RECORDS SUMMARY | 2025-05-26 11:03 | XMS_ITS | Encounter Summary ---
Author Organization [facility] Address [address] [place] [address] Care Team Providers Care Charter Boat Operator Name Role Phone Valentin Daniel MD Primary Care Provider [phone] Encounter Details Date Type Department Care Team [...] [facility] [address]st [place] [address] Sim Tillman MD [address] [place] [address] 11/11/2025 12:50 PM EST Office Visit [facility] Medicine Specialties [address], [address] [place] [address] Angela Todd APRN [address] [place] [address] documented as of this encounter Visit Diagnoses [...] documented as of this encounter Care Teams Charter Boat Operator Relationship Specialty Start Date End Date Valentin Daniel MD PCP - General 09/18/22 documented as of this encounter
--- OUTSIDE RECORDS SUMMARY | 2025-05-26 11:03 | XMS_ITS | Referral Summary ---
Author Organization [employer] ([place], [place]) Address [address] [place] [address] Care Team Providers Care Maintenance Of Way Clerk Name Role Phone Unavailable Primary Care Provider [...]
--- OUTSIDE RECORDS SUMMARY | 2025-05-26 11:03 | XMS_ITS | Encounter Summary ---
Author Organization [employer] ([place], [place]) Address [address] [place] [address] Care Team Providers Care Embalmer Apprentice Name Role Phone Unavailable Primary Care Provider Unavailabl e Encounter Details Date Type Department Care Team (Late st Contact Info) Description 06/03/2019 Transcribed Document [facility] [place] [facility] [place] [address] ProviderRikki MD [address] [place] [phone] Social History Tobacco Use Types Packs/Day Years [...] 06/03/2019 15:02 EDT Electronically signed by [facility] Conversion Hydraulics Teacher Cerner at 01/28/2023 11:05 PM CDT documented in this encounter Plan of Treatment Not on file documented as of this encounter Visit Diagnoses Not on filedocumented in this encounter
--- OUTSIDE RECORDS SUMMARY | 2025-05-26 11:03 | XMS_ITS | Encounter Summary ---
Author Organization [employer] ([place], [place], [place], [place]) Address [address] [place] [address] Care Team Providers Care Crawler Crane Operator Name Role Phone Unavailable Primary Care Provider Unavailabl e Encounter Details Date Type Department Care Team (Late st Contact Info) Description 06/03/2019 Transcribed Document [facility] [place] [address] ProviderRikki MD [address] [place] [phone] Social History Tobacco Use Types Packs/Day Years [...] EDT Height Source Stated Height Entry Format [place] Height/Length, [place] (ft) 5 ft Height/Length [place] 3 Inch CLINICALHEIGHT 160.02 cm [place] Body Weight 52.02 kg Weight Source, ED Critical estimated dosing weight Weight Entry Format [place] Weight [place] lb 220 lb CLINICALWEIGHT 100 kg Body [...] Hand pain, wrist pain, fracture, sprain, contusion, SC, head injury, concussion,. Orders Include Previous Orders (Selected) Inpatient Orders Ordered EKG: Completed .Automated Differential: .Urinalysis Microscopic: CBC w/ Auto Diff: CMP Comprehensive Metabolic Panel: CR Hand Min 3 Vws RT: CT Head WO: Cardiac Monitoring: ED Adult Fall Risk Assessment: ED Adult Triage: ED Clinical Reconciliation: ED social media marketer: Normal Saline Flush: 10 mL, IV Push, [...] Color Yellow Urine Appearance Clear Urine Specific [place] 1.021 Urine pH Dipstick 7.5 Urine Leukocyte [...] Fall Scale Risk Level 0-24 Low Risk [place] Fall Interventions Adequate lighting, Bed in low position, Call device within reach, Hourly comfort/safety rounds, Non-Slip footwear, Personal items within reach, Reinforced to call for assistance before getting out of bed, Room free of clutter/spills, Upper side-rails up, Wheels locked, Wires/Cords secured Fall Moderate to High Risk Interventions Patient room close to nurses station Communication Barrier None Primary Language [place] Information Obtained From Patient Smoking Status Refused [...] air Height Source Stated Height Entry Format [place] Height/Length, [place] (ft) 5 ft Height/Length [place] 3 Inch CLINICALHEIGHT 160.02 cm [place] Body Weight 52.02 kg Weight Source, ED Critical estimated dosing weight Weight Entry Format [place] Weight [place] lb 220 lb CLINICALWEIGHT 100 kg Body [...] Ambulate Tracking Acuity 3 - Urgent (Modified) Estate Manager Needed No Accompanied by Unaccompanied Mode of Arrival Ambulatory 06/03/2019 10:46 EDT Nurse Collect Order Detail 3.00 Nurse Collect Order Detail 3.00 . Radiology results: Radiology Results (Last 48 hours) [id number] -- 06/03/2019 10:45 CR Hand Min 3 [...] Adult, Syncope. Follow up with: ALVARAD[facility] STIL[facility]REF[facility] Within 2 to 3 days Patient [...]
--- OUTSIDE RECORDS SUMMARY | 2025-05-26 11:03 | XMS_ITS | Clinical Summary ---
Author Organization [facility] Address [address] [place] [address] Care Team Providers Care Metal Technician Name Role Phone Provider, No Known Primary [...] 01/16/2022, 07/27/2021 Insurance [employer] Care Teams Metal Technician Relationship Specialty Start Date End Date Provider, [place] [address] PCP - General 08/09/23
--- OUTSIDE RECORDS SUMMARY | 2025-05-26 11:03 | XMS_ITS | Encounter Summary ---
Author Organization [employer] ([place], [place], [place], [place]) Address [address] [place] [address] Care Team Providers Care Television Maintenance Worker Name Role Phone Unavailable Primary Care Provider Unavailabl e Encounter Details Date Type Department Care Team (Late st Contact Info) Description 06/21/2021 Transcribed Document [facility] [place] [address] ProviderRikki MD [address] [place] [phone] Social History Tobacco Use Types Packs/Day Years [...] : 2 - Emergent Tracking Group : [facility] ED Jasmina Rao RN - 06/21/2021 22:09 [...] PNED ; Probability: 0 ; Diagnosis Code: [id number] ED Height and Weight Height Source : Stated Height Entry Format : [place] Height, Feet : 5 ft(Converted to: 152 cm, 60 Inch) Height, Inches : 3 Inch(Converted to: 0 ft 3 Inch, 7.62 cm) Clinical Height : 160.02 cm Weight Source, ED : Critical estimated dosing weight Weight Entry Format : [place] Weight, Pounds : 220 lb Clinical Dosing Weight : 100 kg Body Surface Area (BSA) : 2.02 m2 Body Mass Index : 39.1 kg/m2 (HI) [place] Body Weight (IBW) : 52.02 kg Jasmina Rao RN - 06/21/2021 22:09 EDT documented in this encounter Plan of Treatment Not on file documented as of this encounter Visit Diagnoses Not on filedocumented in this encounter
--- OUTSIDE RECORDS SUMMARY | 2025-05-26 11:03 | XMS_ITS | Encounter Summary ---
Author Organization [employer] ([place], [place], [place], [place]) Address [address] [place] [address] Care Team Providers Care Soda Fountain Operator Name Role Phone Unavailable Primary Care Provider Unavailabl e Encounter Details Date Type Department Care Team (Late st Contact Info) Description 06/21/2021 Transcribed Document [facility] [place] Medicine [address] [place] [address] ProviderRikki MD [address] [place] [place], [place] [id number] Social History Tobacco Use Types Packs/Day Years [...] Historical ProviderMD - 06/21/2021 9:55 PM CDT [place] Suicide Severity Rating Scale (C-SSRS) Entered On: 06/21/2021 22:29 EDT Performed On: 06/21/2021 22:27 EDT by Aruna Garcia [place] Suicide Severity Rating Scale (C-SSRS) CSSRS Past [...]
--- OUTSIDE RECORDS SUMMARY | 2025-05-26 11:03 | XMS_ITS | Encounter Summary ---
Author Organization [employer] ([place], [place], [place], [place]) Address [address] [place] [address] Care Team Providers Care Unhairing Machine Operator Name Role Phone Unavailable Primary Care Provider Unavailabl e Encounter Details Date Type Department Care Team (Late st Contact Info) Description 06/03/2019 Transcribed Document [facility] [place] [facility] [place] [address] ProviderRikki MD [address] [place], [place] [phone] Social History Tobacco Use Types Packs/Day Years [...]
--- OUTSIDE RECORDS SUMMARY | 2025-05-26 11:03 | XMS_ITS | Encounter Summary ---
Author Organization [employer] ([place], [place]) Address [address] [place] [address] Care Team Providers Care Hip Hop Dance Instructor Name Role Phone Unavailable Primary Care Provider Unavailabl e Encounter Details Date Type Department Care Team (Late st Contact Info) Description 06/21/2021 Transcribed Document [facility] [place] [facility] [place] [address] ProviderRikki MD [address] [place] [phone] Social History Tobacco Use Types Packs/Day Years [...]
--- OUTSIDE RECORDS SUMMARY | 2025-05-26 11:03 | XMS_ITS | Encounter Summary ---
Author Organization [employer] ([place], [place], [place]) Address [address] [place] [address] Care Team Providers Care Facility Maintenance Manager Name Role Phone Unavailable Primary Care Provider Unavailabl e Encounter Details Date Type Department Care Team (Late st Contact Info) Description 06/22/2021 Transcribed Document [facility] [place] [facility] [place] [address] ProviderRikki MD [address] [place] [phone] Social History Tobacco Use Types Packs/Day Years [...] EDT Electronically signed by Giacomo Azar Conversion Dye Penetrant Testing Technician Cerner at 01/28/2023 11:09 PM CDT documented in this encounter Plan of Treatment Not on file documented as of this encounter Visit Diagnoses Not on filedocumented in this encounter
--- OUTSIDE RECORDS SUMMARY | 2025-05-26 11:03 | XMS_ITS | Clinical Summary ---
Author Organization [employer] ([place], [place], [place], [place]) Address [address] [place] [address] Care Team Providers Care Leadership Program Internship Name Role Phone Unavailable Primary Care Provider [...]
--- OUTSIDE RECORDS SUMMARY | 2025-05-26 11:03 | XMS_ITS | Encounter Summary ---
Author Organization [employer] ([place], [place], [place], [place]) Address [address] [place] [address] Care Team Providers Care Asset Protection Representative Name Role Phone Unavailable Primary Care Provider Unavailabl e Encounter Details Date Type Department Care Team (Late st Contact Info) Description 06/03/2019 Transcribed Document [facility] [place] [facility] [place] [address] ProviderRikki MD [address] [place] [phone] Social History Tobacco Use Types Packs/Day [...] Montoya MD - 06/03/2019 2:51 PM CDT [facility] [place] [address] KASSI KONG :1970 Visit Time:06/03/2019 Your Visit Summary Your Care Team Admitting Physician - DRE POWER MARK, MD Attending Physician - MARIEL MCCRAY MD Primary Care Physician - ALVARADO STILES (REF), [facility] Referring Physician - MARIEL MCCRAY [...] in the future. Where: [place] [address] [place] [address]- Allergies SUMAtriptan (Other Anaphylactic Shock, Other Anaphylactic [...] range between ( 0.0 and 7.0 ) [place] #: 0.44 K/uL -- Normal range between ( 0.16 and 1.00 ) [place] #: 0.28 x10(3)/uL -- Normal range between ( 0.00 and 0.80 ) [place] %: 5.2 % -- Normal range between [...] ) Urine Bilirubin Dipstick: Negative Urine Specific [place]: 1.021 -- Normal range between ( 1.005 [...] stand. This can reduce dizziness. ??? Take hgvd-mrf-ezzqnqa and prescription medicines only as told by [...] 10/01/2006 Document Revised: 03/08/2017 Document Reviewed: 06/14/2016 [employer] Interactive Patient Education ?? 2018 [employer] Head Injury, Adult There are many [...] Ask your health care provider for a amhv-yo-oqxx plan for gradually returning to activities. ??? [...] your friends, family, a trusted colleague, and rodent control worker about your injury, symptoms, and restrictions. Have them watch for any new or worsening problems. General instructions ??? Take qwdd-gpp-sdsbcie and prescription medicines only as told by [...] 04/10/2017 Elsevier Interactive Patient Education ?? 2019 [employer] Contusion A contusion is a deep [...] This is often called the RICE strategy. Clnv-iph-cfzassr anti-inflammatory medicines may also be recommended for [...] are sitting or lying down. ??? Take unya-ylf-mvtqbjv and prescription medicines only as told by [...] 07/11/2006 Document Revised: 02/08/2017 Document Reviewed: 02/16/2016 [employer] Interactive Patient Education ?? 2019 [employer] Concussion, Adult A concussion is a [...] are taking any medicines, including prescription medicines, rput-zfc-jhnjokj medicines, and natural remedies. Some medicines, such [...] returning to activities. General instructions ??? Take yazd-mwk-kgtqtrg and prescription medicines only as told by [...] your teachers, school nurse, school counselor, assistant track coach, color strainer, or rodent control worker about your injury, symptoms, and restrictions. [...] 12/21/2004 Document Revised: 09/11/2017 Document Reviewed: 09/11/2017 [employer] Interactive Patient Education ?? 2019 [employer]. Emergency Awareness and Preventative Care STROKE [...] Assistance with quitting is available by contacting 7-160-QIKO-NOW. This is a free resource providing counseling, [...] was given the opportunity to ask questions. Patient/Gang Tailer Name: Patient/Gang Tailer Signature: Relationship to Patient: Clinician/Hospital Gang Tailer Signature: Please Provide a Telephone Number Where You Can Be Reached: Is it Permissible To Leave a Message? Date: documented in this encounter Plan of Treatment Not on file documented as of this encounter Visit Diagnoses Not on filedocumented in this encounter
--- OUTSIDE RECORDS SUMMARY | 2025-05-26 11:03 | XMS_ITS | Encounter Summary ---
Author Organization [employer] ([place], [place], [place], [place]) Address [address] [place] [address] Care Team Providers Care Client Coordinator Name Role Phone Unavailable Primary Care Provider Unavailabl e Encounter Details Date Type Department Care Team (Late st Contact Info) Description 06/03/2019 Transcribed Document [facility] [place] [facility] [place] [address] ProviderRikki MD [address] [place] [phone] Social History Tobacco Use Types Packs/Day Years [...]
--- OUTSIDE RECORDS SUMMARY | 2025-05-26 11:03 | XMS_ITS | Encounter Summary ---
Author Organization [employer] ([place], [place]) Address [address] [place] [address] Care Team Providers Care Couture Dressmaker Name Role Phone Unavailable Primary Care Provider Unavailabl e Encounter Details Date Type Department Care Team (Late st Contact Info) Description 06/22/2021 Transcribed Document [facility] [place] [facility] [place] [address] ProviderRikki MD [address] [place] [address] [phone] Social History Tobacco Use Types Packs/Day Years [...] CDT Electronically signed by Giacomo Azar Conversion Speech And Language Specialist Rajwinder at 01/28/2023 10:48 PM CDT documented in this encounter Plan of Treatment Not on file documented as of this encounter Visit Diagnoses Not on filedocumented in this encounter
--- OUTSIDE RECORDS SUMMARY | 2025-05-26 11:03 | XMS_ITS | Encounter Summary ---
Author Organization [employer] ([place], [place], [place], [place]) Address [address] [place] [address] Care Team Providers Care Expense Analyst Name Role Phone Unavailable Primary Care Provider Unavailabl e Encounter Details Date Type Department Care Team (Late st Contact Info) Description 06/03/2019 Transcribed Document [facility] [place] Family Medicine [address] [place] [address] ProviderRikki MD [address] [place], [place] [phone] Social History Tobacco Use Types Packs/Day Years [...] Communication Barrier : None Primary Language : Welsh Any Spiritual/Cultural Needs or Requests : No [...] - 06/03/2019 11:10 EDT Electronically signed by [facility] Conversion Esol Instructor Cerner at 01/28/2023 10:51 PM CDT documented in this encounter Plan of Treatment Not on file documented as of this encounter Visit Diagnoses Not on filedocumented in this encounter
--- OUTSIDE RECORDS SUMMARY | 2025-05-26 11:03 | XMS_ITS | Encounter Summary ---
Author Organization [facility] Address [address] [place] [address] Care Team Providers Care Pals Specialist Name Role Phone Valentin Daniel MD Primary Care Provider [phone] Encounter Details Date Type Department Care Team (Late st Contact Info) Description 05/11/2025 Results Follow-Up [facility] Medicine Specialties [address] [place] [address] Angela Todd, WAIVER ANALYST [address] [place] [address] Social History Tobacco Use Types [...] Info) Description 10/30/2025 8:00 AM EST Consult [facility] [address] [place] [address] Sim Tillman MD [address] [place] [address] 11/11/2025 12:50 PM EST Office Visit [facility] Medicine Specialties [address] [place] [address] Angela Todd APRN [address] [place] [address] documented as of this encounter [...] documented as of this encounter Care Teams Pals Specialist Relationship Specialty Start Date End Date Valentin Daniel MD PCP - General 09/18/22 documented as of this encounter
--- OUTSIDE RECORDS SUMMARY | 2025-05-26 11:03 | XMS_ITS | Encounter Summary ---
Author Organization [employer] ([place], [place], [place], [place]) Address [address] [place] [address] Care Team Providers Care Lithographic Press Feeder Name Role Phone Unavailable Primary Care Provider Unavailabl e Encounter Details Date Type Department Care Team (Late st Contact Info) Description 06/22/2021 Transcribed Document [facility] [place] [facility] [place] [address] ProviderRikki MD [address] [place] [address] [phone] Social History Tobacco Use Types Packs/Day Years [...]
--- OUTSIDE RECORDS SUMMARY | 2025-05-26 11:03 | XMS_ITS | Encounter Summary ---
Author Organization [employer] ([place], [place], [place], [place]) Address [address] [place] [address] Care Team Providers Care Windows Vmware Engineer Name Role Phone Unavailable Primary Care Provider Unavailabl e Encounter Details Date Type Department Care Team (Late st Contact Info) Description 06/03/2019 Transcribed Document [facility] Family Medicine [facility] [place] [address] ProviderRikki MD [address] [place] [address] Social History Tobacco Use Types Packs/Day [...] Montoya MD - 06/03/2019 2:51 PM CDT [facility] [place] [address] KASSI KONG :1970 Visit Time:06/03/2019 Your Visit Summary Your Care Team Admitting Physician - DRE POWER MARK, MD Attending Physician - MARIEL MCCRAY MD Primary Care Physician - ALVARADO STILES (REF), -[facility] Referring Physician - MARIEL MCCRAY MD [...] in the future. Where: [place] [address]- Allergies SUMAtriptan (Other Anaphylactic Shock, Other Anaphylactic [...] range between ( 0.0 and 7.0 ) [place] #: 0.44 K/uL -- Normal range between ( 0.16 and 1.00 ) [place] #: 0.28 x10(3)/uL -- Normal range between ( 0.00 and 0.80 ) [place] %: 5.2 % -- Normal range between [...] ) Urine Bilirubin Dipstick: Negative Urine Specific [place]: 1.021 -- Normal range between ( 1.005 [...] stand. This can reduce dizziness. ??? Take dckf-yoj-ncrwqjj and prescription medicines only as told by [...] 10/01/2006 Document Revised: 03/08/2017 Document Reviewed: 06/14/2016 PublikDemand Interactive Patient Education ?? 2018 [employer]Dem[employer] Inc. Head Injury, Adult There are many [...] Ask your health care provider for a ulmj-uw-nqaq plan for gradually returning to activities. ??? [...] your friends, family, a trusted colleague, and agricultural service worker about your injury, symptoms, and restrictions. Have them watch for any new or worsening problems. General instructions ??? Take btqw-ezb-ddwlptb and prescription medicines only as told by [...] 04/10/2017 Elsevier Interactive Patient Education ?? 2019 ElseV.i. Laboratories Inc. Contusion A contusion is a deep [...] This is often called the RICE strategy. Bbka-lfw-nuzbnra anti-inflammatory medicines may also be recommended for [...] are sitting or lying down. ??? Take ytse-asu-yzbzwpd and prescription medicines only as told by [...] 07/11/2006 Document Revised: 02/08/2017 Document Reviewed: 02/16/2016 PublikDem[employer] Interactive Patient Education ?? 2019 [employer] Inc. Concussion, Adult A concussion is a [...] are taking any medicines, including prescription medicines, snju-vbp-vhbwvgr medicines, and natural remedies. Some medicines, such [...] returning to activities. General instructions ??? Take eovo-kcb-wrjzldh and prescription medicines only as told by [...] Tell your teachers, school nurse, school counselor, fitness coach, regional sales trainer, or agricultural service worker about your injury, symptoms, and restrictions. [...] 12/21/2004 Document Revised: 09/11/2017 Document Reviewed: 09/11/2017 PublikDemand Interactive Patient Education ?? 2019 Pub[employer] Inc. Emergency Awareness and Preventative Care STROKE [...] Assistance with quitting is available by contacting 0-519-YMGR-NOW. This is a free resource providing counseling, [...] was given the opportunity to ask questions. Patient/Table Hand Name: Patient/Table Hand Signature: Relationship to Patient: Clinician/Hospital Table Hand Signature: Please Provide a Telephone Number Where You Can Be Reached: Is it Permissible To Leave a Message? Date: documented in this encounter Plan of Treatment Not on file documented as of this encounter Visit Diagnoses Not on filedocumented in this encounter
--- OUTSIDE RECORDS SUMMARY | 2025-05-26 11:03 | XMS_ITS | Encounter Summary ---
Author Organization [employer] ([place], [place], [place], [place]) Address [address] [place] [address] Care Team Providers Care Boot Liner Maker Name Role Phone Unavailable Primary Care Provider Unavailabl e Encounter Details Date Type Department Care Team (Late st Contact Info) Description 06/22/2021 Transcribed Document [facility] Family Medicine [facility] [place] [address] ProviderRikki MD [address] [place] [address] Social History Tobacco Use Types Packs/Day [...] Montoya MD - 06/22/2021 2:[address] [place] [place] [address] KASSI KONG :1970 Visit Time:06/21/2021 Your [...] 2 to 3 days Where: [place] [address]- [facility] (1) Allergies SUMAtriptan (Other Anaphylactic Shock, Other [...] range between ( 0.0 and 7.0 ) [place] #: 0.52 K/uL -- Normal range between ( 0.16 and 1.00 ) [place] #: 0.24 x10(3)/uL -- Normal range between ( 0.00 and 0.80 ) [place] %: 5.3 % -- Normal range between [...] these instructions at home: Medicines ??? Take pvcf-hxe-ezasovv and prescription medicines only as told by [...] provider. Document Revised: 04/03/2019 Document Reviewed: 04/03/2019 Ateo Patient Education ?? 2020 [employer] Inc[employer] Emergency Awareness and Preventative Care STROKE is [...] Assistance with quitting is available by contacting 4-332-UDLI-NOW. This is a free resource providing counseling, [...] was given the opportunity to ask questions. Patient/Strike Planning Applications Name: Patient/Strike Planning Applications Signature: Relationship to Patient: Clinician/Hospital Strike Planning Applications Signature: Please Provide a Telephone Number Where You Can Be Reached: Is it Permissible To Leave a Message? Date: documented in this encounter Plan of Treatment Not on file documented as of this encounter Visit Diagnoses Not on filedocumented in this encounter
--- OUTSIDE RECORDS SUMMARY | 2025-05-26 11:04 | XMS_ITS | Encounter Summary ---
Author Organization Healthcare Address [address] [place] [address] Care Team Providers Care Customer Retention Specialist Name Role Phone Valentin Daniel MD Primary Care Provider [phone] Encounter Details Date Type Department Care Team (Latest Contact Info) Description 02/05/2025 Community [facility] Community Practice [address] [place] [address] Valentin Daniel MD [address] [place] [address] Polyneuropathy (Primary Dx); Foot drop, left foot [...] Consult [place] [facility] [address], [address] [place] [address] [place] Tillman MD [address] [place] [address] 11/11/2025 12:50 PM EST Office Visit [facility] [address], [address] [place] [address] Angela Todd, BUILDING CONSTRUCTION CONTRACTOR [address] [facility] [address] [place] [address] documented as of this encounter [...] documented as of this encounter Care Teams Customer Retention Specialist Relationship Specialty Start Date End Date Valentin Daniel MD PCP - General 09/18/22 documented as of this encounter
--- OUTSIDE RECORDS SUMMARY | 2025-05-26 11:04 | XMS_ITS | Encounter Summary ---
Author Organization [facility] Address [address] [place] [address] Care Team Providers Care Compliance Associate Name Role Phone Valentin Daniel MD Primary Care Provider [phone] Reason for Referral * Consultation (Routine) - Authorized Specialty Diagnoses / Procedures Referred By Contac t Referred To Contact Neurology Diagnoses Left foot drop Mechanical problems with limbs Polyneuropathy Valentin Daniel MD [address] [place] [address] Phone: tel: fax: Referral ID Status Reason Start Date Expiration Date Visits Requested Visits Authorized [id number] Authorized Specialty Services Required 02/16/2025 08/18/2026 1 1 Encounter Details Date Type Department Care Team (Late st Contact Info) Description 02/16/2025 Community [facility] Community Practice [address] [place] [address] Valentin Daniel MD [address] [place] [address] Left foot drop (Primary Dx); Mechanical [...] Info) Description 10/30/2025 8:00 AM EST Consult [facility] [address], [address] [place] [address] [place] Tillman MD [address] [place] [address] 11/11/2025 12:50 PM EST Office Visit [facility] Medicine Specialties [address], [address] [place] [address] Angela Todd APRN [address] [place] [address] Scheduled Referrals Name Type Priority [...] documented as of this encounter Care Teams Compliance Associate Relationship Specialty Start Date End Date Valentin Daniel MD PCP - General 09/18/22 documented as of this encounter
--- OUTSIDE RECORDS SUMMARY | 2025-05-26 11:04 | XMS_ITS | Clinical Summary ---
Author Organization [facility] Address [address] [place] [address] Care Team Providers Care Delinquency Counselor Name Role Phone Valentin Daniel MD Primary Care Provider [phone] Allergies Active Allergy Reactions Criticality Noted Date [...] cream 01/21/20 21 Active ergocalciferol 1.25 MG (52395 UT) capsule TAKE ONE CAPSULE BY MOUTH EVERY WEEK DIRECTED 03/01/20 21 Active HYDROcodone-aceta minophen ([place]) 10-325 MG tablet TAKE ONE TABLET BY [...] MG tablet 01/28/20 24 Active nystatin (Mycostatin) 850117 UNIT/GM powder 02/01/20 24 Active omeprazole (PriLOSEC) [...] Type Department Care Team Description 05/13/2025 Refill [facility] [address] [place] [address] Angela Todd, ANGELITO 05/11/2025 Results Follow-Up [facility] [address], [address] [place] [address] Angela Todd, ANGELITO 05/06/2025 1:20 PM EDT Office Visit [facility] Medicine Specialties [address], [address] [place] [address] Angela Todd, [address] MAGISTRATE Positive RENETTA (antinuclear antibody) (Primary Dx); High risk medication use; Long-term use of hydroxychloroquine 05/06/2025 Travel from Last 3 Months Immunizations Immunization Administration [...] Info) Description 10/30/2025 8:00 AM EST Consult [facility] [address], [address] [place] [address] [place] Tillman MD [address] [place] [address] 11/11/2025 12:50 PM EST Office Visit [facility] Medicine Specialties [address], [address] [place] [address] Angela Todd APRN [address] [place] [address] Health Maintenance Due Date Last [...] (2 - Td or Tdap) 06/20/2021 06/20/2011 [id number] Vaccine ( season) 2024 07/14/2021, 11/17/2020, 10/28/2020 [...] syed Result [facility] [address] [place] [address] * Protein, Random, Urine with Creatinine (05/06/2025 [...] Syed Peyton [facility] LAB URINE ORDERABLES Veronica syed Result [facility] [address] [place] [address] * (ABNORMAL) Urinalysis with reflex microscopic (Culture NOT Included) (05/06/2025 2:30 PM EDT) Color, Urine Dark Yellow LAB URINALYSIS - AUTOMATED METHOD 05/06/2025 4:[address] [facility] Clarity, Urine Cloudy LAB URINALYSIS - AUTOMATED METHOD 05/06/2025 4:[address] [facility] Spec [place], Urine 1.026 1.005 - 1.030 LAB URINALYSIS [...] PM EDT 05/06/2025 2:[address] [facility] - 05/06/2025 4:28 PM EDT Performed by manual method us Angela Todd APRN LAB URINE ORDERABLES Veronica syed Result [facility] [address] [place] [address] * Double-Stranded DNA (dsDNA) Antibody, IgG by IFA (05/06/2025 2:08 PM EDT) Double-Strande d DNA (dsDNA) Ab IgG IFA <1:10 <1:10 05/08/2025 11:43 PM EDT [facility] ([facility]) Blood Venous blood specimen / Unknown Venipuncture / Unknown 05/06/2025 2:08 PM EDT 05/06/2025 2:09 PM EDT Narrative [facility] DON[facility] MELENDEZ) - 05/08/2025 11:43 PM EDT INTERPRETIVE [...] recommendations for testing may be found at [email or web address]. Performed By: [employer] [address] [place] [address] Mold Inspector: Abundio Urias MD, PhD CLIA Number: [id number] Angela Josie Todd [facility] LAB BLOOD ORDERABLES Veronica l Result [facility] AL) [address] [place] [address] * Creatinine, Plasma (05/06/2025 2:08 PM EDT) [...] ORDERABLES Veronica l Result Performing Organization Address City/[facility]/ZIP Co de Phone Number [facility] [address] [place] [address] * (ABNORMAL) Sedimentation Rate, Automated (05/06/2025 2:08 PM EDT) Sedimentation Rate 38(H) <30 mm/hr 2024 4:[address] [facility] Blood Venous blood specimen / Unknown Venipuncture / Unknown 05/06/2025 2:08 PM EDT 05/06/2025 2:09 PM EDT Angela Todd APRN LAB BLOOD ORDERABLES Veronica l Result Performing Organization Address City/[facility]/ZIP Co de Phone Number [facility] [address] [place] [address] * (ABNORMAL) CBC and Differential (05/06/2025 2:08 [...] absolute values, rather than percentages. Angela Todd [address] MAGISTRATE LAB BLOOD ORDERABLES Veronica l Result Performing Organization Address City/[facility] Co de Phone Number [facility] [address] [place] [address] * C3 Complement (05/06/2025 2:08 PM EDT) C3 Complement 149 84 - 166 mg/dL 05/06/2025 3:[address] [facility] Blood Venous blood specimen / Unknown Venipuncture / Unknown 05/06/2025 2:08 PM EDT 05/06/2025 2:09 PM EDT Angela oTdd [address] MAGISTRATE LAB BLOOD ORDERABLES Veronica l Result Performing Organization Address City/[facility]/ZIP Co de Phone Number [facility] [address] [place] [address] * C4 Complement (05/06/2025 2:08 PM EDT) C4 Complement 25 13 - 36 mg/dL 05/06/2025 3:[address] [facility] Blood Venous blood specimen / Unknown Venipuncture / Unknown 05/06/2025 2:08 PM EDT 05/06/2025 2:09 PM EDT Angela Todd [address] MAGISTRATE LAB BLOOD ORDERABLES Veronica l Result Performing Organization Address City/[facility]/ZIP Co de Phone Number [facility] [address] [place] [address] * C-Reactive Protein, Plasma (05/06/2025 2:08 PM [...] APRN LAB BLOOD ORDERABLES Veronica syed Result [facility] [address] [place] [address] * (ABNORMAL) Hepatic Function Panel (05/06/2025 2:08 [...] APRN LAB BLOOD ORDERABLES Veronica syed Result [facility] [address] [place] [address] from Last 3 Months Additional Health Concerns Infection Onset Date Last Indicated MRSA 04/20/2021 04/20/2021 Insurance [employer]ET[employer] Care Teams Delinquency Counselor Relationship Specialty Start Date End Date Valentin Daniel MD PCP - General 09/18/22
== END 2025-05-26 23:59 | disposition home or self-care (01) ==
LOC: RAD 10:54
PROVIDERS: PCP Family Medicine; Visit Provider Physician Assistant
DX: S82.62XD Displaced fracture of lateral malleolus of left fibula, subsequent encounter for closed fracture with routine healing (principal)
CPT/HCPCS: 73610

== ENCOUNTER 2025-05-26 13:26 | Outpatient (RCR) | payer OTHER, SELFPAY | END 2025-05-26 23:59 | disposition home or self-care (01) | LOC: PT 13:26 | PROVIDERS: Visit Provider Physician Assistant | DX: G45.9 Transient cerebral ischemic attack, unspecified (principal) | CPT/HCPCS: 97760 ==

== ENCOUNTER 2025-06-11 07:59 | Outpatient (CLI) | payer OTHER, SELFPAY ==
--- OUTSIDE RECORDS SUMMARY | 2025-05-06 13:20 | XMS_ITS | Encounter Summary ---
Author Organization [facility] Address [address] [place] [address] Care Team Providers Care Project Manager Entertainment And Media Name Role Phone Valentin Daniel MD Primary Care Provider [phone] Reason for Visit * Reason Comments Follow-up Mental status, decre ased Encounter Details Date Type Department Care Team (Latest Contact Info) Description 05/06/2025 1:20 PM EDT Office Visit [facility] [address] [place] [address] Angela Todd, MAINTENANCE MGR [address] [place] [address] Positive RENETTA (antinuclear antibody) (Primary [...] * Progress Notes - Peyton, Angela Josie, MAINTENANCE MGR - 05/06/2025 1:20 PM EDT Kassi Claudio [...] - SSA. - SSB. - Daniels. - SILVER MINER BLASTING. 10 year history of Raynaud's. Describes blanching. No digit ulcerations. History of multiple blood clots. + LAC x 2. - B2 glycoprotein. - cardiolipin. Rash on chest that is now resolved with use of HCQ. 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 Med hx: Hydroxychloriquine (2018-current) [...] Pt still struggles with fibromyalgia. Currently takes Cocoa and Lyrica. Denies any blood clots. Continues on hydroxychloriquine. Pt has upcoming eye exam in June. She has had several UTI's and kidney stones since the last visit. She follows with pain management for CBP. She endorses morning stiffness, around 30 minutes. She had XR completed at [facility]. She is following with Dr. Billingsley, orthopedics at [facility]. She denies any SOB, CP [...] allergic reaction 07/16/2024 Acute CVA (cerebrovascular accident) ([facility]) 07/16/2024 Acute hypokalemia 07/16/2024 This has been repleted and was a postsurgical issue. 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) 07/16/2024 Close exposure to COVID-19 virus 07/16/2024 Conversions - Other Depression Conversions - Other Hiatal Hernia Conversions - Other Leiomyoma Of The Uterus Conversions - Other Lyme Disease Cough 07/16/2024 COVID-19 07/16/2024 Diastolic dysfunction 07/16/2024 Dizziness 07/16/2024 Dropfoot 07/16/2024 DVT (deep venous thrombosis) ([facility]) 04/04/2016 Dysuria 07/16/2024 Edema 07/16/2024 Enterocolitis due to Clostridium difficile, not specified as recurrent Clostridium difficile diarrhea Environmental and seasonal allergies 07/16/2024 Essential hypertension 11/03/2015 Facial paresthesia 07/16/2024 Fall 07/16/2024 Falling 07/16/2024 Fibromyalgia 11/08/2019 Ganglion, unspecified site Ganglion Gastro-esophageal reflux disease without esophagitis 06/25/2013 GERD with esophagitis 07/16/2024 Heart failure Hyperparathyroidism ([facility]) 07/16/2024 Hypertensive heart disease 07/16/2024 Injury [...] Left ankle instability 07/16/2024 Left leg DVT ([facility]) 07/16/2024 Left leg weakness 07/16/2024 Lesion of nose 07/16/2024 Lumbar nerve root impingement 06/30/2014 Lumbosacral neuritis 04/28/2015 Menopausal and female climacteric states Menopausal syndrome (hot flashes) Methicillin resistant Staphylococcus aureus infection, unspecified site MRSA (methicillin resistant Staphylococcus aureus) Migraine 07/16/2024 Morbid obesity with body mass index (BMI) of 40.0 to 49.9 ([facility]) 07/16/2024 Myalgia 06/27/2018 Other intervertebral disc [...] Procedure Laterality Date APPENDECTOMY N/A Appendectomy from [facility] BACK SURGERY N/A Back Surgery from [facility] CARPAL TUNNEL RELEASE N/A Neuroplasty Decompression Median Nerve At Carpal Tunnel from [facility] SECTION, LOW TRANSVERSE N/A Section from [facility] CHOLECYSTECTOMY N/A Cholecystectomy Laparoscopic from [facility] GASTRIC BYPASS HYSTERECTOMY N/A Hysterectomy from [facility] LAPAROSCOPIC DIANELYS FUNDOPLICATION N/A Esophagogastric Fundoplasty Dianelys Fundoplication from [facility] OTHER SURGICAL HISTORY N/A Knee Arthroscopy from [facility] Social History Socioeconomic History Marital status: Spouse [...] Not on file 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 Marital History - Currently Social Drivers of Health Financial Resource Strain: Not on file Food Insecurity: Not on file Transportation Needs: Not on file Physical Activity: Not on file Stress: Not on file Social Connections: Unknown (07/23/2023) Received from [facility] Family and Community Support Help with Day-to-Day Activities: Not on file Lonely or Isolated: Not on file Intimate Partner Violence: Unknown (07/23/2023) Received from [facility] Abuse Screen Unsafe at Home or Work/School: Not on file Feels Threatened by Someone?: Not on file Does Anyone Keep You from Contacting Others or Doint Things Outside the Home?: Not on file Physical Sign of Abuse Present: Not on file Housing Stability: Unknown (07/23/2023) Received from [facility] Housing Stability Current Living Arrangements: Not [...] Take 1 tablet by mouth daily. HYDROcodone-acetaminophen (Cocoa) 10-325 MG tablet TAKE ONE TABLET BY [...] (Temovate) 0.05 % cream ergocalciferol 1.25 MG (88491 UT) capsule TAKE ONE CAPSULE BY MOUTH EVERY WEEK DIRECTED ferrous sulfate 325 (65 Fe) MG tablet PLEASE SEE ATTACHED FOR DETAILED DIRECTIONS (Patient not taking: Reported on 07/16/2024) furosemide (Lasix) 20 MG tablet if needed. nystatin (Mycostatin) 574705 UNIT/GM powder omeprazole (PriLOSEC) [address] [...] consider testing for antibodies against cardiolipin and [id number] I. Final aPTT Lupus Anticoagulant Sensitive 07/16/2024 [...] Glycoprotein IgM Inter* 07/16/2024 Negative Negative Final [id number] 1, IgA Antibody 07/16/2024 <10 <=20 ALDEN [...] by another provider. Currently taking Lyrica and Cocoa - Continue with pain management. 4. 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 High risk medication use -routine labs today -pt is due for eye exam in June [facility] 6 months The patient was counseled about [...] Info) Description 10/30/2025 8:00 AM EST Consult [facility] [address] [place] [address] Sim Tillman MD [address] [place] [address] 11/11/2025 12:50 PM EST Office Visit [facility] Medicine Specialties [address] [place] [address] Angela Todd, ANGELITO [address] [place] [address] documented as of this encounter Results * (ABNORMAL) Urinalysis with reflex microscopic (Culture NOT Included) (05/06/2025 2:30 PM EDT) Color, Urine Dark Yellow LAB URINALYSIS - AUTOMATED METHOD 05/06/2025 4:[address] [facility] Clarity, Urine Cloudy LAB URINALYSIS - AUTOMATED METHOD 05/06/2025 4:[address] [facility] Spec [place], Urine 1.026 1.005 - 1.030 LAB URINALYSIS - AUTOMATED METHOD 05/06/2025 4:[address] [facility] pH, Urine 5.5 5.0 - 8.0 LAB URINALYSIS - AUTOMATED METHOD 05/06/2025 4:[address] [facility] Protein, Urine 30(A) Negative mg/dL LAB URINALYSIS - AUTOMATED METHOD 05/06/2025 4:[address] [facility] Glucose, Urine >=1000(A) Negative mg/dL LAB URINALYSIS - AUTOMATED METHOD 05/06/2025 4:[address] [facility] Ketones, Urine Trace(A) Negative mg/dL LAB URINALYSIS - AUTOMATED METHOD 05/06/2025 4:[address] [facility] Blood, Urine Large(A) Negative LAB URINALYSIS - AUTOMATED METHOD 05/06/2025 4:[address] [facility] Bilirubin, Urine Small(A) Negative LAB URINALYSIS - AUTOMATED METHOD 05/06/2025 4:[address] [facility] Urobilinogen, Urine 0.2 0.2 to 1.0 mg/dL LAB URINALYSIS - AUTOMATED METHOD 05/06/2025 4:[address] [facility] Leukocytes, Urine Negative Negative LAB URINALYSIS - AUTOMATED METHOD 05/06/2025 4:[address] [facility] Nitrite, Urine Negative Negative LAB URINALYSIS - AUTOMATED METHOD 05/06/2025 4:[address] [facility] RBC, Urine >50(A) 0 to 3 /HPF LAB URINALYSIS - AUTOMATED METHOD 05/06/2025 4:[address] [facility] WBC, Urine 6 - 10(A) 0 to 5 /HPF LAB URINALYSIS - AUTOMATED METHOD 05/06/2025 4:[address] [facility] Squamous Epithelial Cells 0 - 2 0 to 5 /HPF LAB URINALYSIS - AUTOMATED METHOD 05/06/2025 4:[address] [facility] Hyaline Casts 0 - 2 0 to 5 /LPF LAB URINALYSIS - AUTOMATED METHOD 05/06/2025 4:[address] [facility] Bacteria, Urine Negative Negative LAB URINALYSIS - AUTOMATED METHOD 05/06/2025 4:[address] [facility] Renal Tubular Cells Present Absent 05/06/2025 4:[address] [facility] Transitional Epithelial Cells Present Absent 05/06/2025 4:[address] [facility] Calcium Oxalate Crystals Present Absent 05/06/2025 4:[address] [facility] Urine Urine specimen obtained by clean catch procedure / Unknown Non-blood Collection / Unknown 05/06/2025 2:30 PM EDT 05/06/2025 2:30 PM EDT [facility] - 05/06/2025 4:28 PM EDT Performed by manual method us Angela Todd APRN LAB URINE ORDERABLES Veronica syed Result [facility] [address] [place] [address] * Protein, Random, Urine with Creatinine (05/06/2025 2:30 PM EDT) Protein, Urine 20 mg/dL 05/06/2025 4:[address] [facility] Creatinine, Urine 141 mg/dL 05/06/2025 4:[address] [facility] Protein/Creatin ine Ratio 0.1 mg/mg Creat 05/06/2025 4:[address] [facility] Urine Urine specimen obtained by clean catch procedure / Unknown Non-blood Collection / Unknown 05/06/2025 2:30 PM EDT 05/06/2025 2:30 PM EDT Angela Todd APRN LAB URINE ORDERABLES Veronica syed Result [facility] [address] [place] [address] * (ABNORMAL) CBC and Differential (05/06/2025 2:08 PM EDT) Pathologist [facility] [place] WBC Count 9.44 3.70 - 10.30 10*3/uL LAB HEMATOLOGY METHOD 05/06/2025 3:[address] [facility] RBC Count 5.15 3.90 - 5.20 10*6/uL LAB HEMATOLOGY METHOD 05/06/2025 3:[address] [facility] HGB 14.4 11.2 - 15.7 g/dL LAB HEMATOLOGY METHOD 05/06/2025 3:[address] [facility] HCT 44.7 34.0 - 45.0 % LAB HEMATOLOGY METHOD 05/06/2025 3:[address] [facility] Platelet Count 337 155 - 369 10*3/uL LAB HEMATOLOGY METHOD 05/06/2025 3:[address] [facility] MCV 87 79 - 98 fL LAB HEMATOLOGY METHOD 05/06/2025 3:[address] [facility] MCH 28.0 26.0 - 32.0 pg LAB HEMATOLOGY METHOD 05/06/2025 3:[address] [facility] MCHC 32.2 30.7 - 35.5 g/dL LAB HEMATOLOGY METHOD 05/06/2025 3:[address] [facility] RDW 13.9 11.5 - 14.5 % LAB HEMATOLOGY METHOD 05/06/2025 3:[address] [facility] MPV 11.9 8.8 - 12.5 fL LAB HEMATOLOGY METHOD 05/06/2025 3:[address] [facility] nRBC 0.0 <=0.0 per 100 WBCs LAB HEMATOLOGY METHOD 05/06/2025 3:[address] [facility] Differential Type Automated LAB HEMATOLOGY METHOD 05/06/2025 3:[address] [facility] Neutrophils % 56 % LAB HEMATOLOGY METHOD 05/06/2025 3:[address] [facility] Lymphocytes % 32 % LAB HEMATOLOGY METHOD 05/06/2025 3:[address] [facility] Monocytes % 6 % LAB HEMATOLOGY METHOD 05/06/2025 3:[address] [facility] Eosinophils % 5 % LAB HEMATOLOGY METHOD 05/06/2025 3:[address] [facility] Basophils % 1 % LAB HEMATOLOGY METHOD 05/06/2025 3:[address] [facility] Immature Granulocytes % 0 % LAB HEMATOLOGY METHOD 05/06/2025 3:[address] [facility] Neutrophils Absolute 5.32 1.60 - 6.10 10*3/uL LAB HEMATOLOGY METHOD 05/06/2025 3:[address] [facility] Lymphocytes Absolute 3.00 1.20 - 3.90 10*3/uL LAB HEMATOLOGY METHOD 05/06/2025 3:[address] [facility] Monocytes Absolute 0.56 0.30 - 0.90 10*3/uL LAB HEMATOLOGY METHOD 05/06/2025 3:[address] [facility] Eosinophils Absolute 0.43 0.00 - 0.50 10*3/uL LAB HEMATOLOGY METHOD 05/06/2025 3:[address] [facility] Basophils Absolute 0.11(H) 0.00 - 0.10 10*3/uL LAB HEMATOLOGY METHOD 05/06/2025 3:[address] [facility] Immature Granulocytes Absolute 0.02 0.00 - 0.06 10*3/uL LAB HEMATOLOGY METHOD 05/06/2025 3:[address] [facility] Blood Venous blood specimen / Unknown Venipuncture / Unknown 05/06/2025 2:08 PM EDT 05/06/2025 2:[address] [facility] - 05/06/2025 3:39 PM EDT Therapeutic decision making should be based on absolute values, rather than percentages. us Angelabird Todd MAINTENANCE MGR LAB BLOOD ORDERABLES Veronica l Result [facility] [address] [place] [address] * (ABNORMAL) Hepatic Function Panel (05/06/2025 2:08 PM EDT) Conjugated Bilirubin, Plasma <0.2 <=0.3 mg/dL 05/06/2025 3:[address] [facility] Alkaline Phosphatase, Plasma 107(H) 35 - 104 U/L 05/06/2025 3:[address] [facility] Total Bilirubin, Plasma 0.2 0.2 - 1.1 mg/dL 05/06/2025 3:[address] [facility] Albumin, Plasma 3.9 3.5 - 5.2 g/dL 05/06/2025 3:[address] [facility] Total Protein 7.2 6.3 - 7.9 g/dL 05/06/2025 3:[address] [facility] ALT, Plasma 43(H) 10 - 35 U/L 05/06/2025 3:[address] [facility] AST, Plasma 35 10 - 35 U/L 05/06/2025 3:[address] [facility] Blood Venous blood specimen / Unknown Venipuncture / Unknown 05/06/2025 2:08 PM EDT 05/06/2025 2:09 PM EDT us Angelabird Todd APRN LAB BLOOD ORDERABLES Veronica l Result [facility] [address] [place] [address] * Creatinine, Plasma (05/06/2025 2:08 PM EDT) Creatinine, Plasma 0.62 0.60 - 1.10 mg/dL 05/06/2025 3:[address] [facility] eGFRcr 106.0 mL/min/1.7 3m*2 05/06/2025 3:[address] [facility] Comment:Reported eGFRcr in m L/min/1.73m2 is based the CKD-EPI 2020 equation that does not use a race coefficient. Blood Venous blood specimen / Unknown Venipuncture / Unknown 05/06/2025 2:08 PM EDT 05/06/2025 2:09 PM EDT Angela Landaverdetingly MAINTENANCE MGR LAB BLOOD ORDERABLES Veronica l Result [facility] [address] [place] [address] * C3 Complement (05/06/2025 2:08 PM EDT) C3 Complement 149 84 - 166 mg/dL 05/06/2025 3:30 PM EDT [facility] Blood Venous blood specimen / Unknown Venipuncture / Unknown 05/06/2025 2:08 PM EDT 05/06/2025 2:09 PM EDT Angela Syed Peyton MAINTENANCE MGR LAB BLOOD ORDERABLES Veronica l Result [facility] [address] [place] [address] * C4 Complement (05/06/2025 2:08 PM EDT) C4 Complement 25 13 - 36 mg/dL 05/06/2025 3:30 PM EDT [facility] Blood Venous blood specimen / Unknown Venipuncture / Unknown 05/06/2025 2:08 PM EDT 05/06/2025 2:09 PM EDT Angela Todd APRN LAB BLOOD ORDERABLES Veronica l Result Performing Organization Address [facility]/ZIP Co de Phone Number [facility] [address] [place] [address] * C-Reactive Protein, Plasma (05/06/2025 2:08 PM EDT) [facility] CRP, Plasma <3.0 <=8.0 mg/L 05/06/2025 3:[address] [facility] Blood Venous blood specimen / Unknown Venipuncture / Unknown 05/06/2025 2:08 PM EDT 05/06/2025 2:[address] [facility] - 05/06/2025 3:35 PM EDT This CRP test is appropriate for assessment of infection, systemic inflammation and/or tissue injury. To assess cardiovascular disease risk order high sensitivity CRP (CRPH). Angela Todd APRN LAB BLOOD ORDERABLES Veronica l Result Performing Organization Address [facility] Co de Phone Number [facility] [address] [place] [address] * (ABNORMAL) Sedimentation Rate, Automated (05/06/2025 2:08 PM EDT) [facility] Sedimentation Rate 38(H) <30 mm/hr 2024 4:[address] [facility] Blood Venous blood specimen / Unknown Venipuncture / Unknown 05/06/2025 2:08 PM EDT 05/06/2025 2:09 PM EDT Angela Becerraly MAINTENANCE MGR LAB BLOOD ORDERABLES Veronica l Result Performing Organization Address [facility]/[place] [address] * Double-Stranded DNA (dsDNA) Antibody, IgG by IFA (05/06/2025 2:08 PM EDT) [facility] Double-Strande d DNA (dsDNA) Ab IgG IFA <1:10 <1:10 05/08/2025 11:43 PM EDT [facility]) Blood Venous blood specimen / [...] recommendations for testing may be found at [email or web address]. Performed By: [facility] [address] [place] [address] Supervisor Coil Winding: Abundio Urias MD, PhD CLIA Number: [id number] Angela Todd APRN LAB BLOOD ORDERABLES Veronica syed Result [facility]) [address] [place] [address] documented in this encounter Visit Diagnoses Diagnosis [...] documented as of this encounter Care Teams Project Manager Entertainment And Media Relationship Specialty Start Date End Date Valentin Daniel MD PCP - General 09/18/22 documented as of this encounter
--- OUTSIDE RECORDS SUMMARY | 2025-06-11 08:02 | XMS_ITS | Clinical Summary ---
Author Organization [employer] ([place], [place], [place], [place]) Address [address] [place] [address] Care Team Providers Care Programming Equipment Operator Name Role Phone Unavailable Primary Care [...]
--- OUTSIDE RECORDS SUMMARY | 2025-06-11 08:02 | XMS_ITS | Encounter Summary ---
Author Organization [employer] ([place], [place], [place], [place]) Address [address] [place] [address] Care Team Providers Care Computer Systems Auditor Name Role Phone Unavailable Primary Care Provider Unavailabl e Encounter Details Date Type Department Care Team (Late st Contact Info) Description 06/22/2021 Transcribed Document [facility] Family Medicine [facility] [place] [address] ProviderRikki MD [address] [place] [id number] Social History Tobacco Use Types Packs/Day Years [...] Chest Pain 06/22/2021 01:41 06/22/2021 09:24 (CHRISTEL ACSILLAS APRN) Reviewed by Provider, No further action required x1 documented in this encounter Plan of Treatment Not on file documented as of this encounter Visit Diagnoses Not on filedocumented in this encounter
--- OUTSIDE RECORDS SUMMARY | 2025-06-11 08:02 | XMS_ITS | Encounter Summary ---
Author Organization [facility] Address [address] [place] [address] Care Team Providers Care Staff Nurse Anesthetist Name Role Phone Valentin Daniel MD Primary Care Provider [phone] Encounter Details Date Type Department Care Team [...] Description 10/30/2025 8:[address] [facility] [address], 1st [place] [address] [place] Tillman MD [address] [place] [address] 11/11/2025 12:50 PM EST Office Visit [facility] Medicine Specialties [address], [address] [place] [address] Angela Todd APRN [address] [place] [address] documented as of this encounter Visit Diagnoses [...] documented as of this encounter Care Teams Staff Nurse Anesthetist Relationship Specialty Start Date End Date Valentin Daniel MD PCP - General 09/18/22 documented as of this encounter
--- OUTSIDE RECORDS SUMMARY | 2025-06-11 08:02 | XMS_ITS | Encounter Summary ---
Author Organization [facility] Address [address] [place] [address] Care Team Providers Care Computer Systems Security Administrator Name Role Phone Valentin Daniel MD Primary Care Provider [phone] Reason for Visit * Reason Comments Med Refill Encounter Details Date Type Department Care Team (Late st Contact Info) Description 05/13/2025 Refill [place] [facility] [address], [address] [place] [address] Angela Todd L, ASSEMBLY LEADER [address] [place] [address] Social History Tobacco Use Types [...] Info) Description 10/30/2025 8:00 AM EST Consult [facility] [address], [address] [place] [address] [place] Tillman MD [address] [place] [address] 11/11/2025 12:50 PM EST Office Visit [facility] Medicine Specialties [address], [address] [place] [address] Angela Todd APRN [address] [place] [address] documented as of this encounter [...] documented as of this encounter Care Teams Computer Systems Security Administrator Relationship Specialty Start Date End Date Valentin Daniel MD PCP - General 09/18/22 documented as of this encounter
--- OUTSIDE RECORDS SUMMARY | 2025-06-11 08:02 | XMS_ITS | Encounter Summary ---
Author Organization [email or web address] ([place], [place], [place], [place]) Address [address] [place] [address] Care Team Providers Care Light Technician Name Role Phone Unavailable Primary Care Provider Unavailabl e Encounter Details Date Type Department Care Team (Late st Contact Info) Description 06/22/2021 Transcribed Document [facility] Family Medicine [facility] [place] [address] ProviderRikki MD [address] [place] [phone] Social History Tobacco Use Types Packs/Day Years [...]
--- OUTSIDE RECORDS SUMMARY | 2025-06-11 08:02 | XMS_ITS | Encounter Summary ---
Author Organization [employer] ([place], [place], [place], [place]) Address [address] [place] [address] Care Team Providers Care Mobile Home Laborer Name Role Phone Unavailable Primary Care Provider Unavailabl e Encounter Details Date Type Department Care Team (Late st Contact Info) Description 06/03/2019 Transcribed Document [facility] Family [facility] [place] [address] ProviderRikki MD [address] [place], [place] [address] Social History Tobacco Use Types Packs/Day Years [...]
--- OUTSIDE RECORDS SUMMARY | 2025-06-11 08:02 | XMS_ITS | Encounter Summary ---
Author Organization [employer] ([place], [place], [place], [place]) Address [address] [place] [address] Care Team Providers Care Percussion Instrument Repairer Name Role Phone Unavailable Primary Care Provider Unavailabl e Encounter Details Date Type Department Care Team (Late st Contact Info) Description 06/22/2021 Transcribed Document [facility] Family Medicine [facility] [place] [address] ProviderRikki MD [address] [place] [address] Social History Tobacco Use Types Packs/Day [...] Montoya MD - 06/22/2021 2:03 AM CDT [facility] [place] [address] KASSI KONG :1970 Visit Time:06/21/2021 Your [...] 2 to 3 days Where: [place] [address]- [facility] (1) Allergies SUMAtriptan (Other Anaphylactic Shock, [...] range between ( 0.0 and 7.0 ) [place] #: 0.52 K/uL -- Normal range between ( 0.16 and 1.00 ) [place] #: 0.24 x10(3)/uL -- Normal range between ( 0.00 and 0.80 ) [place] %: 5.3 % -- Normal range between [...] these instructions at home: Medicines ??? Take xwna-whf-nxbcfnm and prescription medicines only as told by [...] provider. Document Revised: 04/03/2019 Document Reviewed: 04/03/2019 [employer] Patient Education ?? 2020 [employer]. Emergency Awareness and Preventative Care STROKE is [...] Assistance with quitting is available by contacting 2-731-YFDJ-NOW. This is a free resource providing counseling, [...] was given the opportunity to ask questions. Patient/Hand Cloth Examiner Name: Patient/Hand Cloth Examiner Signature: Relationship to Patient: Clinician/Hospital Hand Cloth Examiner Signature: Please Provide a Telephone Number Where You Can Be Reached: Is it Permissible To Leave a Message? Date: documented in this encounter Plan of Treatment Not on file documented as of this encounter Visit Diagnoses Not on filedocumented in this encounter
--- OUTSIDE RECORDS SUMMARY | 2025-06-11 08:02 | XMS_ITS | Encounter Summary ---
Author Organization [facility] Address [address] [place] [address] Care Team Providers Care Tour Conductor Name Role Phone Valentin Daniel MD Primary Care Provider [phone] Encounter Details Date Type Department Care Team (Late st Contact Info) Description 05/11/2025 Results Follow-Up [facility] Medicine Specialties [address], [address] [place] [address] Angela Todd, TERRITORY DEVELOPMENT MANAGER [address] [place] [address] Social History Tobacco Use Types [...] Info) Description 10/30/2025 8:00 AM EST Consult [facility] [address], [address] [place] [address] [place] Tillman MD [address] [place] [address] 11/11/2025 12:50 PM EST Office Visit [facility] Medicine Specialties [address], [address] [place] [address] Angela Todd APRN [address] [place] [address] documented as of this encounter [...] documented as of this encounter Care Teams Tour Conductor Relationship Specialty Start Date End Date Valentin Daniel MD PCP - General 09/18/22 documented as of this encounter
--- OUTSIDE RECORDS SUMMARY | 2025-06-11 08:02 | XMS_ITS | Referral Summary ---
Author Organization [facility] ([place], [place], [place], [place]) Address [address] [place] [address] Care Team Providers Care Roadmaster Name Role Phone Unavailable Primary Care Provider [...]
--- OUTSIDE RECORDS SUMMARY | 2025-06-11 08:02 | XMS_ITS | Encounter Summary ---
Author Organization [employer] ([place], [place], [place], [place]) Address [address] [place] [address] Care Team Providers Care Behavior Support Specialist Name Role Phone Unavailable Primary Care Provider Unavailabl e Encounter Details Date Type Department Care Team (Late st Contact Info) Description 06/22/2021 Transcribed Document [facility] [place] [place] Family Medicine [facility] [place] [address] ProviderRikki MD [address] [place] [phone] Social History Tobacco Use Types Packs/Day Years [...]
--- OUTSIDE RECORDS SUMMARY | 2025-06-11 08:02 | XMS_ITS | Encounter Summary ---
Author Organization [employer] ([place], [place], [place], [place]) Address [address] [place] [address] Care Team Providers Care Wet Cleaner Machine Name Role Phone Unavailable Primary Care Provider Unavailabl e Encounter Details Date Type Department Care Team (Late st Contact Info) Description 06/22/2021 Transcribed Document [facility] Family Medicine [facility] [place] [address] ProviderRikki MD [address] [place] [address] [phone] Social History Tobacco Use Types Packs/Day Years [...] had a heart cath done by her parking worker in [place] in February, she did not have any [...] EDT Height Source Stated Height Entry Format [place] Height/Length, AUSTRALIAN (ft) 5 ft Height/Length AU[place] 3 Inch CLINICALHEIGHT 160.02 cm [place] Body Weight 52.02 kg Weight Source, ED Critical estimated dosing weight Weight Entry Format [place] Weight Greek lb 220 lb CLINICALWEIGHT 100 kg Body [...] Triage: ED C-SSRS: ED Clinical Reconciliation: ED coil cutter: EKG: Normal Saline Flush: 10 mL, IV [...] % 30.8 % Lymph # 3.02 x10(3)/uL [place] % 5.3 % [place] # 0.52 K/uL Eos % 2.4 % [...]
--- OUTSIDE RECORDS SUMMARY | 2025-06-11 08:03 | XMS_ITS | Encounter Summary ---
Author Organization [employer] ([place], [place], [place], [place]) Address [address] [place] [address] Care Team Providers Care Brainer Name Role Phone Unavailable Primary Care Provider Unavailabl e Encounter Details Date Type Department Care Team (Late st Contact Info) Description 06/21/2021 Transcribed Document [facility] Family Medicine [facility] [place] [address] ProviderRikki MD [address] [place] [address] [phone] Social History Tobacco Use Types Packs/Day Years [...] Communication Barrier : None Primary Language : Italian Any Spiritual/Cultural Needs or Requests : No [...]
--- OUTSIDE RECORDS SUMMARY | 2025-06-11 08:03 | XMS_ITS | Encounter Summary ---
Author Organization [employer] ([place], [place], [place], [place]) Address [address] [place] [address] Care Team Providers Care Plastic Card Grader Cardroom Name Role Phone Unavailable Primary Care Provider Unavailabl e Encounter Details Date Type Department Care Team (Late st Contact Info) Description 06/21/2021 Transcribed Document [facility] Family Medicine [facility] [place] [address] ProviderRikki MD [address] [place] [address] [phone] Social History Tobacco Use Types Packs/Day Years [...] EDT Performed On: 06/21/2021 22:09 EDT by Jasmian Rao RN ED Triage Across the Room Chief Complaint : pt c/o chest pain X 15 minutes. pt states standing up makes pain worse. pt had heart cath done in February and has hx of heart failure. Triage Date/Time : 06/21/2021 22:09 EDT Jasmina Rao RN - 06/21/2021 22:09 EDT DCP GENERIC CODE Tracking Acuity : 2 - Emergent Tracking Group : [facility] ED Jasmina Rao RN - 06/21/2021 22:09 [...] PNED ; Probability: 0 ; Diagnosis Code: [id number] ED Height and Weight Height Source : Stated Height Entry Format : [place] Height, Feet : 5 ft(Converted to: 152 cm, 60 Inch) Height, Inches : 3 Inch(Converted to: 0 ft 3 Inch, 7.62 cm) Clinical Height : 160.02 cm Weight Source, ED : Critical estimated dosing weight Weight Entry Format : [place] Weight, Pounds : 220 lb Clinical Dosing Weight : 100 kg Body Surface Area (BSA) : 2.02 m2 Body Mass Index : 39.1 kg/m2 ([place]) [place] Body Weight (IBW) : 52.02 kg Jasmina Rao RN - 06/21/2021 22:09 EDT documented in this encounter Plan of Treatment Not on file documented as of this encounter Visit Diagnoses Not on filedocumented in this encounter
--- OUTSIDE RECORDS SUMMARY | 2025-06-11 08:03 | XMS_ITS | Encounter Summary ---
Author Organization [email or web address] ([place], [place], [place], [place]) Address [address] [place] [address] Care Team Providers Care Director Of Creative Services Name Role Phone Unavailable Primary Care Provider Unavailabl e Encounter Details Date Type Department Care Team (Late st Contact Info) Description 06/21/2021 Transcribed Document [facility] Family Medicine [address] [place] [address] ProviderRikki MD [address] [place], [place] [phone] Social History Tobacco Use Types Packs/Day Years [...] Historical ProviderMD - 06/21/2021 9:55 PM CDT [place] Suicide Severity Rating Scale (C-SSRS) Entered On: 06/21/2021 22:29 EDT Performed On: 06/21/2021 22:27 EDT by Aruna Garcia [place] Suicide Severity Rating Scale (C-SSRS) CSSRS Past [...]
--- OUTSIDE RECORDS SUMMARY | 2025-06-11 08:03 | XMS_ITS | Encounter Summary ---
Author Organization [employer] ([place], [place], [place], [place]) Address [address] [place] [address] Care Team Providers Care Peoplesoft Analyst Name Role Phone Unavailable Primary Care Provider Unavailabl e Encounter Details Date Type Department Care Team (Late st Contact Info) Description 06/03/2019 Transcribed Document [facility] Family Medicine [facility] [place] [address] ProviderRikki MD [address] [place] [id number] Social History Tobacco Use Types Packs/Day [...] Montoya MD - 06/03/2019 2:51 PM CDT [facility] [place] [address] KASSI KONG :1970 Visit Time:06/03/2019 Your Visit Summary Your Care Team Admitting Physician - DRE POWER MARK, MD Attending Physician - MARIEL MCCRAY MD Primary Care Physician - ALVARADO STILES (REF), -[facility] Referring Physician - MARIEL MCCRAY MD [...] Care Provider in the future. Where: [place] [place] [address]- Allergies SUMAtriptan (Other Anaphylactic Shock, Other Anaphylactic [...] range between ( 0.0 and 7.0 ) [place] #: 0.44 K/uL -- Normal range between ( 0.16 and 1.00 ) Eos #: 0.28 x10(3)/uL -- Normal range between ( 0.00 and 0.80 ) [place] %: 5.2 % -- Normal range between [...] ) Urine Bilirubin Dipstick: Negative Urine Specific [place]: 1.021 -- Normal range between ( [...] stand. This can reduce dizziness. ??? Take vlwd-isz-ntectjc and prescription medicines only as told by [...] 10/01/2006 Document Revised: 03/08/2017 Document Reviewed: 06/14/2016 Joosy Interactive Patient Education ?? 2018 [employer] Head Injury, Adult There are many [...] Ask your health care provider for a izqx-si-lndb plan for gradually returning to activities. ??? [...] your friends, family, a trusted colleague, and workers compensation attorney about your injury, symptoms, and restrictions. Have them watch for any new or worsening problems. General instructions ??? Take fqkl-cyy-pdqjpmj and prescription medicines only as told by [...] 04/10/2017 Elsevier Interactive Patient Education ?? 2019 [employer]. Contusion A contusion is a deep [...] This is often called the RICE strategy. Dwyn-cwr-vrdqvyh anti-inflammatory medicines may also be recommended for [...] are sitting or lying down. ??? Take xtrc-ymd-voxiqax and prescription medicines only as told by [...] 07/11/2006 Document Revised: 02/08/2017 Document Reviewed: 02/16/2016 Joosy Interactive Patient Education ?? 2019 [employer] Concussion, Adult A concussion is a [...] are taking any medicines, including prescription medicines, xapd-tki-pxuszsg medicines, and natural remedies. Some medicines, such [...] returning to activities. General instructions ??? Take rcsi-xxd-evlvapg and prescription medicines only as told by [...] Tell your teachers, school nurse, school counselor, college football coach, head athletic trainer, or workers compensation attorney about your injury, symptoms, and restrictions. Tell [...] 12/21/2004 Document Revised: 09/11/2017 Document Reviewed: 09/11/2017 Joosy Interactive Patient Education ?? 2019 Jo[employer] Inc. Emergency Awareness and Preventative Care STROKE [...] Assistance with quitting is available by contacting 8-061-WLKF-NOW. This is a free resource providing counseling, [...] was given the opportunity to ask questions. Patient/Dental Associate Name: Patient/Dental Associate Signature: Relationship to Patient: Clinician/Hospital Dental Associate Signature: Please Provide a Telephone Number Where You Can Be Reached: Is it Permissible To Leave a Message? Date: Electronically signed by Doe, Giacomo Conversion Automatic Equipment Technician Cerner at 01/28/2023 11:08 PM CDT documented in this encounter Plan of Treatment Not on file documented as of this encounter Visit Diagnoses Not on filedocumented in this encounter
--- OUTSIDE RECORDS SUMMARY | 2025-06-11 08:03 | XMS_ITS | Encounter Summary ---
Author Organization [employer] ([place], [place], [place], [place]) Address [address] [place] [address] Care Team Providers Care Hand Trucker Name Role Phone Unavailable Primary Care Provider Unavailabl e Encounter Details Date Type Department Care Team (Late st Contact Info) Description 06/03/2019 Transcribed Document [facility] Family Medicine [facility] [place] [address] ProviderRikki MD [address] [place] [address] [id number] Social History Tobacco Use Types Packs/Day Years [...]
--- OUTSIDE RECORDS SUMMARY | 2025-06-11 08:03 | XMS_ITS | Encounter Summary ---
Author Organization [employer] ([place], [place], [place], [place]) Address [address] [place] [address] Care Team Providers Care Field Installer Name Role Phone Unavailable Primary Care Provider Unavailabl e Encounter Details Date Type Department Care Team (Late st Contact Info) Description 06/03/2019 Transcribed Document [facility] Family Medicine [facility] [place] [address] ProviderRikki MD [address] [place] [address] [phone] Social History Tobacco Use Types Packs/Day Years [...] 06/03/2019 15:02 EDT Electronically signed by Doe [facility] Conversion Surgical Garment Inspector Cerner at 01/28/2023 11:05 PM CDT documented in this encounter Plan of Treatment Not on file documented as of this encounter Visit Diagnoses Not on filedocumented in this encounter
--- OUTSIDE RECORDS SUMMARY | 2025-06-11 08:03 | XMS_ITS | Encounter Summary ---
Author Organization [facility] Address [address] [place] [address] Care Team Providers Care Plush Finisher Name Role Phone Valentin Daniel MD Primary Care Provider [phone] Encounter Details Date Type Department Care Team (Latest Contact Info) Description 02/05/2025 Community [facility] Community [facility] [address] [place] [address] Valentin Daniel MD [address] [place] [address] Polyneuropathy (Primary Dx); Foot drop, left foot [...] Consult [place] [facility] [address] [place] [address] Sim Tillman MD [address] [place] [address] 11/11/2025 12:50 PM EST Office Visit [place] [facility] [address] [place] [address] Angela Todd, CLIENT SERVICES COORDINATOR [address] [facility] [address] [place] [address] documented as of this encounter [...] documented as of this encounter Care Teams Plush Finisher Relationship Specialty Start Date End Date Valentin Daniel MD PCP - General 09/18/22 documented as of this encounter
--- OUTSIDE RECORDS SUMMARY | 2025-06-11 08:03 | XMS_ITS | Encounter Summary ---
Author Organization [employer] ([place], [place], [place], [place]) Address [address] [place] [address] Care Team Providers Care Fire Alarm Operator Name Role Phone Unavailable Primary Care Provider Unavailabl e Encounter Details Date Type Department Care Team (Late st Contact Info) Description 06/21/2021 Transcribed Document [facility] Family Medicine [address] [place] [address] ProviderRikki MD [address] [place], [place] [phone] Social History Tobacco Use Types Packs/Day Years [...]
--- OUTSIDE RECORDS SUMMARY | 2025-06-11 08:03 | XMS_ITS | Encounter Summary ---
Author Organization [employer] ([place], [place], [place], [place]) Address [address] [place] [address] Care Team Providers Care Simulation Tech Name Role Phone Unavailable Primary Care Provider Unavailabl e Encounter Details Date Type Department Care Team (Late st Contact Info) Description 06/03/2019 Transcribed Document [facility] Family Medicine [address] [place] [address] ProviderRikki MD [address] [place], [place] [phone] Social History Tobacco Use Types Packs/Day Years [...] Communication Barrier : None Primary Language : Venezuelan Any Spiritual/Cultural Needs or Requests : No [...] - 06/03/2019 11:10 EDT Electronically signed by [facility] Conversion Case Management Specialist Cerner at 01/28/2023 10:51 PM CDT documented in this encounter Plan of Treatment Not on file documented as of this encounter Visit Diagnoses Not on filedocumented in this encounter
--- OUTSIDE RECORDS SUMMARY | 2025-06-11 08:03 | XMS_ITS | Encounter Summary ---
Author Organization [facility] Address [address] [place] [address] Care Team Providers Care Etcher Machine Name Role Phone Valentin Daniel MD Primary Care Provider [phone] Reason for Referral * Consultation (Routine) - Authorized Specialty Diagnoses / Procedures Referred By Contac t Referred To Contact Neurology Diagnoses Left foot drop Mechanical problems with limbs Polyneuropathy Valentin Daniel MD [address] [place] [phone] Phone: tel: fax: Referral ID Status Reason Start Date Expiration Date Visits Requested Visits Authorized [id number] Authorized Specialty Services Required 02/16/2025 08/18/2026 1 1 Encounter Details Date Type Department Care Team (Late st Contact Info) Description 02/16/2025 Community [facility] [address] [place] [address] Valentin Daniel MD [address] [place] [phone] Left foot drop (Primary Dx); Mechanical [...] Info) Description 10/30/2025 8:00 AM EST Consult [facility] [address] [place] [address] Sim Tillman MD [address] [place] [address] 11/11/2025 12:50 PM EST Office Visit [facility] Medicine Specialties [address] [place] [address] Angela Todd APRN [address] [place] [address] Scheduled Referrals Name Type Priority [...] documented as of this encounter Care Teams Etcher Machine Relationship Specialty Start Date End Date Valentin Daniel MD PCP - General 09/18/22 documented as of this encounter
--- OUTSIDE RECORDS SUMMARY | 2025-06-11 08:03 | XMS_ITS | Encounter Summary ---
Author Organization [employer] ([place], [place], [place], [place]) Address [address] [place] [address] Care Team Providers Care Delivery Truck Driver Name Role Phone Unavailable Primary Care Provider Unavailabl e Encounter Details Date Type Department Care Team (Late st Contact Info) Description 06/03/2019 Transcribed Document [facility] Family Medicine [facility] [place] [address] ProviderRikki MD [address] [place] [address] Social History Tobacco Use Types Packs/Day [...] Montoya MD - 06/03/2019 2:51 PM CDT [facility] [place] [address] KASSI KONG :1970 Visit Time:06/03/2019 Your Visit Summary Your Care Team Admitting Physician - DRE POWER MARK, MD Attending Physician - MARIEL MCCRAY MD Primary Care Physician - ALVARADO STILES (REF), -[facility] Referring Physician - MARIEL MCCRAY [...] in the future. Where: [address] [place] [address]- Allergies SUMAtriptan (Other Anaphylactic Shock, Other Anaphylactic [...] range between ( 0.0 and 7.0 ) [place] #: 0.44 K/uL -- Normal range between ( 0.16 and 1.00 ) Eos #: 0.28 x10(3)/uL -- Normal range between ( 0.00 and 0.80 ) [place] %: 5.2 % -- Normal range between [...] ) Urine Bilirubin Dipstick: Negative Urine Specific [place]: 1.021 -- Normal range between ( 1.005 [...] stand. This can reduce dizziness. ??? Take sitv-gnp-evkmjrk and prescription medicines only as told by [...] 10/01/2006 Document Revised: 03/08/2017 Document Reviewed: 06/14/2016 Calc[employer]is Interactive Patient Education ?? 2018 [employer] Inc. Head Injury, Adult There are many [...] Ask your health care provider for a wqhx-in-whgd plan for gradually returning to activities. ??? [...] your friends, family, a trusted colleague, and electrical linesworker about your injury, symptoms, and restrictions. Have them watch for any new or worsening problems. General instructions ??? Take jjqg-qjw-lvxfvwl and prescription medicines only as told by [...] 04/10/2017 Elsevier Interactive Patient Education ?? 2019 [employer] Contusion A contusion is a deep [...] This is often called the RICE strategy. Fjmp-yos-lgiyxyb anti-inflammatory medicines may also be recommended for [...] are sitting or lying down. ??? Take ihwl-vwo-zwnfrty and prescription medicines only as told by [...] 07/11/2006 Document Revised: 02/08/2017 Document Reviewed: 02/16/2016 Calcivis Interactive Patient Education ?? 2019 [employer]. Concussion, Adult A concussion is a [...] are taking any medicines, including prescription medicines, daod-ivv-ihogegf medicines, and natural remedies. Some medicines, such [...] returning to activities. General instructions ??? Take lzoj-gci-unqbwnv and prescription medicines only as told by [...] Tell your teachers, school nurse, school counselor, other sports coach or instructor, green jobs trainer, or electrical linesworker about your injury, symptoms, and restrictions. Tell [...] 12/21/2004 Document Revised: 09/11/2017 Document Reviewed: 09/11/2017 Calcivis Interactive Patient Education ?? 2019 [employer] Inc. Emergency Awareness and Preventative Care STROKE [...] Assistance with quitting is available by contacting 7-810-QQFN-NOW. This is a free resource providing counseling, [...] given the opportunity to ask questions. Patient/Manager Stylist Name: Patient/Manager Stylist Signature: Relationship to Patient: Clinician/Hospital Manager Stylist Signature: Please Provide a Telephone Number Where You Can Be Reached: Is it Permissible To Leave a Message? Date: documented in this encounter Plan of Treatment Not on file documented as of this encounter Visit Diagnoses Not on filedocumented in this encounter
--- OUTSIDE RECORDS SUMMARY | 2025-06-11 08:03 | XMS_ITS | Clinical Summary ---
Author Organization [facility] Address [address] [place] [address] Care Team Providers Care Donor Specialist Name Role Phone Valentin Daniel MD Primary Care Provider [phone] Allergies Active Allergy Reactions Criticality Noted Date [...] cream 01/21/20 21 Active ergocalciferol 1.25 MG (05493 UT) capsule TAKE ONE CAPSULE BY MOUTH EVERY WEEK DIRECTED 03/01/20 21 Active HYDROcodone-acetam inophen (Scuddy) 10-325 MG tablet TAKE ONE TABLET BY [...] MG tablet 01/28/20 24 Active nystatin (Mycostatin) 612590 UNIT/GM powder 02/01/20 24 Active omeprazole (PriLOSEC) [...] as needed for sleep. 04/22/20 25 Active hydroxychloroquine (Plaquenil) 200 MG tablet Take 1 tablet by mouth 2 times a day. 180 tablet 5 05/06/20 25 Active Resolved Problems Problem Noted Date [...] disease) 07/16/2024 07/16/2024 Calcaneal spur, left 07/16/2024 Calculus of ureterovesical junction (UVJ) 07/16/2024 07/16/2024 [...] Type Department Care Team Description 05/13/2025 Refill [facility] [address] [place] [address] Angela Todd, TICKET MARKER 05/11/2025 Results Follow-Up [facility] [address] [place] [address] Angela Todd, TICKET MARKER 05/06/2025 1:20 PM EDT Office Visit [facility] [address] [place] [address] Angela Todd, TICKET MARKER Positive RENETTA (antinuclear antibody) (Primary Dx); High [...] [facility] [address], [address] [place] [address] Sim Tillman MD [address] [place] [address] 11/11/2025 12:50 PM EST Office Visit [facility] [address] [place] [address] Angela Todd APRN [address] [place] [address] Health Maintenance Due Date Last [...] (2 - Td or Tdap) 06/20/2021 06/20/2011 [id number] Vaccine ( season) 2024 07/14/2021, 11/17/2020, 10/28/2020 [...] APRN LAB URINE ORDERABLES Veronica syed Result [facility] [address] [place] [address] * Protein, Random, Urine with Creatinine (05/06/2025 2:30 PM EDT) Protein, Urine 20 mg/dL 05/06/2025 4:34 PM EDT [facility] Creatinine, Urine 141 mg/dL 05/06/2025 4:34 PM EDT [facility] Protein/Creatin ine Ratio 0.1 mg/mg Creat 05/06/2025 4:34 PM EDT [facility] Urine Urine specimen obtained by clean catch procedure / Unknown Non-blood Collection / Unknown 05/06/2025 2:30 PM EDT 05/06/2025 2:30 PM EDT us Angela Todd APRN LAB URINE ORDERABLES Veronica kunal Result [facility] [address] [place] [address] * (ABNORMAL) Urinalysis with reflex microscopic (Culture NOT Included) (05/06/2025 2:30 PM EDT) Color, Urine Dark Yellow LAB URINALYSIS - AUTOMATED METHOD 05/06/2025 4:28 PM EDT [facility] Clarity, Urine Cloudy LAB URINALYSIS - AUTOMATED METHOD 05/06/2025 4:28 PM EDT [facility] Spec Orcas, Urine 1.026 1.005 - 1.030 LAB URINALYSIS - AUTOMATED METHOD 05/06/2025 4:28 PM EDT [facility] pH, Urine 5.5 5.0 - 8.0 LAB URINALYSIS - AUTOMATED METHOD 05/06/2025 4:28 PM EDT [facility] Protein, Urine 30(A) Negative mg/dL LAB URINALYSIS - AUTOMATED METHOD 05/06/2025 4:28 PM EDT [facility] Glucose, Urine >=1000(A) Negative mg/dL LAB URINALYSIS - AUTOMATED METHOD 05/06/2025 4:28 PM EDT [facility] Ketones, Urine Trace(A) Negative mg/dL LAB URINALYSIS - AUTOMATED METHOD 05/06/2025 4:28 PM EDT [facility] Blood, Urine Large(A) Negative LAB URINALYSIS - AUTOMATED METHOD 05/06/2025 4:28 PM EDT [facility] Bilirubin, Urine Small(A) Negative LAB URINALYSIS - AUTOMATED METHOD 05/06/2025 4:28 PM EDT [facility] Urobilinogen, Urine 0.2 0.2 to 1.0 mg/dL LAB URINALYSIS - AUTOMATED METHOD 05/06/2025 4:28 PM EDT [facility] Leukocytes, Urine Negative Negative LAB URINALYSIS - AUTOMATED METHOD 05/06/2025 4:28 PM EDT [facility] Nitrite, Urine Negative Negative LAB URINALYSIS - AUTOMATED METHOD 05/06/2025 4:28 PM EDT [facility] RBC, Urine >50(A) 0 to 3 /HPF LAB URINALYSIS - AUTOMATED METHOD 05/06/2025 4:28 PM EDT [facility] WBC, Urine 6 - 10(A) 0 to 5 /HPF LAB URINALYSIS - AUTOMATED METHOD 05/06/2025 4:28 PM EDT [facility] Squamous Epithelial Cells 0 - 2 0 to 5 /HPF LAB URINALYSIS - AUTOMATED METHOD 05/06/2025 4:28 PM EDT [facility] Hyaline Casts 0 - 2 0 to 5 /LPF LAB URINALYSIS - AUTOMATED METHOD 05/06/2025 4:28 PM EDT [facility] Bacteria, Urine Negative Negative LAB URINALYSIS - AUTOMATED METHOD 05/06/2025 4:28 PM EDT [facility] Renal Tubular Cells Present Absent 05/06/2025 4:28 PM EDT [facility] Transitional Epithelial Cells Present Absent 05/06/2025 4:28 PM EDT [facility] Calcium Oxalate Crystals Present Absent 05/06/2025 4:28 PM EDT [facility] Urine Urine specimen obtained by clean catch procedure / Unknown Non-blood Collection / Unknown 05/06/2025 2:30 PM EDT 05/06/2025 2:30 PM EDT Narrative [facility] - 05/06/2025 4:28 PM EDT Performed by manual method Angela Todd APRN LAB URINE ORDERABLES Veronica syed Result [facility] [address] [place] [address] * Double-Stranded DNA (dsDNA) Antibody, IgG by IFA (05/06/2025 2:08 PM EDT) Double-Strande d DNA (dsDNA) Ab IgG IFA <1:10 <1:10 05/08/2025 11:43 PM EDT [facility] ([facility]) Blood Venous blood specimen / Unknown Venipuncture / Unknown 05/06/2025 2:08 PM EDT 05/06/2025 2:09 PM EDT Narrative [facility] ([facility]) - 05/08/2025 11:43 PM EDT INTERPRETIVE INFORMATION: [...] recommendations for testing may be found at [email or web address]-yvbtat-[email or web address]. Performed By: [facility] [address] [place] [address] Photographers' Model: Abundio Urias MD, PhD CLIA Number: [id number] Angela Todd APRN LAB BLOOD ORDERABLES Veronica syed Result [facility] ([facility]) [address] [place] [address] * Creatinine, Plasma (05/06/2025 2:08 PM EDT) Creatinine, Plasma 0.62 0.60 - 1.10 mg/dL 05/06/2025 3:35 PM EDT [facility] eGFRcr 106.0 mL/min/1.7 3m*2 05/06/2025 3:35 PM EDT [facility] Comment:Reported eGFRcr in m L/min/1.73m2 is based the CKD-EPI 2020 equation that does not use a race coefficient. Blood Venous blood specimen / Unknown Venipuncture / Unknown 05/06/2025 2:08 PM EDT 05/06/2025 2:09 PM EDT Angela Todd TICKET MARKER LAB BLOOD ORDERABLES Veronica syed Result [facility] [address] [place] [address] * (ABNORMAL) Sedimentation Rate, Automated (05/06/2025 2:08 PM EDT) Pathologist [facility] Sedimentation Rate 38(H) <30 mm/hr 2024 4:06 PM EDT [facility] Blood Venous blood specimen / Unknown Venipuncture / Unknown 05/06/2025 2:08 PM EDT 05/06/2025 2:09 PM EDT Angela Todd APRN LAB BLOOD ORDERABLES Veronica seyd Result Performing Organization Address City/[facility]/ZIP Co de Phone Number [facility] [address] [place] [address] * (ABNORMAL) CBC and Differential (05/06/2025 2:08 PM EDT) Pathologist [facility] WBC Count 9.44 3.70 - 10.30 10*3/uL LAB HEMATOLOGY METHOD 05/06/2025 3:39 PM EDT [facility] RBC Count 5.15 3.90 - 5.20 10*6/uL LAB HEMATOLOGY METHOD 05/06/2025 3:39 PM EDT [facility] HGB 14.4 11.2 - 15.7 g/dL LAB HEMATOLOGY METHOD 05/06/2025 3:39 PM EDT [facility] HCT 44.7 34.0 - 45.0 % LAB HEMATOLOGY METHOD 05/06/2025 3:39 PM EDT [facility] Platelet Count 337 155 - 369 10*3/uL LAB HEMATOLOGY METHOD 05/06/2025 3:39 PM EDT [facility] MCV 87 79 - 98 fL LAB HEMATOLOGY METHOD 05/06/2025 3:39 PM EDT [facility] MCH 28.0 26.0 - 32.0 pg LAB HEMATOLOGY METHOD 05/06/2025 3:39 PM EDT [facility] MCHC 32.2 30.7 - 35.5 g/dL LAB HEMATOLOGY METHOD 05/06/2025 3:39 PM EDT [facility] RDW 13.9 11.5 - 14.5 % LAB HEMATOLOGY METHOD 05/06/2025 3:39 PM EDT [facility] MPV 11.9 8.8 - 12.5 fL LAB HEMATOLOGY METHOD 05/06/2025 3:39 PM EDT [facility] nRBC 0.0 <=0.0 per 100 WBCs LAB HEMATOLOGY METHOD 05/06/2025 3:39 PM EDT [facility] Differential Type Automated LAB HEMATOLOGY METHOD 05/06/2025 3:39 PM EDT [facility] Neutrophils % 56 % LAB HEMATOLOGY METHOD 05/06/2025 3:39 PM EDT [facility] Lymphocytes % 32 % LAB HEMATOLOGY METHOD 05/06/2025 3:39 PM EDT [facility] Monocytes % 6 % LAB HEMATOLOGY METHOD 05/06/2025 3:39 PM EDT [facility] Eosinophils % 5 % LAB HEMATOLOGY METHOD 05/06/2025 3:39 PM EDT [facility] Basophils % 1 % LAB HEMATOLOGY METHOD 05/06/2025 3:39 PM EDT [facility] Immature Granulocytes % 0 % LAB HEMATOLOGY METHOD 05/06/2025 3:39 PM EDT [facility] Neutrophils Absolute 5.32 1.60 - 6.10 10*3/uL LAB HEMATOLOGY METHOD 05/06/2025 3:39 PM EDT [facility] Lymphocytes Absolute 3.00 1.20 - 3.90 10*3/uL LAB HEMATOLOGY METHOD 05/06/2025 3:39 PM EDT [facility] Monocytes Absolute 0.56 0.30 - 0.90 10*3/uL LAB HEMATOLOGY METHOD 05/06/2025 3:39 PM EDT [facility] Eosinophils Absolute 0.43 0.00 - 0.50 10*3/uL LAB HEMATOLOGY METHOD 05/06/2025 3:39 PM EDT [facility] Basophils Absolute 0.11(H) 0.00 - 0.10 10*3/uL LAB HEMATOLOGY METHOD 05/06/2025 3:39 PM EDT [facility] Immature Granulocytes Absolute 0.02 0.00 - 0.06 10*3/uL LAB HEMATOLOGY METHOD 05/06/2025 3:39 PM EDT [facility] Blood Venous blood specimen / Unknown Venipuncture / Unknown 05/06/2025 2:08 PM EDT 05/06/2025 2:09 PM EDT Narrative [facility] - 05/06/2025 3:39 PM EDT Therapeutic decision making should be based on absolute values, rather than percentages. us Angela Todd APRN LAB BLOOD ORDERABLES Veronica l Result [facility] [address] [place] [address] * C3 Complement (05/06/2025 2:08 PM EDT) C3 Complement 149 84 - 166 mg/dL 05/06/2025 3:30 PM EDT [facility] Blood Venous blood specimen / Unknown Venipuncture / Unknown 05/06/2025 2:08 PM EDT 05/06/2025 2:09 PM EDT us Angela Todd APRN LAB BLOOD ORDERABLES Veronica l Result Performing Organization Address City/[facility]/[place] [address] * C4 Complement (05/06/2025 2:08 PM EDT) C4 Complement 25 13 - 36 mg/dL 05/06/2025 3:30 PM EDT [facility] Blood Venous blood specimen / Unknown Venipuncture / Unknown 05/06/2025 2:08 PM EDT 05/06/2025 2:09 PM EDT us Angela Todd APRN LAB BLOOD [place] [address] * C-Reactive Protein, Plasma (05/06/2025 2:08 PM EDT) CRP, Plasma <3.0 <=8.0 mg/L 05/06/2025 3:35 PM EDT [facility] Blood Venous blood specimen / Unknown Venipuncture / Unknown 05/06/2025 2:08 PM EDT 05/06/2025 2:09 PM EDT Narrative [facility] - 05/06/2025 3:35 PM EDT This CRP test is appropriate for assessment of infection, systemic inflammation and/or tissue injury. To assess cardiovascular disease risk order high sensitivity CRP (CRPH). Angela Todd APRN LAB BLOOD ORDERABLES Veronica l Result Performing Organization Address City/State/[facility] Co de Phone Number [facility] [address] [place] [address] * (ABNORMAL) Hepatic Function Panel (05/06/2025 2:08 PM EDT) Conjugated Bilirubin, Plasma <0.2 <=0.3 mg/dL 05/06/2025 3:35 PM EDT [facility] Alkaline Phosphatase, Plasma 107(H) 35 - 104 U/L 05/06/2025 3:35 PM EDT [facility] Total Bilirubin, Plasma 0.2 0.2 - 1.1 mg/dL 05/06/2025 3:35 PM EDT [facility] Albumin, Plasma 3.9 3.5 - 5.2 g/dL 05/06/2025 3:35 PM EDT [facility] Total Protein 7.2 6.3 - 7.9 g/dL 05/06/2025 3:35 PM EDT [facility] ALT, Plasma 43(H) 10 - 35 U/L 05/06/2025 3:35 PM EDT [facility] AST, Plasma 35 10 - 35 U/L 05/06/2025 3:35 PM EDT [facility] Blood Venous blood specimen / Unknown Venipuncture / Unknown 05/06/2025 2:08 PM EDT 05/06/2025 2:09 PM EDT Angela Todd APRN LAB BLOOD ORDERABLES Veronica l Result [facility] [address] [place] [address] from Last 3 Months Additional Health Concerns Infection Onset Date 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
--- OUTSIDE RECORDS SUMMARY | 2025-06-11 08:03 | XMS_ITS | Encounter Summary ---
Author Organization [employer] ([place], [place], [place], [place]) Address [address] [place] [address] Care Team Providers Care Artist Woodblock Name Role Phone Unavailable Primary Care Provider Unavailabl e Encounter Details Date Type Department Care Team (Late st Contact Info) Description 06/11/2019 Transcribed Document [facility] [place] [address] [place] [address] ProviderRikki MD [address], [place] [address] Social History Tobacco Use Types Packs/Day Years [...]
--- OUTSIDE RECORDS SUMMARY | 2025-06-11 08:03 | XMS_ITS | Clinical Summary ---
Author Organization [facility] Address [address] [place] [address] Care Team Providers Care Wall And Floor Tiler Name Role Phone Provider, No Known Primary [...] 01/16/2022, 07/27/2021 Insurance COMMERCIAL A[employer] Care Teams Wall And Floor Tiler Relationship Specialty Start Date End Date Provider, [place] [address] PCP - General 08/09/23
--- OUTSIDE RECORDS SUMMARY | 2025-06-11 08:03 | XMS_ITS | Encounter Summary ---
Author Organization [employer] ([place], [place], [place], [place]) Address [address] [place] [address] Care Team Providers Care Weasand Trimmer Name Role Phone Unavailable Primary Care Provider Unavailabl e Encounter Details Date Type Department Care Team (Late st Contact Info) Description 06/03/2019 Transcribed Document [facility] [place] Family Medicine [facility] [address] ProviderRikki MD [address] [place] [id number] Social History Tobacco Use Types Packs/Day Years [...] EDT Height Source Stated Height Entry Format Murray Height/Length, LIBYAN (ft) 5 ft Height/Length LIBYAN 3 Inch CLINICALHEIGHT 160.02 cm [place] Body Weight 52.02 kg Weight Source, ED Critical estimated dosing weight Weight Entry Format Murray Weight [place] lb 220 lb CLINICALWEIGHT 100 kg Body [...] Hand pain, wrist pain, fracture, sprain, contusion, NV, head injury, concussion,. Orders Include Previous Orders (Selected) Inpatient Orders Ordered EKG: Completed .Automated Differential: .Urinalysis Microscopic: CBC w/ Auto Diff: CMP Comprehensive Metabolic Panel: CR Hand Min 3 Vws RT: CT Head WO: Cardiac Monitoring: ED Adult Fall Risk Assessment: ED Adult Triage: ED Clinical Reconciliation: ED agency director: Normal Saline Flush: 10 mL, IV Push, [...] Color Yellow Urine Appearance Clear Urine Specific [place] 1.021 Urine pH Dipstick 7.5 Urine Leukocyte [...] % 30.2 % Lymph # 2.54 x10(3)/uL Riley % 5.2 % Riley # 0.44 K/uL Eos % 3.3 % [...] Fall Scale Risk Level 0-24 Low Risk [place] Fall Interventions Adequate lighting, Bed in low position, Call device within reach, Hourly comfort/safety rounds, Non-Slip footwear, Personal items within reach, Reinforced to call for assistance before getting out of bed, Room free of clutter/spills, Upper side-rails up, Wheels locked, Wires/Cords secured Fall Moderate to High Risk Interventions Patient room close to nurses station Communication Barrier None Primary Language [place] Information Obtained From Patient Smoking Status Refused [...] air Height Source Stated Height Entry Format Murray Height/Length, LIBYAN (ft) 5 ft Height/Length LIBYAN 3 Inch CLINICALHEIGHT 160.02 cm [place] Body Weight 52.02 kg Weight Source, ED Critical estimated dosing weight Weight Entry Format Murray Weight [place] lb 220 lb CLINICALWEIGHT 100 kg Body [...] Ambulate Tracking Acuity 3 - Urgent (Modified) Tattoo Artist Needed No Accompanied by Unaccompanied Mode of Arrival Ambulatory 06/03/2019 10:46 EDT Nurse Collect Order Detail 3.00 Nurse Collect Order Detail 3.00 . Radiology results: Radiology Results (Last 48 hours) [id number] -- 06/03/2019 10:45 CR Hand Min 3 [...] Adult, Syncope. Follow up with: ALVARADO STILES (REF)[facility] Within 2 to 3 days Patient [...]
--- OUTSIDE RECORDS SUMMARY | 2025-06-11 08:03 | XMS_ITS | Encounter Summary ---
Author Organization [employer] ([place], [place], [place], [place]) Address [address] [place] [address] Care Team Providers Care Manager Branch Name Role Phone Unavailable Primary Care Provider Unavailabl e Encounter Details Date Type Department Care Team (Late st Contact Info) Description 06/03/2019 Transcribed Document [facility] [place] [address] [place] [address] ProviderRikki MD [address] [place], [place] [id number] Social History Tobacco Use Types Packs/Day Years [...] EDT DCP GENERIC CODE Tracking Group : [facility] ED MARC GREENWOOD RN - 06/03/2019 10:53 [...] Thoughts of Harming/Killing Others : No Oil Plant Operator Needed : No MARC GREENWOOD RN - [...] PNED ; Probability: 0 ; Diagnosis Code: [id number] ED Height and Weight Height Source : Stated Height Entry Format : [place] Height, Feet : 5 ft(Converted to: 152 cm, 60 Inch) Height, Inches : 3 Inch(Converted to: 0 ft 3 Inch, 7.62 cm) Clinical Height : 160.02 cm Weight Source, ED : Critical estimated dosing weight Weight Entry Format : [place] Weight, Pounds : 220 lb Clinical Dosing Weight : 100 kg Body Surface Area (BSA) : 2.02 m2 Body Mass Index : 39.1 kg/m2 (HI) [place] Body Weight (IBW) : 52.02 kg MARC [...]
[2025-06-11 10:33] LABS: PHA INR Fingerstick 2.5 (0.9-1.1)
== END 2025-06-11 13:14 ==
LOC: ACC 08:00
PROVIDERS: PCP Family Medicine; Visit Provider Family Medicine
DX: G45.9 Transient cerebral ischemic attack, unspecified (principal)
CPT/HCPCS: 85610; 99211; G0463

== ENCOUNTER 2025-06-23 12:05 | Outpatient (CLI) | payer OTHER, SELFPAY ==
--- OUTSIDE RECORDS SUMMARY | 2025-05-06 13:20 | XMS_ITS | Encounter Summary ---
Author Organization [facility] Address [address] [place] [address] Care Team Providers Care Costume Rental Clerk Name Role Phone Valentin Daniel MD Primary Care Provider [phone] Reason for Visit * Reason Comments Follow-up Mental status, decre ased Encounter Details Date Type Department Care Team (Latest Contact Info) Description 05/06/2025 1:20 PM EDT [facility] Visit [facility] [address], [address] [place] [address] Angela Todd, ROADMASTER [address] [place] [address] Positive RENETTA (antinuclear antibody) (Primary Dx); High risk medication use; Long-term use of hydroxychloroquine Social History Tobacco Use Types Packs/Day Years Used Date Smoking Tobacco: Never Smokeless Tobacco: Never Alcohol Use Standard Drinks/Week Comments Never 0 (1 standard drink = 0.6 oz pure alcohol) Alcoholic Drinks/day: Never Drank Alcohol PHQ-2 Answer Date Recorded Patient Health Questionnaire-2 Score 0 05/06/2025 AUDIT-C Answer Date Recorded Q1: How often do you have a drink containing alcohol? Never 05/06/2025 Q2: How many drinks containi ng alcohol do you have on a typical day when you are drinking? Patient does not drink Q3: How often do you have si x or more drinks on one occasion? Never 05/06/2025 PHQ-2A Answer Date Recorded Patient Health Questionnaire-2 Score 0 02/13/2023 Comments Unknown Sex and Gender Information Value Date Recorded Sex Assigned at Not on file Legal Sex Female 8:26 PM EDT Gender Identity Not on file Sexual Orientation Not on file documented as of this encounter Last Filed Vital Signs Vital Sign Reading Time Taken Comments Blood Pressure 110/72 05/06/2025 1:17 PM EDT Pulse 64 05/06/2025 1:17 PM EDT Temperature 36.7 C (98.1 F) 05/06/2025 1:17 PM EDT Respiratory Rate 18 05/06/2025 1:17 PM EDT Oxygen Saturation 96% 05/06/2025 1:17 PM EDT Inhaled Oxygen Concentration - - Weight 81.6 kg (180 lb) 05/06/2025 1:17 PM EDT Height 160 cm (5' 3 ) 05/06/2025 1:17 PM EDT Body Mass Index 31.89 05/06/2025 1:17 PM EDT documented in this encounter Functional Status * AUDIT-C Score Answer Date of Assessment Author 0 05/06/2025 1:22 PM EDT Shawn Guzman * Question Answer Date of Assessment Author Q1: How often do you have a drink containing alcohol? Never 05/06/2025 1:22 PM EDT Krissy Guzman Q2: How many drinks containing alcohol do you have on a typical day when you are drinking? Patient does not drink 05/06/2025 1:22 PM EDT Krissy Guzman Q3: How often do you have six or more drinks on one occasion? Never 05/06/2025 1:22 PM EDT Krissy Guzman * Over the past 2 weeks, how often have you been bothered by any of the following problems? Question Answer Date of Assessment Author Little interest or pleasure in doing things Not at all 05/06/2025 1:20 PM EDT Krissy Guzman Feeling down, depressed, or hopeless Not at all 05/06/2025 1:20 PM EDT Krissy Guzman Patient Health Questionnaire -2 Score 0 05/06/2025 1:20 PM EDT Krissy Guzman documented as of this encounter Miscellaneous Notes * Progress Notes - Peyton, Angela Josie, ROADMASTER - 05/06/2025 1:20 PM EDT Kassi Claudio is a 55 y.o. female Chief complaint: here for follow up of Positive RENETTA (antinuclear antibody) [R76.8] Subjective HPI Kassi Claudio is a 55 y.o. female 51 year old white female in clinic for follow-up of possible SLE. PMHx of Acute dermatitis, Chronic back pain, HTN, GERD, Lumbar radiculopathy, Lumbosacral neuritis, Scabies, Sciatica, Brown's Esophagus, C. Diff, Depression Ganglion Cyst, Hiatal Hernia, Heart Murmur, Herpes Zoster, Lyme disease, Leiomyoma of uterus. Past history: + RENETTA (1:80; homogenous). - anti dsDNA. Normal complements. - SSA. - SSB. - Daniels. - [employer]. 10 year history of Raynaud's. Describes blanching. No digit ulcerations. History of multiple blood clots. + LAC x 2. - B2 glycoprotein. - cardiolipin. Rash on chest that is now resolved with use of HCQ. 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 Med hx: Hydroxychloriquine (2018-current) Interim history: Last seen by me 08/07. Pt reports she was seen by her PCP last week, and was told to come to rheumatology. Pt reports having 6 falls over the summer, decreased mental acuity, KAPLAN, increased difficulty in typing, body aches, joint pain in her feet and hips, mood swings, decreased appetite, increased LFT's, BLE edema. She also endorses dropping things, constant fatigue, and worsening vision. Pt continues on hydroxychloriquine. Pt has been on this since 2018. Joint pain and fatigue is worse in the evening. Her mental acuity has affected her ability to work. Pt also has upcoming appt with neurosurgery in regards to chronic back pain. Imaging from 03/07: Bilateral elbows, hips, and SI joints-mild degenerative changes Today (05/06/25): Pt reports she is having increasing falls. A month ago she fell and broke her malleolus. Pt still struggles with fibromyalgia. Currently takes Vida and Lyrica. Denies any blood clots. Continues on hydroxychloriquine. Pt has upcoming eye exam in June. She has had several UTI's and kidney stones since the last visit. She follows with pain management for CBP. She endorses morning stiffness, around 30 minutes. She had XR completed at [facility]. She is following with Dr. Billingsley, orthopedics at [facility]. She denies any SOB, CP Review of Systems Constitutional: Positive for fatigue. Negative for fever. HENT: Negative for mouth sores. Eyes: Negative for pain and redness. Respiratory: Negative for cough and shortness of breath. Cardiovascular: Negative for chest pain. Musculoskeletal: Positive for arthralgias, back pain and myalgias. See HPI Skin: Negative for rash. Neurological: Positive for numbness (chronic parethesia) and headaches. 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 These include bleeding, and joint infection. The patient is on anticoagulation so I stressed the fact that bleeding could be a possibility. The patient understands the potential complications and agreed to the procedure. The area over the left AC joint was localized. T Acute allergic reaction 07/16/2024 Acute CVA (cerebrovascular accident) ([facility]) 07/16/2024 Acute hypokalemia 07/16/2024 This has been repleted and was a postsurgical issue. 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 Antiphospholipid antibody syndrome ([facility]) 10/28/2018 Anxiety 08/18/2015 Atypical angina 07/16/2024 Back pain 06/25/2013 Brown's esophagus without dysplasia Brown's esophagus without dysplasia Bronchitis 07/16/2024 CAD (coronary artery disease) 07/16/2024 Calcaneal spur, left 07/16/2024 Calculus of ureterovesical junction (UVJ) 07/16/2024 Callus of foot 07/16/2024 Cardiac murmur 07/16/2024 CHF (congestive heart failure) ([facility]) 07/16/2024 Close exposure to COVID-19 virus 07/16/2024 Conversions - Other Depression Conversions - Other Hiatal Hernia Conversions - Other Leiomyoma Of The Uterus Conversions - Other Lyme Disease Cough 07/16/2024 COVID-19 07/16/2024 Diastolic dysfunction 07/16/2024 Dizziness 07/16/2024 Dropfoot 07/16/2024 DVT (deep venous thrombosis) ([facility]) 04/04/2016 Dysuria 07/16/2024 Edema 07/16/2024 Enterocolitis due to Clostridium difficile, not specified as recurrent Clostridium difficile diarrhea Environmental and seasonal allergies 07/16/2024 Essential hypertension 11/03/2015 Facial paresthesia 07/16/2024 Fall 07/16/2024 Falling 07/16/2024 Fibromyalgia 11/08/2019 Ganglion, unspecified site Ganglion Gastro-esophageal reflux disease without esophagitis 06/25/2013 GERD with esophagitis 07/16/2024 Heart failure Hyperparathyroidism ([facility]) 07/16/2024 Hypertensive heart disease 07/16/2024 Injury of knee, left 07/16/2024 Insomnia 07/16/2024 Will start amitriptyline 50 mg at at [...] and was normal. Iron deficiency anemia due to chronic blood loss 07/16/2024 Keratosis 07/16/2024 Left ankle instability 07/16/2024 Left leg DVT ([facility]) 07/16/2024 Left leg weakness 07/16/2024 Lesion of nose 07/16/2024 Lumbar nerve root impingement 06/30/2014 Lumbosacral neuritis 04/28/2015 Menopausal and female climacteric states Menopausal syndrome (hot flashes) Methicillin resistant Staphylococcus aureus infection, unspecified site MRSA (methicillin resistant Staphylococcus aureus) Migraine 07/16/2024 Morbid obesity with body mass index (BMI) of 40.0 to 49.9 ([facility]) 07/16/2024 Myalgia 06/27/2018 Other intervertebral disc displacement, lumbosacral region Herniated nucleus pulposus, L5-S1, right Other muscle spasm Trapezius muscle spasm Pain in left shoulder Left shoulder pain Pain of left calf 07/16/2024 Personal history of other diseases of the circulatory system History of cardiac murmur Personal history of other endocrine, nutritional and metabolic disease History of thyroid nodule Personal history of other infectious and parasitic diseases History of herpes zoster Personal history of other medical treatment History of mammogram Personal history of other specified conditions History of chest pain Personal history of other specified conditions History of exertional chest pain Pneumonia 07/16/2024 Post menopausal problems 07/16/2024 Did not want to add a lot more medications. She states she will try and see what the amitriptyline does if it helps with her sleep and possibly with her postmenopausal symptoms. However if not we canconsider SSRIs, complementary therapies could be another option. Postlaminectomy syndrome, not elsewhere classified Postlaminectomy syndrome Postmenopausal atrophic vaginitis 11/23/2016 Raynaud disease 06/27/2018 Retrocalcaneal bursitis (back of heel), right 04/28/2016 Sciatica 07/14/2013 Sinusitis 07/16/2024 Snoring Snoring SOB (shortness of breath) 07/16/2024 Soft tissue infection 03/01/2016 Supratherapeutic INR 07/16/2024 Surgical wound infection 03/01/2016 Suspected soft tissue infection 02/15/2016 Thrombophilia (CMS/HCC) 07/16/2024 Tylenol ingestion 07/16/2024 Uncontrolled pain 07/16/2024 Unsteady gait 07/16/2024 Urinary dribbling 09/28/2016 Urinary incontinence, mixed 11/23/2016 UTI (urinary tract infection) 07/16/2024 Vasomotor symptoms due to menopause 07/16/2024 Yeast infection of the skin 07/16/2024 Past Surgical History: Procedure Laterality Date APPENDECTOMY N/A Appendectomy from [facility] BACK SURGERY N/A Back Surgery from [facility] CARPAL TUNNEL RELEASE N/A Neuroplasty Decompression Median Nerve At Carpal Tunnel from [facility] SECTION, LOW TRANSVERSE N/A Section from [facility] CHOLECYSTECTOMY N/A Cholecystectomy Laparoscopic from [facility] GASTRIC BYPASS HYSTERECTOMY N/A Hysterectomy from [facility] LAPAROSCOPIC DIANELYS FUNDOPLICATION N/A Esophagogastric Fundoplasty Dianelys Fundoplication from [facility] OTHER SURGICAL HISTORY N/A Knee Arthroscopy from [facility] Social History Socioeconomic History Marital status: Spouse name: Not on file Number of children: Not on file Years of education: Not on file Highest education level: Not on file Occupational History Not on file Tobacco Use Smoking status: Never Smokeless tobacco: Never Vaping Use Vaping status: Never Used Substance and Sexual Activity Alcohol use: Never Comment: Alcoholic Drinks/day: Never Drank Alcohol Drug use: Never Sexual activity: Not on file Other Topics Concern Not on file Social History Narrative Working [employer] Marital History - Currently Social Drivers of Health Financial Resource Strain: Not on file Food Insecurity: Not on file Transportation Needs: Not on file Physical Activity: Not on file Stress: Not on file Social Connections: Unknown (07/23/2023) Received from [facility] Family and Community Support Help with Day-to-Day Activities: Not on file Lonely or Isolated: Not on file Intimate Partner Violence: Unknown (07/23/2023) Received from [facility] Abuse Screen Unsafe at Home or Work/School: Not on file Feels Threatened by Someone?: Not on file Does Anyone Keep You from Contacting Others or Doint Things Outside the Home?: Not on file Physical Sign of Abuse Present: Not on file Housing Stability: Unknown (07/23/2023) Received from [facility] Housing Stability Current Living Arrangements: Not on file Potentially Unsafe Housing Conditions: Not on file Family History Problem Relation Name Age of Onset Diabetes Other Hyperlipidemia Other Hypertension Other Conversions - Other Daughter Other Specified Family Circumstances Stroke Brother Lupus Father's Sister Allergies Allergen Reactions Sumatriptan Anaphylaxis Penicillins Hives Protective Adhesive Powder Itching and Rash Sulfacetamide Hives Methyl Salicylate Other - please document in the comment field Other Unknown - Patient states they do not know rxn details Storax Other - please document in the comment field steri-strips Current Outpatient Medications Medication Sig Dispense Refill albuterol 108 (90 Base) MCG/ACT inhaler 1 puff. alendronate (Fosamax) 10 MG tablet aspirin 81 MG EC tablet Take 1 tablet (81 mg) by mouth 1 (one) time each day. baclofen (Lioresal) 10 MG tablet Ca Phosphate-Cholecalciferol (Calcium/Vitamin D3 Gummies) 200-5 MG-MCG chewable tablet 2 tab(s) orally once a day cyanocobalamin (Vitamin B-12) 1000 MCG/ML injection INJECT 1 ML SUBCUTANEOUSLY ONCE A WEEK desvenlafaxine (Pristiq) 50 MG 24 hr tablet Take 1 tablet by mouth daily. estradiol (Estrace) 0.1 MG/GM vaginal cream USING FINGER TECHNIQUE APPLY VAGINALLY ONCE A DAY FOR 2WEEKS THEN DECREASE TO 3 TIMES a WEEK Farxiga 10 MG tablet Take 1 tablet by mouth daily. HYDROcodone-acetaminophen (Vida) 10-325 MG tablet TAKE ONE TABLET BY MOUTH FOUR TIMES DAILY MAY CAUSE DROWSINESS hydroxychloroquine (Plaquenil) 200 MG tablet Take 1 tablet by mouth 2 times a day. 180 tablet 5 Multiple Vitamin (multivitamin) tablet Take 1 tablet by mouth 1 (one) time each day. ondansetron ODT (Zofran ODT) 8 MG disintegrating tablet Take 1 tablet (8 mg) by mouth 2 (two) timesa day. pregabalin (Lyrica) 100 MG capsule (Patient taking differently: 150 mg.) promethazine (Phenergan) 25 MG tablet Take 1 tablet by mouth every 6 hours as needed for nausea or vomiting. traZODone (Desyrel) 100 MG tablet Take 1 tablet by mouth at night as needed for sleep. Veozah 45 MG tablet warfarin (Coumadin) 5 MG tablet TAKE ONE TABLET BY MOUTH EVERY DAY OR as otherwise directed amitriptyline (Elavil) 25 MG tablet (Patient not taking: Reported on 07/16/2024) clobetasol (Temovate) 0.05 % cream ergocalciferol 1.25 MG (77523 UT) capsule TAKE ONE CAPSULE BY MOUTH EVERY WEEK DIRECTED ferrous sulfate 325 (65 Fe) MG tablet PLEASE SEE ATTACHED FOR DETAILED DIRECTIONS (Patient not taking: Reported on 07/16/2024) furosemide (Lasix) 20 MG tablet if needed. nystatin (Mycostatin) 339139 UNIT/GM powder omeprazole (PriLOSEC) [address] capsule Take by mouth 1 (one) time each day. (Patient not taking: Reported on 07/16/2024) spironolactone (Aldactone) 50 MG tablet Take 50 mg by mouth 1 (one) time each day. (Patient not taking: Reported on 02/14/2024) tiZANidine (Zanaflex) 4 MG tablet TAKE ONE TABLET BY MOUTH THREE TIMES DAILY NEEDED MAY CAUSE DROWSINESS (Patient not taking: Reported on 02/13/2023) torsemide (Demadex) 20 MG tablet TAKE ONE TABLET BY MOUTH TWICE DAILY NEEDED FOR EDEMA (Patient not taking: Reported on 02/14/2024) No current facility-administered medications for this visit. Objective Last visit labs: Appointment on 07/16/2024 Component Date Value Ref Range Status THIOPURINE ENZYME ACTIVITY 07/16/2024 21.7 EU Final THIOPURINE METABOLITE INTERPRETATI* 07/16/2024 NORMAL ENZYMATIC ACTIVITY Final Protein, Urine 07/16/2024 18 mg/dL Final Creatinine, Urine 07/16/2024 247 mg/dL Final Protein/Creatinine Ratio 07/16/2024 0.1 mg/mg Creat Final WBC Count 07/16/2024 6.51 3.70 - 10.30 10*3/uL Final RBC Count 07/16/2024 4.57 3.90 - 5.20 10*6/uL Final HGB 07/16/2024 13.2 11.2 - 15.7 g/dL Final HCT 07/16/2024 40.8 34.0 - 45.0 % Final Platelet Count 07/16/2024 507 (H) 155 - 369 10*3/uL Final MCV 07/16/2024 89 79 - 98 fL Final MCH 07/16/2024 28.9 26.0 - 32.0 pg Final MCHC 07/16/2024 32.4 30.7 - 35.5 g/dL Final RDW 07/16/2024 13.2 11.5 - 14.5 % Final MPV 07/16/2024 11.4 8.8 - 12.5 fL Final nRBC 07/16/2024 0.0 <=0.0 per 100 WBCs Final Differential Type 07/16/2024 Automated Final Neutrophils % 07/16/2024 42.0 % Final Lymphocytes % 07/16/2024 39.0 % Final Monocytes % 07/16/2024 6.0 % Final Eosinophils % 07/16/2024 10.0 % Final Basophils % 07/16/2024 3.0 % Final Immature Granulocytes % 07/16/2024 0.0 % Final Neutrophils Absolute 07/16/2024 2.72 1.60 - 6.10 10*3/uL Final Lymphocytes Absolute 07/16/2024 2.51 1.20 - 3.90 10*3/uL Final Monocytes Absolute 07/16/2024 0.38 0.30 - 0.90 10*3/uL Final Eosinophils Absolute 07/16/2024 0.68 (H) 0.00 - 0.50 10*3/uL Final Basophils Absolute 07/16/2024 0.21 (H) 0.00 - 0.10 10*3/uL Final Immature Granulocytes Absolute 07/16/2024 0.01 0.00 - 0.06 10*3/uL Final Conjugated Bilirubin, Plasma 07/16/2024 <0.2 0.0 - 0.3 mg/dL Final Alkaline Phosphatase, Plasma 07/16/2024 152 (H) 35 - 104 U/L Final Total Bilirubin, Plasma 07/16/2024 0.3 0.2 - 1.1 mg/dL Final Albumin, Plasma 07/16/2024 4.0 3.5 - 5.2 g/dL Final Total Protein 07/16/2024 7.2 6.3 - 7.9 g/dL Final ALT, Plasma 07/16/2024 27 10 - 35 U/L Final AST, Plasma 07/16/2024 24 10 - 35 U/L Final Creatinine, Plasma 07/16/2024 0.60 0.60 - 1.10 mg/dL Final eGFRcr 07/16/2024 107.5 mL/min/1.73m*2 Final Reported eGFRcr in mL/min/1.73m2 is based the CKD-EPI 2020 equation that does not use a race coefficient. C3 Complement 07/16/2024 140 84 - 166 mg/dL Final C4 Complement 07/16/2024 27 13 - 36 mg/dL Final CRP, Plasma 07/16/2024 <3.0 <=8.0 mg/L Final Sedimentation Rate 07/16/2024 9 <30 mm/hr Final Double-Stranded DNA (dsDNA) Ab IgG* 07/16/2024 <1:10 <1:10 Final Lupus Anticoagulant Result 07/16/2024 Lupus anticoagulant (LA) not detected by either LA-sensitive aPTT or dRVVT assays. If clinical suspicion for antiphospholipid syndrome is high, consider testing for antibodies against cardiolipin and [id number] I. Final aPTT Lupus Anticoagulant Sensitive 07/16/2024 38.6 <=41.0 sec Final DRVVT Screen 07/16/2024 55.2 sec Final DRVVT Screen Ratio 07/16/2024 1.47 (H) <1.20 Final DRVVT Confirmation 07/16/2024 44.6 sec Final DRVVT Confirmation Ratio 07/16/2024 1.26 Final DRVVT Screen Ratio/Confirmation Ra* 07/16/2024 1.17 <1.20 Final IgG Anticardiolipin 07/16/2024 <1.60 <20.00 GPL Units/mL Final Anticardiolipin IgG Interpretation 07/16/2024 Negative Negative Final IgM Anticardiolipin 07/16/2024 6.30 <20.00 MPL Units/mL Final Anticardiolipin IgM Interpretation 07/16/2024 Negative Negative Final Cardiolipin Antibody IgA 07/16/2024 <10 <=11 APL Final Anti-Beta 2 Glycoprotein 1, IgG 07/16/2024 <1.4 <20.0 U/mL Final Anti-Beta 2 Glycoprotein IgG Inter* 07/16/2024 Negative Negative Final Anti-Beta 2 Glycoprotein 1, IgM 07/16/2024 6.3 <20.0 U/mL Final Anti-Beta 2 Glycoprotein IgM Inter* 07/16/2024 Negative Negative Final [id number] 1, IgA Antibody 07/16/2024 <10 <=20 ALDEN Final Vitals: 05/06/25 1317 BP: 110/72 Pulse: 64 Resp: 18 Temp: 36.7 ??C (98.1 ??F) SpO2: 96% Physical Exam Vitals reviewed. Constitutional: General: She is not in acute distress. Pulmonary: Effort: Pulmonary effort is normal. Musculoskeletal: General: Tenderness (allodynia) present. No swelling. Normal range of motion. Cervical back: Normal range of motion. Comments: Digits and nails were normal. No evidence of synovitis and no joint effusions. Joints hada normal ROM and normal alignment. Muscle strength and tone normal all extremities. Skin: General: Skin is warm and dry. Findings: No rash. Neurological: Mental Status: She is alert and oriented to person, place, and time. Psychiatric: Mood and Affect: Mood normal. There is currently no information documented on the homunculus. Go to the Rheumatology activity andcomplete the homunculus joint exam. Swollen Joint Count: Swollen: -- Tender Joint Count: Tender: -- Patient global assessment: Patient Global: --/10 Rapid 3 score: CDAI: 14 Assessment/Plan Diagnosis Plan 1. Positive RENETTA (antinuclear antibody) Double-Stranded DNA (dsDNA) Antibody, IgG by IFA Sedimentation Rate, Automated C-Reactive Protein, Plasma C4 Complement C3 Complement Creatinine, Plasma Hepatic Function Panel CBC and Differential Protein, Random, Urine with Creatinine Urinalysis with reflex microscopic (Culture NOT Included) 2. High risk medication use Double-Stranded DNA (dsDNA) Antibody, IgG by IFA Sedimentation Rate, Automated C-Reactive Protein, Plasma C4 Complement C3 Complement Creatinine, Plasma Hepatic Function Panel CBC and Differential Protein, Random, Urine with Creatinine Urinalysis with reflex microscopic (Culture NOT Included) 3. Long-term use of hydroxychloroquine Double-Stranded DNA (dsDNA) Antibody, IgG by IFA Sedimentation Rate, Automated C-Reactive Protein, Plasma C4 Complement C3 Complement Creatinine, Plasma Hepatic Function Panel CBC and Differential Protein, Random, Urine with Creatinine Urinalysis with reflex microscopic (Culture NOT Included) 1. Suspected SLE Currently taking HCQ 400 mg/day - Continue HCQ 400 mg/day -will obtain sle labs today as patient has had progression in symptoms 2. Recurrent falls Pt has had multiple falls over the last several months, worsening vision, increased etc, among other symptoms. It is unclear if this is a separate etiology, as such will obtain neurology input Pt has upcoming appt with neurology 10/30/25 3. Fibromyalgia Diagnosed by another provider. Currently taking Lyrica and Vida - Continue with pain management. 4. 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 High risk medication use -routine labs today -pt is due for eye exam in June [facility] 6 months The patient was counseled about diagnostic results, instruction for management, risk factors reduction, prognosis, compliance with visits and treatment, risks and benefits of treatments options. Prior notes (by external physicians) and results were reviewed by me with independent interpretation of labs and imaging. My note will be sent to PCP and other consulting physicians. documented in this encounter Plan of Treatment Upcoming Encounters Date Type Department Care Team (Late st Contact Info) Description 10/30/2025 8:00 AM EST Consult [facility] [address] [place] [address] Sim Tillman MD [address] [place] [address] 11/11/2025 12:50 PM EST Office Visit [facility] [address] [place] [address] Angela Todd, ANGELITO [address] [place] [address] documented as of this encounter Results * (ABNORMAL) Urinalysis with reflex microscopic (Culture NOT Included) (05/06/2025 2:30 PM EDT) Color, Urine Dark Yellow LAB URINALYSIS - AUTOMATED METHOD 05/06/2025 4:28 PM EDT [facility] Clarity, Urine Cloudy LAB URINALYSIS - AUTOMATED METHOD 05/06/2025 4:28 PM EDT [facility] Spec [place], Urine 1.026 1.005 - 1.030 LAB URINALYSIS - AUTOMATED METHOD 05/06/2025 4:28 PM EDT [facility] pH, Urine 5.5 5.0 - 8.0 LAB URINALYSIS - AUTOMATED METHOD 05/06/2025 4:28 PM EDT [facility] Protein, Urine 30(A) Negative mg/dL LAB URINALYSIS - AUTOMATED METHOD 05/06/2025 4:28 PM EDT [facility] Glucose, Urine >=1000(A) Negative mg/dL LAB URINALYSIS - AUTOMATED METHOD 05/06/2025 4:28 PM EDT [facility] Ketones, Urine Trace(A) Negative mg/dL LAB URINALYSIS - AUTOMATED METHOD 05/06/2025 4:28 PM EDT [facility] Blood, Urine Large(A) Negative LAB URINALYSIS - AUTOMATED METHOD 05/06/2025 4:28 PM EDT [facility] Bilirubin, Urine Small(A) Negative LAB URINALYSIS - AUTOMATED METHOD 05/06/2025 4:28 PM EDT [facility] Urobilinogen, Urine 0.2 0.2 to 1.0 mg/dL LAB URINALYSIS - AUTOMATED METHOD 05/06/2025 4:28 PM EDT [facility] Leukocytes, Urine Negative Negative LAB URINALYSIS - AUTOMATED METHOD 05/06/2025 4:28 PM EDT [facility] Nitrite, Urine Negative Negative LAB URINALYSIS - AUTOMATED METHOD 05/06/2025 4:28 PM EDT [facility] RBC, Urine >50(A) 0 to 3 /HPF LAB URINALYSIS - AUTOMATED METHOD 05/06/2025 4:28 PM EDT [facility] WBC, Urine 6 - 10(A) 0 to 5 /HPF LAB URINALYSIS - AUTOMATED METHOD 05/06/2025 4:28 PM EDT [facility] Squamous Epithelial Cells 0 - 2 0 to 5 /HPF LAB URINALYSIS - AUTOMATED METHOD 05/06/2025 4:28 PM EDT [facility] Hyaline Casts 0 - 2 0 to 5 /LPF LAB URINALYSIS - AUTOMATED METHOD 05/06/2025 4:28 PM EDT [facility] Bacteria, Urine Negative Negative LAB URINALYSIS - AUTOMATED METHOD 05/06/2025 4:28 PM EDT [facility] Renal Tubular Cells Present Absent 05/06/2025 4:28 PM EDT [facility] Transitional Epithelial Cells Present Absent 05/06/2025 4:28 PM EDT [facility] Calcium Oxalate Crystals Present Absent 05/06/2025 4:28 PM EDT [facility] Urine Urine specimen obtained by clean catch procedure / Unknown Non-blood Collection / Unknown 05/06/2025 2:30 PM EDT 05/06/2025 2:30 PM EDT [facility] - 05/06/2025 4:28 PM EDT Performed by manual method us Angela Todd APRN LAB URINE ORDERABLES Veronica syed Result [facility] [address] [place] [address] * Protein, Random, Urine with Creatinine (05/06/2025 2:30 PM EDT) Protein, Urine 20 mg/dL 05/06/2025 4:34 PM EDT [facility] Creatinine, Urine 141 mg/dL 05/06/2025 4:34 PM EDT [facility] Protein/Creatin ine Ratio 0.1 mg/mg Creat 05/06/2025 4:34 PM EDT [facility] Urine Urine specimen obtained by clean catch procedure / Unknown Non-blood Collection / Unknown 05/06/2025 2:30 PM EDT 05/06/2025 2:30 PM EDT Angela Todd APRN LAB URINE ORDERABLES Veronica syed Result [facility] [address] [place] [address] * (ABNORMAL) CBC and Differential (05/06/2025 2:08 PM EDT) Pathologist [facility] [place] WBC Count 9.44 3.70 - 10.30 10*3/uL LAB HEMATOLOGY METHOD 05/06/2025 3:39 PM EDT [facility] RBC Count 5.15 3.90 - 5.20 10*6/uL LAB HEMATOLOGY METHOD 05/06/2025 3:39 PM EDT [facility] HGB 14.4 11.2 - 15.7 g/dL LAB HEMATOLOGY METHOD 05/06/2025 3:39 PM EDT [facility] HCT 44.7 34.0 - 45.0 % LAB HEMATOLOGY METHOD 05/06/2025 3:39 PM EDT [facility] Platelet Count 337 155 - 369 10*3/uL LAB HEMATOLOGY METHOD 05/06/2025 3:39 PM EDT [facility] MCV 87 79 - 98 fL LAB HEMATOLOGY METHOD 05/06/2025 3:39 PM EDT [facility] MCH 28.0 26.0 - 32.0 pg LAB HEMATOLOGY METHOD 05/06/2025 3:39 PM EDT [facility] MCHC 32.2 30.7 - 35.5 g/dL LAB HEMATOLOGY METHOD 05/06/2025 3:39 PM EDT [facility] RDW 13.9 11.5 - 14.5 % LAB HEMATOLOGY METHOD 05/06/2025 3:39 PM EDT [facility] MPV 11.9 8.8 - 12.5 fL LAB HEMATOLOGY METHOD 05/06/2025 3:39 PM EDT [facility] nRBC 0.0 <=0.0 per 100 WBCs LAB HEMATOLOGY METHOD 05/06/2025 3:39 PM EDT [facility] Differential Type Automated LAB HEMATOLOGY METHOD 05/06/2025 3:39 PM EDT [facility] Neutrophils % 56 % LAB HEMATOLOGY METHOD 05/06/2025 3:39 PM EDT [facility] Lymphocytes % 32 % LAB HEMATOLOGY METHOD 05/06/2025 3:39 PM EDT [facility] Monocytes % 6 % LAB HEMATOLOGY METHOD 05/06/2025 3:39 PM EDT [facility] Eosinophils % 5 % LAB HEMATOLOGY METHOD 05/06/2025 3:39 PM EDT [facility] Basophils % 1 % LAB HEMATOLOGY METHOD 05/06/2025 3:39 PM EDT [facility] Immature Granulocytes % 0 % LAB HEMATOLOGY METHOD 05/06/2025 3:39 PM EDT [facility] Neutrophils Absolute 5.32 1.60 - 6.10 10*3/uL LAB HEMATOLOGY METHOD 05/06/2025 3:39 PM EDT [facility] Lymphocytes Absolute 3.00 1.20 - 3.90 10*3/uL LAB HEMATOLOGY METHOD 05/06/2025 3:39 PM EDT [facility] Monocytes Absolute 0.56 0.30 - 0.90 10*3/uL LAB HEMATOLOGY METHOD 05/06/2025 3:39 PM EDT [facility] Eosinophils Absolute 0.43 0.00 - 0.50 10*3/uL LAB HEMATOLOGY METHOD 05/06/2025 3:39 PM EDT [facility] Basophils Absolute 0.11(H) 0.00 - 0.10 10*3/uL LAB HEMATOLOGY METHOD 05/06/2025 3:39 PM EDT [facility] Immature Granulocytes Absolute 0.02 0.00 - 0.06 10*3/uL LAB HEMATOLOGY METHOD 05/06/2025 3:39 PM EDT [facility] Blood Venous blood specimen / Unknown Venipuncture / Unknown 05/06/2025 2:08 PM EDT 05/06/2025 2:09 PM EDT Narrative [facility] - 05/06/2025 3:39 PM EDT Therapeutic decision making should be based on absolute values, rather than percentages. us Angelabird Todd RO[facility]MASTER LAB BLOOD ORDERABLES Veronica l Result [facility] [address] [place] [address] * (ABNORMAL) Hepatic Function Panel (05/06/2025 2:08 PM EDT) Conjugated Bilirubin, Plasma <0.2 <=0.3 mg/dL 05/06/2025 3:35 PM EDT [facility] Alkaline Phosphatase, Plasma 107(H) 35 - 104 U/L 05/06/2025 3:35 PM EDT [facility] Total Bilirubin, Plasma 0.2 0.2 - 1.1 mg/dL 05/06/2025 3:35 PM EDT [facility] Albumin, Plasma 3.9 3.5 - 5.2 g/dL 05/06/2025 3:35 PM EDT [facility] Total Protein 7.2 6.3 - 7.9 g/dL 05/06/2025 3:35 PM EDT [facility] ALT, Plasma 43(H) 10 - 35 U/L 05/06/2025 3:35 PM EDT [facility] AST, Plasma 35 10 - 35 U/L 05/06/2025 3:35 PM EDT [facility] Blood Venous blood specimen / Unknown Venipuncture / Unknown 05/06/2025 2:08 PM EDT 05/06/2025 2:09 PM EDT us Angelabird Todd APRN LAB BLOOD ORDERABLES Veronica l Result [facility] [address] [place] [address] * Creatinine, Plasma (05/06/2025 2:08 PM EDT) Creatinine, Plasma 0.62 0.60 - 1.10 mg/dL 05/06/2025 3:35 PM EDT [facility] eGFRcr 106.0 mL/min/1.7 3m*2 05/06/2025 3:35 PM EDT [facility] Comment:Reported eGFRcr in m L/min/1.73m2 is based the CKD-EPI 2020 equation that does not use a race coefficient. Blood Venous blood specimen / Unknown Venipuncture / Unknown 05/06/2025 2:08 PM EDT 05/06/2025 2:09 PM EDT Angela Landaverdetingly ROADMASTER LAB BLOOD ORDERABLES Veronica l Result [facility] [address] [place] [address] * C3 Complement (05/06/2025 2:08 PM EDT) C3 Complement 149 84 - 166 mg/dL 05/06/2025 3:[address] [facility] Blood Venous blood specimen / Unknown Venipuncture / Unknown 05/06/2025 2:08 PM EDT 05/06/2025 2:09 PM EDT Angela Syed Peyton RO[facility]MASTER LAB BLOOD ORDERABLES Veronica l Result [facility] [address] [place] [address] * C4 Complement (05/06/2025 2:08 PM EDT) C4 Complement 25 13 - 36 mg/dL 05/06/2025 3:[address] [facility] Blood Venous blood specimen / Unknown Venipuncture / Unknown 05/06/2025 2:08 PM EDT 05/06/2025 2:09 PM EDT Angela Todd APRN LAB BLOOD ORDERABLES Veronica l Result Performing Organization Address [facility]/ZIP Co de Phone Number [facility] [address] [place] [address] * C-Reactive Protein, Plasma (05/06/2025 2:08 PM EDT) [facility] CRP, Plasma <3.0 <=8.0 mg/L 05/06/2025 3:35 PM EDT [facility] Blood Venous blood specimen / Unknown Venipuncture / Unknown 05/06/2025 2:08 PM EDT 05/06/2025 2:09 PM EDT Narrative [facility] - 05/06/2025 3:35 PM EDT This CRP test is appropriate for assessment of infection, systemic inflammation and/or tissue injury. To assess cardiovascular disease risk order high sensitivity CRP (CRPH). Angela Todd APRN LAB BLOOD ORDERABLES Veronica l Result Performing Organization Address [facility] Co de Phone Number [facility] [address] [place] [address] * (ABNORMAL) Sedimentation Rate, Automated (05/06/2025 2:08 PM EDT) [facility] Sedimentation Rate 38(H) <30 mm/hr 2024 4:06 PM EDT [facility] Blood Venous blood specimen / Unknown Venipuncture / Unknown 05/06/2025 2:08 PM EDT 05/06/2025 2:09 PM EDT Angela Becerraly ROADMASTER LAB BLOOD ORDERABLES Veronica l Result Performing Organization Address [facility]/[place] [address] * Double-Stranded DNA (dsDNA) Antibody, IgG by IFA (05/06/2025 2:08 PM EDT) [facility] Double-Strande d DNA (dsDNA) Ab IgG IFA <1:10 <1:10 05/08/2025 11:43 PM EDT [facility] DONNA MELENDEZ) Blood Venous blood specimen / Unknown Venipuncture / Unknown 05/06/2025 2:08 PM EDT 05/06/2025 2:09 PM EDT Narrative KJ MELENDEZ) - 05/08/2025 11:43 PM EDT INTERPRETIVE INFORMATION: Double-Stranded DNA (dsDNA) Antibody, IgG by IFA (using Crithidia luciliae) Positivity for anti-double stranded DNA (anti-dsDNA) IgG antibody is a diagnostic criterion of systemic lupus erythematosus (SLE). The presence of the anti-dsDNA IgG antibody is identified by IFA titer (Crithidia luciliae indirect fluorescent test [MANI]). MANI is highly specific for SLE with a sensitivity of 50-60 percent. Some patients with early or inactive SLE may be positive for anti-dsDNA IgG by LILIA but negative by MANI. If the MANI result is negative but the patient has a positive LILIA and clinical suspicion remains, consider antinuclear antibody (RENETTA) testing by IFA. Additional information and recommendations for testing may be found at [email or web address]. 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
--- OUTSIDE RECORDS SUMMARY | 2025-06-23 12:07 | XMS_ITS | Encounter Summary ---
Author Organization [facility] Address [address] [place] [address] Care Team Providers Care Surgical Dental Assistant Name Role Phone Valentin Daniel MD Primary Care Provider [phone] Reason for Visit * Reason Comments Med Refill Encounter Details Date Type Department Care Team (Late st Contact Info) Description 05/13/2025 Refill [facility] [address] [place] [address] Angela Todd L, STORE CLERK [address] [place] [address] Social History Tobacco Use Types [...] Info) Description 10/30/2025 8:00 AM EST Consult [place] [facility] [address] [place] [address] Sim Tillman MD [address] [place] [address] 11/11/2025 12:50 PM EST Office Visit [facility] Medicine Specialties [address] [place] [address] Angela Todd APRN [address] [place] [address] documented as of this encounter [...] documented as of this encounter Care Teams Surgical Dental Assistant Relationship Specialty Start Date End Date Valentin Daniel MD PCP - General 09/18/22 documented as of this encounter
--- OUTSIDE RECORDS SUMMARY | 2025-06-23 12:08 | XMS_ITS | Encounter Summary ---
Author Organization [employer] ([place], [place], [place], [place]) Address [address] [place] [address] Care Team Providers Care Otr Company Driver Name Role Phone Unavailable Primary Care Provider Unavailabl e Encounter Details Date Type Department Care Team (Late st Contact Info) Description 06/22/2021 Transcribed Document [facility] [place] [address] ProviderRikki MD [address] [place] [id number] Social History Tobacco Use Types Packs/Day Years [...]
--- OUTSIDE RECORDS SUMMARY | 2025-06-23 12:08 | XMS_ITS | Encounter Summary ---
Author Organization [employer] ([place], [place], [place], [place]) Address [address] [place] [address] Care Team Providers Care Park Worker Supervisor Name Role Phone Unavailable Primary Care Provider Unavailabl e Encounter Details Date Type Department Care Team (Late st Contact Info) Description 06/22/2021 Transcribed Document [facility] [place] [facility] [place] [address] ProviderRikki MD [address] [place] [id number] Social History Tobacco Use Types Packs/Day [...] MD - 06/22/2021 2:03 AM CDT [facility] [place] [address] KASSI KONG :1970 Visit Time:06/21/2021 Your [...] 2 to 3 days Where: [place] [address]- [facility] (1) Allergies SUMAtriptan (Other Anaphylactic Shock, [...] range between ( 0.0 and 7.0 ) Cache #: 0.52 K/uL -- Normal range between ( 0.16 and 1.00 ) Eos #: 0.24 x10(3)/uL -- Normal range between ( 0.00 and 0.80 ) Cache %: 5.3 % -- Normal range between [...] these instructions at home: Medicines ??? Take [id number] and prescription medicines only as told by [...] provider. Document Revised: 04/03/2019 Document Reviewed: 04/03/2019 [employer] Patient Education ?? 2020 [employer]. Emergency Awareness and Preventative Care STROKE is [...] Assistance with quitting is available by contacting 9-527-EVNH-NOW. This is a free resource providing counseling, [...] was given the opportunity to ask questions. Patient/Washhouse Worker Name: Patient/Washhouse Worker Signature: Relationship to Patient: Clinician/Hospital Washhouse Worker Signature: Please Provide a Telephone Number Where You Can Be Reached: Is it Permissible To Leave a Message? Date: documented in this encounter Plan of Treatment Not on file documented as of this encounter Visit Diagnoses Not on filedocumented in this encounter
--- OUTSIDE RECORDS SUMMARY | 2025-06-23 12:08 | XMS_ITS | Encounter Summary ---
Author Organization [employer] ([place], [place], [place], [place]) Address [address] [place] [address] Care Team Providers Care Line Tender Flakeboard Name Role Phone Unavailable Primary Care Provider Unavailabl e Encounter Details Date Type Department Care Team (Late st Contact Info) Description 06/21/2021 Transcribed Document [facility] [place] Family Medicine [facility] [place] [address] ProviderRikki MD [address] [place] [phone] Social History Tobacco Use Types Packs/Day Years [...] PNED ; Probability: 0 ; Diagnosis Code: [id number] ED Height and Weight Height Source : Stated Height Entry Format : [place] Height, Feet : 5 ft(Converted to: 152 cm, 60 Inch) Height, Inches : 3 Inch(Converted to: 0 ft 3 Inch, 7.62 cm) Clinical Height : 160.02 cm Weight Source, ED : Critical estimated dosing weight Weight Entry Format : [place] Weight, Pounds : 220 lb Clinical Dosing Weight : 100 kg Body Surface Area (BSA) : 2.02 m2 Body Mass Index : 39.1 kg/m2 (HI) [place] Body Weight (IBW) : 52.02 kg Jasmina Rao RN - 06/21/2021 22:09 EDT documented in this encounter Plan of Treatment Not on file documented as of this encounter Visit Diagnoses Not on filedocumented in this encounter
--- OUTSIDE RECORDS SUMMARY | 2025-06-23 12:08 | XMS_ITS | Encounter Summary ---
Author Organization [employer] ([place], [place], [place], [place]) Address [address] [place] [address] Care Team Providers Care Grocery Clerk Checking Name Role Phone Unavailable Primary Care Provider Unavailabl e Encounter Details Date Type Department Care Team (Late st Contact Info) Description 06/03/2019 Transcribed Document [facility] [place] Medicine [facility] [place] [address] ProviderRikki MD [address] [place] [address] Social History Tobacco Use Types Packs/Day [...] Montoya MD - 06/03/2019 2:51 PM CDT [place] [address] KASSI KONG :1970 Visit Time:06/03/2019 Your Visit Summary Your Care Team Admitting Physician - DRE POWER MARK, MD Attending Physician - MARIEL MCCRAY MD Primary Care Physician - ALVARADO STILES (REF), -[facility] Referring Physician - MARIEL MCCRAY MD [...] in the future. Where: [place] [address] [place] [address]- Allergies SUMAtriptan (Other Anaphylactic Shock, Other Anaphylactic [...] range between ( 0.0 and 7.0 ) Mcnairy #: 0.44 K/uL -- Normal range between ( 0.16 and 1.00 ) Eos #: 0.28 x10(3)/uL -- Normal range between ( 0.00 and 0.80 ) Mcnairy %: 5.2 % -- Normal range between [...] ) Urine Bilirubin Dipstick: Negative Urine Specific Gould: 1.021 -- Normal range between ( 1.005 [...] stand. This can reduce dizziness. ??? Take ujmt-fzo-qfqqjft and prescription medicines only as told by [...] 10/01/2006 Document Revised: 03/08/2017 Document Reviewed: 06/14/2016 [employer] Interactive Patient Education ?? 2018 [employer] Head Injury, Adult There are many [...] Ask your health care provider for a pbvt-bn-enag plan for gradually returning to activities. ??? [...] your friends, family, a trusted colleague, and chemical research worker about your injury, symptoms, and restrictions. Have them watch for any new or worsening problems. General instructions ??? Take qavp-acx-ofybutn and prescription medicines only as told by [...] 04/10/2017 Elsevier Interactive Patient Education ?? 2019 [employer] Contusion A contusion is a deep [...] This is often called the RICE strategy. Ikfh-roy-xzzthtn anti-inflammatory medicines may also be recommended for [...] are sitting or lying down. ??? Take xoiw-maj-yrdblii and prescription medicines only as told by [...] 07/11/2006 Document Revised: 02/08/2017 Document Reviewed: 02/16/2016 [employer] Interactive Patient Education ?? 2019 [employer] Concussion, Adult A concussion is a [...] are taking any medicines, including prescription medicines, jwle-nov-nvvsrbr medicines, and natural remedies. Some medicines, such [...] returning to activities. General instructions ??? Take biml-njc-skhlaev and prescription medicines only as told by [...] Tell your teachers, school nurse, school counselor, head tennis coach, life trainer, or chemical research worker about your injury, symptoms, and restrictions. [...] 12/21/2004 Document Revised: 09/11/2017 Document Reviewed: 09/11/2017 [employer] Interactive Patient Education ?? 2019 [employer] Emergency Awareness and Preventative Care STROKE [...] Assistance with quitting is available by contacting [phone]-AOAP-NOW. This is a free resource providing counseling, [...] was given the opportunity to ask questions. Patient/Grey Goods Tester Name: Patient/Grey Goods Tester Signature: Relationship to Patient: Clinician/Hospital Grey Goods Tester Signature: Please Provide a Telephone Number Where You Can Be Reached: Is it Permissible To Leave a Message? Date: Electronically signed by Doe, Giacomo Conversion Vehicle Maintenance Technician Cerner at 01/28/2023 11:08 PM CDT documented in this encounter Plan of Treatment Not on file documented as of this encounter Visit Diagnoses Not on filedocumented in this encounter
--- OUTSIDE RECORDS SUMMARY | 2025-06-23 12:08 | XMS_ITS | Encounter Summary ---
Author Organization [employer] ([place], [place], [place], [place]) Address [address] [place] [address] Care Team Providers Care Lumpia Wrapper Maker Name Role Phone Unavailable Primary Care Provider Unavailabl e Encounter Details Date Type Department Care Team (Late st Contact Info) Description 06/03/2019 Transcribed Document [facility] [place] [facility] [place] [address] ProviderRikki MD [address] [place] [id number] Social History Tobacco Use Types Packs/Day Years [...] 06/03/2019 15:02 EDT Electronically signed by Doe [facility] Conversion Director Pharmaceutical Cerner at 01/28/2023 11:05 PM CDT documented in this encounter Plan of Treatment Not on file documented as of this encounter Visit Diagnoses Not on filedocumented in this encounter
--- OUTSIDE RECORDS SUMMARY | 2025-06-23 12:08 | XMS_ITS | Encounter Summary ---
Author Organization [employer] ([place], [place], [place], [place]) Address [address] [place] [address] Care Team Providers Care Delivery Driver/Customer Service Name Role Phone Unavailable Primary Care Provider Unavailabl e Encounter Details Date Type Department Care Team (Late st Contact Info) Description 06/11/2019 Transcribed Document [facility] [place] [address] [place] [address] ProviderRikki MD [address] [place], [place] [address] Social History Tobacco Use Types Packs/Day Years [...]
--- OUTSIDE RECORDS SUMMARY | 2025-06-23 12:08 | XMS_ITS | Encounter Summary ---
Author Organization [employer] ([place], [place], [place], [place]) Address [address] [place] [address] Care Team Providers Care Mend Worker Name Role Phone Unavailable Primary Care Provider Unavailabl e Encounter Details Date Type Department Care Team (Late st Contact Info) Description 06/21/2021 Transcribed Document [facility] [place] Family Medicine [address] [place] [address] ProviderRikki MD [address] [place], [place] [id number] Social History Tobacco Use Types Packs/Day Years [...]
--- OUTSIDE RECORDS SUMMARY | 2025-06-23 12:08 | XMS_ITS | Clinical Summary ---
Author Organization [employer] ([place], [place], [place], [place]) Address [address] [place] [address] Care Team Providers Care Front Desk Administrator Name Role Phone Unavailable Primary Care Provider [...]
--- OUTSIDE RECORDS SUMMARY | 2025-06-23 12:08 | XMS_ITS | Clinical Summary ---
Author Organization [facility] Address [address] [place] [address] Care Team Providers Care Blanking Machine Operator Name Role Phone Valentin Daniel MD Primary Care Provider [phone] Allergies Active Allergy Reactions Criticality Noted Date [...] cream 01/21/20 21 Active ergocalciferol 1.25 MG (09204 UT) capsule TAKE ONE CAPSULE BY MOUTH EVERY WEEK DIRECTED 03/01/20 21 Active HYDROcodone-acetam inophen (Kimberly) 10-325 MG tablet TAKE ONE TABLET BY [...] MG tablet 01/28/20 24 Active nystatin (Mycostatin) 038641 UNIT/GM powder 02/01/20 24 Active omeprazole (PriLOSEC) [...] Type Department Care Team Description 05/13/2025 Refill [facility]ties [address] [place] [address] Angela Todd, CODING VALIDATOR 05/11/2025 Results Follow-Up [facility] [address] [place] [address] Angela Todd, CODING VALIDATOR 05/06/2025 1:20 PM EDT Office Visit [facility] [address] [place] [address] Angela Todd, CODING VALIDATOR Positive RENETTA (antinuclear antibody) (Primary Dx); High [...] Info) Description 10/30/2025 8:00 AM EST Consult [facility] [address] [place] [address] Sim Tillman MD [address] [place] [address] 11/11/2025 12:50 PM EST Office Visit [facility] [address] [place] [address] Angela Todd APRN [address] [place] [address] Health Maintenance Due Date Last [...] (2 - Td or Tdap) 06/20/2021 06/20/2011 [id number] Vaccine ( - season) 2025 07/14/2021, 11/17/2020, 10/28/2020 UKY-Influenza Vaccine (#1) 06/15/202508/25, [...] APRN LAB URINE ORDERABLES Veronica syed Result [facility] [address] [place] [address] * Protein, Random, Urine with Creatinine (05/06/2025 2:30 PM EDT) Protein, Urine 20 mg/dL 05/06/2025 4:34 PM EDT [facility] Creatinine, Urine 141 mg/dL 05/06/2025 4:34 PM EDT [facility] Protein/Creatin ine Ratio 0.1 mg/mg Creat 05/06/2025 4:34 PM EDT [facility] Urine Urine specimen obtained by clean catch procedure / Unknown Non-blood Collection / Unknown 05/06/2025 2:30 PM EDT 05/06/2025 2:30 PM EDT us Angela Todd APRN LAB URINE ORDERABLES Veronica kunal Result [facility] [address] [place] [address] * (ABNORMAL) Urinalysis with reflex microscopic (Culture NOT Included) (05/06/2025 2:30 PM EDT) Color, Urine Dark Yellow LAB URINALYSIS - AUTOMATED METHOD 05/06/2025 4:28 PM EDT [facility] Clarity, Urine Cloudy LAB URINALYSIS - AUTOMATED METHOD 05/06/2025 4:28 PM EDT [facility] Spec [place], Urine 1.026 1.005 - 1.030 LAB URINALYSIS - AUTOMATED METHOD 05/06/2025 4:28 PM EDT [facility] pH, Urine 5.5 5.0 - 8.0 LAB URINALYSIS - AUTOMATED METHOD 05/06/2025 4:28 PM EDT [facility] Protein, Urine 30(A) Negative mg/dL LAB URINALYSIS - AUTOMATED METHOD 05/06/2025 4:28 PM EDT [facility] Glucose, Urine >=1000(A) Negative mg/dL LAB URINALYSIS - AUTOMATED METHOD 05/06/2025 4:28 PM EDT [facility] Ketones, Urine Trace(A) Negative mg/dL LAB URINALYSIS - AUTOMATED METHOD 05/06/2025 4:28 PM EDT [facility] Blood, Urine Large(A) Negative LAB URINALYSIS - AUTOMATED METHOD 05/06/2025 4:28 PM EDT [facility] Bilirubin, Urine Small(A) Negative LAB URINALYSIS - AUTOMATED METHOD 05/06/2025 4:28 PM EDT [facility] Urobilinogen, Urine 0.2 0.2 to 1.0 mg/dL LAB URINALYSIS - AUTOMATED METHOD 05/06/2025 4:28 PM EDT [facility] Leukocytes, Urine Negative Negative LAB URINALYSIS - AUTOMATED METHOD 05/06/2025 4:28 PM EDT [facility] Nitrite, Urine Negative Negative LAB URINALYSIS - AUTOMATED METHOD 05/06/2025 4:28 PM EDT [facility] RBC, Urine >50(A) 0 to 3 /HPF LAB URINALYSIS - AUTOMATED METHOD 05/06/2025 4:28 PM EDT [facility] WBC, Urine 6 - 10(A) 0 to 5 /HPF LAB URINALYSIS - AUTOMATED METHOD 05/06/2025 4:28 PM EDT [facility] Squamous Epithelial Cells 0 - 2 0 to 5 /HPF LAB URINALYSIS - AUTOMATED METHOD 05/06/2025 4:28 PM EDT [facility] Hyaline Casts 0 - 2 0 to 5 /LPF LAB URINALYSIS - AUTOMATED METHOD 05/06/2025 4:28 PM EDT [facility] Bacteria, Urine Negative Negative LAB URINALYSIS - AUTOMATED METHOD 05/06/2025 4:28 PM EDT [facility] Renal Tubular Cells Present Absent 05/06/2025 4:28 PM EDT [facility] Transitional Epithelial Cells Present Absent 05/06/2025 4:28 PM EDT [facility] Calcium Oxalate Crystals Present Absent 05/06/2025 4:28 PM EDT [facility] Urine Urine specimen obtained by clean catch procedure / Unknown Non-blood Collection / Unknown 05/06/2025 2:30 PM EDT 05/06/2025 2:30 PM EDT Narrative [facility] - 05/06/2025 4:28 PM EDT Performed by manual method Angela Todd APRN LAB URINE ORDERABLES Veronica syed Result [facility] [address] [place] [address] * Double-Stranded DNA (dsDNA) Antibody, IgG by IFA (05/06/2025 2:08 PM EDT) Double-Strande d DNA (dsDNA) Ab IgG IFA <1:10 <1:10 05/08/2025 11:43 PM EDT [facility] ([facility]) Blood Venous blood specimen / Unknown Venipuncture / Unknown 05/06/2025 2:08 PM EDT 05/06/2025 2:09 PM EDT Narrative [facility] ([facility]) - 05/08/2025 11:43 PM EDT [...] recommendations for testing may be found at https://Foneshow/content/jdisntbwqv-xrhjaj-hmvjpdhj. Performed By: [employer] [address] [place] [address] Sourcing Coordinator: Abundio Urias MD, PhD CLIA Number: [id number] Angela Todd APRN LAB BLOOD ORDERABLES Veronica syed Result [facility] ([facility]) [address] [place] [address] * Creatinine, Plasma (05/06/2025 2:08 PM EDT) Creatinine, Plasma 0.62 0.60 - 1.10 mg/dL 05/06/2025 3:35 PM EDT [facility] eGFRcr 106.0 mL/min/1.7 3m*2 05/06/2025 3:35 PM EDT [facility] Comment:Reported eGFRcr in m L/min/1.73m2 is based the CKD-EPI 2020 equation that does not use a race coefficient. Blood Venous blood specimen / Unknown Venipuncture / Unknown 05/06/2025 2:08 PM EDT 05/06/2025 2:09 PM EDT Angela Todd CODING VALIDATOR LAB BLOOD ORDERABLES Veronica syed Result [facility] [address] [place] [address] * (ABNORMAL) Sedimentation Rate, Automated (05/06/2025 2:08 PM EDT) Pathologist [facility] Sedimentation Rate 38(H) <30 mm/hr 2024 4:06 PM EDT [facility] Blood Venous blood specimen / Unknown Venipuncture / Unknown 05/06/2025 2:08 PM EDT 05/06/2025 2:09 PM EDT Angela Todd APRN LAB BLOOD ORDERABLES Veronica syed Result Performing Organization Address City/[facility]/ZIP Co de Phone Number [facility] [address] [place] [address] * (ABNORMAL) CBC and Differential (05/06/2025 2:08 PM EDT) Pathologist [facility] WBC Count 9.44 3.70 - 10.30 10*3/uL LAB HEMATOLOGY METHOD 05/06/2025 3:39 PM EDT [facility] RBC Count 5.15 3.90 - 5.20 10*6/uL LAB HEMATOLOGY METHOD 05/06/2025 3:39 PM EDT [facility] HGB 14.4 11.2 - 15.7 g/dL LAB HEMATOLOGY METHOD 05/06/2025 3:39 PM EDT [facility] HCT 44.7 34.0 - 45.0 % LAB HEMATOLOGY METHOD 05/06/2025 3:39 PM EDT [facility] Platelet Count 337 155 - 369 10*3/uL LAB HEMATOLOGY METHOD 05/06/2025 3:39 PM EDT [facility] MCV 87 79 - 98 fL LAB HEMATOLOGY METHOD 05/06/2025 3:39 PM EDT [facility] MCH 28.0 26.0 - 32.0 pg LAB HEMATOLOGY METHOD 05/06/2025 3:39 PM EDT [facility] MCHC 32.2 30.7 - 35.5 g/dL LAB HEMATOLOGY METHOD 05/06/2025 3:39 PM EDT [facility] RDW 13.9 11.5 - 14.5 % LAB HEMATOLOGY METHOD 05/06/2025 3:39 PM EDT [facility] MPV 11.9 8.8 - 12.5 fL LAB HEMATOLOGY METHOD 05/06/2025 3:39 PM EDT [facility] nRBC 0.0 <=0.0 per 100 WBCs LAB HEMATOLOGY METHOD 05/06/2025 3:39 PM EDT [facility] Differential Type Automated LAB HEMATOLOGY METHOD 05/06/2025 3:39 PM EDT [facility] Neutrophils % 56 % LAB HEMATOLOGY METHOD 05/06/2025 3:39 PM EDT [facility] Lymphocytes % 32 % LAB HEMATOLOGY METHOD 05/06/2025 3:39 PM EDT [facility] Monocytes % 6 % LAB HEMATOLOGY METHOD 05/06/2025 3:39 PM EDT [facility] Eosinophils % 5 % LAB HEMATOLOGY METHOD 05/06/2025 3:39 PM EDT [facility] Basophils % 1 % LAB HEMATOLOGY METHOD 05/06/2025 3:39 PM EDT [facility] Immature Granulocytes % 0 % LAB HEMATOLOGY METHOD 05/06/2025 3:39 PM EDT [facility] Neutrophils Absolute 5.32 1.60 - 6.10 10*3/uL LAB HEMATOLOGY METHOD 05/06/2025 3:39 PM EDT [facility] Lymphocytes Absolute 3.00 1.20 - 3.90 10*3/uL LAB HEMATOLOGY METHOD 05/06/2025 3:39 PM EDT [facility] Monocytes Absolute 0.56 0.30 - 0.90 10*3/uL LAB HEMATOLOGY METHOD 05/06/2025 3:39 PM EDT [facility] Eosinophils Absolute 0.43 0.00 - 0.50 10*3/uL LAB HEMATOLOGY METHOD 05/06/2025 3:39 PM EDT [facility] Basophils Absolute 0.11(H) 0.00 - 0.10 10*3/uL LAB HEMATOLOGY METHOD 05/06/2025 3:39 PM EDT [facility] Immature Granulocytes Absolute 0.02 0.00 - 0.06 10*3/uL LAB HEMATOLOGY METHOD 05/06/2025 3:39 PM EDT [facility] Blood Venous blood specimen / Unknown Venipuncture / Unknown 05/06/2025 2:08 PM EDT 05/06/2025 2:09 PM EDT Narrative [facility] - 05/06/2025 3:39 PM EDT Therapeutic decision making should be based on absolute values, rather than percentages. us Angela Todd APRN LAB BLOOD ORDERABLES Veronica l Result [facility] [address] [place] [address] * C3 Complement (05/06/2025 2:08 PM EDT) C3 Complement 149 84 - 166 mg/dL 05/06/2025 3:30 PM EDT [facility] Blood Venous blood specimen / Unknown Venipuncture / Unknown 05/06/2025 2:08 PM EDT 05/06/2025 2:09 PM EDT us Angela Todd APRN LAB BLOOD ORDERABLES Veronica l Result Performing Organization Address City/[facility]/[place] [address] * C4 Complement (05/06/2025 2:08 PM EDT) C4 Complement 25 13 - 36 mg/dL 05/06/2025 3:30 PM EDT [facility] Blood Venous blood specimen / Unknown Venipuncture / Unknown 05/06/2025 2:08 PM EDT 05/06/2025 2:09 PM EDT us Angela Todd APRN LAB BLOOD ORDERABLES [place] [address] * C-Reactive Protein, Plasma (05/06/2025 2:08 PM EDT) CRP, Plasma <3.0 <=8.0 mg/L 05/06/2025 3:35 PM EDT [facility] Blood Venous blood specimen / Unknown Venipuncture / Unknown 05/06/2025 2:08 PM EDT 05/06/2025 2:09 PM EDT Narrative [facility] - 05/06/2025 3:35 PM EDT This CRP test is appropriate for assessment of infection, systemic inflammation and/or tissue injury. To assess cardiovascular disease risk order high sensitivity CRP (CRPH). Angela Todd APRN LAB BLOOD ORDERABLES Veronica l Result Performing Organization Address City/State/[facility] Co de Phone Number [facility] [address] [place] [address] * (ABNORMAL) Hepatic Function Panel (05/06/2025 2:08 PM EDT) Conjugated Bilirubin, Plasma <0.2 <=0.3 mg/dL 05/06/2025 3:35 PM EDT [facility] Alkaline Phosphatase, Plasma 107(H) 35 - 104 U/L 05/06/2025 3:35 PM EDT [facility] Total Bilirubin, Plasma 0.2 0.2 - 1.1 mg/dL 05/06/2025 3:35 PM EDT [facility] Albumin, Plasma 3.9 3.5 - 5.2 g/dL 05/06/2025 3:35 PM EDT [facility] Total Protein 7.2 6.3 - 7.9 g/dL 05/06/2025 3:35 PM EDT [facility] ALT, Plasma 43(H) 10 - 35 U/L 05/06/2025 3:35 PM EDT [facility] AST, Plasma 35 10 - 35 U/L 05/06/2025 3:35 PM EDT [facility] Blood Venous blood specimen / Unknown Venipuncture / Unknown 05/06/2025 2:08 PM EDT 05/06/2025 2:09 PM EDT Angela Todd APRN LAB BLOOD ORDERABLES Veronica l Result [facility] [address] [place] [address] from Last 3 Months Additional Health Concerns Infection Onset Date 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
--- OUTSIDE RECORDS SUMMARY | 2025-06-23 12:08 | XMS_ITS | Encounter Summary ---
Author Organization [employer] ([place], [place], [place], [place]) Address [address] [place] [address] Care Team Providers Care Review Specialist Name Role Phone Unavailable Primary Care Provider Unavailabl e Encounter Details Date Type Department Care Team (Late st Contact Info) Description 06/03/2019 Transcribed Document [facility] [place] [address] [place] [address] ProviderRikki MD [address], [place] [id number] Social History Tobacco Use Types Packs/Day Years [...] On: 06/03/2019 10:53 EDT by MARC GREENWOOD PIN CLEANER Triage Across the Room Triage Date/Time : 06/03/2019 10:53 EDT Chief Complaint : pt has knot on top of hand , noticed it last night, + PMS + ROM CR < 3 sec MARC GREENWOOD RN - 06/03/2019 10:53 EDT MARC GREENWOOD RN - 06/03/2019 10:53 EDT DCP GENERIC CODE Tracking Group : [facility] ED MARC GREENWOOD RN - [...] Recent Thoughts of Harming/Killing Others : No Testing And Regulating Chief Needed : No MARC GREENWOOD RN - [...] PNED ; Probability: 0 ; Diagnosis Code: [id number] ED Height and Weight Height Source : Stated Height Entry Format : [place] Height, Feet : 5 ft(Converted to: 152 cm, 60 Inch) Height, Inches : 3 Inch(Converted to: 0 ft 3 Inch, 7.62 cm) Clinical Height : 160.02 cm Weight Source, ED : Critical estimated dosing weight Weight Entry Format : [place] Weight, Pounds : 220 lb Clinical Dosing Weight : 100 kg Body Surface Area (BSA) : 2.02 m2 Body Mass Index : 39.1 kg/m2 (HI) [place] Body Weight (IBW) : 52.02 kg MARC [...]
--- OUTSIDE RECORDS SUMMARY | 2025-06-23 12:08 | XMS_ITS | Encounter Summary ---
Author Organization [employer] ([place], [place], [place], [place]) Address [address] [place] [address] Care Team Providers Care Cumulative Effects Analyst Name Role Phone Unavailable Primary Care Provider Unavailabl e Encounter Details Date Type Department Care Team (Late st Contact Info) Description 06/22/2021 Transcribed Document [facility] [place] [facility] [place] [address] ProviderRikki MD [address] [place] [id number] Social History Tobacco Use Types Packs/Day Years [...] CDT Electronically signed by Giacomo Azar Conversion Interior Assemblies Developer Prover Rajwinder at 01/28/2023 10:48 PM CDT documented in this encounter Plan of Treatment Not on file documented as of this encounter Visit Diagnoses Not on filedocumented in this encounter
--- OUTSIDE RECORDS SUMMARY | 2025-06-23 12:08 | XMS_ITS | Clinical Summary ---
[facility] Address [address] [place] [address] Care Team Providers Care Hospital Internship Name Role Phone Provider, No Known Primary [...] COVID-19 Vaccine (1 - 2023-2 5 season) 2025 INFLUENZA VACCINE 07/15/2025 08/06/2023, , 07/07/2021, Additional history exists ZOSTER VACCINE Completed 01/16/2022, 07/27/2021 Insurance [employer] Care Teams Hospital Internship Relationship Specialty Start Date End Date Provider, [place] [address] PCP - General 08/09/23
--- OUTSIDE RECORDS SUMMARY | 2025-06-23 12:08 | XMS_ITS | Referral Summary ---
Author Organization [employer] ([place], [place], [place], [place]) Address [address] [place] [address] Care Team Providers Care Supervisor Ditching Name Role Phone Unavailable Primary Care Provider [...]
--- OUTSIDE RECORDS SUMMARY | 2025-06-23 12:08 | XMS_ITS | Encounter Summary ---
Author Organization [employer] ([place], [place], [place], [place]) Address [address] [place] [address] Care Team Providers Care Municipal Court Judge Name Role Phone Unavailable Primary Care Provider Unavailabl e Encounter Details Date Type Department Care Team (Late st Contact Info) Description 06/03/2019 Transcribed Document [facility] [place] [facility] [place] [address] ProviderRikki MD [address] [place] [address] Social History Tobacco Use Types Packs/Day [...] MD - 06/03/2019 2:51 PM [place] [address] KASSI KONG :1970 Visit Time:06/03/2019 Your Visit Summary Your Care Team Admitting Physician - DRE POWER MARK, MD Attending Physician - MARIEL MCCRAY MD Primary Care Physician - ALVARADO STILES (REF), -[facility] Referring Physician - MARIEL MCCRAY MD Your [...] in the future. Where: [place] [address] [place] [address]- Allergies SUMAtriptan (Other Anaphylactic Shock, Other Anaphylactic [...] range between ( 0.0 and 7.0 ) Estill #: 0.44 K/uL -- Normal range between ( 0.16 and 1.00 ) Eos #: 0.28 x10(3)/uL -- Normal range between ( 0.00 and 0.80 ) Estill %: 5.2 % -- Normal range between [...] ) Urine Bilirubin Dipstick: Negative Urine Specific [place]: 1.021 -- Normal range between ( 1.005 [...] stand. This can reduce dizziness. ??? Take capc-ohd-bmsqwwx and prescription medicines only as told by [...] 10/01/2006 Document Revised: 03/08/2017 Document Reviewed: 06/14/2016 [employer] Interactive Patient Education ?? 2018 [employer] Head Injury, Adult There are many [...] Ask your health care provider for a bvxb-ql-rnby plan for gradually returning to activities. ??? [...] your friends, family, a trusted colleague, and tnt powder worker about your injury, symptoms, and restrictions. Have them watch for any new or worsening problems. General instructions ??? Take izwh-jci-kxillfu and prescription medicines only as told by [...] 04/10/2017 Elsevier Interactive Patient Education ?? 2019 [employer] Contusion A contusion is a deep [...] This is often called the RICE strategy. Skbp-vnd-fvqzlhi anti-inflammatory medicines may also be recommended for [...] are sitting or lying down. ??? Take zbhg-dxh-fgbpvyy and prescription medicines only as told by [...] 07/11/2006 Document Revised: 02/08/2017 Document Reviewed: 02/16/2016 [employer] Interactive Patient Education ?? 2019 [employer] Concussion, Adult A concussion is a [...] are taking any medicines, including prescription medicines, jomv-uop-otjnaxt medicines, and natural remedies. Some medicines, such [...] returning to activities. General instructions ??? Take qzml-npv-smjdhyx and prescription medicines only as told by [...] your teachers, school nurse, school counselor, head boys tennis coach, dog handler or trainer, or tnt powder worker about your injury, symptoms, and restrictions. [...] 12/21/2004 Document Revised: 09/11/2017 Document Reviewed: 09/11/2017 [employer] Interactive Patient Education ?? 2019 [employer] Emergency Awareness and Preventative Care STROKE [...] Assistance with quitting is available by contacting 5-515-EVTL-NOW. This is a free resource providing counseling, [...] was given the opportunity to ask questions. Patient/Solar Energy Consultant And Designer Name: Patient/Solar Energy Consultant And Designer Signature: Relationship to Patient: Clinician/Hospital Solar Energy Consultant And Designer Signature: Please Provide a Telephone Number Where You Can Be Reached: Is it Permissible To Leave a Message? Date: documented in this encounter Plan of Treatment Not on file documented as of this encounter Visit Diagnoses Not on filedocumented in this encounter
--- OUTSIDE RECORDS SUMMARY | 2025-06-23 12:08 | XMS_ITS | Encounter Summary ---
Author Organization [employer] ([place], [place], [place], [place]) Address [address] [place] [address] Care Team Providers Care Financial Operations Clerk Name Role Phone Unavailable Primary Care Provider Unavailabl e Encounter Details Date Type Department Care Team (Late st Contact Info) Description 06/03/2019 Transcribed Document [place] Family [facility] [place] [address] ProviderRikki MD [address] [place] [id number] Social History Tobacco Use Types Packs/Day Years [...]
--- OUTSIDE RECORDS SUMMARY | 2025-06-23 12:08 | XMS_ITS | Encounter Summary ---
Author Organization [employer] ([place], [place], [place], [place]) Address [address] [place] [address] Care Team Providers Care Live Ammunition Inspector Name Role Phone Unavailable Primary Care Provider Unavailabl e Encounter Details Date Type Department Care Team (Late st Contact Info) Description 06/21/2021 Transcribed Document [facility] [place] [facility] [place] [address] ProviderRikki MD [address] [place] [phone] Social History Tobacco Use Types Packs/Day Years [...] Communication Barrier : None Primary Language : Portuguese Any Spiritual/Cultural Needs or Requests : No [...]
--- OUTSIDE RECORDS SUMMARY | 2025-06-23 12:08 | XMS_ITS | Encounter Summary ---
Author Organization [facility] [place] [facility] Address [address] [place] [address] Care Team Providers Care Junior Estimator Name Role Phone Valentin Daniel MD Primary Care Provider [phone] Reason for Referral * Consultation (Routine) - Authorized Specialty Diagnoses / Procedures Referred By Contac t Referred To Contact Neurology Diagnoses Left foot drop Mechanical problems with limbs Polyneuropathy Valentin Daniel MD [address] [place] [address] Phone: tel: fax: Referral ID Status Reason Start Date Expiration Date Visits Requested Visits Authorized [id number] Authorized Specialty Services Required 02/16/2025 08/18/2026 1 1 Encounter Details Date Type Department Care Team (Late st Contact Info) Description 02/16/2025 Community [facility] Community Practice [address] [place] [address] Valentin Daniel MD [address] [place] [address] Left foot drop (Primary Dx); Mechanical [...] Info) Description 10/30/2025 8:00 AM EST Consult [facility] [address] [place] [address] Sim Tillman MD [address] [place] [address] 11/11/2025 12:50 PM EST Office Visit [facility] Medicine Specialties [address], [address] [place] [address] Angela Todd APRN [address] [place] [address] Scheduled Referrals Name Type Priority [...] documented as of this encounter Care Teams Junior Estimator Relationship Specialty Start Date End Date Valentin Daniel MD PCP - General 09/18/22 documented as of this encounter
--- OUTSIDE RECORDS SUMMARY | 2025-06-23 12:08 | XMS_ITS | Encounter Summary ---
Author Organization [facility] ([place], [place], [place], [place]) Address [address] [place] [address] Care Team Providers Care Implementation Architect Name Role Phone Unavailable Primary Care Provider Unavailabl e Encounter Details Date Type Department Care Team (Late st Contact Info) Description 06/21/2021 Transcribed Document [facility] [place] Family Medicine [address] [place] [address] ProviderRikki MD [address] [place] [place], [place] [phone] Social History Tobacco Use Types Packs/Day Years [...] Historical ProviderMD - 06/21/2021 9:55 PM CDT [place] Suicide Severity Rating Scale (C-SSRS) Entered On: 06/21/2021 22:29 EDT Performed On: 06/21/2021 22:27 EDT by Aruna Garcia Pitt Suicide Severity Rating Scale (C-SSRS) CSSRS Past [...]
--- OUTSIDE RECORDS SUMMARY | 2025-06-23 12:08 | XMS_ITS | Encounter Summary ---
Author Organization [employer] ([place], [place], [place], [place]) Address [address] [place] [address] Care Team Providers Care Retail Link Analyst Name Role Phone Unavailable Primary Care Provider Unavailabl e Encounter Details Date Type Department Care Team (Late st Contact Info) Description 06/22/2021 Transcribed Document [facility] [place] [facility] [place] [address] ProviderRikki MD [address] [place] [phone] Social History Tobacco Use Types Packs/Day Years [...]
--- OUTSIDE RECORDS SUMMARY | 2025-06-23 12:08 | XMS_ITS | Encounter Summary ---
Author Organization [employer] ([place], [place], [place], [place]) Address [address] [place] [address] Care Team Providers Care Manager Aerospace Name Role Phone Unavailable Primary Care Provider Unavailabl e Encounter Details Date Type Department Care Team (Late st Contact Info) Description 06/03/2019 Transcribed Document [facility] [place] [facility] [place] [address] ProviderRikki MD [address] [place], [place] [phone] Social History Tobacco Use Types Packs/Day Years [...]
--- OUTSIDE RECORDS SUMMARY | 2025-06-23 12:08 | XMS_ITS | Encounter Summary ---
Author Organization [facility] Address [address] [place] [address] Care Team Providers Care Tile Mechanic Helper Name Role Phone Valentin Daniel MD Primary Care Provider [phone] Encounter Details Date Type Department Care Team (Latest Contact Info) Description 02/05/2025 Community [facility] Community Practice [address] [place] [address] Valentin Daniel MD [address] [place] [address] Polyneuropathy (Primary Dx); Foot drop, left foot [...] Consult [place] [facility] [address] [place] [address] Sim Tillman MD [address] [place] [address] 11/11/2025 12:50 PM EST Office Visit [facility] [address] [place] [address] Angela Todd, SUPERVISOR COATING [address] [facility] [address] [place] [address] documented as of this encounter [...] documented as of this encounter Care Teams Tile Mechanic Helper Relationship Specialty Start Date End Date Valentin Daniel MD PCP - General 09/18/22 documented as of this encounter
--- OUTSIDE RECORDS SUMMARY | 2025-06-23 12:08 | XMS_ITS | Encounter Summary ---
Author Organization [facility] Address [address] [place] [address] Care Team Providers Care Ticket Counter Name Role Phone Valentin Daniel MD Primary Care Provider [phone] Encounter Details Date Type Department Care Team (Late st Contact Info) Description 05/11/2025 Results Follow-Up [facility] Medicine Specialties [address] [place] [address] Angela Todd, KILN CAR REPAIRER [address] [place] [address] Social History Tobacco Use Types [...] Info) Description 10/30/2025 8:00 AM EST Consult [facility] [address], [address] [place] [address] Sim Tillman MD [address] [place] [address] 11/11/2025 12:50 PM EST Office Visit [facility] Medicine Specialties [address] [place] [address] Angela Todd APRN [address] [place] [address] documented as of this encounter [...] documented as of this encounter Care Teams Ticket Counter Relationship Specialty Start Date End Date Valentin Daniel MD PCP - General 09/18/22 documented as of this encounter
--- OUTSIDE RECORDS SUMMARY | 2025-06-23 12:08 | XMS_ITS | Encounter Summary ---
Author Organization [facility] Address [address] [place] [address] Care Team Providers Care Basting Puller Name Role Phone Valentin Daniel MD Primary Care Provider [phone] Encounter Details Date Type Department Care Team [...] Description 10/30/2025 8:00 AM EST Consult [facility] [address] [place] [address] Sim Tillman MD [address] [place] [address] 11/11/2025 12:50 PM EST Office Visit [facility] Medicine Specialties [address] [place] [address] Angela Todd APRN [address] [place] [address] documented as of this encounter Visit Diagnoses [...] documented as of this encounter Care Teams Basting Puller Relationship Specialty Start Date End Date Valentin Daniel MD PCP - General 09/18/22 documented as of this encounter
--- OUTSIDE RECORDS SUMMARY | 2025-06-23 12:08 | XMS_ITS | Encounter Summary ---
Author Organization [employer] ([place], [place], [place], [place]) Address [address] [place] [address] Care Team Providers Care Child Welfare Assistant Name Role Phone Unavailable Primary Care Provider Unavailabl e Encounter Details Date Type Department Care Team (Late st Contact Info) Description 06/03/[address] [facility] [place] [facility] [place] [address] ProviderRikki MD [address] [place] [phone] Social History Tobacco Use Types Packs/Day Years [...] EDT Height Source Stated Height Entry Format [place] Height/Length, MOZAMBICAN (ft) 5 ft Height/Length MOZAMBICAN 3 Inch CLINICALHEIGHT 160.02 cm [place] Body Weight 52.02 kg Weight Source, ED Critical estimated dosing weight Weight Entry Format [place] Weight Romanian lb 220 lb CLINICALWEIGHT 100 kg Body [...] Hand pain, wrist pain, fracture, sprain, contusion, MD, head injury, concussion,. Orders Include Previous Orders (Selected) Inpatient Orders Ordered EKG: Completed .Automated Differential: .Urinalysis Microscopic: CBC w/ Auto Diff: CMP Comprehensive Metabolic Panel: CR Hand Min 3 Vws RT: CT Head WO: Cardiac Monitoring: ED Adult Fall Risk Assessment: ED Adult Triage: ED Clinical Reconciliation: ED manager real estate: Normal Saline Flush: 10 mL, IV Push, [...] Color Yellow Urine Appearance Clear Urine Specific Granite 1.021 Urine pH Dipstick 7.5 Urine Leukocyte [...] % 30.2 % Lymph # 2.54 x10(3)/uL Dawson % 5.2 % Dawson # 0.44 K/uL Eos % 3.3 % [...] Fall Scale Risk Level 0-24 Low Risk [place] Fall Interventions Adequate lighting, Bed in low position, Call device within reach, Hourly comfort/safety rounds, Non-Slip footwear, Personal items within reach, Reinforced to call for assistance before getting out of bed, Room free of clutter/spills, Upper side-rails up, Wheels locked, Wires/Cords secured Fall Moderate to High Risk Interventions Patient room close to nurses station Communication Barrier None Primary Language Romanian Information Obtained From Patient Smoking Status Refused [...] air Height Source Stated Height Entry Format [place] Height/Length, MOZAMBICAN (ft) 5 ft Height/Length MOZAMBICAN 3 Inch CLINICALHEIGHT 160.02 cm [place] Body Weight 52.02 kg Weight Source, ED Critical estimated dosing weight Weight Entry Format [place] Weight Romanian lb 220 lb CLINICALWEIGHT 100 kg Body [...] Ambulate Tracking Acuity 3 - Urgent (Modified) Observatory Director Needed No Accompanied by Unaccompanied Mode of Arrival Ambulatory 06/03/2019 10:46 EDT Nurse Collect Order Detail 3.00 Nurse Collect Order Detail 3.00 . Radiology results: Radiology Results (Last 48 hours) [id number] -- 06/03/2019 10:45 CR Hand Min 3 [...] Adult, Syncope. Follow up with: ALVARADO STILES (REF)[facility] Within 2 to 3 days Patient [...]
--- OUTSIDE RECORDS SUMMARY | 2025-06-23 12:08 | XMS_ITS | Encounter Summary ---
Author Organization [employer] ([place], [place], [place], [place]) Address [address] [place] [address] Care Team Providers Care Corn Sheller Operator Name Role Phone Unavailable Primary Care Provider Unavailabl e Encounter Details Date Type Department Care Team (Late st Contact Info) Description 06/22/2021 Transcribed Document [facility] Family Medicine [facility] [place] [address] ProviderRikki MD [address] [place] [phone] Social History Tobacco Use Types Packs/Day Years [...] had a heart cath done by her nitrator operator in [place] in February, she did not have any [...] EDT Height Source Stated Height Entry Format [place] Height/Length, BRAZILIAN (ft) 5 ft Height/Length BRAZILIAN 3 Inch CLINICALHEIGHT 160.02 cm [place] Body Weight 52.02 kg Weight Source, ED Critical estimated dosing weight Weight Entry Format [place] Weight Yi lb 220 lb CLINICALWEIGHT 100 kg Body [...] Triage: ED C-SSRS: ED Clinical Reconciliation: ED clinical education coordinator: EKG: Normal Saline Flush: 10 mL, IV [...] % 30.8 % Lymph # 3.02 x10(3)/uL Wells % 5.3 % Wells # 0.52 K/uL Eos % 2.4 % [...] treatment plan, Patient indicated understanding of instructions. Electronically signed by Giacomo Azar Conversion Marketing Intelligence Manager Cerner at 01/28/2023 11:00 PM CDT documented in this encounter Plan of Treatment Not on file documented as of this encounter Visit Diagnoses Not on filedocumented in this encounter
--- OUTSIDE RECORDS SUMMARY | 2025-06-23 12:08 | XMS_ITS | Encounter Summary ---
Author Organization [employer] ([place], [place], [place], [place]) Address [address] [place] [address] Care Team Providers Care Senior Health Consultant Name Role Phone Unavailable Primary Care Provider Unavailabl e Encounter Details Date Type Department Care Team (Late st Contact Info) Description 06/03/2019 Transcribed Document [facility] [place] Family Medicine [address] [place] [address] ProviderRikki MD [address] [place] [phone] Social History Tobacco Use Types Packs/Day Years [...] Communication Barrier : None Primary Language : Macanese Any Spiritual/Cultural Needs or Requests : No [...] - 06/03/2019 11:10 EDT Electronically signed by [facility] Conversion Prosthetist Cerner at 01/28/2023 10:51 PM CDT documented in this encounter Plan of Treatment Not on file documented as of this encounter Visit Diagnoses Not on filedocumented in this encounter
--- NOTE | 2025-06-23 12:09 | XR_ITS ---
FINAL REPORT CLINICAL HISTORY: evaluate left 5th metatarsal fracture COMPARISON: 04/05/2025 FINDINGS: AP, oblique and lateral views of the left foot were obtained. There is no acute fracture or dislocation. There has been interval healing of the fracture of the base of the fifth metatarsal since the prior exam. The joint spaces are preserved. Soft tissues are unremarkable. IMPRESSION: Interval healing of the fracture involving the base of the fifth metatarsal. No acute osseous abnormality identified. Reviewed, Interpreted and Dictated by Michaela Carlson MD Transcribed by Kelly Masters Authenticated and [facility]
--- NOTE | 2025-06-23 12:09 | XR_ITS ---
FINAL REPORT CLINICAL HISTORY: left ankle fx COMPARISON: 04/28/2025 FINDINGS: AP, oblique, and lateral views of the left ankle were obtained. There has been interval healing of the fracture of the lateral malleolus since the prior exam of 04/28/2025. There is no new fracture or dislocation. The ankle mortise is intact. Soft tissues are unremarkable. IMPRESSION: Interval healing of the fracture of the tip of the lateral malleolus since the prior exam of 04/28/2025. Reviewed, Interpreted and Dictated by Michaela Carlson MD Transcribed by Kelly Masters Authenticated and [facility]
[2025-06-23 12:39] LABS: PHA INR Fingerstick 2.3 (0.9-1.1)
== END 2025-06-23 23:59 | disposition home or self-care (01) ==
LOC: ACC 12:05
PROVIDERS: PCP Family Medicine; Visit Provider Family Medicine
DX: S92.302D Fracture of unspecified metatarsal bone(s), left foot, subsequent encounter for fracture with routine healing (principal); S82.62XD Displaced fracture of lateral malleolus of left fibula, subsequent encounter for closed fracture with routine healing; Z79.01 Long term (current) use of anticoagulants
CPT/HCPCS: 73610; 73630; 85610; 99211; G0463

== ENCOUNTER 2025-07-07 07:47 | Outpatient (CLI) | payer OTHER, SELFPAY ==
--- OUTSIDE RECORDS SUMMARY | 2025-07-07 07:50 | XMS_ITS | Encounter Summary ---
Author Organization [email or web address] ([place], [place], [place], [place]) Address [address] [place] [address] Care Team Providers Care Porcelain Enamel Laborer Name Role Phone Unavailable Primary Care Provider Unavailabl e Encounter Details Date Type Department Care Team (Late st Contact Info) Description 06/21/2021 Transcribed Document [facility] [place] Family Medicine [address] [place] [address] ProviderRikki MD [address] [place] [place], [place] [id number] Social History Tobacco Use Types Packs/Day Years [...] EDT Electronically signed by Giacomo Azar Conversion Car Construction Superintendent Cerner at 01/28/2023 10:57 PM CDT documented in this encounter Plan of Treatment Not on file documented as of this encounter Visit Diagnoses Not on filedocumented in this encounter
--- OUTSIDE RECORDS SUMMARY | 2025-07-07 07:50 | XMS_ITS | Encounter Summary ---
Author Organization [employer] ([place], [place], [place], [place]) Address [address] [place] [address] Care Team Providers Care Science Liaison Name Role Phone Unavailable Primary Care Provider Unavailabl e Encounter Details Date Type Department Care Team (Late st Contact Info) Description 06/22/2021 Transcribed Document [facility] [place] [address] ProviderRikki MD [address] [place] [address] [phone] Social History Tobacco Use Types Packs/Day Years [...]
--- OUTSIDE RECORDS SUMMARY | 2025-07-07 07:50 | XMS_ITS | Encounter Summary ---
Author Organization [email or web address] ([place], [place], [place], [place]) Address [address] [place] [address] Care Team Providers Care Bi Tester Name Role Phone Unavailable Primary Care Provider Unavailabl e Encounter Details Date Type Department Care Team (Late st Contact Info) Description 06/21/2021 Transcribed Document [facility] [place] Medicine [facility] [place] [address] ProviderRikki MD [address] [place] [address] [phone] Social History Tobacco Use Types Packs/Day Years [...] Communication Barrier : None Primary Language : Finnish Any Spiritual/Cultural Needs or Requests : No [...]
--- OUTSIDE RECORDS SUMMARY | 2025-07-07 07:50 | XMS_ITS | Encounter Summary ---
Author Organization [employer] ([place], [place], [place], [place]) Address [address] [place] [address] Care Team Providers Care Workcell Operator Name Role Phone Unavailable Primary Care Provider Unavailabl e Encounter Details Date Type Department Care Team (Late st Contact Info) Description 06/03/2019 Transcribed Document [facility] [place] Family Medicine [address] [place] [address] ProviderRikki MD [address] [place], [place] [phone] Social History Tobacco Use Types Packs/Day Years [...] Communication Barrier : None Primary Language : Sri Lankan Any Spiritual/Cultural Needs or Requests : No [...] - 06/03/2019 11:10 EDT Electronically signed by [facility] Conversion Head Of Marketing Analytics Cerner at 01/28/2023 10:51 PM CDT documented in this encounter Plan of Treatment Not on file documented as of this encounter Visit Diagnoses Not on filedocumented in this encounter
--- OUTSIDE RECORDS SUMMARY | 2025-07-07 07:50 | XMS_ITS | Encounter Summary ---
Author Organization [employer] ([place], [place], [place], [place]) Address [address] [place] [address] Care Team Providers Care Doctor Of Naturopathic Medicine Name Role Phone Unavailable Primary Care Provider Unavailabl e Encounter Details Date Type Department Care Team (Late st Contact Info) Description 06/03/2019 Transcribed Document [facility] [place] [facility] [place] [address] ProviderRikki MD [address] [place] [phone] Social History Tobacco Use Types Packs/Day [...] MD - 06/03/2019 2:51 PM [place] [address] KASSI KONG :1970 Visit Time:06/03/2019 Your Visit Summary Your Care Team Admitting Physician - DRE POWER MARK, MD Attending Physician - MARIEL MCCRAY MD Primary Care Physician - ALVARADO STILES (REF), -[facility] Referring Physician - MARIEL MCCRAY MD [...] in the future. Where: [place] [place] [address]- Allergies SUMAtriptan (Other Anaphylactic Shock, Other Anaphylactic [...] range between ( 0.0 and 7.0 ) [place] #: 0.44 K/uL -- Normal range between ( 0.16 and 1.00 ) Eos #: 0.28 x10(3)/uL -- Normal range between ( 0.00 and 0.80 ) [place] %: 5.2 % -- Normal range between [...] ) Urine Bilirubin Dipstick: Negative Urine Specific [place]da: 1.021 -- Normal range between ( 1.005 [...] stand. This can reduce dizziness. ??? Take ywkm-dze-jcupwcm and prescription medicines only as told by [...] 10/01/2006 Document Revised: 03/08/2017 Document Reviewed: 06/14/2016 [employer] Patient Education ?? 2018 [employer] Head Injury, Adult There are many [...] Ask your health care provider for a hrmn-ze-lgya plan for gradually returning to activities. ??? [...] your friends, family, a trusted colleague, and convention worker about your injury, symptoms, and restrictions. Have them watch for any new or worsening problems. General instructions ??? Take jkfd-nur-ijtobif and prescription medicines only as told by [...] 04/10/2017 Elsevier Interactive Patient Education ?? 2019 [employer] Contusion A contusion is a deep [...] This is often called the RICE strategy. Phnd-epw-bynviui anti-inflammatory medicines may also be recommended for [...] are sitting or lying down. ??? Take pqbj-qaq-oirxshp and prescription medicines only as told by [...] 07/11/2006 Document Revised: 02/08/2017 Document Reviewed: 02/16/2016 [employer] Patient Education ?? 2019 [employer] Concussion, Adult A concussion is a [...] are taking any medicines, including prescription medicines, qbom-txv-btshdjs medicines, and natural remedies. Some medicines, such [...] returning to activities. General instructions ??? Take hfqw-uqh-pxguozr and prescription medicines only as told by [...] Tell your teachers, school nurse, school counselor, curriculum coach, ehr trainer, or convention worker about your injury, symptoms, and restrictions. [...] 12/21/2004 Document Revised: 09/11/2017 Document Reviewed: 09/11/2017 [employer] Patient Education ?? 2019 [employer] Emergency Awareness and Preventative Care STROKE [...] Assistance with quitting is available by contacting 9-539-PEGS-NOW. This is a free resource providing counseling, [...] was given the opportunity to ask questions. Patient/Screen Printing Supervisor Name: Patient/Screen Printing Supervisor Signature: Relationship to Patient: Clinician/Hospital Screen Printing Supervisor Signature: Please Provide a Telephone Number Where You Can Be Reached: Is it Permissible To Leave a Message? Date: Electronically signed by Doe, Giacomo Conversion Experimental Plastics Fabricator Cerner at 01/28/2023 11:06 PM CDT documented in this encounter Plan of Treatment Not on file documented as of this encounter Visit Diagnoses Not on filedocumented in this encounter
--- OUTSIDE RECORDS SUMMARY | 2025-07-07 07:50 | XMS_ITS | Encounter Summary ---
Author Organization [facility] Address [address] [place] [address] Care Team Providers Care Heel Sprayer First Name Role Phone Valentin Daniel MD Primary Care Provider [phone] Reason for Referral * Consultation (Routine) - Authorized Specialty Diagnoses / Procedures Referred By Contac t Referred To Contact Neurology Diagnoses Left foot drop Mechanical problems with limbs Polyneuropathy Valentin Daniel MD [address] [place] [address] Phone: tel: fax: Referral ID Status Reason Start Date Expiration Date Visits Requested Visits Authorized [id number] Authorized Specialty Services Required 02/16/2025 08/18/2026 1 1 Encounter Details Date Type Department Care Team (Late st Contact Info) Description 02/16/2025 Community [facility] [address] [place] [address] Valentin Daniel MD [address] [place] [phone] Left foot drop (Primary Dx); Mechanical [...] Info) Description 10/30/2025 8:00 AM EST Consult [facility] [address] [place] [address] Sim Tillman MD [address] [place] [address] 11/11/2025 12:50 PM EST Office Visit [facility] Medicine Specialties [address] [place] [address] Angela Todd APRN [address] [place] [address] Scheduled Referrals Name Type Priority [...] documented as of this encounter Care Teams Heel Sprayer First Relationship Specialty Start Date End Date Valentin Daniel MD PCP - General 09/18/22 documented as of this encounter
--- OUTSIDE RECORDS SUMMARY | 2025-07-07 07:50 | XMS_ITS | Clinical Summary ---
Author Organization [email or web address] ([place], [place], [place], [place]) Address [address] [place] [address] Care Team Providers Care Harvest Field Ticketer Name Role Phone Unavailable Primary Care Provider [...]
--- OUTSIDE RECORDS SUMMARY | 2025-07-07 07:50 | XMS_ITS | Encounter Summary ---
Author Organization [employer] ([place], [place], [place], [place]) Address [address] [place] [address] Care Team Providers Care Person Investigator Name Role Phone Unavailable Primary Care Provider Unavailabl e Encounter Details Date Type Department Care Team (Late st Contact Info) Description 06/03/2019 Transcribed Document [facility] [place] [facility] [address] ProviderRikki MD [address] [place] [address] [phone] Social History Tobacco Use Types Packs/Day Years [...] EDT Height Source Stated Height Entry Format [place] Height/Length, EQUATORIAL GUINEAN (ft) 5 ft Height/Length EQUATORIAL GUINEAN 3 Inch CLINICALHEIGHT 160.02 cm [place] Body Weight 52.02 kg Weight Source, ED Critical estimated dosing weight Weight Entry Format [place] Weight [place] lb 220 lb CLINICALWEIGHT 100 kg Body [...] Hand pain, wrist pain, fracture, sprain, contusion, RI, head injury, concussion,. Orders Include Previous Orders (Selected) Inpatient Orders Ordered EKG: Completed .Automated Differential: .Urinalysis Microscopic: CBC w/ Auto Diff: CMP Comprehensive Metabolic Panel: CR Hand Min 3 Vws RT: CT Head WO: Cardiac Monitoring: ED Adult Fall Risk Assessment: ED Adult Triage: ED Clinical Reconciliation: ED rn research: Normal Saline Flush: 10 mL, IV Push, [...] Color Yellow Urine Appearance Clear Urine Specific [place] 1.021 Urine pH Dipstick 7.5 Urine Leukocyte [...] % 30.2 % Lymph # 2.54 x10(3)/uL [place] % 5.2 % [place] # 0.44 K/uL Eos % 3.3 % [...] Fall Scale Risk Level 0-24 Low Risk [place] Fall Interventions Adequate lighting, Bed in low position, Call device within reach, Hourly comfort/safety rounds, Non-Slip footwear, Personal items within reach, Reinforced to call for assistance before getting out of bed, Room free of clutter/spills, Upper side-rails up, Wheels locked, Wires/Cords secured Fall Moderate to High Risk Interventions Patient room close to nurses station Communication Barrier None Primary Language [place] Information Obtained From Patient Smoking Status Refused [...] air Height Source Stated Height Entry Format [place] Height/Length, EQUATORIAL GUINEAN (ft) 5 ft Height/Length EQUATORIAL GUINEAN 3 Inch CLINICALHEIGHT 160.02 cm [place] Body Weight 52.02 kg Weight Source, ED Critical estimated dosing weight Weight Entry Format [place] Weight [place] lb 220 lb CLINICALWEIGHT 100 kg Body [...] Ambulate Tracking Acuity 3 - Urgent (Modified) Cottage Supervisor Needed No Accompanied by Unaccompanied Mode of Arrival Ambulatory 06/03/2019 10:46 EDT Nurse Collect Order Detail 3.00 Nurse Collect Order Detail 3.00 . Radiology results: Radiology Results (Last 48 hours) [id number] -- 06/03/2019 10:45 CR Hand Min 3 [...] Adult, Syncope. Follow up with: ALVARADO STILES (REF[facility] Within 2 to 3 days Patient [...]
--- OUTSIDE RECORDS SUMMARY | 2025-07-07 07:50 | XMS_ITS | Encounter Summary ---
Author Organization [employer] ([place], [place], [place], [place]) Address [address] [place] [address] Care Team Providers Care Senior Information Systems Architect Name Role Phone Unavailable Primary Care Provider Unavailabl e Encounter Details Date Type Department Care Team (Late st Contact Info) Description 06/21/2021 Transcribed Document [facility] Family Medicine [facility] [place] [address] ProviderRikki MD [address] [place] [address] [phone] Social History Tobacco Use Types Packs/Day Years [...] : 2 - Emergent Tracking Group : [facility] ED Jasmina Rao RN - 06/21/2021 [...] PNED ; Probability: 0 ; Diagnosis Code: [id number] ED Height and Weight Height Source : Stated Height Entry Format : [place] Height, Feet : 5 ft(Converted to: 152 cm, 60 Inch) Height, Inches : 3 Inch(Converted to: 0 ft 3 Inch, 7.62 cm) Clinical Height : 160.02 cm Weight Source, ED : Critical estimated dosing weight Weight Entry Format : [place] Weight, Pounds : 220 lb Clinical Dosing Weight : 100 kg Body Surface Area (BSA) : 2.02 m2 Body Mass Index : 39.1 kg/m2 (HI) [place] Body Weight (IBW) : 52.02 kg Jasmina Rao RN - 06/21/2021 22:09 EDT documented in this encounter Plan of Treatment Not on file documented as of this encounter Visit Diagnoses Not on filedocumented in this encounter
--- OUTSIDE RECORDS SUMMARY | 2025-07-07 07:50 | XMS_ITS | Encounter Summary ---
Author Organization [employer] ([place], [place], [place], [place]) Address [address] [place] [address] Care Team Providers Care Air Quality Instrument Specialist Name Role Phone Unavailable Primary Care Provider Unavailabl e Encounter Details Date Type Department Care Team (Late st Contact Info) Description 06/22/2021 Transcribed Document [facility] [place] [facility] [place] [address] ProviderRikki MD [address] [place] [phone] Social History Tobacco Use Types Packs/Day Years [...]
--- OUTSIDE RECORDS SUMMARY | 2025-07-07 07:50 | XMS_ITS | Encounter Summary ---
Author Organization [employer] ([place], [place], [place], [place]) Address [address] [place] [address] Care Team Providers Care Cabinetmaker Maintenance Name Role Phone Unavailable Primary Care Provider Unavailabl e Encounter Details Date Type Department Care Team (Late st Contact Info) Description 06/22/2021 Transcribed Document [facility] [place] [facility] [place] [address] ProviderRikki MD [address] [place] [address] [phone] Social History Tobacco Use Types Packs/Day Years [...]
--- OUTSIDE RECORDS SUMMARY | 2025-07-07 07:50 | XMS_ITS | Encounter Summary ---
Author Organization [employer] ([place], [place], [place], [place]) Address [address] [place] [address] Care Team Providers Care Meter Repairer Helper Name Role Phone Unavailable Primary Care Provider Unavailabl e Encounter Details Date Type Department Care Team (Late st Contact Info) Description 06/21/2021 Transcribed Document [facility] [place] [address] [place] [address] ProviderRikki MD [address] [place], [place] [phone] Social History Tobacco Use Types Packs/Day Years [...]
--- OUTSIDE RECORDS SUMMARY | 2025-07-07 07:50 | XMS_ITS | Encounter Summary ---
Author Organization [employer] ([place], [place], [place], [place]) Address [address] [place] [address] Care Team Providers Care Pairer Substandard Name Role Phone Unavailable Primary Care Provider Unavailabl e Encounter Details Date Type Department Care Team (Late st Contact Info) Description 06/22/2021 Transcribed Document [facility] [place] [address] ProviderRikki MD [address] [place] [address] [phone] Social History Tobacco Use Types Packs/Day Years [...] 1970 Associated Diagnoses: Chest wall pain Author: OCBY ALVARENGA PA-C Basic Information Additional information: Chief [...] had a heart cath done by her dump truck driver off highway in [place] in February, she did not have any [...] EDT Height Source Stated Height Entry Format White Height/Length, PERSIAN (ft) 5 ft Height/Length PERSIAN 3 Inch CLINICALHEIGHT 160.02 cm [place] Body Weight 52.02 kg Weight Source, ED Critical estimated dosing weight Weight Entry Format White Weight Tristanian lb 220 lb CLINICALWEIGHT 100 kg Body [...] Triage: ED C-SSRS: ED Clinical Reconciliation: ED shop and alteration tailor: EKG: Normal Saline Flush: 10 mL, IV [...] % 30.8 % Lymph # 3.02 x10(3)/uL [place] % 5.3 % [place] # 0.52 K/uL Eos % 2.4 % [...]
--- OUTSIDE RECORDS SUMMARY | 2025-07-07 07:50 | XMS_ITS | Referral Summary ---
Author Organization [employer] ([place], [place], [place], [place]) Address [address] [place] [address] Care Team Providers Care Utilization Supervisor Name Role Phone Unavailable Primary Care [...]
--- OUTSIDE RECORDS SUMMARY | 2025-07-07 07:50 | XMS_ITS | Encounter Summary ---
Author Organization [facility] Address [address] [place] [address] Care Team Providers Care Ceramic Artist Name Role Phone Valentin Daniel MD Primary Care Provider [phone] Reason for Visit * Reason Comments Med Refill Encounter Details Date Type Department Care Team (Late st Contact Info) Description 05/13/2025 Refill [place] [facility] [address] [place] [address] Angela Todd L, SUPERVISOR PIPE FINISHING [address] [place] [address] Social History Tobacco Use Types [...] Info) Description 10/30/2025 8:00 AM EST Consult [place] [facility] [address] [place] [address] iSm Tillman MD [address] [place] [address] 11/11/2025 12:50 PM EST Office Visit [facility] Medicine Specialties [address] [place] [address] Angela Todd APRN [address] [place] [address] documented as of this encounter [...] documented as of this encounter Care Teams Ceramic Artist Relationship Specialty Start Date End Date Valentin Daniel MD PCP - General 09/18/22 documented as of this encounter
--- OUTSIDE RECORDS SUMMARY | 2025-07-07 07:50 | XMS_ITS | Encounter Summary ---
Author Organization [facility] Address [address] [place] [address] Care Team Providers Care Specialist Icu Name Role Phone Valentin Daniel MD Primary Care Provider [phone] Encounter Details Date Type Department Care Team (Latest Contact Info) Description 02/05/2025 Community [facility] [address] [place] [address] Valentin Daniel MD [address] [place] [address] Polyneuropathy (Primary Dx); Foot drop, left foot [...] Consult [place] [facility] [address] [place] [address] Sim Tillman MD [address] [place] [address] 11/11/2025 12:50 PM EST Office Visit [place] [facility] [address] [place] [address] Angela Todd, VULCAN CREWMEMBER [address] [facility] [address] [place] [address] documented as of this encounter [...] documented as of this encounter Care Teams Specialist Icu Relationship Specialty Start Date End Date Valentin Daniel MD PCP - General 09/18/22 documented as of this encounter
--- OUTSIDE RECORDS SUMMARY | 2025-07-07 07:50 | XMS_ITS | Encounter Summary ---
Author Organization [facility] Address [address] [place] [address] Care Team Providers Care Mountain Guide Name Role Phone Valentin Daniel MD Primary Care Provider [phone] Encounter Details Date Type Department Care Team (Late st Contact Info) Description 05/11/2025 Results Follow-Up [facility] Medicine Specialties [address] [place] [address] Angela Todd, STERILE INSTRUMENT TECHNICIAN [address] [place] [address] Social History Tobacco Use Types [...] Info) Description 10/30/2025 8:00 AM EST Consult [facility] [address] [place] [address] Sim Tillman MD [address] [place] [address] 11/11/2025 12:50 PM EST Office Visit [facility] Medicine Specialties [address] [place] [address] Angela Todd APRN [address] [place] [address] documented as of this encounter [...] documented as of this encounter Care Teams Mountain Guide Relationship Specialty Start Date End Date Valentin Daniel MD PCP - General 09/18/22 documented as of this encounter
--- OUTSIDE RECORDS SUMMARY | 2025-07-07 07:50 | XMS_ITS | Encounter Summary ---
Author Organization [employer] ([place], [place], [place], [place]) Address [address] [place] [address] Care Team Providers Care Screening Technician Name Role Phone Unavailable Primary Care Provider Unavailabl e Encounter Details Date Type Department Care Team (Late st Contact Info) Description 06/03/2019 Transcribed Document [facility] [place] [facility] [place] [address] ProviderRikki MD [address] [place] [id number] Social History Tobacco Use Types Packs/Day [...] Montoya MD - 06/03/2019 2:51 PM CD[place] [id number] KASSI KONG :1970 Visit Time:06/03/2019 Your Visit Summary Your Care Team Admitting Physician - DRE POWER MARK, MD Attending Physician - MARIEL MCCRAY MD Primary Care Physician - ALVARADO STILES (REF), -[facility] Referring Physician - MARIEL MCCRAY MD [...] in the future. Where: [place] [place] [address]- Allergies SUMAtriptan (Other Anaphylactic Shock, Other Anaphylactic [...] range between ( 0.0 and 7.0 ) [place] #: 0.44 K/uL -- Normal range between ( 0.16 and 1.00 ) Eos #: 0.28 x10(3)/uL -- Normal range between ( 0.00 and 0.80 ) [place] %: 5.2 % -- Normal range between [...] ) Urine Bilirubin Dipstick: Negative Urine Specific [place]: 1.021 -- Normal range between ( 1.005 [...] stand. This can reduce dizziness. ??? Take indc-obz-nodjzec and prescription medicines only as told by [...] 10/01/2006 Document Revised: 03/08/2017 Document Reviewed: 06/14/2016 [employer] Interactive Patient Education ?? 2018 [employer] Head Injury, Adult There are many [...] Ask your health care provider for a xgwo-el-bjjs plan for gradually returning to activities. ??? [...] your friends, family, a trusted colleague, and workcell operator about your injury, symptoms, and restrictions. Have them watch for any new or worsening problems. General instructions ??? Take tkhy-tws-gnkfkfq and prescription medicines only as told by [...] 04/10/2017 Else[employer] Interactive Patient Education ?? 2019 [employer] Contusion A contusion is a deep [...] This is often called the RICE strategy. Ulos-alz-dbzkufo anti-inflammatory medicines may also be recommended for [...] are sitting or lying down. ??? Take tqkx-xbd-cgevmbs and prescription medicines only as told by [...] 07/11/2006 Document Revised: 02/08/2017 Document Reviewed: 02/16/2016 [employer] Interactive Patient Education ?? 2019 [employer] Concussion, Adult A concussion is a [...] are taking any medicines, including prescription medicines, mxmr-zvy-uegkjvh medicines, and natural remedies. Some medicines, such [...] returning to activities. General instructions ??? Take bdwx-ube-frhlnoc and prescription medicines only as told by [...] your teachers, school nurse, school counselor, health care coach, senior technical trainer, or workcell operator about your injury, symptoms, and restrictions. Tell [...] 12/21/2004 Document Revised: 09/11/2017 Document Reviewed: 09/11/2017 [employer] Interactive Patient Education ?? 2019 [employer] Emergency Awareness and Preventative Care STROKE [...] Assistance with quitting is available by contacting 5-898-TQUM-NOW. This is a free resource providing counseling, [...] was given the opportunity to ask questions. Patient/Director Of Procurement Name: Patient/Director Of Procurement Signature: Relationship to Patient: Clinician/Hospital Director Of Procurement Signature: Please Provide a Telephone Number Where You Can Be Reached: Is it Permissible To Leave a Message? Date: documented in this encounter Plan of Treatment Not on file documented as of this encounter Visit Diagnoses Not on filedocumented in this encounter
--- OUTSIDE RECORDS SUMMARY | 2025-07-07 07:50 | XMS_ITS | Clinical Summary ---
Author Organization [facility] Address [address] [place] [address] Care Team Providers Care Value Advisor Name Role Phone Provider, No Known Primary [...] (2 - Td or Tdap) 06/20/2021 011 INFLUENZA VACCINE 05/15/2025 08/06/2023, , 07/07/2021, Additional history exists ZOSTER VACCINE Completed 01/16/2022, 07/27/2021 Insurance [employer] Care Teams Value Advisor Relationship Specialty Start Date End Date Provider, [place] [address] PCP - General 08/09/23
--- OUTSIDE RECORDS SUMMARY | 2025-07-07 07:50 | XMS_ITS | Encounter Summary ---
Author Organization [employer] ([place], [place], [place], [place]) Address [address] [place] [address] Care Team Providers Care Industrial Maintenance Millwright Name Role Phone Unavailable Primary Care Provider Unavailabl e Encounter Details Date Type Department Care Team (Late st Contact Info) Description 06/03/2019 Transcribed Document [facility] [place] [facility] [place] [address] ProviderRikki MD [address], [place] [id number] Social History Tobacco Use Types Packs/Day Years [...]
--- OUTSIDE RECORDS SUMMARY | 2025-07-07 07:50 | XMS_ITS | Encounter Summary ---
Author Organization [employer] ([place], [place], [place], [place]) Address [address] [place] [address] Care Team Providers Care Sales And Marketing Professional Name Role Phone Unavailable Primary Care Provider Unavailabl e Encounter Details Date Type Department Care Team (Late st Contact Info) Description 06/11/2019 Transcribed Document [facility] [place] [address] [place] [address] ProviderRikki MD [address] [place], [place] [id number] Social History Tobacco Use Types Packs/Day Years [...]
--- OUTSIDE RECORDS SUMMARY | 2025-07-07 07:50 | XMS_ITS | Encounter Summary ---
Author Organization [employer] ([place], [place], [place], [place]) Address [address] [place] [address] Care Team Providers Care Access Specialist Name Role Phone Unavailable Primary Care Provider Unavailabl e Encounter Details Date Type Department Care Team (Late st Contact Info) Description 06/03/2019 Transcribed Document [facility] [place] [address] ProviderRikki MD [address] [place] [phone] Social History Tobacco Use Types Packs/Day Years [...] 06/03/2019 15:02 EDT Electronically signed by [facility] Conversion [employer] Platemaker Cerner at 01/28/2023 11:05 PM CDT documented in this encounter Plan of Treatment Not on file documented as of this encounter Visit Diagnoses Not on filedocumented in this encounter
--- OUTSIDE RECORDS SUMMARY | 2025-07-07 07:50 | XMS_ITS | Clinical Summary ---
Author Organization [facility] Address [address] [place] [address] Care Team Providers Care Sonar Watchstander Name Role Phone Valentin Daniel MD Primary Care Provider [phone] Allergies Active Allergy Reactions Criticality Noted Date [...] cream 01/21/20 21 Active ergocalciferol 1.25 MG (86404 UT) capsule TAKE ONE CAPSULE BY MOUTH EVERY WEEK DIRECTED 03/01/20 21 Active HYDROcodone-acetam inophen ([place]) 10-325 MG tablet TAKE ONE TABLET BY [...] MG tablet 01/28/20 24 Active nystatin (Mycostatin) 680404 UNIT/GM powder 02/01/20 24 Active omeprazole (PriLOSEC) [...] Type Department Care Team Description 05/13/2025 Refill [facility] Medicine Specialties [address] [place] [address] Angela Todd, INSURANCE SALES AGENT 05/11/2025 Results Follow-Up [facility] Specialties [address] [place] [address] Angela Todd, INSURANCE SALES AGENT 05/06/2025 1:20 PM EDT Office Visit [facility]ties [address] [place] [address] Angela Todd, INSURANCE SALES AGENT Positive RENETTA (antinuclear antibody) (Primary Dx); High [...] Info) Description 10/30/2025 8:00 AM EST Consult [facility] [address], [address] [place] [address] Sim Tillman MD [address] [place] [address] 11/11/2025 12:50 PM EST Office Visit [facility] Medicine Specialties [address] [place] [address] Angela Todd APRN [address] [place] [address] Health Maintenance Due Date Last [...] Vaccine: 50+ Years (2 of 2 - PCV20 or PCV21) 2021 07/29/2019 [facility]-DTaP,Tdap,and Td Vaccines (2 - Td or Tdap) 06/20/2021 06/20/2011 [id number]-86 Vaccine ( season) 2025 07/14/2021, 11/17/2020, 10/28/2020 UK[facility]-Influenza Vaccine [...] APRN LAB URINE ORDERABLES Veronica syed Result [facility] [address] [place] [address] * Protein, Random, Urine with Creatinine (05/06/2025 2:30 PM EDT) Protein, Urine 20 mg/dL 05/06/2025 4:34 PM EDT [facility] Creatinine, Urine 141 mg/dL 05/06/2025 4:34 PM EDT [facility] Protein/Creatin ine Ratio 0.1 mg/mg Creat 05/06/2025 4:34 PM EDT [facility] Urine Urine specimen obtained by clean catch procedure / Unknown Non-blood Collection / Unknown 05/06/2025 2:30 PM EDT 05/06/2025 2:30 PM EDT us Angela Todd APRN LAB URINE ORDERABLES Veronica kunal Result [facility] [address] [place] [address] * (ABNORMAL) Urinalysis with reflex microscopic (Culture NOT Included) (05/06/2025 2:30 PM EDT) Color, Urine Dark Yellow LAB URINALYSIS - AUTOMATED METHOD 05/06/2025 4:28 PM EDT [facility] Clarity, Urine Cloudy LAB URINALYSIS - AUTOMATED METHOD 05/06/2025 4:28 PM EDT [facility] Spec Farnam, Urine 1.026 1.005 - 1.030 LAB URINALYSIS - AUTOMATED METHOD 05/06/2025 4:28 PM EDT [facility] pH, Urine 5.5 5.0 - 8.0 LAB URINALYSIS - AUTOMATED METHOD 05/06/2025 4:28 PM EDT [facility] Protein, Urine 30(A) Negative mg/dL LAB URINALYSIS - AUTOMATED METHOD 05/06/2025 4:28 PM EDT [facility] Glucose, Urine >=1000(A) Negative mg/dL LAB URINALYSIS - AUTOMATED METHOD 05/06/2025 4:28 PM EDT [facility] Ketones, Urine Trace(A) Negative mg/dL LAB URINALYSIS - AUTOMATED METHOD 05/06/2025 4:28 PM EDT [facility] Blood, Urine Large(A) Negative LAB URINALYSIS - AUTOMATED METHOD 05/06/2025 4:28 PM EDT [facility] Bilirubin, Urine Small(A) Negative LAB URINALYSIS - AUTOMATED METHOD 05/06/2025 4:28 PM EDT [facility] Urobilinogen, Urine 0.2 0.2 to 1.0 mg/dL LAB URINALYSIS - AUTOMATED METHOD 05/06/2025 4:28 PM EDT [facility] Leukocytes, Urine Negative Negative LAB URINALYSIS - AUTOMATED METHOD 05/06/2025 4:28 PM EDT [facility] Nitrite, Urine Negative Negative LAB URINALYSIS - AUTOMATED METHOD 05/06/2025 4:28 PM EDT [facility] RBC, Urine >50(A) 0 to 3 /HPF LAB URINALYSIS - AUTOMATED METHOD 05/06/2025 4:28 PM EDT [facility] WBC, Urine 6 - 10(A) 0 to 5 /HPF LAB URINALYSIS - AUTOMATED METHOD 05/06/2025 4:28 PM EDT [facility] Squamous Epithelial Cells 0 - 2 0 to 5 /HPF LAB URINALYSIS - AUTOMATED METHOD 05/06/2025 4:28 PM EDT [facility] Hyaline Casts 0 - 2 0 to 5 /LPF LAB URINALYSIS - AUTOMATED METHOD 05/06/2025 4:28 PM EDT [facility] Bacteria, Urine Negative Negative LAB URINALYSIS - AUTOMATED METHOD 05/06/2025 4:28 PM EDT [facility] Renal Tubular Cells Present Absent 05/06/2025 4:28 PM EDT [facility] Transitional Epithelial Cells Present Absent 05/06/2025 4:28 PM EDT [facility] Calcium Oxalate Crystals Present Absent 05/06/2025 4:28 PM EDT [facility] Urine Urine specimen obtained by clean catch procedure / Unknown Non-blood Collection / Unknown 05/06/2025 2:30 PM EDT 05/06/2025 2:30 PM EDT Narrative [facility] - 05/06/2025 4:28 PM EDT Performed by manual method us Angela Todd APRN LAB URINE ORDERABLES Veronica syed Result [facility] [address] [place] [address] * Double-Stranded DNA (dsDNA) Antibody, IgG by IFA (05/06/2025 2:08 PM EDT) Double-Strande d DNA (dsDNA) Ab IgG IFA <1:10 <1:10 05/08/2025 11:43 PM EDT [facility] ([facility]) Blood Venous blood specimen / Unknown Venipuncture / Unknown 05/06/2025 2:08 PM EDT 05/06/2025 2:09 PM EDT Narrative [facility] ([facility]) - 05/08/2025 11:43 PM EDT INTERPRETIVE [...] recommendations for testing may be found at https://Enjoyor/content/ezsvpinnkc-wwtxmy-qgmcquob. Performed By: [facility] [address] [place] [address] Documentation Specialist: Abundio Urias MD, PhD CLIA Number: [id number] Angela Todd APRN LAB BLOOD ORDERABLES Veronica syed Result [facility] ([facility]) [address] [place] [address] * Creatinine, Plasma (05/06/2025 2:08 PM EDT) Creatinine, Plasma 0.62 0.60 - 1.10 mg/dL 05/06/2025 3:35 PM EDT [facility] eGFRcr 106.0 mL/min/1.7 3m*2 05/06/2025 3:35 PM EDT [facility] Comment:Reported eGFRcr in m L/min/1.73m2 is based the CKD-EPI 2020 equation that does not use a race coefficient. Blood Venous blood specimen / Unknown Venipuncture / Unknown 05/06/2025 2:08 PM EDT 05/06/2025 2:09 PM EDT us Angela Todd APRN LAB BLOOD ORDERABLES Veronica syed Result [facility] [address] [place] [address] * (ABNORMAL) Sedimentation Rate, Automated (05/06/2025 2:08 PM EDT) Pathologist [facility] [place] Sedimentation Rate 38(H) <30 mm/hr 2024 4:06 PM EDT [facility] Blood Venous blood specimen / Unknown Venipuncture / Unknown 05/06/2025 2:08 PM EDT 05/06/2025 2:09 PM EDT Angela Todd APRN LAB BLOOD ORDERABLES Veronica syed Result Performing Organization Address City/[facility]/ZIP Co de Phone Number [facility] [address] [place] [address] * (ABNORMAL) CBC and Differential (05/06/2025 2:08 PM EDT) WBC Count 9.44 3.70 - 10.30 10*3/uL LAB HEMATOLOGY METHOD 05/06/2025 3:39 PM EDT [facility] RBC Count 5.15 3.90 - 5.20 10*6/uL LAB HEMATOLOGY METHOD 05/06/2025 3:39 PM EDT [facility] HGB 14.4 11.2 - 15.7 g/dL LAB HEMATOLOGY METHOD 05/06/2025 3:39 PM EDT [facility] HCT 44.7 34.0 - 45.0 % LAB HEMATOLOGY METHOD 05/06/2025 3:39 PM EDT [facility] Platelet Count 337 155 - 369 10*3/uL LAB HEMATOLOGY METHOD 05/06/2025 3:39 PM EDT [facility] MCV 87 79 - 98 fL LAB HEMATOLOGY METHOD 05/06/2025 3:39 PM EDT [facility] MCH 28.0 26.0 - 32.0 pg LAB HEMATOLOGY METHOD 05/06/2025 3:39 PM EDT [facility] MCHC 32.2 30.7 - 35.5 g/dL LAB HEMATOLOGY METHOD 05/06/2025 3:39 PM EDT [facility] RDW 13.9 11.5 - 14.5 % LAB HEMATOLOGY METHOD 05/06/2025 3:39 PM EDT [facility] MPV 11.9 8.8 - 12.5 fL LAB HEMATOLOGY METHOD 05/06/2025 3:39 PM EDT [facility] nRBC 0.0 <=0.0 per 100 WBCs LAB HEMATOLOGY METHOD 05/06/2025 3:39 PM EDT [facility] Differential Type Automated LAB HEMATOLOGY METHOD 05/06/2025 3:39 PM EDT [facility] Neutrophils % 56 % LAB HEMATOLOGY METHOD 05/06/2025 3:39 PM EDT [facility] Lymphocytes % 32 % LAB HEMATOLOGY METHOD 05/06/2025 3:39 PM EDT [facility] Monocytes % 6 % LAB HEMATOLOGY METHOD 05/06/2025 3:39 PM EDT [facility] Eosinophils % 5 % LAB HEMATOLOGY METHOD 05/06/2025 3:39 PM EDT [facility] Basophils % 1 % LAB HEMATOLOGY METHOD 05/06/2025 3:39 PM EDT [facility] Immature Granulocytes % 0 % LAB HEMATOLOGY METHOD 05/06/2025 3:39 PM EDT [facility] Neutrophils Absolute 5.32 1.60 - 6.10 10*3/uL LAB HEMATOLOGY METHOD 05/06/2025 3:39 PM EDT [facility] Lymphocytes Absolute 3.00 1.20 - 3.90 10*3/uL LAB HEMATOLOGY METHOD 05/06/2025 3:39 PM EDT [facility] Monocytes Absolute 0.56 0.30 - 0.90 10*3/uL LAB HEMATOLOGY METHOD 05/06/2025 3:39 PM EDT [facility] Eosinophils Absolute 0.43 0.00 - 0.50 10*3/uL LAB HEMATOLOGY METHOD 05/06/2025 3:39 PM EDT [facility] Basophils Absolute 0.11(H) 0.00 - 0.10 10*3/uL LAB HEMATOLOGY METHOD 05/06/2025 3:39 PM EDT [facility] Immature Granulocytes Absolute 0.02 0.00 - 0.06 10*3/uL LAB HEMATOLOGY METHOD 05/06/2025 3:39 PM EDT [facility] Blood Venous blood specimen / Unknown Venipuncture / Unknown 05/06/2025 2:08 PM EDT 05/06/2025 2:09 PM EDT Narrative [facility] - 05/06/2025 3:39 PM EDT Therapeutic decision making should be based on absolute values, rather than percentages. us Angela Todd APRN LAB BLOOD ORDERABLES Veronica l Result [facility] [address] [place] [address] * C3 Complement (05/06/2025 2:08 PM EDT) C3 Complement 149 84 - 166 mg/dL 05/06/2025 3:30 PM EDT [facility] Blood Venous blood specimen / Unknown Venipuncture / Unknown 05/06/2025 2:08 PM EDT 05/06/2025 2:09 PM EDT us Anegla Todd APRN LAB BLOOD ORDERABLES Veronica l Result Performing Organization Address City/[facility] [place] [address] * C4 Complement (05/06/2025 2:08 PM EDT) C4 Complement 25 13 - 36 mg/dL 05/06/2025 3:30 PM EDT [facility] Blood Venous blood specimen / Unknown Venipuncture / Unknown 05/06/2025 2:08 PM EDT 05/06/2025 2:09 PM EDT Angela Todd INSURANCE SALES AGENT LAB BLOOD [place] [address] * C-Reactive Protein, Plasma (05/06/2025 2:08 PM EDT) CRP, Plasma <3.0 <=8.0 mg/L 05/06/2025 3:35 PM EDT [facility] Blood Venous blood specimen / Unknown Venipuncture / Unknown 05/06/2025 2:08 PM EDT 05/06/2025 2:09 PM EDT Narrative [facility] - 05/06/2025 3:35 PM EDT This CRP test is appropriate for assessment of infection, systemic inflammation and/or tissue injury. To assess cardiovascular disease risk order high sensitivity CRP (CRPH). us Angela Todd APRN LAB BLOOD ORDERABLES Veronica l Result [facility] [address] [place] [address] * (ABNORMAL) Hepatic Function Panel (05/06/2025 2:08 PM EDT) Direct Bilirubin, Plasma <0.2 <=0.3 mg/dL 05/06/2025 3:35 PM EDT [facility] Alkaline Phosphatase, Plasma 107(H) 35 - 104 U/L 05/06/2025 3:35 PM EDT [facility] Total Bilirubin, Plasma 0.2 0.2 - 1.1 mg/dL 05/06/2025 3:35 PM EDT [facility] Albumin, Plasma 3.9 3.5 - 5.2 g/dL 05/06/2025 3:35 PM EDT [facility] Total Protein 7.2 6.3 - 7.9 g/dL 05/06/2025 3:35 PM EDT [facility] ALT, Plasma 43(H) 10 - 35 U/L 05/06/2025 3:35 PM EDT [facility] AST, Plasma 35 10 - 35 U/L 05/06/2025 3:35 PM EDT [facility] Blood Venous blood specimen / Unknown Venipuncture / Unknown 05/06/2025 2:08 PM EDT 05/06/2025 2:09 PM EDT Angela Todd INSURANCE SALES AGENT LAB BLOOD ORDERABLES Veronica l Result [facility] [address] [place] [address] from Last 3 Months Additional Health Concerns Infection Onset Date 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
--- OUTSIDE RECORDS SUMMARY | 2025-07-07 07:50 | XMS_ITS | Encounter Summary ---
Author Organization [employer] ([place], [place], [place], [place]) Address [address] [place] [address] Care Team Providers Care White Metal Caster Name Role Phone Unavailable Primary Care Provider Unavailabl e Encounter Details Date Type Department Care Team (Late st Contact Info) Description 06/03/2019 Transcribed Document [facility] Family Medicine [address] [place] [address] ProviderRikki MD [address], [place] [phone] Social History Tobacco Use Types Packs/Day Years [...] Recent Thoughts of Harming/Killing Others : No Personnel Scheduler Needed : No MARC GREENWOOD RN - [...] PNED ; Probability: 0 ; Diagnosis Code: [id number] ED Height and Weight Height Source : Stated Height Entry Format : [place] Height, Feet : 5 ft(Converted to: 152 cm, 60 Inch) Height, Inches : 3 Inch(Converted to: 0 ft 3 Inch, 7.62 cm) Clinical Height : 160.02 cm Weight Source, ED : Critical estimated dosing weight Weight Entry Format : [place] Weight, Pounds : 220 lb Clinical Dosing Weight : 100 kg Body Surface Area (BSA) : 2.02 m2 Body Mass Index : 39.1 kg/m2 ([place]) [place] Body Weight (IBW) : 52.02 kg MARC [...]
--- OUTSIDE RECORDS SUMMARY | 2025-07-07 07:50 | XMS_ITS | Encounter Summary ---
Author Organization [employer] ([place], [place], [place], [place]) Address [address] [place] [address] Care Team Providers Care Senior Payroll Manager Name Role Phone Unavailable Primary Care Provider Unavailabl e Encounter Details Date Type Department Care Team (Late st Contact Info) Description 06/03/2019 Transcribed Document [facility] [place] [address] ProviderRikki MD [address] [place] [phone] Social History Tobacco Use Types Packs/Day Years [...]
--- OUTSIDE RECORDS SUMMARY | 2025-07-07 07:50 | XMS_ITS | Encounter Summary ---
Author Organization [employer] ([place], [place], [place], [place]) Address [address] [place] [address] Care Team Providers Care Bushel Girl Name Role Phone Unavailable Primary Care Provider Unavailabl e Encounter Details Date Type Department Care Team (Late st Contact Info) Description 06/22/2021 Transcribed Document [facility] [place] Family [place] [address] ProviderRikki MD [address] [place] [address] Social History Tobacco Use Types Packs/Day [...] AM CDT [facility] [place] [address] KASSI KONG :1970 Visit Time:06/21/2021 [...] to 3 days Where: [place] [address]- [facility] (1) Allergies SUMAtriptan (Other Anaphylactic Shock, [...] range between ( 0.0 and 7.0 ) [place] #: 0.52 K/uL -- Normal range between ( 0.16 and 1.00 ) Eos #: 0.24 x10(3)/uL -- Normal range between ( 0.00 and 0.80 ) [place] %: 5.3 % -- Normal range between [...] these instructions at home: Medicines ??? Take oduj-isl-hulrwgl and prescription medicines only as told by [...] provider. Document Revised: 04/03/2019 Document Reviewed: 04/03/2019 [employer] Patient Education ?? 2020 [employer]. Emergency Awareness and Preventative Care STROKE is [...] Assistance with quitting is available by contacting 0-426-UORC-NOW. This is a free resource providing counseling, [...] was given the opportunity to ask questions. Patient/Transistor Tester Name: Patient/Transistor Tester Signature: Relationship to Patient: Clinician/Hospital Transistor Tester Signature: Please Provide a Telephone Number Where You Can Be Reached: Is it Permissible To Leave a Message? Date: documented in this encounter Plan of Treatment Not on file documented as of this encounter Visit Diagnoses Not on filedocumented in this encounter
[2025-07-07 11:39] LABS: PHA INR Fingerstick 3.0 (0.9-1.1)
== END 2025-07-07 11:40 ==
LOC: ACC 07:48
PROVIDERS: PCP Family Medicine; Visit Provider Family Medicine
DX: Z79.01 Long term (current) use of anticoagulants (principal)
CPT/HCPCS: 85610; 99211; G0463

== ENCOUNTER 2025-07-13 08:00 | Outpatient (RCR) | payer OTHER, SELFPAY ==
--- NOTE | 2025-06-24 14:41 | HMH.PTOPEV ---
PT Evaluation Rehab PT Outpatient Evaluation Start: 06/24/25 08:09 Freq: Status: Active Protocol: Document 06/24/25 08:10 ANDREA (Rec: 06/24/25 14:41 ANDREA [id number]) E-signed By Zoë Melgar, PT Outpatient Therapy Subjective History Subjective History Pt is a 55 y/o female referred to PT for left ankle fracture. Pt reports in December she tripped going up steps due to residual L foot drop from a stroke 3 years ago and fractured her L fifth metatarsal. Pt states she then fell in her yard on 04/05/25 and broke her L distal fibula. Pt had foot/ankle xrays on 06/23/25 with impressions of Interval healing of the fracture of the tip of the lateral malleolus since the prior exam of . Interval healing of the fracture involving the base of the fifth metatarsal. No acute osseous abnormality identified. Pt reports she has been ambulating WBAT in an ankle brace/tennis shoe with use of a SPC for 1.5 weeks with good tolerance. Pt states she saw ortho yesterday who recommended continuing use of ankle brace and assistive device for at least 2 more weeks. Pt reports she returns to ortho in 4 weeks for her next follow-up appointment. Pt reports current symptoms of intermittent brief sharp pain of the lateral foot and ankle with prolonged standing, walking , turning her foot in/out, twisting/pivoting on the LLE , and incline walking. Pt also reports continued swelling that is worse at the end of the day. Pt reports chronic paresthesia of the left leg including the medial left foot and great toe due to chronic LBP addressed surgically in 2011. Pt reports she does have an AFO she wore daily for left foot drop prior to recent injuries. 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 Chief Complaint Pain,Stiff,Swelling,Weakness Symptom Type Ache,Sharp,Dull Symptoms Relieved By Elevation Symptoms Aggravated Standing,Physical Activity,Twisting,Walking By Current Functional Housework,Standing,Recreation Activity,Walking,Stairs, Limitations Balance Symptom Description Intermittent Level of pain today 0 (0-10) Pain scale - at its 0 best (0-10) Pain scale - at its 6 worst (0-10) Ankle/Foot Eval Gait Observation General Gait Pattern Antalgic Gait,Decrease Weight Bear (L) Observation Assistive Device Ambulation Assistive Straight Cane Device Palpation Tenderness left Ankle/Foot Palpation Tenderness Findings Ankle/Foot Palpation peroneal tt, medial malleoli, PF origin Overall Comment ROM Ankle/Foot 0 Dorsiflexion w/Knee Extended Active Range Motion ( degrees) Ankle/Foot 10 Dorsiflexion w/Knee Extended Passive Range (degrees) Ankle/Foot Plantar 10 Flexion Active Range of Motion (degrees) Ankle/Foot Plantar 30 Flexion Passive Range of Motion ( degrees) Ankle/Foot Eversion 2 Active Range of Motion (degrees) Ankle/Foot Eversion 8 Passive Range of Motion (degrees) Ankle/Foot Inversion 6 Active Range of Motion (degrees) Ankle/Foot Inversion 15 Passive Range of Motion (degrees) MMT Ankle Dorsiflexion 1 Trace Strength Grade Ankle Plantarflexion 3+ Fair+ Strength Grade Foot Eversion 2+ Poor+ Strength Grade Foot Inversion 2+ Poor+ Strength Grade Balance Eval Rhomberg Feet Together/Eyes pass open/Stable Surface Feet Together/Eyes fail Closed/Stable Surface Feet Together/Eyes fail open/Unstable Surface Feet Together/Eyes fail Closed/Unstable Surface Lower Extremity Functional Index Activities Today, do you or would you have any difficulty at all with: a.Any of your usual Moderate difficulty work, housework or school activities b. Your usual Moderate difficulty hobbies, recreational or sporting activities c. Getting into or A little bit of difficulty out of the bath d. Walking between A little bit of difficulty rooms e. Putting on your No difficulty shoes or socks f. Squatting Quite a bit of difficulty g. Lifting an object No difficulty , like a bag of groceries from the floor h. Performing light No difficulty activities around your home i. Performing heavy Moderate difficulty activities around your home j. Getting into or No difficulty out of a car k. Walking 2 blocks Quite a bit of difficulty l. Walking a mile Extreme difficulty or unable to perform activity m. Going up or down A little bit of difficulty 10 stairs (about 1 flight of stairs) n. Standing for 1 Extreme difficulty or unable to perform activity hour o. Sitting for 1 No difficulty hour p. Running on even Extreme difficulty or unable to perform activity ground q. Running on uneven Extreme difficulty or unable to perform activity ground r. Making sharp Extreme difficulty or unable to perform activity turns while running fast s. Hopping Extreme difficulty or unable to perform activity t. Rolling over in No difficulty bed LEFI Score Lower Extremity 41 Functional Index Score Miscellaneous Dx PT Eval Objective Objective LLE edema: Malleoli circumference: 23cm; figure 8 circumference 53cm Outpatient Therapy Assessment Impairments Problems/ Palpation Tenderness,Impaired Range of Motion,Impaired Impairmments Strength,Impaired Gait Pattern,Impaired Walking, Impaired Standing,Impaired Household Care,Impaired Stair Climbing,Impaired Incline Stepping,Impaired Stepping on Uneven Surface,Impaired Balance,Increased Edema,Subjective C/O Pain,Impaired Self Care/Self Management Prognosis Rehab Potential Good Comment Barriers to progress include history of stroke resulting in L foot drop Clinical Impression Consistent with Yes Diagnosis PT Patient Goals PT Patient Goals PT Short Term 3 weeks: Patient Goals 1. Verbalize compliance with HEP to assist with overall progress 2. Improve LEFS score to 46/80 to improve overall QOL/ function 3. Perform balance activity feet together eyes closed firm surface for 30 without LOB to decrease fall risk. PT Penitentiary Patient 6 weeks: Goals 1. Improve pain at worst to 2-4/10 to improve overall QOL 2. Improve L ankle AROM to PF, inv/ev by at least 5 degrees ea plane to assist with function/gait 3. Improve L ankle PF, inv/ev strength to at least 4-/5 grossly to assist with function 4. Improve LEFS score to 51/80 to improve overall QOL/ function 5. Perform balance activity feet together eyes closed unstable surface x30 without LOB to improve balance/ proprioception and decrease fall risk. 6. Demonstrate proper gait mechanics with AFO with LRD to decrease fall risk. Outpatient Therapy Plan of Care Treatment Plan May Include Therapeutic Exercise Yes Including Home Exercise Program Manual Therapy Yes Techniques Neuromuscular Re- Yes education Therapeutic Yes Activities to Return to Previous Functional/Work Level Gait Training Yes ADL/Self Care Yes Education Dry Needling Yes Thermal Modalities Yes Electrical Yes Stimulation Ultrasound/ Yes Phonophoresis Iontophoresis Yes Orthotics/Bracing/ Yes Splinting Vasopneumatic Yes Compression Pump Massage Yes Eval/Re-Eval Yes Frequency Times per week 2 Duration Number of Weeks 4-6 Addendums This patient is a No candidate for social or vocational rehab ? Patient/Guardian Yes verbally acknowledges understanding of treatment program and consents to further treatment? Patient/Guardian Yes verbally acknowledges understanding of diagnosis, prognosis and goals for treatment? Eval Complexity PT Charges 78908 - Moderate Complexity Shoulder/Elbow Eval Shoulder Objective Measurements Elbow Objective Measurements PHYSICIAN CERTIFICATION: I certify the specified therapy services for Kassi Claudio are required, authorized, and reviewed every 30 days.
== END 2025-07-13 23:59 | disposition home or self-care (01) ==
LOC: PT 08:00
PROVIDERS: PCP Family Medicine; Visit Provider Physician Assistant
DX: S82.832D Other fracture of upper and lower end of left fibula, subsequent encounter for closed fracture with routine healing (principal); W19.XXXD Unspecified fall, subsequent encounter
CPT/HCPCS: 97014; 97016; 97110; 97162; 97530; G0283

== ENCOUNTER 2025-07-24 07:27 | Outpatient (CLI) | payer OTHER, SELFPAY ==
--- OUTSIDE RECORDS SUMMARY | 2025-07-24 07:30 | XMS_ITS | Encounter Summary ---
Author Organization [employer] ([place], [place], [place]) Address [address] [place] [address] Care Team Providers Care Sea Foam Kiss Maker Name Role Phone Unavailable Primary Care Provider Unavailabl e Encounter Details Date Type Department Care Team (Late st Contact Info) Description 06/22/2021 Transcribed Document [facility] [place] [place] Family Medicine [facility] [place] [address] ProviderRikki MD [address] [place] [phone] Social History Tobacco Use Types Packs/Day Years [...]
--- OUTSIDE RECORDS SUMMARY | 2025-07-24 07:30 | XMS_ITS | Encounter Summary ---
Author Organization [employer] ([place], [place], [place], [place]) Address [address] [place] [address] Care Team Providers Care Pediatric Oncology Nurse Name Role Phone Unavailable Primary Care Provider Unavailabl e Encounter Details Date Type Department Care Team (Late st Contact Info) Description 06/22/2021 Transcribed Document [facility] Family [place] [address] ProviderRikki MD [address] [place] [phone] Social History Tobacco Use Types Packs/Day Years [...]
--- OUTSIDE RECORDS SUMMARY | 2025-07-24 07:30 | XMS_ITS | Referral Summary ---
Author Organization [employer] ([place], [place], [place], [place]) Address [address] [place] [address] Care Team Providers Care Floriculture Teacher Name Role Phone Unavailable Primary Care [...]
--- OUTSIDE RECORDS SUMMARY | 2025-07-24 07:30 | XMS_ITS | Encounter Summary ---
Author Organization [facility] Address [address] [place] [address] Care Team Providers Care Real Estate Coordinator Name Role Phone Valentin Daniel MD Primary Care Provider [phone] Encounter Details Date Type Department Care Team (Late st Contact Info) Description 05/11/2025 Results Follow-Up [facility] Medicine Specialties [address] [place] [address] Angela Todd, WAFER PRODUCTION WORKER [address] [place] [address] Social History Tobacco Use Types [...] Info) Description 10/30/2025 8:00 AM EST Consult [facility] [address] [place] [address] Sim Tillman MD [address] [place] [address] 11/11/2025 12:50 PM EST Office Visit [facility] Medicine Specialties [address] [place] [address] Angela Todd APRN [address] [place] [address] documented as of this encounter [...] documented as of this encounter Care Teams Real Estate Coordinator Relationship Specialty Start Date End Date Valentin Daniel MD PCP - General 09/18/22 documented as of this encounter
--- OUTSIDE RECORDS SUMMARY | 2025-07-24 07:30 | XMS_ITS | Encounter Summary ---
Author Organization [employer] ([place], [place], [place], [place]) Address [address] [place] [address] Care Team Providers Care Cadet Deck Name Role Phone Unavailable Primary Care Provider Unavailabl e Encounter Details Date Type Department Care Team (Late st Contact Info) Description 06/22/2021 Transcribed Document [facility] [place] Family Medicine [facility] [place] [address] ProviderRikki MD [address] [place] [phone] Social History Tobacco Use Types Packs/Day Years [...] had a heart cath done by her relief cook in [place] in February, she did not have any [...] EDT Height Source Stated Height Entry Format Jacobson Height/Length, BURKINAN (ft) 5 ft Height/Length BURKINAN 3 Inch CLINICALHEIGHT 160.02 cm [place] Body Weight 52.02 kg Weight Source, ED Critical estimated dosing weight Weight Entry Format Jacobson Weight Irish lb 220 lb CLINICALWEIGHT 100 kg Body [...] Triage: ED C-SSRS: ED Clinical Reconciliation: ED metal bonder: EKG: Normal Saline Flush: 10 mL, IV [...] % 30.8 % Lymph # 3.02 x10(3)/uL Jerauld % 5.3 % Jerauld # 0.52 K/uL Eos % 2.4 % [...]
--- OUTSIDE RECORDS SUMMARY | 2025-07-24 07:30 | XMS_ITS | Clinical Summary ---
Author Organization [employer] ([place], [place], [place], [place]) Address [address] [place] [address] Care Team Providers Care Criminal Intelligence Specialist Name Role Phone Unavailable Primary Care [...]
--- OUTSIDE RECORDS SUMMARY | 2025-07-24 07:30 | XMS_ITS | Encounter Summary ---
Author Organization [employer] ([place], [place], [place], [place]) Address [address] [place] [address] Care Team Providers Care Continuous Mining Machine Coal Miner Name Role Phone Unavailable Primary Care Provider Unavailabl e Encounter Details Date Type Department Care Team (Late st Contact Info) Description 06/22/2021 Transcribed Document [facility] [place] [facility] [place] [address] ProviderRikki MD [address] [place] [address] [phone] Social History Tobacco Use Types Packs/Day Years [...]
--- OUTSIDE RECORDS SUMMARY | 2025-07-24 07:30 | XMS_ITS | Encounter Summary ---
Author Organization [employer] ([place], [place], [place], [place]) Address [address] [place] [address] Care Team Providers Care Histologic Technician Name Role Phone Unavailable Primary Care Provider Unavailabl e Encounter Details Date Type Department Care Team (Late st Contact Info) Description 06/22/2021 Transcribed Document [facility] [place] Family [place] [address] ProviderRikki MD [address] [place] [phone] Social History Tobacco Use Types Packs/Day [...] Montoya MD - 06/22/2021 2:03 AM CDT [facility] [place] [address] KASSI KONG :1970 Visit Time:06/21/2021 Your [...] 2 to 3 days Where: [place] [address]- [facility] (1) Allergies SUMAtriptan (Other Anaphylactic [...] range between ( 0.0 and 7.0 ) [place] #: 0.52 K/uL -- Normal range between ( 0.16 and 1.00 ) Eos #: 0.24 x10(3)/uL -- Normal range between ( 0.00 and 0.80 ) [place] %: 5.3 % -- Normal range between [...] these instructions at home: Medicines ??? Take cmea-sds-bkrkeit and prescription medicines only as told by [...] provider. Document Revised: 04/03/2019 Document Reviewed: 04/03/2019 [employer] Patient Education ?? 2020 [employer]. Emergency Awareness and Preventative Care STROKE is [...] Assistance with quitting is available by contacting 2-015-MMYC-NOW. This is a free resource providing counseling, [...] was given the opportunity to ask questions. Patient/Tire Adjuster Name: Patient/Tire Adjuster Signature: Relationship to Patient: Clinician/Hospital Tire Adjuster Signature: Please Provide a Telephone Number Where You Can Be Reached: Is it Permissible To Leave a Message? Date: documented in this encounter Plan of Treatment Not on file documented as of this encounter Visit Diagnoses Not on filedocumented in this encounter
--- OUTSIDE RECORDS SUMMARY | 2025-07-24 07:30 | XMS_ITS | Encounter Summary ---
Author Organization [employer] ([place], [place], [place], [place]) Address [address] [place] [address] Care Team Providers Care Recyclable Materials Distributor Name Role Phone Unavailable Primary Care Provider Unavailabl e Encounter Details Date Type Department Care Team (Late st Contact Info) Description 06/03/[address] [facility] [place] Family Medicine [facility] [place] [address] ProviderRikki MD [address] [place], [place] [phone] Social History Tobacco Use Types Packs/Day Years [...]
--- OUTSIDE RECORDS SUMMARY | 2025-07-24 07:31 | XMS_ITS | Encounter Summary ---
Author Organization [employer] ([place], [place], [place], [place]) Address [address] [place] [address] Care Team Providers Care Neurology Epilepsy Physician Name Role Phone Unavailable Primary Care Provider Unavailabl e Encounter Details Date Type Department Care Team (Late st Contact Info) Description 06/03/2019 Transcribed Document [facility] [place] [facility] [place] [address] ProviderRikki MD [address] [place] [address] Social History Tobacco Use Types Packs/Day [...] MD - 06/03/2019 2:51 PM CDT [facility] [place] [address] KASSI KONG :1970 Visit Time:06/03/2019 Your Visit Summary Your Care Team Admitting Physician - DRE POWER MARK, MD Attending Physician - MARIEL MCCRAY MD Primary Care Physician - ALVARADO STILES (REF), -[facility] Referring Physician - MARIEL MCCRAY MD Your [...] in the future. Where: [place] [address] [place] [address]- Allergies SUMAtriptan (Other Anaphylactic Shock, Other Anaphylactic [...] range between ( 0.0 and 7.0 ) [place] #: 0.44 K/uL -- Normal range between ( 0.16 and 1.00 ) Eos #: 0.28 x10(3)/uL -- Normal range between ( 0.00 and 0.80 ) [place] %: 5.2 % -- Normal range between [...] ) Urine Bilirubin Dipstick: Negative Urine Specific [place]: 1.021 -- Normal range between ( 1.005 [...] stand. This can reduce dizziness. ??? Take kamm-glm-rqxpnqd and prescription medicines only as told by [...] 10/01/2006 Document Revised: 03/08/2017 Document Reviewed: 06/14/2016 [employer] Interactive Patient Education ?? 2018 [employer] Head Injury, Adult There are many [...] Ask your health care provider for a epnr-hr-owhg plan for gradually returning to activities. ??? [...] your friends, family, a trusted colleague, and wallboard worker about your injury, symptoms, and restrictions. Have them watch for any new or worsening problems. General instructions ??? Take vhjz-zxb-cnbxipc and prescription medicines only as told by [...] 04/10/2017 Elsevier Interactive Patient Education ?? 2019 [employer] Contusion A contusion is a deep [...] This is often called the RICE strategy. Vwzo-cvl-onwrzyf anti-inflammatory medicines may also be recommended for [...] are sitting or lying down. ??? Take oxrs-vcs-rbgiajh and prescription medicines only as told by [...] 07/11/2006 Document Revised: 02/08/2017 Document Reviewed: 02/16/2016 [employer] Interactive Patient Education ?? 2019 [employer] Concussion, Adult A concussion is a [...] are taking any medicines, including prescription medicines, fqfo-xhs-rdmbsgo medicines, and natural remedies. Some medicines, such [...] returning to activities. General instructions ??? Take yqky-nrl-bywgpes and prescription medicines only as told by [...] Tell your teachers, school nurse, school counselor, coach wirer, call center trainer, or wallboard worker about your injury, symptoms, and restrictions. [...] 12/21/2004 Document Revised: 09/11/2017 Document Reviewed: 09/11/2017 [employer] Interactive Patient Education ?? 2019 [employer] Emergency Awareness and Preventative Care STROKE [...] Assistance with quitting is available by contacting 4-236-JPDN-NOW. This is a free resource providing counseling, [...] was given the opportunity to ask questions. Patient/Group Leader Semiconductor Processing Name: Patient/Group Leader Semiconductor Processing Signature: Relationship to Patient: Clinician/Hospital Group Leader Semiconductor Processing Signature: Please Provide a Telephone Number Where You Can Be Reached: Is it Permissible To Leave a Message? Date: documented in this encounter Plan of Treatment Not on file documented as of this encounter Visit Diagnoses Not on filedocumented in this encounter
--- OUTSIDE RECORDS SUMMARY | 2025-07-24 07:31 | XMS_ITS | Encounter Summary ---
Author Organization [employer] ([place], [place], [place], [place]) Address [address] [place] [address] Care Team Providers Care Operating System Designer Name Role Phone Unavailable Primary Care Provider Unavailabl e Encounter Details Date Type Department Care Team (Late st Contact Info) Description 06/03/2019 Transcribed Document [facility] [place] [facility] [place] [address] ProviderRikki MD [address] [place] [address] Social History Tobacco Use Types Packs/Day [...] MD - 06/03/2019 2:51 PM CDT [facility] [place] [address] KASSI KONG :1970 Visit Time:06/03/2019 Your Visit Summary Your Care Team Admitting Physician - DRE POWER MARK, MD Attending Physician - MARIEL MCCRAY MD Primary Care Physician - ALVARADO STILES (REF), -[facility] Referring Physician - MARIEL MCCRAY MD Your [...] in the future. Where: [place] [address] [place] [address]- Allergies SUMAtriptan (Other Anaphylactic Shock, Other Anaphylactic [...] range between ( 0.0 and 7.0 ) [place] #: 0.44 K/uL -- Normal range between ( 0.16 and 1.00 ) Eos #: 0.28 x10(3)/uL -- Normal range between ( 0.00 and 0.80 ) [place] %: 5.2 % -- Normal range between [...] ) Urine Bilirubin Dipstick: Negative Urine Specific [place]: 1.021 -- Normal range between ( 1.005 [...] stand. This can reduce dizziness. ??? Take sizw-zve-hdijbsw and prescription medicines only as told by [...] 10/01/2006 Document Revised: 03/08/2017 Document Reviewed: 06/14/2016 [employer] Interactive Patient Education ?? 2018 [employer] Head Injury, Adult There are many [...] Ask your health care provider for a bias-fv-fldv plan for gradually returning to activities. ??? [...] your friends, family, a trusted colleague, and organic lab worker about your injury, symptoms, and restrictions. Have them watch for any new or worsening problems. General instructions ??? Take cubc-lzv-audltrh and prescription medicines only as told by [...] 04/10/2017 Elsevier Interactive Patient Education ?? 2019 [employer] Inc. Contusion A contusion is a deep [...] This is often called the RICE strategy. Ykeg-dcz-iwmcvif anti-inflammatory medicines may also be recommended for [...] are sitting or lying down. ??? Take pnnw-fqu-oewoibg and prescription medicines only as told by [...] 07/11/2006 Document Revised: 02/08/2017 Document Reviewed: 02/16/2016 [employer] Interactive Patient Education ?? 2019 [employer] Concussion, Adult A concussion is a [...] are taking any medicines, including prescription medicines, ukrg-wen-fpypkxt medicines, and natural remedies. Some medicines, such [...] returning to activities. General instructions ??? Take ubeg-vkv-vbkkxjp and prescription medicines only as told by [...] Tell your teachers, school nurse, school counselor, job coaching, driver trainer, or organic lab worker about your injury, symptoms, and restrictions. [...] 12/21/2004 Document Revised: 09/11/2017 Document Reviewed: 09/11/2017 [employer] Interactive Patient Education ?? 2019 [employer] Emergency Awareness and Preventative Care STROKE [...] Assistance with quitting is available by contacting 4-932-RRSC-NOW. This is a free resource providing counseling, [...] given the opportunity to ask questions. Patient/Public Aid Eligibility Assistant Name: Patient/Public Aid Eligibility Assistant Signature: Relationship to Patient: Clinician/Hospital Public Aid Eligibility Assistant Signature: Please Provide a Telephone Number Where You Can Be Reached: Is it Permissible To Leave a Message? Date: Electronically signed by Doe, Giacomo Conversion Secondary Social Studies Teacher Cerner at 01/28/2023 11:06 PM CDT documented in this encounter Plan of Treatment Not on file documented as of this encounter Visit Diagnoses Not on filedocumented in this encounter
--- OUTSIDE RECORDS SUMMARY | 2025-07-24 07:31 | XMS_ITS | Clinical Summary ---
Author Organization [facility] Address [address] [place] [address] Care Team Providers Care Pari Mutuel Clerk Name Role Phone Provider, No Known Primary [...] 01/16/2022, 07/27/2021 Insurance COMMERCIAL [employer] Care Teams Pari Mutuel Clerk Relationship Specialty Start Date End Date Provider, [place] [address] PCP - General 08/09/23
--- OUTSIDE RECORDS SUMMARY | 2025-07-24 07:31 | XMS_ITS | Encounter Summary ---
Author Organization [employer] ([place], [place], [place], [place]) Address [address] [place] [address] Care Team Providers Care Superintendent Service Name Role Phone Unavailable Primary Care Provider Unavailabl e Encounter Details Date Type Department Care Team (Late st Contact Info) Description 06/03/2019 Transcribed Document [facility] [place] [facility] [place] [address] ProviderRikki MD [address] [place] [id number] Social History Tobacco Use Types Packs/Day Years [...]
--- OUTSIDE RECORDS SUMMARY | 2025-07-24 07:31 | XMS_ITS | Encounter Summary ---
Author Organization [employer] ([place], [place], [place], [place]) Address [address] [place] [address] Care Team Providers Care Engineering Aid Name Role Phone Unavailable Primary Care Provider Unavailabl e Encounter Details Date Type Department Care Team (Late st Contact Info) Description 06/21/2021 Transcribed Document [facility] [place] [facility] [place] [address] ProviderRikki MD [address] [place] [phone] Social History Tobacco Use Types Packs/Day Years [...] Communication Barrier : None Primary Language : Amharic Any Spiritual/Cultural Needs or Requests : No [...]
--- OUTSIDE RECORDS SUMMARY | 2025-07-24 07:31 | XMS_ITS | Encounter Summary ---
Author Organization [employer] ([place], [place], [place], [place]) Address [address] [place] [address] Care Team Providers Care Blast Hole Driller Name Role Phone Unavailable Primary Care Provider Unavailabl e Encounter Details Date Type Department Care Team (Late st Contact Info) Description 06/11/2019 Transcribed Document [facility] [place] [address] [place] [address] ProviderRikki MD [address] [place], [place] [address] Social History Tobacco Use Types Packs/Day Years [...]
--- OUTSIDE RECORDS SUMMARY | 2025-07-24 07:31 | XMS_ITS | Encounter Summary ---
Author Organization [employer] ([place], [place], [place], [place]) Address [address] [place] [address] Care Team Providers Care Manufacturers Agent Name Role Phone Unavailable Primary Care Provider Unavailabl e Encounter Details Date Type Department Care Team (Late st Contact Info) Description 06/21/2021 Transcribed Document [facility] [place] [address] [place] [address] ProviderRikki MD [address] [place], [place] [id number] Social History Tobacco Use Types Packs/Day Years [...] EDT Electronically signed by Giacomo Azar Conversion Inspector [employer] Rajwinder at 01/28/2023 11:14 PM CDT documented in this encounter Plan of Treatment Not on file documented as of this encounter Visit Diagnoses Not on filedocumented in this encounter
--- OUTSIDE RECORDS SUMMARY | 2025-07-24 07:31 | XMS_ITS | Encounter Summary ---
Author Organization [facility] Address [address] [place] [address] Care Team Providers Care Broiler Chef Or Cook Name Role Phone Valentin Daniel MD Primary Care Provider [phone] Reason for Referral * Consultation (Routine) - Authorized Specialty Diagnoses / Procedures Referred By Contac t Referred To Contact Neurology Diagnoses Left foot drop Mechanical problems with limbs Polyneuropathy Valentin Daniel MD [address] [place] [address] Phone: tel: fax: Referral ID Status Reason Start Date Expiration Date Visits Requested Visits Authorized [id number] Authorized Specialty Services Required 02/16/2025 08/18/2026 1 1 Encounter Details Date Type Department Care Team (Late st Contact Info) Description 02/16/2025 Community [facility] Community Practice [address] [place] [address] Valentin Daniel MD [address] [place] [address] Left foot drop (Primary Dx); Mechanical [...] Info) Description 10/30/2025 8:00 AM EST Consult [facility] [address] [place] [address] Sim Tillman MD [address] [place] [address] 11/11/2025 12:50 PM EST Office Visit [facility] Medicine Specialties [address] [place] [address] Angela Todd APRN [address] [place] [address] Scheduled Referrals Name Type Priority [...] documented as of this encounter Care Teams Broiler Chef Or Cook Relationship Specialty Start Date End Date Valentin Daniel MD PCP - General 09/18/22 documented as of this encounter
--- OUTSIDE RECORDS SUMMARY | 2025-07-24 07:31 | XMS_ITS | Encounter Summary ---
Author Organization [employer] ([place], [place], [place], [place]) Address [address] [place] [address] Care Team Providers Care Fiberglass Boat Maker Name Role Phone Unavailable Primary Care Provider Unavailabl e Encounter Details Date Type Department Care Team (Late st Contact Info) Description 06/21/[address] [facility] [place] [facility] [address] ProviderRikki MD [address] [place] [phone] Social History Tobacco Use Types Packs/Day Years [...] : 2 - Emergent [facility] : [facility] ED Jasmina Rao RN - 06/21/2021 [...] PNED ; Probability: 0 ; Diagnosis Code: [id number] ED Height and Weight Height Source : Stated Height Entry Format : [place] Height, Feet : 5 ft(Converted to: 152 cm, 60 Inch) Height, Inches : 3 Inch(Converted to: 0 ft 3 Inch, 7.62 cm) Clinical Height : 160.02 cm Weight Source, ED : Critical estimated dosing weight Weight Entry Format : [place] Weight, Pounds : 220 lb Clinical Dosing Weight : 100 kg Body Surface Area (BSA) : 2.02 m2 Body Mass Index : 39.1 kg/m2 (HI) [place] Body Weight (IBW) : 52.02 kg Jasmina Rao RN - 06/21/2021 22:09 EDT documented in this encounter Plan of Treatment Not on file documented as of this encounter Visit Diagnoses Not on filedocumented in this encounter
--- OUTSIDE RECORDS SUMMARY | 2025-07-24 07:31 | XMS_ITS | Data Portability ---
Author Organization [employer] [facility] [facility] [facility] Address [address] [facility] [place] [address] Care Team Providers Care Sales Representative Door To Door Name Role Phone SANGEETA BENOIT Primary Care Provider [phone] Assessment Encounter Date Assessment Date Assessment LastModified [...] 6 weeks once imaging has been completed. [email or web address] Not available 05/21/2024 11:00:40 07/02/2024 07/02/2024 Kassi [...] the patient to obtain a disc from [facility] and bring the disc to us. Once we have the disc, I will have Dr. Walker review the imaging and contact the patient. I have scheduled her for a follow-up appointment in 6 weeks as well. [email or web address] Not available 07/02/2024 11:48:35 10/17/2024 10/17/2024 Kassi [...] headaches, consider further evaluation by headache specialist. [email or web address] Not available 10/17/2024 12:21:54 Plan of Treatment Reminders Order Date Submit Date Provider Last Modified By Organization Details Last Modified Time Details Appointments None recorded. Lab None recorded. Referral None recorded. Procedures None recorded. Surgeries None recorded. Imaging None recorded. Medication Orders cyclobenzap rine 10 mg tablet 2023 024 [facility], [address] [place] [address], [id number], 11:01:23 Patient TargetsNo targets recorded. Patient InstructionsNo instructions recorded. Reason for Referral None Reported. Results Created Date Observation Date Name Description Value Unit Range Abnormal Flag Note LastModifiedBy Organization Detail LastModifiedTime 06/12/2006/11/2024 MRI, lumba r spine , w/wo contr ast No observ ation record ed. [email or web address] Not Available 2023 11:20:48 08/22/2008/19/2024 MRI, cervi claribel spine , w/wo contr ast No observ ation record ed. [email or web address] Not Available 2024 16:06:42 Result Notes None recorded. Procedures Surgical History Date Name Laterality Status Provider Name and Address Organization Details Recorded Time [facility] 05/21/2024 10:17:19 section completed [facility] 05/21/2024 10:17:33 Appendectomy completed [facility] 05/21/2024 10:17:40 Cholecystectomy completed [facility] 05/21/2024 10:17:48 hysterectomy completed [facility] 05/21/2024 10:17:58 Gastric bypass for obesity completed [facility] 05/21/2024 10:18:08 Imaging Results None recorded. [...] Updated DateTime 10/17/2024 160.02 cm 33.7 kg/m2 42850.55 g 122/82 mm[Hg] [facility] 10/17/2024 09:17:07 Date Recorded Body height Body mass index (BMI) Body weight Systolic And Diastolic Provider Name and Address Organization Details Last Updated DateTime 05/21/2024 160.02 cm 33.7 kg/m2 72399.55 g 130/82 mm[Hg] [facility] 05/21/2024 10:25:23 Date Recorded Body height Body mass index (BMI) Body weight Systolic And Diastolic Provider Name and Address Organization Details Last Updated DateTime 07/02/2024 160.02 cm 33.7 kg/m2 15246.55 g 126/82 mm[Hg] [facility] 07/02/2024 11:21:39 Social History None recorded. Functional [...] Diagnosis SNOMED-CT Code Diagnosis ICD10 Code Diagnosis IMO Codes Diagnosis Note [id number] SKIP KAUFMAN PA-C [facility] [address] [place] [address] 05/21/2024 09:59:46 05/23/2024 14:19:21 Lumbar radiculopathy [id number] M54.16 [id number] SKIP KAUFMAN PA-C [facility] [address] [place] [address] 07/02/2024 10:12:30 07/07/2024 10:32:51 Lumbar radiculopathy [id number] M54.16 Low back pain [id number] M54.50 [id number] VÍCTOR WALKER MD [facility] [address] [place] [address] 10/17/2024 09:09:50 10/18/2024 05:47:25 Headache 34204825 R51.9 Health Concerns Section Related Observation LastModified by Organization Detai ls LastModified Time None Recorded Concern Status LastModified by Organization Details LastModified Time None Recorded Advance Directives Directive None Recorded Payers Insurance Date Sequence Insurance Name Policy Number Policy Junior Covered Member ID Junior Member ID Guarantor Name 10/15/2024 1 [employer] (EPO) [id number] Kassi Claudio [id number] Kassi Claudio Notes Date Note Type [...] being on warfarin. SKIP KAUFMAN PA-C [address] [place], [address], [facility] 05/21/2024 11:01:32 4 text/html ROS as noted in the HPI Kassi Claudio is a 54-year-old female presenting [...] resolved. She had [facility] completed at [facility]2024 but did not obtain a disc with the MRI images to bring to her appointment today. SKIP KAUFMAN PA-C [facility] [place], [address], [facility] 07/02/2024 11:49:01 5 text/html ROS as noted in the HPI Kassi Claudio is a 54-year-old woman with [...] massager seems to help. VÍCTOR WALKER MD [facility] [place], [address], [facility] 10/17/2024 12:23:13 OBGyn Episode No OBEpisode recorded.
--- OUTSIDE RECORDS SUMMARY | 2025-07-24 07:31 | XMS_ITS | Encounter Summary ---
Author Organization [employer] ([place], [place], [place], [place]) Address [address] [place] [address] Care Team Providers Care Retail Marketing Coordinator Name Role Phone Unavailable Primary Care Provider Unavailabl e Encounter Details Date Type Department Care Team (Late st Contact Info) Description 06/03/2019 Transcribed Document [facility] [place] Medicine [address] [place] [address] ProviderRikki MD [address] [place] [phone] Social History Tobacco Use Types Packs/Day Years [...] Communication Barrier : None Primary Language : Malay Any Spiritual/Cultural Needs or Requests : No [...] - 06/03/2019 11:10 EDT Electronically signed by [facility] Conversion Heavy Equipment Engine Mechanic Cerner at 01/28/2023 10:51 PM CDT documented in this encounter Plan of Treatment Not on file documented as of this encounter Visit Diagnoses Not on filedocumented in this encounter
--- OUTSIDE RECORDS SUMMARY | 2025-07-24 07:31 | XMS_ITS | Encounter Summary ---
Author Organization [employer] ([place], [place], [place], [place]) Address [address] [place] [address] Care Team Providers Care Hangar Attendant Name Role Phone Unavailable Primary Care Provider Unavailabl e Encounter Details Date Type Department Care Team (Late st Contact Info) Description 06/21/2021 Transcribed Document [facility] [place] Family Medicine [address] [place] [address] ProviderRikki MD [address] [place], [place] [address] Social History Tobacco Use Types Packs/Day Years [...] Historical ProviderMD - 06/21/2021 9:55 PM CDT [place] Suicide Severity Rating Scale (C-SSRS) Entered On: 06/21/2021 22:29 EDT Performed On: 06/21/2021 22:27 EDT by Aruna Garcia [place] Suicide Severity Rating Scale (C-SSRS) CSSRS Past [...]
--- OUTSIDE RECORDS SUMMARY | 2025-07-24 07:31 | XMS_ITS | Encounter Summary ---
Author Organization [facility] Address [address] [place] [address] Care Team Providers Care Vault Person Name Role Phone Valentin Daniel MD Primary Care Provider [phone] Encounter Details Date Type Department Care Team (Latest Contact Info) Description 02/05/2025 Community [facility] Community Practice [address] [place] [address] Valentin Daniel MD [address] [place] [address] Polyneuropathy (Primary Dx); Foot drop, left foot [...] Consult [place] [facility] [address] 1st [place] [address] Sim Tillman MD [address] [place] [address] 11/11/2025 12:50 PM EST Office Visit [place] [facility] Specialties [address] [place] [address] Angela Todd, FURNITURE MANAGER [address] [facility] [address] [place] [address] documented as of this encounter [...] documented as of this encounter Care Teams Vault Person Relationship Specialty Start Date End Date Valentin Daniel MD PCP - General 09/18/22 documented as of this encounter
--- OUTSIDE RECORDS SUMMARY | 2025-07-24 07:31 | XMS_ITS | Encounter Summary ---
Author Organization [employer] ([place], [place], [place], [place]) Address [address] [place] [address] Care Team Providers Care Delivery Person Name Role Phone Unavailable Primary Care Provider Unavailabl e Encounter Details Date Type Department Care Team (Late st Contact Info) Description 06/03/2019 Transcribed Document [facility] [place] [facility] [place] [address] ProviderRikki MD [address] [place] [id number] Social History Tobacco Use Types Packs/Day Years [...]
--- OUTSIDE RECORDS SUMMARY | 2025-07-24 07:31 | XMS_ITS | Clinical Summary ---
Author Organization [facility] Address [address] [place] [address] Care Team Providers Care Gas Refrigerator Servicer Name Role Phone Valentin Daniel MD Primary [...] cream 01/21/20 21 Active ergocalciferol 1.25 MG (82931 UT) capsule TAKE ONE CAPSULE BY MOUTH EVERY WEEK DIRECTED 03/01/20 21 Active HYDROcodone-acetam inophen (Brant) 10-325 MG tablet TAKE ONE TABLET BY [...] MG tablet 01/28/20 24 Active nystatin (Mycostatin) 622620 UNIT/GM powder 02/01/20 24 Active omeprazole (PriLOSEC) [...] Type Department Care Team Description 05/13/2025 Refill [facility] Medicine Specialties [address] [place] [address] Angela Todd, FLAKING ROLL OPERATOR 05/11/2025 Results Follow-Up [facility] Medicine Specialties [address] [place] [address] Angela Todd, FLAKING ROLL OPERATOR 05/06/2025 1:20 PM EDT Office Visit [facility] Medicine Specialties [address] [place] [address] Angela Todd, FLAKING ROLL OPERATOR Positive RENETTA (antinuclear antibody) (Primary Dx); High [...] Info) Description 10/30/2025 8:00 AM EST Consult [facility] [address], [address] [place] [address] Sim Tillman MD [address] [place] [address] 11/11/2025 12:50 PM EST Office Visit [facility] Medicine Specialties [address] [place] [address] Angela Todd APRN [address] [place] [address] Health Maintenance Due Date Last [...] (2 - Td or Tdap) 06/20/2021 06/20/2011 [id number] Vaccine ( season) 2025 07/14/2021, 11/17/2020, 10/28/2020 [...] APRN LAB URINE ORDERABLES Veronica syed Result [facility] [address] [place] [address] * Protein, Random, Urine with Creatinine (05/06/2025 2:30 PM EDT) Protein, Urine 20 mg/dL 05/06/2025 4:34 PM EDT [facility] Creatinine, Urine 141 mg/dL 05/06/2025 4:34 PM EDT [facility] Protein/Creatin ine Ratio 0.1 mg/mg Creat 05/06/2025 4:34 PM EDT [facility] Urine Urine specimen obtained by clean catch procedure / Unknown Non-blood Collection / Unknown 05/06/2025 2:30 PM EDT 05/06/2025 2:30 PM EDT us Angela Todd APRN LAB URINE ORDERABLES Veronica kunal Result [facility] [address] [place] [address] * (ABNORMAL) Urinalysis with reflex microscopic (Culture NOT Included) (05/06/2025 2:30 PM EDT) Color, Urine Dark Yellow LAB URINALYSIS - AUTOMATED METHOD 05/06/2025 4:28 PM EDT [facility] Clarity, Urine Cloudy LAB URINALYSIS - AUTOMATED METHOD 05/06/2025 4:28 PM EDT [facility] Spec [place], Urine 1.026 1.005 - 1.030 LAB URINALYSIS - AUTOMATED METHOD 05/06/2025 4:28 PM EDT [facility] pH, Urine 5.5 5.0 - 8.0 LAB URINALYSIS - AUTOMATED METHOD 05/06/2025 4:28 PM EDT [facility] Protein, Urine 30(A) Negative mg/dL LAB URINALYSIS - AUTOMATED METHOD 05/06/2025 4:28 PM EDT [facility] Glucose, Urine >=1000(A) Negative mg/dL LAB URINALYSIS - AUTOMATED METHOD 05/06/2025 4:28 PM EDT [facility] Ketones, Urine Trace(A) Negative mg/dL LAB URINALYSIS - AUTOMATED METHOD 05/06/2025 4:28 PM EDT [facility] Blood, Urine Large(A) Negative LAB URINALYSIS - AUTOMATED METHOD 05/06/2025 4:28 PM EDT [facility] Bilirubin, Urine Small(A) Negative LAB URINALYSIS - AUTOMATED METHOD 05/06/2025 4:28 PM EDT [facility] Urobilinogen, Urine 0.2 0.2 to 1.0 mg/dL LAB URINALYSIS - AUTOMATED METHOD 05/06/2025 4:28 PM EDT [facility] Leukocytes, Urine Negative Negative LAB URINALYSIS - AUTOMATED METHOD 05/06/2025 4:28 PM EDT [facility] Nitrite, Urine Negative Negative LAB URINALYSIS - AUTOMATED METHOD 05/06/2025 4:28 PM EDT [facility] RBC, Urine >50(A) 0 to 3 /HPF LAB URINALYSIS - AUTOMATED METHOD 05/06/2025 4:28 PM EDT [facility] WBC, Urine 6 - 10(A) 0 to 5 /HPF LAB URINALYSIS - AUTOMATED METHOD 05/06/2025 4:28 PM EDT [facility] Squamous Epithelial Cells 0 - 2 0 to 5 /HPF LAB URINALYSIS - AUTOMATED METHOD 05/06/2025 4:28 PM EDT [facility] Hyaline Casts 0 - 2 0 to 5 /LPF LAB URINALYSIS - AUTOMATED METHOD 05/06/2025 4:28 PM EDT [facility] Bacteria, Urine Negative Negative LAB URINALYSIS - AUTOMATED METHOD 05/06/2025 4:28 PM EDT [facility] Renal Tubular Cells Present Absent 05/06/2025 4:28 PM EDT [facility] Transitional Epithelial Cells Present Absent 05/06/2025 4:28 PM EDT [facility] Calcium Oxalate Crystals Present Absent 05/06/2025 4:28 PM EDT [facility] Urine Urine specimen obtained by clean catch procedure / Unknown Non-blood Collection / Unknown 05/06/2025 2:30 PM EDT 05/06/2025 2:30 PM EDT Narrative [facility] - 05/06/2025 4:28 PM EDT Performed by manual method us Angela Todd APRN LAB URINE ORDERABLES Veronica syed Result [facility] [address] [place] [address] * Double-Stranded DNA (dsDNA) Antibody, IgG by IFA (05/06/2025 2:08 PM EDT) Double-Strande d DNA (dsDNA) Ab IgG IFA <1:10 <1:10 05/08/2025 11:43 PM EDT [facility] ([facility]) Blood Venous blood specimen / Unknown Venipuncture / Unknown 05/06/2025 2:08 PM EDT 05/06/2025 2:09 PM EDT Narrative [facility] ([facility]) - 05/08/2025 11:43 PM EDT INTERPRETIVE [...] recommendations for testing may be found at [email or web address]. Performed By: [employer] [address] [place] [address] Manager Er: Abundio Urias MD, PhD CLIA Number: [id number] Angela Todd APRN LAB BLOOD ORDERABLES Veronica syed Result [facility] [address] [place] [id number] * Creatinine, Plasma (05/06/2025 2:08 PM EDT) Creatinine, Plasma 0.62 0.60 - 1.10 mg/dL 05/06/2025 3:35 PM EDT [facility] eGFRcr 106.0 mL/min/1.7 3m*2 05/06/2025 3:35 PM EDT [facility] Comment:Reported eGFRcr in m L/min/1.73m2 is based the CKD-EPI 2020 equation that does not use a race coefficient. Blood Venous blood specimen / Unknown Venipuncture / Unknown 05/06/2025 2:08 PM EDT 05/06/2025 2:09 PM EDT us Angela Todd APRN LAB BLOOD ORDERABLES Veronica syed Result [facility] [address] [place] [address] * (ABNORMAL) Sedimentation Rate, Automated (05/06/2025 2:08 PM EDT) Pathologist [facility] Sedimentation Rate 38(H) <30 mm/hr 2024 4:06 PM EDT [facility] Blood Venous blood specimen / Unknown Venipuncture / Unknown 05/06/2025 2:08 PM EDT 05/06/2025 2:09 PM EDT Angela Todd APRN LAB BLOOD ORDERABLES Veronica syed Result Performing Organization Address City/[facility]/ZIP Co de Phone Number [facility] [address] [place] [address] * (ABNORMAL) CBC and Differential (05/06/2025 2:08 PM EDT) WBC Count 9.44 3.70 - 10.30 10*3/uL LAB HEMATOLOGY METHOD 05/06/2025 3:39 PM EDT [facility] RBC Count 5.15 3.90 - 5.20 10*6/uL LAB HEMATOLOGY METHOD 05/06/2025 3:39 PM EDT [facility] HGB 14.4 11.2 - 15.7 g/dL LAB HEMATOLOGY METHOD 05/06/2025 3:39 PM EDT [facility] HCT 44.7 34.0 - 45.0 % LAB HEMATOLOGY METHOD 05/06/2025 3:39 PM EDT [facility] Platelet Count 337 155 - 369 10*3/uL LAB HEMATOLOGY METHOD 05/06/2025 3:39 PM EDT [facility] MCV 87 79 - 98 fL LAB HEMATOLOGY METHOD 05/06/2025 3:39 PM EDT [facility] MCH 28.0 26.0 - 32.0 pg LAB HEMATOLOGY METHOD 05/06/2025 3:39 PM EDT [facility] MCHC 32.2 30.7 - 35.5 g/dL LAB HEMATOLOGY METHOD 05/06/2025 3:39 PM EDT [facility] RDW 13.9 11.5 - 14.5 % LAB HEMATOLOGY METHOD 05/06/2025 3:39 PM EDT [facility] MPV 11.9 8.8 - 12.5 fL LAB HEMATOLOGY METHOD 05/06/2025 3:39 PM EDT [facility] nRBC 0.0 <=0.0 per 100 WBCs LAB HEMATOLOGY METHOD 05/06/2025 3:39 PM EDT [facility] Differential Type Automated LAB HEMATOLOGY METHOD 05/06/2025 3:39 PM EDT [facility] Neutrophils % 56 % LAB HEMATOLOGY METHOD 05/06/2025 3:39 PM EDT [facility] Lymphocytes % 32 % LAB HEMATOLOGY METHOD 05/06/2025 3:39 PM EDT [facility] Monocytes % 6 % LAB HEMATOLOGY METHOD 05/06/2025 3:39 PM EDT [facility] Eosinophils % 5 % LAB HEMATOLOGY METHOD 05/06/2025 3:39 PM EDT [facility] Basophils % 1 % LAB HEMATOLOGY METHOD 05/06/2025 3:39 PM EDT [facility] Immature Granulocytes % 0 % LAB HEMATOLOGY METHOD 05/06/2025 3:39 PM EDT [facility] Neutrophils Absolute 5.32 1.60 - 6.10 10*3/uL LAB HEMATOLOGY METHOD 05/06/2025 3:39 PM EDT [facility] Lymphocytes Absolute 3.00 1.20 - 3.90 10*3/uL LAB HEMATOLOGY METHOD 05/06/2025 3:39 PM EDT [facility] Monocytes Absolute 0.56 0.30 - 0.90 10*3/uL LAB HEMATOLOGY METHOD 05/06/2025 3:39 PM EDT [facility] Eosinophils Absolute 0.43 0.00 - 0.50 10*3/uL LAB HEMATOLOGY METHOD 05/06/2025 3:39 PM EDT [facility] Basophils Absolute 0.11(H) 0.00 - 0.10 10*3/uL LAB HEMATOLOGY METHOD 05/06/2025 3:39 PM EDT [facility] Immature Granulocytes Absolute 0.02 0.00 - 0.06 10*3/uL LAB HEMATOLOGY METHOD 05/06/2025 3:39 PM EDT [facility] Blood Venous blood specimen / Unknown Venipuncture / Unknown 05/06/2025 2:08 PM EDT 05/06/2025 2:09 PM EDT Narrative [facility] - 05/06/2025 3:39 PM EDT Therapeutic decision making should be based on absolute values, rather than percentages. us Angela Todd APRN LAB BLOOD ORDERABLES Veronica l Result [facility] [address] [place] [address] * C3 Complement (05/06/2025 2:08 PM EDT) C3 Complement 149 84 - 166 mg/dL 05/06/2025 3:30 PM EDT [facility] Blood Venous blood specimen / Unknown Venipuncture / Unknown 05/06/2025 2:08 PM EDT 05/06/2025 2:09 PM EDT us Angela Todd APRN LAB BLOOD ORDERABLES Veroncia l Result Performing Organization Address City/[facility] [place] [address] * C4 Complement (05/06/2025 2:08 PM EDT) C4 Complement 25 13 - 36 mg/dL 05/06/2025 3:30 PM EDT [facility] Blood Venous blood specimen / Unknown Venipuncture / Unknown 05/06/2025 2:08 PM EDT 05/06/2025 2:09 PM EDT Angela Todd FLAKING ROLL OPERATOR LAB BLOOD [place] [address] * C-Reactive Protein, Plasma (05/06/2025 2:08 PM EDT) CRP, Plasma <3.0 <=8.0 mg/L 05/06/2025 3:35 PM EDT [facility] Blood Venous blood specimen / Unknown Venipuncture / Unknown 05/06/2025 2:08 PM EDT 05/06/2025 2:09 PM EDT Narrative [facility] - 05/06/2025 3:35 PM EDT This CRP test is appropriate for assessment of infection, systemic inflammation and/or tissue injury. To assess cardiovascular disease risk order high sensitivity CRP (CRPH). us Angela Todd APRN LAB BLOOD ORDERABLES Veronica l Result [facility] [address] [place] [address] * (ABNORMAL) Hepatic Function Panel (05/06/2025 2:08 PM EDT) Direct Bilirubin, Plasma <0.2 <=0.3 mg/dL 05/06/2025 3:35 PM EDT [facility] Alkaline Phosphatase, Plasma 107(H) 35 - 104 U/L 05/06/2025 3:35 PM EDT [facility] Total Bilirubin, Plasma 0.2 0.2 - 1.1 mg/dL 05/06/2025 3:35 PM EDT [facility] Albumin, Plasma 3.9 3.5 - 5.2 g/dL 05/06/2025 3:35 PM EDT [facility] Total Protein 7.2 6.3 - 7.9 g/dL 05/06/2025 3:35 PM EDT [facility] ALT, Plasma 43(H) 10 - 35 U/L 05/06/2025 3:35 PM EDT [facility] AST, Plasma 35 10 - 35 U/L 05/06/2025 3:35 PM EDT [facility] Blood Venous blood specimen / Unknown Venipuncture / Unknown 05/06/2025 2:08 PM EDT 05/06/2025 2:09 PM EDT Angela Todd FLAKING ROLL OPERATOR LAB BLOOD ORDERABLES Veronica l Result [facility] [address] [place] [address] from Last 3 Months Additional Health Concerns Infection Onset Date 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
--- OUTSIDE RECORDS SUMMARY | 2025-07-24 07:31 | XMS_ITS | Encounter Summary ---
Author Organization [employer] ([place], [place], [place], [place]) Address [address] [place] [address] Care Team Providers Care Supervisor Stripping Name Role Phone Unavailable Primary Care Provider Unavailabl e Encounter Details Date Type Department Care Team (Late st Contact Info) Description 06/03/2019 Transcribed Document [facility] Family Medicine [address] [place] [address] ProviderRikki MD [address], [place] [id number] Social History Tobacco Use Types Packs/Day Years [...] EDT DCP GENERIC CODE Tracking Group : [facility] ED MARC GREENWOOD RN - [...] Recent Thoughts of Harming/Killing Others : No Casino Worker Needed : No MARC GREENWOOD RN - [...] PNED ; Probability: 0 ; Diagnosis Code: [id number] ED Height and Weight Height Source : Stated Height Entry Format : [place] Height, Feet : 5 ft(Converted to: 152 cm, 60 Inch) Height, Inches : 3 Inch(Converted to: 0 ft 3 Inch, 7.62 cm) Clinical Height : 160.02 cm Weight Source, ED : Critical estimated dosing weight Weight Entry Format : [place] Weight, Pounds : 220 lb Clinical Dosing Weight : 100 kg Body Surface Area (BSA) : 2.02 m2 Body Mass Index : 39.1 kg/m2 (HI) [place] Body Weight (IBW) : 52.02 kg MARC [...]
--- OUTSIDE RECORDS SUMMARY | 2025-07-24 07:31 | XMS_ITS | Encounter Summary ---
Author Organization [employer] ([place]) Address [address] [place] [address] Care Team Providers Care Staple Fiber Washer Name Role Phone Unavailable Primary Care Provider Unavailabl e Encounter Details Date Type Department Care Team (Late st Contact Info) Description 06/03/2019 Transcribed Document [facility] Family Medicine [facility] [place] [address] ProviderRikki MD [address] [place] [phone] Social History Tobacco Use Types Packs/Day Years [...] EDT Height Source Stated Height Entry Format [place] Height/Length, [place] (ft) 5 ft Height/Length [place] 3 Inch CLINICALHEIGHT 160.02 cm [place] Body Weight 52.02 kg Weight Source, ED Critical estimated dosing weight Weight Entry Format [place] Weight [place]e lb 220 lb CLINICALWEIGHT 100 kg Body [...] Hand pain, wrist pain, fracture, sprain, contusion, [place], head injury, concussion,. Orders Include Previous Orders (Selected) Inpatient Orders Ordered EKG: Completed .Automated Differential: .Urinalysis Microscopic: CBC w/ Auto Diff: CMP Comprehensive Metabolic Panel: CR Hand Min 3 Vws RT: CT Head WO: Cardiac Monitoring: ED Adult Fall Risk Assessment: ED Adult Triage: ED Clinical Reconciliation: ED news analyst: Normal Saline Flush: 10 mL, IV Push, [...] Color Yellow Urine Appearance Clear Urine Specific Sod 1.021 Urine pH Dipstick 7.5 Urine Leukocyte [...] % 30.2 % Lymph # 2.54 x10(3)/uL [place] % 5.2 % [place] # 0.44 K/uL Eos % 3.3 % [...] Fall Scale Risk Level 0-24 Low Risk [place] Fall Interventions Adequate lighting, Bed in low position, Call device within reach, Hourly comfort/safety rounds, Non-Slip footwear, Personal items within reach, Reinforced to call for assistance before getting out of bed, Room free of clutter/spills, Upper side-rails up, Wheels locked, Wires/Cords secured Fall Moderate to High Risk Interventions Patient room close to nurses station Communication Barrier None Primary Language Nepalese Information Obtained From Patient Smoking Status Refused [...] air Height Source Stated Height Entry Format [place] Height/Length, [place] (ft) 5 ft Height/Length [place] 3 Inch CLINICALHEIGHT 160.02 cm [place] Body Weight 52.02 kg Weight Source, ED Critical estimated dosing weight Weight Entry Format [place] Weight Nep[place]e lb 220 lb CLINICALWEIGHT 100 kg Body [...] Ambulate Tracking Acuity 3 - Urgent (Modified) Mix Maker Needed No Accompanied by Unaccompanied Mode of Arrival Ambulatory 06/03/2019 10:46 EDT Nurse Collect Order Detail 3.00 Nurse Collect Order Detail 3.00 . Radiology results: Radiology Results (Last 48 hours) [id number] -- 06/03/2019 10:45 CR Hand Min 3 [...] Adult, Syncope. Follow up with: ALVARADO STILES (REF[facility] Within 2 to 3 days Patient [...]
[2025-07-24 08:46] LABS: Hematocrit 38.0 % (37.0-47.0); Hemoglobin 12.3 g/dL (12.2-16.2); Immature Granulocytes % 0.1 %; Mean Corpuscular HGB Conc 32.4 g/dL (31.8-35.4); Mean Corpuscular Hemoglobin 28.6 pg (27.0-31.2); Mean Corpuscular Volume 88.4 fl (81-99); Nucleated Red Blood Cells % 0 %; Platelet Count 373 K/mm3 (142-424); Red Blood Count 4.30 M/mm3 (4.20-5.40); Red Cell Distribution Width-SD 45.0 fL; White Blood Count 8.1 K/mm3 (4.8-10.8)
[2025-07-24 18:49] LABS: Iron 55 ug/dL (37-170)
[2025-07-24 19:09] LABS: Total Iron Binding Capacity 360 ug/dL (265-497)
[2025-07-24 19:31] LABS: Ferritin 8.38 ng/ml (11.1-264)
== END 2025-07-24 23:59 | disposition home or self-care (01) ==
LOC: LAB 07:28
PROVIDERS: PCP Family Medicine; Visit Provider Internal Medicine Medical Oncology
DX: D64.9 Anemia, unspecified (principal)
CPT/HCPCS: 36415; 82728; 83540; 83550; 85025

== ENCOUNTER 2025-08-07 07:38 | Outpatient (CLI) | payer OTHER, SELFPAY ==
--- OUTSIDE RECORDS SUMMARY | 2025-08-07 07:41 | XMS_ITS | Referral Summary ---
Author Organization [employer] ([place], [place], [place], [place]) Address [address] [place] [address] Care Team Providers Care Installation Manager Name Role Phone Unavailable Primary Care [...]
--- OUTSIDE RECORDS SUMMARY | 2025-08-07 07:41 | XMS_ITS | Encounter Summary ---
Author Organization [employer] ([place], [place], [place], [place]) Address [address] [place] [address] Care Team Providers Care Rn Cardiology Name Role Phone Unavailable Primary Care Provider Unavailabl e Encounter Details Date Type Department Care Team (Late st Contact Info) Description 06/21/2021 Transcribed Document [facility] Family Medicine Count includes the [facility] [place] [address] ProviderRikki MD [address] [place] [phone] Social History Tobacco Use Types Packs/Day Years [...] : 2 - Emergent Tracking Group : [facility] ED Jasmina Rao RN - [...] PNED ; Probability: 0 ; Diagnosis Code: [id number] ED Height and Weight Height Source : Stated Height Entry Format : [place] Height, Feet : 5 ft(Converted to: 152 cm, 60 Inch) Height, Inches : 3 Inch(Converted to: 0 ft 3 Inch, 7.62 cm) Clinical Height : 160.02 cm Weight Source, ED : Critical estimated dosing weight Weight Entry Format : [place] Weight, Pounds : 220 lb Clinical Dosing Weight : 100 kg Body Surface Area (BSA) : 2.02 m2 Body Mass Index : 39.1 kg/m2 (HI) [place] Body Weight (IBW) : 52.02 kg Jasmina Rao RN - 06/21/2021 22:09 EDT documented in this encounter Plan of Treatment Not on file documented as of this encounter Visit Diagnoses Not on filedocumented in this encounter
--- OUTSIDE RECORDS SUMMARY | 2025-08-07 07:41 | XMS_ITS | Encounter Summary ---
Author Organization [employer] ([place], [place], [place], [place]) Address [address] [place] [address] Care Team Providers Care Assistant Chief Nursing Officer Name Role Phone Unavailable Primary Care Provider Unavailabl e Encounter Details Date Type Department Care Team (Late st Contact Info) Description 06/03/2019 Transcribed Document [facility] [place] [facility] [place] [address] ProviderRikki MD [address] [place], [place] [id number] Social History Tobacco Use Types Packs/Day Years [...] by Provider, No further action required x1 Electronically signed by Giacomo Azar Conversion Land Development Project Manager Cerner at 01/28/2023 11:14 PM CDT documented in this encounter Plan of Treatment Not on file documented as of this encounter Visit Diagnoses Not on filedocumented in this encounter
--- OUTSIDE RECORDS SUMMARY | 2025-08-07 07:41 | XMS_ITS | Encounter Summary ---
Author Organization [employer] ([place], [place], [place], [place]) Address [address] [place] [address] Care Team Providers Care Ferris Wheel Operator Name Role Phone Unavailable Primary Care Provider Unavailabl e Encounter Details Date Type Department Care Team (Late st Contact Info) Description 06/22/2021 Transcribed Document [facility] [place] [facility] Family Medicine [facility] [place] [address] ProviderRikki MD [address] [place] [id number] Social History Tobacco Use Types Packs/Day Years [...]
--- OUTSIDE RECORDS SUMMARY | 2025-08-07 07:41 | XMS_ITS | Encounter Summary ---
Author Organization [employer] ([place], [place], [place], [place]) Address [address] [place] [address] Care Team Providers Care Yard Coordinator Name Role Phone Unavailable Primary Care Provider Unavailabl e Encounter Details Date Type Department Care Team (Late st Contact Info) Description 06/03/2019 Transcribed Document [facility] Family Medicine [facility] [place] [address] ProviderRikki MD [address] [place] [place] [phone] Social History Tobacco Use Types Packs/Day Years [...] EDT Height Source Stated Height Entry Format [place] Height/Length, SOMALI (ft) 5 ft Height/Length [place] 3 Inch CLINICALHEIGHT 160.02 cm [place] Body Weight 52.02 kg Weight Source, ED Critical estimated dosing weight Weight Entry Format [place] Weight [place] lb 220 lb CLINICALWEIGHT 100 [...] Hand pain, wrist pain, fracture, sprain, contusion, [place], head injury, concussion,. Orders Include Previous Orders (Selected) Inpatient Orders Ordered EKG: Completed .Automated Differential: .Urinalysis Microscopic: CBC w/ Auto Diff: CMP Comprehensive Metabolic Panel: CR Hand Min 3 Vws RT: CT Head WO: Cardiac Monitoring: ED Adult Fall Risk Assessment: ED Adult Triage: ED Clinical Reconciliation: ED fugitive investigator: Normal Saline Flush: 10 mL, IV Push, [...] Color Yellow Urine Appearance Clear Urine Specific [place] 1.021 Urine pH Dipstick 7.5 Urine Leukocyte [...] % 30.2 % Lymph # 2.54 x10(3)/uL [place] % 5.2 % [place] # 0.44 K/uL Eos % 3.3 % [...] Fall Scale Risk Level 0-24 Low Risk [place] Fall Interventions Adequate lighting, Bed in low [...] air Height Source Stated Height Entry Format [place] Height/Length, SOMALI (ft) 5 ft Height/Length [place] 3 Inch CLINICALHEIGHT 160.02 cm [place] Body Weight 52.02 kg Weight Source, ED Critical estimated dosing weight Weight Entry Format [place] Weight [place] lb 220 lb CLINICALWEIGHT 100 [...] Ambulate Tracking Acuity 3 - Urgent (Modified) Freight Sorter Needed No Accompanied by Unaccompanied Mode of Arrival Ambulatory 06/03/2019 10:46 EDT Nurse Collect Order Detail 3.00 Nurse Collect Order Detail 3.00 . Radiology results: Radiology Results (Last 48 hours) [id number] -- 06/03/2019 10:45 CR Hand Min 3 [...] Syncope. Follow up with: [facility] Within 2 to 3 days [...]
--- OUTSIDE RECORDS SUMMARY | 2025-08-07 07:41 | XMS_ITS | Encounter Summary ---
Author Organization [employer] ([place], [place], [place], [place]) Address [address] [place] [address] Care Team Providers Care Hydrochloric Acid Operator Name Role Phone Unavailable Primary Care Provider Unavailabl e Encounter Details Date Type Department Care Team (Late st Contact Info) Description 06/03/2019 Transcribed Document [facility] [place] [facility] [place] [address] ProviderRikki MD [address] [place] [address] [phone] Social History Tobacco Use Types Packs/Day Years [...] 06/03/2019 15:02 EDT Electronically signed by Doe [facility] Conversion Ship Propeller Finisher Cerner at 01/28/2023 11:05 PM CDT documented in this encounter Plan of Treatment Not on file documented as of this encounter Visit Diagnoses Not on filedocumented in this encounter
--- OUTSIDE RECORDS SUMMARY | 2025-08-07 07:41 | XMS_ITS | Encounter Summary ---
Author Organization [employer] ([place], [place], [place], [place]) Address [address] [place] [address] Care Team Providers Care Staffing Manager Name Role Phone Unavailable Primary Care Provider Unavailabl e Encounter Details Date Type Department Care Team (Late st Contact Info) Description 06/22/2021 Transcribed Document [facility] [place] [facility] [place] [address] ProviderRikki MD [address] [place] [address] Social History Tobacco Use Types Packs/Day [...] MD - 06/22/2021 2:03 AM CDT [facility] [place] [address] KASSI KONG :1970 Visit Time:06/21/2021 Your [...] 2 to 3 days Where: [place] [address]- [facility] (1) Allergies SUMAtriptan (Other Anaphylactic Shock, [...] range between ( 0.0 and 7.0 ) [place] #: 0.52 K/uL -- Normal range between ( 0.16 and 1.00 ) Eos #: 0.24 x10(3)/uL -- Normal range between ( 0.00 and 0.80 ) [place] %: 5.3 % -- Normal range between [...] these instructions at home: Medicines ??? Take opfp-sam-rpxkuyh and prescription medicines only as told by [...] provider. Document Revised: 04/03/2019 Document Reviewed: 04/03/2019 [employer] Patient Education ?? 2020 [employer]. Emergency Awareness and Preventative Care STROKE is [...] Assistance with quitting is available by contacting 1-559-ZYOM-NOW. This is a free resource providing counseling, [...] was given the opportunity to ask questions. Patient/Bicycle Messenger Name: Patient/Bicycle Messenger Signature: Relationship to Patient: Clinician/Hospital Bicycle Messenger Signature: Please Provide a Telephone Number Where You Can Be Reached: Is it Permissible To Leave a Message? Date: documented in this encounter Plan of Treatment Not on file documented as of this encounter Visit Diagnoses Not on filedocumented in this encounter
--- OUTSIDE RECORDS SUMMARY | 2025-08-07 07:41 | XMS_ITS | Encounter Summary ---
Author Organization [employer] ([place], [place], [place], [place]) Address [address] [place] [address] Care Team Providers Care Tube Draw Helper Name Role Phone Unavailable Primary Care Provider Unavailabl e Encounter Details Date Type Department Care Team (Late st Contact Info) Description 06/21/2021 Transcribed Document [facility] [place] [facility] [address] ProviderRikki MD [address] [place] [address] [phone] Social History Tobacco Use Types Packs/Day Years [...] Communication Barrier : None Primary Language : Korean Any Spiritual/Cultural Needs or Requests : No [...]
--- OUTSIDE RECORDS SUMMARY | 2025-08-07 07:41 | XMS_ITS | Encounter Summary ---
Author Organization [employer] ([place], [place], [place], [place]) Address [address] [place] [address] Care Team Providers Care Learning And Development Administrator Name Role Phone Unavailable Primary Care Provider Unavailabl e Encounter Details Date Type Department Care Team (Late st Contact Info) Description 06/11/2019 Transcribed Document [facility] [place] [address] [place] [address] ProviderRikki MD [address] [place], [place] [id number] Social History Tobacco Use Types Packs/Day Years [...]
--- OUTSIDE RECORDS SUMMARY | 2025-08-07 07:41 | XMS_ITS | Encounter Summary ---
Author Organization [employer] ([place], [place], [place], [place]) Address [address] [place] [address] Care Team Providers Care 4Th Grade Math Teacher Name Role Phone Unavailable Primary Care Provider Unavailabl e Encounter Details Date Type Department Care Team (Late st Contact Info) Description 06/03/2019 Transcribed Document [facility] [place] [address] ProviderRikki MD [address] [place] [address] Social History Tobacco Use Types Packs/Day [...] - 06/03/2019 2:51 PM CDT [facility] [place] [address] KASSI KONG :1970 Visit Time:06/03/2019 Your Visit Summary Your Care Team Admitting Physician - DRE POWER MARK, MD Attending Physician - MARIEL MCCRAY MD Primary Care Physician - ALVARADO STILES (REF), -[facility] Referring Physician - MARIEL MCCRAY MD [...] in the future. Where: [place] [address] [place] [address]- Allergies SUMAtriptan (Other Anaphylactic Shock, Other Anaphylactic [...] range between ( 0.0 and 7.0 ) [place] #: 0.44 K/uL -- Normal range between ( 0.16 and 1.00 ) Eos #: 0.28 x10(3)/uL -- Normal range between ( 0.00 and 0.80 ) [place] %: 5.2 % -- Normal range between [...] ) Urine Bilirubin Dipstick: Negative Urine Specific [place]: 1.021 -- Normal range between ( 1.005 [...] stand. This can reduce dizziness. ??? Take qlgh-cir-bjjqqll and prescription medicines only as told by [...] 10/01/2006 Document Revised: 03/08/2017 Document Reviewed: 06/14/2016 [employer]Sania Interactive Patient Education ?? 2018 [employer] Inc. Head Injury, Adult There are many [...] Ask your health care provider for a emxd-fj-njdg plan for gradually returning to activities. ??? [...] your friends, family, a trusted colleague, and production line worker about your injury, symptoms, and restrictions. Have them watch for any new or worsening problems. General instructions ??? Take xtch-dae-crksqsp and prescription medicines only as told by [...] 04/10/2017 Elsevier Interactive Patient Education ?? 2019 [employer] Contusion A contusion is a deep [...] This is often called the RICE strategy. Rdyf-pbr-zyovdsc anti-inflammatory medicines may also be recommended for [...] are sitting or lying down. ??? Take aqpi-naf-qnpgonu and prescription medicines only as told by [...] 07/11/2006 Document Revised: 02/08/2017 Document Reviewed: 02/16/2016 [employer] Interactive Patient Education ?? 2019 [employer] Inc. Concussion, Adult A concussion is a [...] are taking any medicines, including prescription medicines, yxqq-gkn-gnrxeto medicines, and natural remedies. Some medicines, such [...] returning to activities. General instructions ??? Take yjmd-tjj-roqoede and prescription medicines only as told by [...] Tell your teachers, school nurse, school counselor, basketball coach, certified personal trainer, or production line worker about your injury, symptoms, and restrictions. [...] 12/21/2004 Document Revised: 09/11/2017 Document Reviewed: 09/11/2017 [employer]Sania Interactive Patient Education ?? 2019 [employer]ania Inc. Emergency Awareness and Preventative Care STROKE [...] Assistance with quitting is available by contacting 1-055-QMGJ-NOW. This is a free resource providing counseling, [...] was given the opportunity to ask questions. Patient/Customer Contact Specialist Name: Patient/Customer Contact Specialist Signature: Relationship to Patient: Clinician/Hospital Customer Contact Specialist Signature: Please Provide a Telephone Number Where You Can Be Reached: Is it Permissible To Leave a Message? Date: documented in this encounter Plan of Treatment Not on file documented as of this encounter Visit Diagnoses Not on filedocumented in this encounter
--- OUTSIDE RECORDS SUMMARY | 2025-08-07 07:41 | XMS_ITS | Encounter Summary ---
Author Organization [employer] ([place], [place], [place], [place]) Address [address] [place] [address] Care Team Providers Care Mini Shifter Name Role Phone Unavailable Primary Care Provider Unavailabl e Encounter Details Date Type Department Care Team (Late st Contact Info) Description 06/22/2021 Transcribed Document [facility] [place] [facility] [place] [address] ProviderRikki MD [address] [place] [address] [id number] Social History Tobacco Use Types Packs/Day Years [...]
--- OUTSIDE RECORDS SUMMARY | 2025-08-07 07:41 | XMS_ITS | Encounter Summary ---
Author Organization [employer] ([place], [place], [place], [place]) Address [address] [place] [address] Care Team Providers Care Television Cameraman Name Role Phone Unavailable Primary Care Provider Unavailabl e Encounter Details Date Type Department Care Team (Late st Contact Info) Description 06/03/2019 Transcribed Document [facility] [place] [facility] [place] [address] ProviderRikki MD [address] [place] [address] Social History Tobacco Use Types Packs/Day [...] 2:51 PM CDT [facility] [place] [address] KASSI KONG :1970 Visit Time:06/03/2019 Your Visit Summary Your Care Team Admitting Physician - DRE POWER MARK, MD Attending Physician - MARIEL MCCRAY MD Primary Care Physician - ALVARADO STILES (REF), -[facility] Referring Physician - MARIEL MCCRAY [...] in the future. Where: [place] [address]- Allergies SUMAtriptan (Other Anaphylactic Shock, Other Anaphylactic [...] range between ( 0.0 and 7.0 ) [place] #: 0.44 K/uL -- Normal range between ( 0.16 and 1.00 ) Eos #: 0.28 x10(3)/uL -- Normal range between ( 0.00 and 0.80 ) [place] %: 5.2 % -- Normal range between [...] ) Urine Bilirubin Dipstick: Negative Urine Specific [place]: 1.021 -- Normal range between ( 1.005 [...] stand. This can reduce dizziness. ??? Take ijlk-rch-rsenkzy and prescription medicines only as told by [...] 10/01/2006 Document Revised: 03/08/2017 Document Reviewed: 06/14/2016 [employer] Network S.A[employer]S Interactive Patient Education ?? 2018 [employer] Network S.A.S Inc. Head Injury, Adult There are many [...] Ask your health care provider for a fvbh-jf-qlaw plan for gradually returning to activities. ??? [...] your friends, family, a trusted colleague, and cushion worker about your injury, symptoms, and restrictions. Have them watch for any new or worsening problems. General instructions ??? Take deyr-cfa-qewejsn and prescription medicines only as told by [...] 04/10/2017 Elsevier Interactive Patient Education ?? 2019 ElseViajala Inc. Contusion A contusion is a deep [...] This is often called the RICE strategy. Xttt-odt-drclknr anti-inflammatory medicines may also be recommended for [...] are sitting or lying down. ??? Take xynw-qju-kgcdnuu and prescription medicines only as told by [...] 07/11/2006 Document Revised: 02/08/2017 Document Reviewed: 02/16/2016 [employer] Network S.A.S Interactive Patient Education ?? 2019 [employer] S.A.S Inc. Concussion, Adult A concussion is a [...] are taking any medicines, including prescription medicines, ugli-jtf-tzybkod medicines, and natural remedies. Some medicines, such [...] returning to activities. General instructions ??? Take ctpd-gwc-wgvriif and prescription medicines only as told by [...] Tell your teachers, school nurse, school counselor, ice skating coach, customer trainer, or cushion worker about your injury, symptoms, and restrictions. [...] 12/21/2004 Document Revised: 09/11/2017 Document Reviewed: 09/11/2017 Thought Network S.A.S Interactive Patient Education ?? 2019 [employer] Network S.A.S Inc. Emergency Awareness and Preventative Care STROKE [...] Assistance with quitting is available by contacting 7-991-ZARB-NOW. This is a free resource providing counseling, [...] was given the opportunity to ask questions. Patient/Aircraft Machinist Name: Patient/Aircraft Machinist Signature: Relationship to Patient: Clinician/Hospital Aircraft Machinist Signature: Please Provide a Telephone Number Where You Can Be Reached: Is it Permissible To Leave a Message? Date: Electronically signed by Doe, Giacomo Conversion Customer Service Sales Associate Cerner at 01/28/2023 11:06 PM CDT documented in this encounter Plan of Treatment Not on file documented as of this encounter Visit Diagnoses Not on filedocumented in this encounter
--- OUTSIDE RECORDS SUMMARY | 2025-08-07 07:41 | XMS_ITS | Encounter Summary ---
Author Organization [facility] Address [address] [place] [address] Care Team Providers Care Audio Visual Collections Coordinator Name Role Phone Valentin Daniel MD Primary Care Provider [phone] Encounter Details Date Type Department Care Team (Late st Contact Info) Description 05/11/2025 Results Follow-Up [facility] Medicine Specialties [address] [place] [address] Angela Todd, DIRECTOR OF RECRUITING [address] [place] [address] Social History Tobacco Use Types [...] [facility] [address] [place] [address] Sim Tillman MD [address] [place] [address] 11/11/2025 12:50 PM EST Office Visit [facility] Medicine Specialties [address] [place] [address] Angela Todd APRN [address] [place] [address] documented as of this encounter [...] documented as of this encounter Care Teams Audio Visual Collections Coordinator Relationship Specialty Start Date End Date Valentin Daniel MD PCP - General 09/18/22 documented as of this encounter
--- OUTSIDE RECORDS SUMMARY | 2025-08-07 07:41 | XMS_ITS | Clinical Summary ---
[facility] Organization [facility] Address [address] [place] [address] Care Team Providers Care Customer Acquisition Manager Name Role Phone Provider, No Known Primary [...] Pneumococcal Vaccine 50+ (2 of 2 - PCV20 or PCV21) 2021 07/29/2019 TDAP/TD VACCINES (2 - Td or Tdap) 06/20/2021 011 INFLUENZA VACCINE 05/15/2025 08/06/2023, , 07/07/2021, Additional history exists ZOSTER VACCINE Completed 01/16/2022, 07/27/2021 Insurance COMM[employer]CIAL [employer] Care Teams Customer Acquisition Manager Relationship Specialty Start Date End Date [place], [place] [address] PCP - General 08/09/23
--- OUTSIDE RECORDS SUMMARY | 2025-08-07 07:41 | XMS_ITS | Encounter Summary ---
Author Organization [employer] ([place], [place], [place], [place]) Address [address] [place] [address] Care Team Providers Care Kiln Burner Helper Name Role Phone Unavailable Primary Care Provider Unavailabl e Encounter Details Date Type Department Care Team (Late st Contact Info) Description 06/21/2021 Transcribed Document [facility] [place] Medicine [address] [place] [address] ProviderRikki MD [address] [place], [place] [address] Social History Tobacco Use Types Packs/Day Years [...]
--- OUTSIDE RECORDS SUMMARY | 2025-08-07 07:41 | XMS_ITS | Encounter Summary ---
Author Organization [employer] ([place], [place], [place], [place]) Address [address] [place] [address] Care Team Providers Care Sports Instructor Name Role Phone Unavailable Primary Care Provider Unavailabl e Encounter Details Date Type Department Care Team (Late st Contact Info) Description 06/22/[address] [facility] [place] [facility] [place] [address] ProviderRikki MD [address] [place] [address] [phone] Social History Tobacco Use Types Packs/Day Years [...] had a heart cath done by her school age program associate in [place] in February, she did not have any [...] EDT Height Source Stated Height Entry Format Jefferson Height/Length, HAITIAN (ft) 5 ft Height/Length HAITIAN 3 Inch CLINICALHEIGHT 160.02 cm Jerome Body Weight 52.02 kg Weight Source, ED Critical estimated dosing weight Weight Entry Format Jefferson Weight Grenadian lb 220 lb CLINICALWEIGHT 100 kg Body [...] Triage: ED C-SSRS: ED Clinical Reconciliation: ED hard tile setter apprentice: EKG: Normal Saline Flush: 10 mL, IV [...] % 30.8 % Lymph # 3.02 x10(3)/uL Baxter % 5.3 % Baxter # 0.52 K/uL Eos % 2.4 % [...] instructions. Electronically signed by Giacomo Azar Conversion Electrician Journeyman Wireman Cerner at 01/28/2023 11:00 PM CDT documented in this encounter Plan of Treatment Not on file documented as of this encounter Visit Diagnoses Not on filedocumented in this encounter
--- OUTSIDE RECORDS SUMMARY | 2025-08-07 07:41 | XMS_ITS | Encounter Summary ---
Author Organization [employer] ([place], [place], [place], [place]) Address [address] [place] [address] Care Team Providers Care Od Grinder Operator Name Role Phone Unavailable Primary Care Provider Unavailabl e Encounter Details Date Type Department Care Team (Late st Contact Info) Description 06/03/2019 Transcribed Document [facility] [place] Medicine [address] [place] [address] ProviderRikki MD [address] [place], [place] [phone] Social History Tobacco Use Types Packs/Day Years [...] EDT DCP GENERIC CODE Tracking Group : [facility] ED MARC GREENWOOD RN - [...] Recent Thoughts of Harming/Killing Others : No Regional Sales Manager Needed : No MARC GREENWOOD RN [...] PNED ; Probability: 0 ; Diagnosis Code: [id number] ED Height and Weight Height Source : [...] Body Mass Index : 39.1 kg/m2 (HI) [place] Body Weight (IBW) : 52.02 kg MARC [...]
--- OUTSIDE RECORDS SUMMARY | 2025-08-07 07:41 | XMS_ITS | Encounter Summary ---
Author Organization [facility] ([place], [place], [place], [place]) Address [address] [place] [address] Care Team Providers Care Renewable Energy Division Manager Name Role Phone Unavailable Primary Care Provider Unavailabl e Encounter Details Date Type Department Care Team (Late st Contact Info) Description 06/03/2019 Transcribed Document [facility] [place] [address] [place] [address] ProviderRikki MD [address], [place] [phone] Social History Tobacco Use Types Packs/Day Years [...] Communication Barrier : None Primary Language : Croatian Any Spiritual/Cultural Needs or Requests : No [...] EDT Electronically signed by [facility] Conversion Grades 1 Through 5 Teacher Cerner at 01/28/2023 10:51 PM CDT documented in this encounter Plan of Treatment Not on file documented as of this encounter Visit Diagnoses Not on filedocumented in this encounter
--- OUTSIDE RECORDS SUMMARY | 2025-08-07 07:41 | XMS_ITS | Encounter Summary ---
Author Organization [employer] ([place], [place], [place], [place]) Address [address] [place] [address] Care Team Providers Care Magnetometer Operator Name Role Phone Unavailable Primary Care Provider Unavailabl e Encounter Details Date Type Department Care Team (Late st Contact Info) Description 06/03/2019 Transcribed Document [facility] [place] [facility] [place] [address] ProviderRikki MD [address] [place] [phone] Social History Tobacco Use Types Packs/Day Years [...]
--- OUTSIDE RECORDS SUMMARY | 2025-08-07 07:41 | XMS_ITS | Encounter Summary ---
Author Organization [employer] ([place], [place], [place], [place]) Address [address] [place] [address] Care Team Providers Care Cogeneration Technician Name Role Phone Unavailable Primary Care Provider Unavailabl e Encounter Details Date Type Department Care Team (Late st Contact Info) Description 06/22/2021 Transcribed Document [facility] [place] [address] ProviderRikki MD [address] [place] [address] [phone] Social History Tobacco Use Types Packs/Day Years [...]
--- OUTSIDE RECORDS SUMMARY | 2025-08-07 07:41 | XMS_ITS | Clinical Summary ---
Author Organization [employer] ([place], [place], [place], [place]) Address [address] [place] [address] Care Team Providers Care Roofing Contractor Name Role Phone Unavailable Primary Care Provider [...]
--- OUTSIDE RECORDS SUMMARY | 2025-08-07 07:41 | XMS_ITS | Encounter Summary ---
Author Organization [employer] ([place], [place], [place], [place]) Address [address] [place] [address] Care Team Providers Care Box Blank Machine Operator Helper Name Role Phone Unavailable Primary Care Provider Unavailabl e Encounter Details Date Type Department Care Team (Late st Contact Info) Description 06/21/2021 Transcribed Document [facility] [place] Family Medicine [address] [place] [address] ProviderRikki MD [address] [place], [place] [id number] Social History Tobacco Use Types Packs/Day Years [...] Historical ProviderMD - 06/21/2021 9:55 PM CDT [place] Suicide Severity Rating Scale (C-SSRS) Entered On: 06/21/2021 22:29 EDT Performed On: 06/21/2021 22:27 EDT by Aruna Garcia [place] Suicide Severity Rating Scale (C-SSRS) CSSRS Past [...]
--- OUTSIDE RECORDS SUMMARY | 2025-08-07 07:42 | XMS_ITS | Encounter Summary ---
Author Organization [facility] Address [address] [place] [address] Care Team Providers Care Plastic Tool Maker Name Role Phone Valentin Daniel MD Primary Care Provider [phone] Encounter Details Date Type Department Care Team (Latest Contact Info) Description 02/05/2025 Community [facility] [address] [place] [address] Valentin Daniel MD [address] [place] [address] Polyneuropathy (Primary Dx); Foot drop, left foot [...] Consult [place] [facility] [address] [place] [address] Sim Tillman MD [address] [place] [address] 11/11/2025 12:50 PM EST Office Visit [facility] Medicine Specialties [address] [place] [address] Angela Todd, NURSE TRANSITIONAL [address] [facility] [address] [place] [address] documented as of this encounter [...] documented as of this encounter Care Teams Plastic Tool Maker Relationship Specialty Start Date End Date Valentin Daniel MD PCP - General 09/18/22 documented as of this encounter
--- OUTSIDE RECORDS SUMMARY | 2025-08-07 07:42 | XMS_ITS | Clinical Summary ---
Author Organization [facility] Address [address] [place] [address] Care Team Providers Care Chicken Vaccinator Name Role Phone Valentin Daniel MD Primary Care Provider [phone] Allergies Active Allergy Reactions Criticality Noted Date [...] cream 01/21/20 21 Active ergocalciferol 1.25 MG (10416 UT) capsule TAKE ONE CAPSULE BY MOUTH EVERY WEEK DIRECTED 03/01/20 21 Active HYDROcodone-acetam inophen ([place]) 10-325 MG tablet TAKE ONE TABLET BY [...] MG tablet 01/28/20 24 Active nystatin (Mycostatin) 562907 UNIT/GM powder 02/01/20 24 Active omeprazole (PriLOSEC) [...] Type Department Care Team Description 05/13/2025 Refill [facility] Medicine Specialties [address] [place] [address] Angela Todd, HARVESTING MANAGER 05/11/2025 Results Follow-Up [facility] Medicine Specialties [address] [place] [address] Angela Todd, HARVESTING MANAGER from Last 3 Months Immunizations Immunization Administration [...] Consult [place] [facility] [address] [place] [address] Sim Tillman MD [address] [place] [address] 11/11/2025 12:50 PM EST Office Visit [place] [facility] Medicine Specialties [address] [place] [address] PeytonAngela byrd L, HARVESTING MANAGER [address] [place] [address] Health Maintenance Due Date Last [...] (2 - Td or Tdap) 06/20/2021 06/20/2011 [id number] Vaccine ( season) 2025 07/14/2021, 11/17/2020, 10/28/2020 [...] MRSA 04/20/2021 04/20/2021 Insurance A[employer] Care Teams Chicken Vaccinator Relationship Specialty Start Date End Date Valentin Daniel MD PCP - General 09/18/22
--- OUTSIDE RECORDS SUMMARY | 2025-08-07 07:42 | XMS_ITS | Data Portability ---
Author Organization [facility] SHASH[facility] Ross[facility] Address [address] [facility] [address] [place] [address] Care Team Providers Care Principal Data Architect Name Role Phone SANGEETA BENOIT Primary Care [...] the patient to obtain a disc from [facility] and bring the disc to us. Once we have the disc, I will have Dr. Walker review the imaging and contact the patient. I have scheduled her for a follow-up appointment in 6 weeks as well. [email or web address] Not available 07/02/2024 11:48:35 10/17/2024 10/17/2024 Kassi [...] headaches, consider further evaluation by headache specialist. [email or web address] Not available 10/17/2024 12:21:54 Plan of Treatment Reminders Order Date Submit Date Provider Last Modified By Organization Details Last Modified Time Details Appointments None recorded. Lab None recorded. Referral None recorded. Procedures None recorded. Surgeries None recorded. Imaging None recorded. Medication Orders cyclobenzap rine 10 mg tablet 2023 024 [facility], [address] [place] [address], [id number], 11:01:23 Patient TargetsNo targets recorded. Patient InstructionsNo instructions recorded. Reason for Referral None Reported. Results Created Date Observation Date Name Description Value Unit Range Abnormal Flag Note LastModifiedBy Organization Detail LastModifiedTime 06/12/2006/11/2024 MRI, lumba r spine , w/wo contr ast No observ ation record ed. [email or web address] Not Available 2023 11:20:48 08/22/2008/19/2024 MRI, cervi claribel spine , w/wo contr ast No observ ation record ed. [email or web address] Not Available 2024 16:06:42 Result Notes None recorded. Procedures Surgical History Date Name Laterality Status Provider Name and Address Organization Details Recorded Time [facility] 05/21/2024 10:17:19 section completed [facility] 05/21/2024 10:17:33 Appendectomy completed [facility] 05/21/2024 10:17:40 Cholecystectomy completed [facility] 05/21/2024 10:17:48 hysterectomy completed [facility] 05/21/2024 10:17:58 Gastric bypass for obesity completed [facility] 05/21/2024 10:18:08 Imaging Results None recorded. [...] Updated DateTime 10/17/2024 160.02 cm 33.7 kg/m2 40397.55 g 122/82 mm[Hg] [facility] 10/17/2024 09:17:07 Date Recorded Body height Body mass index (BMI) Body weight Systolic And Diastolic Provider Name and Address Organization Details Last Updated DateTime 05/21/2024 160.02 cm 33.7 kg/m2 94399.55 g 130/82 mm[Hg] [facility] 05/21/2024 10:25:23 Date Recorded Body height Body mass index (BMI) Body weight Systolic And Diastolic Provider Name and Address Organization Details Last Updated DateTime 07/02/2024 160.02 cm 33.7 kg/m2 41865.55 g 126/82 mm[Hg] [facility] 07/02/2024 11:21:39 Social History None recorded. [...] ICD10 Code Diagnosis IMO Codes Diagnosis Note [id number] SKIP KAUFMAN PA-C [facility] [address] [place] [address] 05/21/2024 09:59:46 05/23/2024 14:19:21 Lumbar radiculopathy [id number] M54.16 [id number] SKIP KAUFMAN PA-C [facility] [address] [place] [address] 07/02/2024 10:12:30 07/07/2024 10:32:51 Lumbar radiculopathy [id number] M54.16 Low back pain 317655583 M54.50 [id number] VÍCTOR WALKER MD [facility] [address] [place] [address] 10/17/2024 09:09:50 10/18/2024 05:47:25 Headache [id number] R51.9 Health Concerns Section Related Observation LastModified by Organization Detai ls LastModified Time None Recorded Concern Status LastModified by Organization Details LastModified Time None Recorded Advance Directives Directive None Recorded Payers Insurance Date Sequence Insurance Name Policy Number Policy Junior Covered Member ID Junior Member ID Guarantor Name 10/15/2024 1 [employer] (EPO) [id number] Kassi Claudio [id number] Kassi Claudio Notes Date Note Type [...] being on warfarin. SKIP KAUFMAN PA-C [address] [place], [address], [facility] 05/21/2024 11:01:32 4 text/html ROS as [...] resolved. She had her MRI completed at [facility] on 06/11/2024 but did not obtain a disc with the MRI images to bring to her appointment today. SKIP KAUFMAN PA-C [facility] [place], [address], [facility] 07/02/2024 11:49:01 5 text/html ROS as [...] massager seems to help. VÍCTOR WALKER MD [facility] [place], [address], [facility] 10/17/2024 12:23:13 OBGyn Episode No OBEpisode recorded.
--- OUTSIDE RECORDS SUMMARY | 2025-08-07 07:42 | XMS_ITS | Encounter Summary ---
Author Organization [facility] Address [address] [place] [address] Care Team Providers Care Test Deskman Name Role Phone Valentin Daniel MD Primary Care Provider [phone] Reason for Referral * Consultation (Routine) - Authorized Specialty Diagnoses / Procedures Referred By Contac t Referred To Contact Neurology Diagnoses Left foot drop Mechanical problems with limbs Polyneuropathy Valentin Daniel MD [address] [place] [address] Phone: tel: fax: Referral ID Status Reason Start Date Expiration Date Visits Requested Visits Authorized [id number] Authorized Specialty Services Required 02/16/2025 08/18/2026 1 1 Encounter Details Date Type Department Care Team (Late st Contact Info) Description 02/16/2025 Community [facility] Community Practice [address] [place] [address] Valentin Daniel MD [address] [place] [address] Left foot drop (Primary Dx); Mechanical [...] Info) Description 10/30/2025 8:00 AM EST Consult [facility] [address], [address] [place] [address] Sim Tillman MD [address] [place] [address] 11/11/2025 12:50 PM EST Office Visit [facility] Medicine Specialties [address] [place] [address] Angela Todd APRN [address] [place] [address] Scheduled Referrals Name Type Priority [...] documented as of this encounter Care Teams Test Deskman Relationship Specialty Start Date End Date Valentin Daniel MD PCP - General 09/18/22 documented as of this encounter
--- NOTE | 2025-08-07 08:00 | US_ITS ---
FINAL REPORT TECHNIQUE: Multiple transverse and longitudinal images CLINICAL HISTORY: ALMAGUER-- fam hx FINDINGS: Patient is status postcholecystectomy. No biliary ductal dilatation is appreciated. No fluid collections are seen. There is diffuse fatty change of the liver. Limited portions of the right kidney are unremarkable. Pancreas is largely obscured. IMPRESSION: Fatty liver. Reviewed, Interpreted and Dictated by Mina Wright MD Transcribed by Jenna Hammonds Authenticated and [facility]
--- NOTE | 2025-08-07 08:45 | CA_ITS ---
APPROVED REPORT EXAM: Comprehensive 2D, Doppler, and color-flow Echocardiogram Breast Surgeon: MARCELA Monroe, RVS Ht: 5 ft 3 in Wt: 186lbs BSA: 1.88 BP: 122/80 mmHg Indications: Edema, ALMAGUER, Murmur, LEMUEL, Lupus 2D Dimensions Left Atrium 3.35 cm F: 2.7 - 3.8 LA Volume 53.20 mL LA Volume Index 28.30 mL/m2 (M/F) 16-34 M-Mode Dimensions RVDd 1.37 cm (0.9-2.6) LA Diam 4.04 cm (1.9-4.0) LVDd 5.09 cm (3.5-5.7) LVDs 3.22 cm (3.5-5.7) IVSd 0.70 cm (0.6-1.1) PWd 0.74 cm (0.6-1.1) EF (Teich) 66.20% EPSs 0.24 cm FS 36.70% EDV (Teich) 123.20 mL TAPSE 2.48 (<1.7) ESV (Teich) 41.60 mL LV Diastology E Decel Time 183 (160-240 msec) E/A Ratio 0.99 MED A' 10.60 cm/s LAT A' 14.50 cm/s Aortic Valve THU Index 0.94 cm2/m2 AoV Peak Skyler. 152.0 (50-130 cm/s) AI PHT 495.00 ms AO Peak GR. 9.20 mmHg AO Mean GR. 4.90 (<5 mmHg) AO VTI 33.5 (18-25 cm) THU (VTI) 1.81 (2.5-4.5 cm2) Mitral Valve MV A Velocity 92.0 (40-130 cm/s) E/A Ratio 0.99 Pulmonary Valve PV Peak Velocity 152.0 (50-150 cm/s) Left Ventricle The left ventricle is normal size. Left ventricular systolic function is normal. The left ventricular ejection fraction is within the normal range. There is increased left ventricular wall thickness. There is normal LV segmental wall motion. The left ventricular diastolic function is normal. LVEF is 55% Right Ventricle The right ventricle is normal size. The right ventricular systolic function is normal. Atria The left atrium size is normal. The right atrium size is normal. There is no color Doppler evidence of interatrial shunt. Aortic Valve The aortic valve is mildly thickened. There is no hemodynamically significant aortic valvular stenosis. Mild aortic regurgitation is present. Mitral Valve The mitral valve is normal in structure. No evidence of mitral valve stenosis. Trace mitral regurgitation is present. Tricuspid Valve The tricuspid valve leaflets are thin and pliable. Trace tricuspid regurgitation. There is insufficient TR jet to estimate RVSP. Pulmonic Valve The pulmonary valve is grossly normal in structure. Trace pulmonic valve regurgitation is present. Great Vessels The aortic root is normal in size. IVC is normal in size and collapses >50% with inspiration. Pericardium There is no pericardial effusion. Other Information Study Quality: Fair Conclusion Normal biventricular systolic function. Mild AI. Electronically signed by : Erma Dumont MD 08/15/2025 16:02:48
== END 2025-08-07 23:59 | disposition home or self-care (01) ==
LOC: RAD 07:39
PROVIDERS: PCP Family Medicine; Visit Provider Family Medicine
DX: I35.1 Nonrheumatic aortic (valve) insufficiency (principal); K75.81 Nonalcoholic steatohepatitis (NASH); G47.33 Obstructive sleep apnea (adult) (pediatric); I50.9 Heart failure, unspecified; R60.9 Edema, unspecified
CPT/HCPCS: 76705; 93306

== ENCOUNTER 2025-08-18 07:46 | Outpatient (CLI) | payer OTHER, SELFPAY ==
--- OUTSIDE RECORDS SUMMARY | 2025-08-18 07:48 | XMS_ITS | Encounter Summary ---
Author Organization [employer] ([place], [place], [place], [place], [place]) Address [address] [place] [address] Care Team Providers Care Insulation Board Back Tender Name Role Phone Unavailable Primary Care Provider Unavailabl e Encounter Details Date Type Department Care Team (Late st Contact Info) Description 06/11/2019 Transcribed Document [facility] [place] [address] [place] [address] ProviderRikki MD [address] [place], [place] [id number] Social History Tobacco Use Types Packs/Day Years [...]
--- OUTSIDE RECORDS SUMMARY | 2025-08-18 07:48 | XMS_ITS | Encounter Summary ---
Author Organization [employer] ([place], [place], [place], [place]) Address [address] [place] [address] Care Team Providers Care Applications Engineering Manager Name Role Phone Unavailable Primary Care Provider Unavailabl e Encounter Details Date Type Department Care Team (Late st Contact Info) Description 06/03/2019 Transcribed Document [facility] [place] Family Medicine [address] [place] [address] ProviderRikki MD [address] [place] [id number] Social History Tobacco Use Types Packs/Day Years [...] x1 Electronically signed by Giacomo Azar Conversion Ordnance Engineering Technician Cerner at 01/28/2023 11:14 PM CDT documented in this encounter Plan of Treatment Not on file documented as of this encounter Visit Diagnoses Not on filedocumented in this encounter
--- OUTSIDE RECORDS SUMMARY | 2025-08-18 07:48 | XMS_ITS | Referral Summary ---
Author Organization [employer] ([place], [place], [place], [place], [place]) Address [address] [place] [address] Care Team Providers Care Sprigger Name Role Phone Unavailable Primary Care Provider [...]
--- OUTSIDE RECORDS SUMMARY | 2025-08-18 07:48 | XMS_ITS | Encounter Summary ---
Author Organization [employer] ([place], [place], [place], [place]) Address [address] [place] [address] Care Team Providers Care Nitrating Acid Mixer Name Role Phone Unavailable Primary Care Provider Unavailabl e Encounter Details Date Type Department Care Team (Late st Contact Info) Description 06/22/2021 Transcribed Document [facility] [place] Medicine [facility] [place] [address] ProviderRikki MD [address] [place] [address] Social History Tobacco Use Types Packs/Day Years [...] had a heart cath done by her mechanotherapist in [place] in February, she did not have any [...] EDT Height Source Stated Height Entry Format Rock Height/Length, PRYDEINIG (ft) 5 ft Height/Length PRYDEINIG 3 Inch CLINICALHEIGHT 160.02 cm Matinicus Body Weight 52.02 kg Weight Source, ED Critical estimated dosing weight Weight Entry Format Rock Weight Citizen Of [place] lb 220 lb CLINICALWEIGHT 100 kg Body [...] ED C-SSRS: ED Clinical Reconciliation: ED manager of data: EKG: Normal Saline Flush: 10 mL, IV [...] % 30.8 % Lymph # 3.02 x10(3)/uL Guadalupe % 5.3 % Guadalupe # 0.52 K/uL Eos % 2.4 % [...]
--- OUTSIDE RECORDS SUMMARY | 2025-08-18 07:48 | XMS_ITS | Encounter Summary ---
Author Organization [employer] ([place], [place], [place], [place]) Address [address] [place] [address] Care Team Providers Care Middle School Band Teacher Name Role Phone Unavailable Primary Care Provider Unavailabl e Encounter Details Date Type Department Care Team (Late st Contact Info) Description 06/22/2021 Transcribed Document [facility] [place] [facility] [place] [address] ProviderRikki MD [address] [place] [address] [phone] Social History Tobacco Use Types Packs/Day Years [...]
--- OUTSIDE RECORDS SUMMARY | 2025-08-18 07:48 | XMS_ITS | Encounter Summary ---
Author Organization [employer] ([place], [place], [place], [place], [place]) Address [address] [place] [address] Care Team Providers Care Scoop Operator Name Role Phone Unavailable Primary Care Provider Unavailabl e Encounter Details Date Type Department Care Team (Late st Contact Info) Description 06/21/2021 Transcribed Document [facility] [place] [address] [place] [address] ProviderRikki MD [address] [place], [place] [id number] Social History Tobacco Use Types Packs/Day Years [...]
--- OUTSIDE RECORDS SUMMARY | 2025-08-18 07:48 | XMS_ITS | Encounter Summary ---
Author Organization [employer] ([place], [place], [place], [place]) Address [address] [place] [address] Care Team Providers Care Brake Reliner Name Role Phone Unavailable Primary Care Provider Unavailabl e Encounter Details Date Type Department Care Team (Late st Contact Info) Description 06/22/2021 Transcribed Document [facility] [place] Family Medicine [facility] [address] ProviderRikki MD [address] [place] [address] Social History Tobacco Use Types Packs/Day [...] MD - 06/22/2021 2:03 AM CDT [facility] [place] [address] KASSI KONG :1970 Visit Time:06/21/2021 Your [...] Within 2 to 3 days Where: [facility] [address]- Business (1) Allergies SUMAtriptan (Other Anaphylactic Shock, Other [...] range between ( 0.0 and 7.0 ) [place] #: 0.52 K/uL -- Normal range between ( 0.16 and 1.00 ) Eos #: 0.24 x10(3)/uL -- Normal range between ( 0.00 and 0.80 ) [place] %: 5.3 % -- Normal range between [...] these instructions at home: Medicines ??? Take erca-wyo-bqvyqcw and prescription medicines only as told by [...] provider. Document Revised: 04/03/2019 Document Reviewed: 04/03/2019 [employer] Patient Education ?? 2020 [employer]. Emergency Awareness and Preventative Care STROKE [...] Assistance with quitting is available by contacting 3-275-FBHC-NOW. This is a free resource providing counseling, [...] was given the opportunity to ask questions. Patient/Charter Pilot Name: Patient/Charter Pilot Signature: Relationship to Patient: Clinician/Hospital Charter Pilot Signature: Please Provide a Telephone Number Where You Can Be Reached: Is it Permissible To Leave a Message? Date: documented in this encounter Plan of Treatment Not on file documented as of this encounter Visit Diagnoses Not on filedocumented in this encounter
--- OUTSIDE RECORDS SUMMARY | 2025-08-18 07:48 | XMS_ITS | Clinical Summary ---
Author Organization [facility] ([place], [place], [place], [place], [place]) Address [address] [place] [address] Care Team Providers Care Project Surveyor Name Role Phone Unavailable Primary Care Provider [...]
--- OUTSIDE RECORDS SUMMARY | 2025-08-18 07:48 | XMS_ITS | Encounter Summary ---
Author Organization [employer] ([place], [place], [place], [place]) Address [address] [place] [address] Care Team Providers Care Deputy District Customs Director Name Role Phone Unavailable Primary Care Provider Unavailabl e Encounter Details Date Type Department Care Team (Late st Contact Info) Description 06/21/2021 Transcribed Document [facility] [place] Family Medicine [facility] [place] [address] ProviderRikki MD [address] [place] [address] [phone] Social History Tobacco Use Types Packs/Day Years [...] EDT Musculoskeletal Musculoskeletal Assessment WDL : Aruna Fleimng 06/21/2021 22:27 EDT Integumentary Assessment Integumentary Assessment WDL : Aruna Fleming 06/21/2021 22:27 EDT documented in this encounter Plan of Treatment Not on file documented as of this encounter Visit Diagnoses Not on filedocumented in this encounter
--- OUTSIDE RECORDS SUMMARY | 2025-08-18 07:48 | XMS_ITS | Encounter Summary ---
Author Organization [employer] ([place], [place], [place], [place], [place]) Address [address] [place] [address] Care Team Providers Care Perforator Name Role Phone Unavailable Primary Care Provider Unavailabl e Encounter Details Date Type Department Care Team (Late st Contact Info) Description 06/21/2021 Transcribed Document [place] Family Medicine [facility] [place] [address] ProviderRikki MD [address] [place] [address] [phone] Social History Tobacco Use Types Packs/Day Years [...] Shock, Other Anaphylactic Shock ; Created By: TYRONE TiradoKEAGAN; Reaction Status: Active ; Category: Drug ; Substance: SUMAtriptan ; Type: Allergy ; Updated By: Contributor_[email or web address]; Reviewed Date: 06/21/2021 22:11 EDT Diagnosis Control ED (As Of: 06/21/2021 22:12:36 EDT) Diagnoses(Active) Chest pain Date: 06/21/2021 ; Diagnosis Type: Reason For Visit ; Confirmation: Complaint of ; Clinical Dx: Chest pain ; Classification: Medical ; Clinical Service: Non-Specified ; Code: PNED ; Probability: 0 ; Diagnosis Code: [id number] ED Height and Weight Height Source : Stated Height Entry Format : [place] Height, Feet : 5 ft(Converted to: 152 cm, 60 Inch) Height, Inches : 3 Inch(Converted to: 0 ft 3 Inch, 7.62 cm) Clinical Height : 160.02 cm Weight Source, ED : Critical estimated dosing weight Weight Entry Format : [place] Weight, Pounds : 220 lb Clinical Dosing Weight : 100 kg Body Surface Area (BSA) : 2.02 m2 Body Mass Index : 39.1 kg/m2 (HI) Orr Body Weight (IBW) : 52.02 kg Jasmina Rao RN - 06/21/2021 22:09 EDT documented in this encounter Plan of Treatment Not on file documented as of this encounter Visit Diagnoses Not on filedocumented in this encounter
--- OUTSIDE RECORDS SUMMARY | 2025-08-18 07:48 | XMS_ITS | Encounter Summary ---
Author Organization [employer] ([place], [place], [place], [place]) Address [address] [place] [address] Care Team Providers Care Sanitation Worker Name Role Phone Unavailable Primary Care Provider Unavailabl e Encounter Details Date Type Department Care Team (Late st Contact Info) Description 06/22/2021 Transcribed Document [facility] [place] Family Medicine [facility] [address] ProviderRikki MD [address] [place] [address] [phone] Social History Tobacco Use Types Packs/Day Years [...] : Yes Nursing Documentation Completed : Yes Arnua Garcia - 06/22/2021 2:09 EDT ED Discharge Discharge To : Home with ambulatory/outpatient follow-up Mode Of Departure : Ambulatory Accompanied By : Unaccompanied Discharge Instructions Reviewed With, Opportunity For Questions Given : Patient Prescriptions Given to Patient : No Aruna Garcia - 06/22/2021 2:09 EDT Electronically signed by Giacomo Azar Conversion Infantry Operations Specialist Cerrandi at 01/28/2023 11:09 PM CDT documented in this encounter Plan of Treatment Not on file documented as of this encounter Visit Diagnoses Not on filedocumented in this encounter
--- OUTSIDE RECORDS SUMMARY | 2025-08-18 07:48 | XMS_ITS | Encounter Summary ---
Author Organization [facility] Address [address] [place] [address] Care Team Providers Care K9 Handler Name Role Phone Valentin Daniel MD Primary Care Provider [phone] Encounter Details Date Type Department Care Team (Late st Contact Info) Description 05/11/2025 Results Follow-Up [facility] Medicine Specialties [address] [place] [address] Angela Todd, SUCTION WORKER [address] [place] [address] Social History Tobacco Use Types [...] Info) Description 10/30/2025 8:00 AM EST Consult [facility] [address], [address] [place] [address] Sim Tillman MD [address] [place] [address] 11/11/2025 12:50 PM EST Office Visit [facility] Medicine Specialties [address], [address] [place] [address] Angela Todd APRN [address] [place] [address] documented as of this encounter [...] documented as of this encounter Care Teams K9 Handler Relationship Specialty Start Date End Date Valentin Daniel MD PCP - General 09/18/22 documented as of this encounter
--- OUTSIDE RECORDS SUMMARY | 2025-08-18 07:48 | XMS_ITS | Encounter Summary ---
Author Organization [employer] ([place], [place], [place], [place], [place]) Address [address] [place] [address] Care Team Providers Care Senior Online Marketing Manager Name Role Phone Unavailable Primary Care Provider Unavailabl e Encounter Details Date Type Department Care Team (Late st Contact Info) Description 06/22/2021 Transcribed Document [facility] [place] [facility] [place] [address] ProviderRikki MD [address] [place] [address] [phone] Social History Tobacco Use Types Packs/Day Years [...]
--- OUTSIDE RECORDS SUMMARY | 2025-08-18 07:49 | XMS_ITS | Encounter Summary ---
Author Organization [employer] ([place], [place], [place], [place]) Address [address] [place] [address] Care Team Providers Care Grain Manager Name Role Phone Unavailable Primary Care Provider Unavailabl e Encounter Details Date Type Department Care Team (Late st Contact Info) Description 06/03/[address] [facility] [place] Medicine [facility] [place] [address] ProviderRikki MD [address] [place] [address] [phone] Social History Tobacco Use Types Packs/Day Years [...] Conversion Note - Rikki ProviderMD - 06/03/2019 3:02 PM CDT ED [...] - 06/03/2019 15:02 EDT Electronically signed by Interface, [facility] Conversion Senior Animator Cerner at 01/28/2023 11:05 PM CDT documented in this encounter Plan of Treatment Not on file documented as of this encounter Visit Diagnoses Not on filedocumented in this encounter
--- OUTSIDE RECORDS SUMMARY | 2025-08-18 07:49 | XMS_ITS | Encounter Summary ---
Author Organization [facility] Address [address] [place] [address] Care Team Providers Care Tile Power Shear Operator Name Role Phone Valentin Daniel MD Primary Care Provider [phone] Encounter Details Date Type Department Care Team (Latest Contact Info) Description 02/05/2025 Community [facility] Community Practice [address] [place] [address] Valentin Daniel MD [address] [place] [address] Polyneuropathy (Primary Dx); Foot drop, left foot [...] Consult [place] [facility] [address] [place] [address] Sim Tillman MD [address] [place] [address] 11/11/2025 12:50 PM EST Office Visit [facility] Medicine Specialties [address] [place] [address] Angela Todd, ARCHITECTURE ANALYST [address] [facility] [address] [place] [address] documented as of this encounter [...] as of this encounter Care Teams Tile Power Shear Operator Relationship Specialty Start Date End Date Valentin Daniel MD PCP - General 09/18/22 documented as of this encounter
--- OUTSIDE RECORDS SUMMARY | 2025-08-18 07:49 | XMS_ITS | Encounter Summary ---
Author Organization [facility] ([place], [place], [place], [place], [place]) Address [address] [place] [address] Care Team Providers Care Bonderite Operator Name Role Phone Unavailable Primary Care Provider Unavailabl e Encounter Details Date Type Department Care Team (Late st Contact Info) Description 06/03/2019 Transcribed Document [facility] [place] Family Medicine [facility] [place] [address] ProviderRikki MD [address] [place] [address] Social History Tobacco Use Types Packs/Day [...] Montoya MD - 06/03/2019 2:51 PM CDT [facility] [place] [address] KASSI KONG :1970 Visit Time:06/03/2019 Your Visit Summary Your Care Team Admitting Physician - DRE POWER MARK, MD Attending Physician - MARIEL MCCRAY MD Primary Care Physician - ALVARADO STILES (REF), -[facility] Referring Physician - MARIEL MCCRAY [...] in the future. Where: [place] [address] [place] [address]- Allergies SUMAtriptan (Other Anaphylactic Shock, Other Anaphylactic [...] range between ( 0.0 and 7.0 ) [place]íza #: 0.44 K/uL -- Normal range between ( 0.16 and 1.00 ) Eos #: 0.28 x10(3)/uL -- Normal range between ( 0.00 and 0.80 ) [place] %: 5.2 % -- Normal range between [...] ) Urine Bilirubin Dipstick: Negative Urine Specific [place]: 1.021 -- Normal range between ( 1.005 [...] stand. This can reduce dizziness. ??? Take yqdb-qsh-bshjcdq and prescription medicines only as told by [...] 10/01/2006 Document Revised: 03/08/2017 Document Reviewed: 06/14/2016 [employer] Patient Education ?? 2018 [employer] Head Injury, Adult There are many [...] Ask your health care provider for a ehxb-tl-zqdf plan for gradually returning to activities. ??? [...] your friends, family, a trusted colleague, and field crop i farmworker about your injury, symptoms, and restrictions. Have them watch for any new or worsening problems. General instructions ??? Take kkde-rgr-iwvcjhc and prescription medicines only as told by [...] This is often called the RICE strategy. Ufrn-kmd-rfubhks anti-inflammatory medicines may also be recommended for [...] are sitting or lying down. ??? Take qarh-suw-wsnizpj and prescription medicines only as told by [...] 07/11/2006 Document Revised: 02/08/2017 Document Reviewed: 02/16/2016 [employer] Patient Education ?? 2019 [employer] Concussion, Adult A concussion is a [...] are taking any medicines, including prescription medicines, ihqn-wiq-fhhcwwd medicines, and natural remedies. Some medicines, such [...] returning to activities. General instructions ??? Take mthe-hwh-ngbelqj and prescription medicines only as told by [...] your teachers, school nurse, school counselor, assistant women's basketball coach, athletic team physician, or field crop i farmworker about your injury, symptoms, and restrictions. [...] 12/21/2004 Document Revised: 09/11/2017 Document Reviewed: 09/11/2017 [employer] Interactive Patient Education ?? 2019 [employer] Emergency Awareness and Preventative Care STROKE [...] Assistance with quitting is available by contacting 8-296-DQYF-NOW. This is a free resource providing counseling, [...] was given the opportunity to ask questions. Patient/Auto Damage Appraiser Name: Patient/Auto Damage Appraiser Signature: Relationship to Patient: Clinician/Hospital Auto Damage Appraiser Signature: Please Provide a Telephone Number Where You Can Be Reached: Is it Permissible To Leave a Message? Date: documented in this encounter Plan of Treatment Not on file documented as of this encounter Visit Diagnoses Not on filedocumented in this encounter
--- OUTSIDE RECORDS SUMMARY | 2025-08-18 07:49 | XMS_ITS | Clinical Summary ---
Author Organization [facility] Address [address] [place] [address] Care Team Providers Care Sales Account Director Name Role Phone Provider, No Known Primary [...] 01/16/2022, 07/27/2021 Insurance COMMERCIAL [employer] Care Teams Sales Account Director Relationship Specialty Start Date End Date [place] [address] PCP - General 08/09/23
--- OUTSIDE RECORDS SUMMARY | 2025-08-18 07:49 | XMS_ITS | Encounter Summary ---
Author Organization [employer] ([place], [place], [place], [place], [place]) Address [address] [place] [address] Care Team Providers Care Manager Food Name Role Phone Unavailable Primary Care Provider Unavailabl e Encounter Details Date Type Department Care Team (Late st Contact Info) Description 06/03/2019 Transcribed Document [facility] Family Medicine [facility] [place] [address] ProviderRikki MD [address] [place] [address] Social History Tobacco Use Types Packs/Day [...] Montoya MD - 06/03/2019 2:51 PM CDT [facility] [address] KASSI KONG :1970 Visit Time:06/03/2019 Your Visit Summary Your Care Team Admitting Physician - DRE POWER MARK, MD Attending Physician - MARIEL MCCRAY MD Primary Care Physician - ALVARADO STILES (REF), -[facility] Referring Physician - MARIEL MCCRAY MD [...] in the future. Where: [place] [address] [place] [address]- Allergies SUMAtriptan (Other Anaphylactic Shock, Other Anaphylactic [...] range between ( 0.0 and 7.0 ) [place] #: 0.44 K/uL -- Normal range between ( 0.16 and 1.00 ) Eos #: 0.28 x10(3)/uL -- Normal range between ( 0.00 and 0.80 ) [place] %: 5.2 % -- Normal range between [...] ) Urine Bilirubin Dipstick: Negative Urine Specific [place]: 1.021 -- Normal range between ( 1.005 [...] stand. This can reduce dizziness. ??? Take gzcz-gwo-stpxycy and prescription medicines only as told by [...] 10/01/2006 Document Revised: 03/08/2017 Document Reviewed: 06/14/2016 [employer] Interactive Patient Education ?? 2018 [employer] Head Injury, Adult There are many [...] Ask your health care provider for a dfcs-ef-pjla plan for gradually returning to activities. ??? [...] your friends, family, a trusted colleague, and sanitation worker cleaning machinery about your injury, symptoms, and restrictions. Have them watch for any new or worsening problems. General instructions ??? Take maol-cex-tvkpvrf and prescription medicines only as told by [...] This is often called the RICE strategy. Xphs-hee-tkeffrv anti-inflammatory medicines may also be recommended for [...] are sitting or lying down. ??? Take xfpp-yku-gvkewit and prescription medicines only as told by [...] 07/11/2006 Document Revised: 02/08/2017 Document Reviewed: 02/16/2016 [employer] Interactive Patient Education ?? 2019 [employer] Concussion, Adult A concussion is a [...] are taking any medicines, including prescription medicines, ybic-usk-dnzicba medicines, and natural remedies. Some medicines, such [...] returning to activities. General instructions ??? Take yjrt-fod-kodmrub and prescription medicines only as told by [...] Tell your teachers, school nurse, school counselor, motor coach tour operator, canine service instructor trainer, or sanitation worker cleaning machinery about your injury, symptoms, and restrictions. Tell [...] 12/21/2004 Document Revised: 09/11/2017 Document Reviewed: 09/11/2017 [employer] Interactive Patient Education ?? 2019 [employer] Emergency Awareness and Preventative Care STROKE [...] Assistance with quitting is available by contacting 2-969-BFGK-NOW. This is a free resource providing counseling, [...] was given the opportunity to ask questions. Patient/Finnish Rubber Name: Patient/Finnish Rubber Signature: Relationship to Patient: Clinician/Hospital Finnish Rubber Signature: Please Provide a Telephone Number Where You Can Be Reached: Is it Permissible To Leave a Message? Date: documented in this encounter Plan of Treatment Not on file documented as of this encounter Visit Diagnoses Not on filedocumented in this encounter
--- OUTSIDE RECORDS SUMMARY | 2025-08-18 07:49 | XMS_ITS | Clinical Summary ---
Author Organization [facility] Address [address] [place] [address] Care Team Providers Care Tarring Machine Operator Name Role Phone Valentin Daneil MD Primary Care Provider [phone] Allergies Active Allergy Reactions Criticality Noted Date [...] cream 01/21/20 21 Active ergocalciferol 1.25 MG (43543 UT) capsule TAKE ONE CAPSULE BY MOUTH EVERY WEEK DIRECTED 03/01/20 21 Active HYDROcodone-acetam inophen ([place]) 10-325 MG tablet TAKE ONE TABLET BY [...] MG tablet 01/28/20 24 Active nystatin (Mycostatin) 753435 UNIT/GM powder 02/01/20 24 Active omeprazole (PriLOSEC) [...] reflux dis ease without esophagitis 06/25/2013 07/16/2024 Immunizations Immunization Administration Dates Next Due Influenza, [...] Description 10/30/2025 8:[address] [facility] [address] [place] [address] Sim Tillman MD [address] [place] [address] 11/11/2025 12:50 PM EST Office Visit [facility] Medicine Specialties [address] [place] [address] Angela Todd APRN [address] [place] [address] Health Maintenance Due Date Last [...] (2 - Td or Tdap) 06/20/2021 06/20/2011 [id number] Vaccine ( season) 2025 07/14/2021, 11/17/2020, 10/28/2020 [...] MRSA 04/20/2021 04/20/2021 Insurance AETNA Care Teams Tarring Machine Operator Relationship Specialty Start Date End Date Valentin Daniel MD PCP - General 09/18/22
--- OUTSIDE RECORDS SUMMARY | 2025-08-18 07:49 | XMS_ITS | Encounter Summary ---
Author Organization [facility] Address [address] [place] [address] Care Team Providers Care Supervisor Pipe Manufacture Name Role Phone Valentin Daniel MD Primary Care Provider [phone] Reason for Referral * Consultation (Routine) - Authorized Specialty Diagnoses / Procedures Referred By Contac t Referred To Contact Neurology Diagnoses Left foot drop Mechanical problems with limbs Polyneuropathy Valentin Daniel MD [address] [place] [address] Phone: tel: fax: Referral ID Status Reason Start Date Expiration Date Visits Requested Visits Authorized [id number] Authorized Specialty Services Required 02/16/2025 08/18/2026 1 1 Encounter Details Date Type Department Care Team (Late st Contact Info) Description 02/16/2025 [facility] [address] [place] [address] Valentin Daniel MD [address] [place] [address] Left foot drop (Primary Dx); Mechanical [...] Info) Description 10/30/2025 8:00 AM EST Consult [facility] [address] [place] [address] Sim Tillman MD [address] [place] [address] 11/11/2025 12:50 PM EST Office Visit [facility] Medicine Specialties [address] [place] [address] Angela Todd APRN [address] [place] [address] Scheduled Referrals Name Type Priority [...] documented as of this encounter Care Teams Supervisor Pipe Manufacture Relationship Specialty Start Date End Date Valentin Daniel MD PCP - General 09/18/22 documented as of this encounter
--- OUTSIDE RECORDS SUMMARY | 2025-08-18 07:49 | XMS_ITS | Encounter Summary ---
Author Organization [employer] ([place], [place], [place], [place], [place]) Address [address] [place] [address] Care Team Providers Care Laundry Pricing Clerk Name Role Phone Unavailable Primary Care Provider Unavailabl e Encounter Details Date Type Department Care Team (Late st Contact Info) Description 06/03/2019 Transcribed Document [facility] [place] [place] Family Medicine [facility] [place] [address] ProviderRikki MD [address] [place] [id number] Social History Tobacco Use Types Packs/Day Years [...]
--- OUTSIDE RECORDS SUMMARY | 2025-08-18 07:49 | XMS_ITS | Encounter Summary ---
Author Organization [email or web address] ([place], [place], [place], [place], [place]) Address [address] [place] [address] Care Team Providers Care Industrial Relations Officer Name Role Phone Unavailable Primary Care Provider Unavailabl e Encounter Details Date Type Department Care Team (Late st Contact Info) Description 06/03/2019 Transcribed Document [facility] [place] [facility] [place] [address] ProviderRikki MD [address] [place] [address] Social History Tobacco Use Types Packs/Day Years [...] EDT Height Source Stated Height Entry Format [place]arr[place] Height/Length, CENTRAL AFRICAN (ft) 5 ft Height/Length CENTRAL AFRICAN 3 Inch CLINICALHEIGHT 160.02 cm [place] Body Weight 52.02 kg Weight Source, ED Critical estimated dosing weight Weight Entry Format [place] Weight Zimbabwean lb 220 lb CLINICALWEIGHT 100 kg Body [...] Hand pain, wrist pain, fracture, sprain, contusion, [place], head injury, concussion,. Orders Include Previous Orders (Selected) Inpatient Orders Ordered EKG: Completed .Automated Differential: .Urinalysis Microscopic: CBC w/ Auto Diff: CMP Comprehensive Metabolic Panel: CR Hand Min 3 Vws RT: CT Head WO: Cardiac Monitoring: ED Adult Fall Risk Assessment: ED Adult Triage: ED Clinical Reconciliation: ED heel seat fitter machine: Normal Saline Flush: 10 mL, IV Push, [...] 06/03/2019 13:08 EDT EKG Completed by NEVILLE CHOE RN EKG Time Completed 06/03/2019 12:15 EKG Communicated [...] Color Yellow Urine Appearance Clear Urine Specific [place] 1.021 Urine pH Dipstick 7.5 Urine Leukocyte [...] % 30.2 % Lymph # 2.54 x10(3)/uL Ness % 5.2 % Ness # 0.44 K/uL Eos % 3.3 % [...] Fall Scale Risk Level 0-24 Low Risk [place] Fall Interventions Adequate lighting, Bed in low position, Call device within reach, Hourly comfort/safety rounds, Non-Slip footwear, Personal items within reach, Reinforced to call for assistance before getting out of bed, Room free of clutter/spills, Upper side-rails up, Wheels locked, Wires/Cords secured Fall Moderate to High Risk Interventions Patient room close to nurses station Communication Barrier None Primary Language Zimbabwean Information Obtained From Patient Smoking Status Refused [...] air Height Source Stated Height Entry Format [place] Height/Length, CENTRAL AFRICAN (ft) 5 ft Height/Length CENTRAL AFRICAN 3 Inch CLINICALHEIGHT 160.02 cm [place] Body Weight 52.02 kg Weight Source, ED Critical estimated dosing weight Weight Entry Format Garrard Weight [place]an lb 220 lb CLINICALWEIGHT 100 kg Body [...] Ambulate Tracking Acuity 3 - Urgent (Modified) Electrotyper Apprentice Needed No Accompanied by Unaccompanied Mode of Arrival Ambulatory 06/03/2019 10:46 EDT Nurse Collect Order Detail 3.00 Nurse Collect Order Detail 3.00 . Radiology results: Radiology Results (Last 48 hours) [id number] -- 06/03/2019 10:45 CR Hand Min 3 [...] Adult, Syncope. Follow up with: ALVARADO STILES (REF)[facility] Within 2 to 3 days Patient states??Dr. [...]
--- OUTSIDE RECORDS SUMMARY | 2025-08-18 07:49 | XMS_ITS | Data Portability ---
Author Organization [facility] Address [address] [facility] [address] [place] [address] Care Team Providers Care Gill Net Stringer Name Role Phone SANGEETA BENOIT Primary Care [...] 6 weeks once imaging has been completed. [email or web address] Not available 05/21/2024 11:00:40 07/02/2024 07/02/2024 Kassi [...] the patient to obtain a disc from [facility] and bring the disc to us. Once we have the disc, I will have Dr. Walker review the imaging and contact the patient. I have scheduled her for a follow-up appointment in 6 weeks as well. [email or web address] Not available 07/02/2024 11:48:35 10/17/2024 10/17/2024 Kassi [...] headaches, consider further evaluation by headache specialist. [email or web address] Not available 10/17/2024 12:21:54 Plan of Treatment Reminders Order Date Submit Date Provider Last Modified By Organization Details Last Modified Time Details Appointments None recorded. Lab None recorded. Referral None recorded. Procedures None recorded. Surgeries None recorded. Imaging None recorded. Medication Orders cyclobenzap rine 10 mg tablet 2023 024 [facility] [address] [place] [address], [id number], 11:01:23 Patient TargetsNo targets recorded. Patient InstructionsNo instructions recorded. Reason for Referral None Reported. Results Created Date Observation Date Name Description Value Unit Range Abnormal Flag Note LastModifiedBy Organization Detail LastModifiedTime 06/12/2006/11/2024 MRI, lumba r spine , w/wo contr ast No observ ation record ed. [email or web address] Not Available 2023 11:20:48 08/22/2008/19/2024 MRI, cervi claribel spine , w/wo contr ast No observ ation record ed. [email or web address] Not Available 2024 16:06:42 Result Notes None recorded. Procedures Surgical History Date Name Laterality Status Provider Name and Address Organization Details Recorded [facility] 05/21/2024 10:17:19 section completed [facility] 05/21/2024 10:17:33 Appendectomy completed [facility] 05/21/2024 10:17:40 Cholecystectomy completed [facility] 05/21/2024 10:17:48 hysterectomy completed [facility] 05/21/2024 10:17:58 Gastric bypass for obesity completed [facility] 05/21/2024 10:18:08 Imaging Results None recorded. Procedure [...] Updated DateTime 10/17/2024 160.02 cm 33.7 kg/m2 32802.55 g 122/82 mm[Hg] [facility] 10/17/2024 09:17:07 Date Recorded Body height Body mass index (BMI) Body weight Systolic And Diastolic Provider Name and Address Organization Details Last Updated DateTime 05/21/2024 160.02 cm 33.7 kg/m2 22221.55 g 130/82 mm[Hg] [facility] 05/21/2024 10:25:23 Date Recorded Body height Body mass index (BMI) Body weight Systolic And Diastolic Provider Name and Address Organization Details Last Updated DateTime 07/02/2024 160.02 cm 33.7 kg/m2 92258.55 g 126/82 mm[Hg] [facility] 07/02/2024 11:21:39 Social History None recorded. Functional [...] ICD10 Code Diagnosis IMO Codes Diagnosis Note [id number] SKIP KAUFMAN PA-C [facility] [address] [place] [address] 05/21/2024 09:59:46 05/23/2024 14:19:21 Lumbar radiculopathy [id number] M54.16 [id number] SKIP KAUFMAN PA-C [facility] [address] [place] [address] 07/02/2024 10:12:30 07/07/2024 10:32:51 Lumbar radiculopathy 523017310 M54.16 Low back pain 065437913 M54.50 [id number] VÍCTOR WALKER MD [facility] [address] [place] [address] 10/17/2024 09:09:50 10/18/2024 05:47:25 Headache 19458572 R51.9 Health Concerns Section Related Observation LastModified by Organization Detai ls LastModified Time None Recorded Concern Status LastModified by Organization Details LastModified Time None Recorded Advance Directives Directive None Recorded Payers Insurance Date Sequence Insurance Name Policy Number Policy Junior Covered Member ID Junior Member ID Guarantor Name 10/15/2024 1 AETNA (EPO) [id number] Kassi Claudio [id number] Kassi Claudio Notes Date Note Type [...] being on warfarin. SKIP KAUFMAN PA-C [address] [place], [address], [facility] 05/21/2024 11:01:32 4 text/html ROS [...] resolved. She had her MRI completed at [facility] on 06/11/2024 but did not obtain a disc with the MRI images to bring to her appointment today. SKIP KAUFMAN PA-C [facility] [place], [address], [facility] 07/02/2024 11:49:01 5 text/html ROS [...] massager seems to help. VÍCTOR WALKER MD [facility] [place], [address], [facility] 10/17/2024 12:23:13 OBGyn Episode No OBEpisode recorded.
--- OUTSIDE RECORDS SUMMARY | 2025-08-18 07:49 | XMS_ITS | Encounter Summary ---
Author Organization [employer] ([place], [place], [place], [place], [place]) Address [address] [place] [address] Care Team Providers Care Podiatry Doctor Name Role Phone Unavailable Primary Care Provider Unavailabl e Encounter Details Date Type Department Care Team (Late st Contact Info) Description 06/21/2021 Transcribed Document [facility] [place] [address] ProviderRikki MD [address] [place] [id number] Social History Tobacco Use Types Packs/Day Years [...] Historical ProviderMD - 06/21/2021 9:55 PM CDT [place] Suicide Severity Rating Scale (C-SSRS) Entered On: 06/21/2021 22:29 EDT Performed On: 06/21/2021 22:27 EDT by Aruna Garcia [place] Suicide Severity Rating Scale (C-SSRS) CSSRS Past [...]
--- OUTSIDE RECORDS SUMMARY | 2025-08-18 07:49 | XMS_ITS | Encounter Summary ---
Author Organization [employer] ([place], [place], [place], [place], [place]) Address [address] [place] [address] Care Team Providers Care Inspector Precision Name Role Phone Unavailable Primary Care Provider Unavailabl e Encounter Details Date Type Department Care Team (Late st Contact Info) Description 06/03/2019 Transcribed Document [facility] [place] Family Medicine [address] [place] [address] ProviderRikki MD [address] [place], [place] [id number] Social History Tobacco Use Types Packs/Day Years [...] Communication Barrier : None Primary Language : Czech Any Spiritual/Cultural Needs or Requests : No [...] - 06/03/2019 11:10 EDT Electronically signed by [facility], [facility] Conversion Tool Design Checker Cerner at 01/28/2023 10:51 PM CDT documented in this encounter Plan of Treatment Not on file documented as of this encounter Visit Diagnoses Not on filedocumented in this encounter
--- OUTSIDE RECORDS SUMMARY | 2025-08-18 07:49 | XMS_ITS | Encounter Summary ---
Author Organization [employer] ([place], [place], [place], [place], [place]) Address [address] [place] [address] Care Team Providers Care Tablet Making Machine Operator Name Role Phone Unavailable Primary Care Provider Unavailabl e Encounter Details Date Type Department Care Team (Late st Contact Info) Description 06/03/2019 Transcribed Document [facility] [address] [place] [address] ProviderRikki MD [address] [place], [place] [id number] Social History Tobacco Use Types Packs/Day Years [...] EDT DCP GENERIC CODE Tracking Group : [facility] ED MARC GREENWOOD RN - 06/03/2019 [...] Recent Thoughts of Harming/Killing Others : No Geodetic Advisor Needed : No MARC GREENWOOD RN - [...] PNED ; Probability: 0 ; Diagnosis Code: [id number] ED Height and Weight Height Source : Stated Height Entry Format : [place] Height, Feet : 5 ft(Converted to: 152 cm, 60 Inch) Height, Inches : 3 Inch(Converted to: 0 ft 3 Inch, 7.62 cm) Clinical Height : 160.02 cm Weight Source, ED : Critical estimated dosing weight Weight Entry Format : [place] Weight, Pounds : 220 lb Clinical Dosing Weight : 100 kg Body Surface Area (BSA) : 2.02 m2 Body Mass Index : 39.1 kg/m2 (HI) [place] Body Weight (IBW) : 52.02 kg MARC [...]
[2025-08-18 15:11] LABS: PHA INR Fingerstick 3.2 (0.9-1.1)
== END 2025-08-18 15:22 ==
LOC: ACC 07:46
PROVIDERS: PCP Family Medicine; Visit Provider Family Medicine
DX: Z79.01 Long term (current) use of anticoagulants (principal)
CPT/HCPCS: 85610; 99211; G0463

== ENCOUNTER 2025-09-03 12:42 | Outpatient (CLI) | payer OTHER, SELFPAY ==
--- OUTSIDE RECORDS SUMMARY | 2025-09-03 13:47 | XMS_ITS | Encounter Summary ---
Author Organization [facility] Address [address] [place] [address] Care Team Providers Care Linux System Admin Name Role Phone Valentin Daniel MD Primary Care Provider [phone] Encounter Details Date Type Department Care Team (Late st Contact Info) Description 05/11/2025 Results Follow-Up [facility] Medicine Specialties [address] [place] [address] Angela Todd, PATIENT ACCOUNT SPECIALIST [address] [place] [address] Social History Tobacco Use Types [...] Info) Description 10/30/2025 8:00 AM EST Consult [facility] [address] [place] [address] Sim Tillman MD [address] [place] [address] 11/11/2025 12:50 PM EST Office Visit [facility] Medicine Specialties [address] [place] [address] Angela Todd APRN [address] [place] [address] documented as of this encounter [...] documented as of this encounter Care Teams Linux System Admin Relationship Specialty Start Date End Date Valentin Daniel MD PCP - General 09/18/22 documented as of this encounter
--- OUTSIDE RECORDS SUMMARY | 2025-09-03 13:47 | XMS_ITS | Referral Summary ---
Author Organization [employer] ([place], [place], [place], [place], [place]) Address [address] [place] [address] Care Team Providers Care Windmill Technician Name Role Phone Unavailable Primary Care [...]
--- OUTSIDE RECORDS SUMMARY | 2025-09-03 13:48 | XMS_ITS | Clinical Summary ---
Author Organization [employer] ([place], [place], [place], [place]) Address [address] [place] [address] Care Team Providers Care Vegetable Trimmer Name Role Phone Unavailable Primary Care [...]
--- OUTSIDE RECORDS SUMMARY | 2025-09-03 13:48 | XMS_ITS | Encounter Summary ---
Author Organization [employer] ([place], [place], [place], [place]) Address [address] [place] [address] Care Team Providers Care Membership Administrator Name Role Phone Unavailable Primary Care Provider Unavailabl e Encounter Details Date Type Department Care Team (Late st Contact Info) Description 06/22/2021 Transcribed Document [facility] [place] Family Medicine [facility] [place] [address] ProviderRikki MD [address] [place] [address] [id number] Social History Tobacco Use Types Packs/Day Years [...]
--- OUTSIDE RECORDS SUMMARY | 2025-09-03 13:48 | XMS_ITS | Encounter Summary ---
Author Organization [employer] ([place], [place], [place], [place], [place]) Address [address] [place] [address] Care Team Providers Care Professional Application Designer Name Role Phone Unavailable Primary Care Provider Unavailabl e Encounter Details Date Type Department Care Team (Late st Contact Info) Description 06/22/2021 Transcribed Document [facility] [place] [address] ProviderRikki MD [address] [place] [address] Social History Tobacco Use Types Packs/Day [...] Montoya MD - 06/22/2021 2:03 AM CDT [facility] [place] [address] KASSI KONG :1970 Visit Time:06/21/2021 Your [...] 2 to 3 days Where: [facility] [address]- Business (1) Allergies SUMAtriptan (Other Anaphylactic Shock, [...] range between ( 0.0 and 7.0 ) Tama #: 0.52 K/uL -- Normal range between ( 0.16 and 1.00 ) Eos #: 0.24 x10(3)/uL -- Normal range between ( 0.00 and 0.80 ) Tama %: 5.3 % -- Normal range between [...] these instructions at home: Medicines ??? Take hsic-tmn-xulpkdy and prescription medicines only as told by [...] provider. Document Revised: 04/03/2019 Document Reviewed: 04/03/2019 [employer] Patient Education ?? 2020 [employer]. Emergency Awareness and Preventative Care STROKE is [...] Assistance with quitting is available by contacting 0-632-KSZB-NOW. This is a free resource providing counseling, [...] was given the opportunity to ask questions. Patient/Magazine Publisher Name: Patient/Magazine Publisher Signature: Relationship to Patient: Clinician/Hospital Magazine Publisher Signature: Please Provide a Telephone Number Where You Can Be Reached: Is it Permissible To Leave a Message? Date: documented in this encounter Plan of Treatment Not on file documented as of this encounter Visit Diagnoses Not on filedocumented in this encounter
--- OUTSIDE RECORDS SUMMARY | 2025-09-03 13:48 | XMS_ITS | Encounter Summary ---
Author Organization [employer] ([place], [place], [place], [place], [place]) Address [address] [place] [address] Care Team Providers Care Tool Chaser Name Role Phone Unavailable Primary Care Provider Unavailabl e Encounter Details Date Type Department Care Team (Late st Contact Info) Description 06/03/[address] [facility] [place] Family Medicine [address] [place] [address] ProviderRikki MD [address] [place], [place] [phone] Social History Tobacco Use Types Packs/Day Years [...] further action required x1 Electronically signed by Gaicomo Azar Conversion Manufacturing Plant Controller Cerner at 01/28/2023 11:14 PM CDT documented in this encounter Plan of Treatment Not on file documented as of this encounter Visit Diagnoses Not on filedocumented in this encounter
--- OUTSIDE RECORDS SUMMARY | 2025-09-03 13:48 | XMS_ITS | Data Portability ---
Author Organization [employer] Address [address] [place] [address] Care Team Providers Care Telephonic Rn Name Role Phone SANGEETA BENOIT Primary Care Provider [phone] Assessment Encounter Date Assessment Date Assessment LastModified [...] 6 weeks once imaging has been completed. [email or web address] Not available 05/21/2024 11:00:40 07/02/2024 07/02/2024 Kassi [...] follow-up appointment in 6 weeks as well. [email or web address] Not available 07/02/2024 11:48:35 10/17/2024 10/17/2024 Kassi [...] headaches, consider further evaluation by headache specialist. [email or web address] Not available 10/17/2024 12:21:54 Plan of Treatment Reminders Order Date Submit Date Provider Last Modified By Organization Details Last Modified Time Details Appointments None recorded. Lab None recorded. Referral None recorded. Procedures None recorded. Surgeries None recorded. Imaging None recorded. Medication Orders cyclobenzap rine 10 mg tablet 2023 024 [facility], [address] [place] [address], [id number], 11:01:23 Patient TargetsNo targets recorded. Patient InstructionsNo instructions recorded. Reason for Referral None Reported. Results Created Date Observation Date Name Description Value Unit Range Abnormal Flag Note LastModifiedBy Organization Detail LastModifiedTime 06/12/2006/11/2024 MRI, lumba r spine , w/wo contr ast No observ ation record ed. [email or web address] Not Available 2023 11:20:48 08/22/2008/19/2024 MRI, cervi claribel spine , w/wo contr ast No observ ation record ed. Not Available 2024 16:06:42 Result Notes None recorded. Procedures Surgical History Date Name Laterality Status Provider Name and Address Organization Details Recorded Time [facility] 05/21/2024 10:17:19 section completed [facility] 05/21/2024 10:17:33 Appendectomy completed [facility] 05/21/2024 10:17:40 Cholecystectomy completed [facility] 05/21/2024 10:17:48 hysterectomy completed [facility] 05/21/2024 10:17:58 Gastric bypass for obesity completed [facility] 05/21/2024 10:18:08 Imaging Results None recorded. Procedure [...] Updated DateTime 10/17/2024 160.02 cm 33.7 kg/m2 78078.55 g 122/82 mm[Hg] [facility] 10/17/2024 09:17:07 Date Recorded Body height Body mass index (BMI) Body weight Systolic And Diastolic Provider Name and Address Organization Details Last Updated DateTime 05/21/2024 160.02 cm 33.7 kg/m2 14699.55 g 130/82 mm[Hg] [facility] 05/21/2024 10:25:23 Date Recorded Body height Body mass index (BMI) Body weight Systolic And Diastolic Provider Name and Address Organization Details Last Updated DateTime 07/02/2024 160.02 cm 33.7 kg/m2 52411.55 g 126/82 mm[Hg] [facility] 07/02/2024 11:21:39 Social History None recorded. Functional [...] ICD10 Code Diagnosis IMO Codes Diagnosis Note [id number] SKIP KAUFMAN PA-C [facility] [address] [place] [address] 05/21/2024 09:59:46 05/23/2024 14:19:21 Lumbar radiculopathy [id number] M54.16 [id number] SKIP KAUFMAN PA-C [facility] [address] [place] [address] 07/02/2024 10:12:30 07/07/2024 10:32:51 Lumbar radiculopathy [id number] M54.16 Low back pain [id number] M54.50 [id number] VÍCTOR WALKER MD [facility] [address] [place] [address] 10/17/2024 09:09:50 10/18/2024 05:47:25 Headache [id number] R51.9 Health Concerns Section Related Observation LastModified by Organization Detai ls LastModified Time None Recorded Concern Status LastModified by Organization Details LastModified Time None Recorded Advance Directives Directive None Recorded Payers Insurance Date Sequence Insurance Name Policy Number Policy Junior Covered Member ID Junior Member ID Guarantor Name 10/15/2024 1 [employer] (EPO) [id number] Kassi Claudio [id number] Kassi Claudio Notes Date Note Type [...] being on warfarin. SKIP KAUFMAN PA-C [address] [place], [address], [facility] 05/21/2024 11:01:32 4 text/html ROS as noted [...] to her appointment today. SKIP KAUFMAN PA-C [facility] [place], [address], [facility] 07/02/2024 11:49:01 5 text/html ROS as noted [...] massager seems to help. VÍCTOR WALKER MD [facility] [place], [address], [facility] 10/17/2024 12:23:13 OBGyn Episode No OBEpisode recorded.
--- OUTSIDE RECORDS SUMMARY | 2025-09-03 13:48 | XMS_ITS | Encounter Summary ---
Author Organization [employer] ([place], [place], [place], [place]) Address [address] [place] [address] Care Team Providers Care Casino Operations Supervisor Name Role Phone Unavailable Primary Care Provider Unavailabl e Encounter Details Date Type Department Care Team (Late st Contact Info) Description 06/11/2019 Transcribed Document [facility] [place] Family Medicine [address] [place] [address] ProviderRikki MD [address] [place], [place] [address] Social History Tobacco Use Types Packs/Day Years [...]
--- OUTSIDE RECORDS SUMMARY | 2025-09-03 13:48 | XMS_ITS | Encounter Summary ---
Author Organization [employer] ([place], [place], [place], [place]) Address [address] [place] [address] Care Team Providers Care Zmt Operator Name Role Phone Unavailable Primary Care Provider Unavailabl e Encounter Details Date Type Department Care Team (Late st Contact Info) Description 06/22/2021 Transcribed Document [facility] [place] Family Medicine [facility] [place] [address] ProviderRikki MD [address] [place] [address] [phone] Social History Tobacco Use Types Packs/Day Years [...] x1 Electronically signed by Giacomo Azar Conversion Electronic Plotting System Operator Cerner at 01/28/2023 11:13 PM CDT documented in this encounter Plan of Treatment Not on file documented as of this encounter Visit Diagnoses Not on filedocumented in this encounter
--- OUTSIDE RECORDS SUMMARY | 2025-09-03 13:48 | XMS_ITS | Encounter Summary ---
Author Organization [employer] ([place], [place], [place], [place], [place]) Address [address] [place] [address] Care Team Providers Care Meat And Seafood Manager Name Role Phone Unavailable Primary Care Provider Unavailabl e Encounter Details Date Type Department Care Team (Late st Contact Info) Description 06/22/2021 Transcribed Document [facility] [place] Family Medicine [facility] [place] [address] ProviderRikki MD [address] [place] [address] [phone] Social History Tobacco Use Types Packs/Day Years [...]
--- OUTSIDE RECORDS SUMMARY | 2025-09-03 13:48 | XMS_ITS | Encounter Summary ---
Author Organization [employer] ([place], [place], [place], [place], [place]) Address [address] [place] [address] Care Team Providers Care Seafood Clerk Name Role Phone Unavailable Primary Care Provider Unavailabl e Encounter Details Date Type Department Care Team (Late st Contact Info) Description 06/22/2021 Transcribed Document [facility] [place] Family Medicine [facility] [place] [address] ProviderRikki MD [address] [place] [address] [phone] Social History Tobacco Use Types Packs/Day Years [...] - 06/22/2021 12:18 AM CDT Patient: KASSI OKNG Age: 51 years Sex: Female : 1970 [...] had a heart cath done by her electromedical equipment technician in [place] in February, she did not have any [...] EDT Height Source Stated Height Entry Format [place] Height/Length, BENINESE (ft) 5 ft Height/Length BENINESE 3 Inch CLINICALHEIGHT 160.02 cm [place] Body Weight 52.02 kg Weight Source, ED Critical estimated dosing weight Weight Entry Format [place] Weight Persian lb 220 lb CLINICALWEIGHT 100 kg Body [...] Triage: ED C-SSRS: ED Clinical Reconciliation: ED agent: EKG: Normal Saline Flush: 10 mL, IV [...] % 30.8 % Lymph # 3.02 x10(3)/uL [place] % 5.3 % [place] # 0.52 K/uL Eos % 2.4 % [...]
--- OUTSIDE RECORDS SUMMARY | 2025-09-03 13:49 | XMS_ITS | Encounter Summary ---
Author Organization [employer] ([place], [place], [place], [place], [place]) Address [address] [place] [address] Care Team Providers Care Animal Technician Name Role Phone Unavailable Primary Care Provider Unavailabl e Encounter Details Date Type Department Care Team (Late st Contact Info) Description 06/03/2019 Transcribed Document [facility] [place] [facility] [place] [address] ProviderRikki MD [address] [place] [address] Social History Tobacco Use Types Packs/Day [...] Montoya MD - 06/03/2019 2:51 PM [place] [address] KASSI KONG :1970 Visit Time:06/03/2019 Your Visit Summary Your Care Team Admitting Physician - DRE POWER MARK, MD Attending Physician - MARIEL MCCRAY MD Primary Care Physician - ALVARADO STILES (REF), -[facility] Referring Physician - MARIEL MCCRAY MD [...] in the future. Where: [place] [address] [place] [address]- Allergies SUMAtriptan (Other Anaphylactic Shock, Other Anaphylactic [...] range between ( 0.0 and 7.0 ) [place] #: 0.44 K/uL -- Normal range between ( 0.16 and 1.00 ) Eos #: 0.28 x10(3)/uL -- Normal range between ( 0.00 and 0.80 ) [place] %: 5.2 % -- Normal range between [...] ) Urine Bilirubin Dipstick: Negative Urine Specific [place]: 1.021 -- Normal range between ( 1.005 [...] stand. This can reduce dizziness. ??? Take iylx-uuq-jalteat and prescription medicines only as told by [...] 10/01/2006 Document Revised: 03/08/2017 Document Reviewed: 06/14/2016 [employer] Interactive Patient Education ?? 2018 [employer] Head Injury, Adult There are many [...] Ask your health care provider for a lkjn-dj-tmcy plan for gradually returning to activities. ??? [...] your friends, family, a trusted colleague, and wire web worker about your injury, symptoms, and restrictions. Have them watch for any new or worsening problems. General instructions ??? Take cvms-csi-hknqhlt and prescription medicines only as told by [...] This is often called the RICE strategy. Sqcd-upm-yjzpebx anti-inflammatory medicines may also be recommended for [...] are sitting or lying down. ??? Take kmvm-zai-owntyut and prescription medicines only as told by [...] 07/11/2006 Document Revised: 02/08/2017 Document Reviewed: 02/16/2016 [employer] Interactive Patient Education ?? 2019 [employer] Concussion, Adult A concussion is a [...] are taking any medicines, including prescription medicines, ykgf-whi-nhezooi medicines, and natural remedies. Some medicines, such [...] returning to activities. General instructions ??? Take clkd-tli-dzzljpe and prescription medicines only as told by [...] Tell your teachers, school nurse, school counselor, transit coach operator, associate trainer, or wire web worker about your injury, symptoms, and restrictions. [...] 12/21/2004 Document Revised: 09/11/2017 Document Reviewed: 09/11/2017 [employer] Interactive Patient Education ?? 2019 [employer] Emergency Awareness and Preventative Care STROKE [...] Assistance with quitting is available by contacting 2-267-XKTW-NOW. This is a free resource providing counseling, [...] was given the opportunity to ask questions. Patient/Artificial Cherry Maker Name: Patient/Artificial Cherry Maker Signature: Relationship to Patient: Clinician/Hospital Artificial Cherry Maker Signature: Please Provide a Telephone Number Where You Can Be Reached: Is it Permissible To Leave a Message? Date: documented in this encounter Plan of Treatment Not on file documented as of this encounter Visit Diagnoses Not on filedocumented in this encounter
--- OUTSIDE RECORDS SUMMARY | 2025-09-03 13:49 | XMS_ITS | Encounter Summary ---
Author Organization [employer] ([place], [place], [place], [place], [place]) Address [address] [place] [address] Care Team Providers Care Electron Gun Inspector Name Role Phone Unavailable Primary Care Provider Unavailabl e Encounter Details Date Type Department Care Team (Late st Contact Info) Description 06/21/2021 Transcribed Document [facility] [place] Family Medicine [address] [place] [address] ProviderRikki MD [address] [place], [place] [phone] Social History Tobacco Use Types Packs/Day Years [...]
--- OUTSIDE RECORDS SUMMARY | 2025-09-03 13:49 | XMS_ITS | Encounter Summary ---
Author Organization [employer] ([place], [place], [place], [place], [place]) Address [address] [place] [address] Care Team Providers Care Sharepoint Application Developer Name Role Phone Unavailable Primary Care Provider Unavailabl e Encounter Details Date Type Department Care Team (Late st Contact Info) Description 06/21/2021 Transcribed Document [facility] [place] Family Medicine [facility] [address] ProviderRikki MD [address] [place] [address] [phone] Social History Tobacco Use Types Packs/Day Years [...] Communication Barrier : None Primary Language : Faroese Any Spiritual/Cultural Needs or Requests : No [...] EDT Electronically signed by Giacomo Azar Conversion Player Services Representative Cerner at 01/28/2023 10:52 PM CDT documented in this encounter Plan of Treatment Not on file documented as of this encounter Visit Diagnoses Not on filedocumented in this encounter
--- OUTSIDE RECORDS SUMMARY | 2025-09-03 13:49 | XMS_ITS | Encounter Summary ---
Author Organization [employer] ([place], [place], [place], [place], [place]) Address [address] [place] [address] Care Team Providers Care Stock Broker Supervisor Name Role Phone Unavailable Primary Care Provider Unavailabl e Encounter Details Date Type Department Care Team (Late st Contact Info) Description 06/21/2021 Transcribed Document [facility] [place] Family Medicine [facility] [place] [address] ProviderRikki MD [address] [place] [id number] Social History Tobacco Use Types Packs/Day Years [...] Historical ProviderMD - 06/21/2021 9:55 PM CDT [place] Suicide Severity Rating Scale (C-SSRS) Entered On: 06/21/2021 22:29 EDT Performed On: 06/21/2021 22:27 EDT by Aruna Garcia [place] Suicide Severity Rating Scale (C-SSRS) CSSRS Past [...]
--- OUTSIDE RECORDS SUMMARY | 2025-09-03 13:49 | XMS_ITS | Encounter Summary ---
Author Organization [employer] ([place], [place], [place], [place], [place]) Address [address] [place] [address] Care Team Providers Care Pipe Processor Name Role Phone Unavailable Primary Care Provider Unavailabl e Encounter Details Date Type Department Care Team (Late st Contact Info) Description 06/21/2021 Transcribed Document [facility] [place] Family Medicine [facility] [place] [address] ProviderRikki MD [address] [place] [address] [phone] Social History Tobacco Use Types Packs/Day Years [...] : 2 - Emergent Tracking Group : [facility] ED Jasmina Rao RN - 06/21/2021 22:09 [...] ; Reactions: hives, hives ; Created By: KAEVH Tirado; Reaction Status: Active ; Category: Drug [...] PNED ; Probability: 0 ; Diagnosis Code: [id number] ED Height and Weight Height Source : Stated Height Entry Format : [place] Height, Feet : 5 ft(Converted to: 152 cm, 60 Inch) Height, Inches : 3 Inch(Converted to: 0 ft 3 Inch, 7.62 cm) Clinical Height : 160.02 cm Weight Source, ED : Critical estimated dosing weight Weight Entry Format : [place] Weight, Pounds : 220 lb Clinical Dosing Weight : 100 kg Body Surface Area (BSA) : 2.02 m2 Body Mass Index : 39.1 kg/m2 (HI) [place] Body Weight (IBW) : 52.02 kg Jasmina Rao RN - 06/21/2021 22:09 EDT documented in this encounter Plan of Treatment Not on file documented as of this encounter Visit Diagnoses Not on filedocumented in this encounter
--- OUTSIDE RECORDS SUMMARY | 2025-09-03 13:50 | XMS_ITS | Encounter Summary ---
Author Organization [employer] ([place], [place], [place], [place], [place]) Address [address] [place] [address] Care Team Providers Care Camp Manager Name Role Phone Unavailable Primary Care Provider Unavailabl e Encounter Details Date Type Department Care Team (Late st Contact Info) Description 06/03/2019 Transcribed Document [facility] [place] [facility] [place] [address] ProviderRikki MD [address] [place] [address] [phone] Social History Tobacco Use Types Packs/Day Years [...] 06/03/2019 15:02 EDT Electronically signed by Interface, [facility] Conversion Paint Roller Covermaker Cerner at 01/28/2023 11:05 PM CDT documented in this encounter Plan of Treatment Not on file documented as of this encounter Visit Diagnoses Not on filedocumented in this encounter
--- OUTSIDE RECORDS SUMMARY | 2025-09-03 13:50 | XMS_ITS | Encounter Summary ---
Author Organization [employer] ([place], [place], [place], [place], [place]) Address [address] [place] [address] Care Team Providers Care Baby Doctor Name Role Phone Unavailable Primary Care Provider Unavailabl e Encounter Details Date Type Department Care Team (Late st Contact Info) Description 06/03/2019 Transcribed Document [facility] [place] Family Medicine [address] [place] [address] ProviderRikki MD [address] [place], [place] 306581 Social History Tobacco Use Types Packs/Day Years [...] EDT DCP GENERIC CODE Tracking Group : [facility] ED MARC GREENWOOD RN - [...] Recent Thoughts of Harming/Killing Others : No Machine Sorter Needed : No MARC GREENWOOD RN - [...] PNED ; Probability: 0 ; Diagnosis Code: [id number] ED Height and Weight Height Source : Stated Height Entry Format : [place] Height, Feet : 5 ft(Converted to: 152 cm, 60 Inch) Height, Inches : 3 Inch(Converted to: 0 ft 3 Inch, 7.62 cm) Clinical Height : 160.02 cm Weight Source, ED : Critical estimated dosing weight Weight Entry Format : [place] Weight, Pounds : 220 lb Clinical Dosing Weight : 100 kg Body Surface Area (BSA) : 2.02 m2 Body Mass Index : 39.1 kg/m2 (HI) [place] Body Weight (IBW) : 52.02 kg MARC [...]
--- OUTSIDE RECORDS SUMMARY | 2025-09-03 13:50 | XMS_ITS | Encounter Summary ---
Author Organization [employer] ([place], [place], [place], [place], [place]) Address [address] [place] [address] Care Team Providers Care Volunteer Recruiter Name Role Phone Unavailable Primary Care Provider Unavailabl e Encounter Details Date Type Department Care Team (Late st Contact Info) Description 06/03/2019 Transcribed Document [facility] [place] [facility] [address] ProviderRikki MD [address] [place] [address] [id number] Social History Tobacco Use Types Packs/Day Years [...] EDT Height Source Stated Height Entry Format Taney Height/Length, TURKISH (ft) 5 ft Height/Length TURKISH 3 Inch CLINICALHEIGHT 160.02 cm [place] Body Weight 52.02 kg Weight Source, ED Critical estimated dosing weight Weight Entry Format Taney Weight Portuguese lb 220 lb CLINICALWEIGHT 100 kg Body [...] Hand pain, wrist pain, fracture, sprain, contusion, [place], head injury, concussion,. Orders Include Previous Orders (Selected) Inpatient Orders Ordered EKG: Completed .Automated Differential: .Urinalysis Microscopic: CBC w/ Auto Diff: CMP Comprehensive Metabolic Panel: CR Hand Min 3 Vws RT: CT Head WO: Cardiac Monitoring: ED Adult Fall Risk Assessment: ED Adult Triage: ED Clinical Reconciliation: ED elderly companion: Normal Saline Flush: 10 mL, IV Push, [...] with insertion, Start Peripheral IV Inserted by: ENVILLE CHOE RN Peripheral IV Number of Attempts: [...] Color Yellow Urine Appearance Clear Urine Specific [place] 1.021 Urine pH Dipstick 7.5 Urine Leukocyte [...] % 30.2 % Lymph # 2.54 x10(3)/uL [place] % 5.2 % [place] # 0.44 K/uL Eos % 3.3 % [...] Fall Scale Risk Level 0-24 Low Risk Babb Fall Interventions Adequate lighting, Bed in low position, Call device within reach, Hourly comfort/safety rounds, Non-Slip footwear, Personal items within reach, Reinforced to call for assistance before getting out of bed, Room free of clutter/spills, Upper side-rails up, Wheels locked, Wires/Cords secured Fall Moderate to High Risk Interventions Patient room close to nurses station Communication Barrier None Primary Language Portuguese Information Obtained From Patient Smoking Status Refused [...] air Height Source Stated Height Entry Format Taney Height/Length, TURKISH (ft) 5 ft Height/Length TURKISH 3 Inch CLINICALHEIGHT 160.02 cm [place] Body Weight 52.02 kg Weight Source, ED Critical estimated dosing weight Weight Entry Format Taney Weight Portuguese lb 220 lb CLINICALWEIGHT 100 kg Body [...] Ambulate Tracking Acuity 3 - Urgent (Modified) Chief Of Planning Needed No Accompanied by Unaccompanied Mode of Arrival Ambulatory 06/03/2019 10:46 EDT Nurse Collect Order Detail 3.00 Nurse Collect Order Detail 3.00 . Radiology results: Radiology Results (Last 48 hours) [id number] -- 06/03/2019 10:45 CR Hand Min 3 [...] Adult, Syncope. Follow up with: ALVARADO STILES (REF)[facility] Within 2 to 3 days Patient [...]
--- OUTSIDE RECORDS SUMMARY | 2025-09-03 13:50 | XMS_ITS | Encounter Summary ---
Author Organization [employer] ([place], [place], [place], [place], [place]) Address [address] [place] [address] Care Team Providers Care Eyelet Machine Operator Name Role Phone Unavailable Primary Care Provider Unavailabl e Encounter Details Date Type Department Care Team (Late st Contact Info) Description 06/03/2019 Transcribed Document [facility] [place] [address] ProviderRikki MD [address] [place] [address] [phone] Social History Tobacco Use Types Packs/Day Years [...]
--- OUTSIDE RECORDS SUMMARY | 2025-09-03 13:50 | XMS_ITS | Encounter Summary ---
Author Organization [employer] ([place], [place], [place], [place], [place]) Address [address] [place] [address] Care Team Providers Care Ramp Agent Name Role Phone Unavailable Primary Care Provider Unavailabl e Encounter Details Date Type Department Care Team (Late st Contact Info) Description 06/03/2019 Transcribed Document [facility] [place] Family Medicine [place] [address] ProviderRikki MD [address] [place] [address] Social History Tobacco Use Types Packs/Day [...] Montoya MD - 06/03/2019 2:51 PM CDT [facility] [place] [address] KASSI KONG :1970 Visit Time:06/03/2019 Your Visit Summary Your Care Team Admitting Physician - DRE POWER MARK, MD Attending Physician - MARIEL MCCRAY MD Primary Care Physician - ALVARADO STILES (REF), -[facility] Referring Physician - MARIEL MCCRAY [...] in the future. Where: [place] [address]- Allergies SUMAtriptan (Other Anaphylactic Shock, Other Anaphylactic [...] range between ( 0.0 and 7.0 ) [place] #: 0.44 K/uL -- Normal range between ( 0.16 and 1.00 ) Eos #: 0.28 x10(3)/uL -- Normal range between ( 0.00 and 0.80 ) [place] %: 5.2 % -- Normal range between [...] ) Urine Bilirubin Dipstick: Negative Urine Specific [place]: 1.021 -- Normal range between ( 1.005 [...] stand. This can reduce dizziness. ??? Take kycc-yqk-htxwzob and prescription medicines only as told by [...] 10/01/2006 Document Revised: 03/08/2017 Document Reviewed: 06/14/2016 [employer] Patient Education ?? 2018 [employer] Head Injury, Adult There are many [...] Ask your health care provider for a ngdj-lm-ykuy plan for gradually returning to activities. ??? [...] your friends, family, a trusted colleague, and network engineer administrator about your injury, symptoms, and restrictions. Have them watch for any new or worsening problems. General instructions ??? Take zjis-kid-gqsnbyd and prescription medicines only as told by [...] This is often called the RICE strategy. Cjfe-yvx-itgxakb anti-inflammatory medicines may also be recommended for [...] are sitting or lying down. ??? Take hlrc-pvg-jjfacir and prescription medicines only as told by [...] 07/11/2006 Document Revised: 02/08/2017 Document Reviewed: 02/16/2016 [employer] Patient Education ?? 2019 [employer] Concussion, Adult A concussion is a [...] are taking any medicines, including prescription medicines, vbnt-bpb-rcqnpkx medicines, and natural remedies. Some medicines, such [...] returning to activities. General instructions ??? Take resy-duw-sjxehej and prescription medicines only as told by [...] your teachers, school nurse, school counselor, coach operator, care trainer, or network engineer administrator about your injury, symptoms, and restrictions. [...] 12/21/2004 Document Revised: 09/11/2017 Document Reviewed: 09/11/2017 [employer] Patient Education ?? 2019 [employer] Emergency Awareness and Preventative Care STROKE [...] Assistance with quitting is available by contacting 6-923-FFPL-NOW. This is a free resource providing counseling, [...] was given the opportunity to ask questions. Patient/Shale Processing Technician Name: Patient/Shale Processing Technician Signature: Relationship to Patient: Clinician/Hospital Shale Processing Technician Signature: Please Provide a Telephone Number Where You Can Be Reached: Is it Permissible To Leave a Message? Date: documented in this encounter Plan of Treatment Not on file documented as of this encounter Visit Diagnoses Not on filedocumented in this encounter
--- OUTSIDE RECORDS SUMMARY | 2025-09-03 13:50 | XMS_ITS | Encounter Summary ---
Author Organization [employer] ([place], [place], [place], [place], [place]) Address [address] [place] [address] Care Team Providers Care Canvas Repairer Name Role Phone Unavailable Primary Care Provider Unavailabl e Encounter Details Date Type Department Care Team (Late st Contact Info) Description 06/03/2019 Transcribed Document [facility] [place] Family Medicine [address] [place] [address] ProviderRikki MD [address] [place], [place] [phone] Social History Tobacco Use Types Packs/Day Years [...] - 06/03/2019 11:10 EDT Electronically signed by [facility], [facility] Conversion Business Services Director Cerner at 01/28/2023 10:51 PM CDT documented in this encounter Plan of Treatment Not on file documented as of this encounter Visit Diagnoses Not on filedocumented in this encounter
--- OUTSIDE RECORDS SUMMARY | 2025-09-03 13:50 | XMS_ITS | Encounter Summary ---
Author Organization [facility] Address [address] [place] [address] Care Team Providers Care Campus Wellness Coordinator Name Role Phone Valentin Daniel MD Primary Care Provider [phone] Reason for Referral * Consultation (Routine) - Authorized Specialty Diagnoses / Procedures Referred By Contac t Referred To Contact Neurology Diagnoses Left foot drop Mechanical problems with limbs Polyneuropathy Valentin Daniel MD [address] [place] [address] Phone: tel: fax: Referral ID Status Reason Start Date Expiration Date Visits Requested Visits Authorized [id number] Authorized Specialty Services Required 02/16/2025 08/18/2026 1 1 Encounter Details Date Type Department Care Team (Late st Contact Info) Description 02/16/2025 Community [facility] Community Practice [address] [place] [address] Valentin Daniel MD [address] [place] [address] Left foot drop (Primary Dx); Mechanical [...] [facility] [address], [address] [place] [address] Sim Tillman MD [address] [place] [address] 11/11/2025 12:50 PM EST Office Visit [facility] Medicine Specialties [address] [place] [address] Angela Todd APRN [address] [place] [address] Scheduled Referrals Name Type Priority [...] documented as of this encounter Care Teams Campus Wellness Coordinator Relationship Specialty Start Date End Date Valentin Daniel MD PCP - General 09/18/22 documented as of this encounter
--- OUTSIDE RECORDS SUMMARY | 2025-09-03 13:50 | XMS_ITS | Clinical Summary ---
Author Organization [facility] Address [address] [place] [address] Care Team Providers Care Airport Skilled Maintenance Supervisor Name Role Phone Provider, No Known Primary [...] 01/16/2022, 07/27/2021 Insurance COMMERCIAL [employer] Care Teams Airport Skilled Maintenance Supervisor Relationship Specialty Start Date End Date Provider, [place] [address] PCP - General 08/09/23
--- OUTSIDE RECORDS SUMMARY | 2025-09-03 13:51 | XMS_ITS | Clinical Summary ---
Author Organization [facility] Address [address] [place] [address] Care Team Providers Care Director Home Health Name Role Phone Valentin Daniel MD Primary Care Provider [phone] Allergies Active Allergy Reactions Criticality Noted Date [...] cream 01/21/20 21 Active ergocalciferol 1.25 MG (02159 UT) capsule TAKE ONE CAPSULE BY MOUTH EVERY WEEK DIRECTED 03/01/20 21 Active HYDROcodone-acetam inophen ([place]) 10-325 MG tablet TAKE ONE TABLET BY [...] MG tablet 01/28/20 24 Active nystatin (Mycostatin) 577275 UNIT/GM powder 02/01/20 24 Active omeprazole (PriLOSEC) [...] Consult [facility] [address] [place] [address] Sim Tillman MD [address] [place] [address] 11/11/2025 12:50 PM EST Office Visit [facility] Medicine Specialties [address], [address] [place] [address] Angela Todd APRN [address] [place] [address] Health Maintenance Due Date Last [...] (2 - Td or Tdap) 06/20/2021 06/20/2011 [id number] Vaccine ( season) 2025 07/14/2021, 11/17/2020, 10/28/2020 [...] MRSA 04/20/2021 04/20/2021 Insurance AETNA Care Teams Director Home Health Relationship Specialty Start Date End Date Valentin Daniel MD PCP - General 09/18/22
--- OUTSIDE RECORDS SUMMARY | 2025-09-03 13:51 | XMS_ITS | Encounter Summary ---
Author Organization [facility] Address [address] [place] [address] Care Team Providers Care Medical Oncology Physician Name Role Phone Valentin Daniel MD Primary Care Provider [phone] Encounter Details Date Type Department Care Team (Latest Contact Info) Description 02/05/2025 Community [facility] Community Practice [address] [place] [address] Valentin Daniel MD [address] [place] [address] Polyneuropathy (Primary Dx); Foot drop, left foot [...] Consult [place] [facility] [address] [place] [address] Sim Tillman MD [address] [place] [address] 11/11/2025 12:50 PM EST Office Visit [facility] [address] [place] [address] Angela Todd, TOBACCO PRIMER MACHINE OPERATOR [address] [facility] [address] [place] [address] documented as of this encounter [...] documented as of this encounter Care Teams Medical Oncology Physician Relationship Specialty Start Date End Date Valentin Daniel MD PCP - General 09/18/22 documented as of this encounter
[2025-09-03 14:19] LABS: Alanine Aminotransferase 24 U/L (12-78); Albumin Level 4.3 g/dl (3.5-5.0); Albumin/Globulin Ratio 1.5 (1.1-1.8); Alkaline Phosphatase 108 U/L (38-126); Anion Gap 10.8 mEq/L (5-15); Aspartate Amino Transferase 39 U/L (14-36); Bilirubin,Total 0.2 mg/dl (0.2-1.3); Blood Urea Nitrogen 8 mg/dl (7-17); Calcium 9.1 mg/dl (8.4-10.2); Carbon Dioxide 32 mmol/L (22.0-30.0); Chloride 98 mmol/L (98-107); Creatinine,Serum 0.60 mg/dl (0.52-1.04); Estimated Glomerular Filt Rate 104 ml/min (>60); GFR (African American) 126 ML/MIN (>60); Globulin 2.8 g/dL (1.3-3.2); Glucose 81 mg/dl (74-100); Potassium 3.8 mmoL/L (3.5-5.1); Sodium 137 mmol/L (136-145); Total Protein,Serum 7.1 g/dl (6.3-8.2)
== END 2025-09-03 23:59 | disposition home or self-care (01) ==
LOC: LAB 12:42
PROVIDERS: PCP Family Medicine; Visit Provider Obstetrics & Gynecology
DX: M54.12 Radiculopathy, cervical region (principal); Z79.01 Long term (current) use of anticoagulants; N95.1 Menopausal and female climacteric states
CPT/HCPCS: 36415; 80053

== ENCOUNTER 2025-09-07 07:41 | Outpatient (CLI) | payer OTHER, SELFPAY ==
--- OUTSIDE RECORDS SUMMARY | 2025-09-07 07:43 | XMS_ITS | Encounter Summary ---
Author Organization [employer] ([place], [place], [place], [place], [place]) Address [address] [place] [address] Care Team Providers Care Sephora Operations Consultant Name Role Phone Unavailable Primary Care Provider Unavailabl e Encounter Details Date Type Department Care Team (Late st Contact Info) Description 06/03/2019 Transcribed Document [facility] [place] Family Medicine [address] [place] [address] ProviderRikki MD [address] [place], [place] 355501 Social History Tobacco Use Types Packs/Day Years [...] Communication Barrier : None Primary Language : Filipino Any Spiritual/Cultural Needs or Requests : No [...] 11:10 EDT Electronically signed by [facility], [facility] Conversion Silk Presser Cerner at 01/28/2023 10:51 PM CDT documented in this encounter Plan of Treatment Not on file documented as of this encounter Visit Diagnoses Not on filedocumented in this encounter
--- OUTSIDE RECORDS SUMMARY | 2025-09-07 07:43 | XMS_ITS | Clinical Summary ---
[facility] Address [address] [place] [address] Care Team Providers Care Clinical Laboratory Scientist Name Role Phone Provider, No Known Primary [...] 01/16/2022, 07/27/2021 Insurance COMMERCIAL [employer] Care Teams Clinical Laboratory Scientist Relationship Specialty Start Date End Date Provider, [place] [address] PCP - General 08/09/23
--- OUTSIDE RECORDS SUMMARY | 2025-09-07 07:43 | XMS_ITS | Encounter Summary ---
Author Organization [facility] Address [address] [place] [address] Care Team Providers Care Snuff Blender Name Role Phone Valentin Daniel MD Primary Care Provider [phone] Reason for Referral * Consultation (Routine) - Authorized Specialty Diagnoses / Procedures Referred By Contac t Referred To Contact Neurology Diagnoses Left foot drop Mechanical problems with limbs Polyneuropathy Valentin Daniel MD [address] [place] [address] Phone: tel: fax: Referral ID Status Reason Start Date Expiration Date Visits Requested Visits Authorized [id number] Authorized Specialty Services Required 02/16/2025 08/18/2026 1 1 Encounter Details Date Type Department Care Team (Late st Contact Info) Description 02/16/2025 Community [facility] Community Practice [address] [place] [address] Valentin Daniel MD [address] [place] [address] Left foot drop (Primary Dx); Mechanical [...] [facility] [address] [place] [address] Sim Tillman MD [address] [place] [address] 11/11/2025 12:50 PM EST Office Visit [facility] Medicine Specialties [address], [address] [place] [address] Angela Todd APRN [address] [place] [address] Scheduled Referrals Name Type Priority [...] documented as of this encounter Care Teams Snuff Blender Relationship Specialty Start Date End Date Valentin Daniel MD PCP - General 09/18/22 documented as of this encounter
--- OUTSIDE RECORDS SUMMARY | 2025-09-07 07:43 | XMS_ITS | Encounter Summary ---
Author Organization [employer] ([place], [place], [place], [place], [place]) Address [address] [place] [address] Care Team Providers Care Cage Unloader Name Role Phone Unavailable Primary Care Provider Unavailabl e Encounter Details Date Type Department Care Team (Late st Contact Info) Description 06/22/2021 Transcribed Document [facility] [place] [facility] [place] [address] ProviderRikki MD [address] [place] [address] [phone] Social History Tobacco Use Types Packs/Day Years [...] Patient Prescriptions Given to Patient : No Aurna Garcia - 06/22/2021 2:09 EDT documented in this encounter Plan of Treatment Not on file documented as of this encounter Visit Diagnoses Not on filedocumented in this encounter
--- OUTSIDE RECORDS SUMMARY | 2025-09-07 07:43 | XMS_ITS | Encounter Summary ---
Author Organization [employer] ([place], [place], [place], [place], [place]) Address [address] [place] [address] Care Team Providers Care Freight Solicitor Name Role Phone Unavailable Primary Care Provider Unavailabl e Encounter Details Date Type Department Care Team (Late st Contact Info) Description 06/03/2019 Transcribed Document [facility] [place] Family Medicine [facility] [place] [address] ProviderRikki MD [address] [place] [phone] Social History Tobacco Use Types Packs/Day Years [...] EDT Height Source Stated Height Entry Format [place] Height/Length, ARMENIAN (ft) 5 ft Height/Length ARMENIAN 3 Inch CLINICALHEIGHT 160.02 cm [place] Body Weight 52.02 kg Weight Source, ED Critical estimated dosing weight Weight Entry Format [place] Weight Azerbaijani lb 220 lb CLINICALWEIGHT 100 kg Body [...] Hand pain, wrist pain, fracture, sprain, contusion, [place], head injury, concussion,. Orders Include Previous Orders (Selected) Inpatient Orders Ordered EKG: Completed .Automated Differential: .Urinalysis Microscopic: CBC w/ Auto Diff: CMP Comprehensive Metabolic Panel: CR Hand Min 3 Vws RT: CT Head WO: Cardiac Monitoring: ED Adult Fall Risk Assessment: ED Adult Triage: ED Clinical Reconciliation: ED train control technician: Normal Saline Flush: 10 mL, IV [...] Color Yellow Urine Appearance Clear Urine Specific [place] 1.021 Urine pH Dipstick 7.5 Urine Leukocyte [...] % 30.2 % Lymph # 2.54 x10(3)/uL [place] % 5.2 % [place] # 0.44 K/uL Eos % 3.3 % [...] Fall Scale Risk Level 0-24 Low Risk Walker Fall Interventions Adequate lighting, Bed in low position, Call device within reach, Hourly comfort/safety rounds, Non-Slip footwear, Personal items within reach, Reinforced to call for assistance before getting out of bed, Room free of clutter/spills, Upper side-rails up, Wheels locked, Wires/Cords secured Fall Moderate to High Risk Interventions Patient room close to nurses station Communication Barrier None Primary Language Azerbaijani Information Obtained From Patient Smoking Status Refused [...] air Height Source Stated Height Entry Format [place] Height/Length, ARMENIAN (ft) 5 ft Height/Length ARMENIAN 3 Inch CLINICALHEIGHT 160.02 cm [place] Body Weight 52.02 kg Weight Source, ED Critical estimated dosing weight Weight Entry Format [place] Weight Azerbaijani lb 220 lb CLINICALWEIGHT 100 kg Body [...] Ambulate Tracking Acuity 3 - Urgent (Modified) Electrolytic De Scaler Needed No Accompanied by Unaccompanied Mode of Arrival Ambulatory 06/03/2019 10:46 EDT Nurse Collect Order Detail 3.00 Nurse Collect Order Detail 3.00 . Radiology results: Radiology Results (Last 48 hours) [id number] -- 06/03/2019 10:45 CR Hand Min 3 [...] Adult, Syncope. Follow up with: ALVARADO STILES (REF)MD-[facility] Within 2 to 3 days Patient states??Dr. [...] Regarding prescription, Patient indicated understanding of instructions. Electronically signed by Giacomo Azar Conversion Furnace Charging Machine Operator Cerner at 01/28/2023 11:03 PM CDT documented in this encounter Plan of Treatment Not on file documented as of this encounter Visit Diagnoses Not on filedocumented in this encounter
--- OUTSIDE RECORDS SUMMARY | 2025-09-07 07:43 | XMS_ITS | Encounter Summary ---
Author Organization [email or web address] ([place], [place], [place], [place], [place]) Address [address] [place] [address] Care Team Providers Care Manager Of Administration Name Role Phone Unavailable Primary Care Provider Unavailabl e Encounter Details Date Type Department Care Team (Late st Contact Info) Description 06/21/2021 Transcribed Document [facility] [place] Family Medicine [facility] [place] [address] ProviderRikki MD [address] [place] [phone] Social History Tobacco Use Types Packs/Day Years [...] Communication Barrier : None Primary Language : Mongolian Any Spiritual/Cultural Needs or Requests : No [...]
--- OUTSIDE RECORDS SUMMARY | 2025-09-07 07:43 | XMS_ITS | Encounter Summary ---
Author Organization [employer] ([place], [place], [place], [place], [place]) Address [address] [place] [address] Care Team Providers Care Otr Company Driver Name Role Phone Unavailable Primary Care Provider Unavailabl e Encounter Details Date Type Department Care Team (Late st Contact Info) Description 06/03/2019 Transcribed Document [facility] [place] [facility] [place] [address] ProviderRikki MD [address] [place] [address] [phone] Social History Tobacco Use Types Packs/Day Years [...]
--- OUTSIDE RECORDS SUMMARY | 2025-09-07 07:43 | XMS_ITS | Encounter Summary ---
Author Organization [employer] ([place], [place], [place], [place], [place]) Address [address] [place] [address] Care Team Providers Care Antenna Machine Operator Name Role Phone Unavailable Primary Care Provider Unavailabl e Encounter Details Date Type Department Care Team (Late st Contact Info) Description 06/21/2021 Transcribed Document [place] Family Medicine [address] [place] [address] ProviderRikki MD [address] [place], [place] 375291 Social History Tobacco Use Types Packs/Day Years [...]
--- OUTSIDE RECORDS SUMMARY | 2025-09-07 07:43 | XMS_ITS | Encounter Summary ---
Author Organization [facility] Address [address] [place] [address] Care Team Providers Care Aircraft Structural Repair Mechanic Name Role Phone Valentin Daniel MD Primary Care Provider Encounter Details Date Type Department Care Team (Late st Contact Info) Description 05/11/2025 Results Follow-Up [facility] Medicine Specialties [address] [place] [address] Angela Todd, BONDING SUPERVISOR [address] [place] [address] Social History Tobacco Use Types [...] [facility] [address] [place] [address] Sim Tillman MD [address] [place] [address] 11/11/2025 12:50 PM EST Office Visit [facility] Medicine Specialties [address] [place] [address] Angela Todd APRN [address] [place] [address] documented as of this encounter [...] documented as of this encounter Care Teams Aircraft Structural Repair Mechanic Relationship Specialty Start Date End Date Valentin Daniel MD PCP - General 09/18/22 documented as of this encounter
--- OUTSIDE RECORDS SUMMARY | 2025-09-07 07:43 | XMS_ITS | Encounter Summary ---
Author Organization Healthcare Address [address] [place] [address] Care Team Providers Care Regulatory Consultant Name Role Phone Valentin Daniel MD Primary Care Provider [phone] Encounter Details Date Type Department Care Team (Latest Contact Info) Description 02/05/2025 Community [facility] [address] [place] [address] Valentin Daniel MD [address] [place] [address] Polyneuropathy (Primary Dx); Foot drop, left foot [...] Consult [place] [facility] [address], [address]st [place] [address] Sim Tillman MD [address] [place] [address] 11/11/2025 12:50 PM EST Office Visit [facility] [address] [place] [address] Angela Todd, ETIOLOGY TEACHER [address] [facility] [address] [place] [address] documented as of this encounter [...] documented as of this encounter Care Teams Regulatory Consultant Relationship Specialty Start Date End Date Valentin Daniel MD PCP - General 09/18/22 documented as of this encounter
--- OUTSIDE RECORDS SUMMARY | 2025-09-07 07:43 | XMS_ITS | Clinical Summary ---
Author Organization [employer] ([place], [place], [place], [place], [place]) Address [address] [place] [address] Care Team Providers Care Bar Tacker Sewing Machine Name Role Phone Unavailable Primary Care [...]
--- OUTSIDE RECORDS SUMMARY | 2025-09-07 07:43 | XMS_ITS | Encounter Summary ---
Author Organization [employer] ([place], [place], [place], [place], [place]) Address [address] [place] [address] Care Team Providers Care Store Consultant Name Role Phone Unavailable Primary Care Provider Unavailabl e Encounter Details Date Type Department Care Team (Late st Contact Info) Description 06/21/2021 Transcribed Document [facility] [place] Medicine [facility]ly [facility] [address] ProviderRikki MD [address] [place] [address] [id number] Social History Tobacco Use Types Packs/Day Years [...] : 2 - Emergent Tracking Group : [facility] ED Jasmina Rao RN - [...] PNED ; Probability: 0 ; Diagnosis Code: [id number] ED Height and Weight Height Source : Stated Height Entry Format : [place] Height, Feet : 5 ft(Converted to: 152 cm, 60 Inch) Height, Inches : 3 Inch(Converted to: 0 ft 3 Inch, 7.62 cm) Clinical Height : 160.02 cm Weight Source, ED : Critical estimated dosing weight Weight Entry Format : [place] Weight, Pounds : 220 lb Clinical Dosing Weight : 100 kg Body Surface Area (BSA) : 2.02 m2 Body Mass Index : 39.1 kg/m2 (HI) Steele Body Weight (IBW) : 52.02 kg Jasmina Rao RN - 06/21/2021 22:09 EDT documented in this encounter Plan of Treatment Not on file documented as of this encounter Visit Diagnoses Not on filedocumented in this encounter
--- OUTSIDE RECORDS SUMMARY | 2025-09-07 07:43 | XMS_ITS | Encounter Summary ---
Author Organization [employer] ([place], [place], [place], [place], [place]) Address [address] [place] [address] Care Team Providers Care Paperhanger Assistant Name Role Phone Unavailable Primary Care Provider Unavailabl e Encounter Details Date Type Department Care Team (Late st Contact Info) Description 06/03/2019 Transcribed Document [facility] [place] [facility] [place] [address] ProviderRikki MD [address] [place] [address] Social History Tobacco Use Types Packs/Day [...] - 06/03/2019 2:51 PM CDT [facility] [place] [address] KASSI KONG :1970 Visit Time:06/03/2019 Your Visit Summary Your Care Team Admitting Physician - DRE POWER MARK, MD Attending Physician - MARIEL MCCRAY MD Primary Care Physician - ALVARADO STILES (REF), -[facility] Referring Physician - MARIEL MCCRAY MD [...] in the future. Where: [place] [address]- Allergies SUMAtriptan (Other Anaphylactic Shock, Other Anaphylactic [...] range between ( 0.0 and 7.0 ) [place] #: 0.44 K/uL -- Normal range between ( 0.16 and 1.00 ) Eos #: 0.28 x10(3)/uL -- Normal range between ( 0.00 and 0.80 ) [place] %: 5.2 % -- Normal range between [...] ) Urine Bilirubin Dipstick: Negative Urine Specific [place]: 1.021 -- Normal range between ( 1.005 [...] stand. This can reduce dizziness. ??? Take miwo-pdw-tvrmqkr and prescription medicines only as told by [...] 10/01/2006 Document Revised: 03/08/2017 Document Reviewed: 06/14/2016 [employer] Patient Education ?? 2018 [employer] Head Injury, Adult There are many [...] Ask your health care provider for a jpui-ix-kybn plan for gradually returning to activities. ??? [...] your friends, family, a trusted colleague, and aircraft worker about your injury, symptoms, and restrictions. Have them watch for any new or worsening problems. General instructions ??? Take zddv-cbb-bdeawgg and prescription medicines only as told by [...] This is often called the RICE strategy. Fyqm-veo-kwoyypx anti-inflammatory medicines may also be recommended for [...] are sitting or lying down. ??? Take iysn-wad-ajbwgwr and prescription medicines only as told by [...] 07/11/2006 Document Revised: 02/08/2017 Document Reviewed: 02/16/2016 [employer] Patient Education ?? 2019 [employer] Concussion, Adult A concussion is a [...] are taking any medicines, including prescription medicines, rwmx-wzy-iuzdrkn medicines, and natural remedies. Some medicines, such [...] returning to activities. General instructions ??? Take vhlo-rsh-jmxtjzq and prescription medicines only as told by [...] Tell your teachers, school nurse, school counselor, lacrosse coach, boxing trainer, or aircraft worker about your injury, symptoms, and restrictions. [...] 12/21/2004 Document Revised: 09/11/2017 Document Reviewed: 09/11/2017 [employer] Patient Education ?? 2019 [employer] Emergency Awareness and Preventative Care STROKE [...] Assistance with quitting is available by contacting 4-821-SEXO-NOW. This is a free resource providing counseling, [...] was given the opportunity to ask questions. Patient/Livestock Nutritionist Name: Patient/Livestock Nutritionist Signature: Relationship to Patient: Clinician/Hospital Livestock Nutritionist Signature: Please Provide a Telephone Number Where You Can Be Reached: Is it Permissible To Leave a Message? Date: documented in this encounter Plan of Treatment Not on file documented as of this encounter Visit Diagnoses Not on filedocumented in this encounter
--- OUTSIDE RECORDS SUMMARY | 2025-09-07 07:43 | XMS_ITS | Encounter Summary ---
Author Organization [employer] ([place], [place], [place], [place], [place]) Address [address] [place] [address] Care Team Providers Care Sales Agent Food Vending Service Name Role Phone Unavailable Primary Care Provider Unavailabl e Encounter Details Date Type Department Care Team (Late st Contact Info) Description 06/03/2019 Transcribed Document [facility] [place] [address] [place] [address] ProviderRikki MD [address] [place] [address] [phone] Social History Tobacco Use Types Packs/Day Years [...]
--- OUTSIDE RECORDS SUMMARY | 2025-09-07 07:43 | XMS_ITS | Clinical Summary ---
Author Organization [facility] Address [address] [place] [address] Care Team Providers Care Tipple Tender Name Role Phone Valentin Daniel MD Primary Care Provider [phone] Allergies Active Allergy Reactions Criticality Noted Date [...] cream 01/21/20 21 Active ergocalciferol 1.25 MG (74717 UT) capsule TAKE ONE CAPSULE BY MOUTH EVERY WEEK DIRECTED 03/01/20 21 Active HYDROcodone-acetam inophen ([place]) 10-325 MG tablet TAKE ONE TABLET BY [...] MG tablet 01/28/20 24 Active nystatin (Mycostatin) 084600 UNIT/GM powder 02/01/20 24 Active omeprazole (PriLOSEC) [...] [facility] [address], [address]st [place] [address] Sim Tillman MD [address] [place] [address] 11/11/2025 12:50 PM EST Office [facility] [address], [address] [place] [address] Angela Todd APRN [address] [place] [address] Health Maintenance Due Date Last [...] (2 - Td or Tdap) 06/20/2021 06/20/2011 [id number] Vaccine ( season) 2025 07/14/2021, 11/17/2020, 10/28/2020 [...] MRSA 04/20/2021 04/20/2021 Insurance [employer] Care Teams Tipple Tender Relationship Specialty Start Date End Date Valentin Daniel MD PCP - General 09/18/22
--- OUTSIDE RECORDS SUMMARY | 2025-09-07 07:43 | XMS_ITS | Encounter Summary ---
Author Organization [employer] ([place], [place], [place], [place], [place]) Address [address] [place] [address] Care Team Providers Care Orthotist Prosthetist Name Role Phone Unavailable Primary Care Provider Unavailabl e Encounter Details Date Type Department Care Team (Late st Contact Info) Description 06/21/2021 Transcribed Document [facility] [place] [facility] [place] [address] ProviderRikki MD [address] [place] [address] [id number] Social History Tobacco Use Types Packs/Day Years [...] Historical ProviderMD - 06/21/2021 9:55 PM CDT Richardson Suicide Severity Rating Scale (C-SSRS) Entered On: 06/21/2021 22:29 EDT Performed On: 06/21/2021 22:27 EDT by Aruna Garcia Richardson Suicide Severity Rating Scale (C-SSRS) CSSRS Past [...]
--- OUTSIDE RECORDS SUMMARY | 2025-09-07 07:43 | XMS_ITS | Encounter Summary ---
Author Organization [employer] ([place], [place], [place], [place], [place]) Address [address] [place] [address] Care Team Providers Care Food Products Tester Name Role Phone Unavailable Primary Care Provider Unavailabl e Encounter Details Date Type Department Care Team (Late st Contact Info) Description 06/11/2019 Transcribed Document [facility] [place] Family Medicine [address] [place] [address] ProviderRikki MD [address] [place], [place] 418121 Social History Tobacco Use Types Packs/Day Years [...]
--- OUTSIDE RECORDS SUMMARY | 2025-09-07 07:43 | XMS_ITS | Referral Summary ---
Author Organization [employer] ([place], [place], [place], [place], [place]) Address [address] [place] [address] Care Team Providers Care Proof Machine Operator Name Role Phone Unavailable Primary [...]
--- OUTSIDE RECORDS SUMMARY | 2025-09-07 07:43 | XMS_ITS | Data Portability ---
Author Organization [employer] [facility] [place] [facility] Address [address] [facility] [address] [place] [address] Care Team Providers Care Boardinghouse Keeper Name Role Phone SANGEETA BENOIT Primary Care [...] 6 weeks once imaging has been completed. [email or web address] Not available 05/21/2024 11:00:40 07/02/2024 07/02/2024 Kassi [...] the patient to obtain a disc from [facility] and bring the disc to us. Once we have the disc, I will have Dr. Walker review the imaging and contact the patient. I have scheduled her for a follow-up appointment in 6 weeks as well. [email or web address] Not available 07/02/2024 11:48:35 10/17/2024 10/17/2024 Kassi [...] headaches, consider further evaluation by headache specialist. [email or web address] Not available 10/17/2024 12:21:54 Plan of Treatment Reminders Order Date Submit Date Provider Last Modified By Organization Details Last Modified Time Details Appointments None recorded. Lab None recorded. Referral None recorded. Procedures None recorded. Surgeries None recorded. Imaging None recorded. Medication Orders cyclobenzap rine 10 mg tablet 2023 024 [facility] [address] [place] [address], [id number], 11:01:23 Patient TargetsNo targets recorded. Patient InstructionsNo instructions recorded. Reason for Referral None Reported. Results Created Date Observation Date Name Description Value Unit Range Abnormal Flag Note LastModifiedBy Organization Detail LastModifiedTime 06/12/2006/11/2024 MRI, lumba r spine , w/wo contr ast No observ ation record ed. [email or web address] Not Available 2023 11:20:48 08/22/2008/19/2024 MRI, cervi claribel spine , w/wo contr ast No observ ation record ed. [email or web address] Not Available 2024 16:06:42 Result Notes None recorded. Procedures Surgical History Date Name Laterality Status Provider Name and Address Organization Details Recorded Time [facility] 05/21/2024 10:17:19 section completed [facility] 05/21/2024 10:17:33 Appendectomy completed [facility] 05/21/2024 10:17:40 Cholecystectomy completed [facility] 05/21/2024 10:17:48 hysterectomy completed [facility] 05/21/2024 10:17:58 Gastric bypass for obesity completed [facility] 05/21/2024 10:18:08 Imaging Results None recorded. [...] Updated DateTime 10/17/2024 160.02 cm 33.7 kg/m2 90505.55 g 122/82 mm[Hg] [facility] 10/17/2024 09:17:07 Date Recorded Body height Body mass index (BMI) Body weight Systolic And Diastolic Provider Name and Address Organization Details Last Updated DateTime 05/21/2024 160.02 cm 33.7 kg/m2 80271.55 g 130/82 mm[Hg] [facility] 05/21/2024 10:25:23 Date Recorded Body height Body mass index (BMI) Body weight Systolic And Diastolic Provider Name and Address Organization Details Last Updated DateTime 07/02/2024 160.02 cm 33.7 kg/m2 35361.55 g 126/82 mm[Hg] [facility] 07/02/2024 11:21:39 Social History None recorded. [...] ICD10 Code Diagnosis IMO Codes Diagnosis Note [id number] SKIP KAUFMAN PA-C [facility] [address] [place] [address] 05/21/2024 09:59:46 05/23/2024 14:19:21 Lumbar radiculopathy [id number] M54.16 [id number] SKIP KAUFMAN PA-C [facility] [address] [place] [address] 07/02/2024 10:12:30 07/07/2024 10:32:51 Lumbar radiculopathy 953167696 M54.16 Low back pain 303641836 M54.50 [id number] VÍCTOR WALKER MD [facility] [address] [place] [address] 10/17/2024 09:09:50 10/18/2024 05:47:25 Headache 34919529 R51.9 Health Concerns Section Related Observation LastModified by Organization Detai ls LastModified Time None Recorded Concern Status LastModified by Organization Details LastModified Time None Recorded Advance Directives Directive None Recorded Payers Insurance Date Sequence Insurance Name Policy Number Policy Junior Covered Member ID Junior Member ID Guarantor Name 10/15/2024 1 [employer] (EPO) [id number] Kassi Claudio [id number] Kassi Claudio Notes Date Note Type [...] being on warfarin. SKIP KAUFMAN PA-C [address] [place], [address], [facility] 05/21/2024 11:01:32 4 text/html ROS as [...] resolved. She had her MRI completed at [facility] on 06/11/2024 but did not obtain a disc with the MRI images to bring to her appointment today. SKIP KAUFMAN PA-C [facility] [place], [address], [facility] 07/02/2024 11:49:01 5 text/html ROS as [...] massager seems to help. VÍCTOR WALKER MD [facility] [place], [address], [facility] 10/17/2024 12:23:13 OBGyn Episode No OBEpisode recorded.
--- OUTSIDE RECORDS SUMMARY | 2025-09-07 07:43 | XMS_ITS | Encounter Summary ---
Author Organization [employer] ([place], [place], [place], [place], [place]) Address [address] [place] [address] Care Team Providers Care Bobbin Cleaner Hand Name Role Phone Unavailable Primary Care Provider Unavailabl e Encounter Details Date Type Department Care Team (Late st Contact Info) Description 06/03/2019 Transcribed Document [facility] [place] [address] ProviderRikki MD [address] [place] [address] [phone] Social History Tobacco Use Types Packs/Day Years [...] 06/03/2019 15:02 EDT Electronically signed by Interface, [facility] Conversion Physician/Ophthalmologist Cerner at 01/28/2023 11:05 PM CDT documented in this encounter Plan of Treatment Not on file documented as of this encounter Visit Diagnoses Not on filedocumented in this encounter
--- OUTSIDE RECORDS SUMMARY | 2025-09-07 07:43 | XMS_ITS | Encounter Summary ---
Author Organization [employer] ([place], [place], [place], [place], [place]) Address [address] [place] [address] Care Team Providers Care Plant And Maintenance Technician Name Role Phone Unavailable Primary Care Provider Unavailabl e Encounter Details Date Type Department Care Team (Late st Contact Info) Description 06/22/2021 Transcribed Document [facility] [place] [facility] [place] [address] ProviderRikki MD [address] [place] [phone] Social History Tobacco Use Types Packs/Day Years [...]
--- OUTSIDE RECORDS SUMMARY | 2025-09-07 07:43 | XMS_ITS | Encounter Summary ---
Author Organization [employer] ([place], [place], [place], [place], [place]) Address [address] [place] [address] Care Team Providers Care Electrician Assistant Name Role Phone Unavailable Primary Care Provider Unavailabl e Encounter Details Date Type Department Care Team (Late st Contact Info) Description 06/22/2021 Transcribed Document [facility] [place] Family Medicine [facility] [place] [address] ProviderRikki MD [address] [place] [address] [phone] Social History Tobacco Use Types Packs/Day Years [...] had a heart cath done by her instrumentation tech in [place] in February, she did not have any [...] EDT Height Source Stated Height Entry Format [place] Height/Length, GREEK (ft) 5 ft Height/Length GREEK 3 Inch CLINICALHEIGHT 160.02 cm [place] Body Weight 52.02 kg Weight Source, ED Critical estimated dosing weight Weight Entry Format [place] Weight Armenian lb 220 lb CLINICALWEIGHT 100 kg Body [...] Triage: ED C-SSRS: ED Clinical Reconciliation: ED carpet cleaning technician: EKG: Normal Saline Flush: 10 mL, [...] % 30.8 % Lymph # 3.02 x10(3)/uL [place] % 5.3 % [place] # 0.52 K/uL Eos % 2.4 % [...]
--- OUTSIDE RECORDS SUMMARY | 2025-09-07 07:43 | XMS_ITS | Encounter Summary ---
Author Organization [employer] ([place], [place], [place], [place], [place]) Address [address] [place] [address] Care Team Providers Care System Consultant Name Role Phone Unavailable Primary Care Provider Unavailabl e Encounter Details Date Type Department Care Team (Late st Contact Info) Description 06/03/2019 Transcribed Document [facility] [place] [facility] [place] [address] ProviderRikki MD [address] [place] [address] Social History Tobacco Use Types Packs/Day [...] Montoya MD - 06/03/2019 2:51 PM CDT [facility] [place] [address] KASSI KONG :1970 Visit Time:06/03/2019 Your Visit Summary Your Care Team Admitting Physician - DRE POWER MARK, MD Attending Physician - MARIEL MCCRAY MD Primary Care Physician - ALVARADO STILES (REF), -[facility] Referring Physician - MARIEL MCCRAY MD [...] in the future. Where: [place] [address] [place] [address]- Allergies SUMAtriptan (Other Anaphylactic Shock, Other Anaphylactic [...] range between ( 0.0 and 7.0 ) [place] #: 0.44 K/uL -- Normal range between ( 0.16 and 1.00 ) Eos #: 0.28 x10(3)/uL -- Normal range between ( 0.00 and 0.80 ) [place] %: 5.2 % -- Normal range between [...] ) Urine Bilirubin Dipstick: Negative Urine Specific [place]: 1.021 -- Normal range between ( 1.005 [...] stand. This can reduce dizziness. ??? Take vdku-xrc-rktisxo and prescription medicines only as told by [...] 10/01/2006 Document Revised: 03/08/2017 Document Reviewed: 06/14/2016 [employer] Patient Education ?? 2018 [employer] Head Injury, Adult There are many [...] Ask your health care provider for a jrcm-ns-fndv plan for gradually returning to activities. ??? [...] friends, family, a trusted colleague, and network project manager about your injury, symptoms, and restrictions. Have them watch for any new or worsening problems. General instructions ??? Take lkbz-jxk-bbeahmt and prescription medicines only as told by [...] This is often called the RICE strategy. Vtml-les-vtalcen anti-inflammatory medicines may also be recommended for [...] are sitting or lying down. ??? Take oiff-ojq-hnftupg and prescription medicines only as told by [...] 07/11/2006 Document Revised: 02/08/2017 Document Reviewed: 02/16/2016 [employer] Patient Education ?? 2019 [employer] Concussion, Adult A concussion is a [...] are taking any medicines, including prescription medicines, lzcu-nrb-rawhmwz medicines, and natural remedies. Some medicines, such [...] returning to activities. General instructions ??? Take lbbb-cbu-mxclthi and prescription medicines only as told by [...] your teachers, school nurse, school counselor, head wrestling coach, life trainer, or network project manager about your injury, symptoms, and restrictions. Tell [...] 12/21/2004 Document Revised: 09/11/2017 Document Reviewed: 09/11/2017 [employer] Patient Education ?? 2019 [employer]. Emergency Awareness and Preventative Care STROKE [...] Assistance with quitting is available by contacting 1-300-HAYA-NOW. This is a free resource providing counseling, [...] was given the opportunity to ask questions. Patient/Novelty Twister Operator Name: Patient/Novelty Twister Operator Signature: Relationship to Patient: Clinician/Hospital Novelty Twister Operator Signature: Please Provide a Telephone Number Where You Can Be Reached: Is it Permissible To Leave a Message? Date: documented in this encounter Plan of Treatment Not on file documented as of this encounter Visit Diagnoses Not on filedocumented in this encounter
--- OUTSIDE RECORDS SUMMARY | 2025-09-07 07:43 | XMS_ITS | Encounter Summary ---
Author Organization [employer] ([place], [place], [place], [place], [place]) Address [address] [place] [address] Care Team Providers Care Implementation Project Coordinator Name Role Phone Unavailable Primary Care Provider Unavailabl e Encounter Details Date Type Department Care Team (Late st Contact Info) Description 06/22/2021 Transcribed Document [facility] [place] Counts include 234 beds at the [facility] [place] [address] ProviderRikki MD [address] [place] [address] Social History Tobacco Use Types Packs/Day [...] Montoya MD - 06/22/2021 2:03 AM CDT [facility] [address] KASSI KONG :1970 Visit Time:06/21/2021 Your [...] Within 2 to 3 days [facility] [address]- Business (1) Allergies SUMAtriptan (Other Anaphylactic Shock, [...] range between ( 0.0 and 7.0 ) [place] #: 0.52 K/uL -- Normal range between ( 0.16 and 1.00 ) Eos #: 0.24 x10(3)/uL -- Normal range between ( 0.00 and 0.80 ) [place] %: 5.3 % -- Normal range between [...] these instructions at home: Medicines ??? Take ottw-mhf-ajivsre and prescription medicines only as told by [...] provider. Document Revised: 04/03/2019 Document Reviewed: 04/03/2019 [employer] Patient Education ?? 2020 [employer]. Emergency Awareness and Preventative Care STROKE is [...] Assistance with quitting is available by contacting 1-705-GICA-NOW. This is a free resource providing counseling, [...] was given the opportunity to ask questions. Patient/Alarm Mechanic Name: Patient/Alarm Mechanic Signature: Relationship to Patient: Clinician/Hospital Alarm Mechanic Signature: Please Provide a Telephone Number Where You Can Be Reached: Is it Permissible To Leave a Message? Date: documented in this encounter Plan of Treatment Not on file documented as of this encounter Visit Diagnoses Not on filedocumented in this encounter
--- OUTSIDE RECORDS SUMMARY | 2025-09-07 07:43 | XMS_ITS | Encounter Summary ---
Author Organization [employer] ([place], [place], [place], [place], [place]) Address [address] [place] [address] Care Team Providers Care Clinical Registered Nurse Name Role Phone Unavailable Primary Care Provider Unavailabl e Encounter Details Date Type Department Care Team (Late st Contact Info) Description 06/22/2021 Transcribed Document [facility] Family Medicine [facility] [place] [address] ProviderRikki MD [address] [place] [address] [id number] Social History Tobacco Use Types Packs/Day Years [...]
--- OUTSIDE RECORDS SUMMARY | 2025-09-07 07:43 | XMS_ITS | Encounter Summary ---
Author Organization [employer] ([place], [place], [place], [place], [place]) Address [address] [place] [address] Care Team Providers Care Mechanics Supervisor Name Role Phone Unavailable Primary Care Provider Unavailabl e Encounter Details Date Type Department Care Team (Late st Contact Info) Description 06/03/2019 Transcribed Document [facility] Family Medicine [address] [place] [address] ProviderRikki MD [address] [place], [place] [id number] Social History Tobacco Use Types Packs/Day Years [...] EDT DCP GENERIC CODE Tracking Group : [facility] ED MARC GREENWOOD RN - 06/03/2019 [...] Recent Thoughts of Harming/Killing Others : No Customer Care Agent Needed : No MACR GREENWOOD RN - 06/03/2019 10:53 EDT Infectious [...] PNED ; Probability: 0 ; Diagnosis Code: [id number] Height and Weight Height Source : Stated Height Entry Format : [place] Height, Feet : 5 ft(Converted to: 152 cm, 60 Inch) Height, Inches : 3 Inch(Converted to: 0 ft 3 Inch, 7.62 cm) Clinical Height : 160.02 cm Weight Source, ED : Critical estimated dosing weight Weight Entry Format : [place] Weight, Pounds : 220 lb Clinical Dosing Weight : 100 kg Body Surface Area (BSA) : 2.02 m2 Body Mass Index : 39.1 kg/m2 (HI) [place] Body Weight (IBW) : 52.02 kg MARC [...] form. Electronically signed by Giacomo Azar Conversion Transportation Maintenance Supervisor [employer] at 01/28/2023 10:51 PM CDT documented in this encounter Plan of Treatment Not on file documented as of this encounter Visit Diagnoses Not on filedocumented in this encounter
[2025-09-07 10:25] LABS: PHA INR Fingerstick 2.9 (0.9-1.1)
== END 2025-09-07 10:27 ==
LOC: ACC 07:41
PROVIDERS: PCP Family Medicine; Visit Provider Family Medicine
DX: Z79.01 Long term (current) use of anticoagulants (principal)
CPT/HCPCS: 85610; 99211; G0463